=== PATIENT | female | born 1965 | race Caucasian/White ===

== ENCOUNTER 2018-09-12 14:14 | Emergency (ER) | payer MEDICARE, MEDICAID ==
[~2018-09-12] VITALS: Ht 170.2 cm; Wt 106.1 kg
--- NOTE | 2018-09-12 14:45 | ED Upper Extremity ---
General Chief Complaint: Trauma-Non Activation Stated Complaint: FALL; RT HIP/MI WRIST INJ Nursing Triage Note: ARRIVED VIA AMBULATORY WALKING WITHOUT DIFFICULTY. STATES SHE FELL ON THE ICE THIS MORNING CAUSING PAIN IN RIGHT HIP, BILAT HANDS, AND RIGHT KNEE PAIN. Nursing Sepsis Screen: No Definite Risk History of Present Illness Date Seen by Provider: Sep 12, 2018 Time Seen by Provider: 14:29 Initial Comments 53-year-old female who states that she fell about 4 hours ago on the ice. Fell on outstretched hands. She also onto her knees and is now complaining of back pain. She has been able to ambulate without limitation. No bowel or bladder problems. No paresthesias or weakness of her lower extremities. She states that she did not injure her head or have any neck pain. No paresthesias or weakness of her upper extremities. She smokes. Onset: this morning Allergies and Home Medications Allergies Coded Allergies: No Known Drug Allergies (Unverified , 09/12/18) Patient Home Medication List Home Medication List Reviewed: Yes Review of Systems Constitutional: see HPI EENTM: see HPI Respiratory: see HPI Cardiovascular: see HPI Gastrointestinal: no symptoms reported Genitourinary: no symptoms reported Musculoskeletal: see HPI Skin: no symptoms reported Psychiatric/Neurological: No Symptoms Reported Past Zwzbftw-Yitigf-Ckgwbi Hx Past Med/Social Hx: Reviewed Nursing Past Med/Soc Hx Patient Social History Smoking Status: Current Everyday Smoker Recent Foreign Travel: No Contact w/Someone Who Travel: No Recent Infectious Disease Expo: No Physical Exam Vital Signs Vital Signs - First Documented 09/12/18 14:30 Temp 98.0 Pulse 80 Resp 16 B/P (MAP) 126/82 (97) Pulse Ox 98 O2 Delivery Room Air Capillary Refill : Less Than 3 Seconds Height, Weight, BMI Height: 5'7.00" Weight: 234lbs. oz. 106.537456oa; BMI Method:Stated General Appearance: WD/WN, no apparent distress HEENT: PERRL/EOMI, normal ENT inspection, TMs normal, pharynx normal; No scleral icterus (R) Neck: non-tender, full range of motion, supple, normal inspection Cardiovascular: normal peripheral pulses, regular rate, rhythm, no edema, no gallop, no JVD, no murmur Respiratory: normal breath sounds, rhonchi (diffusely) Gastrointestinal: normal bowel sounds, non tender, soft, no organomegaly, no pulsatile mass Back: normal inspection, muscle spasm (right greater than left) Shoulder: normal inspection, non-tender, no evidence of injury Elbow/Forearm: normal inspection, non-tender, no evidence of injury, normal ROM Wrist: Yes normal inspection, Yes no evidence of injury, Yes bone tenderness; No deformity, No ecchymosis; Yes limited ROM Hand: normal inspection, non-tender, no evidence of injury, normal ROM Neurologic/Tendon: normal sensation, normal motor functions, normal tendon functions, responds to pain 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 INDICATION: Fell, back pain. TECHNIQUE: AP, lateral, and spot lateral views were obtained. COMPARISON: There are no prior studies available for comparison. FINDINGS: There are six lumbar-type vertebrae. For the purposes of this exam, the sixth lumbar vertebra was referred to as S1. There may be a mild compression deformity of the superior endplate of L2. If this is a compression deformity, I suspect it is longstanding in nature. However if there is clinical concern regarding an injury to the L2 vertebral body, then MRI would be recommended for further study. No other fracture or acute bony abnormality is identified. There is fairly severe degenerative disc and bony disease at the L4-L5 level. The disc space is narrowed and there is sclerosis of the opposing endplates of L4 and L5. The other intervertebral spaces are fairly well maintained. There is no sign of a paraspinal mass. However, there is an oval 1.5 x 2.2 cm radiopaque density overlying the right upper quadrant. This could be related to a gallstone. This could also be extraneous to the patient. If further evaluation of the right upper quadrant is desired, then ultrasound would be recommended. There is also a well-circumscribed 1.2 x 2.2 cm calcific-like density in the soft tissues lateral to the right ilium. This may be a sequela of prior trauma. This finding could also be secondary to something extraneous to the patient. IMPRESSION: 1. There is no acute bony abnormality noted. 2. The questionable compression deformity of the superior endplate of L2 may be longstanding in nature. If further imaging is desired, then CT would be recommended. 3. There is fairly severe degenerative disc and bony disease at L5-S1. 4. The oval density overlying the right upper quadrant is questionable for cholelithiasis. Recommendations, as above. Dictated on workstation # [id number] Dict: 09/12/18 1523 Trans: 09/12/18 1538 EXAMINATION: Bilateral wrists. INDICATION: Fell. FINDINGS: Three views of each wrist were obtained. There are no prior studies available for comparison. There is no fracture, dislocation, or acute bony abnormality of either wrist joint. There is a well-circumscribed 0.6 x 1.1 cm calcific density adjacent to the distal ulna medially. Most likely, this is a long-standing avulsion fracture of the ulnar styloid. The radiocarpal joints are fairly well maintained. There are two small 2 mm linear radiopaque densities in the soft tissues lateral to the base of the first metacarpal. I suspect these are minute foreign bodies. The soft tissues are otherwise unremarkable. IMPRESSION: 1. There is no evidence for an acute bony abnormality of either wrist. 2. There is a long-standing avulsion fracture of the ulnar styloid. 3. There are two minute radiopaque foreign bodies in the soft tissues adjacent to the lateral aspect of the base of the first metacarpal of the left hand. Dictated on workstation # [id number] Dict: 09/12/18 1521 Trans: 09/12/18 1536 [id number] Interpreted by: STEPHANIE FRAUSTO MD Departure Impression Primary Impression: Strain of wrist, bilateral Additional Impression: Lumbar strain Qualified Codes: S39.012A - Strain of muscle, fascia and tendon of lower back , initial encounter Disposition: 01 HOME, SELF-CARE Condition: Stable Departure-Patient Inst. Referrals: NO,LOCAL PHYSICIAN (PCP) Primary Care Physician recommend follow up in 2-3 days if symptoms continue. Protect as needed. Patient Instructions: Lumbar Muscle Strain (DC), Wrist Sprain (DC) Add. Discharge Instructions: May take ibuprofen as needed for pain. Ice to injured areas as needed. All discharge instructions reviewed with patient and/or family. Voiced understanding. DANIEL HERNANDEZ MD Sep 12, 2018 14:44
[2018-09-12] MEDS ORDERED: OLAN10TA19 (14:47)
[2018-09-12] MEDS ORDERED: ALBUTEROL (14:47)
[2018-09-12] MEDS ORDERED: INSU100I14 (14:47)
[2018-09-12] MEDS ORDERED: ZIPR80CA23 (14:47)
[2018-09-12] MEDS ORDERED: ESCI10TA55 (14:47)
[2018-09-12] MEDS ORDERED: LINA5TAB (14:47)
[2018-09-12] MEDS ORDERED: NFNEB10T (14:47)
--- NOTE | 2018-09-12 15:36 | Diagnostic Imaging Report ---
EXAMINATION: Bilateral wrists. INDICATION: Fell. FINDINGS: Three views of each wrist were obtained. There are no prior studies available for comparison. There is no fracture, dislocation, or acute bony abnormality of either wrist joint. There is a well-circumscribed 0.6 x 1.1 cm calcific density adjacent to the distal ulna medially. Most likely, this is a long-standing avulsion fracture of the ulnar styloid. The radiocarpal joints are fairly well maintained. There are two small 2 mm linear radiopaque densities in the soft tissues lateral to the base of the first metacarpal. I suspect these are minute foreign bodies. The soft tissues are otherwise unremarkable. IMPRESSION: 1. There is no evidence for an acute bony abnormality of either wrist. 2. There is a long-standing avulsion fracture of the ulnar styloid. 3. There are two minute radiopaque foreign bodies in the soft tissues adjacent to the lateral aspect of the base of the first metacarpal of the left hand. Dictated by: Dictated on workstation # [id number]
--- NOTE | 2018-09-12 15:39 | Diagnostic Imaging Report ---
EXAMINATION: Lumbar spine at 2:41 p.m. INDICATION: Fell, back pain. TECHNIQUE: AP, lateral, and spot lateral views were obtained. COMPARISON: There are no prior studies available for comparison. FINDINGS: There are six lumbar-type vertebrae. For the purposes of this exam, the sixth lumbar vertebra was referred to as S1. There may be a mild compression deformity of the superior endplate of L2. If this is a compression deformity, I suspect it is longstanding in nature. However if there is clinical concern regarding an injury to the L2 vertebral body, then MRI would be recommended for further study. No other fracture or acute bony abnormality is identified. There is fairly severe degenerative disc and bony disease at the L4-L5 level. The disc space is narrowed and there is sclerosis of the opposing endplates of L4 and L5. The other intervertebral spaces are fairly well maintained. There is no sign of a paraspinal mass. However, there is an oval 1.5 x 2.2 cm radiopaque density overlying the right upper quadrant. This could be related to a gallstone. This could also be extraneous to the patient. If further evaluation of the right upper quadrant is desired, then ultrasound would be recommended. There is also a well-circumscribed 1.2 x 2.2 cm calcific-like density in the soft tissues lateral to the right ilium. This may be a sequela of prior trauma. This finding could also be secondary to something extraneous to the patient. IMPRESSION: 1. There is no acute bony abnormality noted. 2. The questionable compression deformity of the superior endplate of L2 may be longstanding in nature. If further imaging is desired, then CT would be recommended. 3. There is fairly severe degenerative disc and bony disease at L5-S1. 4. The oval density overlying the right upper quadrant is questionable for cholelithiasis. Recommendations, as above. Dictated by: Dictated on workstation # [id number]
[2018-09-12 15:56] VITALS: BP 126/82
== END 2018-09-12 15:56 | disposition home or self-care (01) ==
LOC: ER FS 14:20
DX: S39.012A Strain of muscle, fascia and tendon of lower back, initial encounter (principal); S66.911A Strain of unspecified muscle, fascia and tendon at wrist and hand level, right hand, initial encounter; S66.912A Strain of unspecified muscle, fascia and tendon at wrist and hand level, left hand, initial encounter; F17.200 Nicotine dependence, unspecified, uncomplicated; W00.0XXA Fall on same level due to ice and snow, initial encounter
CPT/HCPCS: 72100

== ENCOUNTER 2018-09-18 20:55 | Emergency (ER) | payer MEDICARE, MEDICAID ==
[~2018-09-18] VITALS: Ht 170.2 cm; Wt 114.8 kg
[~2018-09-18 20:55] MED LIST: ALBUTEROL; ESCI10TA55; INSU100I14; LINA5TAB; NFNEB10T; OLAN10TA19; ZIPR80CA23
--- OUTSIDE RECORDS SUMMARY | 2018-09-18 21:07 | XMS REPORT | Continuity of Care Document ---
Author Author [facility] Organization [facility] Address Unknown Phone Unavailable Allergies Active Description Code Type Severity Reaction Onset Reported/Identified Relationship to Patient Clinical Status Yes No Known Medication Allergies Drug N/A N/A Yes No Known Drug Allergies [id number] Drug Allergy Unknown N/A 09/12/2018 Medications There is no data. 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, Unspecified 07/05/2010 [facility] POLICE GUARD, HEATHER V15.82 TOBACCOISM 07/05/2010 [facility] POLICE GUARD, HEATHER 278.01 OBESITY MORBID 07/05/2010 [facility] POLICE GUARD, HEATHER 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, Unspecified 07/05/2010 BRANDEE POLICE GUARD, HEATHER V15.82 TOBACCOISM 07/05/2010 [facility] POLICE GUARD, HEATHER 278.01 OBESITY MORBID 07/05/2010 BRANDEE POLICE GUARD, HEATHER 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, Unspecified 07/05/2010 BRANDEE POLICE GUARD, HEATHER V15.82 TOBACCOISM 07/05/2010 BRANDEE POLICE GUARD, HEATHER 278.01 OBESITY MORBID 07/05/2010 BRANDEE POLICE GUARD, HEATHRE 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, Unspecified 07/05/2010 BRANDEE POLICE GUARD, HEATHER V15.82 TOBACCOISM 07/05/2010 [facility] POLICE GUARD, HEATHER 278.01 OBESITY MORBID 07/05/2010 [facility] KYLE, HEATHER 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, Unspecified 07/05/2010 BRANDEE POLICE GUARD, HEATHER V15.82 TOBACCOISM 07/05/2010 BRANDEE POLICE GUARD, HEATHER 278.01 OBESITY MORBID 07/05/2010 BRANDEE POLICE GUARD, HEATHER 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, Unspecified 07/05/2010 BRANDEE POLICE GUARD, HEATHER V15.82 TOBACCOISM 07/05/2010 [facility] POLICE GUARD, MARIANNA 278.01 OBESITY MORBID 07/05/2010 G[facility] POLICE GUARD, MARIANNA 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, Unspecified 07/05/2010 GOVIND POLICE GUARD, MARIANNA V15.82 TOBACCOISM 07/05/2010 GOVIND POLICE GUARD, MARIANNA 278.01 OBESITY MORBID 07/05/2010 G[facility] POLICE GUARD, MARIANNA 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, Unspecified 07/05/2010 GOVIND POLICE GUARD, MARIANNA V15.82 TOBACCOISM 07/07/2010 [facility] POLICE GUARD, HEATHER 280.9 Anemia Hypochromic / Microcytic 07/07/2010 [facility] POLICE GUARD, HEATHER 796.2 Prehypertension 07/07/2010 [facility] POLICE GUARD, HEATHER V04.81 Influenza Vaccine 07/07/2010 BRANDEE POLICE GUARD, HEATHER V68.89 Encounters For Other Specified Administrative Purpose 07/07/2010 [facility] POLICE GUARD, HEATHER V72.31 Routine Pelvic Exam 07/07/2010 [facility] POLICE GUARD, HEATHER 280.9 Anemia Hypochromic / Microcytic 07/07/2010 [facility] POLICE GUARD, HEATHER 796.2 Prehypertension 07/07/2010 [facility] POLICE GUARD, HEATHER V04.81 Influenza Vaccine 07/07/2010 BRANDEE POLICE GUARD, HEATHER V68.89 Encounters For Other Specified Administrative Purpose 07/07/2010 BRANDEE POLICE GUARD, HEATHER V72.31 Routine Pelvic Exam 07/07/2010 BRANDEE POLICE GUARD, HEATHER 280.9 Anemia Hypochromic / Microcytic 07/07/2010 BRANDEE POLICE GUARD, HEATHER 796.2 Prehypertension 07/07/2010 BRANDEE POLICE GUARD, HEATHER V04.81 Influenza Vaccine 07/07/2010 BRANDEE POLICE GUARD, HEATHER V68.89 Encounters For Other Specified Administrative Purpose 07/07/2010 BRANDEE POLICE GUARD, HEATHER V72.31 Routine Pelvic Exam 07/07/2010 [facility] POLICE GUARD, HEATHER 280.9 Anemia Hypochromic / Microcytic 07/07/2010 BRANDEE POLICE GUARD, HEATHER 796.2 Prehypertension 07/07/2010 BRANDEE POLICE GUARD, HEATHER V04.81 Influenza Vaccine 07/07/2010 BRANDEE POLICE GUARD, HEATHER V68.89 Encounters For Other Specified Administrative Purpose 07/07/2010 BRANDEE POLICE GUARD, HEATHER V72.31 Routine Pelvic Exam 07/07/2010 BRANDEE POLICE GUARD, HEATHER 280.9 Anemia Hypochromic / Microcytic 07/07/2010 [facility] POLICE GUARD, HEATHER 796.2 Prehypertension 07/07/2010 [facility] POLICE GUARD, HEATHER V04.81 Influenza Vaccine 07/07/2010 BRANDEE POLICE GUARD, HEATHER V68.89 Encounters For Other Specified Administrative Purpose 07/07/2010 BRANDEE POLICE GUARD, HEATHER V72.31 Routine Pelvic Exam 07/07/2010 BRANDEE POLICE GUARD, HEATHER 280.9 Anemia Hypochromic / Microcytic 07/07/2010 BRANDEE POLICE GUARD, HEATHER 796.2 Prehypertension 07/07/2010 [facility] POLICE GUARD, HEATHER V04.81 Influenza Vaccine 07/07/2010 BRANDEE POLICE GUARD, HEATHER V68.89 Encounters For Other Specified Administrative Purpose 07/07/2010 BRANDEE POLICE GUARD, HEATHER V72.31 Routine Pelvic Exam 07/07/2010 BRANDEE POLICE GUARD, HEATHER 280.9 Anemia Hypochromic / Microcytic 07/07/2010 BRANDEE POLICE GUARD, HEATHER 796.2 Prehypertension 07/07/2010 BRANDEE POLICE GUARD, HEATHER V04.81 Influenza Vaccine 07/07/2010 BRANDEE POLICE GUARD, HEATHER V68.89 Encounters For Other Specified Administrative Purpose 07/07/2010 BRANDEE POLICE GUARD, HEATHER V72.31 Routine Pelvic Exam 07/07/2010 G[facility] POLICE GUARDMARIANNA 280.9 Anemia Hypochromic / Microcytic 07/07/2010 GOVIND POLICE GUARD, MARIANNA 796.2 Prehypertension 07/07/2010 GOVIND POLICE GUARD MARIANNA V04.81 Influenza Vaccine 07/07/2010 GOVIND POLICE GUARD MARIANNA V68.89 Encounters For Other Specified Administrative Purpose 07/07/2010 GOVIND POLICE GUARDMARIANNA V72.31 Routine Pelvic Exam 07/07/2010 GOVIND POLICE GUARDMARIANNA Sunshine 280.9 Anemia Hypochromic / Microcytic 07/07/2010 GOVIND POLICE GUARDMARIANNA Sunshien 796.2 Prehypertension 07/07/2010 GOVIND POLICE GUARDMARIANNA V04.81 Influenza Vaccine 07/07/2010 GOVIND POLICE GUARDMARIANNA V68.89 Encounters For Other Specified Administrative Purpose 07/07/2010 GOVIND POLICE GUARDMARIANNA V72.31 Routine Pelvic Exam 10/20/2010 BRANDEE POLICE GUARD, HEATHER 112.1 Candidiasis, Of Vulva And Vagina 10/20/2010 BRANDEE POLICE GUARD, HEATHER 599.0 Uti 10/20/2010 BRANDEE POLICE GUARD, HEATHER 112.1 Candidiasis, Of Vulva And Vagina 10/20/2010 BRANDEE POLICE GUARD, HEATHER 599.0 Uti 10/20/2010 BRANDEE POLICE GUARD, HEATHER 112.1 Candidiasis, Of Vulva And Vagina 10/20/2010 BRANDEE POLICE GUARD, HEATHER 599.0 Uti 10/20/2010 BRANDEE POLICE GUARD, HEATHER 112.1 Candidiasis, Of Vulva And Vagina 10/20/2010 BRANDEE POLICE GUARD, HEATHER 599.0 Uti 10/20/2010 BRANDEE POLICE GUARD, HEATHER 112.1 Candidiasis, Of Vulva And Vagina 10/20/2010 BRANDEE POLICE GUARD, HEATHER 599.0 Uti 10/20/2010 BRANDEE POLICE GUARD, HEATHER 112.1 Candidiasis, Of Vulva And Vagina 10/20/2010 BRANDEE POLICE GUARD, HEATHER 599.0 Uti 10/20/2010 BRANDEE POLICE GUARD, HEATHER 112.1 Candidiasis, Of Vulva And Vagina 10/20/2010 BRANDEE POLICE GUARD, HEATHER 599.0 Uti 10/20/2010 GOVIND POLICE GUARD, MARIANNA 112.1 Candidiasis, Of Vulva And Vagina 10/20/2010 GOVIND POLICE GUARD, MARIANNA 599.0 Uti 10/20/2010 GOVIND POLICE GUARDENE 112.1 Candidiasis, Of Vulva And Vagina 10/20/2010 GOVIND POLICE GUARD, MARIANNA 599.0 Uti 10/24/2010 [facility] POLICE GUARD, HEATHER 250.00 DIABETES MELLITUS TYPE 2 10/24/2010 BRANDEE POLICE GUARD, HEATHER 466.0 Bronchitis, Acute 10/24/2010 BRANDEE POLICE GUARD, HEATHER 496 PULMONARY OBSTRUCTIVE DISORDERS 10/24/2010 BRANDEE POLICE GUARD, HEATHER 250.00 DIABETES MELLITUS TYPE 2 10/24/2010 BRANDEE POLICE GUARD, HEATHER 466.0 Bronchitis, Acute 10/24/2010 BRANDEE POLICE GUARD, HEATHER 496 PULMONARY OBSTRUCTIVE DISORDERS 10/24/2010 BRANDEE POLICE GUARD, HEATHER 250.00 DIABETES MELLITUS TYPE 2 10/24/2010 BRANDEE POLICE GUARD, HEATHER 466.0 Bronchitis, Acute 10/24/2010 BRANDEE POLICE GUARD, HEATHER 496 PULMONARY OBSTRUCTIVE DISORDERS 10/24/2010 BRANDEE POLICE GUARD, HEATHER 250.00 DIABETES MELLITUS TYPE 2 10/24/2010 BRANDEE POLICE GUARD, HEATHER 466.0 Bronchitis, Acute 10/24/2010 BRANDEE POLICE GUARD, HEATHER 496 PULMONARY OBSTRUCTIVE DISORDERS 10/24/2010 BRANDEE POLICE GUARD, HEATHER 250.00 DIABETES MELLITUS TYPE 2 10/24/2010 BRANDEE POLICE GUARD, HEATHER 466.0 Bronchitis, Acute 10/24/2010 BRANDEE POLICE GUARD, HEATHER 496 PULMONARY OBSTRUCTIVE DISORDERS 10/24/2010 BRANDEE POLICE GUARD, HEATHER 250.00 DIABETES MELLITUS TYPE 2 10/24/2010 BRANDEE POLICE GUARD, HEATHER 466.0 Bronchitis, Acute 10/24/2010 BRANDEE POLICE GUARD, HEATHER 496 PULMONARY OBSTRUCTIVE DISORDERS 10/24/2010 BRANDEE POLICE GUARD, HEATHER 250.00 DIABETES MELLITUS TYPE 2 10/24/2010 BRANDEE POLICE GUARD, HEATHER 466.0 Bronchitis, Acute 10/24/2010 BRANDEE POLICE GUARD, HEATHER 496 PULMONARY OBSTRUCTIVE DISORDERS 10/24/2010 GOVIND POLICE GUARD, MARIANNA 250.00 DIABETES MELLITUS TYPE 2 10/24/2010 GOVIND POLICE GUARD, MARIANNA 466.0 Bronchitis, Acute 10/24/2010 GOVIND POLICE GUARD, MARIANNA 496 PULMONARY OBSTRUCTIVE DISORDERS 10/24/2010 GOVIND POLICE GUARD, MARIANNA 250.00 DIABETES MELLITUS TYPE 2 10/24/2010 GOVIND POLICE GUARD, MARIANNA 466.0 Bronchitis, Acute 10/24/2010 GOVIND POLICE GUARD, MARIANNA 496 PULMONARY OBSTRUCTIVE DISORDERS 05/12/2011 BRANDEE POLICE GUARD, HEATHER 703.0 Ingrowing Nail 05/12/2011 BRANDEE POLICE GUARD, HEATHER 726.91 EXOSTOSIS OF UNSPECIFIED SITE 05/12/2011 BRANDEE POLICE GUARD, HEATHER 703.0 Ingrowing Nail 05/12/2011 BRANDEE POLICE GUARD, HEATHER 726.91 EXOSTOSIS OF UNSPECIFIED SITE 05/12/2011 BRANDEE POLICE GUARD, HEATHER 703.0 Ingrowing Nail 05/12/2011 BRANDEE POLICE GUARD, HEATHER 726.91 EXOSTOSIS OF UNSPECIFIED SITE 05/12/2011 BRANDEE POLICE GUARD, HEATHER 703.0 Ingrowing Nail 05/12/2011 BRANDEE POLICE GUARD, HEATHER 726.91 EXOSTOSIS OF UNSPECIFIED SITE 05/12/2011 BRANDEE POLICE GUARD, HEATHER 703.0 Ingrowing Nail 05/12/2011 BRANDEE POLICE GUARD, HEATHER 726.91 EXOSTOSIS OF UNSPECIFIED SITE 05/12/2011 BRANDEE POLICE GUARD, HEATHER 703.0 Ingrowing Nail 05/12/2011 BRANDEE POLICE GUARD, HEATHER 726.91 EXOSTOSIS OF UNSPECIFIED SITE 05/12/2011 [facility] POLICE GUARD, HEATHER 703.0 Ingrowing Nail 05/12/2011 BRANDEE POLICE GUARD, HEATHER 726.91 EXOSTOSIS OF UNSPECIFIED SITE 05/12/2011 G[facility] POLICE GUARD, MARIANNA 703.0 Ingrowing Nail 05/12/2011 GOVIND POLICE GUARD, MARIANNA 726.91 EXOSTOSIS OF UNSPECIFIED SITE 05/12/2011 GOVIND POLICE GUARD, MARIANNA 703.0 Ingrowing Nail 05/12/2011 GOVIND POLICE GUARD, MARIANNA 726.91 EXOSTOSIS OF UNSPECIFIED SITE 06/02/2011 BRANDEE POLICE GUARD, HEATHER 078.12 Plantar Wart 06/02/2011 BRANDEE POLICE GUARD, HEATHER 078.12 Plantar Wart 06/02/2011 BRANDEE POLICE GUARD, HEATHER 078.12 Plantar Wart 06/02/2011 BRANDEE POLICE GUARD, HEATHER 078.12 Plantar Wart 06/02/2011 BRANDEE POLICE GUARD, HEATHER 078.12 Plantar Wart 06/02/2011 BRANDEE POLICE GUARD, HEATHER 078.12 Plantar Wart 06/02/2011 BRANDEE POLICE GUARD, HEATHER 078.12 Plantar Wart 06/02/2011 GOVIND POLICE GUARD, MARIANNA 078.12 Plantar Wart 06/02/2011 GOVIND POLICE GUARD, MARIANNA 078.12 Plantar Wart 07/05/2011 BRANDEE POLICE GUARD, HEATHER 466.0 ACUTE BRONCHITIS 07/05/2011 BRANDEE POLICE GUARD, HEATHER 466.0 ACUTE BRONCHITIS 07/05/2011 BRANDEE POLICE GUARD, HEATHER 466.0 ACUTE BRONCHITIS 07/05/2011 BRANDEE POLICE GUARD, HEATHER 466.0 ACUTE BRONCHITIS 07/05/2011 BRANDEE POLICE GUARD, HEATHER 466.0 ACUTE BRONCHITIS 07/05/2011 BRANDEE POLICE GUARD, HEATHER 466.0 ACUTE BRONCHITIS 07/05/2011 BRANDEE POLICE GUARD, HEATHER 466.0 ACUTE BRONCHITIS 07/05/2011 GOVIND POLICE GUARD, MARIANNA 466.0 ACUTE BRONCHITIS 07/05/2011 GOVIND POLICE GUARD, MARIANNA 466.0 ACUTE BRONCHITIS 11/20/2011 BRANDEE POLICE GUARD, HEATHER 682.9 CELLULITIS 11/20/2011 BRANDEE POLICE GUARD, HEATHER 682.9 CELLULITIS 11/20/2011 BRANDEE POLICE GUARD, HEATHER 682.9 CELLULITIS 11/20/2011 BRANDEE POLICE GUARD, HEATHER 682.9 CELLULITIS 11/20/2011 BRANDEE POLICE GUARD, HEATHER 682.9 CELLULITIS 11/20/2011 BRANDEE POLICE GUARD, HEATHER 682.9 CELLULITIS 11/20/2011 BRANDEE POLICE GUARD, HEATHER 682.9 CELLULITIS 11/20/2011 GOVIND POLICE GUARD, MARIANNA 682.9 CELLULITIS 11/20/2011 GOVIND POLICE GUARD, MARIANNA 682.9 CELLULITIS 12/22/2011 BRANDEE POLICE GUARD, HEATHER 401.1 ESSENTIAL HYPERTENSION BENIGN 12/22/2011 BRANDEE POLICE GUARD, HEATHER 401.1 ESSENTIAL HYPERTENSION BENIGN 12/22/2011 BRANDEE POLICE GUARD, HEATHER 401.1 ESSENTIAL HYPERTENSION BENIGN 12/22/2011 ALEX IRVIN APRNEN 401.1 ESSENTIAL HYPERTENSION BENIGN 12/22/2011 BRANDEE ULLOANALEXEN 401.1 ESSENTIAL HYPERTENSION BENIGN 12/22/2011 BRANDEE ULLOANALEXEN 401.1 ESSENTIAL HYPERTENSION BENIGN 12/22/2011 BRANDEE ULLOANALEXEN 401.1 ESSENTIAL HYPERTENSION BENIGN 12/22/2011 GOVIND POLICE GUARDMARIANNA 401.1 ESSENTIAL HYPERTENSION BENIGN 12/22/2011 GOVIND POLICE GUARDMARIANNA 401.1 ESSENTIAL HYPERTENSION BENIGN 04/09/2012 BRANDEE POLICE GUARD, HEATHER 272.2 HYPERLIPIDEMIA 04/09/2012 BRANDEEALEX JONES APRNEN V04.81 Need For Prophylactic Vaccination And Inoculation Against Influenza 04/09/2012 BRANDEE POLICE GUARDHEATHER Sunshine 272.2 HYPERLIPIDEMIA 04/09/2012 BRANDEE POLICE GUARD, HEATHER V04.81 Need For Prophylactic Vaccination And Inoculation Against Influenza 04/09/2012 BRANDEE POLICE GUARD, HEATHER 272.2 HYPERLIPIDEMIA 04/09/2012 BRANDEE POLICE GUARD, HEATHER V04.81 Need For Prophylactic Vaccination And Inoculation Against Influenza 04/09/2012 BRANDEE POLICE GUARD, HEATHER 272.2 HYPERLIPIDEMIA 04/09/2012 BRANDEE POLICE GUARD, HEATHER V04.81 Need For Prophylactic Vaccination And Inoculation Against Influenza 04/09/2012 BRANDEE POLICE GUARD, HEATHER 272.2 HYPERLIPIDEMIA 04/09/2012 BRANDEE POLICE GUARD, EHATHER V04.81 Need For Prophylactic Vaccination And Inoculation Against Influenza 04/09/2012 BRANDEE POLICE GUARD, HEATHER 272.2 HYPERLIPIDEMIA 04/09/2012 BRANDEE POLICE GUARD, HEATHER V04.81 Need For Prophylactic Vaccination And Inoculation Against Influenza 04/09/2012 BRANDEE POLICE GUARDHEATHER Sunshine 272.2 HYPERLIPIDEMIA 04/09/2012 BRANDEE POLICE GUARD, HEATHER V04.81 Need For Prophylactic Vaccination And Inoculation Against Influenza 04/09/2012 MARIANNA FAUST APRN 272.2 HYPERLIPIDEMIA 04/09/2012 MARIANNA FAUST APRN V04.81 Need For Prophylactic Vaccination And Inoculation Against Influenza 04/09/2012 GOVIND MARIANNA WRIGHT 272.2 HYPERLIPIDEMIA 04/09/2012 MARIANNA FAUST APRN V04.81 Need For Prophylactic Vaccination And Inoculation Against Influenza 05/14/2012 BRANDEE HEATHER WRIGHT 682.9 Cellulitis/abscess 05/14/2012 BRANDEE POLICE GUARD, HEATHER 682.9 Cellulitis/abscess 05/14/2012 BRANDEE POLICE GUARD, HEATHER 682.9 Cellulitis/abscess 05/14/2012 BRANDEE POLICE GUARD, HEATHER 682.9 Cellulitis/abscess 05/14/2012 BRANDEE POLICE GUARD, HEATHER 682.9 Cellulitis/abscess 05/14/2012 BRANDEE POLICE GUARD, HEATHER 682.9 Cellulitis/abscess 05/14/2012 BRANDEE POLICE GUARD, HEATHER 682.9 Cellulitis/abscess 05/14/2012 GOVIND POLICE GUARD, MARIANNA 682.9 Cellulitis/abscess 05/14/2012 GOVIND POLICE GUARD, MARIANNA 682.9 Cellulitis/abscess 06/24/2012 BRANDEE POLICE GUARD, HEATHER 112.1 Candidiasis, Of Vulva And Vagina 06/24/2012 BRANDEE POLICE GUARD, HEATHER 112.1 Candidiasis, Of Vulva And Vagina 06/24/2012 BRANDEE POLICE GUARD, HEATHER 112.1 Candidiasis, Of Vulva And Vagina 06/24/2012 BRANDEE POLICE GUARD, HEATHER 112.1 Candidiasis, Of Vulva And Vagina 06/24/2012 BRANDEE POLICE GUARD, HEATHER 112.1 Candidiasis, Of Vulva And Vagina 06/24/2012 BRANDEE POLICE GUARD, HEATHER 112.1 Candidiasis, Of Vulva And Vagina 06/24/2012 BRANDEE POLICE GUARD, HEATHER 112.1 Candidiasis, Of Vulva And Vagina 06/24/2012 GOVIND POLICE GUARD, MARIANNA 112.1 Candidiasis, Of Vulva And Vagina 06/24/2012 GOVIND POLICE GUARD, MARIANNA 112.1 Candidiasis, Of Vulva And Vagina 06/28/2012 BRANDEE POLICE GUARD, HEATHER 110.1 Onychomycosis 06/28/2012 BRANDEE POLICE GUARD, HEATHER 703.8 Other Specified Diseases Of Nail 06/28/2012 BRANDEE POLICE GUARD, HEATHER 110.1 Onychomycosis 06/28/2012 BRANDEE POLICE GUARD, HEATHER 703.8 Other Specified Diseases Of Nail 06/28/2012 BRANDEE POLICE GUARD, HEATHER 110.1 Onychomycosis 06/28/2012 BRANDEE POLICE GUARD, HEATHER 703.8 Other Specified Diseases Of Nail 06/28/2012 BRANDEE POLICE GUARD, HEATHER 110.1 Onychomycosis 06/28/2012 BRANDEE POLICE GUARD, HEATHER 703.8 Other Specified Diseases Of Nail 06/28/2012 BRANDEE POLICE GUARD, HEATHER 110.1 Onychomycosis 06/28/2012 BRANDEE POLICE GUARD, HEATHER 703.8 Other Specified Diseases Of Nail 06/28/2012 BRANDEE POLICE GUARD, HEATHER 110.1 Onychomycosis 06/28/2012 BRANDEE POLICE GUARD, HEATHER 703.8 Other Specified Diseases Of Nail 06/28/2012 BRANDEE POLICE GUARD, HEATHER 110.1 Onychomycosis 06/28/2012 BRANDEE POLICE GUARD, HEATHER 703.8 Other Specified Diseases Of Nail 06/28/2012 GOVIND POLICE GUARD, MARIANNA 110.1 Onychomycosis 06/28/2012 GOVIND POLICE GUARD, MARIANNA 703.8 Other Specified Diseases Of Nail 06/28/2012 GOVIND POLICE GUARD, MARIANNA 110.1 Onychomycosis 06/28/2012 GOVIND POLICE GUARD, MARIANNA 703.8 Other Specified Diseases Of Nail 08/21/2012 BRANDEE POLICE GUARD, HEATHER 682.9 Cellulitis/abscess 08/21/2012 BRANDEE POLICE GUARD, HEATHER V72.31 Gynecological Exam 08/21/2012 BRANDEE POLICE GUARD, HEATHER 682.9 Cellulitis/abscess 08/21/2012 BRANDEE POLICE GUARD, HEATHER V72.31 Gynecological Exam 08/21/2012 BRANDEE POLICE GUARD, HEATHER 682.9 Cellulitis/abscess 08/21/2012 BRANDEE POLICE GUARD, HEATEHR V72.31 Gynecological Exam 08/21/2012 BRANDEE POLICE GUARD, HEATHER 682.9 Cellulitis/abscess 08/21/2012 BRANDEE POLICE GUARD, HEATHER V72.31 Gynecological Exam 08/21/2012 BRANDEE POLICE GUARD, HEATHER 682.9 Cellulitis/abscess 08/21/2012 BRANDEE POLICE GUARD, HEATHER V72.31 Gynecological Exam 08/21/2012 BRANDEE POLICE GUARD, HEATHER 682.9 Cellulitis/abscess 08/21/2012 BRANDEE POLICE GUARD, HEATHER V72.31 Gynecological Exam 08/21/2012 BRANDEE POLICE GUARD, HEATHER 682.9 Cellulitis/abscess 08/21/2012 BRANDEE POLICE GUARD, HEATHER V72.31 Gynecological Exam 08/21/2012 GOVIND POLICE GUARD, MARIANNA 682.9 Cellulitis/abscess 08/21/2012 GOVIND POLICE GUARD, MARIANNA V72.31 Gynecological Exam 08/21/2012 GOVIND POLICE GUARD, MARIANNA 682.9 Cellulitis/abscess 08/21/2012 GOVIND POLICE GUARD, MARIANNA V72.31 Gynecological Exam 10/08/2012 BRANDEE POLICE GUARD, HEATHER 466.0 Bronchitis, Acute 10/08/2012 BRANDEE POLICE GUARD, HEATHER 466.0 Bronchitis, Acute 10/08/2012 BRANDEE POLICE GUARD, HEATHER 466.0 Bronchitis, Acute 10/08/2012 BRANDEE POLICE GUARD, HEATHER 466.0 Bronchitis, Acute 10/08/2012 BRANDEE POLICE GUARD, HEATHER 466.0 Bronchitis, Acute 10/08/2012 BRANDEE POLICE GUARD, HEATHER 466.0 Bronchitis, Acute 10/08/2012 BRANDEE POLICE GUARD, HEATHER 466.0 Bronchitis, Acute 10/08/2012 GOVIND POLICE GUARD, MARIANNA 466.0 Bronchitis, Acute 10/08/2012 GOVIND POLICE GUARD, MARIANNA 466.0 Bronchitis, Acute 12/05/2012 BRANDEE POLICE GUARD, HEATHER 599.0 Uti 12/05/2012 BRANDEE POLICE GUARD, HEATHER 599.0 Uti 12/05/2012 BRANDEE POLICE GUARD, HEATHER 599.0 Uti 12/05/2012 BRANDEE POLICE GUARD, HEATHER 599.0 Uti 12/05/2012 BRANDEE POLICE GUARD, HEATHER 599.0 Uti 12/05/2012 BRANDEE POLICE GUARD, HEATHER 599.0 Uti 12/05/2012 BRANDEE POLICE GUARD, HEATHER 599.0 Uti 12/05/2012 GOVIND POLICE GUARD, MARIANNA 599.0 Uti 12/05/2012 GOVIND POLICE GUARD, MARIANNA 599.0 Uti 05/21/2013 BRANDEE POLICE GUARD, HEATHER 285.9 ANEMIA, UNSPECIFIED 05/21/2013 BRANDEE POLICE GUARD, HEATHER 285.9 ANEMIA, UNSPECIFIED 05/21/2013 BRANDEE POLICE GUARD, HEATHER 285.9 ANEMIA, UNSPECIFIED 05/21/2013 BRANDEE POLICE GUARD, HEATHER 285.9 ANEMIA, UNSPECIFIED 05/21/2013 BRANDEE POLICE GUARD, HEATHER 285.9 ANEMIA, UNSPECIFIED 05/21/2013 BRANDEE POLICE GUARD, HEATHER 285.9 ANEMIA, UNSPECIFIED 05/21/2013 BRANDEE POLICE GUARD, HEATHER 285.9 ANEMIA, UNSPECIFIED 05/21/2013 GOVIND POLICE GUARD MARIANNA 285.9 ANEMIA, UNSPECIFIED 08/07/2013 BRANDEE POLICE GUARD, HEATHER 682.5 CELLULITIS AND ABSCESS OF BUTTOCK 08/07/2013 BRANDEE POLICE GUARD, HEATHER 682.5 CELLULITIS AND ABSCESS OF BUTTOCK 08/07/2013 BRANDEE POLICE GUARD, HEATHER 682.5 CELLULITIS AND ABSCESS OF BUTTOCK 08/07/2013 BRANDEE POLICE GUARD, HEATHER 682.5 CELLULITIS AND ABSCESS OF BUTTOCK 08/07/2013 BRANDEE POLICE GUARD, HEATHER 682.5 CELLULITIS AND ABSCESS OF BUTTOCK 08/07/2013 BRANDEE POLICE GUARD, HEATHER 682.5 CELLULITIS AND ABSCESS OF BUTTOCK 08/07/2013 BRANDEE POLICE GUARD, HEATHER 682.5 CELLULITIS AND ABSCESS OF BUTTOCK 12/12/2013 BRANDEE POLICE GUARD, HEATHER 250.02 DIABETES MELLITUS WITHOUT MENTION OF COMPLICATION TYPE II OR UNSPECIFIED TYPE UNCONTROLLED 12/12/2013 BRANDEE POLICE GUARD, HEATHER 250.02 DIABETES MELLITUS WITHOUT MENTION OF COMPLICATION TYPE II OR UNSPECIFIED TYPE UNCONTROLLED 12/12/2013 BRANDEE POLICE GUARD, HEATHER 250.02 DIABETES MELLITUS WITHOUT MENTION OF COMPLICATION TYPE II OR UNSPECIFIED TYPE UNCONTROLLED 12/12/2013 BRANDEE POLICE GUARD, HEATHER 250.02 DIABETES MELLITUS WITHOUT MENTION OF COMPLICATION TYPE II OR UNSPECIFIED TYPE UNCONTROLLED 04/25/2018 Halle Zapata MD N13.1 Hydronephrosis with ureteral stricture, not elsewhere classified 04/25/2018 Halle Zapata MD N13.30 Hydronephrosis, right 04/25/2018 Halle Zapata MD R31.2 Other microscopic hematuria 04/25/2018 Halle Zapata MD R31.9 Hematuria 05/29/2018 Halle Zapata MD 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, right ureter 06/28/2018 Halle Zapata MD K43.9 Hernia, Ventral 06/28/2018 Halle Zapata MD Z68.36 BMI 36-36.9 07/03/2018 Halle Zapata MD E66.01 Morbid obesity due to excess calories 07/03/2018 Halle Zapata MD Z68.38 BMI 38-38.9 07/10/2018 Halle Zapata MD E66.01 Morbid obesity due to excess calories 07/10/2018 Halle Zapata MD Z68.35 BMI 35-35.9 07/11/2018 Halle Zapata MD E66.01 Morbid obesity due to excess calories 07/24/2018 Halle Zapata MD E66.01 Morbid obesity due to excess calories 07/26/2018 Halle Zapata MD E66.01 Morbid obesity due to excess calories 07/26/2018 Halle Zapata MD T88.8xxA Other specified complications of surgical and medical care, not elsewhere classified, initial encounter 09/04/2018 Halle Zapata MD E66.01 Morbid obesity due to excess calories 09/04/2018 Halle Zapata MD Z68.36 BMI 36-36.9 09/05/2018 Halle Zapata MD E66.01 Morbid obesity due to excess calories 09/12/2018 DANIEL HERNANDEZ MD, Ot F17.200 NICOTINE DEPENDENCE, UNSPECIFIED, UNCOMP 09/12/2018 DANIEL HERNANDEZ MD, Ot M54.5 LOW BACK PAIN 09/12/2018 DANIEL HERNANDEZ MD, Ot S39.012A STRAIN OF MUSCLE, FASCIA AND TENDON OF L 09/12/2018 DANIEL HERNANDEZ MD, Ot S66.911A STRAIN OF UNSP MUSC/FASC/TEND AT WRS/HND 09/12/2018 DANIEL HERNANDEZ MD, Ot S66.912A STRAIN OF UNSP MUSC/FASC/TEND AT WRS/HND 09/12/2018 DANIEL HERNANDEZ MD, Ot W00.0XXA FALL ON SAME LEVEL DUE TO ICE AND SNOW, 09/13/2018 DANIEL HERNANDEZ MD, Ot F17.200 NICOTINE DEPENDENCE, UNSPECIFIED, UNCOMP 09/13/2018 DANIEL HERNANDEZ MD, Ot M54.5 LOW BACK PAIN 09/13/2018 DANIEL HERNANDEZ MD, Ot S39.012A STRAIN OF MUSCLE, FASCIA AND TENDON OF L 09/13/2018 MARY BATEMAN, DANIEL Roberson Ot S66.911A STRAIN OF UNSP MUSC/FASC/TEND AT WRS/HND 09/13/2018 DANIEL HERNANDEZ MD Ot S66.912A STRAIN OF UNSP MUSC/FASC/TEND AT WRS/HND 09/13/2018 DANIEL HERNANDEZ MD Ot W00.0XXA FALL ON SAME LEVEL DUE TO ICE AND SNOW, Procedures Code Description [place] [address] GLUCOSE 05/08/2013 13773 HEMOGLOBIN A1C 05/08/2013 G0008 ADMIN FEE (MEDICARE) INFLUENZA 05/14/2013 18905 CBC - CBC WITH DIFF - LC 05/15/2013 82339 COMP - COMPREHENSIVE PANEL - LC 05/15/2013 83058 LIPID - LIPID PANEL - LC 05/15/2013 97411 TSH - TSH - LC 05/15/2013 43074 MALB - MICROALBUMIN - LC 05/15/2013 76656 GLUCOSE 08/11/2013 34026 HEMOGLOBIN A1C 08/11/2013 14503 CBC WITH DIFF 08/12/2013 35693 GLUCOSE 10/07/2013 4000F TOBACCO USE TXMNT COUNSELING 10/13/2013 77068 PULSE OXIMETRY 12/12/2013 A4614 PEAK FLOW 12/12/2013 42054 GLUCOSE 12/12/2013 12239 HEMOGLOBIN A1C 12/12/2013 Pulmonary Pulmonary Function Test 01/13/2014 A4614 PEAK FLOW 02/10/2014 [id number] PULSE OXIMETRY 02/10/2014 [id number] GLUCOSE 02/10/2014 Endocrino Endocrinology 02/13/2014 Pulmonary Pulmonology, Pulmonology 03/13/2014 [id number] PULSE OXIMETRY 04/14/2014 A4614 PEAK FLOW 04/14/2014 Results Test Result Range TRICHOMONAS RAPID ANTIGEN - 09/02/14 09:00 TRICHOMONAS RAPID ANTIGEN NEGATIVE NEGATIVE CHLAMYDIA TRACH. BY AMP DNA - 09/02/14 09:00 CHLAMYDIA TRACH. BY AMP DNA NEGATIVE NEGATIVE HUMAN PAPILLOMAVIRUS - 09/02/14 09:00 HPV RESULT POSITIVE NEGATIVE PAP LIQUID PAP SCREENING - 09/02/14 09:00 PAP RESULT ASCUS NEGATIVE CULTURE GENITAL - 09/02/14 09:00 SOURCE SOURCE: VAGINAL REQUISITION NOTE REQUISITION NOTE: NONE CULTURE RESULTS CULTURE RESULTS: AND SCANT NORMAL GENITAL TRACT REGINALD A REPORT STATUS REPORT STATUS: 09/05/2014 FINAL CBC WITH DIFF - 09/02/14 12:45 WBC 8.7 10*3/uL 4.0-10.8 RBC 4.62 10*6/uL 4.20-5.40 HGB 11.9 g/dL 12.0-16.0 HCT 38.7 % 37-47 MCV 84 fL 81-99 MCH 26 pg 26-34 MCHC 31 g/dL 31-37 PLATELET COUNT 254 10*3/uL 150-400 RDWCV 18.6 % 11.5-14.5 DIFF TYPE AUTOMATED DIFF NEUTROPHIL % 66 % 36-66 LYMPHOCYTE % 26 % 24-44 MONOCYTE % 6 % 1-10 EOSINOPHIL % 1 % 0-6 BASOPHIL % 1 % 0-2 ABS. NEUTROPHILS 5.8 10*3/uL 1.55-7.13 ABS. LYMPHOCYTES 2.3 10*3/uL 1.0-4.8 ABS. MONOCYTES 0.5 10*3/uL 0.4-1.08 ABS. EOSINOPHILS 0.1 10*3/uL 0.0-0.65 ABS. BASOPHILS 0.1 10*3/uL 0.0-0.11 ABSOLUTE NUCLEATED RBC 0.10 10*3/uL COMPREHENSIVE METABOLIC PANEL - 09/02/14 12:45 POTASSIUM 4.6 mmol/L 3.5-5.1 CALCIUM 9.5 mg/dL 8.6-10.6 GLUCOSE 154 mg/dL 70-115 BUN 13 mg/dL 8-22 CREATININE 1.0 mg/dL 0.6-1.1 SODIUM 141 mmol/L 136-145 CHLORIDE 106 mmol/L 98-110 CO2 25 mmol/L 22-29 GFR ESTIMATED NOT AFR/AM 59 GFR ESTIMATED IF AFR/AM >60 ALT-SGPT 15 U/L 0-55 AST-SGOT 13 U/L 5-34 TOTAL PROTEIN,SERUM 7.6 g/dL 6-8.3 ALBUMIN 4.3 g/dL 3.6-5.3 ALKALINE PHOSPHATASE 90 U/L 40-150 TOTAL BILIRUBIN 0.3 mg/dL 0.2-1.2 ANION GAP 10 5-15 GLOBULIN, CALCULATED 3.3 g/dL A/G RATIO 1.3 ratio 1-1.8 LIPID PANEL W/REFLEX LDL - 09/02/14 12:45 TRIGLYCERIDES 174 mg/dL 20-170 CHOLESTEROL 239 mg/dL 140-200 HDL 38 mg/dL 35-60 LDL 166 mg/dL 60-130 TSH WITH REFLEX TO FREE T4 - 09/02/14 12:45 TSH 2.60 m[iU]/mL 0.35-4.90 HEMOGLOBIN A1C - 09/02/14 12:45 HEMOGLOBIN A1C 7.3 % <5.6 ESTIMATED AVERAGE GLUCOSE 163 mg/dL COMPREHENSIVE METABOLIC PANEL - 10/15/14 14:35 POTASSIUM 4.5 mmol/L 3.5-5.1 CALCIUM 9.4 mg/dL 8.6-10.6 GLUCOSE 177 mg/dL 70-115 BUN 11 mg/dL 8-22 CREATININE 0.9 mg/dL 0.6-1.1 SODIUM 140 mmol/L 136-145 CHLORIDE 107 mmol/L 98-110 CO2 23 mmol/L 22-29 GFR ESTIMATED NOT AFR/AM >60 GFR ESTIMATED IF AFR/AM >60 ALT-SGPT 13 U/L 0-55 AST-SGOT 11 U/L 5-34 TOTAL PROTEIN,SERUM 7.4 g/dL 6-8.3 ALBUMIN 4.2 g/dL 3.6-5.3 ALKALINE PHOSPHATASE 91 U/L 40-150 TOTAL BILIRUBIN 0.2 mg/dL 0.2-1.2 ANION GAP 10 5-15 GLOBULIN, CALCULATED 3.2 g/dL A/G RATIO 1.3 ratio 1-1.8 Encounters ACCT No. Visit Date/Time Discharge Status Pt. Type Provider Facility Loc./Unit Complaint [id number] 09/16/2018 13:19:06 ACT Unknown Halle Zapata MD [id number] 08/26/2018 07:22:56 08/26/2018 23:59:59 DIS Outpatient DANAY SORIA V [facility] [id number] 05/30/2018 08:41:17 05/30/2018 23:59:59 DIS Outpatient LINDA ZAPATA [facility] [id number] 04/25/2018 12:24:37 04/25/2018 23:59:59 CLS Preadmit LINDA ZAPATA [facility] ops [id number] 08/06/2018 13:35:03 Document Registration [id number] 07/05/2018 09:35:35 ACT V AMADOU ROBERT [facility] [id number] 06/18/2018 06:13:13 Inpatient JODILINDA Halle [facility] ops [id number] 09/12/2018 14:20:00 09/12/2018 15:56:00 DIS Emergency DANIEL HERNANDEZ MD [facility] ER FS FALL; RT HIP/MI WRIST INJ [id number] 09/18/2018 20:56:00 ACT Emergency NOEL DICK DO [facility] ER FS HIGH BLOOD SUGAR, SOB [facility] 10/15/2014 15:34:45 ACT Document Registration [id number] 04/14/2014 08:59:00 04/14/2014 11:05:00 DIS Outpatient HEATHER IRVIN APRN [id number] 02/10/2014 09:57:00 02/10/2014 23:59:59 CLS Outpatient HEATHER IRVIN APRN [id number] 02/10/2014 09:57:00 02/10/2014 23:59:59 CLS Outpatient HEATHER IRVIN APRN [id number] 12/12/2013 10:38:00 12/12/2013 23:59:59 CLS Outpatient HEATHER IRVIN APRN [id number] 10/07/2013 14:37:00 10/13/2013 20:05:00 DIS Outpatient HEATHER IRVIN APRN [id number] 10/07/2013 14:37:00 10/07/2013 23:59:59 CLS Outpatient HEATHER IRVIN APRN [id number] 08/11/2013 10:11:00 08/11/2013 13:49:00 DIS Outpatient HEATHER IRVIN APRN [id number] 05/08/2013 09:56:00 05/08/2013 23:59:59 CLS Outpatient MARIANNA FAUST APRN [id number] 01/08/2013 08:25:00 01/08/2013 23:59:59 CLS Outpatient MARIANNA FAUST APRN [id number] 10/15/2014 15:34:45 10/15/2014 23:59:00 DIS Outpatient SONY CAMPO [facility] [id number] 08/12/2014 12:31:00 08/12/2014 14:34:00 DIS Emergency [facility] FED [id number] 06/21/2014 16:47:00 06/21/2014 17:52:00 DIS [facility] FED [id number] 09/02/2014 00:00:00 Document Registration
[2018-09-18] MEDS ORDERED: NS IV 1000 ML 1,000 ML IV STA ×2 (21:36→23:05)
[2018-09-18 22:22] LABS: HEMOGLOBIN 11.2 G/DL (11.5-16.0); MEAN PLATELET VOLUME 10.8 FL (7.4-10.4); RED CELL DISTRIBUTION WIDTH 18.1 % (10.0-14.5)
--- NOTE | 2018-09-18 22:42 | NUR ---
Pt. is up to the bathroom to void.
[2018-09-18] MEDS ORDERED: IOPAMIDOL 61% 100 ML (ISOVUE 300) VIAL IV ONE (22:45)
[2018-09-18] MEDS ORDERED: CATHETER FLUSH 10 ML SYR IV PRN (22:45)
[2018-09-18 22:48] LABS: BUN/CREATININE RATIO 19; CARBON DIOXIDE 24 MMOL/L (21-32); CHLORIDE 90 MMOL/L (98-107); CREATININE SERUM 1.11 MG/DL (0.60-1.30); GFR ESTIMATED 52; POTASSIUM 5.6 MMOL/L (3.6-5.0); SODIUM 128 MMOL/L (135-145)
[2018-09-18 22:49] LABS: CALCIUM 9.3 MG/DL (8.5-10.1); GLUCOSE 786 MG/DL (70-105)
[2018-09-18 22:50] LABS: ALANINE AMINOTRANSFERASE 15 U/L (0-55); ALBUMIN 3.9 GM/DL (3.2-4.5); ALKALINE PHOSPHATASE 167 U/L (40-136); BILIRUBIN,TOTAL 0.2 MG/DL (0.1-1.0); LIPASE 89 U/L (8-78); TOTAL PROTEIN 7.8 GM/DL (6.4-8.2)
[2018-09-18] MEDS ORDERED: inSUlin (REGULAR) HUMAN 1 UNIT/0.01 ML (CHARGE PER UNIT) IV STA (23:05)
--- NOTE | 2018-09-18 23:10 | ED General ---
General Chief Complaint: Respiratory Problems Stated Complaint: HIGH BLOOD SUGAR, SOB Nursing Triage Note: Pt. c/o being SOB, having abd. pain, light headed always thirsty and having her 1st chemo treatment today. Pt. stated her blood sugar was unreadable at home, as it is here as well. Nursing Sepsis Screen: No Definite Risk History of Present Illness Date Seen by Provider: Sep 18, 2018 Time Seen by Provider: 21:28 This is a 53-year-old female with a history of urinary tract cancer her and diabetes here for hyperglycemia as well as right sided abdominal pain. She had chemotherapy today, and was treated with steroids during that treatment. She says that her blood sugar reading at home was "high" just today, but for the last few days it's been approximately normal. She feels thirsty, and she is also having waxing and waning diffuse right sided abdominal pain that radiates around to the right side of the back. No weakness numbness or tingling. No vomiting or change in bowel movements or change in urination. No fever or chills. No chest pain or shortness of breath. Allergies and Home Medications Allergies Coded Allergies: No Known Drug Allergies (Unverified , 09/18/18) Patient Home Medication List Home Medication List Reviewed: Yes Review of Systems Review of Systems Constitutional: see HPI EENTM: no symptoms reported Respiratory: no symptoms reported Cardiovascular: no symptoms reported Gastrointestinal: see HPI Genitourinary: no symptoms reported Musculoskeletal: no symptoms reported Skin: no symptoms reported Psychiatric/Neurological: No Symptoms Reported Hematologic/Lymphatic: No Symptoms Reported Immunological/Allergic: no symptoms reported Past Ugtxuwn-Esaeef-Qlxdjm Hx Patient Social History Drug of Choice: POT Recent Foreign Travel: No Contact w/Someone Who Travel: No Recent Infectious Disease Expo: No Recent Hopitalizations: No Physical Abuse: No Sexual Abuse: No Fear: No Past Medical History Surgeries: Yes (X1 KIDNEY ET PART OF URETER, AND BLADDER REMOVED DUE TO CA. HERNIA, ) Adenoidectomy, Gallbladder, Hysterectomy, Tonsillectomy, Tubal Ligation Respiratory: No Asthma, COPD, Emphysema Cardiac: Yes Hypertension Neurological: No Genitourinary: Yes (PART OF KIDNEY REMOVED) Endocrine: Yes Diabetes, Non-Insulin dep Cancer: Yes (URETER) Bladder, Kidney Integumentary: No Physical Exam Vital Signs Vital Signs - First Documented 09/18/18 21:19 Temp 97.8 Pulse 99 Resp 18 B/P (MAP) 132/86 (101) Pulse Ox 93 O2 Flow Rate 2.00 Capillary Refill : Less Than 3 Seconds Height, Weight, BMI Height: 5'7.00" Weight: 253lbs. oz. 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 Norm as Tested; No Abnormal Gait Skin: Warm/Dry Progress/Results/Core Measures Suspected Sepsis Recent Fever Within 48 Hours: No Infection Criteria Present: None New/Unexplained Altered Menta: No Sepsis Screen: No Definite Risk SIRS Temperature:97.8 Pulse: 99 Respiratory Rate: 18 Laboratory Tests 09/18/18 22:05: White Blood Count 8.0 Blood Pressure 132 /86 Mean: 101 Laboratory Tests 09/18/18 22:05: Creatinine 1.11, Platelet Count 269, Total Bilirubin 0.2 09/19/18 00:50: Creatinine 0.98 Results/Orders Lab Results Laboratory Tests Test 09/18/18 21:24 09/18/18 22:05 09/19/18 00:34 09/19/18 00:50 Range/Units Glucometer > 600 *H > 600 *H 70-110 MG/DL White Blood Count 8.0 4.3-11.0 10^3/uL Red Blood Count 4.31 L 4.35-5.85 10^6/uL Hemoglobin 11.2 L 11.5-16.0 G/DL Hematocrit 37 35-52 % Mean Corpuscular Volume 847 H 80-99 FL Mean Corpuscular Hemoglobin 26 25-34 PG Mean Corpuscular Hemoglobin Concent 31 L 32-36 G/DL Red Cell Distribution Width 18.1 H 10.0-14.5 % Platelet Count 269 130-400 10^3/uL Mean Platelet Volume 10.8 H 7.4-10.4 FL Sodium Level 128 L 128 L 135-145 MMOL/L Potassium Level 5.6 H 4.7 3.6-5.0 MMOL/L Chloride Level 90 L 92 L 98-107 MMOL/L Carbon Dioxide Level 24 20 L 21-32 MMOL/L Anion Gap 14 16 H 5-14 MMOL/L Blood Urea Nitrogen 21 H 22 H 7-18 MG/DL Creatinine 1.11 0.98 0.60-1.30 MG/DL Estimat Glomerular Filtration Rate 52 60 BUN/Creatinine Ratio 19 22 Glucose Level 786 *H 680 *H 70-105 MG/DL Calcium Level 9.3 8.6 8.5-10.1 MG/DL Corrected Calcium 9.4 8.5-10.1 MG/DL Total Bilirubin 0.2 0.1-1.0 MG/DL Aspartate Amino Transf (AST/SGOT) 13 5-34 U/L Alanine Aminotransferase (ALT/SGPT) 15 0-55 U/L Alkaline Phosphatase 167 H 40-136 U/L Troponin T < 6 <=10 NG/L Total Protein 7.8 6.4-8.2 GM/DL Albumin 3.9 3.2-4.5 GM/DL Lipase 89 H 8-78 U/L Test 09/19/18 03:58 Range/Units Glucometer 465 *H 70-110 MG/DL My Orders Orders - NOEL DICK DO Urinalysis (09/18/18 21:36) Ct Abd/Pelv W (Appendicitis) (09/18/18 21:36) Ekg Tracing (09/18/18 21:36) Troponin T (09/18/18 21:36) Cbc No Diff (09/18/18 21:36) Comprehensive Metabolic Panel (09/18/18 21:36) Lipase (09/18/18 21:36) Ns Iv 1000 Ml (Sodium Chloride 0.9%) (09/18/18 21:36) Urine Culture (09/18/18 21:36) Iopamidol 61% Injection (Isovue 300 61% (09/18/18 22:45) Sodium Chloride Flush (Catheter Flush Sy (09/18/18 22:45) Ns Iv 1000 Ml (Sodium Chloride 0.9%) (09/18/18 23:05) Insulin (Regular) Human (Humulin R (Per (09/18/18 23:05) Chest 1 View Ap/Pa Only (09/18/18 23:19) Albuterol Pre-Mix Nebs (Rt) (Proventil (09/18/18 23:40) Svn Small Volume Nebulizer (09/18/18 23:40) Basic Metabolic Panel (09/19/18 00:40) Insulin (Regular) Human (Humulin R (Per (09/19/18 01:37) Ns Iv 1000 Ml (Sodium Chloride 0.9%) (09/19/18 01:39) Medications Given in ED Current Medications Medications Dose Ordered Sig/Yoselyn Route Start Time Stop Time Status Last Admin Dose Admin Iopamidol 50 ml ONCE ONCE IV 09/18/18 22:45 09/19/18 03:52 DC 09/18/18 23:06 50 ML Sodium Chloride 10 ml NEEDED PRN IV 09/18/18 22:45 09/18/18 23:06 10 ML Vital Signs/I&O 09/18/18 21:19 Temp 97.8 Pulse 99 Resp 18 B/P (MAP) 132/86 (101) Pulse Ox 93 O2 Flow Rate 2.00 Capillary Refill : Less Than 3 Seconds Blood Pressure Mean: 101 Progress Note #1: Progress Note This is a 53-year-old female with a history of urinary tract cancer, status post chemotherapy today, here with hyperglycemia and issues with ongoing right flank pain for some period of time. Abdomen is benign however given her history we will obtain a CT of the abdomen and pelvis with IV contrast. We will check a chemistry panel, we will treat with fluids and we will treat with insulin once potassium has returned. Progress Note #2: Progress Note CT shows low-density collection in the right lower quadrant abdominal wall that is concerning for an abscess. When I examined the patient there is no overlying erythema, no fluctuance, no induration, there is a well-healed surgical incision , there is only mild tenderness. An abscess clinically seems less likely. She says that she would likely be able to follow-up with her surgeon tomorrow if she is able to be discharged. Progress Note #3: Progress Note Despite 2 L of saline and 10 units of IV insulin patient's blood sugar is still severely elevated. We will give 2 more liters of saline and 15 units of IV insulin now. We still await urinalysis, apparently patient has urinated but did not give a specimen. Progress Note #4: Progress Note Blood glucose is improving although still significantly elevated. Patient has been in relating that before to the bathroom but she is feeling somewhat lightheaded and she actually just said of near syncope where she needed to lie down on the ground. She obviously cannot go home. Admission at the facility where she had her surgeries is most appropriate as she can also be evaluated by the surgeon for this possible abdominal wall abscess seen on CT. Again she is not having fevers, no leukocytosis, and her clinical exam is not highly suggestive of an abscess and so I had deferred empiric antibiotics to this point. Of note [facility] is on diversion right now and so would not have been an option. I have paged out the hospitalist Dr. Cesar at [facility] and I await a call back as of 4:10 AM. Progress Note #5: Progress Note Patient's surgeon Dr. Lara and hospitalist Dr. Cesar recommended to the transfer center that patient be sent to [place] as she would likely need a higher level of care than what is available at their facility. I have paged [facility] and await callback. Diagnostic Imaging Diagonstic Imaging: Xray Comments EP interpretation: Trachea is midline allowing for mild rotation. No obvious bony abnormality. Cardiomediastinal silhouette is normal. Diaphragmatic borders are sharp, costophrenic angles are sharp. There is poor with the tip at the cavoatrial junction. No pneumothoraces or focal infiltrates. Reviewed: Reviewed by Me Critical Care Note Critical Care Start Time: 01:44 Stop Time: 02:19 Total Time (minutes) 35 Progress Critical care time is exclusive of time spent on separately billable procedures. Departure Impression Primary Impression: Hyperglycemia Additional Impressions: Pre-syncope Abdominal wall abscess Disposition: XFER SHT-TRM HOSP Condition: Stable Transfer Time Spoke to Accepting Phy: 05:50 Transfer Progress Notes Pt accepted at [facility] by Dr Agarwal Method of Transfer: EMS Departure-Patient Inst. Referrals: NO,LOCAL PHYSICIAN (PCP) Primary Care Physician NOEL DICK DO Sep 18, 2018 23:10
[2018-09-18] MEDS ORDERED: RT-ALBUTEROL SULF 2.5 MG/3 ML PRE-MIX VIAL INH STA (23:40)
--- NOTE | 2018-09-19 00:40 | NUR ---
This RN rechecked the blood sugar by poc and it was high. Doctor notified and a new order was written.
[2018-09-19 01:28] LABS: CREATININE SERUM 0.98 MG/DL (0.60-1.30); POTASSIUM 4.7 MMOL/L (3.6-5.0)
[2018-09-19 01:31] LABS: CALCIUM 8.6 MG/DL (8.5-10.1)
[2018-09-19] MEDS ORDERED: inSUlin (REGULAR) HUMAN 1 UNIT/0.01 ML (CHARGE PER UNIT) IV STA (01:37)
[2018-09-19] MEDS ORDERED: NS IV 1000 ML 1,000 ML IV STA (01:39)
--- NOTE | 2018-09-19 03:07 | NUR ---
Pt. was walking to the bathroom and almost fell grabbing the er1 door. She was assisted to the bathroom with a wheelchair. She has been incontinent 3 times.
--- NOTE | 2018-09-19 04:09 | NUR ---
Pt. blood sugar was 465. She was assisted to the bathroom became dizzy and was assisted to the floor. Doctor aware and the patient will be transferred to [facility].
--- NOTE | 2018-09-19 05:06 | NUR ---
[facility] declined to take the patient at this time so the doctor talked with the patient and the patient will go to [facility].
--- NOTE | 2018-09-19 05:44 | NUR ---
Pt. assisted to the bathroom via wheelchair. Pt will be going to [facility].
--- NOTE | 2018-09-19 07:30 | NUR ---
Pt's BS at time of discharge 444.
[2018-09-19 07:31] VITALS: BP 143/75
--- NOTE | 2018-09-19 07:38 | Diagnostic Imaging Report ---
INDICATION: Shortness of breath. FINDINGS: Heart size is normal. There is some minimal venous congestion. The mediastinum is unremarkable. There is no pleural effusion or pneumothorax. Evpbot-q-ralq catheter overlies the left hemithorax. IMPRESSION: Mild central pulmonary venous congestion. Dictated by: Dictated on workstation # [id number]
--- NOTE | 2018-09-19 07:42 | Diagnostic Imaging Report ---
PROCEDURE: CT abdomen and pelvis with contrast, rule out appendicitis. TECHNIQUE: Multiple contiguous axial images were obtained through the abdomen and pelvis after the administration of intravenous contrast. INDICATION: Shortness of breath and abdominal pain No prior examinations are available for comparison. FINDINGS: Heart size is normal. The lung bases are clear. There may be some mild fatty infiltration of the liver. Gallbladder is surgically absent. There is no biliary ductal dilatation. Spleen is normal. Pancreas, adrenal glands and left kidney are normal in appearance. Right kidney appears to be surgically absent. Aorta is nonaneurysmal. Bowel gas pattern is nonspecific. There is a complex fluid collection containing some gas bubbles anterior to the right rectus abdominis muscle inferiorly. This measures roughly 10 cm transverse by 2.2 cm in thickness. Questionable 9 mm mass in the bladder. There is no ascites. There is no free air. There are no focal inflammatory changes. Specifically there is no definitive CT evidence of appendicitis. There are degenerative changes in the spine. IMPRESSION: Complex low-density fluid collection containing small amount of gas along the anterior aspect of the rectus abdominis muscle in the right lower quadrant. This is suspect for abscess. Questionable 9 mm soft tissue density extending off the superior anterior aspect of the bladder wall. Malignant neoplasm cannot be excluded. Recommend further evaluation with cystoscopy and/or cystogram. Mildly fatty infiltration of the liver. No other acute abnormality of the abdomen or pelvis. Specifically there is no CT evidence of appendicitis. Dictated by: Dictated on workstation # [id number]
== END 2018-09-19 07:30 | disposition short-term general hospital (02) ==
LOC: EDUNIT# 20:55 → ER FS 20:56
DX: E11.65 Type 2 diabetes mellitus with hyperglycemia (principal); R55 Syncope and collapse; L02.211 Cutaneous abscess of abdominal wall; C67.9 Malignant neoplasm of bladder, unspecified; J43.9 Emphysema, unspecified; I10 Essential (primary) hypertension; Z85.528 Personal history of other malignant neoplasm of kidney; Z92.21 Personal history of antineoplastic chemotherapy; Z98.890 Other specified postprocedural states; Z90.89 Acquired absence of other organs; Z90.710 Acquired absence of both cervix and uterus; Z98.51 Tubal ligation status
CPT/HCPCS: 36415; 71045; 74177; 80048; 80053; 82962; 83690; 84484; 85027; 87088

== ENCOUNTER 2018-10-13 17:00 | Emergency (ER) | payer MEDICARE, MEDICAID ==
[~2018-10-13] VITALS: Ht 170.2 cm; Wt 105.2 kg
--- OUTSIDE RECORDS SUMMARY | 2018-10-13 17:14 | XMS REPORT | Continuity of Care Document ---
Author Author [facility] Organization [facility] Address Unknown Phone Unavailable Allergies Active Description Code Type Severity Reaction Onset Reported/Identified Relationship to Patient Clinical Status Yes No Known Medication Allergies Drug N/A N/A Yes No Known Drug Allergies [id number] Drug Allergy Unknown N/A 09/18/2018 Medications There is no data. 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, Unspecified 07/05/2010 [facility] KYLE, HEATHER V15.82 TOBACCOISM 07/05/2010 [facility] KYLE, HEATHER 278.01 OBESITY MORBID 07/05/2010 [facility] KYLE, HEATHER 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, Unspecified 07/05/2010 [facility] SERVICE ATTENDANT, HEATHER V15.82 TOBACCOISM 07/05/2010 [facility] SERVICE ATTENDANT, HEATHER 278.01 OBESITY MORBID 07/05/2010 [facility] SERVICE ATTENDANT, HEATHER 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, Unspecified 07/05/2010 BRANDEE SERVICE ATTENDANT, HEATHER V15.82 TOBACCOISM 07/05/2010 [facility] SERVICE ATTENDANT, HEATHER 278.01 OBESITY MORBID 07/05/2010 BRANDEE SERVICE ATTENDANT, HEATHER 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, Unspecified 07/05/2010 BRANDEE SERVICE ATTENDANT, HEATHER V15.82 TOBACCOISM 07/05/2010 BRANDEE SERVICE ATTENDANT, HEATHER 278.01 OBESITY MORBID 07/05/2010 BRANDEE SERVICE ATTENDANT, HEATHER 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, Unspecified 07/05/2010 BRANDEE SERVICE ATTENDANT, HEATHER V15.82 TOBACCOISM 07/05/2010 [facility] SERVICE ATTENDANT, HEATHER 278.01 OBESITY MORBID 07/05/2010 [facility] KYLE, HEATHER 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, Unspecified 07/05/2010 BRANDEE SERVICE ATTENDANT, HEATHER V15.82 TOBACCOISM 07/05/2010 BRANDEE SERVICE ATTENDANT, HEATHER 278.01 OBESITY MORBID 07/05/2010 BRANDEE SERVICE ATTENDANT, HEATHER 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, Unspecified 07/05/2010 BRANDEE SERVICE ATTENDANT, HEATHER V15.82 TOBACCOISM 07/05/2010 [facility] SERVICE ATTENDANT, MARIANNA 278.01 OBESITY MORBID 07/05/2010 GOVIND SERVICE ATTENDANT, MARIANNA 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, Unspecified 07/05/2010 GOVIND SERVICE ATTENDANT, MARIANNA V15.82 TOBACCOISM 07/05/2010 GOVIND SERVICE ATTENDANT, MARIANNA 278.01 OBESITY MORBID 07/05/2010 GOVIND SERVICE ATTENDANT, MARIANNA 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, Unspecified 07/05/2010 GOVIND SERVICE ATTENDANT, MARIANNA V15.82 TOBACCOISM 07/07/2010 [facility] SERVICE ATTENDANT, HEATHER 280.9 Anemia Hypochromic / Microcytic 07/07/2010 [facility] SERVICE ATTENDANT, HEATHER 796.2 Prehypertension 07/07/2010 [facility] SERVICE ATTENDANT, HEATHER V04.81 Influenza Vaccine 07/07/2010 BRANDEE SERVICE ATTENDANT, HEATHER V68.89 Encounters For Other Specified Administrative Purpose 07/07/2010 [facility] SERVICE ATTENDANT, HEATHER V72.31 Routine Pelvic Exam 07/07/2010 [facility] SERVICE ATTENDANT, HEATHER 280.9 Anemia Hypochromic / Microcytic 07/07/2010 [facility] SERVICE ATTENDANT, HEATHER 796.2 Prehypertension 07/07/2010 [facility] SERVICE ATTENDANT, HEATHER V04.81 Influenza Vaccine 07/07/2010 BRANDEE SERVICE ATTENDANT, HEATHER V68.89 Encounters For Other Specified Administrative Purpose 07/07/2010 BRANDEE SERVICE ATTENDANT, HEATHER V72.31 Routine Pelvic Exam 07/07/2010 BRANDEE SERVICE ATTENDANT, HEATHER 280.9 Anemia Hypochromic / Microcytic 07/07/2010 BRANDEE SERVICE ATTENDANT, HEATHER 796.2 Prehypertension 07/07/2010 BRANDEE SERVICE ATTENDANT, HEATHER V04.81 Influenza Vaccine 07/07/2010 BRANDEE SERVICE ATTENDANT, HEATHER V68.89 Encounters For Other Specified Administrative Purpose 07/07/2010 BRANDEE SERVICE ATTENDANT, HEATHER V72.31 Routine Pelvic Exam 07/07/2010 [facility] SERVICE ATTENDANT, HEATHER 280.9 Anemia Hypochromic / Microcytic 07/07/2010 BRANDEE SERVICE ATTENDANT, HEATHER 796.2 Prehypertension 07/07/2010 BRANDEE SERVICE ATTENDANT, HEATHER V04.81 Influenza Vaccine 07/07/2010 BRANDEE SERVICE ATTENDANT, HEATHER V68.89 Encounters For Other Specified Administrative Purpose 07/07/2010 BRANDEE SERVICE ATTENDANT, HEATHER V72.31 Routine Pelvic Exam 07/07/2010 BRANDEE SERVICE ATTENDANT, HEATHER 280.9 Anemia Hypochromic / Microcytic 07/07/2010 [facility] SERVICE ATTENDANT, HEATHER 796.2 Prehypertension 07/07/2010 [facility] SERVICE ATTENDANT, HEATHER V04.81 Influenza Vaccine 07/07/2010 BRANDEE SERVICE ATTENDANT, HEATHER V68.89 Encounters For Other Specified Administrative Purpose 07/07/2010 BRANDEE SERVICE ATTENDANT, HEATHER V72.31 Routine Pelvic Exam 07/07/2010 BRANDEE SERVICE ATTENDANT, HEATHER 280.9 Anemia Hypochromic / Microcytic 07/07/2010 BRANDEE SERVICE ATTENDANT, HEATHER 796.2 Prehypertension 07/07/2010 [facility] SERVICE ATTENDANT, HEATHER V04.81 Influenza Vaccine 07/07/2010 BRANDEE SERVICE ATTENDANT, HEATHER V68.89 Encounters For Other Specified Administrative Purpose 07/07/2010 BRANDEE SERVICE ATTENDANT, HEATHER V72.31 Routine Pelvic Exam 07/07/2010 BRANDEE SERVICE ATTENDANT, HEATHER 280.9 Anemia Hypochromic / Microcytic 07/07/2010 BRANDEE SERVICE ATTENDANT, HEATHER 796.2 Prehypertension 07/07/2010 BRANDEE SERVICE ATTENDANT, HEATHER V04.81 Influenza Vaccine 07/07/2010 BRANDEE SERVICE ATTENDANT, HEATHER V68.89 Encounters For Other Specified Administrative Purpose 07/07/2010 BRANDEE SERVICE ATTENDANT, HEATHER V72.31 Routine Pelvic Exam 07/07/2010 [facility] SERVICE ATTENDANTMARIANNA 280.9 Anemia Hypochromic / Microcytic 07/07/2010 GOVIND SERVICE ATTENDANT, MARIANNA 796.2 Prehypertension 07/07/2010 GOVIND SERVICE ATTENDANT MARIANNA V04.81 Influenza Vaccine 07/07/2010 GOVIND SERVICE ATTENDANT MARIANNA V68.89 Encounters For Other Specified Administrative Purpose 07/07/2010 GOVIND SERVICE ATTENDANTMARIANNA V72.31 Routine Pelvic Exam 07/07/2010 GOVIND SERVICE ATTENDANTMARIANNA Sunshine 280.9 Anemia Hypochromic / Microcytic 07/07/2010 GOVIND SERVICE ATTENDANTMARIANNA Sunshine 796.2 Prehypertension 07/07/2010 GOVIND SERVICE ATTENDANTMARIANNA V04.81 Influenza Vaccine 07/07/2010 GOVIND SERVICE ATTENDANTMARIANNA V68.89 Encounters For Other Specified Administrative Purpose 07/07/2010 GOVIND SERVICE ATTENDANTMARIANNA V72.31 Routine Pelvic Exam 10/20/2010 BRANDEE SERVICE ATTENDANT, HEATHER 112.1 Candidiasis, Of Vulva And Vagina 10/20/2010 BRANDEE SERVICE ATTENDANT, HEATHER 599.0 Uti 10/20/2010 BRANDEE SERVICE ATTENDANT, HEATHER 112.1 Candidiasis, Of Vulva And Vagina 10/20/2010 BRANDEE SERVICE ATTENDANT, HEATHER 599.0 Uti 10/20/2010 BRANDEE SERVICE ATTENDANT, HEATHER 112.1 Candidiasis, Of Vulva And Vagina 10/20/2010 BRANDEE SERVICE ATTENDANT, HEATHER 599.0 Uti 10/20/2010 BRANDEE SERVICE ATTENDANT, HEATHER 112.1 Candidiasis, Of Vulva And Vagina 10/20/2010 BRANDEE SERVICE ATTENDANT, HEATHER 599.0 Uti 10/20/2010 BRANDEE SERVICE ATTENDANT, HEATHER 112.1 Candidiasis, Of Vulva And Vagina 10/20/2010 BRANDEE SERVICE ATTENDANT, HEATHER 599.0 Uti 10/20/2010 BRANDEE SERVICE ATTENDANT, HEATHER 112.1 Candidiasis, Of Vulva And Vagina 10/20/2010 BRANDEE SERVICE ATTENDANT, HEATHER 599.0 Uti 10/20/2010 BRANDEE SERVICE ATTENDANT, HEATHER 112.1 Candidiasis, Of Vulva And Vagina 10/20/2010 BRANDEE SERVICE ATTENDANT, HEATHER 599.0 Uti 10/20/2010 GOVIND SERVICE ATTENDANT, MARIANNA 112.1 Candidiasis, Of Vulva And Vagina 10/20/2010 GOVIND SERVICE ATTENDANT, MARIANNA 599.0 Uti 10/20/2010 GOVIND SERVICE ATTENDANTENE 112.1 Candidiasis, Of Vulva And Vagina 10/20/2010 GOVIND SERVICE ATTENDANT, MARIANNA 599.0 Uti 10/24/2010 [facility] SERVICE ATTENDANT, HEATHER 250.00 DIABETES MELLITUS TYPE 2 10/24/2010 BRANDEE SERVICE ATTENDANT, HEATHER 466.0 Bronchitis, Acute 10/24/2010 BRANDEE SERVICE ATTENDANT, HEATHER 496 PULMONARY OBSTRUCTIVE DISORDERS 10/24/2010 BRANDEE SERVICE ATTENDANT, HEATHER 250.00 DIABETES MELLITUS TYPE 2 10/24/2010 BRANDEE SERVICE ATTENDANT, HEATHER 466.0 Bronchitis, Acute 10/24/2010 BRANDEE SERVICE ATTENDANT, HEATHER 496 PULMONARY OBSTRUCTIVE DISORDERS 10/24/2010 BRANDEE SERVICE ATTENDANT, HEATHER 250.00 DIABETES MELLITUS TYPE 2 10/24/2010 BRANDEE SERVICE ATTENDANT, HEATHER 466.0 Bronchitis, Acute 10/24/2010 BRANDEE SERVICE ATTENDANT, HEATHER 496 PULMONARY OBSTRUCTIVE DISORDERS 10/24/2010 BRANDEE SERVICE ATTENDANT, HEATHER 250.00 DIABETES MELLITUS TYPE 2 10/24/2010 BRANDEE SERVICE ATTENDANT, HEATHER 466.0 Bronchitis, Acute 10/24/2010 BRANDEE SERVICE ATTENDANT, HEATHER 496 PULMONARY OBSTRUCTIVE DISORDERS 10/24/2010 BRANDEE SERVICE ATTENDANT, HEATHER 250.00 DIABETES MELLITUS TYPE 2 10/24/2010 BRANDEE SERVICE ATTENDANT, HEATHER 466.0 Bronchitis, Acute 10/24/2010 BRANDEE SERVICE ATTENDANT, HEATHER 496 PULMONARY OBSTRUCTIVE DISORDERS 10/24/2010 BRANDEE SERVICE ATTENDANT, HEATHER 250.00 DIABETES MELLITUS TYPE 2 10/24/2010 BRANDEE SERVICE ATTENDANT, HEATHER 466.0 Bronchitis, Acute 10/24/2010 BRANDEE SERVICE ATTENDANT, HEATHER 496 PULMONARY OBSTRUCTIVE DISORDERS 10/24/2010 BRANDEE SERVICE ATTENDANT, HEATHER 250.00 DIABETES MELLITUS TYPE 2 10/24/2010 BRANDEE SERVICE ATTENDANT, HEATHER 466.0 Bronchitis, Acute 10/24/2010 BRANDEE SERVICE ATTENDANT, HEATHER 496 PULMONARY OBSTRUCTIVE DISORDERS 10/24/2010 GOVIND SERVICE ATTENDANT, MARIANNA 250.00 DIABETES MELLITUS TYPE 2 10/24/2010 GOVIND SERVICE ATTENDANT, MARIANNA 466.0 Bronchitis, Acute 10/24/2010 GOVIND SERVICE ATTENDANT, MARIANNA 496 PULMONARY OBSTRUCTIVE DISORDERS 10/24/2010 GOVIND SERVICE ATTENDANT, MARIANNA 250.00 DIABETES MELLITUS TYPE 2 10/24/2010 GOVIND SERVICE ATTENDANT, MARIANNA 466.0 Bronchitis, Acute 10/24/2010 GOVIND SERVICE ATTENDANT, MARIANNA 496 PULMONARY OBSTRUCTIVE DISORDERS 05/12/2011 BRANDEE SERVICE ATTENDANT, HEATHER 703.0 Ingrowing Nail 05/12/2011 BRANDEE SERVICE ATTENDANT, HEATHER 726.91 EXOSTOSIS OF UNSPECIFIED SITE 05/12/2011 BRANDEE SERVICE ATTENDANT, HEATHER 703.0 Ingrowing Nail 05/12/2011 BRANDEE SERVICE ATTENDANT, HEATHER 726.91 EXOSTOSIS OF UNSPECIFIED SITE 05/12/2011 BRANDEE SERVICE ATTENDANT, HEATHER 703.0 Ingrowing Nail 05/12/2011 BRANDEE SERVICE ATTENDANT, HEATHER 726.91 EXOSTOSIS OF UNSPECIFIED SITE 05/12/2011 BRANDEE SERVICE ATTENDANT, HEATHER 703.0 Ingrowing Nail 05/12/2011 BRANDEE SERVICE ATTENDANT, HEATHER 726.91 EXOSTOSIS OF UNSPECIFIED SITE 05/12/2011 BRANDEE SERVICE ATTENDANT, HEATHER 703.0 Ingrowing Nail 05/12/2011 BRANDEE SERVICE ATTENDANT, HEATHER 726.91 EXOSTOSIS OF UNSPECIFIED SITE 05/12/2011 BRANDEE SERVICE ATTENDANT, HEATHER 703.0 Ingrowing Nail 05/12/2011 BRANDEE SERVICE ATTENDANT, HEATHER 726.91 EXOSTOSIS OF UNSPECIFIED SITE 05/12/2011 [facility] SERVICE ATTENDANT, HEATHER 703.0 Ingrowing Nail 05/12/2011 BRANDEE SERVICE ATTENDANT, HEATHER 726.91 EXOSTOSIS OF UNSPECIFIED SITE 05/12/2011 GOVIND SERVICE ATTENDANT, MARIANNA 703.0 Ingrowing Nail 05/12/2011 GOVIND SERVICE ATTENDANT, MARIANNA 726.91 EXOSTOSIS OF UNSPECIFIED SITE 05/12/2011 GOVIND SERVICE ATTENDANT, MARIANNA 703.0 Ingrowing Nail 05/12/2011 GOVIND SERVICE ATTENDANT, MARIANNA 726.91 EXOSTOSIS OF UNSPECIFIED SITE 06/02/2011 BRANDEE SERVICE ATTENDANT, HEATHER 078.12 Plantar Wart 06/02/2011 BRANDEE SERVICE ATTENDANT, HEATHER 078.12 Plantar Wart 06/02/2011 BRANDEE SERVICE ATTENDANT, HEATHER 078.12 Plantar Wart 06/02/2011 BRANDEE SERVICE ATTENDANT, HEATHER 078.12 Plantar Wart 06/02/2011 BRANDEE SERVICE ATTENDANT, HEATHER 078.12 Plantar Wart 06/02/2011 BRANDEE SERVICE ATTENDANT, HEATHER 078.12 Plantar Wart 06/02/2011 BRANDEE SERVICE ATTENDANT, HEATHER 078.12 Plantar Wart 06/02/2011 GOVIND SERVICE ATTENDANT, MARIANNA 078.12 Plantar Wart 06/02/2011 GOVIND SERVICE ATTENDANT, MARIANNA 078.12 Plantar Wart 07/05/2011 BRANDEE SERVICE ATTENDANT, HEATHER 466.0 ACUTE BRONCHITIS 07/05/2011 BRANDEE SERVICE ATTENDANT, HEATHER 466.0 ACUTE BRONCHITIS 07/05/2011 BRANDEE SERVICE ATTENDANT, HEATHER 466.0 ACUTE BRONCHITIS 07/05/2011 BRANDEE SERVICE ATTENDANT, HEATHER 466.0 ACUTE BRONCHITIS 07/05/2011 BRANDEE SERVICE ATTENDANT, HEATHER 466.0 ACUTE BRONCHITIS 07/05/2011 BRANDEE SERVICE ATTENDANT, HEATHER 466.0 ACUTE BRONCHITIS 07/05/2011 BRANDEE SERVICE ATTENDANT, HEATHER 466.0 ACUTE BRONCHITIS 07/05/2011 GOVIND SERVICE ATTENDANT, MARIANNA 466.0 ACUTE BRONCHITIS 07/05/2011 GOVIND SERVICE ATTENDANT, MARIANNA 466.0 ACUTE BRONCHITIS 11/20/2011 BRANDEE SERVICE ATTENDANT, HEATHER 682.9 CELLULITIS 11/20/2011 BRANDEE SERVICE ATTENDANT, HEATHER 682.9 CELLULITIS 11/20/2011 BRANDEE SERVICE ATTENDANT, HEATHER 682.9 CELLULITIS 11/20/2011 BRANDEE SERVICE ATTENDANT, HEATHER 682.9 CELLULITIS 11/20/2011 BRANDEE SERVICE ATTENDANT, HEATHER 682.9 CELLULITIS 11/20/2011 BRANDEE SERVICE ATTENDANT, HEATHER 682.9 CELLULITIS 11/20/2011 BRANDEE SERVICE ATTENDANT, HEATHER 682.9 CELLULITIS 11/20/2011 GOVIND SERVICE ATTENDANT, MARIANNA 682.9 CELLULITIS 11/20/2011 GOVIND SERVICE ATTENDANT, MARIANNA 682.9 CELLULITIS 12/22/2011 BRANDEE SERVICE ATTENDANT, HEATHER 401.1 ESSENTIAL HYPERTENSION BENIGN 12/22/2011 BRANDEE SERVICE ATTENDANT, HEATHER 401.1 ESSENTIAL HYPERTENSION BENIGN 12/22/2011 BRANDEE SERVICE ATTENDANT, HEATHER 401.1 ESSENTIAL HYPERTENSION BENIGN 12/22/2011 ALEX IRVIN APRNEN 401.1 ESSENTIAL HYPERTENSION BENIGN 12/22/2011 BRANDEE ULLOANALEXEN 401.1 ESSENTIAL HYPERTENSION BENIGN 12/22/2011 BRANDEE ULLOANALEXEN 401.1 ESSENTIAL HYPERTENSION BENIGN 12/22/2011 BRANDEE ULLOANALEXEN 401.1 ESSENTIAL HYPERTENSION BENIGN 12/22/2011 GOIVND SERVICE ATTENDANTMARIANNA 401.1 ESSENTIAL HYPERTENSION BENIGN 12/22/2011 GOVIND SERVICE ATTENDANTMARIANNA 401.1 ESSENTIAL HYPERTENSION BENIGN 04/09/2012 BRANDEE SERVICE ATTENDANT, HEATHER 272.2 HYPERLIPIDEMIA 04/09/2012 BRANDEEALEX JONES APRNEN V04.81 Need For Prophylactic Vaccination And Inoculation Against Influenza 04/09/2012 BRANDEE SERVICE ATTENDANTHEATHER Sunshine 272.2 HYPERLIPIDEMIA 04/09/2012 BRANDEE SERVICE ATTENDANT, HEATHER V04.81 Need For Prophylactic Vaccination And Inoculation Against Influenza 04/09/2012 BRANDEE SERVICE ATTENDANT, HEATHER 272.2 HYPERLIPIDEMIA 04/09/2012 BRANDEE SERVICE ATTENDANT, HEATHER V04.81 Need For Prophylactic Vaccination And Inoculation Against Influenza 04/09/2012 BRANDEE SERVICE ATTENDANT, HEATHER 272.2 HYPERLIPIDEMIA 04/09/2012 BRANDEE SERVICE ATTENDANT, HEATHER V04.81 Need For Prophylactic Vaccination And Inoculation Against Influenza 04/09/2012 BRANDEE SERVICE ATTENDANT, HEATHER 272.2 HYPERLIPIDEMIA 04/09/2012 BRANDEE SERVICE ATTENDANT, HEATHER V04.81 Need For Prophylactic Vaccination And Inoculation Against Influenza 04/09/2012 BRANDEE SERVICE ATTENDANT, HEATHER 272.2 HYPERLIPIDEMIA 04/09/2012 BRANDEE SERVICE ATTENDANT, HEATHER V04.81 Need For Prophylactic Vaccination And Inoculation Against Influenza 04/09/2012 BRANDEE SERVICE ATTENDANTHEATHER Sunshine 272.2 HYPERLIPIDEMIA 04/09/2012 BRANDEE SERVICE ATTENDANT, HEATHER V04.81 Need For Prophylactic Vaccination And Inoculation Against Influenza 04/09/2012 MARIANNA FAUST APRN 272.2 HYPERLIPIDEMIA 04/09/2012 MARIANNA FAUST APRN V04.81 Need For Prophylactic Vaccination And Inoculation Against Influenza 04/09/2012 GOVIND MARIANNA WRIGHT 272.2 HYPERLIPIDEMIA 04/09/2012 MARIANNA FAUST APRN V04.81 Need For Prophylactic Vaccination And Inoculation Against Influenza 05/14/2012 BRANDEE HEATHER WRIGHT 682.9 Cellulitis/abscess 05/14/2012 BRANDEE SERVICE ATTENDANT, HEATHER 682.9 Cellulitis/abscess 05/14/2012 BRANDEE SERVICE ATTENDANT, HEATHER 682.9 Cellulitis/abscess 05/14/2012 BRANDEE SERVICE ATTENDANT, HEATHER 682.9 Cellulitis/abscess 05/14/2012 BRANDEE SERVICE ATTENDANT, HEATHER 682.9 Cellulitis/abscess 05/14/2012 BRANDEE SERVICE ATTENDANT, HEATHER 682.9 Cellulitis/abscess 05/14/2012 BRANDEE SERVICE ATTENDANT, HEATHER 682.9 Cellulitis/abscess 05/14/2012 GOVIND SERVICE ATTENDANT, MARIANNA 682.9 Cellulitis/abscess 05/14/2012 GOVIND SERVICE ATTENDANT, MARIANNA 682.9 Cellulitis/abscess 06/24/2012 BRANDEE SERVICE ATTENDANT, HEATHER 112.1 Candidiasis, Of Vulva And Vagina 06/24/2012 BRANDEE SERVICE ATTENDANT, HEATHER 112.1 Candidiasis, Of Vulva And Vagina 06/24/2012 BRANDEE SERVICE ATTENDANT, HEATHER 112.1 Candidiasis, Of Vulva And Vagina 06/24/2012 BRANDEE SERVICE ATTENDANT, HEATHER 112.1 Candidiasis, Of Vulva And Vagina 06/24/2012 BRANDEE SERVICE ATTENDANT, HEATHER 112.1 Candidiasis, Of Vulva And Vagina 06/24/2012 BRANDEE SERVICE ATTENDANT, HEATHER 112.1 Candidiasis, Of Vulva And Vagina 06/24/2012 BRANDEE SERVICE ATTENDANT, HEATHER 112.1 Candidiasis, Of Vulva And Vagina 06/24/2012 GOVIND SERVICE ATTENDANT, MARIANNA 112.1 Candidiasis, Of Vulva And Vagina 06/24/2012 GOVIND SERVICE ATTENDANT, MARIANNA 112.1 Candidiasis, Of Vulva And Vagina 06/28/2012 BRANDEE SERVICE ATTENDANT, HEATHER 110.1 Onychomycosis 06/28/2012 BRANDEE SERVICE ATTENDANT, HEATHER 703.8 Other Specified Diseases Of Nail 06/28/2012 BRANDEE SERVICE ATTENDANT, HEATHER 110.1 Onychomycosis 06/28/2012 BRANDEE SERVICE ATTENDANT, HEATHER 703.8 Other Specified Diseases Of Nail 06/28/2012 BRANDEE SERVICE ATTENDANT, HEATHER 110.1 Onychomycosis 06/28/2012 BRANDEE SERVICE ATTENDANT, HEATHER 703.8 Other Specified Diseases Of Nail 06/28/2012 BRANDEE SERVICE ATTENDANT, HEATHER 110.1 Onychomycosis 06/28/2012 BRANDEE SERVICE ATTENDANT, HEATHER 703.8 Other Specified Diseases Of Nail 06/28/2012 BRANDEE SERVICE ATTENDANT, HEATHER 110.1 Onychomycosis 06/28/2012 BRANDEE SERVICE ATTENDANT, HEATHER 703.8 Other Specified Diseases Of Nail 06/28/2012 BRANDEE SERVICE ATTENDANT, HEATHER 110.1 Onychomycosis 06/28/2012 BRANDEE SERVICE ATTENDANT, HEATHER 703.8 Other Specified Diseases Of Nail 06/28/2012 BRANDEE SERVICE ATTENDANT, HEATHER 110.1 Onychomycosis 06/28/2012 BRANDEE SERVICE ATTENDANT, HEATHER 703.8 Other Specified Diseases Of Nail 06/28/2012 GOVIND SERVICE ATTENDANT, MARIANNA 110.1 Onychomycosis 06/28/2012 GOVIND SERVICE ATTENDANT, MARIANNA 703.8 Other Specified Diseases Of Nail 06/28/2012 GOVIND SERVICE ATTENDANT, MARIANNA 110.1 Onychomycosis 06/28/2012 GOVIND SERVICE ATTENDANT, MARIANNA 703.8 Other Specified Diseases Of Nail 08/21/2012 BRANDEE SERVICE ATTENDANT, HEATHER 682.9 Cellulitis/abscess 08/21/2012 BRANDEE SERVICE ATTENDANT, HEATHER V72.31 Gynecological Exam 08/21/2012 BRANDEE SERVICE ATTENDANT, HEATHER 682.9 Cellulitis/abscess 08/21/2012 BRANDEE SERVICE ATTENDANT, HEATHER V72.31 Gynecological Exam 08/21/2012 BRANDEE SERVICE ATTENDANT, HEATHER 682.9 Cellulitis/abscess 08/21/2012 BRANDEE SERVICE ATTENDANT, HEATHER V72.31 Gynecological Exam 08/21/2012 BRANDEE SERVICE ATTENDANT, HEATHER 682.9 Cellulitis/abscess 08/21/2012 BRANDEE SERVICE ATTENDANT, HEATHER V72.31 Gynecological Exam 08/21/2012 BRANDEE SERVICE ATTENDANT, HEATHER 682.9 Cellulitis/abscess 08/21/2012 BRANDEE SERVICE ATTENDANT, HEATHER V72.31 Gynecological Exam 08/21/2012 BRANDEE SERVICE ATTENDANT, HEATHER 682.9 Cellulitis/abscess 08/21/2012 BRANDEE SERVICE ATTENDANT, HEATHER V72.31 Gynecological Exam 08/21/2012 BRANDEE SERVICE ATTENDANT, HEATHER 682.9 Cellulitis/abscess 08/21/2012 BRANDEE SERVICE ATTENDANT, HEATHER V72.31 Gynecological Exam 08/21/2012 GOVIND SERVICE ATTENDANT, MARIANNA 682.9 Cellulitis/abscess 08/21/2012 GOVIND SERVICE ATTENDANT, MARIANNA V72.31 Gynecological Exam 08/21/2012 GOVIND SERVICE ATTENDANT, MARIANNA 682.9 Cellulitis/abscess 08/21/2012 GOVIND SERVICE ATTENDANT, MARIANNA V72.31 Gynecological Exam 10/08/2012 BRANDEE SERVICE ATTENDANT, HEATHER 466.0 Bronchitis, Acute 10/08/2012 BRANDEE SERVICE ATTENDANT, HEATHER 466.0 Bronchitis, Acute 10/08/2012 BRANDEE SERVICE ATTENDANT, HEATHER 466.0 Bronchitis, Acute 10/08/2012 BRANDEE SERVICE ATTENDANT, HEATHER 466.0 Bronchitis, Acute 10/08/2012 BRANDEE SERVICE ATTENDANT, HEATHER 466.0 Bronchitis, Acute 10/08/2012 BRANDEE SERVICE ATTENDANT, HEATHER 466.0 Bronchitis, Acute 10/08/2012 BRANDEE SERVICE ATTENDANT, HEATHER 466.0 Bronchitis, Acute 10/08/2012 GOVIND SERVICE ATTENDANT, MARIANNA 466.0 Bronchitis, Acute 10/08/2012 GOVIND SERVICE ATTENDANT, MARIANNA 466.0 Bronchitis, Acute 12/05/2012 BRANDEE SERVICE ATTENDANT, HEATHER 599.0 Uti 12/05/2012 BRANDEE SERVICE ATTENDANT, HEATHER 599.0 Uti 12/05/2012 BRANDEE SERVICE ATTENDANT, HEATHER 599.0 Uti 12/05/2012 BRANDEE SERVICE ATTENDANT, HEATHER 599.0 Uti 12/05/2012 BRANDEE SERVICE ATTENDANT, HEATHER 599.0 Uti 12/05/2012 BRNADEE SERVICE ATTENDANT, HEATHER 599.0 Uti 12/05/2012 BRANDEE SERVICE ATTENDANT, HEATHER 599.0 Uti 12/05/2012 GOVIND SERVICE ATTENDANT, MARIANNA 599.0 Uti 12/05/2012 GOVIND SERVICE ATTENDANT, MARIANNA 599.0 Uti 05/21/2013 BRANDEE SERVICE ATTENDANT, HEATHER 285.9 ANEMIA, UNSPECIFIED 05/21/2013 BRANDEE SERVICE ATTENDANT, HEATHER 285.9 ANEMIA, UNSPECIFIED 05/21/2013 BRANDEE SERVICE ATTENDANT, HEATHER 285.9 ANEMIA, UNSPECIFIED 05/21/2013 BRANDEE SERVICE ATTENDANT, HEATHER 285.9 ANEMIA, UNSPECIFIED 05/21/2013 BRANDEE SERVICE ATTENDANT, HEATHER 285.9 ANEMIA, UNSPECIFIED 05/21/2013 BRANDEE SERVICE ATTENDANT, HEATHER 285.9 ANEMIA, UNSPECIFIED 05/21/2013 BRANDEE SERVICE ATTENDANT, HEATHER 285.9 ANEMIA, UNSPECIFIED 05/21/2013 GOVIND SERVICE ATTENDANT MARIANNA 285.9 ANEMIA, UNSPECIFIED 08/07/2013 BRANDEE SERVICE ATTENDANT, HEATHER 682.5 CELLULITIS AND ABSCESS OF BUTTOCK 08/07/2013 BRANDEE SERVICE ATTENDANT, HEATHER 682.5 CELLULITIS AND ABSCESS OF BUTTOCK 08/07/2013 BRANDEE SERVICE ATTENDANT, HEATHER 682.5 CELLULITIS AND ABSCESS OF BUTTOCK 08/07/2013 BRANDEE SERVICE ATTENDANT, HEATHER 682.5 CELLULITIS AND ABSCESS OF BUTTOCK 08/07/2013 BRANDEE SERVICE ATTENDANT, HEATHER 682.5 CELLULITIS AND ABSCESS OF BUTTOCK 08/07/2013 BRANDEE SERVICE ATTENDANT, HEATHER 682.5 CELLULITIS AND ABSCESS OF BUTTOCK 08/07/2013 BRANDEE SERVICE ATTENDANT, HEATHER 682.5 CELLULITIS AND ABSCESS OF BUTTOCK 12/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, HEATHER 250.02 DIABETES MELLITUS WITHOUT MENTION OF COMPLICATION TYPE II OR UNSPECIFIED TYPE UNCONTROLLED 12/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, HEATHER 250.02 DIABETES MELLITUS WITHOUT MENTION OF COMPLICATION TYPE II OR UNSPECIFIED TYPE UNCONTROLLED 12/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, HEATHER 250.02 DIABETES MELLITUS WITHOUT MENTION OF COMPLICATION TYPE II OR UNSPECIFIED TYPE UNCONTROLLED 12/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, 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 250.02 DIABETES MELLITUS WITHOUT MENTION OF [...] OF UNSP MUSC/FASC/TEND AT WRS/HND 09/12/2018 DANIEL EHRNANDEZ MD, Ot W00.0XXA FALL ON SAME LEVEL DUE TO ICE AND SNOW, 09/13/2018 DANIEL HERNANDEZ MD, Ot F17.200 NICOTINE DEPENDENCE, UNSPECIFIED, UNCOMP 09/13/2018 DANIEL HERNANDEZ MD, Ot M54.5 LOW BACK PAIN 09/13/2018 DANIEL HERNANDEZ MD, Ot S39.012A STRAIN OF MUSCLE, FASCIA AND TENDON OF L 09/13/2018 DANIEL HERNANDEZ MD Ot S66.911A STRAIN OF UNSP MUSC/FASC/TEND AT WRS/HND 09/13/2018 DANIEL HERNANDEZ MD Ot S66.912A STRAIN OF UNSP MUSC/FASC/TEND AT WRS/HND 09/13/2018 DANIEL HERNANDEZ MD Ot W00.0XXA FALL ON SAME LEVEL DUE TO ICE AND SNOW, 09/20/2018 NOEL DICK DO Ot C67.9 MALIGNANT NEOPLASM OF BLADDER, UNSPECIFI 09/20/2018 NOEL DICK DO T Ot E11.65 TYPE 2 DIABETES MELLITUS WITH HYPERGLYCE 09/20/2018 NOEL DICK DO T Ot I10 ESSENTIAL (PRIMARY) HYPERTENSION 09/20/2018 NOEL DICK DO Ot J43.9 EMPHYSEMA, UNSPECIFIED 09/20/2018 NOEL DICK DO T Ot L02.211 CUTANEOUS ABSCESS OF ABDOMINAL WALL 09/20/2018 NOEL DICK DO Ot R55 SYNCOPE AND COLLAPSE 09/20/2018 NOEL DICK DO T Ot Z85.528 PERSONAL HISTORY OF OTHER MALIGNANT NEOP 09/20/2018 NOEL DICK DO T Ot Z90.710 ACQUIRED ABSENCE OF BOTH CERVIX AND UTER 09/20/2018 NOEL DICK DO T Ot Z90.89 ACQUIRED ABSENCE OF OTHER ORGANS 09/20/2018 NOEL DICK DO Ot Z92.21 PERSONAL HISTORY OF ANTINEOPLASTIC CHEMO 09/20/2018 NOEL DICK DO T Ot Z98.51 TUBAL LIGATION STATUS 09/20/2018 NOEL DICK DO Ot Z98.890 OTHER SPECIFIED POSTPROCEDURAL STATES Procedures Code Description [place] [address] GLUCOSE 05/08/2013 03708 HEMOGLOBIN A1C 05/08/2013 G0008 ADMIN FEE (MEDICARE) INFLUENZA 05/14/2013 64133 CBC - CBC WITH DIFF - LC 05/15/2013 01943 COMP - COMPREHENSIVE PANEL - LC 05/15/2013 83793 LIPID - LIPID PANEL - LC 05/15/2013 73741 TSH - TSH - LC 05/15/2013 49758 MALB - MICROALBUMIN - LC 05/15/2013 88689 GLUCOSE 08/11/2013 23645 HEMOGLOBIN A1C 08/11/2013 69464 CBC WITH DIFF 08/12/2013 12492 GLUCOSE 10/07/2013 4000F TOBACCO USE TXMNT COUNSELING 10/13/2013 46780 PULSE OXIMETRY 12/12/2013 A4614 PEAK FLOW 12/12/2013 84240 GLUCOSE 12/12/2013 27250 HEMOGLOBIN A1C 12/12/2013 Pulmonary Pulmonary Function Test 01/13/2014 A4614 PEAK FLOW 02/10/2014 90145 PULSE OXIMETRY 02/10/2014 22176 GLUCOSE 02/10/2014 Endocrino Endocrinology 02/13/2014 Pulmonary Pulmonology, Pulmonology 03/13/2014 28622 PULSE OXIMETRY 04/14/2014 A4614 PEAK FLOW 04/14/2014 [...] CHLORIDE 107 mmol/L 98-110 CO2 23 mmol/L 22- GFR ESTIMATED NOT AFR/AM >60 GFR ESTIMATED IF AFR/AM >60 ALT-SGPT 13 U/L 0-55 AST-SGOT 11 U/L 5-34 TOTAL PROTEIN,SERUM 7.4 g/dL 6-8.3 ALBUMIN 4.2 g/dL 3.6-5.3 ALKALINE PHOSPHATASE 91 U/L 40-150 TOTAL BILIRUBIN 0.2 mg/dL 0.2-1.2 ANION GAP 10 5-15 GLOBULIN, CALCULATED 3.2 g/dL A/G RATIO 1.3 ratio 1-1.8 Capillary blood glucose measurement by glucometer (mass/volume) - 09/18/18 21: 24 Capillary blood glucose measurement by glucometer (mass/volume) > mg /dL 70-110 Bacterial urine culture - 09/18/18 21:30 Bacterial urine culture NG NRG Automated blood complete blood count (hemogram) panel - 09/18/18 22:05 Blood leukocytes automated count (number/volume) 8.0 10*3/uL 4.3-11.0 Blood erythrocytes automated count (number/volume) 4.31 10*6/uL 4.35-5.85 Venous blood hemoglobin measurement (mass/volume) 11.2 g/dL 11.5-16.0 Blood hematocrit (volume fraction) 37 % 35-52 Automated erythrocyte mean corpuscular volume 847 [foz_us] 80-99 Automated erythrocyte mean corpuscular hemoglobin (mass per erythrocyte) 26 pg 25-34 Automated erythrocyte mean corpuscular hemoglobin concentration measurement ( mass/volume) 31 g/dL 32-36 Automated erythrocyte distribution width ratio 18.1 % 10.0-14.5 Automated blood platelet count (count/volume) 269 10*3/uL 130-400 Automated blood platelet mean volume measurement 10.8 [foz_us] 7.4-10.4 Comprehensive metabolic panel - 09/18/18 22:05 Serum or plasma sodium measurement (moles/volume) 128 mmol/L 135-145 Serum or plasma potassium measurement (moles/volume) 5.6 mmol/L 3.6-5.0 Serum or plasma chloride measurement (moles/volume) 90 mmol/L 98-107 Carbon dioxide 24 mmol/L 21-32 Serum or plasma anion gap determination (moles/volume) 14 mmol/L 5-14 Serum or plasma urea nitrogen measurement (mass/volume) 21 mg/dL 7-18 Serum or plasma creatinine measurement (mass/volume) 1.11 mg/dL 0.60-1.30 Serum or plasma urea nitrogen/creatinine mass ratio 19 NRG Serum or plasma creatinine measurement with calculation of estimated glomerular filtration rate 52 NRG Serum or plasma glucose measurement (mass/volume) 786 mg/dL 70-105 Serum or plasma calcium measurement (mass/volume) 9.3 mg/dL 8.5-10.1 Serum or plasma total bilirubin measurement (mass/volume) 0.2 mg/dL 0.1-1.0 Serum or plasma alkaline phosphatase measurement (enzymatic activity/volume) 167 U/L 40-136 Serum or plasma aspartate aminotransferase measurement (enzymatic activity/ volume) 13 U/L 5-34 Serum or plasma alanine aminotransferase measurement (enzymatic activity/volume ) 15 U/L 0-55 Serum or plasma protein measurement (mass/volume) 7.8 g/dL 6.4-8.2 Serum or plasma albumin measurement (mass/volume) 3.9 g/dL 3.2-4.5 CALCIUM CORRECTED 9.4 mg/dL 8.5-10.1 TROPONIN T - 09/18/18 22:05 TROPONIN T < 6 <=10 Lipase - 09/18/18 22:05 Lipase 89 U/L 8-78 Capillary blood glucose measurement by glucometer (mass/volume) - 09/19/18 00: 34 Capillary blood glucose measurement by glucometer (mass/volume) > mg /dL 70-110 Whole blood basic metabolic panel - 09/19/18 00:50 Serum or plasma sodium measurement (moles/volume) 128 mmol/L 135-145 Serum or plasma potassium measurement (moles/volume) 4.7 mmol/L 3.6-5.0 Serum or plasma chloride measurement (moles/volume) 92 mmol/L 98-107 Carbon dioxide 20 mmol/L 21-32 Serum or plasma anion gap determination (moles/volume) 16 mmol/L 5-14 Serum or plasma urea nitrogen measurement (mass/volume) 22 mg/dL 7-18 Serum or plasma creatinine measurement (mass/volume) 0.98 mg/dL 0.60-1.30 Serum or plasma urea nitrogen/creatinine mass ratio 22 NRG Serum or plasma creatinine measurement with calculation of estimated glomerular filtration rate 60 NRG Serum or plasma glucose measurement (mass/volume) 680 mg/dL 70-105 Serum or plasma calcium measurement (mass/volume) 8.6 mg/dL 8.5-10.1 Capillary blood glucose measurement by glucometer (mass/volume) - 09/19/18 03: 58 Capillary blood glucose measurement by glucometer (mass/volume) 465 mg/dL 70-110 Capillary blood glucose measurement by glucometer (mass/volume) - 09/19/18 07: 24 Capillary blood glucose measurement by glucometer (mass/volume) 444 mg/dL 70-110 Encounters ACCT No. Visit Date/Time Discharge Status Pt. Type Provider Facility Loc./Unit Complaint [id number] 09/25/2018 12:21:00 ACT Unknown Halle Zapata MD [id number] 08/26/2018 07:22:56 08/26/2018 23:59:59 DIS Outpatient DANAY SORIA V [facility] [id number] 05/30/2018 08:41:17 05/30/2018 23:59:59 DIS Outpatient LINDA ZAPATA [facility] [id number] 04/25/2018 12:24:37 04/25/2018 23:59:59 CLS Preadmit LINDA ZAPATA [facility] ops [id number] 08/06/2018 13:35:03 Document Registration [id number] 07/05/2018 09:35:35 ACT V AMADOU ROBERT [facility] [place] [id number] 06/18/2018 06:13:13 Inpatient LINDA ZAPATA [facility] ops [id number] 09/18/2018 20:56:00 09/19/2018 07:30:00 DIS Outpatient NOEL DICK DO [facility] ER FS HIGH BLOOD SUGAR, SOB [id number] 09/12/2018 14:20:00 09/12/2018 15:56:00 DIS Emergency DANIEL HERNANDEZ MD [facility] ER FS FALL; RT HIP/MI WRIST INJ [id number] 10/15/2014 15:34:45 ACT Document Registration [id number] 10/07/2018 13:15:00 10/07/2018 23:59:59 CLS [facility] [id number] 04/14/2014 08:59:00 04/14/2014 11:05:00 DIS Outpatient HEATHER IRVIN APRN [id number] 02/10/2014 09:57:00 02/10/2014 23:59:59 CLS Outpatient HEATHER IRVIN APRN [id number] 02/10/2014 09:57:00 02/10/2014 23:59:59 CLS Outpatient HEATHER IRVIN APRN [id number] 12/12/2013 10:38:00 12/12/2013 23:59:59 CLS Outpatient HEATHER IRVIN APRN [id number] 10/07/2013 14:37:00 10/13/2013 20:05:00 DIS Outpatient HEATHER IRVIN APRN [id number] 10/07/2013 14:37:00 10/07/2013 23:59:59 CLS Outpatient HEATHER IRVIN APRN [id number] 08/11/2013 10:11:00 08/11/2013 13:49:00 DIS Outpatient HEATHER IRVIN APRN [id number] 05/08/2013 09:56:00 05/08/2013 23:59:59 CLS Outpatient MARIANNA FAUST APRN [id number] 01/08/2013 08:25:00 01/08/2013 23:59:59 CLS Outpatient MARIANNA FAUST APRN [id number] 10/15/2014 15:34:45 10/15/2014 23:59:00 DIS Outpatient [id number] 08/12/2014 12:31:00 08/12/2014 14:34:00 DIS Emergency [facility] FED [id number] 06/21/2014 16:47:00 06/21/2014 17:52:00 DIS Emergency [facility] FED [id number] 09/02/2014 00:00:00 Document Registration
[2018-10-13] MEDS ORDERED: ASPIRIN 81 MG CHEW (CHILDREN'S ASA) PO ONE (17:15)
--- NOTE | 2018-10-13 17:18 | ED Chest Pain ---
General Stated Complaint: CHEST PAIN,SOB Source: patient Exam Limitations: no limitations History of Present Illness Date Seen by Provider: Oct 13, 2018 Time Seen by Provider: 17:08 Initial Comments 53-year-old female with history of COPD, diabetes and renal cancer presents with sudden onset of substernal sharp chest pain. Pain does not particularly radiate. She feels nauseated but no shortness of breath. She's not had any leg pain or swelling. She is currently undergoing chemotherapy in [place]. She continues to smoke but has cut down significantly. Denies fever or chills. No history of previous similar symptoms or known coronary disease. Pain began a few minutes ago while playing cards. No preceding falls or injuries. Allergies and Home Medications Allergies Coded Allergies: No Known Drug Allergies (Unverified , 09/18/18) Patient Home Medication List Home Medication List Reviewed: Yes Review of Systems Review of Systems Constitutional: malaise, weakness EENTM: No Symptoms Reported Respiratory: Cough (chronic) Cardiovascular: See HPI Gastrointestinal: Nausea Genitourinary: No Symptoms Reported Musculoskeletal: no symptoms reported Skin: no symptoms reported Psychiatric/Neurological: No Symptoms Reported Endocrine: No Symptoms Reported Hematologic/Lymphatic: No Symptoms Reported Past Wswulcv-Xcpofh-Mflkbm Hx Past Med/Social Hx: Reviewed Nursing Past Med/Soc Hx Patient Social History Drug of Choice: POT Recent Foreign Travel: No (N) Contact w/Someone Who Travel: No (N) Recent Hopitalizations: Yes Seasonal Allergies Seasonal Allergies: No Past Medical History Surgeries: Yes Abdominal, Hysterectomy, Nephrectomy Respiratory: Yes Asthma Currently Using CPAP: No Currently Using BIPAP: No Cardiac: No Hypertension 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 has multiple lesions on her abd and under the folds.) Blood Disorders: No Adverse Reaction/Blood Tranf: No Physical Exam Vital Signs Vital Signs - First Documented 10/13/18 17:00 Temp 98.6 Pulse 102 Resp 16 B/P (MAP) 120/86 (97) Pulse Ox 99 O2 Delivery Room Air Capillary Refill : Height, Weight, BMI Height: 5'7.00" Weight: 253lbs. oz. 114.800932zg; BMI Method:Stated General Appearance: No Apparent Distress, WD/WN, Obese HEENT: PERRL/EOMI, Normal ENT Inspection Neck: Full Range of Motion, Normal Inspection, Non Tender, Supple Respiratory: Chest Non Tender, No Accessory Muscle Use, No Respiratory Distress , Decreased Breath Sounds, Rhonci (diffusely), Other (PowerPort noted left upper anterior chest) Cardiovascular: Regular Rate, Rhythm, No Edema, No Gallop, No JVD, No Murmur, Normal Peripheral Pulses Gastrointestinal: Normal Bowel Sounds, No Organomegaly, No Pulsatile Mass, Non Tender (except for minimal left lower quadrant sensitivity), Soft, Other (right lower quadrant hernia scar noted. 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 Norm as Tested Skin: Normal Color, Warm/Dry Lymphatic: No Adenopathy Progress/Results/Core Measures Results/Orders Lab Results Laboratory Tests Test 10/13/18 17:20 10/13/18 17:36 Range/Units Glucometer 228 H 70-110 MG/DL White Blood Count 3.2 L 4.3-11.0 10^3/uL Red Blood Count 3.97 L 4.35-5.85 10^6/uL Hemoglobin 10.3 L 11.5-16.0 G/DL Hematocrit 33 L 35-52 % Mean Corpuscular Volume 83 80-99 FL Mean Corpuscular Hemoglobin 26 25-34 PG Mean Corpuscular Hemoglobin Concent 31 L 32-36 G/DL Red Cell Distribution Width 19.6 H 10.0-14.5 % Platelet Count 478 H 130-400 10^3/uL Mean Platelet Volume 10.1 7.4-10.4 FL Neutrophils (%) (Auto) 39 L 42-75 % Lymphocytes (%) (Auto) 53 H 12-44 % Monocytes (%) (Auto) 4 0-12 % Eosinophils (%) (Auto) 3 0-10 % Basophils (%) (Auto) 1 0-10 % Neutrophils # (Auto) 1.2 L 1.8-7.8 X 10^3 Lymphocytes # (Auto) 1.7 1.0-4.0 X 10^3 Monocytes # (Auto) 0.1 0.0-1.0 X 10^3 Eosinophils # (Auto) 0.1 0.0-0.3 10^3/uL Basophils # (Auto) 0.0 0.0-0.1 10^3/uL Prothrombin Time 12.9 12.2-14.7 SEC INR Comment 1.0 0.8-1.4 Activated Partial Thromboplast Time 25 24-35 SEC D-Dimer 1.25 H 0.00-0.49 UG/ML Sodium Level 137 135-145 MMOL/L Potassium Level 4.2 3.6-5.0 MMOL/L Chloride Level 98 98-107 MMOL/L Carbon Dioxide Level 25 21-32 MMOL/L Anion Gap 14 5-14 MMOL/L Blood Urea Nitrogen 17 7-18 MG/DL Creatinine 0.98 0.60-1.30 MG/DL Estimat Glomerular Filtration Rate 60 BUN/Creatinine Ratio 17 Glucose Level 229 H 70-105 MG/DL Calcium Level 9.7 8.5-10.1 MG/DL Corrected Calcium 9.6 8.5-10.1 MG/DL Magnesium Level 2.1 1.8-2.4 MG/DL Total Bilirubin 0.2 0.1-1.0 MG/DL Aspartate Amino Transf (AST/SGOT) 14 5-34 U/L Alanine Aminotransferase (ALT/SGPT) 22 0-55 U/L Alkaline Phosphatase 122 40-136 U/L Troponin T 8 <=10 NG/L Total Protein 7.4 6.4-8.2 GM/DL Albumin 4.1 3.2-4.5 GM/DL My Orders Orders - DANIEL HERNANDEZ MD Cbc With Automated Diff (10/13/18 17:12) Magnesium (10/13/18 17:12) Chest 1 View Ap/Pa Only (10/13/18 17:12) Ekg Tracing (10/13/18 17:12) Comprehensive Metabolic Panel (10/13/18 17:12) Protime With Inr (10/13/18 17:12) Partial Thromboplastin Time (10/13/18 17:12) O2 (10/13/18 17:12) Monitor-Rhythm Ecg Trace Only (10/13/18 17:12) Lipid Panel (10/14/18 06:00) Aspirin Chewable Tablet (Baby Aspirin Ch (10/13/18 17:15) Saline Lock/Iv-Start (10/13/18 17:12) Fibrin Degradation Products (10/13/18 17:12) Troponin T (10/13/18 17:12) Ct Angio Chest W (10/13/18 18:48) Iohexol Injection (Omnipaque 350 Mg/Ml 1 (10/13/18 19:00) Received Contrast (Hold Metformin- Contr (10/13/18 19:00) Ns (Ivpb) (Sodium Chloride 0.9% Ivpb Bag (10/13/18 19:00) Medications Given in ED Current Medications Medications Dose Ordered Sig/Yoselyn Route Start Time Stop Time Status Last Admin Dose Admin Aspirin 324 mg ONCE ONCE PO 10/13/18 17:15 10/13/18 17:16 DC 10/13/18 17:43 324 MG Iohexol 100 ml ONCE ONCE IV 10/13/18 19:00 10/13/18 19:01 UNV 10/13/18 19:20 100 ML Sodium Chloride 100 ml ONCE ONCE IV 10/13/18 19:00 10/13/18 19:01 UNV 10/13/18 19:21 80 ML Vital Signs/I&O 10/13/18 17:00 Temp 98.6 Pulse 102 Resp 16 B/P (MAP) 120/86 (97) Pulse Ox 99 O2 Delivery Room Air Progress Progress Note : Time: 19:06 Progress Note Discussed elevated d-dimer in light of her malignancy and sharp chest pain. We' ll proceed with CT pulmonary angiogram. 1954 I had an extended discussion with the patient concerning her negative troponin, CTA and lab findings. Stressed importance of good control of diabetes and care of herself. She would prefer to go home. She understands the need to return immediately if symptoms should recur or other problems develop. I also stressed the importance of reevaluation by primary care and to use their discretion for further testing needs. Initial ECG Impression Date: Oct 13, 2018 Initial ECG Impression Time: 17:13 Initial ECG Rhythm: S.Tach Initial ECG Impression: Nonspecific Changes Initial ECG Comparisson: No Previous ECG Available Comment no acute changes Diagnostic Imaging Diagonstic Imaging: Xray, CT Plain Films/CT/US/NM/MRI: chest Comments Chest x-ray and CT angiogram acute changes. Read by radiologist CP/AMI: Aspirin Departure Impression Primary Impression: Chest pain Qualified Codes: R07.82 - Intercostal pain Additional Impressions: Renal carcinoma Qualified Codes: C64.2 - Malignant neoplasm of left kidney, except renal pelvis COPD (chronic obstructive pulmonary disease) Qualified Codes: J44.9 - Chronic obstructive pulmonary disease, unspecified Elevated d-dimer Disposition: HOME, SELF-CARE Condition: Improved Departure-Patient Inst. Decision time for Depature: 19:55 Referrals: NO,LOCAL PHYSICIAN (PCP/Family) Primary Care Physician Keep appointment with primary care doctor in 2-3 days. Patient Instructions: Chest Pain (DC) DANIEL HERNANDEZ MD Oct 13, 2018 17:18
--- NOTE | 2018-10-13 17:31 | NUR ---
PORT IS A POWER PORT ET ACCESSED BY A POWER PORT NEEDLE. INSERTED WITHOUT DIFFICULTY ET FLUSHES EASILY. PT STATES SHE TASTES THE SALINE. UNABLE TO DRAW BLOOD FROM PORT.
--- NOTE | 2018-10-13 17:50 | Diagnostic Imaging Report ---
INDICATION: Chest pain, short of air. EXAMINATION: Portable chest was obtained. FINDINGS: Normal heart size and vascularity. The lungs are clear. There is no effusion or pneumothorax. A Port-A-Cath is present. IMPRESSION: No acute abnormality is seen. There is no change from 09/18/2018. Dictated by: Dictated on workstation # [id number]
[2018-10-13 17:52] LABS: HEMATOCRIT 33 % (35-52); HEMOGLOBIN 10.3 G/DL (11.5-16.0); MEAN CORPUSCULAR VOLUME 83 FL (80-99); WHITE BLOOD COUNT 3.2 10^3/uL (4.3-11.0)
[2018-10-13 17:53] LABS: BASOPHILS % (AUTO) 1 % (0-10); EOSINOPHILS % (AUTO) 3 % (0-10); LYMPHOCYTES % (AUTO) 53 % (12-44); MEAN CORPUSCULAR HEMOGLOBIN 26 PG (25-34); MEAN CORPUSCULAR HGB CONC 31 G/DL (32-36); MEAN PLATELET VOLUME 10.1 FL (7.4-10.4); MONOCYTES % (AUTO) 4 % (0-12); NEUTROPHILS % (AUTO) 39 % (42-75); PLATELET COUNT 478 10^3/uL (130-400); RED CELL DISTRIBUTION WIDTH 19.6 % (10.0-14.5)
[2018-10-13 17:54] LABS: EOSINOPHILS # (AUTO) 0.1 10^3/uL (0.0-0.3); LYMPHOCYTES # (AUTO) 1.7 X 10^3 (1.0-4.0); MONOCYTES # (AUTO) 0.1 X 10^3 (0.0-1.0); NEUTROPHILS # (AUTO) 1.2 X 10^3 (1.8-7.8)
[2018-10-13 18:23] LABS: PROTHROMBIN TIME PATIENT 12.9 SEC (12.2-14.7)
[2018-10-13 18:35] LABS: BILIRUBIN,TOTAL 0.2 MG/DL (0.1-1.0); CALCIUM 9.7 MG/DL (8.5-10.1); CREATININE SERUM 0.98 MG/DL (0.60-1.30); MAGNESIUM 2.1 MG/DL (1.8-2.4); POTASSIUM 4.2 MMOL/L (3.6-5.0); TOTAL PROTEIN 7.4 GM/DL (6.4-8.2)
[2018-10-13 18:36] LABS: ALBUMIN 4.1 GM/DL (3.2-4.5)
--- NOTE | 2018-10-13 18:37 | NUR ---
PT UP TO THE BATHROOM. NOTIFIED WE WERE WAITING ON A FEW LABS TO COME BACK.
--- NOTE | 2018-10-13 18:45 | NUR ---
NOTIFIED HER THAT HER LABS WERE BACK AND WOULD BE IN SOON TO TALK WITH HER.
--- NOTE | 2018-10-13 18:49 | NUR ---
IN TALKING TO PT AT THIS TIME.
[2018-10-13] MEDS ORDERED: HOLD METFORMIN - RECEIVED CONTRAST 20 ML VIAL IV SCH (19:00)
[2018-10-13] MEDS ORDERED: IOHEXOL 350 MG/ML 100 ML (OMNIPAQUE 350) VIAL IV ONE (19:00)
[2018-10-13] MEDS ORDERED: NS 100 ML (IVPB) BAG IV ONE (19:00)
--- NOTE | 2018-10-13 19:34 | Diagnostic Imaging Report ---
PROCEDURE: CT angiography of the chest with contrast. TECHNIQUE: Multiple contiguous axial images were obtained through the chest after uneventful bolus administration of intravenous contrast. 2D reconstructed CTA MIP acquisitions were also performed. Auto Exposure Controls were utilized during the CT exam to meet ALARA standards for radiation dose reduction. INDICATION: Short of air, right-sided chest pain. FINDINGS: The lungs are clear. There is no effusion or pneumothorax. There is no mediastinal mass or hemorrhage. There is no aortic aneurysm or dissection. No pulmonary embolus is seen. IMPRESSION: No acute abnormality is seen. Dictated by: Dictated on workstation # [id number]
[2018-10-13 20:45] VITALS: BP 121/83
== END 2018-10-13 20:45 | disposition home or self-care (01) ==
LOC: EDUNIT# 17:00 → ER FS 17:02
DX: R07.81 Pleurodynia (principal); C64.9 Malignant neoplasm of unspecified kidney, except renal pelvis; J44.9 Chronic obstructive pulmonary disease, unspecified; R79.1 Abnormal coagulation profile; I10 Essential (primary) hypertension; E11.9 Type 2 diabetes mellitus without complications; F17.210 Nicotine dependence, cigarettes, uncomplicated; Z87.442 Personal history of urinary calculi; Z92.21 Personal history of antineoplastic chemotherapy; Z87.448 Personal history of other diseases of urinary system; Z90.710 Acquired absence of both cervix and uterus; Z90.5 Acquired absence of kidney
CPT/HCPCS: 36415; 71045; 71275; 80053; 82962; 83735; 84484; 85025; 85379; 85610; 85730; 93005; 93041

== ENCOUNTER 2018-10-16 22:52 | Emergency (ER) | payer MEDICARE, MEDICAID ==
[~2018-10-16] VITALS: Ht 170.2 cm; Wt 105.2 kg
--- OUTSIDE RECORDS SUMMARY | 2018-10-16 23:05 | XMS REPORT | Continuity of Care Document ---
Author Author [facility] Organization [facility] Address Unknown Phone Unavailable Allergies Active Description Code Type Severity Reaction Onset Reported/Identified Relationship to Patient Clinical Status Yes No Known Medication Allergies Drug N/A N/A Yes No Known Drug Allergies [id number] Drug Allergy Unknown N/A 09/18/2018 Medications There is no data. 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, Unspecified 07/05/2010 [facility] SENIOR COURTROOM CLERK, HEATHER V15.82 TOBACCOISM 07/05/2010 [facility] SENIOR COURTROOM CLERK, HEATHER 278.01 OBESITY MORBID 07/05/2010 [facility] SENIOR COURTROOM CLERK, HEATHER 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, Unspecified 07/05/2010 [facility] SENIOR COURTROOM CLERK, HEATHER V15.82 TOBACCOISM 07/05/2010 [facility] SENIOR COURTROOM CLERK, HEATHER 278.01 OBESITY MORBID 07/05/2010 [facility] SENIOR COURTROOM CLERK, HEATHER 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, Unspecified 07/05/2010 [facility] SENIOR COURTROOM CLERK, HEATHER V15.82 TOBACCOISM 07/05/2010 [facility] SENIOR COURTROOM CLERK, HEATHER 278.01 OBESITY MORBID 07/05/2010 [facility] SENIOR COURTROOM CLERK, HEATHER 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, Unspecified 07/05/2010 [facility] SENIOR COURTROOM CLERK, HEATHER V15.82 TOBACCOISM 07/05/2010 [facility] SENIOR COURTROOM CLERK, HEATHER 278.01 OBESITY MORBID 07/05/2010 [facility] KYLE, HEATHER 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, Unspecified 07/05/2010 [facility] SENIOR COURTROOM CLERK, HEATHER V15.82 TOBACCOISM 07/05/2010 [facility] SENIOR COURTROOM CLERK, HEATHER 278.01 OBESITY MORBID 07/05/2010 [facility] SENIOR COURTROOM CLERK, HEATHER 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, Unspecified 07/05/2010 [facility] SENIOR COURTROOM CLERK, HEATHER V15.82 TOBACCOISM 07/05/2010 [facility] SENIOR COURTROOM CLERK, MARIANNA 278.01 OBESITY MORBID 07/05/2010 [facility] SENIOR COURTROOM CLERK, MARIANNA 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, Unspecified 07/05/2010 [facility] SENIOR COURTROOM CLERK, MARIANNA V15.82 TOBACCOISM 07/05/2010 [facility] SENIOR COURTROOM CLERK, MARIANNA 278.01 OBESITY MORBID 07/05/2010 [facility] SENIOR COURTROOM CLERK, MARIANNA 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, Unspecified 07/05/2010 [facility] SENIOR COURTROOM CLERK, MARIANNA V15.82 TOBACCOISM 07/07/2010 [facility] SENIOR COURTROOM CLERK, HEATHER 280.9 Anemia Hypochromic / Microcytic 07/07/2010 [facility] SENIOR COURTROOM CLERK, HEATHER 796.2 Prehypertension 07/07/2010 [facility] SENIOR COURTROOM CLERK, HEATHER V04.81 Influenza Vaccine 07/07/2010 [facility] SENIOR COURTROOM CLERK, HEATHER V68.89 Encounters For Other Specified Administrative Purpose 07/07/2010 [facility] SENIOR COURTROOM CLERK, HEATHER V72.31 Routine Pelvic Exam 07/07/2010 [facility] SENIOR COURTROOM CLERK, HEATHER 280.9 Anemia Hypochromic / Microcytic 07/07/2010 [facility] SENIOR COURTROOM CLERK, HEATHER 796.2 Prehypertension 07/07/2010 [facility] SENIOR COURTROOM CLERK, HEATHER V04.81 Influenza Vaccine 07/07/2010 [facility] SENIOR COURTROOM CLERK, HEATHER V68.89 Encounters For Other Specified Administrative Purpose 07/07/2010 [facility] SENIOR COURTROOM CLERK, HEATHER V72.31 Routine Pelvic Exam 07/07/2010 [facility] SENIOR COURTROOM CLERK, HEATHER 280.9 Anemia Hypochromic / Microcytic 07/07/2010 [facility] SENIOR COURTROOM CLERK, HEATHER 796.2 Prehypertension 07/07/2010 [facility] SENIOR COURTROOM CLERK, HEATHER V04.81 Influenza Vaccine 07/07/2010 [facility] SENIOR COURTROOM CLERK, HEATHER V68.89 Encounters For Other Specified Administrative Purpose 07/07/2010 [facility] SENIOR COURTROOM CLERK, HEATHER V72.31 Routine Pelvic Exam 07/07/2010 [facility] SENIOR COURTROOM CLERK, HEATHER 280.9 Anemia Hypochromic / Microcytic 07/07/2010 [facility] SENIOR COURTROOM CLERK, HEATHER 796.2 Prehypertension 07/07/2010 [facility] SENIOR COURTROOM CLERK, HEATHER V04.81 Influenza Vaccine 07/07/2010 [facility] SENIOR COURTROOM CLERK, HEATHER V68.89 Encounters For Other Specified Administrative Purpose 07/07/2010 [facility] SENIOR COURTROOM CLERK, HEATHER V72.31 Routine Pelvic Exam 07/07/2010 [facility] SENIOR COURTROOM CLERK, HEATHER 280.9 Anemia Hypochromic / Microcytic 07/07/2010 [facility] SENIOR COURTROOM CLERK, HEATHER 796.2 Prehypertension 07/07/2010 [facility] SENIOR COURTROOM CLERK, HEATHER V04.81 Influenza Vaccine 07/07/2010 BR[facility] SENIOR COURTROOM CLERK, HEATHER V68.89 Encounters For Other Specified Administrative Purpose 07/07/2010 BRAN[facility] SENIOR COURTROOM CLERK, HEATHER V72.31 Routine Pelvic Exam 07/07/2010 BR[facility] SENIOR COURTROOM CLERK, HEATHER 280.9 Anemia Hypochromic / Microcytic 07/07/2010 [facility] SENIOR COURTROOM CLERK, HEATHER 796.2 Prehypertension 07/07/2010 [facility] SENIOR COURTROOM CLERK, HEATHER V04.81 Influenza Vaccine 07/07/2010 BRAN[facility] SENIOR COURTROOM CLERK, HEATHER V68.89 Encounters For Other Specified Administrative Purpose 07/07/2010 BRAN[facility] SENIOR COURTROOM CLERK, HEATHER V72.31 Routine Pelvic Exam 07/07/2010 [facility] SENIOR COURTROOM CLERK, HEATHER 280.9 Anemia Hypochromic / Microcytic 07/07/2010 [facility] SENIOR COURTROOM CLERK, HEATHER 796.2 Prehypertension 07/07/2010 [facility] SENIOR COURTROOM CLERK, HEATHER V04.81 Influenza Vaccine 07/07/2010 [facility] SENIOR COURTROOM CLERK, HEATHER V68.89 Encounters For Other Specified Administrative Purpose 07/07/2010 [facility] SENIOR COURTROOM CLERK, HEATHER V72.31 Routine Pelvic Exam 07/07/2010 [facility] SENIOR COURTROOM CLERKMARIANNA 280.9 Anemia Hypochromic / Microcytic 07/07/2010 [facility] SENIOR COURTROOM CLERK, MARIANNA 796.2 Prehypertension 07/07/2010 [facility] SENIOR COURTROOM CLERK MARIANNA V04.81 Influenza Vaccine 07/07/2010 [facility] SENIOR COURTROOM CLERK MARIANNA V68.89 Encounters For Other Specified Administrative Purpose 07/07/2010 [facility] SENIOR COURTROOM CLERKMARIANNA V72.31 Routine Pelvic Exam 07/07/2010 [facility] SENIOR COURTROOM CLERKMARIANNA Sunshine 280.9 Anemia Hypochromic / Microcytic 07/07/2010 [facility] SENIOR COURTROOM CLERKMARIANNA Sunshine 796.2 Prehypertension 07/07/2010 [facility] SENIOR COURTROOM CLERKMARIANNA V04.81 Influenza Vaccine 07/07/2010 [facility] SENIOR COURTROOM CLERKMARIANNA V68.89 Encounters For Other Specified Administrative Purpose 07/07/2010 [facility] SENIOR COURTROOM CLERKMARIANNA V72.31 Routine Pelvic Exam 10/20/2010 BRANDEE SENIOR COURTROOM CLERK, HEATHER 112.1 Candidiasis, Of Vulva And Vagina 10/20/2010 BRAN[facility] SENIOR COURTROOM CLERK, HEATHER 599.0 Uti 10/20/2010 BRAN[facility] SENIOR COURTROOM CLERK, HEATHER 112.1 Candidiasis, Of Vulva And Vagina 10/20/2010 BRAN[facility] SENIOR COURTROOM CLERK, HEATHER 599.0 Uti 10/20/2010 [facility] SENIOR COURTROOM CLERK, HEATHER 112.1 Candidiasis, Of Vulva And Vagina 10/20/2010 [facility] SENIOR COURTROOM CLERK, HEATHER 599.0 Uti 10/20/2010 BRAN[facility]E SENIOR COURTROOM CLERK, HEATHER 112.1 Candidiasis, Of Vulva And Vagina 10/20/2010 BRAN[facility] SENIOR COURTROOM CLERK, HEATHER 599.0 Uti 10/20/2010 BR[facility] SENIOR COURTROOM CLERK, HEATHER 112.1 Candidiasis, Of Vulva And Vagina 10/20/2010 BRAN[facility]E SENIOR COURTROOM CLERK, HEATHER 599.0 Uti 10/20/2010 BRAN[facility]E SENIOR COURTROOM CLERK, HEATHER 112.1 Candidiasis, Of Vulva And Vagina 10/20/2010 [facility] SENIOR COURTROOM CLERK, HEATHER 599.0 Uti 10/20/2010 [facility] SENIOR COURTROOM CLERK, HEATHER 112.1 Candidiasis, Of Vulva And Vagina 10/20/2010 BRAN[facility]E SENIOR COURTROOM CLERK, HEATHER 599.0 Uti 10/20/2010 [facility] SENIOR COURTROOM CLERK, MARIANNA 112.1 Candidiasis, Of Vulva And Vagina 10/20/2010 [facility] SENIOR COURTROOM CLERK, MARIANNA 599.0 Uti 10/20/2010 [facility] SENIOR COURTROOM CLERKENE 112.1 Candidiasis, Of Vulva And Vagina 10/20/2010 [facility] SENIOR COURTROOM CLERK, MARIANNA 599.0 Uti 10/24/2010 [facility] SENIOR COURTROOM CLERK, HEATHER 250.00 DIABETES MELLITUS TYPE 2 10/24/2010 BRANDEE SENIOR COURTROOM CLERK, HEATHER 466.0 Bronchitis, Acute 10/24/2010 BRAN[facility]E SENIOR COURTROOM CLERK, HEATHER 496 PULMONARY OBSTRUCTIVE DISORDERS 10/24/2010 BR[facility] SENIOR COURTROOM CLERK, HEATHER 250.00 DIABETES MELLITUS TYPE 2 10/24/2010 [facility] SENIOR COURTROOM CLERK, HEATHER 466.0 Bronchitis, Acute 10/24/2010 BR[facility] SENIOR COURTROOM CLERK, HEATHER 496 PULMONARY OBSTRUCTIVE DISORDERS 10/24/2010 BR[facility] SENIOR COURTROOM CLERK, HEATHER 250.00 DIABETES MELLITUS TYPE 2 10/24/2010 [facility] SENIOR COURTROOM CLERK, HEATHER 466.0 Bronchitis, Acute 10/24/2010 [facility] SENIOR COURTROOM CLERK, HEATHER 496 PULMONARY OBSTRUCTIVE DISORDERS 10/24/2010 BR[facility] SENIOR COURTROOM CLERK, HEATHER 250.00 DIABETES MELLITUS TYPE 2 10/24/2010 [facility] SENIOR COURTROOM CLERK, HEATHER 466.0 Bronchitis, Acute 10/24/2010 [facility] SENIOR COURTROOM CLERK, HEATHER 496 PULMONARY OBSTRUCTIVE DISORDERS 10/24/2010 [facility] SENIOR COURTROOM CLERK, HEATHER 250.00 DIABETES MELLITUS TYPE 2 10/24/2010 BR[facility] SENIOR COURTROOM CLERK, HEATHER 466.0 Bronchitis, Acute 10/24/2010 BRAN[facility] SENIOR COURTROOM CLERK, HEATHER 496 PULMONARY OBSTRUCTIVE DISORDERS 10/24/2010 BR[facility] SENIOR COURTROOM CLERK, HEATHER 250.00 DIABETES MELLITUS TYPE 2 10/24/2010 BRAN[facility] SENIOR COURTROOM CLERK, HEATHER 466.0 Bronchitis, Acute 10/24/2010 BRAN[facility]E SENIOR COURTROOM CLERK, HEATHER 496 PULMONARY OBSTRUCTIVE DISORDERS 10/24/2010 BRAN[facility] SENIOR COURTROOM CLERK, HEATHER 250.00 DIABETES MELLITUS TYPE 2 10/24/2010 BR[facility] SENIOR COURTROOM CLERK, HEATHER 466.0 Bronchitis, Acute 10/24/2010 BRAN[facility] SENIOR COURTROOM CLERK, HEATHER 496 PULMONARY OBSTRUCTIVE DISORDERS 10/24/2010 [facility] SENIOR COURTROOM CLERK, MARIANNA 250.00 DIABETES MELLITUS TYPE 2 10/24/2010 [facility] SENIOR COURTROOM CLERK, MARIANNA 466.0 Bronchitis, Acute 10/24/2010 [facility] SENIOR COURTROOM CLERK, MARIANNA 496 PULMONARY OBSTRUCTIVE DISORDERS 10/24/2010 [facility] SENIOR COURTROOM CLERK, MARIANNA 250.00 DIABETES MELLITUS TYPE 2 10/24/2010 [facility] SENIOR COURTROOM CLERK, MARIANNA 466.0 Bronchitis, Acute 10/24/2010 [facility] SENIOR COURTROOM CLERK, MARIANNA 496 PULMONARY OBSTRUCTIVE DISORDERS 05/12/2011 [facility] SENIOR COURTROOM CLERK, HEATHER 703.0 Ingrowing Nail 05/12/2011 [facility] SENIOR COURTROOM CLERK, HEATHER 726.91 EXOSTOSIS OF UNSPECIFIED SITE 05/12/2011 [facility] SENIOR COURTROOM CLERK, HEATHER 703.0 Ingrowing Nail 05/12/2011 [facility] SENIOR COURTROOM CLERK, HEATHER 726.91 EXOSTOSIS OF UNSPECIFIED SITE 05/12/2011 BRAN[facility] SENIOR COURTROOM CLERK, HEATHER 703.0 Ingrowing Nail 05/12/2011 BRAN[facility] SENIOR COURTROOM CLERK, HEATHER 726.91 EXOSTOSIS OF UNSPECIFIED SITE 05/12/2011 [facility] SENIOR COURTROOM CLERK, HEATHER 703.0 Ingrowing Nail 05/12/2011 [facility] SENIOR COURTROOM CLERK, HEATHER 726.91 EXOSTOSIS OF UNSPECIFIED SITE 05/12/2011 [facility] SENIOR COURTROOM CLERK, HEATHER 703.0 Ingrowing Nail 05/12/2011 [facility] SENIOR COURTROOM CLERK, HEATHER 726.91 EXOSTOSIS OF UNSPECIFIED SITE 05/12/2011 [facility] SENIOR COURTROOM CLERK, HEATHER 703.0 Ingrowing Nail 05/12/2011 [facility] SENIOR COURTROOM CLERK, HEATHER 726.91 EXOSTOSIS OF UNSPECIFIED SITE 05/12/2011 [facility] SENIOR COURTROOM CLERK, HEATHER 703.0 Ingrowing Nail 05/12/2011 [facility] SENIOR COURTROOM CLERK, HEATHER 726.91 EXOSTOSIS OF UNSPECIFIED SITE 05/12/2011 [facility] SENIOR COURTROOM CLERK, MARIANNA 703.0 Ingrowing Nail 05/12/2011 [facility] SENIOR COURTROOM CLERK, MARIANNA 726.91 EXOSTOSIS OF UNSPECIFIED SITE 05/12/2011 [facility] SENIOR COURTROOM CLERK, MARIANNA 703.0 Ingrowing Nail 05/12/2011 [facility] SENIOR COURTROOM CLERK, MARIANNA 726.91 EXOSTOSIS OF UNSPECIFIED SITE 06/02/2011 [facility] SENIOR COURTROOM CLERK, HEATHER 078.12 Plantar Wart 06/02/2011 [facility] SENIOR COURTROOM CLERK, HEATHER 078.12 Plantar Wart 06/02/2011 [facility] SENIOR COURTROOM CLERK, HEATHER 078.12 Plantar Wart 06/02/2011 [facility] SENIOR COURTROOM CLERK, HEATHER 078.12 Plantar Wart 06/02/2011 [facility] SENIOR COURTROOM CLERK, HEATHER 078.12 Plantar Wart 06/02/2011 [facility] SENIOR COURTROOM CLERK, HEATHER 078.12 Plantar Wart 06/02/2011 [facility] SENIOR COURTROOM CLERK, HEATHER 078.12 Plantar Wart 06/02/2011 [facility] SENIOR COURTROOM CLERK, MARIANNA 078.12 Plantar Wart 06/02/2011 [facility] SENIOR COURTROOM CLERK, MARIANNA 078.12 Plantar Wart 07/05/2011 [facility] SENIOR COURTROOM CLERK, HEATHER 466.0 ACUTE BRONCHITIS 07/05/2011 [facility] SENIOR COURTROOM CLERK, HEATHER 466.0 ACUTE BRONCHITIS 07/05/2011 [facility] SENIOR COURTROOM CLERK, HEATHER 466.0 ACUTE BRONCHITIS 07/05/2011 [facility] SENIOR COURTROOM CLERK, HEATHER 466.0 ACUTE BRONCHITIS 07/05/2011 [facility] SENIOR COURTROOM CLERK, HEATHER 466.0 ACUTE BRONCHITIS 07/05/2011 [facility] SENIOR COURTROOM CLERK, HEATHER 466.0 ACUTE BRONCHITIS 07/05/2011 [facility] SENIOR COURTROOM CLERK, HEATHER 466.0 ACUTE BRONCHITIS 07/05/2011 [facility] SENIOR COURTROOM CLERK, MARIANNA 466.0 ACUTE BRONCHITIS 07/05/2011 [facility] SENIOR COURTROOM CLERK, MARIANNA 466.0 ACUTE BRONCHITIS 11/20/2011 [facility] SENIOR COURTROOM CLERK, HEATHER 682.9 CELLULITIS 11/20/2011 [facility] SENIOR COURTROOM CLERK, HEATHER 682.9 CELLULITIS 11/20/2011 [facility] SENIOR COURTROOM CLERK, HEATHER 682.9 CELLULITIS 11/20/2011 [facility] SENIOR COURTROOM CLERK, HEATHER 682.9 CELLULITIS 11/20/2011 [facility] SENIOR COURTROOM CLERK, HEATHER 682.9 CELLULITIS 11/20/2011 [facility] SENIOR COURTROOM CLERK, HEATHER 682.9 CELLULITIS 11/20/2011 [facility] SENIOR COURTROOM CLERK, HEATHER 682.9 CELLULITIS 11/20/2011 [facility] SENIOR COURTROOM CLERK, MARIANNA 682.9 CELLULITIS 11/20/2011 [facility] SENIOR COURTROOM CLERK, MARIANNA 682.9 CELLULITIS 12/22/2011 [facility] SENIOR COURTROOM CLERK, HEATHER 401.1 ESSENTIAL HYPERTENSION BENIGN 12/22/2011 [facility] SENIOR COURTROOM CLERK, HEATHER 401.1 ESSENTIAL HYPERTENSION BENIGN 12/22/2011 [facility] SENIOR COURTROOM CLERK, HEATHER 401.1 ESSENTIAL HYPERTENSION BENIGN 12/22/2011 ALEX IRVIN APRNEN 401.1 ESSENTIAL HYPERTENSION BENIGN 12/22/2011 BRANDEE ULLOANALEXEN 401.1 ESSENTIAL HYPERTENSION BENIGN 12/22/2011 BRANDEE ULLOANALEXEN 401.1 ESSENTIAL HYPERTENSION BENIGN 12/22/2011 BRANDEE ULLOANALEXEN 401.1 ESSENTIAL HYPERTENSION BENIGN 12/22/2011 [facility] SENIOR COURTROOM CLERKMARIANNA 401.1 ESSENTIAL HYPERTENSION BENIGN 12/22/2011 [facility] SENIOR COURTROOM CLERKMARIANNA 401.1 ESSENTIAL HYPERTENSION BENIGN 04/09/2012 BR[facility]E SENIOR COURTROOM CLERK, HEATHER 272.2 HYPERLIPIDEMIA 04/09/2012 BRANDEEALEX JONES APRNEN V04.81 Need For Prophylactic Vaccination And Inoculation Against Influenza 04/09/2012 BRAN[facility]E SENIOR COURTROOM CLERKHEATHER Sunshine 272.2 HYPERLIPIDEMIA 04/09/2012 BRAN[facility]E SENIOR COURTROOM CLERK, HEATHER V04.81 Need For Prophylactic Vaccination And Inoculation Against Influenza 04/09/2012 [facility]E SENIOR COURTROOM CLERK, HEATHER 272.2 HYPERLIPIDEMIA 04/09/2012 BR[facility]E SENIOR COURTROOM CLERK, HEATHER V04.81 Need For Prophylactic Vaccination And Inoculation Against Influenza 04/09/2012 BRAN[facility]E SENIOR COURTROOM CLERK, HEATHER 272.2 HYPERLIPIDEMIA 04/09/2012 [facility] SENIOR COURTROOM CLERK, HEATHER V04.81 Need For Prophylactic Vaccination And Inoculation Against Influenza 04/09/2012 BR[facility]E SENIOR COURTROOM CLERK, HEATHER 272.2 HYPERLIPIDEMIA 04/09/2012 [facility] SENIOR COURTROOM CLERK, HEATHER V04.81 Need For Prophylactic Vaccination And Inoculation Against Influenza 04/09/2012 BR[facility]E SENIOR COURTROOM CLERK, HEATHER 272.2 HYPERLIPIDEMIA 04/09/2012 [facility] SENIOR COURTROOM CLERK, HEATHER V04.81 Need For Prophylactic Vaccination And Inoculation Against Influenza 04/09/2012 BRANDEE SENIOR COURTROOM CLERKHEATHER Sunshine 272.2 HYPERLIPIDEMIA 04/09/2012 [facility] SENIOR COURTROOM CLERK, HEATHER V04.81 Need For Prophylactic Vaccination And Inoculation Against Influenza 04/09/2012 MARIANNA FAUST APRN 272.2 HYPERLIPIDEMIA 04/09/2012 MARIANNA FAUST APRN V04.81 Need For Prophylactic Vaccination And Inoculation Against Influenza 04/09/2012 GOVIND MARIANNA WRIGHT 272.2 HYPERLIPIDEMIA 04/09/2012 MARIANNA FAUST APRN V04.81 Need For Prophylactic Vaccination And Inoculation Against Influenza 05/14/2012 BRANDEE HEATHER WRIGHT 682.9 Cellulitis/abscess 05/14/2012 [facility] SENIOR COURTROOM CLERK, HEATHER 682.9 Cellulitis/abscess 05/14/2012 [facility] SENIOR COURTROOM CLERK, HEATHER 682.9 Cellulitis/abscess 05/14/2012 [facility] SENIOR COURTROOM CLERK, HEATHER 682.9 Cellulitis/abscess 05/14/2012 [facility] SENIOR COURTROOM CLERK, HEATHER 682.9 Cellulitis/abscess 05/14/2012 [facility] SENIOR COURTROOM CLERK, HEATHER 682.9 Cellulitis/abscess 05/14/2012 [facility] SENIOR COURTROOM CLERK, HEATHER 682.9 Cellulitis/abscess 05/14/2012 [facility] SENIOR COURTROOM CLERK, MARIANNA 682.9 Cellulitis/abscess 05/14/2012 [facility] SENIOR COURTROOM CLERK, MARIANNA 682.9 Cellulitis/abscess 06/24/2012 [facility] SENIOR COURTROOM CLERK, HEATHER 112.1 Candidiasis, Of Vulva And Vagina 06/24/2012 [facility] SENIOR COURTROOM CLERK, HEATHER 112.1 Candidiasis, Of Vulva And Vagina 06/24/2012 [facility] SENIOR COURTROOM CLERK, HEATHER 112.1 Candidiasis, Of Vulva And Vagina 06/24/2012 [facility] SENIOR COURTROOM CLERK, HEATHER 112.1 Candidiasis, Of Vulva And Vagina 06/24/2012 BR[facility] SENIOR COURTROOM CLERK, HEATHER 112.1 Candidiasis, Of Vulva And Vagina 06/24/2012 [facility] SENIOR COURTROOM CLERK, HEATHER 112.1 Candidiasis, Of Vulva And Vagina 06/24/2012 [facility] SENIOR COURTROOM CLERK, HEATHER 112.1 Candidiasis, Of Vulva And Vagina 06/24/2012 [facility] SENIOR COURTROOM CLERK, MARIANNA 112.1 Candidiasis, Of Vulva And Vagina 06/24/2012 [facility] SENIOR COURTROOM CLERK, MARIANNA 112.1 Candidiasis, Of Vulva And Vagina 06/28/2012 [facility] SENIOR COURTROOM CLERK, HEATHER 110.1 Onychomycosis 06/28/2012 [facility] SENIOR COURTROOM CLERK, HEATHER 703.8 Other Specified Diseases Of Nail 06/28/2012 [facility] SENIOR COURTROOM CLERK, HEATHER 110.1 Onychomycosis 06/28/2012 [facility] SENIOR COURTROOM CLERK, HEATHER 703.8 Other Specified Diseases Of Nail 06/28/2012 [facility] SENIOR COURTROOM CLERK, HEATHER 110.1 Onychomycosis 06/28/2012 [facility] SENIOR COURTROOM CLERK, HEATHER 703.8 Other Specified Diseases Of Nail 06/28/2012 [facility] SENIOR COURTROOM CLERK, HEATHER 110.1 Onychomycosis 06/28/2012 [facility] SENIOR COURTROOM CLERK, HEATHER 703.8 Other Specified Diseases Of Nail 06/28/2012 [facility] SENIOR COURTROOM CLERK, HEATHER 110.1 Onychomycosis 06/28/2012 [facility] SENIOR COURTROOM CLERK, HEATHER 703.8 Other Specified Diseases Of Nail 06/28/2012 [facility] SENIOR COURTROOM CLERK, HEATHER 110.1 Onychomycosis 06/28/2012 [facility] SENIOR COURTROOM CLERK, HEATHER 703.8 Other Specified Diseases Of Nail 06/28/2012 [facility] SENIOR COURTROOM CLERK, HEATHER 110.1 Onychomycosis 06/28/2012 [facility] SENIOR COURTROOM CLERK, HEATHER 703.8 Other Specified Diseases Of Nail 06/28/2012 [facility] SENIOR COURTROOM CLERK, MARIANNA 110.1 Onychomycosis 06/28/2012 [facility] SENIOR COURTROOM CLERK, MARIANNA 703.8 Other Specified Diseases Of Nail 06/28/2012 [facility] SENIOR COURTROOM CLERK, MARIANNA 110.1 Onychomycosis 06/28/2012 [facility] SENIOR COURTROOM CLERK, MARIANNA 703.8 Other Specified Diseases Of Nail 08/21/2012 [facility] SENIOR COURTROOM CLERK, HEATHER 682.9 Cellulitis/abscess 08/21/2012 [facility] SENIOR COURTROOM CLERK, HEATHER V72.31 Gynecological Exam 08/21/2012 [facility] SENIOR COURTROOM CLERK, HEATHER 682.9 Cellulitis/abscess 08/21/2012 [facility] SENIOR COURTROOM CLERK, HEATHER V72.31 Gynecological Exam 08/21/2012 [facility] SENIOR COURTROOM CLERK, HEATHER 682.9 Cellulitis/abscess 08/21/2012 [facility] SENIOR COURTROOM CLERK, HEATHER V72.31 Gynecological Exam 08/21/2012 [facility] SENIOR COURTROOM CLERK, HEATHER 682.9 Cellulitis/abscess 08/21/2012 [facility] SENIOR COURTROOM CLERK, HEATHER V72.31 Gynecological Exam 08/21/2012 BR[facility]E SENIOR COURTROOM CLERK, HEATHER 682.9 Cellulitis/abscess 08/21/2012 [facility] SENIOR COURTROOM CLERK, HEATHER V72.31 Gynecological Exam 08/21/2012 [facility] SENIOR COURTROOM CLERK, HEATHER 682.9 Cellulitis/abscess 08/21/2012 BRANDEE SENIOR COURTROOM CLERK, HEATHER V72.31 Gynecological Exam 08/21/2012 BRANDEE SENIOR COURTROOM CLERK, HEATHER 682.9 Cellulitis/abscess 08/21/2012 BRANDEE SENIOR COURTROOM CLERK, HEATHER V72.31 Gynecological Exam 08/21/2012 GOVIND SENIOR COURTROOM CLERK, MARIANNA 682.9 Cellulitis/abscess 08/21/2012 GOVIND SENIOR COURTROOM CLERK, MARIANNA V72.31 Gynecological Exam 08/21/2012 GOVIND SENIOR COURTROOM CLERK, MARIANNA 682.9 Cellulitis/abscess 08/21/2012 GOVIND SENIOR COURTROOM CLERK, MARIANNA V72.31 Gynecological Exam 10/08/2012 BRANDEE SENIOR COURTROOM CLERK, HEATHER 466.0 Bronchitis, Acute 10/08/2012 BRANDEE SENIOR COURTROOM CLERK, HEATHER 466.0 Bronchitis, Acute 10/08/2012 BRANDEE SENIOR COURTROOM CLERK, HEATHER 466.0 Bronchitis, Acute 10/08/2012 BRANDEE SENIOR COURTROOM CLERK, HEATHER 466.0 Bronchitis, Acute 10/08/2012 BRANDEE SENIOR COURTROOM CLERK, HEATHER 466.0 Bronchitis, Acute 10/08/2012 BRANDEE SENIOR COURTROOM CLERK, HEATHER 466.0 Bronchitis, Acute 10/08/2012 BRANDEE SENIOR COURTROOM CLERK, HEATHER 466.0 Bronchitis, Acute 10/08/2012 GOVIND SENIOR COURTROOM CLERK, MARIANNA 466.0 Bronchitis, Acute 10/08/2012 GOVIND SENIOR COURTROOM CLERK, MARIANNA 466.0 Bronchitis, Acute 12/05/2012 BRANDEE SENIOR COURTROOM CLERK, HEATHER 599.0 Uti 12/05/2012 BRANDEE SENIOR COURTROOM CLERK, HEATHER 599.0 Uti 12/05/2012 BRANDEE SENIOR COURTROOM CLERK, HEATHER 599.0 Uti 12/05/2012 BRANDEE SENIOR COURTROOM CLERK, HEATHER 599.0 Uti 12/05/2012 BRANDEE SENIOR COURTROOM CLERK, HEATHER 599.0 Uti 12/05/2012 BRANDEE SENIOR COURTROOM CLERK, HEATHER 599.0 Uti 12/05/2012 BRANDEE SENIOR COURTROOM CLERK, HEATHER 599.0 Uti 12/05/2012 GOVIND SENIOR COURTROOM CLERK, MARIANNA 599.0 Uti 12/05/2012 GOVIND SENIOR COURTROOM CLERK, MARIANNA 599.0 Uti 05/21/2013 BRANDEE SENIOR COURTROOM CLERK, HEATHER 285.9 ANEMIA, UNSPECIFIED 05/21/2013 BRANDEE SENIOR COURTROOM CLERK, HEATHER 285.9 ANEMIA, UNSPECIFIED 05/21/2013 BRANDEE SENIOR COURTROOM CLERK, HEATHER 285.9 ANEMIA, UNSPECIFIED 05/21/2013 BRANDEE SENIOR COURTROOM CLERK, HEATHER 285.9 ANEMIA, UNSPECIFIED 05/21/2013 BRANDEE SENIOR COURTROOM CLERK, HEATHER 285.9 ANEMIA, UNSPECIFIED 05/21/2013 BRANDEE SENIOR COURTROOM CLERK, HEATHER 285.9 ANEMIA, UNSPECIFIED 05/21/2013 BRANDEE SENIOR COURTROOM CLERK, HEATHER 285.9 ANEMIA, UNSPECIFIED 05/21/2013 GOVIND SENIOR COURTROOM CLERK MARIANNA 285.9 ANEMIA, UNSPECIFIED 08/07/2013 BRANDEE SENIOR COURTROOM CLERK, HEATHER 682.5 CELLULITIS AND ABSCESS OF BUTTOCK 08/07/2013 BRANDEE SENIOR COURTROOM CLERK, HEATHER 682.5 CELLULITIS AND ABSCESS OF BUTTOCK 08/07/2013 BRANDEE SENIOR COURTROOM CLERK, HEATHER 682.5 CELLULITIS AND ABSCESS OF BUTTOCK 08/07/2013 BRANDEE SENIOR COURTROOM CLERK, HEATHER 682.5 CELLULITIS AND ABSCESS OF BUTTOCK 08/07/2013 BRANDEE SENIOR COURTROOM CLERK, HEATHER 682.5 CELLULITIS AND ABSCESS OF BUTTOCK 08/07/2013 BRANDEE SENIOR COURTROOM CLERK, HEATHER 682.5 CELLULITIS AND ABSCESS OF BUTTOCK 08/07/2013 BRANDEE SENIOR COURTROOM CLERK, HEATHER 682.5 CELLULITIS AND ABSCESS OF BUTTOCK 12/12/2013 BRANDEE SENIOR COURTROOM CLERK, HEATHER 250.02 DIABETES MELLITUS WITHOUT MENTION OF COMPLICATION TYPE II OR UNSPECIFIED TYPE UNCONTROLLED 12/12/2013 BRANDEE SENIOR COURTROOM CLERK, HEATHER 250.02 DIABETES MELLITUS WITHOUT MENTION OF COMPLICATION TYPE II OR UNSPECIFIED TYPE UNCONTROLLED 12/12/2013 BRANDEE SENIOR COURTROOM CLERK, HEATHER 250.02 DIABETES MELLITUS WITHOUT MENTION OF COMPLICATION TYPE II OR UNSPECIFIED TYPE UNCONTROLLED 12/12/2013 BRANDEE SENIOR COURTROOM CLERK, HEATHER 250.02 DIABETES MELLITUS WITHOUT MENTION OF [...] obesity due to excess calories 07/03/2018 Halle Zapaat MD Z68.38 BMI 38-38.9 07/10/2018 Halle Zapata [...] Procedures Code Description [place] [address] GLUCOSE 05/08/2013 34411 HEMOGLOBIN A1C 05/08/2013 G0008 ADMIN FEE (MEDICARE) INFLUENZA 05/14/2013 11722 CBC - CBC WITH DIFF - LC 05/15/2013 91461 COMP - COMPREHENSIVE PANEL - LC 05/15/2013 39102 LIPID - LIPID PANEL - LC 05/15/2013 25384 TSH - TSH - LC 05/15/2013 96475 MALB - MICROALBUMIN - LC 05/15/2013 76050 GLUCOSE 08/11/2013 80935 HEMOGLOBIN A1C 08/11/2013 10471 CBC WITH DIFF 08/12/2013 45477 GLUCOSE 10/07/2013 4000F TOBACCO USE TXMNT COUNSELING 10/13/2013 09889 PULSE OXIMETRY 12/12/2013 A4614 PEAK FLOW 12/12/2013 36402 GLUCOSE 12/12/2013 62313 HEMOGLOBIN A1C 12/12/2013 Pulmonary Pulmonary Function Test 01/13/2014 A4614 PEAK FLOW 02/10/2014 00210 PULSE OXIMETRY 02/10/2014 87510 GLUCOSE 02/10/2014 Endocrino Endocrinology 02/13/2014 Pulmonary Pulmonology, Pulmonology 03/13/2014 99341 PULSE OXIMETRY 04/14/2014 A4614 PEAK FLOW 04/14/2014 [...] measurement by glucometer (mass/volume) 444 mg/dL 70-110 Capillary blood glucose measurement by glucometer (mass/volume) - 10/13/18 17: 20 Capillary blood glucose measurement by glucometer (mass/volume) 228 mg/dL 70-110 Complete blood count (CBC) with automated white blood cell (WBC) differential - 10/13/18 17:36 Blood leukocytes automated count (number/volume) 3.2 10*3/uL 4.3-11.0 Blood erythrocytes automated count (number/volume) 3.97 10*6/uL 4.35-5.85 Venous blood hemoglobin measurement (mass/volume) 10.3 g/dL 11.5-16.0 Blood hematocrit (volume fraction) 33 % 35-52 Automated erythrocyte mean corpuscular volume 83 [foz_us] 80-99 Automated erythrocyte mean corpuscular hemoglobin (mass per erythrocyte) 26 pg 25-34 Automated erythrocyte mean corpuscular hemoglobin concentration measurement ( mass/volume) 31 g/dL 32-36 Automated erythrocyte distribution width ratio 19.6 % 10.0-14.5 Automated blood platelet count (count/volume) 478 10*3/uL 130-400 Automated blood platelet mean volume measurement 10.1 [foz_us] 7.4-10.4 Automated blood neutrophils/100 leukocytes 39 % 42-75 Automated blood lymphocytes/100 leukocytes 53 % 12-44 Blood monocytes/100 leukocytes 4 % 0-12 Automated blood eosinophils/100 leukocytes 3 % 0-10 Automated blood basophils/100 leukocytes 1 % 0-10 Blood neutrophils automated count (number/volume) 1.2 10*3 1.8-7.8 Blood lymphocytes automated count (number/volume) 1.7 10*3 1.0-4.0 Blood monocytes automated count (number/volume) 0.1 10*3 0.0-1.0 Automated eosinophil count 0.1 10*3/uL 0.0-0.3 Automated blood basophil count (count/volume) 0.0 10*3/uL 0.0-0.1 Fibrin D-dimer FEU measurement in platelet poor plasma (mass/volume) - 17:36 Fibrin D-dimer FEU measurement in platelet poor plasma (mass/volume) 1.25 ug/mL 0.00-0.49 PT panel in platelet poor plasma by coagulation assay - 10/13/18 17:36 Prothrombin time (PT) in platelet poor plasma by coagulation assay 12.9 s 12.2-14.7 INR in platelet poor plasma or blood by coagulation assay 1.0 0.8-1.4 Activated partial thromboplastin time (aPTT) in platelet poor plasma bycoagulation assay - 10/13/18 17:36 Activated partial thromboplastin time (aPTT) in platelet poor plasma bycoagulation assay 25 s 24-35 TROPONIN T - 10/13/18 17:36 TROPONIN T 8 % <=10 Comprehensive metabolic panel - 10/13/18 17:36 Serum or plasma sodium measurement (moles/volume) 137 mmol/L 135-145 Serum or plasma potassium measurement (moles/volume) 4.2 mmol/L 3.6-5.0 Serum or plasma chloride measurement (moles/volume) 98 mmol/L 98-107 Carbon dioxide 25 mmol/L 21-32 Serum or plasma anion gap determination (moles/volume) 14 mmol/L 5-14 Serum or plasma urea nitrogen measurement (mass/volume) 17 mg/dL 7-18 Serum or plasma creatinine measurement (mass/volume) 0.98 mg/dL 0.60-1.30 Serum or plasma urea nitrogen/creatinine mass ratio 17 NRG Serum or plasma creatinine measurement with calculation of estimated glomerular filtration rate 60 NRG Serum or plasma glucose measurement (mass/volume) 229 mg/dL 70-105 Serum or plasma calcium measurement (mass/volume) 9.7 mg/dL 8.5-10.1 Serum or plasma total bilirubin measurement (mass/volume) 0.2 mg/dL 0.1-1.0 Serum or plasma alkaline phosphatase measurement (enzymatic activity/volume) 122 U/L 40-136 Serum or plasma aspartate aminotransferase measurement (enzymatic activity/ volume) 14 U/L 5-34 Serum or plasma alanine aminotransferase measurement (enzymatic activity/volume ) 22 U/L 0-55 Serum or plasma protein measurement (mass/volume) 7.4 g/dL 6.4-8.2 Serum or plasma albumin measurement (mass/volume) 4.1 g/dL 3.2-4.5 CALCIUM CORRECTED 9.6 mg/dL 8.5-10.1 Magnesium - 10/13/18 17:36 Magnesium 2.1 mg/dL 1.8-2.4 Encounters ACCT No. Visit Date/Time Discharge Status Pt. Type Provider Facility Loc./Unit Complaint [id number] 09/25/2018 12:21:00 ACT Unknown Halle Zapata MD [id number] 08/26/2018 07:22:56 08/26/2018 23:59:59 DIS Outpatient DANAY SORIA V [facility] [id number] 05/30/2018 08:41:17 05/30/2018 23:59:59 DIS Outpatient LINDA ZAPATA [facility] [id number] 04/25/2018 12:24:37 04/25/2018 23:59:59 CLS Preadmit LINDA ZAPATA [facility] ops [id number] 08/06/2018 13:35:03 Document Registration [id number] 07/05/2018 09:35:35 ACT V AMADOU ROBERT [facility] [id number] 06/18/2018 06:13:13 Inpatient LINDA ZAPATA [facility] ops [id number] 10/13/2018 17:02:00 10/13/2018 20:45:00 DIS Emergency DANIEL HERNANDEZ MD [facility] ER FS CHEST PAIN,SOB [id number] 09/18/2018 20:56:00 09/19/2018 07:30:00 DIS Outpatient NOEL DICK DO [facility] ER FS HIGH BLOOD SUGAR, SOB [id number] 09/12/2018 14:20:00 09/12/2018 15:56:00 DIS Emergency DANIEL HERNANDEZ MD [facility] ER FS FALL; RT HIP/MI WRIST INJ [id number] 10/15/2014 15:34:45 ACT Document Registration [id number] 10/07/2018 13:15:00 10/07/2018 23:59:59 CLS Outpatient PRIYA LIRIANO [facility] [id number] 04/14/2014 08:59:00 04/14/2014 11:05:00 DIS Outpatient HEATHER IRVIN APRN [id number] 02/10/2014 09:57:00 02/10/2014 23:59:59 CLS Outpatient HEATHER IRVIN APRN [id number] 02/10/2014 09:57:00 02/10/2014 23:59:59 CLS Outpatient HEATHER IRVIN APRN [id number] 12/12/2013 10:38:00 12/12/2013 23:59:59 CLS Outpatient HEATHER IRVIN APRN [id number] 10/07/2013 14:37:00 10/13/2013 20:05:00 DIS Outpatient HEATHER IRVIN APRN [id number] 10/07/2013 14:37:00 10/07/2013 23:59:59 CLS Outpatient HEATHER IRVIN APRN [id number] 08/11/2013 10:11:00 08/11/2013 13:49:00 DIS Outpatient HEATHER IRVIN APRN [id number] 05/08/2013 09:56:00 05/08/2013 23:59:59 CLS Outpatient MARIANNA FAUST APRN [id number] 01/08/2013 08:25:00 01/08/2013 23:59:59 CLS Outpatient MARIANNA FAUST APRN [id number] 10/15/2014 15:34:45 10/15/2014 23:59:00 [id number] 08/12/2014 12:31:00 08/12/2014 14:34:00 DIS [facility] [id number] 06/21/2014 16:47:00 06/21/2014 17:52:00 DIS [facility] [id number] 09/02/2014 00:00:00 Document Registration
[2018-10-16] MEDS ORDERED: NS IV 1000 ML 1,000 ML IV SCH (23:15)
[2018-10-16] MEDS ORDERED: RT-ALBUTEROL/IPRATROPIUM 3 ML (DUONEB) VIAL INH ONE (23:15)
[2018-10-16] MEDS ORDERED: methylPREDNISolone 40 MG/ML (Solu-MEDROL) VIAL IV ONE (23:15)
--- NOTE | 2018-10-16 23:20 | ED Respiratory ---
General Chief Complaint: Chest Pain Stated Complaint: CHEST PAINS Source: patient, EMS History of Present Illness Date Seen by Provider: Oct 16, 2018 Time Seen by Provider: 23:00 Initial Comments 53-year-old female presenting with EMS due to the shortness of breath. She states that this has been going on since this weekend. She was also evaluated in the emergency department on Sunday night October 13. She has a history of COPD and has been feeling short of breath because of that. 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 Guerra out of [place]. She states that her breathing pain with inspiration and is better when she does a breathing treatment but she has not done 1 since yesterday. Today she gone to [place] and they have given her some IV fluids. She is to go back tomorrow to start a course of 5 shots to help build up her white blood cell count so that she could get another round of chemotherapy. Tonight she was feeling short of breath with pain with inspiration and called EMS. She also felt like she was having a low blood pressure as part of why they had given her IV fluids at the cancer center in [place] today. On Sunday when she was seen in the emergency department they did do a CT scan of her chest to evaluate for cancer or blood clots and this was negative. She does have COPD and there were no signs of pneumonia. Timing/Duration: week (last few days), getting worse Prior Episodes/Possible Cause: chronic episodes, other (continues to smoke but is trying to cut back and quit tobacco) Modifying Factors: Improves With Albuterol Nebulizer Associated Symptoms: chest pain/soreness (worse with deep inspiration), cough, dizziness, lightheadedness, shortness of breath, wheezing Allergies and Home Medications Allergies Coded Allergies: No Known Drug Allergies (Unverified , 10/16/18) Patient Home Medication List Home Medication List Reviewed: Yes Review of Systems Review of Systems Constitutional: see HPI, dizziness, malaise, weakness EENTM: no symptoms reported Respiratory: see HPI, cough, dyspnea on exertion, short of breath; No stridor; wheezing Cardiovascular: chest pain (with deep inspiration) Gastrointestinal: no symptoms reported Genitourinary: no symptoms reported Musculoskeletal: no symptoms reported Skin: lesions (abrasion with surrounding redness on her left knee that is tender to touch) Psychiatric/Neurological: Weakness (generalized) Past Skqdxro-Azeore-Ifqmwe Hx Past Med/Social Hx: Reviewed Nursing Past Med/Soc Hx Patient Social History Drug of Choice: POT Recent Foreign Travel: No Contact w/Someone Who Travel: No Recent Hopitalizations: Yes Seasonal Allergies Seasonal Allergies: No Past Medical History Surgeries: Yes Abdominal, Hysterectomy, Nephrectomy Respiratory: Yes Asthma Currently Using CPAP: No Currently Using BIPAP: No Cardiac: No Hypertension 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 has multiple lesions on her abd and under the folds.) Blood Disorders: No Adverse Reaction/Blood Tranf: No Physical Exam Vital Signs - First Documented 10/16/18 10/16/18 23:06 23:38 Temp 97.4 Pulse 86 Resp 14 B/P (MAP) 112/59 (76) Pulse Ox 94 O2 Delivery Nasal Cannula O2 Flow Rate 2.00 Capillary Refill : Height: 5'7.00" Weight: 232lbs. oz. 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 There is no drainage and no fluctuance. There is also no streaking.) Progress/Results/Core Measures Suspected Sepsis SIRS Temperature: Pulse: Respiratory Rate: Laboratory Tests 10/16/18 23:23: White Blood Count 3.8L Blood Pressure / Mean: Laboratory Tests 10/16/18 23:23: Creatinine 1.15, Platelet Count 264, Total Bilirubin 0.2 Results/Orders Lab Results Laboratory Tests Test 10/16/18 23:23 Range/Units White Blood Count 3.8 L 4.3-11.0 10^3/uL Red Blood Count 3.42 L 4.35-5.85 10^6/uL Hemoglobin 9.0 L 11.5-16.0 G/DL Hematocrit 29 L 35-52 % Mean Corpuscular Volume 83 80-99 FL Mean Corpuscular Hemoglobin 26 25-34 PG Mean Corpuscular Hemoglobin Concent 32 32-36 G/DL Red Cell Distribution Width 19.2 H 10.0-14.5 % Platelet Count 264 130-400 10^3/uL Mean Platelet Volume 10.0 7.4-10.4 FL Neutrophils (%) (Auto) 39 L 42-75 % Lymphocytes (%) (Auto) 56 H 12-44 % Monocytes (%) (Auto) 3 0-12 % Eosinophils (%) (Auto) 0 0-10 % Basophils (%) (Auto) 2 0-10 % Neutrophils # (Auto) 1.5 L 1.8-7.8 X 10^3 Lymphocytes # (Auto) 2.1 1.0-4.0 X 10^3 Monocytes # (Auto) 0.1 0.0-1.0 X 10^3 Eosinophils # (Auto) 0.0 0.0-0.3 10^3/uL Basophils # (Auto) 0.1 0.0-0.1 10^3/uL Sodium Level 132 L 135-145 MMOL/L Potassium Level 3.7 3.6-5.0 MMOL/L Chloride Level 92 L 98-107 MMOL/L Carbon Dioxide Level 20 L 21-32 MMOL/L Anion Gap 20 H 5-14 MMOL/L Blood Urea Nitrogen 16 7-18 MG/DL Creatinine 1.15 0.60-1.30 MG/DL Estimat Glomerular Filtration Rate 50 BUN/Creatinine Ratio 14 Glucose Level 305 H 70-105 MG/DL Calcium Level 8.8 8.5-10.1 MG/DL Corrected Calcium 9.0 8.5-10.1 MG/DL Total Bilirubin 0.2 0.1-1.0 MG/DL Aspartate Amino Transf (AST/SGOT) 11 5-34 U/L Alanine Aminotransferase (ALT/SGPT) 18 0-55 U/L Alkaline Phosphatase 119 40-136 U/L Total Protein 6.7 6.4-8.2 GM/DL Albumin 3.8 3.2-4.5 GM/DL My Orders Orders - DIANE DELCID MD Cbc With Automated Diff (10/16/18 23:12) Comprehensive Metabolic Panel (10/16/18 23:12) Chest 1 View Ap/Pa Only (10/16/18 23:12) Albuterol/Ipra Inhalation Soln (Duoneb I (10/16/18 23:15) Ekg Tracing (10/16/18 23:12) O2 (10/16/18 23:12) Saline Lock/Iv-Start (10/16/18 23:12) Sputum Culture (10/16/18 23:12) Monitor-Rhythm Ecg Trace Only (10/16/18 23:12) Ns Iv 1000 Ml (Sodium Chloride 0.9%) (10/16/18 23:15) Methylprednisolone Sod Succ (Solu-Medrol (10/16/18 23:15) Svn Small Volume Nebulizer (10/16/18 23:12) Medications Given in ED Current Medications Medications Dose Ordered Sig/Yoselyn Route Start Time Stop Time Status Last Admin Dose Admin Albuterol/ Ipratropium 3 ml ONCE ONCE INH 10/16/18 23:15 10/16/18 23:16 DC 10/16/18 23:27 3 ML Methylprednisolone Sodium Succinate 40 mg ONCE ONCE IV 10/16/18 23:15 10/16/18 23:16 DC 10/16/18 23:27 40 MG Vital Signs/I&O 10/16/18 10/16/18 10/17/18 10/17/18 23:06 23:38 00:07 00:19 Temp 97.4 97.5 Pulse 86 82 Resp 14 14 B/P (MAP) 112/59 (76) 117/56 (76) Pulse Ox 94 100 100 O2 Delivery Nasal Cannula Nasal Cannula Nasal Cannula O2 Flow Rate 2.00 2.00 2.00 Capillary Refill : Progress Note #1: Time: 23:10 Progress Note Will check a chest x-ray, electrocardiogram, basic labs. We'll try giving the low-dose of steroids and Solu-Medrol 40 mg IV to help with her breathing as well as the chest pain with breathing as well as a DuoNeb breathing treatment. Obtain a sputum culture if she happens to cough up any phlegm. Progress Note #2: Time: 00:05 Progress Note On recheck she is feeling better after breathing treatment and fluids. Labs appear stable with chronic anemia and stable WBC count. Her CXR appears stable as well on my review of her 1 view film compared to her film from Sunday night. I do not see an infiltrate or effusion. Will have her increase her breathing treatments to 4 times a day for the next few days and follow up with clinic for continued concerns. If having fever or coughing up purulent sputum then she may also need an antibiotic. For the area on her left knee will have her use an antibiotic topical ointment 2 times a day and monitor for spreading redness or drainage. Encourage fluids and rest ECG Initial ECG Impression Date: Oct 16, 2018 Initial ECG Impression Time: 23:02 Initial ECG Rate: 80 Initial ECG Rhythm: Normal Sinus Initial ECG Intervals: Normal Initial ECG Intervals [place] interval of 200 ms. QT interval 410 ms with a QT corrected interval 472 ms. Initial ECG Impression: Normal Initial ECG Comparisson: No Previous ECG Available Comment She has no acute ST elevation or ischemic changes. There is no prior tracing immediately available for comparison. Diagnostic Imaging Diagonstic Imaging: Xray Plain Films/CT/US/NM/MRI: chest Comments on my review of her 1 view chest xray no acute infiltrate or effusion. appears stable compared to her film from 13 October 2018. Reviewed: Reviewed by Me Departure Impression Primary Impression: COPD with exacerbation Additional Impressions: Pleuritic chest pain Hypotension Qualified Codes: I95.9 - Hypotension, unspecified Abrasion, left knee, initial encounter Anemia, chronic disease Disposition: 01 HOME, SELF-CARE Condition: Stable Departure-Patient Inst. Decision time for Depature: 00:15 Referrals: NO,LOCAL PHYSICIAN (PCP/Family) Primary Care Physician Patient Instructions: Anemia of Chronic Disease (DC), Skin Abrasions, Exacerbation of COPD Add. Discharge Instructions: For the next 5 days make sure that you are using your breathing treatments or inhaler at least 4 times a day to help with shortness of breath and the pain with breathing in from inflammation due to your COPD. If you start running a fever over 101 F, coughing up thick phlegm with color to it, or the treatments are not helping then get rechecked. For the area on your knee keep clean with soap and water and apply antibiotic ointment 2 times a day for the next week to help it heal. All discharge instructions reviewed with patient and/or family. Voiced understanding. DIANE DELCID MD Oct 16, 2018 23:20
[2018-10-16 23:31] LABS: HEMATOCRIT 29 % (35-52); LYMPHOCYTES % (AUTO) 56 % (12-44); MEAN CORPUSCULAR HEMOGLOBIN 26 PG (25-34); MEAN CORPUSCULAR HGB CONC 32 G/DL (32-36); MEAN CORPUSCULAR VOLUME 83 FL (80-99); MONOCYTES % (AUTO) 3 % (0-12); NEUTROPHILS % (AUTO) 39 % (42-75); PLATELET COUNT 264 10^3/uL (130-400); RED CELL DISTRIBUTION WIDTH 19.2 % (10.0-14.5); WHITE BLOOD COUNT 3.8 10^3/uL (4.3-11.0)
[2018-10-16 23:32] LABS: BASOPHILS # (AUTO) 0.1 10^3/uL (0.0-0.1); BASOPHILS % (AUTO) 2 % (0-10); EOSINOPHILS % (AUTO) 0 % (0-10); LYMPHOCYTES # (AUTO) 2.1 X 10^3 (1.0-4.0); MONOCYTES # (AUTO) 0.1 X 10^3 (0.0-1.0); NEUTROPHILS # (AUTO) 1.5 X 10^3 (1.8-7.8)
[2018-10-16 23:55] LABS: ALBUMIN 3.8 GM/DL (3.2-4.5); BILIRUBIN,TOTAL 0.2 MG/DL (0.1-1.0); CALCIUM 8.8 MG/DL (8.5-10.1); CREATININE SERUM 1.15 MG/DL (0.60-1.30); POTASSIUM 3.7 MMOL/L (3.6-5.0); TOTAL PROTEIN 6.7 GM/DL (6.4-8.2)
[2018-10-17 00:19] VITALS: BP 117/56
--- NOTE | 2018-10-17 07:53 | Diagnostic Imaging Report ---
INDICATION: Chest pain. COMPARISON: 10/13/2018. FINDINGS: Stable left subclavian Port-A-Cath. Hazy opacities in lung bases more advanced on the right. Stable heart size. No pleural effusion. Posterior lower lobes are poorly evaluated by portable radiography. IMPRESSION: Right basilar hazy opacities are present and could be on the basis of atelectasis and summation shadow of the breast. However, infectious process could also give this appearance in the appropriate setting. Dictated by: Dictated on workstation # [id number]
== END 2018-10-17 00:25 | disposition home or self-care (01) ==
LOC: EDUNIT# 22:52 → ER FS 22:53
DX: S80.812A Abrasion, left lower leg, initial encounter (principal); J44.1 Chronic obstructive pulmonary disease with (acute) exacerbation; R07.81 Pleurodynia; I95.9 Hypotension, unspecified; D63.8 Anemia in other chronic diseases classified elsewhere; I10 Essential (primary) hypertension; E11.9 Type 2 diabetes mellitus without complications; Z85.528 Personal history of other malignant neoplasm of kidney; Z92.21 Personal history of antineoplastic chemotherapy; Z90.5 Acquired absence of kidney; Z90.710 Acquired absence of both cervix and uterus; Z87.448 Personal history of other diseases of urinary system; Z87.442 Personal history of urinary calculi; X58.XXXA Exposure to other specified factors, initial encounter
CPT/HCPCS: 36415; 71045; 80053; 85025; 93041; 96374

== ENCOUNTER 2018-10-30 20:29 | Emergency (ER) | payer MEDICARE, MEDICAID ==
[~2018-10-30] VITALS: Ht 170.2 cm; Wt 108.9 kg
--- OUTSIDE RECORDS SUMMARY | 2018-10-30 20:42 | XMS REPORT | Continuity of Care Document ---
Author Organization Unknown Address Unknown Allergies There is no data. Medications There is no data. Problems Date Dx Coded Attending Type Code Diagnosis Diagnosed By 07/05/2010 BRANDEEHEATHER JONES APRN 278.01 OBESITY MORBID 07/05/[address] [facility] KYLE, HEATHER 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, Unspecified 07/05/2010 BRANDEE KYLE, HEATHER V15.82 TOBACCOISM 07/05/[address] [facility] KYLE, HEATHER 278.01 OBESITY MORBID 07/05/[address] [facility] AUTO HAULAWAY DRIVER, HEATHER 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, Unspecified 07/05/[address] [facility] KYLE, HEATHER V15.82 TOBACCOISM 07/05/[address] KYLE, HEATHER 278.01 OBESITY MORBID 07/05/[address] [facility] AUT[employer]AY DRIVER, HEATHER 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, Unspecified 07/05/[address] [facility] AUTO [employer]AY DRIVER, HEATHER V15.82 TOBACCOISM 07/05/[address] [facility] AUTO [employer]AY DRIVER, HEATHER 278.01 OBESITY MORBID 07/05/[address] [facility] AUT[employer] DRIVER, HEATHER 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, Unspecified 07/05/[address] [facility] AUT[employer] DRIVER, HEATHER V15.82 TOBACCOISM 07/05/[address] [facility] AUTO [employer] DRIVER, HEATHER 278.01 OBESITY MORBID 07/05/[address] [facility] AUTO [employer] DRIVER, HEATHER 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, Unspecified 07/05/[address] [facility] AUT[employer] DRIVER, HEATHER V15.82 TOBACCOISM 07/05/[address] [facility] AUTO [employer] DRIVER, HEATHER 278.01 OBESITY MORBID 07/05/[address] [facility] AUTO [employer] DRIVER, HEATHER 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, Unspecified 07/05/[address] [facility] AUTO [employer] DRIVER, HEATHER V15.82 TOBACCOISM 07/05/[address] [facility] AUTO [employer] DRIVER, HEATHER 278.01 OBESITY MORBID 07/05/[address] [facility] AUT[employer] DRIVER, HEATHER 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, Unspecified 07/05/2010 BR[facility] [employer] DRIVER, HEATHER V15.82 TOBACCOISM 07/05/2010 [facility] [employer] DRIVER, MARIANNA 278.01 OBESITY MORBID 07/05/2010 [facility] [employer] DRIVER, MARIANNA 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, Unspecified 07/05/2010 [facility] [employer] DRIVER, MARIANNA V15.82 TOBACCOISM 07/05/2010 [facility] [employer] DRIVER, MARIANNA 278.01 OBESITY MORBID 07/05/2010 [facility] [employer] DRIVER, MARIANNA 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, Unspecified 07/05/2010 [facility] [employer] DRIVER, MARIANNA V15.82 TOBACCOISM 07/07/[address] [facility] AUT[employer] DRIVER, HEATHER 280.9 Anemia Hypochromic / Microcytic 07/07/[address] [facility] AUT[employer] DRIVER, HEATHER 796.2 Prehypertension 07/07/[address] [facility] AUT[employer] DRIVER, HEATHER V04.81 Influenza Vaccine 07/07/[address] [facility] AUT[employer] DRIVER, HEATHER V68.89 Encounters For Other Specified Administrative Purpose 07/07/2010 BRAN[facility] [employer] DRIVER, HEATHER V72.31 Routine Pelvic Exam 07/07/[address] [facility] AUT[employer] DRIVER, HEATHER 280.9 Anemia Hypochromic / Microcytic 07/07/2010 BR[facility] [employer] DRIVER, HEATHER 796.2 Prehypertension 07/07/2010 BR[facility] [employer] DRIVER, HEATHER V04.81 Influenza Vaccine 07/07/2010 BRAN[facility] [employer] DRIVER, HEATHER V68.89 Encounters For Other Specified Administrative Purpose 07/07/2010 BRAN[facility]E [employer] DRIVER, HEATHER V72.31 Routine Pelvic Exam 07/07/[address] [facility] AUTO [employer] DRIVER, HEATHER 280.9 Anemia Hypochromic / Microcytic 07/07/2010 BRAN[facility] [employer] DRIVER, HEATHER 796.2 Prehypertension 07/07/[address] [facility] AUT[employer] DRIVER, HEATHER V04.81 Influenza Vaccine 07/07/[address] [facility] AUTO [employer] DRIVER, HEATHER V68.89 Encounters For Other Specified Administrative Purpose 07/07/2010 BR[facility] [employer] DRIVER, HEATHER V72.31 Routine Pelvic Exam 07/07/[address] [facility] AUTO [employer] DRIVER, HEATHER 280.9 Anemia Hypochromic / Microcytic 07/07/[address] [facility] AUTO [employer] DRIVER, HEATHER 796.2 Prehypertension 07/07/[address] [facility] AUTO [employer] DRIVER, HEATHER V04.81 Influenza Vaccine 07/07/2010 BRAN[facility] [employer] DRIVER, HEATHER V68.89 Encounters For Other Specified Administrative Purpose 07/07/2010 BRAN[facility] [employer] DRIVER, HEATHER V72.31 Routine Pelvic Exam 07/07/2010 BRAN[facility] [employer] DRIVER, HEATHER 280.9 Anemia Hypochromic / Microcytic 07/07/[address] [facility] AUT[employer] DRIVER, HEATHER 796.2 Prehypertension 07/07/2010 BRAN[facility] [employer] DRIVER, HEATHER V04.81 Influenza Vaccine 07/07/2010 BRAN[facility] [employer] DRIVER, HEATHER V68.89 Encounters For Other Specified Administrative Purpose 07/07/2010 BRAN[facility] [employer] DRIVER, HEATHER V72.31 Routine Pelvic Exam 07/07/2010 BRAN[facility]E [employer] DRIVER, HEATHER 280.9 Anemia Hypochromic / Microcytic 07/07/[address] [facility] AUTO [employer] DRIVER, HEATHER 796.2 Prehypertension 07/07/[address] [facility] AUT[employer] DRIVER, HEATHER V04.81 Influenza Vaccine 07/07/2010 BRAN[facility]E [employer] DRIVER, HEATHER V68.89 Encounters For Other Specified Administrative Purpose 07/07/2010 BRAN[facility]E [employer] DRIVER, HEATHER V72.31 Routine Pelvic Exam 07/07/[address] [facility] AUT[employer] DRIVER, HEATHER 280.9 Anemia Hypochromic / Microcytic 07/07/2010 BR[facility] [employer] DRIVER, HEATHER 796.2 Prehypertension 07/07/2010 BRAN[facility] [employer] DRIVER, HEATHER V04.81 Influenza Vaccine 07/07/[address] [facility] AUT[employer] DRIVER, HEATHER V68.89 Encounters For Other Specified Administrative Purpose 07/07/2010 BRAN[facility]E [employer] DRIVER, HEATHER V72.31 Routine Pelvic Exam 07/07/2010 [facility] [employer] DRIVER, MARIANNA 280.9 Anemia Hypochromic / Microcytic 07/07/2010 [facility] [employer] DRIVER, MARIANNA 796.2 Prehypertension 07/07/2010 [facility] [employer] DRIVER, MARIANNA V04.81 Influenza Vaccine 07/07/2010 [facility] [employer] DRIVER, MARIANNA V68.89 Encounters For Other Specified Administrative Purpose 07/07/2010 [facility] [employer] DRIVER, MARIANNA V72.31 Routine Pelvic Exam 07/07/2010 [facility] [employer] DRIVER MARIANNA 280.9 Anemia Hypochromic / Microcytic 07/07/2010 G[facility] AUTO HAULAWAY DRIVEREN SunshineE 796.2 Prehypertension 07/07/2010 MARIANNA FAUST APRN V04.81 Influenza Vaccine 07/07/2010 MARIANNA FAUST APRN V68.89 Encounters For Other Specified Administrative Purpose 07/07/2010 MARIANNA FAUST APRN V72.31 Routine Pelvic Exam 10/20/2010 BRAN[facility]E [employer] DRIVER, HEATHER 112.1 Candidiasis, Of Vulva And Vagina 10/20/2010 BRAN[facility]E [employer] DRIVER, HEATHER 599.0 Uti 10/20/2010 BRAN[facility]E [employer] DRIVER, HEATHER 112.1 Candidiasis, Of Vulva And Vagina 10/20/2010 BRAN[facility] [employer] DRIVER, HEATHER 599.0 Uti 10/20/2010 BRAN[facility]E AUT[employer] DRIVER, HEATHER 112.1 Candidiasis, Of Vulva And Vagina 10/20/2010 BRAN[facility]E AUT[employer] DRIVER, HEATHER 599.0 Uti 10/20/2010 BRAN[facility]E AUT[employer] DRIVER, HEATHER 112.1 Candidiasis, Of Vulva And Vagina 10/20/2010 BRANDEE AUT[employer] DRIVER, HEATHER 599.0 Uti 10/20/2010 BRAN[facility]E AUT[employer] DRIVER, HEATHER 112.1 Candidiasis, Of Vulva And Vagina 10/20/2010 BRANDEE AUT[employer] DRIVER, HEATHER 599.0 Uti 10/20/2010 BRANDEE AUT[employer] DRIVER, HEATHER 112.1 Candidiasis, Of Vulva And Vagina 10/20/2010 BRAN[facility]E AUT[employer] DRIVER, HEATHER 599.0 Uti 10/20/2010 BRAN[facility]E AUT[employer] DRIVER, HEATHER 112.1 Candidiasis, Of Vulva And Vagina 10/20/2010 BRANDEE AUT[employer] DRIVER, HEATHER 599.0 Uti 10/20/2010 G[facility] AUT[employer] DRIVER, MARIANNA 112.1 Candidiasis, Of Vulva And Vagina 10/20/2010 G[facility] AUT[employer] DRIVER, MARIANNA 599.0 Uti 10/20/2010 [facility] AUT[employer] DRIVER, MARIANNA 112.1 Candidiasis, Of Vulva And Vagina 10/20/2010 [facility] AUT[employer] DRIVER, MARIANNA 599.0 Uti 10/24/2010 BRAN[facility]E AUT[employer] DRIVER, HEATHER 250.00 DIABETES MELLITUS TYPE 2 10/24/2010 BRAN[facility] [employer] DRIVER, HEATHER 466.0 Bronchitis, Acute 10/24/2010 BRAN[facility] [employer] DRIVER, HEATHER 496 PULMONARY OBSTRUCTIVE DISORDERS 10/24/2010 BRAN[facility] AUT[employer] DRIVER, HEATHER 250.00 DIABETES MELLITUS TYPE 2 10/24/2010 BRAN[facility] [employer] DRIVER, HEATHER 466.0 Bronchitis, Acute 10/24/2010 BRAN[facility] [employer] DRIVER, HEATHER 496 PULMONARY OBSTRUCTIVE DISORDERS 10/24/2010 BRAN[facility] AUT[employer] DRIVER, HEATHER 250.00 DIABETES MELLITUS TYPE 2 10/24/2010 BRAN[facility] [employer] DRIVER, HEATHER 466.0 Bronchitis, Acute 10/24/2010 BRAN[facility] AUT[employer] DRIVER, HEATHER 496 PULMONARY OBSTRUCTIVE DISORDERS 10/24/2010 BRAN[facility] [employer] DRIVER, HEATHER 250.00 DIABETES MELLITUS TYPE 2 10/24/2010 BRAN[facility]E [employer] DRIVER, HEATHER 466.0 Bronchitis, Acute 10/24/[address] [facility] AUTO HAUL[employer]AY DRIVER, HEATHER 496 PULMONARY OBSTRUCTIVE DISORDERS 10/24/2010 BRANDEE AUT[employer] DRIVER, HEATHER 250.00 DIABETES MELLITUS TYPE 2 10/24/[address] [facility] AUTO [employer] DRIVER, HEATHER 466.0 Bronchitis, Acute 10/24/[address] [facility] AUTO [employer] DRIVER, HEATHER 496 PULMONARY OBSTRUCTIVE DISORDERS 10/24/[address] [facility] AUTO [employer] DRIVER, HEATHER 250.00 DIABETES MELLITUS TYPE 2 10/24/2010 BRANDEE [employer] DRIVER, HEATHER 466.0 Bronchitis, Acute 10/24/[address] [facility] AUTO [employer] DRIVER, HEATHER 496 PULMONARY OBSTRUCTIVE DISORDERS 10/24/2010 BRANDEE AUT[employer] DRIVER, HEATHER 250.00 DIABETES MELLITUS TYPE 2 10/24/2010 BRANDEE [employer] DRIVER, HEATHER 466.0 Bronchitis, Acute 10/24/[address] [facility] AUTO [employer] DRIVER, HEATHER 496 PULMONARY OBSTRUCTIVE DISORDERS 10/24/2010 [facility] [employer] DRIVER, MARIANNA 250.00 DIABETES MELLITUS TYPE 2 10/24/2010 [facility] [employer] DRIVER, MARIANNA 466.0 Bronchitis, Acute 10/24/2010 G[facility] [employer] DRIVER, MARIANNA 496 PULMONARY OBSTRUCTIVE DISORDERS 10/24/2010 [facility] [employer] DRIVER, MARIANNA 250.00 DIABETES MELLITUS TYPE 2 10/24/2010 G[facility] [employer] DRIVER, MARIANNA 466.0 Bronchitis, Acute 10/24/2010 [facility] [employer] DRIVER, MARIANNA 496 PULMONARY OBSTRUCTIVE DISORDERS 05/12/2011 BRAN[facility] [employer] DRIVER, HEATHER 703.0 Ingrowing Nail 05/12/[address] [facility] AUTO HAULAWAY DRIVER, HEATHER 726.91 EXOSTOSIS OF UNSPECIFIED SITE 05/12/2011 BRAN[facility] [employer] DRIVER, HEATHER 703.0 Ingrowing Nail 05/12/2011 BRAN[facility] [employer] DRIVER, HEATHER 726.91 EXOSTOSIS OF UNSPECIFIED SITE 05/12/2011 BRAN[facility] [employer] DRIVER, HEATHER 703.0 Ingrowing Nail 05/12/2011 BRAN[facility] [employer] DRIVER, HEATHER 726.91 EXOSTOSIS OF UNSPECIFIED SITE 05/12/2011 BRAN[facility] [employer] DRIVER, HEATHER 703.0 Ingrowing Nail 05/12/2011 BRAN[facility] [employer] DRIVER, HEATHER 726.91 EXOSTOSIS OF UNSPECIFIED SITE 05/12/2011 BRAN[facility] [employer] DRIVER, HEATHER 703.0 Ingrowing Nail 05/12/2011 BRAN[facility] [employer] DRIVER, HEATHER 726.91 EXOSTOSIS OF UNSPECIFIED SITE 05/12/2011 BR[facility] [employer] DRIVER, HEATHER 703.0 Ingrowing Nail 05/12/2011 BRAN[facility] [employer] DRIVER, HEATHER 726.91 EXOSTOSIS OF UNSPECIFIED SITE 05/12/[address] [facility] AUTO [employer]AY DRIVER, HEATHER 703.0 Ingrowing Nail 05/12/[address] [facility] AUT[employer] DRIVER, HEATHER 726.91 EXOSTOSIS OF UNSPECIFIED SITE 05/12/2011 [facility] [employer] DRIVER, MARIANNA 703.0 Ingrowing Nail 05/12/2011 [facility] [employer] DRIVER, MARIANNA 726.91 EXOSTOSIS OF UNSPECIFIED SITE 05/12/2011 [facility] [employer] DRIVER, MARIANNA 703.0 Ingrowing Nail 05/12/2011 [facility] [employer] DRIVER, MARIANNA 726.91 EXOSTOSIS OF UNSPECIFIED SITE 06/02/[address] [facility] AUT[employer] DRIVER, HEATHER 078.12 Plantar Wart 06/02/2011 BR[facility] [employer] DRIVER, HEATHER 078.12 Plantar Wart 06/02/2011 [facility] [employer] DRIVER, HEATHER 078.12 Plantar Wart 06/02/2011 [facility] [employer] DRIVER, HEATHER 078.12 Plantar Wart 06/02/2011 [facility] [employer] DRIVER, HEATHER 078.12 Plantar Wart 06/02/2011 BR[facility] [employer] DRIVER, HEATHER 078.12 Plantar Wart 06/02/2011 [facility] [employer] DRIVER, HEATHER 078.12 Plantar Wart 06/02/2011 [facility] [employer] DRIVER, MARIANNA 078.12 Plantar Wart 06/02/2011 [facility] [employer] DRIVER, MARIANNA 078.12 Plantar Wart 07/05/2011 [facility] [employer] DRIVER, HEATHER 466.0 ACUTE BRONCHITIS 07/05/2011 [facility] [employer] DRIVER, HEATHER 466.0 ACUTE BRONCHITIS 07/05/2011 [facility] [employer] DRIVER, HEATHER 466.0 ACUTE BRONCHITIS 07/05/2011 [facility] [employer] DRIVER, HEATHER 466.0 ACUTE BRONCHITIS 07/05/2011 [facility] [employer] DRIVER, HEATHER 466.0 ACUTE BRONCHITIS 07/05/2011 BR[facility] [employer] DRIVER, HEATHER 466.0 ACUTE BRONCHITIS 07/05/2011 BR[facility] [employer] DRIVER, HEATHER 466.0 ACUTE BRONCHITIS 07/05/2011 [facility] [employer] DRIVER, MARIANNA 466.0 ACUTE BRONCHITIS 07/05/2011 [facility] AUT[employer] DRIVER, MARIANNA 466.0 ACUTE BRONCHITIS 11/20/2011 [facility] [employer] DRIVER, HEATHER 682.9 CELLULITIS 11/20/2011 [facility] [employer] DRIVER, HEATHER 682.9 CELLULITIS 11/20/2011 [facility] [employer] DRIVER, HEATHER 682.9 CELLULITIS 11/20/2011 [facility] [employer] DRIVER, HEATHER 682.9 CELLULITIS 11/20/2011 [facility] [employer] DRIVER, HEATHER 682.9 CELLULITIS 11/20/2011 BR[facility] [employer] DRIVER, HEATHER 682.9 CELLULITIS 11/20/2011 [facility] [employer] DRIVER, HEATHER 682.9 CELLULITIS 11/20/2011 [facility] [employer] DRIVER, MARIANNA 682.9 CELLULITIS 11/20/2011 [facility] [employer] DRIVER, MARIANNA 682.9 CELLULITIS 12/22/2011 [facility] [employer] DRIVER, HEATHER 401.1 ESSENTIAL HYPERTENSION BENIGN 12/22/2011 [facility] [employer] DRIVER, HEATHER 401.1 ESSENTIAL HYPERTENSION BENIGN 12/22/2011 BR[facility] [employer] DRIVER, HEATHER 401.1 ESSENTIAL HYPERTENSION BENIGN 12/22/2011 BR[facility] AUT[employer] DRIVER, HEATHER 401.1 ESSENTIAL HYPERTENSION BENIGN 12/22/2011 BR[facility] [employer] DRIVER, HEATHER 401.1 ESSENTIAL HYPERTENSION BENIGN 12/22/2011 [facility] [employer] DRIVER, HEATHER 401.1 ESSENTIAL HYPERTENSION BENIGN 12/22/2011 BR[facility] AUT[employer] DRIVER, HEATHER 401.1 ESSENTIAL HYPERTENSION BENIGN 12/22/2011 G[facility] AUTO HAULAWAY DRIVERENE 401.1 ESSENTIAL HYPERTENSION BENIGN 12/22/2011 [facility] [employer] DRIVER, MARIANNA 401.1 ESSENTIAL HYPERTENSION BENIGN 04/09/2012 BRANDEE AUTO HAULAWAY DRIVERALEXEN 272.2 HYPERLIPIDEMIA 04/09/2012 BRAN[facility]E AUTO HAULAWAY DRIVERALEXEN V04.81 Need For Prophylactic Vaccination And Inoculation Against Influenza 04/09/2012 BRANDEE AUTO HAULAWAY DRIVERHEATHER 272.2 HYPERLIPIDEMIA 04/09/2012 BRAN[facility]E [employer] DRIVER, HEATHER V04.81 Need For Prophylactic Vaccination And Inoculation Against Influenza 04/09/2012 BRANDEE AUTO HAULAWAY DRIVERHEATHER Sunshine 272.2 HYPERLIPIDEMIA 04/09/[address] [facility] AUT[employer]AY DRIVER, HEATHER V04.81 Need For Prophylactic Vaccination And Inoculation Against Influenza 04/09/[address] [facility] AUTO HAULAWAY DRIVERHEATHER Sunshine 272.2 HYPERLIPIDEMIA 04/09/[address] [facility] AUTO HAULAWAY DRIVERHEATHER Sunshine V04.81 Need For Prophylactic Vaccination And Inoculation Against Influenza 04/09/[address] [facility] [facility] AUTO HAULAWAY DRIVERHEATHER Sunshine 272.2 HYPERLIPIDEMIA 04/09/2012 BR[facility] [employer] DRIVER, HEATHER V04.81 Need For Prophylactic Vaccination And Inoculation Against Influenza 04/09/2012 BRAN[facility] [employer] DRIVER, HEATHER 272.2 HYPERLIPIDEMIA 04/09/2012 BRAN[facility] [employer] DRIVER, HEATHER V04.81 Need For Prophylactic Vaccination And Inoculation Against Influenza 04/09/2012 BRAN[facility] AUTO HAULAWAY DRIVERHEATHER Sunshine 272.2 HYPERLIPIDEMIA 04/09/[address] [facility] AUTO HAULAWAY DRIVERHEATHER Sunshine V04.81 Need For Prophylactic Vaccination And Inoculation Against Influenza 04/09/2012 GOVIND MARIANNA WRIGHT 272.2 HYPERLIPIDEMIA 04/09/2012 GOVIND MARIANNA WRIGHT V04.81 Need For Prophylactic Vaccination And Inoculation Against Influenza 04/09/2012 [facility] AUT[employer]ULAWAY DRIVERMARIANNA Sunshine 272.2 HYPERLIPIDEMIA 04/09/2012 GOVIND MARIANNA WRIGHT V04.81 Need For Prophylactic Vaccination And Inoculation Against Influenza 05/14/2012 BRANDEE HEATHER WRIGHT 682.9 Cellulitis/abscess 05/14/2012 BRANDEE HEATHER WRIGHT 682.9 Cellulitis/abscess 05/14/2012 [facility] [employer] DRIVER, HEATHER 682.9 Cellulitis/abscess 05/14/2012 [facility] [employer] DRIVER, HEATHER 682.9 Cellulitis/abscess 05/14/2012 [facility] [employer] DRIVER, HEATHER 682.9 Cellulitis/abscess 05/14/2012 [facility] [employer] DRIVER, HEATHER 682.9 Cellulitis/abscess 05/14/2012 [facility] [employer] DRIVER, HEATHER 682.9 Cellulitis/abscess 05/14/2012 [facility] [employer] DRIVER, MARIANNA 682.9 Cellulitis/abscess 05/14/2012 [facility] [employer] DRIVER, MARIANNA 682.9 Cellulitis/abscess 06/24/2012 [facility] [employer] DRIVER, HEATHER 112.1 Candidiasis, Of Vulva And Vagina 06/24/2012 [facility] [employer] DRIVER, HEATHER 112.1 Candidiasis, Of Vulva And Vagina 06/24/2012 [facility] [employer] DRIVER, HEATHER 112.1 Candidiasis, Of Vulva And Vagina 06/24/2012 BR[facility] [employer] DRIVER, HEATHER 112.1 Candidiasis, Of Vulva And Vagina 06/24/2012 [facility] [employer] DRIVER, HEATHER 112.1 Candidiasis, Of Vulva And Vagina 06/24/2012 BR[facility] [employer] DRIVER, HEATHER 112.1 Candidiasis, Of Vulva And Vagina 06/24/2012 BR[facility] [employer] DRIVER, HEATHER 112.1 Candidiasis, Of Vulva And Vagina 06/24/2012 [facility] AUT[employer] DRIVER, MARIANNA 112.1 Candidiasis, Of Vulva And Vagina 06/24/2012 [facility] [employer] DRIVER, MARIANNA 112.1 Candidiasis, Of Vulva And Vagina 06/28/2012 [facility] [employer] DRIVER, HEATHER 110.1 Onychomycosis 06/28/2012 [facility] [employer] DRIVER, HEATHER 703.8 Other Specified Diseases Of Nail 06/28/2012 [facility] [employer] DRIVER, HEATHER 110.1 Onychomycosis 06/28/2012 [facility] [employer] DRIVER, HEATHER 703.8 Other Specified Diseases Of Nail 06/28/2012 [facility] [employer] DRIVER, HEATHER 110.1 Onychomycosis 06/28/2012 [facility] [employer] DRIVER, HEATHER 703.8 Other Specified Diseases Of Nail 06/28/2012 [facility] [employer] DRIVER, HEATHER 110.1 Onychomycosis 06/28/2012 [facility] [employer] DRIVER, HEATHER 703.8 Other Specified Diseases Of Nail 06/28/2012 [facility] [employer] DRIVER, HEATHER 110.1 Onychomycosis 06/28/2012 [facility] [employer] DRIVER, HEATHER 703.8 Other Specified Diseases Of Nail 06/28/2012 [facility] [employer] DRIVER, HEATHER 110.1 Onychomycosis 06/28/2012 [facility] [employer] DRIVER, HEATHER 703.8 Other Specified Diseases Of Nail 06/28/2012 [facility] [employer] DRIVER, HEATHER 110.1 Onychomycosis 06/28/2012 BR[facility] [employer] DRIVER, HEATHER 703.8 Other Specified Diseases Of Nail 06/28/2012 [facility] [employer] DRIVER, MARIANNA 110.1 Onychomycosis 06/28/2012 [facility] [employer] DRIVER, MARIANNA 703.8 Other Specified Diseases Of Nail 06/28/2012 [facility] [employer] DRIVER, MARIANNA 110.1 Onychomycosis 06/28/2012 [facility] [employer] DRIVER, MARIANNA 703.8 Other Specified Diseases Of Nail 08/21/2012 [facility] [employer] DRIVER, HEATHER 682.9 Cellulitis/abscess 08/21/2012 [facility] [employer] DRIVER, HEATHER V72.31 Gynecological Exam 08/21/2012 [facility] [employer] DRIVER, HEATHER 682.9 Cellulitis/abscess 08/21/2012 [facility] [employer] DRIVER, HEATHER V72.31 Gynecological Exam 08/21/2012 [facility] [employer] DRIVER, HEATHER 682.9 Cellulitis/abscess 08/21/2012 [facility] [employer] DRIVER, HEATHER V72.31 Gynecological Exam 08/21/2012 [facility] [employer] DRIVER, HEATHER 682.9 Cellulitis/abscess 08/21/2012 [facility] [employer] DRIVER, HEATHER V72.31 Gynecological Exam 08/21/2012 [facility] [employer] DRIVER, HEATHER 682.9 Cellulitis/abscess 08/21/2012 [facility] [employer] DRIVER, HEATHER V72.31 Gynecological Exam 08/21/2012 [facility] [employer] DRIVER, HEATHER 682.9 Cellulitis/abscess 08/21/2012 [facility] [employer] DRIVER, HEATHER V72.31 Gynecological Exam 08/21/2012 [employer] DRIVER, HEATHER 682.9 Cellulitis/abscess 08/21/2012 [employer] DRIVER, HEATHER V72.31 Gynecological Exam 08/21/2012 GOV[employer] DRIVER, MARIANNA 682.9 Cellulitis/abscess 08/21/2012 [employer] DRIVER, MARIANNA V72.31 Gynecological Exam 08/21/2012 [employer] DRIVER, MARIANNA 682.9 Cellulitis/abscess 08/21/2012 [employer] DRIVER, MARIANNA V72.31 Gynecological Exam 10/08/2012 [employer] DRIVER, HEATHER 466.0 Bronchitis, Acute 10/08/2012 [employer] DRIVER, HEATHER 466.0 Bronchitis, Acute 10/08/2012 [employer] DRIVER, HEATHER 466.0 Bronchitis, Acute 10/08/2012 [employer] DRIVER, HEATHER 466.0 Bronchitis, Acute 10/08/2012 [employer] DRIVER, HEATHER 466.0 Bronchitis, Acute 10/08/2012 [employer] DRIVER, HEATHER 466.0 Bronchitis, Acute 10/08/2012 [employer] DRIVER, HEATHER 466.0 Bronchitis, Acute 10/08/2012 G[employer] DRIVER, MARIANNA 466.0 Bronchitis, Acute 10/08/2012 [employer] DRIVER, MARIANNA 466.0 Bronchitis, Acute 12/05/2012 [employer] DRIVER, HEATHER 599.0 Uti 12/05/2012 [employer] DRIVER, HEATHER 599.0 Uti 12/05/2012 [employer] DRIVER, HEATHER 599.0 Uti 12/05/2012 [employer] DRIVER, HEATHER 599.0 Uti 12/05/2012 [employer] DRIVER, HEATHER 599.0 Uti 12/05/2012 [employer] DRIVER, HEATHER 599.0 Uti 12/05/2012 [employer] DRIVER, HEATHER 599.0 Uti 12/05/2012 GOV[employer] DRIVER, MARIANNA 599.0 Uti 12/05/2012 [employer] DRIVER, MARIANNA 599.0 Uti 05/21/2013 [employer] DRIVER, HEATHER 285.9 ANEMIA, UNSPECIFIED 05/21/2013 [employer] DRIVER, HEATHER 285.9 ANEMIA, UNSPECIFIED 05/21/2013 [employer] DRIVER, HEATHER 285.9 ANEMIA, UNSPECIFIED 05/21/2013 [employer] DRIVER, HEATHER 285.9 ANEMIA, UNSPECIFIED 05/21/2013 [employer] DRIVER, HEATHER 285.9 ANEMIA, UNSPECIFIED 05/21/2013 [employer] DRIVER, HEATHER 285.9 ANEMIA, UNSPECIFIED 05/21/2013 [employer] DRIVER, HEATHER 285.9 ANEMIA, UNSPECIFIED 05/21/2013 G[employer] DRIVER MARIANNA 285.9 ANEMIA, UNSPECIFIED 08/07/2013 [employer] DRIVER, HEATHER 682.5 CELLULITIS AND ABSCESS OF BUTTOCK 08/07/2013 [employer] DRIVER, HEATHER 682.5 CELLULITIS AND ABSCESS OF BUTTOCK 08/07/2013 [employer] DRIVER, HEATHER 682.5 CELLULITIS AND ABSCESS OF BUTTOCK 08/07/2013 [employer] DRIVER, HEATHER 682.5 CELLULITIS AND ABSCESS OF BUTTOCK 08/07/2013 [employer] DRIVER, HEATHER 682.5 CELLULITIS AND ABSCESS OF BUTTOCK 08/07/2013 [employer] DRIVER, HEATHER 682.5 CELLULITIS AND ABSCESS OF BUTTOCK 08/07/2013 [employer] DRIVER, HEATHER 682.5 CELLULITIS AND ABSCESS OF BUTTOCK 12/12/2013 [employer] DRIVER, HEATHER 250.02 DIABETES MELLITUS WITHOUT MENTION OF COMPLICATION TYPE II OR UNSPECIFIED TYPE UNCONTROLLED 12/12/2013 [employer] DRIVER, HEATHER 250.02 DIABETES MELLITUS WITHOUT MENTION OF COMPLICATION TYPE II OR UNSPECIFIED TYPE UNCONTROLLED 12/12/2013 [employer] DRIVER, HEATHER 250.02 DIABETES MELLITUS WITHOUT MENTION OF COMPLICATION TYPE II OR UNSPECIFIED TYPE UNCONTROLLED 12/12/2013 [employer] DRIVER, HEATHER 250.02 DIABETES MELLITUS WITHOUT MENTION OF COMPLICATION TYPE II OR UNSPECIFIED TYPE UNCONTROLLED 04/25/2018 Halle Sahni MD N13.1 Hydronephrosis with ureteral stricture, not elsewhere classified 04/25/2018 Halle Sahni MD N13.30 Hydronephrosis, right 04/25/2018 Halle Sahni MD R31.2 Other microscopic hematuria 04/25/2018 Halle Sahni MD R31.9 Hematuria 05/29/2018 Halle Sahni MD 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, right ureter 06/28/2018 Halle Sahni MD K43.9 Hernia, Ventral 06/28/2018 Halle Sahni MD Z68.36 BMI 36-36.9 07/03/2018 Halle Sahni MD E66.01 Morbid obesity due to excess calories 07/03/2018 Halle Sahni MD Z68.38 BMI 38-38.9 07/10/2018 Halle Sahni MD E66.01 Morbid obesity due to excess calories 07/10/2018 Halle Sahni MD Z68.35 BMI 35-35.9 07/11/2018 Halle Sahni MD E66.01 Morbid obesity due to excess calories 07/24/2018 Halle Sahni MD E66.01 Morbid obesity due to excess calories 07/26/2018 Halle Sahni MD E66.01 Morbid obesity due to excess calories 07/26/2018 Halle Sahni MD T88.8xxA Other specified complications of surgical and medical care, not elsewhere classified, initial encounter 09/04/2018 Halle Sahni MD E66.01 Morbid obesity due to excess calories 09/04/2018 Halle Sahni MD Z68.36 BMI 36-36.9 09/05/2018 Halle Sahni MD E66.01 Morbid obesity due to excess calories 10/30/2018 Halle Sahni MD L08.9 Wound infection 10/30/2018 Halle Sahni MD C67.9 Bladder cancer Procedures Code [place] [address] GLUCOSE 05/08/2013 84498 HEMOGLOBIN A1C 05/08/2013 G0008 ADMIN FEE (MEDICARE) INFLUENZA 05/14/2013 73218 CBC - CBC WITH DIFF - LC 05/15/2013 91173 COMP - COMPREHENSIVE PANEL - LC 05/15/2013 81532 LIPID - LIPID PANEL - LC 05/15/2013 84523 TSH - TSH - LC 05/15/2013 41306 MALB - MICROALBUMIN - LC 05/15/2013 66499 GLUCOSE 08/11/2013 22183 HEMOGLOBIN A1C 08/11/2013 08835 CBC WITH DIFF 08/12/2013 26241 GLUCOSE 10/07/2013 4000F TOBACCO USE TXMNT COUNSELING 10/13/2013 05003 PULSE OXIMETRY 12/12/2013 A4614 PEAK FLOW 12/12/2013 14409 GLUCOSE 12/12/2013 49361 HEMOGLOBIN A1C 12/12/2013 Pulmonary Pulmonary Function Test 01/13/2014 A4614 PEAK FLOW 02/10/2014 54134 PULSE OXIMETRY 02/10/2014 13467 GLUCOSE 02/10/2014 Endocrino Endocrinology 02/13/2014 Pulmonary Pulmonology, Pulmonology 03/13/2014 43168 PULSE OXIMETRY 04/14/2014 A4614 PEAK FLOW 04/14/2014 [...] 3.2 g/dL A/G RATIO 1.3 ratio 1-1.8 LIPID PANEL - 09/25/18 09:00 CHOLESTEROL, TOTAL 154 mg/dL <200 HDL CHOLESTEROL 42 mg/dL >50 TRIGLYCERIDES 259 mg/dL <150 LDL-CHOLESTEROL 78 mg/dL (calc) NRG CHOL/HDLC RATIO 3.7 (calc) <5.0 NON HDL CHOLESTEROL 112 mg/dL (calc) <130 CMP - 09/25/18 09:00 GLUCOSE 223 mg/dL 65-99 UREA NITROGEN (BUN) 14 mg/dL 7-25 CREATININE 0.90 mg/dL 0.50-1.05 eGFR NON-AFR. UKRAINIAN 74 mL/min/1.73m2 > OR=60 eGFR 86 mL/min/1.73m2 > OR=60 BUN/CREATININE RATIO NOT APPLICABLE (calc) 6-22 SODIUM 136 mmol/L 135-146 POTASSIUM 4.4 mmol/L 3.5-5.3 CHLORIDE 101 mmol/L 98-110 CARBON DIOXIDE 29 mmol/L 20-32 CALCIUM 9.1 mg/dL 8.6-10.4 PROTEIN, TOTAL 7.0 g/dL 6.1-8.1 ALBUMIN 3.8 g/dL 3.6-5.1 GLOBULIN 3.2 g/dL (calc) 1.9-3.7 ALBUMIN/GLOBULIN RATIO 1.2 (calc) 1.0-2.5 BILIRUBIN, TOTAL 0.3 mg/dL 0.2-1.2 ALKALINE PHOSPHATASE 106 U/L 33-130 AST 12 U/L 10-35 ALT 22 U/L 6-29 MICROALBUMIN/CREATININE RATIO, URINE - 10/07/18 12:54 CREATININE, RANDOM URINE 16 mg/dL 20-275 MICROALBUMIN 0.2 mg/dL See Note: MICROALBUMIN/CREATININE RATIO, RANDOM URINE 13 mcg/mg creat <30 Encounters ACCT No. Visit Date/Time Discharge Status Pt. Type Provider Facility Loc./Unit Complaint [id number] 10/21/2018 09:45:00 10/21/2018 23:59:59 CLS Outpatient PRIYA LIRIANO [facility] [id number] 10/07/2018 13:15:00 Document Registration [id number] 09/25/2018 09:45:00 Document Registration [id number] 04/14/2014 08:59:00 04/14/2014 11:05:00 DIS Outpatient HEATHER IRVIN APRN [id number] 02/10/2014 09:57:00 02/10/2014 23:59:59 CLS Outpatient HEATHER IRVIN APRN [id number] 02/10/2014 09:57:00 02/10/2014 23:59:59 CLS Outpatient HEATHER IRVIN APRN [id number] 12/12/2013 10:38:00 12/12/2013 23:59:59 CLS Outpatient HEATHER IRVIN APRN [id number] 10/07/2013 14:37:00 10/13/2013 20:05:00 DIS Outpatient HEATHER IRVIN APRN [id number] 10/07/2013 14:37:00 10/07/2013 23:59:59 CLS Outpatient HEATHER IRVIN APRN [id number] 08/11/2013 10:11:00 08/11/2013 13:49:00 DIS Outpatient HEATHER IRVIN APRN [id number] 05/08/2013 09:56:00 05/08/2013 23:59:59 CLS Outpatient GOVINDGI WRIGHT MARIANNA [id number] 01/08/2013 08:25:00 01/08/2013 23:59:59 CLS Outpatient GOVIND [employer], MARIANNA [id number] 10/30/2018 15:10:01 ACT Unknown Bora BATEMAN, Halle Licea [id number] 10/15/2014 15:34:45 10/15/2014 23:59:00 DIS Outpatient SONY CAMPO A [facility] FLJOSE ANTONIO [id number] 08/12/2014 12:31:00 08/12/2014 14:34:00 DIS Emergency [facility] FED [id number] 06/21/2014 16:47:00 06/21/2014 17:52:00 DIS Emergency [facility] FED [id number] 09/02/2014 00:00:00 Document Registration
[2018-10-30] MEDS ORDERED: RT-ALBUTEROL/IPRATROPIUM 3 ML (DUONEB) VIAL INH ONE (22:30)
--- NOTE | 2018-10-30 22:58 | ED Respiratory ---
General Chief Complaint: Respiratory Problems Stated Complaint: SOB, HIGH BLOOD SUGAR, ABD SORE Source: patient History of Present Illness Date Seen by Provider: Oct 30, 2018 Time Seen by Provider: 22:33 Initial Comments 53-year-old female presenting with complaints of increased shortness of breath and high blood sugars. She has been on steroids recently due to her breathing as well as cancer treatments. She was seen today by her urologist and cancer doctors. She was also having an area on her abdominal incision that had dehisced and partly open. They've done a swab of this in our waiting on culture results. She was found to have new areas in her bladder and is waiting to have surgery from her urologist. She is waiting for tests to see if she is able to undergo another round of chemotherapy treatments next week with her cancer doctors. She was having elevated blood sugars at home and was not feeling well with her breathing so had her friend drive her here to the emergency department. She did not take any of her insulin or medicines for her sugars before coming in to the emergency department. Allergies and Home Medications Allergies Coded Allergies: No Known Drug Allergies (Unverified , 10/16/18) Patient Home Medication List Home Medication List Reviewed: Yes Review of Systems Review of Systems Constitutional: see HPI; No chills, No fever; malaise EENTM: other (dry mouth) Respiratory: cough; No hemoptysis; short of breath; No stridor; wheezing Cardiovascular: No chest pain, No palpitations Gastrointestinal: No abdominal pain, No nausea, No vomiting Genitourinary: No decreased output Musculoskeletal: muscle pain (generalized) Skin: see HPI Psychiatric/Neurological: Anxiety Past Uoommku-Yaafwf-Eiuutp Hx Past Med/Social Hx: Reviewed Nursing Past Med/Soc Hx Patient Social History Alcohol Use: Denies Use Recreational Drug Use: Yes Drug of Choice: POT Recent Foreign Travel: No Contact w/Someone Who Travel: No Recent Infectious Disease Expo: No Recent Hopitalizations: No Physical Abuse: No Sexual Abuse: No Mistreated: No Fear: No Seasonal Allergies Seasonal Allergies: No Past Medical History Surgeries: Yes Abdominal, Hysterectomy, Nephrectomy, Tonsillectomy, Tubal Ligation Respiratory: Yes Asthma Currently Using CPAP: No Currently Using BIPAP: No Cardiac: No Hypertension Neurological: No RN PRIMARY CARE History: Hysterectomy Kidney Infection, Kidney Stones Gastrointestinal: No Musculoskeletal: No Endocrine: Yes Diabetes, Non-Insulin dep Cancer: Yes Kidney Did You Recieve Any Treatments: Yes What Type of Treatment Did You: Chemotherapy, Surgical Intervention Psychosocial: Yes Sleep Difficulties Integumentary: Yes (Pt. has multiple lesions on her abd and under the folds.) Blood Disorders: No Adverse Reaction/Blood Tranf: No Physical Exam Vital Signs - First Documented 10/30/18 22:04 Temp 97.6 Pulse 110 Resp 18 B/P (MAP) 116/83 (94) Pulse Ox 95 O2 Delivery Room Air Capillary Refill : Less Than 3 Seconds Height: 5'7.00" Weight: 240lbs. oz. 108.192150jy; BMI Method:Stated General Appearance: mild distress, obese HEENT: PERRL/EOMI, other (dry mucous membranes) Neck: supple, normal inspection Respiratory: chest non-tender, no respiratory distress, no accessory muscle use , decreased breath sounds; No rales, No rhonchi, No stridor; wheezing Cardiovascular: normal peripheral pulses, regular rate, rhythm Gastrointestinal: normal bowel sounds, non tender, soft Extremities: normal range of motion, non-tender, normal inspection Neurologic/Psychiatric: alert, oriented x 3 Skin: normal color, warm/dry, other (6 mm area of dehiscence on the surgical incision to her right lower abdomen without purulent drainage) Progress/Results/Core Measures Suspected Sepsis Recent Fever Within 48 Hours: No Infection Criteria Present: None New/Unexplained Altered Menta: No Sepsis Screen: No Definite Risk SIRS Temperature:97.6 Pulse: 110 Respiratory Rate: 18 Blood Pressure 116 /83 Mean: 94 Results/Orders Lab Results Laboratory Tests Test 10/30/18 23:54 Range/Units Glucometer > 600 *H 70-110 MG/DL My Orders Orders - DIANE DELCID MD Albuterol/Ipra Inhalation Soln (Duoneb I (10/30/18 22:30) Svn Small Volume Nebulizer (10/30/18 22:16) Insulin (Regular) Human (Humulin R (Per (10/30/18 23:00) Insulin (Regular) Human (Humulin R (Per (10/31/18 00:00) Medications Given in ED Current Medications Medications Dose Ordered Sig/Yoselyn Route Start Time Stop Time Status Last Admin Dose Admin Albuterol/ Ipratropium 3 ml ONCE ONCE INH 10/30/18 22:30 10/30/18 22:31 DC 10/30/18 23:00 3 ML Insulin Human Regular 15 unit ONCE ONCE SC 10/30/18 23:00 10/30/18 23:01 DC 10/30/18 23:03 15 UNIT Insulin Human Regular 15 unit ONCE ONCE SC 10/31/18 00:00 10/31/18 00:01 DC 10/31/18 00:21 15 UNIT Vital Signs/I&O 10/30/18 10/31/18 22:04 00:33 Temp 97.6 Pulse 110 100 Resp 18 16 B/P (MAP) 116/83 (94) 130/67 (88) Pulse Ox 95 96 O2 Delivery Room Air Room Air Capillary Refill : Less Than 3 Seconds Blood Pressure Mean: 94 Progress Note #1: Progress Note Given a DuoNeb breathing treatment and regular insulin 15 units subcutaneous. Progress Note #2: Progress Note Recheck of her sugar still showed high so another 15 units of insulin was given an since she is not taking any of her regular diabetes medicines she was encouraged to go home and take those. Advised to check back to the clinic for further direction if her sugars continue to run high on the steroids. Departure Impression Primary Impression: COPD with exacerbation Additional Impressions: Steroid-induced hyperglycemia External incisional dehiscence Qualified Codes: T81.31XA - Disruption of external operation (surgical) wound , not elsewhere classified, initial encounter Disposition: 01 HOME, SELF-CARE Condition: Stable Departure-Patient Inst. Decision time for Depature: 00:26 Referrals: NO,LOCAL PHYSICIAN (PCP/Family) Primary Care Physician Patient Instructions: Diabetes and Diet, Wound Dehiscence (DC) Add. Discharge Instructions: Stay well hydrated and take your medicine as prescribed. Make sure to take your Insulin and diabetes medicines when you get home. Keep the wound on your abdomen clean and covered with gauze. Follow up with your doctor about your sugars and the wound culture from the opening on your incision. If you have worsening symptoms or more problems return or check back with the clinic All discharge instructions reviewed with patient and/or family. Voiced understanding. DIANE DELCID MD Oct 30, 2018 22:58
[2018-10-30] MEDS ORDERED: inSUlin (REGULAR) HUMAN 1 UNIT/0.01 ML (CHARGE PER UNIT) SC ONE (23:00)
[2018-10-31] MEDS ORDERED: inSUlin (REGULAR) HUMAN 1 UNIT/0.01 ML (CHARGE PER UNIT) SC ONE
[2018-10-31 00:33] VITALS: BP 130/67
== END 2018-10-31 00:33 | disposition home or self-care (01) ==
LOC: EDUNIT# 20:29 → ER FS 20:30
DX: T81.31XA Disruption of external operation (surgical) wound, not elsewhere classified, initial encounter (principal); E11.65 Type 2 diabetes mellitus with hyperglycemia; T49.0X5A Adverse effect of local antifungal, anti-infective and anti-inflammatory drugs, initial encounter; J44.1 Chronic obstructive pulmonary disease with (acute) exacerbation; I10 Essential (primary) hypertension; F12.10 Cannabis abuse, uncomplicated; Z90.710 Acquired absence of both cervix and uterus; Z87.448 Personal history of other diseases of urinary system; Z85.528 Personal history of other malignant neoplasm of kidney; Z92.21 Personal history of antineoplastic chemotherapy; Z87.442 Personal history of urinary calculi; Z98.51 Tubal ligation status; Z90.5 Acquired absence of kidney; Z90.89 Acquired absence of other organs
CPT/HCPCS: 82962; 99282

== ENCOUNTER 2018-11-06 17:39 | Emergency (ER) | payer MEDICARE, MEDICAID ==
[~2018-11-06] VITALS: Ht 170.2 cm; Wt 102.5 kg
[2018-11-06] MEDS ORDERED: NS IV 1000 ML 1,000 ML IV STA (18:45)
--- OUTSIDE RECORDS SUMMARY | 2018-11-06 18:52 | XMS REPORT | Clinical Summary ---
Author Author Admin, E Organization [facility] Address Unknown Phone Unavailable Allergies, Adverse Reactions, Alerts Allergy Name Reaction Description Start Date Severity Status Provider No Known Allergies Nay Elder Conditions or Problems Problem Name Problem Code Onset Date Status Entry Date Provider Comment Standard Description Annotate Other microscopic hematuria 599.70 Resolved Hardeep Barker MD Hematuria, unspecified Hydronephrosis, right 591 Resolved Hardeep Barker MD Hydronephrosis Hematuria 599.70 Resolved Hardeep Barker MD Hematuria, unspecified Hydronephrosis with ureteral stricture, not elsewhere classified 591 Resolved Hardeep Barker MD Hydronephrosis Ureteral cancer, 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 BMI 36-36.9 Refinement Halle Sahni MD Body Mass Index 36.0-36.9, adult BMI 38-38.9 Refinement Hardeep Barker MD Body Mass Index 36.0-36.9, adult BMI 35-35.9 Refinement Hardeep Barker MD Body Mass Index 36.0-36.9, adult BMI 36-36.9 Resolved Halle Sahni MD Body Mass Index 36.0-36.9, adult Hernia, Ventral 553.20 Resolved Hardeep Barker MD Unspecified ventral hernia without mention of obstruction or gangrene Morbid obesity due to excess calories 278.00 Resolved Halle Sahni MD Obesity, unspecified Other specified complications of surgical and medical care, not elsewhere classified, initial encounter 998.13 Resolved Hardeep Barker MD Seroma complicating a procedure Wound infection 958.3 Active Halle Sahni MD Posttraumatic wound infection not elsewhere classified Bladder cancer 188.9 Active Halle Sahni MD Malignant neoplasm of bladder, part unspecified Other microscopic hematuria ICD-599.70 Inactive Hardeep Barker MD Hydronephrosis, right ICD-591 Inactive Hardeep Barker MD Hematuria ICD-599.70 Inactive Hardeep Barker MD Hydronephrosis with ureteral stricture, not elsewhere classified ICD-591 2017 Inactive Hardeep Barker MD BMI 36-36.9 Inactive Nay Escamilla Hernia, Ventral 553.20 Inactive Hardeep Barker MD Morbid obesity due to excess calories ICD-278.00 Inactive Nay Escamilla Other specified complications of surgical and medical care, not elsewhere classified, initial encounter ICD-998.13 Inactive Hardeep Barker MD Medication List Medication Instructions Start Date Stop Date Generic Name NDC Status Provider Patient Instruction BACTRIM DS 800-160 MG ORAL TABLET 1 tab BID SULFAMETHOXAZOLE-TRIMETHOPRIM 54314161938 No Longer Active Hardeep Barker MD Active LEVEMIR FLEXTOUCH 100 UNIT/ML SUBCUTANEOUS SOLUTION PEN-INJECTOR 100 units twice daily INSULIN DETEMIR 08605095773 Active Hardeep Barker MD Active NOVOLOG PENFILL 100 UNIT/ML SUBCUTANEOUS SOLUTION CARTRIDGE 50 units twice daily INSULIN ASPART 18877393474 Active Hardeep Barker MD Active GEODON 80 MG ORAL CAPSULE 2 cap at Bedtime ZIPRASIDONE HCL 28740235755 Active Hardeep Barker MD Active MECLIZINE HCL 12.5 MG ORAL TABLET MECLIZINE HCL 82994695330 No Longer Active Hardeep Barker MD Active LEVAQUIN 500 MG ORAL TABLET 1 tab twice daily LEVOFLOXACIN 11806853289 No Longer Active Halle Sahni MD Active DIFLUCAN 150 MG ORAL TABLET FLUCONAZOLE 08386945709 No Longer Active Halle Sahni MD Active LIPITOR 10 MG ORAL TABLET 1 tab by mouth daily ATORVASTATIN CALCIUM 86580396282 Active Halle Sahni MD Active BYSTOLIC 5 MG ORAL TABLET 1 tab by mouth daily NEBIVOLOL HCL 94937057831 Active Halle Sahni MD Active TRADJENTA 5 MG ORAL TABLET 1 tab by mouth daily LINAGLIPTIN 37036569553 Active Halle Sahni MD Active LISINOPRIL 5 MG ORAL TABLET 1 po qd LISINOPRIL 60228116885 Active Halle Sahni MD Active LEXAPRO 10 MG ORAL TABLET 1 tablet by mouth daily ESCITALOPRAM OXALATE 56205746942 Active Halle Sahni MD Active METFORMIN HCL 500 MG ORAL TABLET 1 tablet by mouth three times daily METFORMIN HCL 53302764516 Active Halle Sahni MD Active DIFLUCAN 150 MG ORAL TABLET DIFLUCAN 150 MG ORAL TABLET 188450 FLUCONAZOLE Inactive LEVAQUIN 500 MG ORAL TABLET 1 tab twice daily LEVAQUIN 500 MG ORAL TABLET 201705 LEVOFLOXACIN Inactive MECLIZINE HCL 12.5 MG ORAL TABLET MECLIZINE HCL 12.5 MG ORAL TABLET 754304 MECLIZINE HCL Inactive BACTRIM DS 800-160 MG ORAL TABLET 1 tab BID BACTRIM DS 800-160 MG ORAL TABLET 840763 SULFAMETHOXAZOLE-TRIMETHOPRIM Inactive Advance Directives Directive Description Start Date PERMISSION TO SHARE Immunizations Vaccine Administration Date Value Standard Description influenza immunization (Flu Vax) has been administered Done according to patient influenza virus vaccine, unspecified formulation Vital Signs Date Name Value Unit Range Description blood pressure, diastolic, repeated by physician 72 BP [place] blood pressure, diastolic 72 mm[Hg] BP [place] blood pressure, systolic, repeated by physician 113 BP sys blood pressure, systolic 113 mm[Hg] BP sys height E&M 67 [in_us] Bdy height pulse rate E&M 80 /min Heart rate temperature E&M 97.4 [degF] Body temperature weight E&M 232 [lb_av] Weight Measured blood pressure, diastolic 74 mm[Hg] BP [place] blood pressure, systolic 113 mm[Hg] BP sys height E&M 67 [in_us] Bdy height pulse rate E&M 81 /min Heart rate temperature E&M 96.1 [degF] Body temperature weight E&M 232 [lb_av] Weight Measured blood pressure, diastolic, repeated by physician 62 BP [place] blood pressure, diastolic 62 mm[Hg] BP [place] blood pressure, systolic, repeated by physician 121 BP sys blood pressure, systolic 121 mm[Hg] BP sys height E&M 67 [in_us] Bdy height pulse rate E&M 80 /min Heart rate temperature E&M 96.6 [degF] Body temperature weight E&M 225 [lb_av] Weight Measured blood pressure, diastolic, repeated by physician 38 BP [place] blood pressure, diastolic 38 mm[Hg] BP [place] blood pressure, systolic, repeated by physician 101 BP sys blood pressure, systolic 101 mm[Hg] BP sys height E&M 67 [in_us] Bdy height pulse rate E&M 96 /min Heart rate temperature E&M 98.6 [degF] Body temperature weight E&M 225 [lb_av] Weight Measured blood pressure, diastolic 53 mm[Hg] BP [place] blood pressure, systolic 79 mm[Hg] BP sys height E&M 67 [in_us] Bdy height pulse rate E&M 87 /min Heart rate temperature E&M 97.2 [degF] Body temperature weight E&M 226 [lb_av] Weight Measured blood pressure, diastolic 45 mm[Hg] BP [place] blood pressure, systolic 128 mm[Hg] BP sys height E&M 67 [in_us] Bdy height pulse rate E&M 68 /min Heart rate temperature E&M 97.1 [degF] Body temperature weight E&M 242.50 [lb_av] Weight Measured blood pressure, diastolic 80 mm[Hg] BP [place] blood pressure, systolic 132 mm[Hg] BP sys height E&M 67 [in_us] Bdy height pulse rate E&M 80 /min Heart rate temperature E&M 98.3 [degF] Body temperature weight E&M 230 [lb_av] Weight Measured blood pressure, diastolic, repeated by physician 80 BP [place] blood pressure, diastolic 80 mm[Hg] BP [place] blood pressure, systolic, repeated by physician 130 BP sys blood pressure, systolic 130 mm[Hg] BP sys height E&M 67 [in_us] Bdy height pulse rate E&M 83 /min Heart rate temperature E&M 98.4 [degF] Body temperature weight E&M 226 [lb_av] Weight Measured blood pressure, diastolic 84 mm[Hg] BP [place] blood pressure, systolic 132 mm[Hg] BP sys height E&M 67 [in_us] Bdy height pulse rate E&M 84 /min Heart rate temperature E&M 98.5 [degF] Body temperature weight E&M 226 [lb_av] Weight Measured blood pressure, diastolic 82 mm[Hg] BP [place] blood pressure, systolic 145 mm[Hg] BP sys height E&M 67 [in_us] Bdy height pulse rate E&M 85 /min Heart rate temperature E&M 98.4 [degF] Body temperature weight E&M 227 [lb_av] Weight Measured blood pressure, diastolic, repeated by physician 68 BP [place] blood pressure, diastolic 68 mm[Hg] BP [place] blood pressure, systolic, repeated by physician 106 BP sys blood pressure, systolic 106 mm[Hg] BP sys height E&M 67 [in_us] Bdy height pulse rate E&M 62 /min Heart rate temperature E&M 96.9 [degF] Body temperature weight E&M 227 [lb_av] Weight Measured Diagnostic Results Date Name Value Unit Range Description Office Visit: CN-hematuria - Chemistry RBC, urine, dipstick trace non Hemo Office Visit: CN-hematuria - PMH sexually transmitted disease no risk noted Office Visit: CN-hematuria - Urinalysis appearance, urine clear urine color yellow specific gravity, urine 1.005 pH, urine, semiquantitative 5.0 protein, urine, semiquantitative (dipstick) negative glucose, urine, semiquantitative 5+ ketones, urine, by test strip negative bilirubin, urine negative nitrite, urine, semiquantitative negative urobilinogen, urine, semiquantitative (dipstick) 0.2 leukocyte esterase, urine, by dipstick negative Encounters Code Encounter Date Provider Facility CPT-69014 Level 3 Est. Patient 15:50:26 CDJo Sahni MD [facility] [place] CPT-28434 Level 3 Est. Patient 11:10:51 GAS WORKER Hardeep Barker MD [facility] CPT-53307 Level 4 New Patient 16:02:27 GAS WORKER Hardeep Barker MD [facility] CPT-05854 Level 4 Est. Patient 13:31:38 GAS WORKER Halle Sahni MD [facility] CPT-11033 Level 3 Est. Patient 14:10:08 GAS WORKER Halle Sahni MD [facility] [place] CPT-81136 Level 3 Est. Patient 10:01:09 CDT Halle Sahni MD [facility] CPT-63888 Level 4 New Patient 16:33:13 CDT Halle Sahni MD [facility] Procedures Code Procedure Name Date Entry Date Standard Description CPT-37541 Cystoscopy 15:50:27 CDT CPT-72326 Postop F/U Visit 15:34:52 GAS WORKER CPT-91645 I/D hematoma seroma fld gauri 11:10:51 GAS WORKER CPT-45386 Postop F/U Visit 15:20:53 GAS WORKER CPT-67982 Postop F/U Visit 13:46:08 GAS WORKER
--- OUTSIDE RECORDS SUMMARY | 2018-11-06 18:53 | XMS REPORT | Clinical Summary ---
Author Author Admin, E Organization [facility] Address Unknown Phone Unavailable Allergies, [...] MG ORAL TABLET 1 tab BID SULFAMETHOXAZOLE-TRIMETHOPRIM 56108052956 No Longer Active Hardeep Barker MD Active LEVEMIR FLEXTOUCH 100 UNIT/ML SUBCUTANEOUS SOLUTION PEN-INJECTOR 100 units twice daily INSULIN DETEMIR 30284804389 Active Hardeep Barker MD Active NOVOLOG PENFILL 100 UNIT/ML SUBCUTANEOUS SOLUTION CARTRIDGE 50 units twice daily INSULIN ASPART 04769242584 Active Hardeep Barker MD Active GEODON 80 MG ORAL CAPSULE 2 cap at Bedtime ZIPRASIDONE HCL 36200432757 Active Hardeep Barker MD Active MECLIZINE HCL 12.5 MG ORAL TABLET MECLIZINE HCL 11950082617 No Longer Active Hardeep Barker MD Active LEVAQUIN 500 MG ORAL TABLET 1 tab twice daily LEVOFLOXACIN 77818489958 No Longer Active Halle Sahni MD Active DIFLUCAN 150 MG ORAL TABLET FLUCONAZOLE 21789107803 No Longer Active Halle Sahni MD Active LIPITOR 10 MG ORAL TABLET 1 tab by mouth daily ATORVASTATIN CALCIUM 46611755499 Active Halle Sahni MD Active BYSTOLIC 5 MG ORAL TABLET 1 tab by mouth daily NEBIVOLOL HCL 53973402956 Active Halle Sahni MD Active TRADJENTA 5 MG ORAL TABLET 1 tab by mouth daily LINAGLIPTIN 81149568754 Active Halle Sahni MD Active LISINOPRIL 5 MG ORAL TABLET 1 po qd LISINOPRIL 78936154780 Active Halle Sahni MD Active LEXAPRO 10 MG ORAL TABLET 1 tablet by mouth daily ESCITALOPRAM OXALATE 18612292796 Active Halle Sahni MD Active METFORMIN HCL 500 MG ORAL TABLET 1 tablet by mouth three times daily METFORMIN HCL 62121378031 Active Halle Sahni MD Active DIFLUCAN 150 MG ORAL TABLET DIFLUCAN 150 MG ORAL TABLET 759159 FLUCONAZOLE Inactive LEVAQUIN 500 MG ORAL TABLET 1 tab twice daily LEVAQUIN 500 MG ORAL TABLET 421958 LEVOFLOXACIN Inactive MECLIZINE HCL 12.5 MG ORAL TABLET MECLIZINE HCL 12.5 MG ORAL TABLET 213986 MECLIZINE HCL Inactive BACTRIM DS 800-160 MG ORAL TABLET 1 tab BID BACTRIM DS 800-160 MG ORAL TABLET 723470 SULFAMETHOXAZOLE-TRIMETHOPRIM Inactive Advance Directives Directive Description Start [...] negative Encounters Code Encounter Date Provider Facility CPT-71325 Level 3 Est. Patient 15:50:26 CDJo Sahni MD [facility] [place] CPT-41996 Level 3 Est. Patient 11:10:51 DIRECTOR OF LABOR RELATIONS Hardeep Barker MD [facility] CPT-47814 Level 4 New Patient 16:02:27 DIRECTOR OF LABOR RELATIONS Hardeep Barker MD [facility] CPT-05357 Level 4 Est. Patient 13:31:38 DIRECTOR OF LABOR RELATIONS Halle Sahni MD [facility] CPT-71581 Level 3 Est. Patient 14:10:08 DIRECTOR OF LABOR RELATIONS Halle Sahni MD [facility] [place] CPT-79727 Level 3 Est. Patient 10:01:09 CDT Halle Sahni MD [facility] CPT-06796 Level 4 New Patient 16:33:13 CDT Halle Sahni MD [facility] Procedures Code Procedure Name Date Entry Date Standard Description CPT-07862 Cystoscopy 15:50:27 CDT CPT-82185 Postop F/U Visit 15:34:52 DIRECTOR OF LABOR RELATIONS CPT-98430 I/D hematoma seroma fld gauri 11:10:51 DIRECTOR OF LABOR RELATIONS CPT-00273 Postop F/U Visit 15:20:53 DIRECTOR OF LABOR RELATIONS CPT-10462 Postop F/U Visit 13:46:08 DIRECTOR OF LABOR RELATIONS
--- OUTSIDE RECORDS SUMMARY | 2018-11-06 18:53 | XMS REPORT | Clinical Summary ---
Author Author Admin, E Organization [facility] Address Unknown Phone Unavailable Allergies, Adverse Reactions, [...] MG ORAL TABLET 1 tab BID SULFAMETHOXAZOLE-TRIMETHOPRIM 59877630149 No Longer Active Hardeep Barker MD Active LEVEMIR FLEXTOUCH 100 UNIT/ML SUBCUTANEOUS SOLUTION PEN-INJECTOR 100 units twice daily INSULIN DETEMIR 31908043810 Active Hardeep Barker MD Active NOVOLOG PENFILL 100 UNIT/ML SUBCUTANEOUS SOLUTION CARTRIDGE 50 units twice daily INSULIN ASPART 51394903859 Active Hardeep Barker MD Active GEODON 80 MG ORAL CAPSULE 2 cap at Bedtime ZIPRASIDONE HCL 85969509564 Active Hardeep Barker MD Active MECLIZINE HCL 12.5 MG ORAL TABLET MECLIZINE HCL 45405946397 No Longer Active Hardeep Barker MD Active LEVAQUIN 500 MG ORAL TABLET 1 tab twice daily LEVOFLOXACIN 45963419652 No Longer Active Halle Sahni MD Active DIFLUCAN 150 MG ORAL TABLET FLUCONAZOLE 70104024114 No Longer Active Halle Sahni MD Active LIPITOR 10 MG ORAL TABLET 1 tab by mouth daily ATORVASTATIN CALCIUM 57434358182 Active Halle Sahni MD Active BYSTOLIC 5 MG ORAL TABLET 1 tab by mouth daily NEBIVOLOL HCL 33959875920 Active Halle Sahni MD Active TRADJENTA 5 MG ORAL TABLET 1 tab by mouth daily LINAGLIPTIN 96303599784 Active Halle Sahni MD Active LISINOPRIL 5 MG ORAL TABLET 1 po qd LISINOPRIL 13045356424 Active Halle Sahni MD Active LEXAPRO 10 MG ORAL TABLET 1 tablet by mouth daily ESCITALOPRAM OXALATE 33426089104 Active Halle Sahni MD Active METFORMIN HCL 500 MG ORAL TABLET 1 tablet by mouth three times daily METFORMIN HCL 63882569002 Active Halle Sahni MD Active DIFLUCAN 150 MG ORAL TABLET DIFLUCAN 150 MG ORAL TABLET 640314 FLUCONAZOLE Inactive LEVAQUIN 500 MG ORAL TABLET 1 tab twice daily LEVAQUIN 500 MG ORAL TABLET 331209 LEVOFLOXACIN Inactive MECLIZINE HCL 12.5 MG ORAL TABLET MECLIZINE HCL 12.5 MG ORAL TABLET 420937 MECLIZINE HCL Inactive BACTRIM DS 800-160 MG ORAL TABLET 1 tab BID BACTRIM DS 800-160 MG ORAL TABLET 225689 SULFAMETHOXAZOLE-TRIMETHOPRIM Inactive Advance Directives Directive Description Start [...] negative Encounters Code Encounter Date Provider Facility [id number] Level 3 Est. Patient 15:50:26 CDJo Sahni MD [facility] CPT-69807 Level 3 Est. Patient 11:10:51 CABLE TENDER Hardeep Barker MD [facility] CPT-58141 Level 4 New Patient 16:02:27 CABLE TENDER Hardeep Barker MD [facility] CPT-38801 Level 4 Est. Patient 13:31:38 CABLE TENDER Halle Sahni MD [facility] CPT-61545 Level 3 Est. Patient 14:10:08 CABLE TENDER Halle Sahni MD [facility] [place] CPT-29922 Level 3 Est. Patient 10:01:09 CDT Halle Sahni MD [facility] CPT-74555 Level 4 New Patient 16:33:13 CDT Halle Sahni MD [facility] Procedures Code Procedure Name Date Entry Date Standard Description CPT-36238 Cystoscopy 15:50:27 CDT CPT-87363 Postop F/U Visit 15:34:52 CABLE TENDER CPT-36065 I/D hematoma seroma fld gauri 11:10:51 CABLE TENDER CPT-78523 Postop F/U Visit 15:20:53 CABLE TENDER CPT-80941 Postop F/U Visit 13:46:08 CABLE TENDER
--- OUTSIDE RECORDS SUMMARY | 2018-11-06 19:01 | XMS REPORT | Continuity of Care Document ---
Demographics Preferred Language Unknown Marital Status Unknown Shinto Affiliation Unknown Race Unknown Ethnic Group Unknown Author Organization Unknown Address Unknown Allergies There is no data. Medications There is no data. Problems Date Dx Coded Attending Type Code Diagnosis Diagnosed By 07/05/2010 [facility] CERTIFIED PHARMACY TECHNICIAN, HEATHER 278.01 OBESITY MORBID 07/05/2010 [facility] CERTIFIED PHARMACY TECHNICIAN, HEATHER 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, Unspecified 07/05/2010 [facility] CERTIFIED PHARMACY TECHNICIAN, HEATHER V15.82 TOBACCOISM 07/05/2010 [facility] CERTIFIED PHARMACY TECHNICIAN, HEATHER 278.01 OBESITY MORBID 07/05/2010 [facility] CERTIFIED PHARMACY TECHNICIAN, HEATHER 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, Unspecified 07/05/2010 [facility] CERTIFIED PHARMACY TECHNICIAN, HEATHER V15.82 TOBACCOISM 07/05/2010 [facility] CERTIFIED PHARMACY TECHNICIAN, HEATHER 278.01 OBESITY MORBID 07/05/2010 [facility] CERTIFIED PHARMACY TECHNICIAN, HEATHER 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, Unspecified 07/05/2010 [facility] CERTIFIED PHARMACY TECHNICIAN, HEATHER V15.82 TOBACCOISM 07/05/2010 [facility] CERTIFIED PHARMACY TECHNICIAN, HEATHER 278.01 OBESITY MORBID 07/05/2010 [facility] CERTIFIED PHARMACY TECHNICIAN, HEATHER 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, Unspecified 07/05/2010 [facility] CERTIFIED PHARMACY TECHNICIAN, HEATHER V15.82 TOBACCOISM 07/05/2010 [facility] CERTIFIED PHARMACY TECHNICIAN, HEATHER 278.01 OBESITY MORBID 07/05/2010 [facility] CERTIFIED PHARMACY TECHNICIAN, HEATHER 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, Unspecified 07/05/2010 [facility] CERTIFIED PHARMACY TECHNICIAN, HEATHER V15.82 TOBACCOISM 07/05/2010 [facility] CERTIFIED PHARMACY TECHNICIAN, HEATHER 278.01 OBESITY MORBID 07/05/2010 [facility] CERTIFIED PHARMACY TECHNICIAN, HEATHER 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, Unspecified 07/05/2010 [facility] CERTIFIED PHARMACY TECHNICIAN, HEATHER V15.82 TOBACCOISM 07/05/2010 [facility] CERTIFIED PHARMACY TECHNICIAN, HEATHER 278.01 OBESITY MORBID 07/05/2010 [facility] CERTIFIED PHARMACY TECHNICIAN, HEATHER 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, Unspecified 07/05/2010 [facility] CERTIFIED PHARMACY TECHNICIAN, HEATHER V15.82 TOBACCOISM 07/05/2010 [facility] CERTIFIED PHARMACY TECHNICIAN, MARIANNA 278.01 OBESITY MORBID 07/05/2010 [facility] CERTIFIED PHARMACY TECHNICIAN, MARIANNA 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, Unspecified 07/05/2010 [facility] CERTIFIED PHARMACY TECHNICIAN, MARIANNA V15.82 TOBACCOISM 07/05/2010 [facility] CERTIFIED PHARMACY TECHNICIAN, MARIANNA 278.01 OBESITY MORBID 07/05/2010 [facility] CERTIFIED PHARMACY TECHNICIAN, MARIANNA 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, Unspecified 07/05/2010 [facility] CERTIFIED PHARMACY TECHNICIAN, MARIANNA V15.82 TOBACCOISM 07/07/2010 [facility] CERTIFIED PHARMACY TECHNICIAN, HEATHER 280.9 Anemia Hypochromic / Microcytic 07/07/2010 [facility] CERTIFIED PHARMACY TECHNICIAN, HEATHER 796.2 Prehypertension 07/07/2010 [facility] CERTIFIED PHARMACY TECHNICIAN, HEATHER V04.81 Influenza Vaccine 07/07/2010 [facility] CERTIFIED PHARMACY TECHNICIAN, HEATHER V68.89 Encounters For Other Specified Administrative Purpose 07/07/2010 [facility] CERTIFIED PHARMACY TECHNICIAN, HEATHER V72.31 Routine Pelvic Exam 07/07/2010 [facility] CERTIFIED PHARMACY TECHNICIAN, HEATHER 280.9 Anemia Hypochromic / Microcytic 07/07/2010 [facility] CERTIFIED PHARMACY TECHNICIAN, HEATHER 796.2 Prehypertension 07/07/2010 [facility] CERTIFIED PHARMACY TECHNICIAN, HEATHER V04.81 Influenza Vaccine 07/07/2010 [facility] CERTIFIED PHARMACY TECHNICIAN, HEATHER V68.89 Encounters For Other Specified Administrative Purpose 07/07/2010 [facility] CERTIFIED PHARMACY TECHNICIAN, HEATHER V72.31 Routine Pelvic Exam 07/07/2010 [facility] CERTIFIED PHARMACY TECHNICIAN, HEATHER 280.9 Anemia Hypochromic / Microcytic 07/07/2010 [facility] CERTIFIED PHARMACY TECHNICIAN, HEATHER 796.2 Prehypertension 07/07/2010 [facility] CERTIFIED PHARMACY TECHNICIAN, HEATHER V04.81 Influenza Vaccine 07/07/2010 [facility] CERTIFIED PHARMACY TECHNICIAN, HEATHER V68.89 Encounters For Other Specified Administrative Purpose 07/07/2010 [facility] CERTIFIED PHARMACY TECHNICIAN, HEATHER V72.31 Routine Pelvic Exam 07/07/2010 [facility] CERTIFIED PHARMACY TECHNICIAN, HEATHER 280.9 Anemia Hypochromic / Microcytic 07/07/2010 [facility] CERTIFIED PHARMACY TECHNICIAN, HEATHER 796.2 Prehypertension 07/07/2010 [facility] CERTIFIED PHARMACY TECHNICIAN, HEATHER V04.81 Influenza Vaccine 07/07/2010 [facility] CERTIFIED PHARMACY TECHNICIAN, HEATHER V68.89 Encounters For Other Specified Administrative Purpose 07/07/2010 [facility] CERTIFIED PHARMACY TECHNICIAN, HEATHER V72.31 Routine Pelvic Exam 07/07/2010 [facility] CERTIFIED PHARMACY TECHNICIAN, HEATHER 280.9 Anemia Hypochromic / Microcytic 07/07/2010 [facility] CERTIFIED PHARMACY TECHNICIAN, HEATHER 796.2 Prehypertension 07/07/2010 [facility] CERTIFIED PHARMACY TECHNICIAN, HEATHER V04.81 Influenza Vaccine 07/07/2010 [facility] CERTIFIED PHARMACY TECHNICIAN, HEATHER V68.89 Encounters For Other Specified Administrative Purpose 07/07/2010 [facility] CERTIFIED PHARMACY TECHNICIAN, HEATHER V72.31 Routine Pelvic Exam 07/07/2010 [facility] CERTIFIED PHARMACY TECHNICIAN, HEATHER 280.9 Anemia Hypochromic / Microcytic 07/07/2010 [facility] CERTIFIED PHARMACY TECHNICIAN, HEATHER 796.2 Prehypertension 07/07/2010 [facility] CERTIFIED PHARMACY TECHNICIAN, HEATHER V04.81 Influenza Vaccine 07/07/2010 [facility] CERTIFIED PHARMACY TECHNICIAN, HEATHER V68.89 Encounters For Other Specified Administrative Purpose 07/07/2010 [facility] CERTIFIED PHARMACY TECHNICIAN, HEATHER V72.31 Routine Pelvic Exam 07/07/2010 [facility] CERTIFIED PHARMACY TECHNICIAN, HEATHER 280.9 Anemia Hypochromic / Microcytic 07/07/2010 [facility] CERTIFIED PHARMACY TECHNICIAN, HEATHER 796.2 Prehypertension 07/07/2010 [facility] CERTIFIED PHARMACY TECHNICIAN, HEATHER V04.81 Influenza Vaccine 07/07/2010 [facility] CERTIFIED PHARMACY TECHNICIAN, HEATHER V68.89 Encounters For Other Specified Administrative Purpose 07/07/2010 [facility] CERTIFIED PHARMACY TECHNICIAN, HEATHER V72.31 Routine Pelvic Exam 07/07/2010 [facility] CERTIFIED PHARMACY TECHNICIANENE 280.9 Anemia Hypochromic / Microcytic 07/07/2010 [facility] CERTIFIED PHARMACY TECHNICIAN, MARIANNA 796.2 Prehypertension 07/07/2010 [facility] CERTIFIED PHARMACY TECHNICIAN, MARIANNA V04.81 Influenza Vaccine 07/07/2010 [facility] CERTIFIED PHARMACY TECHNICIAN, MARIANNA V68.89 Encounters For Other Specified Administrative Purpose 07/07/2010 [facility] CERTIFIED PHARMACY TECHNICIAN, MARIANNA V72.31 Routine Pelvic Exam 07/07/2010 [facility] CERTIFIED PHARMACY TECHNICIAN, MARIANNA 280.9 Anemia Hypochromic / Microcytic 07/07/2010 [facility] CERTIFIED PHARMACY TECHNICIAN, MARIANNA 796.2 Prehypertension 07/07/2010 MARIANNA FAUST APRN V04.81 Influenza Vaccine 07/07/2010 MARIANNA FAUST APRN V68.89 Encounters For Other Specified Administrative Purpose 07/07/2010 MARIANNA FAUST APRN V72.31 Routine Pelvic Exam 10/20/2010 [facility] CERTIFIED PHARMACY TECHNICIAN, HEATHER 112.1 Candidiasis, Of Vulva And Vagina 10/20/2010 [facility] CERTIFIED PHARMACY TECHNICIAN, HEATHER 599.0 Uti 10/20/2010 [facility] CERTIFIED PHARMACY TECHNICIAN, HEATHER 112.1 Candidiasis, Of Vulva And Vagina 10/20/2010 [facility] CERTIFIED PHARMACY TECHNICIAN, HEATHER 599.0 Uti 10/20/2010 [facility] CERTIFIED PHARMACY TECHNICIAN, HEATHER 112.1 Candidiasis, Of Vulva And Vagina 10/20/2010 [facility] CERTIFIED PHARMACY TECHNICIAN, HEATHER 599.0 Uti 10/20/2010 [facility] CERTIFIED PHARMACY TECHNICIAN, HEATHER 112.1 Candidiasis, Of Vulva And Vagina 10/20/2010 [facility] CERTIFIED PHARMACY TECHNICIAN, HEATHER 599.0 Uti 10/20/2010 [facility] CERTIFIED PHARMACY TECHNICIAN, HEATHER 112.1 Candidiasis, Of Vulva And Vagina 10/20/2010 [facility] CERTIFIED PHARMACY TECHNICIAN, HEATHER 599.0 Uti 10/20/2010 [facility] CERTIFIED PHARMACY TECHNICIAN, HEATHER 112.1 Candidiasis, Of Vulva And Vagina 10/20/2010 [facility] CERTIFIED PHARMACY TECHNICIAN, HEATHER 599.0 Uti 10/20/2010 [facility] CERTIFIED PHARMACY TECHNICIAN, HEATHER 112.1 Candidiasis, Of Vulva And Vagina 10/20/2010 [facility] CERTIFIED PHARMACY TECHNICIAN, HAETHER 599.0 Uti 10/20/2010 [facility] CERTIFIED PHARMACY TECHNICIAN, MARIANNA 112.1 Candidiasis, Of Vulva And Vagina 10/20/2010 [facility] CERTIFIED PHARMACY TECHNICIAN, MARIANNA 599.0 Uti 10/20/2010 [facility] CERTIFIED PHARMACY TECHNICIAN, MARIANNA 112.1 Candidiasis, Of Vulva And Vagina 10/20/2010 [facility] CERTIFIED PHARMACY TECHNICIAN, MARIANNA 599.0 Uti 10/24/2010 [facility] CERTIFIED PHARMACY TECHNICIAN, HEATHER 250.00 DIABETES MELLITUS TYPE 2 10/24/2010 [facility] CERTIFIED PHARMACY TECHNICIAN, HEATHER 466.0 Bronchitis, Acute 10/24/2010 [facility] CERTIFIED PHARMACY TECHNICIAN, HEATHER 496 PULMONARY OBSTRUCTIVE DISORDERS 10/24/2010 [facility] CERTIFIED PHARMACY TECHNICIAN, HEATHER 250.00 DIABETES MELLITUS TYPE 2 10/24/2010 [facility] CERTIFIED PHARMACY TECHNICIAN, HEATHER 466.0 Bronchitis, Acute 10/24/2010 [facility] CERTIFIED PHARMACY TECHNICIAN, HEATHER 496 PULMONARY OBSTRUCTIVE DISORDERS 10/24/2010 [facility] CERTIFIED PHARMACY TECHNICIAN, HEATHER 250.00 DIABETES MELLITUS TYPE 2 10/24/2010 [facility] CERTIFIED PHARMACY TECHNICIAN, HEATHER 466.0 Bronchitis, Acute 10/24/2010 [facility] CERTIFIED PHARMACY TECHNICIAN, HEATHER 496 PULMONARY OBSTRUCTIVE DISORDERS 10/24/2010 [facility] CERTIFIED PHARMACY TECHNICIAN, HEATHER 250.00 DIABETES MELLITUS TYPE 2 10/24/2010 [facility] CERTIFIED PHARMACY TECHNICIAN, HEATHER 466.0 Bronchitis, Acute 10/24/2010 [facility] CERTIFIED PHARMACY TECHNICIAN, HEATHER 496 PULMONARY OBSTRUCTIVE DISORDERS 10/24/2010 [facility] CERTIFIED PHARMACY TECHNICIAN, HEATHER 250.00 DIABETES MELLITUS TYPE 2 10/24/2010 [facility] CERTIFIED PHARMACY TECHNICIAN, HEATHER 466.0 Bronchitis, Acute 10/24/2010 [facility] CERTIFIED PHARMACY TECHNICIAN, HEATHER 496 PULMONARY OBSTRUCTIVE DISORDERS 10/24/2010 [facility] CERTIFIED PHARMACY TECHNICIAN, HEATHER 250.00 DIABETES MELLITUS TYPE 2 10/24/2010 [facility] CERTIFIED PHARMACY TECHNICIAN, HEATHER 466.0 Bronchitis, Acute 10/24/2010 [facility] CERTIFIED PHARMACY TECHNICIAN, HEATHER 496 PULMONARY OBSTRUCTIVE DISORDERS 10/24/2010 [facility] CERTIFIED PHARMACY TECHNICIAN, HEATHER 250.00 DIABETES MELLITUS TYPE 2 10/24/2010 [facility] CERTIFIED PHARMACY TECHNICIAN, HEATHER 466.0 Bronchitis, Acute 10/24/2010 [facility] CERTIFIED PHARMACY TECHNICIAN, HEATHER 496 PULMONARY OBSTRUCTIVE DISORDERS 10/24/2010 [facility] CERTIFIED PHARMACY TECHNICIAN, MARIANNA 250.00 DIABETES MELLITUS TYPE 2 10/24/2010 [facility] CERTIFIED PHARMACY TECHNICIAN, MARIANNA 466.0 Bronchitis, Acute 10/24/2010 [facility] CERTIFIED PHARMACY TECHNICIAN, MARIANNA 496 PULMONARY OBSTRUCTIVE DISORDERS 10/24/2010 [facility] CERTIFIED PHARMACY TECHNICIAN, MARIANNA 250.00 DIABETES MELLITUS TYPE 2 10/24/2010 [facility] CERTIFIED PHARMACY TECHNICIAN, MARIANNA 466.0 Bronchitis, Acute 10/24/2010 [facility] CERTIFIED PHARMACY TECHNICIAN, MARIANNA 496 PULMONARY OBSTRUCTIVE DISORDERS 05/12/2011 [facility] CERTIFIED PHARMACY TECHNICIAN, HEATHER 703.0 Ingrowing Nail 05/12/2011 [facility] CERTIFIED PHARMACY TECHNICIAN, HEATHER 726.91 EXOSTOSIS OF UNSPECIFIED SITE 05/12/2011 [facility] CERTIFIED PHARMACY TECHNICIAN, HEATHER 703.0 Ingrowing Nail 05/12/2011 [facility] CERTIFIED PHARMACY TECHNICIAN, HEATHER 726.91 EXOSTOSIS OF UNSPECIFIED SITE 05/12/2011 [facility] CERTIFIED PHARMACY TECHNICIAN, HEATHER 703.0 Ingrowing Nail 05/12/2011 [facility] CERTIFIED PHARMACY TECHNICIAN, HEATHER 726.91 EXOSTOSIS OF UNSPECIFIED SITE 05/12/2011 [facility] CERTIFIED PHARMACY TECHNICIAN, HEATHER 703.0 Ingrowing Nail 05/12/2011 [facility] CERTIFIED PHARMACY TECHNICIAN, HEATHER 726.91 EXOSTOSIS OF UNSPECIFIED SITE 05/12/2011 [facility] CERTIFIED PHARMACY TECHNICIAN, HEATHER 703.0 Ingrowing Nail 05/12/2011 [facility] CERTIFIED PHARMACY TECHNICIAN, HEATHER 726.91 EXOSTOSIS OF UNSPECIFIED SITE 05/12/2011 [facility] CERTIFIED PHARMACY TECHNICIAN, HEATHER 703.0 Ingrowing Nail 05/12/2011 [facility] CERTIFIED PHARMACY TECHNICIAN, HEATHER 726.91 EXOSTOSIS OF UNSPECIFIED SITE 05/12/2011 [facility] CERTIFIED PHARMACY TECHNICIAN, HEATHER 703.0 Ingrowing Nail 05/12/2011 [facility] CERTIFIED PHARMACY TECHNICIAN, HEATHER 726.91 EXOSTOSIS OF UNSPECIFIED SITE 05/12/2011 [facility] CERTIFIED PHARMACY TECHNICIAN, MARIANNA 703.0 Ingrowing Nail 05/12/2011 [facility] CERTIFIED PHARMACY TECHNICIAN, MARIANNA 726.91 EXOSTOSIS OF UNSPECIFIED SITE 05/12/2011 [facility] CERTIFIED PHARMACY TECHNICIAN, MARIANNA 703.0 Ingrowing Nail 05/12/2011 [facility] CERTIFIED PHARMACY TECHNICIAN, MARIANNA 726.91 EXOSTOSIS OF UNSPECIFIED SITE 06/02/2011 [facility] CERTIFIED PHARMACY TECHNICIAN, HEATHER 078.12 Plantar Wart 06/02/2011 [facility] CERTIFIED PHARMACY TECHNICIAN, HEATHER 078.12 Plantar Wart 06/02/2011 [facility] CERTIFIED PHARMACY TECHNICIAN, HEATHER 078.12 Plantar Wart 06/02/2011 [facility] CERTIFIED PHARMACY TECHNICIAN, HEATHER 078.12 Plantar Wart 06/02/2011 [facility] CERTIFIED PHARMACY TECHNICIAN, HEATHER 078.12 Plantar Wart 06/02/2011 [facility] CERTIFIED PHARMACY TECHNICIAN, HEATHER 078.12 Plantar Wart 06/02/2011 [facility] CERTIFIED PHARMACY TECHNICIAN, HEATHER 078.12 Plantar Wart 06/02/2011 [facility] CERTIFIED PHARMACY TECHNICIAN, MARIANNA 078.12 Plantar Wart 06/02/2011 [facility] CERTIFIED PHARMACY TECHNICIAN, MARIANNA 078.12 Plantar Wart 07/05/2011 [facility] CERTIFIED PHARMACY TECHNICIAN, HEATHER 466.0 ACUTE BRONCHITIS 07/05/2011 [facility] CERTIFIED PHARMACY TECHNICIAN, HEATHER 466.0 ACUTE BRONCHITIS 07/05/2011 [facility] CERTIFIED PHARMACY TECHNICIAN, HEATHER 466.0 ACUTE BRONCHITIS 07/05/2011 [facility] CERTIFIED PHARMACY TECHNICIAN, HEATHER 466.0 ACUTE BRONCHITIS 07/05/2011 [facility] CERTIFIED PHARMACY TECHNICIAN, HEATHER 466.0 ACUTE BRONCHITIS 07/05/2011 [facility] CERTIFIED PHARMACY TECHNICIAN, HEATHER 466.0 ACUTE BRONCHITIS 07/05/2011 [facility] CERTIFIED PHARMACY TECHNICIAN, HEATHER 466.0 ACUTE BRONCHITIS 07/05/2011 [facility] CERTIFIED PHARMACY TECHNICIAN, MARIANNA 466.0 ACUTE BRONCHITIS 07/05/2011 [facility] CERTIFIED PHARMACY TECHNICIAN, MARIANNA 466.0 ACUTE BRONCHITIS 11/20/2011 [facility] CERTIFIED PHARMACY TECHNICIAN, HEATHER 682.9 CELLULITIS 11/20/2011 [facility] CERTIFIED PHARMACY TECHNICIAN, HEATHER 682.9 CELLULITIS 11/20/2011 [facility] CERTIFIED PHARMACY TECHNICIAN, HEATHER 682.9 CELLULITIS 11/20/2011 [facility] CERTIFIED PHARMACY TECHNICIAN, HEATHER 682.9 CELLULITIS 11/20/2011 [facility] CERTIFIED PHARMACY TECHNICIAN, HEATHER 682.9 CELLULITIS 11/20/2011 [facility] CERTIFIED PHARMACY TECHNICIAN, HEATHER 682.9 CELLULITIS 11/20/2011 [facility] CERTIFIED PHARMACY TECHNICIAN, HEATHER 682.9 CELLULITIS 11/20/2011 [facility] CERTIFIED PHARMACY TECHNICIAN, MARIANNA 682.9 CELLULITIS 11/20/2011 [facility] CERTIFIED PHARMACY TECHNICIAN, MARIANNA 682.9 CELLULITIS 12/22/2011 [facility] CERTIFIED PHARMACY TECHNICIAN, HEATHER 401.1 ESSENTIAL HYPERTENSION BENIGN 12/22/2011 [facility] CERTIFIED PHARMACY TECHNICIAN, HEATHER 401.1 ESSENTIAL HYPERTENSION BENIGN 12/22/2011 [facility] CERTIFIED PHARMACY TECHNICIAN, HEATHER 401.1 ESSENTIAL HYPERTENSION BENIGN 12/22/2011 [facility] CERTIFIED PHARMACY TECHNICIAN, HEATHER 401.1 ESSENTIAL HYPERTENSION BENIGN 12/22/2011 [facility] CERTIFIED PHARMACY TECHNICIAN, HEATHER 401.1 ESSENTIAL HYPERTENSION BENIGN 12/22/2011 [facility] CERTIFIED PHARMACY TECHNICIAN, HEATHER 401.1 ESSENTIAL HYPERTENSION BENIGN 12/22/2011 [facility] CERTIFIED PHARMACY TECHNICIAN, HEATHER 401.1 ESSENTIAL HYPERTENSION BENIGN 12/22/2011 GOVIND ULLOAMARIANNA Sunshine 401.1 ESSENTIAL HYPERTENSION BENIGN 12/22/2011 GOVIND MARIANNA WRIGHT 401.1 ESSENTIAL HYPERTENSION BENIGN 04/09/2012 [facility] CERTIFIED PHARMACY TECHNICIAN, HEATHER 272.2 HYPERLIPIDEMIA 04/09/2012 [facility] CERTIFIED PHARMACY TECHNICIAN, HEATHER V04.81 Need For Prophylactic Vaccination And Inoculation Against Influenza 04/09/2012 [facility] CERTIFIED PHARMACY TECHNICIANHEATHER 272.2 HYPERLIPIDEMIA 04/09/2012 [facility] CERTIFIED PHARMACY TECHNICIAN HEATHER V04.81 Need For Prophylactic Vaccination And Inoculation Against Influenza 04/09/2012 [facility] CERTIFIED PHARMACY TECHNICIANHEATHER Sunshine 272.2 HYPERLIPIDEMIA 04/09/2012 [facility] CERTIFIED PHARMACY TECHNICIAN, HEATHER V04.81 Need For Prophylactic Vaccination And Inoculation Against Influenza 04/09/2012 [facility] CERTIFIED PHARMACY TECHNICIANHEATHER Sunshine 272.2 HYPERLIPIDEMIA 04/09/2012 [facility] CERTIFIED PHARMACY TECHNICIANHEATHER Sunshine V04.81 Need For Prophylactic Vaccination And Inoculation Against Influenza 04/09/2012 [facility] CERTIFIED PHARMACY TECHNICIANHEATHER Sunshine 272.2 HYPERLIPIDEMIA 04/09/2012 [facility] CERTIFIED PHARMACY TECHNICIAN, HEATHER V04.81 Need For Prophylactic Vaccination And Inoculation Against Influenza 04/09/2012 [facility] CERTIFIED PHARMACY TECHNICIANHEATHER Sunshine 272.2 HYPERLIPIDEMIA 04/09/2012 [facility] CERTIFIED PHARMACY TECHNICIAN, HEATHER V04.81 Need For Prophylactic Vaccination And Inoculation Against Influenza 04/09/2012 [facility] CERTIFIED PHARMACY TECHNICIANHEATHER Sunshine 272.2 HYPERLIPIDEMIA 04/09/2012 [facility] CERTIFIED PHARMACY TECHNICIAN, HEATHER V04.81 Need For Prophylactic Vaccination And Inoculation Against Influenza 04/09/2012 GOVIND MARIANNA WRIGHT 272.2 HYPERLIPIDEMIA 04/09/2012 GOVIND MARIANNA WRIGHT V04.81 Need For Prophylactic Vaccination And Inoculation Against Influenza 04/09/2012 GOVIND MARIANNA WRIGHT 272.2 HYPERLIPIDEMIA 04/09/2012 GOVIND MARIANNA WRIGHT V04.81 Need For Prophylactic Vaccination And Inoculation Against Influenza 05/14/2012 [facility] HEATHER WRIGHT 682.9 Cellulitis/abscess 05/14/2012 [facility] HEATHER WRIGHT 682.9 Cellulitis/abscess 05/14/2012 [facility] HEATHER WRIGHT 682.9 Cellulitis/abscess 05/14/2012 [facility] CERTIFIED PHARMACY TECHNICIAN, HEATHER 682.9 Cellulitis/abscess 05/14/2012 [facility] CERTIFIED PHARMACY TECHNICIAN, HEATHER 682.9 Cellulitis/abscess 05/14/2012 [facility] CERTIFIED PHARMACY TECHNICIAN, HEATHER 682.9 Cellulitis/abscess 05/14/2012 [facility] CERTIFIED PHARMACY TECHNICIAN, HEATHER 682.9 Cellulitis/abscess 05/14/2012 [facility] CERTIFIED PHARMACY TECHNICIAN, MARIANNA 682.9 Cellulitis/abscess 05/14/2012 [facility] CERTIFIED PHARMACY TECHNICIAN, MARIANNA 682.9 Cellulitis/abscess 06/24/2012 [facility] CERTIFIED PHARMACY TECHNICIAN, HEATHER 112.1 Candidiasis, Of Vulva And Vagina 06/24/2012 [facility] CERTIFIED PHARMACY TECHNICIAN, HEATHER 112.1 Candidiasis, Of Vulva And Vagina 06/24/2012 [facility] CERTIFIED PHARMACY TECHNICIAN, HEATHER 112.1 Candidiasis, Of Vulva And Vagina 06/24/2012 [facility] CERTIFIED PHARMACY TECHNICIAN, HEATHER 112.1 Candidiasis, Of Vulva And Vagina 06/24/2012 [facility] CERTIFIED PHARMACY TECHNICIAN, HEATHER 112.1 Candidiasis, Of Vulva And Vagina 06/24/2012 [facility] CERTIFIED PHARMACY TECHNICIAN, HEATHER 112.1 Candidiasis, Of Vulva And Vagina 06/24/2012 [facility] CERTIFIED PHARMACY TECHNICIAN, HEATHER 112.1 Candidiasis, Of Vulva And Vagina 06/24/2012 [facility] CERTIFIED PHARMACY TECHNICIAN, MARIANNA 112.1 Candidiasis, Of Vulva And Vagina 06/24/2012 [facility] CERTIFIED PHARMACY TECHNICIAN, MARIANNA 112.1 Candidiasis, Of Vulva And Vagina 06/28/2012 [facility] CERTIFIED PHARMACY TECHNICIAN, HEATHER 110.1 Onychomycosis 06/28/2012 [facility] CERTIFIED PHARMACY TECHNICIAN, HEATHER 703.8 Other Specified Diseases Of Nail 06/28/2012 [facility] CERTIFIED PHARMACY TECHNICIAN, HEATHER 110.1 Onychomycosis 06/28/2012 [facility] CERTIFIED PHARMACY TECHNICIAN, HEATHER 703.8 Other Specified Diseases Of Nail 06/28/2012 BRANDEE CERTIFIED PHARMACY TECHNICIAN, HEATHER 110.1 Onychomycosis 06/28/2012 BRANDEE CERTIFIED PHARMACY TECHNICIAN, HEATHER 703.8 Other Specified Diseases Of Nail 06/28/2012 BRANDEE CERTIFIED PHARMACY TECHNICIAN, HEATHER 110.1 Onychomycosis 06/28/2012 BRANDEE CERTIFIED PHARMACY TECHNICIAN, HEATHER 703.8 Other Specified Diseases Of Nail 06/28/2012 BRANDEE CERTIFIED PHARMACY TECHNICIAN, HEATHER 110.1 Onychomycosis 06/28/2012 BRANDEE CERTIFIED PHARMACY TECHNICIAN, HEATHER 703.8 Other Specified Diseases Of Nail 06/28/2012 BRANDEE CERTIFIED PHARMACY TECHNICIAN, HEATHER 110.1 Onychomycosis 06/28/2012 BRANDEE CERTIFIED PHARMACY TECHNICIAN, HEATHER 703.8 Other Specified Diseases Of Nail 06/28/2012 BRANDEE CERTIFIED PHARMACY TECHNICIAN, HEATHER 110.1 Onychomycosis 06/28/2012 BRANDEE CERTIFIED PHARMACY TECHNICIAN, HEATHER 703.8 Other Specified Diseases Of Nail 06/28/2012 GOVIND CERTIFIED PHARMACY TECHNICIAN, MARIANNA 110.1 Onychomycosis 06/28/2012 GOVIND CERTIFIED PHARMACY TECHNICIAN, MARIANNA 703.8 Other Specified Diseases Of Nail 06/28/2012 GOVIND CERTIFIED PHARMACY TECHNICIAN, MARIANNA 110.1 Onychomycosis 06/28/2012 GOVIND CERTIFIED PHARMACY TECHNICIAN, MARIANNA 703.8 Other Specified Diseases Of Nail 08/21/2012 BRANDEE CERTIFIED PHARMACY TECHNICIAN, HEATHER 682.9 Cellulitis/abscess 08/21/2012 BRANDEE CERTIFIED PHARMACY TECHNICIAN, HEATHER V72.31 Gynecological Exam 08/21/2012 BRANDEE CERTIFIED PHARMACY TECHNICIAN, HEATHER 682.9 Cellulitis/abscess 08/21/2012 BRANDEE CERTIFIED PHARMACY TECHNICIAN, HEATHER V72.31 Gynecological Exam 08/21/2012 BRANDEE CERTIFIED PHARMACY TECHNICIAN, HEATHER 682.9 Cellulitis/abscess 08/21/2012 BRANDEE CERTIFIED PHARMACY TECHNICIAN, HEATHER V72.31 Gynecological Exam 08/21/2012 BRANDEE CERTIFIED PHARMACY TECHNICIAN, HEATHER 682.9 Cellulitis/abscess 08/21/2012 BRANDEE CERTIFIED PHARMACY TECHNICIAN, HEATHER V72.31 Gynecological Exam 08/21/2012 BRANDEE CERTIFIED PHARMACY TECHNICIAN, HEATHER 682.9 Cellulitis/abscess 08/21/2012 BRANDEE CERTIFIED PHARMACY TECHNICIAN, HEATHER V72.31 Gynecological Exam 08/21/2012 BRANDEE CERTIFIED PHARMACY TECHNICIAN, HEATHER 682.9 Cellulitis/abscess 08/21/2012 BRANDEE CERTIFIED PHARMACY TECHNICIAN, HEATHER V72.31 Gynecological Exam 08/21/2012 BRANDEE CERTIFIED PHARMACY TECHNICIAN, HEATHER 682.9 Cellulitis/abscess 08/21/2012 BRANDEE CERTIFIED PHARMACY TECHNICIAN, HEATHER V72.31 Gynecological Exam 08/21/2012 GOVIND CERTIFIED PHARMACY TECHNICIAN, MARIANNA 682.9 Cellulitis/abscess 08/21/2012 GOVIND CERTIFIED PHARMACY TECHNICIAN, MARIANNA V72.31 Gynecological Exam 08/21/2012 GOVIND CERTIFIED PHARMACY TECHNICIAN, MARIANNA 682.9 Cellulitis/abscess 08/21/2012 GOVIND CERTIFIED PHARMACY TECHNICIAN, MARIANNA V72.31 Gynecological Exam 10/08/2012 BRANDEE CERTIFIED PHARMACY TECHNICIAN, HEATHER 466.0 Bronchitis, Acute 10/08/2012 BRANDEE CERTIFIED PHARMACY TECHNICIAN, HEATHER 466.0 Bronchitis, Acute 10/08/2012 BRANDEE CERTIFIED PHARMACY TECHNICIAN, HEATHER 466.0 Bronchitis, Acute 10/08/2012 BRANDEE CERTIFIED PHARMACY TECHNICIAN, HEATHER 466.0 Bronchitis, Acute 10/08/2012 BRANDEE CERTIFIED PHARMACY TECHNICIAN, HEATHER 466.0 Bronchitis, Acute 10/08/2012 BRANDEE CERTIFIED PHARMACY TECHNICIAN, HEATHER 466.0 Bronchitis, Acute 10/08/2012 BRANDEE CERTIFIED PHARMACY TECHNICIAN, HEATHER 466.0 Bronchitis, Acute 10/08/2012 GOVIND CERTIFIED PHARMACY TECHNICIAN, MARIANNA 466.0 Bronchitis, Acute 10/08/2012 GOVIND CERTIFIED PHARMACY TECHNICIAN, MARIANNA 466.0 Bronchitis, Acute 12/05/2012 BRANDEE CERTIFIED PHARMACY TECHNICIAN, HEATHER 599.0 Uti 12/05/2012 BRANDEE CERTIFIED PHARMACY TECHNICIAN, HEATHER 599.0 Uti 12/05/2012 BRANDEE CERTIFIED PHARMACY TECHNICIAN, HEATHER 599.0 Uti 12/05/2012 BRANDEE CERTIFIED PHARMACY TECHNICIAN, HEATHER 599.0 Uti 12/05/2012 BRANDEE CERTIFIED PHARMACY TECHNICIAN, HEATHER 599.0 Uti 12/05/2012 BRANDEE CERTIFIED PHARMACY TECHNICIAN, HEATHER 599.0 Uti 12/05/2012 BRANDEE CERTIFIED PHARMACY TECHNICIAN, HEATHER 599.0 Uti 12/05/2012 GOVIND CERTIFIED PHARMACY TECHNICIAN, MARIANNA 599.0 Uti 12/05/2012 GOVIND CERTIFIED PHARMACY TECHNICIAN, MARIANNA 599.0 Uti 05/21/2013 BRANDEE CERTIFIED PHARMACY TECHNICIAN, HEATHER 285.9 ANEMIA, UNSPECIFIED 05/21/2013 BRANDEE CERTIFIED PHARMACY TECHNICIAN, HEATHER 285.9 ANEMIA, UNSPECIFIED 05/21/2013 BRANDEE CERTIFIED PHARMACY TECHNICIAN, HEATHER 285.9 ANEMIA, UNSPECIFIED 05/21/2013 BRANDEE CERTIFIED PHARMACY TECHNICIAN, HEATHER 285.9 ANEMIA, UNSPECIFIED 05/21/2013 BRANDEE CERTIFIED PHARMACY TECHNICIAN, HEATHER 285.9 ANEMIA, UNSPECIFIED 05/21/2013 BRANDEE CERTIFIED PHARMACY TECHNICIAN, HEATHER 285.9 ANEMIA, UNSPECIFIED 05/21/2013 BRANDEE CERTIFIED PHARMACY TECHNICIAN, HEATHER 285.9 ANEMIA, UNSPECIFIED 05/21/2013 MARIANNA FAUST APRN 285.9 ANEMIA, UNSPECIFIED 08/07/2013 BRANDEE CERTIFIED PHARMACY TECHNICIAN, HEATHER 682.5 CELLULITIS AND ABSCESS OF BUTTOCK 08/07/2013 BRANDEE CERTIFIED PHARMACY TECHNICIAN, HEATHER 682.5 CELLULITIS AND ABSCESS OF BUTTOCK 08/07/2013 BRANDEE CERTIFIED PHARMACY TECHNICIAN, HEATHER 682.5 CELLULITIS AND ABSCESS OF BUTTOCK 08/07/2013 BRANDEE CERTIFIED PHARMACY TECHNICIAN, HEATHER 682.5 CELLULITIS AND ABSCESS OF BUTTOCK 08/07/2013 BRANDEE CERTIFIED PHARMACY TECHNICIAN, HEATHER 682.5 CELLULITIS AND ABSCESS OF BUTTOCK 08/07/2013 BRANDEE CERTIFIED PHARMACY TECHNICIAN, HEATHER 682.5 CELLULITIS AND ABSCESS OF BUTTOCK 08/07/2013 BRANDEE CERTIFIED PHARMACY TECHNICIAN, HEATHER 682.5 CELLULITIS AND ABSCESS OF BUTTOCK 12/12/2013 BRANDEE HEATHER WRIGHT 250.02 DIABETES MELLITUS WITHOUT MENTION OF COMPLICATION TYPE II OR UNSPECIFIED TYPE UNCONTROLLED 12/12/2013 BRANDEE CERTIFIED PHARMACY TECHNICIANHEATHER Sunshine 250.02 DIABETES MELLITUS WITHOUT MENTION OF COMPLICATION TYPE II OR UNSPECIFIED TYPE UNCONTROLLED 12/12/2013 BRANDEE HEATHER WRIGHT 250.02 DIABETES MELLITUS WITHOUT MENTION OF COMPLICATION TYPE II OR UNSPECIFIED TYPE UNCONTROLLED 12/12/2013 BRANDEE CERTIFIED PHARMACY TECHNICIAN, HEATHER 250.02 DIABETES MELLITUS WITHOUT MENTION OF [...] Procedures Code Description [place] [address] GLUCOSE 05/08/2013 30253 HEMOGLOBIN A1C 05/08/2013 G0008 ADMIN FEE (MEDICARE) INFLUENZA 05/14/2013 95052 CBC - CBC WITH DIFF - LC 05/15/2013 75748 COMP - COMPREHENSIVE PANEL - LC 05/15/2013 55845 LIPID - LIPID PANEL - LC 05/15/2013 41386 TSH - TSH - LC 05/15/2013 36773 MALB - MICROALBUMIN - LC 05/15/2013 43595 GLUCOSE 08/11/2013 34080 HEMOGLOBIN A1C 08/11/2013 91089 CBC WITH DIFF 08/12/2013 64844 GLUCOSE 10/07/2013 4000F TOBACCO USE TXMNT COUNSELING 10/13/2013 27780 PULSE OXIMETRY 12/12/2013 A4614 PEAK FLOW 12/12/2013 63754 GLUCOSE 12/12/2013 69630 HEMOGLOBIN A1C 12/12/2013 Pulmonary Pulmonary Function Test 01/13/2014 A4614 PEAK FLOW 02/10/2014 02768 PULSE OXIMETRY 02/10/2014 08877 GLUCOSE 02/10/2014 Endocrino Endocrinology 02/13/2014 Pulmonary Pulmonology, Pulmonology 03/13/2014 16272 PULSE OXIMETRY 04/14/2014 A4614 PEAK FLOW 04/14/2014 [...] 7-25 CREATININE 0.90 mg/dL 0.50-1.05 eGFR NON-AFR. BULGARIAN 74 mL/min/1.73m2 > OR=60 eGFR 86 mL/min/1.73m2 [...] Status Pt. Type Provider Facility Loc./Unit Complaint [id number] 10/30/2018 17:22:00 Document Registration [id number] 04/14/2014 08:59:00 04/14/2014 11:05:00 DIS Outpatient HEATHER IRVIN APRN [id number] 02/10/2014 09:57:00 02/10/2014 23:59:59 CLS Outpatient HEATHER IRVIN APRN [id number] 02/10/2014 09:57:00 02/10/2014 23:59:59 CLS Outpatient HEATHER IRVIN APRN [id number] 12/12/2013 10:38:00 12/12/2013 23:59:59 CLS Outpatient HEATHER IRVIN APRN [id number] 10/07/2013 14:37:00 10/13/2013 20:05:00 DIS Outpatient HEATHER IRVIN APRN [id number] 10/07/2013 14:37:00 10/07/2013 23:59:59 CLS Outpatient HEATHER IRVIN APRN [id number] 08/11/2013 10:11:00 08/11/2013 13:49:00 DIS Outpatient HEATHER IRVIN APRN [id number] 05/08/2013 09:56:00 05/08/2013 23:59:59 CLS Outpatient GOVIND ULLOAJong MARIANNA [id number] 01/08/2013 08:25:00 01/08/2013 23:59:59 CLS Outpatient GOVIND KYLE MARIANNA [id number] 11/04/2018 10:50:00 [facility] [id number] 10/07/2018 13:15:00 Document Registration [id number] 09/25/2018 09:45:00 Document Registration [id number] 11/01/2018 11:38:02 ACT Unknown Bora BATEMAN, Halle Licea [id number] 10/15/2014 15:34:45 10/15/2014 23:59:00 DIS Outpatient SONY CAMPO [facility] [id number] 08/12/2014 12:31:00 08/12/2014 14:34:00 DIS Emergency [facility] FED [id number] 06/21/2014 16:47:00 06/21/2014 17:52:00 DIS Emergency [facility] FED [id number] 09/02/2014 00:00:00 Document Registration
[2018-11-06 19:13] LABS: HEMATOCRIT 23 % (35-52); HEMOGLOBIN 7.3 G/DL (11.5-16.0); LYMPHOCYTES % (AUTO) 20 % (12-44); MEAN CORPUSCULAR HEMOGLOBIN 27 PG (25-34); MEAN CORPUSCULAR HGB CONC 32 G/DL (32-36); MEAN CORPUSCULAR VOLUME 86 FL (80-99); MEAN PLATELET VOLUME 11.3 FL (7.4-10.4); NEUTROPHILS % (AUTO) 67 % (42-75); PLATELET COUNT 138 10^3/uL (130-400); RED CELL DISTRIBUTION WIDTH 22.3 % (10.0-14.5); WHITE BLOOD COUNT 9.3 10^3/uL (4.3-11.0)
[2018-11-06 19:14] LABS: BASOPHILS # (AUTO) 0.1 10^3/uL (0.0-0.1); BASOPHILS % (AUTO) 1 % (0-10); EOSINOPHILS % (AUTO) 0 % (0-10); LYMPHOCYTES # (AUTO) 1.9 X 10^3 (1.0-4.0); MONOCYTES % (AUTO) 11 % (0-12); NEUTROPHILS # (AUTO) 6.2 X 10^3 (1.8-7.8)
--- NOTE | 2018-11-06 19:24 | Diagnostic Imaging Report ---
INDICATION: Chest pain. Frontal chest obtained at 6:56 p.m. and compared to 10/16/2018. FINDINGS: Port-A-Cath is unchanged. There is no pneumothorax. There appears to be a new infiltrate in the right medial base suspicious for pneumonia. There is no pneumothorax or pleural fluid. IMPRESSION: New alveolar infiltrate right medial base suspicious for pneumonia. Followup is recommended. Dictated by: Dictated on workstation # [id number]
[2018-11-06 19:44] LABS: CREATININE SERUM 1.6 MG/DL (0.60-1.30)
[2018-11-06 19:45] LABS: ALBUMIN 3.3 GM/DL (3.2-4.5); BILIRUBIN,TOTAL 0.3 MG/DL (0.1-1.0); CALCIUM 8.8 MG/DL (8.5-10.1)
[2018-11-06] MEDS ORDERED: NS IV 1000 ML 1,000 ML IV SCH (20:15)
[2018-11-06 20:17] LABS: ANISOCYTOSIS SLIGHT; BAND NEUTROPHILS 3 %; BASOPHILS % (MANUAL) 1 %; EOSINOPHILS % (MANUAL) 1 %; LYMPHOCYTES % (MANUAL) 19 %; MICROCYTOSIS SLIGHT; MONOCYTES % (MANUAL) 4 %; NEUTROPHILS % (MANUAL) 72 %
[2018-11-06] MEDS ORDERED: PIPERACILLIN/TAZOBACTAM (BULK) 4.5 GM in NS (IVPB) 100 ML IV ONE (20:45)
[2018-11-06] MEDS ORDERED: NS (IVPB) 100 ML ONE (20:52)
[2018-11-06] MEDS ORDERED: PIPERACILLIN/TAZO 4.5 GM VIAL (ZOSYN) IV ONE (20:52)
--- NOTE | 2018-11-06 21:29 | NUR ---
POC 418
--- NOTE | 2018-11-06 22:20 | NUR ---
POC 403
[2018-11-06] MEDS ORDERED: inSUlin ASPART (NovoLOG) 1 UNIT/0.01 ML (CHARGE PER UNIT) ONE (23:02)
[2018-11-07 01:30] VITALS: BP 110/63
--- NOTE | 2018-11-07 04:58 | ED Dyspnea ---
General Chief Complaint: Chest Pain Stated Complaint: SOB,CHEST PAIN Nursing Triage Note: Patient arrived by private vehicle with chief complaint of chest pain. Pt stated pain radiates across the chest. She stated that onset was around 1730. Pt stated that she went to urgent care and they sent her to ER. She stated her doctor wanted her to get a chest xray, because of possible pneumonia, possible low iron and had low blood pressure. Pt's triage bp was 98/57 and at recheck was 89/50. Source of Information: Patient Exam Limitations: No Limitations History of Present Illness Date Seen by Provider: Nov 06, 2018 Time Seen by Provider: 20:00 Initial Comments Pt seen and evaluated during EMR downtime. This is delayed documentation and times will not be completely accurate. This is a 53 y/o f who presents to the ED for evaluation of cough/SOB and dizziness. 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 Recently discovered that she has bladder tumors that need further evaluation. Progression of cough/ malaise/weakness over the past 2 days. Seen in clinic 2 days ago and started on Doxycycline with no improvement. Here with progressive cough, chest pain with cough, SOB, weakness and dizziness with standing. Found to have mild hypotension in triage. Reports history of HTN and is on HTN medications which she took today. Allergies and Home Medications Allergies Coded Allergies: No Known Drug Allergies (Unverified , 10/16/18) Patient Home Medication List Home Medication List Reviewed: Yes Review of Systems Review of Systems Constitutional: chills, fever, malaise, weakness EENTM: No blurred vision, No double vision Respiratory: cough, dyspnea on exertion, orthopnea, short of breath; No stridor , No wheezing Cardiovascular: chest pain; No edema; palpitations; No syncope Gastrointestinal: No abdominal pain, No diarrhea, No nausea, No vomiting Genitourinary: No dysuria, No frequency, No hematuria Skin: No rash Psychiatric/Neurological: Denies Anxiety, Denies Depressed, Denies Headache, Denies Paresthesia; Weakness All Other Systems Reviewed Negative Unless Noted: Yes Past Rahuxun-Pzusnp-Zqqdbl Hx Patient Social History Alcohol Use: Denies Use Recreational Drug Use: Yes (Previously used Meth (4 years ago)) Drug of Choice: marijuana Smoking Status: Current Everyday Smoker Type Used: Cigarettes 2nd Hand Smoke Exposure: Yes Recent Foreign Travel: No Contact w/Someone Who Travel: No Recent Infectious Disease Expo: No Recent Hopitalizations: No Physical Abuse: No Sexual Abuse: No Mistreated: No Fear: No Seasonal Allergies Seasonal Allergies: No Past Medical History Surgeries: Yes Abdominal, Hysterectomy, Nephrectomy, Tonsillectomy, Tubal Ligation Respiratory: Yes Asthma Currently Using CPAP: No Currently Using BIPAP: No Cardiac: No Hypertension Neurological: No 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 has multiple lesions on her abd and under the folds.) Blood Disorders: No Adverse Reaction/Blood Tranf: No Physical Exam Vital Signs Vital Signs - First Documented 11/06/18 18:09 Temp 98.7 Pulse 86 Resp 20 B/P (MAP) 98/57 (71) Pulse Ox 97 O2 Delivery Room Air Capillary Refill : Less Than 3 Seconds Height, Weight, BMI Height: 5'7.00" Weight: 226lbs. 0oz. 102.560908ge; BMI Method:Stated General Appearance: Other (obese, mildly ill appearing, recurrent coughing. ) HEENT: PERRL/EOMI Neck: Normal Inspection, Non Tender Respiratory: Chest Non Tender, Other (Decreased breath sounds in R base ) Cardiovascular: Regular Rate, Rhythm, No Edema, No Murmur, Normal Peripheral Pulses Gastrointestinal: Normal Bowel Sounds, No Organomegaly, No Pulsatile Mass, Non Tender Extremity: Normal Capillary Refill, Normal Inspection, Normal Range of Motion, Non Tender Neurologic/Psychiatric: Alert, Oriented x3, No Motor/Sensory Deficits Skin: Normal Color, Warm/Dry Focused Exam Lactate Level 11/06/18 18:55: Lactic Acid Level 1.19 Lactic Acid Level Laboratory Tests Test 11/06/18 18:55 Lactic Acid Level 1.19 MMOL/L (0.50-2.00) Progress/Results/Core Measures Results/Orders Lab Results Laboratory Tests Test 11/06/18 18:25 11/06/18 18:55 11/06/18 21:05 Range/Units White Blood Count 9.3 4.3-11.0 10^3/uL Red Blood Count 2.68 L 4.35-5.85 10^6/uL Hemoglobin 7.3 L 11.5-16.0 G/DL Hematocrit 23 L 35-52 % Mean Corpuscular Volume 86 80-99 FL Mean Corpuscular Hemoglobin 27 25-34 PG Mean Corpuscular Hemoglobin Concent 32 32-36 G/DL Red Cell Distribution Width 22.3 H 10.0-14.5 % Platelet Count 138 130-400 10^3/uL Mean Platelet Volume 11.3 H 7.4-10.4 FL Neutrophils (%) (Auto) 67 42-75 % Lymphocytes (%) (Auto) 20 12-44 % Monocytes (%) (Auto) 11 0-12 % Eosinophils (%) (Auto) 0 0-10 % Basophils (%) (Auto) 1 0-10 % Neutrophils # (Auto) 6.2 1.8-7.8 X 10^3 Lymphocytes # (Auto) 1.9 1.0-4.0 X 10^3 Monocytes # (Auto) 1.0 0.0-1.0 X 10^3 Eosinophils # (Auto) 0.0 0.0-0.3 10^3/uL Basophils # (Auto) 0.1 0.0-0.1 10^3/uL Neutrophils % (Manual) 72 % Lymphocytes % (Manual) 19 % Monocytes % (Manual) 4 % Eosinophils % (Manual) 1 % Basophils % (Manual) 1 % Band Neutrophils 3 % Dohle Bodies SLIGHT Anisocytosis SLIGHT Microcytosis SLIGHT Sodium Level 128 L 135-145 MMOL/L Potassium Level 4.0 3.6-5.0 MMOL/L Chloride Level 92 L 98-107 MMOL/L Carbon Dioxide Level 26 21-32 MMOL/L Anion Gap 10 5-14 MMOL/L Blood Urea Nitrogen 14 7-18 MG/DL Creatinine 1.60 H 0.60-1.30 MG/DL Estimat Glomerular Filtration Rate 34 BUN/Creatinine Ratio 9 Glucose Level 420 *H 70-105 MG/DL Calcium Level 8.8 8.5-10.1 MG/DL Corrected Calcium 9.4 8.5-10.1 MG/DL Total Bilirubin 0.3 0.1-1.0 MG/DL Aspartate Amino Transf (AST/SGOT) 6 5-34 U/L Alanine Aminotransferase (ALT/SGPT) 11 0-55 U/L Alkaline Phosphatase 146 H 40-136 U/L Troponin T 11 H <=10 NG/L Total Protein 7.0 6.4-8.2 GM/DL Albumin 3.3 3.2-4.5 GM/DL Lactic Acid Level 1.19 0.50-2.00 MMOL/L Glucometer 418 *H 70-110 MG/DL Micro Results Microbiology 11/06/18 Influenza Types A,B Antigen (KARINA) - Final, Complete My Orders Orders - JAME CULVER DO Continuous Ekg Monitoring (11/06/18 18:45) Chest 1 View Ap/Pa Only (11/06/18 18:45) Ns Iv 1000 Ml (Sodium Chloride 0.9%) (11/06/18 18:45) Blood Culture (11/06/18 18:56) Comprehensive Metabolic Panel (11/06/18 18:57) Troponin T (11/06/18 18:57) Lactic Acid Analyzer (11/06/18 18:57) Cbc And Manual Diff (11/06/18 18:57) Blood Culture (11/06/18 18:57) Influenza A And B Antigens (11/06/18 18:57) Ns Iv 1000 Ml (Sodium Chloride 0.9%) (11/06/18 20:15) Piperacillin/Tazobactam (Bulk) (Zosyn In (11/06/18 20:45) Piperacillin Sodium/Tazobactam (Zosyn Vi (11/06/18 20:52) Ns (Ivpb) (Sodium Chloride 0.9% Ivpb Bag (11/06/18 20:52) Insulin Determir (Per Unit) (Levemir (Pe (11/06/18 23:02) Insulin Aspart (Novolog) (Novolog (Charg (11/06/18 23:02) Medications Given in ED Current Medications Medications Dose Ordered Sig/Yoselyn Route Start Time Stop Time Status Last Admin Dose Admin Insulin Aspart 1 unit STK-MED ONCE .ROUTE 11/06/18 23:02 11/06/18 23:12 DC 11/06/18 23:02 1 UNIT Insulin Detemir 1 unit STK-MED ONCE SQ 11/06/18 23:02 11/06/18 23:12 DC 11/06/18 23:02 1 UNIT Piperacillin Sod/ Tazobactam Sod 4.5 gm/Sodium Chloride 120 ml @ 240 mls/hr ONCE ONCE IV 11/06/18 20:45 11/06/18 21:25 DC 11/06/18 20:55 240 MLS/HR Vital Signs/I&O 11/06/18 18:09 Temp 98.7 Pulse 86 Resp 20 B/P (MAP) 98/57 (71) Pulse Ox 97 O2 Delivery Room Air 11/07/18 00:00 Intake Total 2120 ml Balance 2120 ml Blood Pressure Mean: 71 Progress Progress Note : Time: 23:00 Progress Note Pt presented to the ED with failed outpt management of pneumonia. She is immunocompromised 2/2 v2zqdymb chemotherapy. She was hypotensive with persistent BPs in the 80s. She was resuscitated with fluids. She did not require any supplemental O2. She was significantly hyperglycemic. She required hospitalization. After 1.5 L her BP had improved to the 90s systolic. Case was discussed with Dr. Sultana, continuous drier operator at [facility] in [place]. She accepted the pt. There was significant delay in transfer 2/2 high acuity ED with multiple pts requiring transfer and waiting for the EMS crew. Continued care was provided while she was here. She was given a total of 2 L of fluid with improvement of systolic BPs to 100s while supine. She was anemic but with history of cancer ?chronic disease anemia. She denied any history of GI bleed symptoms and is not on an OAC. She had clear source of CXR that correlated with exam. Her ABX coverage was broadened to Zosyn. Her hyperglycemia was minimally responsive to fluid resuscitation and she was given Insulin. She was improved at time of transfer. Initial ECG Impression Date: Nov 06, 2018 Initial ECG Impression Time: 18:00 Comment NSR, HR 85, no acute ST segment changes. Diagnostic Imaging Comments RLL infiltrate on CXR Reviewed: Reviewed Night [facility] Study Departure Communication (Admissions) Time/Spoke to Admitting Phy: 22:00 Impression Primary Impression: Anemia, chronic disease Additional Impressions: Pneumonia Hypotension Immunosuppression Disposition: XF SHT-TRM HOSP Condition: Stable Admissions Decision to Admit Reason: Admit from ER (General) Decision to Admit/Date: Nov 06, 2018 Time/Decision to Admit Time: 22:00 Transfer Time Spoke to Accepting Phy: 21:00 Transfer Time: 01:00 Departure-Patient Inst. Referrals: NO,LOCAL PHYSICIAN (PCP/Family) Primary Care Physician JAME CULVER DO Nov 07, 2018 04:58
== END 2018-11-07 01:30 | disposition short-term general hospital (02) ==
LOC: EDUNIT# 17:39 → ER FS 17:40
DX: D63.8 Anemia in other chronic diseases classified elsewhere (principal); J18.9 Pneumonia, unspecified organism; I95.9 Hypotension, unspecified; D89.9 Disorder involving the immune mechanism, unspecified; C66.9 Malignant neoplasm of unspecified ureter; E11.9 Type 2 diabetes mellitus without complications; J45.909 Unspecified asthma, uncomplicated; I10 Essential (primary) hypertension; F12.10 Cannabis abuse, uncomplicated; F17.210 Nicotine dependence, cigarettes, uncomplicated; Z87.440 Personal history of urinary (tract) infections; Z87.442 Personal history of urinary calculi; Z90.710 Acquired absence of both cervix and uterus; Z90.6 Acquired absence of other parts of urinary tract; Z98.51 Tubal ligation status; Z90.89 Acquired absence of other organs; Z90.5 Acquired absence of kidney; Z92.21 Personal history of antineoplastic chemotherapy
CPT/HCPCS: 36415; 71045; 80053; 82962; 83605; 84484; 85007; 85027; 87040; 87804; 96361; 96365; 96372

== ENCOUNTER 2018-11-14 21:42 | Emergency (ER) | payer MEDICARE, MEDICAID ==
[~2018-11-14] VITALS: Ht 170.2 cm; Wt 101.2 kg
--- OUTSIDE RECORDS SUMMARY | 2018-11-14 21:48 | XMS REPORT | Clinical Summary ---
Author Author Admin, E Organization [facility] Address Unknown Phone Unavailable Allergies, Adverse Reactions, [...] MG ORAL TABLET 1 tab BID SULFAMETHOXAZOLE-TRIMETHOPRIM 96491929446 No Longer Active Hardeep Barker MD Active LEVEMIR FLEXTOUCH 100 UNIT/ML SUBCUTANEOUS SOLUTION PEN-INJECTOR 100 units twice daily INSULIN DETEMIR 64079283700 Active Hardeep Barker MD Active NOVOLOG PENFILL 100 UNIT/ML SUBCUTANEOUS SOLUTION CARTRIDGE 50 units twice daily INSULIN ASPART 12516159289 Active Hardeep Barker MD Active GEODON 80 MG ORAL CAPSULE 2 cap at Bedtime ZIPRASIDONE HCL 16820118171 Active Hardeep Barker MD Active MECLIZINE HCL 12.5 MG ORAL TABLET MECLIZINE HCL 24379201488 No Longer Active Hardeep Barker MD Active LEVAQUIN 500 MG ORAL TABLET 1 tab twice daily LEVOFLOXACIN 77994379226 No Longer Active Halle Sahni MD Active DIFLUCAN 150 MG ORAL TABLET FLUCONAZOLE 03684213614 No Longer Active Halle Sahni MD Active LIPITOR 10 MG ORAL TABLET 1 tab by mouth daily ATORVASTATIN CALCIUM 90492647618 Active Halle Sahni MD Active BYSTOLIC 5 MG ORAL TABLET 1 tab by mouth daily NEBIVOLOL HCL 22553083821 Active Halle Sahni MD Active TRADJENTA 5 MG ORAL TABLET 1 tab by mouth daily LINAGLIPTIN 71150462656 Active Halle Sahni MD Active LISINOPRIL 5 MG ORAL TABLET 1 po qd LISINOPRIL 23110055975 Active Halle Sahni MD Active LEXAPRO 10 MG ORAL TABLET 1 tablet by mouth daily ESCITALOPRAM OXALATE 00637778642 Active Halle Sahni MD Active METFORMIN HCL 500 MG ORAL TABLET 1 tablet by mouth three times daily METFORMIN HCL 76234742181 Active Halle Sahni MD Active DIFLUCAN 150 MG ORAL TABLET DIFLUCAN 150 MG ORAL TABLET 986191 FLUCONAZOLE Inactive LEVAQUIN 500 MG ORAL TABLET 1 tab twice daily LEVAQUIN 500 MG ORAL TABLET 978852 LEVOFLOXACIN Inactive MECLIZINE HCL 12.5 MG ORAL TABLET MECLIZINE HCL 12.5 MG ORAL TABLET 850379 MECLIZINE HCL Inactive BACTRIM DS 800-160 MG ORAL TABLET 1 tab BID BACTRIM DS 800-160 MG ORAL TABLET 698419 SULFAMETHOXAZOLE-TRIMETHOPRIM Inactive Advance Directives Directive Description Start [...] Results Date Name Value Unit Range Description Lab Report: Thyroid Stimulating Hormone (L) - Chemistry TSH 1.55 m[iU]/mL 0.36-3.74 Office Visit: CN-hematuria - Chemistry RBC, urine, [...] negative Encounters Code Encounter Date Provider Facility CPT-15642 Level 3 Est. Patient 15:50:26 CDT Halle Sahni MD [facility] CPT-39748 Level 3 Est. Patient 11:10:51 CARRIER DRIVER Hardeep Barker MD [facility] CPT-46466 Level 4 New Patient 16:02:27 CARRIER DRIVER Hardeep Barker MD [facility] CPT-90706 Level 4 Est. Patient 13:31:38 CARRIER DRIVER Halle Sahni MD [facility] CPT-33419 Level 3 Est. Patient 14:10:08 CARRIER DRIVER Halle Sahni MD [facility] [place] CPT-74747 Level 3 Est. Patient 10:01:09 CDT Halle Sahni MD [facility] CPT-82553 Level 4 New Patient 16:33:13 CDT Halle Sahni [facility] Procedures Code Procedure Name Date Entry Date Standard Description CPT-79077 Cystoscopy 15:50:27 CDT CPT-56189 Postop F/U Visit 15:34:52 CARRIER DRIVER CPT-32098 I/D hematoma seroma fld gauri 11:10:51 CARRIER DRIVER CPT-84790 Postop F/U Visit 15:20:53 CARRIER DRIVER CPT-54561 Postop F/U Visit 13:46:08 CARRIER DRIVER
--- OUTSIDE RECORDS SUMMARY | 2018-11-14 21:57 | XMS REPORT | Continuity of Care Document ---
Demographics Preferred Language Unknown Marital Status Unknown Taoist Affiliation Unknown Race Unknown Ethnic Group Unknown Author Organization Unknown Address Unknown Allergies There is no data. Medications There is no data. Problems Date Dx Coded Attending Type Code Diagnosis Diagnosed By 07/05/2010 [facility] SENIOR BUSINESS ANALYST, HEATHER 278.01 OBESITY MORBID 07/05/2010 [facility] SENIOR BUSINESS ANALYST, HEATHER 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, Unspecified 07/05/2010 [facility] SENIOR BUSINESS ANALYST, HEATHER V15.82 TOBACCOISM 07/05/2010 [facility] SENIOR BUSINESS ANALYST, HEATHER 278.01 OBESITY MORBID 07/05/2010 [facility] SENIOR BUSINESS ANALYST, HEATHER 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, Unspecified 07/05/2010 [facility] SENIOR BUSINESS ANALYST, HEATHER V15.82 TOBACCOISM 07/05/2010 [facility] SENIOR BUSINESS ANALYST, HEATHER 278.01 OBESITY MORBID 07/05/2010 [facility] SENIOR BUSINESS ANALYST, HEATHER 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, Unspecified 07/05/2010 [facility] SENIOR BUSINESS ANALYST, HEATHER V15.82 TOBACCOISM 07/05/2010 [facility] SENIOR BUSINESS ANALYST, HEAHTER 278.01 OBESITY MORBID 07/05/2010 [facility] SENIOR BUSINESS ANALYST, HEATHER 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, Unspecified 07/05/2010 [facility] SENIOR BUSINESS ANALYST, HEATHER V15.82 TOBACCOISM 07/05/2010 [facility] SENIOR BUSINESS ANALYST, HEATHER 278.01 OBESITY MORBID 07/05/2010 [facility] SENIOR BUSINESS ANALYST, HEATHER 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, Unspecified 07/05/2010 [facility] SENIOR BUSINESS ANALYST, HEATHER V15.82 TOBACCOISM 07/05/2010 [facility] SENIOR BUSINESS ANALYST, HEATHER 278.01 OBESITY MORBID 07/05/2010 [facility] SENIOR BUSINESS ANALYST, HEATHER 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, Unspecified 07/05/2010 [facility] SENIOR BUSINESS ANALYST, HEATHER V15.82 TOBACCOISM 07/05/2010 [facility] SENIOR BUSINESS ANALYST, HEATHER 278.01 OBESITY MORBID 07/05/2010 [facility] SENIOR BUSINESS ANALYST, HEATHER 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, Unspecified 07/05/2010 [facility] SENIOR BUSINESS ANALYST, HEATHER V15.82 TOBACCOISM 07/05/2010 [facility] SENIOR BUSINESS ANALYST, MARIANNA 278.01 OBESITY MORBID 07/05/2010 [facility] SENIOR BUSINESS ANALYST, MARIANNA 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, Unspecified 07/05/2010 [facility] SENIOR BUSINESS ANALYST, MARIANNA V15.82 TOBACCOISM 07/05/2010 [facility] SENIOR BUSINESS ANALYST, MARIANNA 278.01 OBESITY MORBID 07/05/2010 [facility] SENIOR BUSINESS ANALYST, MARIANNA 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, Unspecified 07/05/2010 [facility] SENIOR BUSINESS ANALYST, MARIANNA V15.82 TOBACCOISM 07/07/2010 [facility] SENIOR BUSINESS ANALYST, HEATHER 280.9 Anemia Hypochromic / Microcytic 07/07/2010 [facility] SENIOR BUSINESS ANALYST, HEATHER 796.2 Prehypertension 07/07/2010 [facility] SENIOR BUSINESS ANALYST, HEATHER V04.81 Influenza Vaccine 07/07/2010 [facility] SENIOR BUSINESS ANALYST, HEATHER V68.89 Encounters For Other Specified Administrative Purpose 07/07/2010 [facility] SENIOR BUSINESS ANALYST, HEATHER V72.31 Routine Pelvic Exam 07/07/2010 [facility] SENIOR BUSINESS ANALYST, HEATHER 280.9 Anemia Hypochromic / Microcytic 07/07/2010 [facility] SENIOR BUSINESS ANALYST, HEATHER 796.2 Prehypertension 07/07/2010 [facility] SENIOR BUSINESS ANALYST, HEATHER V04.81 Influenza Vaccine 07/07/2010 [facility] SENIOR BUSINESS ANALYST, HEATHER V68.89 Encounters For Other Specified Administrative Purpose 07/07/2010 [facility] SENIOR BUSINESS ANALYST, HEATHER V72.31 Routine Pelvic Exam 07/07/2010 [facility] SENIOR BUSINESS ANALYST, HEATHER 280.9 Anemia Hypochromic / Microcytic 07/07/2010 [facility] SENIOR BUSINESS ANALYST, HEATHER 796.2 Prehypertension 07/07/2010 [facility] SENIOR BUSINESS ANALYST, HEATHER V04.81 Influenza Vaccine 07/07/2010 [facility] SENIOR BUSINESS ANALYST, HEATHER V68.89 Encounters For Other Specified Administrative Purpose 07/07/2010 [facility] SENIOR BUSINESS ANALYST, HEATHER V72.31 Routine Pelvic Exam 07/07/2010 [facility] SENIOR BUSINESS ANALYST, HEATHER 280.9 Anemia Hypochromic / Microcytic 07/07/2010 [facility] SENIOR BUSINESS ANALYST, HEATHER 796.2 Prehypertension 07/07/2010 [facility] SENIOR BUSINESS ANALYST, HEATHER V04.81 Influenza Vaccine 07/07/2010 [facility] SENIOR BUSINESS ANALYST, HEATHER V68.89 Encounters For Other Specified Administrative Purpose 07/07/2010 [facility] SENIOR BUSINESS ANALYST, HEATHER V72.31 Routine Pelvic Exam 07/07/2010 [facility] SENIOR BUSINESS ANALYST, HEATHER 280.9 Anemia Hypochromic / Microcytic 07/07/2010 [facility] SENIOR BUSINESS ANALYST, HEATHER 796.2 Prehypertension 07/07/2010 [facility] SENIOR BUSINESS ANALYST, HEATHER V04.81 Influenza Vaccine 07/07/2010 [facility] SENIOR BUSINESS ANALYST, HEATHER V68.89 Encounters For Other Specified Administrative Purpose 07/07/2010 [facility] SENIOR BUSINESS ANALYST, HEATHER V72.31 Routine Pelvic Exam 07/07/2010 [facility] SENIOR BUSINESS ANALYST, HEATHER 280.9 Anemia Hypochromic / Microcytic 07/07/2010 [facility] SENIOR BUSINESS ANALYST, HEATHER 796.2 Prehypertension 07/07/2010 [facility] SENIOR BUSINESS ANALYST, HEATHER V04.81 Influenza Vaccine 07/07/2010 [facility] SENIOR BUSINESS ANALYST, HEATHER V68.89 Encounters For Other Specified Administrative Purpose 07/07/2010 [facility] SENIOR BUSINESS ANALYST, HEATHER V72.31 Routine Pelvic Exam 07/07/2010 [facility] SENIOR BUSINESS ANALYST, HEATHER 280.9 Anemia Hypochromic / Microcytic 07/07/2010 [facility] SENIOR BUSINESS ANALYST, HEATHER 796.2 Prehypertension 07/07/2010 [facility] SENIOR BUSINESS ANALYST, HEATHER V04.81 Influenza Vaccine 07/07/2010 [facility] SENIOR BUSINESS ANALYST, HEATHER V68.89 Encounters For Other Specified Administrative Purpose 07/07/2010 [facility] SENIOR BUSINESS ANALYST, HEATHER V72.31 Routine Pelvic Exam 07/07/2010 [facility] SENIOR BUSINESS ANALYSTENE 280.9 Anemia Hypochromic / Microcytic 07/07/2010 [facility] SENIOR BUSINESS ANALYST, MARIANNA 796.2 Prehypertension 07/07/2010 [facility] SENIOR BUSINESS ANALYST, MARIANNA V04.81 Influenza Vaccine 07/07/2010 [facility] SENIOR BUSINESS ANALYST, MARIANNA V68.89 Encounters For Other Specified Administrative Purpose 07/07/2010 [facility] SENIOR BUSINESS ANALYST, MARIANNA V72.31 Routine Pelvic Exam 07/07/2010 [facility] SENIOR BUSINESS ANALYST, MARIANNA 280.9 Anemia Hypochromic / Microcytic 07/07/2010 [facility] SENIOR BUSINESS ANALYST, MARIANNA 796.2 Prehypertension 07/07/2010 MARIANNA FAUST APRN V04.81 Influenza Vaccine 07/07/2010 MARIANNA FAUST APRN V68.89 Encounters For Other Specified Administrative Purpose 07/07/2010 MARIANNA FAUST APRN V72.31 Routine Pelvic Exam 10/20/2010 [facility] SENIOR BUSINESS ANALYST, HEATHER 112.1 Candidiasis, Of Vulva And Vagina 10/20/2010 [facility] SENIOR BUSINESS ANALYST, HEATHER 599.0 Uti 10/20/2010 [facility] SENIOR BUSINESS ANALYST, HEATHER 112.1 Candidiasis, Of Vulva And Vagina 10/20/2010 [facility] SENIOR BUSINESS ANALYST, HEATHER 599.0 Uti 10/20/2010 [facility] SENIOR BUSINESS ANALYST, HEATHER 112.1 Candidiasis, Of Vulva And Vagina 10/20/2010 [facility] SENIOR BUSINESS ANALYST, HEATHER 599.0 Uti 10/20/2010 [facility] SENIOR BUSINESS ANALYST, HEATHER 112.1 Candidiasis, Of Vulva And Vagina 10/20/2010 [facility] SENIOR BUSINESS ANALYST, HETAHER 599.0 Uti 10/20/2010 [facility] SENIOR BUSINESS ANALYST, HEATHER 112.1 Candidiasis, Of Vulva And Vagina 10/20/2010 [facility] SENIOR BUSINESS ANALYST, HEATHER 599.0 Uti 10/20/2010 [facility] SENIOR BUSINESS ANALYST, HEATHER 112.1 Candidiasis, Of Vulva And Vagina 10/20/2010 [facility] SENIOR BUSINESS ANALYST, HEATHER 599.0 Uti 10/20/2010 [facility] SENIOR BUSINESS ANALYST, HEATHER 112.1 Candidiasis, Of Vulva And Vagina 10/20/2010 [facility] SENIOR BUSINESS ANALYST, HEATHER 599.0 Uti 10/20/2010 [facility] SENIOR BUSINESS ANALYST, MARIANNA 112.1 Candidiasis, Of Vulva And Vagina 10/20/2010 [facility] SENIOR BUSINESS ANALYST, MARIANNA 599.0 Uti 10/20/2010 [facility] SENIOR BUSINESS ANALYST, MARIANNA 112.1 Candidiasis, Of Vulva And Vagina 10/20/2010 [facility] SENIOR BUSINESS ANALYST, MARIANNA 599.0 Uti 10/24/2010 [facility] SENIOR BUSINESS ANALYST, HEATHER 250.00 DIABETES MELLITUS TYPE 2 10/24/2010 [facility] SENIOR BUSINESS ANALYST, HEATHER 466.0 Bronchitis, Acute 10/24/2010 [facility] SENIOR BUSINESS ANALYST, HEATHER 496 PULMONARY OBSTRUCTIVE DISORDERS 10/24/2010 [facility] SENIOR BUSINESS ANALYST, HEATHER 250.00 DIABETES MELLITUS TYPE 2 10/24/2010 [facility] SENIOR BUSINESS ANALYST, HEATHER 466.0 Bronchitis, Acute 10/24/2010 [facility] SENIOR BUSINESS ANALYST, HEATHER 496 PULMONARY OBSTRUCTIVE DISORDERS 10/24/2010 [facility]ENIOR BUSINESS ANALYST, HEATHER 250.00 DIABETES MELLITUS TYPE 2 10/24/2010 [facility] SENIOR BUSINESS ANALYST, HEATHER 466.0 Bronchitis, Acute 10/24/2010 [facility] SENIOR BUSINESS ANALYST, HEATHER 496 PULMONARY OBSTRUCTIVE DISORDERS 10/24/2010 [facility]ENIOR BUSINESS ANALYST, HEATHER 250.00 DIABETES MELLITUS TYPE 2 10/24/2010 [facility] SENIOR BUSINESS ANALYST, HEATHER 466.0 Bronchitis, Acute 10/24/2010 [facility]ENIOR BUSINESS ANALYST, HEATHER 496 PULMONARY OBSTRUCTIVE DISORDERS 10/24/2010 [facility]ENIOR BUSINESS ANALYST, HEATHER 250.00 DIABETES MELLITUS TYPE 2 10/24/2010 [facility]ENIOR BUSINESS ANALYST, HEATHER 466.0 Bronchitis, Acute 10/24/2010 [facility]ENIOR BUSINESS ANALYST, HEATHER 496 PULMONARY OBSTRUCTIVE DISORDERS 10/24/2010 [facility]ENIOR BUSINESS ANALYST, HEATHER 250.00 DIABETES MELLITUS TYPE 2 10/24/2010 [facility]ENIOR BUSINESS ANALYST, HEATHER 466.0 Bronchitis, Acute 10/24/2010 [facility]ENIOR BUSINESS ANALYST, HEATHER 496 PULMONARY OBSTRUCTIVE DISORDERS 10/24/2010 [facility]EN[facility] ANALYST, HEATHER 250.00 DIABETES MELLITUS TYPE 2 10/24/2010 [facility]ENIOR BUSINESS ANALYST, HEATHER 466.0 Bronchitis, Acute 10/24/2010 [facility]ENIOR BUSINESS ANALYST, HEATHER 496 PULMONARY OBSTRUCTIVE DISORDERS 10/24/2010 [facility]ENIOR BUSINESS ANALYST, MARIANNA 250.00 DIABETES MELLITUS TYPE 2 10/24/2010 [facility] SENIOR BUSINESS ANALYST, MARIANNA 466.0 Bronchitis, Acute 10/24/2010 [facility] SENIOR BUSINESS ANALYST, MARIANNA 496 PULMONARY OBSTRUCTIVE DISORDERS 10/24/2010 [facility] SENIOR BUSINESS ANALYST, MARIANNA 250.00 DIABETES MELLITUS TYPE 2 10/24/2010 [facility] SENIOR BUSINESS ANALYST, MARIANNA 466.0 Bronchitis, Acute 10/24/2010 [facility] SENIOR BUSINESS ANALYST, MARIANNA 496 PULMONARY OBSTRUCTIVE DISORDERS 05/12/2011 [facility]ENIOR BUSINESS ANALYST, HEATHER 703.0 Ingrowing Nail 05/12/2011 [facility] SENIOR BUSINESS ANALYST, HEATHER 726.91 EXOSTOSIS OF UNSPECIFIED SITE 05/12/2011 [facility] SENIOR BUSINESS ANALYST, HEATHER 703.0 Ingrowing Nail 05/12/2011 [facility]IOR BUSINESS ANALYST, HEATHER 726.91 EXOSTOSIS OF UNSPECIFIED SITE 05/12/2011 [facility]ENIOR BUSINESS ANALYST, HEATHER 703.0 Ingrowing Nail 05/12/2011 [facility]ENIOR BUSINESS ANALYST, HEATHER 726.91 EXOSTOSIS OF UNSPECIFIED SITE 05/12/2011 [facility]ENIOR [facility] ANALYST, HEATHER 703.0 Ingrowing Nail 05/12/2011 [facility] ANALYST, HEATHER 726.91 EXOSTOSIS OF UNSPECIFIED SITE 05/12/2011 [facility] ANALYST, HEATHER 703.0 Ingrowing Nail 05/12/2011 [facility] ANALYST, HEATHER 726.91 EXOSTOSIS OF UNSPECIFIED SITE 05/12/2011 [facility] ANALYST, HEATHER 703.0 Ingrowing Nail 05/12/2011 [facility] ANALYST, HEATHER 726.91 EXOSTOSIS OF UNSPECIFIED SITE 05/12/2011 [facility] SENIOR BUSINESS ANALYST, HEATHER 703.0 Ingrowing Nail 05/12/2011 [facility]ENIOR BUSINESS ANALYST, HEATHER 726.91 EXOSTOSIS OF UNSPECIFIED SITE 05/12/2011 [facility] SENIOR BUSINESS ANALYST, MARIANNA 703.0 Ingrowing Nail 05/12/2011 [facility] SENIOR BUSINESS ANALYST, MARIANNA 726.91 EXOSTOSIS OF UNSPECIFIED SITE 05/12/2011 [facility] SENIOR BUSINESS ANALYST, MARIANNA 703.0 Ingrowing Nail 05/12/2011 [facility] SENIOR BUSINESS ANALYST, MARIANNA 726.91 EXOSTOSIS OF UNSPECIFIED SITE 06/02/2011 [facility] SENIOR BUSINESS ANALYST, HEATHER 078.12 Plantar Wart 06/02/2011 [facility] ANALYST, HEATHER 078.12 Plantar Wart 06/02/2011 [facility]ENIOR BUSINESS ANALYST, HEATHER 078.12 Plantar Wart 06/02/2011 [facility]ENIOR BUSINESS ANALYST, HEATHER 078.12 Plantar Wart 06/02/2011 [facility]ENIOR [facility] ANALYST, HEATHER 078.12 Plantar Wart 06/02/2011 [facility] ANALYST, HEATHER 078.12 Plantar Wart 06/02/2011 [facility]ENIOR [facility] ANALYST, HEATHER 078.12 Plantar Wart 06/02/2011 [facility]ENIOR BUSINESS ANALYST, MARIANNA 078.12 Plantar Wart 06/02/2011 [facility] SENIOR BUSINESS ANALYST, MARIANNA 078.12 Plantar Wart 07/05/2011 [facility]ENIOR BUSINESS ANALYST, HEATHER 466.0 ACUTE BRONCHITIS 07/05/2011 [facility]ENIOR BUSINESS ANALYST, HEATHER 466.0 ACUTE BRONCHITIS 07/05/2011 [facility]ENIOR BUSINESS ANALYST, HEATHER 466.0 ACUTE BRONCHITIS 07/05/2011 [facility]IOR [facility] ANALYST, HEATHER 466.0 ACUTE BRONCHITIS 07/05/2011 [facility]IOR [facility] ANALYST, HEATHER 466.0 ACUTE BRONCHITIS 07/05/2011 [facility]IOR BUSINESS ANALYST, HEATHER 466.0 ACUTE BRONCHITIS 07/05/2011 [facility]IOR BUSINESS ANALYST, HEATHER 466.0 ACUTE BRONCHITIS 07/05/2011 [facility]ENIOR BUSINESS ANALYST, MARIANNA 466.0 ACUTE BRONCHITIS 07/05/2011 [facility] SENIOR BUSINESS ANALYST, MARIANNA 466.0 ACUTE BRONCHITIS 11/20/2011 [facility]ENIOR BUSINESS ANALYST, HEATHER 682.9 CELLULITIS 11/20/2011 [facility]ENIOR BUSINESS ANALYST, HEATHER 682.9 CELLULITIS 11/20/2011 [facility]IOR [facility] ANALYST, HEATHER 682.9 CELLULITIS 11/20/2011 [facility]IOR [facility] ANALYST, HEATHER 682.9 CELLULITIS 11/20/2011 [facility]ENIOR [facility] ANALYST, HEATHER 682.9 CELLULITIS 11/20/2011 [facility]ENIOR [facility] ANALYST, HEATHER 682.9 CELLULITIS 11/20/2011 [facility] ANALYST, HEATHER 682.9 CELLULITIS 11/20/2011 [facility]ENIOR BUSINESS ANALYST, MARIANNA 682.9 CELLULITIS 11/20/2011 [facility] SENIOR BUSINESS ANALYST, MARIANNA 682.9 CELLULITIS 12/22/2011 [facility] ANALYST, HEATHER 401.1 ESSENTIAL HYPERTENSION BENIGN 12/22/2011 [facility] ANALYST, HEATHER 401.1 ESSENTIAL HYPERTENSION BENIGN 12/22/2011 [facility] ANALYST, HEATHER 401.1 ESSENTIAL HYPERTENSION BENIGN 12/22/2011 [facility] ANALYST, HEATHER 401.1 ESSENTIAL HYPERTENSION BENIGN 12/22/2011 [facility] ANALYST, HEATHER 401.1 ESSENTIAL HYPERTENSION BENIGN 12/22/2011 [facility] ANALYST, HEATHER 401.1 ESSENTIAL HYPERTENSION BENIGN 12/22/2011 [facility]IOR BUSINESS ANALYST, HEATHER 401.1 ESSENTIAL HYPERTENSION BENIGN 12/22/2011 [facility] ULLOAMARIANNA Sunshine 401.1 ESSENTIAL HYPERTENSION BENIGN 12/22/2011 [facility] MARIANNA WRIGHT 401.1 ESSENTIAL HYPERTENSION BENIGN 04/09/2012 [facility] SENIOR BUSINESS ANALYST, HEATHER 272.2 HYPERLIPIDEMIA 04/09/2012 [facility] SENIOR BUSINESS ANALYST, HEATHER V04.81 Need For Prophylactic Vaccination And Inoculation Against Influenza 04/09/2012 [facility] SENIOR BUSINESS ANALYSTHEATHER 272.2 HYPERLIPIDEMIA 04/09/2012 [facility] SENIOR BUSINESS ANALYST HEATHER V04.81 Need For Prophylactic Vaccination And Inoculation Against Influenza 04/09/2012 [facility] SENIOR BUSINESS ANALYSTHEATHER Sunshine 272.2 HYPERLIPIDEMIA 04/09/2012 [facility] SENIOR BUSINESS ANALYST, HEATHER V04.81 Need For Prophylactic Vaccination And Inoculation Against Influenza 04/09/2012 [facility] SENIOR BUSINESS ANALYSTHEATHER Sunshine 272.2 HYPERLIPIDEMIA 04/09/2012 [facility] SENIOR BUSINESS ANALYSTHEATHER Sunshine V04.81 Need For Prophylactic Vaccination And Inoculation Against Influenza 04/09/2012 [facility] SENIOR BUSINESS ANALYSTHEATHER Sunshine 272.2 HYPERLIPIDEMIA 04/09/2012 [facility] SENIOR BUSINESS ANALYST, HEATHER V04.81 Need For Prophylactic Vaccination And Inoculation Against Influenza 04/09/2012 [facility] SENIOR BUSINESS ANALYSTHEATHER Sunshine 272.2 HYPERLIPIDEMIA 04/09/2012 [facility] SENIOR BUSINESS ANALYST, HEATHER V04.81 Need For Prophylactic Vaccination And Inoculation Against Influenza 04/09/2012 [facility] SENIOR BUSINESS ANALYSTHEATHER Sunshine 272.2 HYPERLIPIDEMIA 04/09/2012 [facility] SENIOR BUSINESS ANALYST, HEATHER V04.81 Need For Prophylactic Vaccination And Inoculation Against Influenza 04/09/2012 [facility] MARIANNA WRIGHT 272.2 HYPERLIPIDEMIA 04/09/2012 [facility] MARIANNA WRIGHT V04.81 Need For Prophylactic Vaccination And Inoculation Against Influenza 04/09/2012 [facility] MARIANNA WRIGHT 272.2 HYPERLIPIDEMIA 04/09/2012 [facility] MARIANNA WRIGHT V04.81 Need For Prophylactic Vaccination And Inoculation Against Influenza 05/14/2012 [facility] HEATHER WRIGHT 682.9 Cellulitis/abscess 05/14/2012 [facility] HEATHER WRIGHT 682.9 Cellulitis/abscess 05/14/2012 [facility] HEATHER WRIGHT 682.9 Cellulitis/abscess 05/14/2012 [facility] SENIOR BUSINESS ANALYST, HEATHER 682.9 Cellulitis/abscess 05/14/2012 [facility]ENIOR BUSINESS ANALYST, HEATHER 682.9 Cellulitis/abscess 05/14/2012 [facility]IOR BUSINESS ANALYST, HEATHER 682.9 Cellulitis/abscess 05/14/2012 [facility]IOR [facility] ANALYST, HEATHER 682.9 Cellulitis/abscess 05/14/2012 [facility] SENIOR BUSINESS ANALYST, MARIANNA 682.9 Cellulitis/abscess 05/14/2012 [facility] SENIOR BUSINESS ANALYST, MARIANNA 682.9 Cellulitis/abscess 06/24/2012 [facility]ENIOR BUSINESS ANALYST, HEATHER 112.1 Candidiasis, Of Vulva And Vagina 06/24/2012 [facility]ENIOR BUSINESS ANALYST, HEATHER 112.1 Candidiasis, Of Vulva And Vagina 06/24/2012 [facility]ENIOR BUSINESS ANALYST, HEATHER 112.1 Candidiasis, Of Vulva And Vagina 06/24/2012 [facility]ENIOR BUSINESS ANALYST, HEATHER 112.1 Candidiasis, Of Vulva And Vagina 06/24/2012 [facility]ENIOR BUSINESS ANALYST, HEATHER 112.1 Candidiasis, Of Vulva And Vagina 06/24/2012 [facility]ENIOR BUSINESS ANALYST, HEATHER 112.1 Candidiasis, Of Vulva And Vagina 06/24/2012 [facility]ENIOR BUSINESS ANALYST, HEATHER 112.1 Candidiasis, Of Vulva And Vagina 06/24/2012 [facility] SENIOR BUSINESS ANALYST, MARIANNA 112.1 Candidiasis, Of Vulva And Vagina 06/24/2012 [facility] SENIOR BUSINESS ANALYST, MARIANNA 112.1 Candidiasis, Of Vulva And Vagina 06/28/2012 [facility]ENIOR BUSINESS ANALYST, HEATHER 110.1 Onychomycosis 06/28/2012 [facility] SENIOR BUSINESS ANALYST, HEATHER 703.8 Other Specified Diseases Of Nail 06/28/2012 [facility] SENIOR BUSINESS ANALYST, HEATHER 110.1 Onychomycosis 06/28/2012 [facility]IOR BUSINESS ANALYST, HEATHER 703.8 Other Specified Diseases Of Nail 06/28/2012 [facility]ENIOR BUSINESS ANALYST, HEATHER 110.1 Onychomycosis 06/28/2012 [facility]ENIOR BUSINESS ANALYST, HEATHER 703.8 Other Specified Diseases Of Nail 06/28/2012 [facility]ENIOR BUSINESS ANALYST, HEATHER 110.1 Onychomycosis 06/28/2012 [facility]ENIOR BUSINESS ANALYST, HEATHER 703.8 Other Specified Diseases Of Nail 06/28/2012 [facility]ENIOR BUSINESS ANALYST, HEATHER 110.1 Onychomycosis 06/28/2012 [facility] ANALYST, HEATHER 703.8 Other Specified Diseases Of Nail 06/28/2012 [facility]IOR BUSINESS ANALYST, HEATHER 110.1 Onychomycosis 06/28/2012 [facility]IOR BUSINESS ANALYST, HEATHER 703.8 Other Specified Diseases Of Nail 06/28/2012 [facility]IOR BUSINESS ANALYST, HEATHER 110.1 Onychomycosis 06/28/2012 [facility]IOR [facility] ANALYST, HEATHER 703.8 Other Specified Diseases Of Nail 06/28/2012 [facility] SENIOR BUSINESS ANALYST, MARIANNA 110.1 Onychomycosis 06/28/2012 [facility] SENIOR BUSINESS ANALYST, MARIANNA 703.8 Other Specified Diseases Of Nail 06/28/2012 [facility] SENIOR BUSINESS ANALYST, MARIANNA 110.1 Onychomycosis 06/28/2012 [facility] SENIOR BUSINESS ANALYST, MARIANNA 703.8 Other Specified Diseases Of Nail 08/21/2012 [facility]ENIOR BUSINESS ANALYST, HEATHER 682.9 Cellulitis/abscess 08/21/2012 [facility]ENIOR BUSINESS ANALYST, HEATHER V72.31 Gynecological Exam 08/21/2012 [facility]ENIOR BUSINESS ANALYST, HEATHER 682.9 Cellulitis/abscess 08/21/2012 [facility] ANALYST, HEATHER V72.31 Gynecological Exam 08/21/2012 [facility]IOR BUSINESS ANALYST, HEATHER 682.9 Cellulitis/abscess 08/21/2012 [facility] ANALYST, HEATHER V72.31 Gynecological Exam 08/21/2012 [facility]ENIOR BUSINESS ANALYST, HEATHER 682.9 Cellulitis/abscess 08/21/2012 [facility]EN[facility] ANALYST, HEATHER V72.31 Gynecological Exam 08/21/2012 [facility] ANALYST, HEATHER 682.9 Cellulitis/abscess 08/21/2012 [facility] ANALYST, HEATHER V72.31 Gynecological Exam 08/21/2012 [facility] ANALYST, HEATHER 682.9 Cellulitis/abscess 08/21/2012 [facility] ANALYST, HEATHER V72.31 Gynecological Exam 08/21/2012 [facility] ANALYST, HEATHER 682.9 Cellulitis/abscess 08/21/2012 [facility]ENIOR [facility] ANALYST, HEATHER V72.31 Gynecological Exam 08/21/2012 [facility] SENIOR BUSINESS ANALYST, MARIANNA 682.9 Cellulitis/abscess 08/21/2012 [facility] SENIOR BUSINESS ANALYST, MARIANNA V72.31 Gynecological Exam 08/21/2012 [facility] SENIOR BUSINESS ANALYST, MARIANNA 682.9 Cellulitis/abscess 08/21/2012 [facility] SENIOR BUSINESS ANALYST, MARIANNA V72.31 Gynecological Exam 10/08/2012 [facility] ANALYST, HEATHER 466.0 Bronchitis, Acute 10/08/2012 [facility]ENIOR [facility] ANALYST, HEATHER 466.0 Bronchitis, Acute 10/08/2012 [facility] ANALYST, HEATHER 466.0 Bronchitis, Acute 10/08/2012 [facility] ANALYST, HEATHER 466.0 Bronchitis, Acute 10/08/2012 [facility] ANALYST, HEATHER 466.0 Bronchitis, Acute 10/08/2012 [facility] ANALYST, HEATHER 466.0 Bronchitis, Acute 10/08/2012 [facility] ANALYST, HEATHER 466.0 Bronchitis, Acute 10/08/2012 GOVIND SENIOR BUSINESS ANALYST, MARIANNA 466.0 Bronchitis, Acute 10/08/2012 GOVIND SENIOR BUSINESS ANALYST, MARIANNA 466.0 Bronchitis, Acute 12/05/2012 BRANDEE SENIOR BUSINESS ANALYST, HEATHER 599.0 Uti 12/05/2012 BRANDEE SENIOR BUSINESS ANALYST, HEATHER 599.0 Uti 12/05/2012 BRANDEE SENIOR BUSINESS ANALYST, HEATHER 599.0 Uti 12/05/2012 BRANDEE SENIOR BUSINESS ANALYST, HEATHER 599.0 Uti 12/05/2012 BRANDEE SENIOR BUSINESS ANALYST, HEATHER 599.0 Uti 12/05/2012 BRANDEE SENIOR BUSINESS ANALYST, HEATHER 599.0 Uti 12/05/2012 BRANDEE SENIOR BUSINESS ANALYST, HEATHER 599.0 Uti 12/05/2012 GOVIND SENIOR BUSINESS ANALYST, MARIANNA 599.0 Uti 12/05/2012 GOVIND SENIOR BUSINESS ANALYST, MARIANNA 599.0 Uti 05/21/2013 BRANDEE SENIOR BUSINESS ANALYST, HEATHER 285.9 ANEMIA, UNSPECIFIED 05/21/2013 BRANDEE SENIOR BUSINESS ANALYST, HEATHER 285.9 ANEMIA, UNSPECIFIED 05/21/2013 BRANDEE SENIOR BUSINESS ANALYST, HEATHER 285.9 ANEMIA, UNSPECIFIED 05/21/2013 BRANDEE SENIOR BUSINESS ANALYST, HEATHER 285.9 ANEMIA, UNSPECIFIED 05/21/2013 BRANDEE SENIOR BUSINESS ANALYST, HEATHER 285.9 ANEMIA, UNSPECIFIED 05/21/2013 BRANDEE SENIOR BUSINESS ANALYST, HEATHER 285.9 ANEMIA, UNSPECIFIED 05/21/2013 BRANDEE SENIOR BUSINESS ANALYST, HEATHER 285.9 ANEMIA, UNSPECIFIED 05/21/2013 MARIANNA FAUST APRN 285.9 ANEMIA, UNSPECIFIED 08/07/2013 BRANDEE SENIOR BUSINESS ANALYST, HEATHER 682.5 CELLULITIS AND ABSCESS OF BUTTOCK 08/07/2013 BRANDEE SENIOR BUSINESS ANALYST, HEATHER 682.5 CELLULITIS AND ABSCESS OF BUTTOCK 08/07/2013 BRANDEE SENIOR BUSINESS ANALYST, HEATHER 682.5 CELLULITIS AND ABSCESS OF BUTTOCK 08/07/2013 BRANDEE SENIOR BUSINESS ANALYST, HEATHER 682.5 CELLULITIS AND ABSCESS OF BUTTOCK 08/07/2013 BRANDEE SENIOR BUSINESS ANALYST, HEATHER 682.5 CELLULITIS AND ABSCESS OF BUTTOCK 08/07/2013 BRANDEE SENIOR BUSINESS ANALYST, HEATHER 682.5 CELLULITIS AND ABSCESS OF BUTTOCK 08/07/2013 BRANDEE SENIOR BUSINESS ANALYST, HEATHER 682.5 CELLULITIS AND ABSCESS OF BUTTOCK 12/12/2013 BRANDEE HEATHER WRIGHT 250.02 DIABETES MELLITUS WITHOUT MENTION OF COMPLICATION TYPE II OR UNSPECIFIED TYPE UNCONTROLLED 12/12/2013 BRANDEE SENIOR BUSINESS ANALYSTHEATHER Sunshine 250.02 DIABETES MELLITUS WITHOUT MENTION OF COMPLICATION TYPE II OR UNSPECIFIED TYPE UNCONTROLLED 12/12/2013 BRANDEE HEATHER WRIGHT 250.02 DIABETES MELLITUS WITHOUT MENTION OF COMPLICATION TYPE II OR UNSPECIFIED TYPE UNCONTROLLED 12/12/2013 BRANDEE [employer] ANALYST, HEATHER 250.02 DIABETES MELLITUS WITHOUT MENTION OF [...] 10/30/2018 Halle Sahni MD C67.9 Bladder cancer 10/30/2018 Reason For Visit L08.9 Local infection of the skin and subcutaneous tissue, unspecified Procedures Code Description [place] [address] GLUCOSE 05/08/2013 92600 HEMOGLOBIN A1C 05/08/2013 G0008 ADMIN FEE (MEDICARE) INFLUENZA 05/14/2013 45403 CBC - CBC WITH DIFF - LC 05/15/2013 63044 COMP - COMPREHENSIVE PANEL - LC 05/15/2013 69111 LIPID - LIPID PANEL - LC 05/15/2013 67936 TSH - TSH - LC 05/15/2013 56128 MALB - MICROALBUMIN - LC 05/15/2013 98481 GLUCOSE 08/11/2013 43826 HEMOGLOBIN A1C 08/11/2013 64641 CBC WITH DIFF 08/12/2013 63830 GLUCOSE 10/07/2013 4000F TOBACCO USE TXMNT COUNSELING 10/13/2013 84026 PULSE OXIMETRY 12/12/2013 A4614 PEAK FLOW 12/12/2013 33540 GLUCOSE 12/12/2013 58119 HEMOGLOBIN A1C 12/12/2013 Pulmonary Pulmonary Function Test 01/13/2014 A4614 PEAK FLOW 02/10/2014 30342 PULSE OXIMETRY 02/10/2014 39964 GLUCOSE 02/10/2014 Endocrino Endocrinology 02/13/2014 Pulmonary Pulmonology, Pulmonology 03/13/2014 04215 PULSE OXIMETRY 04/14/2014 A4614 PEAK FLOW 04/14/2014 [...] 7-25 CREATININE 0.90 mg/dL 0.50-1.05 eGFR NON-AFR. BANGLADESHI 74 mL/min/1.73m2 > OR=60 eGFR 86 mL/min/1.73m2 [...] Status Pt. Type Provider Facility Loc./Unit Complaint [id number] 10/30/2018 17:22:00 Document Registration [id number] 04/14/2014 08:59:00 04/14/2014 11:05:00 DIS Outpatient HEATHER IRVIN APRN [id number] 02/10/2014 09:57:00 02/10/2014 23:59:59 CLS Outpatient HEATHER IRVIN APRN [id number] 02/10/2014 09:57:00 02/10/2014 23:59:59 CLS Outpatient HEATHER IRVIN APRN [id number] 12/12/2013 10:38:00 12/12/2013 23:59:59 CLS Outpatient HEATHER IRVIN APRN [id number] 10/07/2013 14:37:00 10/13/2013 20:05:00 DIS Outpatient HEATHER IRVIN APRN [id number] 10/07/2013 14:37:00 10/07/2013 23:59:59 CLS Outpatient HEATHER IRVIN APRN [id number] 08/11/2013 10:11:00 08/11/2013 13:49:00 DIS Outpatient HEATHER IRVIN APRN [id number] 05/08/2013 09:56:00 05/08/2013 23:59:59 CLS Outpatient MARIANNA FAUST APRN [id number] 01/08/2013 08:25:00 01/08/2013 23:59:59 CLS Outpatient MARIANNA FAUST APRN [id number] 11/08/2018 15:22:59 ACT Document Registration [id number] 11/06/2018 17:00:00 11/06/2018 23:59:59 CLS Outpatient PRIYA LIRIANO [facility] [id number] 10/07/2018 13:15:00 Document Registration [id number] 09/25/2018 09:45:00 Document Registration [id number] 11/08/2018 13:41:03 ACT Unknown Halle Sahni MD [id number] 10/15/2014 15:34:45 10/15/2014 23:59:00 DIS Outpatient SONY CAMPO [facility] [place] [id number] 08/12/2014 12:31:00 08/12/2014 14:34:00 DIS Emergency [facility] FED [id number] 06/21/2014 16:47:00 06/21/2014 17:52:00 DIS Emergency [facility] FED [id number] 09/02/2014 00:00:00 Document Registration
--- NOTE | 2018-11-14 22:24 | NUR ---
DOCTOR IN TO SEE THE PATIENT.
--- NOTE | 2018-11-14 22:28 | ED General ---
General Chief Complaint: Glucose Problems Stated Complaint: BLOOD SUGAR ISSUES Source of Information: Patient Exam Limitations: No Limitations History of Present Illness Date Seen by Provider: November 14, 2018 Time Seen by Provider: 22:23 Initial Comments 53-year-old female with multiple medical problems presents with concerns her blood sugars was her low for her. Today her glucose was 79. She took her normal dose of insulin tonight. She's not had any shaking, seizures, loss of consciousness, focal neurologic symptoms or other problems other than generally feeling poorly. She states that she is now improved. She would like to have her blood sugar and electrolytes checked. No further investigation at this time. She states that she was recently hospitalized with pneumonia but those symptoms have since resolved. Allergies and Home Medications Allergies Coded Allergies: No Known Drug Allergies (Unverified , 10/16/18) Patient Home Medication List Home Medication List Reviewed: Yes Review of Systems Review of Systems Constitutional: malaise, weakness EENTM: see HPI Respiratory: see HPI Cardiovascular: no symptoms reported Gastrointestinal: no symptoms reported Genitourinary: no symptoms reported Musculoskeletal: no symptoms reported Skin: no symptoms reported Psychiatric/Neurological: Anxiety Hematologic/Lymphatic: No Symptoms Reported Immunological/Allergic: no symptoms reported Past Owcsdkw-[id number]-[id number] Hx Past Med/Social Hx: Reviewed Nursing Past Med/Soc Hx Patient Social History Drug of Choice: marijuana Type Used: Cigarettes 2nd Hand Smoke Exposure: Yes Recent Foreign Travel: No Contact w/Someone Who Travel: No Recent Hopitalizations: No Seasonal Allergies Seasonal Allergies: No Past Medical History Surgeries: Yes Abdominal, Hysterectomy, Nephrectomy, Tonsillectomy, Tubal Ligation Respiratory: Yes Asthma Currently Using CPAP: No Currently Using BIPAP: No Cardiac: No Hypertension Neurological: No [employer] History: Hysterectomy Kidney Infection, Kidney Stones Gastrointestinal: No Musculoskeletal: No Endocrine: Yes Diabetes, Non-Insulin dep Cancer: Yes Kidney Did You Recieve Any Treatments: Yes What Type of Treatment Did You: Chemotherapy, Surgical Intervention Psychosocial: Yes Sleep Difficulties Integumentary: Yes (Pt. has multiple lesions on her abd and under the folds.) Blood Disorders: No Adverse Reaction/Blood Tranf: No Physical Exam Vital Signs Vital Signs - First Documented 11/14/18 21:56 Temp 98.6 Pulse 105 Resp 20 B/P (MAP) 138/87 (104) Pulse Ox 98 O2 Delivery Room Air Capillary Refill : Height, Weight, BMI Height: 5'7.00" Weight: 226lbs. 0oz. 102.846448vu; BMI Method:Stated General Appearance: No Apparent Distress, WD/WN Eyes: Bilateral Eye Normal Inspection, Bilateral Eye PERRL, Bilateral Eye EOMI HEENT: PERRL/EOMI, TMs Normal, Normal ENT Inspection, Pharynx Normal Neck: Full Range of Motion, Normal Inspection, Non Tender, Supple Respiratory: Lungs Clear, No Accessory Muscle Use, No Respiratory Distress, Decreased Breath Sounds Cardiovascular: Regular Rate, Rhythm, No Gallop, No JVD, No Murmur, Normal Peripheral Pulses Gastrointestinal: Normal Bowel Sounds, No Organomegaly, Non Tender, Soft Back: Normal Inspection, No CVA Tenderness Extremity: Normal Capillary Refill, Normal Inspection, Normal Range of Motion, Non Tender, No Calf Tenderness Neurologic/Psychiatric: Alert, Oriented x3, No Motor/Sensory Deficits Skin: Normal Color, Warm/Dry Lymphatic: No Adenopathy Progress/Results/Core Measures Suspected Sepsis SIRS Temperature: Pulse: Respiratory Rate: Blood Pressure / Mean: Laboratory Tests 11/14/18 22:40: Creatinine 0.96 Results/Orders Lab Results Laboratory Tests Test 11/14/18 22:05 11/14/18 22:40 Range/Units Glucometer 73 70-110 MG/DL Sodium Level 140 135-145 MMOL/L Potassium Level 3.8 3.6-5.0 MMOL/L Chloride Level 99 98-107 MMOL/L Carbon Dioxide Level 23 21-32 MMOL/L Anion Gap 18 H 5-14 MMOL/L Blood Urea Nitrogen 12 7-18 MG/DL Creatinine 0.96 0.60-1.30 MG/DL Estimat Glomerular Filtration Rate > 60 BUN/Creatinine Ratio 13 Glucose Level 69 L 70-105 MG/DL Calcium Level 9.4 8.5-10.1 MG/DL My Orders Orders - DANIEL HERNANDEZ MD Basic Metabolic Panel (11/14/18 22:26) Vital Signs/I&O 11/14/18 21:56 Temp 98.6 Pulse 105 Resp 20 B/P (MAP) 138/87 (104) Pulse Ox 98 O2 Delivery Room Air Capillary Refill : Progress Note : Time: 22:29 Progress Note We'll test BMP per her request and limit workup as she has requested. As she is feeling better, I suspect that she has stabilized but we will monitor closely. Patient understands and agrees with plan. 1164 feeling much better. Taking by mouth fluids. We had a long discussion concerning methods of effectively dealing with hypoglycemia. She would like to go home. I encouraged close monitoring of her blood sugar and ensuring adequate oral intake. Departure Impression Primary Impression: Diabetes mellitus Qualified Codes: E11.9 - Type 2 diabetes mellitus without complications; Z79.4 - shelter (current) use of insulin Additional Impression: Hypoglycemia associated with diabetes Disposition: 01 HOME, SELF-CARE Condition: Improved Departure-Patient Inst. Decision time for Depature: 23:17 Referrals: NO,LOCAL PHYSICIAN (PCP/Family) Primary Care Physician 2-3 days, sooner as needed Patient Instructions: Diabetes Type 2 (DC) DANIEL HERNANDEZ MD November 14, 2018 22:28
[2018-11-14 23:11] LABS: POTASSIUM 3.8 MMOL/L (3.6-5.0); SODIUM 140 MMOL/L (135-145)
[2018-11-14 23:12] LABS: BUN/CREATININE RATIO 13; CALCIUM 9.4 MG/DL (8.5-10.1); CARBON DIOXIDE 23 MMOL/L (21-32); CHLORIDE 99 MMOL/L (98-107); CREATININE SERUM 0.96 MG/DL (0.60-1.30); GFR ESTIMATED > 60; GLUCOSE 69 MG/DL (70-105)
[2018-11-14 23:17] VITALS: BP 138/87
== END 2018-11-14 23:23 | disposition home or self-care (01) ==
LOC: EDUNIT# 21:42 → ER FS 21:43
DX: E11.649 Type 2 diabetes mellitus with hypoglycemia without coma (principal); J45.909 Unspecified asthma, uncomplicated; I10 Essential (primary) hypertension; F12.10 Cannabis abuse, uncomplicated; Z85.528 Personal history of other malignant neoplasm of kidney; Z92.21 Personal history of antineoplastic chemotherapy; Z87.442 Personal history of urinary calculi; Z87.01 Personal history of pneumonia (recurrent); Z77.22 Contact with and (suspected) exposure to environmental tobacco smoke (acute) (chronic); Z90.710 Acquired absence of both cervix and uterus; Z98.51 Tubal ligation status; Z90.6 Acquired absence of other parts of urinary tract
CPT/HCPCS: 36415; 80048; 82962; 99281

== ENCOUNTER 2018-11-29 08:32 | Emergency (ER) | payer MEDICARE, MEDICAID ==
[~2018-11-29] VITALS: Ht 170.2 cm; Wt 100.7 kg
--- OUTSIDE RECORDS SUMMARY | 2018-11-29 08:46 | XMS REPORT | Continuity of Care Document ---
Demographics Preferred Language Unknown Marital Status Unknown Rastafarian Affiliation Unknown Race Unknown Ethnic Group Unknown Author Organization Unknown Address Unknown Allergies Active Description Code Type Severity Reaction Onset Reported/Identified Relationship to Patient Clinical Status Yes No Known Medication Allergies Drug N/A N/A Medications There is no data. Problems Date Dx Coded Attending Type Code Diagnosis Diagnosed By 07/05/2010 BRANDEEROBERT WRIGHT HEATHER 278.01 OBESITY MORBID 07/05/2010 BRANDEE RAW SCALES OPERATOR, HEATHER 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, Unspecified 07/05/2010 [facility] KYLE, HEATHER V15.82 TOBACCOISM 07/05/2010 [facility] RAW SCALES OPERATOR, HEATHER 278.01 OBESITY MORBID 07/05/2010 [facility] RAW SCALES OPERATOR, HEATHER 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, Unspecified 07/05/2010 [facility] KYLE, HEATHER V15.82 TOBACCOISM 07/05/2010 [facility] RAW SCALES OPERATOR, HEATHER 278.01 OBESITY MORBID 07/05/2010 [facility] RAW SCALES OPERATOR, HEATHER 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, Unspecified 07/05/2010 [facility] RAW SCALES OPERATOR, HEATHER V15.82 TOBACCOISM 07/05/2010 [facility] RAW SCALES OPERATOR, HEATHER 278.01 OBESITY MORBID 07/05/2010 [facility] RAW SCALES OPERATOR, HEATHER 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, Unspecified 07/05/2010 [facility] RAW SCALES OPERATOR, HEATHER V15.82 TOBACCOISM 07/05/2010 [facility] RAW SCALES OPERATOR, HEATHER 278.01 OBESITY MORBID 07/05/2010 [facility] RAW SCALES OPERATOR, HEATHER 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, Unspecified 07/05/2010 [facility] RAW SCALES OPERATOR, HEATHER V15.82 TOBACCOISM 07/05/2010 BRANDEE RAW SCALES OPERATOR, HEATHER 278.01 OBESITY MORBID 07/05/2010 [facility] RAW SCALES OPERATOR, HEATHER 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, Unspecified 07/05/2010 [facility] RAW SCALES OPERATOR, HEATHER V15.82 TOBACCOISM 07/05/2010 [facility] RAW SCALES OPERATOR, HEATHER 278.01 OBESITY MORBID 07/05/2010 [facility] RAW SCALES OPERATOR, HEATHER 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, Unspecified 07/05/2010 BRANDEE RAW SCALES OPERATOR, HEATHER V15.82 TOBACCOISM 07/05/2010 GOVIND RAW SCALES OPERATOR, MARIANNA 278.01 OBESITY MORBID 07/05/2010 GOVIND RAW SCALES OPERATOR, MARIANNA 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, Unspecified 07/05/2010 GOVIND RAW SCALES OPERATOR, MARIANNA V15.82 TOBACCOISM 07/05/2010 GOVIND RAW SCALES OPERATOR, MARIANNA 278.01 OBESITY MORBID 07/05/2010 GOVIND RAW SCALES OPERATOR, MARIANNA 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, Unspecified 07/05/2010 GOVIND RAW SCALES OPERATOR, MARIANNA V15.82 TOBACCOISM 07/07/2010 BRANDEE RAW SCALES OPERATOR, HEATHER 280.9 Anemia Hypochromic / Microcytic 07/07/2010 [facility] RAW SCALES OPERATOR, HEATHER 796.2 Prehypertension 07/07/2010 [facility] RAW SCALES OPERATOR, HEATHER V04.81 Influenza Vaccine 07/07/2010 [facility] RAW SCALES OPERATOR, HEATHER V68.89 Encounters For Other Specified Administrative Purpose 07/07/2010 BRANDEE RAW SCALES OPERATOR, HEATHER V72.31 Routine Pelvic Exam 07/07/2010 [facility] RAW SCALES OPERATOR, HEATHER 280.9 Anemia Hypochromic / Microcytic 07/07/2010 [facility] RAW SCALES OPERATOR, HEATHER 796.2 Prehypertension 07/07/2010 BRANDEE RAW SCALES OPERATOR, HEATHER V04.81 Influenza Vaccine 07/07/2010 BRANDEE RAW SCALES OPERATOR, HEATHER V68.89 Encounters For Other Specified Administrative Purpose 07/07/2010 BRANDEE RAW SCALES OPERATOR, HEATHER V72.31 Routine Pelvic Exam 07/07/2010 BRANDEE RAW SCALES OPERATOR, HEATHER 280.9 Anemia Hypochromic / Microcytic 07/07/2010 BRANDEE RAW SCALES OPERATOR, HEATHER 796.2 Prehypertension 07/07/2010 [facility] RAW SCALES OPERATOR, HEATHER V04.81 Influenza Vaccine 07/07/2010 BRANDEE RAW SCALES OPERATOR, HEATHER V68.89 Encounters For Other Specified Administrative Purpose 07/07/2010 BRANDEE RAW SCALES OPERATOR, HEATHER V72.31 Routine Pelvic Exam 07/07/2010 [facility] RAW SCALES OPERATOR, HEATHER 280.9 Anemia Hypochromic / Microcytic 07/07/2010 [facility] RAW SCALES OPERATOR, HEATHER 796.2 Prehypertension 07/07/2010 [facility] RAW SCALES OPERATOR, HEATHER V04.81 Influenza Vaccine 07/07/2010 [facility] RAW SCALES OPERATOR, HEATHER V68.89 Encounters For Other Specified Administrative Purpose 07/07/2010 BRANDEE RAW SCALES OPERATOR, HEATHER V72.31 Routine Pelvic Exam 07/07/2010 [facility] RAW SCALES OPERATOR, HEATHER 280.9 Anemia Hypochromic / Microcytic 07/07/2010 [facility] RAW SCALES OPERATOR, HEATHER 796.2 Prehypertension 07/07/2010 [facility] RAW SCALES OPERATOR, HEATHER V04.81 Influenza Vaccine 07/07/2010 [facility] RAW SCALES OPERATOR, HEATHER V68.89 Encounters For Other Specified Administrative Purpose 07/07/2010 BRANDEE RAW SCALES OPERATOR, HEATHER V72.31 Routine Pelvic Exam 07/07/2010 [facility] RAW SCALES OPERATOR, HEATHER 280.9 Anemia Hypochromic / Microcytic 07/07/2010 [facility] RAW SCALES OPERATOR, HEATHER 796.2 Prehypertension 07/07/2010 [facility] RAW SCALES OPERATOR, HEATHER V04.81 Influenza Vaccine 07/07/2010 [facility] RAW SCALES OPERATOR, HEATHER V68.89 Encounters For Other Specified Administrative Purpose 07/07/2010 [facility] RAW SCALES OPERATOR, HEATHER V72.31 Routine Pelvic Exam 07/07/2010 [facility] RAW SCALES OPERATOR, HEATHER 280.9 Anemia Hypochromic / Microcytic 07/07/2010 [facility] RAW SCALES OPERATOR, HEATHER 796.2 Prehypertension 07/07/2010 [facility] RAW SCALES OPERATOR, HEATHER V04.81 Influenza Vaccine 07/07/2010 [facility] RAW SCALES OPERATOR, HEATHER V68.89 Encounters For Other Specified Administrative Purpose 07/07/2010 BRANDEE RAW SCALES OPERATOR, HEATHER V72.31 Routine Pelvic Exam 07/07/2010 GOVIND RAW SCALES OPERATOR, MARIANNA 280.9 Anemia Hypochromic / Microcytic 07/07/2010 GOVIND RAW SCALES OPERATOR, MARIANNA 796.2 Prehypertension 07/07/2010 GOVIND RAW SCALES OPERATOR, MARIANNA V04.81 Influenza Vaccine 07/07/2010 GOVIND RAW SCALES OPERATOR, MARIANNA V68.89 Encounters For Other Specified Administrative Purpose 07/07/2010 GOVIND RAW SCALES OPERATOR, MARIANNA V72.31 Routine Pelvic Exam 07/07/2010 GOVIND RAW SCALES OPERATOR, MARIANNA 280.9 Anemia Hypochromic / Microcytic 07/07/2010 GOVIND RAW SCALES OPERATOR, MARIANNA 796.2 Prehypertension 07/07/2010 GOVIND RAW SCALES OPERATORMARIANNA Sunshine V04.81 Influenza Vaccine 07/07/2010 MARIANNA FAUST APRN V68.89 Encounters For Other Specified Administrative Purpose 07/07/2010 GOVIND RAW SCALES OPERATORMARIANNA Sunshine V72.31 Routine Pelvic Exam 10/20/2010 BRANDEE RAW SCALES OPERATOR, HEATHER 112.1 Candidiasis, Of Vulva And Vagina 10/20/2010 BRANDEE RAW SCALES OPERATOR, HEATHER 599.0 Uti 10/20/2010 BRANDEE RAW SCALES OPERATOR, HEATHER 112.1 Candidiasis, Of Vulva And Vagina 10/20/2010 BRANDEE RAW SCALES OPERATOR, HEATHER 599.0 Uti 10/20/2010 BRANDEE RAW SCALES OPERATOR, HEATHER 112.1 Candidiasis, Of Vulva And Vagina 10/20/2010 BRANDEE RAW SCALES OPERATOR, HEATHER 599.0 Uti 10/20/2010 BRANDEE RAW SCALES OPERATOR, HEATHER 112.1 Candidiasis, Of Vulva And Vagina 10/20/2010 BRANDEE RAW SCALES OPERATOR, HEATHER 599.0 Uti 10/20/2010 BRANDEE RAW SCALES OPERATOR, HEATHER 112.1 Candidiasis, Of Vulva And Vagina 10/20/2010 BRANDEE RAW SCALES OPERATOR, HEATHER 599.0 Uti 10/20/2010 BRANDEE RAW SCALES OPERATOR, HEATHER 112.1 Candidiasis, Of Vulva And Vagina 10/20/2010 BRANDEE RAW SCALES OPERATOR, HEATHER 599.0 Uti 10/20/2010 BRANDEE RAW SCALES OPERATOR, HEATHER 112.1 Candidiasis, Of Vulva And Vagina 10/20/2010 BRANDEE RAW SCALES OPERATOR, HEATHER 599.0 Uti 10/20/2010 GOVIND RAW SCALES OPERATOR, MARIANNA 112.1 Candidiasis, Of Vulva And Vagina 10/20/2010 GOVIND RAW SCALES OPERATOR, MARIANNA 599.0 Uti 10/20/2010 GOVIND RAW SCALES OPERATOR, MARIANNA 112.1 Candidiasis, Of Vulva And Vagina 10/20/2010 GOVIND RAW SCALES OPERATOR, MARIANNA 599.0 Uti 10/24/2010 BRANDEE RAW SCALES OPERATOR, HEATHER 250.00 DIABETES MELLITUS TYPE 2 10/24/2010 BRANDEE RAW SCALES OPERATOR, HEATHER 466.0 Bronchitis, Acute 10/24/2010 BRANDEE RAW SCALES OPERATOR, HEATHER 496 PULMONARY OBSTRUCTIVE DISORDERS 10/24/2010 BRANDEE RAW SCALES OPERATOR, HEATHER 250.00 DIABETES MELLITUS TYPE 2 10/24/2010 BRANDEE RAW SCALES OPERATOR, HEATHER 466.0 Bronchitis, Acute 10/24/2010 BRANDEE RAW SCALES OPERATOR, HEATHER 496 PULMONARY OBSTRUCTIVE DISORDERS 10/24/2010 BRANDEE RAW SCALES OPERATOR, HEATHER 250.00 DIABETES MELLITUS TYPE 2 10/24/2010 BRANDEE RAW SCALES OPERATOR, HEATHER 466.0 Bronchitis, Acute 10/24/2010 BRANDEE RAW SCALES OPERATOR, HEATHER 496 PULMONARY OBSTRUCTIVE DISORDERS 10/24/2010 BRANDEE RAW SCALES OPERATOR, HEATHER 250.00 DIABETES MELLITUS TYPE 2 10/24/2010 BRANDEE RAW SCALES OPERATOR, HEATHER 466.0 Bronchitis, Acute 10/24/2010 BRANDEE RAW SCALES OPERATOR, HEATHER 496 PULMONARY OBSTRUCTIVE DISORDERS 10/24/2010 BRANDEE RAW SCALES OPERATOR, HEATHER 250.00 DIABETES MELLITUS TYPE 2 10/24/2010 [facility] RAW SCALES OPERATOR, HEATHER 466.0 Bronchitis, Acute 10/24/2010 [facility] RAW SCALES OPERATOR, HEATHER 496 PULMONARY OBSTRUCTIVE DISORDERS 10/24/2010 BRANDEE RAW SCALES OPERATOR, HEATHER 250.00 DIABETES MELLITUS TYPE 2 10/24/2010 BRANDEE RAW SCALES OPERATOR, HEATHER 466.0 Bronchitis, Acute 10/24/2010 [facility] RAW SCALES OPERATOR, HEATHER 496 PULMONARY OBSTRUCTIVE DISORDERS 10/24/2010 BRANDEE RAW SCALES OPERATOR, HEATHER 250.00 DIABETES MELLITUS TYPE 2 10/24/2010 BRANDEE RAW SCALES OPERATOR, HEATHER 466.0 Bronchitis, Acute 10/24/2010 [facility] RAW SCALES OPERATOR, HEATHER 496 PULMONARY OBSTRUCTIVE DISORDERS 10/24/2010 GOVIND RAW SCALES OPERATOR, MARIANNA 250.00 DIABETES MELLITUS TYPE 2 10/24/2010 GOVIND RAW SCALES OPERATOR, MARIANNA 466.0 Bronchitis, Acute 10/24/2010 GOVIND RAW SCALES OPERATOR, MARIANNA 496 PULMONARY OBSTRUCTIVE DISORDERS 10/24/2010 GOVIND RAW SCALES OPERATOR, MARIANNA 250.00 DIABETES MELLITUS TYPE 2 10/24/2010 GOVIND RAW SCALES OPERATOR, MARIANNA 466.0 Bronchitis, Acute 10/24/2010 GOVIND RAW SCALES OPERATOR, MARIANNA 496 PULMONARY OBSTRUCTIVE DISORDERS 05/12/2011 BRANDEE RAW SCALES OPERATOR, HEATHER 703.0 Ingrowing Nail 05/12/2011 [facility] RAW SCALES OPERATOR, HEATHER 726.91 EXOSTOSIS OF UNSPECIFIED SITE 05/12/2011 BRANDEE RAW SCALES OPERATOR, HEATHER 703.0 Ingrowing Nail 05/12/2011 BRNADEE RAW SCALES OPERATOR, HEATHER 726.91 EXOSTOSIS OF UNSPECIFIED SITE 05/12/2011 BRANDEE RAW SCALES OPERATOR, HEATHER 703.0 Ingrowing Nail 05/12/2011 BRANDEE RAW SCALES OPERATOR, HEATHER 726.91 EXOSTOSIS OF UNSPECIFIED SITE 05/12/2011 BRANDEE RAW SCALES OPERATOR, HEATHER 703.0 Ingrowing Nail 05/12/2011 BRANDEE RAW SCALES OPERATOR, HEATHER 726.91 EXOSTOSIS OF UNSPECIFIED SITE 05/12/2011 BRANDEE RAW SCALES OPERATOR, HEATHER 703.0 Ingrowing Nail 05/12/2011 BRANDEE RAW SCALES OPERATOR, HEATHER 726.91 EXOSTOSIS OF UNSPECIFIED SITE 05/12/2011 BRANDEE RAW SCALES OPERATOR, HEATHER 703.0 Ingrowing Nail 05/12/2011 [facility] RAW SCALES OPERATOR, HEATHER 726.91 EXOSTOSIS OF UNSPECIFIED SITE 05/12/2011 [facility] RAW SCALES OPERATOR, HEATHER 703.0 Ingrowing Nail 05/12/2011 BRANDEE RAW SCALES OPERATOR, HEATHER 726.91 EXOSTOSIS OF UNSPECIFIED SITE 05/12/2011 GOVIND RAW SCALES OPERATOR, MARIANNA 703.0 Ingrowing Nail 05/12/2011 GOVIND RAW SCALES OPERATOR, MARIANNA 726.91 EXOSTOSIS OF UNSPECIFIED SITE 05/12/2011 GOVIND RAW SCALES OPERATOR, MARIANNA 703.0 Ingrowing Nail 05/12/2011 GOVIND RAW SCALES OPERATOR, MARIANNA 726.91 EXOSTOSIS OF UNSPECIFIED SITE 06/02/2011 [facility] RAW SCALES OPERATOR, HEATHER 078.12 Plantar Wart 06/02/2011 BRANDEE RAW SCALES OPERATOR, HEATHER 078.12 Plantar Wart 06/02/2011 BRANDEE RAW SCALES OPERATOR, HEATHER 078.12 Plantar Wart 06/02/2011 BRANDEE RAW SCALES OPERATOR, HEATHER 078.12 Plantar Wart 06/02/2011 BRANDEE RAW SCALES OPERATOR, HEATHER 078.12 Plantar Wart 06/02/2011 BRANDEE RAW SCALES OPERATOR, HEATHER 078.12 Plantar Wart 06/02/2011 BRANDEE RAW SCALES OPERATOR, HEATHER 078.12 Plantar Wart 06/02/2011 GOVIND RAW SCALES OPERATOR, MARIANNA 078.12 Plantar Wart 06/02/2011 GOVIND RAW SCALES OPERATOR, MARIANNA 078.12 Plantar Wart 07/05/2011 BRANDEE RAW SCALES OPERATOR, HEATHER 466.0 ACUTE BRONCHITIS 07/05/2011 BRANDEE RAW SCALES OPERATOR, HEATHER 466.0 ACUTE BRONCHITIS 07/05/2011 BRANDEE RAW SCALES OPERATOR, HEATHER 466.0 ACUTE BRONCHITIS 07/05/2011 BRANDEE RAW SCALES OPERATOR, HEATHER 466.0 ACUTE BRONCHITIS 07/05/2011 BRANDEE RAW SCALES OPERATOR, HEATHER 466.0 ACUTE BRONCHITIS 07/05/2011 BRANDEE RAW SCALES OPERATOR, HEATHER 466.0 ACUTE BRONCHITIS 07/05/2011 BRANDEE RAW SCALES OPERATOR, HEATHER 466.0 ACUTE BRONCHITIS 07/05/2011 GOVIND RAW SCALES OPERATOR, MARIANNA 466.0 ACUTE BRONCHITIS 07/05/2011 GOVIND RAW SCALES OPERATOR, MARIANNA 466.0 ACUTE BRONCHITIS 11/20/2011 BRANDEE RAW SCALES OPERATOR, HEATHER 682.9 CELLULITIS 11/20/2011 BRANDEE RAW SCALES OPERATOR, HEATHER 682.9 CELLULITIS 11/20/2011 BRANDEE RAW SCALES OPERATOR, HEATHER 682.9 CELLULITIS 11/20/2011 BRANDEE RAW SCALES OPERATOR, HEATHER 682.9 CELLULITIS 11/20/2011 BRANDEE RAW SCALES OPERATOR, HEATHER 682.9 CELLULITIS 11/20/2011 BRANDEE RAW SCALES OPERATOR, HEATHER 682.9 CELLULITIS 11/20/2011 BRANDEE RAW SCALES OPERATOR, HEATHER 682.9 CELLULITIS 11/20/2011 GOVIND RAW SCALES OPERATOR, MARIANNA 682.9 CELLULITIS 11/20/2011 GOVIND RAW SCALES OPERATOR, MARIANNA 682.9 CELLULITIS 12/22/2011 BRANDEE RAW SCALES OPERATOR, HEATHER 401.1 ESSENTIAL HYPERTENSION BENIGN 12/22/2011 BRANDEE RAW SCALES OPERATOR, HEATHER 401.1 ESSENTIAL HYPERTENSION BENIGN 12/22/2011 BRANDEE RAW SCALES OPERATOR, HEATHER 401.1 ESSENTIAL HYPERTENSION BENIGN 12/22/2011 BRANDEE RAW SCALES OPERATOR, HEATHER 401.1 ESSENTIAL HYPERTENSION BENIGN 12/22/2011 BRANDEE RAW SCALES OPERATOR, HEATHER 401.1 ESSENTIAL HYPERTENSION BENIGN 12/22/2011 BRANDEE RAW SCALES OPERATOR, HEATHER 401.1 ESSENTIAL HYPERTENSION BENIGN 12/22/2011 BRANDEE RAW SCALES OPERATORALEXEN 401.1 ESSENTIAL HYPERTENSION BENIGN 12/22/2011 GOVIND RAW SCALES OPERATORENE 401.1 ESSENTIAL HYPERTENSION BENIGN 12/22/2011 GOVIND RAW SCALES OPERATORENE 401.1 ESSENTIAL HYPERTENSION BENIGN 04/09/2012 BRANDEE RAW SCALES OPERATORHEATHER 272.2 HYPERLIPIDEMIA 04/09/2012 BRANDEE RAW SCALES OPERATORALEXEN V04.81 Need For Prophylactic Vaccination And Inoculation Against Influenza 04/09/2012 BRANDEE RAW SCALES OPERATOR, HEATHER 272.2 HYPERLIPIDEMIA 04/09/2012 BRANDEE RAW SCALES OPERATOR, HEATHER V04.81 Need For Prophylactic Vaccination And Inoculation Against Influenza 04/09/2012 BRANDEE RAW SCALES OPERATORHEATHER Sunshine 272.2 HYPERLIPIDEMIA 04/09/2012 BRANDEE RAW SCALES OPERATOR, HEATHER V04.81 Need For Prophylactic Vaccination And Inoculation Against Influenza 04/09/2012 BRANDEE RAW SCALES OPERATOR, HEATHER 272.2 HYPERLIPIDEMIA 04/09/2012 BRANDEE RAW SCALES OPERATOR, HEATHER V04.81 Need For Prophylactic Vaccination And Inoculation Against Influenza 04/09/2012 BRANDEE RAW SCALES OPERATORHEATHER Sunshine 272.2 HYPERLIPIDEMIA 04/09/2012 BRANDEE RAW SCALES OPERATOR, HEATHER V04.81 Need For Prophylactic Vaccination And Inoculation Against Influenza 04/09/2012 BRANDEE RAW SCALES OPERATOR, HEATHER 272.2 HYPERLIPIDEMIA 04/09/2012 BRANDEE RAW SCALES OPERATOR, HEATHER V04.81 Need For Prophylactic Vaccination And Inoculation Against Influenza 04/09/2012 BRANDEE RAW SCALES OPERATOR, HEATHER 272.2 HYPERLIPIDEMIA 04/09/2012 BRANDEE RAW SCALES OPERATOR, HEATHER V04.81 Need For Prophylactic Vaccination And Inoculation Against Influenza 04/09/2012 GOVIND MARIANNA WRIGHT 272.2 HYPERLIPIDEMIA 04/09/2012 GOVIND MARIANNA WRIGHT V04.81 Need For Prophylactic Vaccination And Inoculation Against Influenza 04/09/2012 GOVIND MARIANNA WRIGHT 272.2 HYPERLIPIDEMIA 04/09/2012 GOVIND MARIANNA WRIGHT V04.81 Need For Prophylactic Vaccination And Inoculation Against Influenza 05/14/2012 BRANDEE HEATHER WRIGHT 682.9 Cellulitis/abscess 05/14/2012 BRANDEE HEATHER WRIGHT 682.9 Cellulitis/abscess 05/14/2012 BRANDEE RAW SCALES OPERATOR, HEATHER 682.9 Cellulitis/abscess 05/14/2012 BRANDEE RAW SCALES OPERATOR, HEATHER 682.9 Cellulitis/abscess 05/14/2012 BRANDEE RAW SCALES OPERATOR, HEATHER 682.9 Cellulitis/abscess 05/14/2012 BRANDEE RAW SCALES OPERATOR, HEATHER 682.9 Cellulitis/abscess 05/14/2012 BRANDEE RAW SCALES OPERATOR, HEATHER 682.9 Cellulitis/abscess 05/14/2012 GOVIND RAW SCALES OPERATOR, MARIANNA 682.9 Cellulitis/abscess 05/14/2012 GOVIND RAW SCALES OPERATOR, MARIANNA 682.9 Cellulitis/abscess 06/24/2012 BRANDEE RAW SCALES OPERATOR, HEATHER 112.1 Candidiasis, Of Vulva And Vagina 06/24/2012 BRANDEE RAW SCALES OPERATOR, HEATHER 112.1 Candidiasis, Of Vulva And Vagina 06/24/2012 BRANDEE RAW SCALES OPERATOR, HEATHER 112.1 Candidiasis, Of Vulva And Vagina 06/24/2012 BRANDEE RAW SCALES OPERATOR, HEATHER 112.1 Candidiasis, Of Vulva And Vagina 06/24/2012 BRANDEE RAW SCALES OPERATOR, HEATHER 112.1 Candidiasis, Of Vulva And Vagina 06/24/2012 BRANDEE RAW SCALES OPERATOR, HEATHER 112.1 Candidiasis, Of Vulva And Vagina 06/24/2012 BRANDEE RAW SCALES OPERATOR, HEATHER 112.1 Candidiasis, Of Vulva And Vagina 06/24/2012 GOVIND RAW SCALES OPERATOR, MARIANNA 112.1 Candidiasis, Of Vulva And Vagina 06/24/2012 GOVIND RAW SCALES OPERATOR, MARIANNA 112.1 Candidiasis, Of Vulva And Vagina 06/28/2012 BRANDEE RAW SCALES OPERATOR, HEATHER 110.1 Onychomycosis 06/28/2012 BRANDEE RAW SCALES OPERATOR, HEATHER 703.8 Other Specified Diseases Of Nail 06/28/2012 BRANDEE RAW SCALES OPERATOR, HEATHER 110.1 Onychomycosis 06/28/2012 BRANDEE RAW SCALES OPERATOR, HEATHER 703.8 Other Specified Diseases Of Nail 06/28/2012 BRANDEE RAW SCALES OPERATOR, HEATHER 110.1 Onychomycosis 06/28/2012 BRANDEE RAW SCALES OPERATOR, HEATHER 703.8 Other Specified Diseases Of Nail 06/28/2012 BRANDEE RAW SCALES OPERATOR, HEATHER 110.1 Onychomycosis 06/28/2012 BRANDEE RAW SCALES OPERATOR, HEATHER 703.8 Other Specified Diseases Of Nail 06/28/2012 BRANDEE RAW SCALES OPERATOR, HEATHER 110.1 Onychomycosis 06/28/2012 BRANDEE RAW SCALES OPERATOR, HEATHER 703.8 Other Specified Diseases Of Nail 06/28/2012 BRANDEE RAW SCALES OPERATOR, HEATHER 110.1 Onychomycosis 06/28/2012 BRANDEE RAW SCALES OPERATOR, HEATHER 703.8 Other Specified Diseases Of Nail 06/28/2012 BRANDEE RAW SCALES OPERATOR, HEATHER 110.1 Onychomycosis 06/28/2012 BRANDEE RAW SCALES OPERATOR, HEATHER 703.8 Other Specified Diseases Of Nail 06/28/2012 GOVIND RAW SCALES OPERATOR, MARIANNA 110.1 Onychomycosis 06/28/2012 GOVIND RAW SCALES OPERATOR, MARIANNA 703.8 Other Specified Diseases Of Nail 06/28/2012 GOVIND RAW SCALES OPERATOR, MARIANNA 110.1 Onychomycosis 06/28/2012 GOVIND RAW SCALES OPERATOR, MARIANNA 703.8 Other Specified Diseases Of Nail 08/21/2012 BRANDEE RAW SCALES OPERATOR, HEATHER 682.9 Cellulitis/abscess 08/21/2012 BRANDEE RAW SCALES OPERATOR, HEATHER V72.31 Gynecological Exam 08/21/2012 BRANDEE RAW SCALES OPERATOR, HEATHER 682.9 Cellulitis/abscess 08/21/2012 BRANDEE RAW SCALES OPERATOR, HEATHER V72.31 Gynecological Exam 08/21/2012 BRANDEE RAW SCALES OPERATOR, HEATHER 682.9 Cellulitis/abscess 08/21/2012 BRANDEE RAW SCALES OPERATOR, HEATHER V72.31 Gynecological Exam 08/21/2012 BRANDEE RAW SCALES OPERATOR, HEATHER 682.9 Cellulitis/abscess 08/21/2012 BRANDEE RAW SCALES OPERATOR, HEATHER V72.31 Gynecological Exam 08/21/2012 BRANDEE RAW SCALES OPERATOR, HEATHER 682.9 Cellulitis/abscess 08/21/2012 BRANDEE RAW SCALES OPERATOR, HEATHER V72.31 Gynecological Exam 08/21/2012 BRANDEE RAW SCALES OPERATOR, HEATHER 682.9 Cellulitis/abscess 08/21/2012 BRANDEE RAW SCALES OPERATOR, HEATHER V72.31 Gynecological Exam 08/21/2012 BRANDEE RAW SCALES OPERATOR, HEATHER 682.9 Cellulitis/abscess 08/21/2012 BRANDEE RAW SCALES OPERATOR, HEATHER V72.31 Gynecological Exam 08/21/2012 GOVIND RAW SCALES OPERATOR, MARIANNA 682.9 Cellulitis/abscess 08/21/2012 GOVIND RAW SCALES OPERATOR, MARIANNA V72.31 Gynecological Exam 08/21/2012 GOVIND RAW SCALES OPERATOR, MARIANNA 682.9 Cellulitis/abscess 08/21/2012 GOVIND RAW SCALES OPERATOR, MARIANNA V72.31 Gynecological Exam 10/08/2012 BRANDEE RAW SCALES OPERATOR, HEATHER 466.0 Bronchitis, Acute 10/08/2012 BRANDEE RAW SCALES OPERATOR, HEATHER 466.0 Bronchitis, Acute 10/08/2012 BRANDEE RAW SCALES OPERATOR, HEATHER 466.0 Bronchitis, Acute 10/08/2012 BRANDEE RAW SCALES OPERATOR, HEATHER 466.0 Bronchitis, Acute 10/08/2012 BRANDEE RAW SCALES OPERATOR, HEATHER 466.0 Bronchitis, Acute 10/08/2012 BRANDEE RAW SCALES OPERATOR, HEATHER 466.0 Bronchitis, Acute 10/08/2012 BRANDEE RAW SCALES OPERATOR, HEATHER 466.0 Bronchitis, Acute 10/08/2012 GOVIND RAW SCALES OPERATOR, MARIANNA 466.0 Bronchitis, Acute 10/08/2012 GOVIND RAW SCALES OPERATOR, MARIANNA 466.0 Bronchitis, Acute 12/05/2012 BRANDEE RAW SCALES OPERATOR, HEATHER 599.0 Uti 12/05/2012 BRANDEE RAW SCALES OPERATOR, HEATHER 599.0 Uti 12/05/2012 BRANDEE RAW SCALES OPERATOR, HEATHER 599.0 Uti 12/05/2012 BRANDEE RAW SCALES OPERATOR, HEATHER 599.0 Uti 12/05/2012 BRANDEE RAW SCALES OPERATOR, HEATHER 599.0 Uti 12/05/2012 BRANDEE RAW SCALES OPERATOR, HEATHER 599.0 Uti 12/05/2012 BRANDEE RAW SCALES OPERATOR, HEATHER 599.0 Uti 12/05/2012 GOVIND RAW SCALES OPERATOR, MARIANNA 599.0 Uti 12/05/2012 GOVIND RAW SCALES OPERATOR, MARIANNA 599.0 Uti 05/21/2013 BRANDEE RAW SCALES OPERATOR, HEATHER 285.9 ANEMIA, UNSPECIFIED 05/21/2013 BRANDEE RAW SCALES OPERATOR, HEATHER 285.9 ANEMIA, UNSPECIFIED 05/21/2013 BRANDEE RAW SCALES OPERATOR, HEATHER 285.9 ANEMIA, UNSPECIFIED 05/21/2013 BRANDEE RAW SCALES OPERATOR, HEATHER 285.9 ANEMIA, UNSPECIFIED 05/21/2013 BRANDEE RAW SCALES OPERATOR, HEATHER 285.9 ANEMIA, UNSPECIFIED 05/21/2013 BRANDEE RAW SCALES OPERATOR, HEATHER 285.9 ANEMIA, UNSPECIFIED 05/21/2013 BRANDEE RAW SCALES OPERATOR, HEATHER 285.9 ANEMIA, UNSPECIFIED 05/21/2013 GOVIND RAW SCALES OPERATOR MARIANNA 285.9 ANEMIA, UNSPECIFIED 08/07/2013 BRANDEE RAW SCALES OPERATOR, HEATHER 682.5 CELLULITIS AND ABSCESS OF BUTTOCK 08/07/2013 BRANDEE RAW SCALES OPERATOR, HEATHER 682.5 CELLULITIS AND ABSCESS OF BUTTOCK 08/07/2013 BRANDEE RAW SCALES OPERATOR, HEATHER 682.5 CELLULITIS AND ABSCESS OF BUTTOCK 08/07/2013 BRANDEE RAW SCALES OPERATOR, HEATHER 682.5 CELLULITIS AND ABSCESS OF BUTTOCK 08/07/2013 BRANDEE RAW SCALES OPERATOR, HEATHER 682.5 CELLULITIS AND ABSCESS OF BUTTOCK 08/07/2013 BRANDEE RAW SCALES OPERATOR, HEATHER 682.5 CELLULITIS AND ABSCESS OF BUTTOCK 08/07/2013 BRANDEE RAW SCALES OPERATOR, HEATHER 682.5 CELLULITIS AND ABSCESS OF BUTTOCK 12/12/2013 BRANDEE RAW SCALES OPERATOR, HEATHER 250.02 DIABETES MELLITUS WITHOUT MENTION OF COMPLICATION TYPE II OR UNSPECIFIED TYPE UNCONTROLLED 12/12/2013 BRANDEE RAW SCALES OPERATOR, HEATHER 250.02 DIABETES MELLITUS WITHOUT MENTION OF COMPLICATION TYPE II OR UNSPECIFIED TYPE UNCONTROLLED 12/12/2013 BRANDEE RAW SCALES OPERATOR, HEATHER 250.02 DIABETES MELLITUS WITHOUT MENTION OF COMPLICATION TYPE II OR UNSPECIFIED TYPE UNCONTROLLED 12/12/2013 BRANDEE RAW SCALES OPERATOR, HEATHER 250.02 DIABETES MELLITUS WITHOUT MENTION OF [...] obesity due to excess calories 10/30/2018 Halle Zapata MD L08.9 Wound infection 10/30/2018 Halle Zapata MD C67.9 Bladder cancer 10/30/2018 Reason For Visit L08.9 Local infection of the skin and subcutaneous tissue, unspecified Procedures Code Description [place] [address] GLUCOSE 05/08/2013 25720 HEMOGLOBIN A1C 05/08/2013 G0008 ADMIN FEE (MEDICARE) INFLUENZA 05/14/2013 63835 CBC - CBC WITH DIFF - LC 05/15/2013 93922 COMP - COMPREHENSIVE PANEL - LC 05/15/2013 92782 LIPID - LIPID PANEL - LC 05/15/2013 98975 TSH - TSH - LC 05/15/2013 17568 MALB - MICROALBUMIN - LC 05/15/2013 28771 GLUCOSE 08/11/2013 90572 HEMOGLOBIN A1C 08/11/2013 26235 CBC WITH DIFF 08/12/2013 52298 GLUCOSE 10/07/2013 4000F TOBACCO USE TXMNT COUNSELING 10/13/2013 45567 PULSE OXIMETRY 12/12/2013 A4614 PEAK FLOW 12/12/2013 12273 GLUCOSE 12/12/2013 21804 HEMOGLOBIN A1C 12/12/2013 Pulmonary Pulmonary Function Test 01/13/2014 A4614 PEAK FLOW 02/10/2014 [id number] PULSE OXIMETRY 02/10/2014 [id number] GLUCOSE 02/10/2014 Endocrino Endocrinology 02/13/2014 Pulmonary Pulmonology, Pulmonology 03/13/2014 [id number] PULSE OXIMETRY 04/14/2014 A4614 PEAK FLOW 04/14/2014 [...] CHLORIDE 107 mmol/L 98-110 CO2 23 mmol/L - GFR ESTIMATED NOT AFR/AM >60 GFR ESTIMATED [...] 7-25 CREATININE 0.90 mg/dL 0.50-1.05 eGFR NON-AFR. COMORAN 74 mL/min/1.73m2 > OR=60 eGFR 86 mL/min/1.73m2 [...] RATIO, RANDOM URINE 13 mcg/mg creat <30 C Wound - 10/30/18 17:22 Pre Many Gram Positive Cocci Identification and susceptibility to follow. ORGANISM SA Final Many Staphylococcus aureus Gram Stain Moderate White Blood Cells .brMany Gram Positive Cocci KARINA - 10/30/18 17:22 Gent Trough <=0.5 ORGANISM SA Cipro <=0.5 Levo 0.25 SXT <=10 Clinda Dapto <=0.12 Doxy <=0.5 Eryth >=8 Linez 2 Moxi <=0.25 Ox <=0.25 Rif <=0.5 Tetra <=1 Tige <=0.12 Vanc <=0.5 Encounters ACCT No. Visit Date/Time Discharge Status Pt. Type Provider Facility Loc./Unit Complaint [id number] 10/30/2018 17:22:00 Document Registration [id number] 10/30/2018 17:22:00 Document Registration [id number] 08/26/2018 07:22:56 08/26/2018 23:59:59 DIS Outpatient DANAY SORIA V [facility] [id number] 05/30/2018 08:41:17 05/30/2018 23:59:59 DIS Outpatient LINDA ZAPATA [facility] [id number] 04/25/2018 12:24:37 04/25/2018 23:59:59 CLS Preadmit LINDA ZAPATA [facility] ops [id number] 11/13/2018 14:34:59 Document Registration [id number] 08/06/2018 13:35:03 Document Registration [id number] 07/05/2018 09:35:35 ACT V AMADOU ROBERT [facility] [id number] 06/18/2018 06:13:13 Inpatient LINDA ZAPATA [facility] ops [id number] 04/14/2014 08:59:00 04/14/2014 11:05:00 DIS Outpatient HEATHER IRVIN APRN [id number] 02/10/2014 09:57:00 02/10/2014 23:59:59 CLS Outpatient HEATHER IRVIN APRN [id number] 02/10/2014 09:57:00 02/10/2014 23:59:59 CLS Outpatient HEATHER IRVIN APRN [id number] 12/12/2013 10:38:00 12/12/2013 23:59:59 CLS Outpatient HEATHER IRVIN APRN [id number] 10/07/2013 14:37:00 10/13/2013 20:05:00 DIS Outpatient HEATHER IRVIN APRN [id number] 10/07/2013 14:37:00 10/07/2013 23:59:59 CLS Outpatient HEATHER IRVIN APRN [id number] 08/11/2013 10:11:00 08/11/2013 13:49:00 DIS Outpatient HEATHER IRVIN APRN [id number] 05/08/2013 09:56:00 05/08/2013 23:59:59 CLS Outpatient MARIANNA FAUST APRN [id number] 01/08/2013 08:25:00 01/08/2013 23:59:59 CLS Outpatient MARIANNA FAUST APRN [id number] 11/08/2018 15:22:59 ACT Document Registration [id number] 11/06/2018 17:00:00 11/06/2018 23:59:59 CLS [facility] [id number] 10/07/2018 13:15:00 Document Registration [id number] 09/25/2018 09:45:00 Document Registration [id number] 11/28/2018 10:33:05 ACT Unknown Halle Zapata MD [id number] 10/15/2014 15:34:45 10/15/2014 23:59:00 DIS Outpatient SONY CAMPO [facility] [id number] 08/12/2014 12:31:00 08/12/2014 14:34:00 DIS Emergency [facility] [id number] 06/21/2014 16:47:00 06/21/2014 17:52:00 DIS Emergency [facility] FED [id number] 09/02/2014 00:00:00 Document Registration
[2018-11-29] MEDS ORDERED: NS IV 1000 ML 1,000 ML IV SCH ×4 (09:15→13:15)
[2018-11-29 09:58] LABS: POTASSIUM 4.5 MMOL/L (3.6-5.0)
[2018-11-29 09:59] LABS: CALCIUM 8.1 MG/DL (8.5-10.1); CREATININE SERUM 3.51 MG/DL (0.60-1.30); MAGNESIUM 1.8 MG/DL (1.8-2.4)
[2018-11-29 10:00] LABS: BILIRUBIN,TOTAL 0.3 MG/DL (0.1-1.0); TOTAL PROTEIN 6.1 GM/DL (6.4-8.2)
[2018-11-29 10:01] LABS: HEMATOCRIT 31 % (35-52); HEMOGLOBIN 9.3 G/DL (11.5-16.0); MEAN CORPUSCULAR HEMOGLOBIN 28 PG (25-34); MEAN CORPUSCULAR VOLUME 93 FL (80-99); WHITE BLOOD COUNT 11.6 10^3/uL (4.3-11.0)
[2018-11-29 10:02] LABS: BASOPHILS # (AUTO) 0.1 10^3/uL (0.0-0.1); BASOPHILS % (AUTO) 1 % (0-10); EOSINOPHILS # (AUTO) 1.1 10^3/uL (0.0-0.3); EOSINOPHILS % (AUTO) 9 % (0-10); LYMPHOCYTES # (AUTO) 1.5 X 10^3 (1.0-4.0); LYMPHOCYTES % (AUTO) 13 % (12-44); MEAN CORPUSCULAR HGB CONC 30 G/DL (32-36); MEAN PLATELET VOLUME 9.9 FL (7.4-10.4); MONOCYTES # (AUTO) 0.8 X 10^3 (0.0-1.0); MONOCYTES % (AUTO) 7 % (0-12); NEUTROPHILS # (AUTO) 8.1 X 10^3 (1.8-7.8); NEUTROPHILS % (AUTO) 70 % (42-75); PLATELET COUNT 233 10^3/uL (130-400); RED CELL DISTRIBUTION WIDTH 22.8 % (10.0-14.5)
[2018-11-29 10:37] LABS: COLOR,URINE AMBER
[2018-11-29 10:38] LABS: BACTERIA,URINE FEW /HPF; BILIRUBIN,URINE NEGATIVE (NEGATIVE); CLARITY,URINE CLEAR; GLUCOSE, URINE (UA) NEGATIVE (NEGATIVE); KETONES,URINE NEGATIVE (NEGATIVE); LEUKOCYTE ESTERASE ,URINE 1+ (NEGATIVE); NITRITE,URINE POSITIVE (NEGATIVE); PH,URINE 5.5 (5-9); PROTEIN,URINE NEGATIVE (NEGATIVE); SQUAMOUS EPITHELIAL CELL,UR RARE /HPF; UROBILINOGEN,URINE 0.2 MG/DL (NORMAL)
[2018-11-29 10:39] LABS: AMORPHOUS SEDIMENT,UR FEW AMOR URATES /LPF; HYALINE CASTS, URINE RARE /LPF
--- NOTE | 2018-11-29 11:23 | ED General ---
General Chief Complaint: - Urinary Stated Complaint: URINARY RETENTION Nursing Triage Note: Patient reports she had surgery at [place] with Dr. Sahni on Sunday to have tumors removed from her bladder. She states she has not urinated since surgery and her abdominal pain has worsened. She states she called Dr. Sahni's office, they stated Dr. Sahni was not in today, she then called per PCP, who referred her to the ED here in [place]. Nursing Sepsis Screen: No Definite Risk Source of Information: Patient History of Present Illness Date Seen by Provider: November 29, 2018 Time Seen by Provider: 09:34 Initial Comments 53 yo F presenting with complaints of not urinating since being discharged at 1 pm yesterday after bladder surgery by Dr. Sahni. 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 Since then she had tumors in her bladder that he resected on Sunday. Since going home on she has not been able to urinate and she has been eating and drinking without difficulty. she has had no problems with bowel movements. She has some nausea but no vomiting. She has no diarrhea. She has mild pelvic pain. She tried calling Dr. Sahni but he is out of the office until next week. She denies Fever or chills Allergies and Home Medications Allergies Coded Allergies: No Known Drug Allergies (Unverified , 10/16/18) Patient Home Medication List Home Medication List Reviewed: Yes Review of Systems Review of Systems Constitutional: No chills; dizziness (with standing); No fever EENTM: no symptoms reported Respiratory: no symptoms reported Cardiovascular: no symptoms reported Gastrointestinal: No constipation, No diarrhea; nausea; No vomiting Genitourinary: decreased output (no urination since discharge from hospital) Musculoskeletal: no symptoms reported Skin: no symptoms reported Psychiatric/Neurological: No Symptoms Reported Past Roeudnz-Qwoyui-Kwrtzk Hx Past Med/Social Hx: Reviewed Nursing Past Med/Soc Hx Patient Social History Drug of Choice: marijuana Type Used: Cigarettes 2nd Hand Smoke Exposure: Yes Recent Foreign Travel: No Contact w/Someone Who Travel: No Recent Infectious Disease Expo: No Recent Hopitalizations: No Seasonal Allergies Seasonal Allergies: No Past Medical History Surgeries: Yes Abdominal, Hysterectomy, Nephrectomy, Tonsillectomy, Tubal Ligation Respiratory: Yes Asthma Currently Using CPAP: No Currently Using BIPAP: No Cardiac: No Hypertension Neurological: No 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 has multiple lesions on her abd and under the folds.) Blood Disorders: No Adverse Reaction/Blood Tranf: No Physical Exam Vital Signs Vital Signs - First Documented 11/29/18 11/29/18 10:34 16:55 Temp 97.1 Pulse 70 Resp 16 B/P (MAP) 75/46 (56) Pulse Ox 96 O2 Delivery Room Air Capillary Refill : Less Than 3 Seconds Height, Weight, BMI Height: 5'7.00" Weight: 222lbs. 0oz. 100.398809sh; BMI Method:Stated General Appearance: No Apparent Distress, WD/WN, Obese HEENT: PERRL/EOMI; No Moist Mucous Membranes (dry mucous membranes) Neck: Full Range of Motion, Non Tender, Supple Respiratory: Chest Non Tender, Lungs Clear, No Accessory Muscle Use, No Respiratory Distress Cardiovascular: Regular Rate, Rhythm, Normal Peripheral Pulses Gastrointestinal: No Pulsatile Mass, Soft; No Distended, No Rebound; Other (obese abdomen. Tender to palpation over pelvis/suprapubic area) Rectal: Deferred Extremity: Normal Range of Motion, Non Tender, No Calf Tenderness, Slow Capillary Refill Neurologic/Psychiatric: Alert, Oriented x3 Skin: Normal Color, Warm/Dry Focused Exam Lactate Level 11/29/18 09:20: Lactic Acid Level 1.63 Lactic Acid Level Progress/Results/Core Measures Suspected Sepsis Recent Fever Within 48 Hours: No Infection Criteria Present: Suspected New Infection New/Unexplained Altered Menta: No Sepsis Screen: No Definite Risk SIRS Temperature:97.1 Pulse: 70 Respiratory Rate: 16 Laboratory Tests 11/29/18 09:20: White Blood Count 11.6H Blood Pressure 75 /46 Mean: 56 11/29/18 09:20: Lactic Acid Level 1.63 Laboratory Tests 11/29/18 09:20: Creatinine 3.51H, Platelet Count 233, Total Bilirubin 0.3 Results/Orders Lab Results Laboratory Tests Test 11/29/18 09:20 11/29/18 10:10 Range/Units White Blood Count 11.6 H 4.3-11.0 10^3/uL Red Blood Count 3.33 L 4.35-5.85 10^6/uL Hemoglobin 9.3 L 11.5-16.0 G/DL Hematocrit 31 L 35-52 % Mean Corpuscular Volume 93 80-99 FL Mean Corpuscular Hemoglobin 28 25-34 PG Mean Corpuscular Hemoglobin Concent 30 L 32-36 G/DL Red Cell Distribution Width 22.8 H 10.0-14.5 % Platelet Count 233 130-400 10^3/uL Mean Platelet Volume 9.9 7.4-10.4 FL Neutrophils (%) (Auto) 70 42-75 % Lymphocytes (%) (Auto) 13 12-44 % Monocytes (%) (Auto) 7 0-12 % Eosinophils (%) (Auto) 9 0-10 % Basophils (%) (Auto) 1 0-10 % Neutrophils # (Auto) 8.1 H 1.8-7.8 X 10^3 Lymphocytes # (Auto) 1.5 1.0-4.0 X 10^3 Monocytes # (Auto) 0.8 0.0-1.0 X 10^3 Eosinophils # (Auto) 1.1 H 0.0-0.3 10^3/uL Basophils # (Auto) 0.1 0.0-0.1 10^3/uL Sodium Level 133 L 135-145 MMOL/L Potassium Level 4.5 3.6-5.0 MMOL/L Chloride Level 97 L 98-107 MMOL/L Carbon Dioxide Level 18 L 21-32 MMOL/L Anion Gap 18 H 5-14 MMOL/L Blood Urea Nitrogen 35 H 7-18 MG/DL Creatinine 3.51 H 0.60-1.30 MG/DL Estimat Glomerular Filtration Rate 14 BUN/Creatinine Ratio 10 Glucose Level 157 H 70-105 MG/DL Lactic Acid Level 1.63 0.50-2.00 MMOL/L Calcium Level 8.1 L 8.5-10.1 MG/DL Corrected Calcium 8.9 8.5-10.1 MG/DL Magnesium Level 1.8 1.8-2.4 MG/DL Total Bilirubin 0.3 0.1-1.0 MG/DL Aspartate Amino Transf (AST/SGOT) 9 5-34 U/L Alanine Aminotransferase (ALT/SGPT) 10 0-55 U/L Alkaline Phosphatase 80 40-136 U/L Total Protein 6.1 L 6.4-8.2 GM/DL Albumin 3.0 L 3.2-4.5 GM/DL Lipase 26 8-78 U/L Urine Color AKBAR H Urine Clarity CLEAR Urine pH 5.5 5-9 Urine Specific [place] 1.010 L 1.016-1.022 Urine Protein NEGATIVE NEGATIVE Urine Glucose (UA) NEGATIVE NEGATIVE Urine Ketones NEGATIVE NEGATIVE Urine Nitrite POSITIVE H NEGATIVE Urine Bilirubin NEGATIVE NEGATIVE Urine Urobilinogen 0.2 NORMAL MG/DL Urine Leukocyte Esterase 1+ H NEGATIVE Urine RBC (Auto) 1+ H NEGATIVE Urine RBC 2-5 H /HPF Urine WBC 10-25 H /HPF Urine Squamous Epithelial Cells RARE /HPF Urine Crystals PRESENT H /LPF Urine Amorphous Sediment FEW VENU URATES H /LPF Urine Bacteria FEW H /HPF Urine Casts PRESENT /LPF Urine Hyaline Casts RARE /LPF Urine Mucus SMALL H /LPF Urine Culture Indicated YES My Orders Orders - DIANE DELCID MD Bladder Scan (11/29/18 09:02) Comprehensive Metabolic Panel (11/29/18 09:02) Lipase (11/29/18 09:02) Ua Culture If Indicated (11/29/18 09:02) Ed Iv/Invasive Line Start (11/29/18 09:02) Cbc With Automated Diff (11/29/18 09:02) Ns Iv 1000 Ml (Sodium Chloride 0.9%) (11/29/18 09:15) Blood Culture (11/29/18 09:02) Magnesium (11/29/18 09:02) Lactic Acid Analyzer (11/29/18 09:02) Ns Iv 1000 Ml (Sodium Chloride 0.9%) (11/29/18 10:00) Maurer Cath (11/29/18 09:56) Urine Culture (11/29/18 10:10) Ns Iv 1000 Ml (Sodium Chloride 0.9%) (11/29/18 11:30) Ns Iv 1000 Ml (Sodium Chloride 0.9%) (11/29/18 13:15) Norepinephrine (Levophed) (11/29/18 13:15) Vital Signs/I&O 11/30/18 00:00 Intake Total 1000 ml Output Total 800 ml Balance 200 ml Capillary Refill : Less Than 3 Seconds Blood Pressure Mean: 56 Progress Note #1: Progress Note initial blood pressure is low despite pt being alert and talking as well as walking to the room with no difficulty. she does report being dizzy and light headed. Bladder scan shows only 120 ml of urine in her bladder. Will obtain a maurer catheter to determine exact output and initiate IVF through port and peripheral IV. Progress Note #2: Progress Note Maurer cath confirms pt only has small amt of urine present in her bladder. She has improved her blood pressure and urine output with IVF boluses and is feeling better. Labs show that she has stable CBC for her but she has elevated BUN and Cr to go with acute renal failure. Hopefully this is more of a prerenal ARF but difficult to say at this point. She has no signs of obstructive renal failure with her producing clear yellow urine and no clots or bloody urine with her maurer. Will check with [facility] about admit for hydration and monitoring Progress Note #3: Progress Note d/w Dr. Dickens as the soapstoner doctor for [facility] and with no Nephrology coverage and pt having only 1 kidney and now in ARF, it was felt that she would be better served to go to a hospital where renal services were at least available in case she had worsening condition instead of hoping that she g ot better with fluids and then finding out that she was actually getting worse and needed intervention sooner. The patient requests [facility] as her second choice for transfer as she has worked with the doctors there and recently been there as well. Progress Note #4: Progress Note I made arrangements with [facility] for the patient to go to [place] for admit. Since her blood pressure was not staying up without continued IVF bolus I did add in Levophed for pressure support. After adding this to her treatment along with IVF she had improved blood pressure. She was already feeling better with the fluids and continued to improve as the pressors were added. Departure Impression Primary Impression: Acute renal failure Qualified Codes: N17.9 - Acute kidney failure, unspecified Additional Impression: Hypotension due to hypovolemia Disposition: 02 XFER SHT-TRM HOSP Condition: Improved Transfer Time Spoke to Accepting Phy: 13:24 Transfer Progress Notes At 1141 I spoke with FABIO Gunn, at [facility] center. He was taking the basic information on the patient for possible transfer. He requested that the patient be run by Dr. Sahni the urologist that had just her surgery to verify that he did not want to admit her locally somewhere. [address] Sahni in verifying that he was flying out of town this weekend and was not available to admit the patient as well as finding out that he did not feel that his surgery would have caused any acute renal failure for the patient. He stated that he had removed some tumors from the bladder and he had irrigated the bladder with mitomycin but had not gotten up near the kidney itself. 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 He agreed that it sounded like she needed admission and hopefully this was all prerenal acute renal failure and that she would respond with hydration but only having one kidney she would need to be admitted and monitored to ensure that she did not have damage so that kidney. I passed this on to Luis A at the transfer center and he advised me that he would work on finding a bed for the patient with the medical service. The patient did seem to be responding to the hydration and was having good urine output. 1301 the patient's blood pressure was dropping back down into the 80s when she was not having fluids continuously infusing and so I need to start a vasopressor such as levo fed. I called to transfer center to update them on the patient status so that she can be changed over to an ICU attending and bed status. 1324 the transfer center called back with the attending Dr. Tom Agarwal and a room assignment for the patient. Transfer Facility: [facility] Method of Transfer: EMS Departure-Patient Inst. Referrals: PRIYA LIRIANO (PCP/Family) Primary Care Physician DIANE DELCID MD November 29, 2018 11:23
[2018-11-29] MEDS ORDERED: NOREPINEPHRINE 4 MG in NS (IVPB) 250 ML IV SCH (13:15)
--- NOTE | 2018-11-29 13:24 | NUR ---
[facility] unable to accept patient d/t lack of nephrology services. Patient's next preference is to be transferred to . Dr. Tom Agarwal at to accept patient, room number BH-6508, # for report [phone], transfer center # [phone].
--- NOTE | 2018-11-29 14:32 | NUR ---
[facility] EMS services needed for another patient transfer with higher acuity level. [facility] called at [phone], they do not have a crew available. [facility] called, they have a crew available and will be here at approximately [phone]. Patient updated on transfer arrangements.
[2018-11-29 16:55] VITALS: BP 142/83
--- NOTE | 2018-11-29 17:53 | NUR ---
[facility] called and stated bed assignment had changed, report given to FABIO Lan.
== END 2018-11-29 16:55 | disposition short-term general hospital (02) ==
LOC: EDUNIT# 08:32 → ER FS 08:34
DX: N17.9 Acute kidney failure, unspecified (principal); I95.9 Hypotension, unspecified; E86.1 Hypovolemia; J45.909 Unspecified asthma, uncomplicated; I10 Essential (primary) hypertension; E11.9 Type 2 diabetes mellitus without complications; Z92.21 Personal history of antineoplastic chemotherapy; Z98.890 Other specified postprocedural states; Z90.5 Acquired absence of kidney; Z85.528 Personal history of other malignant neoplasm of kidney; Z77.22 Contact with and (suspected) exposure to environmental tobacco smoke (acute) (chronic); Z90.710 Acquired absence of both cervix and uterus; Z98.51 Tubal ligation status; Z90.89 Acquired absence of other organs
CPT/HCPCS: 36415; 51702; 80053; 81000; 83605; 83690; 83735; 85025; 87040; 87088

== ENCOUNTER → 2018-12-12 | Outpatient (CLI) | payer MEDICARE, MEDICAID ==
--- NOTE | 2018-12-12 14:23 | Diagnostic Imaging Report ---
INDICATION: Lower abdominal pain and pressure. TIME OF EXAM: 02:03 p.m. FINDINGS: No free air is identified. There is somewhat of a paucity of abdominal bowel gas. This can be seen with fluid-filled loops of bowel. Surgical clips are identified in the right abdomen. No pathologic ossifications are seen. IMPRESSION: Paucity of abdominal bowel gas which can be seen with multiple fluid-filled bowel loops. CT may be useful for further evaluation. No other significant abnormality is seen. Dictated by: Dictated on workstation # [id number]
== END ==
LOC: RAD 13:47
PROVIDERS: ATTEND Family Medicine
DX: R10.84 Generalized abdominal pain (principal)
CPT/HCPCS: 74019

== ENCOUNTER 2018-12-14 14:20 | Emergency (ER) | payer MEDICARE, MEDICAID ==
[~2018-12-14] VITALS: Ht 170.2 cm; Wt 108.4 kg
[2018-12-14] MEDS ORDERED: morphine IMMEDIATE RELEASE 15 MG TABLET PO ONE (15:15)
[2018-12-14] MEDS ORDERED: oxyCODONE/APAP 5/325MG (PERCOCET 5) TABLET PO ONE (15:15)
--- NOTE | 2018-12-14 15:27 | ED GU-Female ---
General Chief Complaint: Abdominal/GI Problems Stated Complaint: ABD PAIN,VAGINAL PAIN FROM CATHETER History of Present Illness Date Seen by Provider: Dec 14, 2018 Time Seen by Provider: 03:10 Initial Comments The patient is a 53-year-old female with a history of hypertension, hyperlipidemia, insulin-dependent diabetes, bipolar disorder, history of renal and ureteral cancer with a nephrectomy completed last year and more recently with 2 bladder tumors which were resected about 2 weeks ago. Shortly after the surgery she presented to this emergency department complaining of decreased urination and nausea with suprapubic discomfort and was found to have pyelonephritis and was transferred up to [facility] for further care. She was released with oral antibiotics and completed these. Ever since her release from [facility] she has had an indwelling Sherman and has had persistent suprapubic discomfort. She visited her new primary care doctor 2 days ago who placed her on tramadol and provided her with a bowel regimen for this discomfort. She states the tramadol is not helping too much. She presents with continued suprapubic discomfort. She states this pain is the same pain she has had ever since she was released from [facility] and it is no worse, just not a lot better on the tramadol she was artery prescribed. She presents requesting something better for pain control. Otherwise she denies specific symptoms and specifically denies fevers, nausea or vomiting, cough, shortness of breath or chest pain, upper or right-sided abdominal pain, flank pain, back pain, hematuria, changes in bowel habits. She states she feels entirely well aside from persistent discomfort and is just hoping to get something stronger for her persistent pain since her last hospi talization. She does have close follow-up with her primary as well as urology follow-up scheduled later this month. Allergies and Home Medications Allergies Coded Allergies: No Known Drug Allergies (Unverified , 10/16/18) Patient Home Medication List Home Medication List Reviewed: Yes Review of Systems Review of Systems Constitutional: see HPI All Other Systemes Reviewed Negative Unless Noted: Yes Past Qxnnlet-Suhwsc-Lxxynj Hx Past Med/Social Hx: Reviewed Nursing Past Med/Soc Hx Patient Social History Drug of Choice: marijuana Type Used: Cigarettes 2nd Hand Smoke Exposure: Yes Recent Hopitalizations: No Seasonal Allergies Seasonal Allergies: No Past Medical History Surgeries: Yes Abdominal, Hysterectomy, Nephrectomy, Tonsillectomy, Tubal Ligation Respiratory: Yes Asthma Currently Using CPAP: No Currently Using BIPAP: No Cardiac: No Hypertension Neurological: No 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 has multiple lesions on her abd and under the folds.) Blood Disorders: No Adverse Reaction/Blood Tranf: No Family Medical History Reviewed Nursing Family Hx Physical Exam Vital Signs Vital Signs - First Documented 12/14/18 14:45 Temp 97.0 Pulse 93 Resp 20 B/P (MAP) 135/79 (97) Pulse Ox 94 O2 Delivery Room Air Capillary Refill : Height, Weight, BMI Height: 5'7.00" Weight: 222lbs. 0oz. 100.011759eh; BMI Method:Stated General Appearance: no apparent distress This is an older female appearing nontoxic and in no acute distress. Head is normocephalic and atraumatic. Neck is supple and nontender. Oropharynx is moist. Lungs are clear to auscultation at all stations. There is normal S1 and S2 without rubs or gallops and capillary refill is appropriate, less than 2 seconds globally. Abdomen is soft, and nondistended with mild suprapubic tenderness to palpation without rebound or guarding. There is a Sherman catheter in place and there is a moderate amount of clear yellow urine without sediment in the catheter bag. Skin is warm and dry without cyanosis, clubbing or edema. Psychiatrically, the patient demonstrates appropriate mood and affect and is alert. Progress/Results/Core Measures Suspected Sepsis SIRS Temperature: Pulse: Respiratory Rate: Blood Pressure / Mean: Results/Orders Lab Results Laboratory Tests Test 12/14/18 15:18 12/14/18 15:27 Range/Units Urine Color YELLOW Urine Clarity SLT CLOUDY Urine pH 6.0 5-9 Urine Specific [place] 1.025 H 1.016-1.022 Urine Protein 1+ H NEGATIVE Urine Glucose (UA) 3+ H NEGATIVE Urine Ketones NEGATIVE NEGATIVE Urine Nitrite NEGATIVE NEGATIVE Urine Bilirubin NEGATIVE NEGATIVE Urine Urobilinogen 0.2 NORMAL MG/DL Urine Leukocyte Esterase TRACE H NEGATIVE Urine RBC (Auto) 1+ H NEGATIVE Urine RBC 5-10 H /HPF Urine WBC 10-25 H /HPF Urine Squamous Epithelial Cells 0-2 /HPF Urine Crystals NONE /LPF Urine Bacteria TRACE /HPF Urine Casts NONE /LPF Urine Mucus SMALL H /LPF Urine Culture Indicated YES Glucometer 243 H 70-110 MG/DL My Orders Orders - LUCÍA FUENTES MD Ua Culture If Indicated (12/14/18 15:12) Oxycodone/Apap 5/325mg Tablet (Percocet (12/14/18 15:15) Accucheck Stat ONCE (12/14/18 15:21) Urine Culture (12/14/18 15:18) Medications Given in ED Current Medications Medications Dose Ordered Sig/Yoselyn Route Start Time Stop Time Status Last Admin Dose Admin Oxycodone/ Acetaminophen 2 tab ONCE ONCE PO 12/14/18 15:15 12/14/18 15:16 DC 12/14/18 15:30 2 TAB Vital Signs/I&O 12/14/18 14:45 Temp 97.0 Pulse 93 Resp 20 B/P (MAP) 135/79 (97) Pulse Ox 94 O2 Delivery Room Air Capillary Refill : Progress Note : Time: 15:28 Progress Note Clinical examination is quite reassuring and vital signs are appropriate. Comorbid female who is somewhat more than 2 weeks status post what sounds like transurethral surgery for bladder tumor resection and with Sherman catheter in place presents with persistent suprapubic discomfort unchanged since the hospitalization 2 weeks ago. She is simply requesting something stronger for pain today and does not want a large workup completed. I counseled the patient that I was comfortable with this plan provided that we could test her urine to ensure resolution of infection. We will therefore check urinalysis and culture if indicated and give a dose of medication for discomfort and reevaluate. If workup reassuring, plan for discharge home with a trial of a stronger analgesic medication and instructions to follow up closely with primary care and also with her urologist within the next few daysshe is to call for a closer follow-up appointment. The patient understands and agrees with the plan of care. Update: Patient feels much better after medication here in the emergency department. Urinalysis with some mild evidence of continued infection and the patient did finish her last course of antibiotic several days ago. In view of continued suprapubic discomfort will go ahead and prescribe a course of levo floxacin and have her follow up closely with both her primary care physician and with her urologist as per plan above. She understands that if she feels worse instead of better she should return immediately for reevaluation. We'll discharge with a short course of stronger pain medication and she is to continue taking her bowel regimen as well. All questions are answered. We will proceed with discharge home at this time. Departure Impression Primary Impression: Acute cystitis with hematuria Disposition: HOME, SELF-CARE Condition: Improved Departure-Patient Inst. Referrals: MANASA WILCOX MD (PCP) Primary Care Physician PRIYA LIRIANO (Family) Primary Care Physician Patient Instructions: Urinary Tract Infection, Adult (DC) Scripts Levofloxacin (Levofloxacin) 750 Mg Tablet 750 MG PO DAILY for 5 Days, #5 TAB 0 Refills Prov: LUCÍA FUENTES MD 12/14/18 Oxycodone HCl/Acetaminophen (Percocet 5-325 mg Tablet) 1 Each Tablet 1 TAB PO Q4H PRN for PAIN-MODERATE MDD 6, #13 TAB 0 Refills Prov: LUCÍA FUENTES MD 12/14/18 LUCÍA FUENTES MD Dec 14, 2018 15:27
[2018-12-14 16:05] LABS: CLARITY,URINE SLT CLOUDY; COLOR,URINE YELLOW
[2018-12-14 16:06] LABS: BACTERIA,URINE TRACE /HPF; BILIRUBIN,URINE NEGATIVE (NEGATIVE); GLUCOSE, URINE (UA) 3+ (NEGATIVE); KETONES,URINE NEGATIVE (NEGATIVE); LEUKOCYTE ESTERASE ,URINE TRACE (NEGATIVE); NITRITE,URINE NEGATIVE (NEGATIVE); PROTEIN,URINE 1+ (NEGATIVE); SQUAMOUS EPITHELIAL CELL,UR 0-2 /HPF; UROBILINOGEN,URINE 0.2 MG/DL (NORMAL)
[2018-12-14] MEDS ORDERED: OXYC-199 PO (16:34)
[2018-12-14] MEDS ORDERED: LEVO750T39 PO (16:36)
[2018-12-14 16:46] VITALS: BP 121/73
[2018-12-14] MEDS ORDERED: CEPH-506 PO (16:52)
--- OUTSIDE RECORDS SUMMARY | 2018-12-14 19:37 | XMS REPORT | Clinical Summary ---
Author Author Admin, E Organization [facility] Address Unknown Phone Unavailable Allergies, Adverse [...] not elsewhere classified, initial encounter 998.13 Resolved aHrdeep Barker MD Seroma complicating a procedure Wound infection 958.3 Active Halle Sahni MD Posttraumatic wound infection not elsewhere classified Bladder cancer 188.9 Active Halle Sahni MD Malignant neoplasm of bladder, part unspecified Other microscopic hematuria ICD-599.70 Inactive Hardeep Barker MD Hydronephrosis, right ICD-591 Inactive Hardeep Barker MD Hematuria ICD-599.70 Inactive Hardeep Barker MD Hydronephrosis with ureteral stricture, not elsewhere classified ICD-591 Inactive Hardeep Barker MD BMI 36-36.9 Inactive [...] MG ORAL TABLET 1 tab BID SULFAMETHOXAZOLE-TRIMETHOPRIM 25735120235 No Longer Active Hardeep Barker MD Active LEVEMIR FLEXTOUCH 100 UNIT/ML SUBCUTANEOUS SOLUTION PEN-INJECTOR 100 units twice daily INSULIN DETEMIR 19498321801 Active Hardeep Barker MD Active NOVOLOG PENFILL 100 UNIT/ML SUBCUTANEOUS SOLUTION CARTRIDGE 50 units twice daily INSULIN ASPART 51835142072 Active Hardeep Barker MD Active GEODON 80 MG ORAL CAPSULE 2 cap at Bedtime ZIPRASIDONE HCL 98938731104 Active Hardeep Barker MD Active MECLIZINE HCL 12.5 MG ORAL TABLET MECLIZINE HCL 43537979897 No Longer Active Hardeep Barker MD Active LEVAQUIN 500 MG ORAL TABLET 1 tab twice daily LEVOFLOXACIN 68976823631 No Longer Active Halle Sahni MD Active DIFLUCAN 150 MG ORAL TABLET FLUCONAZOLE 93078455808 No Longer Active Halle Sahni MD Active LIPITOR 10 MG ORAL TABLET 1 tab by mouth daily ATORVASTATIN CALCIUM 18208943957 Active Halle Sahni MD Active BYSTOLIC 5 MG ORAL TABLET 1 tab by mouth daily NEBIVOLOL HCL 87814337408 Active Halle Sahni MD Active TRADJENTA 5 MG ORAL TABLET 1 tab by mouth daily LINAGLIPTIN 22538920615 Active Halle Sahni MD Active LISINOPRIL 5 MG ORAL TABLET 1 po qd LISINOPRIL 59453960910 Active Halle Sahni MD Active LEXAPRO 10 MG ORAL TABLET 1 tablet by mouth daily ESCITALOPRAM OXALATE 61274496548 Active Halle Sahni MD Active METFORMIN HCL 500 MG ORAL TABLET 1 tablet by mouth three times daily METFORMIN HCL 74034578127 Active Halle Sahni MD Active BACTRIM DS 800-160 MG ORAL TABLET 1 tab BID BACTRIM DS 800-160 MG ORAL TABLET 406701 SULFAMETHOXAZOLE-TRIMETHOPRIM Inactive MECLIZINE HCL 12.5 MG ORAL TABLET MECLIZINE HCL 12.5 MG ORAL TABLET 547609 MECLIZINE HCL Inactive DIFLUCAN 150 MG ORAL TABLET DIFLUCAN 150 MG ORAL TABLET 091615 FLUCONAZOLE Inactive LEVAQUIN 500 MG ORAL TABLET 1 tab twice daily LEVAQUIN 500 MG ORAL TABLET 669255 LEVOFLOXACIN Inactive Advance Directives Directive Description Start Date [...] negative Encounters Code Encounter Date Provider Facility CPT-06696 Level 3 Est. Patient 15:50:26 CDT Halle Sahni MD [facility] CPT-36454 Level 3 Est. Patient 11:10:51 MACHINE SEWER Hardeep Barker MD [facility] CPT-01790 Level 4 New Patient 16:02:27 MACHINE SEWER Hardeep Barker MD [facility] CPT-44572 Level 4 Est. Patient 13:31:38 MACHINE SEWER Halle Sahni MD [facility] CPT-08952 Level 3 Est. Patient 14:10:08 MACHINE SEWER Halle Sahni MD [facility] [place] CPT-05455 Level 3 Est. Patient 10:01:09 CDT Halle Sahni MD [facility] CPT-28454 Level 4 New Patient 16:33:13 CDT Halle Sahni [facility] Procedures Code Procedure Name Date Entry Date Standard Description CPT-86845 Cystoscopy 15:50:27 CDT CPT-14789 Postop F/U Visit 15:34:52 MACHINE SEWER CPT-20612 I/D hematoma seroma fld gauri 11:10:51 MACHINE SEWER CPT-70734 Postop F/U Visit 15:20:53 MACHINE SEWER CPT-84769 Postop F/U Visit 13:46:08 MACHINE SEWER
== END 2018-12-14 16:45 | disposition home or self-care (01) ==
LOC: EDUNIT# 14:20 → ER FS 14:21
DX: N30.01 Acute cystitis with hematuria (principal); I10 Essential (primary) hypertension; E78.5 Hyperlipidemia, unspecified; J45.909 Unspecified asthma, uncomplicated; E11.9 Type 2 diabetes mellitus without complications; F31.9 Bipolar disorder, unspecified; Z85.54 Personal history of malignant neoplasm of ureter; Z90.5 Acquired absence of kidney; Z87.442 Personal history of urinary calculi; Z87.440 Personal history of urinary (tract) infections; Z92.21 Personal history of antineoplastic chemotherapy; Z85.528 Personal history of other malignant neoplasm of kidney; Z98.51 Tubal ligation status; Z90.89 Acquired absence of other organs; Z90.710 Acquired absence of both cervix and uterus
CPT/HCPCS: 81000; 82962; 87088

== ENCOUNTER 2018-12-21 17:57 | Emergency (ER) | payer MEDICAID ==
[~2018-12-21] VITALS: Ht 170.2 cm; Wt 108.4 kg
[~2018-12-21 17:57] MED LIST changes: +CEPH-506 PO; +LEVO750T39 PO; +OXYC-199 PO
--- OUTSIDE RECORDS SUMMARY | 2018-12-21 18:02 | XMS REPORT | Clinical Summary ---
Author Author Admin, E Organization [employer] Address Unknown Phone Unavailable Allergies, Adverse Reactions, [...] MD Malignant neoplasm of bladder, part unspecified Nontraumatic bladder rupture 596.6 Active Halle Sahni MD Rupture of bladder, nontraumatic Other microscopic hematuria ICD-599.70 Inactive Hardeep Barker MD Hydronephrosis, right ICD-591 Inactive Hardeep Barker MD Hematuria ICD-599.70 Inactive Hardeep Barker MD Hydronephrosis with ureteral stricture, not elsewhere classified ICD-591 Inactive Hardeep Barker MD BMI 36-36.9 Inactive Nay Escamilla Hernia, Ventral 553.20 Inactive Hardeep Barker MD Morbid obesity due to excess calories ICD-278.00 Farhan Escamilla Other specified complications of surgical and medical care, not elsewhere classified, initial encounter ICD-998.13 Inactive Hardeep Barker MD Medication List Medication Instructions Start Date Stop Date Generic Name ND Status Provider Patient Instruction BACTRIM DS 800-160 MG ORAL TABLET 1 tab BID SULFAMETHOXAZOLE-TRIMETHOPRIM 55851044459 No Longer Active Hardeep Barker MD Active LEVEMIR FLEXTOUCH 100 UNIT/ML SUBCUTANEOUS SOLUTION PEN-INJECTOR 100 units twice daily INSULIN DETEMIR 18636464303 Active Hardeep Barker MD Active NOVOLOG PENFILL 100 UNIT/ML SUBCUTANEOUS SOLUTION CARTRIDGE 50 units twice daily INSULIN ASPART 32638432978 Active Hardeep Barker MD Active GEODON 80 MG ORAL CAPSULE 2 cap at Bedtime ZIPRASIDONE HCL 33894882796 Active Hardeep Barker MD Active MECLIZINE HCL 12.5 MG ORAL TABLET MECLIZINE HCL 47435848613 No Longer Active Hardeep Barker MD Active LEVAQUIN 500 MG ORAL TABLET 1 tab twice daily LEVOFLOXACIN 80937991350 No Longer Active Halle Sahni MD Active DIFLUCAN 150 MG ORAL TABLET FLUCONAZOLE 85354954603 No Longer Active Halle Sahni MD Active LIPITOR 10 MG ORAL TABLET 1 tab by mouth daily ATORVASTATIN CALCIUM 71749352202 Active Halle Sahni MD Active BYSTOLIC 5 MG ORAL TABLET 1 tab by mouth daily NEBIVOLOL HCL 72935318414 Active Halle Sahni MD Active TRADJENTA 5 MG ORAL TABLET 1 tab by mouth daily LINAGLIPTIN 05273192379 Active Halle Sahni MD Active LISINOPRIL 5 MG ORAL TABLET 1 po qd LISINOPRIL 55978442491 Active Halle Sahni MD Active LEXAPRO 10 MG ORAL TABLET 1 tablet by mouth daily ESCITALOPRAM OXALATE 80924921687 Active Halle Sahni MD Active METFORMIN HCL 500 MG ORAL TABLET 1 tablet by mouth three times daily METFORMIN HCL 16092150312 Active Halle Sahni MD Active DIFLUCAN 150 MG ORAL TABLET DIFLUCAN 150 MG ORAL TABLET 224873 FLUCONAZOLE Inactive LEVAQUIN 500 MG ORAL TABLET 1 tab twice daily LEVAQUIN 500 MG ORAL TABLET 874775 LEVOFLOXACIN Inactive MECLIZINE HCL 12.5 MG ORAL TABLET MECLIZINE HCL 12.5 MG ORAL TABLET 160366 MECLIZINE HCL Inactive BACTRIM DS 800-160 MG ORAL TABLET 1 tab BID BACTRIM DS 800-160 MG ORAL TABLET 057314 SULFAMETHOXAZOLE-TRIMETHOPRIM Inactive Advance Directives Directive Description Start [...] negative Encounters Code Encounter Date Provider Facility CPT-53887 Level 3 Est. Patient 15:50:26 CDT Halle Sahni MD [facility] CPT-34306 Level 3 Est. Patient 11:10:51 VENUE MANAGER Hardeep Barker MD [facility] CPT-43234 Level 4 New Patient 16:02:27 VENUE MANAGER Hardeep Barker MD [facility] CPT-55993 Level 4 Est. Patient 13:31:38 VENUE MANAGER Halle Sahni MD [facility] CPT-03742 Level 3 Est. Patient 14:10:08 VENUE MANAGER Halle Sahni MD [facility] [place] CPT-22856 Level 3 Est. Patient 10:01:09 CDT Halle Sahni MD [facility] CPT-18505 Level 4 New Patient 16:33:13 CDT Halle Sahni MD [facility] Procedures Code Procedure Name Date Entry Date Standard Description CPT-68229 Cystoscopy 15:50:27 CDT CPT-78440 Postop F/U Visit 15:34:52 VENUE MANAGER CPT-79381 I/D hematoma seroma fld gauri 11:10:51 VENUE MANAGER CPT-06755 Postop F/U Visit 15:20:53 VENUE MANAGER CPT-82845 Postop F/U Visit 13:46:08 VENUE MANAGER
--- OUTSIDE RECORDS SUMMARY | 2018-12-21 18:12 | XMS REPORT | Continuity of Care Document ---
Demographics Preferred Language Unknown Marital Status Unknown Protestant Affiliation Unknown Race Unknown Ethnic Group Unknown Author Organization Unknown Address Unknown Allergies Active Description Code Type Severity Reaction Onset Reported/Identified Relationship to Patient Clinical Status Yes No Known Medication Allergies Drug N/A N/A Yes No Known Drug Allergies [id number] Drug Allergy Unknown N/A 10/16/2018 Medications There is no data. Problems Date Dx Coded Attending Type Code Diagnosis Diagnosed By 07/05/2010 [facility] BACCARAT MANAGER, HEATHER 278.01 OBESITY MORBID 07/05/2010 [facility] BACCARAT MANAGER, HEATHER 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, Unspecified 07/05/2010 [facility] BACCARAT MANAGER, HEATHER V15.82 TOBACCOISM 07/05/2010 [facility] BACCARAT MANAGER, HEATHER 278.01 OBESITY MORBID 07/05/2010 [facility] BACCARAT MANAGER, HEATHER 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, Unspecified 07/05/2010 [facility] BACCARAT MANAGER, HEATHER V15.82 TOBACCOISM 07/05/2010 [facility] BACCARAT MANAGER, HEATHER 278.01 OBESITY MORBID 07/05/2010 [facility] BACCARAT MANAGER, HEATHER 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, Unspecified 07/05/2010 [facility] BACCARAT MANAGER, HEATHER V15.82 TOBACCOISM 07/05/2010 [facility] BACCARAT MANAGER, HEATHER 278.01 OBESITY MORBID 07/05/2010 [facility] BACCARAT MANAGER, HEATHER 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, Unspecified 07/05/2010 [facility] BACCARAT MANAGER, HEATHER V15.82 TOBACCOISM 07/05/2010 [facility] BACCARAT MANAGER, HEATHER 278.01 OBESITY MORBID 07/05/2010 [facility] BACCARAT MANAGER, HEATHER 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, Unspecified 07/05/2010 [facility] BACCARAT MANAGER, HEATHER V15.82 TOBACCOISM 07/05/2010 [facility] BACCARAT MANAGER, HEATHER 278.01 OBESITY MORBID 07/05/2010 [facility] BACCARAT MANAGER, HEATHER 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, Unspecified 07/05/2010 [facility] BACCARAT MANAGER, HEATHER V15.82 TOBACCOISM 07/05/2010 [facility] BACCARAT MANAGER, HEATHER 278.01 OBESITY MORBID 07/05/2010 [facility] BACCARAT MANAGER, HEATHER 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, Unspecified 07/05/2010 [facility] BACCARAT MANAGER, HEATHER V15.82 TOBACCOISM 07/05/2010 [facility] BACCARAT MANAGER, MARIANNA 278.01 OBESITY MORBID 07/05/2010 [facility] BACCARAT MANAGER, MARIANNA 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, Unspecified 07/05/2010 [facility] BACCARAT MANAGER, MARIANNA V15.82 TOBACCOISM 07/05/2010 [facility] BACCARAT MANAGER, MARIANNA 278.01 OBESITY MORBID 07/05/2010 [facility] BACCARAT MANAGER, MARIANNA 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, Unspecified 07/05/2010 [facility] BACCARAT MANAGER, MARIANNA V15.82 TOBACCOISM 07/07/2010 [facility] BACCARAT MANAGER, HEATHER 280.9 Anemia Hypochromic / Microcytic 07/07/2010 [facility] BACCARAT MANAGER, HEATHER 796.2 Prehypertension 07/07/2010 [facility] BACCARAT MANAGER, HEATHER V04.81 Influenza Vaccine 07/07/2010 [facility] BACCARAT MANAGER, HEATHER V68.89 Encounters For Other Specified Administrative Purpose 07/07/2010 [facility] BACCARAT MANAGER, HEATHER V72.31 Routine Pelvic Exam 07/07/2010 [facility] BACCARAT MANAGER, HEATHER 280.9 Anemia Hypochromic / Microcytic 07/07/2010 [facility] BACCARAT MANAGER, HEATHER 796.2 Prehypertension 07/07/2010 [facility] BACCARAT MANAGER, HEATHER V04.81 Influenza Vaccine 07/07/2010 [facility] BACCARAT MANAGER, HEATHER V68.89 Encounters For Other Specified Administrative Purpose 07/07/2010 [facility] BACCARAT MANAGER, HEATHER V72.31 Routine Pelvic Exam 07/07/2010 [facility] BACCARAT MANAGER, HEATHER 280.9 Anemia Hypochromic / Microcytic 07/07/2010 [facility] BACCARAT MANAGER, HEATHER 796.2 Prehypertension 07/07/2010 [facility] BACCARAT MANAGER, HEATHER V04.81 Influenza Vaccine 07/07/2010 [facility] BACCARAT MANAGER, HEATHER V68.89 Encounters For Other Specified Administrative Purpose 07/07/2010 [facility] BACCARAT MANAGER, HEATHER V72.31 Routine Pelvic Exam 07/07/2010 [facility] BACCARAT MANAGER, HEATHER 280.9 Anemia Hypochromic / Microcytic 07/07/2010 [facility] BACCARAT MANAGER, HEATHER 796.2 Prehypertension 07/07/2010 [facility] BACCARAT MANAGER, HEATHER V04.81 Influenza Vaccine 07/07/2010 [facility] BACCARAT MANAGER, HEATHER V68.89 Encounters For Other Specified Administrative Purpose 07/07/2010 [facility] BACCARAT MANAGER, HEATHER V72.31 Routine Pelvic Exam 07/07/2010 [facility] BACCARAT MANAGER, HEATHER 280.9 Anemia Hypochromic / Microcytic 07/07/2010 [facility] BACCARAT MANAGER, HEATHER 796.2 Prehypertension 07/07/2010 [facility] BACCARAT MANAGER, HEATHER V04.81 Influenza Vaccine 07/07/2010 [facility] BACCARAT MANAGER, HEATHER V68.89 Encounters For Other Specified Administrative Purpose 07/07/2010 [facility] BACCARAT MANAGER, HEATHER V72.31 Routine Pelvic Exam 07/07/2010 [facility] BACCARAT MANAGER, HEATHER 280.9 Anemia Hypochromic / Microcytic 07/07/2010 [facility] BACCARAT MANAGER, HEATHER 796.2 Prehypertension 07/07/2010 [facility] BACCARAT MANAGER, HEATHER V04.81 Influenza Vaccine 07/07/2010 [facility] BACCARAT MANAGER, HEATHER V68.89 Encounters For Other Specified Administrative Purpose 07/07/2010 [facility] BACCARAT MANAGER, HEATHER V72.31 Routine Pelvic Exam 07/07/2010 [facility] BACCARAT MANAGER, HEATHER 280.9 Anemia Hypochromic / Microcytic 07/07/2010 [facility] BACCARAT MANAGER, HEATHER 796.2 Prehypertension 07/07/2010 [facility] BACCARAT MANAGER, HEATHER V04.81 Influenza Vaccine 07/07/2010 [facility] BACCARAT MANAGER, HEATHER V68.89 Encounters For Other Specified Administrative Purpose 07/07/2010 [facility] BACCARAT MANAGER, HEATHER V72.31 Routine Pelvic Exam 07/07/2010 [facility] BACCARAT MANAGER, MARIANNA 280.9 Anemia Hypochromic / Microcytic 07/07/2010 [facility] BACCARAT MANAGER, MARIANNA 796.2 Prehypertension 07/07/2010 [facility] BACCARAT MANAGER, MARIANNA V04.81 Influenza Vaccine 07/07/2010 [facility] BACCARAT MANAGER, MARIANNA V68.89 Encounters For Other Specified Administrative Purpose 07/07/2010 [facility] BACCARAT MANAGER, MARIANNA V72.31 Routine Pelvic Exam 07/07/2010 [facility] BACCARAT MANAGER, MARIANNA 280.9 Anemia Hypochromic / Microcytic 07/07/2010 [facility] BACCARAT MANAGEREN SunshineE 796.2 Prehypertension 07/07/2010 [facility] BACCARAT MANAGERMARIANNA Sunshine V04.81 Influenza Vaccine 07/07/2010 [facility] BACCARAT MANAGERMARIANNA Sunshine V68.89 Encounters For Other Specified Administrative Purpose 07/07/2010 [facility] BACCARAT MANAGERMARIANNA V72.31 Routine Pelvic Exam 10/20/2010 [facility] BACCARAT MANAGER, HEATHER 112.1 Candidiasis, Of Vulva And Vagina 10/20/2010 [facility] BACCARAT MANAGER, HEATHER 599.0 Uti 10/20/2010 [facility] BACCARAT MANAGER, HEATHER 112.1 Candidiasis, Of Vulva And Vagina 10/20/2010 [facility] BACCARAT MANAGER, HEATHER 599.0 Uti 10/20/2010 [facility] BACCARAT MANAGER, HEATHER 112.1 Candidiasis, Of Vulva And Vagina 10/20/2010 [facility] BACCARAT MANAGER, HEATHER 599.0 Uti 10/20/2010 [facility] BACCARAT MANAGER, HEATHER 112.1 Candidiasis, Of Vulva And Vagina 10/20/2010 [facility] BACCARAT MANAGER, HEATHER 599.0 Uti 10/20/2010 [facility] BACCARAT MANAGER, HEATHER 112.1 Candidiasis, Of Vulva And Vagina 10/20/2010 [facility] BACCARAT MANAGER, HEATHER 599.0 Uti 10/20/2010 [facility] BACCARAT MANAGER, HEATHER 112.1 Candidiasis, Of Vulva And Vagina 10/20/2010 [facility] BACCARAT MANAGER, HEATHER 599.0 Uti 10/20/2010 [facility] BACCARAT MANAGER, HEATHER 112.1 Candidiasis, Of Vulva And Vagina 10/20/2010 [facility] BACCARAT MANAGER, HEATHER 599.0 Uti 10/20/2010 [facility] BACCARAT MANAGER, MARIANNA 112.1 Candidiasis, Of Vulva And Vagina 10/20/2010 [facility] BACCARAT MANAGER, MARIANNA 599.0 Uti 10/20/2010 [facility] BACCARAT MANAGER, MARIANNA 112.1 Candidiasis, Of Vulva And Vagina 10/20/2010 [facility] BACCARAT MANAGER, MARIANNA 599.0 Uti 10/24/2010 [facility] BACCARAT MANAGER, HEATHER 250.00 DIABETES MELLITUS TYPE 2 10/24/2010 [facility] BACCARAT MANAGER, HEATHER 466.0 Bronchitis, Acute 10/24/2010 [facility] BACCARAT MANAGER, HEATHER 496 PULMONARY OBSTRUCTIVE DISORDERS 10/24/2010 [facility] BACCARAT MANAGER, HEATHER 250.00 DIABETES MELLITUS TYPE 2 10/24/2010 [facility] BACCARAT MANAGER, HEATHER 466.0 Bronchitis, Acute 10/24/2010 [facility] BACCARAT MANAGER, HEATHER 496 PULMONARY OBSTRUCTIVE DISORDERS 10/24/2010 [facility] BACCARAT MANAGER, HEATHER 250.00 DIABETES MELLITUS TYPE 2 10/24/2010 [facility] BACCARAT MANAGER, HEATHER 466.0 Bronchitis, Acute 10/24/2010 [facility] BACCARAT MANAGER, HEATHER 496 PULMONARY OBSTRUCTIVE DISORDERS 10/24/2010 [facility] BACCARAT MANAGER, HEATHER 250.00 DIABETES MELLITUS TYPE 2 10/24/2010 [facility] BACCARAT MANAGER, HEATHER 466.0 Bronchitis, Acute 10/24/2010 [facility] BACCARAT MANAGER, HEATHER 496 PULMONARY OBSTRUCTIVE DISORDERS 10/24/2010 [facility] BACCARAT MANAGER, HEATHER 250.00 DIABETES MELLITUS TYPE 2 10/24/2010 [facility] BACCARAT MANAGER, HEATHER 466.0 Bronchitis, Acute 10/24/2010 [facility] BACCARAT MANAGER, HEATHER 496 PULMONARY OBSTRUCTIVE DISORDERS 10/24/2010 [facility] BACCARAT MANAGER, HEATHER 250.00 DIABETES MELLITUS TYPE 2 10/24/2010 [facility] BACCARAT MANAGER, HEATHER 466.0 Bronchitis, Acute 10/24/2010 [facility] BACCARAT MANAGER, HEATHER 496 PULMONARY OBSTRUCTIVE DISORDERS 10/24/2010 [facility] BACCARAT MANAGER, HEATHER 250.00 DIABETES MELLITUS TYPE 2 10/24/2010 [facility] BACCARAT MANAGER, HEATHER 466.0 Bronchitis, Acute 10/24/2010 [facility] BACCARAT MANAGER, HEATHER 496 PULMONARY OBSTRUCTIVE DISORDERS 10/24/2010 [facility] BACCARAT MANAGER, MARIANNA 250.00 DIABETES MELLITUS TYPE 2 10/24/2010 [facility] BACCARAT MANAGER, MARIANNA 466.0 Bronchitis, Acute 10/24/2010 [facility] BACCARAT MANAGER, MARIANNA 496 PULMONARY OBSTRUCTIVE DISORDERS 10/24/2010 [facility] BACCARAT MANAGER, MARIANNA 250.00 DIABETES MELLITUS TYPE 2 10/24/2010 [facility] BACCARAT MANAGER, MARIANNA 466.0 Bronchitis, Acute 10/24/2010 [facility] BACCARAT MANAGER, MARIANNA 496 PULMONARY OBSTRUCTIVE DISORDERS 05/12/2011 [facility] BACCARAT MANAGER, HEATHER 703.0 Ingrowing Nail 05/12/2011 [facility] BACCARAT MANAGER, HEATHER 726.91 EXOSTOSIS OF UNSPECIFIED SITE 05/12/2011 [facility] BACCARAT MANAGER, HEATHER 703.0 Ingrowing Nail 05/12/2011 [facility] BACCARAT MANAGER, HEATHER 726.91 EXOSTOSIS OF UNSPECIFIED SITE 05/12/2011 [facility] BACCARAT MANAGER, HEATHER 703.0 Ingrowing Nail 05/12/2011 [facility] BACCARAT MANAGER, HEATHER 726.91 EXOSTOSIS OF UNSPECIFIED SITE 05/12/2011 [facility] BACCARAT MANAGER, HEATHER 703.0 Ingrowing Nail 05/12/2011 [facility] BACCARAT MANAGER, HEATHER 726.91 EXOSTOSIS OF UNSPECIFIED SITE 05/12/2011 [facility] BACCARAT MANAGER, HEATHER 703.0 Ingrowing Nail 05/12/2011 [facility] BACCARAT MANAGER, HEATHER 726.91 EXOSTOSIS OF UNSPECIFIED SITE 05/12/2011 [facility] BACCARAT MANAGER, HEATHER 703.0 Ingrowing Nail 05/12/2011 [facility] BACCARAT MANAGER, HEATHER 726.91 EXOSTOSIS OF UNSPECIFIED SITE 05/12/2011 [facility] BACCARAT MANAGER, HEATHER 703.0 Ingrowing Nail 05/12/2011 [facility] BACCARAT MANAGER, HEATHER 726.91 EXOSTOSIS OF UNSPECIFIED SITE 05/12/2011 [facility] BACCARAT MANAGER, MARIANNA 703.0 Ingrowing Nail 05/12/2011 [facility] BACCARAT MANAGER, MARIANNA 726.91 EXOSTOSIS OF UNSPECIFIED SITE 05/12/2011 [facility] BACCARAT MANAGER, MARIANNA 703.0 Ingrowing Nail 05/12/2011 [facility] BACCARAT MANAGER, MARIANNA 726.91 EXOSTOSIS OF UNSPECIFIED SITE 06/02/2011 [facility] BACCARAT MANAGER, HEATHER 078.12 Plantar Wart 06/02/2011 [facility] BACCARAT MANAGER, HEATHER 078.12 Plantar Wart 06/02/2011 [facility] BACCARAT MANAGER, HEATHER 078.12 Plantar Wart 06/02/2011 [facility] BACCARAT MANAGER, HEATHER 078.12 Plantar Wart 06/02/2011 [facility] BACCARAT MANAGER, HEATHER 078.12 Plantar Wart 06/02/2011 [facility] BACCARAT MANAGER, HEATHER 078.12 Plantar Wart 06/02/2011 [facility] BACCARAT MANAGER, HEATHER 078.12 Plantar Wart 06/02/2011 [facility] BACCARAT MANAGER, MARIANNA 078.12 Plantar Wart 06/02/2011 [facility] BACCARAT MANAGER, MARIANNA 078.12 Plantar Wart 07/05/2011 [facility] BACCARAT MANAGER, HEATHER 466.0 ACUTE BRONCHITIS 07/05/2011 [facility] BACCARAT MANAGER, HEATHER 466.0 ACUTE BRONCHITIS 07/05/2011 [facility] BACCARAT MANAGER, HEATHER 466.0 ACUTE BRONCHITIS 07/05/2011 [facility] BACCARAT MANAGER, HEATHER 466.0 ACUTE BRONCHITIS 07/05/2011 [facility] BACCARAT MANAGER, HEATHER 466.0 ACUTE BRONCHITIS 07/05/2011 [facility] BACCARAT MANAGER, HEATHER 466.0 ACUTE BRONCHITIS 07/05/2011 [facility] BACCARAT MANAGER, HEATHER 466.0 ACUTE BRONCHITIS 07/05/2011 [facility] BACCARAT MANAGER, MARIANNA 466.0 ACUTE BRONCHITIS 07/05/2011 [facility] BACCARAT MANAGER, MARIANNA 466.0 ACUTE BRONCHITIS 11/20/2011 [facility] BACCARAT MANAGER, HEATHER 682.9 CELLULITIS 11/20/2011 [facility] BACCARAT MANAGER, HEATHER 682.9 CELLULITIS 11/20/2011 [facility] BACCARAT MANAGER, HEATHER 682.9 CELLULITIS 11/20/2011 [facility] BACCARAT MANAGER, HEATHER 682.9 CELLULITIS 11/20/2011 [facility] BACCARAT MANAGER, HEATHER 682.9 CELLULITIS 11/20/2011 [facility] BACCARAT MANAGER, HEATHER 682.9 CELLULITIS 11/20/2011 [facility] BACCARAT MANAGER, HEATHER 682.9 CELLULITIS 11/20/2011 [facility] BACCARAT MANAGER, MARIANNA 682.9 CELLULITIS 11/20/2011 [facility] BACCARAT MANAGER, MARIANNA 682.9 CELLULITIS 12/22/2011 [facility] BACCARAT MANAGER, HEATHER 401.1 ESSENTIAL HYPERTENSION BENIGN 12/22/2011 [facility] BACCARAT MANAGER, HEATHER 401.1 ESSENTIAL HYPERTENSION BENIGN 12/22/2011 [facility] BACCARAT MANAGER, HEATHER 401.1 ESSENTIAL HYPERTENSION BENIGN 12/22/2011 [facility] BACCARAT MANAGER, HEATHER 401.1 ESSENTIAL HYPERTENSION BENIGN 12/22/2011 ALEX IRVIN APRNEN 401.1 ESSENTIAL HYPERTENSION BENIGN 12/22/2011 [facility] BACCARAT MANAGERALEXEN 401.1 ESSENTIAL HYPERTENSION BENIGN 12/22/2011 [facility] ULLOAN HEATHER 401.1 ESSENTIAL HYPERTENSION BENIGN 12/22/2011 GOV[facility] BACCARAT MANAGER, MARIANNA 401.1 ESSENTIAL HYPERTENSION BENIGN 12/22/2011 G[facility] BACCARAT MANAGER, MARIANNA 401.1 ESSENTIAL HYPERTENSION BENIGN 04/09/2012 [facility] BACCARAT MANAGER, HEATHER 272.2 HYPERLIPIDEMIA 04/09/2012 [facility] BACCARAT MANAGER HEATHER V04.81 Need For Prophylactic Vaccination And Inoculation Against Influenza 04/09/2012 [facility] BACCARAT MANAGERHEATHER Sunshine 272.2 HYPERLIPIDEMIA 04/09/2012 [facility] BACCARAT MANAGER HEATHER V04.81 Need For Prophylactic Vaccination And Inoculation Against Influenza 04/09/2012 [facility] BACCARAT MANAGERHEATHER Sunshine 272.2 HYPERLIPIDEMIA 04/09/2012 [facility] BACCARAT MANAGER, HEATHER V04.81 Need For Prophylactic Vaccination And Inoculation Against Influenza 04/09/2012 [facility] BACCARAT MANAGERHEATHER Sunshine 272.2 HYPERLIPIDEMIA 04/09/2012 [facility] BACCARAT MANAGER, HEATHER V04.81 Need For Prophylactic Vaccination And Inoculation Against Influenza 04/09/2012 [facility] BACCARAT MANAGERHEATHER Sunshine 272.2 HYPERLIPIDEMIA 04/09/2012 [facility] BACCARAT MANAGER, HEATHER V04.81 Need For Prophylactic Vaccination And Inoculation Against Influenza 04/09/2012 [facility] BACCARAT MANAGERHEATHER Sunshine 272.2 HYPERLIPIDEMIA 04/09/2012 [facility] BACCARAT MANAGER, HEATHER V04.81 Need For Prophylactic Vaccination And Inoculation Against Influenza 04/09/2012 [facility] BACCARAT MANAGERHEATHER Sunshine 272.2 HYPERLIPIDEMIA 04/09/2012 [facility] BACCARAT MANAGERHEATHER Sunshine V04.81 Need For Prophylactic Vaccination And Inoculation Against Influenza 04/09/2012 GOVIND BACCARAT MANAGEREN SunshineE 272.2 HYPERLIPIDEMIA 04/09/2012 GOVIND BACCARAT MANAGERMARIANNA Sunshine V04.81 Need For Prophylactic Vaccination And Inoculation Against Influenza 04/09/2012 GOVIND BACCARAT MANAGERMARIANNA Sunshine 272.2 HYPERLIPIDEMIA 04/09/2012 GOVIND BACCARAT MANAGERMARIANNA Sunshine V04.81 Need For Prophylactic Vaccination And Inoculation Against Influenza 05/14/2012 [facility] HEATHER WRIGHT 682.9 Cellulitis/abscess 05/14/2012 [facility] BACCARAT MANAGER, HEATHER 682.9 Cellulitis/abscess 05/14/2012 [facility] BACCARAT MANAGER, HEATHER 682.9 Cellulitis/abscess 05/14/2012 [facility] BACCARAT MANAGER, HEATHER 682.9 Cellulitis/abscess 05/14/2012 [facility] BACCARAT MANAGER, HEATHER 682.9 Cellulitis/abscess 05/14/2012 [facility] BACCARAT MANAGER, HEATHER 682.9 Cellulitis/abscess 05/14/2012 [facility] BACCARAT MANAGER, HEATHER 682.9 Cellulitis/abscess 05/14/2012 GOVIND BACCARAT MANAGER, MARIANNA 682.9 Cellulitis/abscess 05/14/2012 GOVIND BACCARAT MANAGER, MARIANNA 682.9 Cellulitis/abscess 06/24/2012 [facility] BACCARAT MANAGER, HEATHER 112.1 Candidiasis, Of Vulva And Vagina 06/24/2012 [facility] BACCARAT MANAGER, HEATHER 112.1 Candidiasis, Of Vulva And Vagina 06/24/2012 [facility] BACCARAT MANAGER, HEATHER 112.1 Candidiasis, Of Vulva And Vagina 06/24/2012 BR[facility] BACCARAT MANAGER, HEATHER 112.1 Candidiasis, Of Vulva And Vagina 06/24/2012 [facility] BACCARAT MANAGER, HEATHER 112.1 Candidiasis, Of Vulva And Vagina 06/24/2012 [facility] BACCARAT MANAGER, HEATHER 112.1 Candidiasis, Of Vulva And Vagina 06/24/2012 [facility] BACCARAT MANAGER, HEATHER 112.1 Candidiasis, Of Vulva And Vagina 06/24/2012 GOVIND BACCARAT MANAGER, MARIANNA 112.1 Candidiasis, Of Vulva And Vagina 06/24/2012 GOVIND BACCARAT MANAGER, MARIANNA 112.1 Candidiasis, Of Vulva And Vagina 06/28/2012 [facility] BACCARAT MANAGER, HEATHER 110.1 Onychomycosis 06/28/2012 [facility] BACCARAT MANAGER, HEATHER 703.8 Other Specified Diseases Of Nail 06/28/2012 [facility] BACCARAT MANAGER, HEATHER 110.1 Onychomycosis 06/28/2012 [facility] BACCARAT MANAGER, HEATHER 703.8 Other Specified Diseases Of Nail 06/28/2012 [facility] BACCARAT MANAGER, HEATHER 110.1 Onychomycosis 06/28/2012 [facility] BACCARAT MANAGER, HEATHER 703.8 Other Specified Diseases Of Nail 06/28/2012 [facility] BACCARAT MANAGER, HEATHER 110.1 Onychomycosis 06/28/2012 BR[facility] BACCARAT MANAGER, HEATHER 703.8 Other Specified Diseases Of Nail 06/28/2012 BR[facility] BACCARAT MANAGER, HEATHER 110.1 Onychomycosis 06/28/2012 BR[facility] BACCARAT MANAGER, HEATHER 703.8 Other Specified Diseases Of Nail 06/28/2012 BR[facility] BACCARAT MANAGER, HEATHER 110.1 Onychomycosis 06/28/2012 BR[facility] BACCARAT MANAGER, HEATHER 703.8 Other Specified Diseases Of Nail 06/28/2012 [facility] BACCARAT MANAGER, HEATHER 110.1 Onychomycosis 06/28/2012 BR[facility] BACCARAT MANAGER, HEATHER 703.8 Other Specified Diseases Of Nail 06/28/2012 GOVIND BACCARAT MANAGER, MARIANNA 110.1 Onychomycosis 06/28/2012 GOVIND BACCARAT MANAGER, MARIANNA 703.8 Other Specified Diseases Of Nail 06/28/2012 GOVIND BACCARAT MANAGER, MARIANNA 110.1 Onychomycosis 06/28/2012 GOVIND BACCARAT MANAGER, MARIANNA 703.8 Other Specified Diseases Of Nail 08/21/2012 [facility] BACCARAT MANAGER, HEATHER 682.9 Cellulitis/abscess 08/21/2012 BR[facility]E BACCARAT MANAGER, HEATHER V72.31 Gynecological Exam 08/21/2012 BRAN[facility]E BACCARAT MANAGER, HEATHER 682.9 Cellulitis/abscess 08/21/2012 BR[facility] BACCARAT MANAGER, HEATHER V72.31 Gynecological Exam 08/21/2012 BR[facility]E BACCARAT MANAGER, HEATHER 682.9 Cellulitis/abscess 08/21/2012 BR[facility] BACCARAT MANAGER, HEATHER V72.31 Gynecological Exam 08/21/2012 BR[facility] BACCARAT MANAGER, HEATHER 682.9 Cellulitis/abscess 08/21/2012 BR[facility] BACCARAT MANAGER, HEATHER V72.31 Gynecological Exam 08/21/2012 BR[facility] BACCARAT MANAGER, HEATHER 682.9 Cellulitis/abscess 08/21/2012 BR[facility] BACCARAT MANAGER, HEATHER V72.31 Gynecological Exam 08/21/2012 BR[facility] BACCARAT MANAGER, HEATHER 682.9 Cellulitis/abscess 08/21/2012 BR[facility]E BACCARAT MANAGER, HEATHER V72.31 Gynecological Exam 08/21/2012 BR[facility] BACCARAT MANAGER, HEATHER 682.9 Cellulitis/abscess 08/21/2012 BR[facility] BACCARAT MANAGER, HEATHER V72.31 Gynecological Exam 08/21/2012 GOVIND BACCARAT MANAGER, MARIANNA 682.9 Cellulitis/abscess 08/21/2012 GOVIND BACCARAT MANAGER, MARIANNA V72.31 Gynecological Exam 08/21/2012 GOVIND BACCARAT MANAGER, MARIANNA 682.9 Cellulitis/abscess 08/21/2012 GOVIND BACCARAT MANAGER, MARIANNA V72.31 Gynecological Exam 10/08/2012 [facility] BACCARAT MANAGER, HEATHER 466.0 Bronchitis, Acute 10/08/2012 BR[facility] BACCARAT MANAGER, HEATHER 466.0 Bronchitis, Acute 10/08/2012 [facility] BACCARAT MANAGER, HEATHER 466.0 Bronchitis, Acute 10/08/2012 BR[facility] BACCARAT MANAGER, HEATHER 466.0 Bronchitis, Acute 10/08/2012 BR[facility] BACCARAT MANAGER, HEATHER 466.0 Bronchitis, Acute 10/08/2012 BR[facility] BACCARAT MANAGER, HEATHER 466.0 Bronchitis, Acute 10/08/2012 BR[facility] BACCARAT MANAGER, HEATHER 466.0 Bronchitis, Acute 10/08/2012 GOVIND BACCARAT MANAGER, MARIANNA 466.0 Bronchitis, Acute 10/08/2012 GOVIND BACCARAT MANAGER, MARIANNA 466.0 Bronchitis, Acute 12/05/2012 [facility] BACCARAT MANAGER, HEATHER 599.0 Uti 12/05/2012 [facility] BACCARAT MANAGER, HEATHER 599.0 Uti 12/05/2012 BR[facility] BACCARAT MANAGER, HEATHER 599.0 Uti 12/05/2012 BR[facility] BACCARAT MANAGER, HEATHER 599.0 Uti 12/05/2012 BR[facility] BACCARAT MANAGER, HEATHER 599.0 Uti 12/05/2012 BRANDEE BACCARAT MANAGER, HEATHER 599.0 Uti 12/05/2012 BRANDEE BACCARAT MANAGER, HEATHER 599.0 Uti 12/05/2012 GOVIND BACCARAT MANAGER, MARIANNA 599.0 Uti 12/05/2012 GOVIND BACCARAT MANAGER, MARIANNA 599.0 Uti 05/21/2013 BRANDEE BACCARAT MANAGER, HEATHER 285.9 ANEMIA, UNSPECIFIED 05/21/2013 BRANDEE BACCARAT MANAGER, HEATHER 285.9 ANEMIA, UNSPECIFIED 05/21/2013 BRANDEE BACCARAT MANAGER, HEATHER 285.9 ANEMIA, UNSPECIFIED 05/21/2013 BRANDEE BACCARAT MANAGER, HEATHER 285.9 ANEMIA, UNSPECIFIED 05/21/2013 BRANDEE BACCARAT MANAGER, HEATHER 285.9 ANEMIA, UNSPECIFIED 05/21/2013 BRANDEE BACCARAT MANAGER, HEATHER 285.9 ANEMIA, UNSPECIFIED 05/21/2013 BRANDEE BACCARAT MANAGER, HEATHER 285.9 ANEMIA, UNSPECIFIED 05/21/2013 GOVIND BACCARAT MANAGER, MARIANNA 285.9 ANEMIA, UNSPECIFIED 08/07/2013 BRANDEE BACCARAT MANAGER, HEATHER 682.5 CELLULITIS AND ABSCESS OF BUTTOCK 08/07/2013 BRANDEE BACCARAT MANAGER, HEATHER 682.5 CELLULITIS AND ABSCESS OF BUTTOCK 08/07/2013 BRANDEE BACCARAT MANAGER, HEATHER 682.5 CELLULITIS AND ABSCESS OF BUTTOCK 08/07/2013 BRANDEE BACCARAT MANAGER, HEATHER 682.5 CELLULITIS AND ABSCESS OF BUTTOCK 08/07/2013 BRANDEE BACCARAT MANAGER, HEATHER 682.5 CELLULITIS AND ABSCESS OF BUTTOCK 08/07/2013 BRANDEE BACCARAT MANAGER, HEATHER 682.5 CELLULITIS AND ABSCESS OF BUTTOCK 08/07/2013 BRANDEE BACCARAT MANAGER, HEATHER 682.5 CELLULITIS AND ABSCESS OF BUTTOCK 12/12/2013 BRANDEE BACCARAT MANAGER, HEATHER 250.02 DIABETES MELLITUS WITHOUT MENTION OF COMPLICATION TYPE II OR UNSPECIFIED TYPE UNCONTROLLED 12/12/2013 BRANDEE BACCARAT MANAGER, HEATHER 250.02 DIABETES MELLITUS WITHOUT MENTION OF COMPLICATION TYPE II OR UNSPECIFIED TYPE UNCONTROLLED 12/12/2013 BRANDEE BACCARAT MANAGER, HEATHER 250.02 DIABETES MELLITUS WITHOUT MENTION OF COMPLICATION TYPE II OR UNSPECIFIED TYPE UNCONTROLLED 12/12/2013 BRANDEE BACCARAT MANAGER, HEATHER 250.02 DIABETES MELLITUS WITHOUT MENTION OF COMPLICATION TYPE II OR UNSPECIFIED TYPE UNCONTROLLED 04/25/2018 Bora BATEMAN, Halle Licea N13.1 Hydronephrosis with ureteral stricture, not elsewhere [...] AND TENDON OF L 09/13/2018 DANIEL HERNANDEZ MD, Ot S66.911A STRAIN OF [facility]/FASC/TEND AT S/HND 09/13/2018 DANIEL HERNANDEZ MD Ot S66.912A STRAIN OF [facility] MUSC/FASC/TEND AT S/HND 09/13/2018 MARY BATEMAN, DANIEL Roberson Ot W00.0XXA FALL ON SAME LEVEL DUE TO ICE AND SNOW, 09/19/2018 KAPIL BLANCA NOEL T Ot C67.9 MALIGNANT NEOPLASM OF BLADDER, UNSPECIFI 09/19/2018 KAPIL BLANCA NOEL T Ot E11.65 TYPE 2 DIABETES MELLITUS WITH HYPERGLYCE 09/19/2018 KAPIL BLANCA NOEL T Ot I10 ESSENTIAL (PRIMARY) HYPERTENSION 09/19/2018 KAPIL BLANCA NOEL T Ot J43.9 EMPHYSEMA, UNSPECIFIED 09/19/2018 KAPIL BLANCA NOEL T Ot L02.211 CUTANEOUS ABSCESS OF ABDOMINAL WALL 09/19/2018 KAPIL BLANCA NOEL T Ot R55 SYNCOPE AND COLLAPSE 09/19/2018 KAPIL BLANCA NOEL T Ot Z85.528 PERSONAL HISTORY OF OTHER MALIGNANT NEOP 09/19/2018 KAPIL BLANCA NOEL T Ot Z90.710 ACQUIRED ABSENCE OF BOTH CERVIX AND UTER 09/19/2018 KAPIL BLANCA NOEL T Ot Z90.89 ACQUIRED ABSENCE OF OTHER ORGANS 09/19/2018 KAPIL BLANCA NOEL T Ot Z92.21 PERSONAL HISTORY OF ANTINEOPLASTIC CHEMO 09/19/2018 KAPIL BLANCA NOEL T Ot Z98.51 TUBAL LIGATION STATUS 09/19/2018 KAPIL BLANCA NOEL T Ot Z98.890 OTHER SPECIFIED POSTPROCEDURAL STATES 09/20/2018 KAPIL BLANCA NOEL T Ot C67.9 MALIGNANT NEOPLASM OF BLADDER, UNSPECIFI 09/20/2018 KAPIL BLANCA NOEL T Ot E11.65 TYPE 2 DIABETES MELLITUS WITH HYPERGLYCE 09/20/2018 KAPIL BLANCA NOEL T Ot I10 ESSENTIAL (PRIMARY) HYPERTENSION 09/20/2018 KAPIL BLANCA NOEL T Ot J43.9 EMPHYSEMA, UNSPECIFIED 09/20/2018 KAPIL BLANCA NOEL T Ot L02.211 CUTANEOUS ABSCESS OF ABDOMINAL WALL 09/20/2018 KAPIL BLANCA NOEL T Ot R55 SYNCOPE AND COLLAPSE 09/20/2018 KAPIL BLANCA NOEL T Ot Z85.528 PERSONAL HISTORY OF OTHER MALIGNANT NEOP 09/20/2018 KAPIL BLANCA NOEL T Ot Z90.710 ACQUIRED ABSENCE OF BOTH CERVIX AND UTER 09/20/2018 NOEL DICK DO T Ot Z90.89 ACQUIRED ABSENCE OF OTHER ORGANS 09/20/2018 NOEL DICK DO Ot Z92.21 PERSONAL HISTORY OF ANTINEOPLASTIC CHEMO 09/20/2018 NOEL DICK DO T Ot Z98.51 TUBAL LIGATION STATUS 09/20/2018 NOEL DICK DO Ot Z98.890 OTHER SPECIFIED POSTPROCEDURAL STATES 10/13/2018 DANIEL HERNANDEZ MD, Ot C64.9 MALIGNANT NEOPLASM OF UNSP KIDNEY, EXCEP 10/13/2018 DANIEL HERNANDEZ MD, Ot E11.9 TYPE 2 DIABETES MELLITUS WITHOUT COMPLIC 10/13/2018 DANIEL HERNANDEZ MD, Ot F17.210 NICOTINE DEPENDENCE, CIGARETTES, UNCOMPL 10/13/2018 DANIEL HERNANDEZ MD, Ot I10 ESSENTIAL (PRIMARY) HYPERTENSION 10/13/2018 DANIEL HERNANDEZ MD, Ot J44.9 CHRONIC OBSTRUCTIVE PULMONARY DISEASE, U 10/13/2018 DANIEL HERNANDEZ MD, Ot R07.81 PLEURODYNIA 10/13/2018 DANIEL HERNANDEZ MD, Ot R79.1 ABNORMAL COAGULATION PROFILE 10/13/2018 DANIEL HERNANDEZ MD, Ot Z87.442 PERSONAL HISTORY OF URINARY CALCULI 10/13/2018 DANIEL HERNANDEZ MD, Ot Z87.448 PERSONAL HISTORY OF OTHER DISEASES OF UR 10/13/2018 DANIEL HERNANDEZ MD, Ot Z90.5 ACQUIRED ABSENCE OF KIDNEY 10/13/2018 DANIEL HERNANDEZ MD, Ot Z90.710 ACQUIRED ABSENCE OF BOTH CERVIX AND UTER 10/13/2018 DANIEL HERNANDEZ MD, Ot Z92.21 PERSONAL HISTORY OF ANTINEOPLASTIC CHEMO 10/17/2018 DIANE DELCID MD, Ot D63.8 ANEMIA IN OTHER CHRONIC DISEASES CLASSIF 10/17/2018 DIANE DELCID MD, Ot E11.9 TYPE 2 DIABETES MELLITUS WITHOUT COMPLIC 10/17/2018 DIANE DELCID MD, Ot I10 ESSENTIAL (PRIMARY) HYPERTENSION 10/17/2018 DIANE DELCID MD, Ot I95.9 HYPOTENSION, UNSPECIFIED 10/17/2018 DIANE DELCID MD, Ot J44.1 CHRONIC OBSTRUCTIVE PULMONARY DISEASE W 10/17/2018 DIANE DELCID MD, Ot R07.81 PLEURODYNIA 10/17/2018 ENYART MD, DIANE E Ot R07.9 CHEST PAIN, UNSPECIFIED 10/17/2018 DIANE DELCID MD, Ot S80.812A ABRASION, LEFT LOWER LEG, INITIAL ENCOUN 10/17/2018 DIANE DELCID MD Ot X58.XXXA EXPOSURE TO OTHER SPECIFIED FACTORS, INI 10/17/2018 DIANE DELCID MD Ot Z85.528 PERSONAL HISTORY OF OTHER MALIGNANT NEOP 10/17/2018 DIANE DELCID MD Ot Z87.442 PERSONAL HISTORY OF URINARY CALCULI 10/17/2018 DIANE DELCID MD Ot Z87.448 PERSONAL HISTORY OF OTHER DISEASES OF UR 10/17/2018 DIANE DELCID MD Ot Z90.5 ACQUIRED ABSENCE OF KIDNEY 10/17/2018 DIANE DELCID MD Ot Z90.710 ACQUIRED ABSENCE OF BOTH CERVIX AND UTER 10/17/2018 DIANE DELCID MD Ot Z92.21 PERSONAL HISTORY OF ANTINEOPLASTIC CHEMO 10/21/2018 DIANE DELCID MD Ot D63.8 ANEMIA IN OTHER CHRONIC DISEASES CLASSIF 10/21/2018 DIANE DELCID MD Ot E11.9 TYPE 2 DIABETES MELLITUS WITHOUT COMPLIC 10/21/2018 DIANE DELCID MD Ot I10 ESSENTIAL (PRIMARY) HYPERTENSION 10/21/2018 DIANE DELCID MD, Ot I95.9 HYPOTENSION, UNSPECIFIED 10/21/2018 DIANE DELCID MD, Ot J44.1 CHRONIC OBSTRUCTIVE PULMONARY DISEASE W 10/21/2018 DIANE DELCID MD, Ot R07.81 PLEURODYNIA 10/21/2018 DIANE DELCID MD Ot R07.9 CHEST PAIN, UNSPECIFIED 10/21/2018 DIANE DELCID MD, Ot S80.812A ABRASION, LEFT LOWER LEG, INITIAL ENCOUN 10/21/2018 DIANE DELCID MD Ot X58.XXXA EXPOSURE TO OTHER SPECIFIED FACTORS, INI 10/21/2018 DIANE DELCID MD, Ot Z85.528 PERSONAL HISTORY OF OTHER MALIGNANT NEOP 10/21/2018 DIANE DELCID MD, Ot Z87.442 PERSONAL HISTORY OF URINARY CALCULI 10/21/2018 DIANE DELCID MD Ot Z87.448 PERSONAL HISTORY OF OTHER DISEASES OF UR 10/21/2018 DIANE DELCID MD Ot Z90.5 ACQUIRED ABSENCE OF KIDNEY 10/21/2018 DIANE DELCID MD, Ot Z90.710 ACQUIRED ABSENCE OF BOTH CERVIX AND UTER 10/21/2018 DIANE DELCID MD, Ot Z92.21 PERSONAL HISTORY OF ANTINEOPLASTIC CHEMO 10/30/2018 Halle Sahni MD L08.9 Wound infection 10/30/2018 Halle Sahni MD C67.9 Bladder cancer 10/30/2018 Reason For Visit L08.9 Local infection of the skin and subcutaneous tissue, unspecified 10/31/2018 DIANE DELCID MD, Ot E11.65 TYPE 2 DIABETES MELLITUS WITH HYPERGLYCE 10/31/2018 DIANE DELCID MD, Ot F12.10 CANNABIS ABUSE, UNCOMPLICATED 10/31/2018 DIANE DELCID MD, Ot I10 ESSENTIAL (PRIMARY) HYPERTENSION 10/31/2018 DIANE DELCID MD, Ot J44.1 CHRONIC OBSTRUCTIVE PULMONARY DISEASE W 10/31/2018 DIANE DELCID MD, Ot R06.02 SHORTNESS OF BREATH 10/31/2018 DIANE DELCID MD, Ot T49.0X5A ADVERSE EFFECT OF LOCAL ANTIFUNG/INFECT/ 10/31/2018 DIANE DELCID MD, Ot T81.31XA DISRUPTION OF EXTERNAL OPERATION (SURGIC 10/31/2018 DIANE DELCID MD, Ot Z85.528 PERSONAL HISTORY OF OTHER MALIGNANT NEOP 10/31/2018 DIANE DELCID MD, Ot Z87.442 PERSONAL HISTORY OF URINARY CALCULI 10/31/2018 DIANE DELCID MD, Ot Z87.448 PERSONAL HISTORY OF OTHER DISEASES OF UR 10/31/2018 DIANE DELCID MD, Ot Z90.5 ACQUIRED ABSENCE OF KIDNEY 10/31/2018 DIANE DELCID MD, Ot Z90.710 ACQUIRED ABSENCE OF BOTH CERVIX AND UTER 10/31/2018 DIANE DELCID MD, Ot Z90.89 ACQUIRED ABSENCE OF OTHER ORGANS 10/31/2018 DIANE DELCID MD, Ot Z92.21 PERSONAL HISTORY OF ANTINEOPLASTIC CHEMO 10/31/2018 DIANE DELCID MD, Ot Z98.51 TUBAL LIGATION STATUS 11/01/2018 DIANE DELCID MD, Ot E11.65 TYPE 2 DIABETES MELLITUS WITH HYPERGLYCE 11/01/2018 DIANE DELCID MD, Ot F12.10 CANNABIS ABUSE, UNCOMPLICATED 11/01/2018 DIANE DELCID MD, Ot I10 ESSENTIAL (PRIMARY) HYPERTENSION 11/01/2018 DIANE DELCID MD, Ot J44.1 CHRONIC OBSTRUCTIVE PULMONARY DISEASE W 11/01/2018 DIANE DELCID MD, Ot R06.02 SHORTNESS OF BREATH 11/01/2018 DIANE DELCID MD, Ot T49.0X5A ADVERSE EFFECT OF LOCAL ANTIFUNG/INFECT/ 11/01/2018 DIANE DELCID MD, Ot T81.31XA DISRUPTION OF EXTERNAL OPERATION (SURGIC 11/01/2018 DIANE DELCID MD, Ot Z85.528 PERSONAL HISTORY OF OTHER MALIGNANT NEOP 11/01/2018 DIANE DELCID MD, Ot Z87.442 PERSONAL HISTORY OF URINARY CALCULI 11/01/2018 DIANE DELCID MD, Ot Z87.448 PERSONAL HISTORY OF OTHER DISEASES OF UR 11/01/2018 DIANE DELCID MD, Ot Z90.5 ACQUIRED ABSENCE OF KIDNEY 11/01/2018 DIANE DELCID MD, Ot Z90.710 ACQUIRED ABSENCE OF BOTH CERVIX AND UTER 11/01/2018 DIANE DELCID MD, Ot Z90.89 ACQUIRED ABSENCE OF OTHER ORGANS 11/01/2018 DIANE DELCID MD, Ot Z92.21 PERSONAL HISTORY OF ANTINEOPLASTIC CHEMO 11/01/2018 DIANE DELCID MD, Ot Z98.51 TUBAL LIGATION STATUS 11/07/2018 JAME CULVER DO T Ot C66.9 MALIGNANT NEOPLASM OF UNSPECIFIED URETER 11/07/2018 JAME CULVER DO T Ot D63.8 ANEMIA IN OTHER CHRONIC DISEASES CLASSIF 11/07/2018 JAME CULVER DO T Ot 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, 11/07/2018 JAME CULVER DO T Ot E11.9 TYPE 2 DIABETES MELLITUS WITHOUT COMPLIC 11/07/2018 JAME CULVER DO T Ot F12.10 CANNABIS ABUSE, UNCOMPLICATED 11/07/2018 JAME CULVER DO T Ot F17.210 NICOTINE DEPENDENCE, CIGARETTES, UNCOMPL 11/07/2018 JAME CULVER DO T Ot I10 ESSENTIAL (PRIMARY) HYPERTENSION 11/07/2018 JAME CULVER DO T Ot I95.9 HYPOTENSION, UNSPECIFIED 11/07/2018 JAME CULVER DO T Ot J18.9 PNEUMONIA, UNSPECIFIED ORGANISM 11/07/2018 JAME CULVER DO Ot J45.909 UNSPECIFIED ASTHMA, UNCOMPLICATED 11/07/2018 JAME CULVER DO Ot R06.02 SHORTNESS OF BREATH 11/07/2018 JAME CULVER DO Ot Z87.440 PERSONAL HISTORY OF URINARY (TRACT) INFE 11/07/2018 JAME CULVER DO Ot Z87.442 PERSONAL HISTORY OF URINARY CALCULI 11/07/2018 JAME CULVER DO Ot Z90.5 ACQUIRED ABSENCE OF KIDNEY 11/07/2018 JAME CULVER DO T Ot Z90.6 ACQUIRED ABSENCE OF OTHER PARTS OF URINA 11/07/2018 JAME CULVER DO Ot Z90.710 ACQUIRED ABSENCE OF BOTH CERVIX AND UTER 11/07/2018 JAME CULVER DO T Ot Z90.89 ACQUIRED ABSENCE OF OTHER ORGANS 11/07/2018 JAME CULVER DO T Ot Z92.21 PERSONAL HISTORY OF ANTINEOPLASTIC CHEMO 11/07/2018 JAME CULVER DO Ot Z98.51 TUBAL LIGATION STATUS 11/08/2018 JAME CULVER DO T Ot C66.9 MALIGNANT NEOPLASM OF UNSPECIFIED URETER 11/08/2018 JAME CULVER DO T Ot D63.8 ANEMIA IN OTHER CHRONIC DISEASES CLASSIF 11/08/2018 JAME CULVER DO Ot 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, 11/08/2018 JAME CULVER DO T Ot E11.9 TYPE 2 DIABETES MELLITUS WITHOUT COMPLIC 11/08/2018 JAME CULVER DO Ot F12.10 CANNABIS ABUSE, UNCOMPLICATED 11/08/2018 JAME CULVER DO Ot F17.210 NICOTINE DEPENDENCE, CIGARETTES, UNCOMPL 11/08/2018 JAME CULVER DO T Ot I10 ESSENTIAL (PRIMARY) HYPERTENSION 11/08/2018 JAME CULVER DO T Ot I95.9 HYPOTENSION, UNSPECIFIED 11/08/2018 JAME CULVER DO Ot J18.9 PNEUMONIA, UNSPECIFIED ORGANISM 11/08/2018 JAME CULVER DO Ot J45.909 UNSPECIFIED ASTHMA, UNCOMPLICATED 11/08/2018 JAME CULVER DO Ot R06.02 SHORTNESS OF BREATH 11/08/2018 JAME CULVER DO T Ot Z87.440 PERSONAL HISTORY OF URINARY (TRACT) INFE 11/08/2018 JAME CULVER DO Ot Z87.442 PERSONAL HISTORY OF URINARY CALCULI 11/08/2018 JAME CULVER DO T Ot Z90.5 ACQUIRED ABSENCE OF KIDNEY 11/08/2018 JAME CULVER DO T Ot Z90.6 ACQUIRED ABSENCE OF OTHER PARTS OF URINA 11/08/2018 JAME CULVER DO T Ot Z90.710 ACQUIRED ABSENCE OF BOTH CERVIX AND UTER 11/08/2018 JAME CULVER DO T Ot Z90.89 ACQUIRED ABSENCE OF OTHER ORGANS 11/08/2018 JAME CULVER DO T Ot Z92.21 PERSONAL HISTORY OF ANTINEOPLASTIC CHEMO 11/08/2018 JAME CULVER DO Ot Z98.51 TUBAL LIGATION STATUS 11/12/2018 JAME CULVER DO T Ot C66.9 MALIGNANT NEOPLASM OF UNSPECIFIED URETER 11/12/2018 JAME CULVER DO T Ot D63.8 ANEMIA IN OTHER CHRONIC DISEASES CLASSIF 11/12/2018 JAME CULVER DO T Ot 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, 11/12/2018 JAME CULVER DO T Ot E11.9 TYPE 2 DIABETES MELLITUS WITHOUT COMPLIC 11/12/2018 JAME CULVER DO T Ot F12.10 CANNABIS ABUSE, UNCOMPLICATED 11/12/2018 JAME CULVER DO T Ot F17.210 NICOTINE DEPENDENCE, CIGARETTES, UNCOMPL 11/12/2018 JAME CULVER DO T Ot I10 ESSENTIAL (PRIMARY) HYPERTENSION 11/12/2018 JAME CULVER DO T Ot I95.9 HYPOTENSION, UNSPECIFIED 11/12/2018 JAME CULVER DO T Ot J18.9 PNEUMONIA, UNSPECIFIED ORGANISM 11/12/2018 JAME CULVER DO T Ot J45.909 UNSPECIFIED ASTHMA, UNCOMPLICATED 11/12/2018 JAME CULVER DO T Ot R06.02 SHORTNESS OF BREATH 11/12/2018 JAME CULVER DO T Ot Z87.440 PERSONAL HISTORY OF URINARY (TRACT) INFE 11/12/2018 JAME CULVER DO T Ot Z87.442 PERSONAL HISTORY OF URINARY CALCULI 11/12/2018 KEITHLY DO, JAME T Ot Z90.5 ACQUIRED ABSENCE OF KIDNEY 11/12/2018 KEVASILIYLY DO JAME T Ot Z90.6 ACQUIRED ABSENCE OF OTHER PARTS OF URINA 11/12/2018 KEITHLY DO JAME T Ot Z90.710 ACQUIRED ABSENCE OF BOTH CERVIX AND UTER 11/12/2018 KEITHLY DO JAME T Ot Z90.89 ACQUIRED ABSENCE OF OTHER ORGANS 11/12/2018 KEWAQAS BLANCA JAME T Ot Z92.21 PERSONAL HISTORY OF ANTINEOPLASTIC CHEMO 11/12/2018 PALOMO BLANCA JAME T Ot Z98.51 TUBAL LIGATION STATUS 11/14/2018 DANIEL HERNANDEZ MD, Ot E11.649 TYPE 2 DIABETES MELLITUS WITH HYPOGLYCEM 11/14/2018 DANIEL HERNANDEZ MD, Ot E16.2 HYPOGLYCEMIA, UNSPECIFIED 11/14/2018 DANIEL HERNANDEZ MD, Ot F12.10 CANNABIS ABUSE, UNCOMPLICATED 11/14/2018 DANIEL HERNANDEZ MD, Ot I10 ESSENTIAL (PRIMARY) HYPERTENSION 11/14/2018 DANIEL HERNANDEZ MD, Ot J45.909 UNSPECIFIED ASTHMA, UNCOMPLICATED 11/14/2018 DANIEL HERNANDEZ MD, Ot Z77.22 CNTCT W AND EXPSR TO ENVIRON TOBACCO SMO 11/14/2018 DANIEL HERNANDEZ MD, Ot Z85.528 PERSONAL HISTORY OF OTHER MALIGNANT NEOP 11/14/2018 DANIEL HERNANDEZ MD, Ot Z87.01 PERSONAL HISTORY OF PNEUMONIA (RECURRENT 11/14/2018 DANIEL HERNANDEZ MD, Ot Z87.442 PERSONAL HISTORY OF URINARY CALCULI 11/14/2018 DANIEL HERNANDEZ MD Ot Z90.6 ACQUIRED ABSENCE OF OTHER PARTS OF URINA 11/14/2018 DANIEL HERNANDEZ MD Ot Z90.710 ACQUIRED ABSENCE OF BOTH CERVIX AND UTER 11/14/2018 DANIEL HERNANDEZ MD Ot Z92.21 PERSONAL HISTORY OF ANTINEOPLASTIC CHEMO 11/14/2018 DANIEL HERNANDEZ MD Ot Z98.51 TUBAL LIGATION STATUS 11/18/2018 DANIEL HERNANDEZ MD, Ot E11.649 TYPE 2 DIABETES MELLITUS WITH HYPOGLYCEM 11/18/2018 DANIEL HERNANDEZ MD Ot E16.2 HYPOGLYCEMIA, UNSPECIFIED 11/18/2018 DANIEL HERNANDEZ MD Ot F12.10 CANNABIS ABUSE, UNCOMPLICATED 11/18/2018 MARY MD, DANIEL D Ot I10 ESSENTIAL (PRIMARY) HYPERTENSION 11/18/2018 DANIEL HERNANDEZ MD, Ot J45.909 UNSPECIFIED ASTHMA, UNCOMPLICATED 11/18/2018 DANIEL HERNANDEZ MD Ot Z77.22 CNTCT W AND EXPSR TO ENVIRON TOBACCO SMO 11/18/2018 DANIEL HERNANDEZ MD, Ot Z85.528 PERSONAL HISTORY OF OTHER MALIGNANT NEOP 11/18/2018 DANIEL HERNANDEZ MD, Ot Z87.01 PERSONAL HISTORY OF PNEUMONIA (RECURRENT 11/18/2018 DANIEL HERNANDEZ MD, Ot Z87.442 PERSONAL HISTORY OF URINARY CALCULI 11/18/2018 DANIEL HERNANDEZ MD, Ot Z90.6 ACQUIRED ABSENCE OF OTHER PARTS OF URINA 11/18/2018 DANIEL HERNANDEZ MD, Ot Z90.710 ACQUIRED ABSENCE OF BOTH CERVIX AND UTER 11/18/2018 DANIEL HERNANDEZ MD, Ot Z92.21 PERSONAL HISTORY OF ANTINEOPLASTIC CHEMO 11/18/2018 DANIEL HERNANDEZ MD, Ot Z98.51 TUBAL LIGATION STATUS 11/29/2018 DIANE DELCID MD Ot E11.9 TYPE 2 DIABETES MELLITUS WITHOUT COMPLIC 11/29/2018 DIANE DELCID MD Ot E86.1 HYPOVOLEMIA 11/29/2018 DIANE DELCID MD Ot I10 ESSENTIAL (PRIMARY) HYPERTENSION 11/29/2018 DIANE DELCID MD Ot I95.9 HYPOTENSION, UNSPECIFIED 11/29/2018 DIANE DELCID MD Ot J45.909 UNSPECIFIED ASTHMA, UNCOMPLICATED 11/29/2018 DIANE DELCID MD Ot N17.9 ACUTE KIDNEY FAILURE, UNSPECIFIED 11/29/2018 DIANE DELCID MD Ot R33.9 RETENTION OF URINE, UNSPECIFIED 11/29/2018 DIANE DELCID MD Ot Z77.22 CNTCT W AND EXPSR TO ENVIRON TOBACCO SMO 11/29/2018 DIANE DELCID MD Ot Z85.528 PERSONAL HISTORY OF OTHER MALIGNANT NEOP 11/29/2018 DIANE DELCID MD Ot Z90.5 ACQUIRED ABSENCE OF KIDNEY 11/29/2018 DIANE DELCID MD Ot Z90.710 ACQUIRED ABSENCE OF BOTH CERVIX AND UTER 11/29/2018 DIANE DELCID MD Ot Z90.89 ACQUIRED ABSENCE OF OTHER ORGANS 11/29/2018 DIANE DELCID MD Ot Z92.21 PERSONAL HISTORY OF ANTINEOPLASTIC CHEMO 11/29/2018 DIANE DELCID MD, Ot Z98.51 TUBAL LIGATION STATUS 11/29/2018 DIANE DELCID MD, Ot Z98.890 OTHER SPECIFIED POSTPROCEDURAL STATES 12/02/2018 DIANE DELCID MD, Ot E11.9 TYPE 2 DIABETES MELLITUS WITHOUT COMPLIC 12/02/2018 DIANE DELCID MD, Ot E86.1 HYPOVOLEMIA 12/02/2018 DIANE DELCID MD, Ot I10 ESSENTIAL (PRIMARY) HYPERTENSION 12/02/2018 DIANE DELCID MD, Ot I95.9 HYPOTENSION, UNSPECIFIED 12/02/2018 DIANE DELCID MD, Ot J45.909 UNSPECIFIED ASTHMA, UNCOMPLICATED 12/02/2018 DIANE DELCID MD, Ot N17.9 ACUTE KIDNEY FAILURE, UNSPECIFIED 12/02/2018 DIANE DELCID MD, Ot R33.9 RETENTION OF URINE, UNSPECIFIED 12/02/2018 DIANE DELCID MD, Ot Z77.22 CNTCT W AND EXPSR TO ENVIRON TOBACCO SMO 12/02/2018 DIANE DELCID MD, Ot Z85.528 PERSONAL HISTORY OF OTHER MALIGNANT NEOP 12/02/2018 DIANE DELCID MD, Ot Z90.5 ACQUIRED ABSENCE OF KIDNEY 12/02/2018 DIANE DELCID MD, Ot Z90.710 ACQUIRED ABSENCE OF BOTH CERVIX AND UTER 12/02/2018 DIANE DELCID MD, Ot Z90.89 ACQUIRED ABSENCE OF OTHER ORGANS 12/02/2018 DIANE DELCID MD, Ot Z92.21 PERSONAL HISTORY OF ANTINEOPLASTIC CHEMO 12/02/2018 DIANE DELCID MD, Ot Z98.51 TUBAL LIGATION STATUS 12/02/2018 DIANE DELCID MD, Ot Z98.890 OTHER SPECIFIED POSTPROCEDURAL STATES 12/06/2018 JUD CULVER DOINA T Ot C66.9 MALIGNANT NEOPLASM OF UNSPECIFIED URETER 12/06/2018 JUD CULVER DOINA T Ot D63.8 ANEMIA IN OTHER CHRONIC DISEASES CLASSIF 12/06/2018 JAME CULVER DO T Ot 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, 12/06/2018 JAME CULVER DO T Ot E11.9 TYPE 2 DIABETES MELLITUS WITHOUT COMPLIC 12/06/2018 JUD CULVER DOINA T Ot F12.10 CANNABIS ABUSE, UNCOMPLICATED 12/06/2018 PALOMO BLANCA JAME T Ot F17.210 NICOTINE DEPENDENCE, CIGARETTES, UNCOMPL 12/06/2018 PALOMO DO JAME T Ot I10 ESSENTIAL (PRIMARY) HYPERTENSION 12/06/2018 PALOMO BLANCA JAME T Ot I95.9 HYPOTENSION, UNSPECIFIED 12/06/2018 PALOMO DO JAME T Ot J18.9 PNEUMONIA, UNSPECIFIED ORGANISM 12/06/2018 PALOMO DO JAME T Ot J45.909 UNSPECIFIED ASTHMA, UNCOMPLICATED 12/06/2018 PALOMO DO JAME T Ot R06.02 SHORTNESS OF BREATH 12/06/2018 PALOMO DO JAME T Ot Z87.440 PERSONAL HISTORY OF URINARY (TRACT) INFE 12/06/2018 PALOMO DO JAME T Ot Z87.442 PERSONAL HISTORY OF URINARY CALCULI 12/06/2018 PALOMO BLANCA JAME T Ot Z90.5 ACQUIRED ABSENCE OF KIDNEY 12/06/2018 PALOMO DO JAME T Ot Z90.6 ACQUIRED ABSENCE OF OTHER PARTS OF URINA 12/06/2018 PALOMO DO JAME T Ot Z90.710 ACQUIRED ABSENCE OF BOTH CERVIX AND UTER 12/06/2018 PALOMO DO JAME T Ot Z90.89 ACQUIRED ABSENCE OF OTHER ORGANS 12/06/2018 PALOMO DO JAME T Ot Z92.21 PERSONAL HISTORY OF ANTINEOPLASTIC CHEMO 12/06/2018 PALOMO BLANCA JAME T Ot Z98.51 TUBAL LIGATION STATUS 12/13/2018 JERI BATEMAN, MANASA Funes Ot R10.84 GENERALIZED ABDOMINAL PAIN 12/14/2018 LUCÍA FUENTES MD, Ot E11.9 TYPE 2 DIABETES MELLITUS WITHOUT COMPLIC 12/14/2018 LUCÍA FUENTES MD, Ot E78.5 HYPERLIPIDEMIA, UNSPECIFIED 12/14/2018 LUCÍA FUENTES MD, Ot F31.9 BIPOLAR DISORDER, UNSPECIFIED 12/14/2018 LUCÍA FUENTES MD, Ot I10 ESSENTIAL (PRIMARY) HYPERTENSION 12/14/2018 LUCÍA FUENTES MD, Ot J45.909 UNSPECIFIED ASTHMA, UNCOMPLICATED 12/14/2018 LUCÍA FUENTES MD, Ot N30.01 ACUTE CYSTITIS WITH HEMATURIA 12/14/2018 LUCÍA FUENTES MD, Ot R10.2 PELVIC AND PERINEAL PAIN 12/14/2018 LUCÍA FUENTES MD, Ot Z85.528 PERSONAL HISTORY OF OTHER MALIGNANT NEOP 12/14/2018 LUCÍA FUENTES MD, Ot Z85.54 PERSONAL HISTORY OF MALIGNANT NEOPLASM O 12/14/2018 LUCÍA FUENTES MD, Ot Z87.440 PERSONAL HISTORY OF URINARY (TRACT) INFE 12/14/2018 LUCÍA FUENTES MD, Ot Z87.442 PERSONAL HISTORY OF URINARY CALCULI 12/14/2018 LUCÍA FUENTES MD, Ot Z90.5 ACQUIRED ABSENCE OF KIDNEY 12/14/2018 LUCÍA FUENTES MD, Ot Z90.710 ACQUIRED ABSENCE OF BOTH CERVIX AND UTER 12/14/2018 LUCÍA FUENTES MD, Ot Z90.89 ACQUIRED ABSENCE OF OTHER ORGANS 12/14/2018 LUCÍA FUENTES MD, Ot Z92.21 PERSONAL HISTORY OF ANTINEOPLASTIC CHEMO 12/14/2018 LUCÍA FUENTES MD, Ot Z98.51 TUBAL LIGATION STATUS 12/17/2018 LUCÍA FUENTES MD, Ot E11.9 TYPE 2 DIABETES MELLITUS WITHOUT COMPLIC 12/17/2018 LUCÍA FUENTES MD, Ot E78.5 HYPERLIPIDEMIA, UNSPECIFIED 12/17/2018 LUCÍA FUENTES MD, Ot F31.9 BIPOLAR DISORDER, UNSPECIFIED 12/17/2018 LUCÍA FUENTES MD, Ot I10 ESSENTIAL (PRIMARY) HYPERTENSION 12/17/2018 LUCÍA FUENTES MD, Ot J45.909 UNSPECIFIED ASTHMA, UNCOMPLICATED 12/17/2018 LUCÍA FUENTES MD, Ot N30.01 ACUTE CYSTITIS WITH HEMATURIA 12/17/2018 LUCÍA FUENTES MD, Ot R10.2 PELVIC AND PERINEAL PAIN 12/17/2018 LUCÍA FUENTES MD, Ot Z85.528 PERSONAL HISTORY OF OTHER MALIGNANT NEOP 12/17/2018 LUCÍA FUENTES MD, Ot Z85.54 PERSONAL HISTORY OF MALIGNANT NEOPLASM O 12/17/2018 LUCÍA FUENTES MD, Ot Z87.440 PERSONAL HISTORY OF URINARY (TRACT) INFE 12/17/2018 LUCÍA FUENTES MD, Ot Z87.442 PERSONAL HISTORY OF URINARY CALCULI 12/17/2018 LUCÍA FUENTES MD, Ot Z90.5 ACQUIRED ABSENCE OF KIDNEY 12/17/2018 LUCÍA FUENTES MD, Ot Z90.710 ACQUIRED ABSENCE OF BOTH CERVIX AND UTER 12/17/2018 LUCÍA FUENTES MD, Ot Z90.89 ACQUIRED ABSENCE OF OTHER ORGANS 12/17/2018 LUCÍA FUENTES MD, Ot Z92.21 PERSONAL HISTORY OF ANTINEOPLASTIC CHEMO 12/17/2018 LUCÍA FUENTES MD, Ot Z98.51 TUBAL LIGATION STATUS 12/19/2018 Bora BATEMAN, Halle Licea N32.89 Nontraumatic bladder rupture Procedures Code Description [place] [address] GLUCOSE 05/08/2013 78017 HEMOGLOBIN A1C 05/08/2013 G0008 ADMIN FEE (MEDICARE) INFLUENZA 05/14/2013 86313 CBC - CBC WITH DIFF - LC 05/15/2013 30982 COMP - COMPREHENSIVE PANEL - LC 05/15/2013 95512 LIPID - LIPID PANEL - LC 05/15/2013 58302 TSH - TSH - LC 05/15/2013 28850 MALB - MICROALBUMIN - LC 05/15/2013 33916 GLUCOSE 08/11/2013 19698 HEMOGLOBIN A1C 08/11/2013 38949 CBC WITH DIFF 08/12/2013 51638 GLUCOSE 10/07/2013 4000F TOBACCO USE TXMNT COUNSELING 10/13/2013 26185 PULSE OXIMETRY 12/12/2013 A4614 PEAK FLOW 12/12/2013 04023 GLUCOSE 12/12/2013 69935 HEMOGLOBIN A1C 12/12/2013 Pulmonary Pulmonary Function Test 01/13/2014 A4614 PEAK FLOW 02/10/2014 81945 PULSE OXIMETRY 02/10/2014 71000 GLUCOSE 02/10/2014 Endocrino Endocrinology 02/13/2014 Pulmonary Pulmonology, Pulmonology 03/13/2014 65076 PULSE OXIMETRY 04/14/2014 A4614 PEAK FLOW 04/14/2014 [...] glucose measurement by glucometer (mass/volume) - 09/18/18 21:24 Capillary blood glucose measurement by glucometer (mass/volume) > mg/dL 70-110 Bacterial urine culture - 09/18/18 21:30 Bacterial urine culture NG [facility] Automated blood complete blood count (hemogram) panel [...] Automated erythrocyte mean corpuscular hemoglobin concentration measurement (mass/volume) 31 g/dL 32-36 Automated erythrocyte distribution width ratio 18.1 % 10.0- 14.5 Automated blood platelet count (count/volume) 269 10*3/uL [...] Serum or plasma aspartate aminotransferase measurement (enzymatic activity/volume) 13 U/L 5-34 Serum or plasma alanine aminotransferase measurement (enzymatic activity/volume) 15 U/L 0-55 Serum or plasma protein measurement (mass/volume) 7.8 g/dL 6.4-8.2 Serum or plasma albumin measurement (mass/volume) 3.9 g/dL 3.2-4.5 CALCIUM CORRECTED 9.4 mg/dL 8.5-10.1 TROPONIN T - 09/18/18 22:05 TROPONIN T < 6 <=10 Lipase - 09/18/18 22:05 Lipase 89 U/L 8-78 Capillary blood glucose measurement by glucometer (mass/volume) - 09/19/18 00:34 Capillary blood glucose measurement by glucometer (mass/volume) > mg/dL 70-110 Whole blood basic metabolic panel - [...] glucose measurement by glucometer (mass/volume) - 09/19/18 03:58 Capillary blood glucose measurement by glucometer (mass/volume) 465 mg/dL 70-110 Capillary blood glucose measurement by glucometer (mass/volume) - 09/19/18 07:24 Capillary blood glucose measurement by glucometer (mass/volume) 444 mg/dL 70-110 LIPID PANEL - 09/25/18 09:00 CHOLESTEROL, TOTAL 154 mg/dL <200 HDL CHOLESTEROL 42 mg/dL >50 TRIGLYCERIDES 259 mg/dL <150 LDL-CHOLESTEROL 78 mg/dL (calc) NRG CHOL/HDLC RATIO 3.7 (calc) <5.0 NON HDL CHOLESTEROL 112 mg/dL (calc) <130 CMP - 09/25/18 09:00 GLUCOSE 223 mg/dL 65-99 UREA NITROGEN (BUN) 14 mg/dL 7-25 CREATININE 0.90 mg/dL 0.50-1.05 eGFR NON-AFR. [place] 74 mL/min/1.73m2 > OR=60 eGFR 86 mL/min/1.73m2 [...] RATIO, RANDOM URINE 13 mcg/mg creat <30 Capillary blood glucose measurement by glucometer (mass/volume) - 10/13/18 17:20 Capillary blood glucose measurement by glucometer (mass/volume) [...] Automated erythrocyte mean corpuscular hemoglobin concentration measurement (mass/volume) 31 g/dL 32-36 Automated erythrocyte distribution width ratio 19.6 % 10.0- 14.5 Automated blood platelet count (count/volume) 478 10*3/uL [...] Blood monocytes automated count (number/volume) 0.1 10*3 0.0- 1.0 Automated eosinophil count 0.1 10*3/uL 0.0-0.3 Automated blood basophil count (count/volume) 0.0 10*3/uL 0.0-0.1 Fibrin D-dimer FEU measurement in platelet poor plasma (mass/volume) - 10/13/18 17:36 Fibrin D-dimer FEU measurement in platelet [...] Serum or plasma aspartate aminotransferase measurement (enzymatic activity/volume) 14 U/L 5-34 Serum or plasma alanine aminotransferase measurement (enzymatic activity/volume) 22 U/L 0-55 Serum or plasma protein measurement (mass/volume) 7.4 g/dL 6.4-8.2 Serum or plasma albumin measurement (mass/volume) 4.1 g/dL 3.2-4.5 CALCIUM CORRECTED 9.6 mg/dL 8.5-10.1 Magnesium - 10/13/18 17:36 Magnesium 2.1 mg/dL 1.8-2.4 Complete blood count (CBC) with automated white blood cell (WBC) differential - 10/16/18 23:23 Blood leukocytes automated count (number/volume) 3.8 10*3/uL 4.3-11.0 Blood erythrocytes automated count (number/volume) 3.42 10*6/uL 4.35-5.85 Venous blood hemoglobin measurement (mass/volume) 9.0 g/dL 11.5-16.0 Blood hematocrit (volume fraction) 29 % 35-52 Automated erythrocyte mean corpuscular volume 83 [foz_us] 80-99 Automated erythrocyte mean corpuscular hemoglobin (mass per erythrocyte) 26 pg 25-34 Automated erythrocyte mean corpuscular hemoglobin concentration measurement (mass/volume) 32 g/dL 32-36 Automated erythrocyte distribution width ratio 19.2 % 10.0- 14.5 Automated blood platelet count (count/volume) 264 10*3/uL 130-400 Automated blood platelet mean volume measurement 10.0 [foz_us] 7.4-10.4 Automated blood neutrophils/100 leukocytes 39 % 42-75 Automated blood lymphocytes/100 leukocytes 56 % 12-44 Blood monocytes/100 leukocytes 3 % 0-12 Automated blood eosinophils/100 leukocytes 0 % 0-10 Automated blood basophils/100 leukocytes 2 % 0-10 Blood neutrophils automated count (number/volume) 1.5 10*3 1.8-7.8 Blood lymphocytes automated count (number/volume) 2.1 10*3 1.0-4.0 Blood monocytes automated count (number/volume) 0.1 10*3 0.0- 1.0 Automated eosinophil count 0.0 10*3/uL 0.0-0.3 Automated blood basophil count (count/volume) 0.1 10*3/uL 0.0-0.1 Comprehensive metabolic panel - 10/16/18 23:23 Serum or plasma sodium measurement (moles/volume) 132 mmol/L 135-145 Serum or plasma potassium measurement (moles/volume) 3.7 mmol/L 3.6-5.0 Serum or plasma chloride measurement (moles/volume) 92 mmol/L 98-107 Carbon dioxide 20 mmol/L 21-32 Serum or plasma anion gap determination (moles/volume) 20 mmol/L 5-14 Serum or plasma urea nitrogen measurement (mass/volume) 16 mg/dL 7-18 Serum or plasma creatinine measurement (mass/volume) 1.15 mg/dL 0.60-1.30 Serum or plasma urea nitrogen/creatinine mass ratio 14 NRG Serum or plasma creatinine measurement with calculation of estimated glomerular filtration rate 50 NRG Serum or plasma glucose measurement (mass/volume) 305 mg/dL 70-105 Serum or plasma calcium measurement (mass/volume) 8.8 mg/dL 8.5-10.1 Serum or plasma total bilirubin measurement (mass/volume) 0.2 mg/dL 0.1-1.0 Serum or plasma alkaline phosphatase measurement (enzymatic activity/volume) 119 U/L 40-136 Serum or plasma aspartate aminotransferase measurement (enzymatic activity/volume) 11 U/L 5-34 Serum or plasma alanine aminotransferase measurement (enzymatic activity/volume) 18 U/L 0-55 Serum or plasma protein measurement (mass/volume) 6.7 g/dL 6.4-8.2 Serum or plasma albumin measurement (mass/volume) 3.8 g/dL 3.2-4.5 CALCIUM CORRECTED 9.0 mg/dL 8.5-10.1 C Wound - 10/30/18 17:22 Pre Many [...] <=0.5 Tetra <=1 Tige <=0.12 Vanc <=0.5 Capillary blood glucose measurement by glucometer (mass/volume) - 10/30/18 22:23 Capillary blood glucose measurement by glucometer (mass/volume) > mg/dL 70-110 Capillary blood glucose measurement by glucometer (mass/volume) - 10/30/18 23:54 Capillary blood glucose measurement by glucometer (mass/volume) > mg/dL 70-110 Blood CBC with ordered manual differential panel - 11/06/18 18:25 Blood leukocytes automated count (number/volume) 9.3 10*3/uL 4.3-11.0 Blood erythrocytes automated count (number/volume) 2.68 10*6/uL 4.35-5.85 Venous blood hemoglobin measurement (mass/volume) 7.3 g/dL 11.5-16.0 Blood hematocrit (volume fraction) 23 % 35-52 Automated erythrocyte mean corpuscular volume 86 [foz_us] 80-99 Automated erythrocyte mean corpuscular hemoglobin (mass per erythrocyte) 27 pg 25-34 Automated erythrocyte mean corpuscular hemoglobin concentration measurement (mass/volume) 32 g/dL 32-36 Automated erythrocyte distribution width ratio 22.3 % 10.0- 14.5 Automated blood platelet count (count/volume) 138 10*3/uL 130-400 Automated blood platelet mean volume measurement 11.3 [foz_us] 7.4-10.4 Automated blood neutrophils/100 leukocytes 67 % 42-75 Automated blood lymphocytes/100 leukocytes 20 % 12-44 Blood monocytes/100 leukocytes 4 % NRG Automated blood eosinophils/100 leukocytes 0 % 0-10 Automated blood basophils/100 leukocytes 1 % 0-10 Blood neutrophils automated count (number/volume) 6.2 10*3 1.8-7.8 Blood lymphocytes automated count (number/volume) 1.9 10*3 1.0-4.0 Blood monocytes automated count (number/volume) 1.0 10*3 0.0- 1.0 Automated eosinophil count 0.0 10*3/uL 0.0-0.3 Automated blood basophil count (count/volume) 0.1 10*3/uL 0.0-0.1 Manual blood segmented neutrophils/100 leukocytes 72 % NRG Blood band neutrophils/100 leukocytes 3 % NRG Manual blood lymphocytes/100 leukocytes 19 % NRG Manual eosinophils/100 leukocytes in nose 1 % NRG Manual blood basophils/100 leukocytes 1 % NRG Blood anisocytosis detection by light microscopy SLIGHT NRG Blood dohle body detection by light microscopy SLIGHT NRG Blood microcytes detection by light microscopy SLIGHT NRG Comprehensive metabolic panel - 11/06/18 18:25 Serum or plasma sodium measurement (moles/volume) 128 mmol/L 135-145 Serum or plasma potassium measurement (moles/volume) 4.0 mmol/L 3.6-5.0 Serum or plasma chloride measurement (moles/volume) 92 mmol/L 98-107 Carbon dioxide 26 mmol/L 21-32 Serum or plasma anion gap determination (moles/volume) 10 mmol/L 5-14 Serum or plasma urea nitrogen measurement (mass/volume) 14 mg/dL 7-18 Serum or plasma creatinine measurement (mass/volume) 1.60 mg/dL 0.60-1.30 Serum or plasma urea nitrogen/creatinine mass ratio 9 NRG Serum or plasma creatinine measurement with calculation of estimated glomerular filtration rate 34 NRG Serum or plasma glucose measurement (mass/volume) 420 mg/dL 70-105 Serum or plasma calcium measurement (mass/volume) 8.8 mg/dL 8.5-10.1 Serum or plasma total bilirubin measurement (mass/volume) 0.3 mg/dL 0.1-1.0 Serum or plasma alkaline phosphatase measurement (enzymatic activity/volume) 146 U/L 40-136 Serum or plasma aspartate aminotransferase measurement (enzymatic activity/volume) 6 U/L 5-34 Serum or plasma alanine aminotransferase measurement (enzymatic activity/volume) 11 U/L 0-55 Serum or plasma protein measurement (mass/volume) 7.0 g/dL 6.4-8.2 Serum or plasma albumin measurement (mass/volume) 3.3 g/dL 3.2-4.5 CALCIUM CORRECTED 9.4 mg/dL 8.5-10.1 TROPONIN T - 11/06/18 18:25 TROPONIN T 11 % <=10 Blood lactic acid measurement (moles/volume) - 11/06/18 18:55 Blood lactic acid measurement (moles/volume) 1.19 mmol/L 0.50- 2.00 Bacterial blood culture - 11/06/18 18:55 Bacterial blood culture NG NRG Influenza virus A and B antigen detection - 11/06/18 18:59 FLU RESULT NEGATIVE FOR INFLUENZA A AND B ANTIGENS BY IA [facility] Bacterial blood culture - 11/06/18 19:08 Bacterial blood culture [facility] Capillary blood glucose measurement by glucometer (mass/volume) - 11/06/18 21:05 Capillary blood glucose measurement by glucometer (mass/volume) 418 mg/dL 70-110 Capillary blood glucose measurement by glucometer (mass/volume) - 11/06/18 22:18 Capillary blood glucose measurement by glucometer (mass/volume) 403 mg/dL 70-110 Capillary blood glucose measurement by glucometer (mass/volume) - 11/14/18 22:05 Capillary blood glucose measurement by glucometer (mass/volume) 73 mg/dL 70-110 Whole blood basic metabolic panel - 11/14/18 22:40 Serum or plasma sodium measurement (moles/volume) 140 mmol/L 135-145 Serum or plasma potassium measurement (moles/volume) 3.8 mmol/L 3.6-5.0 Serum or plasma chloride measurement (moles/volume) 99 mmol/L 98-107 Carbon dioxide 23 mmol/L 21-32 Serum or plasma anion gap determination (moles/volume) 18 mmol/L 5-14 Serum or plasma urea nitrogen measurement (mass/volume) 12 mg/dL 7-18 Serum or plasma creatinine measurement (mass/volume) 0.96 mg/dL 0.60-1.30 Serum or plasma urea nitrogen/creatinine mass ratio 13 NRG Serum or plasma creatinine measurement with calculation of estimated glomerular filtration rate > [facility] Serum or plasma glucose measurement (mass/volume) 69 mg/dL 70-105 Serum or plasma calcium measurement (mass/volume) 9.4 mg/dL 8.5-10.1 Blood lactic acid measurement (moles/volume) - 11/29/18 09:20 Blood lactic acid measurement (moles/volume) 1.63 mmol/L 0.50- 2.00 Comprehensive metabolic panel - 11/29/18 09:20 Serum or plasma sodium measurement (moles/volume) 133 mmol/L 135-145 Serum or plasma potassium measurement (moles/volume) 4.5 mmol/L 3.6-5.0 Serum or plasma chloride measurement (moles/volume) 97 mmol/L 98-107 Carbon dioxide 18 mmol/L 21-32 Serum or plasma anion gap determination (moles/volume) 18 mmol/L 5-14 Serum or plasma urea nitrogen measurement (mass/volume) 35 mg/dL 7-18 Serum or plasma creatinine measurement (mass/volume) 3.51 mg/dL 0.60-1.30 Serum or plasma urea nitrogen/creatinine mass ratio 10 NRG Serum or plasma creatinine measurement with calculation of estimated glomerular filtration rate 14 NRG Serum or plasma glucose measurement (mass/volume) 157 mg/dL 70-105 Serum or plasma calcium measurement (mass/volume) 8.1 mg/dL 8.5-10.1 Serum or plasma total bilirubin measurement (mass/volume) 0.3 mg/dL 0.1-1.0 Serum or plasma alkaline phosphatase measurement (enzymatic activity/volume) 80 U/L 40-136 Serum or plasma aspartate aminotransferase measurement (enzymatic activity/volume) 9 U/L 5-34 Serum or plasma alanine aminotransferase measurement (enzymatic activity/volume) 10 U/L 0-55 Serum or plasma protein measurement (mass/volume) 6.1 g/dL 6.4-8.2 Serum or plasma albumin measurement (mass/volume) 3.0 g/dL 3.2-4.5 CALCIUM CORRECTED 8.9 mg/dL 8.5-10.1 Magnesium - 11/29/18 09:20 Magnesium 1.8 mg/dL 1.8-2.4 Lipase - 11/29/18 09:20 Lipase 26 U/L 8-78 Complete blood count (CBC) with automated white blood cell (WBC) differential - 11/29/18 09:20 Blood leukocytes automated count (number/volume) 11.6 10*3/uL 4.3-11.0 Blood erythrocytes automated count (number/volume) 3.33 10*6/uL 4.35-5.85 Venous blood hemoglobin measurement (mass/volume) 9.3 g/dL 11.5-16.0 Blood hematocrit (volume fraction) 31 % 35-52 Automated erythrocyte mean corpuscular volume 93 [foz_us] 80-99 Automated erythrocyte mean corpuscular hemoglobin (mass per erythrocyte) 28 pg 25-34 Automated erythrocyte mean corpuscular hemoglobin concentration measurement (mass/volume) 30 g/dL 32-36 Automated erythrocyte distribution width ratio 22.8 % 10.0- 14.5 Automated blood platelet count (count/volume) 233 10*3/uL 130-400 Automated blood platelet mean volume measurement 9.9 [foz_us] 7.4-10.4 Automated blood neutrophils/100 leukocytes 70 % 42-75 Automated blood lymphocytes/100 leukocytes 13 % 12-44 Blood monocytes/100 leukocytes 7 % 0-12 Automated blood eosinophils/100 leukocytes 9 % 0-10 Automated blood basophils/100 leukocytes 1 % 0-10 Blood neutrophils automated count (number/volume) 8.1 10*3 1.8-7.8 Blood lymphocytes automated count (number/volume) 1.5 10*3 1.0-4.0 Blood monocytes automated count (number/volume) 0.8 10*3 0.0- 1.0 Automated eosinophil count 1.1 10*3/uL 0.0-0.3 Automated blood basophil count (count/volume) 0.1 10*3/uL 0.0-0.1 Bacterial blood culture - 11/29/18 09:20 Bacterial blood culture NG NRG Bacterial blood culture - 11/29/18 09:55 Bacterial blood culture NG NRG Complete urinalysis with reflex to culture - 11/29/18 10:10 Urine color determination AKBAR NRG Urine clarity determination CLEAR NRG Urine pH measurement by test strip 5.5 5-9 Specific gravity of urine by test strip 1.010 1.016-1.022 Urine protein assay by test strip, semi-quantitative NEGATIVE NEGATIVE Urine glucose detection by automated test strip NEGATIVE NEGATIVE Erythrocytes detection in urine sediment by light microscopy 1+ NEGATIVE Urine ketones detection by automated test strip NEGATIVE NEGATIVE Urine nitrite detection by test strip POSITIVE NEGATIVE Urine total bilirubin detection by test strip NEGATIVE NEGATIVE Urine urobilinogen measurement by automated test strip (mass/volume) 0.2 mg/dL NORMAL Urine leukocyte esterase detection by dipstick 1+ NEGATIVE Automated urine sediment erythrocyte count by microscopy (number/high power field) [HPF] NRG Automated urine sediment leukocyte count by microscopy (number/high power field) [HPF] NRG Bacteria detection in urine sediment by light microscopy FEW NRG Squamous epithelial cells detection in urine sediment by light microscopy RARE NRG Crystals detection in urine sediment by light microscopy PRESENT NRG Casts detection in urine sediment by light microscopy PRESENT NRG Mucus detection in urine sediment by light microscopy SMALL NRG Complete urinalysis with reflex to culture YES NRG Amorphous sediment detection in urine sediment by light microscopy FEW VENU URATES NRG Hyaline casts detection in urine sediment by light microscopy RARE NRG Bacterial urine culture - 11/29/18 10:10 Bacterial urine culture NG NRG Complete urinalysis with reflex to culture - 12/14/18 15:18 Urine color determination YELLOW NRG Urine clarity determination SLT CLOUDY NRG Urine pH measurement by test strip 6.0 5-9 Specific gravity of urine by test strip 1.025 1.016-1.022 Urine protein assay by test strip, semi-quantitative 1+ NEGATIVE Urine glucose detection by automated test strip 3+ NEGATIVE Erythrocytes detection in urine sediment by light microscopy 1+ NEGATIVE Urine ketones detection by automated test strip NEGATIVE NEGATIVE Urine nitrite detection by test strip NEGATIVE NEGATIVE Urine total bilirubin detection by test strip NEGATIVE NEGATIVE Urine urobilinogen measurement by automated test strip (mass/volume) 0.2 mg/dL NORMAL Urine leukocyte esterase detection by dipstick TRACE NEGATIVE Automated urine sediment erythrocyte count by microscopy (number/high power field) [HPF] NRG Automated urine sediment leukocyte count by microscopy (number/high power field) [HPF] NRG Bacteria detection in urine sediment by light microscopy TRACE NRG Squamous epithelial cells detection in urine sediment by light microscopy 0-2 NRG Crystals detection in urine sediment by light microscopy NONE NRG Casts detection in urine sediment by light microscopy NONE NRG Mucus detection in urine sediment by light microscopy SMALL NRG Complete urinalysis with reflex to culture YES NRG Bacterial urine culture - 12/14/18 15:18 Bacterial urine culture YEAST NRG COLONY COUNT 80,000 CFU/ML NRG FTX;REPORTABLE RML AMENDED REPORT RCD 12/17 09:05 NRG Capillary blood glucose measurement by glucometer (mass/volume) - 12/14/18 15:27 Capillary blood glucose measurement by glucometer (mass/volume) 243 mg/dL 70-110 Encounters ACCT No. Visit Date/Time Discharge Status Pt. Type Provider Facility Loc./Unit Complaint [id number] 10/30/2018 17:22:00 Document Registration [id number] 10/30/2018 17:22:00 Document Registration [id number] 11/08/2018 15:22:59 ACT Document Registration [id number] 12/12/2018 10:07:04 ACT Unknown Halle Sahni MD [id number] 08/26/2018 07:22:56 08/26/2018 23:59:59 DIS Outpatient DANAY SORIA V [facility] [id number] 05/30/2018 08:41:17 05/30/2018 23:59:59 DIS Outpatient LINDA SAHNI [facility] [id number] 04/25/2018 12:24:37 04/25/2018 23:59:59 CLS Preadmit LINDA SAHNI [facility] ops [id number] 12/19/2018 10:50:28 Document Registration [id number] 11/13/2018 14:34:59 Document Registration [id number] 08/06/2018 13:35:03 Document Registration [id number] 07/05/2018 09:35:35 ACT V AMADOU ROBERT [facility] [id number] 06/18/2018 06:13:13 Inpatient LINDA SAHNI [facility] ops [id number] 12/14/2018 14:21:00 12/14/2018 16:45:00 DIS Emergency GINA BATEMAN, LUCÍA Serrato [facility] ER FS ABD PAIN,VAGINAL PAIN FROM CATHETER [id number] 12/12/2018 13:47:00 12/12/2018 23:59:59 CLS Outpatient JERI BATEMAN, MANASA Funes [facility] RAD FS R10.84 GEN ABD PAIN [id number] 11/29/2018 08:34:00 11/29/2018 16:55:00 DIS Emergency DIANE DELCID MD [facility] ER FS URINARY RETENTION [id number] 11/14/2018 21:43:00 11/14/2018 23:23:00 DIS Emergency DANIEL HERNANDEZ MD [facility] ER FS BLOOD SUGAR ISSUES [id number] 11/06/2018 17:40:00 11/07/2018 01:30:00 DIS Outpatient JAME CULVER DO [facility] ER FS SOB,CHEST PAIN [id number] 10/30/2018 20:30:00 10/31/2018 00:33:00 DIS Emergency DIANE DELCID MD [facility] ER FS SOB, HIGH BLOOD SUGAR, ABD SORE [id number] 10/16/2018 22:53:00 10/17/2018 00:25:00 DIS Emergency BHAVIN BATEMAN, DIANE Franco [facility] ER FS CHEST PAINS [id number] 10/13/2018 17:02:00 10/13/2018 20:45:00 DIS Emergency DANIEL HERNANDEZ MD [facility] ER FS CHEST PAIN,SOB [id number] 09/18/2018 20:56:00 09/19/2018 07:30:00 DIS Emergency DIONY DICK DOJEANCARLOS Osorio [facility] ER FS HIGH BLOOD SUGAR, SOB [id number] 09/12/2018 14:20:00 09/12/2018 15:56:00 DIS Emergency DANIEL HERNANDEZ MD [facility] ER FS FALL; RT HIP/MI WRIST INJ [id number] 12/18/2018 12:00:00 ACT Outpatient MANASA WILCOX [facility] [id number] 10/07/2018 13:15:00 Document Registration [id number] 09/25/2018 09:45:00 Document Registration [id number] 04/14/2014 08:59:00 04/14/2014 11:05:00 DIS Outpatient HEATHER IRVIN APRN [id number] 02/10/2014 09:57:00 02/10/2014 23:59:59 CLS Outpatient HEATHER IRVIN APRN [id number] 02/10/2014 09:57:00 02/10/2014 23:59:59 CLS Outpatient HEATHER IRVIN APRN [id number] 12/12/2013 10:38:00 12/12/2013 23:59:59 CLS Outpatient HEATHER IRVIN APRN [id number] 10/07/2013 14:37:00 10/13/2013 20:05:00 DIS Outpatient HEATHER IRVIN APRN [id number] 10/07/2013 14:37:00 10/07/2013 23:59:59 CLS Outpatient HEATHER IRVIN APRN [id number] 08/11/2013 10:11:00 08/11/2013 13:49:00 DIS Outpatient HEATHER IRVIN APRN [id number] 05/08/2013 09:56:00 05/08/2013 23:59:59 CLS Outpatient MARIANNA FAUST APRN [id number] 01/08/2013 08:25:00 01/08/2013 23:59:59 CLS Outpatient GOVIND MARIANNA WRIGHT [id number] 10/15/2014 15:34:45 10/15/2014 23:59:00 [id number] 08/12/2014 12:31:00 08/12/2014 14:34:00 DIS Emergency [facility] FED [id number] 06/21/2014 16:47:00 06/21/2014 17:52:00 DIS Emergency [facility] FED [id number] 09/02/2014 00:00:00 Document Registration
[2018-12-21] MEDS ORDERED: HYOSCYAMINE 0.125 MG (LEVSIN) TAB PO STA (19:28)
[2018-12-21] MEDS ORDERED: oxyCODONE/APAP 5/325MG (PERCOCET 5) TABLET PO STA (19:28)
[2018-12-21] MEDS ORDERED: HYOS0.1283 SL (19:33)
[2018-12-21] MEDS ORDERED: OXYC-471 PO (19:33)
--- NOTE | 2018-12-21 19:33 | ED General ---
General Chief Complaint: General Problems/Pain Stated Complaint: SOB,VAGINAL PAIN Nursing Triage Note: PATIEN C/O VAGINAL PAIN/BLADDER SPASMS. STATES THAT THE PAIN BEGAN A FEW DAYS AGO AND IS UNABLE TO SIT COMFORTABLY. Nursing Sepsis Screen: No Definite Risk Source of Information: Patient History of Present Illness Date Seen by Provider: Dec 21, 2018 Time Seen by Provider: 19:08 Initial Comments 53-year-old female presenting with complaints of recurrent spasming pain in her bladder where she has an indwelling Sherman catheter. She has an appointment to see Dr. Sahni this week about her catheter to see if it can be removed. She has been having pain for over 3 days. She denies any fever or chills. She has had no trauma to her catheter or abdomen. She has not tried contacting Dr. Sahni about this. She has been using her Percocet pain pills at home for the bladder spasms with some improvement. But now she is out of the pain medicine and comes to the ER to be evaluated. Allergies and Home Medications Allergies Coded Allergies: No Known Drug Allergies (Unverified , 10/16/18) Home Medications Cephalexin 250 Mg Capsule, 250 MG PO BID Prescribed by: LUCÍA FUENTES on 12/14/18 1652 Hyoscyamine Sulfate 0.125 Mg Tab.subl, 0.125 MG SL Q4H PRN for bladder spasm/pain Prescribed by: DIANE DELCID on 12/21/181932 Levofloxacin 750 Mg Tablet, 750 MG PO DAILY Prescribed by: LUCÍA FUENTES on 12/14/18 1636 Oxycodone HCl/Acetaminophen 1 Each Tablet, 1 TAB PO Q4H PRN for PAIN-MODERATE Prescribed by: LUCÍA FUENTES on 12/14/18 1634 Oxycodone HCl/Acetaminophen 1 Each Tablet, 1 EACH PO Q4H PRN for PAIN-SEVERE Prescribed by: DIANE DELCID on 12/21/18 193 Patient Home Medication List Home Medication List Reviewed: Yes Review of Systems Review of Systems Constitutional: No chills, No fever EENTM: no symptoms reported Respiratory: no symptoms reported Cardiovascular: no symptoms reported Gastrointestinal: abdominal pain (suprapubic pain and bladder spasms); No nausea, No vomiting Genitourinary: pain (spasms in her bladder with indwelling catheter) Musculoskeletal: no symptoms reported Skin: no symptoms reported Psychiatric/Neurological: Anxiety Past Iiyhsic-Ynohtt-Pvrpsh Hx Past Med/Social Hx: Reviewed Nursing Past Med/Soc Hx Patient Social History Alcohol Use: Denies Use Recreational Drug Use: No Drug of Choice: marijuana Smoking Status: Current Everyday Smoker Type Used: Cigarettes 2nd Hand Smoke Exposure: Yes Recent Foreign Travel: No Contact w/Someone Who Travel: No Recent Infectious Disease Expo: No Recent Hopitalizations: No Physical Abuse: No Sexual Abuse: No Mistreated: No Fear: No Seasonal Allergies Seasonal Allergies: No Past Medical History Surgeries: Yes Abdominal, Hysterectomy, Nephrectomy, Tonsillectomy, Tubal Ligation Respiratory: Yes Asthma Currently Using CPAP: No Currently Using BIPAP: No Cardiac: No Hypertension Neurological: No 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 has multiple lesions on her abd and under the folds.) Blood Disorders: No Adverse Reaction/Blood Tranf: No Physical Exam Vital Signs Vital Signs - First Documented 12/21/18 18:10 Temp 99.0 Pulse 79 Resp 22 B/P (MAP) 130/65 (86) Pulse Ox 94 O2 Delivery Room Air Capillary Refill : Less Than 3 Seconds Height, Weight, BMI Height: 5'7.00" Weight: 239lbs. 0oz. 108.040768xm; BMI Method:Stated General Appearance: WD/WN, Chronically ill, Obese Respiratory: Chest Non Tender, Lungs Clear, No Accessory Muscle Use, No Respiratory Distress, Decreased Breath Sounds Cardiovascular: Regular Rate, Rhythm Gastrointestinal: Normal Bowel Sounds, No Pulsatile Mass, Soft, Tenderness (suprapubic area) Neurologic/Psychiatric: Alert, Oriented x3 Skin: Normal Color, Warm/Dry Progress/Results/Core Measures Suspected Sepsis Recent Fever Within 48 Hours: No Infection Criteria Present: None New/Unexplained Altered Menta: No Sepsis Screen: No Definite Risk SIRS Temperature:99.0 Pulse: 79 Respiratory Rate: 22 Blood Pressure 130 /65 Mean: 86 Results/Orders My Orders Orders - DIANE DELCID MD Hyoscyamine Sl Tablet (Levsin Sl Tablet) (12/21/18 19:28) Oxycodone/Apap 5/325mg Tablet (Percocet (12/21/18 19:28) Vital Signs/I&O 12/21/18 12/21/18 18:10 19:56 Temp 99.0 99.0 Pulse 79 79 Resp 22 22 B/P (MAP) 130/65 (86) 130/65 (86) Pulse Ox 94 94 O2 Delivery Room Air Capillary Refill : Less Than 3 Seconds Blood Pressure Mean: 86 Progress Note : Progress Note d/w pt that can try a medicine for bladder spasms and then have her check back with Dr. Sahni. Will give her a few more of the Percocet for pain until she can get in with him. Departure Impression Primary Impression: Painful bladder spasm Disposition: HOME, SELF-CARE Condition: Stable Departure-Patient Inst. Decision time for Depature: 19:29 Referrals: MANASA WILCOX MD (PCP) Primary Care Physician PRIYA LIRIANO (Family) Primary Care Physician Patient Instructions: Bladder Spasms (DC) Add. Discharge Instructions: Take the medicine for bladder spasms and check with Dr. Sahni Sunday or as scheduled on Sunday You could continue to take the Percocet to help with pain as well but it will make you constipated and not help with spasms as much as the one specifically for bladder spasms. All discharge instructions reviewed with patient and/or family. Voiced understanding. Scripts Oxycodone HCl/Acetaminophen (Oxycodone-Acetaminophen 5-325) 1 Each Tablet 1 EACH PO Q4H PRN for PAIN-SEVERE MDD 6 for 3 Days, #20 TAB 0 Refills Prov: DIANE DELCID MD 12/21/18 Hyoscyamine Sulfate (Levsin-Sl) 0.125 Mg Tab.subl 0.125 MG SL Q4H PRN for bladder spasm/pain for 3 Days, #20 TAB 0 Refills Prov: DIANE DELCID MD 12/21/18 DIANE DELCID MD Dec 21, 2018 19:33
[2018-12-21 19:56] VITALS: BP 130/65
== END 2018-12-21 19:50 | disposition home or self-care (01) ==
LOC: EDUNIT# 17:57 → ER FS 17:59
DX: N32.89 Other specified disorders of bladder (principal); J45.909 Unspecified asthma, uncomplicated; E11.9 Type 2 diabetes mellitus without complications; I10 Essential (primary) hypertension; F17.210 Nicotine dependence, cigarettes, uncomplicated; Z87.448 Personal history of other diseases of urinary system; Z85.528 Personal history of other malignant neoplasm of kidney; Z92.21 Personal history of antineoplastic chemotherapy; Z87.442 Personal history of urinary calculi; Z90.710 Acquired absence of both cervix and uterus; Z98.51 Tubal ligation status; Z90.89 Acquired absence of other organs; Z90.5 Acquired absence of kidney; Z96.0 Presence of urogenital implants
CPT/HCPCS: 99283

== ENCOUNTER 2019-01-02 04:58 | Emergency (ER) | payer MEDICAID ==
[~2019-01-02] VITALS: Ht 170.2 cm; Wt 108.4 kg
[~2019-01-02 04:58] MED LIST changes: +HYOS0.1283 SL; +OXYC-471 PO
[2019-01-02 05:30] LABS: BILIRUBIN,URINE NEGATIVE (NEGATIVE); CLARITY,URINE CLEAR; COLOR,URINE YELLOW; GLUCOSE, URINE (UA) NEGATIVE (NEGATIVE); KETONES,URINE NEGATIVE (NEGATIVE); LEUKOCYTE ESTERASE ,URINE 2+ (NEGATIVE); NITRITE,URINE NEGATIVE (NEGATIVE); PH,URINE 6 (5-9); PROTEIN,URINE TRACE (NEGATIVE); UROBILINOGEN,URINE NORMAL (NORMAL)
[2019-01-02 05:31] LABS: BACTERIA,URINE FEW /HPF; SQUAMOUS EPITHELIAL CELL,UR 0-2 /HPF; WBC,URINE 25-50 /HPF; YEAST,URINE MODERATE /HPF
[2019-01-02] MEDS ORDERED: PHEN-640 PO (05:45)
[2019-01-02] MEDS ORDERED: FLUC100T PO (05:45)
[2019-01-02] MEDS ORDERED: AMOX-358 PO (05:45)
[2019-01-02] MEDS ORDERED: PHENAZOPYRIDINE 100 MG (PYRIDIUM) TABLET PO ONE (05:45)
[2019-01-02] MEDS ORDERED: AUGMENTIN 875 MG TAB (AMOXICILLIN/CLAVULANATE) PO STA (05:48)
[2019-01-02 05:55] VITALS: BP 155/83
--- OUTSIDE RECORDS SUMMARY | 2019-01-02 06:59 | XMS REPORT | Continuity of Care Document ---
Demographics Preferred Language Unknown Marital Status Unknown Adventism Affiliation Unknown Race Unknown Ethnic Group Unknown Author Organization Unknown Address Unknown Allergies Active Description Code Type Severity Reaction Onset Reported/Identified Relationship to Patient Clinical Status Yes No Known Medication Allergies Drug N/A N/A Yes No Known Drug Allergies [id number] Drug Allergy Unknown N/A 10/16/2018 Medications There is no data. Problems Date Dx Coded Attending Type Code Diagnosis Diagnosed By 07/05/2010 [facility] FACULTY RESEARCH ASSISTANT, HEATHER 278.01 OBESITY MORBID 07/05/2010 [facility] FACULTY RESEARCH ASSISTANT, HEATHER 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, Unspecified 07/05/2010 [facility] FACULTY RESEARCH ASSISTANT, HEATHER V15.82 TOBACCOISM 07/05/2010 [facility] FACULTY RESEARCH ASSISTANT, HEATHER 278.01 OBESITY MORBID 07/05/2010 [facility] FACULTY RESEARCH ASSISTANT, HEATHER 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, Unspecified 07/05/2010 [facility] FACULTY RESEARCH ASSISTANT, HEATHER V15.82 TOBACCOISM 07/05/2010 [facility] FACULTY RESEARCH ASSISTANT, HEATHER 278.01 OBESITY MORBID 07/05/2010 [facility] FACULTY RESEARCH ASSISTANT, HEATHER 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, Unspecified 07/05/2010 [facility] FACULTY RESEARCH ASSISTANT, HEATHER V15.82 TOBACCOISM 07/05/2010 [facility] FACULTY RESEARCH ASSISTANT, HEATHER 278.01 OBESITY MORBID 07/05/2010 [facility] FACULTY RESEARCH ASSISTANT, HEATHER 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, Unspecified 07/05/2010 [facility] FACULTY RESEARCH ASSISTANT, HEATHER V15.82 TOBACCOISM 07/05/2010 [facility] FACULTY RESEARCH ASSISTANT, HEATHER 278.01 OBESITY MORBID 07/05/2010 [facility] FACULTY RESEARCH ASSISTANT, HEATHER 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, Unspecified 07/05/2010 [facility] FACULTY RESEARCH ASSISTANT, HEATHER V15.82 TOBACCOISM 07/05/2010 [facility] FACULTY RESEARCH ASSISTANT, HEATHER 278.01 OBESITY MORBID 07/05/2010 [facility] FACULTY RESEARCH ASSISTANT, HEATHER 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, Unspecified 07/05/2010 [facility] FACULTY RESEARCH ASSISTANT, HEATHER V15.82 TOBACCOISM 07/05/2010 [facility] FACULTY RESEARCH ASSISTANT, HEATHER 278.01 OBESITY MORBID 07/05/2010 [facility] FACULTY RESEARCH ASSISTANT, HEATHER 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, Unspecified 07/05/2010 [facility] FACULTY RESEARCH ASSISTANT, HEATHER V15.82 TOBACCOISM 07/05/2010 [facility] FACULTY RESEARCH ASSISTANT, MARIANNA 278.01 OBESITY MORBID 07/05/2010 [facility] FACULTY RESEARCH ASSISTANT, MARIANNA 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, Unspecified 07/05/2010 [facility] FACULTY RESEARCH ASSISTANT, MARIANNA V15.82 TOBACCOISM 07/05/2010 [facility] FACULTY RESEARCH ASSISTANT, MARIANNA 278.01 OBESITY MORBID 07/05/2010 [facility] FACULTY RESEARCH ASSISTANT, MARIANNA 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, Unspecified 07/05/2010 [facility] FACULTY RESEARCH ASSISTANT, MARIANNA V15.82 TOBACCOISM 07/07/2010 [facility] FACULTY RESEARCH ASSISTANT, HEATHER 280.9 Anemia Hypochromic / Microcytic 07/07/2010 [facility] FACULTY RESEARCH ASSISTANT, HEATHER 796.2 Prehypertension 07/07/2010 [facility] FACULTY RESEARCH ASSISTANT, HEATHER V04.81 Influenza Vaccine 07/07/2010 [facility] FACULTY RESEARCH ASSISTANT, HEATHER V68.89 Encounters For Other Specified Administrative Purpose 07/07/2010 [facility] FACULTY RESEARCH ASSISTANT, HEATHER V72.31 Routine Pelvic Exam 07/07/2010 [facility] FACULTY RESEARCH ASSISTANT, HEATHER 280.9 Anemia Hypochromic / Microcytic 07/07/2010 [facility] FACULTY RESEARCH ASSISTANT, HEATHER 796.2 Prehypertension 07/07/2010 [facility] FACULTY RESEARCH ASSISTANT, HEATHER V04.81 Influenza Vaccine 07/07/2010 [facility] FACULTY RESEARCH ASSISTANT, HEATHER V68.89 Encounters For Other Specified Administrative Purpose 07/07/2010 [facility] FACULTY RESEARCH ASSISTANT, HEATHER V72.31 Routine Pelvic Exam 07/07/2010 [facility] FACULTY RESEARCH ASSISTANT, HEATHER 280.9 Anemia Hypochromic / Microcytic 07/07/2010 [facility] FACULTY RESEARCH ASSISTANT, HEATHER 796.2 Prehypertension 07/07/2010 [facility] FACULTY RESEARCH ASSISTANT, HEATHER V04.81 Influenza Vaccine 07/07/2010 [facility] FACULTY RESEARCH ASSISTANT, HEATHER V68.89 Encounters For Other Specified Administrative Purpose 07/07/2010 [facility] FACULTY RESEARCH ASSISTANT, HEATHER V72.31 Routine Pelvic Exam 07/07/2010 [facility] FACULTY RESEARCH ASSISTANT, HEATHER 280.9 Anemia Hypochromic / Microcytic 07/07/2010 [facility] FACULTY RESEARCH ASSISTANT, HEATHER 796.2 Prehypertension 07/07/2010 [facility] FACULTY RESEARCH ASSISTANT, HEATHER V04.81 Influenza Vaccine 07/07/2010 [facility] FACULTY RESEARCH ASSISTANT, HEATHER V68.89 Encounters For Other Specified Administrative Purpose 07/07/2010 [facility] FACULTY RESEARCH ASSISTANT, HEATHER V72.31 Routine Pelvic Exam 07/07/2010 [facility] FACULTY RESEARCH ASSISTANT, HEATHER 280.9 Anemia Hypochromic / Microcytic 07/07/2010 [facility] FACULTY RESEARCH ASSISTANT, HEATHER 796.2 Prehypertension 07/07/2010 [facility] FACULTY RESEARCH ASSISTANT, HEATHER V04.81 Influenza Vaccine 07/07/2010 [facility] FACULTY RESEARCH ASSISTANT, HEATHER V68.89 Encounters For Other Specified Administrative Purpose 07/07/2010 [facility] FACULTY RESEARCH ASSISTANT, HEATHER V72.31 Routine Pelvic Exam 07/07/2010 [facility] FACULTY RESEARCH ASSISTANT, HEATHER 280.9 Anemia Hypochromic / Microcytic 07/07/2010 [facility] FACULTY RESEARCH ASSISTANT, HEATHER 796.2 Prehypertension 07/07/2010 [facility] FACULTY RESEARCH ASSISTANT, HEATHER V04.81 Influenza Vaccine 07/07/2010 [facility] FACULTY RESEARCH ASSISTANT, HEATHER V68.89 Encounters For Other Specified Administrative Purpose 07/07/2010 [facility] FACULTY RESEARCH ASSISTANT, HEATHER V72.31 Routine Pelvic Exam 07/07/2010 [facility] FACULTY RESEARCH ASSISTANT, HEATHER 280.9 Anemia Hypochromic / Microcytic 07/07/2010 [facility] FACULTY RESEARCH ASSISTANT, HEATHER 796.2 Prehypertension 07/07/2010 [facility] FACULTY RESEARCH ASSISTANT, HEATHER V04.81 Influenza Vaccine 07/07/2010 [facility] FACULTY RESEARCH ASSISTANT, HEATHER V68.89 Encounters For Other Specified Administrative Purpose 07/07/2010 [facility] FACULTY RESEARCH ASSISTANT, HEATHER V72.31 Routine Pelvic Exam 07/07/2010 [facility] FACULTY RESEARCH ASSISTANT, MARIANNA 280.9 Anemia Hypochromic / Microcytic 07/07/2010 [facility] FACULTY RESEARCH ASSISTANT, MARIANNA 796.2 Prehypertension 07/07/2010 [facility] FACULTY RESEARCH ASSISTANT, MARIANNA V04.81 Influenza Vaccine 07/07/2010 [facility] FACULTY RESEARCH ASSISTANT, MARIANNA V68.89 Encounters For Other Specified Administrative Purpose 07/07/2010 [facility] FACULTY RESEARCH ASSISTANT, MARIANNA V72.31 Routine Pelvic Exam 07/07/2010 [facility] FACULTY RESEARCH ASSISTANT, MARIANNA 280.9 Anemia Hypochromic / Microcytic 07/07/2010 [facility] FACULTY RESEARCH ASSISTANTEN SunshineE 796.2 Prehypertension 07/07/2010 [facility] FACULTY RESEARCH ASSISTANTMARIANNA Sunshine V04.81 Influenza Vaccine 07/07/2010 [facility] FACULTY RESEARCH ASSISTANTMARIANNA Sunshine V68.89 Encounters For Other Specified Administrative Purpose 07/07/2010 [facility] FACULTY RESEARCH ASSISTANTMARIANNA V72.31 Routine Pelvic Exam 10/20/2010 [facility] FACULTY RESEARCH ASSISTANT, HEATHER 112.1 Candidiasis, Of Vulva And Vagina 10/20/2010 [facility] FACULTY RESEARCH ASSISTANT, HEATHER 599.0 Uti 10/20/2010 [facility] FACULTY RESEARCH ASSISTANT, HEATHER 112.1 Candidiasis, Of Vulva And Vagina 10/20/2010 [facility] FACULTY RESEARCH ASSISTANT, HEATHER 599.0 Uti 10/20/2010 [facility] FACULTY RESEARCH ASSISTANT, HEATHER 112.1 Candidiasis, Of Vulva And Vagina 10/20/2010 [facility] FACULTY RESEARCH ASSISTANT, HEATHER 599.0 Uti 10/20/2010 [facility] FACULTY RESEARCH ASSISTANT, HEATHER 112.1 Candidiasis, Of Vulva And Vagina 10/20/2010 [facility] FACULTY RESEARCH ASSISTANT, HEATHER 599.0 Uti 10/20/2010 [facility] FACULTY RESEARCH ASSISTANT, HEATHER 112.1 Candidiasis, Of Vulva And Vagina 10/20/2010 [facility] FACULTY RESEARCH ASSISTANT, HEATHER 599.0 Uti 10/20/2010 [facility] FACULTY RESEARCH ASSISTANT, HEATHER 112.1 Candidiasis, Of Vulva And Vagina 10/20/2010 [facility] FACULTY RESEARCH ASSISTANT, HEATHER 599.0 Uti 10/20/2010 [facility] FACULTY RESEARCH ASSISTANT, HEATHER 112.1 Candidiasis, Of Vulva And Vagina 10/20/2010 [facility] FACULTY RESEARCH ASSISTANT, HEATHER 599.0 Uti 10/20/2010 [facility] FACULTY RESEARCH ASSISTANT, MARIANNA 112.1 Candidiasis, Of Vulva And Vagina 10/20/2010 [facility] FACULTY RESEARCH ASSISTANT, MARIANNA 599.0 Uti 10/20/2010 [facility] FACULTY RESEARCH ASSISTANT, MARIANNA 112.1 Candidiasis, Of Vulva And Vagina 10/20/2010 [facility] FACULTY RESEARCH ASSISTANT, MARIANNA 599.0 Uti 10/24/2010 [facility] FACULTY RESEARCH ASSISTANT, HEATHER 250.00 DIABETES MELLITUS TYPE 2 10/24/2010 [facility] FACULTY RESEARCH ASSISTANT, HEATHER 466.0 Bronchitis, Acute 10/24/2010 [facility] FACULTY RESEARCH ASSISTANT, HEATHER 496 PULMONARY OBSTRUCTIVE DISORDERS 10/24/2010 [facility] FACULTY RESEARCH ASSISTANT, HEATHER 250.00 DIABETES MELLITUS TYPE 2 10/24/2010 [facility] FACULTY RESEARCH ASSISTANT, HEATHER 466.0 Bronchitis, Acute 10/24/2010 [facility] FACULTY RESEARCH ASSISTANT, HEATHER 496 PULMONARY OBSTRUCTIVE DISORDERS 10/24/2010 [facility] FACULTY RESEARCH ASSISTANT, HEATHER 250.00 DIABETES MELLITUS TYPE 2 10/24/2010 [facility] FACULTY RESEARCH ASSISTANT, HEATHER 466.0 Bronchitis, Acute 10/24/2010 [facility] FACULTY RESEARCH ASSISTANT, HEATHER 496 PULMONARY OBSTRUCTIVE DISORDERS 10/24/2010 [facility] FACULTY RESEARCH ASSISTANT, HEATHER 250.00 DIABETES MELLITUS TYPE 2 10/24/2010 [facility] FACULTY RESEARCH ASSISTANT, HEATHER 466.0 Bronchitis, Acute 10/24/2010 [facility] FACULTY RESEARCH ASSISTANT, HEATHER 496 PULMONARY OBSTRUCTIVE DISORDERS 10/24/2010 [facility] FACULTY RESEARCH ASSISTANT, HEATHER 250.00 DIABETES MELLITUS TYPE 2 10/24/2010 [facility] FACULTY RESEARCH ASSISTANT, HEATHER 466.0 Bronchitis, Acute 10/24/2010 [facility] FACULTY RESEARCH ASSISTANT, HEATHER 496 PULMONARY OBSTRUCTIVE DISORDERS 10/24/2010 [facility] FACULTY RESEARCH ASSISTANT, HEATHER 250.00 DIABETES MELLITUS TYPE 2 10/24/2010 [facility] FACULTY RESEARCH ASSISTANT, HEATHER 466.0 Bronchitis, Acute 10/24/2010 [facility] FACULTY RESEARCH ASSISTANT, HEATHER 496 PULMONARY OBSTRUCTIVE DISORDERS 10/24/2010 [facility] FACULTY RESEARCH ASSISTANT, HEATHER 250.00 DIABETES MELLITUS TYPE 2 10/24/2010 [facility] FACULTY RESEARCH ASSISTANT, HEATHER 466.0 Bronchitis, Acute 10/24/2010 [facility] FACULTY RESEARCH ASSISTANT, HEATHER 496 PULMONARY OBSTRUCTIVE DISORDERS 10/24/2010 [facility] FACULTY RESEARCH ASSISTANT, MARIANNA 250.00 DIABETES MELLITUS TYPE 2 10/24/2010 [facility] FACULTY RESEARCH ASSISTANT, MARIANNA 466.0 Bronchitis, Acute 10/24/2010 [facility] FACULTY RESEARCH ASSISTANT, MARIANNA 496 PULMONARY OBSTRUCTIVE DISORDERS 10/24/2010 [facility] FACULTY RESEARCH ASSISTANT, MARIANNA 250.00 DIABETES MELLITUS TYPE 2 10/24/2010 [facility] FACULTY RESEARCH ASSISTANT, MARIANNA 466.0 Bronchitis, Acute 10/24/2010 [facility] FACULTY RESEARCH ASSISTANT, MARIANNA 496 PULMONARY OBSTRUCTIVE DISORDERS 05/12/2011 [facility] FACULTY RESEARCH ASSISTANT, HEATHER 703.0 Ingrowing Nail 05/12/2011 [facility] FACULTY RESEARCH ASSISTANT, HEATHER 726.91 EXOSTOSIS OF UNSPECIFIED SITE 05/12/2011 [facility] FACULTY RESEARCH ASSISTANT, HEATHER 703.0 Ingrowing Nail 05/12/2011 [facility] FACULTY RESEARCH ASSISTANT, HEATHER 726.91 EXOSTOSIS OF UNSPECIFIED SITE 05/12/2011 [facility] FACULTY RESEARCH ASSISTANT, HEATHER 703.0 Ingrowing Nail 05/12/2011 [facility] FACULTY RESEARCH ASSISTANT, HEATHER 726.91 EXOSTOSIS OF UNSPECIFIED SITE 05/12/2011 [facility] FACULTY RESEARCH ASSISTANT, HEATHER 703.0 Ingrowing Nail 05/12/2011 [facility] FACULTY RESEARCH ASSISTANT, HEATHER 726.91 EXOSTOSIS OF UNSPECIFIED SITE 05/12/2011 [facility] FACULTY RESEARCH ASSISTANT, HEATHER 703.0 Ingrowing Nail 05/12/2011 [facility] FACULTY RESEARCH ASSISTANT, HEATHER 726.91 EXOSTOSIS OF UNSPECIFIED SITE 05/12/2011 [facility] FACULTY RESEARCH ASSISTANT, HEATHER 703.0 Ingrowing Nail 05/12/2011 [facility] FACULTY RESEARCH ASSISTANT, HEATHER 726.91 EXOSTOSIS OF UNSPECIFIED SITE 05/12/2011 [facility] FACULTY RESEARCH ASSISTANT, HEATHER 703.0 Ingrowing Nail 05/12/2011 [facility] FACULTY RESEARCH ASSISTANT, HEATHER 726.91 EXOSTOSIS OF UNSPECIFIED SITE 05/12/2011 [facility] FACULTY RESEARCH ASSISTANT, MARIANNA 703.0 Ingrowing Nail 05/12/2011 [facility] FACULTY RESEARCH ASSISTANT, MARIANNA 726.91 EXOSTOSIS OF UNSPECIFIED SITE 05/12/2011 [facility] FACULTY RESEARCH ASSISTANT, MARIANNA 703.0 Ingrowing Nail 05/12/2011 [facility] FACULTY RESEARCH ASSISTANT, MARIANNA 726.91 EXOSTOSIS OF UNSPECIFIED SITE 06/02/2011 [facility] FACULTY RESEARCH ASSISTANT, HEATHER 078.12 Plantar Wart 06/02/2011 [facility] FACULTY RESEARCH ASSISTANT, HEATHER 078.12 Plantar Wart 06/02/2011 [facility] FACULTY RESEARCH ASSISTANT, HEATHER 078.12 Plantar Wart 06/02/2011 [facility] FACULTY RESEARCH ASSISTANT, HEATHER 078.12 Plantar Wart 06/02/2011 [facility] FACULTY RESEARCH ASSISTANT, HEATHER 078.12 Plantar Wart 06/02/2011 [facility] FACULTY RESEARCH ASSISTANT, HEATHER 078.12 Plantar Wart 06/02/2011 [facility] FACULTY RESEARCH ASSISTANT, HEATHER 078.12 Plantar Wart 06/02/2011 [facility] FACULTY RESEARCH ASSISTANT, MARIANNA 078.12 Plantar Wart 06/02/2011 [facility] FACULTY RESEARCH ASSISTANT, MARIANNA 078.12 Plantar Wart 07/05/2011 [facility] FACULTY RESEARCH ASSISTANT, HEATHER 466.0 ACUTE BRONCHITIS 07/05/2011 [facility] FACULTY RESEARCH ASSISTANT, HEATHER 466.0 ACUTE BRONCHITIS 07/05/2011 [facility] FACULTY RESEARCH ASSISTANT, HEATHER 466.0 ACUTE BRONCHITIS 07/05/2011 [facility] FACULTY RESEARCH ASSISTANT, HEATHER 466.0 ACUTE BRONCHITIS 07/05/2011 [facility] FACULTY RESEARCH ASSISTANT, HEATHER 466.0 ACUTE BRONCHITIS 07/05/2011 [facility] FACULTY RESEARCH ASSISTANT, HEATHER 466.0 ACUTE BRONCHITIS 07/05/2011 [facility] FACULTY RESEARCH ASSISTANT, HEATHER 466.0 ACUTE BRONCHITIS 07/05/2011 [facility] FACULTY RESEARCH ASSISTANT, MARIANNA 466.0 ACUTE BRONCHITIS 07/05/2011 [facility] FACULTY RESEARCH ASSISTANT, MARIANNA 466.0 ACUTE BRONCHITIS 11/20/2011 [facility] FACULTY RESEARCH ASSISTANT, HEATHER 682.9 CELLULITIS 11/20/2011 [facility] FACULTY RESEARCH ASSISTANT, HEATHER 682.9 CELLULITIS 11/20/2011 [facility] FACULTY RESEARCH ASSISTANT, HEATHER 682.9 CELLULITIS 11/20/2011 [facility] FACULTY RESEARCH ASSISTANT, HEATHER 682.9 CELLULITIS 11/20/2011 [facility] FACULTY RESEARCH ASSISTANT, HEATHER 682.9 CELLULITIS 11/20/2011 [facility] FACULTY RESEARCH ASSISTANT, HEATHER 682.9 CELLULITIS 11/20/2011 [facility] FACULTY RESEARCH ASSISTANT, HEATHER 682.9 CELLULITIS 11/20/2011 [facility] FACULTY RESEARCH ASSISTANT, MARIANNA 682.9 CELLULITIS 11/20/2011 [facility] FACULTY RESEARCH ASSISTANT, MARIANNA 682.9 CELLULITIS 12/22/2011 [facility] FACULTY RESEARCH ASSISTANT, HEATHER 401.1 ESSENTIAL HYPERTENSION BENIGN 12/22/2011 [facility] FACULTY RESEARCH ASSISTANT, HEATHER 401.1 ESSENTIAL HYPERTENSION BENIGN 12/22/2011 [facility] FACULTY RESEARCH ASSISTANT, HEATHER 401.1 ESSENTIAL HYPERTENSION BENIGN 12/22/2011 [facility] FACULTY RESEARCH ASSISTANT, HEATHER 401.1 ESSENTIAL HYPERTENSION BENIGN 12/22/2011 ALEX IRVIN APRNEN 401.1 ESSENTIAL HYPERTENSION BENIGN 12/22/2011 [facility] FACULTY RESEARCH ASSISTANTALEXEN 401.1 ESSENTIAL HYPERTENSION BENIGN 12/22/2011 [facility] ULLOAN HEATHER 401.1 ESSENTIAL HYPERTENSION BENIGN 12/22/2011 [facility] FACULTY RESEARCH ASSISTANT, MARIANNA 401.1 ESSENTIAL HYPERTENSION BENIGN 12/22/2011 [facility] FACULTY RESEARCH ASSISTANT, MARIANNA 401.1 ESSENTIAL HYPERTENSION BENIGN 04/09/2012 [facility] FACULTY RESEARCH ASSISTANT, HEATHER 272.2 HYPERLIPIDEMIA 04/09/2012 [facility] FACULTY RESEARCH ASSISTANT HEATHER V04.81 Need For Prophylactic Vaccination And Inoculation Against Influenza 04/09/2012 [facility] FACULTY RESEARCH ASSISTANTHEATHER Sunshine 272.2 HYPERLIPIDEMIA 04/09/2012 [facility] FACULTY RESEARCH ASSISTANT HEATHER V04.81 Need For Prophylactic Vaccination And Inoculation Against Influenza 04/09/2012 [facility] FACULTY RESEARCH ASSISTANTHEATHER Sunshine 272.2 HYPERLIPIDEMIA 04/09/2012 [facility] FACULTY RESEARCH ASSISTANT, HEATHER V04.81 Need For Prophylactic Vaccination And Inoculation Against Influenza 04/09/2012 [facility] FACULTY RESEARCH ASSISTANTHEATHER Sunshine 272.2 HYPERLIPIDEMIA 04/09/2012 [facility] FACULTY RESEARCH ASSISTANT, HEATHER V04.81 Need For Prophylactic Vaccination And Inoculation Against Influenza 04/09/2012 [facility] FACULTY RESEARCH ASSISTANTHEATHER Sunshine 272.2 HYPERLIPIDEMIA 04/09/2012 [facility] FACULTY RESEARCH ASSISTANT, HEATHER V04.81 Need For Prophylactic Vaccination And Inoculation Against Influenza 04/09/2012 [facility] FACULTY RESEARCH ASSISTANTHEATHER Sunshine 272.2 HYPERLIPIDEMIA 04/09/2012 [facility] FACULTY RESEARCH ASSISTANT, HEATHER V04.81 Need For Prophylactic Vaccination And Inoculation Against Influenza 04/09/2012 [facility] FACULTY RESEARCH ASSISTANTHEATHER Sunshine 272.2 HYPERLIPIDEMIA 04/09/2012 [facility] FACULTY RESEARCH ASSISTANTHEATHER Sunshine V04.81 Need For Prophylactic Vaccination And Inoculation Against Influenza 04/09/2012 GOVIND FACULTY RESEARCH ASSISTANTEN SunshineE 272.2 HYPERLIPIDEMIA 04/09/2012 GOVIND FACULTY RESEARCH ASSISTANTMARIANNA Sunshine V04.81 Need For Prophylactic Vaccination And Inoculation Against Influenza 04/09/2012 G[facility] FACULTY RESEARCH ASSISTANTMARIANNA Sunshine 272.2 HYPERLIPIDEMIA 04/09/2012 G[facility] FACULTY RESEARCH ASSISTANTMARIANNA Sunshine V04.81 Need For Prophylactic Vaccination And Inoculation Against Influenza 05/14/2012 [facility] HEATHER WRIGHT 682.9 Cellulitis/abscess 05/14/2012 [facility] FACULTY RESEARCH ASSISTANT, HEATHER 682.9 Cellulitis/abscess 05/14/2012 [facility] FACULTY RESEARCH ASSISTANT, HEATHER 682.9 Cellulitis/abscess 05/14/2012 [facility] FACULTY RESEARCH ASSISTANT, HEATHER 682.9 Cellulitis/abscess 05/14/2012 [facility] FACULTY RESEARCH ASSISTANT, HEATHER 682.9 Cellulitis/abscess 05/14/2012 [facility] FACULTY RESEARCH ASSISTANT, HEATHER 682.9 Cellulitis/abscess 05/14/2012 [facility] FACULTY RESEARCH ASSISTANT, HEATHER 682.9 Cellulitis/abscess 05/14/2012 G[facility] FACULTY RESEARCH ASSISTANT, MARIANNA 682.9 Cellulitis/abscess 05/14/2012 G[facility]IND FACULTY RESEARCH ASSISTANT, MARIANNA 682.9 Cellulitis/abscess 06/24/2012 [facility] FACULTY RESEARCH ASSISTANT, HEATHER 112.1 Candidiasis, Of Vulva And Vagina 06/24/2012 [facility] FACULTY RESEARCH ASSISTANT, HEATHER 112.1 Candidiasis, Of Vulva And Vagina 06/24/2012 [facility] FACULTY RESEARCH ASSISTANT, HEATHER 112.1 Candidiasis, Of Vulva And Vagina 06/24/2012 [facility] FACULTY RESEARCH ASSISTANT, HEATHER 112.1 Candidiasis, Of Vulva And Vagina 06/24/2012 [facility] FACULTY RESEARCH ASSISTANT, HEATHER 112.1 Candidiasis, Of Vulva And Vagina 06/24/2012 [facility] FACULTY RESEARCH ASSISTANT, HEATHER 112.1 Candidiasis, Of Vulva And Vagina 06/24/2012 [facility] FACULTY RESEARCH ASSISTANT, HEATHER 112.1 Candidiasis, Of Vulva And Vagina 06/24/2012 GOVIND FACULTY RESEARCH ASSISTANT, MARIANNA 112.1 Candidiasis, Of Vulva And Vagina 06/24/2012 GOVIND FACULTY RESEARCH ASSISTANT, MARIANNA 112.1 Candidiasis, Of Vulva And Vagina 06/28/2012 [facility] FACULTY RESEARCH ASSISTANT, HEATHER 110.1 Onychomycosis 06/28/2012 [facility] FACULTY RESEARCH ASSISTANT, HEATHER 703.8 Other Specified Diseases Of Nail 06/28/2012 [facility] FACULTY RESEARCH ASSISTANT, HEATHER 110.1 Onychomycosis 06/28/2012 [facility] FACULTY RESEARCH ASSISTANT, HEATHER 703.8 Other Specified Diseases Of Nail 06/28/2012 [facility] FACULTY RESEARCH ASSISTANT, HEATHER 110.1 Onychomycosis 06/28/2012 [facility] FACULTY RESEARCH ASSISTANT, HEATHER 703.8 Other Specified Diseases Of Nail 06/28/2012 [facility] FACULTY RESEARCH ASSISTANT, HEATHER 110.1 Onychomycosis 06/28/2012 [facility] FACULTY RESEARCH ASSISTANT, HEATHER 703.8 Other Specified Diseases Of Nail 06/28/2012 [facility] FACULTY RESEARCH ASSISTANT, HEATHER 110.1 Onychomycosis 06/28/2012 [facility] FACULTY RESEARCH ASSISTANT, HEATHER 703.8 Other Specified Diseases Of Nail 06/28/2012 [facility] FACULTY RESEARCH ASSISTANT, HEATHER 110.1 Onychomycosis 06/28/2012 [facility] FACULTY RESEARCH ASSISTANT, HEATHER 703.8 Other Specified Diseases Of Nail 06/28/2012 [facility] FACULTY RESEARCH ASSISTANT, HEATHER 110.1 Onychomycosis 06/28/2012 [facility] FACULTY RESEARCH ASSISTANT, HEATHER 703.8 Other Specified Diseases Of Nail 06/28/2012 [facility] FACULTY RESEARCH ASSISTANT, MARIANNA 110.1 Onychomycosis 06/28/2012 GOVIND FACULTY RESEARCH ASSISTANT, MARIANNA 703.8 Other Specified Diseases Of Nail 06/28/2012 GOVIND FACULTY RESEARCH ASSISTANT, MARIANNA 110.1 Onychomycosis 06/28/2012 GOVIND FACULTY RESEARCH ASSISTANT, MARIANNA 703.8 Other Specified Diseases Of Nail 08/21/2012 [facility] FACULTY RESEARCH ASSISTANT, HEATHER 682.9 Cellulitis/abscess 08/21/2012 [facility] FACULTY RESEARCH ASSISTANT, HEATHER V72.31 Gynecological Exam 08/21/2012 [facility] FACULTY RESEARCH ASSISTANT, HEATHER 682.9 Cellulitis/abscess 08/21/2012 [facility] FACULTY RESEARCH ASSISTANT, HEATHER V72.31 Gynecological Exam 08/21/2012 [facility] FACULTY RESEARCH ASSISTANT, HEATHER 682.9 Cellulitis/abscess 08/21/2012 [facility] FACULTY RESEARCH ASSISTANT, HEATHER V72.31 Gynecological Exam 08/21/2012 [facility] FACULTY RESEARCH ASSISTANT, HEATHER 682.9 Cellulitis/abscess 08/21/2012 [facility] FACULTY RESEARCH ASSISTANT, HEATHER V72.31 Gynecological Exam 08/21/2012 BRANDEE FACULTY RESEARCH ASSISTANT, HEATHER 682.9 Cellulitis/abscess 08/21/2012 BRANDEE FACULTY RESEARCH ASSISTANT, HEATHER V72.31 Gynecological Exam 08/21/2012 BRANDEE FACULTY RESEARCH ASSISTANT, HEATHER 682.9 Cellulitis/abscess 08/21/2012 BRANDEE FACULTY RESEARCH ASSISTANT, HEATHER V72.31 Gynecological Exam 08/21/2012 BRANDEE FACULTY RESEARCH ASSISTANT, HEATHER 682.9 Cellulitis/abscess 08/21/2012 BRANDEE FACULTY RESEARCH ASSISTANT, HEATHER V72.31 Gynecological Exam 08/21/2012 GOVIND FACULTY RESEARCH ASSISTANT, MARIANNA 682.9 Cellulitis/abscess 08/21/2012 GOVIND FACULTY RESEARCH ASSISTANT, MARIANNA V72.31 Gynecological Exam 08/21/2012 GOVIND FACULTY RESEARCH ASSISTANT, MARIANNA 682.9 Cellulitis/abscess 08/21/2012 GOVIND FACULTY RESEARCH ASSISTANT, MARIANNA V72.31 Gynecological Exam 10/08/2012 BRANDEE FACULTY RESEARCH ASSISTANT, HEATHER 466.0 Bronchitis, Acute 10/08/2012 BRANDEE FACULTY RESEARCH ASSISTANT, HEATHER 466.0 Bronchitis, Acute 10/08/2012 BRANDEE FACULTY RESEARCH ASSISTANT, HEATHER 466.0 Bronchitis, Acute 10/08/2012 BRANDEE FACULTY RESEARCH ASSISTANT, HEATHER 466.0 Bronchitis, Acute 10/08/2012 BRANDEE FACULTY RESEARCH ASSISTANT, HEATHRE 466.0 Bronchitis, Acute 10/08/2012 BRANDEE FACULTY RESEARCH ASSISTANT, HEATHER 466.0 Bronchitis, Acute 10/08/2012 BRANDEE FACULTY RESEARCH ASSISTANT, HEATHER 466.0 Bronchitis, Acute 10/08/2012 GOVIND FACULTY RESEARCH ASSISTANT, MARIANNA 466.0 Bronchitis, Acute 10/08/2012 GOVIND FACULTY RESEARCH ASSISTANT, MARIANNA 466.0 Bronchitis, Acute 12/05/2012 BRANDEE FACULTY RESEARCH ASSISTANT, HEATHER 599.0 Uti 12/05/2012 BRANDEE FACULTY RESEARCH ASSISTANT, HEATHER 599.0 Uti 12/05/2012 BRANDEE FACULTY RESEARCH ASSISTANT, HEATHER 599.0 Uti 12/05/2012 BRANDEE FACULTY RESEARCH ASSISTANT, HEATHER 599.0 Uti 12/05/2012 BRANDEE FACULTY RESEARCH ASSISTANT, HEATHER 599.0 Uti 12/05/2012 BRANDEE FACULTY RESEARCH ASSISTANT, HEATHER 599.0 Uti 12/05/2012 BRANDEE FACULTY RESEARCH ASSISTANT, HEATHER 599.0 Uti 12/05/2012 GOVIND FACULTY RESEARCH ASSISTANT, MARIANNA 599.0 Uti 12/05/2012 GOVIND FACULTY RESEARCH ASSISTANT, MARIANNA 599.0 Uti 05/21/2013 BRANDEE FACULTY RESEARCH ASSISTANT, HEATHER 285.9 ANEMIA, UNSPECIFIED 05/21/2013 BRANDEE FACULTY RESEARCH ASSISTANT, HEATHER 285.9 ANEMIA, UNSPECIFIED 05/21/2013 BRANDEE FACULTY RESEARCH ASSISTANT, HEATHER 285.9 ANEMIA, UNSPECIFIED 05/21/2013 BRANDEE FACULTY RESEARCH ASSISTANT, HEATHER 285.9 ANEMIA, UNSPECIFIED 05/21/2013 BRANDEE FACULTY RESEARCH ASSISTANT, HEATHER 285.9 ANEMIA, UNSPECIFIED 05/21/2013 BRANDEE FACULTY RESEARCH ASSISTANT, HEATHER 285.9 ANEMIA, UNSPECIFIED 05/21/2013 BRANDEE FACULTY RESEARCH ASSISTANT, HEATHER 285.9 ANEMIA, UNSPECIFIED 05/21/2013 GOVIND FACULTY RESEARCH ASSISTANT, MARIANNA 285.9 ANEMIA, UNSPECIFIED 08/07/2013 BRANDEE FACULTY RESEARCH ASSISTANT, HEATHER 682.5 CELLULITIS AND ABSCESS OF BUTTOCK 08/07/2013 BRANDEE FACULTY RESEARCH ASSISTANT, HEATHER 682.5 CELLULITIS AND ABSCESS OF BUTTOCK 08/07/2013 BRANDEE FACULTY RESEARCH ASSISTANT, HEATHER 682.5 CELLULITIS AND ABSCESS OF BUTTOCK 08/07/2013 BRANDEE FACULTY RESEARCH ASSISTANT, HEATHER 682.5 CELLULITIS AND ABSCESS OF BUTTOCK 08/07/2013 BRANDEE FACULTY RESEARCH ASSISTANT, HEATHER 682.5 CELLULITIS AND ABSCESS OF BUTTOCK 08/07/2013 BRANDEE FACULTY RESEARCH ASSISTANT, HEATHER 682.5 CELLULITIS AND ABSCESS OF BUTTOCK 08/07/2013 BRANDEE FACULTY RESEARCH ASSISTANT, HEATHER 682.5 CELLULITIS AND ABSCESS OF BUTTOCK 12/12/2013 BRANDEE FACULTY RESEARCH ASSISTANT, HEATHER 250.02 DIABETES MELLITUS WITHOUT MENTION OF COMPLICATION TYPE II OR UNSPECIFIED TYPE UNCONTROLLED 12/12/2013 BRANDEE FACULTY RESEARCH ASSISTANT, HEATHER 250.02 DIABETES MELLITUS WITHOUT MENTION OF COMPLICATION TYPE II OR UNSPECIFIED TYPE UNCONTROLLED 12/12/2013 BRANDEE FACULTY RESEARCH ASSISTANT, HEATHER 250.02 DIABETES MELLITUS WITHOUT MENTION OF COMPLICATION TYPE II OR UNSPECIFIED TYPE UNCONTROLLED 12/12/2013 BRANDEE FACULTY RESEARCH ASSISTANT, HEATHER 250.02 DIABETES MELLITUS WITHOUT MENTION OF [...] DANIEL HERNANDEZ MD, Ot S66.911A [facility] AT S/HND 09/13/2018 DANIEL HERNANDEZ MD [...] PERSONAL HISTORY OF URINARY (TRACT) INFE 12/17/2018 ULCÍA FUENTES MD, Ot Z87.442 PERSONAL HISTORY OF [...] MD, Ot Z98.51 TUBAL LIGATION STATUS 12/19/2018 Halle Sahni MD N32.89 Nontraumatic bladder rupture 12/21/2018 JERI BATEMAN, MANASA Funes Ot R10.84 GENERALIZED ABDOMINAL PAIN 12/24/2018 LINDA SAHNI Reason For Visit N32.89 Other specified disorders of bladder 12/25/2018 DIANE DELCID MD, Ot E11.9 TYPE 2 DIABETES MELLITUS WITHOUT COMPLIC 12/25/2018 DIANE DELCID MD, Ot F17.210 NICOTINE DEPENDENCE, CIGARETTES, UNCOMPL 12/25/2018 DIANE DELCID MD, Ot I10 ESSENTIAL (PRIMARY) HYPERTENSION 12/25/2018 DIANE DELCID MD, Ot J45.909 UNSPECIFIED ASTHMA, UNCOMPLICATED 12/25/2018 DIANE DELCID MD, Ot N32.89 OTHER SPECIFIED DISORDERS OF BLADDER 12/25/2018 DIANE DELCID MD, Ot R06.02 SHORTNESS OF BREATH 12/25/2018 DIANE DELCID MD, Ot Z85.528 PERSONAL HISTORY OF OTHER MALIGNANT NEOP 12/25/2018 DIANE DELCID MD, Ot Z87.442 PERSONAL HISTORY OF URINARY CALCULI 12/25/2018 DIANE DELCID MD Ot Z87.448 PERSONAL HISTORY OF OTHER DISEASES OF UR 12/25/2018 DIANE DELCID MD, Ot Z90.5 ACQUIRED ABSENCE OF KIDNEY 12/25/2018 DIANE DELCID MD, Ot Z90.710 ACQUIRED ABSENCE OF BOTH CERVIX AND UTER 12/25/2018 DIANE DELCID MD, Ot Z90.89 ACQUIRED ABSENCE OF OTHER ORGANS 12/25/2018 DIANE DELCID MD, Ot Z92.21 PERSONAL HISTORY OF ANTINEOPLASTIC CHEMO 12/25/2018 DIANE DELCID MD Ot Z96.0 PRESENCE OF UROGENITAL IMPLANTS 12/25/2018 DIANE DELCID MD Ot Z98.51 TUBAL LIGATION STATUS 01/01/2019 Halle Sahni MD E66.9 Obesity Class II (BMI 35-39.9) 01/01/2019 Halle Sahni MD Z68.36 BMI 36-36.9 Procedures Code Description [place] [address] GLUCOSE 05/08/2013 13894 HEMOGLOBIN A1C 05/08/2013 G0008 ADMIN FEE (MEDICARE) INFLUENZA 05/14/2013 13960 CBC - CBC WITH DIFF - LC 05/15/2013 83031 COMP - COMPREHENSIVE PANEL - LC 05/15/2013 24851 LIPID - LIPID PANEL - LC 05/15/2013 70889 TSH - TSH - LC 05/15/2013 73635 MALB - MICROALBUMIN - LC 05/15/2013 54504 GLUCOSE 08/11/2013 64108 HEMOGLOBIN A1C 08/11/2013 50966 CBC WITH DIFF 08/12/2013 32195 GLUCOSE 10/07/2013 4000F TOBACCO USE TXMNT COUNSELING 10/13/2013 73462 PULSE OXIMETRY 12/12/2013 A4614 PEAK FLOW 12/12/2013 06516 GLUCOSE 12/12/2013 85950 HEMOGLOBIN A1C 12/12/2013 Pulmonary Pulmonary Function Test 01/13/2014 A4614 PEAK FLOW 02/10/2014 99696 PULSE OXIMETRY 02/10/2014 69085 GLUCOSE 02/10/2014 Endocrino Endocrinology 02/13/2014 Pulmonary Pulmonology, Pulmonology 03/13/2014 09904 PULSE OXIMETRY 04/14/2014 A4614 PEAK FLOW 04/14/2014 [...] 7-25 CREATININE 0.90 mg/dL 0.50-1.05 eGFR NON-AFR. ARGENTINE 74 mL/min/1.73m2 > OR=60 eGFR 86 mL/min/1.73m2 [...] - 11/06/18 18:55 Bacterial blood culture NG [facility] Influenza virus A and B antigen detection - 11/06/18 18:59 FLU RESULT NEGATIVE FOR INFLUENZA A AND B ANTIGENS BY IA [facility] Bacterial blood culture - 11/06/18 19:08 Bacterial blood culture NG [facility] Capillary blood glucose measurement by glucometer (mass/volume) [...] calculation of estimated glomerular filtration rate > NRG Serum or plasma glucose measurement (mass/volume) 69 [...] measurement by glucometer (mass/volume) 243 mg/dL 70-110 CULTURE, URINE - 12/18/18 12:01 CULTURE, URINE, ROUTINE SEE NOTE NRG Encounters ACCT No. Visit Date/Time Discharge Status Pt. Type Provider Facility Loc./Unit Complaint [id number] 10/30/2018 17:22:00 Document Registration [id number] 10/30/2018 17:22:00 Document Registration [id number] 01/02/2019 02:27:02 ACT Document Registration [id number] 01/01/2019 17:52:01 ACT Unknown Halle Sahni MD [id number] 12/24/2018 10:40:00 12/24/2018 23:59:59 DIS Outpatient LINDA SAHNI [facility] [id number] 08/26/2018 07:22:56 08/26/2018 23:59:59 DIS Outpatient DANAY SORIA V [facility] [id number] 05/30/2018 08:41:17 05/30/2018 23:59:59 DIS Outpatient LINDA SAHNI [facility] RAD [id number] 04/25/2018 12:24:37 04/25/2018 23:59:59 CLS Preadmit LINDA SAHNI [facility] Surgery ops [id number] 11/13/2018 14:34:59 Document Registration [id number] 08/06/2018 13:35:03 Document Registration [id number] 07/05/2018 09:35:35 ACT V AMADOU ROBERT [facility] MS [id number] 06/18/2018 06:13:13 Inpatient LINDA SAHNI [facility] MS ops [id number] 12/21/2018 17:59:00 12/21/2018 19:50:00 DIS Outpatient DIANE DELCID MD [facility] ER FS SOB,VAGINAL PAIN [id number] 12/14/2018 14:21:00 12/14/2018 16:45:00 DIS Emergency GINA BATEMAN, LUCÍA Serrato [facility] ER FS ABD PAIN,VAGINAL PAIN FROM CATHETER [id number] 12/12/2018 13:47:00 12/12/2018 23:59:59 CLS Outpatient JERI BATEMAN, MANASA Funes [facility] RAD FS R10.84 GEN ABD PAIN [id number] 11/29/2018 08:34:00 11/29/2018 16:55:00 DIS Emergency DIANE DELCID MD [facility] ER FS URINARY RETENTION [id number] 11/14/2018 21:43:00 11/14/2018 23:23:00 DIS Emergency DANIEL HERNANDEZ MD [facility] ER FS BLOOD SUGAR ISSUES [id number] 11/06/2018 17:40:00 11/07/2018 01:30:00 DIS Emergency JAME CULVER DO [facility] ER FS SOB,CHEST PAIN [id number] 10/30/2018 20:30:00 10/31/2018 00:33:00 DIS Emergency DIANE DELCID MD [facility] ER FS SOB, HIGH BLOOD SUGAR, ABD SORE [id number] 10/16/2018 22:53:00 10/17/2018 00:25:00 DIS Emergency BHAVIN BATEMAN, DIANE Franco [facility] ER FS CHEST PAINS [id number] 10/13/2018 17:02:00 10/13/2018 20:45:00 DIS Emergency DANIEL HERNANDEZ MD [facility] ER FS CHEST PAIN,SOB [id number] 09/18/2018 20:56:00 09/19/2018 07:30:00 DIS Emergency KAPIL BLANCA NOEL Osorio [facility] ER FS HIGH BLOOD SUGAR, SOB [id number] 09/12/2018 14:20:00 09/12/2018 15:56:00 DIS Emergency DANIEL HERNANDEZ MD [facility] ER FS FALL; RT HIP/MI WRIST INJ [id number] 01/01/2019 09:00:00 ACT Outpatient MANASA WILCOX [facility] [id number] 12/18/2018 12:00:00 Document Registration [id number] 10/07/2018 13:15:00 Document Registration [id number] 09/25/2018 09:45:00 Document Registration [id number] 04/14/2014 08:59:00 04/14/2014 11:05:00 DIS Outpatient HEATHER IRVIN APRN [id number] 02/10/2014 09:57:00 02/10/2014 23:59:59 CLS Outpatient HEATHER IRVIN APRN [id number] 02/10/2014 09:57:00 02/10/2014 23:59:59 CLS Outpatient HEATHER IRVIN APRN [id number] 12/12/2013 10:38:00 12/12/2013 23:59:59 CLS Outpatient HEATHER IRVIN APRN [id number] 10/07/2013 14:37:00 10/13/2013 20:05:00 DIS Outpatient HEATHER IRVIN APRN [id number] 10/07/2013 14:37:00 10/07/2013 23:59:59 CLS Outpatient HEATHER IRVIN APRN [id number] 08/11/2013 10:11:00 08/11/2013 13:49:00 DIS Outpatient HEATHER IRVIN APRN [id number] 05/08/2013 09:56:00 05/08/2013 23:59:59 CLS Outpatient MARIANNA FAUST APRN [id number] 01/08/2013 08:25:00 01/08/2013 23:59:59 CLS Outpatient MARIANNA FAUST APRN [id number] 10/15/2014 15:34:45 10/15/2014 23:59:00 DIS Outpatient SONY CAMPO [facility] [id number] 08/12/2014 12:31:00 08/12/2014 14:34:00 DIS Emergency [facility] FED [id number] 06/21/2014 16:47:00 06/21/2014 17:52:00 DIS Emergency [facility] FED [id number] 09/02/2014 00:00:00 Document Registration
--- NOTE | 2019-01-02 12:48 | ED General ---
General Chief Complaint: General Problems/Pain Stated Complaint: RIGHT SIDE PAIN Nursing Triage Note: PT. WAS SEEN IN URGENT CARE YESTERDAY FOR DIARRHEA AND RIGHT SIDED PAIN. SHE REPORTED THEY DID X-RAYS, AND A UA BUT SHE IS UNAWARE OF THE RESULTS. Nursing Sepsis Screen: No Definite Risk Source of Information: Patient Exam Limitations: No Limitations History of Present Illness Date Seen by Provider: Jan 02, 2019 Time Seen by Provider: 04:15 Initial Comments Patient is a 53-year-old female with history of previous right nephrectomy who presents with right lower abdominal pain/pelvic pain. Patient has been evaluated in this emergency department multiple times for the same as well as her PCP 1 week ago in urgent care yesterday. Patient was diagnosed with bacterial vaginosis 1 week ago and is currently finishing up a course of Flagyl. Patient was seen in the express care yesterday for nonbloody diarrhea. Reportedly imaging studies were performed and a UA were obtained. Patient is unaware of results. Reports urinary frequency urgency. No fever chills or sweats. No flank pain. No chest pain shortness of breath. No other acute symptoms or complaints. Timing/Duration: 4-5 Days Severity: Mild Associated Systoms: Denies Symptoms Allergies and Home Medications Allergies Coded Allergies: No Known Drug Allergies (Unverified , 10/16/18) Home Medications Amoxicillin/Potassium Clav 1 Each Tablet, 1 EACH PO BID Prescribed by: JAZIEL WONG on 01/02/19 0545 Cephalexin 250 Mg Capsule, 250 MG PO BID Prescribed by: LUCÍA FUENTES on 12/14/18 165 Fluconazole 100 Mg Tablet, 100 MG PO Q72 Prescribed by: JAZIEL WONG on 01/02/19 0545 Hyoscyamine Sulfate 0.125 Mg Tab.subl, 0.125 MG SL Q4H PRN for bladder spasm/pain Prescribed by: DIANE DELCID on 12/21/181932 Levofloxacin 750 Mg Tablet, 750 MG PO DAILY Prescribed by: LUCÍA FUENTES on 12/14/18 163 Oxycodone HCl/Acetaminophen 1 Each Tablet, 1 TAB PO Q4H PRN for PAIN-MODERATE Prescribed by: LUCÍA FUENTES on 12/14/181633 Oxycodone HCl/Acetaminophen 1 Each Tablet, 1 EACH PO Q4H PRN for PAIN-SEVERE Prescribed by: DIANE DELCID on 12/21/181932 Phenazopyridine HCl 200 Mg Tablet, 1 TAB PO TID Prescribed by: JAZIEL WONG on 01/02/19 0545 Patient Home Medication List Home Medication List Reviewed: Yes Review of Systems Review of Systems Constitutional: no symptoms reported EENTM: no symptoms reported Respiratory: no symptoms reported Cardiovascular: no symptoms reported Gastrointestinal: see HPI Genitourinary: see HPI Musculoskeletal: no symptoms reported Skin: no symptoms reported Psychiatric/Neurological: No Symptoms Reported Hematologic/Lymphatic: No Symptoms Reported Immunological/Allergic: no symptoms reported Past Rxnonqk-Ozczce-Ckajkh Hx Past Med/Social Hx: Reviewed Nursing Past Med/Soc Hx Patient Social History Drug of Choice: marijuana Type Used: Cigarettes 2nd Hand Smoke Exposure: Yes Recent Foreign Travel: No Contact w/Someone Who Travel: No Recent Infectious Disease Expo: No Recent Hopitalizations: No Physical Abuse: No Sexual Abuse: No Mistreated: No Fear: No Seasonal Allergies Seasonal Allergies: No Past Medical History Surgeries: Yes Abdominal, Hysterectomy, Nephrectomy, Tonsillectomy, Tubal Ligation Respiratory: Yes Asthma Currently Using CPAP: No Currently Using BIPAP: No Cardiac: No Hypertension Neurological: No 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 has multiple lesions on her abd and under the folds.) Blood Disorders: No Adverse Reaction/Blood Tranf: No Physical Exam Vital Signs Vital Signs - First Documented 01/02/19 05:10 Temp 97.0 Pulse 106 Resp 20 B/P (MAP) 155/83 (107) Pulse Ox 98 O2 Delivery Nasal Cannula Capillary Refill : Less Than 3 Seconds Height, Weight, BMI Height: 5'7.00" Weight: 239lbs. 0oz. 108.469970qo; BMI Method:Stated General Appearance: No Apparent Distress Eyes: Bilateral Eye Normal Inspection, Bilateral Eye PERRL, Bilateral Eye EOMI HEENT: PERRL/EOMI, TMs Normal, Normal ENT Inspection, Pharynx Normal Neck: Supple Respiratory: Lungs Clear, Normal Breath Sounds Cardiovascular: Regular Rate, Rhythm Gastrointestinal: Non Tender, Soft, Other Back: Normal Inspection (no suprapubic pain,), No CVA Tenderness Extremity: Normal Capillary Refill Neurologic/Psychiatric: Alert, Oriented x3 Focused Exam Sepsis Stage: Ruled Out Progress/Results/Core Measures Suspected Sepsis Recent Fever Within 48 Hours: No Infection Criteria Present: None New/Unexplained Altered Menta: No Sepsis Screen: No Definite Risk SIRS Temperature:97.0 Pulse: 106 Respiratory Rate: 20 Blood Pressure 155 /83 Mean: 107 Results/Orders Lab Results Laboratory Tests Test 01/02/19 05:13 Range/Units Urine Color YELLOW Urine Clarity CLEAR Urine pH 6 5-9 Urine Specific [place] 1.010 L 1.016-1.022 Urine Protein TRACE NEGATIVE Urine Glucose (UA) NEGATIVE NEGATIVE Urine Ketones NEGATIVE NEGATIVE Urine Nitrite NEGATIVE NEGATIVE Urine Bilirubin NEGATIVE NEGATIVE Urine Urobilinogen NORMAL NORMAL MG/DL Urine Leukocyte Esterase 2+ H NEGATIVE Urine RBC (Auto) 1+ H NEGATIVE Urine RBC 2-5 H /HPF Urine WBC 25-50 H /HPF Urine Squamous Epithelial Cells 0-2 /HPF Urine Crystals NONE /LPF Urine Bacteria FEW H /HPF Urine Casts NONE /LPF Urine Mucus NEGATIVE /LPF Urine Yeast MODERATE H /HPF Urine Culture Indicated YES My Orders Orders - JAZIEL WONG DO Ua Culture If Indicated (01/02/19 05:17) Urine Culture (01/02/19 05:13) Phenazopyridine Tablet (Pyridium Tablet) (01/02/19 05:45) Amoxicillin/Clavulanate Tablet (Augmenti (01/02/19 05:48) Medications Given in ED Current Medications Medications Dose Ordered Sig/Yoselyn Route Start Time Stop Time Status Last Admin Dose Admin Phenazopyridine HCl 200 mg ONCE ONCE PO 01/02/19 05:45 01/02/19 05:46 DC 01/02/19 05:51 200 MG Vital Signs/I&O 01/02/19 01/02/19 05:10 05:55 Temp 97.0 97.0 Pulse 106 106 Resp 20 20 B/P (MAP) 155/83 (107) 155/83 (107) Pulse Ox 98 98 O2 Delivery Nasal Cannula Capillary Refill : Less Than 3 Seconds Blood Pressure Mean: 107 Departure Communication (Admissions) Urinary tract infection with yeast infection. Antibiotics Diflucan prescribed. Pyridium given. Recommend PCP follow-up for urine culture. Return cautions reviewed. Impression Primary Impression: Yeast infection Additional Impressions: Urinary tract infection Abdominal pain Disposition: HOME, SELF-CARE Condition: Improved Departure-Patient Inst. Add. Discharge Instructions: Please increase fluids and take medications as directed. Follow up with your PCP in 2-3 days for urine culture result. Return to the ED if new or worsening symptoms. All discharge instructions reviewed with patient and/or family. Voiced understanding. Scripts Fluconazole (Diflucan) 100 Mg Tablet 100 MG PO Q72, #2 TAB Prov: JAZIEL WONG DO 01/02/19 Phenazopyridine HCl (Pyridium) 200 Mg Tablet 1 TAB PO TID, #6 TAB Prov: JAZIEL WONG DO 01/02/19 Amoxicillin/Potassium Clav (Augmentin 875-125 Tablet) 1 Each Tablet 1 EACH PO BID, #14 TAB 0 Refills Prov: JAZIEL WONG DO 01/02/19 JAZIEL WONG DO Jan 02, 2019 12:48
== END 2019-01-02 05:55 | disposition home or self-care (01) ==
LOC: EDUNIT# 04:58 → ER FS 04:59
DX: B37.49 Other urogenital candidiasis (principal); J45.909 Unspecified asthma, uncomplicated; I10 Essential (primary) hypertension; E11.9 Type 2 diabetes mellitus without complications; Z87.442 Personal history of urinary calculi; Z90.5 Acquired absence of kidney; Z77.22 Contact with and (suspected) exposure to environmental tobacco smoke (acute) (chronic); Z90.710 Acquired absence of both cervix and uterus; Z90.89 Acquired absence of other organs; Z98.51 Tubal ligation status; Z85.528 Personal history of other malignant neoplasm of kidney
CPT/HCPCS: 81000; 87088; 99283

== ENCOUNTER 2019-01-04 19:14 | Emergency (ER) | payer MEDICAID ==
[~2019-01-04] VITALS: Ht 170.2 cm; Wt 108.4 kg
[~2019-01-04 19:14] MED LIST changes: +AMOX-358 PO; +FLUC100T PO; +PHEN-640 PO
--- NOTE | 2019-01-04 19:55 | ED Back Pain ---
General Chief Complaint: Back Problems Stated Complaint: RIGHT SIDE PAIN Source of Information: Patient Exam Limitations: No Limitations History of Present Illness Date Seen by Provider: Jan 04, 2019 Time Seen by Provider: 19:50 Initial Comments Patient is a 53-year-old female with history of kidney cancer right nephrectomy is being seen in this emergency department multiple times the past several weeks for back pain, chronic abdominal pain, urinary frequency or dysuria and urinary tract infection. Patient recently completed course of Flagyl and was prescribed Augmentin and Diflucan 2 days ago but his prescriber for treatment of urinary tract infection. Patient is unsure if the urinary tract infection persist due to the presence of chronic pain. She is currently out of Percocet. Denies fever chills, nausea vomiting or sweats. No hematuria. No other acute symptoms or complaints. Timing/Duration: 12-24 Hours Severity: Mild Pain/Injury Location: Abdomen, Back Modifying Factors: Improves With Pain Medication Allergies and Home Medications Allergies Coded Allergies: No Known Drug Allergies (Unverified , 10/16/18) Home Medications Amoxicillin/Potassium Clav 1 Each Tablet, 1 EACH PO BID Prescribed by: JAZIEL WONG on 01/02/19 0545 Cephalexin 250 Mg Capsule, 250 MG PO BID Prescribed by: LUCÍA FUENTES on 12/14/18 165 Fluconazole 100 Mg Tablet, 100 MG PO Q72 Prescribed by: JAZIEL WONG on 01/02/19 0545 Hyoscyamine Sulfate 0.125 Mg Tab.subl, 0.125 MG SL Q4H PRN for bladder spasm/pain Prescribed by: DIANE DELCID on 12/21/181932 Levofloxacin 750 Mg Tablet, 750 MG PO DAILY Prescribed by: LUCÍA FUENTES on 12/14/18 163 Oxycodone HCl/Acetaminophen 1 Each Tablet, 1 TAB PO Q4H PRN for PAIN-MODERATE Prescribed by: LUCÍA FUENTES on 12/14/18 163 Oxycodone HCl/Acetaminophen 1 Each Tablet, 1 EACH PO Q4H PRN for PAIN-SEVERE Prescribed by: DIANE DELCID on 12/21/181932 Phenazopyridine HCl 200 Mg Tablet, 1 TAB PO TID Prescribed by: JAZIEL WOGN on 01/02/19 0545 Patient Home Medication List Home Medication List Reviewed: Yes Review of Systems Constitutional: no symptoms reported EENTM: see HPI Respiratory: see HPI Cardiovascular: see HPI Gastrointestinal: see HPI Genitourinary: see HPI Musculoskeletal: see HPI Skin: no symptoms reported Psychiatric/Neurological: No Symptoms Reported Past Eknvvye-Upamzd-Diylih Hx Past Med/Social Hx: Reviewed Nursing Past Med/Soc Hx Patient Social History Drug of Choice: marijuana Type Used: Cigarettes 2nd Hand Smoke Exposure: Yes Recent Foreign Travel: No Contact w/Someone Who Travel: No Recent Hopitalizations: No Seasonal Allergies Seasonal Allergies: No Past Medical History Surgeries: Yes Abdominal, Hysterectomy, Nephrectomy, Tonsillectomy, Tubal Ligation Respiratory: Yes Asthma Currently Using CPAP: No Currently Using BIPAP: No Cardiac: No Hypertension 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 has multiple lesions on her abd and under the folds.) Blood Disorders: No Adverse Reaction/Blood Tranf: No Physical Exam Vital Signs Vital Signs - First Documented 01/04/19 19:25 Temp 97.7 Pulse 88 Resp 20 B/P (MAP) 136/87 (103) Pulse Ox 95 O2 Delivery Room Air Capillary Refill : Height, Weight, BMI Height: 5'7.00" Weight: 239lbs. 0oz. 108.903378ax; BMI Method:Stated General Appearance: No Apparent Distress, WD/WN HEENT: PERRL/EOMI, Pharynx Normal Neck: Supple Cardiovascular: Regular Rate, Rhythm Respiratory: Lungs Clear Gastrointestinal: Soft Back: No CVA Tenderness Extremity: Normal Capillary Refill, Normal Inspection, Non Tender Neurologic/Psychiatric: Alert, Oriented x3, No Motor/Sensory Deficits Skin: Normal Color, Warm/Dry Progress/Results/Core Measures Results/Orders Lab Results Laboratory Tests Test 01/04/19 19:30 01/04/19 20:35 Range/Units Urine Color YELLOW YELLOW Urine Clarity CLEAR SLT CLOUDY Urine pH 5.5 5.5 5-9 Urine Specific [place] 1.025 H >=1.030 1.016-1.022 Urine Protein 1+ H 1+ H NEGATIVE Urine Glucose (UA) NEGATIVE NEGATIVE NEGATIVE Urine Ketones TRACE H NEGATIVE NEGATIVE Urine Nitrite NEGATIVE NEGATIVE NEGATIVE Urine Bilirubin NEGATIVE NEGATIVE NEGATIVE Urine Urobilinogen 0.2 0.2 NORMAL MG/DL Urine Leukocyte Esterase 2+ H 1+ H NEGATIVE Urine RBC (Auto) TRACE H TRACE H NEGATIVE Urine RBC 0-2 0-2 /HPF Urine WBC 25-50 H 10-25 H /HPF Urine Squamous Epithelial Cells 0-2 0-2 /HPF Urine Crystals NONE NONE /LPF Urine Bacteria TRACE TRACE /HPF Urine Casts NONE NONE /LPF Urine Yeast FEW H FEW H /HPF Urine Culture Indicated YES NO Urine Mucus SMALL H /LPF My Orders Orders - JAZIEL WONG DO Ua Culture If Indicated (01/04/19 19:49) Urine Culture (01/04/19 19:30) Straight Cath For Spec.-Adult (01/04/19 20:16) Urine Culture (01/04/19 20:16) Urinalysis (01/04/19 20:16) Ceftriaxone For Im Use (Rocephin For Im (01/05/19 09:00) Lidocaine 1% Inj 20 Ml (Xylocaine 1% Inj (01/04/19 21:00) Phenazopyridine Tablet (Pyridium Tablet) (01/04/19 21:00) Ceftriaxone For Im Use (Rocephin For Im (01/04/19 20:58) Vital Signs/I&O 01/04/19 19:25 Temp 97.7 Pulse 88 Resp 20 B/P (MAP) 136/87 (103) Pulse Ox 95 O2 Delivery Room Air Departure Communication (Admissions) Urine culture from 01/02/19 reviewed. Unfortunately, culture and has not run due to possible contamination. Catheter specimen was performed today. Leukocyte Estrace positive with multiple WBCs. IM Rocephin given. Urine culture sent to lab. Patient instructed follow-up with PCP in 2 days for urine culture result. Impression Primary Impression: Urinary tract infection Additional Impression: Abdominal pain Disposition: HOME, SELF-CARE Condition: Improved Departure-Patient Inst. Referrals: MANASA WILCOX MD (PCP) Primary Care Physician PRIYA LIRIANO (Family) Primary Care Physician Patient Instructions: Acute Abdomen (Belly Pain), Adult (DC), [place] mine/Sodium Phosphate/Phenyl Salicylate/Methylene Blue/Hyoscyamine Add. Discharge Instructions: Please continue Augmentin follow-up with your PCP on Sunday for Urine culture results. Take pain medication as needed. Return to the ED if worsening symptoms All discharge instructions reviewed with patient and/or family. Voiced understanding. Scripts Hydrocodone/Acetaminophen ([place] 5-325 Tablet) 1 Each Tablet 1 TAB PO Q4-6HR for Pain MDD 10 TABS for 3 Days, #10 TAB Prov: JAZIEL WONG DO 01/04/19 JAZIEL WONG DO Jan 04, 2019 19:55
[2019-01-04 20:05] LABS: BILIRUBIN,URINE NEGATIVE (NEGATIVE); CLARITY,URINE CLEAR; COLOR,URINE YELLOW; GLUCOSE, URINE (UA) NEGATIVE (NEGATIVE); KETONES,URINE TRACE (NEGATIVE); LEUKOCYTE ESTERASE ,URINE 2+ (NEGATIVE); NITRITE,URINE NEGATIVE (NEGATIVE); PH,URINE 5.5 (5-9); PROTEIN,URINE 1+ (NEGATIVE); RBC,URINE 0-2 /HPF; UROBILINOGEN,URINE 0.2 MG/DL (NORMAL); WBC,URINE 25-50 /HPF
[2019-01-04 20:06] LABS: BACTERIA,URINE TRACE /HPF; SQUAMOUS EPITHELIAL CELL,UR 0-2 /HPF; YEAST,URINE FEW /HPF
--- OUTSIDE RECORDS SUMMARY | 2019-01-04 20:27 | XMS REPORT | Continuity of Care Document ---
Demographics Preferred Language Unknown Marital Status Unknown Holiness Affiliation Unknown Race Unknown Ethnic Group Unknown Author Organization Unknown Address Unknown Allergies Active Description Code Type Severity Reaction Onset Reported/Identified Relationship to Patient Clinical Status Yes No Known Medication Allergies Drug N/A N/A Yes No Known Drug Allergies [id number] Drug Allergy Unknown N/A 10/16/2018 Medications There is no data. Problems Date Dx Coded Attending Type Code Diagnosis Diagnosed By 07/05/2010 [facility] WELDING MACHINE OPERATOR ULTRASONIC, HEATHER 278.01 OBESITY MORBID 07/05/2010 [facility] WELDING MACHINE OPERATOR ULTRASONIC, HEATHER 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, Unspecified 07/05/2010 [facility] WELDING MACHINE OPERATOR ULTRASONIC, HEATHER V15.82 TOBACCOISM 07/05/2010 [facility] WELDING MACHINE OPERATOR ULTRASONIC, HEATHER 278.01 OBESITY MORBID 07/05/2010 [facility] WELDING MACHINE OPERATOR ULTRASONIC, HEATHER 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, Unspecified 07/05/2010 [facility] WELDING MACHINE OPERATOR ULTRASONIC, HEATHER V15.82 TOBACCOISM 07/05/2010 [facility] WELDING MACHINE OPERATOR ULTRASONIC, HEATHER 278.01 OBESITY MORBID 07/05/2010 [facility] WELDING MACHINE OPERATOR ULTRASONIC, HEATHER 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, Unspecified 07/05/2010 [facility] WELDING MACHINE OPERATOR ULTRASONIC, HEATHER V15.82 TOBACCOISM 07/05/2010 [facility] WELDING MACHINE OPERATOR ULTRASONIC, HEATHER 278.01 OBESITY MORBID 07/05/2010 [facility] WELDING MACHINE OPERATOR ULTRASONIC, HEATHER 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, Unspecified 07/05/2010 [facility] WELDING MACHINE OPERATOR ULTRASONIC, HEATHER V15.82 TOBACCOISM 07/05/2010 [facility] WELDING MACHINE OPERATOR ULTRASONIC, HEATHER 278.01 OBESITY MORBID 07/05/2010 [facility] WELDING MACHINE OPERATOR ULTRASONIC, HEATHER 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, Unspecified 07/05/2010 [facility] WELDING MACHINE OPERATOR ULTRASONIC, HEATHER V15.82 TOBACCOISM 07/05/2010 [facility] WELDING MACHINE OPERATOR ULTRASONIC, HEATHER 278.01 OBESITY MORBID 07/05/2010 [facility] WELDING MACHINE OPERATOR ULTRASONIC, HEATHER 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, Unspecified 07/05/2010 [facility] WELDING MACHINE OPERATOR ULTRASONIC, HEATHER V15.82 TOBACCOISM 07/05/2010 [facility] WELDING MACHINE OPERATOR ULTRASONIC, HEATHER 278.01 OBESITY MORBID 07/05/2010 [facility] WELDING MACHINE OPERATOR ULTRASONIC, HEATHER 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, Unspecified 07/05/2010 [facility] WELDING MACHINE OPERATOR ULTRASONIC, HEATHER V15.82 TOBACCOISM 07/05/2010 [facility] WELDING MACHINE OPERATOR ULTRASONIC, MARIANNA 278.01 OBESITY MORBID 07/05/2010 [facility] WELDING MACHINE OPERATOR ULTRASONIC, MARIANNA 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, Unspecified 07/05/2010 [facility] WELDING MACHINE OPERATOR ULTRASONIC, MARIANNA V15.82 TOBACCOISM 07/05/2010 [facility] WELDING MACHINE OPERATOR ULTRASONIC, MARIANNA 278.01 OBESITY MORBID 07/05/2010 [facility] WELDING MACHINE OPERATOR ULTRASONIC, MARIANNA 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, Unspecified 07/05/2010 [facility] WELDING MACHINE OPERATOR ULTRASONIC, MARIANNA V15.82 TOBACCOISM 07/07/2010 [facility] WELDING MACHINE OPERATOR ULTRASONIC, HEATHER 280.9 Anemia Hypochromic / Microcytic 07/07/2010 [facility] WELDING MACHINE OPERATOR ULTRASONIC, HEATHER 796.2 Prehypertension 07/07/2010 [facility] WELDING MACHINE OPERATOR ULTRASONIC, HEATHER V04.81 Influenza Vaccine 07/07/2010 [facility] WELDING MACHINE OPERATOR ULTRASONIC, HEATHER V68.89 Encounters For Other Specified Administrative Purpose 07/07/2010 [facility] WELDING MACHINE OPERATOR ULTRASONIC, HEATHER V72.31 Routine Pelvic Exam 07/07/2010 [facility] WELDING MACHINE OPERATOR ULTRASONIC, HEATHER 280.9 Anemia Hypochromic / Microcytic 07/07/2010 [facility] WELDING MACHINE OPERATOR ULTRASONIC, HEATHER 796.2 Prehypertension 07/07/2010 [facility] WELDING MACHINE OPERATOR ULTRASONIC, HEATHER V04.81 Influenza Vaccine 07/07/2010 [facility] WELDING MACHINE OPERATOR ULTRASONIC, HEATHER V68.89 Encounters For Other Specified Administrative Purpose 07/07/2010 [facility] WELDING MACHINE OPERATOR ULTRASONIC, HEATHER V72.31 Routine Pelvic Exam 07/07/2010 [facility] WELDING MACHINE OPERATOR ULTRASONIC, HEATHER 280.9 Anemia Hypochromic / Microcytic 07/07/2010 [facility] WELDING MACHINE OPERATOR ULTRASONIC, HEATHER 796.2 Prehypertension 07/07/2010 [facility] WELDING MACHINE OPERATOR ULTRASONIC, HEATHER V04.81 Influenza Vaccine 07/07/2010 [facility] WELDING MACHINE OPERATOR ULTRASONIC, HEATHER V68.89 Encounters For Other Specified Administrative Purpose 07/07/2010 [facility] WELDING MACHINE OPERATOR ULTRASONIC, HEATHER V72.31 Routine Pelvic Exam 07/07/2010 [facility] WELDING MACHINE OPERATOR ULTRASONIC, HEATHER 280.9 Anemia Hypochromic / Microcytic 07/07/2010 [facility] WELDING MACHINE OPERATOR ULTRASONIC, HEATHER 796.2 Prehypertension 07/07/2010 [facility] WELDING MACHINE OPERATOR ULTRASONIC, HEATHER V04.81 Influenza Vaccine 07/07/2010 [facility] WELDING MACHINE OPERATOR ULTRASONIC, HEATHER V68.89 Encounters For Other Specified Administrative Purpose 07/07/2010 [facility] WELDING MACHINE OPERATOR ULTRASONIC, HEATHER V72.31 Routine Pelvic Exam 07/07/2010 [facility] WELDING MACHINE OPERATOR ULTRASONIC, HEATHER 280.9 Anemia Hypochromic / Microcytic 07/07/2010 [facility] WELDING MACHINE OPERATOR ULTRASONIC, HEATHER 796.2 Prehypertension 07/07/2010 [facility] WELDING MACHINE OPERATOR ULTRASONIC, HEATHER V04.81 Influenza Vaccine 07/07/2010 [facility] WELDING MACHINE OPERATOR ULTRASONIC, HEATHER V68.89 Encounters For Other Specified Administrative Purpose 07/07/2010 [facility] WELDING MACHINE OPERATOR ULTRASONIC, HEATHER V72.31 Routine Pelvic Exam 07/07/2010 [facility] WELDING MACHINE OPERATOR ULTRASONIC, HEATHER 280.9 Anemia Hypochromic / Microcytic 07/07/2010 [facility] WELDING MACHINE OPERATOR ULTRASONIC, HEATHER 796.2 Prehypertension 07/07/2010 [facility] WELDING MACHINE OPERATOR ULTRASONIC, HEATHER V04.81 Influenza Vaccine 07/07/2010 [facility] WELDING MACHINE OPERATOR ULTRASONIC, HEATHER V68.89 Encounters For Other Specified Administrative Purpose 07/07/2010 [facility] WELDING MACHINE OPERATOR ULTRASONIC, HEATHER V72.31 Routine Pelvic Exam 07/07/2010 [facility] WELDING MACHINE OPERATOR ULTRASONIC, HEATHER 280.9 Anemia Hypochromic / Microcytic 07/07/2010 [facility] WELDING MACHINE OPERATOR ULTRASONIC, HEATHER 796.2 Prehypertension 07/07/2010 [facility] WELDING MACHINE OPERATOR ULTRASONIC, HEATHER V04.81 Influenza Vaccine 07/07/2010 [facility] WELDING MACHINE OPERATOR ULTRASONIC, HEATHER V68.89 Encounters For Other Specified Administrative Purpose 07/07/2010 [facility] WELDING MACHINE OPERATOR ULTRASONIC, HEATHER V72.31 Routine Pelvic Exam 07/07/2010 [facility] WELDING MACHINE OPERATOR ULTRASONIC, MARIANNA 280.9 Anemia Hypochromic / Microcytic 07/07/2010 [facility] WELDING MACHINE OPERATOR ULTRASONIC, MARIANNA 796.2 Prehypertension 07/07/2010 [facility] WELDING MACHINE OPERATOR ULTRASONIC, MARIANNA V04.81 Influenza Vaccine 07/07/2010 [facility] WELDING MACHINE OPERATOR ULTRASONIC, MARIANNA V68.89 Encounters For Other Specified Administrative Purpose 07/07/2010 [facility] WELDING MACHINE OPERATOR ULTRASONIC, MARIANNA V72.31 Routine Pelvic Exam 07/07/2010 [facility] WELDING MACHINE OPERATOR ULTRASONIC, MARIANNA 280.9 Anemia Hypochromic / Microcytic 07/07/2010 [facility] WELDING MACHINE OPERATOR ULTRASONICEN SunshineE 796.2 Prehypertension 07/07/2010 [facility] WELDING MACHINE OPERATOR ULTRASONICMARIANNA Sunshine V04.81 Influenza Vaccine 07/07/2010 [facility] WELDING MACHINE OPERATOR ULTRASONICMARIANNA Sunshine V68.89 Encounters For Other Specified Administrative Purpose 07/07/2010 [facility] WELDING MACHINE OPERATOR ULTRASONICMARIANNA V72.31 Routine Pelvic Exam 10/20/2010 [facility] WELDING MACHINE OPERATOR ULTRASONIC, HEATHER 112.1 Candidiasis, Of Vulva And Vagina 10/20/2010 [facility] WELDING MACHINE OPERATOR ULTRASONIC, HEATHER 599.0 Uti 10/20/2010 [facility] WELDING MACHINE OPERATOR ULTRASONIC, HEATHER 112.1 Candidiasis, Of Vulva And Vagina 10/20/2010 [facility] WELDING MACHINE OPERATOR ULTRASONIC, HEATHER 599.0 Uti 10/20/2010 [facility] WELDING MACHINE OPERATOR ULTRASONIC, HEATHER 112.1 Candidiasis, Of Vulva And Vagina 10/20/2010 [facility] WELDING MACHINE OPERATOR ULTRASONIC, HEATHER 599.0 Uti 10/20/2010 [facility] WELDING MACHINE OPERATOR ULTRASONIC, HEATHER 112.1 Candidiasis, Of Vulva And Vagina 10/20/2010 [facility] WELDING MACHINE OPERATOR ULTRASONIC, HEATHER 599.0 Uti 10/20/2010 [facility] WELDING MACHINE OPERATOR ULTRASONIC, HEATHER 112.1 Candidiasis, Of Vulva And Vagina 10/20/2010 [facility] WELDING MACHINE OPERATOR ULTRASONIC, HEATHER 599.0 Uti 10/20/2010 [facility] WELDING MACHINE OPERATOR ULTRASONIC, HEATHER 112.1 Candidiasis, Of Vulva And Vagina 10/20/2010 [facility] WELDING MACHINE OPERATOR ULTRASONIC, HEATHER 599.0 Uti 10/20/2010 [facility] WELDING MACHINE OPERATOR ULTRASONIC, HEATHER 112.1 Candidiasis, Of Vulva And Vagina 10/20/2010 [facility] WELDING MACHINE OPERATOR ULTRASONIC, HEATHER 599.0 Uti 10/20/2010 [facility] WELDING MACHINE OPERATOR ULTRASONIC, MARIANNA 112.1 Candidiasis, Of Vulva And Vagina 10/20/2010 [facility] WELDING MACHINE OPERATOR ULTRASONIC, MARIANNA 599.0 Uti 10/20/2010 [facility] WELDING MACHINE OPERATOR ULTRASONIC, MARIANNA 112.1 Candidiasis, Of Vulva And Vagina 10/20/2010 [facility] WELDING MACHINE OPERATOR ULTRASONIC, MARIANNA 599.0 Uti 10/24/2010 [facility] WELDING MACHINE OPERATOR ULTRASONIC, HEATHER 250.00 DIABETES MELLITUS TYPE 2 10/24/2010 [facility] WELDING MACHINE OPERATOR ULTRASONIC, HEATHER 466.0 Bronchitis, Acute 10/24/2010 [facility] WELDING MACHINE OPERATOR ULTRASONIC, HEATHER 496 PULMONARY OBSTRUCTIVE DISORDERS 10/24/2010 [facility] WELDING MACHINE OPERATOR ULTRASONIC, HEATHER 250.00 DIABETES MELLITUS TYPE 2 10/24/2010 [facility] WELDING MACHINE OPERATOR ULTRASONIC, HEATHER 466.0 Bronchitis, Acute 10/24/2010 [facility] WELDING MACHINE OPERATOR ULTRASONIC, HEATHER 496 PULMONARY OBSTRUCTIVE DISORDERS 10/24/2010 [facility] WELDING MACHINE OPERATOR ULTRASONIC, HEATHER 250.00 DIABETES MELLITUS TYPE 2 10/24/2010 [facility] WELDING MACHINE OPERATOR ULTRASONIC, HEATHER 466.0 Bronchitis, Acute 10/24/2010 [facility] WELDING MACHINE OPERATOR ULTRASONIC, HEATHER 496 PULMONARY OBSTRUCTIVE DISORDERS 10/24/2010 [facility] WELDING MACHINE OPERATOR ULTRASONIC, HEATHER 250.00 DIABETES MELLITUS TYPE 2 10/24/2010 [facility] WELDING MACHINE OPERATOR ULTRASONIC, HEATHER 466.0 Bronchitis, Acute 10/24/2010 [facility] WELDING MACHINE OPERATOR ULTRASONIC, HEATHER 496 PULMONARY OBSTRUCTIVE DISORDERS 10/24/2010 [facility] WELDING MACHINE OPERATOR ULTRASONIC, HEATHER 250.00 DIABETES MELLITUS TYPE 2 10/24/2010 [facility] WELDING MACHINE OPERATOR ULTRASONIC, HEATHER 466.0 Bronchitis, Acute 10/24/2010 [facility] WELDING MACHINE OPERATOR ULTRASONIC, HEATHER 496 PULMONARY OBSTRUCTIVE DISORDERS 10/24/2010 [facility] WELDING MACHINE OPERATOR ULTRASONIC, HEATHER 250.00 DIABETES MELLITUS TYPE 2 10/24/2010 [facility] WELDING MACHINE OPERATOR ULTRASONIC, HEATHER 466.0 Bronchitis, Acute 10/24/2010 [facility] WELDING MACHINE OPERATOR ULTRASONIC, HEATHER 496 PULMONARY OBSTRUCTIVE DISORDERS 10/24/2010 [facility] WELDING MACHINE OPERATOR ULTRASONIC, HEATHER 250.00 DIABETES MELLITUS TYPE 2 10/24/2010 [facility] WELDING MACHINE OPERATOR ULTRASONIC, HEATHER 466.0 Bronchitis, Acute 10/24/2010 [facility] WELDING MACHINE OPERATOR ULTRASONIC, HEATHER 496 PULMONARY OBSTRUCTIVE DISORDERS 10/24/2010 [facility] WELDING MACHINE OPERATOR ULTRASONIC, MARIANNA 250.00 DIABETES MELLITUS TYPE 2 10/24/2010 [facility] WELDING MACHINE OPERATOR ULTRASONIC, MARIANNA 466.0 Bronchitis, Acute 10/24/2010 [facility] WELDING MACHINE OPERATOR ULTRASONIC, MARIANNA 496 PULMONARY OBSTRUCTIVE DISORDERS 10/24/2010 [facility] WELDING MACHINE OPERATOR ULTRASONIC, MARIANNA 250.00 DIABETES MELLITUS TYPE 2 10/24/2010 [facility] WELDING MACHINE OPERATOR ULTRASONIC, MARIANNA 466.0 Bronchitis, Acute 10/24/2010 [facility] WELDING MACHINE OPERATOR ULTRASONIC, MARIANNA 496 PULMONARY OBSTRUCTIVE DISORDERS 05/12/2011 [facility] WELDING MACHINE OPERATOR ULTRASONIC, HEATHER 703.0 Ingrowing Nail 05/12/2011 [facility] WELDING MACHINE OPERATOR ULTRASONIC, HEATHER 726.91 EXOSTOSIS OF UNSPECIFIED SITE 05/12/2011 [facility] WELDING MACHINE OPERATOR ULTRASONIC, HEATHER 703.0 Ingrowing Nail 05/12/2011 [facility] WELDING MACHINE OPERATOR ULTRASONIC, HEATHER 726.91 EXOSTOSIS OF UNSPECIFIED SITE 05/12/2011 [facility] WELDING MACHINE OPERATOR ULTRASONIC, HEATHER 703.0 Ingrowing Nail 05/12/2011 [facility] WELDING MACHINE OPERATOR ULTRASONIC, HEATHER 726.91 EXOSTOSIS OF UNSPECIFIED SITE 05/12/2011 [facility] WELDING MACHINE OPERATOR ULTRASONIC, HEATHER 703.0 Ingrowing Nail 05/12/2011 [facility] WELDING MACHINE OPERATOR ULTRASONIC, HEATHER 726.91 EXOSTOSIS OF UNSPECIFIED SITE 05/12/2011 [facility] WELDING MACHINE OPERATOR ULTRASONIC, HEATHER 703.0 Ingrowing Nail 05/12/2011 [facility] WELDING MACHINE OPERATOR ULTRASONIC, HEATHER 726.91 EXOSTOSIS OF UNSPECIFIED SITE 05/12/2011 [facility] WELDING MACHINE OPERATOR ULTRASONIC, HEATHER 703.0 Ingrowing Nail 05/12/2011 [facility] WELDING MACHINE OPERATOR ULTRASONIC, HEATHER 726.91 EXOSTOSIS OF UNSPECIFIED SITE 05/12/2011 [facility] WELDING MACHINE OPERATOR ULTRASONIC, HEATHER 703.0 Ingrowing Nail 05/12/2011 [facility] WELDING MACHINE OPERATOR ULTRASONIC, HEATHER 726.91 EXOSTOSIS OF UNSPECIFIED SITE 05/12/2011 [facility] WELDING MACHINE OPERATOR ULTRASONIC, MARIANNA 703.0 Ingrowing Nail 05/12/2011 [facility] WELDING MACHINE OPERATOR ULTRASONIC, MARIANNA 726.91 EXOSTOSIS OF UNSPECIFIED SITE 05/12/2011 [facility] WELDING MACHINE OPERATOR ULTRASONIC, MARIANNA 703.0 Ingrowing Nail 05/12/2011 [facility] WELDING MACHINE OPERATOR ULTRASONIC, MARIANNA 726.91 EXOSTOSIS OF UNSPECIFIED SITE 06/02/2011 [facility] WELDING MACHINE OPERATOR ULTRASONIC, HEATHER 078.12 Plantar Wart 06/02/2011 [facility] WELDING MACHINE OPERATOR ULTRASONIC, HEATHER 078.12 Plantar Wart 06/02/2011 [facility] WELDING MACHINE OPERATOR ULTRASONIC, HEATHER 078.12 Plantar Wart 06/02/2011 [facility] WELDING MACHINE OPERATOR ULTRASONIC, HEATHER 078.12 Plantar Wart 06/02/2011 [facility] WELDING MACHINE OPERATOR ULTRASONIC, HEATHER 078.12 Plantar Wart 06/02/2011 [facility] WELDING MACHINE OPERATOR ULTRASONIC, HEATHER 078.12 Plantar Wart 06/02/2011 [facility] WELDING MACHINE OPERATOR ULTRASONIC, HEATHER 078.12 Plantar Wart 06/02/2011 [facility] WELDING MACHINE OPERATOR ULTRASONIC, MARIANNA 078.12 Plantar Wart 06/02/2011 [facility] WELDING MACHINE OPERATOR ULTRASONIC, MARIANNA 078.12 Plantar Wart 07/05/2011 [facility] WELDING MACHINE OPERATOR ULTRASONIC, HEATHER 466.0 ACUTE BRONCHITIS 07/05/2011 [facility] WELDING MACHINE OPERATOR ULTRASONIC, HEATHER 466.0 ACUTE BRONCHITIS 07/05/2011 [facility] WELDING MACHINE OPERATOR ULTRASONIC, HEATHER 466.0 ACUTE BRONCHITIS 07/05/2011 [facility] WELDING MACHINE OPERATOR ULTRASONIC, HEATHER 466.0 ACUTE BRONCHITIS 07/05/2011 [facility] WELDING MACHINE OPERATOR ULTRASONIC, HEATHER 466.0 ACUTE BRONCHITIS 07/05/2011 [facility] WELDING MACHINE OPERATOR ULTRASONIC, HEATHER 466.0 ACUTE BRONCHITIS 07/05/2011 [facility] WELDING MACHINE OPERATOR ULTRASONIC, HEATHER 466.0 ACUTE BRONCHITIS 07/05/2011 [facility] WELDING MACHINE OPERATOR ULTRASONIC, MARIANNA 466.0 ACUTE BRONCHITIS 07/05/2011 [facility] WELDING MACHINE OPERATOR ULTRASONIC, MARIANNA 466.0 ACUTE BRONCHITIS 11/20/2011 [facility] WELDING MACHINE OPERATOR ULTRASONIC, HEATHER 682.9 CELLULITIS 11/20/2011 [facility] WELDING MACHINE OPERATOR ULTRASONIC, HEATHER 682.9 CELLULITIS 11/20/2011 [facility] WELDING MACHINE OPERATOR ULTRASONIC, HEATHER 682.9 CELLULITIS 11/20/2011 [facility] WELDING MACHINE OPERATOR ULTRASONIC, HEATHER 682.9 CELLULITIS 11/20/2011 [facility] WELDING MACHINE OPERATOR ULTRASONIC, HEATHER 682.9 CELLULITIS 11/20/2011 [facility] WELDING MACHINE OPERATOR ULTRASONIC, HEATHER 682.9 CELLULITIS 11/20/2011 [facility] WELDING MACHINE OPERATOR ULTRASONIC, HEATHER 682.9 CELLULITIS 11/20/2011 [facility] WELDING MACHINE OPERATOR ULTRASONIC, MARIANNA 682.9 CELLULITIS 11/20/2011 [facility] WELDING MACHINE OPERATOR ULTRASONIC, MARIANNA 682.9 CELLULITIS 12/22/2011 [facility] WELDING MACHINE OPERATOR ULTRASONIC, HEATHER 401.1 ESSENTIAL HYPERTENSION BENIGN 12/22/2011 [facility] WELDING MACHINE OPERATOR ULTRASONIC, HEATHER 401.1 ESSENTIAL HYPERTENSION BENIGN 12/22/2011 [facility] WELDING MACHINE OPERATOR ULTRASONIC, HEATHER 401.1 ESSENTIAL HYPERTENSION BENIGN 12/22/2011 [facility] WELDING MACHINE OPERATOR ULTRASONIC, HEATHER 401.1 ESSENTIAL HYPERTENSION BENIGN 12/22/2011 ALEX IRVIN APRNEN 401.1 ESSENTIAL HYPERTENSION BENIGN 12/22/2011 [facility] WELDING MACHINE OPERATOR ULTRASONICALEXEN 401.1 ESSENTIAL HYPERTENSION BENIGN 12/22/2011 BRANDEE ULLOAN HEATHER 401.1 ESSENTIAL HYPERTENSION BENIGN 12/22/2011 GOVIND WELDING MACHINE OPERATOR ULTRASONIC, MARIANNA 401.1 ESSENTIAL HYPERTENSION BENIGN 12/22/2011 GOVIND WELDING MACHINE OPERATOR ULTRASONIC, MARIANNA 401.1 ESSENTIAL HYPERTENSION BENIGN 04/09/2012 [facility] WELDING MACHINE OPERATOR ULTRASONIC, HEATHER 272.2 HYPERLIPIDEMIA 04/09/2012 BR[facility] WELDING MACHINE OPERATOR ULTRASONIC HEATHER V04.81 Need For Prophylactic Vaccination And Inoculation Against Influenza 04/09/2012 BR[facility]E WELDING MACHINE OPERATOR ULTRASONICHEATHER Sunshine 272.2 HYPERLIPIDEMIA 04/09/2012 BR[facility]E WELDING MACHINE OPERATOR ULTRASONIC HEATHER V04.81 Need For Prophylactic Vaccination And Inoculation Against Influenza 04/09/2012 BR[facility] WELDING MACHINE OPERATOR ULTRASONICHEATHER Sunshine 272.2 HYPERLIPIDEMIA 04/09/2012 BR[facility] WELDING MACHINE OPERATOR ULTRASONIC, HEATHER V04.81 Need For Prophylactic Vaccination And Inoculation Against Influenza 04/09/2012 BR[facility]E WELDING MACHINE OPERATOR ULTRASONICHEATHER Sunshine 272.2 HYPERLIPIDEMIA 04/09/2012 BR[facility] WELDING MACHINE OPERATOR ULTRASONIC, HEATHER V04.81 Need For Prophylactic Vaccination And Inoculation Against Influenza 04/09/2012 BR[facility] WELDING MACHINE OPERATOR ULTRASONICHEATHER Sunshine 272.2 HYPERLIPIDEMIA 04/09/2012 BRAN[facility]E WELDING MACHINE OPERATOR ULTRASONIC, HEATHER V04.81 Need For Prophylactic Vaccination And Inoculation Against Influenza 04/09/2012 BR[facility] WELDING MACHINE OPERATOR ULTRASONICHEATHER Sunshine 272.2 HYPERLIPIDEMIA 04/09/2012 BR[facility] WELDING MACHINE OPERATOR ULTRASONIC, HEATHER V04.81 Need For Prophylactic Vaccination And Inoculation Against Influenza 04/09/2012 BRAN[facility]E WELDING MACHINE OPERATOR ULTRASONICHEATHER Sunshine 272.2 HYPERLIPIDEMIA 04/09/2012 BRAN[facility]E WELDING MACHINE OPERATOR ULTRASONICHEATHER Sunshine V04.81 Need For Prophylactic Vaccination And Inoculation Against Influenza 04/09/2012 GOVIND WELDING MACHINE OPERATOR ULTRASONICEN SunshineE 272.2 HYPERLIPIDEMIA 04/09/2012 GOVIND WELDING MACHINE OPERATOR ULTRASONICMARIANNA Sunshine V04.81 Need For Prophylactic Vaccination And Inoculation Against Influenza 04/09/2012 GOVIND WELDING MACHINE OPERATOR ULTRASONICMARIANNA Sunshine 272.2 HYPERLIPIDEMIA 04/09/2012 GOVIND WELDING MACHINE OPERATOR ULTRASONICMARIANNA Sunshine V04.81 Need For Prophylactic Vaccination And Inoculation Against Influenza 05/14/2012 BRANDEE HEATHER WRIGHT 682.9 Cellulitis/abscess 05/14/2012 BR[facility] WELDING MACHINE OPERATOR ULTRASONIC, HEATHER 682.9 Cellulitis/abscess 05/14/2012 BR[facility] WELDING MACHINE OPERATOR ULTRASONIC, HEATHER 682.9 Cellulitis/abscess 05/14/2012 BRAN[facility]E WELDING MACHINE OPERATOR ULTRASONIC, HEATHER 682.9 Cellulitis/abscess 05/14/2012 BRAN[facility]E WELDING MACHINE OPERATOR ULTRASONIC, HEATHER 682.9 Cellulitis/abscess 05/14/2012 BR[facility] WELDING MACHINE OPERATOR ULTRASONIC, HEATHER 682.9 Cellulitis/abscess 05/14/2012 BRAN[facility]E WELDING MACHINE OPERATOR ULTRASONIC, HEATHER 682.9 Cellulitis/abscess 05/14/2012 GOVIND WELDING MACHINE OPERATOR ULTRASONIC, MARIANNA 682.9 Cellulitis/abscess 05/14/2012 GOVIND WELDING MACHINE OPERATOR ULTRASONIC, MARIANNA 682.9 Cellulitis/abscess 06/24/2012 [facility] WELDING MACHINE OPERATOR ULTRASONIC, HEATHER 112.1 Candidiasis, Of Vulva And Vagina 06/24/2012 BRAN[facility]E WELDING MACHINE OPERATOR ULTRASONIC, HEATHER 112.1 Candidiasis, Of Vulva And Vagina 06/24/2012 BRAN[facility]E WELDING MACHINE OPERATOR ULTRASONIC, HEATHER 112.1 Candidiasis, Of Vulva And Vagina 06/24/2012 BRAN[facility]E WELDING MACHINE OPERATOR ULTRASONIC, HEATHER 112.1 Candidiasis, Of Vulva And Vagina 06/24/2012 BRAN[facility]E WELDING MACHINE OPERATOR ULTRASONIC, HEATHER 112.1 Candidiasis, Of Vulva And Vagina 06/24/2012 BRANDEE WELDING MACHINE OPERATOR ULTRASONIC, HEATHER 112.1 Candidiasis, Of Vulva And Vagina 06/24/2012 BRANDEE WELDING MACHINE OPERATOR ULTRASONIC, HEATHER 112.1 Candidiasis, Of Vulva And Vagina 06/24/2012 GOVIND WELDING MACHINE OPERATOR ULTRASONIC, MARIANNA 112.1 Candidiasis, Of Vulva And Vagina 06/24/2012 GOVIND WELDING MACHINE OPERATOR ULTRASONIC, MARIANNA 112.1 Candidiasis, Of Vulva And Vagina 06/28/2012 BRANDEE WELDING MACHINE OPERATOR ULTRASONIC, HEATHER 110.1 Onychomycosis 06/28/2012 BRANDEE WELDING MACHINE OPERATOR ULTRASONIC, HEATHER 703.8 Other Specified Diseases Of Nail 06/28/2012 BRANDEE WELDING MACHINE OPERATOR ULTRASONIC, HEATHER 110.1 Onychomycosis 06/28/2012 BRANDEE WELDING MACHINE OPERATOR ULTRASONIC, HEATHER 703.8 Other Specified Diseases Of Nail 06/28/2012 BRANDEE WELDING MACHINE OPERATOR ULTRASONIC, HEATHER 110.1 Onychomycosis 06/28/2012 BRANDEE WELDING MACHINE OPERATOR ULTRASONIC, HEATHER 703.8 Other Specified Diseases Of Nail 06/28/2012 BRANDEE WELDING MACHINE OPERATOR ULTRASONIC, HEATHER 110.1 Onychomycosis 06/28/2012 BRANDEE WELDING MACHINE OPERATOR ULTRASONIC, HEATHER 703.8 Other Specified Diseases Of Nail 06/28/2012 BRANDEE WELDING MACHINE OPERATOR ULTRASONIC, HEATHER 110.1 Onychomycosis 06/28/2012 BRANDEE WELDING MACHINE OPERATOR ULTRASONIC, HEATHER 703.8 Other Specified Diseases Of Nail 06/28/2012 BRANDEE WELDING MACHINE OPERATOR ULTRASONIC, HEATHER 110.1 Onychomycosis 06/28/2012 BRANDEE WELDING MACHINE OPERATOR ULTRASONIC, HEATHER 703.8 Other Specified Diseases Of Nail 06/28/2012 BRANDEE WELDING MACHINE OPERATOR ULTRASONIC, HEATHER 110.1 Onychomycosis 06/28/2012 BRANDEE WELDING MACHINE OPERATOR ULTRASONIC, HEATHER 703.8 Other Specified Diseases Of Nail 06/28/2012 GOVIND WELDING MACHINE OPERATOR ULTRASONIC, MARIANNA 110.1 Onychomycosis 06/28/2012 GOVIND WELDING MACHINE OPERATOR ULTRASONIC, MARIANNA 703.8 Other Specified Diseases Of Nail 06/28/2012 GOVIND WELDING MACHINE OPERATOR ULTRASONIC, MARIANNA 110.1 Onychomycosis 06/28/2012 GOVIND WELDING MACHINE OPERATOR ULTRASONIC, MARIANNA 703.8 Other Specified Diseases Of Nail 08/21/2012 BRANDEE WELDING MACHINE OPERATOR ULTRASONIC, HEATHER 682.9 Cellulitis/abscess 08/21/2012 BRANDEE WELDING MACHINE OPERATOR ULTRASONIC, HEATHER V72.31 Gynecological Exam 08/21/2012 BRANDEE WELDING MACHINE OPERATOR ULTRASONIC, HEATHER 682.9 Cellulitis/abscess 08/21/2012 BRANDEE WELDING MACHINE OPERATOR ULTRASONIC, HEATHER V72.31 Gynecological Exam 08/21/2012 BRANDEE WELDING MACHINE OPERATOR ULTRASONIC, HEATHER 682.9 Cellulitis/abscess 08/21/2012 BRANDEE WELDING MACHINE OPERATOR ULTRASONIC, HEATHER V72.31 Gynecological Exam 08/21/2012 BRANDEE WELDING MACHINE OPERATOR ULTRASONIC, HEATHER 682.9 Cellulitis/abscess 08/21/2012 BRANDEE WELDING MACHINE OPERATOR ULTRASONIC, HEATHER V72.31 Gynecological Exam 08/21/2012 BRANDEE WELDING MACHINE OPERATOR ULTRASONIC, HEATHER 682.9 Cellulitis/abscess 08/21/2012 BRANDEE WELDING MACHINE OPERATOR ULTRASONIC, HEATHER V72.31 Gynecological Exam 08/21/2012 BRANDEE WELDING MACHINE OPERATOR ULTRASONIC, HEATHER 682.9 Cellulitis/abscess 08/21/2012 BRANDEE WELDING MACHINE OPERATOR ULTRASONIC, HEATHER V72.31 Gynecological Exam 08/21/2012 BRANDEE WELDING MACHINE OPERATOR ULTRASONIC, HEATHER 682.9 Cellulitis/abscess 08/21/2012 BRANDEE WELDING MACHINE OPERATOR ULTRASONIC, HEATHER V72.31 Gynecological Exam 08/21/2012 GOVIND WELDING MACHINE OPERATOR ULTRASONIC, MARIANNA 682.9 Cellulitis/abscess 08/21/2012 GOVIND WELDING MACHINE OPERATOR ULTRASONIC, MARIANNA V72.31 Gynecological Exam 08/21/2012 GOVIND WELDING MACHINE OPERATOR ULTRASONIC, MARIANNA 682.9 Cellulitis/abscess 08/21/2012 GOVIND WELDING MACHINE OPERATOR ULTRASONIC, MARIANNA V72.31 Gynecological Exam 10/08/2012 BRANDEE WELDING MACHINE OPERATOR ULTRASONIC, HEATHER 466.0 Bronchitis, Acute 10/08/2012 BRANDEE WELDING MACHINE OPERATOR ULTRASONIC, HEATHER 466.0 Bronchitis, Acute 10/08/2012 BRANDEE WELDING MACHINE OPERATOR ULTRASONIC, HEATHER 466.0 Bronchitis, Acute 10/08/2012 BRANDEE WELDING MACHINE OPERATOR ULTRASONIC, HEATHER 466.0 Bronchitis, Acute 10/08/2012 BRANDEE WELDING MACHINE OPERATOR ULTRASONIC, HEATHER 466.0 Bronchitis, Acute 10/08/2012 BRANDEE WELDING MACHINE OPERATOR ULTRASONIC, HEATHER 466.0 Bronchitis, Acute 10/08/2012 BRANDEE WELDING MACHINE OPERATOR ULTRASONIC, HEATHER 466.0 Bronchitis, Acute 10/08/2012 GOVIND WELDING MACHINE OPERATOR ULTRASONIC, MARIANNA 466.0 Bronchitis, Acute 10/08/2012 GOVIND WELDING MACHINE OPERATOR ULTRASONIC, MARIANNA 466.0 Bronchitis, Acute 12/05/2012 BRANDEE WELDING MACHINE OPERATOR ULTRASONIC, HEATHER 599.0 Uti 12/05/2012 BRANDEE WELDING MACHINE OPERATOR ULTRASONIC, HEATHER 599.0 Uti 12/05/2012 BRANDEE WELDING MACHINE OPERATOR ULTRASONIC, HEATHER 599.0 Uti 12/05/2012 BRANDEE WELDING MACHINE OPERATOR ULTRASONIC, HEATHER 599.0 Uti 12/05/2012 BRANDEE WELDING MACHINE OPERATOR ULTRASONIC, HEATHER 599.0 Uti 12/05/2012 BRANDEE WELDING MACHINE OPERATOR ULTRASONIC, HEATHER 599.0 Uti 12/05/2012 BRANDEE WELDING MACHINE OPERATOR ULTRASONIC, HEATHER 599.0 Uti 12/05/2012 GOVIND WELDING MACHINE OPERATOR ULTRASONIC, MARIANNA 599.0 Uti 12/05/2012 GOVIND WELDING MACHINE OPERATOR ULTRASONIC, MARIANNA 599.0 Uti 05/21/2013 BRANDEE WELDING MACHINE OPERATOR ULTRASONIC, HEATHER 285.9 ANEMIA, UNSPECIFIED 05/21/2013 BRANDEE WELDING MACHINE OPERATOR ULTRASONIC, HEATHER 285.9 ANEMIA, UNSPECIFIED 05/21/2013 BRANDEE WELDING MACHINE OPERATOR ULTRASONIC, HEATHER 285.9 ANEMIA, UNSPECIFIED 05/21/2013 BRANDEE WELDING MACHINE OPERATOR ULTRASONIC, HEATHER 285.9 ANEMIA, UNSPECIFIED 05/21/2013 BRANDEE WELDING MACHINE OPERATOR ULTRASONIC, HEATHER 285.9 ANEMIA, UNSPECIFIED 05/21/2013 BRANDEE WELDING MACHINE OPERATOR ULTRASONIC, HEATHER 285.9 ANEMIA, UNSPECIFIED 05/21/2013 BRANDEE WELDING MACHINE OPERATOR ULTRASONIC, HEATHER 285.9 ANEMIA, UNSPECIFIED 05/21/2013 GOVIND WELDING MACHINE OPERATOR ULTRASONIC, MARIANNA 285.9 ANEMIA, UNSPECIFIED 08/07/2013 BRANDEE WELDING MACHINE OPERATOR ULTRASONIC, HEATHER 682.5 CELLULITIS AND ABSCESS OF BUTTOCK 08/07/2013 BRANDEE WELDING MACHINE OPERATOR ULTRASONIC, HEATHER 682.5 CELLULITIS AND ABSCESS OF BUTTOCK 08/07/2013 BRANDEE WELDING MACHINE OPERATOR ULTRASONIC, HEATHER 682.5 CELLULITIS AND ABSCESS OF BUTTOCK 08/07/2013 BRANDEE WELDING MACHINE OPERATOR ULTRASONIC, HEATHER 682.5 CELLULITIS AND ABSCESS OF BUTTOCK 08/07/2013 BRANDEE WELDING MACHINE OPERATOR ULTRASONIC, HEATHER 682.5 CELLULITIS AND ABSCESS OF BUTTOCK 08/07/2013 BRANDEE WELDING MACHINE OPERATOR ULTRASONIC, HEATHER 682.5 CELLULITIS AND ABSCESS OF BUTTOCK 08/07/2013 BRANDEE WELDING MACHINE OPERATOR ULTRASONIC, HEATHER 682.5 CELLULITIS AND ABSCESS OF BUTTOCK 12/12/2013 BRANDEE WELDING MACHINE OPERATOR ULTRASONIC, HEATHER 250.02 DIABETES MELLITUS WITHOUT MENTION OF COMPLICATION TYPE II OR UNSPECIFIED TYPE UNCONTROLLED 12/12/2013 BRANDEE WELDING MACHINE OPERATOR ULTRASONIC, HEATHER 250.02 DIABETES MELLITUS WITHOUT MENTION OF COMPLICATION TYPE II OR UNSPECIFIED TYPE UNCONTROLLED 12/12/2013 BRANDEE WELDING MACHINE OPERATOR ULTRASONIC, HEATHER 250.02 DIABETES MELLITUS WITHOUT MENTION OF COMPLICATION TYPE II OR UNSPECIFIED TYPE UNCONTROLLED 12/12/2013 BRANDEE WELDING MACHINE OPERATOR ULTRASONIC, HEATHER 250.02 DIABETES MELLITUS WITHOUT MENTION OF [...] DANIEL HERNANDEZ MD, Ot S66.911A [facility]HND 09/13/2018 DANIEL HERNANDEZ MD [...] Ot J18.9 PNEUMONIA, UNSPECIFIED ORGANISM 11/08/2018 JAME CULVRE DO Ot J45.909 UNSPECIFIED ASTHMA, UNCOMPLICATED 11/08/2018 JAME CULVER DO Ot R06.02 SHORTNESS OF BREATH 11/08/2018 JAME CULVER DO T Ot Z87.440 PERSONAL HISTORY OF URINARY (TRACT) INFE 11/08/2018 JAME CULVER DO Ot Z87.442 PERSONAL HISTORY OF URINARY CALCULI 11/08/2018 JMAE CULVER DO T Ot Z90.5 ACQUIRED ABSENCE [...] 2 DIABETES MELLITUS WITH HYPOGLYCEM 11/18/2018 DANIEL HENRANDEZ MD Ot E16.2 HYPOGLYCEMIA, UNSPECIFIED 11/18/2018 DANIEL [...] Z98.890 OTHER SPECIFIED POSTPROCEDURAL STATES 12/06/2018 JUD CUVLER DOINA T Ot C66.9 MALIGNANT NEOPLASM OF [...] ACQUIRED ABSENCE OF KIDNEY 12/17/2018 LUCÍA FUENTES MD Ot Z90.710 ACQUIRED ABSENCE OF BOTH CERVIX AND UTER 12/17/2018 LUCÍA FUENTES MD Ot Z90.89 ACQUIRED ABSENCE OF OTHER ORGANS 12/17/2018 LUCÍA FUENTES MD Ot Z92.21 PERSONAL HISTORY OF ANTINEOPLASTIC CHEMO 12/17/2018 LUCÍA FUENTES MD, Ot Z98.51 TUBAL LIGATION STATUS 12/19/2018 Halle Sahni MD N32.89 Nontraumatic bladder rupture 12/21/2018 DIANE DELCID MD Ot E11.9 TYPE 2 DIABETES MELLITUS WITHOUT COMPLIC 12/21/2018 DIANE DELCID MD Ot F17.210 NICOTINE DEPENDENCE, CIGARETTES, UNCOMPL 12/21/2018 DIANE DELCID MD Ot I10 ESSENTIAL (PRIMARY) HYPERTENSION 12/21/2018 DIANE DELCID MD, Ot J45.909 UNSPECIFIED ASTHMA, UNCOMPLICATED 12/21/2018 DIANE DELCID MD Ot N32.89 OTHER SPECIFIED DISORDERS OF BLADDER 12/21/2018 DIANE DELCID MD Ot R06.02 SHORTNESS OF BREATH 12/21/2018 DIANE DELCID MD Ot Z85.528 PERSONAL HISTORY OF OTHER MALIGNANT NEOP 12/21/2018 DIANE DELCID MD Ot Z87.442 PERSONAL HISTORY OF URINARY CALCULI 12/21/2018 DIANE DELCID MD Ot Z87.448 PERSONAL HISTORY OF OTHER DISEASES OF UR 12/21/2018 DIANE DELCID MD Ot Z90.5 ACQUIRED ABSENCE OF KIDNEY 12/21/2018 DIANE DELCID MD Ot Z90.710 ACQUIRED ABSENCE OF BOTH CERVIX AND UTER 12/21/2018 DIANE DELCID MD Ot Z90.89 ACQUIRED ABSENCE OF OTHER ORGANS 12/21/2018 DIANE DELCID MD Ot Z92.21 PERSONAL HISTORY OF ANTINEOPLASTIC CHEMO 12/21/2018 DIANE DELCID MD Ot Z96.0 PRESENCE OF UROGENITAL IMPLANTS 12/21/2018 DIANE DELCID MD Ot Z98.51 TUBAL LIGATION STATUS 12/21/2018 JERI BATEMAN, MANASA Funes Ot R10.84 GENERALIZED ABDOMINAL PAIN 12/24/2018 LINDA SAHNI Reason For Visit N32.89 Other specified disorders of bladder 12/25/2018 DIANE DELCDI MD, Ot E11.9 TYPE 2 DIABETES MELLITUS [...] HISTORY OF URINARY CALCULI 12/25/2018 DIANE DELCID MD, Ot Z87.448 PERSONAL HISTORY OF OTHER DISEASES OF UR 12/25/2018 DIANE DELCID MD, Ot Z90.5 ACQUIRED ABSENCE OF KIDNEY 12/25/2018 DIANE DELCID MD, Ot Z90.710 ACQUIRED ABSENCE OF BOTH CERVIX AND UTER 12/25/2018 DIANE DELCID MD, Ot Z90.89 ACQUIRED ABSENCE OF OTHER ORGANS 12/25/2018 DIANE DELCID MD, Ot Z92.21 PERSONAL HISTORY OF ANTINEOPLASTIC CHEMO 12/25/2018 DIANE DELCID MD, Ot Z96.0 PRESENCE OF UROGENITAL IMPLANTS 12/25/2018 DIANE DELCID MD, Ot Z98.51 TUBAL LIGATION STATUS 01/01/2019 Halle Sahni MD E66.9 Obesity Class II (BMI 35-39.9) 01/01/2019 Halle Sahni MD Z68.36 BMI 36-36.9 01/02/2019 MANASA WILCOX MD Ot R10.84 GENERALIZED ABDOMINAL PAIN 01/02/2019 MANASA WILCOX MD Ot R10.84 GENERALIZED ABDOMINAL PAIN 01/03/2019 JAZIEL WONG DO, Ot B37.49 OTHER UROGENITAL CANDIDIASIS 01/03/2019 JAZIEL WONG DO, Ot E11.9 TYPE 2 DIABETES MELLITUS WITHOUT COMPLIC 01/03/2019 JAZIEL WONG DO Ot I10 ESSENTIAL (PRIMARY) HYPERTENSION 01/03/2019 JAZIEL WONG DO, Ot J45.909 UNSPECIFIED ASTHMA, UNCOMPLICATED 01/03/2019 JAZIEL WONG DO Ot R10.31 RIGHT LOWER QUADRANT PAIN 01/03/2019 JAZIEL WONG DO Ot Z77.22 CNTCT W AND EXPSR TO ENVIRON TOBACCO SMO 01/03/2019 JAZIEL WONG DO Ot Z85.528 PERSONAL HISTORY OF OTHER MALIGNANT NEOP 01/03/2019 JAZIEL WONG DO Ot Z87.442 PERSONAL HISTORY OF URINARY CALCULI 01/03/2019 JAZIEL WONG DO Ot Z90.5 ACQUIRED ABSENCE OF KIDNEY 01/03/2019 JAZIEL WONG DO Ot Z90.710 ACQUIRED ABSENCE OF BOTH CERVIX AND UTER 01/03/2019 JAZIEL WONG DO Ot Z90.89 ACQUIRED ABSENCE OF OTHER ORGANS 01/03/2019 JAZIEL WONG DO Ot Z98.51 TUBAL LIGATION STATUS Procedures Code [place] [address] GLUCOSE 05/08/2013 28295 HEMOGLOBIN A1C 05/08/2013 G0008 ADMIN FEE (MEDICARE) INFLUENZA 05/14/2013 38837 CBC - CBC WITH DIFF - LC 05/15/2013 06426 COMP - COMPREHENSIVE PANEL - LC 05/15/2013 14168 LIPID - LIPID PANEL - LC 05/15/2013 15758 TSH - TSH - LC 05/15/2013 70691 MALB - MICROALBUMIN - LC 05/15/2013 59542 GLUCOSE 08/11/2013 99138 HEMOGLOBIN A1C 08/11/2013 47344 CBC WITH DIFF 08/12/2013 81951 GLUCOSE 10/07/2013 4000F TOBACCO USE TXMNT COUNSELING 10/13/2013 89614 PULSE OXIMETRY 12/12/2013 A4614 PEAK FLOW 12/12/2013 70782 GLUCOSE 12/12/2013 41119 HEMOGLOBIN A1C 12/12/2013 Pulmonary Pulmonary Function Test 01/13/2014 A4614 PEAK FLOW 02/10/2014 01798 PULSE OXIMETRY 02/10/2014 17010 GLUCOSE 02/10/2014 Endocrino Endocrinology 02/13/2014 Pulmonary Pulmonology, Pulmonology 03/13/2014 61756 PULSE OXIMETRY 04/14/2014 A4614 PEAK FLOW 04/14/2014 [...] 7-25 CREATININE 0.90 mg/dL 0.50-1.05 eGFR NON-AFR. MALAYSIAN 74 mL/min/1.73m2 > OR=60 eGFR 86 mL/min/1.73m2 [...] - 11/06/18 18:55 Bacterial blood culture NG [facility] Influenza virus A and B antigen detection - 11/06/18 18:59 FLU RESULT NEGATIVE FOR INFLUENZA A AND B ANTIGENS BY IA [facility] Bacterial blood culture - 11/06/18 19:08 Bacterial blood culture NG [facility] Capillary blood glucose measurement by glucometer [...] 12:01 CULTURE, URINE, ROUTINE SEE NOTE NRG Complete urinalysis with reflex to culture - 01/02/19 05:13 Urine color determination YELLOW NRG Urine clarity determination CLEAR NRG Urine pH measurement by test strip 6 5-9 Specific gravity of urine by test strip 1.010 1.016-1.022 Urine protein assay by test strip, semi-quantitative TRACE NEGATIVE Urine glucose detection by automated test strip NEGATIVE NEGATIVE Erythrocytes detection in urine sediment by light microscopy 1+ NEGATIVE Urine ketones detection by automated test strip NEGATIVE NEGATIVE Urine nitrite detection by test strip NEGATIVE NEGATIVE Urine total bilirubin detection by test strip NEGATIVE NEGATIVE Urine urobilinogen measurement by automated test strip (mass/volume) NORMAL NORMAL Urine leukocyte esterase detection by dipstick 2+ NEGATIVE Automated urine sediment erythrocyte count by [...] detection in urine sediment by light microscopy NEGATIVE NRG Complete urinalysis with reflex to culture YES NRG Yeast detection in urine sediment by light microscopy MODERATE NRG Encounters ACCT No. Visit Date/Time Discharge Status Pt. Type Provider Facility Loc./Unit Complaint [id number] 10/30/2018 17:22:00 Document Registration [id number] 10/30/2018 17:22:00 Document Registration [email or web address] 01/02/2019 02:27:02 ACT Document Registration [id number] 01/01/2019 17:52:01 ACT Unknown Halle Sahni MD [id number] 12/24/2018 10:40:00 12/24/2018 23:59:59 DIS Outpatient LINDA SAHNI [facility] [id number] 08/26/2018 07:22:56 08/26/2018 23:59:59 DIS Outpatient DANAY SORIA V [facility] [id number] 05/30/2018 08:41:17 05/30/2018 23:59:59 DIS Outpatient LINDA SAHNI [facility] [id number] 04/25/2018 12:24:37 04/25/2018 23:59:59 CLS Preadmit LINDA SAHNI [facility] ops [id number] 11/13/2018 14:34:59 Document Registration [id number] 08/06/2018 13:35:03 Document Registration [id number] 07/05/2018 09:35:35 ACT V VANHOUDEN, AMADOU E [facility] MS [id number] 06/18/2018 06:13:13 Inpatient LINDA SAHNI [facility] MS ops [id number] 01/02/2019 04:59:00 01/02/2019 05:55:00 DIS Outpatient MARVIN BLANCA JAZIEL [facility] ER FS RIGHT SIDE PAIN [id number] 12/21/2018 17:59:00 12/21/2018 19:50:00 DIS Emergency DIANE DELCID MD [facility] ER FS SOB,VAGINAL PAIN [id number] 12/14/2018 14:21:00 12/14/2018 16:45:00 DIS Emergency GINA BATEMAN, LUCÍA Serrato [facility] ER FS ABD PAIN,VAGINAL PAIN FROM CATHETER [id number] 12/12/2018 13:47:00 12/12/2018 23:59:59 CLS Outpatient JERI BATEMAN, MANASA Funes [facility] RAD FS R10.84 GEN ABD PAIN [id number] 11/29/2018 08:34:00 11/29/2018 16:55:00 DIS Emergency DIANE DELCID MD [facility] ER FS URINARY RETENTION [id number] 11/14/2018 21:43:00 11/14/2018 23:23:00 DIS Emergency DANIEL HERNANDEZ MD [facility] ER FS BLOOD SUGAR ISSUES [id number] 11/06/2018 17:40:00 11/07/2018 01:30:00 DIS Emergency JAME CULVER DO [facility] ER FS SOB,CHEST PAIN [id number] 10/30/2018 20:30:00 10/31/2018 00:33:00 DIS Emergency DIANE DELCID MD [facility] ER FS SOB, HIGH BLOOD SUGAR, ABD SORE [id number] 10/16/2018 22:53:00 10/17/2018 00:25:00 DIS Emergency DIANE DELCID MD [facility] ER FS CHEST PAINS [id number] 10/13/2018 17:02:00 10/13/2018 20:45:00 DIS Emergency DANIEL HERNANDEZ MD [facility] ER FS CHEST PAIN,SOB [id number] 09/18/2018 20:56:00 09/19/2018 07:30:00 DIS Emergency KAPIL NOEL BLANCA [facility] ER FS HIGH BLOOD SUGAR, SOB [id number] 09/12/2018 14:20:00 09/12/2018 15:56:00 DIS Emergency DANIEL HERNANDEZ MD [facility] ER FS FALL; RT HIP/MI WRIST INJ [id number] 01/03/2019 10:15:00 ACT Outpatient MANASA WILCOX [facility] [id number] 12/18/2018 12:00:00 Document Registration [id number] 10/07/2018 13:15:00 Document Registration [id number] 09/25/2018 09:45:00 Document Registration [id number] 04/14/2014 08:59:00 04/14/2014 11:05:00 DIS Outpatient HEATHER IRVIN APRN [id number] 02/10/2014 09:57:00 02/10/2014 23:59:59 CLS Outpatient HEATHER IRVIN APRN [id number] 02/10/2014 09:57:00 02/10/2014 23:59:59 CLS Outpatient HEATHER IRVIN APRN [id number] 12/12/2013 10:38:00 12/12/2013 23:59:59 CLS Outpatient HEATHER IRVIN APRN [id number] 10/07/2013 14:37:00 10/13/2013 20:05:00 DIS Outpatient HEATHER IRVIN APRN [id number] 10/07/2013 14:37:00 10/07/2013 23:59:59 CLS Outpatient HEATHER IRVIN APRN [id number] 08/11/2013 10:11:00 08/11/2013 13:49:00 DIS Outpatient HEATHER IRVIN APRN [id number] 05/08/2013 09:56:00 05/08/2013 23:59:59 CLS Outpatient MARIANNA FAUST APRN [id number] 01/08/2013 08:25:00 01/08/2013 23:59:59 CLS Outpatient MARIANNA FAUST APRN [id number] 10/15/2014 15:34:45 10/15/2014 23:59:00 DIS Outpatient SONY CAMPO [facility] [id number] 08/12/2014 12:31:00 08/12/2014 14:34:00 DIS Emergency [facility] FED [id number] 06/21/2014 16:47:00 06/21/2014 17:52:00 DIS Emergency [facility] FED [id number] 09/02/2014 00:00:00 Document Registration
[2019-01-04 20:47] LABS: BILIRUBIN,URINE NEGATIVE (NEGATIVE); CLARITY,URINE SLT CLOUDY; COLOR,URINE YELLOW; GLUCOSE, URINE (UA) NEGATIVE (NEGATIVE); KETONES,URINE NEGATIVE (NEGATIVE); NITRITE,URINE NEGATIVE (NEGATIVE); PH,URINE 5.5 (5-9); PROTEIN,URINE 1+ (NEGATIVE)
[2019-01-04 20:48] LABS: BACTERIA,URINE TRACE /HPF; LEUKOCYTE ESTERASE ,URINE 1+ (NEGATIVE); RBC,URINE 0-2 /HPF; SQUAMOUS EPITHELIAL CELL,UR 0-2 /HPF; UROBILINOGEN,URINE 0.2 MG/DL (NORMAL); YEAST,URINE FEW /HPF
[2019-01-04] MEDS ORDERED: cefTRIAXone 1,000 MG/2.86 ml vial (IM ONLY) ONE (20:58)
[2019-01-04] MEDS ORDERED: PHENAZOPYRIDINE 100 MG (PYRIDIUM) TABLET PO ONE (21:00)
[2019-01-04] MEDS ORDERED: LIDOCAINE 1% INJ 20 ML 20 ML VIAL INJ ONE (21:00)
[2019-01-04] MEDS ORDERED: HYDR-4226 PO (21:08)
[2019-01-04 21:13] VITALS: BP 128/94
[2019-01-04] MEDS ORDERED: HYDROcodone/APAP 5 MG/325 MG (LORTAB) TAB PO ONE (21:15)
[2019-01-05] MEDS ORDERED: cefTRIAXone 1,000 MG/2.86 ml vial (IM ONLY) IM SCH (09:00)
== END 2019-01-04 21:13 | disposition home or self-care (01) ==
LOC: EDUNIT# 19:14 → ER FS 19:17
DX: N39.0 Urinary tract infection, site not specified (principal); J45.909 Unspecified asthma, uncomplicated; I10 Essential (primary) hypertension; E11.9 Type 2 diabetes mellitus without complications; Z85.528 Personal history of other malignant neoplasm of kidney; Z77.22 Contact with and (suspected) exposure to environmental tobacco smoke (acute) (chronic); Z90.710 Acquired absence of both cervix and uterus; Z98.51 Tubal ligation status; Z90.5 Acquired absence of kidney; Z87.442 Personal history of urinary calculi
CPT/HCPCS: 51701; 81000; 87088

== ENCOUNTER 2019-01-05 19:25 | Emergency (ER) | payer MEDICAID | END 2019-01-05 20:17 | disposition home or self-care (01) | LOC: ER FS 19:25 ==

== ENCOUNTER 2019-01-06 21:51 | Emergency (ER) | payer MEDICAID ==
[~2019-01-06] VITALS: Ht 170.2 cm; Wt 108.4 kg
[~2019-01-06 21:51] MED LIST changes: +HYDR-4226 PO
--- NOTE | 2019-01-06 21:55 | ED General ---
General Stated Complaint: MENTAL HEALTH EVAL History of Present Illness Date Seen by Provider: Jan 06, 2019 Time Seen by Provider: 21:55 Initial Comments Patient presents emergency department for evaluation of suicidal ideation. She says she wants to kill herself by taking all of her pills. She denies prior suicide attempts. She denies any medical complaints and she is in no obvious distress with normal vital signs. Allergies and Home Medications Allergies Coded Allergies: No Known Drug Allergies (Unverified , 10/16/18) Home Medications Amoxicillin/Potassium Clav 1 Each Tablet, 1 EACH PO BID Prescribed by: JAZIEL WONG on 01/02/19 0545 Cephalexin 250 Mg Capsule, 250 MG PO BID Prescribed by: LUCÍA FUENTES on 12/14/18 165 Fluconazole 100 Mg Tablet, 100 MG PO Q72 Prescribed by: JAZIEL WONG on 01/02/1945 Fluconazole 200 Mg Tablet, 200 MG PO DAILY Prescribed by: POLA WEBB on 01/06/19 2248 Hydrocodone/Acetaminophen 1 Each Tablet, 1 TAB PO Q4-6HR Prescribed by: JAZIEL WONG on 01/04/19 2108 Hyoscyamine Sulfate 0.125 Mg Tab.subl, 0.125 MG SL Q4H PRN for bladder spasm/pain Prescribed by: DIANE DELCID on 12/21/18 193 Levofloxacin 750 Mg Tablet, 750 MG PO DAILY Prescribed by: LUCÍA FUENTES on 12/14/18 1636 Oxycodone HCl/Acetaminophen 1 Each Tablet, 1 TAB PO Q4H PRN for PAIN-MODERATE Prescribed by: LUCÍA FUENTES on 12/14/18 1634 Oxycodone HCl/Acetaminophen 1 Each Tablet, 1 EACH PO Q4H PRN for PAIN-SEVERE Prescribed by: DIANE DELCID on 12/21/18 193 Phenazopyridine HCl 200 Mg Tablet, 1 TAB PO TID Prescribed by: JAZIEL WONG on 01/02/19 0545 Patient Home Medication List Home Medication List Reviewed: Yes Review of Systems Review of Systems Constitutional: no symptoms reported EENTM: no symptoms reported Respiratory: no symptoms reported Cardiovascular: no symptoms reported All Other Systems Reviewed Negative Unless Noted: Yes Past Fqpnvzo-Rzafum-Loqzte Hx Patient Social History Drug of Choice: marijuana Type Used: Cigarettes 2nd Hand Smoke Exposure: Yes Recent Foreign Travel: No Contact w/Someone Who Travel: No Recent Hopitalizations: No Seasonal Allergies Seasonal Allergies: No Past Medical History Surgeries: Yes Abdominal, Hysterectomy, Nephrectomy, Tonsillectomy, Tubal Ligation Respiratory: Yes Asthma Currently Using CPAP: No Currently Using BIPAP: No Cardiac: No Hypertension Neurological: No 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 has multiple lesions on her abd and under the folds.) Blood Disorders: No Adverse Reaction/Blood Tranf: No Physical Exam Vital Signs Vital Signs - First Documented 01/06/19 22:04 Temp 97.2 Pulse 80 Resp 20 B/P (MAP) 103/61 (75) Pulse Ox 97 O2 Delivery Room Air Capillary Refill : Height, Weight, BMI Height: 5'7.00" Weight: 239lbs. 0oz. 108.001096zt; BMI Method:Stated General Appearance: No Apparent Distress, WD/WN HEENT: PERRL/EOMI Neck: Supple Respiratory: No Respiratory Distress Cardiovascular: Regular Rate, Rhythm Gastrointestinal: Non Tender, Soft Back: Normal Inspection Extremity: Normal Capillary Refill Neurologic/Psychiatric: Alert, Oriented x3 Skin: Normal Color, Warm/Dry Progress/Results/Core Measures Suspected Sepsis SIRS Temperature: Pulse: Respiratory Rate: Laboratory Tests 01/06/19 22:23: White Blood Count 8.0 Blood Pressure / Mean: Laboratory Tests 01/06/19 22:23: Creatinine 0.99, Platelet Count 239, Total Bilirubin 0.2 Results/Orders Lab Results Laboratory Tests Test 01/06/19 22:11 01/06/19 22:23 Range/Units Urine Color YELLOW Urine Clarity CLEAR Urine pH 6.0 5-9 Urine Specific [place] <1.005 1.016-1.022 Urine Protein NEGATIVE NEGATIVE Urine Glucose (UA) NEGATIVE NEGATIVE Urine Ketones NEGATIVE NEGATIVE Urine Nitrite NEGATIVE NEGATIVE Urine Bilirubin NEGATIVE NEGATIVE Urine Urobilinogen 0.2 NORMAL MG/DL Urine Leukocyte Esterase 1+ H NEGATIVE Urine RBC (Auto) TRACE H NEGATIVE Urine RBC NONE /HPF Urine WBC 10-25 H /HPF Urine Squamous Epithelial Cells 2-5 /HPF Urine Crystals NONE /LPF Urine Bacteria TRACE /HPF Urine Casts NONE /LPF Urine Mucus NEGATIVE /LPF Urine Culture Indicated YES Urine Opiates Screen NEGATIVE NEGATIVE Urine Oxycodone Screen NEGATIVE NEGATIVE Urine Methadone Screen NEGATIVE NEGATIVE Urine Propoxyphene Screen NEGATIVE NEGATIVE Urine Barbiturates Screen NEGATIVE NEGATIVE Ur Tricyclic Antidepressants Screen NEGATIVE NEGATIVE Urine Phencyclidine Screen NEGATIVE NEGATIVE Urine Amphetamines Screen NEGATIVE NEGATIVE Urine Methamphetamines Screen NEGATIVE NEGATIVE Urine Benzodiazepines Screen NEGATIVE NEGATIVE Urine Cocaine Screen NEGATIVE NEGATIVE Urine Cannabinoids Screen NEGATIVE NEGATIVE White Blood Count 8.0 4.3-11.0 10^3/uL Red Blood Count 3.71 L 4.35-5.85 10^6/uL Hemoglobin 10.4 L 11.5-16.0 G/DL Hematocrit 34 L 35-52 % Mean Corpuscular Volume 92 80-99 FL Mean Corpuscular Hemoglobin 28 25-34 PG Mean Corpuscular Hemoglobin Concent 30 L 32-36 G/DL Red Cell Distribution Width 18.3 H 10.0-14.5 % Platelet Count 239 130-400 10^3/uL Mean Platelet Volume 10.2 7.4-10.4 FL Neutrophils (%) (Auto) 57 42-75 % Lymphocytes (%) (Auto) 30 12-44 % Monocytes (%) (Auto) 6 0-12 % Eosinophils (%) (Auto) 6 0-10 % Basophils (%) (Auto) 1 0-10 % Neutrophils # (Auto) 4.5 1.8-7.8 X 10^3 Lymphocytes # (Auto) 2.4 1.0-4.0 X 10^3 Monocytes # (Auto) 0.5 0.0-1.0 X 10^3 Eosinophils # (Auto) 0.5 H 0.0-0.3 10^3/uL Basophils # (Auto) 0.1 0.0-0.1 10^3/uL Sodium Level 138 135-145 MMOL/L Potassium Level 3.9 3.6-5.0 MMOL/L Chloride Level 99 98-107 MMOL/L Carbon Dioxide Level 26 21-32 MMOL/L Anion Gap 13 5-14 MMOL/L Blood Urea Nitrogen 13 7-18 MG/DL Creatinine 0.99 0.60-1.30 MG/DL Estimat Glomerular Filtration Rate 59 BUN/Creatinine Ratio 13 Glucose Level 168 H 70-105 MG/DL Calcium Level 9.4 8.5-10.1 MG/DL Corrected Calcium 9.5 8.5-10.1 MG/DL Total Bilirubin 0.2 0.1-1.0 MG/DL Aspartate Amino Transf (AST/SGOT) 10 5-34 U/L Alanine Aminotransferase (ALT/SGPT) 12 0-55 U/L Alkaline Phosphatase 112 40-136 U/L Total Protein 7.4 6.4-8.2 GM/DL Albumin 3.9 3.2-4.5 GM/DL Salicylates Level < 5.0 L 5.0-20.0 MG/DL Acetaminophen Level < 10 L 10-30 UG/ML Serum Alcohol < 10 <10 MG/DL My Orders Orders - POLA WEBB DO Acetaminophen (01/06/19 22:06) Alcohol (01/06/19 22:06) Salicylate (01/06/19 22:06) Drug Screen Stat (Urine) (01/06/19 22:06) Cbc With Automated Diff (01/06/19 22:06) Comprehensive Metabolic Panel (01/06/19 22:06) Ua Culture If Indicated (01/06/19 22:06) Urine Culture (01/06/19 22:11) Vital Signs/I&O 01/06/19 22:04 Temp 97.2 Pulse 80 Resp 20 B/P (MAP) 103/61 (75) Pulse Ox 97 O2 Delivery Room Air Capillary Refill : Progress Note : Progress Note Patient does have white blood cells positive leuk esterase with minimal squames in her urine. Based off her last culture result it appears that she had yeast present which could be contaminant or it could be a candidal cystitis. Patient will be started on a daily dose of Diflucan and the medically cleared from my standpoint and then the psychiatric services will screen her. Psychiatry screened her and felt that she is safe for discharge so she'll be discharged in stable condition. Departure Impression Primary Impression: Yohana cystitis Additional Impression: Suicidal ideation Disposition: 01 HOME, SELF-CARE Condition: Stable Departure-Patient Inst. Referrals: MANASA WILCOX MD (PCP) Primary Care Physician PRIYA LIRIANO (Family) Primary Care Physician Scripts Fluconazole (Diflucan) 200 Mg Tablet 200 MG PO DAILY for 14 Days, TAB Prov: POLA WEBB DO 01/06/19 POLA WEBB DO Jan 06, 2019 21:55
--- OUTSIDE RECORDS SUMMARY | 2019-01-06 22:08 | XMS REPORT | Continuity of Care Document ---
Demographics Preferred Language Unknown Marital Status Unknown Alevism Affiliation Unknown Race Unknown Ethnic Group Unknown Author Organization Unknown Address Unknown Allergies Active Description Code Type Severity Reaction Onset Reported/Identified Relationship to Patient Clinical Status Yes No Known Medication Allergies Drug N/A N/A Yes No Known Drug Allergies [id number] Drug Allergy Unknown N/A 10/16/2018 Medications There is no data. Problems Date Dx Coded Attending Type Code Diagnosis Diagnosed By 07/05/2010 [facility], HEATHER 278.01 OBESITY MORBID 07/05/2010 [facility], HEATHER 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, Unspecified 07/05/2010 [facility], HEATHER V15.82 TOBACCOISM 07/05/2010 [facility], HEATHER 278.01 OBESITY MORBID 07/05/2010 [facility], HEATHER 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, Unspecified 07/05/2010 [facility], HEATHER V15.82 TOBACCOISM 07/05/2010 [facility], HEATHER 278.01 OBESITY MORBID 07/05/2010 [facility], HEATHER 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, Unspecified 07/05/2010 [facility], HEATHER V15.82 TOBACCOISM 07/05/2010 [facility], HEATHER 278.01 OBESITY MORBID 07/05/2010 [facility], HEATHER 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, Unspecified 07/05/2010 [facility], HEATHER V15.82 TOBACCOISM 07/05/2010 [facility], HEATHER 278.01 OBESITY MORBID 07/05/2010 [facility], HEATHER 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, Unspecified 07/05/2010 [facility], HEATHER V15.82 TOBACCOISM 07/05/2010 [facility], HEATHER 278.01 OBESITY MORBID 07/05/2010 [facility], HEATHER 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, Unspecified 07/05/2010 [facility], HEATHER V15.82 TOBACCOISM 07/05/2010 [facility], HEATHER 278.01 OBESITY MORBID 07/05/2010 [facility], HEATHER 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, Unspecified 07/05/2010 [facility], HEATHER V15.82 TOBACCOISM 07/05/2010 [facility], MARIANNA 278.01 OBESITY MORBID 07/05/2010 [facility], MARIANNA 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, Unspecified 07/05/2010 [facility], MARIANNA V15.82 TOBACCOISM 07/05/2010 [facility], MARIANNA 278.01 OBESITY MORBID 07/05/2010 [facility], MARIANNA 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, Unspecified 07/05/2010 [facility], MARIANNA V15.82 TOBACCOISM 07/07/2010 [facility], HEATHER 280.9 Anemia Hypochromic / Microcytic 07/07/2010 [facility], HEATHER 796.2 Prehypertension 07/07/2010 [facility], HEATHER V04.81 Influenza Vaccine 07/07/2010 [facility], HEATHER V68.89 Encounters For Other Specified Administrative Purpose 07/07/2010 [facility], HEATHER V72.31 Routine Pelvic Exam 07/07/2010 [facility], HEATHER 280.9 Anemia Hypochromic / Microcytic 07/07/2010 [facility], HEATHER 796.2 Prehypertension 07/07/2010 [facility], HEATHER V04.81 Influenza Vaccine 07/07/2010 [facility], HEATHER V68.89 Encounters For Other Specified Administrative Purpose 07/07/2010 [facility], HEATHER V72.31 Routine Pelvic Exam 07/07/2010 [facility], HEATHER 280.9 Anemia Hypochromic / Microcytic 07/07/2010 [facility], HEATHER 796.2 Prehypertension 07/07/2010 [facility], HEATHER V04.81 Influenza Vaccine 07/07/2010 [facility], HEATHER V68.89 Encounters For Other Specified Administrative Purpose 07/07/2010 [facility], HEATHER V72.31 Routine Pelvic Exam 07/07/2010 [facility], HEATHER 280.9 Anemia Hypochromic / Microcytic 07/07/2010 [facility], HEATHER 796.2 Prehypertension 07/07/2010 [facility], HEATHER V04.81 Influenza Vaccine 07/07/2010 [facility], HEATHER V68.89 Encounters For Other Specified Administrative Purpose 07/07/2010 [facility], HEATHER V72.31 Routine Pelvic Exam 07/07/2010 [facility], HEATHER 280.9 Anemia Hypochromic / Microcytic 07/07/2010 [facility], HEATHER 796.2 Prehypertension 07/07/2010 [facility], HEATHER V04.81 Influenza Vaccine 07/07/2010 [facility], HEATHER V68.89 Encounters For Other Specified Administrative Purpose 07/07/2010 [facility], HEATHER V72.31 Routine Pelvic Exam 07/07/2010 [facility], HEATHER 280.9 Anemia Hypochromic / Microcytic 07/07/2010 [facility], HEATHER 796.2 Prehypertension 07/07/2010 [facility], HEATHER V04.81 Influenza Vaccine 07/07/2010 [facility], HEATHER V68.89 Encounters For Other Specified Administrative Purpose 07/07/2010 [facility], HEATHER V72.31 Routine Pelvic Exam 07/07/2010 [facility], HEATHER 280.9 Anemia Hypochromic / Microcytic 07/07/2010 [facility], HEATHER 796.2 Prehypertension 07/07/2010 [facility], HEATHER V04.81 Influenza Vaccine 07/07/2010 [facility], HEATHER V68.89 Encounters For Other Specified Administrative Purpose 07/07/2010 [facility], HEATHER V72.31 Routine Pelvic Exam 07/07/2010 [facility], MARIANNA 280.9 Anemia Hypochromic / Microcytic 07/07/2010 [facility], MARIANNA 796.2 Prehypertension 07/07/2010 [facility], MARIANNA V04.81 Influenza Vaccine 07/07/2010 [facility], MARIANNA V68.89 Encounters For Other Specified Administrative Purpose 07/07/2010 [facility], MARIANNA V72.31 Routine Pelvic Exam 07/07/2010 [facility], MARIANNA 280.9 Anemia Hypochromic / Microcytic 07/07/2010 [facility] SunshineE 796.2 Prehypertension 07/07/2010 [facility] Sunshine V04.81 Influenza Vaccine 07/07/2010 [facility] Sunshine V68.89 Encounters For Other Specified Administrative Purpose 07/07/2010 [facility] V72.31 Routine Pelvic Exam 10/20/2010 [facility], HEATHER 112.1 Candidiasis, Of Vulva And Vagina 10/20/2010 [facility], HEATHER 599.0 Uti 10/20/2010 [facility], HEATHER 112.1 Candidiasis, Of Vulva And Vagina 10/20/2010 [facility], HEATHER 599.0 Uti 10/20/2010 [facility], HEATHER 112.1 Candidiasis, Of Vulva And Vagina 10/20/2010 [facility], HEATHER 599.0 Uti 10/20/2010 [facility], HEATHER 112.1 Candidiasis, Of Vulva And Vagina 10/20/2010 [facility], HEATHER 599.0 Uti 10/20/2010 [facility], HEATHER 112.1 Candidiasis, Of Vulva And Vagina 10/20/2010 [facility], HEATHER 599.0 Uti 10/20/2010 [facility], HEATHER 112.1 Candidiasis, Of Vulva And Vagina 10/20/2010 [facility], HEATHER 599.0 Uti 10/20/2010 [facility], HEATHER 112.1 Candidiasis, Of Vulva And Vagina 10/20/2010 [facility], HEATHER 599.0 Uti 10/20/2010 [facility], MARIANNA 112.1 Candidiasis, Of Vulva And Vagina 10/20/2010 [facility], MARIANNA 599.0 Uti 10/20/2010 [facility], MARIANNA 112.1 Candidiasis, Of Vulva And Vagina 10/20/2010 [facility], MARIANNA 599.0 Uti 10/24/2010 [facility], HEATHER 250.00 DIABETES MELLITUS TYPE 2 10/24/2010 [facility], HEATHER 466.0 Bronchitis, Acute 10/24/2010 [facility], HEATHER 496 PULMONARY OBSTRUCTIVE DISORDERS 10/24/2010 [facility], HEATHER 250.00 DIABETES MELLITUS TYPE 2 10/24/2010 [facility], HEATHER 466.0 Bronchitis, Acute 10/24/2010 [facility], HEATHER 496 PULMONARY OBSTRUCTIVE DISORDERS 10/24/2010 [facility], HEATHER 250.00 DIABETES MELLITUS TYPE 2 10/24/2010 [facility], HEATHER 466.0 Bronchitis, Acute 10/24/2010 [facility], HEATHER 496 PULMONARY OBSTRUCTIVE DISORDERS 10/24/2010 [facility], HEATHER 250.00 DIABETES MELLITUS TYPE 2 10/24/2010 [facility], HEATHER 466.0 Bronchitis, Acute 10/24/2010 [facility], HEATHER 496 PULMONARY OBSTRUCTIVE DISORDERS 10/24/2010 [facility], HEATHER 250.00 DIABETES MELLITUS TYPE 2 10/24/2010 [facility], HEATHER 466.0 Bronchitis, Acute 10/24/2010 [facility], HEATHER 496 PULMONARY OBSTRUCTIVE DISORDERS 10/24/2010 [facility], HEATHER 250.00 DIABETES MELLITUS TYPE 2 10/24/2010 [facility], HEATHER 466.0 Bronchitis, Acute 10/24/2010 [facility], HEATHER 496 PULMONARY OBSTRUCTIVE DISORDERS 10/24/2010 [facility], HEATHER 250.00 DIABETES MELLITUS TYPE 2 10/24/2010 [facility], HEATHER 466.0 Bronchitis, Acute 10/24/2010 [facility], HEATHER 496 PULMONARY OBSTRUCTIVE DISORDERS 10/24/2010 [facility], MARIANNA 250.00 DIABETES MELLITUS TYPE 2 10/24/2010 [facility], MARIANNA 466.0 Bronchitis, Acute 10/24/2010 [facility], MARIANNA 496 PULMONARY OBSTRUCTIVE DISORDERS 10/24/2010 [facility], MARIANNA 250.00 DIABETES MELLITUS TYPE 2 10/24/2010 [facility], MARIANNA 466.0 Bronchitis, Acute 10/24/2010 [facility], MARIANNA 496 PULMONARY OBSTRUCTIVE DISORDERS 05/12/2011 [facility], HEATHER 703.0 Ingrowing Nail 05/12/2011 [facility], HEATHER 726.91 EXOSTOSIS OF UNSPECIFIED SITE 05/12/2011 [facility], HEATHER 703.0 Ingrowing Nail 05/12/2011 [facility], HEATHER 726.91 EXOSTOSIS OF UNSPECIFIED SITE 05/12/2011 [facility], HEATHER 703.0 Ingrowing Nail 05/12/2011 [facility], HEATHER 726.91 EXOSTOSIS OF UNSPECIFIED SITE 05/12/2011 [facility], HEATHER 703.0 Ingrowing Nail 05/12/2011 [facility], HEATHER 726.91 EXOSTOSIS OF UNSPECIFIED SITE 05/12/2011 [facility], HEATHER 703.0 Ingrowing Nail 05/12/2011 [facility], HEATHER 726.91 EXOSTOSIS OF UNSPECIFIED SITE 05/12/2011 [facility], HEATHER 703.0 Ingrowing Nail 05/12/2011 [facility], HEATHER 726.91 EXOSTOSIS OF UNSPECIFIED SITE 05/12/2011 [facility], HEATHER 703.0 Ingrowing Nail 05/12/2011 [facility], HEATHER 726.91 EXOSTOSIS OF UNSPECIFIED SITE 05/12/2011 [facility], MARIANNA 703.0 Ingrowing Nail 05/12/2011 [facility], MARIANNA 726.91 EXOSTOSIS OF UNSPECIFIED SITE 05/12/2011 [facility], MARIANNA 703.0 Ingrowing Nail 05/12/2011 [facility], MARIANNA 726.91 EXOSTOSIS OF UNSPECIFIED SITE 06/02/2011 [facility], HEATHER 078.12 Plantar Wart 06/02/2011 [facility], HEATHER 078.12 Plantar Wart 06/02/2011 [facility], HEATHER 078.12 Plantar Wart 06/02/2011 [facility], HEATHER 078.12 Plantar Wart 06/02/2011 [facility], HEATHER 078.12 Plantar Wart 06/02/2011 [facility], HEATHER 078.12 Plantar Wart 06/02/2011 [facility], HEATHER 078.12 Plantar Wart 06/02/2011 [facility], MARIANNA 078.12 Plantar Wart 06/02/2011 [facility], MARIANNA 078.12 Plantar Wart 07/05/2011 [facility], HEATHER 466.0 ACUTE BRONCHITIS 07/05/2011 [facility], HEATHER 466.0 ACUTE BRONCHITIS 07/05/2011 [facility], HEATHER 466.0 ACUTE BRONCHITIS 07/05/2011 [facility], HEATHER 466.0 ACUTE BRONCHITIS 07/05/2011 [facility], HEATHER 466.0 ACUTE BRONCHITIS 07/05/2011 [facility], HEATHER 466.0 ACUTE BRONCHITIS 07/05/2011 [facility], HEATHER 466.0 ACUTE BRONCHITIS 07/05/2011 [facility], MARIANNA 466.0 ACUTE BRONCHITIS 07/05/2011 [facility], MARIANNA 466.0 ACUTE BRONCHITIS 11/20/2011 [facility], HEATHER 682.9 CELLULITIS 11/20/2011 [facility], HEATHER 682.9 CELLULITIS 11/20/2011 [facility], HEATHER 682.9 CELLULITIS 11/20/2011 [facility], HEATHER 682.9 CELLULITIS 11/20/2011 [facility], HEATHER 682.9 CELLULITIS 11/20/2011 [facility], HEATHER 682.9 CELLULITIS 11/20/2011 [facility], HEATHER 682.9 CELLULITIS 11/20/2011 [facility], MARIANNA 682.9 CELLULITIS 11/20/2011 [facility], MARIANNA 682.9 CELLULITIS 12/22/2011 [facility], HEATHER 401.1 ESSENTIAL HYPERTENSION BENIGN 12/22/2011 [facility], HEATHER 401.1 ESSENTIAL HYPERTENSION BENIGN 12/22/2011 [facility], HEATHER 401.1 ESSENTIAL HYPERTENSION BENIGN 12/22/2011 [facility], HEATHER 401.1 ESSENTIAL HYPERTENSION BENIGN 12/22/2011 ALEX IRVIN APRNEN 401.1 ESSENTIAL HYPERTENSION BENIGN 12/22/2011 [facility]EX[facility] 401.1 ESSENTIAL HYPERTENSION BENIGN 12/22/2011 [facility] ULLOAN HEATHER 401.1 ESSENTIAL HYPERTENSION BENIGN 12/22/2011 [facility], MARIANNA 401.1 ESSENTIAL HYPERTENSION BENIGN 12/22/2011 [facility], MARIANNA 401.1 ESSENTIAL HYPERTENSION BENIGN 04/09/2012 [facility], HEATHER 272.2 HYPERLIPIDEMIA 04/09/2012 [facility] HEATHER V04.81 Need For Prophylactic Vaccination And Inoculation Against Influenza 04/09/2012 [facility] Sunshine 272.2 HYPERLIPIDEMIA 04/09/2012 [facility] HEATHER V04.81 Need For Prophylactic Vaccination And Inoculation Against Influenza 04/09/2012 [facility] Sunshine 272.2 HYPERLIPIDEMIA 04/09/2012 [facility], HEATHER V04.81 Need For Prophylactic Vaccination And Inoculation Against Influenza 04/09/2012 [facility] Sunshine 272.2 HYPERLIPIDEMIA 04/09/2012 [facility], HEATHER V04.81 Need For Prophylactic Vaccination And Inoculation Against Influenza 04/09/2012 [facility] Sunshine 272.2 HYPERLIPIDEMIA 04/09/2012 [facility], HEATHER V04.81 Need For Prophylactic Vaccination And Inoculation Against Influenza 04/09/2012 [facility] Sunshine 272.2 HYPERLIPIDEMIA 04/09/2012 [facility], HEATHER V04.81 Need For Prophylactic Vaccination And Inoculation Against Influenza 04/09/2012 [facility] Sunshine 272.2 HYPERLIPIDEMIA 04/09/2012 [facility] Sunshine V04.81 Need For Prophylactic Vaccination And Inoculation Against Influenza 04/09/2012 [facility] SunshineE 272.2 HYPERLIPIDEMIA 04/09/2012 [facility] Sunshine V04.81 Need For Prophylactic Vaccination And Inoculation Against Influenza 04/09/2012 [facility] Sunshine 272.2 HYPERLIPIDEMIA 04/09/2012 [facility] Sunshine V04.81 Need For Prophylactic Vaccination And Inoculation Against Influenza 05/14/2012 [facility] HEATH[facility] WRIGHT 682.9 Cellulitis/abscess 05/14/2012 [facility], HEATHER 682.9 Cellulitis/abscess 05/14/2012 [facility], HEATHER 682.9 Cellulitis/abscess 05/14/2012 [facility], HEATHER 682.9 Cellulitis/abscess 05/14/2012 [facility], HEATHER 682.9 Cellulitis/abscess 05/14/2012 [facility], HEATHER 682.9 Cellulitis/abscess 05/14/2012 [facility], HEATHER 682.9 Cellulitis/abscess 05/14/2012 [facility], MARAINNA 682.9 Cellulitis/abscess 05/14/2012 [facility], MARIANNA 682.9 Cellulitis/abscess 06/24/2012 [facility], HEATHER 112.1 Candidiasis, Of Vulva And Vagina 06/24/2012 [facility], HEATHER 112.1 Candidiasis, Of Vulva And Vagina 06/24/2012 [facility], HEATHER 112.1 Candidiasis, Of Vulva And Vagina 06/24/2012 [facility], HEATHER 112.1 Candidiasis, Of Vulva And Vagina 06/24/2012 [facility], HEATHER 112.1 Candidiasis, Of Vulva And Vagina 06/24/2012 [facility], HEATHER 112.1 Candidiasis, Of Vulva And Vagina 06/24/2012 [facility], HEATHER 112.1 Candidiasis, Of Vulva And Vagina 06/24/2012 [facility], MARIANNA 112.1 Candidiasis, Of Vulva And Vagina 06/24/2012 [facility], MARIANNA 112.1 Candidiasis, Of Vulva And Vagina 06/28/2012 [facility], HEATHER 110.1 Onychomycosis 06/28/2012 [facility], HEATHER 703.8 Other Specified Diseases Of Nail 06/28/2012 [facility], HEATHER 110.1 Onychomycosis 06/28/2012 [facility], HEATHER 703.8 Other Specified Diseases Of Nail 06/28/2012 [facility], HEATHER 110.1 Onychomycosis 06/28/2012 [facility], HEATHER 703.8 Other Specified Diseases Of Nail 06/28/2012 [facility], HEATHER 110.1 Onychomycosis 06/28/2012 [facility], HEATHER 703.8 Other Specified Diseases Of Nail 06/28/2012 [facility], HEATHER 110.1 Onychomycosis 06/28/2012 [facility], HEATHER 703.8 Other Specified Diseases Of Nail 06/28/2012 [facility], HEATHER 110.1 Onychomycosis 06/28/2012 [facility], HEATHER 703.8 Other Specified Diseases Of Nail 06/28/2012 [facility], HEATHER 110.1 Onychomycosis 06/28/2012 [facility], HEATHER 703.8 Other Specified Diseases Of Nail 06/28/2012 [facility], MARIANNA 110.1 Onychomycosis 06/28/2012 [facility], MARIANNA 703.8 Other Specified Diseases Of Nail 06/28/2012 [facility], MARIANNA 110.1 Onychomycosis 06/28/2012 [facility], MARIANNA 703.8 Other Specified Diseases Of Nail 08/21/2012 [facility], HEATHER 682.9 Cellulitis/abscess 08/21/2012 [facility], HEATHER V72.31 Gynecological Exam 08/21/2012 [facility], HEATHER 682.9 Cellulitis/abscess 08/21/2012 [facility], HEATHER V72.31 Gynecological Exam 08/21/2012 [facility], HEATHER 682.9 Cellulitis/abscess 08/21/2012 [facility], HEATHER V72.31 Gynecological Exam 08/21/2012 [facility], HEATHER 682.9 Cellulitis/abscess 08/21/2012 [facility], HEATHER V72.31 Gynecological Exam 08/21/2012 [facility], HEATHER 682.9 Cellulitis/abscess 08/21/2012 [facility], HEATHER V72.31 Gynecological Exam 08/21/2012 [facility], HEATHER 682.9 Cellulitis/abscess 08/21/2012 [facility], HEATHER V72.31 Gynecological Exam 08/21/2012 [facility], HEATHER 682.9 Cellulitis/abscess 08/21/2012 [facility], HEATHER V72.31 Gynecological Exam 08/21/2012 [facility], MARIANNA 682.9 Cellulitis/abscess 08/21/2012 [facility], MARIANNA V72.31 Gynecological Exam 08/21/2012 [facility], MARIANNA 682.9 Cellulitis/abscess 08/21/2012 [facility], MARIANNA V72.31 Gynecological Exam 10/08/2012 [facility], HEATHER 466.0 Bronchitis, Acute 10/08/2012 [facility], HEATHER 466.0 Bronchitis, Acute 10/08/2012 [facility], HEATHER 466.0 Bronchitis, Acute 10/08/2012 [facility], HEATHER 466.0 Bronchitis, Acute 10/08/2012 [facility], HEATHER 466.0 Bronchitis, Acute 10/08/2012 [facility], HEATHER 466.0 Bronchitis, Acute 10/08/2012 [facility], HEATHER 466.0 Bronchitis, Acute 10/08/2012 [facility], MARIANNA 466.0 Bronchitis, Acute 10/08/2012 [facility], MARIANNA 466.0 Bronchitis, Acute 12/05/2012 [facility], HEATHER 599.0 Uti 12/05/2012 [facility], HEATHER 599.0 Uti 12/05/2012 [facility], HEATHER 599.0 Uti 12/05/2012 [facility], HEATHER 599.0 Uti 12/05/2012 [facility], HEATHER 599.0 Uti 12/05/2012 [facility], HEATHER 599.0 Uti 12/05/2012 [facility], HEATHER 599.0 Uti 12/05/2012 [facility], MARIANNA 599.0 Uti 12/05/2012 [facility], MARIANNA 599.0 Uti 05/21/2013 [facility], HEATHER 285.9 ANEMIA, UNSPECIFIED 05/21/2013 [facility], HEATHER 285.9 ANEMIA, UNSPECIFIED 05/21/2013 [facility], HEATHER 285.9 ANEMIA, UNSPECIFIED 05/21/2013 [facility], HEATHER 285.9 ANEMIA, UNSPECIFIED 05/21/2013 [facility], HEATHER 285.9 ANEMIA, UNSPECIFIED 05/21/2013 [facility], HEATHER 285.9 ANEMIA, UNSPECIFIED 05/21/2013 [facility], HEATHER 285.9 ANEMIA, UNSPECIFIED 05/21/2013 [facility], MARIANNA 285.9 ANEMIA, UNSPECIFIED 08/07/2013 [facility], HEATHER 682.5 CELLULITIS AND ABSCESS OF BUTTOCK 08/07/2013 [facility], HEATHER 682.5 CELLULITIS AND ABSCESS OF BUTTOCK 08/07/2013 [facility], HEATHER 682.5 CELLULITIS AND ABSCESS OF BUTTOCK 08/07/2013 [facility], HEATHER 682.5 CELLULITIS AND ABSCESS OF BUTTOCK 08/07/2013 [facility], HEATHER 682.5 CELLULITIS AND ABSCESS OF BUTTOCK 08/07/2013 [facility], HEATHER 682.5 CELLULITIS AND ABSCESS OF BUTTOCK 08/07/2013 [facility], HEATHER 682.5 CELLULITIS AND ABSCESS OF BUTTOCK 12/12/2013 [facility], HEATHER 250.02 DIABETES MELLITUS WITHOUT MENTION OF COMPLICATION TYPE II OR UNSPECIFIED TYPE UNCONTROLLED 12/12/2013 [facility], HEATHER 250.02 DIABETES MELLITUS WITHOUT MENTION OF COMPLICATION TYPE II OR UNSPECIFIED TYPE UNCONTROLLED 12/12/2013 [facility], HEATHER 250.02 DIABETES MELLITUS WITHOUT MENTION OF COMPLICATION TYPE II OR UNSPECIFIED TYPE UNCONTROLLED 12/12/2013 [facility], HEATHER 250.02 DIABETES MELLITUS WITHOUT MENTION OF [...] DANIEL HERNANDEZ MD, Ot S66.911A [facility] 09/13/2018 DANIEL HERNANDEZ MD [...] 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, 11/07/2018 AJME CULVER DO T Ot E11.9 TYPE 2 [...] MD Ot R10.84 GENERALIZED ABDOMINAL PAIN 01/02/2019 JAZIEL WONG DO, Ot B37.49 OTHER UROGENITAL CANDIDIASIS 01/02/2019 JAZIEL WONG DO, Ot E11.9 TYPE 2 DIABETES MELLITUS WITHOUT COMPLIC 01/02/2019 JAZIEL WONG DO Ot I10 ESSENTIAL (PRIMARY) HYPERTENSION 01/02/2019 JAZIEL WONG DO, Ot J45.909 UNSPECIFIED ASTHMA, UNCOMPLICATED 01/02/2019 WONG DO, JAZIEL Ot R10.31 RIGHT LOWER QUADRANT PAIN 01/02/2019 WONG DO, JAZIEL Ot Z77.22 CNTCT W AND EXPSR TO ENVIRON TOBACCO SMO 01/02/2019 WONG DO, JAZIEL Ot Z85.528 PERSONAL HISTORY OF OTHER MALIGNANT NEOP 01/02/2019 WONG DO, JAZIEL Ot Z87.442 PERSONAL HISTORY OF URINARY CALCULI 01/02/2019 WONG DO, JAZIEL Ot Z90.5 ACQUIRED ABSENCE OF KIDNEY 01/02/2019 WONG DO, JAZIEL Ot Z90.710 ACQUIRED ABSENCE OF BOTH CERVIX AND UTER 01/02/2019 WONG DO, JAZIEL Ot Z90.89 ACQUIRED ABSENCE OF OTHER ORGANS 01/02/2019 WONG DO, JAZIEL Ot Z98.51 TUBAL LIGATION STATUS 01/03/2019 WONG DO, JAZIEL Ot B37.49 OTHER UROGENITAL CANDIDIASIS 01/03/2019 WONG DO, JAZIEL Ot E11.9 TYPE 2 DIABETES MELLITUS WITHOUT COMPLIC 01/03/2019 WONG DO, JAZIEL Ot I10 ESSENTIAL (PRIMARY) HYPERTENSION 01/03/2019 WONG DO, JAZIEL Ot J45.909 UNSPECIFIED ASTHMA, UNCOMPLICATED 01/03/2019 WONG DO, JAZIEL Ot R10.31 RIGHT LOWER QUADRANT PAIN 01/03/2019 WONG DO, JAZIEL Ot Z77.22 CNTCT W AND EXPSR TO ENVIRON TOBACCO SMO 01/03/2019 WONG DO, JAZIEL Ot Z85.528 PERSONAL HISTORY OF OTHER MALIGNANT NEOP 01/03/2019 WONG DO, JAZIEL Ot Z87.442 PERSONAL HISTORY OF URINARY CALCULI 01/03/2019 WONG DO, JAZIEL Ot Z90.5 ACQUIRED ABSENCE OF KIDNEY 01/03/2019 WONG DO, JAZIEL Ot Z90.710 ACQUIRED ABSENCE OF BOTH CERVIX AND UTER 01/03/2019 WONG DO, JAZIEL Ot Z90.89 ACQUIRED ABSENCE OF OTHER ORGANS 01/03/2019 WONG DO, JAZIEL Ot Z98.51 TUBAL LIGATION STATUS 01/04/2019 JERI BATEMAN, MANASA Funes Ot R10.84 GENERALIZED ABDOMINAL PAIN 01/06/2019 WONG DO, JAZIEL Ot E11.9 TYPE 2 DIABETES MELLITUS WITHOUT COMPLIC 01/06/2019 WONG DO, JAZIEL Ot I10 ESSENTIAL (PRIMARY) HYPERTENSION 01/06/2019 WONG DO, JAZIEL Ot J45.909 UNSPECIFIED ASTHMA, UNCOMPLICATED 01/06/2019 WONG DO, JAZIEL Ot N39.0 URINARY TRACT INFECTION, SITE NOT SPECIF 01/06/2019 JAZIEL WONG DO Ot R30.0 DYSURIA 01/06/2019 WONG JAZIEL Ot Z77.22 CNTCT W AND EXPSR TO ENVIRON TOBACCO SMO 01/06/2019 JAZIEL WONG DO Ot Z85.528 PERSONAL HISTORY OF OTHER MALIGNANT NEOP 01/06/2019 JAZIEL WONG DO, Ot Z87.442 PERSONAL HISTORY OF URINARY CALCULI 01/06/2019 JAZIEL WONG DO Ot Z90.5 ACQUIRED ABSENCE OF KIDNEY 01/06/2019 JAZIEL WONG DO Ot Z90.710 ACQUIRED ABSENCE OF BOTH CERVIX AND UTER 01/06/2019 JAZIEL WONG DO Ot Z98.51 TUBAL LIGATION STATUS Procedures Code Description [place] [address] GLUCOSE 05/08/2013 41799 HEMOGLOBIN A1C 05/08/2013 G0008 ADMIN FEE (MEDICARE) INFLUENZA 05/14/2013 58024 CBC - CBC WITH DIFF - LC 05/15/2013 72218 COMP - COMPREHENSIVE PANEL - LC 05/15/2013 35071 LIPID - LIPID PANEL - LC 05/15/2013 48110 TSH - TSH - LC 05/15/2013 39309 MALB - MICROALBUMIN - LC 05/15/2013 33172 GLUCOSE 08/11/2013 60147 HEMOGLOBIN A1C 08/11/2013 56755 CBC WITH DIFF 08/12/2013 93380 GLUCOSE 10/07/2013 4000F TOBACCO USE TXMNT COUNSELING 10/13/2013 29419 PULSE OXIMETRY 12/12/2013 A4614 PEAK FLOW 12/12/2013 98278 GLUCOSE 12/12/2013 53152 HEMOGLOBIN A1C 12/12/2013 Pulmonary Pulmonary Function Test 01/13/2014 A4614 PEAK FLOW 02/10/2014 52619 PULSE OXIMETRY 02/10/2014 60041 GLUCOSE 02/10/2014 Endocrino Endocrinology 02/13/2014 Pulmonary Pulmonology, Pulmonology 03/13/2014 05212 PULSE OXIMETRY 04/14/2014 A4614 PEAK FLOW 04/14/2014 [...] Automated blood platelet mean volume measurement 10.8 [z_us] 7.4-10.4 Comprehensive metabolic panel - 09/18/18 22:05 [...] 7-25 CREATININE 0.90 mg/dL 0.50-1.05 eGFR NON-AFR. ROMANIAN 74 mL/min/1.73m2 > OR=60 eGFR 86 mL/min/1.73m2 [...] - 11/06/18 18:55 Bacterial blood culture NG [facility] Influenza virus A and B antigen detection - 11/06/18 18:59 FLU RESULT NEGATIVE FOR INFLUENZA A AND B ANTIGENS BY IA [facility] Bacterial blood culture - 11/06/18 19:08 Bacterial blood culture NG [facility] Capillary blood glucose measurement by glucometer (mass/volume) [...] urine sediment by light microscopy MODERATE NRG Bacterial urine culture - 01/02/19 05:13 Bacterial urine culture 3 OR MORE NRG COLONY COUNT 60,000 cfu/ml NRG FTX;REPORTABLE SUGGESTING PROBABLE COLLECTION NRG FREE TEXT ENTRY 2 CONTAMINATION WITH SKIN REGINALD NRG FREE TEXT ENTRY 3 NO SUSCEPTIBILITY PERFORMED NRG Complete urinalysis with reflex to culture - 01/04/19 19:30 Urine color determination YELLOW NRG Urine clarity determination CLEAR NRG Urine pH measurement by test strip 5.5 5-9 Specific gravity of urine by test strip 1.025 1.016-1.022 Urine protein assay by test strip, semi-quantitative 1+ NEGATIVE Urine glucose detection by automated test strip NEGATIVE NEGATIVE Erythrocytes detection in urine sediment by light microscopy TRACE NEGATIVE Urine ketones detection by automated test strip TRACE NEGATIVE Urine nitrite detection by test strip [...] urine sediment by light microscopy NONE NRG Complete urinalysis with reflex to culture YES NRG Yeast detection in urine sediment by light microscopy FEW NRG Bacterial urine culture - 01/04/19 19:30 Bacterial urine culture [id number] NRG COLONY COUNT 30,000 CFU/ML NRG Complete urinalysis with reflex to culture - 01/04/19 20:35 Urine color determination YELLOW NRG Urine clarity determination SLT CLOUDY NRG Urine pH measurement by test strip 5.5 5-9 Specific gravity of urine by test strip >= 1.016-1.022 Urine protein assay by test strip, semi-quantitative 1+ NEGATIVE Urine glucose detection by automated test strip NEGATIVE NEGATIVE Erythrocytes detection in urine sediment by light microscopy TRACE NEGATIVE Urine ketones detection by automated test [...] NRG Complete urinalysis with reflex to culture NO NRG Yeast detection in urine sediment by light microscopy FEW NRG Bacterial urine culture - 01/04/19 20:35 Bacterial urine culture [id number] NRG COLONY COUNT . NRG FTX;REPORTABLE <10,000 CFU/ML NRG Encounters ACCT No. Visit Date/Time Discharge Status Pt. Type Provider Facility Loc./Unit Complaint [id number] 10/30/2018 17:22:00 Document Registration [id number] 10/30/2018 17:22:00 Document Registration [email or web address] 01/02/2019 02:27:02 ACT Document Registration [id number] 01/01/2019 17:52:01 ACT Unknown Halle Sahni MD [id number] 12/24/2018 10:40:00 12/24/2018 23:59:59 DIS Outpatient LINDA SAHNI [facility] [id number] 08/26/2018 07:22:56 08/26/2018 23:59:59 DIS Outpatient DANAY SORIA V [facility] [id number] 05/30/2018 08:41:17 05/30/2018 23:59:59 DIS Outpatient LINDA SAHNI [facility] [id number] 04/25/2018 12:24:37 04/25/2018 23:59:59 CLS Preadmit LINDA SAHNI [facility] ops [id number] 11/13/2018 14:34:59 Document Registration [id number] 08/06/2018 13:35:03 Document Registration [id number] 07/05/2018 09:35:35 ACT V AMADOU ROBERT [facility] [place] [id number] 06/18/2018 06:13:13 Inpatient LINDA SAHNI [facility] ops [id number] 01/05/2019 19:25:00 01/05/2019 20:17:00 DIS Emergency TARIK GEORGE DO [facility] ER FS RIGHT SIDE PAIN [id number] 01/04/2019 19:17:00 01/04/2019 21:13:00 DIS Outpatient JAZIEL WONG DO [facility] ER FS RIGHT SIDE PAIN [id number] 01/02/2019 04:59:00 01/02/2019 05:55:00 DIS Emergency JAZIEL WONG DO [facility] ER FS RIGHT SIDE PAIN [id number] 12/21/2018 17:59:00 12/21/2018 19:50:00 DIS Emergency DIANE DELCID MD [facility] ER FS SOB,VAGINAL PAIN [id number] 12/14/2018 14:21:00 12/14/2018 16:45:00 DIS Emergency LUCÍA FUENTES MD [facility] ER FS ABD PAIN,VAGINAL PAIN FROM CATHETER [id number] 12/12/2018 13:47:00 12/12/2018 23:59:59 CLS Outpatient JERI BATEMAN, MANASA Funes [facility] RAD FS R10.84 GEN ABD PAIN [id number] 11/29/2018 08:34:00 11/29/2018 16:55:00 DIS Emergency DIANE DELCID MD [facility] ER FS URINARY RETENTION [id number] 11/14/2018 21:43:00 11/14/2018 23:23:00 DIS Emergency DANIEL HERNANDEZ MD [facility] ER FS BLOOD SUGAR ISSUES [id number] 11/06/2018 17:40:00 11/07/2018 01:30:00 DIS Emergency JAME CULVER DO [facility] ER FS SOB,CHEST PAIN [id number] 10/30/2018 20:30:00 10/31/2018 00:33:00 DIS Emergency DIANE DELCID MD [facility] ER FS SOB, HIGH BLOOD SUGAR, ABD SORE [id number] 10/16/2018 22:53:00 10/17/2018 00:25:00 DIS Emergency DIANE DELCID MD [facility] ER FS CHEST PAINS [id number] 10/13/2018 17:02:00 10/13/2018 20:45:00 DIS Emergency DANIEL HERNANDEZ MD [facility] ER FS CHEST PAIN,SOB [id number] 09/18/2018 20:56:00 09/19/2018 07:30:00 DIS Emergency NOEL DICK DO [facility] ER FS HIGH BLOOD SUGAR, SOB [id number] 09/12/2018 14:20:00 09/12/2018 15:56:00 DIS Emergency DANIEL HERNANDEZ MD [facility] ER FS FALL; RT HIP/MI WRIST INJ [id number] 01/03/2019 10:15:00 01/03/2019 23:59:59 CLS Outpatient KINGSLEYMANASA LAY [facility] [id number] 12/18/2018 12:00:00 Document Registration [id number] 10/07/2018 13:15:00 Document Registration [id number] 09/25/2018 09:45:00 Document Registration [id number] 04/14/2014 08:59:00 04/14/2014 11:05:00 DIS Outpatient HEATHER IRVIN APRN [id number] 02/10/2014 09:57:00 02/10/2014 23:59:59 CLS Outpatient HEATHER IRVIN APRN [id number] 02/10/2014 09:57:00 02/10/2014 23:59:59 CLS Outpatient HEATHER IRVIN APRN [id number] 12/12/2013 10:38:00 12/12/2013 23:59:59 CLS Outpatient HEATHER IRVIN APRN [id number] 10/07/2013 14:37:00 10/13/2013 20:05:00 DIS Outpatient HEATHER IRVIN APRN [id number] 10/07/2013 14:37:00 10/07/2013 23:59:59 CLS Outpatient HEATHER IRVIN APRN [id number] 08/11/2013 10:11:00 08/11/2013 13:49:00 DIS Outpatient HEATHER IRVIN APRN [id number] 05/08/2013 09:56:00 05/08/2013 23:59:59 CLS Outpatient GOVIND MARIANNA WRIGHT [id number] 01/08/2013 08:25:00 01/08/2013 23:59:59 CLS Outpatient MARIANNA FAUST APRN [id number] 10/15/2014 15:34:45 10/15/2014 23:59:00 DIS Outpatient SONY CAMPO A [facility] FLBO [id number] 08/12/2014 12:31:00 08/12/2014 14:34:00 DIS Emergency [facility] FED [id number] 06/21/2014 16:47:00 06/21/2014 17:52:00 DIS Emergency [facility] FED [id number] 09/02/2014 00:00:00 Document Registration
[2019-01-06 22:24] LABS: BACTERIA,URINE TRACE /HPF; BILIRUBIN,URINE NEGATIVE (NEGATIVE); CLARITY,URINE CLEAR; COLOR,URINE YELLOW; GLUCOSE, URINE (UA) NEGATIVE (NEGATIVE); KETONES,URINE NEGATIVE (NEGATIVE); LEUKOCYTE ESTERASE ,URINE 1+ (NEGATIVE); NITRITE,URINE NEGATIVE (NEGATIVE); PROTEIN,URINE NEGATIVE (NEGATIVE); UROBILINOGEN,URINE 0.2 MG/DL (NORMAL)
[2019-01-06 22:31] LABS: AMPHETAMINE SCREEN, URINE NEGATIVE (NEGATIVE); BARBITURATE SCREEN URINE NEGATIVE (NEGATIVE); BENZODIAZEPINES SCREEN URINE NEGATIVE (NEGATIVE); CANNABINOID SCREEN, URINE NEGATIVE (NEGATIVE); COCAINE SCREEN URINE NEGATIVE (NEGATIVE); METHADONE STAT NEGATIVE (NEGATIVE); METHAMPHETAMINE SCREEN URINE S NEGATIVE (NEGATIVE); OPIATE SCREEN URINE NEGATIVE (NEGATIVE); OXYCODONE STAT NEGATIVE (NEGATIVE); PROPOXYPHENE STAT NEGATIVE (NEGATIVE); TRICYCLIC ANTIDEPRESSANTS SCRE NEGATIVE (NEGATIVE)
[2019-01-06 22:33] LABS: HEMATOCRIT 34 % (35-52); HEMOGLOBIN 10.4 G/DL (11.5-16.0); MEAN CORPUSCULAR HEMOGLOBIN 28 PG (25-34); MEAN CORPUSCULAR HGB CONC 30 G/DL (32-36); MEAN CORPUSCULAR VOLUME 92 FL (80-99); MEAN PLATELET VOLUME 10.2 FL (7.4-10.4); NEUTROPHILS % (AUTO) 57 % (42-75); PLATELET COUNT 239 10^3/uL (130-400); RED CELL DISTRIBUTION WIDTH 18.3 % (10.0-14.5)
[2019-01-06 22:34] LABS: BASOPHILS # (AUTO) 0.1 10^3/uL (0.0-0.1); BASOPHILS % (AUTO) 1 % (0-10); EOSINOPHILS # (AUTO) 0.5 10^3/uL (0.0-0.3); EOSINOPHILS % (AUTO) 6 % (0-10); LYMPHOCYTES # (AUTO) 2.4 X 10^3 (1.0-4.0); LYMPHOCYTES % (AUTO) 30 % (12-44); MONOCYTES # (AUTO) 0.5 X 10^3 (0.0-1.0); MONOCYTES % (AUTO) 6 % (0-12); NEUTROPHILS # (AUTO) 4.5 X 10^3 (1.8-7.8)
[2019-01-06] MEDS ORDERED: FLUC200T PO (22:48)
[2019-01-06 22:58] LABS: ALANINE AMINOTRANSFERASE 12 U/L (0-55); ALKALINE PHOSPHATASE 112 U/L (40-136); BILIRUBIN,TOTAL 0.2 MG/DL (0.1-1.0); BUN/CREATININE RATIO 13; CALCIUM 9.4 MG/DL (8.5-10.1); CARBON DIOXIDE 26 MMOL/L (21-32); CHLORIDE 99 MMOL/L (98-107); CREATININE SERUM 0.99 MG/DL (0.60-1.30); GFR ESTIMATED 59; GLUCOSE 168 MG/DL (70-105); POTASSIUM 3.9 MMOL/L (3.6-5.0); SODIUM 138 MMOL/L (135-145)
[2019-01-06 22:59] LABS: ACETAMINOPHEN < 10 UG/ML (10-30); ALBUMIN 3.9 GM/DL (3.2-4.5); SALICYLATE < 5.0 MG/DL (5.0-20.0); TOTAL PROTEIN 7.4 GM/DL (6.4-8.2)
[2019-01-07 01:32] VITALS: BP 112/78
== END 2019-01-07 01:32 | disposition home or self-care (01) ==
LOC: EDUNIT# 21:51 → ER FS 21:51
DX: R45.851 Suicidal ideations (principal); B37.41 Candidal cystitis and urethritis; J45.909 Unspecified asthma, uncomplicated; I10 Essential (primary) hypertension; E11.9 Type 2 diabetes mellitus without complications; Z85.528 Personal history of other malignant neoplasm of kidney; Z87.442 Personal history of urinary calculi; Z77.22 Contact with and (suspected) exposure to environmental tobacco smoke (acute) (chronic); Z90.710 Acquired absence of both cervix and uterus; Z90.89 Acquired absence of other organs; Z98.51 Tubal ligation status
CPT/HCPCS: 36415; 80053; 80306; 80320; 80329; 81000; 85025; 87088

== ENCOUNTER 2019-01-08 17:10 | Emergency (ER) | payer MEDICARE, MEDICAID ==
[~2019-01-08] VITALS: Ht 170.2 cm; Wt 63.0 kg
[~2019-01-08 17:10] MED LIST changes: +FLUC200T PO
--- OUTSIDE RECORDS SUMMARY | 2019-01-08 17:15 | XMS REPORT | Clinical Summary ---
Author Author Admin, CARTERE Organization [facility] Address Unknown Phone Unavailable Allergies, [...] Halle Sahni MD Rupture of bladder, nontraumatic BMI 36-36.9 Active Halle Sahni MD Body Mass Index 36.0- 36.9, adult Obesity Class II (BMI 35-39.9) Active Halle Sahni MD Obesity, unspecified Hydronephrosis, right ICD-591 Inactive Hardeep Barker MD Hematuria ICD-599.70 Inactive Hardeep Barker MD Hydronephrosis with ureteral stricture, not elsewhere classified ICD-591 Inactive Hardeep Barker MD Other microscopic hematuria ICD-599.70 Inactive Hardeep Barker MD Hernia, Ventral 553.20 Inactive Hardeep Barker MD Morbid obesity due to excess calories ICD-278.00 Inactive Nay Escamilla Other specified complications of surgical and medical care, not elsewhere classified, initial encounter ICD-998.13 Inactive Hardeep Barker MD BMI 36-36.9 Farhan Escamilla Medication List Medication Instructions Start Date Stop Date Generic Name NDC Status Provider Patient Instruction BACTRIM DS 800-160 MG ORAL TABLET 1 tab BID SULFAMETHOXAZOLE-TRIMETHOPRIM 36336587316 No Longer Active Hardeep Barker MD Active LEVEMIR FLEXTOUCH 100 UNIT/ML SUBCUTANEOUS SOLUTION PEN-INJECTOR 100 units twice daily INSULIN DETEMIR 53044388002 Active Hardeep Barker MD Active NOVOLOG PENFILL 100 UNIT/ML SUBCUTANEOUS SOLUTION CARTRIDGE 50 units twice daily INSULIN ASPART 36618145435 Active Hardeep Barker MD Active GEODON 80 MG ORAL CAPSULE 2 cap at Bedtime ZIPRASIDONE HCL 31789899329 Active Hardeep Barker MD Active MECLIZINE HCL 12.5 MG ORAL TABLET MECLIZINE HCL 32294270429 No Longer Active Hardeep Barker MD Active LEVAQUIN 500 MG ORAL TABLET 1 tab twice daily LEVOFLOXACIN 40940127948 No Longer Active Halle Sahni MD Active DIFLUCAN 150 MG ORAL TABLET FLUCONAZOLE 14852360526 No Longer Active Halle Sahni MD Active LIPITOR 10 MG ORAL TABLET 1 tab by mouth daily ATORVASTATIN CALCIUM 85914350859 Active Halle Sahni MD Active BYSTOLIC 5 MG ORAL TABLET 1 tab by mouth daily NEBIVOLOL HCL 65157839512 Active Halle Sahni MD Active TRADJENTA 5 MG ORAL TABLET 1 tab by mouth daily LINAGLIPTIN 84251766775 Active Halle Sahni MD Active LISINOPRIL 5 MG ORAL TABLET 1 po qd LISINOPRIL 11288589558 Active Halle Sahni MD Active LEXAPRO 10 MG ORAL TABLET 1 tablet by mouth daily ESCITALOPRAM OXALATE 90622287060 Active Halle Sahni MD Active METFORMIN HCL 500 MG ORAL TABLET 1 tablet by mouth three times daily METFORMIN HCL 70410998403 Active Halle Sahni MD Active DIFLUCAN 150 MG ORAL TABLET DIFLUCAN 150 MG ORAL TABLET 780348 FLUCONAZOLE Inactive LEVAQUIN 500 MG ORAL TABLET 1 tab twice daily LEVAQUIN 500 MG ORAL TABLET 332648 LEVOFLOXACIN Inactive MECLIZINE HCL 12.5 MG ORAL TABLET MECLIZINE HCL 12.5 MG ORAL TABLET 545491 MECLIZINE HCL Inactive BACTRIM DS 800-160 MG ORAL TABLET 1 tab BID BACTRIM DS 800-160 MG ORAL TABLET 468182 SULFAMETHOXAZOLE-TRIMETHOPRIM Inactive Advance Directives Directive Description Start Date PERMISSION TO SHARE Immunizations Vaccine Administration Date Value Standard Description influenza immunization (Flu Vax) has been administered Done according to patient influenza virus vaccine, unspecified formulation Vital Signs Date Name Value Unit Range Description blood pressure, diastolic, repeated by physician 74 BP [place] blood pressure, diastolic 74 mm[Hg] BP [place] blood pressure, systolic, repeated by physician 120 BP sys blood pressure, systolic 120 mm[Hg] BP sys height E&M 67 [in_us] Bdy height pulse rate E&M 78 /min Heart rate temperature E&M 98.3 [degF] Body temperature weight E&M 235 [lb_av] Weight Measured blood pressure, diastolic, repeated by physician 72 [...] negative Encounters Code Encounter Date Provider Facility CPT-65744 Level 3 Est. Patient 12:27:57 CDT Halle Sanhi MD [facility] CPT-60369 Level 3 Est. Patient 15:50:26 CDT Halle Sahni MD [facility] CPT-64929 Level 3 Est. Patient 11:10:51 PHOTOENGRAVING PHOTOGRAPHER Hardeep Barker MD [facility] CPT-04323 Level 4 New Patient 16:02:27 PHOTOENGRAVING PHOTOGRAPHER Hardeep Barker MD [facility] CPT-51660 Level 4 Est. Patient 13:31:38 PHOTOENGRAVING PHOTOGRAPHER Halle Sahni MD [facility] CPT-25499 Level 3 Est. Patient 14:10:08 PHOTOENGRAVING PHOTOGRAPHER Halle Sahni MD [facility] [place] CPT-39288 Level 3 Est. Patient 10:01:09 CDT Halle Sahni MD [facility] CPT-48480 Level 4 New Patient 16:33:13 CDT Halle Sahni MD [facility] Procedures Code Procedure Name Date Entry Date Standard Description CPT-71391 Cystoscopy 15:50:27 CDT CPT-25292 Postop F/U Visit 15:34:52 PHOTOENGRAVING PHOTOGRAPHER CPT-28921 I/D hematoma seroma fld gauri 11:10:51 PHOTOENGRAVING PHOTOGRAPHER CPT-18540 Postop F/U Visit 15:20:53 PHOTOENGRAVING PHOTOGRAPHER CPT-85381 Postop F/U Visit 13:46:08 PHOTOENGRAVING PHOTOGRAPHER
--- OUTSIDE RECORDS SUMMARY | 2019-01-08 17:16 | XMS REPORT | Clinical Summary ---
Author Author Admin, CARTERE Organization [facility] Address Unknown Phone Unavailable Allergies, Adverse Reactions, [...] 35-39.9) Active Halle Sahni MD Obesity, unspecified Other microscopic hematuria ICD-599.70 Inactive Hardeep [...] MG ORAL TABLET 1 tab BID SULFAMETHOXAZOLE-TRIMETHOPRIM 17006128079 No Longer Active Hardeep Barker MD Active LEVEMIR FLEXTOUCH 100 UNIT/ML SUBCUTANEOUS SOLUTION PEN-INJECTOR 100 units twice daily INSULIN DETEMIR 62812840591 Active Hardeep Barker MD Active NOVOLOG PENFILL 100 UNIT/ML SUBCUTANEOUS SOLUTION CARTRIDGE 50 units twice daily INSULIN ASPART 13682332419 Active Hardeep Barker MD Active GEODON 80 MG ORAL CAPSULE 2 cap at Bedtime ZIPRASIDONE HCL 79806133334 Active Hardeep Barker MD Active MECLIZINE HCL 12.5 MG ORAL TABLET MECLIZINE HCL 35817783917 No Longer Active Hardeep Barker MD Active LEVAQUIN 500 MG ORAL TABLET 1 tab twice daily LEVOFLOXACIN 51258859063 No Longer Active Halle Sahni MD Active DIFLUCAN 150 MG ORAL TABLET FLUCONAZOLE 19758048875 No Longer Active Halle Sahni MD Active LIPITOR 10 MG ORAL TABLET 1 tab by mouth daily ATORVASTATIN CALCIUM 83119141296 Active Halle Sahni MD Active BYSTOLIC 5 MG ORAL TABLET 1 tab by mouth daily NEBIVOLOL HCL 24933662603 Active Halle Sahni MD Active TRADJENTA 5 MG ORAL TABLET 1 tab by mouth daily LINAGLIPTIN 87085992566 Active Halle Sahni MD Active LISINOPRIL 5 MG ORAL TABLET 1 po qd LISINOPRIL 02112227085 Active Halle Sahni MD Active LEXAPRO 10 MG ORAL TABLET 1 tablet by mouth daily ESCITALOPRAM OXALATE 64052614036 Active Halle Sahni MD Active METFORMIN HCL 500 MG ORAL TABLET 1 tablet by mouth three times daily METFORMIN HCL 32094313296 Active Halle Sahni MD Active DIFLUCAN 150 MG ORAL TABLET DIFLUCAN 150 MG ORAL TABLET 872237 FLUCONAZOLE Inactive LEVAQUIN 500 MG ORAL TABLET 1 tab twice daily LEVAQUIN 500 MG ORAL TABLET 744912 LEVOFLOXACIN Inactive MECLIZINE HCL 12.5 MG ORAL TABLET MECLIZINE HCL 12.5 MG ORAL TABLET 688160 MECLIZINE HCL Inactive BACTRIM DS 800-160 MG ORAL TABLET 1 tab BID BACTRIM DS 800-160 MG ORAL TABLET 363205 SULFAMETHOXAZOLE-TRIMETHOPRIM Inactive Advance Directives Directive Description Start [...] negative Encounters Code Encounter Date Provider Facility CPT-03720 Level 3 Est. Patient 12:27:57 CDT Halle Sahni MD [facility] CPT-17942 Level 3 Est. Patient 15:50:26 CDT Halle Sahni MD [facility] CPT-67601 Level 3 Est. Patient 11:10:51 DATABASE MARKETING ANALYST Hardeep Barker MD [facility] CPT-24912 Level 4 New Patient 16:02:27 DATABASE MARKETING ANALYST Hardeep Barker MD [facility] CPT-11563 Level 4 Est. Patient 13:31:38 DATABASE MARKETING ANALYST Halle Sahni MD [facility] CPT-18301 Level 3 Est. Patient 14:10:08 DATABASE MARKETING ANALYST Halle Sahni MD [facility] [place] CPT-73686 Level 3 Est. Patient 10:01:09 CDT Halle Sahni MD [facility] CPT-50280 Level 4 New Patient 16:33:13 CDT Halle Sahni MD [facility] Procedures Code Procedure Name Date Entry Date Standard Description CPT-95103 Cystoscopy 15:50:27 CDT CPT-12031 Postop F/U Visit 15:34:52 DATABASE MARKETING ANALYST CPT-56292 I/D hematoma seroma fld gauri 11:10:51 DATABASE MARKETING ANALYST CPT-96665 Postop F/U Visit 15:20:53 DATABASE MARKETING ANALYST CPT-82932 Postop F/U Visit 13:46:08 DATABASE MARKETING ANALYST
--- OUTSIDE RECORDS SUMMARY | 2019-01-08 17:28 | XMS REPORT | Continuity of Care Document ---
Demographics Preferred Language Unknown Marital Status Unknown Baptism Affiliation Unknown Race Unknown Ethnic Group Unknown Author Organization Unknown Address Unknown Allergies Active Description Code Type Severity Reaction Onset Reported/Identified Relationship to Patient Clinical Status Yes No Known Medication Allergies Drug N/A N/A Yes No Known Drug Allergies [id number] Drug Allergy Unknown N/A 10/16/2018 Medications There is no data. Problems Date Dx Coded Attending Type Code Diagnosis Diagnosed By 07/05/2010 [facility] [employer]ICER, HEATHER 278.01 OBESITY MORBID 07/05/2010 [facility] [employer]ICE OFFICER, HEATHER 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, Unspecified 07/05/2010 [facility] [employer]ICE OFFICER, HEATHER V15.82 TOBACCOISM 07/05/2010 [facility] POLICE OFFICER, HEATHER 278.01 OBESITY MORBID 07/05/2010 [facility] POLICE OFFICER, HEATHER 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, Unspecified 07/05/2010 [facility] POLICE OFFICER, HEATHER V15.82 TOBACCOISM 07/05/2010 [facility] POLICE OFFICER, HEATHER 278.01 OBESITY MORBID 07/05/2010 [facility] POLICE OFFICER, HEATHER 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, Unspecified 07/05/2010 [facility] POLICE OFFICER, HEATHER V15.82 TOBACCOISM 07/05/2010 [facility] POLICE OFFICER, HEATHER 278.01 OBESITY MORBID 07/05/2010 [facility] POLICE OFFICER, HEATHER 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, Unspecified 07/05/2010 [facility] [employer], HEATHER V15.82 TOBACCOISM 07/05/2010 [facility] [employer], HEATHER 278.01 OBESITY MORBID 07/05/2010 [facility] [employer], HEATHER 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, Unspecified 07/05/2010 [facility] [employer], HEATHER V15.82 TOBACCOISM 07/05/2010 [facility] [employer], HEATHER 278.01 OBESITY MORBID 07/05/2010 [facility] POLICE OFFICER, HEATHER 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, Unspecified 07/05/2010 [facility] [employer], HEATHER V15.82 TOBACCOISM 07/05/2010 [facility] [employer], HEATHER 278.01 OBESITY MORBID 07/05/2010 [facility] [employer], HEATHER 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, Unspecified 07/05/2010 [facility] [employer]IC[employer], HEATHER V15.82 TOBACCOISM 07/05/2010 [facility] [employer], MARIANNA 278.01 OBESITY MORBID 07/05/2010 [facility] [employer]IC[employer], MARIANNA 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, Unspecified 07/05/2010 [facility] [employer]IC[employer], MARIANNA V15.82 TOBACCOISM 07/05/2010 [facility] [employer]IC[employer], MARIANNA 278.01 OBESITY MORBID 07/05/2010 [facility] [employer]IC[employer], MARIANNA 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, Unspecified 07/05/2010 [facility] [employer] OFFIC[employer], MARIANNA V15.82 TOBACCOISM 07/07/2010 [facility] [employer], HEATHER 280.9 Anemia Hypochromic / Microcytic 07/07/2010 [facility] POLICE OFFICER, HEATHER 796.2 Prehypertension 07/07/2010 [facility] POLICE OFFICER, HEATHER V04.81 Influenza Vaccine 07/07/2010 [facility] [employer], HEATHER V68.89 Encounters For Other Specified Administrative Purpose 07/07/2010 [facility] [employer], HAETHER V72.31 Routine Pelvic Exam 07/07/2010 [facility] [employer]ICE OFFICER, HEATHER 280.9 Anemia Hypochromic / Microcytic 07/07/2010 [facility] [employer], HEATHER 796.2 Prehypertension 07/07/2010 [facility] [employer], HEATHER V04.81 Influenza Vaccine 07/07/2010 [facility] [employer], HEATHER V68.89 Encounters For Other Specified Administrative Purpose 07/07/2010 [facility] [employer]IC[employer], HEATHER V72.31 Routine Pelvic Exam 07/07/2010 [facility] [employer], HEATHER 280.9 Anemia Hypochromic / Microcytic 07/07/2010 [facility] [employer]IC[employer], HEATHER 796.2 Prehypertension 07/07/2010 [facility] [employer], HEATHER V04.81 Influenza Vaccine 07/07/2010 [facility] [employer]IC[employer], HEATHER V68.89 Encounters For Other Specified Administrative Purpose 07/07/2010 [facility] [employer]ICER, HEATHER V72.31 Routine Pelvic Exam 07/07/2010 [facility] POLICE OFFICER, HEATHER 280.9 Anemia Hypochromic / Microcytic 07/07/2010 [facility] [employer], HEATHER 796.2 Prehypertension 07/07/2010 [facility] POLICE OFFICER, HEATHER V04.81 Influenza Vaccine 07/07/2010 [facility] [employer]ICER, HEATHER V68.89 Encounters For Other Specified Administrative Purpose 07/07/2010 [facility] [employer] OFFICER, HEATHER V72.31 Routine Pelvic Exam 07/07/2010 [facility] [employer], HEATHER 280.9 Anemia Hypochromic / Microcytic 07/07/2010 [facility] [employer]IC[employer], HEATHER 796.2 Prehypertension 07/07/2010 [facility] [employer]IC[employer], HEATHER V04.81 Influenza Vaccine 07/07/2010 [facility] [employer]IC[employer], HEATHER V68.89 Encounters For Other Specified Administrative Purpose 07/07/2010 [facility] [employer]IC[employer], HEATHER V72.31 Routine Pelvic Exam 07/07/2010 [facility] POLICE OFFICER, HEATHER 280.9 Anemia Hypochromic / Microcytic 07/07/2010 [facility] POLICE OFFICER, HEATHER 796.2 Prehypertension 07/07/2010 [facility] POLICE OFFICER, HEATHER V04.81 Influenza Vaccine 07/07/2010 [facility] POLICE OFFICER, HEATHER V68.89 Encounters For Other Specified Administrative Purpose 07/07/2010 [facility] [employer], HEATHER V72.31 Routine Pelvic Exam 07/07/2010 [facility] POLICE OFFICER, HEATHER 280.9 Anemia Hypochromic / Microcytic 07/07/2010 [facility] [employer], HEATHER 796.2 Prehypertension 07/07/2010 [facility] POLICE OFFICER, HEATHER V04.81 Influenza Vaccine 07/07/2010 [facility] [employer]IC[employer], HEATHER V68.89 Encounters For Other Specified Administrative Purpose 07/07/2010 [facility] [employer]ICER, HEATHER V72.31 Routine Pelvic Exam 07/07/2010 [facility] [employer], MARIANNA 280.9 Anemia Hypochromic / Microcytic 07/07/2010 [facility] [employer]IC[employer], MARIANNA 796.2 Prehypertension 07/07/2010 [facility] [employer]IC[employer], MARIANNA V04.81 Influenza Vaccine 07/07/2010 [facility] [employer]IC[employer], MARIANNA V68.89 Encounters For Other Specified Administrative Purpose 07/07/2010 [facility] [employer]ICER, MARIANNA V72.31 Routine Pelvic Exam 07/07/2010 [facility] [employer]IC[employer], MARIANNA 280.9 Anemia Hypochromic / Microcytic 07/07/2010 [facility] POLICE OFFICEREN SunshineE 796.2 Prehypertension 07/07/2010 [facility] [employer] OFFICERMARIANNA Sunshine V04.81 Influenza Vaccine 07/07/2010 [facility] [employer] OFFICERMARIANNA Sunshine V68.89 Encounters For Other Specified Administrative Purpose 07/07/2010 [facility] [employer] OFFICERMARIANNA V72.31 Routine Pelvic Exam 10/20/2010 [facility] [employer], HEATHER 112.1 Candidiasis, Of Vulva And Vagina 10/20/2010 [facility] [employer], HEATHER 599.0 Uti 10/20/2010 [facility] [employer], HEATHER 112.1 Candidiasis, Of Vulva And Vagina 10/20/2010 [facility] [employer]ICER, HEATHER 599.0 Uti 10/20/2010 [facility] [employer], HEATHER 112.1 Candidiasis, Of Vulva And Vagina 10/20/2010 [facility] [employer]ICER, HEATHER 599.0 Uti 10/20/2010 [facility] [employer]ER, HEATHER 112.1 Candidiasis, Of Vulva And Vagina 10/20/2010 [facility] [employer]ICER, HEATHER 599.0 Uti 10/20/2010 [facility] [employer], HEATHER 112.1 Candidiasis, Of Vulva And Vagina 10/20/2010 [facility] [employer]ICER, HEATHER 599.0 Uti 10/20/2010 [facility] [employer], HEATHER 112.1 Candidiasis, Of Vulva And Vagina 10/20/2010 [facility] [employer]ICER, HEATHER 599.0 Uti 10/20/2010 [facility] [employer]IC[employer], HEATHER 112.1 Candidiasis, Of Vulva And Vagina 10/20/2010 [facility] [employer]ICER, HEATHER 599.0 Uti 10/20/2010 [facility] [employer]ICER, MARIANNA 112.1 Candidiasis, Of Vulva And Vagina 10/20/2010 [facility] [employer] OFFICER, MARIANNA 599.0 Uti 10/20/2010 [facility] [employer] OFFICER, MARIANNA 112.1 Candidiasis, Of Vulva And Vagina 10/20/2010 [facility] [employer] OFFICER, MARIANNA 599.0 Uti 10/24/2010 [facility] [employer], HEATHER 250.00 DIABETES MELLITUS TYPE 2 10/24/2010 [facility] [employer], HEATHER 466.0 Bronchitis, Acute 10/24/2010 [facility] [employer], HEATHER 496 PULMONARY OBSTRUCTIVE DISORDERS 10/24/2010 [facility] [employer]ICER, HEATHER 250.00 DIABETES MELLITUS TYPE 2 10/24/2010 [facility] [employer]ICER, HEATHER 466.0 Bronchitis, Acute 10/24/2010 [facility] [employer] OFFICER, HEATHER 496 PULMONARY OBSTRUCTIVE DISORDERS 10/24/2010 [facility] [employer] OFFICER, HEATHER 250.00 DIABETES MELLITUS TYPE 2 10/24/2010 [facility] [employer] OFFICER, HEATHER 466.0 Bronchitis, Acute 10/24/2010 [facility] [employer] OFFICER, HEATHER 496 PULMONARY OBSTRUCTIVE DISORDERS 10/24/2010 [facility] [employer] OFFICER, HEATHER 250.00 DIABETES MELLITUS TYPE 2 10/24/2010 [facility] [employer] OFFICER, HEATHER 466.0 Bronchitis, Acute 10/24/2010 [facility] [employer]ICER, HEATHER 496 PULMONARY OBSTRUCTIVE DISORDERS 10/24/2010 [facility] POLICE OFFICER, HEATHER 250.00 DIABETES MELLITUS TYPE 2 10/24/2010 [facility] [employer]ICER, HEATHER 466.0 Bronchitis, Acute 10/24/2010 [facility] [employer]ICER, HEATHER 496 PULMONARY OBSTRUCTIVE DISORDERS 10/24/2010 [facility] [employer] OFFICER, HEATHER 250.00 DIABETES MELLITUS TYPE 2 10/24/2010 [facility] [employer] OFFICER, HEATHER 466.0 Bronchitis, Acute 10/24/2010 [facility] [employer]ICER, HEATHER 496 PULMONARY OBSTRUCTIVE DISORDERS 10/24/2010 [facility] POLICE OFFICER, HEATHER 250.00 DIABETES MELLITUS TYPE 2 10/24/2010 [facility] [employer]ICER, HEATHER 466.0 Bronchitis, Acute 10/24/2010 [facility] [employer]ICER, HEATHER 496 PULMONARY OBSTRUCTIVE DISORDERS 10/24/2010 [facility] [employer]IC[employer], MARIANNA 250.00 DIABETES MELLITUS TYPE 2 10/24/2010 [facility] [employer]ICER, MARIANNA 466.0 Bronchitis, Acute 10/24/2010 [facility] [employer]ICER, MARIANNA 496 PULMONARY OBSTRUCTIVE DISORDERS 10/24/2010 [facility] [employer]ICER, MARIANNA 250.00 DIABETES MELLITUS TYPE 2 10/24/2010 [facility] [employer] OFFICER, MARIANNA 466.0 Bronchitis, Acute 10/24/2010 [facility] [employer]ICER, MARIANNA 496 PULMONARY OBSTRUCTIVE DISORDERS 05/12/2011 [facility] POLICE OFFICER, HEATHER 703.0 Ingrowing Nail 05/12/2011 [facility] [employer], HEATHER 726.91 EXOSTOSIS OF UNSPECIFIED SITE 05/12/2011 [facility] [employer], HEATHER 703.0 Ingrowing Nail 05/12/2011 [facility] [employer], HEATHER 726.91 EXOSTOSIS OF UNSPECIFIED SITE 05/12/2011 [facility] [employer]ER, HEATHER 703.0 Ingrowing Nail 05/12/2011 [facility] [employer]ER, HEATHER 726.91 EXOSTOSIS OF UNSPECIFIED SITE 05/12/2011 [facility] [employer]ICER, HEATHER 703.0 Ingrowing Nail 05/12/2011 [facility] [employer]ER, HEATHER 726.91 EXOSTOSIS OF UNSPECIFIED SITE 05/12/2011 [facility] [employer], HEATHER 703.0 Ingrowing Nail 05/12/2011 [facility] [employer]ER, HEATHER 726.91 EXOSTOSIS OF UNSPECIFIED SITE 05/12/2011 [facility] POLICE OFFICER, HEATHER 703.0 Ingrowing Nail 05/12/2011 [facility] [employer], HEATHER 726.91 EXOSTOSIS OF UNSPECIFIED SITE 05/12/2011 [facility] [employer]ER, HEATHER 703.0 Ingrowing Nail 05/12/2011 [facility] POLICE OFFICER, HEATHER 726.91 EXOSTOSIS OF UNSPECIFIED SITE 05/12/2011 [facility] [employer]ICER, MARIANNA 703.0 Ingrowing Nail 05/12/2011 [facility] [employer]ICER, MARIANNA 726.91 EXOSTOSIS OF UNSPECIFIED SITE 05/12/2011 [facility] [employer] OFFICER, MARIANNA 703.0 Ingrowing Nail 05/12/2011 [facility] [employer]ICER, MARIANNA 726.91 EXOSTOSIS OF UNSPECIFIED SITE 06/02/2011 [facility] [employer], HEATHER 078.12 Plantar Wart 06/02/2011 [facility] [employer], HEATHER 078.12 Plantar Wart 06/02/2011 [facility] [employer], HEATHER 078.12 Plantar Wart 06/02/2011 [facility] [employer]ER, HEATHER 078.12 Plantar Wart 06/02/2011 [facility] [employer]ICER, HEATHER 078.12 Plantar Wart 06/02/2011 [facility] [employer]ICER, HEATHER 078.12 Plantar Wart 06/02/2011 [facility] [employer]ER, HEATHER 078.12 Plantar Wart 06/02/2011 [facility] [employer]ICER, MARIANNA 078.12 Plantar Wart 06/02/2011 [facility] [employer]ICER, MARIANNA 078.12 Plantar Wart 07/05/2011 [facility] [employer], HEATHER 466.0 ACUTE BRONCHITIS 07/05/2011 [facility] [employer], HEATHER 466.0 ACUTE BRONCHITIS 07/05/2011 [facility] [employer]ICER, HEATHER 466.0 ACUTE BRONCHITIS 07/05/2011 [facility] [employer]ICER, HEATHER 466.0 ACUTE BRONCHITIS 07/05/2011 [facility] [employer]ICER, HEATHER 466.0 ACUTE BRONCHITIS 07/05/2011 [facility] [employer]ICER, HEATHER 466.0 ACUTE BRONCHITIS 07/05/2011 [facility] [employer]ICER, HEATHER 466.0 ACUTE BRONCHITIS 07/05/2011 [facility] [employer]ICER, MARIANNA 466.0 ACUTE BRONCHITIS 07/05/2011 [facility] [employer] OFFICER, MARIANNA 466.0 ACUTE BRONCHITIS 11/20/2011 [facility] [employer], HEATHER 682.9 CELLULITIS 11/20/2011 [facility]ER, HEATHER 682.9 CELLULITIS 11/20/2011 [facility] [employer]ICER, HEATHER 682.9 CELLULITIS 11/20/2011 [facility] [employer]ICER, HEATHER 682.9 CELLULITIS 11/20/2011 [facility] [employer]ICER, HEATHER 682.9 CELLULITIS 11/20/2011 [facility]ICER, HEATHER 682.9 CELLULITIS 11/20/2011 [facility]ICER, HEATHER 682.9 CELLULITIS 11/20/2011 [facility] [employer]IC[employer], MARIANNA 682.9 CELLULITIS 11/20/2011 [facility] [employer]ICER, MARIANNA 682.9 CELLULITIS 12/22/2011 [facility] [employer], HEATHER 401.1 ESSENTIAL HYPERTENSION BENIGN 12/22/2011 [facility] [employer]ICER, HEATHER 401.1 ESSENTIAL HYPERTENSION BENIGN 12/22/2011 [facility] [employer]ER, HEATHER 401.1 ESSENTIAL HYPERTENSION BENIGN 12/22/2011 [facility] [employer]ICER, HEATHER 401.1 ESSENTIAL HYPERTENSION BENIGN 12/22/2011 ALEX IRVIN APRNEN 401.1 ESSENTIAL HYPERTENSION BENIGN 12/22/2011 [facility] SPECIAL POLICE OFFICERALEXEN 401.1 ESSENTIAL HYPERTENSION BENIGN 12/22/2011 [facility] ULLOAN HEATHER 401.1 ESSENTIAL HYPERTENSION BENIGN 12/22/2011 [facility] [employer]ICER, MARIANNA 401.1 ESSENTIAL HYPERTENSION BENIGN 12/22/2011 [facility] [employer] OFFICER, MARIANNA 401.1 ESSENTIAL HYPERTENSION BENIGN 04/09/2012 [facility] [employer], HEATHER 272.2 HYPERLIPIDEMIA 04/09/2012 [facility] [employer] HEATHER V04.81 Need For Prophylactic Vaccination And Inoculation Against Influenza 04/09/2012 [facility] POLICE OFFICERHEATHER Sunshine 272.2 HYPERLIPIDEMIA 04/09/2012 [facility] [employer]ER HEATHER V04.81 Need For Prophylactic Vaccination And Inoculation Against Influenza 04/09/2012 [facility] POLICE OFFICERHEATHER Sunshine 272.2 HYPERLIPIDEMIA 04/09/2012 [facility] [employer] OFFICER, HEATHER V04.81 Need For Prophylactic Vaccination And Inoculation Against Influenza 04/09/2012 [facility] POLICE OFFICERHEATHER Sunshine 272.2 HYPERLIPIDEMIA 04/09/2012 [facility] [employer] OFFICER, HEATHER V04.81 Need For Prophylactic Vaccination And Inoculation Against Influenza 04/09/2012 [facility] POLICE OFFICERHEATHER Sunshine 272.2 HYPERLIPIDEMIA 04/09/2012 [facility] [employer] OFFICER, HEATHER V04.81 Need For Prophylactic Vaccination And Inoculation Against Influenza 04/09/2012 [facility] POLICE OFFICERHEATHER Sunshine 272.2 HYPERLIPIDEMIA 04/09/2012 [facility] [employer]ICER, HEATHER V04.81 Need For Prophylactic Vaccination And Inoculation Against Influenza 04/09/2012 [facility] POLICE OFFICERHEATHER Sunshine 272.2 HYPERLIPIDEMIA 04/09/2012 [facility] POLICE OFFICERHEATHER Sunshine V04.81 Need For Prophylactic Vaccination And Inoculation Against Influenza 04/09/2012 [facility] POLICE OFFICEREN SunshineE 272.2 HYPERLIPIDEMIA 04/09/2012 [facility] POLICE OFFICERMARIANNA Sunshine V04.81 Need For Prophylactic Vaccination And Inoculation Against Influenza 04/09/2012 [facility] [employer] OFFICERMARIANNA Sunshine 272.2 HYPERLIPIDEMIA 04/09/2012 [facility] [employer] OFFICERMARIANNA Sunshine V04.81 Need For Prophylactic Vaccination And Inoculation Against Influenza 05/14/2012 [facility] HEATHER WRIGHT 682.9 Cellulitis/abscess 05/14/2012 [facility] [employer], HEATHER 682.9 Cellulitis/abscess 05/14/2012 [facility] [employer], HEATHER 682.9 Cellulitis/abscess 05/14/2012 [facility] [employer]ICER, HEATHER 682.9 Cellulitis/abscess 05/14/2012 [facility], HEATHER 682.9 Cellulitis/abscess 05/14/2012 [facility] [employer]IC[employer], HEATHER 682.9 Cellulitis/abscess 05/14/2012 [facility] [employer]ER, HEATHER 682.9 Cellulitis/abscess 05/14/2012 [facility] [employer]ICER, MARIANNA 682.9 Cellulitis/abscess 05/14/2012 [facility] [employer] OFFICER, MARIANNA 682.9 Cellulitis/abscess 06/24/2012 [facility] [employer], HEATHER 112.1 Candidiasis, Of Vulva And Vagina 06/24/2012 [facility] [employer]IC[employer], HEATHER 112.1 Candidiasis, Of Vulva And Vagina 06/24/2012 [facility] [employer]ICER, HEATHER 112.1 Candidiasis, Of Vulva And Vagina 06/24/2012 [facility] [employer] OFFICER, HEATHER 112.1 Candidiasis, Of Vulva And Vagina 06/24/2012 [facility] [employer] OFFICER, HEATHER 112.1 Candidiasis, Of Vulva And Vagina 06/24/2012 [facility] [employer]ICER, HEATHER 112.1 Candidiasis, Of Vulva And Vagina 06/24/2012 [facility] [employer] OFFICER, HEATHER 112.1 Candidiasis, Of Vulva And Vagina 06/24/2012 [facility] [employer] OFFICER, MARIANNA 112.1 Candidiasis, Of Vulva And Vagina 06/24/2012 [facility] [employer]ICE OFFICER, MARIANNA 112.1 Candidiasis, Of Vulva And Vagina 06/28/2012 [facility] [employer], HEATHER 110.1 Onychomycosis 06/28/2012 [facility] [employer], HEATHER 703.8 Other Specified Diseases Of Nail 06/28/2012 [facility] [employer], HEATHER 110.1 Onychomycosis 06/28/2012 [facility] [employer]ICER, HEATHER 703.8 Other Specified Diseases Of Nail 06/28/2012 [facility] [employer]IC[employer], HEATHER 110.1 Onychomycosis 06/28/2012 [facility] [employer]ICER, HEATHER 703.8 Other Specified Diseases Of Nail 06/28/2012 [facility] [employer]ICER, HEATHER 110.1 Onychomycosis 06/28/2012 [facility] [employer]ICER, HEATHER 703.8 Other Specified Diseases Of Nail 06/28/2012 [facility] [employer]ICER, HEATHER 110.1 Onychomycosis 06/28/2012 [facility] [employer]ICER, HEATHER 703.8 Other Specified Diseases Of Nail 06/28/2012 [facility] [employer]ICER, HEATHER 110.1 Onychomycosis 06/28/2012 [facility] [employer]ICER, HEATHER 703.8 Other Specified Diseases Of Nail 06/28/2012 [facility] [employer]ICER, HEATHER 110.1 Onychomycosis 06/28/2012 [facility] [employer]ICER, HEATHER 703.8 Other Specified Diseases Of Nail 06/28/2012 [facility] [employer]IC[employer], MARIANNA 110.1 Onychomycosis 06/28/2012 [facility] [employer] OFFICER, MARIANNA 703.8 Other Specified Diseases Of Nail 06/28/2012 [facility] [employer] OFFICER, MARIANNA 110.1 Onychomycosis 06/28/2012 [facility] [employer]ICER, MARIANNA 703.8 Other Specified Diseases Of Nail 08/21/2012 [facility] [employer], HEATHER 682.9 Cellulitis/abscess 08/21/2012 [facility] [employer], HEATHER V72.31 Gynecological Exam 08/21/2012 [facility] [employer], HEATHER 682.9 Cellulitis/abscess 08/21/2012 [facility] [employer]IC[employer], HEATHER V72.31 Gynecological Exam 08/21/2012 [facility] [employer] OFFICER, HEATHER 682.9 Cellulitis/abscess 08/21/2012 [facility] [employer]ICER, HEATHER V72.31 Gynecological Exam 08/21/2012 [facility] [employer] OFFICER, HEATHER 682.9 Cellulitis/abscess 08/21/2012 [facility] [employer] OFFICER, HEATHER V72.31 Gynecological Exam 08/21/2012 [facility] [employer] OFFICER, HEATHER 682.9 Cellulitis/abscess 08/21/2012 [facility] [employer]ICER, HEATHER V72.31 Gynecological Exam 08/21/2012 [facility] [employer] OFFICER, HEATHER 682.9 Cellulitis/abscess 08/21/2012 [facility] [employer]ICER, HEATHER V72.31 Gynecological Exam 08/21/2012 [facility] [employer]ICER, HEATHER 682.9 Cellulitis/abscess 08/21/2012 [facility] [employer]ICER, HEATHER V72.31 Gynecological Exam 08/21/2012 [facility] [employer]IC[employer], MARIANNA 682.9 Cellulitis/abscess 08/21/2012 [facility] [employer] OFFICER, MARIANNA V72.31 Gynecological Exam 08/21/2012 [facility] [employer]ICE OFFICER, MARIANNA 682.9 Cellulitis/abscess 08/21/2012 [facility] [employer] OFFICER, MARIANNA V72.31 Gynecological Exam 10/08/2012 [facility] [employer], HEATHER 466.0 Bronchitis, Acute 10/08/2012 [facility] [employer], HEATHER 466.0 Bronchitis, Acute 10/08/2012 [facility] [employer]IC[employer], HEATHER 466.0 Bronchitis, Acute 10/08/2012 [facility] [employer]IC[employer], HEATHER 466.0 Bronchitis, Acute 10/08/2012 [facility] [employer]ICER, HEATHER 466.0 Bronchitis, Acute 10/08/2012 [facility] [employer]ICER, HEATHER 466.0 Bronchitis, Acute 10/08/2012 [facility] [employer]ICER, HEATHER 466.0 Bronchitis, Acute 10/08/2012 [facility] [employer]ICER, MARIANNA 466.0 Bronchitis, Acute 10/08/2012 [facility] [employer] OFFICER, MARIANNA 466.0 Bronchitis, Acute 12/05/2012 [facility] [employer], HEATHER 599.0 Uti 12/05/2012 [facility] [employer]ICER, HEATHER 599.0 Uti 12/05/2012 [facility] [employer]ICER, HEATHER 599.0 Uti 12/05/2012 [facility] [employer]ICER, HEATHER 599.0 Uti 12/05/2012 [facility] [employer] OFFICER, HEATHER 599.0 Uti 12/05/2012 [facility] [employer] OFFICER, HEATHER 599.0 Uti 12/05/2012 [facility] [employer] OFFICER, HEATHER 599.0 Uti 12/05/2012 [facility] [employer]ICER, MARIANNA 599.0 Uti 12/05/2012 [facility] [employer] POLICE OFFICER, MARIANNA 599.0 Uti 05/21/2013 [facility] [employer], HEATHER 285.9 ANEMIA, UNSPECIFIED 05/21/2013 [facility] [employer]IC[employer], HEATHER 285.9 ANEMIA, UNSPECIFIED 05/21/2013 [place] [employer] OFFICER, HEATHER 285.9 ANEMIA, UNSPECIFIED 05/21/2013 [place] [employer] POLICE OFFICER, HEATHER 285.9 ANEMIA, UNSPECIFIED 05/21/2013 [place] [employer] POLICE OFFICER, HEATHER 285.9 ANEMIA, UNSPECIFIED 05/21/2013 [place] [employer] POLICE OFFICER, HEATHER 285.9 ANEMIA, UNSPECIFIED 05/21/2013 [place] [employer] POLICE OFFICER, HEATHER 285.9 ANEMIA, UNSPECIFIED 05/21/2013 GOVIND SPECIAL POLICE OFFICER, MARIANNA 285.9 ANEMIA, UNSPECIFIED 08/07/2013 [place] [employer] POL[employer] OFFICER, HEATHER 682.5 CELLULITIS AND ABSCESS OF BUTTOCK 08/07/2013 [place] [employer] POLICE OFFICER, HEATHER 682.5 CELLULITIS AND ABSCESS OF BUTTOCK 08/07/2013 BR[place] [employer] POLICE OFFICER, HEATHER 682.5 CELLULITIS AND ABSCESS OF BUTTOCK 08/07/2013 BR[place] [employer] POLICE OFFICER, HEATHER 682.5 CELLULITIS AND ABSCESS OF BUTTOCK 08/07/2013 BR[place] [employer] POLICE OFFICER, HEATHER 682.5 CELLULITIS AND ABSCESS OF BUTTOCK 08/07/2013 BR[place] [employer] POLICE OFFICER, HEATHER 682.5 CELLULITIS AND ABSCESS OF BUTTOCK 08/07/2013 BR[place] [employer] POLICE OFFICER, HEATHER 682.5 CELLULITIS AND ABSCESS OF BUTTOCK 12/12/2013 [place] [employer] OFFICER, HEATHER 250.02 DIABETES MELLITUS WITHOUT MENTION OF COMPLICATION TYPE II OR UNSPECIFIED TYPE UNCONTROLLED 12/12/2013 BR[place] [employer] OFFICER, HEATHER 250.02 DIABETES MELLITUS WITHOUT MENTION OF COMPLICATION TYPE II OR UNSPECIFIED TYPE UNCONTROLLED 12/12/2013 [employer], HEATHER 250.02 DIABETES MELLITUS WITHOUT MENTION OF COMPLICATION TYPE II OR UNSPECIFIED TYPE UNCONTROLLED 12/12/2013 [employer], HEATHER 250.02 DIABETES MELLITUS WITHOUT MENTION OF [...] HERNANDEZ MD, Ot S66.911A [facility] AT S/HND 09/13/2018 DANIEL HERNANDEZ [...] PERSONAL HISTORY OF OTHER MALIGNANT NEOP 09/20/2018 KPAIL BLANCA NOEL T Ot Z90.710 ACQUIRED ABSENCE [...] PERSONAL HISTORY OF OTHER MALIGNANT NEOP 11/01/2018 IDANE DELCID MD, Ot Z87.442 PERSONAL HISTORY OF [...] Ot Z90.5 ACQUIRED ABSENCE OF KIDNEY 12/02/2018 DINAE DELCID MD, Ot Z90.710 ACQUIRED ABSENCE OF [...] MD, Ot F31.9 BIPOLAR DISORDER, UNSPECIFIED 12/14/2018 LUCAÍ FUENTES MD, Ot I10 ESSENTIAL (PRIMARY) HYPERTENSION [...] JAZIEL WONG DO Ot R30.0 DYSURIA 01/06/2019 JAZIEL WONG DO Ot Z77.22 CNTCT W AND EXPSR TO ENVIRON TOBACCO SMO 01/06/2019 JAZIEL WONG DO Ot Z85.528 PERSONAL HISTORY OF OTHER MALIGNANT NEOP 01/06/2019 JAZIEL WONG DO Ot Z87.442 PERSONAL HISTORY OF URINARY CALCULI 01/06/2019 JAZIEL WONG DO Ot Z90.5 ACQUIRED ABSENCE OF KIDNEY 01/06/2019 JAZIEL WONG DO Ot Z90.710 ACQUIRED ABSENCE OF BOTH CERVIX AND UTER 01/06/2019 JAZIEL WONG DO Ot Z98.51 TUBAL LIGATION STATUS 01/07/2019 TARIK GEORGE DO Ot E11.9 TYPE 2 DIABETES MELLITUS WITHOUT COMPLIC 01/07/2019 TARIK GEORGE DO, Ot I10 ESSENTIAL (PRIMARY) HYPERTENSION 01/07/2019 TARIK GEORGE DO, Ot J45.909 UNSPECIFIED ASTHMA, UNCOMPLICATED 01/07/2019 TARIK GEORGE DO Ot R10.2 PELVIC AND PERINEAL PAIN 01/07/2019 TARIK GEORGE DO Ot Z77.22 CNTCT W AND EXPSR TO ENVIRON TOBACCO SMO 01/07/2019 TARIK GEORGE DO Ot Z85.528 PERSONAL HISTORY OF OTHER MALIGNANT NEOP 01/07/2019 TARIK GEORGE DO Ot Z87.442 PERSONAL HISTORY OF URINARY CALCULI 01/07/2019 TARIK GEORGE DO Ot Z90.5 ACQUIRED ABSENCE OF KIDNEY 01/07/2019 TARIK GEORGE DO Ot Z90.710 ACQUIRED ABSENCE OF BOTH CERVIX AND UTER 01/07/2019 TARIK GEORGE DO Ot Z90.89 ACQUIRED ABSENCE OF OTHER ORGANS 01/07/2019 TARIK GEORGE DO Ot Z98.51 TUBAL LIGATION STATUS 01/08/2019 POLA WEBB DO Ot B37.41 CANDIDAL CYSTITIS AND URETHRITIS 01/08/2019 POLA WEBB DO Ot E11.9 TYPE 2 DIABETES MELLITUS WITHOUT COMPLIC 01/08/2019 POLA WEBB DO Ot I10 ESSENTIAL (PRIMARY) HYPERTENSION 01/08/2019 POLA WEBB DO Ot J45.909 UNSPECIFIED ASTHMA, UNCOMPLICATED 01/08/2019 POLA WEBB DO Ot R45.851 SUICIDAL IDEATIONS 01/08/2019 POLA WEBB DO Ot Z77.22 CNTCT W AND EXPSR TO ENVIRON TOBACCO SMO 01/08/2019 POLA WEBB DO Ot Z85.528 PERSONAL HISTORY OF OTHER MALIGNANT NEOP 01/08/2019 POLA WEBB DO Ot Z87.442 PERSONAL HISTORY OF URINARY CALCULI 01/08/2019 POLA WEBB DO Ot Z90.710 ACQUIRED ABSENCE OF BOTH CERVIX AND UTER 01/08/2019 POLA WEBB DO Ot Z90.89 ACQUIRED ABSENCE OF OTHER ORGANS 01/08/2019 POLA WEBB DO Ot Z98.51 TUBAL LIGATION STATUS Procedures Code [place] [address] GLUCOSE 05/08/2013 73306 HEMOGLOBIN A1C 05/08/2013 G0008 ADMIN FEE (MEDICARE) INFLUENZA 05/14/2013 69034 CBC - CBC WITH DIFF - LC 05/15/2013 53915 COMP - COMPREHENSIVE PANEL - LC 05/15/2013 78838 LIPID - LIPID PANEL - LC 05/15/2013 85078 TSH - TSH - LC 05/15/2013 36998 MALB - MICROALBUMIN - LC 05/15/2013 98889 GLUCOSE 08/11/2013 55509 HEMOGLOBIN A1C 08/11/2013 28950 CBC WITH DIFF 08/12/2013 23100 GLUCOSE 10/07/2013 4000F TOBACCO USE TXMNT COUNSELING 10/13/2013 08823 PULSE OXIMETRY 12/12/2013 A4614 PEAK FLOW 12/12/2013 55667 GLUCOSE 12/12/2013 30724 HEMOGLOBIN A1C 12/12/2013 Pulmonary Pulmonary Function Test 01/13/2014 A4614 PEAK FLOW 02/10/2014 96503 PULSE OXIMETRY 02/10/2014 70714 GLUCOSE 02/10/2014 Endocrino Endocrinology 02/13/2014 Pulmonary Pulmonology, Pulmonology 03/13/2014 20474 PULSE OXIMETRY 04/14/2014 A4614 PEAK FLOW 04/14/2014 [...] - 09/18/18 21:30 Bacterial urine culture NG NR Automated blood complete blood count (hemogram) panel [...] 7-25 CREATININE 0.90 mg/dL 0.50-1.05 eGFR NON-AFR. CITIZEN OF [place] 74 mL/min/1.73m2 > OR=60 eGFR 86 mL/min/1.73m2 [...] INFLUENZA A AND B ANTIGENS BY IA [facility] Bacterial blood culture - 11/06/18 19:08 Bacterial blood culture [facility] Capillary blood glucose measurement by [...] calculation of estimated glomerular filtration rate > [facility] Serum or plasma glucose measurement (mass/volume) 69 [...] 12:01 CULTURE, URINE, ROUTINE SEE NOTE NRG CULTURE, URINE - 12/30/18 17:22 CULTURE, URINE, ROUTINE NRG STOOL (WBC) - 12/30/18 17:22 FECAL LEUKOCYTE STAIN SEE NOTE NRG CULTURE, STOOL - 12/30/18 17:22 SALMONELLA AND SHIGELLA, CULTURE SEE NOTE NRG STOOL (C-DIFF) - 12/30/18 17:22 CLOSTRIDIUM DIFFICILE TOXIN/GDH W/REFL TO PCR SEE NOTE NRG CBC - 12/30/18 17:24 WHITE BLOOD CELL COUNT TNP Thousand/uL NRG CULTURE, URINE - 12/30/18 17:24 CULTURE, URINE, ROUTINE SEE NOTE NRG STOOL (WBC) - 12/30/18 17:24 FECAL LEUKOCYTE STAIN NRG CULTURE, STOOL - 12/30/18 17:24 SALMONELLA AND SHIGELLA, CULTURE NRG Complete urinalysis with reflex to culture [...] culture - 01/04/19 19:30 Bacterial urine culture [id number] NRG COLONY COUNT 30,000 CFU/ML NRG Complete [...] culture - 01/04/19 20:35 Bacterial urine culture [id number] NRG COLONY COUNT . NRG FTX;REPORTABLE <10,000 CFU/ML NRG Complete urinalysis with reflex to culture - 01/06/19 22:11 Urine color determination YELLOW NRG Urine clarity determination CLEAR NRG Urine pH measurement by test strip 6.0 5-9 Specific gravity of urine by test strip < 1.016-1.022 Urine protein assay by test strip, [...] erythrocyte count by microscopy (number/high power field) NONE NRG Automated urine sediment leukocyte count by microscopy (number/high power field) [HPF] NRG Bacteria detection in urine sediment by light microscopy TRACE NRG Squamous epithelial cells detection in urine sediment by light microscopy 2-5 NRG Crystals detection in urine sediment by light microscopy NONE NRG Casts detection in urine sediment by light microscopy NONE NRG Mucus detection in urine sediment by light microscopy NEGATIVE NRG Complete urinalysis with reflex to culture YES NRG Urine drug screening test - 01/06/19 22:11 Urine phencyclidine detection by screening method NEGATIVE NEGATIVE Urine benzodiazepines detection by screening method NEGATIVE NEGATIVE Urine cocaine detection NEGATIVE NEGATIVE Urine amphetamines detection by screening method NEGATIVE NEGATIVE Urine methamphetamine detection by screening method NEGATIVE NEGATIVE Urine cannabinoids detection by screening method NEGATIVE NEGATIVE Urine opiates detection by screening method NEGATIVE NEGATIVE Urine barbiturates detection NEGATIVE NEGATIVE Screening urine tricyclic antidepressants detection NEGATIVE NEGATIVE Urine methadone detection by screening method NEGATIVE NEGATIVE Urine oxycodone detection NEGATIVE NEGATIVE Urine propoxyphene detection NEGATIVE NEGATIVE Bacterial urine culture - 01/06/19 22:11 Bacterial urine culture NG NRG Complete blood count (CBC) with automated white blood cell (WBC) differential - 01/06/19 22:23 Blood leukocytes automated count (number/volume) 8.0 10*3/uL 4.3-11.0 Blood erythrocytes automated count (number/volume) 3.71 10*6/uL 4.35-5.85 Venous blood hemoglobin measurement (mass/volume) 10.4 g/dL 11.5-16.0 Blood hematocrit (volume fraction) 34 % 35-52 Automated erythrocyte mean corpuscular volume 92 [foz_us] 80-99 Automated erythrocyte mean corpuscular hemoglobin (mass per erythrocyte) 28 pg 25-34 Automated erythrocyte mean corpuscular hemoglobin concentration measurement (mass/volume) 30 g/dL 32-36 Automated erythrocyte distribution width ratio 18.3 % 10.0- 14.5 Automated blood platelet count (count/volume) 239 10*3/uL 130-400 Automated blood platelet mean volume measurement 10.2 [foz_us] 7.4-10.4 Automated blood neutrophils/100 leukocytes 57 % 42-75 Automated blood lymphocytes/100 leukocytes 30 % 12-44 Blood monocytes/100 leukocytes 6 % 0-12 Automated blood eosinophils/100 leukocytes 6 % 0-10 Automated blood basophils/100 leukocytes 1 % 0-10 Blood neutrophils automated count (number/volume) 4.5 10*3 1.8-7.8 Blood lymphocytes automated count (number/volume) 2.4 10*3 1.0-4.0 Blood monocytes automated count (number/volume) 0.5 10*3 0.0- 1.0 Automated eosinophil count 0.5 10*3/uL 0.0-0.3 Automated blood basophil count (count/volume) 0.1 10*3/uL 0.0-0.1 Comprehensive metabolic panel - 01/06/19 22:23 Serum or plasma sodium measurement (moles/volume) 138 mmol/L 135-145 Serum or plasma potassium measurement (moles/volume) 3.9 mmol/L 3.6-5.0 Serum or plasma chloride measurement (moles/volume) 99 mmol/L 98-107 Carbon dioxide 26 mmol/L 21-32 Serum or plasma anion gap determination (moles/volume) 13 mmol/L 5-14 Serum or plasma urea nitrogen measurement (mass/volume) 13 mg/dL 7-18 Serum or plasma creatinine measurement (mass/volume) 0.99 mg/dL 0.60-1.30 Serum or plasma urea nitrogen/creatinine mass ratio 13 NRG Serum or plasma creatinine measurement with calculation of estimated glomerular filtration rate 59 NRG Serum or plasma glucose measurement (mass/volume) 168 mg/dL 70-105 Serum or plasma calcium measurement (mass/volume) 9.4 mg/dL 8.5-10.1 Serum or plasma total bilirubin measurement (mass/volume) 0.2 mg/dL 0.1-1.0 Serum or plasma alkaline phosphatase measurement (enzymatic activity/volume) 112 U/L 40-136 Serum or plasma aspartate aminotransferase measurement (enzymatic activity/volume) 10 U/L 5-34 Serum or plasma alanine aminotransferase measurement (enzymatic activity/volume) 12 U/L 0-55 Serum or plasma protein measurement (mass/volume) 7.4 g/dL 6.4-8.2 Serum or plasma albumin measurement (mass/volume) 3.9 g/dL 3.2-4.5 CALCIUM CORRECTED 9.5 mg/dL 8.5-10.1 Serum or plasma salicylates measurement (mass/volume) - 01/06/19 22:23 Serum or plasma salicylates measurement (mass/volume) < mg/dL 5.0-20.0 Serum or plasma acetaminophen measurement (mass/volume) - 01/06/19 22:23 Serum or plasma acetaminophen measurement (mass/volume) < ug/mL 10-30 Serum or plasma ethanol measurement (mass/volume) - 01/06/19 22:23 Serum or plasma ethanol measurement (mass/volume) < mg/dL <10 Encounters ACCT No. Visit Date/Time Discharge Status Pt. Type Provider Facility Loc./Unit Complaint [id number] 10/30/2018 17:22:00 Document Registration [id number] 10/30/2018 17:22:00 Document Registration [id number] 01/02/2019 02:27:02 ACT Document Registration [id number] 01/01/2019 17:52:01 ACT Unknown Halle Sahni MD [id number] 12/24/2018 10:40:00 12/24/2018 23:59:59 DIS Outpatient LINDA SAHNI [facility] RAD [id number] 08/26/2018 07:22:56 08/26/2018 23:59:59 DIS Outpatient SORIA, DANAY V [facility] LAB [id number] 05/30/2018 08:41:17 05/30/2018 23:59:59 DIS Outpatient LINDA SAHNI [facility] RAD [id number] 04/25/2018 12:24:37 04/25/2018 23:59:59 CLS Preadmit LINDA SAHNI [facility] Surgery ops [id number] 11/13/2018 14:34:59 Document Registration [id number] 08/06/2018 13:35:03 Document Registration [id number] 07/05/2018 09:35:35 ACT V JAKOB AMADOU Joan [facility] MS [id number] 06/18/2018 06:13:13 Inpatient LINDA SAHNI [facility] MS ops [id number] 01/06/2019 21:51:00 01/07/2019 01:32:00 DIS Outpatient POLA WEBB DO [facility] FS MENTAL HEALTH EVAL [id number] 01/05/2019 19:25:00 01/05/2019 20:17:00 DIS Outpatient TARIK GEORGE DO [facility] FS RIGHT SIDE PAIN [id number] 01/04/2019 19:17:00 01/04/2019 21:13:00 DIS Outpatient JAZIEL WONG DO [facility] FS RIGHT SIDE PAIN [id number] 01/02/2019 04:59:00 01/02/2019 05:55:00 DIS Emergency JAZIEL WONG DO [facility] FS RIGHT SIDE PAIN [id number] 12/21/2018 17:59:00 12/21/2018 19:50:00 DIS Emergency DIANE DELCID MD [facility] FS SOB,VAGINAL PAIN [id number] 12/14/2018 14:21:00 12/14/2018 16:45:00 DIS Emergency GINA BATEMAN, LUCÍA Serrato [facility] FS ABD PAIN,VAGINAL PAIN FROM CATHETER [id number] 12/12/2018 13:47:00 12/12/2018 23:59:59 CLS Outpatient JERI BATEMAN, MANASA Funes [facility] RAD FS R10.84 GEN ABD PAIN [id number] 11/29/2018 08:34:00 11/29/2018 16:55:00 DIS Emergency DIANE DELCID MD [facility] FS URINARY RETENTION [id number] 11/14/2018 21:43:00 11/14/2018 23:23:00 DIS Emergency DANIEL HERNANDEZ MD [facility] FS BLOOD SUGAR ISSUES [id number] 11/06/2018 17:40:00 11/07/2018 01:30:00 DIS Emergency JUSTINAQUE JAME BLANCA [facility] FS SOB,CHEST PAIN [id number] 10/30/2018 20:30:00 10/31/2018 00:33:00 DIS Emergency DIANE DELCID MD [facility] FS SOB, HIGH BLOOD SUGAR, ABD SORE [id number] 10/16/2018 22:53:00 10/17/2018 00:25:00 DIS Emergency DIANE DELCID MD [facility] FS CHEST PAINS [id number] 10/13/2018 17:02:00 10/13/2018 20:45:00 DIS Emergency DANIEL HERNANDEZ MD [facility] FS CHEST PAIN,SOB [id number] 09/18/2018 20:56:00 09/19/2018 07:30:00 DIS Emergency NOEL DICK DO [facility] FS HIGH BLOOD SUGAR, SOB [id number] 09/12/2018 14:20:00 09/12/2018 15:56:00 DIS Emergency DANIEL HERNANDEZ MD [facility] FS FALL; RT HIP/MI WRIST INJ [id number] 01/08/2019 17:11:00 ACT Emergency POLA WEBB DO [facility] FS CHEST PAIN, SOB [id number] 01/03/2019 10:15:00 01/03/2019 23:59:59 CLS Outpatient MANASA WILCOX [facility] [id number] 12/30/2018 16:30:00 Document Registration [id number] 12/30/2018 14:39:00 Document Registration [id number] 12/18/2018 12:00:00 Document Registration [id number] 10/07/2018 13:15:00 Document Registration [id number] 09/25/2018 09:45:00 Document Registration [id number] 04/14/2014 08:59:00 04/14/2014 11:05:00 DIS Outpatient HEATHER IRVIN APRN [id number] 02/10/2014 09:57:00 02/10/2014 23:59:59 CLS Outpatient HEATHER IRVIN APRN [id number] 02/10/2014 09:57:00 02/10/2014 23:59:59 CLS Outpatient HEATHER IRVIN APRN [id number] 12/12/2013 10:38:00 12/12/2013 23:59:59 CLS Outpatient HEATHER IRVIN APRN [id number] 10/07/2013 14:37:00 10/13/2013 20:05:00 DIS Outpatient HEATHER IRVIN APRN [id number] 10/07/2013 14:37:00 10/07/2013 23:59:59 CLS Outpatient HEATHER IRVIN APRN [id number] 08/11/2013 10:11:00 08/11/2013 13:49:00 DIS Outpatient HEATHER IRVIN APRN [id number] 05/08/2013 09:56:00 05/08/2013 23:59:59 CLS Outpatient GOVIND MARIANNA WRIGHT [id number] 01/08/2013 08:25:00 01/08/2013 23:59:59 CLS Outpatient MARIANNA FAUST APRN [id number] 10/15/2014 15:34:45 10/15/2014 23:59:00 DIS Outpatient SONY CAMPO A [facility] [id number] 08/12/2014 12:31:00 08/12/2014 14:34:00 DIS Emergency [facility] FED [id number] 06/21/2014 16:47:00 06/21/2014 17:52:00 DIS Emergency [facility] FED [id number] 09/02/2014 00:00:00 Document Registration
--- NOTE | 2019-01-08 17:42 | ED General ---
General Chief Complaint: - Urinary Stated Complaint: CHEST PAIN, SOB History of Present Illness Date Seen by Provider: Jan 08, 2019 Time Seen by Provider: 17:38 Initial Comments Patient presents emergency department for evaluation of right rib/right upper quadrants/right flank pain that has been an ongoing issue for months to years. She has been seen in this emergency department quite frequently for urinary tract infections and this pain and has been worked up and thought to have had urinary tract infection versus candidal cystitis and has been on antibiotics and antifungals. She says she was supposed to see a physician today regarding his issues but could not make the appointment as she was trying to get money from her mother and cannot make the appointment. Patient says her home medications which is Percocet is not helping her pain at all. She is in no obvious distress with normal vital signs. (POLA WEBB DO) Allergies and Home Medications Allergies Coded Allergies: No Known Drug Allergies (Unverified , 10/16/18) Home Medications Amoxicillin/Potassium Clav 1 Each Tablet, 1 EACH PO BID Prescribed by: JAZIEL WONG on 01/02/19544 Cephalexin 250 Mg Capsule, 250 MG PO BID Prescribed by: LUCÍA FUENTES on 12/14/18 165 Fluconazole 100 Mg Tablet, 100 MG PO Q72 Prescribed by: JAZIEL WONG on 01/02/19544 Fluconazole 200 Mg Tablet, 200 MG PO DAILY Prescribed by: POLA WEBB on 01/06/19 2248 Hydrocodone/Acetaminophen 1 Each Tablet, 1 TAB PO Q4-6HR Prescribed by: JAZIEL WONG on 01/04/19 2108 Hyoscyamine Sulfate 0.125 Mg Tab.subl, 0.125 MG SL Q4H PRN for bladder spasm/pain Prescribed by: DIANE DELCID on 12/21/18 193 Levofloxacin 750 Mg Tablet, 750 MG PO DAILY Prescribed by: LUCÍA FUENTES on 12/14/18 1636 Oxycodone HCl/Acetaminophen 1 Each Tablet, 1 TAB PO Q4H PRN for PAIN-MODERATE Prescribed by: LUCÍA FUENTES on 12/14/18 1634 Oxycodone HCl/Acetaminophen 1 Each Tablet, 1 EACH PO Q4H PRN for PAIN-SEVERE Prescribed by: DIANE DELCID on 12/21/18 193 Phenazopyridine HCl 200 Mg Tablet, 1 TAB PO TID Prescribed by: JAZIEL WONG on 01/02/19 0545 Patient Home Medication List Home Medication List Reviewed: Yes (POLA WEBB DO) Review of Systems Review of Systems Constitutional: no symptoms reported EENTM: no symptoms reported Respiratory: no symptoms reported Cardiovascular: no symptoms reported Gastrointestinal: abdominal pain Genitourinary: dysuria Musculoskeletal: back pain Skin: no symptoms reported Psychiatric/Neurological: No Symptoms Reported (POLA WEBB DO) All Other Systems Reviewed Negative Unless Noted: Yes (POLA WEBB DO) Past Etxckif-Iulggl-Svhgio Hx Patient Social History Drug of Choice: marijuana Type Used: Cigarettes 2nd Hand Smoke Exposure: Yes Recent Foreign Travel: No Contact w/Someone Who Travel: No Recent Hopitalizations: No (POLA WEBB DO) Seasonal Allergies Seasonal Allergies: No (POLA WEBB DO) Past Medical History Surgeries: Yes Abdominal, Hysterectomy, Nephrectomy, Tonsillectomy, Tubal Ligation Respiratory: Yes Asthma Currently Using CPAP: No Currently Using BIPAP: No Cardiac: No Hypertension 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 has multiple lesions on her abd and under the folds.) Blood Disorders: No Adverse Reaction/Blood Tranf: No (POLA WEBB DO) Physical Exam Vital Signs Vital Signs - First Documented 01/08/19 17:24 Temp 98.5 Pulse 95 Resp 18 B/P (MAP) 146/82 (103) (TARIK BRAXTON DO) Vital Signs Capillary Refill : (POLA WEBB DO) Height, Weight, BMI Height: 5'7.00" Weight: 239lbs. 0oz. 108.358301lx; BMI Method:Stated General Appearance: No Apparent Distress, Chronically ill HEENT: PERRL/EOMI Neck: Supple Respiratory: Lungs Clear, No Respiratory Distress Cardiovascular: Regular Rate, Rhythm, No Edema Gastrointestinal: Non Tender, Soft Back: Normal Inspection Extremity: Normal Capillary Refill Neurologic/Psychiatric: Alert, Oriented x3 Skin: Normal Color, Warm/Dry (JON,POLA M DO) Progress/Results/Core Measures Suspected Sepsis SIRS Temperature: Pulse: Respiratory Rate: Blood Pressure / Mean: (POLA WEBB DO) Results/Orders Lab Results Laboratory Tests Test 01/08/19 17:40 01/08/19 18:00 Range/Units Urine Color YELLOW Urine Clarity CLEAR Urine pH 5.5 5-9 Urine Specific [place] 1.020 1.016-1.022 Urine Protein NEGATIVE NEGATIVE Urine Glucose (UA) NEGATIVE NEGATIVE Urine Ketones NEGATIVE NEGATIVE Urine Nitrite NEGATIVE NEGATIVE Urine Bilirubin NEGATIVE NEGATIVE Urine Urobilinogen 0.2 NORMAL MG/DL Urine Leukocyte Esterase NEGATIVE NEGATIVE Urine RBC (Auto) NEGATIVE NEGATIVE Urine RBC NONE /HPF Urine WBC 25-50 H /HPF Urine Squamous Epithelial Cells 5-10 /HPF Urine Crystals NONE /LPF Urine Bacteria TRACE /HPF Urine Casts NONE /LPF Urine Mucus NEGATIVE /LPF Urine Culture Indicated YES White Blood Count 8.3 4.3-11.0 10^3/uL Red Blood Count 3.96 L 4.35-5.85 10^6/uL Hemoglobin 11.2 L 11.5-16.0 G/DL Hematocrit 37 35-52 % Mean Corpuscular Volume 92 80-99 FL Mean Corpuscular Hemoglobin 28 25-34 PG Mean Corpuscular Hemoglobin Concent 31 L 32-36 G/DL Red Cell Distribution Width 18.0 H 10.0-14.5 % Platelet Count 241 130-400 10^3/uL Mean Platelet Volume 10.0 7.4-10.4 FL Neutrophils (%) (Auto) 60 42-75 % Lymphocytes (%) (Auto) 28 12-44 % Monocytes (%) (Auto) 7 0-12 % Eosinophils (%) (Auto) 3 0-10 % Basophils (%) (Auto) 1 0-10 % Neutrophils # (Auto) 5.0 1.8-7.8 X 10^3 Lymphocytes # (Auto) 2.4 1.0-4.0 X 10^3 Monocytes # (Auto) 0.6 0.0-1.0 X 10^3 Eosinophils # (Auto) 0.2 0.0-0.3 10^3/uL Basophils # (Auto) 0.1 0.0-0.1 10^3/uL Sodium Level 139 135-145 MMOL/L Potassium Level 3.7 3.6-5.0 MMOL/L Chloride Level 99 98-107 MMOL/L Carbon Dioxide Level 25 21-32 MMOL/L Anion Gap 15 H 5-14 MMOL/L Blood Urea Nitrogen 7 7-18 MG/DL Creatinine 0.95 0.60-1.30 MG/DL Estimat Glomerular Filtration Rate > 60 BUN/Creatinine Ratio 7 Glucose Level 110 H 70-105 MG/DL Calcium Level 9.4 8.5-10.1 MG/DL Corrected Calcium 9.2 8.5-10.1 MG/DL Total Bilirubin 0.3 0.1-1.0 MG/DL Aspartate Amino Transf (AST/SGOT) 13 5-34 U/L Alanine Aminotransferase (ALT/SGPT) 14 0-55 U/L Alkaline Phosphatase 113 40-136 U/L Troponin T 6 <=10 NG/L Total Protein 7.9 6.4-8.2 GM/DL Albumin 4.2 3.2-4.5 GM/DL Lipase 46 8-78 U/L (TARIK BRAXTON DO) Medications Given in ED Current Medications Medications Dose Ordered Sig/Yoselyn Route Start Time Stop Time Status Last Admin Dose Admin Iohexol 100 ml ONCE ONCE IV 01/08/19 19:00 01/08/19 19:01 DC 01/08/19 18:51 100 ML Ketorolac Tromethamine 15 mg ONCE ONCE IVP 01/08/19 17:45 01/08/19 17:59 DC 01/08/19 18:03 15 MG Sodium Chloride 10 ml NEEDED PRN IV 01/08/19 19:00 01/08/19 18:51 10 ML Sodium Chloride 100 ml ONCE ONCE IV 01/08/19 19:00 01/08/19 19:01 DC 01/08/19 18:51 60 ML (TARIK BRAXTON DO) Vital Signs/I&O 01/08/19 17:24 Temp 98.5 Pulse 95 Resp 18 B/P (MAP) 146/82 (103) (TARIK BRAXTON DO) Vital Signs/I&O Capillary Refill : (POLA WEBB DO) Progress Note : Progress Note Patient has been worked up with multiple CTs and I told her than she is at high risk for cancer given how many CTs she has had. She is wanting further workup and imaging done and I told her it this would not likely reveal any answers and that the emergency department has not found a cause for her pain and was likely not to but she insisted on having further imaging done. I told her that she is placing herself at risk for cancer and another scan we'll place her at even higher risk and she accepted the risks of cancer and by doing further imaging. Again I told her if the workup reveals nothing that she needs to seek specialty consultation with urology gastrology and pain management as the emergency department is not finding a cause for her pain at this point. I will go ahead and do a urinalysis labs CT chest abdomen pelvis treat her with Toradol and reassess. Transfer of care to Dr. Braxton at 1600, awaiting results. (POLA WEBB DO) Departure Impression Primary Impression: Chronic right abdomen/flank pain of UDE Disposition: HOME, SELF-CARE Condition: Stable Departure-Patient Inst. Decision time for Depature: 20:10 (TARIK BRAXTON DO) Referrals: MANASA WILCOX MD (PCP) Primary Care Physician PRIYA LIRIANO (Family) Primary Care Physician Patient Instructions: Flank Pain (DC) POLA WEBB DO Jan 08, 2019 17:42 TARIK BRAXTON DO Jan 08, 2019 20:13
[2019-01-08] MEDS ORDERED: KETOROLAC 15 MG/ML VIAL IVP ONE (17:45)
[2019-01-08] MEDS ORDERED: KETOROLAC 15 MG/ML VIAL ONE (17:54)
[2019-01-08 18:00] LABS: CLARITY,URINE CLEAR; COLOR,URINE YELLOW; GLUCOSE, URINE (UA) NEGATIVE (NEGATIVE); KETONES,URINE NEGATIVE (NEGATIVE); PH,URINE 5.5 (5-9); PROTEIN,URINE NEGATIVE (NEGATIVE)
[2019-01-08 18:01] LABS: BACTERIA,URINE TRACE /HPF; BILIRUBIN,URINE NEGATIVE (NEGATIVE); LEUKOCYTE ESTERASE ,URINE NEGATIVE (NEGATIVE); NITRITE,URINE NEGATIVE (NEGATIVE); UROBILINOGEN,URINE 0.2 MG/DL (NORMAL); WBC,URINE 25-50 /HPF
[2019-01-08 18:15] LABS: BASOPHILS # (AUTO) 0.1 10^3/uL (0.0-0.1); BASOPHILS % (AUTO) 1 % (0-10); EOSINOPHILS # (AUTO) 0.2 10^3/uL (0.0-0.3); EOSINOPHILS % (AUTO) 3 % (0-10); HEMATOCRIT 37 % (35-52); HEMOGLOBIN 11.2 G/DL (11.5-16.0); LYMPHOCYTES # (AUTO) 2.4 X 10^3 (1.0-4.0); LYMPHOCYTES % (AUTO) 28 % (12-44); MEAN CORPUSCULAR HEMOGLOBIN 28 PG (25-34); MEAN CORPUSCULAR HGB CONC 31 G/DL (32-36); MEAN CORPUSCULAR VOLUME 92 FL (80-99); MONOCYTES # (AUTO) 0.6 X 10^3 (0.0-1.0); MONOCYTES % (AUTO) 7 % (0-12); NEUTROPHILS % (AUTO) 60 % (42-75); PLATELET COUNT 241 10^3/uL (130-400); WHITE BLOOD COUNT 8.3 10^3/uL (4.3-11.0)
[2019-01-08 18:37] LABS: ALANINE AMINOTRANSFERASE 14 U/L (0-55); ALBUMIN 4.2 GM/DL (3.2-4.5); ALKALINE PHOSPHATASE 113 U/L (40-136); BILIRUBIN,TOTAL 0.3 MG/DL (0.1-1.0); BUN/CREATININE RATIO 7; CALCIUM 9.4 MG/DL (8.5-10.1); CARBON DIOXIDE 25 MMOL/L (21-32); CHLORIDE 99 MMOL/L (98-107); CREATININE SERUM 0.95 MG/DL (0.60-1.30); GFR ESTIMATED > 60; GLUCOSE 110 MG/DL (70-105); LIPASE 46 U/L (8-78); POTASSIUM 3.7 MMOL/L (3.6-5.0); SODIUM 139 MMOL/L (135-145); TOTAL PROTEIN 7.9 GM/DL (6.4-8.2)
[2019-01-08] MEDS ORDERED: CATHETER FLUSH 10 ML SYR IV PRN (19:00)
[2019-01-08] MEDS ORDERED: HOLD METFORMIN - RECEIVED CONTRAST 20 ML VIAL IV SCH (19:00)
[2019-01-08] MEDS ORDERED: NS 100 ML (IVPB) BAG IV ONE (19:00)
[2019-01-08] MEDS ORDERED: IOHEXOL 350 MG/ML 100 ML (OMNIPAQUE 350) VIAL IV ONE (19:00)
--- NOTE | 2019-01-08 20:04 | Diagnostic Imaging Report ---
PATIENT HISTORY: Right flank pain, right rib pain, right upper quadrant pain. TECHNIQUE: Axial CT of the chest was performed following intravenous administration of contrast timed for evaluation of the arterial structures. Sagittal, coronal and MIP reformats were performed. Axial CT of the abdomen and pelvis was performed following intravenous administration of contrast. COMPARISON: 10/13/2018 and priors. FINDINGS: CTA chest: The heart is normal in size. The aorta demonstrates motion artifact, but no aneurysm or dissection is seen. The left-sided Port-A-Cath is in the SVC. No mediastinal adenopathy is seen. There is no pericardial effusion. No axillary adenopathy is seen. There is no pleural effusion or pneumothorax. There is minimal atelectasis at the dependent right lung. No central endobronchial lesions are seen. No acute osseous abnormality is seen. CT abdomen/pelvis: The liver appears normal. The spleen is normal. The pancreas appears normal. The adrenal glands appear normal. The right kidney has been resected. The left kidney appears normal. Cholecystectomy clips are noted. No obstruction is seen. There is a small amount of free fluid in the pelvis. No free air is seen. The urinary bladder is decompressed. There is a fluid collection in the subcutaneous fat overlying the right abdominus rectus musculature, measuring 9 x 1 cm in size on axial imaging. This appears decreased in size compared to 09/18/2018. The large and small bowel is mostly decompressed. The appendix appears normal. Cholecystectomy clips are noted posterior to the right liver tip. IMPRESSION: 1. No acute aortic abnormality seen in the chest. There is minimal atelectasis in the dependent right lung. 2. Postsurgical changes from prior right nephrectomy. 3. Superficial fluid collection in the right anterior abdomen soft tissues appears decreased in size compared to September 2018. 4. Decompressed bowel with no obstruction seen. Minimal free fluid in the pelvis. Dictated by: Dictated on workstation # [id number]
[2019-01-08 20:42] VITALS: BP 125/72
== END 2019-01-08 20:40 | disposition home or self-care (01) ==
LOC: EDUNIT# 17:10 → ER FS 17:11
DX: R10.11 Right upper quadrant pain (principal); G89.29 Other chronic pain; I10 Essential (primary) hypertension; J45.909 Unspecified asthma, uncomplicated; E11.9 Type 2 diabetes mellitus without complications; Z85.528 Personal history of other malignant neoplasm of kidney; Z87.442 Personal history of urinary calculi; Z90.710 Acquired absence of both cervix and uterus; Z90.89 Acquired absence of other organs; Z98.51 Tubal ligation status; Z77.22 Contact with and (suspected) exposure to environmental tobacco smoke (acute) (chronic); Z90.5 Acquired absence of kidney
CPT/HCPCS: 36415; 71275; 74177; 80053; 81000; 83690; 84484; 85025; 87088; 93005; 96374

== ENCOUNTER 2019-01-10 19:57 | Emergency (ER) | payer MEDICARE, MEDICAID ==
[~2019-01-10] VITALS: Ht 170.2 cm; Wt 103.4 kg
--- OUTSIDE RECORDS SUMMARY | 2019-01-10 20:02 | XMS REPORT | Clinical Summary ---
Author Author Admin, E Organization [facility] Address Unknown Phone Unavailable Allergies, Adverse Reactions, [...] MG ORAL TABLET 1 tab BID SULFAMETHOXAZOLE-TRIMETHOPRIM 96211848650 No Longer Active Hardeep Barker MD Active LEVEMIR FLEXTOUCH 100 UNIT/ML SUBCUTANEOUS SOLUTION PEN-INJECTOR 100 units twice daily INSULIN DETEMIR 72411824428 Active Hardeep Barker MD Active NOVOLOG PENFILL 100 UNIT/ML SUBCUTANEOUS SOLUTION CARTRIDGE 50 units twice daily INSULIN ASPART 54291151458 Active Hardeep Barker MD Active GEODON 80 MG ORAL CAPSULE 2 cap at Bedtime ZIPRASIDONE HCL 82393039708 Active Hardeep Barker MD Active MECLIZINE HCL 12.5 MG ORAL TABLET MECLIZINE HCL 89586800101 No Longer Active Hardeep Barker MD Active LEVAQUIN 500 MG ORAL TABLET 1 tab twice daily LEVOFLOXACIN 59081187831 No Longer Active Halle Sahni MD Active DIFLUCAN 150 MG ORAL TABLET FLUCONAZOLE 40032658159 No Longer Active Halle Sahni MD Active LIPITOR 10 MG ORAL TABLET 1 tab by mouth daily ATORVASTATIN CALCIUM 47195344910 Active Halle Sahni MD Active BYSTOLIC 5 MG ORAL TABLET 1 tab by mouth daily NEBIVOLOL HCL 08175155506 Active Halle Sahni MD Active TRADJENTA 5 MG ORAL TABLET 1 tab by mouth daily LINAGLIPTIN 70511695541 Active Halle Sahni MD Active LISINOPRIL 5 MG ORAL TABLET 1 po qd LISINOPRIL 03703786505 Active Halle Sahni MD Active LEXAPRO 10 MG ORAL TABLET 1 tablet by mouth daily ESCITALOPRAM OXALATE 92126777034 Active Halle Sahni MD Active METFORMIN HCL 500 MG ORAL TABLET 1 tablet by mouth three times daily METFORMIN HCL 20166405197 Active Halle Sahni MD Active DIFLUCAN 150 MG ORAL TABLET DIFLUCAN 150 MG ORAL TABLET 707680 FLUCONAZOLE Inactive LEVAQUIN 500 MG ORAL TABLET 1 tab twice daily LEVAQUIN 500 MG ORAL TABLET 852847 LEVOFLOXACIN Inactive MECLIZINE HCL 12.5 MG ORAL TABLET MECLIZINE HCL 12.5 MG ORAL TABLET 849809 MECLIZINE HCL Inactive BACTRIM DS 800-160 MG ORAL TABLET 1 tab BID BACTRIM DS 800-160 MG ORAL TABLET 722168 SULFAMETHOXAZOLE-TRIMETHOPRIM Inactive Advance Directives Directive Description Start [...] negative Encounters Code Encounter Date Provider Facility CPT-40908 Level 3 Est. Patient 12:27:57 CDT Halle Sahni MD [facility] CPT-98965 Level 3 Est. Patient 15:50:26 CDT Halle Sahni MD [facility] CPT-37249 Level 3 Est. Patient 11:10:51 LEAD DATABASE DEVELOPER Hardeep Barker MD [facility] CPT-75348 Level 4 New Patient 16:02:27 LEAD DATABASE DEVELOPER Hardeep Barker MD [facility] CPT-77694 Level 4 Est. Patient 13:31:38 LEAD DATABASE DEVELOPER Halle Sahni MD [facility] CPT-27533 Level 3 Est. Patient 14:10:08 LEAD DATABASE DEVELOPER Halle Sahni MD [facility] [place] CPT-85452 Level 3 Est. Patient 10:01:09 CDT Halle Sahni MD [facility] CPT-08641 Level 4 New Patient 16:33:13 CDT Halle Sahni MD [facility] Procedures Code Procedure Name Date Entry Date Standard Description CPT-61698 Cystoscopy 15:50:27 CDT CPT-59610 Postop F/U Visit 15:34:52 LEAD DATABASE DEVELOPER CPT-21674 I/D hematoma seroma fld gauri 11:10:51 LEAD DATABASE DEVELOPER CPT-06840 Postop F/U Visit 15:20:53 LEAD DATABASE DEVELOPER CPT-49423 Postop F/U Visit 13:46:08 LEAD DATABASE DEVELOPER
--- OUTSIDE RECORDS SUMMARY | 2019-01-10 20:02 | XMS REPORT | Clinical Summary ---
Author Author Admin, CARTERE Organization [facility] Address Unknown Phone Unavailable Allergies, [...] elsewhere classified, initial encounter 998.13 Resolved Hardeep Barekr MD Seroma complicating a procedure Wound infection [...] Hernia, Ventral 553.20 Inactive Hardeep Barker MD Other microscopic hematuria ICD-599.70 Inactive Hardeep Barker MD Morbid obesity due to excess calories ICD-278.00 Inactive Nay Escamilla Other specified complications of surgical and medical care, not elsewhere classified, initial encounter ICD-998.13 Inactive Hardeep Barker MD Medication List Medication Instructions Start Date Stop Date Generic Name NDC Status Provider Patient Instruction BACTRIM DS 800-160 MG ORAL TABLET 1 tab BID SULFAMETHOXAZOLE-TRIMETHOPRIM 80838961268 No Longer Active Hardeep Barker MD Active LEVEMIR FLEXTOUCH 100 UNIT/ML SUBCUTANEOUS SOLUTION PEN-INJECTOR 100 units twice daily INSULIN DETEMIR 22121016097 Active Hardeep Barker MD Active NOVOLOG PENFILL 100 UNIT/ML SUBCUTANEOUS SOLUTION CARTRIDGE 50 units twice daily INSULIN ASPART 99965089515 Active Hardeep Barker MD Active GEODON 80 MG ORAL CAPSULE 2 cap at Bedtime ZIPRASIDONE HCL 36411236923 Active Hardeep Barker MD Active MECLIZINE HCL 12.5 MG ORAL TABLET MECLIZINE HCL 49242505824 No Longer Active Hardeep Barker MD Active LEVAQUIN 500 MG ORAL TABLET 1 tab twice daily LEVOFLOXACIN 87472624559 No Longer Active Halle Sahni MD Active DIFLUCAN 150 MG ORAL TABLET FLUCONAZOLE 95739032818 No Longer Active Halle Sahni MD Active LIPITOR 10 MG ORAL TABLET 1 tab by mouth daily ATORVASTATIN CALCIUM 39848368066 Active Halle Sahni MD Active BYSTOLIC 5 MG ORAL TABLET 1 tab by mouth daily NEBIVOLOL HCL 05341996423 Active Halle Sahni MD Active TRADJENTA 5 MG ORAL TABLET 1 tab by mouth daily LINAGLIPTIN 40395643118 Active Halle Sahni MD Active LISINOPRIL 5 MG ORAL TABLET 1 po qd LISINOPRIL 28879582839 Active Halle Sahni MD Active LEXAPRO 10 MG ORAL TABLET 1 tablet by mouth daily ESCITALOPRAM OXALATE 79814385693 Active Halle Sahni MD Active METFORMIN HCL 500 MG ORAL TABLET 1 tablet by mouth three times daily METFORMIN HCL 03581659215 Active Halle Sahni MD Active DIFLUCAN 150 MG ORAL TABLET DIFLUCAN 150 MG ORAL TABLET 098704 FLUCONAZOLE Inactive LEVAQUIN 500 MG ORAL TABLET 1 tab twice daily LEVAQUIN 500 MG ORAL TABLET 440465 LEVOFLOXACIN Inactive MECLIZINE HCL 12.5 MG ORAL TABLET MECLIZINE HCL 12.5 MG ORAL TABLET 560128 MECLIZINE HCL Inactive BACTRIM DS 800-160 MG ORAL TABLET 1 tab BID BACTRIM DS 800-160 MG ORAL TABLET 892515 SULFAMETHOXAZOLE-TRIMETHOPRIM Inactive Advance Directives Directive Description Start [...] negative Encounters Code Encounter Date Provider Facility CPT-71111 Level 3 Est. Patient 12:27:57 CDT Halle Sahni MD [facility] CPT-81255 Level 3 Est. Patient 15:50:26 CDT Halle Sahni MD [facility] CPT-67676 Level 3 Est. Patient 11:10:51 CLINICAL ANALYST Hardeep Barker MD [facility] CPT-89296 Level 4 New Patient 16:02:27 CLINICAL ANALYST Hardeep Barker MD [facility] CPT-98132 Level 4 Est. Patient 13:31:38 CLINICAL ANALYST Halle Sahni MD [facility] CPT-70814 Level 3 Est. Patient 14:10:08 CLINICAL ANALYST Halle Sahni MD [facility] [place] CPT-52166 Level 3 Est. Patient 10:01:09 CDT Halle Sahni MD [facility] CPT-43798 Level 4 New Patient 16:33:13 CDT Halle Sahni MD [facility] Procedures Code Procedure Name Date Entry Date Standard Description CPT-00748 Cystoscopy 15:50:27 CDT CPT-07476 Postop F/U Visit 15:34:52 CLINICAL ANALYST CPT-17490 I/D hematoma seroma fld gauri 11:10:51 CLINICAL ANALYST CPT-85244 Postop F/U Visit 15:20:53 CLINICAL ANALYST CPT-95331 Postop F/U Visit 13:46:08 CLINICAL ANALYST
--- OUTSIDE RECORDS SUMMARY | 2019-01-10 20:16 | XMS REPORT | Continuity of Care Document ---
Demographics Preferred Language Unknown Marital Status Unknown Rastafarian Affiliation Unknown Race Unknown Ethnic Group Unknown Author Organization Unknown Address Unknown Allergies Active Description Code Type Severity Reaction Onset Reported/Identified Relationship to Patient Clinical Status Yes No Known Medication Allergies Drug N/A N/A Yes No Known Drug Allergies [id number] Drug Allergy Unknown N/A 10/16/2018 Medications There is no data. Problems Date Dx Coded Attending Type Code Diagnosis Diagnosed By 07/05/2010 [facility] COMMUTATOR TESTER, HEATHER 278.01 OBESITY MORBID 07/05/2010 [facility] COMMUTATOR TESTER, HEATHER 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, Unspecified 07/05/2010 [facility] COMMUTATOR TESTER, HEATHER V15.82 TOBACCOISM 07/05/2010 [facility] COMMUTATOR TESTER, HEATHER 278.01 OBESITY MORBID 07/05/2010 [facility] COMMUTATOR TESTER, HEATHER 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, Unspecified 07/05/2010 [facility] COMMUTATOR TESTER, HEATHER V15.82 TOBACCOISM 07/05/2010 [facility] COMMUTATOR TESTER, HEATHER 278.01 OBESITY MORBID 07/05/2010 [facility] COMMUTATOR TESTER, HEATHER 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, Unspecified 07/05/2010 [facility] COMMUTATOR TESTER, HEATHER V15.82 TOBACCOISM 07/05/2010 [facility] COMMUTATOR TESTER, HEATHER 278.01 OBESITY MORBID 07/05/2010 [facility] COMMUTATOR TESTER, HEATHER 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, Unspecified 07/05/2010 [facility] COMMUTATOR TESTER, HEATHER V15.82 TOBACCOISM 07/05/2010 [facility] COMMUTATOR TESTER, HEATHER 278.01 OBESITY MORBID 07/05/2010 [facility] COMMUTATOR TESTER, HEATHER 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, Unspecified 07/05/2010 [facility] COMMUTATOR TESTER, HEATHER V15.82 TOBACCOISM 07/05/2010 [facility] COMMUTATOR TESTER, HEATHER 278.01 OBESITY MORBID 07/05/2010 [facility] COMMUTATOR TESTER, HEATHER 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, Unspecified 07/05/2010 [facility] COMMUTATOR TESTER, HEATHER V15.82 TOBACCOISM 07/05/2010 [facility] COMMUTATOR TESTER, HEATHER 278.01 OBESITY MORBID 07/05/2010 [facility] COMMUTATOR TESTER, HEATHER 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, Unspecified 07/05/2010 [facility] COMMUTATOR TESTER, HEATHER V15.82 TOBACCOISM 07/05/2010 [facility] COMMUTATOR TESTER, MARIANNA 278.01 OBESITY MORBID 07/05/2010 [facility] COMMUTATOR TESTER, MARIANNA 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, Unspecified 07/05/2010 [facility] COMMUTATOR TESTER, MARIANNA V15.82 TOBACCOISM 07/05/2010 [facility] COMMUTATOR TESTER, MARIANNA 278.01 OBESITY MORBID 07/05/2010 [facility] COMMUTATOR TESTER, MARIANNA 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, Unspecified 07/05/2010 [facility] COMMUTATOR TESTER, MARIANNA V15.82 TOBACCOISM 07/07/2010 [facility] COMMUT[facility] TESTER, HEATHER 280.9 Anemia Hypochromic / Microcytic 07/07/2010 [facility] COMMUTATOR TESTER, HEATHER 796.2 Prehypertension 07/07/2010 [facility] COMMUTATOR TESTER, HEATHER V04.81 Influenza Vaccine 07/07/2010 [facility] COMMUTATOR TESTER, HEATHER V68.89 Encounters For Other Specified Administrative Purpose 07/07/2010 [facility] COMMUTATOR TESTER, HEATHER V72.31 Routine Pelvic Exam 07/07/2010 [facility] COMMUTATOR TESTER, HEATHER 280.9 Anemia Hypochromic / Microcytic 07/07/2010 [facility] COMMUTATOR TESTER, HEATHER 796.2 Prehypertension 07/07/2010 [facility] COMMUTATOR TESTER, HEATHER V04.81 Influenza Vaccine 07/07/2010 [facility] COMMUTATOR TESTER, HEATHER V68.89 Encounters For Other Specified Administrative Purpose 07/07/2010 [facility] COMMUTATOR TESTER, HEATHER V72.31 Routine Pelvic Exam 07/07/2010 [facility] COMMUTATOR TESTER, HEATHER 280.9 Anemia Hypochromic / Microcytic 07/07/2010 [facility] COMMUTATOR TESTER, HEATHER 796.2 Prehypertension 07/07/2010 [facility] COMMUTATOR TESTER, HEATHER V04.81 Influenza Vaccine 07/07/2010 [facility] COMMUTATOR TESTER, HEATHER V68.89 Encounters For Other Specified Administrative Purpose 07/07/2010 [facility] COMMUTATOR TESTER, HEATHER V72.31 Routine Pelvic Exam 07/07/2010 [facility] COMMUTATOR TESTER, HEATHER 280.9 Anemia Hypochromic / Microcytic 07/07/2010 [facility] COMMUTATOR TESTER, HEATHER 796.2 Prehypertension 07/07/2010 [facility] COMMUTATOR TESTER, HEATHER V04.81 Influenza Vaccine 07/07/2010 [facility] COMMUTATOR TESTER, HEATHER V68.89 Encounters For Other Specified Administrative Purpose 07/07/2010 [facility] COMMUTATOR TESTER, HEATHER V72.31 Routine Pelvic Exam 07/07/2010 [facility] COMMUTATOR TESTER, HEATHER 280.9 Anemia Hypochromic / Microcytic 07/07/2010 [facility] COMMUTATOR TESTER, HEATHER 796.2 Prehypertension 07/07/2010 [facility] COMMUTATOR TESTER, HEATHER V04.81 Influenza Vaccine 07/07/2010 [facility] COMMUTATOR TESTER, HEATHER V68.89 Encounters For Other Specified Administrative Purpose 07/07/2010 [facility] COMMUTATOR TESTER, HEATHER V72.31 Routine Pelvic Exam 07/07/2010 [facility] COMMUTATOR TESTER, HEATHER 280.9 Anemia Hypochromic / Microcytic 07/07/2010 [facility] COMMUTATOR TESTER, HEATHER 796.2 Prehypertension 07/07/2010 [facility] COMMUTATOR TESTER, HEATHER V04.81 Influenza Vaccine 07/07/2010 [facility] COMMUTATOR TESTER, HEATHER V68.89 Encounters For Other Specified Administrative Purpose 07/07/2010 [facility] COMMUTATOR TESTER, HEATHER V72.31 Routine Pelvic Exam 07/07/2010 [facility] COMMUTATOR TESTER, HEATHER 280.9 Anemia Hypochromic / Microcytic 07/07/2010 [facility] COMMUTATOR TESTER, HEATHER 796.2 Prehypertension 07/07/2010 [facility] COMMUTATOR TESTER, HEATHER V04.81 Influenza Vaccine 07/07/2010 [facility] COMMUTATOR TESTER, HEATHER V68.89 Encounters For Other Specified Administrative Purpose 07/07/2010 [facility] COMMUTATOR TESTER, HEATHER V72.31 Routine Pelvic Exam 07/07/2010 [facility] COMMUTATOR TESTER, MARIANNA 280.9 Anemia Hypochromic / Microcytic 07/07/2010 [facility] COMMUTATOR TESTER, MARIANNA 796.2 Prehypertension 07/07/2010 [facility] COMMUTATOR TESTER, MARIANNA V04.81 Influenza Vaccine 07/07/2010 [facility] COMMUTATOR TESTER, MARIANNA V68.89 Encounters For Other Specified Administrative Purpose 07/07/2010 [facility] COMMUTATOR TESTER, MARIANNA V72.31 Routine Pelvic Exam 07/07/2010 [facility] COMMUTATOR TESTER, MARIANNA 280.9 Anemia Hypochromic / Microcytic 07/07/2010 [facility] COMMUTATOR TESTEREN SunshineE 796.2 Prehypertension 07/07/2010 [facility] COMMUTATOR TESTERMARIANNA Sunshine V04.81 Influenza Vaccine 07/07/2010 [facility] COMMUTATOR TESTERMARIANNA Sunshine V68.89 Encounters For Other Specified Administrative Purpose 07/07/2010 [facility] COMMUTATOR TESTERMARIANNA V72.31 Routine Pelvic Exam 10/20/2010 [facility] COMMUTATOR TESTER, HEATHER 112.1 Candidiasis, Of Vulva And Vagina 10/20/2010 [facility] COMMUTATOR TESTER, HEATHER 599.0 Uti 10/20/2010 [facility] COMMUTATOR TESTER, HEATHER 112.1 Candidiasis, Of Vulva And Vagina 10/20/2010 [facility] COMMUTATOR TESTER, HEATHER 599.0 Uti 10/20/2010 [facility] COMMUTATOR TESTER, HEATHER 112.1 Candidiasis, Of Vulva And Vagina 10/20/2010 [facility] COMMUTATOR TESTER, HEATHER 599.0 Uti 10/20/2010 [facility] COMMUTATOR TESTER, HEATHER 112.1 Candidiasis, Of Vulva And Vagina 10/20/2010 [facility] COMMUTATOR TESTER, HEATHER 599.0 Uti 10/20/2010 [facility] COMMUTATOR TESTER, HEATHER 112.1 Candidiasis, Of Vulva And Vagina 10/20/2010 [facility] COMMUTATOR TESTER, HEATHER 599.0 Uti 10/20/2010 [facility] COMMUTATOR TESTER, HEATHER 112.1 Candidiasis, Of Vulva And Vagina 10/20/2010 [facility] COMMUTATOR TESTER, HEATHER 599.0 Uti 10/20/2010 [facility] COMMUTATOR TESTER, HEATHER 112.1 Candidiasis, Of Vulva And Vagina 10/20/2010 [facility] COMMUTATOR TESTER, HEATHER 599.0 Uti 10/20/2010 [facility] COMMUTATOR TESTER, MARIANNA 112.1 Candidiasis, Of Vulva And Vagina 10/20/2010 [facility] COMMUTATOR TESTER, MARIANNA 599.0 Uti 10/20/2010 [facility] COMMUTATOR TESTER, MARIANNA 112.1 Candidiasis, Of Vulva And Vagina 10/20/2010 [facility] COMMUTATOR TESTER, MARIANNA 599.0 Uti 10/24/2010 [facility] COMMUTATOR TESTER, HEATHER 250.00 DIABETES MELLITUS TYPE 2 10/24/2010 [facility] COMMUTATOR TESTER, HEATHER 466.0 Bronchitis, Acute 10/24/2010 [facility] COMMUTATOR TESTER, HEATHER 496 PULMONARY OBSTRUCTIVE DISORDERS 10/24/2010 [facility] COMMUTATOR TESTER, HEATHER 250.00 DIABETES MELLITUS TYPE 2 10/24/2010 [facility] COMMUTATOR TESTER, HEATHER 466.0 Bronchitis, Acute 10/24/2010 [facility] COMMUTATOR TESTER, HEATHER 496 PULMONARY OBSTRUCTIVE DISORDERS 10/24/2010 [facility] COMMUTATOR TESTER, HEATHER 250.00 DIABETES MELLITUS TYPE 2 10/24/2010 [facility] COMMUTATOR TESTER, HEATHER 466.0 Bronchitis, Acute 10/24/2010 [facility] COMMUTATOR TESTER, HEATHER 496 PULMONARY OBSTRUCTIVE DISORDERS 10/24/2010 [facility] COMMUTATOR TESTER, HEATHER 250.00 DIABETES MELLITUS TYPE 2 10/24/2010 [facility] COMMUTATOR TESTER, HEATHER 466.0 Bronchitis, Acute 10/24/2010 [facility] COMMUTATOR TESTER, HEATHER 496 PULMONARY OBSTRUCTIVE DISORDERS 10/24/2010 [facility] COMMUTATOR TESTER, HEATHER 250.00 DIABETES MELLITUS TYPE 2 10/24/2010 [facility] COMMUTATOR TESTER, HEATHER 466.0 Bronchitis, Acute 10/24/2010 [facility] COMMUTATOR TESTER, HEATHER 496 PULMONARY OBSTRUCTIVE DISORDERS 10/24/2010 [facility] COMMUTATOR TESTER, HEATHER 250.00 DIABETES MELLITUS TYPE 2 10/24/2010 [facility] COMMUTATOR TESTER, HEATHER 466.0 Bronchitis, Acute 10/24/2010 [facility] COMMUTATOR TESTER, HEATHER 496 PULMONARY OBSTRUCTIVE DISORDERS 10/24/2010 [facility] COMMUTATOR TESTER, HEATHER 250.00 DIABETES MELLITUS TYPE 2 10/24/2010 [facility] COMMUTATOR TESTER, HEATHER 466.0 Bronchitis, Acute 10/24/2010 [facility] COMMUTATOR TESTER, HEATHER 496 PULMONARY OBSTRUCTIVE DISORDERS 10/24/2010 [facility] COMMUTATOR TESTER, MARIANNA 250.00 DIABETES MELLITUS TYPE 2 10/24/2010 [facility] COMMUTATOR TESTER, MARIANNA 466.0 Bronchitis, Acute 10/24/2010 [facility] COMMUTATOR TESTER, MARIANNA 496 PULMONARY OBSTRUCTIVE DISORDERS 10/24/2010 [facility] COMMUTATOR TESTER, MARIANNA 250.00 DIABETES MELLITUS TYPE 2 10/24/2010 [facility] COMMUTATOR TESTER, MARIANNA 466.0 Bronchitis, Acute 10/24/2010 [facility] COMMUTATOR TESTER, MARIANNA 496 PULMONARY OBSTRUCTIVE DISORDERS 05/12/2011 [facility] COMMUTATOR TESTER, HEATHER 703.0 Ingrowing Nail 05/12/2011 [facility] COMMUTATOR TESTER, HEATHER 726.91 EXOSTOSIS OF UNSPECIFIED SITE 05/12/2011 [facility] COMMUTATOR TESTER, HEATHER 703.0 Ingrowing Nail 05/12/2011 [facility] COMMUTATOR TESTER, HEATHER 726.91 EXOSTOSIS OF UNSPECIFIED SITE 05/12/2011 [facility] COMMUTATOR TESTER, HEATHER 703.0 Ingrowing Nail 05/12/2011 [facility] COMMUTATOR TESTER, HEATHER 726.91 EXOSTOSIS OF UNSPECIFIED SITE 05/12/2011 [facility] COMMUTATOR TESTER, HEATHER 703.0 Ingrowing Nail 05/12/2011 [facility] COMMUTATOR TESTER, HEATHER 726.91 EXOSTOSIS OF UNSPECIFIED SITE 05/12/2011 [facility] COMMUTATOR TESTER, HEATHER 703.0 Ingrowing Nail 05/12/2011 [facility] COMMUTATOR TESTER, HEATHER 726.91 EXOSTOSIS OF UNSPECIFIED SITE 05/12/2011 [facility] COMMUTATOR TESTER, HEATHER 703.0 Ingrowing Nail 05/12/2011 [facility] COMMUTATOR TESTER, HEATHER 726.91 EXOSTOSIS OF UNSPECIFIED SITE 05/12/2011 [facility] COMMUTATOR TESTER, HEATHER 703.0 Ingrowing Nail 05/12/2011 [facility] COMMUTATOR TESTER, HEATHER 726.91 EXOSTOSIS OF UNSPECIFIED SITE 05/12/2011 [facility] COMMUTATOR TESTER, MARIANNA 703.0 Ingrowing Nail 05/12/2011 [facility] COMMUTATOR TESTER, MARIANNA 726.91 EXOSTOSIS OF UNSPECIFIED SITE 05/12/2011 [facility] COMMUTATOR TESTER, MARIANNA 703.0 Ingrowing Nail 05/12/2011 [facility] COMMUTATOR TESTER, MARIANNA 726.91 EXOSTOSIS OF UNSPECIFIED SITE 06/02/2011 [facility] COMMUTATOR TESTER, HEATHER 078.12 Plantar Wart 06/02/2011 [facility] COMMUTATOR TESTER, HEATHER 078.12 Plantar Wart 06/02/2011 [facility] COMMUTATOR TESTER, HEATHER 078.12 Plantar Wart 06/02/2011 [facility] COMMUTATOR TESTER, HEATHER 078.12 Plantar Wart 06/02/2011 [facility] COMMUTATOR TESTER, HEATHER 078.12 Plantar Wart 06/02/2011 [facility] COMMUTATOR TESTER, HEATHER 078.12 Plantar Wart 06/02/2011 [facility] COMMUTATOR TESTER, HEATHER 078.12 Plantar Wart 06/02/2011 [facility] COMMUTATOR TESTER, MARIANNA 078.12 Plantar Wart 06/02/2011 [facility] COMMUTATOR TESTER, MARIANNA 078.12 Plantar Wart 07/05/2011 [facility] COMMUT[facility] TESTER, HEATHER 466.0 ACUTE BRONCHITIS 07/05/2011 [facility] COMMUTATOR TESTER, HEATHER 466.0 ACUTE BRONCHITIS 07/05/2011 [facility] COMMUTATOR TESTER, HEATHER 466.0 ACUTE BRONCHITIS 07/05/2011 [facility] COMMUTATOR TESTER, HEATHER 466.0 ACUTE BRONCHITIS 07/05/2011 [facility] COMMUTATOR TESTER, HEATHER 466.0 ACUTE BRONCHITIS 07/05/2011 [facility] COMMUTATOR TESTER, HEATHER 466.0 ACUTE BRONCHITIS 07/05/2011 [facility] COMMUTATOR TESTER, HEATHER 466.0 ACUTE BRONCHITIS 07/05/2011 [facility] COMMUTATOR TESTER, MARIANNA 466.0 ACUTE BRONCHITIS 07/05/2011 [facility] COMMUTATOR TESTER, MARIANNA 466.0 ACUTE BRONCHITIS 11/20/2011 [facility] COMMUTATOR TESTER, HEATHER 682.9 CELLULITIS 11/20/2011 [facility] COMMUTATOR TESTER, HEATHER 682.9 CELLULITIS 11/20/2011 [facility] COMMUTATOR TESTER, HEATHER 682.9 CELLULITIS 11/20/2011 [facility] COMMUTATOR TESTER, HEATHER 682.9 CELLULITIS 11/20/2011 [facility] COMMUTATOR TESTER, HEATHER 682.9 CELLULITIS 11/20/2011 [facility] COMMUTATOR TESTER, HEATHER 682.9 CELLULITIS 11/20/2011 [facility] COMMUTATOR TESTER, HEATHER 682.9 CELLULITIS 11/20/2011 [facility] COMMUTATOR TESTER, MARIANNA 682.9 CELLULITIS 11/20/2011 [facility] COMMUTATOR TESTER, MARIANNA 682.9 CELLULITIS 12/22/2011 [facility] COMMUTATOR TESTER, HEATHER 401.1 ESSENTIAL HYPERTENSION BENIGN 12/22/2011 [facility] COMMUTATOR TESTER, HEATHER 401.1 ESSENTIAL HYPERTENSION BENIGN 12/22/2011 [facility] COMMUTATOR TESTER, HEATHER 401.1 ESSENTIAL HYPERTENSION BENIGN 12/22/2011 [facility] COMMUTATOR TESTER, HEATHER 401.1 ESSENTIAL HYPERTENSION BENIGN 12/22/2011 [facility]VIN APRNEN 401.1 ESSENTIAL HYPERTENSION BENIGN 12/22/2011 [facility] COMMUTATOR TESTERALEXEN 401.1 ESSENTIAL HYPERTENSION BENIGN 12/22/2011 [facility] ULLOAN HEATHER 401.1 ESSENTIAL HYPERTENSION BENIGN 12/22/2011 [facility] COMMUTATOR TESTER, MARIANNA 401.1 ESSENTIAL HYPERTENSION BENIGN 12/22/2011 [facility] COMMUTATOR TESTER, MARIANNA 401.1 ESSENTIAL HYPERTENSION BENIGN 04/09/2012 [facility] COMMUTATOR TESTER, HETAHER 272.2 HYPERLIPIDEMIA 04/09/2012 [facility] COMMUTATOR TESTER HEATHER V04.81 Need For Prophylactic Vaccination And Inoculation Against Influenza 04/09/2012 [facility] COMMUTATOR TESTERHEATHER Sunshine 272.2 HYPERLIPIDEMIA 04/09/2012 [facility] COMMUTATOR TESTER HEATHER V04.81 Need For Prophylactic Vaccination And Inoculation Against Influenza 04/09/2012 [facility] COMMUTATOR TESTERHEATHER Sunshine 272.2 HYPERLIPIDEMIA 04/09/2012 [facility] COMMUTATOR TESTER, HEATHER V04.81 Need For Prophylactic Vaccination And Inoculation Against Influenza 04/09/2012 [facility] COMMUTATOR TESTERHEATHER Sunshine 272.2 HYPERLIPIDEMIA 04/09/2012 [facility] COMMUTATOR TESTER, HEATHER V04.81 Need For Prophylactic Vaccination And Inoculation Against Influenza 04/09/2012 [facility] COMMUTATOR TESTERHEATHER Sunshine 272.2 HYPERLIPIDEMIA 04/09/2012 [facility] COMMUTATOR TESTER, HEATHER V04.81 Need For Prophylactic Vaccination And Inoculation Against Influenza 04/09/2012 [facility] COMMUTATOR TESTERHEATHER Sunshine 272.2 HYPERLIPIDEMIA 04/09/2012 [facility] COMMUTATOR TESTER, HEATHER V04.81 Need For Prophylactic Vaccination And Inoculation Against Influenza 04/09/2012 [facility] COMMUTATOR TESTERHEATHER Sunshine 272.2 HYPERLIPIDEMIA 04/09/2012 [facility] COMMUTATOR TESTERHEATHER Sunshine V04.81 Need For Prophylactic Vaccination And Inoculation Against Influenza 04/09/2012 [facility] COMMUTATOR TESTEREN SunshineE 272.2 HYPERLIPIDEMIA 04/09/2012 [facility] COMMUTATOR TESTERMARIANNA Sunshine V04.81 Need For Prophylactic Vaccination And Inoculation Against Influenza 04/09/2012 [facility] COMMUTATOR TESTERMARIANNA Sunshine 272.2 HYPERLIPIDEMIA 04/09/2012 [facility] COMMUTATOR TESTERMARIANNA Sunshine V04.81 Need For Prophylactic Vaccination And Inoculation Against Influenza 05/14/2012 [facility] HEATHER WRIGHT 682.9 Cellulitis/abscess 05/14/2012 [facility] COMMUTATOR TESTER, HEATHER 682.9 Cellulitis/abscess 05/14/2012 [facility] COMMUTATOR TESTER, HEATHER 682.9 Cellulitis/abscess 05/14/2012 [facility] COMMUTATOR TESTER, HEATHER 682.9 Cellulitis/abscess 05/14/2012 [facility] COMMUTATOR TESTER, HEATHER 682.9 Cellulitis/abscess 05/14/2012 [facility] COMMUTATOR TESTER, HEATHER 682.9 Cellulitis/abscess 05/14/2012 [facility] COMMUTATOR TESTER, HEATHER 682.9 Cellulitis/abscess 05/14/2012 [facility] COMMUTATOR TESTER, MARIANNA 682.9 Cellulitis/abscess 05/14/2012 [facility] COMMUTATOR TESTER, MARIANNA 682.9 Cellulitis/abscess 06/24/2012 [facility] COMMUTATOR TESTER, HEATHER 112.1 Candidiasis, Of Vulva And Vagina 06/24/2012 [facility] COMMUTATOR TESTER, HEATHER 112.1 Candidiasis, Of Vulva And Vagina 06/24/2012 [facility] COMMUTATOR TESTER, HEATHER 112.1 Candidiasis, Of Vulva And Vagina 06/24/2012 [facility] COMMUTATOR TESTER, HEATHER 112.1 Candidiasis, Of Vulva And Vagina 06/24/2012 [facility] COMMUTATOR TESTER, HEATHER 112.1 Candidiasis, Of Vulva And Vagina 06/24/2012 [facility] COMMUTATOR TESTER, HEATHER 112.1 Candidiasis, Of Vulva And Vagina 06/24/2012 [facility] COMMUTATOR TESTER, HEATHER 112.1 Candidiasis, Of Vulva And Vagina 06/24/2012 [facility] COMMUTATOR TESTER, MARIANNA 112.1 Candidiasis, Of Vulva And Vagina 06/24/2012 [facility] COMMUTATOR TESTER, MARIANNA 112.1 Candidiasis, Of Vulva And Vagina 06/28/2012 [facility] COMMUTATOR TESTER, HEATHER 110.1 Onychomycosis 06/28/2012 [facility] COMMUTATOR TESTER, HEATHER 703.8 Other Specified Diseases Of Nail 06/28/2012 [facility] COMMUTATOR TESTER, HEATHER 110.1 Onychomycosis 06/28/2012 [facility] COMMUTATOR TESTER, HEATHER 703.8 Other Specified Diseases Of Nail 06/28/2012 [facility] COMMUTATOR TESTER, HEATHER 110.1 Onychomycosis 06/28/2012 [facility] COMMUTATOR TESTER, HEATHER 703.8 Other Specified Diseases Of Nail 06/28/2012 [facility] COMMUTATOR TESTER, HEATHER 110.1 Onychomycosis 06/28/2012 [facility] COMMUTATOR TESTER, HEATHER 703.8 Other Specified Diseases Of Nail 06/28/2012 [facility] COMMUTATOR TESTER, HEATHER 110.1 Onychomycosis 06/28/2012 [facility] COMMUTATOR TESTER, HEATHER 703.8 Other Specified Diseases Of Nail 06/28/2012 [facility] COMMUTATOR TESTER, HEATHER 110.1 Onychomycosis 06/28/2012 [facility] COMMUTATOR TESTER, HEATHER 703.8 Other Specified Diseases Of Nail 06/28/2012 [facility] COMMUTATOR TESTER, HEATHER 110.1 Onychomycosis 06/28/2012 [facility] COMMUTATOR TESTER, HEATHER 703.8 Other Specified Diseases Of Nail 06/28/2012 [facility] COMMUTATOR TESTER, MARIANNA 110.1 Onychomycosis 06/28/2012 [facility] COMMUTATOR TESTER, MARIANNA 703.8 Other Specified Diseases Of Nail 06/28/2012 [facility] COMMUTATOR TESTER, MARIANNA 110.1 Onychomycosis 06/28/2012 [facility] COMMUTATOR TESTER, MARIANNA 703.8 Other Specified Diseases Of Nail 08/21/2012 [facility] COMMUTATOR TESTER, HEATHER 682.9 Cellulitis/abscess 08/21/2012 [facility] COMMUTATOR TESTER, HEATHER V72.31 Gynecological Exam 08/21/2012 [facility] COMMUTATOR TESTER, HEATHER 682.9 Cellulitis/abscess 08/21/2012 [facility] COMMUTATOR TESTER, HEATHER V72.31 Gynecological Exam 08/21/2012 [facility] COMMUTATOR TESTER, HEATHER 682.9 Cellulitis/abscess 08/21/2012 [facility] COMMUTATOR TESTER, HEATHER V72.31 Gynecological Exam 08/21/2012 [facility] COMMUTATOR TESTER, HEATHER 682.9 Cellulitis/abscess 08/21/2012 [facility] COMMUTATOR TESTER, HEATHER V72.31 Gynecological Exam 08/21/2012 [facility] COMMUTATOR TESTER, HEATHER 682.9 Cellulitis/abscess 08/21/2012 [facility] COMMUTATOR TESTER, HEATHER V72.31 Gynecological Exam 08/21/2012 [facility] COMMUTATOR TESTER, HEATHER 682.9 Cellulitis/abscess 08/21/2012 [facility] COMMUTATOR TESTER, HEATHER V72.31 Gynecological Exam 08/21/2012 [facility] COMMUTATOR TESTER, HEATHER 682.9 Cellulitis/abscess 08/21/2012 [facility] COMMUTATOR TESTER, HEATHER V72.31 Gynecological Exam 08/21/2012 [facility] COMMUTATOR TESTER, MARIANNA 682.9 Cellulitis/abscess 08/21/2012 [facility] COMMUTATOR TESTER, MARIANNA V72.31 Gynecological Exam 08/21/2012 [facility] COMMUTATOR TESTER, MARIANNA 682.9 Cellulitis/abscess 08/21/2012 [facility] COMMUTATOR TESTER, MARIANNA V72.31 Gynecological Exam 10/08/2012 [facility] COMMUTATOR TESTER, HEATHER 466.0 Bronchitis, Acute 10/08/2012 [facility] COMMUTATOR TESTER, HEATHER 466.0 Bronchitis, Acute 10/08/2012 [facility] COMMUTATOR TESTER, HEATHER 466.0 Bronchitis, Acute 10/08/2012 [facility] COMMUTATOR TESTER, HEATHER 466.0 Bronchitis, Acute 10/08/2012 [facility] COMMUTATOR TESTER, HEATHER 466.0 Bronchitis, Acute 10/08/2012 [facility] COMMUTATOR TESTER, HEATHER 466.0 Bronchitis, Acute 10/08/2012 [facility] COMMUTATOR TESTER, HEATHER 466.0 Bronchitis, Acute 10/08/2012 [facility] COMMUTATOR TESTER, MARIANNA 466.0 Bronchitis, Acute 10/08/2012 [facility] COMMUTATOR TESTER, MARIANNA 466.0 Bronchitis, Acute 12/05/2012 [facility] COMMUTATOR TESTER, HEATHER 599.0 Uti 12/05/2012 [facility] COMMUTATOR TESTER, HEATHER 599.0 Uti 12/05/2012 [facility] COMMUTATOR TESTER, HEATHER 599.0 Uti 12/05/2012 [facility] COMMUTATOR TESTER, HEATHER 599.0 Uti 12/05/2012 [facility] COMMUTATOR TESTER, HEATHER 599.0 Uti 12/05/2012 [facility] COMMUTATOR TESTER, HEATHER 599.0 Uti 12/05/2012 [facility] COMMUTATOR TESTER, HEATHER 599.0 Uti 12/05/2012 [facility] COMMUTATOR TESTER, MARIANNA 599.0 Uti 12/05/2012 [facility] COMMUTATOR TESTER, MARIANNA 599.0 Uti 05/21/2013 [facility] COMMUTATOR TESTER, HEATHER 285.9 ANEMIA, UNSPECIFIED 05/21/2013 [facility] COMMUTATOR TESTER, HEATHER 285.9 ANEMIA, UNSPECIFIED 05/21/2013 [facility] COMMUTATOR TESTER, HEATHER 285.9 ANEMIA, UNSPECIFIED 05/21/2013 [facility] COMMUTATOR TESTER, HEATHER 285.9 ANEMIA, UNSPECIFIED 05/21/2013 [facility] COMMUTATOR TESTER, HEATHER 285.9 ANEMIA, UNSPECIFIED 05/21/2013 [facility] COMMUTATOR TESTER, HEATHER 285.9 ANEMIA, UNSPECIFIED 05/21/2013 [facility] COMMUTATOR TESTER, HEATHER 285.9 ANEMIA, UNSPECIFIED 05/21/2013 [facility] COMMUTATOR TESTER, MARIANNA 285.9 ANEMIA, UNSPECIFIED 08/07/2013 [facility] COMMUTATOR TESTER, HEATHER 682.5 CELLULITIS AND ABSCESS OF BUTTOCK 08/07/2013 [facility] COMMUTATOR TESTER, HEATHER 682.5 CELLULITIS AND ABSCESS OF BUTTOCK 08/07/2013 [facility] COMMUTATOR TESTER, HEATHER 682.5 CELLULITIS AND ABSCESS OF BUTTOCK 08/07/2013 [facility] COMMUTATOR TESTER, HEATHER 682.5 CELLULITIS AND ABSCESS OF BUTTOCK 08/07/2013 [facility] COMMUTATOR TESTER, HEATHER 682.5 CELLULITIS AND ABSCESS OF BUTTOCK 08/07/2013 [facility] COMMUTATOR TESTER, HEATHER 682.5 CELLULITIS AND ABSCESS OF BUTTOCK 08/07/2013 [facility] COMMUTATOR TESTER, HEATHER 682.5 CELLULITIS AND ABSCESS OF BUTTOCK 12/12/2013 [facility] COMMUTATOR TESTER, HEATHER 250.02 DIABETES MELLITUS WITHOUT MENTION OF COMPLICATION TYPE II OR UNSPECIFIED TYPE UNCONTROLLED 12/12/2013 BRANDEE COMMUTATOR TESTER, HEATHER 250.02 DIABETES MELLITUS WITHOUT MENTION OF COMPLICATION TYPE II OR UNSPECIFIED TYPE UNCONTROLLED 12/12/2013 BRANDEE COMMUTATOR TESTER, HEATHER 250.02 DIABETES MELLITUS WITHOUT MENTION OF COMPLICATION TYPE II OR UNSPECIFIED TYPE UNCONTROLLED 12/12/2013 BRANDEE COMMUTATOR TESTER, HEATHER 250.02 DIABETES MELLITUS WITHOUT MENTION OF [...] DANIEL HERNANDEZ MD, Ot S66.911A STRAIN OF RUSTP MUSC/FASC/TEND AT S/HND 09/13/2018 DANIEL HERNANDEZ MD [...] OF BOTH CERVIX AND UTER 11/07/2018 JAME CULVRE DO T Ot Z90.89 ACQUIRED ABSENCE OF [...] Z92.21 PERSONAL HISTORY OF ANTINEOPLASTIC CHEMO 12/02/2018 DINAE DELCID MD, Ot Z98.51 TUBAL LIGATION STATUS [...] OF BOTH CERVIX AND UTER 12/14/2018 LUCÍA FUENTSE MD, Ot Z90.89 ACQUIRED ABSENCE OF OTHER [...] JAZIEL Ot Z98.51 TUBAL LIGATION STATUS 01/04/2019 WONG DO, JAZIEL Ot E11.9 TYPE 2 DIABETES MELLITUS WITHOUT COMPLIC 01/04/2019 WONG DO, JAZIEL Ot I10 ESSENTIAL (PRIMARY) HYPERTENSION 01/04/2019 WONG DO, JAZIEL Ot J45.909 UNSPECIFIED ASTHMA, UNCOMPLICATED 01/04/2019 WONG DO, JAZIEL Ot N39.0 URINARY TRACT INFECTION, SITE NOT SPECIF 01/04/2019 WONG DO, JAZIEL Ot R30.0 DYSURIA 01/04/2019 WONG DO, JAZIEL Ot Z77.22 CNTCT W AND EXPSR TO ENVIRON TOBACCO SMO 01/04/2019 JAZIEL WONG DO Ot Z85.528 PERSONAL HISTORY OF OTHER MALIGNANT NEOP 01/04/2019 JAZIEL WONG DO Ot Z87.442 PERSONAL HISTORY OF URINARY CALCULI 01/04/2019 JAZIEL WONG DO Ot Z90.5 ACQUIRED ABSENCE OF KIDNEY 01/04/2019 JAZIEL WONG DO Ot Z90.710 ACQUIRED ABSENCE OF BOTH CERVIX AND UTER 01/04/2019 JAZIEL WONG DO Ot Z98.51 TUBAL LIGATION STATUS 01/04/2019 JERI BATEMAN, MANASA Funes Ot R10.84 GENERALIZED ABDOMINAL PAIN 01/05/2019 TARIK GEORGE DO Ot E11.9 TYPE 2 DIABETES MELLITUS WITHOUT COMPLIC 01/05/2019 TARIK GOERGE DO Ot I10 ESSENTIAL (PRIMARY) HYPERTENSION 01/05/2019 TARIK GEORGE DO Ot J45.909 UNSPECIFIED ASTHMA, UNCOMPLICATED 01/05/2019 TARIK GEORGE DO Ot R10.2 PELVIC AND PERINEAL PAIN 01/05/2019 TARIK GEORGE DO Ot Z77.22 CNTCT W AND EXPSR TO ENVIRON TOBACCO SMO 01/05/2019 TARIK GEORGE DO Ot Z85.528 PERSONAL HISTORY OF OTHER MALIGNANT NEOP 01/05/2019 TARIK GEORGE DO Ot Z87.442 PERSONAL HISTORY OF URINARY CALCULI 01/05/2019 TARIK GEORGE DO Ot Z90.5 ACQUIRED ABSENCE OF KIDNEY 01/05/2019 TARIK GEORGE DO Ot Z90.710 ACQUIRED ABSENCE OF BOTH CERVIX AND UTER 01/05/2019 TARIK GEORGE DO Ot Z90.89 ACQUIRED ABSENCE OF OTHER ORGANS 01/05/2019 TARIK GEORGE DO Ot Z98.51 TUBAL LIGATION STATUS 01/06/2019 JAZIEL WONG DO Ot E11.9 TYPE 2 DIABETES MELLITUS WITHOUT COMPLIC 01/06/2019 JAZIEL WONG DO Ot I10 ESSENTIAL (PRIMARY) HYPERTENSION 01/06/2019 JAZIEL WONG DO Ot J45.909 UNSPECIFIED ASTHMA, UNCOMPLICATED 01/06/2019 JAZIEL WONG DO Ot N39.0 URINARY TRACT INFECTION, SITE NOT [...] DO Ot Z98.51 TUBAL LIGATION STATUS 01/07/2019 POLA WEBB DO Ot B37.41 CANDIDAL CYSTITIS AND URETHRITIS 01/07/2019 POLA WEBB DO Ot E11.9 TYPE 2 DIABETES MELLITUS WITHOUT COMPLIC 01/07/2019 POLA WEBB DO Ot I10 ESSENTIAL (PRIMARY) HYPERTENSION 01/07/2019 POLA WEBB DO Ot J45.909 UNSPECIFIED ASTHMA, UNCOMPLICATED 01/07/2019 POLA WEBB DO Ot R45.851 SUICIDAL IDEATIONS 01/07/2019 POLA WEBB DO Ot Z77.22 CNTCT W AND EXPSR TO ENVIRON TOBACCO SMO 01/07/2019 POLA WEBB DO Ot Z85.528 PERSONAL HISTORY OF OTHER MALIGNANT NEOP 01/07/2019 POLA WEBB DO Ot Z87.442 PERSONAL HISTORY OF URINARY CALCULI 01/07/2019 POLA WEBB DO, Ot Z90.710 ACQUIRED ABSENCE OF BOTH CERVIX AND UTER 01/07/2019 POLA WEBB DO Ot Z90.89 ACQUIRED ABSENCE OF OTHER ORGANS 01/07/2019 POLA WEBB DO Ot Z98.51 TUBAL LIGATION STATUS 01/07/2019 [...] I10 ESSENTIAL (PRIMARY) HYPERTENSION 01/08/2019 POLA WEBB DO, Ot J45.909 UNSPECIFIED ASTHMA, UNCOMPLICATED 01/08/2019 POLA WEBB DO, Ot R45.851 SUICIDAL IDEATIONS 01/08/2019 POLA WEBB DO, Ot Z77.22 CNTCT W AND EXPSR TO ENVIRON TOBACCO SMO 01/08/2019 POLA WEBB DO, Ot Z85.528 PERSONAL HISTORY OF OTHER MALIGNANT NEOP 01/08/2019 POLA WEBB DO Ot Z87.442 PERSONAL HISTORY OF URINARY CALCULI 01/08/2019 POLA WEBB DO Ot Z90.710 ACQUIRED ABSENCE OF BOTH CERVIX AND UTER 01/08/2019 POLA WEBB DO Ot Z90.89 ACQUIRED ABSENCE OF OTHER ORGANS 01/08/2019 POLA WEBB DO Ot Z98.51 TUBAL LIGATION STATUS 01/08/2019 MANASA WILCOX MD Ot R10.84 GENERALIZED ABDOMINAL PAIN 01/08/2019 MANASA WILCOX MD Ot R10.84 GENERALIZED ABDOMINAL PAIN 01/10/2019 JAZIEL WONG DO Ot E11.9 TYPE 2 DIABETES MELLITUS WITHOUT COMPLIC 01/10/2019 JAZIEL WONG DO Ot I10 ESSENTIAL (PRIMARY) HYPERTENSION 01/10/2019 JAZIEL WONG DO, Ot J45.909 UNSPECIFIED ASTHMA, UNCOMPLICATED 01/10/2019 JAZIEL WONG DO, Ot N39.0 URINARY TRACT INFECTION, SITE NOT SPECIF 01/10/2019 JAZIEL WONG DO, Ot R30.0 DYSURIA 01/10/2019 JAZIEL WONG DO, Ot Z77.22 CNTCT W AND EXPSR TO ENVIRON TOBACCO SMO 01/10/2019 JAZIEL WONG DO, Ot Z85.528 PERSONAL HISTORY OF OTHER MALIGNANT NEOP 01/10/2019 JAZIEL WONG DO, Ot Z87.442 PERSONAL HISTORY OF URINARY CALCULI 01/10/2019 JAZIEL WONG DO, Ot Z90.5 ACQUIRED ABSENCE OF KIDNEY 01/10/2019 JAZIEL WONG DO, Ot Z90.710 ACQUIRED ABSENCE OF BOTH CERVIX AND UTER 01/10/2019 JAZIEL WONG DO, Ot Z98.51 TUBAL LIGATION STATUS 01/10/2019 POLA WEBB DO, Ot E11.9 TYPE 2 DIABETES MELLITUS WITHOUT COMPLIC 01/10/2019 POLA WEBB DO, Ot G89.29 OTHER CHRONIC PAIN 01/10/2019 POLA WEBB DO, Ot I10 ESSENTIAL (PRIMARY) HYPERTENSION 01/10/2019 POLA WEBB DO, Ot J45.909 UNSPECIFIED ASTHMA, UNCOMPLICATED 01/10/2019 POLA WEBB DO, Ot R10.11 RIGHT UPPER QUADRANT PAIN 01/10/2019 POLA WEBB DO, Ot Z77.22 CNTCT W AND EXPSR TO ENVIRON TOBACCO SMO 01/10/2019 POLA WEBB DO, Ot Z85.528 PERSONAL HISTORY OF OTHER MALIGNANT NEOP 01/10/2019 POLA WEBB DO, Ot Z87.442 PERSONAL HISTORY OF URINARY CALCULI 01/10/2019 POLA WEBB DO, Ot Z90.5 ACQUIRED ABSENCE OF KIDNEY 01/10/2019 POLA WEBB DO, Ot Z90.710 ACQUIRED ABSENCE OF BOTH CERVIX AND UTER 01/10/2019 POLA WEBB DO, Ot Z90.89 ACQUIRED ABSENCE OF OTHER ORGANS 01/10/2019 POLA WEBB DO, Ot Z98.51 TUBAL LIGATION STATUS Procedures Code [place] [address] GLUCOSE 05/08/2013 36272 HEMOGLOBIN A1C 05/08/2013 G0008 ADMIN FEE (MEDICARE) INFLUENZA 05/14/2013 20432 CBC - CBC WITH DIFF - LC 05/15/2013 70104 COMP - COMPREHENSIVE PANEL - LC 05/15/2013 94711 LIPID - LIPID PANEL - LC 05/15/2013 20074 TSH - TSH - LC 05/15/2013 89467 MALB - MICROALBUMIN - LC 05/15/2013 77376 GLUCOSE 08/11/2013 76383 HEMOGLOBIN A1C 08/11/2013 62794 CBC WITH DIFF 08/12/2013 38541 GLUCOSE 10/07/2013 4000F TOBACCO USE TXMNT COUNSELING 10/13/2013 05223 PULSE OXIMETRY 12/12/2013 A4614 PEAK FLOW 12/12/2013 99016 GLUCOSE 12/12/2013 43040 HEMOGLOBIN A1C 12/12/2013 Pulmonary Pulmonary Function Test 01/13/2014 A4614 PEAK FLOW 02/10/2014 87740 PULSE OXIMETRY 02/10/2014 54748 GLUCOSE 02/10/2014 Endocrino Endocrinology 02/13/2014 Pulmonary Pulmonology, Pulmonology 03/13/2014 03377 PULSE OXIMETRY 04/14/2014 A4614 PEAK FLOW 04/14/2014 [...] 7-25 CREATININE 0.90 mg/dL 0.50-1.05 eGFR NON-AFR. ARMENIAN 74 mL/min/1.73m2 > OR=60 eGFR 86 mL/min/1.73m2 [...] Automated blood platelet mean volume measurement 10.0 [z_us] 7.4-10.4 Automated blood neutrophils/100 leukocytes 39 % [...] culture - 11/06/18 18:55 Bacterial blood culture [facility] Influenza virus A and B antigen detection - 11/06/18 18:59 FLU RESULT NEGATIVE FOR INFLUENZA A AND B ANTIGENS BY [facility] Bacterial blood culture - 11/06/18 19:08 Bacterial blood culture [facility] Capillary blood glucose measurement by glucometer (mass/volume) [...] - 11/29/18 09:55 Bacterial blood culture NG NR Complete urinalysis with reflex to culture - [...] culture - 01/04/19 19:30 Bacterial urine culture [id number] NRG COLONY COUNT 30,000 CFU/ML NRG Complete [...] culture - 01/04/19 20:35 Bacterial urine culture [id number] NRG COLONY COUNT . NRG FTX;REPORTABLE <10,000 [...] plasma ethanol measurement (mass/volume) < mg/dL <10 Complete urinalysis with reflex to culture - 01/08/19 17:40 Urine color determination YELLOW NRG Urine clarity determination CLEAR NRG Urine pH measurement by test strip 5.5 5-9 Specific gravity of urine by test strip 1.020 1.016-1.022 Urine protein assay by test strip, semi-quantitative NEGATIVE NEGATIVE Urine glucose detection by automated test strip NEGATIVE NEGATIVE Erythrocytes detection in urine sediment by light microscopy NEGATIVE NEGATIVE Urine ketones detection by automated test strip NEGATIVE NEGATIVE Urine nitrite detection by test strip NEGATIVE NEGATIVE Urine total bilirubin detection by test strip NEGATIVE NEGATIVE Urine urobilinogen measurement by automated test strip (mass/volume) 0.2 mg/dL NORMAL Urine leukocyte esterase detection by dipstick NEGATIVE NEGATIVE Automated urine sediment erythrocyte count by microscopy (number/high power field) NONE NRG Automated urine sediment leukocyte count by microscopy (number/high power field) [HPF] NRG Bacteria detection in urine sediment by light microscopy TRACE NRG Squamous epithelial cells detection in urine sediment by light microscopy 5-10 NRG Crystals detection in urine sediment by light microscopy NONE NRG Casts detection in urine sediment by light microscopy NONE NRG Mucus detection in urine sediment by light microscopy NEGATIVE NRG Complete urinalysis with reflex to culture YES NRG Bacterial urine culture - 01/08/19 17:40 Bacterial urine culture 3 OR MORE NRG COLONY COUNT 20,000 CFU/ML NRG FTX;REPORTABLE SUGGESTING PROBABLE COLLECTION NRG FREE TEXT ENTRY 2 CONTAMINATION WITH SKIN REGINALD NRG FREE TEXT ENTRY 3 NO SUSCEPTIBILITY PERFORMED NRG Complete blood count (CBC) with automated white blood cell (WBC) differential - 01/08/19 18:00 Blood leukocytes automated count (number/volume) 8.3 10*3/uL 4.3-11.0 Blood erythrocytes automated count (number/volume) 3.96 10*6/uL 4.35-5.85 Venous blood hemoglobin measurement (mass/volume) 11.2 g/dL 11.5-16.0 Blood hematocrit (volume fraction) 37 % 35-52 Automated erythrocyte mean corpuscular volume 92 [foz_us] 80-99 Automated erythrocyte mean corpuscular hemoglobin (mass per erythrocyte) 28 pg 25-34 Automated erythrocyte mean corpuscular hemoglobin concentration measurement (mass/volume) 31 g/dL 32-36 Automated erythrocyte distribution width ratio 18.0 % 10.0- 14.5 Automated blood platelet count (count/volume) 241 10*3/uL 130-400 Automated blood platelet mean volume measurement 10.0 [foz_us] 7.4-10.4 Automated blood neutrophils/100 leukocytes 60 % 42-75 Automated blood lymphocytes/100 leukocytes 28 % 12-44 Blood monocytes/100 leukocytes 7 % 0-12 Automated blood eosinophils/100 leukocytes 3 % 0-10 Automated blood basophils/100 leukocytes 1 % 0-10 Blood neutrophils automated count (number/volume) 5.0 10*3 1.8-7.8 Blood lymphocytes automated count (number/volume) 2.4 10*3 1.0-4.0 Blood monocytes automated count (number/volume) 0.6 10*3 0.0- 1.0 Automated eosinophil count 0.2 10*3/uL 0.0-0.3 Automated blood basophil count (count/volume) 0.1 10*3/uL 0.0-0.1 Comprehensive metabolic panel - 01/08/19 18:00 Serum or plasma sodium measurement (moles/volume) 139 mmol/L 135-145 Serum or plasma potassium measurement (moles/volume) 3.7 mmol/L 3.6-5.0 Serum or plasma chloride measurement (moles/volume) 99 mmol/L 98-107 Carbon dioxide 25 mmol/L 21-32 Serum or plasma anion gap determination (moles/volume) 15 mmol/L 5-14 Serum or plasma urea nitrogen measurement (mass/volume) 7 mg/dL 7-18 Serum or plasma creatinine measurement (mass/volume) 0.95 mg/dL 0.60-1.30 Serum or plasma urea nitrogen/creatinine mass ratio 7 NRG Serum or plasma creatinine measurement with calculation of estimated glomerular filtration rate > NRG Serum or plasma glucose measurement (mass/volume) 110 mg/dL 70-105 Serum or plasma calcium measurement (mass/volume) 9.4 mg/dL 8.5-10.1 Serum or plasma total bilirubin measurement (mass/volume) 0.3 mg/dL 0.1-1.0 Serum or plasma alkaline phosphatase measurement (enzymatic activity/volume) 113 U/L 40-136 Serum or plasma aspartate aminotransferase measurement (enzymatic activity/volume) 13 U/L 5-34 Serum or plasma alanine aminotransferase measurement (enzymatic activity/volume) 14 U/L 0-55 Serum or plasma protein measurement (mass/volume) 7.9 g/dL 6.4-8.2 Serum or plasma albumin measurement (mass/volume) 4.2 g/dL 3.2-4.5 CALCIUM CORRECTED 9.2 mg/dL 8.5-10.1 TROPONIN T - 01/08/19 18:00 TROPONIN T 6 % <=10 Lipase - 01/08/19 18:00 Lipase 46 U/L 8-78 Encounters ACCT No. Visit Date/Time Discharge Status Pt. Type Provider Facility Loc./Unit Complaint [id number] 10/30/2018 17:22:00 Document Registration [id number] 10/30/2018 17:22:00 Document Registration [id number] 01/02/2019 02:27:02 ACT Document Registration [id number] 01/10/2019 13:33:01 ACT Unknown Halle Sahni MD [id number] 12/24/2018 10:40:00 12/24/2018 23:59:59 DIS Outpatient LINDA SAHNI [facility] [id number] 08/26/2018 07:22:56 08/26/2018 23:59:59 DIS Outpatient DANAY SORIA V [facility] [id number] 05/30/2018 08:41:17 05/30/2018 23:59:59 DIS Outpatient LINDA SAHNI [facility] RAD [id number] 04/25/2018 12:24:37 04/25/2018 23:59:59 CLS Preadmit LINDA SAHNI [facility] Surgery ops [id number] 11/13/2018 14:34:59 Document Registration [id number] 08/06/2018 13:35:03 Document Registration [id number] 07/05/2018 09:35:35 ACT V AMADOU ROBERT [facility] MS [id number] 06/18/2018 06:13:13 Inpatient LINDA SAHNI [facility] MS ops [id number] 01/08/2019 17:11:00 01/08/2019 20:40:00 DIS Outpatient POLA WEBB DO [facility] FS CHEST PAIN, SOB [id number] 01/06/2019 21:51:00 01/07/2019 01:32:00 DIS Emergency POLA WEBB DO [facility] FS MENTAL HEALTH EVAL [id number] 01/05/2019 19:25:00 01/05/2019 20:17:00 DIS Emergency TARIK GEORGE DO [facility] FS RIGHT SIDE PAIN [id number] 01/04/2019 19:17:00 01/04/2019 21:13:00 DIS Outpatient JAZIEL WONG DO [facility] FS RIGHT SIDE PAIN [id number] 01/02/2019 04:59:00 01/02/2019 05:55:00 DIS Emergency JAZIEL WONG DO [facility] FS RIGHT SIDE PAIN [id number] 12/21/2018 17:59:00 12/21/2018 19:50:00 DIS Emergency DIANE DELCID MD [facility] FS SOB,VAGINAL PAIN [id number] 12/14/2018 14:21:00 12/14/2018 16:45:00 DIS Emergency LUCÍA FUENTES MD [facility] FS ABD PAIN,VAGINAL PAIN FROM CATHETER [id number] 12/12/2018 13:47:00 12/12/2018 23:59:59 CLS Outpatient JERI BATEMAN, MANASA Funes [facility] RAD FS R10.84 GEN ABD PAIN [id number] 11/29/2018 08:34:00 11/29/2018 16:55:00 DIS Emergency DIANE DELCID MD [facility] FS URINARY RETENTION [id number] 11/14/2018 21:43:00 11/14/2018 23:23:00 DIS Emergency DANIEL HERNANDEZ MD [facility] FS BLOOD SUGAR ISSUES [id number] 11/06/2018 17:40:00 11/07/2018 01:30:00 DIS Emergency JAME CULVER DO [facility] FS SOB,CHEST PAIN [id number] 10/30/2018 20:30:00 10/31/2018 00:33:00 DIS Emergency DIANE DELCID MD [facility] FS SOB, HIGH BLOOD SUGAR, ABD SORE [id number] 10/16/2018 22:53:00 10/17/2018 00:25:00 DIS Emergency DIANE DELCID MD [facility] FS CHEST PAINS [id number] 10/13/2018 17:02:00 10/13/2018 20:45:00 DIS Emergency DANIEL HERNANDEZ MD [facility] FS CHEST PAIN,SOB [id number] 09/18/2018 20:56:00 09/19/2018 07:30:00 DIS Emergency KAPIL BLANCA NOEL Osorio [facility] FS HIGH BLOOD SUGAR, SOB [id number] 09/12/2018 14:20:00 09/12/2018 15:56:00 DIS Emergency DANIEL HERNANDEZ MD [facility] ER FS FALL; RT HIP/MI WRIST INJ [id number] 01/10/2019 19:58:00 ACT Emergency DIANE DELCID MD [facility] FS SEVERE RT SIDE ABD PAIN;SOB [id number] 01/09/2019 17:40:00 ACT Outpatient MANASA WILCOX [facility] [id number] 12/30/2018 16:30:00 Document Registration [id number] 12/30/2018 14:39:00 Document Registration [id number] 12/18/2018 12:00:00 Document Registration [id number] 10/07/2018 13:15:00 Document Registration [id number] 09/25/2018 09:45:00 Document Registration [id number] 04/14/2014 08:59:00 04/14/2014 11:05:00 DIS Outpatient HEATHER IRVIN APRN [id number] 02/10/2014 09:57:00 02/10/2014 23:59:59 CLS Outpatient HEATHER IRVIN APRN [id number] 02/10/2014 09:57:00 02/10/2014 23:59:59 CLS Outpatient HEATHER IRVIN APRN [id number] 12/12/2013 10:38:00 12/12/2013 23:59:59 CLS Outpatient HEATHER IRVIN APRN [id number] 10/07/2013 14:37:00 10/13/2013 20:05:00 DIS Outpatient HEATHER IRVIN APRN [id number] 10/07/2013 14:37:00 10/07/2013 23:59:59 CLS Outpatient HEATHER IRVIN APRN [id number] 08/11/2013 10:11:00 08/11/2013 13:49:00 DIS Outpatient BRANDEE KYLE [facility]ATH[facility] [id number] 05/08/2013 09:56:00 05/08/2013 23:59:59 CLS Outpatient MARIANNA FAUST APRN [id number] 01/08/2013 08:25:00 01/08/2013 23:59:59 CLS Outpatient MARIANNA FAUST APRN [id number] 10/15/2014 15:34:45 10/15/2014 23:59:00 DIS Outpatient SONY CAMPO [facility] [id number] 08/12/2014 12:31:00 08/12/2014 14:34:00 DIS Emergency [facility] FED [id number] 06/21/2014 16:47:00 06/21/2014 17:52:00 DIS Emergency [facility] FED [id number] 09/02/2014 00:00:00 Document Registration
[2019-01-10] MEDS ORDERED: KETOROLAC 30 MG/ML VIAL IM STA (21:35)
[2019-01-10] MEDS ORDERED: RX-HYDROCODONE/APAP 5/325 MG #4 TAB PK PO PRN (21:45)
--- NOTE | 2019-01-10 21:46 | ED General ---
General Chief Complaint: Abdominal/GI Problems Stated Complaint: SEVERE RT SIDE ABD PAIN;SOB Nursing Triage Note: PT COMPLAINING OF RUQ PAIN THAT HAS BEEN GOING ON SINCE THE OF THIS MONTH. PT HAS BEEN SEEN MULTIPLE TIMES FOR THIS PROBLEM. PT STATES SHE IS OUT OF TRAMADOL AND HAS NOTHING TO TAKE FOR PAIN Nursing Sepsis Screen: No Definite Risk Source of Information: Patient, Old Records History of Present Illness Date Seen by Provider: Jan 10, 2019 Time Seen by Provider: 20:34 Initial Comments 53 yo F presenting to the ED with recurrent pain to Right flank. She has been seen almost daily for the same complaints in the last 7-8 days. She has had multiple labs and imaging studies, with most recent testing on SundayJanuary 08 that did not show any acute pathology to account for her symptoms. At that time according to the notes she was supposed to follow up with PCP for pain management or have Urology or Gastroenterology look into other reasons for her pain and that the ED was not able to locate her pain other than ruling out the life threatening sources. She claims that nobody had reviewed the test results and imaging with her on Sunday and so she had still had anxiety about what was going on for her pain. She was still having pain and is out of her pain medicine. She had recurrent pain tonight when she went to stand up and it was again in right flank and under her ribs on right side. She called EMS and they evaluated her and her VS were good and she chose to come by POV rather than take an ambulance. She has had no F/C, increased cough, change in bowels. She still has urinary frequency but that has been chronic and is following up with Dr. Sahni for that with Urology. Allergies and Home Medications Allergies Coded Allergies: No Known Drug Allergies (Unverified , 10/16/18) Home Medications Amoxicillin/Potassium Clav 1 Each Tablet, 1 EACH PO BID Prescribed by: JAZIEL WONG on 01/02/19 0545 Cephalexin 250 Mg Capsule, 250 MG PO BID Prescribed by: LUCÍA FUENTES on 12/14/18 1652 Fluconazole 100 Mg Tablet, 100 MG PO Q72 Prescribed by: JAZIEL WONG on 01/02/19 0545 Fluconazole 200 Mg Tablet, 200 MG PO DAILY Prescribed by: POLA WEBB on 01/06/19 3092 Hydrocodone/Acetaminophen 1 Each Tablet, 1 TAB PO Q4-6HR Prescribed by: JAZIEL WONG on 01/04/192107 Hyoscyamine Sulfate 0.125 Mg Tab.subl, 0.125 MG SL Q4H PRN for bladder s pasm/pain Prescribed by: DIANE DELCID on 12/21/181932 Levofloxacin 750 Mg Tablet, 750 MG PO DAILY Prescribed by: LUCÍA FUENTES on 12/14/181635 Oxycodone HCl/Acetaminophen 1 Each Tablet, 1 TAB PO Q4H PRN for PAIN-MODERATE Prescribed by: LUCÍA FUENTES on 12/14/18 163 Oxycodone HCl/Acetaminophen 1 Each Tablet, 1 EACH PO Q4H PRN for PAIN-SEVERE Prescribed by: DIANE DELCID on 12/21/181932 Phenazopyridine HCl 200 Mg Tablet, 1 TAB PO TID Prescribed by: JAZIEL WONG on 01/02/19 0545 Patient Home Medication List Home Medication List Reviewed: Yes Review of Systems Review of Systems Constitutional: see HPI EENTM: no symptoms reported Respiratory: see HPI Cardiovascular: no symptoms reported Gastrointestinal: see HPI Genitourinary: see HPI Musculoskeletal: no symptoms reported Skin: no symptoms reported Psychiatric/Neurological: Anxiety Hematologic/Lymphatic: No Symptoms Reported Past Hghgjdb-Nyigqp-Adfrim Hx Past Med/Social Hx: Reviewed Nursing Past Med/Soc Hx Patient Social History Alcohol Use: Denies Use Recreational Drug Use: No Drug of Choice: marijuana Type Used: Cigarettes 2nd Hand Smoke Exposure: Yes Recent Foreign Travel: No Contact w/Someone Who Travel: No Recent Infectious Disease Expo: No Recent Hopitalizations: No Seasonal Allergies Seasonal Allergies: No Past Medical History Surgeries: Yes Abdominal, Hysterectomy, Nephrectomy, Tonsillectomy, Tubal Ligation Respiratory: Yes Asthma Currently Using CPAP: No Currently Using BIPAP: No Cardiac: No Hypertension Neurological: No BASE PLY HAND History: Hysterectomy Genitourinary: Yes (Cancer of the kidney which was removed.) Kidney Infection, Kidney Stones Gastrointestinal: No Musculoskeletal: No Endocrine: Yes Diabetes, Non-Insulin dep HEENT: No Cancer: Yes Kidney Did You Recieve Any Treatments: Yes What Type of Treatment Did You: Chemotherapy, Surgical Intervention Psychosocial: Yes Sleep Difficulties Integumentary: Yes (Pt. has multiple lesions on her abd and under the folds.) Blood Disorders: No Adverse Reaction/Blood Tranf: No Physical Exam Vital Signs Vital Signs - First Documented 01/10/19 20:05 Temp 97.4 Pulse 110 Resp 20 B/P (MAP) 144/76 (98) Pulse Ox 95 O2 Delivery Room Air Capillary Refill : Less Than 3 Seconds Height, Weight, BMI Height: 5'7.00" Weight: 228lbs. 0oz. 103.026504mk; BMI Method:Stated General Appearance: WD/WN, Anxious, Chronically ill, Obese HEENT: PERRL/EOMI, Pharynx Normal, Moist Mucous Membranes Respiratory: Chest Non Tender, Lungs Clear, Normal Breath Sounds, No Accessory Muscle Use, No Respiratory Distress Cardiovascular: Regular Rate, Rhythm, Normal Peripheral Pulses Gastrointestinal: Normal Bowel Sounds, No Pulsatile Mass, Soft, Tenderness (mild tenderness to RUQ and flank but no guarding or rebound and no mass palpated) Rectal: Deferred Extremity: Non Tender, No Calf Tenderness, No Pedal Edema Neurologic/Psychiatric: Alert, Oriented x3, No Motor/Sensory Deficits Skin: Warm/Dry Progress/Results/Core Measures Suspected Sepsis Recent Fever Within 48 Hours: No Infection Criteria Present: Suspected New Infection New/Unexplained Altered Menta: No Sepsis Screen: No Definite Risk SIRS Temperature:97.4 Pulse: 110 Respiratory Rate: 20 Blood Pressure 144 /76 Mean: 98 Results/Orders My Orders Orders - DIANE DELCID MD Ketorolac Injection (Toradol Injection) (01/10/19 21:35) Rx-Hydrocodone/Apap 5-325 Mg (Rx-Vicodin (01/10/19 21:45) Vital Signs/I&O Capillary Refill : Less Than 3 Seconds Blood Pressure Mean: 98 Progress Note : Progress Note Reviewed results of testing from Sunday night and no significant abnormality to account for her pain and symptoms. Advised to check with the clinic and follow up for Pain management as she may need nerve block or to see GI specialist or back with Dr. Sahni for reason why she has recurrent pain. No evidence of cancer or mass in the right flank for her pain. Will have her check with clinic for follow up on Sunday but give her a take home pack of meds from here and a Toradol shot as she reports that has helped her pain before. She seemed more calm and reassured that the tests did not show anything acute. She states she was very anxious because nobody had reviewed any of her test results with her on previous visit and I had helped to calm those fears by going over those most recent results with her. Departure Impression Primary Impression: Chronic right flank pain Additional Impressions: Atelectasis of right lung Urinary frequency Disposition: 01 HOME, SELF-CARE Condition: Stable Departure-Patient Inst. Decision time for Depature: 21:43 Referrals: MANASA WILCOX MD (PCP) Primary Care Physician PRIYA LIRIANO (Family) Primary Care Physician Patient Instructions: Flank Pain (DC), Chronic Pain (DC) Add. Discharge Instructions: Follow up with Dr. Wilcox and have him help you get in with Pain management or find other ways to manage your pain in the right flank since the testing in the ER has not found any source. He will need to help you find other ways to evaluate this pain since the tests in the ER have reached their limits and are not showing anything emergent. Try the pain medicine 1/2 to 1 pill every 8 hours as needed for severe pain over the weekend until you can see Dr. Wilcox or someone from the clinic Sunday All discharge instructions reviewed with patient and/or family. Voiced understanding. DIANE DELCID MD Jan 10, 2019 21:46
[2019-01-10 21:49] VITALS: BP 144/76
== END 2019-01-10 21:53 | disposition home or self-care (01) ==
LOC: EDUNIT# 19:57 → ER FS 19:58
DX: J98.11 Atelectasis (principal); R10.11 Right upper quadrant pain; G89.29 Other chronic pain; R35.0 Frequency of micturition; F41.9 Anxiety disorder, unspecified; J45.909 Unspecified asthma, uncomplicated; I10 Essential (primary) hypertension; E11.9 Type 2 diabetes mellitus without complications; Z85.528 Personal history of other malignant neoplasm of kidney; Z91.14 Patient's other noncompliance with medication regimen; Z87.442 Personal history of urinary calculi; Z77.22 Contact with and (suspected) exposure to environmental tobacco smoke (acute) (chronic); Z90.710 Acquired absence of both cervix and uterus; Z90.89 Acquired absence of other organs; Z98.51 Tubal ligation status; Z90.5 Acquired absence of kidney
CPT/HCPCS: 99284

== ENCOUNTER 2019-01-11 15:05 | Emergency (ER) | payer MEDICARE, MEDICAID ==
[~2019-01-11] VITALS: Ht 170.2 cm; Wt 103.4 kg
--- OUTSIDE RECORDS SUMMARY | 2019-01-11 15:24 | XMS REPORT | Continuity of Care Document ---
Demographics Preferred Language Unknown Marital Status Unknown [employer]ar[employer] Affiliation Unknown Race Unknown Ethnic Group Unknown Author Organization Unknown Address Unknown Allergies Active Description Code Type Severity Reaction Onset Reported/Identified Relationship to Patient Clinical Status Yes No Known Medication Allergies Drug N/A N/A Yes No Known Drug Allergies [id number] Drug Allergy Unknown N/A 10/16/2018 Medications There is no data. Problems Date Dx Coded Attending Type Code Diagnosis Diagnosed By 07/05/2010 [facility] SHRINKER, HEATHER 278.01 OBESITY MORBID 07/05/2010 [facility] SHRINKER, HEATHER 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, Unspecified 07/05/2010 [facility] SHRINKER, HEATHER V15.82 TOBACCOISM 07/05/2010 [facility] SHRINKER, HEATHER 278.01 OBESITY MORBID 07/05/2010 [facility] SHRINKER, HEATHER 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, Unspecified 07/05/2010 [facility] SHRINKER, HEATHER V15.82 TOBACCOISM 07/05/2010 [facility] SHRINKER, HEATHER 278.01 OBESITY MORBID 07/05/2010 [facility] SHRINKER, HEATHER 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, Unspecified 07/05/2010 [facility] SHRINKER, HEATHER V15.82 TOBACCOISM 07/05/2010 [facility] SHRINKER, HEATHER 278.01 OBESITY MORBID 07/05/2010 [facility] SHRINKER, HEATHER 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, Unspecified 07/05/2010 [facility], HEATHER V15.82 TOBACCOISM 07/05/2010 [facility] SHRINKER, HEATHER 278.01 OBESITY MORBID 07/05/2010 [facility] SHRINKER, HEATHER 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, Unspecified 07/05/2010 [facility] SHRINKER, HEATHER V15.82 TOBACCOISM 07/05/2010 [facility] SHRINKER, HEATHER 278.01 OBESITY MORBID 07/05/2010 [facility] SHRINKER, HEATHER 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, Unspecified 07/05/2010 [facility] SHRINKER, HEATHER V15.82 TOBACCOISM 07/05/2010 [facility] SHRINKER, HEATHER 278.01 OBESITY MORBID 07/05/2010 [facility] SHRINKER, HEATHER 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, Unspecified 07/05/2010 [facility] SHRINKER, HEATHER V15.82 TOBACCOISM 07/05/2010 [facility] SHRINKER, MARIANNA 278.01 OBESITY MORBID 07/05/2010 [facility] SHRINKER, MARIANNA 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, Unspecified 07/05/2010 [facility] SHRINKER, MARIANNA V15.82 TOBACCOISM 07/05/2010 [facility] SHRINKER, MARIANNA 278.01 OBESITY MORBID 07/05/2010 [facility] SHRINKER, MARIANNA 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, Unspecified 07/05/2010 [facility] SHRINKER, MARIANNA V15.82 TOBACCOISM 07/07/2010 [facility] SHRINKER, HEATHER 280.9 Anemia Hypochromic / Microcytic 07/07/2010 [facility] SHRINKER, HEATHER 796.2 Prehypertension 07/07/2010 [facility] SHRINKER, HEATHER V04.81 Influenza Vaccine 07/07/2010 [facility] SHRINKER, HEATHER V68.89 Encounters For Other Specified Administrative Purpose 07/07/2010 [facility] SHRINKER, HEATHER V72.31 Routine Pelvic Exam 07/07/2010 [facility] SHRINKER, HEATHER 280.9 Anemia Hypochromic / Microcytic 07/07/2010 [facility] SHRINKER, HEATHER 796.2 Prehypertension 07/07/2010 [facility] SHRINKER, HEATHER V04.81 Influenza Vaccine 07/07/2010 [facility] SHRINKER, HEATHER V68.89 Encounters For Other Specified Administrative Purpose 07/07/2010 [facility] SHRINKER, HEATHER V72.31 Routine Pelvic Exam 07/07/2010 [facility] SHRINKER, HEATHER 280.9 Anemia Hypochromic / Microcytic 07/07/2010 [facility] SHRINKER, HEATHER 796.2 Prehypertension 07/07/2010 [facility] SHRINKER, HEATHER V04.81 Influenza Vaccine 07/07/2010 [facility] SHRINKER, HEATHER V68.89 Encounters For Other Specified Administrative Purpose 07/07/2010 [facility] SHRINKER, HEATHER V72.31 Routine Pelvic Exam 07/07/2010 [facility] SHRINKER, HEATHER 280.9 Anemia Hypochromic / Microcytic 07/07/2010 [facility] SHRINKER, HEATHER 796.2 Prehypertension 07/07/2010 [facility] SHRINKER, HEATHER V04.81 Influenza Vaccine 07/07/2010 [facility] SHRINKER, HEATHER V68.89 Encounters For Other Specified Administrative Purpose 07/07/2010 [facility] SHRINKER, HEATHER V72.31 Routine Pelvic Exam 07/07/2010 [facility] SHRINKER, HEATHER 280.9 Anemia Hypochromic / Microcytic 07/07/2010 [facility] SHRINKER, HEATHER 796.2 Prehypertension 07/07/2010 [facility] SHRINKER, HEATHER V04.81 Influenza Vaccine 07/07/2010 [facility] SHRINKER, HEATHER V68.89 Encounters For Other Specified Administrative Purpose 07/07/2010 [facility] SHRINKER, HEATHER V72.31 Routine Pelvic Exam 07/07/2010 [facility] SHRINKER, HEATHER 280.9 Anemia Hypochromic / Microcytic 07/07/2010 [facility] SHRINKER, HEATHER 796.2 Prehypertension 07/07/2010 [facility] SHRINKER, HEATHER V04.81 Influenza Vaccine 07/07/2010 [facility] SHRINKER, HEATHER V68.89 Encounters For Other Specified Administrative Purpose 07/07/2010 [facility] SHRINKER, HEATHER V72.31 Routine Pelvic Exam 07/07/2010 [facility] SHRINKER, HEATHER 280.9 Anemia Hypochromic / Microcytic 07/07/2010 [facility] SHRINKER, HEATHER 796.2 Prehypertension 07/07/2010 [facility] SHRINKER, HEATHER V04.81 Influenza Vaccine 07/07/2010 [facility] SHRINKER, HEATHER V68.89 Encounters For Other Specified Administrative Purpose 07/07/2010 [facility] SHRINKER, HEATHER V72.31 Routine Pelvic Exam 07/07/2010 [facility] SHRINKER, MARIANNA 280.9 Anemia Hypochromic / Microcytic 07/07/2010 [facility] SHRINKER, MARIANNA 796.2 Prehypertension 07/07/2010 [facility] SHRINKER, MARIANNA V04.81 Influenza Vaccine 07/07/2010 [facility] SHRINKER, MARIANNA V68.89 Encounters For Other Specified Administrative Purpose 07/07/2010 [facility] SHRINKER, MARIANNA V72.31 Routine Pelvic Exam 07/07/2010 [facility] SHRINKER, MARIANNA 280.9 Anemia Hypochromic / Microcytic 07/07/2010 [facility] SHRINKEREN SunshineE 796.2 Prehypertension 07/07/2010 [facility] SHRINKERMARIANNA Sunshine V04.81 Influenza Vaccine 07/07/2010 [facility] SHRINKERMARIANNA Sunhsine V68.89 Encounters For Other Specified Administrative Purpose 07/07/2010 [facility] SHRINKERMARIANNA V72.31 Routine Pelvic Exam 10/20/2010 [facility] SHRINKER, HEATHER 112.1 Candidiasis, Of Vulva And Vagina 10/20/2010 [facility] SHRINKER, HEATHER 599.0 Uti 10/20/2010 [facility] SHRINKER, HEATHER 112.1 Candidiasis, Of Vulva And Vagina 10/20/2010 [facility] SHRINKER, HEATHER 599.0 Uti 10/20/2010 [facility] SHRINKER, HEATHER 112.1 Candidiasis, Of Vulva And Vagina 10/20/2010 [facility] SHRINKER, HEATHER 599.0 Uti 10/20/2010 [facility] SHRINKER, HEATHER 112.1 Candidiasis, Of Vulva And Vagina 10/20/2010 [facility] SHRINKER, HEATHER 599.0 Uti 10/20/2010 [facility] SHRINKER, HEATHER 112.1 Candidiasis, Of Vulva And Vagina 10/20/2010 [facility] SHRINKER, HEATHER 599.0 Uti 10/20/2010 [facility] SHRINKER, HEATHER 112.1 Candidiasis, Of Vulva And Vagina 10/20/2010 [facility] SHRINKER, HEATHER 599.0 Uti 10/20/2010 [facility] SHRINKER, HEATHER 112.1 Candidiasis, Of Vulva And Vagina 10/20/2010 [facility] SHRINKER, HEATHER 599.0 Uti 10/20/2010 [facility] SHRINKER, MARIANNA 112.1 Candidiasis, Of Vulva And Vagina 10/20/2010 [facility] SHRINKER, MARIANNA 599.0 Uti 10/20/2010 [facility] SHRINKER, MARIANNA 112.1 Candidiasis, Of Vulva And Vagina 10/20/2010 [facility] SHRINKER, MARIANNA 599.0 Uti 10/24/2010 [facility] SHRINKER, HEATHER 250.00 DIABETES MELLITUS TYPE 2 10/24/2010 [facility] SHRINKER, HEATHER 466.0 Bronchitis, Acute 10/24/2010 [facility] SHRINKER, HEATHER 496 PULMONARY OBSTRUCTIVE DISORDERS 10/24/2010 [facility] SHRINKER, HEATHER 250.00 DIABETES MELLITUS TYPE 2 10/24/2010 [facility] SHRINKER, HEATHER 466.0 Bronchitis, Acute 10/24/2010 [facility] SHRINKER, HEATHER 496 PULMONARY OBSTRUCTIVE DISORDERS 10/24/2010 [facility] SHRINKER, HEATHER 250.00 DIABETES MELLITUS TYPE 2 10/24/2010 [facility] SHRINKER, HEATHER 466.0 Bronchitis, Acute 10/24/2010 [facility] SHRINKER, HEATHER 496 PULMONARY OBSTRUCTIVE DISORDERS 10/24/2010 [facility] SHRINKER, HEATHER 250.00 DIABETES MELLITUS TYPE 2 10/24/2010 [facility] SHRINKER, HEATHER 466.0 Bronchitis, Acute 10/24/2010 [facility] SHRINKER, HEATHER 496 PULMONARY OBSTRUCTIVE DISORDERS 10/24/2010 [facility] SHRINKER, HEATHER 250.00 DIABETES MELLITUS TYPE 2 10/24/2010 [facility] SHRINKER, HEATHER 466.0 Bronchitis, Acute 10/24/2010 [facility] SHRINKER, HEATHER 496 PULMONARY OBSTRUCTIVE DISORDERS 10/24/2010 [facility] SHRINKER, HEATHER 250.00 DIABETES MELLITUS TYPE 2 10/24/2010 [facility] SHRINKER, HEATHER 466.0 Bronchitis, Acute 10/24/2010 [facility] SHRINKER, HEATHER 496 PULMONARY OBSTRUCTIVE DISORDERS 10/24/2010 [facility] SHRINKER, HEATHER 250.00 DIABETES MELLITUS TYPE 2 10/24/2010 [facility] SHRINKER, HEATHER 466.0 Bronchitis, Acute 10/24/2010 [facility] SHRINKER, HEATHER 496 PULMONARY OBSTRUCTIVE DISORDERS 10/24/2010 [facility] SHRINKER, MARIANNA 250.00 DIABETES MELLITUS TYPE 2 10/24/2010 [facility] SHRINKER, MARIANNA 466.0 Bronchitis, Acute 10/24/2010 [facility] SHRINKER, MARIANNA 496 PULMONARY OBSTRUCTIVE DISORDERS 10/24/2010 [facility] SHRINKER, MARIANNA 250.00 DIABETES MELLITUS TYPE 2 10/24/2010 [facility] SHRINKER, MARIANNA 466.0 Bronchitis, Acute 10/24/2010 [facility] SHRINKER, MARIANNA 496 PULMONARY OBSTRUCTIVE DISORDERS 05/12/2011 [facility] SHRINKER, HEATHER 703.0 Ingrowing Nail 05/12/2011 [facility] SHRINKER, HEATHER 726.91 EXOSTOSIS OF UNSPECIFIED SITE 05/12/2011 [facility] SHRINKER, HEATHER 703.0 Ingrowing Nail 05/12/2011 [facility] SHRINKER, HEATHER 726.91 EXOSTOSIS OF UNSPECIFIED SITE 05/12/2011 [facility] SHRINKER, HEATHER 703.0 Ingrowing Nail 05/12/2011 [facility] SHRINKER, HEATHER 726.91 EXOSTOSIS OF UNSPECIFIED SITE 05/12/2011 [facility] SHRINKER, HEATHER 703.0 Ingrowing Nail 05/12/2011 [facility] SHRINKER, HEATHER 726.91 EXOSTOSIS OF UNSPECIFIED SITE 05/12/2011 [facility] SHRINKER, HEATHER 703.0 Ingrowing Nail 05/12/2011 [facility] SHRINKER, HEATHER 726.91 EXOSTOSIS OF UNSPECIFIED SITE 05/12/2011 [facility] SHRINKER, HEATHER 703.0 Ingrowing Nail 05/12/2011 [facility] SHRINKER, HEATHER 726.91 EXOSTOSIS OF UNSPECIFIED SITE 05/12/2011 [facility] SHRINKER, HEATHER 703.0 Ingrowing Nail 05/12/2011 [facility] SHRINKER, HEATHER 726.91 EXOSTOSIS OF UNSPECIFIED SITE 05/12/2011 [facility] SHRINKER, MARIANNA 703.0 Ingrowing Nail 05/12/2011 [facility] SHRINKER, MARIANNA 726.91 EXOSTOSIS OF UNSPECIFIED SITE 05/12/2011 [facility] SHRINKER, MARIANNA 703.0 Ingrowing Nail 05/12/2011 [facility] SHRINKER, MARIANNA 726.91 EXOSTOSIS OF UNSPECIFIED SITE 06/02/2011 [facility] SHRINKER, HEATHER 078.12 Plantar Wart 06/02/2011 [facility] SHRINKER, HEATHER 078.12 Plantar Wart 06/02/2011 [facility] SHRINKER, HEATHER 078.12 Plantar Wart 06/02/2011 [facility] SHRINKER, HEATHER 078.12 Plantar Wart 06/02/2011 [facility] SHRINKER, HEATHER 078.12 Plantar Wart 06/02/2011 [facility] SHRINKER, HEATHER 078.12 Plantar Wart 06/02/2011 [facility] SHRINKER, HEATHER 078.12 Plantar Wart 06/02/2011 [facility] SHRINKER, MARIANNA 078.12 Plantar Wart 06/02/2011 [facility] SHRINKER, MARIANNA 078.12 Plantar Wart 07/05/2011 [facility] SHRINKER, HEATHER 466.0 ACUTE BRONCHITIS 07/05/2011 [facility] SHRINKER, HEATHER 466.0 ACUTE BRONCHITIS 07/05/2011 [facility] SHRINKER, HEATHER 466.0 ACUTE BRONCHITIS 07/05/2011 [facility] SHRINKER, HEATHER 466.0 ACUTE BRONCHITIS 07/05/2011 [facility] SHRINKER, HEATHER 466.0 ACUTE BRONCHITIS 07/05/2011 [facility] SHRINKER, HEATHER 466.0 ACUTE BRONCHITIS 07/05/2011 [facility] SHRINKER, HEATHER 466.0 ACUTE BRONCHITIS 07/05/2011 [facility] SHRINKER, MARIANNA 466.0 ACUTE BRONCHITIS 07/05/2011 [facility] SHRINKER, MARIANNA 466.0 ACUTE BRONCHITIS 11/20/2011 [facility] SHRINKER, HEATHER 682.9 CELLULITIS 11/20/2011 [facility] SHRINKER, HEATHER 682.9 CELLULITIS 11/20/2011 [facility] SHRINKER, HEATHER 682.9 CELLULITIS 11/20/2011 [facility] SHRINKER, HEATHER 682.9 CELLULITIS 11/20/2011 [facility] SHRINKER, HEATHER 682.9 CELLULITIS 11/20/2011 [facility] SHRINKER, HEATHER 682.9 CELLULITIS 11/20/2011 [facility] SHRINKER, HEATHER 682.9 CELLULITIS 11/20/2011 [facility] SHRINKER, MARIANNA 682.9 CELLULITIS 11/20/2011 [facility] SHRINKER, MARIANNA 682.9 CELLULITIS 12/22/2011 [facility] SHRINKER, HEATHER 401.1 ESSENTIAL HYPERTENSION BENIGN 12/22/2011 [facility] SHRINKER, HEATHER 401.1 ESSENTIAL HYPERTENSION BENIGN 12/22/2011 [facility] SHRINKER, HEATHER 401.1 ESSENTIAL HYPERTENSION BENIGN 12/22/2011 [facility] SHRINKER, HEATHER 401.1 ESSENTIAL HYPERTENSION BENIGN 12/22/2011 ALEX IRVIN APRNEN 401.1 ESSENTIAL HYPERTENSION BENIGN 12/22/2011 [facility] SHRINKERALEXEN 401.1 ESSENTIAL HYPERTENSION BENIGN 12/22/2011 [facility] ULLAON HEATHER 401.1 ESSENTIAL HYPERTENSION BENIGN 12/22/2011 [facility] SHRINKER, MARIANNA 401.1 ESSENTIAL HYPERTENSION BENIGN 12/22/2011 [facility] SHRINKER, MARIANNA 401.1 ESSENTIAL HYPERTENSION BENIGN 04/09/2012 [facility] SHRINKER, HEATHER 272.2 HYPERLIPIDEMIA 04/09/2012 [facility] SHRINKER HEATHER V04.81 Need For Prophylactic Vaccination And Inoculation Against Influenza 04/09/2012 [facility] SHRINKERHEATHER Sunshine 272.2 HYPERLIPIDEMIA 04/09/2012 [facility] SHRINKER HEATHER V04.81 Need For Prophylactic Vaccination And Inoculation Against Influenza 04/09/2012 [facility] SHRINKERHEATHER Sunshine 272.2 HYPERLIPIDEMIA 04/09/2012 [facility] SHRINKER, HEATHER V04.81 Need For Prophylactic Vaccination And Inoculation Against Influenza 04/09/2012 [facility] SHRINKERHEATHER Sunshine 272.2 HYPERLIPIDEMIA 04/09/2012 [facility] SHRINKER, HEATHER V04.81 Need For Prophylactic Vaccination And Inoculation Against Influenza 04/09/2012 [facility] SHRINKERHEATHER Sunshine 272.2 HYPERLIPIDEMIA 04/09/2012 [facility] SHRINKER, HEATHER V04.81 Need For Prophylactic Vaccination And Inoculation Against Influenza 04/09/2012 [facility] SHRINKERHEATHER Sunshine 272.2 HYPERLIPIDEMIA 04/09/2012 [facility] SHRINKER, HEATHER V04.81 Need For Prophylactic Vaccination And Inoculation Against Influenza 04/09/2012 [facility] SHRINKERHEATHER Sunshine 272.2 HYPERLIPIDEMIA 04/09/2012 [facility] SHRINKERHEATHER Sunshine V04.81 Need For Prophylactic Vaccination And Inoculation Against Influenza 04/09/2012 GOV[facility] SHRINKEREN SunshineE 272.2 HYPERLIPIDEMIA 04/09/2012 GOV[facility] SHRINKERMARIANNA Sunshine V04.81 Need For Prophylactic Vaccination And Inoculation Against Influenza 04/09/2012 GOVIND SHRINKERMARIANNA Sunshine 272.2 HYPERLIPIDEMIA 04/09/2012 GOVIND SHRINKERMARIANNA Sunshine V04.81 Need For Prophylactic Vaccination And Inoculation Against Influenza 05/14/2012 [facility] HEATHER WRIGHT 682.9 Cellulitis/abscess 05/14/2012 [facility] SHRINKER, HEATHER 682.9 Cellulitis/abscess 05/14/2012 [facility] SHRINKER, HEATHER 682.9 Cellulitis/abscess 05/14/2012 [facility] SHRINKER, HEATHER 682.9 Cellulitis/abscess 05/14/2012 [facility] SHRINKER, HEATHER 682.9 Cellulitis/abscess 05/14/2012 [facility] SHRINKER, HEATHER 682.9 Cellulitis/abscess 05/14/2012 [facility] SHRINKER, HEATHER 682.9 Cellulitis/abscess 05/14/2012 GOV[facility] SHRINKER, MARIANNA 682.9 Cellulitis/abscess 05/14/2012 GOV[facility] SHRINKER, MARIANNA 682.9 Cellulitis/abscess 06/24/2012 [facility] SHRINKER, HEATHER 112.1 Candidiasis, Of Vulva And Vagina 06/24/2012 [facility] SHRINKER, HEATHER 112.1 Candidiasis, Of Vulva And Vagina 06/24/2012 [facility] SHRINKER, HEATHER 112.1 Candidiasis, Of Vulva And Vagina 06/24/2012 [facility] SHRINKER, HEATHER 112.1 Candidiasis, Of Vulva And Vagina 06/24/2012 [facility] SHRINKER, HEATHER 112.1 Candidiasis, Of Vulva And Vagina 06/24/2012 [facility] SHRINKER, HEATHER 112.1 Candidiasis, Of Vulva And Vagina 06/24/2012 [facility] SHRINKER, HEATHER 112.1 Candidiasis, Of Vulva And Vagina 06/24/2012 GOVIND SHRINKER, MARIANNA 112.1 Candidiasis, Of Vulva And Vagina 06/24/2012 GOVIND SHRINKER, MARIANNA 112.1 Candidiasis, Of Vulva And Vagina 06/28/2012 [facility] SHRINKER, HEATHER 110.1 Onychomycosis 06/28/2012 [facility] SHRINKER, HEATHER 703.8 Other Specified Diseases Of Nail 06/28/2012 [facility] SHRINKER, HEATHER 110.1 Onychomycosis 06/28/2012 [facility] SHRINKER, HEATHER 703.8 Other Specified Diseases Of Nail 06/28/2012 [facility] SHRINKER, HEATHER 110.1 Onychomycosis 06/28/2012 [facility] SHRINKER, HEATHER 703.8 Other Specified Diseases Of Nail 06/28/2012 [facility] SHRINKER, HEATHER 110.1 Onychomycosis 06/28/2012 [facility] SHRINKER, HEATHER 703.8 Other Specified Diseases Of Nail 06/28/2012 [facility] SHRINKER, HEATHER 110.1 Onychomycosis 06/28/2012 [facility] SHRINKER, HEATHER 703.8 Other Specified Diseases Of Nail 06/28/2012 [facility] SHRINKER, HEATHER 110.1 Onychomycosis 06/28/2012 [facility] SHRINKER, HEATHER 703.8 Other Specified Diseases Of Nail 06/28/2012 [facility] SHRINKER, HEATHER 110.1 Onychomycosis 06/28/2012 [facility] SHRINKER, HEATHER 703.8 Other Specified Diseases Of Nail 06/28/2012 GOVIND SHRINKER, MARIANNA 110.1 Onychomycosis 06/28/2012 GOVIND SHRINKER, MARIANNA 703.8 Other Specified Diseases Of Nail 06/28/2012 GOVIND SHRINKER, MARIANNA 110.1 Onychomycosis 06/28/2012 GOVIND SHRINKER, MARIANNA 703.8 Other Specified Diseases Of Nail 08/21/2012 [facility] SHRINKER, HEATHER 682.9 Cellulitis/abscess 08/21/2012 [facility] SHRINKER, HEATHER V72.31 Gynecological Exam 08/21/2012 [facility] SHRINKER, HEATHER 682.9 Cellulitis/abscess 08/21/2012 [facility] SHRINKER, HEATHER V72.31 Gynecological Exam 08/21/2012 [facility] SHRINKER, HEATHER 682.9 Cellulitis/abscess 08/21/2012 [facility] SHRINKER, HEATHER V72.31 Gynecological Exam 08/21/2012 [facility] SHRINKER, HEATHER 682.9 Cellulitis/abscess 08/21/2012 [facility] SHRINKER, HEATHER V72.31 Gynecological Exam 08/21/2012 [facility] SHRINKER, HEATHER 682.9 Cellulitis/abscess 08/21/2012 [facility] SHRINKER, HEATHER V72.31 Gynecological Exam 08/21/2012 [facility] SHRINKER, HEATHER 682.9 Cellulitis/abscess 08/21/2012 [facility] SHRINKER, HEATHER V72.31 Gynecological Exam 08/21/2012 [facility] SHRINKER, HEATHER 682.9 Cellulitis/abscess 08/21/2012 [facility] SHRINKER, HEATHER V72.31 Gynecological Exam 08/21/2012 GOVIND SHRINKER, MARIANNA 682.9 Cellulitis/abscess 08/21/2012 GOVIND SHRINKER, MARIANNA V72.31 Gynecological Exam 08/21/2012 GOVIND SHRINKER, MARIANNA 682.9 Cellulitis/abscess 08/21/2012 GOVIND SHRINKER, MARIANNA V72.31 Gynecological Exam 10/08/2012 [facility] SHRINKER, HEATHER 466.0 Bronchitis, Acute 10/08/2012 [facility] SHRINKER, HEATHER 466.0 Bronchitis, Acute 10/08/2012 [facility] SHRINKER, HEATHER 466.0 Bronchitis, Acute 10/08/2012 [facility] SHRINKER, HEATHER 466.0 Bronchitis, Acute 10/08/2012 [facility] SHRINKER, HEATHER 466.0 Bronchitis, Acute 10/08/2012 [facility] SHRINKER, HEATHER 466.0 Bronchitis, Acute 10/08/2012 [facility] SHRINKER, HEATHER 466.0 Bronchitis, Acute 10/08/2012 GOVIND SHRINKER, MARIANNA 466.0 Bronchitis, Acute 10/08/2012 GOVIND SHRINKER, MARIANNA 466.0 Bronchitis, Acute 12/05/2012 [facility] SHRINKER, HEATHER 599.0 Uti 12/05/2012 [facility] SHRINKER, HEATHER 599.0 Uti 12/05/2012 [facility] SHRINKER, HEATHER 599.0 Uti 12/05/2012 [facility] SHRINKER, HEATHER 599.0 Uti 12/05/2012 [facility] SHRINKER, HEATHER 599.0 Uti 12/05/2012 [facility] SHRINKER, HEATHER 599.0 Uti 12/05/2012 [facility] SHRINKER, HEATHER 599.0 Uti 12/05/2012 GOVIND SHRINKER, MARIANNA 599.0 Uti 12/05/2012 GOVIND SHRINKER, MARIANNA 599.0 Uti 05/21/2013 [facility] SHRINKER, HEATHER 285.9 ANEMIA, UNSPECIFIED 05/21/2013 [facility] SHRINKER, HEATHER 285.9 ANEMIA, UNSPECIFIED 05/21/2013 [facility] SHRINKER, HEATHER 285.9 ANEMIA, UNSPECIFIED 05/21/2013 [facility] SHRINKER, HEATHER 285.9 ANEMIA, UNSPECIFIED 05/21/2013 [facility] SHRINKER, HEATHER 285.9 ANEMIA, UNSPECIFIED 05/21/2013 [facility] SHRINKER, HEATHER 285.9 ANEMIA, UNSPECIFIED 05/21/2013 [facility] SHRINKER, HEATHER 285.9 ANEMIA, UNSPECIFIED 05/21/2013 GOVIND SHRINKER, MARIANNA 285.9 ANEMIA, UNSPECIFIED 08/07/2013 [facility] SHRINKER, HEATHER 682.5 CELLULITIS AND ABSCESS OF BUTTOCK 08/07/2013 BRAN[facility]E SHRINKER, HEATHER 682.5 CELLULITIS AND ABSCESS OF BUTTOCK 08/07/2013 [facility]E SHRINKER, HEATHER 682.5 CELLULITIS AND ABSCESS OF BUTTOCK 08/07/2013 BRAN[facility]E SHRINKER, HEATHER 682.5 CELLULITIS AND ABSCESS OF BUTTOCK 08/07/2013 BRAN[facility]E SHRINKER, HEATHER 682.5 CELLULITIS AND ABSCESS OF BUTTOCK 08/07/2013 BR[facility]E SHRINKER, HEATHER 682.5 CELLULITIS AND ABSCESS OF BUTTOCK 08/07/2013 [facility]E SHRINKER, HEATHER 682.5 CELLULITIS AND ABSCESS OF BUTTOCK 12/12/2013 [facility] SHRINKER, HEATHER 250.02 DIABETES MELLITUS WITHOUT MENTION OF COMPLICATION TYPE II OR UNSPECIFIED TYPE UNCONTROLLED 12/12/2013 [facility] SHRINKER, HEATHER 250.02 DIABETES MELLITUS WITHOUT MENTION OF COMPLICATION TYPE II OR UNSPECIFIED TYPE UNCONTROLLED 12/12/2013 [facility] SHRINKER, HEATHER 250.02 DIABETES MELLITUS WITHOUT MENTION OF COMPLICATION TYPE II OR UNSPECIFIED TYPE UNCONTROLLED 12/12/2013 BRANDEE SHRINKER, HEATHER 250.02 DIABETES MELLITUS WITHOUT MENTION OF [...] DANIEL HERNANDEZ MD, Ot S66.911A [facility] S/HND 09/13/2018 DANIEL HERNANDEZ [...] Z90.5 ACQUIRED ABSENCE OF KIDNEY 11/29/2018 DIANE DLECID MD Ot Z90.710 ACQUIRED ABSENCE OF BOTH [...] Ot J45.909 UNSPECIFIED ASTHMA, UNCOMPLICATED 12/02/2018 DIANE EDLCID MD, Ot N17.9 ACUTE KIDNEY FAILURE, UNSPECIFIED [...] Ot F31.9 BIPOLAR DISORDER, UNSPECIFIED 12/17/2018 LUCÍA FUENETS MD, Ot I10 ESSENTIAL (PRIMARY) HYPERTENSION 12/17/2018 [...] 2 DIABETES MELLITUS WITHOUT COMPLIC 01/05/2019 TARIK GEORGE DO Ot I10 ESSENTIAL (PRIMARY) HYPERTENSION 01/05/2019 [...] Procedures Code Description [place] [address] GLUCOSE 05/08/2013 41090 HEMOGLOBIN A1C 05/08/2013 G0008 ADMIN FEE (MEDICARE) INFLUENZA 05/14/2013 74005 CBC - CBC WITH DIFF - LC 05/15/2013 18403 COMP - COMPREHENSIVE PANEL - LC 05/15/2013 12287 LIPID - LIPID PANEL - LC 05/15/2013 42550 TSH - TSH - LC 05/15/2013 10372 MALB - MICROALBUMIN - LC 05/15/2013 13725 GLUCOSE 08/11/2013 81662 HEMOGLOBIN A1C 08/11/2013 25404 CBC WITH DIFF 08/12/2013 49446 GLUCOSE 10/07/2013 4000F TOBACCO USE TXMNT COUNSELING 10/13/2013 89833 PULSE OXIMETRY 12/12/2013 A4614 PEAK FLOW 12/12/2013 63371 GLUCOSE 12/12/2013 32878 HEMOGLOBIN A1C 12/12/2013 Pulmonary Pulmonary Function Test 01/13/2014 A4614 PEAK FLOW 02/10/2014 10106 PULSE OXIMETRY 02/10/2014 01043 GLUCOSE 02/10/2014 Endocrino Endocrinology 02/13/2014 Pulmonary Pulmonology, Pulmonology 03/13/2014 64371 PULSE OXIMETRY 04/14/2014 A4614 PEAK FLOW 04/14/2014 [...] 7-25 CREATININE 0.90 mg/dL 0.50-1.05 eGFR NON-AFR. [place] 74 mL/min/1.73m2 > OR=60 eGFR 86 mL/min/1.73m2 [...] culture - 11/06/18 18:55 Bacterial blood culture [facility] Influenza virus A and B antigen detection - 11/06/18 18:59 FLU RESULT NEGATIVE FOR INFLUENZA A AND B ANTIGENS BY [facility] Bacterial blood culture - 11/06/18 19:08 Bacterial blood culture [facility] Capillary blood glucose measurement by [...] culture - 01/04/19 19:30 Bacterial urine culture [id number] NRG COLONY COUNT 30,000 CFU/ML NRG Complete [...] culture - 01/04/19 20:35 Bacterial urine culture [id number] NRG COLONY COUNT . NRG FTX;REPORTABLE <10,000 [...] Status Pt. Type Provider Facility Loc./Unit Complaint [id number] 10/30/2018 17:22:00 Document Registration [id number] 10/30/2018 17:22:00 Document Registration [email or web address] 01/02/2019 02:27:02 ACT Document Registration [id number] 01/10/2019 13:33:01 ACT Unknown Halle Sahni MD [id number] 12/24/2018 10:40:00 12/24/2018 23:59:59 DIS Outpatient LINDA SAHNI [facility] [id number] 08/26/2018 07:22:56 08/26/2018 23:59:59 DIS Outpatient DANAY SORIA V [facility] [id number] 05/30/2018 08:41:17 05/30/2018 23:59:59 DIS Outpatient LINDA SAHNI [facility] [id number] 04/25/2018 12:24:37 04/25/2018 23:59:59 CLS Preadmit LINDA SAHNI [facility] Surgery ops [id number] 11/13/2018 14:34:59 Document Registration [id number] 08/06/2018 13:35:03 Document Registration [id number] 07/05/2018 09:35:35 ACT V AMADOU ROBERT [facility] MS [id number] 06/18/2018 06:13:13 Inpatient LINDA SAHNI [facility] MS ops [id number] 01/08/2019 17:11:00 01/08/2019 20:40:00 DIS Outpatient POLA WEBB DO [facility] ER FS CHEST PAIN, SOB [id number] 01/06/2019 21:51:00 01/07/2019 01:32:00 DIS Emergency POLA WEBB DO [facility] ER FS MENTAL HEALTH EVAL [id number] 01/05/2019 19:25:00 01/05/2019 20:17:00 DIS Emergency TARIK GEORGE DO [facility] ER FS RIGHT SIDE PAIN [id number] 01/04/2019 19:17:00 01/04/2019 21:13:00 DIS Outpatient JAZIEL WONG DO [facility] ER FS RIGHT SIDE PAIN [id number] 01/02/2019 04:59:00 01/02/2019 05:55:00 DIS Emergency JAZIEL WONG DO [facility] ER FS RIGHT SIDE PAIN [id number] 12/21/2018 17:59:00 12/21/2018 19:50:00 DIS Emergency DIANE DELCID MD [facility] ER FS SOB,VAGINAL PAIN [id number] 12/14/2018 14:21:00 12/14/2018 16:45:00 DIS Emergency LUCÍA FUENTES MD [facility] ER FS ABD PAIN,VAGINAL PAIN FROM CATHETER [id number] 12/12/2018 13:47:00 12/12/2018 23:59:59 CLS Outpatient JERI BATEMAN, MANASA Funes [facility] RAD FS R10.84 GEN ABD PAIN [id number] 11/29/2018 08:34:00 11/29/2018 16:55:00 DIS Emergency DIANE DELCID MD [facility] ER FS URINARY RETENTION [id number] 11/14/2018 21:43:00 11/14/2018 23:23:00 DIS Emergency DANIEL HERNANDEZ MD [facility] ER FS BLOOD SUGAR ISSUES [id number] 11/06/2018 17:40:00 11/07/2018 01:30:00 DIS Emergency JAME CULVER DO [facility] ER FS SOB,CHEST PAIN [id number] 10/30/2018 20:30:00 10/31/2018 00:33:00 DIS Emergency DIANE DELCID MD [facility] ER FS SOB, HIGH BLOOD SUGAR, ABD SORE [id number] 10/16/2018 22:53:00 10/17/2018 00:25:00 DIS Emergency DIANE DELCID MD [facility] ER FS CHEST PAINS [id number] 10/13/2018 17:02:00 10/13/2018 20:45:00 DIS Emergency DANIEL HERNANDEZ MD [facility] ER FS CHEST PAIN,SOB [id number] 09/18/2018 20:56:00 09/19/2018 07:30:00 DIS Emergency KAPIL BLANCA NOEL Osorio [facility] ER FS HIGH BLOOD SUGAR, SOB [id number] 09/12/2018 14:20:00 09/12/2018 15:56:00 DIS Emergency DANIEL HERNANDEZ MD [facility] ER FS FALL; RT HIP/MI WRIST INJ [id number] 01/10/2019 19:58:00 ACT Emergency DIANE DELCID MD [facility] ER FS SEVERE RT SIDE ABD PAIN;SOB [id number] 01/09/2019 17:40:00 ACT Outpatient MANASA WILCOX [facility] [id number] 12/30/2018 16:30:00 Document Registration [id number] 12/30/2018 14:39:00 Document Registration [id number] 12/18/2018 12:00:00 Document Registration [id number] 10/07/2018 13:15:00 Document Registration [id number] 09/25/2018 09:45:00 Document Registration [id number] 04/14/2014 08:59:00 04/14/2014 11:05:00 DIS Outpatient HEATHER IRVIN APRN [id number] 02/10/2014 09:57:00 02/10/2014 23:59:59 CLS Outpatient HEATHER IRVIN APRN [id number] 02/10/2014 09:57:00 02/10/2014 23:59:59 CLS Outpatient HEATHER IRVIN APRN [id number] 12/12/2013 10:38:00 12/12/2013 23:59:59 CLS Outpatient HEATHER IRVIN APRN [id number] 10/07/2013 14:37:00 10/13/2013 20:05:00 DIS Outpatient HEATHER IRVIN APRN [id number] 10/07/2013 14:37:00 10/07/2013 23:59:59 CLS Outpatient HEATHER IRVIN APRN [id number] 08/11/2013 10:11:00 08/11/2013 13:49:00 DIS Outpatient BRANDEE KYLE HEATHER [id number] 05/08/2013 09:56:00 05/08/2013 23:59:59 CLS Outpatient MARIANNA FAUST APRN [id number] 01/08/2013 08:25:00 01/08/2013 23:59:59 CLS Outpatient MARIANNA FAUST APRN [id number] 10/15/2014 15:34:45 10/15/2014 23:59:00 DIS Outpatient SONY CAMPO [facility] [id number] 08/12/2014 12:31:00 08/12/2014 14:34:00 DIS Emergency [facility] FED [id number] 06/21/2014 16:47:00 06/21/2014 17:52:00 DIS Emergency [facility] FED [id number] 09/02/2014 00:00:00 Document Registration
--- NOTE | 2019-01-11 15:30 | ED Psychosocial ---
General Chief Complaint: Psych/Social Disorder Stated Complaint: PT STATES SHE NEEDS A MENTAL HEALTH SCREENING Source: patient Exam Limitations: no limitations History of Present Illness Date Seen by Provider: Jan 11, 2019 Time Seen by Provider: 15:15 Initial Comments Patient reports because she states she needs a mental health screening. Patient states that she just got some "tragic news" and her zxzckvwt-be-jaj is Melody after suicide attempt in the ICU. Patient reports that she has a history of mental health for depression issues. She feels like she wants to take all her medications and not continue. Patient states she called mental health, who told her to come out here for screening. Allergies and Home Medications Allergies Coded Allergies: No Known Drug Allergies (Unverified , 10/16/18) Home Medications Amoxicillin/Potassium Clav 1 Each Tablet, 1 EACH PO BID Prescribed by: JAZIEL WONG on 01/02/1943 Cephalexin 250 Mg Capsule, 250 MG PO BID Prescribed by: LUCÍA FUENTES on 12/14/18 165 Fluconazole 100 Mg Tablet, 100 MG PO Q72 Prescribed by: JAZIEL WONG on [birth year]1945 Fluconazole 200 Mg Tablet, 200 MG PO DAILY Prescribed by: POLA WEBB on 01/06/19 2248 Hydrocodone/Acetaminophen 1 Each Tablet, 1 TAB PO Q4-6HR Prescribed by: JAZIEL WONG on 01/04/19 210 Hyoscyamine Sulfate 0.125 Mg Tab.subl, 0.125 MG SL Q4H PRN for bladder spasm/pain Prescribed by: DIANE DELCID on 12/21/181932 Levofloxacin 750 Mg Tablet, 750 MG PO DAILY Prescribed by: LUCÍA FUENTES on 12/14/18 1636 Oxycodone HCl/Acetaminophen 1 Each Tablet, 1 TAB PO Q4H PRN for PAIN-MODERATE Prescribed by: LUCÍA FUENTES on 12/14/18 1634 Oxycodone HCl/Acetaminophen 1 Each Tablet, 1 EACH PO Q4H PRN for PAIN-SEVERE Prescribed by: DIANE DELCID on 12/21/181932 Phenazopyridine HCl 200 Mg Tablet, 1 TAB PO TID Prescribed by: JAZIEL WONG on 01/02/19 0545 Patient Home Medication List Home Medication List Reviewed: Yes Review of Systems Constitutional: see HPI; No chills, No fever EENTM: no symptoms reported Respiratory: no symptoms reported; No short of breath; wheezing Cardiovascular: No chest pain Gastrointestinal: No nausea, No vomiting Skin: no symptoms reported Psychiatric/Neurological: See HPI Past Thjlswm-Xeokig-Ayrhuh Hx Past Med/Social Hx: Reviewed Nursing Past Med/Soc Hx Patient Social History Drug of Choice: marijuana Type Used: Cigarettes 2nd Hand Smoke Exposure: Yes Recent Hopitalizations: No Seasonal Allergies Seasonal Allergies: No Past Medical History Surgeries: Yes Abdominal, Hysterectomy, Nephrectomy, Tonsillectomy, Tubal Ligation Respiratory: Yes Asthma Currently Using CPAP: No Currently Using BIPAP: No Cardiac: No Hypertension 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 has multiple lesions on her abd and under the folds.) Blood Disorders: No Adverse Reaction/Blood Tranf: No Physical Exam Vital Signs - First Documented 01/11/19 15:13 Temp 96.5 Pulse 88 Resp 16 B/P (MAP) 123/70 (87) Pulse Ox 94 O2 Delivery Room Air Capillary Refill : Height, Weight, BMI Height: 5'7.00" Weight: 228lbs. 0oz. 103.722639vt; BMI Method:Stated General Appearance: WD/WN, no apparent distress HEENT: PERRL/EOMI, normal ENT inspection Respiratory: chest non-tender, wheezing (Mild diffuse) Cardiovascular: normal peripheral pulses, regular rate, rhythm, no edema Gastrointestinal: soft; No distended, No guarding Neurologic/Psychiatric: alert, oriented x 3 Behavior/Eye Contact: cooperative, other (Depressed) Thoughts/Hallucinations: no apparent hallucination, other (He states she feels like she needs to take all her pills) Skin: normal color, warm/dry Progress/Results/Core Measures Results/Orders Lab Results Laboratory Tests Test 01/11/19 15:20 01/11/19 15:40 Range/Units Urine Color YELLOW Urine Clarity SLIGHTLY CLOUDY Urine pH 6.5 5-9 Urine Specific [place] <=1.005 1.016-1.022 Urine Protein NEGATIVE NEGATIVE Urine Glucose (UA) NEGATIVE NEGATIVE Urine Ketones NEGATIVE NEGATIVE Urine Nitrite NEGATIVE NEGATIVE Urine Bilirubin NEGATIVE NEGATIVE Urine Urobilinogen 0.2 NORMAL MG/DL Urine Leukocyte Esterase 1+ H NEGATIVE Urine RBC (Auto) NEGATIVE NEGATIVE Urine RBC 2-5 H /HPF Urine WBC 50-100 H /HPF Urine Squamous Epithelial Cells 2-5 /HPF Urine Crystals NONE /LPF Urine Bacteria FEW H /HPF Urine Casts NONE /LPF Urine Mucus NEGATIVE /LPF Urine Culture Indicated YES Urine Opiates Screen POSITIVE H NEGATIVE Urine Oxycodone Screen NEGATIVE NEGATIVE Urine Methadone Screen NEGATIVE NEGATIVE Urine Propoxyphene Screen NEGATIVE NEGATIVE Urine Barbiturates Screen NEGATIVE NEGATIVE Ur Tricyclic Antidepressants Screen NEGATIVE NEGATIVE Urine Phencyclidine Screen NEGATIVE NEGATIVE Urine Amphetamines Screen NEGATIVE NEGATIVE Urine Methamphetamines Screen NEGATIVE NEGATIVE Urine Benzodiazepines Screen POSITIVE H NEGATIVE Urine Cocaine Screen NEGATIVE NEGATIVE Urine Cannabinoids Screen POSITIVE H NEGATIVE White Blood Count 8.4 4.3-11.0 10^3/uL Red Blood Count 3.48 L 4.35-5.85 10^6/uL Hemoglobin 9.8 L 11.5-16.0 G/DL Hematocrit 32 L 35-52 % Mean Corpuscular Volume 92 80-99 FL Mean Corpuscular Hemoglobin 28 25-34 PG Mean Corpuscular Hemoglobin Concent 31 L 32-36 G/DL Red Cell Distribution Width 18.0 H 10.0-14.5 % Platelet Count 186 130-400 10^3/uL Mean Platelet Volume 9.1 7.4-10.4 FL Neutrophils (%) (Auto) 74 42-75 % Lymphocytes (%) (Auto) 18 12-44 % Monocytes (%) (Auto) 5 0-12 % Eosinophils (%) (Auto) 3 0-10 % Basophils (%) (Auto) 0 0-10 % Neutrophils # (Auto) 6.2 1.8-7.8 X 10^3 Lymphocytes # (Auto) 1.5 1.0-4.0 X 10^3 Monocytes # (Auto) 0.4 0.0-1.0 X 10^3 Eosinophils # (Auto) 0.2 0.0-0.3 10^3/uL Basophils # (Auto) 0.0 0.0-0.1 10^3/uL Sodium Level 135 135-145 MMOL/L Potassium Level 4.0 3.6-5.0 MMOL/L Chloride Level 97 L 98-107 MMOL/L Carbon Dioxide Level 24 21-32 MMOL/L Anion Gap 14 5-14 MMOL/L Blood Urea Nitrogen 14 7-18 MG/DL Creatinine 1.45 H 0.60-1.30 MG/DL Estimat Glomerular Filtration Rate 38 BUN/Creatinine Ratio 10 Glucose Level 121 H 70-105 MG/DL Calcium Level 9.6 8.5-10.1 MG/DL Corrected Calcium 9.8 8.5-10.1 MG/DL Total Bilirubin 0.3 0.1-1.0 MG/DL Aspartate Amino Transf (AST/SGOT) 12 5-34 U/L Alanine Aminotransferase (ALT/SGPT) 12 0-55 U/L Alkaline Phosphatase 102 40-136 U/L Total Protein 7.1 6.4-8.2 GM/DL Albumin 3.7 3.2-4.5 GM/DL Salicylates Level < 0.3 L 5.0-20.0 MG/DL Acetaminophen Level < 10 L 10-30 UG/ML Serum Alcohol < 10 <10 MG/DL My Orders Orders - BASS,DEBBIE L DO Ua Culture If Indicated (01/11/19 15:22) Cbc With Automated Diff (01/11/19 15:22) Comprehensive Metabolic Panel (01/11/19 15:22) Alcohol (01/11/19 15:22) Drug Screen Stat (Urine) (01/11/19 15:22) Acetaminophen (01/11/19 15:22) Salicylate (01/11/19 15:22) Ekg Tracing (01/11/19 15:22) Thyroid Analyzer (01/11/19 15:22) Urine Culture (01/11/19 15:20) Vital Signs/I&O 01/11/19 01/11/19 15:13 17:52 Temp 96.5 96.5 Pulse 88 88 Resp 16 16 B/P (MAP) 123/70 (87) 123/70 (87) Pulse Ox 94 94 O2 Delivery Room Air Room Air Progress Progress Note : Time: 17:33 Progress Note Patient was evaluated by mental health. They feel patient is safe to be discharged. They're making a safety plan with her and her family. Patient also feels safe. She will be discharged home and should follow-up with mental health per their instructions. She should return to the ER as needed. Departure Impression Primary Impression: Acute reaction to situational stress Additional Impression: Depression Disposition: 01 HOME, SELF-CARE Condition: Stable Departure-Patient Inst. Referrals: MANASA WILCOX MD (PCP) Primary Care Physician PRIYA LIRIANO (Family) Primary Care Physician Patient Instructions: Suicide Prevention, Depression, Adult (DC), Tips for How to Help Your Mood DEBBIE BASS DO Jan 11, 2019 15:30
[2019-01-11 15:48] LABS: HEMATOCRIT 32 % (35-52); HEMOGLOBIN 9.8 G/DL (11.5-16.0); MEAN CORPUSCULAR HEMOGLOBIN 28 PG (25-34); MEAN CORPUSCULAR HGB CONC 31 G/DL (32-36); MEAN CORPUSCULAR VOLUME 92 FL (80-99); WHITE BLOOD COUNT 8.4 10^3/uL (4.3-11.0)
[2019-01-11 15:49] LABS: BASOPHILS % (AUTO) 0 % (0-10); EOSINOPHILS # (AUTO) 0.2 10^3/uL (0.0-0.3); EOSINOPHILS % (AUTO) 3 % (0-10); LYMPHOCYTES # (AUTO) 1.5 X 10^3 (1.0-4.0); LYMPHOCYTES % (AUTO) 18 % (12-44); MEAN PLATELET VOLUME 9.1 FL (7.4-10.4); MONOCYTES # (AUTO) 0.4 X 10^3 (0.0-1.0); MONOCYTES % (AUTO) 5 % (0-12); NEUTROPHILS # (AUTO) 6.2 X 10^3 (1.8-7.8); NEUTROPHILS % (AUTO) 74 % (42-75); PLATELET COUNT 186 10^3/uL (130-400)
[2019-01-11 16:00] LABS: CANNABINOID SCREEN, URINE POSITIVE (NEGATIVE); OPIATE SCREEN URINE POSITIVE (NEGATIVE)
[2019-01-11 16:01] LABS: AMPHETAMINE SCREEN, URINE NEGATIVE (NEGATIVE); BARBITURATE SCREEN URINE NEGATIVE (NEGATIVE); BENZODIAZEPINES SCREEN URINE POSITIVE (NEGATIVE); COCAINE SCREEN URINE NEGATIVE (NEGATIVE); METHADONE STAT NEGATIVE (NEGATIVE); METHAMPHETAMINE SCREEN URINE S NEGATIVE (NEGATIVE); OXYCODONE STAT NEGATIVE (NEGATIVE); PROPOXYPHENE STAT NEGATIVE (NEGATIVE); TRICYCLIC ANTIDEPRESSANTS SCRE NEGATIVE (NEGATIVE)
[2019-01-11 16:02] LABS: CLARITY,URINE SLIGHTLY CLOUDY; COLOR,URINE YELLOW; GLUCOSE, URINE (UA) NEGATIVE (NEGATIVE); KETONES,URINE NEGATIVE (NEGATIVE); PH,URINE 6.5 (5-9); PROTEIN,URINE NEGATIVE (NEGATIVE)
[2019-01-11 16:03] LABS: BACTERIA,URINE FEW /HPF; BILIRUBIN,URINE NEGATIVE (NEGATIVE); LEUKOCYTE ESTERASE ,URINE 1+ (NEGATIVE); NITRITE,URINE NEGATIVE (NEGATIVE); UROBILINOGEN,URINE 0.2 MG/DL (NORMAL); WBC,URINE 50-100 /HPF
[2019-01-11 16:12] LABS: ALANINE AMINOTRANSFERASE 12 U/L (0-55); ALKALINE PHOSPHATASE 102 U/L (40-136); BILIRUBIN,TOTAL 0.3 MG/DL (0.1-1.0); BUN/CREATININE RATIO 10; CALCIUM 9.6 MG/DL (8.5-10.1); CARBON DIOXIDE 24 MMOL/L (21-32); CHLORIDE 97 MMOL/L (98-107); CREATININE SERUM 1.45 MG/DL (0.60-1.30); GFR ESTIMATED 38; GLUCOSE 121 MG/DL (70-105); SODIUM 135 MMOL/L (135-145)
[2019-01-11 16:13] LABS: ACETAMINOPHEN < 10 UG/ML (10-30); ALBUMIN 3.7 GM/DL (3.2-4.5); SALICYLATE < 0.3 MG/DL (5.0-20.0); TOTAL PROTEIN 7.1 GM/DL (6.4-8.2)
--- NOTE | 2019-01-11 17:00 | NUR ---
Patient speaking with screener from [facility] via webcam.
--- NOTE | 2019-01-11 17:25 | NUR ---
Per screener, patient to go home with safety plan.
[2019-01-11 17:52] VITALS: BP 123/70
== END 2019-01-11 17:55 | disposition home or self-care (01) ==
LOC: EDUNIT# 15:05 → ER FS 15:06
DX: F32.9 Major depressive disorder, single episode, unspecified (principal); F43.21 Adjustment disorder with depressed mood; J45.909 Unspecified asthma, uncomplicated; I10 Essential (primary) hypertension; E11.9 Type 2 diabetes mellitus without complications; Z85.528 Personal history of other malignant neoplasm of kidney; Z87.442 Personal history of urinary calculi; Z77.22 Contact with and (suspected) exposure to environmental tobacco smoke (acute) (chronic); Z90.710 Acquired absence of both cervix and uterus; Z90.89 Acquired absence of other organs; Z98.51 Tubal ligation status
CPT/HCPCS: 36415; 80053; 80306; 80320; 80329; 81000; 84443; 85025; 87088; 93005

== ENCOUNTER 2019-03-07 21:51 | Emergency (ER) | payer MEDICARE, MEDICAID | END 2019-03-07 22:35 | disposition home or self-care (01) | LOC: ER FS 21:51 ==

== ENCOUNTER → 2019-03-18 | Outpatient (CLI) | payer MEDICARE, MEDICAID | LOC: PREOP 05:38 | PROVIDERS: ATTEND Surgery | DX: Z01.818 Encounter for other preprocedural examination (principal) ==

== ENCOUNTER 2019-03-22 20:25 | Emergency (ER) | payer MEDICARE, MEDICAID ==
[~2019-03-22] VITALS: Ht 170.2 cm; Wt 101.6 kg
--- NOTE | 2019-03-22 20:34 | ED Dyspnea ---
General Stated Complaint: SOA Source of Information: Patient Exam Limitations: No Limitations History of Present Illness Date Seen by Provider: Mar 22, 2019 Time Seen by Provider: 20:31 Initial Comments 53-year-old female presents with hard time breathing. Patient reports that she just wanted up and down 10 flights of stairs. That she is carrying groceries because a "elevator at her apartment broke. Patient has a history of COPD. Patient also reports that she is "unable to check her blood sugars" because she can't get her apartment. Patient reports that her inhalers are not working but then states that she is out of inhalers because she cannot get a refill. Patient denies any acute chest pain, nausea, vomiting. Patient is talking in complete sentences without any obvious difficulty. Patient then states that her braces on her problem but her "blood pressure" because she is under a lot of stress. Patient continually changing her complaint. Allergies and Home Medications Allergies Coded Allergies: No Known Drug Allergies (Unverified , 10/16/18) Patient Home Medication List Home Medication List Reviewed: Yes Review of Systems Review of Systems Constitutional: No chills, No dizziness, No fever EENTM: no symptoms reported Respiratory: see HPI Cardiovascular: No chest pain, No edema, No palpitations Gastrointestinal: no symptoms reported Genitourinary: no symptoms reported Musculoskeletal: no symptoms reported Skin: no symptoms reported Psychiatric/Neurological: Anxiety Past Zzgnslc-Nnofzs-Xirnsd Hx Past Med/Social Hx: Reviewed Nursing Past Med/Soc Hx Patient Social History Drug of Choice: marijuana Type Used: Cigarettes 2nd Hand Smoke Exposure: Yes Recent Hopitalizations: No Seasonal Allergies Seasonal Allergies: No Past Medical History Surgeries: Yes Abdominal, Hysterectomy, Nephrectomy, Tonsillectomy, Tubal Ligation Respiratory: Yes Asthma Currently Using CPAP: No Currently Using BIPAP: No Cardiac: No Hypertension 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 has multiple lesions on her abd and under the folds.) Blood Disorders: No Adverse Reaction/Blood Tranf: No Physical Exam Vital Signs Vital Signs - First Documented 03/22/19 20:30 Pulse 93 Resp 20 B/P (MAP) 74/ O2 Delivery Room Air O2 Flow Rate 118.00 Capillary Refill : Height, Weight, BMI Height: 5'7.00" Weight: 229lbs. 0oz. 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 Norm as Tested Skin: Normal Color, Warm/Dry Lymphatic: No Adenopathy Progress/Results/Core Measures Results/Orders Lab Results Laboratory Tests Test 03/22/19 20:35 03/22/19 20:48 Range/Units Glucometer 162 H 70-110 MG/DL White Blood Count 8.2 4.3-11.0 10^3/uL Red Blood Count 3.55 L 4.35-5.85 10^6/uL Hemoglobin 9.6 L 11.5-16.0 G/DL Hematocrit 32 L 35-52 % Mean Corpuscular Volume 89 80-99 FL Mean Corpuscular Hemoglobin 27 25-34 PG Mean Corpuscular Hemoglobin Concent 31 L 32-36 G/DL Red Cell Distribution Width 18.2 H 10.0-14.5 % Platelet Count 217 130-400 10^3/uL Mean Platelet Volume 10.3 7.4-10.4 FL Neutrophils (%) (Auto) 65 42-75 % Lymphocytes (%) (Auto) 25 12-44 % Monocytes (%) (Auto) 8 0-12 % Eosinophils (%) (Auto) 2 0-10 % Basophils (%) (Auto) 0 0-10 % Neutrophils # (Auto) 5.4 1.8-7.8 X 10^3 Lymphocytes # (Auto) 2.0 1.0-4.0 X 10^3 Monocytes # (Auto) 0.6 0.0-1.0 X 10^3 Eosinophils # (Auto) 0.1 0.0-0.3 10^3/uL Basophils # (Auto) 0.0 0.0-0.1 10^3/uL Sodium Level 140 135-145 MMOL/L Potassium Level 4.3 3.6-5.0 MMOL/L Chloride Level 101 98-107 MMOL/L Carbon Dioxide Level 25 21-32 MMOL/L Anion Gap 14 5-14 MMOL/L Blood Urea Nitrogen 17 7-18 MG/DL Creatinine 1.32 H 0.60-1.30 MG/DL Estimat Glomerular Filtration Rate 42 BUN/Creatinine Ratio 13 Glucose Level 158 H 70-105 MG/DL Calcium Level 9.5 8.5-10.1 MG/DL Corrected Calcium 9.9 8.5-10.1 MG/DL Magnesium Level 2.0 1.6-2.4 MG/DL Total Bilirubin 0.2 0.1-1.0 MG/DL Aspartate Amino Transf (AST/SGOT) 13 5-34 U/L Alanine Aminotransferase (ALT/SGPT) 17 0-55 U/L Alkaline Phosphatase 102 40-136 U/L Troponin I < 0.30 <0.30 NG/ML Total Protein 6.9 6.4-8.2 GM/DL Albumin 3.5 3.2-4.5 GM/DL My Orders Orders - BASS,DEBBIE L DO Cbc With Automated Diff (03/22/19 20:34) Comprehensive Metabolic Panel (03/22/19 20:34) Albuterol/Ipra Inhalation Soln (Duoneb I (03/22/19 20:45) Magnesium (03/22/19 20:34) Chest Pa/Lat (2 View) (03/22/19 20:34) Ekg Tracing (03/22/19 20:34) O2 (03/22/19 20:34) Ed Iv/Invasive Line Start (03/22/19 20:34) Monitor-Rhythm Ecg Trace Only (03/22/19 20:34) Svn Small Volume Nebulizer (03/22/19 20:34) Accucheck Stat ONCE (03/22/19 20:34) Troponin I (03/22/19 20:34) Medications Given in ED Current Medications Medications Dose Ordered Sig/Yoselyn Route Start Time Stop Time Status Last Admin Dose Admin Albuterol/ Ipratropium 3 ml ONCE ONCE INH 03/22/19 20:45 03/22/19 20:46 DC 03/22/19 20:56 3 ML Vital Signs/I&O 03/22/19 03/22/19 20:30 21:06 Pulse 93 Resp 20 B/P (MAP) 74/ O2 Delivery Room Air Room Air O2 Flow Rate 118.00 118.00 Progress Progress Note : Progress Note Patient with no acute findings on x-ray or labs. I did discuss with her that I'm sorry that her elevators been not working for 10 days however there is no e mergent or need for hospitalization at this time. Patient will be did take her stairs slowly. Patient is otherwise stable only discharged home in stable condition. Departure Impression Primary Impression: Dyspnea on exertion Disposition: HOME, SELF-CARE Condition: Stable Departure-Patient Inst. Referrals: MANASA WILCOX MD (PCP) Primary Care Physician PRIYA LIRIANO (Family) Primary Care Physician Patient Instructions: Shortness of Breath (Dyspnea) (DC) Add. Discharge Instructions: Follow-up with primary care provider as needed if symptoms are not improving DEBBIE BASS DO Mar 22, 2019 20:34
[2019-03-22] MEDS ORDERED: RT-ALBUTEROL/IPRATROPIUM 3 ML (DUONEB) VIAL INH ONE (20:45)
--- NOTE | 2019-03-22 21:00 | NUR ---
PT. HAS A PORT IN THE LEFT CHEST AND HAS AN INSULIN PUMP ON. BLOOD SUGAR WAS 162
[2019-03-22 21:01] LABS: HEMATOCRIT 32 % (35-52); HEMOGLOBIN 9.6 G/DL (11.5-16.0); LYMPHOCYTES % (AUTO) 25 % (12-44); MEAN CORPUSCULAR HEMOGLOBIN 27 PG (25-34); MEAN CORPUSCULAR HGB CONC 31 G/DL (32-36); MEAN CORPUSCULAR VOLUME 89 FL (80-99); MEAN PLATELET VOLUME 10.3 FL (7.4-10.4); NEUTROPHILS % (AUTO) 65 % (42-75); PLATELET COUNT 217 10^3/uL (130-400); RED CELL DISTRIBUTION WIDTH 18.2 % (10.0-14.5); WHITE BLOOD COUNT 8.2 10^3/uL (4.3-11.0)
[2019-03-22 21:02] LABS: BASOPHILS % (AUTO) 0 % (0-10); EOSINOPHILS # (AUTO) 0.1 10^3/uL (0.0-0.3); EOSINOPHILS % (AUTO) 2 % (0-10); MONOCYTES # (AUTO) 0.6 X 10^3 (0.0-1.0); MONOCYTES % (AUTO) 8 % (0-12); NEUTROPHILS # (AUTO) 5.4 X 10^3 (1.8-7.8)
--- NOTE | 2019-03-22 21:05 | Diagnostic Imaging Report ---
EXAMINATION: PA and lateral chest INDICATION: Shortness of breath. Comparison is made with the prior study from November 06, [address] angiogram from January 08, 2019. FINDINGS: There are chronic interstitial changes present within the lungs that are not appreciably changed from the previous exam. There is no new alveolar infiltrate or consolidation evident. There is no effusion or pneumothorax. Heart size is appropriate. Central pulmonary vascularity appears appropriate. There is a left sided port. No acute or suspicious osseous abnormality demonstrated. IMPRESSION: 1. Stable radiographic appearance of the chest. Mild interstitial changes present within the lungs without evidence of a new acute cardiopulmonary process. Dictated by: Dictated on workstation # [id number]
[2019-03-22 21:25] LABS: ALANINE AMINOTRANSFERASE 17 U/L (0-55); ALKALINE PHOSPHATASE 102 U/L (40-136); BILIRUBIN,TOTAL 0.2 MG/DL (0.1-1.0); BUN/CREATININE RATIO 13; CALCIUM 9.5 MG/DL (8.5-10.1); CARBON DIOXIDE 25 MMOL/L (21-32); CHLORIDE 101 MMOL/L (98-107); CREATININE SERUM 1.32 MG/DL (0.60-1.30); GFR ESTIMATED 42; GLUCOSE 158 MG/DL (70-105); POTASSIUM 4.3 MMOL/L (3.6-5.0); SODIUM 140 MMOL/L (135-145)
[2019-03-22 21:26] LABS: ALBUMIN 3.5 GM/DL (3.2-4.5); TOTAL PROTEIN 6.9 GM/DL (6.4-8.2)
[2019-03-22 21:45] VITALS: BP 118/74
== END 2019-03-22 21:50 | disposition home or self-care (01) ==
LOC: EDUNIT# 20:25 → ER FS 20:27
DX: R06.09 Other forms of dyspnea (principal); J44.9 Chronic obstructive pulmonary disease, unspecified; I10 Essential (primary) hypertension; E11.9 Type 2 diabetes mellitus without complications; Z77.22 Contact with and (suspected) exposure to environmental tobacco smoke (acute) (chronic); Z90.710 Acquired absence of both cervix and uterus; Z90.89 Acquired absence of other organs; Z98.51 Tubal ligation status; Z85.528 Personal history of other malignant neoplasm of kidney
CPT/HCPCS: 36415; 71046; 80053; 82962; 83735; 84484; 85025; 93005; 93041; 94640

== ENCOUNTER 2019-03-24 10:00 | Day surgery (SDC) | payer MEDICARE, MEDICAID ==
[~2019-03-24] VITALS: Ht 170.2 cm; Wt 101.6 kg
[2019-03-24] MEDS ORDERED: LACTATED RINGERS 1,000 ML IV ONE (10:43)
--- NOTE | 2019-03-24 10:56 | Progress Note-Pre Operative ---
Pre-Operative Progress Note H&P Reviewed The H&P was reviewed, patient examined and no changes noted. Time Seen by Provider: 10:54 Date H&P Reviewed: Mar 24, 2019 Time H&P Reviewed: 10:54 Pre-Operative Diagnosis: screening colonoscopy, abdominal pain MIKAYLA DE LOS SANTOS DO Mar 24, 2019 10:56
[2019-03-24 11:10] VITALS: BP 133/67
[2019-03-24] MEDS ORDERED: LACTATED RINGERS 1,000 ML IV STA (11:39)
[2019-03-24] MEDS ORDERED: PROPOFOL INJECTION 50 ML IV ONE (11:41)
[2019-03-24] MEDS ORDERED: MIDAZOLAM 2 MG/2 ML (VERSED) VIAL ONE (11:41)
[2019-03-24] MEDS ORDERED: INSULIN PUMP ×2 (11:58)
[2019-03-24] MEDS ORDERED: LISI-556 PO ×2 (11:58)
[2019-03-24] MEDS ORDERED: METF-478 PO ×2 (11:58)
[2019-03-24] MEDS ORDERED: OLAN10TA19 PO ×2 (11:58)
[2019-03-24] MEDS ORDERED: ROSU10CA PO ×2 (11:58)
[2019-03-24 12:00] VITALS: BP 124/57
--- NOTE | 2019-03-24 12:01 | Progress Note-Post Operative ---
Post-Operative Progess Note Surgeon (s)/Academic Coach (s) Surgeon MIKAYLA DE LOS SANTOS DO Academic Coach: none Pre-Operative Diagnosis screening colonoscopy, abdominal pain Post-Operative Diagnosis Colon polyp int hemorrhoids poor prep Procedure & Operative Findings Date of Procedure 03/24/19 Procedure Performed/Findings Flex sig with snare Anesthesia Type IV sedation by TUBE WASHER Estimated Blood Loss Estimated blood loss (mL): none Specimens/Packing Specimens Removed sigmoid colon polyp MIKAYLA DE LOS SANTOS DO Mar 24, 2019 12:00
--- NOTE | 2019-03-24 12:02 | Endoscopy Discharge Instruct ---
Endo Procedure/Findings Findings 1.: Polyp 2.: Internal Hemorrhoids 3.: Other Findings (poor prep) Discharge Instructions - Activity: You might feel a little sleepy until tomorrow. This is due to the medicine you received to relax you. Until tomorrow, you should: NOT drive a car, operate machinery or power tools. NOT drink any alcoholic beverages. NOT make any important decisions or sign importortant papers. Do not return to work until tomorrow, unless otherwise instructed. Resume previous activities tomorrow. Diet: Start by taking liquids. If you tolerate liquids, advance to solid food. make an appointment for one week Notify Physician - If you experience excessive bleeding, unusual abdominal pain, fever, or chest pain, contact your doctor immediately. MIKAYLA DE LOS SANTOS DO Mar 24, 2019 12:02
[2019-03-24 12:05] VITALS: BP 125/62
[2019-03-24 12:10] VITALS: BP 127/68
[2019-03-24 12:35] VITALS: BP 135/98
[2019-03-24 12:45] VITALS: BP 135/98
--- NOTE | 2019-03-24 14:25 | Anesthesia-General Post-Op ---
MAC Patient Condition Mental Status/LOC: Same as Preop Cardiovascular: Satisfactory Nausea/Vomiting: Absent Respiratory: Satisfactory Pain: Controlled Complications: Absent Post Op Complications Complications None Follow Up Care/Instructions Patient Instructions None needed. Anesthesiology Discharge Order Discharge Order Patient is doing well, no complaints, stable vital signs, no apparent adverse anesthesia problems. No complications reported per nursing. DENISHA RICE CRNA Mar 24, 2019 14:25
--- NOTE | 2019-03-25 16:26 | OPERATIVE REPORT ---
DATE OF SERVICE: 03/24/2019 PREOPERATIVE DIAGNOSIS: Screening colonoscopy. POSTOPERATIVE DIAGNOSES: 1. Colon polyp. 2. Internal hemorrhoids. 3. Poor prep. PROCEDURES: Flexible sigmoidoscopy with snare polypectomy. SURGEON: Kvng Gordon DO. INDUSTRIAL PROPERTY APPRAISER: None. ANESTHESIA: IV sedation by the SHUFFLE BOARD OPERATOR. SPECIMEN: Sigmoid colon polyp. BLOOD LOSS: Scant. FLUIDS: Per anesthesia. POSTOPERATIVE CONDITION: Stable. INDICATION FOR PROCEDURE: The patient is a 53-year-old female, who needed a screening colonoscopy FINDINGS: The patient unfortunately had a poor prep and fully formed stool, unable to do a complete colonoscopy. PROCEDURE NOTE: After informed consent was obtained, the patient was brought to the endoscopy suite and placed in the left lateral decubitus position. She was administered IV sedation by the SHUFFLE BOARD OPERATOR, who monitored her vitals the entire time, heart rate, blood pressure and pulse ox and the scope was inserted. Immediately upon entering, found fully formed fecal material, saw a pushed upwards, saw a large polyp in the sigmoid colon, did snare polypectomy of this continued up to the splenic flexure, but could not get past because of this large amount of fully formed fecal material at this point, slowly withdrew the scope down into the rectum, retroflexed the rectal vault, saw some minimal internal hemorrhoids and removed the scope. The patient was recovered in endoscopy suite. She will need a repeat colonoscopy within a month or 2 because she was not clean. Job ID: [id number] DocumentID: [id number] Dictated Date: 03/25/2019 09:52:59 Glove Turner And Former Date: 03/25/2019 16:25:08 Dictated By: KVNG GORDON DO
== END 2019-03-24 12:45 | disposition home or self-care (01) ==
LOC: ENDO 10:00
PROVIDERS: ATTEND Surgery
DX: Z12.11 Encounter for screening for malignant neoplasm of colon (principal); K63.5 Polyp of colon; K64.8 Other hemorrhoids; F17.210 Nicotine dependence, cigarettes, uncomplicated; I10 Essential (primary) hypertension; E66.9 Obesity, unspecified; Z68.35 Body mass index [BMI] 35.0-35.9, adult; Z83.3 Family history of diabetes mellitus; Z90.710 Acquired absence of both cervix and uterus; Z79.899 Other long term (current) drug therapy
CPT/HCPCS: 82962

== ENCOUNTER 2019-04-14 13:29 | Emergency (ER) | payer MEDICARE, MEDICAID ==
[~2019-04-14] VITALS: Ht 170.2 cm; Wt 109.1 kg
[~2019-04-14 13:29] MED LIST changes: +INSULIN PUMP; +LISI-556 PO; +METF-478 PO; +OLAN10TA19 PO; +ROSU10CA PO
[2019-04-14] MEDS ORDERED: ASPIRIN 81 MG CHEW (CHILDREN'S ASA) PO ONE (14:15)
[2019-04-14 14:55] LABS: BASOPHILS % (AUTO) 1 % (0-10); EOSINOPHILS % (AUTO) 3 % (0-10); HEMATOCRIT 35 % (35-52); HEMOGLOBIN 10.8 G/DL (11.5-16.0); LYMPHOCYTES % (AUTO) 27 % (12-44); MEAN CORPUSCULAR HEMOGLOBIN 27 PG (25-34); MEAN CORPUSCULAR HGB CONC 31 G/DL (32-36); MEAN CORPUSCULAR VOLUME 87 FL (80-99); MEAN PLATELET VOLUME 10.3 FL (7.4-10.4); MONOCYTES % (AUTO) 6 % (0-12); NEUTROPHILS % (AUTO) 63 % (42-75); PLATELET COUNT 207 10^3/uL (130-400); RED CELL DISTRIBUTION WIDTH 18.6 % (10.0-14.5); WHITE BLOOD COUNT 7.5 10^3/uL (4.3-11.0)
[2019-04-14 14:56] LABS: BASOPHILS # (AUTO) 0.1 10^3/uL (0.0-0.1); EOSINOPHILS # (AUTO) 0.3 10^3/uL (0.0-0.3); MONOCYTES # (AUTO) 0.5 X 10^3 (0.0-1.0); NEUTROPHILS # (AUTO) 4.7 X 10^3 (1.8-7.8)
[2019-04-14 14:57] LABS: ALKALINE PHOSPHATASE 91 U/L (40-136); BILIRUBIN,TOTAL 0.2 MG/DL (0.1-1.0); BUN/CREATININE RATIO 14; CALCIUM 9.7 MG/DL (8.5-10.1); CARBON DIOXIDE 24 MMOL/L (21-32); CHLORIDE 105 MMOL/L (98-107); CREATININE SERUM 1.08 MG/DL (0.60-1.30); FIBRIN DEGRADATION PRODUCTS 0.53 UG/ML (0.00-0.49); GFR ESTIMATED 53; GLUCOSE 157 MG/DL (70-105); POTASSIUM 4.2 MMOL/L (3.6-5.0); PROTHROMBIN TIME PATIENT 13.4 SEC (12.2-14.7); SODIUM 141 MMOL/L (135-145)
[2019-04-14 14:58] LABS: ALANINE AMINOTRANSFERASE 11 U/L (0-55); ALBUMIN 3.9 GM/DL (3.2-4.5); TOTAL PROTEIN 7.5 GM/DL (6.4-8.2)
[2019-04-14] MEDS ORDERED: morphine INJ 10 MG/ML 1ML (SYR OR VIAL) IVP STA (15:07)
--- NOTE | 2019-04-14 15:13 | Diagnostic Imaging Report ---
EXAMINATION: PA and lateral Chest at 2:05 p.m. INDICATION: Chest pain. FINDINGS: The heart size is within normal limits and stable when compared to 03/22/2019. The coarse perihilar markings seen on the prior study are again evident and no different. There is still no sign of failure, pneumonia, or pleural effusion to indicate an acute abnormality. The mediastinum is not widened. The osseous structures are intact. The left-sided central venous catheter is unchanged in position. IMPRESSION: Stable chest. There has been no adverse change since the prior exam. Dictated by: Dictated on workstation # [id number]
[2019-04-14] MEDS ORDERED: ACETAMINOPHEN 325 MG TABLET PO ONE (15:15)
[2019-04-14] MEDS ORDERED: HOLD METFORMIN - RECEIVED CONTRAST 20 ML VIAL IV SCH (16:15)
[2019-04-14] MEDS ORDERED: CATHETER FLUSH 10 ML SYR IV PRN (16:15)
[2019-04-14] MEDS ORDERED: NS 100 ML (IVPB) BAG IV ONE (16:15)
[2019-04-14] MEDS ORDERED: IOHEXOL 350 MG/ML 150 ML (OMNIPAQUE 350) VIAL IV ONE (16:15)
--- NOTE | 2019-04-14 16:58 | Diagnostic Imaging Report ---
PROCEDURE: CT angiography of the chest with contrast. TECHNIQUE: Multiple contiguous axial images were obtained through the chest after uneventful bolus administration of intravenous contrast. 3D reconstructed CTA MIP acquisitions were also performed. Auto Exposure Controls were utilized during the CT exam to meet ALARA standards for radiation dose reduction. INDICATION: Bilateral chest pain. FINDINGS: The previous CTA chest exam performed on 01/08/2019 failed to show any sign of an acute cardiopulmonary abnormality. The plain film examination of the chest performed prior to this study at 02:05 p.m. was also unremarkable for an acute abnormality. On this exam, there is no defect within the pulmonary arteries to indicate a pulmonary embolus. The aorta is not abnormally dilated and there is no sign of a dissection. The heart size is within normal limits. Sparse coronary artery calcifications are noted. The lungs are generally clear. There is no evidence for a failure, pneumonia, or for pleural effusion. There is no parenchymal lung mass identified either. The 8 mm pleural nodule along the posterior aspect of the right upper lung seen previously is again evident and unchanged. There is no mediastinal or hilar adenopathy. The thyroid gland where visualized is unremarkable. There is a Port-A-Cath in place on the left. The tip of the catheter is within the mid superior vena cava. There is no obvious breast mass. According to our records, the patient has not had a mammogram. If the patient has not had a recent (within the last year) mammogram elsewhere, then mammography will be recommended for further study. The sections through the upper abdomen failed to show any sign of an acute abnormality. The bone windows show no sign of a fracture or of a destructive lesion. IMPRESSION: 1. There is no evidence for an acute cardiopulmonary abnormality. In particular, there is no sign of a pulmonary embolus or of a dissection. 2. There is no obvious breast mass. Recommendations as above. Dictated by: Dictated on workstation # [id number]
--- NOTE | 2019-04-14 17:39 | ED Cardiac General ---
History of Present Illness General Chief Complaint: Chest Pain Stated Complaint: SOB; CHEST PAIN Nursing Triage Note: Patient reports bilateral chest pain (worsened by activity and deep breathing) and shortness of breath since around noon today. History of Present Illness Date Seen by Provider: Apr 14, 2019 Time Seen by Provider: 13:40 Initial Comments The patient is a 53-year-old female with a history of hypertension, hyperlipidemia, insulin-dependent diabetes, COPD/asthma, history of nephrectomy and multiple resections of bladder tumors, with such a resection occurring most recently last week. The patient presents with concern for acute onset of sharp focal stabbing pleuritic sternal chest discomfort with onset at about noon, about an hour prior to arrival. Mild associated shortness of breath because it hurts to take a deep breath. Associated fevers, cough, nausea or vomiting, cold sweats or chills, flank pain, back pain, abdominal pain, dysuria or hematuria, changes in bowel habits. Patient rates pain at a 7 out of 10 at present. Contrary to triage note, patient denies any exertional component to her chest discomfort. NTG SL LOCKER ROOM CLERK: No ASA po LOCKER ROOM CLERK: No Allergies and Home Medications Allergies Coded Allergies: No Known Drug Allergies (Unverified , 10/16/18) Home Medications Lisinopril 5 Mg Tablet, 5 MG PO DAILY, (Reported) Metformin HCl 500 Mg Tab.er.24, 500 MG PO HS, (Reported) Olanzapine 10 Mg Tablet, 10 MG PO HS, (Reported) Rosuvastatin Calcium 10 Mg Cap.sprink, 10 MG PO HS, (Reported) Patient Home Medication List Home Medication List Reviewed: Yes Review of Systems Review of Systems Constitutional: see HPI All Other Systems Reviewed Negative Unless Noted: Yes (Negative excepted noted.) Past Dzcbuvg-Jmluer-Ykkwae Hx Past Med/Social Hx: Reviewed Nursing Past Med/Soc Hx Patient Social History Alcohol Use: Denies Use Recreational Drug Use: Yes Drug of Choice: marijuana Smoking Status: Current Everyday Smoker Type Used: Cigarettes 2nd Hand Smoke Exposure: Yes Recent Foreign Travel: No Contact w/Someone Who Travel: No Recent Infectious Disease Expo: No Recent Hopitalizations: No Physical Abuse: No Sexual Abuse: No Mistreated: No Fear: No Seasonal Allergies Seasonal Allergies: No Past Medical History Surgeries: Yes Abdominal, Hysterectomy, Nephrectomy, Tonsillectomy, Tubal Ligation Respiratory: Yes Asthma Currently Using CPAP: No Currently Using BIPAP: No Cardiac: No Hypertension 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 has multiple lesions on her abd and under the folds.) Blood Disorders: No Adverse Reaction/Blood Tranf: No Family Medical History Reviewed Nursing Family Hx Physical Exam Vital Signs Vital Signs - First Documented 04/14/19 13:45 Temp 37.9 Pulse 105 Resp 19 B/P (MAP) 125/84 (98) Pulse Ox 94 O2 Delivery Room Air Capillary Refill : Less Than 3 Seconds Height, Weight, BMI Height: 5'7.00" Weight: 224lbs. 0.0oz. [id number]; 37.00 BMI Method:Actual General Appearance: No Apparent Distress Other comments This is an older female appearing nontoxic and in no acute distress. Head is normocephalic and atraumatic. Neck is supple and nontender. Oropharynx is moist. Lungs are clear to auscultation in all stations. There is a normal S1 and S2 without rubs or gallops and capillary refill is appropriate, less than 2 seconds globally. Abdomen is soft, nontender and nondistended. Skin is warm and dry without cyanosis, clubbing or edema. Psychiatrically, the patient demonstrates appropriate mood and affect and is alert. Progress/Results/Core Measures Results/Orders Lab Results Laboratory Tests Test 04/14/19 13:55 04/14/19 16:55 Range/Units White Blood Count 7.5 4.3-11.0 10^3/uL Red Blood Count 4.03 L 4.35-5.85 10^6/uL Hemoglobin 10.8 L 11.5-16.0 G/DL Hematocrit 35 35-52 % Mean Corpuscular Volume 87 80-99 FL Mean Corpuscular Hemoglobin 27 25-34 PG Mean Corpuscular Hemoglobin Concent 31 L 32-36 G/DL Red Cell Distribution Width 18.6 H 10.0-14.5 % Platelet Count 207 130-400 10^3/uL Mean Platelet Volume 10.3 7.4-10.4 FL Neutrophils (%) (Auto) 63 42-75 % Lymphocytes (%) (Auto) 27 12-44 % Monocytes (%) (Auto) 6 0-12 % Eosinophils (%) (Auto) 3 0-10 % Basophils (%) (Auto) 1 0-10 % Neutrophils # (Auto) 4.7 1.8-7.8 X 10^3 Lymphocytes # (Auto) 2.0 1.0-4.0 X 10^3 Monocytes # (Auto) 0.5 0.0-1.0 X 10^3 Eosinophils # (Auto) 0.3 0.0-0.3 10^3/uL Basophils # (Auto) 0.1 0.0-0.1 10^3/uL Prothrombin Time 13.4 12.2-14.7 SEC INR Comment 1.0 0.8-1.4 Activated Partial Thromboplast Time 30 24-35 SEC D-Dimer 0.53 H 0.00-0.49 UG/ML Sodium Level 141 135-145 MMOL/L Potassium Level 4.2 3.6-5.0 MMOL/L Chloride Level 105 98-107 MMOL/L Carbon Dioxide Level 24 21-32 MMOL/L Anion Gap 12 5-14 MMOL/L Blood Urea Nitrogen 15 7-18 MG/DL Creatinine 1.08 0.60-1.30 MG/DL Estimat Glomerular Filtration Rate 53 BUN/Creatinine Ratio 14 Glucose Level 157 H 70-105 MG/DL Calcium Level 9.7 8.5-10.1 MG/DL Corrected Calcium 9.8 8.5-10.1 MG/DL Total Bilirubin 0.2 0.1-1.0 MG/DL Aspartate Amino Transf (AST/SGOT) 13 5-34 U/L Alanine Aminotransferase (ALT/SGPT) 11 0-55 U/L Alkaline Phosphatase 91 40-136 U/L Troponin I < 0.30 < 0.30 <0.30 NG/ML Pro-B-Type Natriuretic Peptide 84.8 H <75.0 PG/ML Total Protein 7.5 6.4-8.2 GM/DL Albumin 3.9 3.2-4.5 GM/DL My Orders Orders - LUCÍA FUENTES MD Cbc With Automated Diff (04/14/19 14:06) Comprehensive Metabolic Panel (04/14/19 14:06) Troponin I Fs (04/14/19 14:06) Ekg Tracing (04/14/19 14:06) Chest 1 View Ap/Pa Only (04/14/19 14:06) Protime With Inr (04/14/19 14:06) Partial Thromboplastin Time (04/14/19 14:06) Probnp Fs (04/14/19 14:06) Fibrin Degradation Products (04/14/19 14:06) Aspirin Chewable Tablet (Baby Aspirin Ch (04/14/19 14:15) Ct Angio Chest W (04/14/19 15:06) Acetaminophen Tablet/Caplet (Tylenol T (04/14/19 15:15) Morphine Injection (Morphine Injection (04/14/19 15:07) Iohexol Injection (Omnipaque 350 Mg/Ml 1 (04/14/19 16:15) Received Contrast (Hold Metformin- Contr (04/14/19 16:15) Sodium Chloride Flush (Catheter Flush Sy (04/14/19 16:15) Ns (Ivpb) (Sodium Chloride 0.9% Ivpb Bag (04/14/19 16:15) Troponin I Fs (04/14/19 16:43) Medications Given in ED Current Medications Medications Dose Ordered Sig/Yoselyn Route Start Time Stop Time Status Last Admin Dose Admin Acetaminophen 975 mg ONCE ONCE PO 04/14/19 15:15 04/14/19 15:16 DC 04/14/19 15:31 975 MG Aspirin 324 mg ONCE ONCE PO 04/14/19 14:15 04/14/19 14:16 DC 04/14/19 14:31 324 MG Iohexol 125 ml ONCE ONCE IV 04/14/19 16:15 04/14/19 16:16 DC 04/14/19 16:17 125 ML Sodium Chloride 10 ml NEEDED PRN IV 04/14/19 16:15 04/14/19 16:17 10 ML Sodium Chloride 100 ml ONCE ONCE IV 04/14/19 16:15 04/14/19 16:16 DC 04/14/19 16:17 80 ML Vital Signs/I&O 04/14/19 04/14/19 13:45 13:45 Temp 37.9 Pulse 105 Resp 19 B/P (MAP) 125/84 (98) Pulse Ox 94 O2 Delivery Room Air Room Air Blood Pressure Mean: 98 Progress Progress Note : Time: 17:40 Progress Note 53-year-old female with multiple comorbidities as noted who presents with quite atypical pleuritic chest discomfort in the setting of relatively recent surgery and bladder cancer. We will check labs and EKG and chest x-ray and will treat discomfort as per flowsheet. Low suspicion for ACS given atypical nature of discomfort. Patient will likely require CT angiography for disposition to rule out PE given her risk factors. Update 1740: Patient is resting comfortably in no acute distress and states her discomfort and shortness of breath are entirely resolved. She feels well and would like to go home. Labs, EKG, CT angiography of the chest and delta troponin are all within normal limits aside from a mild degree of anemia which is not new for this patient. In view of resolution of her atypical discomfort and shortness of breath, I feel comfortable releasing her to stop him to follow up very closely in the next 1-2 days with her primary care physician. She understands in the meantime that if she feels worse instead of better or develops other new symptoms of concern that she will need to return immediate relief for reevaluation. All questions are answered. Comment Sinus tachycardia, rate 109, no acute ST elevation or depression, CA 176, QRS 91, QTc 472, EP interpretation. Departure Impression Primary Impression: Other chest pain Additional Impression: Shortness of breath Disposition: 01 HOME, SELF-CARE Condition: Improved Departure-Patient Inst. Referrals: MANASA WILCOX MD (PCP/Family) Primary Care Physician Patient Instructions: Chest Pain (DC), Shortness of Breath (Dyspnea) Add. Discharge Instructions: Follow-up very closely with your primary care physician as discussed tomorrow. Call for appointment in the morning. Return to emergency department immediately with recurrent or worsened symptoms or any other new symptoms of concern. LUCÍA FUENTES MD Apr 14, 2019 17:39
[2019-04-14 17:49] VITALS: BP 130/80
== END 2019-04-14 17:50 | disposition home or self-care (01) ==
LOC: EDUNIT# 13:29 → ER FS 13:32
DX: R07.89 Other chest pain (principal); R06.00 Dyspnea, unspecified; I10 Essential (primary) hypertension; E78.5 Hyperlipidemia, unspecified; E11.9 Type 2 diabetes mellitus without complications; F17.210 Nicotine dependence, cigarettes, uncomplicated; J45.909 Unspecified asthma, uncomplicated; Z90.710 Acquired absence of both cervix and uterus; Z90.5 Acquired absence of kidney; Z87.442 Personal history of urinary calculi; Z87.440 Personal history of urinary (tract) infections; Z85.528 Personal history of other malignant neoplasm of kidney; Z90.89 Acquired absence of other organs; Z98.51 Tubal ligation status; Z79.84 Long term (current) use of oral hypoglycemic drugs
CPT/HCPCS: 36415; 71045; 71275; 80053; 83880; 84484; 85025; 85379; 85610; 85730; 93005; 96374

== ENCOUNTER 2019-05-06 13:20 | Outpatient (CLI) | payer MEDICARE, MEDICAID ==
[~2019-05-06] VITALS: Ht 170 cm; Wt 106.3 kg
[~2019-05-06 13:20] MED LIST changes: +ATOR10TA PO; +ESCI10TA PO; +IBUP-1780 PO; -LINA5TAB; +LINA5TAB PO; +METF750T2 PO; -NFNEB10T; +NFNEB10T PO; +TRAM50TA2 PO
== END 2019-05-06 13:25 | disposition home or self-care (01) ==
LOC: PREOP 13:20
PROVIDERS: ATTEND Surgery
DX: Z01.818 Encounter for other preprocedural examination (principal)

== ENCOUNTER 2019-06-02 08:49 | Day surgery (SDC) | payer MEDICARE, MEDICAID ==
--- NOTE | 2019-05-12 15:09 | Anesthesia-General Post-Op ---
MAC Patient Condition Mental Status/LOC: Same as Preop Cardiovascular: Satisfactory Nausea/Vomiting: Absent Respiratory: Satisfactory Pain: Controlled Complications: Absent Post Op Complications Complications None Follow Up Care/Instructions Patient Instructions None needed. Anesthesiology Discharge Order Discharge Order Patient is doing well, no complaints, stable vital signs, no apparent adverse anesthesia problems. No complications reported per nursing. DENISHA RICE CRNA May 12, 2019 15:09 POS
[2019-06-02] VITALS (7 sets, daily range): BP systolic 100–143; BP diastolic 51–74
[~2019-06-02] VITALS: Ht 170 cm; Wt 106.3 kg
[~2019-06-02 08:49] MED LIST changes: +LACTATED RINGERS 1,000 ML IV ONE
[2019-06-02] MEDS ORDERED: LACTATED RINGERS 1,000 ML IV STA (09:03)
[2019-06-02] MEDS ORDERED: ZPR80C PO (09:30)
[2019-06-02] MEDS ORDERED: RT-ALBUTEROL SULF 2.5 MG/3 ML PRE-MIX VIAL INH ONE (10:30)
[2019-06-02] MEDS ORDERED: RT-ALBUTEROL SULF 2.5 MG/3 ML PRE-MIX VIAL ONE (10:30)
[2019-06-02] MEDS ORDERED: PROPOFOL INJECTION 50 ML IV ONE (11:17)
[2019-06-02] MEDS ORDERED: MIDAZOLAM 2 MG/2 ML (VERSED) VIAL ONE (11:17)
[2019-06-02] MEDS ORDERED: ONDANSETRON 4 MG/2 ML (SDV) Z0FRAN ONE (11:18)
--- NOTE | 2019-06-02 11:46 | Progress Note-Post Operative ---
Post-Operative Progess Note Surgeon (s)/Multiple Games Dealer (s) Surgeon MIKAYLA DE LOS SANTOS DO Multiple Games Dealer: Rick Belle MSIII Pre-Operative Diagnosis screening colonoscopy, abdominal pain Post-Operative Diagnosis Colon Polyps internal hemorrhoids poor prep Procedure & Operative Findings Date of Procedure 06/02/19 Procedure Performed/Findings Colon with snare Anesthesia Type IV sedation by INTERACTIVE ACCOUNT MANAGER Estimated Blood Loss Estimated blood loss (mL): scant Specimens/Packing Specimens Removed asc colon polyp sigmoid polyp MIKAYLA DE LOS SANTOS DO Jun 02, 2019 11:46 POS
--- NOTE | 2019-06-02 11:47 | Endoscopy Discharge Instruct ---
Endo Procedure/Findings Findings 1.: Polyp 2.: Internal Hemorrhoids 3.: Other Findings (poor prep) Discharge Instructions - Activity: You might feel a little sleepy until tomorrow. This is due to the medicine you received to relax you. Until tomorrow, you should: NOT drive a car, operate machinery or power tools. NOT drink any alcoholic beverages. NOT make any important decisions or sign importortant papers. Do not return to work until tomorrow, unless otherwise instructed. Resume previous activities tomorrow. Diet: Start by taking liquids. If you tolerate liquids, advance to solid food. make an appointment for one week 1.: Colonoscopy in 1 year (or less, secondary to incomplete prep) Notify Physician - If you experience excessive bleeding, unusual abdominal pain, fever, or chest pain, contact your doctor immediately. MIKAYLA DE LOS SANTOS DO Jun 02, 2019 11:47 POS
--- NOTE | 2019-06-02 11:58 | Anesthesia-General Post-Op ---
MAC Patient Condition Mental Status/LOC: Same as Preop Cardiovascular: Satisfactory Nausea/Vomiting: Absent Respiratory: Satisfactory Pain: Controlled Complications: Absent Post Op Complications Complications None Follow Up Care/Instructions Patient Instructions None needed. Anesthesiology Discharge Order Discharge Order Patient is doing well, no complaints, stable vital signs, no apparent adverse anesthesia problems. No complications reported per nursing. ARACELI JULIAN CRNA Jun 02, 2019 11:58 POS
--- NOTE | 2019-06-02 14:39 | OPERATIVE REPORT ---
DATE OF SERVICE: 06/02/2019 PREOPERATIVE DIAGNOSES: History of colon polyps, need for colonoscopy. FINDINGS: The patient had colon polyps and internal hemorrhoids and unfortunately, a poor prep. PROCEDURE: Colonoscopy with snare polypectomy. SURGEON: Kvng Gordon, PHARMACY ORDER ENTRY TECHNICIAN: Rick Belle, MS3 SPECIMEN: One polyp from the ascending colon and one polyp from the sigmoid colon. BLOOD LOSS: Scant. FLUIDS: Per anesthesia. POSTOPERATIVE CONDITION: Stable. INDICATION FOR PROCEDURE: The patient is a 54-year-old female, who needed a screening colonoscopy, was attempted last time and she had a poor prep. FINDINGS: The patient had two polyps, large polyps seen and some internal hemorrhoids. Unfortunately, she also had again a poor prep this time. PROCEDURE NOTE: After informed consent was obtained, the patient was brought to the endoscopy suite, placed in the bed in left lateral decubitus position. She was administered IV sedation by the YEAST DISTILLER, who then monitored her vitals the entire time, heart rate, blood pressure and pulse ox. Scope was inserted and immediately upon entry, noted a lot of fecal material, mostly liquid, able to suction some of this out, but had some large retained pieces of fecal material. Pushed in, able to get all the way to the cecum, took a picture of the appendiceal orifice. Again, still had some fecal material in here. Noted the ileocecal valve, slowly withdrew the scope insufflating the circumferential jung looking at the cecum up the ascending colon. At the top of the ascending colon just before the hepatic flexure, saw a large polyp. I elected to do a snare polypectomy, had to take this in two pieces because it was around the corner, I got this and removed this out and then continued down the transverse colon to the splenic flexure, into the descending colon, down into the sigmoid. In the sigmoid, saw another polyp. Again, while suctioning out some of the fecal material, saw another large polyp, did snare polypectomy of this, suctioned this out, into the rectum, retroflexed in the rectal vault, saw some internal hemorrhoids, took a picture of this, again could not completely clear all the jung and may have had more polyps, but could not see because of poor prep. The patient will need repeat colonoscopy within a year; hopefully, less than. Scope removed. The patient tolerated the procedure and recovered in endoscopy suite. Job ID: [id number] DocumentID: [id number] Dictated Date: 06/02/2019 11:52:43 Color Laboratory Technician Date: 06/02/2019 14:38:53 Dictated By: KVNG GORDON DO
== END 2019-06-02 12:33 | disposition home or self-care (01) ==
LOC: ENDO 08:49
PROVIDERS: ATTEND Surgery
DX: Z12.11 Encounter for screening for malignant neoplasm of colon (principal); D12.2 Benign neoplasm of ascending colon; D12.5 Benign neoplasm of sigmoid colon; K64.8 Other hemorrhoids; Z79.1 Long term (current) use of non-steroidal anti-inflammatories (NSAID); E66.9 Obesity, unspecified; Z68.36 Body mass index [BMI] 36.0-36.9, adult; F17.210 Nicotine dependence, cigarettes, uncomplicated; I10 Essential (primary) hypertension; G47.33 Obstructive sleep apnea (adult) (pediatric); J44.9 Chronic obstructive pulmonary disease, unspecified; E11.9 Type 2 diabetes mellitus without complications; Z86.010 Personal history of colon polyps; Z79.899 Other long term (current) drug therapy; Z83.3 Family history of diabetes mellitus; Z90.710 Acquired absence of both cervix and uterus; Z96.41 Presence of insulin pump (external) (internal); Z85.528 Personal history of other malignant neoplasm of kidney; Z90.5 Acquired absence of kidney
CPT/HCPCS: 82962; 94640

== ENCOUNTER 2019-06-12 20:56 | Emergency (ER) | payer MEDICARE, MEDICAID ==
[~2019-06-12] VITALS: Ht 170.2 cm; Wt 108.0 kg
[~2019-06-12 20:56] MED LIST changes: -LACTATED RINGERS 1,000 ML IV ONE; +ZPR80C PO
[2019-06-12 21:34] LABS: BACTERIA,URINE TRACE /HPF; BILIRUBIN,URINE NEGATIVE (NEGATIVE); CLARITY,URINE CLEAR; COLOR,URINE YELLOW; GLUCOSE, URINE (UA) NEGATIVE (NEGATIVE); KETONES,URINE NEGATIVE (NEGATIVE); LEUKOCYTE ESTERASE ,URINE NEGATIVE (NEGATIVE); NITRITE,URINE NEGATIVE (NEGATIVE); PROTEIN,URINE NEGATIVE (NEGATIVE); SQUAMOUS EPITHELIAL CELL,UR 0-2 /HPF
--- NOTE | 2019-06-12 21:34 | Diagnostic Imaging Report ---
EXAMINATION: Chest radiograph, portable AP view. DATE: 06/12/2019 9:32 PM. INDICATION: 54-year-old female, shortness of breath. COMPARISON: April 14, 2019. FINDINGS: There is a left-sided port catheter with tip overlying the upper SVC. Heart size and mediastinal contours are unchanged. There is no identified pneumothorax. There is no large pleural effusion. There is no identified focal airspace consolidation. IMPRESSION: No identified acute cardiopulmonary abnormality. Dictated by: Dictated on workstation # [id number]
[2019-06-12 21:39] LABS: AMPHETAMINE SCREEN, URINE NEGATIVE (NEGATIVE); BARBITURATE SCREEN URINE NEGATIVE (NEGATIVE); BENZODIAZEPINES SCREEN URINE NEGATIVE (NEGATIVE); CANNABINOID SCREEN, URINE POSITIVE (NEGATIVE); COCAINE SCREEN URINE NEGATIVE (NEGATIVE); METHADONE STAT NEGATIVE (NEGATIVE); METHAMPHETAMINE SCREEN URINE S NEGATIVE (NEGATIVE); OPIATE SCREEN URINE NEGATIVE (NEGATIVE); OXYCODONE STAT NEGATIVE (NEGATIVE); PROPOXYPHENE STAT NEGATIVE (NEGATIVE); TRICYCLIC ANTIDEPRESSANTS SCRE NEGATIVE (NEGATIVE)
[2019-06-12 21:46] LABS: BASOPHILS # (AUTO) 0.1 10^3/uL (0.0-0.1); BASOPHILS % (AUTO) 1 % (0-10); EOSINOPHILS # (AUTO) 0.3 10^3/uL (0.0-0.3); EOSINOPHILS % (AUTO) 4 % (0-10); HEMATOCRIT 39 % (35-52); LYMPHOCYTES # (AUTO) 3.3 X 10^3 (1.0-4.0); LYMPHOCYTES % (AUTO) 36 % (12-44); MEAN CORPUSCULAR HEMOGLOBIN 27 PG (25-34); MEAN CORPUSCULAR HGB CONC 31 G/DL (32-36); MEAN CORPUSCULAR VOLUME 88 FL (80-99); MEAN PLATELET VOLUME 9.6 FL (7.4-10.4); MONOCYTES # (AUTO) 0.6 X 10^3 (0.0-1.0); MONOCYTES % (AUTO) 7 % (0-12); NEUTROPHILS # (AUTO) 4.8 X 10^3 (1.8-7.8); NEUTROPHILS % (AUTO) 52 % (42-75); PLATELET COUNT 246 10^3/uL (130-400); RED CELL DISTRIBUTION WIDTH 17.8 % (10.0-14.5); WHITE BLOOD COUNT 9.2 10^3/uL (4.3-11.0)
[2019-06-12 22:07] LABS: ALANINE AMINOTRANSFERASE 11 U/L (0-55); ALBUMIN 3.8 GM/DL (3.2-4.5); ALKALINE PHOSPHATASE 122 U/L (40-136); BILIRUBIN,TOTAL < 0.2 MG/DL (0.1-1.0); BUN/CREATININE RATIO 13; CALCIUM 9.1 MG/DL (8.5-10.1); CARBON DIOXIDE 25 MMOL/L (21-32); CHLORIDE 102 MMOL/L (98-107); CREATININE SERUM 1.12 MG/DL (0.60-1.30); GFR ESTIMATED 51; GLUCOSE 93 MG/DL (70-105); POTASSIUM 4.1 MMOL/L (3.6-5.0); SODIUM 139 MMOL/L (135-145); TOTAL PROTEIN 7.5 GM/DL (6.4-8.2)
--- NOTE | 2019-06-12 22:22 | NUR ---
[facility] THAT A [facility]CREENER WILL RETURN CALL SHORTLY.
--- NOTE | 2019-06-12 22:24 | NUR ---
PT INFORMED THAT SCREENER WILL BE CONTACTING HER SHORTLY. PT REQUESTED ANOTHER ORANGE JUICE AND ONE WAS GIVEN.
--- NOTE | 2019-06-12 23:05 | NUR ---
SCREENER CALLED AND STARTED VIDEO CHAT WITH PT.
[2019-06-13] VITALS: BP 133/81
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
== END 2019-06-13 | disposition home or self-care (01) ==
LOC: EDUNIT# 20:56 → ER FS 20:58
DX: F39 Unspecified mood [affective] disorder (principal); J45.909 Unspecified asthma, uncomplicated; I10 Essential (primary) hypertension; B19.20 Unspecified viral hepatitis C without hepatic coma; E11.9 Type 2 diabetes mellitus without complications; F17.210 Nicotine dependence, cigarettes, uncomplicated; Z87.442 Personal history of urinary calculi; Z79.84 Long term (current) use of oral hypoglycemic drugs; Z90.710 Acquired absence of both cervix and uterus; Z90.89 Acquired absence of other organs; Z98.51 Tubal ligation status; Z85.528 Personal history of other malignant neoplasm of kidney
CPT/HCPCS: 36415; 71045; 80053; 80306; 80320; 81000; 84484; 85025; 93005

== ENCOUNTER 2019-06-17 23:42 | Emergency (ER) | payer MEDICARE, MEDICAID ==
[~2019-06-17] VITALS: Ht 170.1 cm; Wt 108.0 kg
[~2019-06-17 23:42] MED LIST changes: -METF750T2 PO; +METF750T45 PO; -TRAM50TA2 PO; +TRM50T PO; +ZIPR80CA21; -ZIPR80CA23
--- NOTE | 2019-06-18 00:16 | ED General ---
General Chief Complaint: Oral/Throat Problems Stated Complaint: DIABETIC PROBLEMS Nursing Triage Note: pt her because her tongue is sore and she is out of insulin for her insulin pump. while going through purse pt found insulin Nursing Sepsis Screen: No Definite Risk History of Present Illness Date Seen by Provider: Jun 18, 2019 Time Seen by Provider: 00:01 Initial Comments Patient is here for several complaints did talk about her insulin pump needing to be put back together and we helped her do that also worried about anxiety related to family issues discussed that for a long period time also concerned about her lab and x-ray that were true retrieved on the last visit here. She has been following with her counselor she has been feeling better after her family is returned from long term and they have a chance to be together. Timing/Duration: 1-2 Days Severity: Mild Associated Systoms: Denies Symptoms Allergies and Home Medications Allergies Coded Allergies: No Known Drug Allergies (Unverified , 05/06/19) Home Medications Atorvastatin Calcium 10 Mg Tablet, 10 MG PO HS, (Reported) Escitalopram Oxalate 10 Mg Tablet, 10 MG PO DAILY, (Reported) Ibuprofen 800 Mg Tablet, 800 MG PO Q8H PRN for PAIN-MILD, (Reported) Linagliptin 5 Mg Tablet, 5 MG PO DAILY, (Reported) Lisinopril 5 Mg Tablet, 5 MG PO DAILY, (Reported) Metformin HCl 750 Mg Tab.er.24h, 1,500 MG PO HS, (Reported) Nebivolol HCl 10 Mg Tab, 10 MG PO DAILY, (Reported) Olanzapine 10 Mg Tablet, 10 MG PO HS, (Reported) Tramadol HCl 50 Mg Tablet, 50 MG PO PRN, (Reported) Ziprasidone 80 Mg Cap, 160 MG PO HS, (Reported) Patient Home Medication List Home Medication List Reviewed: Yes Review of Systems Review of Systems Constitutional: no symptoms reported EENTM: no symptoms reported Respiratory: no symptoms reported Cardiovascular: no symptoms reported Gastrointestinal: no symptoms reported Genitourinary: no symptoms reported Musculoskeletal: no symptoms reported Skin: no symptoms reported Psychiatric/Neurological: Anxiety, Depressed Past Glwhkxk-Wbssjf-Wxsrae Hx Past Med/Social Hx: Reviewed Nursing Past Med/Soc Hx Patient Social History Alcohol Use: Denies Use Recreational Drug Use: Yes Drug of Choice: marijuana Type Used: Cigarettes 2nd Hand Smoke Exposure: Yes Recent Foreign Travel: No Contact w/Someone Who Travel: No Recent Infectious Disease Expo: No Recent Hopitalizations: No Physical Abuse: No Sexual Abuse: No Mistreated: No Fear: No Seasonal Allergies Seasonal Allergies: No Past Medical History Surgeries: Yes Abdominal, Hysterectomy, Nephrectomy, Tonsillectomy, Tubal Ligation Respiratory: Yes Asthma Currently Using CPAP: No Currently Using BIPAP: No Cardiac: Yes Hypertension 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 has multiple lesions on her abd and under the folds.) Blood Disorders: Yes (HEP C) Adverse Reaction/Blood Tranf: No Physical Exam Vital Signs Vital Signs - First Documented 06/18/19 00:00 Temp 36.6 Pulse 106 Resp 18 B/P (MAP) 157/76 (103) Pulse Ox 98 O2 Delivery Room Air Capillary Refill : Less Than 3 Seconds Height, Weight, BMI Height: 5'7.00" Weight: 224lbs. 0.0oz. 101.995365mg; 37.00 BMI Method:Actual General Appearance: No Apparent Distress, WD/WN Eyes: Bilateral Eye PERRL, Bilateral Eye EOMI HEENT: PERRL/EOMI, TMs Normal, Normal ENT Inspection, Pharynx Normal Neck: Full Range of Motion, Non Tender Respiratory: Lungs Clear, No Respiratory Distress Cardiovascular: Regular Rate, Rhythm, No Murmur Gastrointestinal: Normal Bowel Sounds, Non Tender, Soft Extremity: Normal Inspection, Non Tender Neurologic/Psychiatric: Alert, Oriented x3 Skin: Normal Color, Warm/Dry Progress/Results/Core Measures Suspected Sepsis Recent Fever Within 48 Hours: No Infection Criteria Present: None New/Unexplained Altered Menta: No Sepsis Screen: No Definite Risk SIRS Temperature: Pulse: 106 Respiratory Rate: 18 Blood Pressure 157 /76 Mean: 103 Results/Orders Vital Signs/I&O 06/18/19 00:00 Temp 36.6 Pulse 106 Resp 18 B/P (MAP) 157/76 (103) Pulse Ox 98 O2 Delivery Room Air Capillary Refill : Less Than 3 Seconds Blood Pressure Mean: 103 POS Departure Impression Primary Impression: Anxiety Disposition: 01 HOME, SELF-CARE Condition: Stable Departure-Patient Inst. Referrals: MANASA WILCOX MD (PCP/Family) Primary Care Physician Patient Instructions: Anxiety, Adult (DC) MAKSIM RICCI JR, MD Jun 18, 2019 00:16 POS
[2019-06-18 00:22] VITALS: BP 157/76
--- OUTSIDE RECORDS SUMMARY | 2019-07-13 12:31 | XMS REPORT | Continuity of Care Document ---
Demographics Preferred Language Unknown Marital Status Unknown Muslim Affiliation Unknown Race Unknown Ethnic Group Unknown Author Organization Unknown Address Unknown Phone Unavailable Allergies Active Description Code Type Severity Reaction Onset Reported/Identified Relationship to Patient Clinical Status Yes No Known Medication Allergies Drug N/A N/A Yes NO KNOWN DRUG ALLERGIES UNKNOWN UNKNOWN Yes No Known Drug Allergies [id number] Drug Allergy Unknown N/A 05/06/2019 Medications Medication Packaging Start Date St op Date Route Dosage Sig IPRATROPIUM/ALBUTEROL INH SO LN (DUO-NEB INH SOLN) MLS 06/30/2019 07/10/2019 Q4H&0200,0600,1000,1400,1800 ,2200 METHYLPREDNISOLONE VIAL INJ 125 MG/2CC (SOLU-MEDROL VIAL) MG 06/30/2019 07/05/2019 Q6H&0600,1200,1800,2359 LEVOFLOXACIN TAB 750 MG (LEVAQUIN) MG 06/30/2019 07/10/2019 Daily&1930 FLUTICASONE/SALMETEROL MDI 2 50 /50MCG (ADVAIR DISKUS) PUFF 06/30/2019 07/07/2019 BID&0800,2000 ZIPRASIDONE CAP 80 MG (GEODON) Dose(s) 06/30/2019 07/07/2019 CONTINUOUSEVERY 0 Hour TRAMADOL TAB 50 MG (ULTRAM) Dose(s) 06/30/2019 07/07/2019 EVERY 6 Hour&0300,0900,1500,2100 ALBUTEROL INHALER MDI 8 GM (VENTOLIN HFA) Dose(s) 06/30/2019 07/10/2019 PRN QID ACETAMINOPHEN ORAL TABLET 325mg(Tylenol) MG 07/01/2019 07/30/2019 PRN EVERY 6 Hour ACETAMINOPHEN SUPPOS SUP 650 MG (TYLENOL) MG 07/01/2019 07/07/2019 PRN Q4H ALUM/MAG/SIMETH 30CC LIQ (MYLANTA PLUS) cc 07/01/2019 07/10/2019 PRN Q4H GUAIFENESIN - DM LIQ (ROBITUSSIN DM) MLS 07/01/2019 07/07/2019 PRN Q4H ALPRAZOLAM TAB 0.25 MG (XANAX) MG 07/01/2019 07/10/2019 PRN Q6H CLONIDINE TAB 0.1 MG (CATAPRES) MG 07/01/2019 07/07/2019 PRN Q6H ONDANSETRON VIAL INJ 4 MG/2CC (ZOFRAN 2CC VIAL) MG 07/01/2019 07/07/2019 PRN Q6H DIPHENHYDRAMINE CAP 25 MG (BENADRYL) MG 07/01/2019 07/07/2019 PRN Q6H HYDROCODONE/APAP 5MG/325MG T AB 5 MG/325MG (HARLEY-TAB 5/325) TAB 07/01/2019 07/10/2019 PRN Q6H LORATADINE TAB 10 MG (CLARITIN) MG 07/01/2019 07/07/2019 QAM&0800 Docusate sodium 100mg oral capsule (COLACE ) MG 07/01/2019 07/30/2019 PRN BID LACTULOSE SYRUP LIQ 20 GM/30 CC (CHRONULAC SYRUP) GM 07/01/2019 07/30/2019 BID&0800,2000 LEVOFLOXACIN TAB 750 MG (LEVAQUIN) MG 07/01/2019 07/10/2019 Daily&0900 ENOXAPARIN SYRINGE INJ 40 MG (LOVENOX SYRI NGE) MG 07/01/2019 07/10/2019 Daily&0900 BISACODYL TAB 5 MG (DULCOLAX) MG 07/01/2019 07/07/2019 PRN Daily MONTELUKAST TAB 10 MG (SINGULAIR) MG 07/01/2019 07/30/2019 Daily&0900 POLYETHYLENE GLYCOL POWDER U D PWD (MIRALAX 17GM UNIT DOSE PAKS) gm 07/01/2019 07/07/2019 Daily&0900 BISACODYL SUPPOS 10 MG (DULCOLAX SUPPOS) MG 07/01/2019 07/07/2019 PRN Daily MILK OF MAGNESIA LIQ ml 07/01/2019 07/30/2019 PRN Daily ZIPRASIDONE CAP 80 MG (GEODON) Dose(s) 07/01/2019 07/07/2019 QHS&2000 MELATONIN TAB 3 MG (MELATONIN) MG 07/01/2019 07/30/2019 PRN QHS SENNA CONC/DOCUSATE TAB (SENOKOT S) TAB 07/02/2019 07/31/2019 BID&0800,2000 METHYLPREDNISOLONE VIAL INJ 125 MG/2CC (SOLU-MEDROL VIAL) MG 07/02/2019 07/06/2019 BID&0800,2000 ROFLUMILAST TAB 500 MCG (DALIRESP) MCG 07/02/2019 07/08/2019 Daily&0900 ESCITALOPRAM TAB 10 MG (LEXAPRO) MG 07/02/2019 07/08/2019 Daily&1700 NICOTINE PATCH PAT 21 MG (NICODERM) MG 07/02/2019 07/08/2019 Daily&1700 METHYLPREDNISOLONE VIAL INJ 125 MG/2CC (SOLU-MEDROL VIAL) MG 07/02/2019 07/07/2019 BID&0600,1800 INSULIN ASPART PEN INJ 100 U NITS/CC (NOVOLOG FLEXPEN) Dr. Davis 07/03/2019 07/03/2019 ONCE&1814 OLANZAPINE TAB 10 MG (ZYPREXA) MG 07/03/2019 08/01/2019 QPM&2100 ZIPRASIDONE CAP 80 MG (GEODON) Dose(s) 07/03/2019 07/12/2019 QHS&2100 INSULIN ASPART PEN INJ 100 U NITS/CC (NOVOLOG FLEXPEN) Dr. Davis 07/03/2019 07/18/2019 Q3H&0000,0300,06 00,0900,1200,1500,1800,2100 Problems Date Dx Coded Attending Type Code Diagnosis Diagnosed By 07/05/2010 HEATHER IRVIN APRN 278 .01 OBESITY MORBID 07/05/2010 HEATHER IRVIN APRN 380 .10 Infective Otitis Externa, Unspecified 07/05/2010 BRANDEEHEATHER JONES APRN V15 .82 TOBACCOISM 07/05/2010 BRANDEEHEATHER JONES APRN 278 .01 OBESITY MORBID 07/05/2010 BRANDEEHEATHER JONES APRN 380 .10 Infective Otitis Externa, Unspecified 07/05/2010 HEATHER IRVIN APRN V15 .82 TOBACCOISM 07/05/2010 BRANDEEHEATHER JONES APRN 278 .01 OBESITY MORBID 07/05/2010 BRANDEEHEATHER JONES APRN 380 .10 Infective Otitis Externa, Unspecified 07/05/2010 HEATHER IRVIN APRN V15 .82 TOBACCOISM 07/05/2010 [facility] ON LINE CSR, HEATHER 278 .01 OBESITY MORBID 07/05/2010 [facility] ON LINE CSR, HEATHER 380 .10 Infective Otitis Externa, Unspecified 07/05/2010 [facility] ON LINE CSR, HEATHER V15 .82 TOBACCOISM 07/05/2010 [facility] ON LINE CSR, HEATHER 278 .01 OBESITY MORBID 07/05/2010 [facility] ON LINE CSR, HEATHER 380 .10 Infective Otitis Externa, Unspecified 07/05/2010 [facility] ON LINE CSR, HEATHER V15 .82 TOBACCOISM 07/05/2010 [facility] ON LINE CSR, HEATHER 278 .01 OBESITY MORBID 07/05/2010 [facility] ON LINE CSR, HEATHER 380 .10 Infective Otitis Externa, Unspecified 07/05/2010 [facility] ON LINE CSR, HEATHER V15 .82 TOBACCOISM 07/05/2010 [facility] ON LINE CSR, HEATHER 278 .01 OBESITY MORBID 07/05/2010 [facility] ON LINE CSR, HEATHER 380 .10 Infective Otitis Externa, Unspecified 07/05/2010 [facility] ON LINE CSR, HEATHER V15 .82 TOBACCOISM 07/05/2010 [facility] ON LINE CSR, MARIANNA 278.01 OBESITY MORBID 07/05/2010 [facility] ON LINE CSR, MARIANNA 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, Unspecified 07/05/2010 [facility] ON LINE CSR, MARIANNA V15.82 TOBACCOISM 07/05/2010 [facility] ON LINE CSR, MARIANNA 278.01 OBESITY MORBID 07/05/2010 [facility] ON LINE CSR, MARIANNA 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, Unspecified 07/05/2010 [facility] ON LINE CSR, MARIANNA V15.82 TOBACCOISM 07/07/2010 [facility] ON LINE CSR, HEATHER 280 .9 Anemia Hypochromic / Microcytic 07/07/2010 [facility] ON LINE CSR, HEATHER 796 .2 Prehypertension 07/07/2010 [facility] ON LINE CSR, HEATHER V04 .81 Influenza Vaccine 07/07/2010 [facility] ON LINE CSR, HEATHER V68 .89 Encounters For Other Specified Administrative Purpose 07/07/2010 [facility] ON LINE CSR, HEATHER V72 .31 Routine Pelvic Exam 07/07/2010 [facility] ON LINE CSR, HEATHER 280 .9 Anemia Hypochromic / Microcytic 07/07/2010 [facility] ON LINE CSR, HEATHER 796 .2 Prehypertension 07/07/2010 [facility] ON LINE CSR, HEATHER V04 .81 Influenza Vaccine 07/07/2010 [facility] ON LINE CSR, HEATHER V68 .89 Encounters For Other Specified Administrative Purpose 07/07/2010 [facility] ON LINE CSR, HEATHER V72 .31 Routine Pelvic Exam 07/07/2010 [facility] ON LINE CSR, HEATHER 280 .9 Anemia Hypochromic / Microcytic 07/07/2010 [facility] ON LINE CSR, HEATHER 796 .2 Prehypertension 07/07/2010 [facility] ON LINE CSR, HEATHER V04 .81 Influenza Vaccine 07/07/2010 [facility] ON LINE CSR, HEATHER V68 .89 Encounters For Other Specified Administrative Purpose 07/07/2010 [facility] ON LINE CSR, HEATHER V72 .31 Routine Pelvic Exam 07/07/2010 [facility] ON LINE CSR, HEATHER 280 .9 Anemia Hypochromic / Microcytic 07/07/2010 [facility] ON LINE CSR, HEATHER 796 .2 Prehypertension 07/07/2010 [facility] ON LINE CSR, HEATHER V04 .81 Influenza Vaccine 07/07/2010 [facility] ON LINE CSR, HEATHER V68 .89 Encounters For Other Specified Administrative Purpose 07/07/2010 [facility] ON LINE CSR, HEATHER V72 .31 Routine Pelvic Exam 07/07/2010 [facility] ON LINE CSR, HEATHER 280 .9 Anemia Hypochromic / Microcytic 07/07/2010 [facility] ON LINE CSR, HEATHER 796 .2 Prehypertension 07/07/2010 [facility] LINE CSR, HEATHER V04 .81 Influenza Vaccine 07/07/2010 [facility] ON LINE CSR, HEATHER V68 .89 Encounters For Other Specified Administrative Purpose 07/07/2010 [facility] ON LINE CSR, HEATHER V72 .31 Routine Pelvic Exam 07/07/2010 [facility] ON LINE CSR, HEATHER 280 .9 Anemia Hypochromic / Microcytic 07/07/2010 [facility] ON LINE CSR, HEATHER 796 .2 Prehypertension 07/07/2010 [facility] ON LINE CSR, HEATHER V04 .81 Influenza Vaccine 07/07/2010 [facility] ON LINE CSR, HEATHER V68 .89 Encounters For Other Specified Administrative Purpose 07/07/2010 [facility] ON LINE CSR, HEATHER V72 .31 Routine Pelvic Exam 07/07/2010 [facility] ON LINE CSR, HEATHER 280 .9 Anemia Hypochromic / Microcytic 07/07/2010 [facility] ON LINE CSR, HEATHER 796 .2 Prehypertension 07/07/2010 [facility] ON LINE CSR, HEATHER V04 .81 Influenza Vaccine 07/07/2010 [facility] ON LINE CSR, HEATHER V68 .89 Encounters For Other Specified Administrative Purpose 07/07/2010 [facility] ON LINE CSR, HEATHER V72 .31 Routine Pelvic Exam 07/07/2010 [facility] ON LINE CSR MARIANNA 28 0.9 Anemia Hypochromic / Microcytic 07/07/2010 [facility] ON LINE CSR MARIANNA 79 6.2 Prehypertension 07/07/2010 [facility] ON LINE CSR MARIANNA V04.81 Influenza Vaccine 07/07/2010 [facility] ON LINE CSR MARIANNA V68.89 Encounters For Other Specified Administrative Purpose 07/07/2010 [facility] ON LINE CSRENE V72.31 Routine Pelvic Exam 07/07/2010 [facility] ON LINE CSRSOFYAMARIANNA 28 0.9 Anemia Hypochromic / Microcytic 07/07/2010 [facility] ON LINE CSRENE 79 6.2 Prehypertension 07/07/2010 [facility] ON LINE CSR MARIANNA V04.81 Influenza Vaccine 07/07/2010 [facility] ON LINE CSR MARIANNA V68.89 Encounters For Other Specified Administrative Purpose 07/07/2010 [facility] ON LINE CSR MARIANNA V72.31 Routine Pelvic Exam 10/20/2010 [facility] ON LINE CSR, HEATHER 112 .1 Candidiasis, Of Vulva And Vagina 10/20/2010 [facility] ON LINE CSR, HEATHER 599 .0 Uti 10/20/2010 [facility] ON LINE CSR, HEATHER 112 .1 Candidiasis, Of Vulva And Vagina 10/20/2010 [facility] ON LINE CSR, HEATHER 599 .0 Uti 10/20/2010 [facility] ON LINE CSR, HEATHER 112 .1 Candidiasis, Of Vulva And Vagina 10/20/2010 [facility] ON LINE CSR, HEATHER 599 .0 Uti 10/20/2010 [facility] ON LINE CSR, HEATHER 112 .1 Candidiasis, Of Vulva And Vagina 10/20/2010 [facility] ON LINE CSR, HEATHER 599 .0 Uti 10/20/2010 [facility] ON LINE CSR, HEATHER 112 .1 Candidiasis, Of Vulva And Vagina 10/20/2010 [facility] ON LINE CSR, HEATHER 599 .0 Uti 10/20/2010 [facility] ON LINE CSR, HEATHER 112 .1 Candidiasis, Of Vulva And Vagina 10/20/2010 [facility] ON LINE CSR, HEATHER 599 .0 Uti 10/20/2010 [facility] ON LINE CSR, HEATHER 112 .1 Candidiasis, Of Vulva And Vagina 10/20/2010 [facility] ON LINE CSR, HEATHER 599 .0 Uti 10/20/2010 [facility] ON LINE CSR, MARIANNA 11 2.1 Candidiasis, Of Vulva And Vagina 10/20/2010 [facility] ON LINE CSR, MARIANNA 59 9.0 Uti 10/20/2010 [facility] ON LINE CSR, MARIANNA 11 2.1 Candidiasis, Of Vulva And Vagina 10/20/2010 [facility] ON LINE CSR, MARIANNA 59 9.0 Uti 10/24/2010 [facility] ON LINE CSR, HEATHER 250 .00 DIABETES MELLITUS TYPE 2 10/24/2010 [facility] ON LINE CSR, HEATHER 466 .0 Bronchitis, Acute 10/24/2010 [facility] ON LINE CSR, HEATHER 496 PULMONARY OBSTRUCTIVE DISORDERS 10/24/2010 [facility] ON LINE CSR, HEATHER 250 .00 DIABETES MELLITUS TYPE 2 10/24/2010 [facility] ON LINE CSR, HEATHER 466 .0 Bronchitis, Acute 10/24/2010 [facility] ON LINE CSR, HEATHER 496 PULMONARY OBSTRUCTIVE DISORDERS 10/24/2010 [facility] ON LINE CSR, HEATHER 250 .00 DIABETES MELLITUS TYPE 2 10/24/2010 [facility] ON LINE CSR, HEATHER 466 .0 Bronchitis, Acute 10/24/2010 [facility] ON LINE CSR, HEATHER 496 PULMONARY OBSTRUCTIVE DISORDERS 10/24/2010 [facility] ON LINE CSR, HEATHER 250 .00 DIABETES MELLITUS TYPE 2 10/24/2010 [facility] ON LINE CSR, HEATHER 466 .0 Bronchitis, Acute 10/24/2010 [facility] ON LINE CSR, HEATHER 496 PULMONARY OBSTRUCTIVE DISORDERS 10/24/2010 [facility] ON LINE CSR, HEATHER 250 .00 DIABETES MELLITUS TYPE 2 10/24/2010 [facility] ON LINE CSR, HEATHER 466 .0 Bronchitis, Acute 10/24/2010 [facility] ON LINE CSR, HEATHER 496 PULMONARY OBSTRUCTIVE DISORDERS 10/24/2010 [facility] ON LINE CSR, HEATHER 250 .00 DIABETES MELLITUS TYPE 2 10/24/2010 [facility] ON LINE CSR, HEATHER 466 .0 Bronchitis, Acute 10/24/2010 [facility] ON LINE CSR, HEATHER 496 PULMONARY OBSTRUCTIVE DISORDERS 10/24/2010 [facility] ON LINE CSR, HEATHER 250 .00 DIABETES MELLITUS TYPE 2 10/24/2010 [facility] ON LINE CSR, HEATHER 466 .0 Bronchitis, Acute 10/24/2010 [facility] ON LINE CSR, HEATHER 496 PULMONARY OBSTRUCTIVE DISORDERS 10/24/2010 [facility] ON LINE CSR, MARIANNA 250.00 DIABETES MELLITUS TYPE 2 10/24/2010 [facility] ON LINE CSR, MARIANNA 46 6.0 Bronchitis, Acute 10/24/2010 [facility] ON LINE CSR, MARIANNA 49 6 PULMONARY OBSTRUCTIVE DISORDERS 10/24/2010 [facility] ON LINE CSR, MARIANNA 250.00 DIABETES MELLITUS TYPE 2 10/24/2010 [facility] ON LINE CSR, MARIANNA 46 6.0 Bronchitis, Acute 10/24/2010 [facility] ON LINE CSR, MARIANNA 49 6 PULMONARY OBSTRUCTIVE DISORDERS 05/12/2011 [facility] ON LINE CSR, HEATHER 703 .0 Ingrowing Nail 05/12/2011 [facility] ON LINE CSR, HEATHER 726 .91 EXOSTOSIS OF UNSPECIFIED SITE 05/12/2011 [facility] ON LINE CSR, HEATHER 703 .0 Ingrowing Nail 05/12/2011 [facility] ON LINE CSR, HEATHER 726 .91 EXOSTOSIS OF UNSPECIFIED SITE 05/12/2011 [facility] ON LINE CSR, HEATHER 703 .0 Ingrowing Nail 05/12/2011 [facility] ON LINE CSR, HEATHER 726 .91 EXOSTOSIS OF UNSPECIFIED SITE 05/12/2011 [facility] ON LINE CSR, HEATHER 703 .0 Ingrowing Nail 05/12/2011 [facility] ON LINE CSR, HEATHER 726 .91 EXOSTOSIS OF UNSPECIFIED SITE 05/12/2011 [facility] ON LINE CSR, HEATHER 703 .0 Ingrowing Nail 05/12/2011 [facility] ON LINE CSR, HEATHER 726 .91 EXOSTOSIS OF UNSPECIFIED SITE 05/12/2011 [facility] ON LINE CSR, HEATHER 703 .0 Ingrowing Nail 05/12/2011 [facility] ON LINE CSR, HEATHER 726 .91 EXOSTOSIS OF UNSPECIFIED SITE 05/12/2011 [facility] ON LINE CSR, HEATHER 703 .0 Ingrowing Nail 05/12/2011 [facility] ON LINE CSR, HEATHER 726 .91 EXOSTOSIS OF UNSPECIFIED SITE 05/12/2011 [facility] ON LINE CSR, MARIANNA 70 3.0 Ingrowing Nail 05/12/2011 [facility] ON LINE CSR, MARIANNA 726.91 EXOSTOSIS OF UNSPECIFIED SITE 05/12/2011 [facility] ON LINE CSR, MARIANNA 70 3.0 Ingrowing Nail 05/12/2011 [facility] ON LINE CSR, MARIANNA 726.91 EXOSTOSIS OF UNSPECIFIED SITE 06/02/2011 [facility] ON LINE CSR, HEATHER 078 .12 Plantar Wart 06/02/2011 [facility] ON LINE CSR, HEATHER 078 .12 Plantar Wart 06/02/2011 [facility] ON LINE CSR, HEATHER 078 .12 Plantar Wart 06/02/2011 [facility] ON LINE CSR, HEATHER 078 .12 Plantar Wart 06/02/2011 [facility] ON LINE CSR, HEATHER 078 .12 Plantar Wart 06/02/2011 [facility] ON LINE CSR, HEATHER 078 .12 Plantar Wart 06/02/2011 [facility] ON LINE CSR, HEATHER 078 .12 Plantar Wart 06/02/2011 [facility] ON LINE CSR, MARIANNA 078.12 Plantar Wart 06/02/2011 [facility] ON LINE CSR, MARIANNA 078.12 Plantar Wart 07/05/2011 [facility] ON LINE CSR, HEATHER 466 .0 ACUTE BRONCHITIS 07/05/2011 [facility] ON LINE CSR, HEATHER 466 .0 ACUTE BRONCHITIS 07/05/2011 [facility] ON LINE CSR, HEATHER 466 .0 ACUTE BRONCHITIS 07/05/2011 [facility] ON LINE CSR, HEATHER 466 .0 ACUTE BRONCHITIS 07/05/2011 [facility] ON LINE CSR, HEATHER 466 .0 ACUTE BRONCHITIS 07/05/2011 [facility] ON LINE CSR, HEATHER 466 .0 ACUTE BRONCHITIS 07/05/2011 [facility] ON LINE CSR, HEATHER 466 .0 ACUTE BRONCHITIS 07/05/2011 [facility] ON LINE CSR, MARIANNA 46 6.0 ACUTE BRONCHITIS 07/05/2011 [facility] ON LINE CSR, MARIANNA 46 6.0 ACUTE BRONCHITIS 11/20/2011 [facility] ON LINE CSR, HEATHER 682 .9 CELLULITIS 11/20/2011 [facility] ON LINE CSR, HEATHER 682 .9 CELLULITIS 11/20/2011 [facility] ON LINE CSR, HEATHER 682 .9 CELLULITIS 11/20/2011 [facility] ON LINE CSR, HEATHER 682 .9 CELLULITIS 11/20/2011 [facility] ON LINE CSR, HEATHER 682 .9 CELLULITIS 11/20/2011 [facility] ON LINE CSR, HEATHER 682 .9 CELLULITIS 11/20/2011 [facility] ON LINE CSR, HEATHER 682 .9 CELLULITIS 11/20/2011 [facility] ON LINE CSR, MARIANNA 68 2.9 CELLULITIS 11/20/2011 [facility] ON LINE CSR, MARIANNA 68 2.9 CELLULITIS 12/22/2011 [facility] ON LINE CSR, HEATHER 401 .1 ESSENTIAL HYPERTENSION BENIGN 12/22/2011 [facility] ON LINE CSR, HEATHER 401 .1 ESSENTIAL HYPERTENSION BENIGN 12/22/2011 [facility] ON LINE CSR, HEATHER 401 .1 ESSENTIAL HYPERTENSION BENIGN 12/22/2011 [facility] ON LINE CSR, HEATHER 401 .1 ESSENTIAL HYPERTENSION BENIGN 12/22/2011 [facility] ON LINE CSR, HEATHER 401 .1 ESSENTIAL HYPERTENSION BENIGN 12/22/2011 [facility] ON LINE CSR, HEATHER 401 .1 ESSENTIAL HYPERTENSION BENIGN 12/22/2011 [facility] ON LINE CSR, HEATHER 401 .1 ESSENTIAL HYPERTENSION BENIGN 12/22/2011 [facility] ON LINE CSR, MARIANNA 40 1.1 ESSENTIAL HYPERTENSION BENIGN 12/22/2011 [facility] ON LINE CSR, MARIANNA 40 1.1 ESSENTIAL HYPERTENSION BENIGN 04/09/2012 [facility] KYLE, HEATHER 272 .2 HYPERLIPIDEMIA 04/09/2012 [facility] ON LINE CSRHEATHER Sunshine V04 .81 Need For Prophylactic Vaccination And Inoculation Against Influenza 04/09/2012 [facility] HEATHER WRIGHT 272 .2 HYPERLIPIDEMIA 04/09/2012 [facility] HEATHER WRIGHT V04 .81 Need For Prophylactic Vaccination And Inoculation Against Influenza 04/09/2012 [facility] HEATHER WRIGHT 272 .2 HYPERLIPIDEMIA 04/09/2012 [facility] ON LINE CSR, EHATHER V04 .81 Need For Prophylactic Vaccination And Inoculation Against Influenza 04/09/2012 [facility] HEATHER WRIGHT 272 .2 HYPERLIPIDEMIA 04/09/2012 [facility] ON LINE CSRHEATHER Sunshine V04 .81 Need For Prophylactic Vaccination And Inoculation Against Influenza 04/09/2012 [facility] HEATHER WRIGHT 272 .2 HYPERLIPIDEMIA 04/09/2012 [facility] HEATHER WRIGHT V04 .81 Need For Prophylactic Vaccination And Inoculation Against Influenza 04/09/2012 [facility] HEATHER WRIGHT 272 .2 HYPERLIPIDEMIA 04/09/2012 [facility] ON LINE CSR, HEATHER V04 .81 Need For Prophylactic Vaccination And Inoculation Against Influenza 04/09/2012 [facility] ON LINE CSR, HEATHER 272 .2 HYPERLIPIDEMIA 04/09/2012 [facility] ON LINE CSR, HEATHER V04 .81 Need For Prophylactic Vaccination And Inoculation Against Influenza 04/09/2012 [facility] ON LINE CSRMARIANNA Sunshine 27 2.2 HYPERLIPIDEMIA 04/09/2012 [facility] ON LINE CSRMARIANNA Sunshine V04.81 Need For Prophylactic Vaccination And Inoculation Agai nst Influenza 04/09/2012 [facility] ON LINE CSRMARIANNA Sunshine 27 2.2 HYPERLIPIDEMIA 04/09/2012 [facility] ON LINE CSRMARIANNA V04.81 Need For Prophylactic Vaccination And Inoculation Agai nst Influenza 05/14/2012 [facility] ON LINE CSR, HEATHER 682 .9 Cellulitis/abscess 05/14/2012 [facility] ON LINE CSR, HEATHER 682 .9 Cellulitis/abscess 05/14/2012 [facility] ON LINE CSR, HEATHER 682 .9 Cellulitis/abscess 05/14/2012 [facility] ON LINE CSR, HEATHER 682 .9 Cellulitis/abscess 05/14/2012 [facility] ON LINE CSR, HEATHER 682 .9 Cellulitis/abscess 05/14/2012 [facility] ON LINE CSR, HEATHER 682 .9 Cellulitis/abscess 05/14/2012 [facility] ON LINE CSR, HEATHER 682 .9 Cellulitis/abscess 05/14/2012 [facility] ON LINE CSRMARIANNA Sunshine 68 2.9 Cellulitis/abscess 05/14/2012 MARIANNA FAUST APRN 68 2.9 Cellulitis/abscess 06/24/2012 [facility] ON LINE CSR, HEATHER 112 .1 Candidiasis, Of Vulva And Vagina 06/24/2012 [facility] ON LINE CSR, HEATHER 112 .1 Candidiasis, Of Vulva And Vagina 06/24/2012 [facility] ON LINE CSRHEATHER 112 .1 Candidiasis, Of Vulva And Vagina 06/24/2012 [facility] ON LINE CSR, HEATHER 112 .1 Candidiasis, Of Vulva And Vagina 06/24/2012 [facility] ON LINE CSR, HEATHER 112 .1 Candidiasis, Of Vulva And Vagina 06/24/2012 [facility] ON LINE CSRHEATHER 112 .1 Candidiasis, Of Vulva And Vagina 06/24/2012 [facility] ON LINE CSR, HEATHER 112 .1 Candidiasis, Of Vulva And Vagina 06/24/2012 [facility] ON LINE CSR MARIANNA 11 2.1 Candidiasis, Of Vulva And Vagina 06/24/2012 [facility] ON LINE CSR, MARIANNA 11 2.1 Candidiasis, Of Vulva And Vagina 06/28/2012 [facility] ON LINE CSR, HEATHER 110 .1 Onychomycosis 06/28/2012 [facility] ON LINE CSR, HEATHER 703 .8 Other Specified Diseases Of Nail 06/28/2012 [facility] ON LINE CSR, HEATHER 110 .1 Onychomycosis 06/28/2012 [facility] ON LINE CSR, HEATHER 703 .8 Other Specified Diseases Of Nail 06/28/2012 [facility] ON LINE CSR, HEATHER 110 .1 Onychomycosis 06/28/2012 [facility] ON LINE CSR, HEATHER 703 .8 Other Specified Diseases Of Nail 06/28/2012 [facility] ON LINE CSR, HEATHER 110 .1 Onychomycosis 06/28/2012 [facility] ON LINE CSR, HEATHER 703 .8 Other Specified Diseases Of Nail 06/28/2012 [facility] ON LINE CSR, HEATHER 110 .1 Onychomycosis 06/28/2012 [facility] ON LINE CSR, HEATHER 703 .8 Other Specified Diseases Of Nail 06/28/2012 [facility] ON LINE CSR, HEATHER 110 .1 Onychomycosis 06/28/2012 [facility] ON LINE CSR, HEATHER 703 .8 Other Specified Diseases Of Nail 06/28/2012 [facility] ON LINE CSR, HEATHER 110 .1 Onychomycosis 06/28/2012 [facility] ON LINE CSR, HEATHER 703 .8 Other Specified Diseases Of Nail 06/28/2012 [facility] ON LINE CSR MARIANNA 11 0.1 Onychomycosis 06/28/2012 [facility] ON LINE CSR, MARIANNA 70 3.8 Other Specified Diseases Of Nail 06/28/2012 [facility] ON LINE CSR MARIANNA 11 0.1 Onychomycosis 06/28/2012 [facility] ON LINE CSR, MARIANNA 70 3.8 Other Specified Diseases Of Nail 08/21/2012 [facility] ON LINE CSR, HEATHER 682 .9 Cellulitis/abscess 08/21/2012 [facility] ON LINE CSR, HEATHER V72 .31 Gynecological Exam 08/21/2012 [facility] CSR, HEATHER 682 .9 Cellulitis/abscess 08/21/2012 [facility] CSR, HEATHER V72 .31 Gynecological Exam 08/21/2012 [facility] CSR, HEATHER 682 .9 Cellulitis/abscess 08/21/2012 [facility] CSR, HEATHER V72 .31 Gynecological Exam 08/21/2012 [facility] CSR, HEATHER 682 .9 Cellulitis/abscess 08/21/2012 [facility] CSR, HEATHER V72 .31 Gynecological Exam 08/21/2012 [facility] CSR, HEATHER 682 .9 Cellulitis/abscess 08/21/2012 [facility] CSR, HEATHER V72 .31 Gynecological Exam 08/21/2012 [facility] CSR, HEATHER 682 .9 Cellulitis/abscess 08/21/2012 [facility] CSR, HEATHER V72 .31 Gynecological Exam 08/21/2012 [facility] CSR, HEATHER 682 .9 Cellulitis/abscess 08/21/2012 [facility] CSR, HEATHER V72 .31 Gynecological Exam 08/21/2012 [facility] ON LINE CSR, MARIANNA 68 2.9 Cellulitis/abscess 08/21/2012 [facility] ON [facility] CSR, MARIANNA V72.31 Gynecological Exam 08/21/2012 [facility] CSR, MARIANNA 68 2.9 Cellulitis/abscess 08/21/2012 [facility] ON [facility] CSR, MARIANNA V72.31 Gynecological Exam 10/08/2012 [facility] LINE CSR, HEATHER 466 .0 Bronchitis, Acute 10/08/2012 [facility] CSR, HEATHER 466 .0 Bronchitis, Acute 10/08/2012 [facility] ON LINE CSR, HEATHER 466 .0 Bronchitis, Acute 10/08/2012 [facility] CSR, HEATHER 466 .0 Bronchitis, Acute 10/08/2012 [facility] CSR, HEATHER 466 .0 Bronchitis, Acute 10/08/2012 [facility] CSR, HEATHER 466 .0 Bronchitis, Acute 10/08/2012 [facility] CSR, HEATHER 466 .0 Bronchitis, Acute 10/08/2012 [facility] CSR, MARIANNA 46 6.0 Bronchitis, Acute 10/08/2012 [facility] CSR, MARIANNA 46 6.0 Bronchitis, Acute 12/05/2012 [facility] ON LINE CSR, HEATHER 599 .0 Uti 12/05/2012 [facility] CSR, HEATHER 599 .0 Uti 12/05/2012 [facility] CSR, HEATHER 599 .0 Uti 12/05/2012 [facility] CSR, HEATHER 599 .0 Uti 12/05/2012 [facility] CSR, HEATHER 599 .0 Uti 12/05/2012 [facility] CSR, HEATHER 599 .0 Uti 12/05/2012 [facility] CSR, HEATHER 599 .0 Uti 12/05/2012 [facility] CSR, MARIANNA 59 9.0 Uti 12/05/2012 [facility] CSR, MARIANNA 59 9.0 Uti 05/21/2013 [facility] CSR, HEATHER 285 .9 ANEMIA, UNSPECIFIED 05/21/2013 [facility] CSR, HEATHER 285 .9 ANEMIA, UNSPECIFIED 05/21/2013 [facility] CSR, HEATHER 285 .9 ANEMIA, UNSPECIFIED 05/21/2013 [facility] CSR, HEATHER 285 .9 ANEMIA, UNSPECIFIED 05/21/2013 [facility] CSR, HEATHER 285 .9 ANEMIA, UNSPECIFIED 05/21/2013 [facility] CSR, HEATHER 285 .9 ANEMIA, UNSPECIFIED 05/21/2013 [facility] CSR, HEATHER 285 .9 ANEMIA, UNSPECIFIED 05/21/2013 [facility] CSR, MARIANNA 28 5.9 ANEMIA, UNSPECIFIED 08/07/2013 [facility] CSR, HEATHER 682 .5 CELLULITIS AND ABSCESS OF BUTTOCK 08/07/2013 [facility] CSR, HEATHER 682 .5 CELLULITIS AND ABSCESS OF BUTTOCK 08/07/2013 [facility] CSR, HEATHER 682 .5 CELLULITIS AND ABSCESS OF BUTTOCK 08/07/2013 [facility] CSR, HEATHER 682 .5 CELLULITIS AND ABSCESS OF BUTTOCK 08/07/2013 [facility] CSR, HEATHER 682 .5 CELLULITIS AND ABSCESS OF BUTTOCK 08/07/2013 BRANDEE ON LINE CSR, HEATHER 682 .5 CELLULITIS AND ABSCESS OF BUTTOCK 08/07/2013 BRANDEE ON LINE CSR, HEATHER 682 .5 CELLULITIS AND ABSCESS OF BUTTOCK 12/12/2013 BRANDEE ON LINE CSR, HEATHER 250 .02 DIABETES MELLITUS WITHOUT MENTION OF COMPLICATION TYPE II OR UNSPECIFIED TYPE UNCONTROLLED 12/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 250 .02 DIABETES MELLITUS WITHOUT MENTION OF COMPLICATION TYPE II OR UNSPECIFIED TYPE UNCONTROLLED 12/12/2013 HEATHER IRVIN APRN 250 .02 DIABETES MELLITUS WITHOUT MENTION OF COMPLICATION TYPE II OR UNSPECIFIED TYPE UNCONTROLLED 12/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 250 .02 DIABETES MELLITUS WITHOUT MENTION OF COMPLICATION TYPE II OR UNSPECIFIED TYPE UNCONTROLLED 04/25/2018 Halle Sahni MD N1 3.1 Hydronephrosis with ureteral stricture, not elsewhere classified 04/25/2018 Halle Sahni MD N13.30 Hydronephrosis, right 04/25/2018 Halle Sahni MD R3 1.2 Other microscopic hematuria 04/25/2018 Halle Sahni MD R3 1.9 Hematuria 05/29/2018 Halle Sahni MD 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, right ureter 06/28/2018 Halle Sahni MD K4 3.9 Hernia, Ventral 06/28/2018 Halle Sahni MD Z68.36 [...] Sahni MD T88.8xxA Other specified complications of surgica l and medical care, not elsewhere classified, initial encounter 09/04/2018 Halle Sahni MD E66.01 Morbid obesity due to excess calories 09/04/2018 Halle Sahni MD Z68.36 BMI 36-36.9 09/05/2018 Halle Sahni MD E66.01 Morbid obesity due to excess calories 09/12/2018 DANIEL HERNANDEZ MD Ot F17.200 NICOTINE DEPENDENCE, UNSPECIFIED, UNCOMP 09/12/2018 DANIEL HERNANDEZ MD, Ot M54.5 LOW BACK PAIN 09/12/2018 DANIEL HERNANDEZ MD Ot S39.012 A STRAIN OF MUSCLE, FASCIA AND TENDON OF L 09/12/2018 DANIEL HERNANDEZ MD, Ot S66.911 A STRAIN OF UNSP MUSC/FASC/TEND AT WRS/HND 09/12/2018 DANIEL HERNANDEZ MD, Ot S66.912 A STRAIN OF UNSP MUSC/FASC/TEND AT WRS/HND 09/12/2018 DANIEL HERNANDEZ MD Ot W00.0XX A FALL ON SAME LEVEL DUE TO ICE AND SNOW, 09/13/2018 DANIEL HERNANDEZ MD Ot F17.200 NICOTINE DEPENDENCE, UNSPECIFIED, UNCOMP 09/13/2018 DANIEL HERNANDEZ MD, Ot M54.5 LOW BACK PAIN 09/13/2018 DANIEL HERNANDEZ MD, Ot S39.012 A STRAIN OF MUSCLE, FASCIA AND TENDON OF L 09/13/2018 DANIEL HERNANDEZ MD, Ot S66.911 A STRAIN OF UNSP MUSC/FASC/TEND AT WRS/HND 09/13/2018 DANIEL HERNANDEZ MD, Ot S66.912 A STRAIN OF UNSP MUSC/FASC/TEND AT WRS/HND 09/13/2018 DANIEL HERNANDEZ MD Ot W00.0XX A FALL ON SAME LEVEL DUE TO ICE AND SNOW, 09/19/2018 NOEL DICK DO Ot C67. 9 MALIGNANT NEOPLASM OF BLADDER, UNSPECIFI 09/19/2018 NOEL DICK DO Ot E11. 65 TYPE 2 DIABETES MELLITUS WITH HYPERGLYCE 09/19/2018 NOEL DICK DO Ot I10 ESSENTIAL (PRIMARY) HYPERTENSION 09/19/2018 NOEL DICK DO Ot J43. 9 EMPHYSEMA, UNSPECIFIED 09/19/2018 NOEL DICK DO Ot L02.211 CUTANEOUS ABSCESS OF ABDOMINAL WALL 09/19/2018 NOEL DICK DO Ot R55 SYNCOPE AND COLLAPSE 09/19/2018 NOEL DICK DO Ot Z85.528 PERSONAL HISTORY OF OTHER MALIGNANT NEOP 09/19/2018 NOEL DICK DO Ot Z90.710 ACQUIRED ABSENCE OF BOTH CERVIX AND UTER 09/19/2018 NOEL DICK DO Ot Z90. 89 ACQUIRED ABSENCE OF OTHER ORGANS 09/19/2018 KAPIL DO, NOEL T Ot Z92. 21 PERSONAL HISTORY OF ANTINEOPLASTIC CHEMO 09/19/2018 KAPIL BLANCA NOEL T Ot Z98. 51 TUBAL LIGATION STATUS 09/19/2018 KAPIL BLANCADIONYED T Ot Z98.890 OTHER SPECIFIED POSTPROCEDURAL STATES 09/20/2018 KAPIL BLANCA NOEL T Ot C67. 9 MALIGNANT NEOPLASM OF BLADDER, UNSPECIFI 09/20/2018 KAPIL BLANCA NOEL T Ot E11. 65 TYPE 2 DIABETES MELLITUS WITH HYPERGLYCE 09/20/2018 AKPIL DIONYED T Ot I10 ESSENTIAL (PRIMARY) HYPERTENSION 09/20/2018 KAPIL BLANCA NOEL T Ot J43. 9 EMPHYSEMA, UNSPECIFIED 09/20/2018 KAPIL BLANCA NOEL T Ot L02.211 CUTANEOUS ABSCESS OF ABDOMINAL WALL 09/20/2018 KAPIL DIONYED T Ot R55 SYNCOPE AND COLLAPSE 09/20/2018 KAPIL BLANCA NOEL T Ot Z85.528 PERSONAL HISTORY OF OTHER MALIGNANT NEOP 09/20/2018 KAPIL BLANCA NOEL T Ot Z90.710 ACQUIRED ABSENCE OF BOTH CERVIX AND UTER 09/20/2018 KAPIL NOEL T Ot Z90. 89 ACQUIRED ABSENCE OF OTHER ORGANS 09/20/2018 KAPIL BLANCA NOEL T Ot Z92. 21 PERSONAL HISTORY OF ANTINEOPLASTIC CHEMO 09/20/2018 KAPIL BLANCADIONYED T Ot Z98. 51 TUBAL LIGATION STATUS 09/20/2018 KAPIL BLANCADIONYED T Ot Z98.890 OTHER SPECIFIED POSTPROCEDURAL STATES 10/13/2018 DANIEL HERNANDEZ MD Ot C64.9 MALIGNANT NEOPLASM OF UNSP KIDNEY, EXCEP 10/13/2018 DANIEL HERNANDEZ MD, Ot E11.9 TYPE 2 DIABETES MELLITUS WITHOUT COMPLIC 10/13/2018 DANIEL HERNANDEZ MD Ot F17.210 NICOTINE DEPENDENCE, CIGARETTES, UNCOMPL 10/13/2018 [...] OTHER DISEASES OF UR 10/13/2018 DANIEL HERNANDEZ MD Ot Z90.5 ACQUIRED ABSENCE OF KIDNEY 10/13/2018 DANIEL HERNANDEZ MD Ot Z90.710 ACQUIRED ABSENCE OF BOTH CERVIX AND UTER 10/13/2018 DANIEL HERNANDEZ MD Ot Z92.21 PERSONAL HISTORY OF ANTINEOPLASTIC CHEMO 10/17/2018 DIANE DELCID MD Ot D63.8 ANEMIA IN OTHER CHRONIC DISEASES CLASSIF 10/17/2018 DIANE DELCID MD Ot E11.9 TYPE 2 DIABETES MELLITUS WITHOUT COMPLIC 10/17/2018 DIANE DELCID MD Ot I10 ESSENTIAL (PRIMARY) HYPERTENSION 10/17/2018 DIANE DELCID MD Ot I95.9 HYPOTENSION, UNSPECIFIED 10/17/2018 DIANE DELCID MD, Ot J44.1 CHRONIC OBSTRUCTIVE PULMONARY DISEASE W 10/17/2018 DIANE DELCID MD Ot R07.8 1 PLEURODYNIA 10/17/2018 DIANE DELCID MD, Ot R07.9 CHEST PAIN, UNSPECIFIED 10/17/2018 DIANE DELCID MD Ot S80.812A ABRASION, LEFT LOWER LEG, INITIAL ENCOUN 10/17/2018 DIANE DELCID MD, Ot X58.XXXA EXPOSURE TO OTHER SPECIFIED FACTORS, INI 10/17/2018 DIANE DELCID MD, Ot Z85.5 28 PERSONAL HISTORY OF OTHER MALIGNANT NEOP 10/17/2018 DIANE DELCID MD, Ot Z87.4 42 PERSONAL HISTORY OF URINARY CALCULI 10/17/2018 DIANE DELCID MD, Ot Z87.4 48 PERSONAL HISTORY OF OTHER DISEASES OF UR 10/17/2018 DIANE DELCID MD, Ot Z90.5 ACQUIRED ABSENCE OF KIDNEY 10/17/2018 DIANE DELCID MD, Ot Z90.7 10 ACQUIRED ABSENCE OF BOTH CERVIX AND UTER 10/17/2018 DIANE DELCID MD, Ot Z92.2 1 PERSONAL HISTORY OF ANTINEOPLASTIC CHEMO 10/21/2018 DIANE DELCID MD, Ot D63.8 ANEMIA IN OTHER CHRONIC DISEASES CLASSIF 10/21/2018 DIANE DELCID MD, Ot E11.9 TYPE 2 DIABETES MELLITUS WITHOUT COMPLIC 10/21/2018 DIANE DELCID MD Ot I10 ESSENTIAL (PRIMARY) HYPERTENSION 10/21/2018 ENDIANE BARCLAY MD, Ot I95.9 HYPOTENSION, UNSPECIFIED 10/21/2018 DIANE DELCID MD, Ot J44.1 CHRONIC OBSTRUCTIVE PULMONARY DISEASE W 10/21/2018 DIANE DELCID MD, Ot R07.8 1 PLEURODYNIA 10/21/2018 DIANE DELCID MD, Ot R07.9 CHEST PAIN, UNSPECIFIED 10/21/2018 DIANE DELCID MD, Ot S80.812A ABRASION, LEFT LOWER LEG, INITIAL ENCOUN 10/21/2018 DIANE DELCID MD, Ot X58.XXXA EXPOSURE TO OTHER SPECIFIED FACTORS, INI 10/21/2018 DIANE DELCID MD, Ot Z85.5 28 PERSONAL HISTORY OF OTHER MALIGNANT NEOP 10/21/2018 DIANE DELCID MD, Ot Z87.4 42 PERSONAL HISTORY OF URINARY CALCULI 10/21/2018 DIANE DELCID MD, Ot Z87.4 48 PERSONAL HISTORY OF OTHER DISEASES OF UR 10/21/2018 DIANE DELCID MD, Ot Z90.5 ACQUIRED ABSENCE OF KIDNEY 10/21/2018 DIANE DELCID MD, Ot Z90.7 10 ACQUIRED ABSENCE OF BOTH CERVIX AND UTER 10/21/2018 DIANE DELCID MD, Ot Z92.2 1 PERSONAL HISTORY OF ANTINEOPLASTIC CHEMO 10/30/2018 Halle Sahni MD L0 8.9 Wound infection 10/30/2018 Halle Sahni MD C6 7.9 Bladder cancer 10/30/2018 Reason For Visit L08.9 Local infection of the skin and subcutaneous tissue, unspecified 10/31/2018 DIANE DELCID MD, Ot E11.6 5 TYPE 2 DIABETES MELLITUS WITH HYPERGLYCE 10/31/2018 DIANE DELCID MD, Ot F12.1 0 CANNABIS ABUSE, UNCOMPLICATED 10/31/2018 DIANE DELCID MD, Ot I10 ESSENTIAL (PRIMARY) HYPERTENSION 10/31/2018 DIANE DELCID MD, Ot J44.1 CHRONIC OBSTRUCTIVE PULMONARY DISEASE W 10/31/2018 DIANE DELCID MD, Ot R06.0 2 SHORTNESS OF BREATH 10/31/2018 DIANE DELCID MD, Ot T49.0X5A ADVERSE EFFECT OF LOCAL ANTIFUNG/INFECT/ 10/31/2018 DIANE DELCID MD, Ot T81.31XA DISRUPTION OF EXTERNAL OPERATION (SURGIC 10/31/2018 DIANE DELCID MD, Ot Z85.5 28 PERSONAL HISTORY OF OTHER MALIGNANT NEOP 10/31/2018 DIANE DELCID MD, Ot Z87.4 42 PERSONAL HISTORY OF URINARY CALCULI 10/31/2018 DIANE DELCID MD, Ot Z87.4 48 PERSONAL HISTORY OF OTHER DISEASES OF UR 10/31/2018 DIANE DELCID MD, Ot Z90.5 ACQUIRED ABSENCE OF KIDNEY 10/31/2018 DIANE DELCID MD Ot Z90.7 10 ACQUIRED ABSENCE OF BOTH CERVIX AND UTER 10/31/2018 DIANE DELCID MD, Ot Z90.8 9 ACQUIRED ABSENCE OF OTHER ORGANS 10/31/2018 DIANE DELCID MD, Ot Z92.2 1 PERSONAL HISTORY OF ANTINEOPLASTIC CHEMO 10/31/2018 DIANE DELCID MD, Ot Z98.5 1 TUBAL LIGATION STATUS 11/01/2018 DIANE DELCID MD, Ot E11.6 5 TYPE 2 DIABETES MELLITUS WITH HYPERGLYCE 11/01/2018 DIANE DELCID MD, Ot F12.1 0 CANNABIS ABUSE, UNCOMPLICATED 11/01/2018 DIANE DELCID MD, Ot I10 ESSENTIAL (PRIMARY) HYPERTENSION 11/01/2018 DIANE DELCID MD, Ot J44.1 CHRONIC OBSTRUCTIVE PULMONARY DISEASE W 11/01/2018 DIANE DELCID MD, Ot R06.0 2 SHORTNESS OF BREATH 11/01/2018 DIANE DELCID MD, Ot T49.0X5A ADVERSE EFFECT OF LOCAL ANTIFUNG/INFECT/ 11/01/2018 DIANE DELCID MD, Ot T81.31XA DISRUPTION OF EXTERNAL OPERATION (SURGIC 11/01/2018 DIANE DELCID MD, Ot Z85.5 28 PERSONAL HISTORY OF OTHER MALIGNANT NEOP 11/01/2018 DIANE DELCID MD, Ot Z87.4 42 PERSONAL HISTORY OF URINARY CALCULI 11/01/2018 DIANE DELCID MD, Ot Z87.4 48 PERSONAL HISTORY OF OTHER DISEASES OF UR 11/01/2018 DIANE DELCID MD, Ot Z90.5 ACQUIRED ABSENCE OF KIDNEY 11/01/2018 DIANE DELCID MD, Ot Z90.7 10 ACQUIRED ABSENCE OF BOTH CERVIX AND UTER 11/01/2018 DIANE DELCID MD, Ot Z90.8 9 ACQUIRED ABSENCE OF OTHER ORGANS 11/01/2018 DIANE DELCID MD Ot Z92.2 1 PERSONAL HISTORY OF ANTINEOPLASTIC CHEMO 11/01/2018 BHAVIN BATEMAN, DIANE Franco Ot Z98.5 1 TUBAL LIGATION STATUS 11/07/2018 JAME CULVER DO [...] Ot F17.210 NICOTINE DEPENDENCE, CIGARETTES, UNCOMPL 11/07/2018 JUD CULVER DOINA T Ot I1 0 ESSENTIAL (PRIMARY) HYPERTENSION 11/07/2018 JAME CULVER DO T Ot I95.9 HYPOTENSION, UNSPECIFIED 11/07/2018 JAME CULVER DO T Ot J18.9 PNEUMONIA, UNSPECIFIED ORGANISM 11/07/2018 JAME CULVER DO T Ot J45.909 UNSPECIFIED ASTHMA, UNCOMPLICATED 11/07/2018 JAME CULVER DO T Ot R06.02 SHORTNESS OF BREATH 11/07/2018 JAME CULVER DO T Ot Z87.440 PERSONAL HISTORY OF URINARY (TRACT) INFE 11/07/2018 JUD CULVER DOINA T Ot Z87.442 PERSONAL HISTORY OF URINARY CALCULI 11/07/2018 JAME CULVER DO T Ot Z90.5 ACQUIRED ABSENCE OF KIDNEY 11/07/2018 JAME CULVER DO T Ot Z90.6 ACQUIRED ABSENCE OF OTHER PARTS OF URINA 11/07/2018 JUD CULVER DOINA T Ot Z90.710 ACQUIRED ABSENCE OF BOTH CERVIX AND UTER 11/07/2018 JUD CULVER DOINA T Ot Z90.89 ACQUIRED ABSENCE OF OTHER ORGANS 11/07/2018 JUD CULVER DOINA T Ot Z92.21 PERSONAL HISTORY OF ANTINEOPLASTIC CHEMO 11/07/2018 JAME CULVER DO T Ot Z98.51 TUBAL LIGATION STATUS 11/08/2018 JAME CULVER DO T Ot C66.9 MALIGNANT NEOPLASM OF UNSPECIFIED URETER 11/08/2018 JAME CULVER DO Ot D63.8 ANEMIA IN OTHER CHRONIC DISEASES CLASSIF 11/08/2018 JAME CULVER DO Ot 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, 11/08/2018 JAME CULVER DO T Ot E11.9 TYPE 2 DIABETES MELLITUS WITHOUT COMPLIC 11/08/2018 JAME CULVER DO T Ot F12.10 CANNABIS ABUSE, UNCOMPLICATED 11/08/2018 JAME CULVER DO Ot F17.210 NICOTINE DEPENDENCE, CIGARETTES, UNCOMPL 11/08/2018 JAME CULVER DO T Ot I1 0 ESSENTIAL (PRIMARY) HYPERTENSION 11/08/2018 JAME CULVER DO T Ot I95.9 HYPOTENSION, UNSPECIFIED 11/08/2018 JAME CULVER DO Ot J18.9 PNEUMONIA, UNSPECIFIED ORGANISM 11/08/2018 JAME CULVER DO Ot J45.909 UNSPECIFIED ASTHMA, UNCOMPLICATED 11/08/2018 JAME CULVER DO Ot R06.02 SHORTNESS OF BREATH 11/08/2018 JAME CULVER DO T Ot Z87.440 PERSONAL HISTORY OF URINARY (TRACT) INFE 11/08/2018 JAME CULVER DO T Ot Z87.442 PERSONAL [...] OF ANTINEOPLASTIC CHEMO 11/08/2018 JAME CULVER DO T Ot Z98.51 TUBAL LIGATION STATUS 11/12/2018 JAME CULVER DO T Ot C66.9 MALIGNANT NEOPLASM OF UNSPECIFIED URETER 11/12/2018 JAME CULVER DO T Ot D63.8 ANEMIA IN OTHER CHRONIC DISEASES CLASSIF 11/12/2018 JAME CULVER DO Ot 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, 11/12/2018 JUD CULVER DOINA T Ot E11.9 TYPE 2 DIABETES MELLITUS WITHOUT COMPLIC 11/12/2018 JAME CULVER DO T Ot F12.10 CANNABIS ABUSE, UNCOMPLICATED 11/12/2018 JAME CULVER DO T Ot F17.210 NICOTINE DEPENDENCE, CIGARETTES, UNCOMPL 11/12/2018 JUD CULVER DOINA T Ot I1 0 ESSENTIAL (PRIMARY) HYPERTENSION 11/12/2018 JAME CULVER DO T Ot I95.9 HYPOTENSION, UNSPECIFIED 11/12/2018 JAME CULVER DO T Ot J18.9 PNEUMONIA, UNSPECIFIED ORGANISM 11/12/2018 JUD CULVER DOINA T Ot J45.909 UNSPECIFIED ASTHMA, UNCOMPLICATED 11/12/2018 JAME CULVER DO T Ot R06.02 SHORTNESS OF BREATH 11/12/2018 JUD CULVER DOINA T Ot Z87.440 PERSONAL HISTORY OF URINARY (TRACT) INFE 11/12/2018 JAME CULVER DO T Ot Z87.442 PERSONAL HISTORY OF URINARY CALCULI 11/12/2018 JUD CULVER DOINA T Ot Z90.5 ACQUIRED ABSENCE OF KIDNEY 11/12/2018 JUD CULVER DOINA T Ot Z90.6 ACQUIRED ABSENCE OF OTHER PARTS OF URINA 11/12/2018 JUD CULVER DOINA T Ot Z90.710 ACQUIRED ABSENCE OF BOTH CERVIX AND UTER 11/12/2018 JUD CULVER DOINA T Ot Z90.89 ACQUIRED ABSENCE OF OTHER ORGANS 11/12/2018 JAME CULVER DO T Ot Z92.21 PERSONAL HISTORY OF ANTINEOPLASTIC CHEMO 11/12/2018 JUD CULVER DOINA T Ot Z98.51 TUBAL LIGATION STATUS 11/14/2018 DANIEL HERNANDEZ MD Ot E11.649 TYPE 2 DIABETES MELLITUS WITH HYPOGLYCEM 11/14/2018 DANIEL HERNANDEZ MD Ot E16.2 HYPOGLYCEMIA, UNSPECIFIED 11/14/2018 DANIEL HERNANDEZ MD, Ot F12.10 CANNABIS ABUSE, UNCOMPLICATED 11/14/2018 DANIEL HERNANDEZ MD Ot I10 ESSENTIAL (PRIMARY) HYPERTENSION 11/14/2018 DANIEL HERNANDEZ MD, Ot J45.909 UNSPECIFIED ASTHMA, UNCOMPLICATED 11/14/2018 DANIEL HERNANDEZ MD Ot Z77.22 CNTCT W AND EXPSR TO ENVIRON TOBACCO SMO 11/14/2018 DANIEL HERNANDEZ MD, Ot Z85.528 PERSONAL HISTORY OF OTHER MALIGNANT NEOP 11/14/2018 DANIEL HERNANDEZ MD, Ot Z87.01 PERSONAL HISTORY OF PNEUMONIA (RECURRENT 11/14/2018 DANIEL HERNANDEZ MD, Ot Z87.442 PERSONAL HISTORY OF URINARY CALCULI 11/14/2018 DANIEL HERNANDEZ MD, Ot Z90.6 ACQUIRED ABSENCE OF OTHER PARTS OF URINA 11/14/2018 DANIEL HERNANDEZ MD, Ot Z90.710 ACQUIRED ABSENCE OF BOTH CERVIX AND UTER 11/14/2018 DANIEL HERNANDEZ MD, Ot Z92.21 PERSONAL HISTORY OF ANTINEOPLASTIC CHEMO 11/14/2018 DANIEL HERNANDEZ MD, Ot Z98.51 TUBAL LIGATION STATUS 11/18/2018 DANIEL HERNANDEZ MD, Ot E11.649 TYPE 2 DIABETES MELLITUS WITH HYPOGLYCEM 11/18/2018 DANIEL HERNANDEZ MD, Ot E16.2 HYPOGLYCEMIA, UNSPECIFIED 11/18/2018 DANIEL HERNANDEZ MD, Ot F12.10 CANNABIS ABUSE, UNCOMPLICATED 11/18/2018 DANIEL HERNANDEZ MD, Ot I10 ESSENTIAL (PRIMARY) HYPERTENSION 11/18/2018 DANIEL HERNANDEZ MD, Ot J45.909 UNSPECIFIED ASTHMA, UNCOMPLICATED 11/18/2018 DANIEL HERNANDEZ MD, Ot Z77.22 CNTCT W [...] TYPE 2 DIABETES MELLITUS WITHOUT COMPLIC 11/29/2018 BHAVIN BATEMAN, DIANE Franco Ot E86.1 HYPOVOLEMIA 11/29/2018 DIANE DELCID MD Ot I10 ESSENTIAL (PRIMARY) HYPERTENSION 11/29/2018 DIANE DELCID MD Ot I95.9 HYPOTENSION, UNSPECIFIED 11/29/2018 DIANE DELCID MD Ot J45.9 09 UNSPECIFIED ASTHMA, UNCOMPLICATED 11/29/2018 DIANE DELCID MD Ot N17.9 ACUTE KIDNEY FAILURE, UNSPECIFIED 11/29/2018 DIANE DELCID MD Ot R33.9 RETENTION OF URINE, UNSPECIFIED 11/29/2018 DIANE DELCID MD Ot Z77.2 2 CNTCT W AND EXPSR TO ENVIRON TOBACCO SMO 11/29/2018 DIANE DELCID MD Ot Z85.5 28 PERSONAL HISTORY OF OTHER MALIGNANT NEOP 11/29/2018 DIANE DELCID MD Ot Z90.5 ACQUIRED ABSENCE OF KIDNEY 11/29/2018 DIANE DELCID MD Ot Z90.7 10 ACQUIRED ABSENCE OF BOTH CERVIX AND UTER 11/29/2018 DIANE DELCID MD Ot Z90.8 9 ACQUIRED ABSENCE OF OTHER ORGANS 11/29/2018 DIANE DELCID MD Ot Z92.2 1 PERSONAL HISTORY OF ANTINEOPLASTIC CHEMO 11/29/2018 DIANE DELCID MD Ot Z98.5 1 TUBAL LIGATION STATUS 11/29/2018 DIANE DELCID MD Ot Z98.8 90 OTHER SPECIFIED POSTPROCEDURAL STATES 12/02/2018 DIANE DELCID MD Ot E11.9 TYPE 2 DIABETES MELLITUS WITHOUT COMPLIC 12/02/2018 DIANE DELCID MD Ot E86.1 HYPOVOLEMIA 12/02/2018 DIANE DELCID MD Ot I10 ESSENTIAL (PRIMARY) HYPERTENSION 12/02/2018 DIANE DELCID MD Ot I95.9 HYPOTENSION, UNSPECIFIED 12/02/2018 DIANE DELCID MD Ot J45.9 09 UNSPECIFIED ASTHMA, UNCOMPLICATED 12/02/2018 DIANE DELCID MD Ot N17.9 ACUTE KIDNEY FAILURE, UNSPECIFIED 12/02/2018 DIANE DELCID MD Ot R33.9 RETENTION OF URINE, UNSPECIFIED 12/02/2018 DIANE DELCID MD Ot Z77.2 2 CNTCT W AND EXPSR TO ENVIRON TOBACCO SMO 12/02/2018 DIANE DELCID MD Ot Z85.5 28 PERSONAL HISTORY OF OTHER MALIGNANT NEOP 12/02/2018 DIANE DELCID MD, Ot Z90.5 ACQUIRED ABSENCE OF KIDNEY 12/02/2018 DIANE DELCID MD, Ot Z90.7 10 ACQUIRED ABSENCE OF BOTH CERVIX AND UTER 12/02/2018 DIANE DELCID MD, Ot Z90.8 9 ACQUIRED ABSENCE OF OTHER ORGANS 12/02/2018 DIANE DELCID MD, Ot Z92.2 1 PERSONAL HISTORY OF ANTINEOPLASTIC CHEMO 12/02/2018 DIANE DELCID MD, Ot Z98.5 1 TUBAL LIGATION STATUS 12/02/2018 DIANE DELCID MD, Ot Z98.8 90 OTHER SPECIFIED POSTPROCEDURAL STATES 12/06/2018 JAME CULVER DO Ot C66.9 MALIGNANT NEOPLASM OF UNSPECIFIED URETER 12/06/2018 JAME CULVER DO T Ot D63.8 ANEMIA IN OTHER CHRONIC DISEASES CLASSIF 12/06/2018 JAME CULVER DO T Ot 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, 12/06/2018 JAME CULVER DO T Ot E11.9 TYPE 2 DIABETES MELLITUS WITHOUT COMPLIC 12/06/2018 JAME CULVER DO T Ot F12.10 CANNABIS ABUSE, UNCOMPLICATED 12/06/2018 JAME CULVER DO T Ot F17.210 NICOTINE DEPENDENCE, CIGARETTES, UNCOMPL 12/06/2018 JAME CULVER DO T Ot I1 0 ESSENTIAL (PRIMARY) HYPERTENSION 12/06/2018 JAME CULVER DO T Ot I95.9 HYPOTENSION, UNSPECIFIED 12/06/2018 JAME CULVER DO T Ot J18.9 PNEUMONIA, UNSPECIFIED ORGANISM 12/06/2018 JAME CULVER DO T Ot J45.909 UNSPECIFIED ASTHMA, UNCOMPLICATED 12/06/2018 JAME CULVER DO T Ot R06.02 SHORTNESS OF BREATH 12/06/2018 JAME CULVER DO T Ot Z87.440 PERSONAL HISTORY OF URINARY (TRACT) INFE 12/06/2018 JAME CULVER DO T Ot Z87.442 PERSONAL HISTORY OF URINARY CALCULI 12/06/2018 JAME CULVER DO T Ot Z90.5 ACQUIRED ABSENCE OF KIDNEY 12/06/2018 JAME CULVER DO T Ot Z90.6 ACQUIRED ABSENCE OF OTHER PARTS OF URINA 12/06/2018 JAVIDJUD ALAN DOINA T Ot Z90.710 ACQUIRED ABSENCE OF BOTH CERVIX AND UTER 12/06/2018 KEJUD ALAN DOINA T Ot Z90.89 ACQUIRED ABSENCE OF OTHER ORGANS 12/06/2018 JAME CULVER DO Ot Z92.21 PERSONAL HISTORY OF ANTINEOPLASTIC CHEMO 12/06/2018 JAME CULVER DO T Ot Z98.51 TUBAL LIGATION STATUS 12/13/2018 JERI BATEMAN, MANASA Funes Ot R10.84 GENERALIZED ABDOMINAL PAIN 12/14/2018 LUCÍA FUENTES MD, Ot E11. 9 TYPE 2 DIABETES MELLITUS WITHOUT COMPLIC 12/14/2018 LUCÍA FUENTES MD, Ot E78. 5 HYPERLIPIDEMIA, UNSPECIFIED 12/14/2018 LUCÍA FUENTES MD, Ot F31. 9 BIPOLAR DISORDER, UNSPECIFIED 12/14/2018 LUCÍA FUENTES MD, Ot I10 ESSENTIAL (PRIMARY) HYPERTENSION 12/14/2018 LUCÍA FUENTES MD, Ot J45.909 UNSPECIFIED ASTHMA, UNCOMPLICATED 12/14/2018 LUCÍA FUENTES MD, Ot N30. 01 ACUTE CYSTITIS WITH HEMATURIA 12/14/2018 LUCÍA FUENTES MD, Ot R10. 2 PELVIC AND PERINEAL PAIN 12/14/2018 LUCÍA FUENTES MD, Ot Z85.528 PERSONAL HISTORY OF OTHER MALIGNANT NEOP 12/14/2018 LUCÍA FUENTES MD, Ot Z85. 54 PERSONAL HISTORY OF MALIGNANT NEOPLASM O 12/14/2018 LUCÍA FUENTES MD, Ot Z87.440 PERSONAL HISTORY OF URINARY (TRACT) INFE 12/14/2018 LUCÍA FUENTES MD, Ot Z87.442 PERSONAL HISTORY OF URINARY CALCULI 12/14/2018 LUCÍA FUENTES MD, Ot Z90. 5 ACQUIRED ABSENCE OF KIDNEY 12/14/2018 LUCÍA FUENTES MD, Ot Z90.710 ACQUIRED ABSENCE OF BOTH CERVIX AND UTER 12/14/2018 LUCÍA FUENTES MD, Ot Z90. 89 ACQUIRED ABSENCE OF OTHER ORGANS 12/14/2018 LUCÍA FUENTES MD, Ot Z92. 21 PERSONAL HISTORY OF ANTINEOPLASTIC CHEMO 12/14/2018 LUCÍA FUENTES MD, Ot Z98. 51 TUBAL LIGATION STATUS 12/17/2018 LUCÍA FUENTES MD, Ot E11. 9 TYPE 2 DIABETES MELLITUS WITHOUT COMPLIC 12/17/2018 LUCÍA FUENTES MD, Ot E78. 5 HYPERLIPIDEMIA, UNSPECIFIED 12/17/2018 LUCÍA FUENTES MD, Ot F31. 9 BIPOLAR DISORDER, UNSPECIFIED 12/17/2018 LUCÍA FUENTES MD, Ot I10 ESSENTIAL (PRIMARY) HYPERTENSION 12/17/2018 LUCÍA FUENTES MD, Ot J45.909 UNSPECIFIED ASTHMA, UNCOMPLICATED 12/17/2018 LUCÍA FUENTES MD, Ot N30. 01 ACUTE CYSTITIS WITH HEMATURIA 12/17/2018 LUCÍA FUENTES MD, Ot R10. 2 PELVIC AND PERINEAL PAIN 12/17/2018 LUCÍA FUENTES MD, Ot Z85.528 PERSONAL HISTORY OF OTHER MALIGNANT NEOP 12/17/2018 LUCÍA FUENTES MD, Ot Z85. 54 PERSONAL HISTORY OF MALIGNANT NEOPLASM O 12/17/2018 LUCÍA FUENTES MD, Ot Z87.440 PERSONAL HISTORY OF URINARY (TRACT) INFE 12/17/2018 LUCÍA FUENTES MD, Ot Z87.442 PERSONAL HISTORY OF URINARY CALCULI 12/17/2018 LUCÍA FUENTES MD, Ot Z90. 5 ACQUIRED ABSENCE OF KIDNEY 12/17/2018 LUCÍA FUENTES MD, Ot Z90.710 ACQUIRED ABSENCE OF BOTH CERVIX AND UTER 12/17/2018 LUCÍA FUENTES MD, Ot Z90. 89 ACQUIRED ABSENCE OF OTHER ORGANS 12/17/2018 LUCÍA FUENTES MD, Ot Z92. 21 PERSONAL HISTORY OF ANTINEOPLASTIC CHEMO 12/17/2018 LUCÍA FUENTES MD, Ot Z98. 51 TUBAL LIGATION STATUS 12/19/2018 Halle Sahni MD N32.89 Nontraumatic bladder rupture 12/21/2018 DIANE DELCID MD, Ot E11.9 TYPE 2 DIABETES MELLITUS WITHOUT COMPLIC 12/21/2018 DIANE DELCID MD, Ot F17.2 10 NICOTINE DEPENDENCE, CIGARETTES, UNCOMPL 12/21/2018 DIANE DELCID MD, Ot I10 ESSENTIAL (PRIMARY) HYPERTENSION 12/21/2018 DIANE DELCID MD, Ot J45.9 09 UNSPECIFIED ASTHMA, UNCOMPLICATED 12/21/2018 DIANE DELCID MD, Ot N32.8 9 OTHER SPECIFIED DISORDERS OF BLADDER 12/21/2018 DIANE DELCID MD, Ot R06.0 2 SHORTNESS OF BREATH 12/21/2018 DIANE DELCID MD Ot Z85.5 28 PERSONAL HISTORY OF OTHER MALIGNANT NEOP 12/21/2018 DIANE DELCID MD Ot Z87.4 42 PERSONAL HISTORY OF URINARY CALCULI 12/21/2018 DIANE DELCID MD Ot Z87.4 48 PERSONAL HISTORY OF OTHER DISEASES OF UR 12/21/2018 DIANE DELCID MD Ot Z90.5 ACQUIRED ABSENCE OF KIDNEY 12/21/2018 DIANE DELCID MD Ot Z90.7 10 ACQUIRED ABSENCE OF BOTH CERVIX AND UTER 12/21/2018 DIANE DELCID MD Ot Z90.8 9 ACQUIRED ABSENCE OF OTHER ORGANS 12/21/2018 DIANE DELCID MD Ot Z92.2 1 PERSONAL HISTORY OF ANTINEOPLASTIC CHEMO 12/21/2018 DIANE DELCID MD Ot Z96.0 PRESENCE OF UROGENITAL IMPLANTS 12/21/2018 DIANE DELCID MD, Ot Z98.5 1 TUBAL LIGATION STATUS 12/21/2018 JERI BATEMAN, MANASA Funes Ot R10.84 GENERALIZED ABDOMINAL PAIN 12/24/2018 LINDA SAHNI Reason For Visi t N32.89 Other specified disorders of bladder 12/25/2018 DIANE DELCID MD Ot E11.9 TYPE 2 DIABETES MELLITUS WITHOUT COMPLIC 12/25/2018 DIANE DELCID MD Ot F17.2 10 NICOTINE DEPENDENCE, CIGARETTES, UNCOMPL 12/25/2018 DIANE DELCID MD Ot I10 ESSENTIAL (PRIMARY) HYPERTENSION 12/25/2018 DIANE DELCID MD, Ot J45.9 09 UNSPECIFIED ASTHMA, UNCOMPLICATED 12/25/2018 DIANE DELCID MD Ot N32.8 9 OTHER SPECIFIED DISORDERS OF BLADDER 12/25/2018 DIANE DELCID MD Ot R06.0 2 SHORTNESS OF BREATH 12/25/2018 DIANE DELCID MD Ot Z85.5 28 PERSONAL HISTORY OF OTHER MALIGNANT NEOP 12/25/2018 DIANE DELCID MD Ot Z87.4 42 PERSONAL HISTORY OF URINARY CALCULI 12/25/2018 DIANE DELCID MD Ot Z87.4 48 PERSONAL HISTORY OF OTHER DISEASES OF UR 12/25/2018 DIANE DELCID MD Ot Z90.5 ACQUIRED ABSENCE OF KIDNEY 12/25/2018 DIANE DELCID MD Ot Z90.7 10 ACQUIRED ABSENCE OF BOTH CERVIX AND UTER 12/25/2018 DIANE DELCID MD Ot Z90.8 9 ACQUIRED ABSENCE OF OTHER ORGANS 12/25/2018 BHAVIN BATEMAN, DIANE Franco Ot Z92.2 1 PERSONAL HISTORY OF ANTINEOPLASTIC CHEMO 12/25/2018 DIANE DELCID MD Ot Z96.0 PRESENCE OF UROGENITAL IMPLANTS 12/25/2018 DIANE DELCID MD Ot Z98.5 1 TUBAL LIGATION STATUS 01/01/2019 Halle Sahni MD E6 6.9 Obesity Class II (BMI 35-39.9) 01/01/2019 Halle Sahni MD Z68.36 BMI 36-36.9 01/02/2019 JERI BATEMAN, MANASA Funes Ot R10.84 GENERALIZED ABDOMINAL PAIN 01/02/2019 JERI BATEMAN, MANASA Funes Ot R10.84 GENERALIZED ABDOMINAL PAIN 01/02/2019 [place] DOJAZIEL Ot B37.49 OTHER UROGENITAL CANDIDIASIS 01/02/2019 WONG DO, JAZIEL Ot E11.9 TYPE 2 DIABETES MELLITUS WITHOUT COMPLIC 01/02/2019 WONG DO, JAZIEL Ot I10 ESSENTIAL (PRIMARY) HYPERTENSION 01/02/2019 [place]ILL[place]ALE , JAZIEL Ot J45.909 UNSPECIFIED ASTHMA, UNCOMPLICATED 01/02/2019 WONG , JAZIEL Ot R10.31 RIGHT LOWER QUADRANT PAIN 01/02/2019 JAZIEL WONG DO Ot Z77.22 CNTCT W AND EXPSR TO ENVIRON TOBACCO SMO 01/02/2019 JAZIEL WONG DO Ot Z85.528 PERSONAL HISTORY OF OTHER MALIGNANT NEOP 01/02/2019 WONG JAZIEL BLANCA Ot Z87.442 PERSONAL HISTORY OF URINARY CALCULI 01/02/2019 JAZIEL WONG DO Ot Z90.5 ACQUIRED ABSENCE OF KIDNEY 01/02/2019 JAZIEL WONG DO Ot Z90.710 ACQUIRED ABSENCE OF BOTH CERVIX AND UTER 01/02/2019 MARVIN BLANCA JAZIEL Ot Z90.89 ACQUIRED ABSENCE OF OTHER ORGANS 01/02/2019 JAZIEL WONG DO Ot Z98.51 TUBAL LIGATION STATUS 01/03/2019 JAZIEL WONG DO Ot B37.49 OTHER UROGENITAL CANDIDIASIS 01/03/2019 WONG DO, JAZIEL Ot E11.9 TYPE 2 DIABETES MELLITUS WITHOUT COMPLIC 01/03/2019 MARVIN BLANCA, JAZIEL Ot I10 ESSENTIAL (PRIMARY) HYPERTENSION 01/03/2019 JAZIEL WONG DO Ot J45.909 UNSPECIFIED ASTHMA, UNCOMPLICATED 01/03/2019 WONG [...] JAZIEL Ot Z98.51 TUBAL LIGATION STATUS 01/04/2019 [place] DO, JAZIEL Ot E11.9 TYPE 2 DIABETES MELLITUS WITHOUT COMPLIC 01/04/2019 [place] DO, JAZIEL Ot I10 ESSENTIAL (PRIMARY) HYPERTENSION 01/04/2019 HILLSDALE DO, JAZIEL Ot J45.909 UNSPECIFIED ASTHMA, UNCOMPLICATED 01/04/2019 WONG DO, JAZIEL Ot N39.0 URINARY TRACT INFECTION, SITE NOT SPECIF 01/04/2019 WONG DO, JAZIEL Ot R30.0 DYSURIA 01/04/2019 WONG DO, JAZIEL Ot Z77.22 CNTCT W AND EXPSR TO ENVIRON TOBACCO SMO 01/04/2019 WONG DO, JAZIEL Ot Z85.528 PERSONAL HISTORY OF OTHER MALIGNANT NEOP 01/04/2019 WONG DO, JAZIEL Ot Z87.442 PERSONAL HISTORY OF URINARY CALCULI 01/04/2019 WONG DO, JAZIEL Ot Z90.5 ACQUIRED ABSENCE OF KIDNEY 01/04/2019 OWNG DO, JAZIEL Ot Z90.710 ACQUIRED ABSENCE OF BOTH CERVIX AND UTER 01/04/2019 WONG DO, JAZIEL Ot Z98.51 TUBAL LIGATION STATUS 01/04/2019 JERI BATEMAN, MANASA Funes Ot R10.84 GENERALIZED ABDOMINAL PAIN 01/05/2019 TARIK GEORGE DO Ot E11.9 TYPE 2 DIABETES MELLITUS WITHOUT COMPLIC 01/05/2019 TARIK GEORGE DO Ot I1 0 ESSENTIAL (PRIMARY) HYPERTENSION 01/05/2019 TARIK GEORGE DO [...] Ot I10 ESSENTIAL (PRIMARY) HYPERTENSION 01/06/2019 JAZIEL WOGN DO Ot J45.909 UNSPECIFIED ASTHMA, UNCOMPLICATED 01/06/2019 [...] AND URETHRITIS 01/07/2019 POLA WEBB DO Ot E11 .9 TYPE 2 DIABETES MELLITUS WITHOUT COMPLIC 01/07/2019 [...] HISTORY OF URINARY CALCULI 01/07/2019 POLA WEBB DO Ot Z90.710 ACQUIRED ABSENCE OF BOTH CERVIX AND UTER 01/07/2019 POLA WEBB DO Ot Z90.89 ACQUIRED ABSENCE OF OTHER ORGANS 01/07/2019 POLA WEBB DO Ot Z98.51 TUBAL LIGATION STATUS 01/07/2019 TARIK GEORGE DO Ot E11.9 TYPE 2 DIABETES MELLITUS WITHOUT COMPLIC 01/07/2019 TARIK GEORGE DO Ot I1 0 ESSENTIAL (PRIMARY) HYPERTENSION 01/07/2019 TARIK GEORGE DO, Ot J45.909 UNSPECIFIED ASTHMA, UNCOMPLICATED 01/07/2019 TARIK GEORGE DO, Ot R10.2 PELVIC AND PERINEAL PAIN 01/07/2019 TARIK GEORGE DO Ot Z77.22 CNTCT W AND EXPSR TO ENVIRON TOBACCO SMO 01/07/2019 TARIK GEORGE DO, Ot Z85.528 PERSONAL HISTORY OF OTHER MALIGNANT NEOP 01/07/2019 TARIK GEORGE DO, Ot Z87.442 PERSONAL HISTORY OF URINARY CALCULI 01/07/2019 TARIK GEORGE DO, Ot Z90.5 ACQUIRED ABSENCE OF KIDNEY 01/07/2019 TARIK GEORGE DO, Ot Z90.710 ACQUIRED ABSENCE OF BOTH CERVIX AND UTER 01/07/2019 TARIK GEORGE DO, Ot Z90.89 ACQUIRED ABSENCE OF OTHER ORGANS 01/07/2019 TARIK GEORGE DO Ot Z98.51 TUBAL LIGATION STATUS 01/08/2019 POLA WEBB DO Ot B37.41 CANDIDAL CYSTITIS AND URETHRITIS 01/08/2019 POLA WEBB DO Ot E11 .9 TYPE 2 DIABETES MELLITUS WITHOUT COMPLIC 01/08/2019 [...] Z98.51 TUBAL LIGATION STATUS 01/08/2019 POLA WEBB DO, Ot E11 .9 TYPE 2 DIABETES MELLITUS WITHOUT COMPLIC 01/08/2019 POLA WEBB DO Ot G89.29 OTHER CHRONIC PAIN 01/08/2019 POLA WEBB DO, Ot I10 ESSENTIAL (PRIMARY) HYPERTENSION 01/08/2019 POLA WEBB DO, Ot J45.909 UNSPECIFIED ASTHMA, UNCOMPLICATED 01/08/2019 POLA WEBB DO, Ot R10.11 RIGHT UPPER QUADRANT PAIN 01/08/2019 POLA WEBB DO, Ot Z77.22 CNTCT W AND EXPSR TO ENVIRON TOBACCO SMO 01/08/2019 POLA WEBB DO, Ot Z85.528 PERSONAL HISTORY OF OTHER MALIGNANT NEOP 01/08/2019 POLA WEBB DO, Ot Z87.442 PERSONAL HISTORY OF URINARY CALCULI 01/08/2019 POLA WEBB DO, Ot Z90 .5 ACQUIRED ABSENCE OF KIDNEY 01/08/2019 POLA WEBB DO Ot Z90.710 ACQUIRED ABSENCE OF BOTH CERVIX AND UTER 01/08/2019 POLA WEBB DO Ot Z90.89 ACQUIRED ABSENCE OF OTHER ORGANS 01/08/2019 POLA WEBB DO Ot Z98.51 TUBAL LIGATION STATUS 01/08/2019 MANASA WILCOX MD Ot R10.84 GENERALIZED ABDOMINAL PAIN 01/08/2019 MANASA WILCOX MD Ot R10.84 GENERALIZED ABDOMINAL PAIN 01/10/2019 JAZIEL WONG DO, Ot E11.9 TYPE 2 DIABETES MELLITUS WITHOUT COMPLIC 01/10/2019 JAZIEL WONG DO, Ot I10 ESSENTIAL (PRIMARY) HYPERTENSION 01/10/2019 JAZIEL WONG DO, Ot J45.909 UNSPECIFIED ASTHMA, UNCOMPLICATED 01/10/2019 JAZIEL WONG DO, Ot N39.0 URINARY TRACT INFECTION, SITE NOT SPECIF 01/10/2019 JAZIEL WONG DO, Ot R30.0 DYSURIA 01/10/2019 JAZIEL WONG DO, Ot Z77.22 CNTCT W AND EXPSR TO ENVIRON TOBACCO SMO 01/10/2019 JAZIEL WONG DO Ot Z85.528 PERSONAL HISTORY OF OTHER MALIGNANT NEOP 01/10/2019 JAZIEL WONG DO Ot Z87.442 PERSONAL HISTORY OF URINARY CALCULI 01/10/2019 JAZIEL WONG DO Ot Z90.5 ACQUIRED ABSENCE OF KIDNEY 01/10/2019 JAZIEL WONG DO Ot Z90.710 ACQUIRED ABSENCE OF BOTH CERVIX AND UTER 01/10/2019 JAZIEL WONG DO Ot Z98.51 TUBAL LIGATION STATUS 01/10/2019 POLA WEBB DO Ot E11 .9 TYPE 2 DIABETES MELLITUS WITHOUT COMPLIC 01/10/2019 POLA WEBB DO Ot G89.29 OTHER CHRONIC PAIN 01/10/2019 POLA WEBB DO Ot I10 ESSENTIAL (PRIMARY) HYPERTENSION 01/10/2019 POLA WEBB DO, Ot J45.909 UNSPECIFIED ASTHMA, UNCOMPLICATED 01/10/2019 POLA WEBB DO Ot R10.11 RIGHT UPPER QUADRANT PAIN 01/10/2019 POLA WEBB DO Ot Z77.22 CNTCT W AND EXPSR TO ENVIRON TOBACCO SMO 01/10/2019 POLA WEBB DO Ot Z85.528 PERSONAL HISTORY OF OTHER MALIGNANT NEOP 01/10/2019 POLA WEBB DO Ot Z87.442 PERSONAL HISTORY OF URINARY CALCULI 01/10/2019 POLA WEBB DO Ot Z90 .5 ACQUIRED ABSENCE OF KIDNEY 01/10/2019 POLA WEBB DO Ot Z90.710 ACQUIRED ABSENCE OF BOTH CERVIX AND UTER 01/10/2019 POLA WEBB DO Ot Z90.89 ACQUIRED ABSENCE OF OTHER ORGANS 01/10/2019 POLA WEBB DO Ot Z98.51 TUBAL LIGATION STATUS 01/10/2019 DIANE DELCID MD Ot E11.9 TYPE 2 DIABETES MELLITUS WITHOUT COMPLIC 01/10/2019 DIANE DELCID MD Ot F41.9 ANXIETY DISORDER, UNSPECIFIED 01/10/2019 DIANE DELCID MD Ot G89.2 9 OTHER CHRONIC PAIN 01/10/2019 DIANE DELCID MD Ot I10 ESSENTIAL (PRIMARY) HYPERTENSION 01/10/2019 DIANE DELCID MD Ot J45.9 09 UNSPECIFIED ASTHMA, UNCOMPLICATED 01/10/2019 DIANE DELCID MD, Ot J98.1 1 ATELECTASIS 01/10/2019 DIANE DELCID MD Ot R10.1 1 RIGHT UPPER QUADRANT PAIN 01/10/2019 DIANE DELCID MD, Ot R35.0 FREQUENCY OF MICTURITION 01/10/2019 DIANE DELCID MD Ot Z77.2 2 CNTCT W AND EXPSR TO ENVIRON TOBACCO SMO 01/10/2019 DIANE DELCID MD Ot Z85.5 28 PERSONAL HISTORY OF OTHER MALIGNANT NEOP 01/10/2019 DIANE DELCID MD Ot Z87.4 42 PERSONAL HISTORY OF URINARY CALCULI 01/10/2019 DIANE DELCID MD, Ot Z90.5 ACQUIRED ABSENCE OF KIDNEY 01/10/2019 DIANE DELCID MD Ot Z90.7 10 ACQUIRED ABSENCE OF BOTH CERVIX AND UTER 01/10/2019 DIANE DELCID MD Ot Z90.8 9 ACQUIRED ABSENCE OF OTHER ORGANS 01/10/2019 DIANE DELCID MD Ot Z91.1 4 PATIENT'S OTHER NONCOMPLIANCE WITH MEDIC 01/10/2019 DIANE DELCID MD, Ot Z98.5 1 TUBAL LIGATION STATUS 01/11/2019 BASS DO, DEBBIE L Ot E11.9 TYPE 2 DIABETES MELLITUS WITHOUT COMPLIC 01/11/2019 BASS DO, DEBBIE L Ot F32.9 MAJOR DEPRESSIVE DISORDER, SINGLE EPISOD 01/11/2019 BASS DO, DEBBIE L Ot F43.2 1 ADJUSTMENT DISORDER WITH DEPRESSED MOOD 01/11/2019 BASS DO, DEBBIE L Ot I10 ESSENTIAL (PRIMARY) HYPERTENSION 01/11/2019 BASS DO, DEBBIE L Ot J45.9 09 UNSPECIFIED ASTHMA, UNCOMPLICATED 01/11/2019 BASS DO, DEBBIE L Ot Z77.2 2 CNTCT W AND EXPSR TO ENVIRON TOBACCO SMO 01/11/2019 BASS DO, DEBBIE L Ot Z85.5 28 PERSONAL HISTORY OF OTHER MALIGNANT NEOP 01/11/2019 BASS DO, DEBBIE L Ot Z87.4 42 PERSONAL HISTORY OF URINARY CALCULI 01/11/2019 BASS DO, DEBBIE L Ot Z90.7 10 ACQUIRED ABSENCE OF BOTH CERVIX AND UTER 01/11/2019 BASS DO, DEBBIE L Ot Z90.8 9 ACQUIRED ABSENCE OF OTHER ORGANS 01/11/2019 BASS DO, DEBBIE L Ot Z98.5 1 TUBAL LIGATION STATUS 01/12/2019 POLA WEBB DO Ot B37.41 CANDIDAL CYSTITIS AND URETHRITIS 01/12/2019 POLA WEBB DO Ot E11 .9 TYPE 2 DIABETES MELLITUS WITHOUT COMPLIC 01/12/2019 POLA WEBB DO Ot I10 ESSENTIAL (PRIMARY) HYPERTENSION 01/12/2019 POLA WEBB DO, Ot J45.909 UNSPECIFIED ASTHMA, UNCOMPLICATED 01/12/2019 POLA WEBB DO Ot R45.851 SUICIDAL IDEATIONS 01/12/2019 POLA WEBB DO Ot Z77.22 CNTCT W AND EXPSR TO ENVIRON TOBACCO SMO 01/12/2019 POLA WEBB DO, Ot Z85.528 PERSONAL HISTORY OF OTHER MALIGNANT NEOP 01/12/2019 POLA WEBB DO, Ot Z87.442 PERSONAL HISTORY OF URINARY CALCULI 01/12/2019 POLA WEBB DO, Ot Z90.710 ACQUIRED ABSENCE OF BOTH CERVIX AND UTER 01/12/2019 POLA WEBB DO Ot Z90.89 ACQUIRED ABSENCE OF OTHER ORGANS 01/12/2019 POLA WEBB DO Ot Z98.51 TUBAL LIGATION STATUS 01/14/2019 DIANE DELCID MD Ot E11.9 TYPE 2 DIABETES MELLITUS WITHOUT COMPLIC 01/14/2019 DIANE DELCID MD, Ot F41.9 ANXIETY DISORDER, UNSPECIFIED 01/14/2019 DIANE DELCID MD Ot G89.2 9 OTHER CHRONIC PAIN 01/14/2019 DIANE DELCID MD Ot I10 ESSENTIAL (PRIMARY) HYPERTENSION 01/14/2019 DIANE DELCID MD, Ot J45.9 09 UNSPECIFIED ASTHMA, UNCOMPLICATED 01/14/2019 DIANE DELCID MD Ot J98.1 1 ATELECTASIS 01/14/2019 DIANE DELCID MD Ot R10.1 1 RIGHT UPPER QUADRANT PAIN 01/14/2019 DIANE DELCID MD Ot R35.0 FREQUENCY OF MICTURITION 01/14/2019 DIANE DELCID MD Ot Z77.2 2 CNTCT W AND EXPSR TO ENVIRON TOBACCO SMO 01/14/2019 DIANE DELCID MD Ot Z85.5 28 PERSONAL HISTORY OF OTHER MALIGNANT NEOP 01/14/2019 DIANE DELCID MD Ot Z87.4 42 PERSONAL HISTORY OF URINARY CALCULI 01/14/2019 DIANE DELCID MD Ot Z90.5 ACQUIRED ABSENCE OF KIDNEY 01/14/2019 DIANE DELCID MD Ot Z90.7 10 ACQUIRED ABSENCE OF BOTH CERVIX AND UTER 01/14/2019 DIANE DELCID MD Ot Z90.8 9 ACQUIRED ABSENCE OF OTHER ORGANS 01/14/2019 DIANE DELCID MD Ot Z91.1 4 PATIENT'S OTHER NONCOMPLIANCE WITH MEDIC 01/14/2019 DIANE DELCID MD Ot Z98.5 1 TUBAL LIGATION STATUS 01/14/2019 BASS DO, DEBBIE L Ot E11.9 TYPE 2 DIABETES MELLITUS WITHOUT COMPLIC 01/14/2019 BASS DO, DEBBIE L Ot F32.9 MAJOR DEPRESSIVE DISORDER, SINGLE EPISOD 01/14/2019 BASS DO, DEBBIE L Ot F43.2 1 ADJUSTMENT DISORDER WITH DEPRESSED MOOD 01/14/2019 BASS DO, DEBBIE L Ot I10 ESSENTIAL (PRIMARY) HYPERTENSION 01/14/2019 BASS DO, DEBBIE L Ot J45.9 09 UNSPECIFIED ASTHMA, UNCOMPLICATED 01/14/2019 BASS DO, DEBBIE L Ot Z77.2 2 CNTCT W AND EXPSR TO ENVIRON TOBACCO SMO 01/14/2019 BASS DO, DEBBIE L Ot Z85.5 28 PERSONAL HISTORY OF OTHER MALIGNANT NEOP 01/14/2019 BASS DO, DEBBIE L Ot Z87.4 42 PERSONAL HISTORY OF URINARY CALCULI 01/14/2019 BASS DO, DEBBIE L Ot Z90.7 10 ACQUIRED ABSENCE OF BOTH CERVIX AND UTER 01/14/2019 BASS DO, DEBBIE L Ot Z90.8 9 ACQUIRED ABSENCE OF OTHER ORGANS 01/14/2019 BASS DO, DEBBIE L Ot Z98.5 1 TUBAL LIGATION STATUS 01/17/2019 BASS DO, DEBBIE L Ot E11.9 TYPE 2 DIABETES MELLITUS WITHOUT COMPLIC 01/17/2019 BASS DO, DEBBIE L Ot F32.9 MAJOR DEPRESSIVE DISORDER, SINGLE EPISOD 01/17/2019 BASS DO, DEBBIE L Ot F43.2 1 ADJUSTMENT DISORDER WITH DEPRESSED MOOD 01/17/2019 BASS DO, DEBBIE L Ot I10 ESSENTIAL (PRIMARY) HYPERTENSION 01/17/2019 BASS DO, DEBBIE L Ot J45.9 09 UNSPECIFIED ASTHMA, UNCOMPLICATED 01/17/2019 BASS DO, DEBBIE L Ot Z77.2 2 CNTCT W AND EXPSR TO ENVIRON TOBACCO SMO 01/17/2019 BASS DO, DEBBIE L Ot Z85.5 28 PERSONAL HISTORY OF OTHER MALIGNANT NEOP 01/17/2019 KALI DO, DEBBIE L Ot Z87.4 42 PERSONAL HISTORY OF URINARY CALCULI 01/17/2019 BASS DO, DEBBIE L Ot Z90.7 10 ACQUIRED ABSENCE OF BOTH CERVIX AND UTER 01/17/2019 BASS DOANTONIODEBBIE Jacques Ot Z90.8 9 ACQUIRED ABSENCE OF OTHER ORGANS 01/17/2019 BASS DO, DEBBIE Jacques Ot Z98.5 1 TUBAL LIGATION STATUS 02/01/2019 POLA WEBB DO Ot E11 .9 TYPE 2 DIABETES MELLITUS WITHOUT COMPLIC 02/01/2019 POLA WEBB DO Ot G89.29 OTHER CHRONIC PAIN 02/01/2019 POLA WEBB DO Ot I10 ESSENTIAL (PRIMARY) HYPERTENSION 02/01/2019 POLA WEBB DO, Ot J45.909 UNSPECIFIED ASTHMA, UNCOMPLICATED 02/01/2019 POLA WEBB DO Ot R10.11 RIGHT UPPER QUADRANT PAIN 02/01/2019 POLA WEBB DO Ot Z77.22 CNTCT W AND EXPSR TO ENVIRON TOBACCO SMO 02/01/2019 POLA WEBB DO Ot Z85.528 PERSONAL HISTORY OF OTHER MALIGNANT NEOP 02/01/2019 POLA WEBB DO Ot Z87.442 PERSONAL HISTORY OF URINARY CALCULI 02/01/2019 POLA WEBB DO Ot Z90 .5 ACQUIRED ABSENCE OF KIDNEY 02/01/2019 POLA WEBB DO Ot Z90.710 ACQUIRED ABSENCE OF BOTH CERVIX AND UTER 02/01/2019 POLA WEBB DO Ot Z90.89 ACQUIRED ABSENCE OF OTHER ORGANS 02/01/2019 POLA WEBB DO Ot Z98.51 TUBAL LIGATION STATUS 02/18/2019 POLA WEBB DO Ot B37.41 CANDIDAL CYSTITIS AND URETHRITIS 02/18/2019 POLA WEBB DO Ot E11 .9 TYPE 2 DIABETES MELLITUS WITHOUT COMPLIC 02/18/2019 POLA WEBB DO Ot I10 ESSENTIAL (PRIMARY) HYPERTENSION 02/18/2019 POLA WEBB DO Ot J45.909 UNSPECIFIED ASTHMA, UNCOMPLICATED 02/18/2019 POLA WEBB DO Ot R45.851 SUICIDAL IDEATIONS 02/18/2019 POLA WEBB DO Ot Z77.22 CNTCT W AND EXPSR TO ENVIRON TOBACCO SMO 02/18/2019 JON BLANCA POLA Perry Ot Z85.528 PERSONAL HISTORY OF OTHER MALIGNANT NEOP 02/18/2019 JON DO POLA Orlando Ot Z87.442 PERSONAL HISTORY OF URINARY CALCULI 02/18/2019 JON DO POLA Orlando Ot Z90.710 ACQUIRED ABSENCE OF BOTH CERVIX AND UTER 02/18/2019 POLA WEBB DO Ot Z90.89 ACQUIRED ABSENCE OF OTHER ORGANS 02/18/2019 POLA WEBB DO Ot Z98.51 TUBAL LIGATION STATUS 03/07/2019 RABIA WILKS MD J Ot E11. 9 TYPE 2 DIABETES MELLITUS WITHOUT COMPLIC 03/07/2019 RABIA WILKS MD Ot F17.210 NICOTINE DEPENDENCE, CIGARETTES, UNCOMPL 03/07/2019 RABIA WILKS MD Ot F41. 0 PANIC DISORDER [EPISODIC PAROXYSMAL ANXI 03/07/2019 RABIA WILKS MD Ot F41. 9 ANXIETY DISORDER, UNSPECIFIED 03/07/2019 RABIA WILKS MD Ot F43. 9 REACTION TO SEVERE STRESS, UNSPECIFIED 03/07/2019 RABIA WILKS MD Ot I10 ESSENTIAL (PRIMARY) HYPERTENSION 03/07/2019 RABIA WILKS MD Ot J45.909 UNSPECIFIED ASTHMA, UNCOMPLICATED 03/07/2019 RABIA WILKS MD Ot Z85.528 PERSONAL HISTORY OF OTHER MALIGNANT NEOP 03/07/2019 RABIA WILKS MD Ot Z87.442 PERSONAL HISTORY OF URINARY CALCULI 03/07/2019 RABIA WILKS MD Ot Z90.710 ACQUIRED ABSENCE OF BOTH CERVIX AND UTER 03/07/2019 RABIA WILKS MD Ot Z90. 89 ACQUIRED ABSENCE OF OTHER ORGANS 03/07/2019 RABIA WILKS MD Ot Z98. 51 TUBAL LIGATION STATUS 03/11/2019 RABIA WILKS MD Ot E11. 9 TYPE 2 DIABETES MELLITUS WITHOUT COMPLIC 03/11/2019 RABIA WILKS MD Ot F17.210 NICOTINE DEPENDENCE, CIGARETTES, UNCOMPL 03/11/2019 RABIA WILKS MD Ot F41. 0 PANIC DISORDER [EPISODIC PAROXYSMAL ANXI 03/11/2019 RABIA WILKS MD J Ot F41. 9 ANXIETY DISORDER, UNSPECIFIED 03/11/2019 RABIA WILKS MD Ot F43. 9 REACTION TO SEVERE STRESS, UNSPECIFIED 03/11/2019 RABIA WILKS MD Ot I10 ESSENTIAL (PRIMARY) HYPERTENSION 03/11/2019 RABIA WILKS MD Ot J45.909 UNSPECIFIED ASTHMA, UNCOMPLICATED 03/11/2019 RABIA WILKS MD Ot Z85.528 PERSONAL HISTORY OF OTHER MALIGNANT NEOP 03/11/2019 RABIA WILKS MD Ot Z87.442 PERSONAL HISTORY OF URINARY CALCULI 03/11/2019 RABIA WILKS MD Ot Z90.710 ACQUIRED ABSENCE OF BOTH CERVIX AND UTER 03/11/2019 RABIA WILKS MD Ot Z90. 89 ACQUIRED ABSENCE OF OTHER ORGANS 03/11/2019 RABIA WILKS MD Ot Z98. 51 TUBAL LIGATION STATUS 03/20/2019 MIKAYLA DE LOS SANTOS DO Ot Z01.8 18 ENCOUNTER FOR OTHER PREPROCEDURAL EXAMIN 03/22/2019 KALI DO, DEBBIE L Ot E11.9 TYPE 2 DIABETES MELLITUS WITHOUT COMPLIC 03/22/2019 BASS DO, DEBBIE L Ot I10 ESSENTIAL (PRIMARY) HYPERTENSION 03/22/2019 BASS DO, DEBBIE L Ot J44.9 CHRONIC OBSTRUCTIVE PULMONARY DISEASE, U 03/22/2019 BASS DO, DEBBIE L Ot R06.0 2 SHORTNESS OF BREATH 03/22/2019 BASS DO, DEBBIE L Ot R06.0 9 OTHER FORMS OF DYSPNEA 03/22/2019 BASS DO, DEBBIE L Ot Z77.2 2 CNTCT W AND EXPSR TO ENVIRON TOBACCO SMO 03/22/2019 BASS DO, DEBBIE L Ot Z85.5 28 PERSONAL HISTORY OF OTHER MALIGNANT NEOP 03/22/2019 BASS DO, DEBBIE L Ot Z90.7 10 ACQUIRED ABSENCE OF BOTH CERVIX AND UTER 03/22/2019 KALI DO, DEBBIE L Ot Z90.8 9 ACQUIRED ABSENCE OF OTHER ORGANS 03/22/2019 KALI DO, DEBBIE L Ot Z98.5 1 TUBAL LIGATION STATUS 03/24/2019 MIKAYLA DE LOS SANTOS DO Ot E66.9 OBESITY, UNSPECIFIED 03/24/2019 MIKAYLA DE LOS SANTOS DO Ot F17.2 10 NICOTINE DEPENDENCE, CIGARETTES, UNCOMPL 03/24/2019 MIKAYLA DE LOS SANTOS DO Amara Ot I10 ESSENTIAL (PRIMARY) HYPERTENSION 03/24/2019 MIKAYLA DE LOS SANTOS DO Ot K63.5 POLYP OF COLON 03/24/2019 MIKAYLA DE LOS SANTOS DO Ot K64.8 OTHER HEMORRHOIDS 03/24/2019 MIAKYLA DE LOS SANTOS DO Ot Z12.1 1 ENCOUNTER FOR SCREENING FOR MALIGNANT NE 03/24/2019 MIKAYLA DE LOS SANTOS DO Ot Z68.3 5 BODY MASS INDEX (BMI) 35.0-35.9, ADULT 03/24/2019 MIKAYLA DE LOS SANTOS DO Ot Z79.8 99 OTHER LARD BLEACHER (CURRENT) DRUG THERAPY 03/24/2019 MIKAYLA DE LOS SANTOS DO Ot Z83.3 FAMILY HISTORY OF DIABETES MELLITUS 03/24/2019 MIKAYLA DE LOS SANTOS DO Ot Z90.7 10 ACQUIRED ABSENCE OF BOTH CERVIX AND UTER 03/27/2019 KALI BLANCA, DEBBIE L Ot E11.9 TYPE 2 DIABETES MELLITUS WITHOUT COMPLIC 03/27/2019 KALI BLANCA DEBBIE L Ot I10 ESSENTIAL (PRIMARY) HYPERTENSION 03/27/2019 KALI BLANCA DEBBIE L Ot J44.9 CHRONIC OBSTRUCTIVE PULMONARY DISEASE, U 03/27/2019 KALI BLANCA, DEBBIE L Ot R06.0 2 SHORTNESS OF BREATH 03/27/2019 KALI BLANCA, DEBBIE L Ot R06.0 9 OTHER FORMS OF DYSPNEA 03/27/2019 KALI BLANCA, DEBBIE L Ot Z77.2 2 CNTCT W AND EXPSR TO ENVIRON TOBACCO SMO 03/27/2019 KALI BLANCA, DEBBIE L Ot Z85.5 28 PERSONAL HISTORY OF OTHER MALIGNANT NEOP 03/27/2019 KALI BLANCA DEBBIE L Ot Z90.7 10 ACQUIRED ABSENCE OF BOTH CERVIX AND UTER 03/27/2019 KALI BLANCA, DEBBIE L Ot Z90.8 9 ACQUIRED ABSENCE OF OTHER ORGANS 03/27/2019 KALI BLANCA, DEBBIE L Ot Z98.5 1 TUBAL LIGATION STATUS 03/27/2019 MIKAYLA DE LOS SANTOS DO Ot E66.9 OBESITY, UNSPECIFIED 03/27/2019 MIKAYLA DE LOS SANTOS DO Ot F17.2 10 NICOTINE DEPENDENCE, CIGARETTES, UNCOMPL 03/27/2019 MIKAYLA DE LOS SANTOS DO B Ot I10 ESSENTIAL (PRIMARY) HYPERTENSION 03/27/2019 MIKAYLA DE LOS SANTOS DO Ot K63.5 POLYP OF COLON 03/27/2019 MIKAYLA DE LOS SANTOS DO Ot K64.8 OTHER HEMORRHOIDS 03/27/2019 MIKAYLA DE LOS SANTOS DO Ot Z12.1 1 ENCOUNTER FOR SCREENING FOR MALIGNANT NE 03/27/2019 MIKAYLA DE LOS SANTOS DO Ot Z68.3 5 BODY MASS INDEX (BMI) 35.0-35.9, ADULT 03/27/2019 MIKAYLA DE LOS SANTOS DO Ot Z79.8 99 OTHER JAIL (CURRENT) DRUG THERAPY 03/27/2019 MIKAYLA DE LOS SANTOS DO Ot Z83.3 FAMILY HISTORY OF DIABETES MELLITUS 03/27/2019 MIKAYLA DE LOS SANTOS DO Ot Z90.7 10 ACQUIRED ABSENCE OF BOTH CERVIX AND UTER 04/02/2019 Bora BATEMAN, Halle Licea Z68.37 BMI 37-37.9 04/14/2019 LUCÍA FUENTES MD Ot E11. 9 TYPE 2 DIABETES MELLITUS WITHOUT COMPLIC 04/14/2019 LUCÍA FUENTES MD, Ot E78. 5 HYPERLIPIDEMIA, UNSPECIFIED 04/14/2019 LUCÍA FUENTES MD, Ot F17.210 NICOTINE DEPENDENCE, CIGARETTES, UNCOMPL 04/14/2019 LUCÍA FUENTES MD, Ot I10 ESSENTIAL (PRIMARY) HYPERTENSION 04/14/2019 LUCÍA FUENTES MD, Ot J45.909 UNSPECIFIED ASTHMA, UNCOMPLICATED 04/14/2019 LUCÍA FUENTES MD, Ot R06. 00 DYSPNEA, UNSPECIFIED 04/14/2019 LUCÍA FUENTES MD, Ot R07. 89 OTHER CHEST PAIN 04/14/2019 LUCÍA FUENTES MD, Ot R07. 9 CHEST PAIN, UNSPECIFIED 04/14/2019 LUCÍA FUENTES MD Ot Z79. 84 LARD BLEACHER (CURRENT) USE OF ORAL HYPOGLYC 04/14/2019 LUCÍA FUENTES MD Ot Z85.528 PERSONAL HISTORY OF OTHER MALIGNANT NEOP 04/14/2019 LUCÍA FUENTES MD, Ot Z87.440 PERSONAL HISTORY OF URINARY (TRACT) INFE 04/14/2019 LUCÍA FUENTES MD, Ot Z87.442 PERSONAL HISTORY OF URINARY CALCULI 04/14/2019 LUCÍA FUENTES MD, Ot Z90. 5 ACQUIRED ABSENCE OF KIDNEY 04/14/2019 LUCÍA FUENTES MD, Ot Z90.710 ACQUIRED ABSENCE OF BOTH CERVIX AND UTER 04/14/2019 LUCÍA FUENTES MD, Ot Z90. 89 ACQUIRED ABSENCE OF OTHER ORGANS 04/14/2019 LUCÍA FUENTES MD, Ot Z98. 51 TUBAL LIGATION STATUS 04/16/2019 LUCÍA FUENTES MD Ot E11. 9 TYPE 2 DIABETES MELLITUS WITHOUT COMPLIC 04/16/2019 LUCÍA FUENTES MD, Ot E78. 5 HYPERLIPIDEMIA, UNSPECIFIED 04/16/2019 LUCÍA FUENTES MD, Ot F17.210 NICOTINE DEPENDENCE, CIGARETTES, UNCOMPL 04/16/2019 LUCÍA FUENTES MD Ot I10 ESSENTIAL (PRIMARY) HYPERTENSION 04/16/2019 LUCÍA FUENTES MD, Ot J45.909 UNSPECIFIED ASTHMA, UNCOMPLICATED 04/16/2019 LUCÍA FUENTES MD, Ot R06. 00 DYSPNEA, UNSPECIFIED 04/16/2019 LUCÍA FUENTES MD, Ot R07. 89 OTHER CHEST PAIN 04/16/2019 LUCÍA FUENTES MD, Ot R07. 9 CHEST PAIN, UNSPECIFIED 04/16/2019 LUCÍA FUENTES MD, Ot Z79. 84 LARD BLEACHER (CURRENT) USE OF ORAL HYPOGLYC 04/16/2019 LUCÍA FUENTES MD, Ot Z85.528 PERSONAL HISTORY OF OTHER MALIGNANT NEOP 04/16/2019 LUCÍA FUENTES MD, Ot Z87.440 PERSONAL HISTORY OF URINARY (TRACT) INFE 04/16/2019 LUCÍA FUENTES MD, Ot Z87.442 PERSONAL HISTORY OF URINARY CALCULI 04/16/2019 LUCÍA FUENTES MD, Ot Z90. 5 ACQUIRED ABSENCE OF KIDNEY 04/16/2019 LUCÍA FUENTES MD, Ot Z90.710 ACQUIRED ABSENCE OF BOTH CERVIX AND UTER 04/16/2019 LUCÍA FUENTES MD, Ot Z90. 89 ACQUIRED ABSENCE OF OTHER ORGANS 04/16/2019 LUCÍA FUENTES MD, Ot Z98. 51 TUBAL LIGATION STATUS 04/23/2019 DELROBERT DO MIKAYLA B Ot Z01.8 18 ENCOUNTER FOR OTHER PREPROCEDURAL EXAMIN 05/05/2019 DELMAN DO, MIKAYLA B Ot Z01.8 18 ENCOUNTER FOR OTHER PREPROCEDURAL EXAMIN 05/06/2019 DELMAN DO, MIKAYLA B Ot Z01.8 18 ENCOUNTER FOR OTHER PREPROCEDURAL EXAMIN 05/06/2019 DELMAN DO MIKAYLA B Ot Z01.8 18 ENCOUNTER FOR OTHER PREPROCEDURAL EXAMIN 05/06/2019 MARILUZROBERT MARLEN BLANCAIC B Ot Z01.8 18 ENCOUNTER FOR OTHER PREPROCEDURAL EXAMIN 05/06/2019 MARLEN DE LOS SANTOS DOIC B Ot Z01.8 18 ENCOUNTER FOR OTHER PREPROCEDURAL EXAMIN 05/12/2019 MARLEN DE LOS SANTOS DOIC B Ot Z01.8 18 ENCOUNTER FOR OTHER PREPROCEDURAL EXAMIN 06/02/2019 JERI BATEMAN, MANASA Funes Ot R10.84 GENERALIZED ABDOMINAL PAIN 06/02/2019 MARILUZROBERT MARLEN BLANCAIC B Ot Z01.8 18 ENCOUNTER FOR OTHER PREPROCEDURAL EXAMIN 06/02/2019 JERI BATEMAN, MANASA Funes Ot R10.84 GENERALIZED ABDOMINAL PAIN 06/02/2019 MIKAYLA DE LOS SANTOS DO B Ot Z01.8 18 ENCOUNTER FOR OTHER PREPROCEDURAL EXAMIN 06/02/2019 MIKAYLA DE LOS SANTOS DO Ot E66.9 OBESITY, UNSPECIFIED 06/02/2019 MIKAYLA DE LOS SANTOS DO Ot F17.2 10 NICOTINE DEPENDENCE, CIGARETTES, UNCOMPL 06/02/2019 MARLEN DE LOS SANTOS DOIC B Ot I10 ESSENTIAL (PRIMARY) HYPERTENSION 06/02/2019 MIKAYLA DE LOS SANTOS DO Ot K63.5 POLYP OF COLON 06/02/2019 MIKAYLA DE LOS SANTOS DO Ot K64.8 OTHER HEMORRHOIDS 06/02/2019 MIKAYLA DE LOS SANTOS DO Ot Z12.1 1 ENCOUNTER FOR SCREENING FOR MALIGNANT NE 06/02/2019 MIKAYLA DE LOS SANTOS DO Ot Z68.3 5 BODY MASS INDEX (BMI) 35.0-35.9, ADULT 06/02/2019 MIKAYLA ED LOS SANTOS DO Ot Z79.8 99 OTHER JAIL (CURRENT) DRUG THERAPY 06/02/2019 MIKAYLA DE LOS SANTOS DO Ot Z83.3 FAMILY HISTORY OF DIABETES MELLITUS 06/02/2019 MIKAYLA DE LOS SANTOS DO Ot Z90.7 10 ACQUIRED ABSENCE OF BOTH CERVIX AND UTER 06/05/2019 MIKAYLA DE LOS SANTOS DO Ot D12.2 BENIGN NEOPLASM OF ASCENDING COLON 06/05/2019 MIKAYLA DE LOS SANTOS DO Ot D12.5 BENIGN NEOPLASM OF SIGMOID COLON 06/05/2019 MIKAYLA DE LOS SANTOS DO Ot E11.9 TYPE 2 DIABETES MELLITUS WITHOUT COMPLIC 06/05/2019 MIKAYLA DE LOS SANTOS DO Ot E66.9 OBESITY, UNSPECIFIED 06/05/2019 MIKAYLA DE LOS SANTOS DO Ot F17.2 10 NICOTINE DEPENDENCE, CIGARETTES, UNCOMPL 06/05/2019 MIKAYLA DE LOS SANTOS DO Ot G47.3 3 OBSTRUCTIVE SLEEP APNEA (ADULT) (PEDIATR 06/05/2019 MIKAYLA DE LOS SANTOS DO Ot I10 ESSENTIAL (PRIMARY) HYPERTENSION 06/05/2019 MIKAYLA DE LOS SANTOS DO Ot J44.9 CHRONIC OBSTRUCTIVE PULMONARY DISEASE, U 06/05/2019 MIKAYLA DE LOS SANTOS DO Ot K64.8 OTHER HEMORRHOIDS 06/05/2019 MIKAYLA DE LOS SANTOS DO Ot Z12.1 1 ENCOUNTER FOR SCREENING FOR MALIGNANT NE 06/05/2019 MIKAYLA DE LOS SANTOS DO, Ot Z68.3 6 BODY MASS INDEX (BMI) 36.0-36.9, ADULT 06/05/2019 MIKAYLA DE LOS SANTOS DO Ot Z79.1 LARD BLEACHER (CURRENT) USE OF NON-STEROIDAL 06/05/2019 MIKAYLA DE LOS SANTOS DO Ot Z79.8 99 OTHER JAIL (CURRENT) DRUG THERAPY 06/05/2019 MIKAYLA DE LOS SANTOS DO Ot Z83.3 FAMILY HISTORY OF DIABETES MELLITUS 06/05/2019 MIKAYLA DE LOS SANTOS DO Ot Z85.5 28 PERSONAL HISTORY OF OTHER MALIGNANT NEOP 06/05/2019 MIKAYLA DE LOS SANTOS DO Ot Z86.0 10 PERSONAL HISTORY OF COLONIC POLYPS 06/05/2019 MIKAYLA DE LOS SANTOS DO Ot Z90.5 ACQUIRED ABSENCE OF KIDNEY 06/05/2019 MIKAYLA DE LOS SANTOS DO Ot Z90.7 10 ACQUIRED ABSENCE OF BOTH CERVIX AND UTER 06/05/2019 MIKAYLA DE LOS SANTOS DO Ot Z96.4 1 PRESENCE OF INSULIN PUMP (EXTERNAL) (INT 06/13/2019 JAZIEL WONG DO Ot B19.20 UNSPECIFIED VIRAL HEPATITIS C WITHOUT HE 06/13/2019 JAZIEL WONG DO Ot E11.9 TYPE 2 DIABETES MELLITUS WITHOUT COMPLIC 06/13/2019 JAZIEL WONG DO, Ot F17.210 NICOTINE DEPENDENCE, CIGARETTES, UNCOMPL 06/13/2019 JAZIEL WONG DO Ot F39 UNSPECIFIED MOOD [AFFECTIVE] DISORDER 06/13/2019 JAZIEL WONG DO Ot F41.0 PANIC DISORDER [EPISODIC PAROXYSMAL ANXI 06/13/2019 JAZIEL WONG DO Ot I10 ESSENTIAL (PRIMARY) HYPERTENSION 06/13/2019 MARVIN BLANCA, JAZIEL Ot J45.909 UNSPECIFIED ASTHMA, UNCOMPLICATED 06/13/2019 [facility], JAZIEL Ot Z79.84 LARD BLEACHER (CURRENT) USE OF ORAL HYPOGLYC 06/13/2019 [facility], JAZIEL Ot Z85.528 PERSONAL HISTORY OF OTHER MALIGNANT NEOP 06/13/2019 [facility], JAZIEL Ot Z87.442 PERSONAL HISTORY OF URINARY CALCULI 06/13/2019 [facility], JAZIEL Ot Z90.710 ACQUIRED ABSENCE OF BOTH CERVIX AND UTER 06/13/2019 [facility], JAZIEL Ot Z90.89 ACQUIRED ABSENCE OF OTHER ORGANS 06/13/2019 [facility], JAZIEL Ot Z98.51 TUBAL LIGATION STATUS 06/17/2019 [facility], JAZIEL Ot B19.20 UNSPECIFIED VIRAL HEPATITIS C WITHOUT HE 06/17/2019 [facility], JAZIEL Ot E11.9 TYPE 2 DIABETES MELLITUS WITHOUT COMPLIC 06/17/2019 [facility], JAZIEL Ot F17.210 NICOTINE DEPENDENCE, CIGARETTES, UNCOMPL 06/17/2019 [facility], JAZIEL Ot F39 UNSPECIFIED MOOD [AFFECTIVE] DISORDER 06/17/2019 [facility], JAZIEL Ot F41.0 PANIC DISORDER [EPISODIC PAROXYSMAL ANXI 06/17/2019 [place] [facility], JAZIEL Ot I10 ESSENTIAL (PRIMARY) HYPERTENSION 06/17/2019 [facility], JAZIEL Ot J45.909 UNSPECIFIED ASTHMA, UNCOMPLICATED 06/17/2019 [facility], JAZIEL Ot Z79.84 LARD BLEACHER (CURRENT) USE OF ORAL HYPOGLYC 06/17/2019 [facility], JAZIEL Ot Z85.528 PERSONAL HISTORY OF OTHER MALIGNANT NEOP 06/17/2019 [facility], JAZIEL Ot Z87.442 PERSONAL HISTORY OF URINARY CALCULI 06/17/2019 [facility], JAZIEL Ot Z90.710 ACQUIRED ABSENCE OF BOTH CERVIX AND UTER 06/17/2019 [facility], JAZIEL Ot Z90.89 ACQUIRED ABSENCE OF OTHER ORGANS 06/17/2019 [facility] [facility], JAZIEL Ot Z98.51 TUBAL LIGATION STATUS 06/25/2019 MARK BOJORQUEZ MD Ot B19. 20 UNSPECIFIED VIRAL HEPATITIS C WITHOUT HE 06/25/2019 MARYELLEN BATEMAN, MARK Witt Ot E11. 65 TYPE 2 DIABETES MELLITUS WITH HYPERGLYCE 06/25/2019 MARK BOJORQUEZ MD Ot I10 ESSENTIAL (PRIMARY) HYPERTENSION 06/25/2019 MARK BOJORQUEZ MD Ot J40 BRONCHITIS, NOT SPECIFIED ACUTE OR CH 06/25/2019 MARK BOJORQUEZ MD Ot J44. 0 CHR OBSTRUCTIVE PULMON DISEASE WITH (ACU 06/25/2019 MARK BOJORQUEZ MD Ot R06. 02 SHORTNESS OF BREATH 06/25/2019 MARK BOJORQUEZ MD Ot Z77. 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 5 ACQUIRED ABSENCE OF KIDNEY 06/25/2019 MARK BOJORQUEZ MD Ot Z90.710 ACQUIRED ABSENCE OF BOTH CERVIX AND UTER 06/25/2019 MARK BOJORQUEZ MD Ot Z90. 89 ACQUIRED ABSENCE OF OTHER ORGANS 06/25/2019 MARK BOJORQUEZ MD Ot Z98. 51 TUBAL LIGATION STATUS 06/27/2019 MARK BOJORQUEZ MD Ot B19. 20 UNSPECIFIED VIRAL HEPATITIS C WITHOUT HE 06/27/2019 MARK BOJORQUEZ MD Ot E11. 65 TYPE 2 DIABETES MELLITUS WITH HYPERGLYCE 06/27/2019 MARK BOJORQUEZ MD Ot I10 ESSENTIAL (PRIMARY) HYPERTENSION 06/27/2019 MARK BOJORQUEZ MD Ot J40 BRONCHITIS, NOT SPECIFIED ACUTE OR CH 06/27/2019 MARK BOJORQUEZ MD Ot J44. 0 CHR OBSTRUCTIVE PULMON DISEASE WITH (ACU 06/27/2019 MARK BOJORQUEZ MD Ot R06. 02 SHORTNESS OF BREATH 06/27/2019 MARK BOJORQUEZ MD Ot Z77. 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 5 ACQUIRED ABSENCE OF KIDNEY 06/27/2019 MARK BOJORQUEZ MD Ot Z90.710 ACQUIRED ABSENCE OF BOTH CERVIX AND UTER 06/27/2019 MARK BOJORQUEZ MD Ot Z90. 89 ACQUIRED ABSENCE OF OTHER ORGANS 06/27/2019 MARK BOJORQUEZ MD Ot Z98. 51 TUBAL LIGATION STATUS 07/01/2019 Lianna Davis 493.01 EXTRINSIC ASTHMA WITH STATUS ASTHMATICUS 07/01/2019 Lianna Davis J45.52 SEVERE PERSISTENT ASTHMA WITH STATUS ASTHMATICUS 07/01/2019 Lianna Davis 250.00 DIABETES MELLITUS WITHOUT MENTION OF COMPLICATION, TYPE II OR UNSPECIFIED TYPE, NOT STATED UNCONTROLLED 07/01/2019 Lianna Davis 493.01 EXTRINSIC ASTHMA WITH STATUS ASTHMATICUS 07/01/2019 Lianna Davis E11.9 TYPE 2 DIABETES MELLITUS WITHOUT COMPLICATIONS 07/01/2019 Lianna Davis J45.52 SEVERE PERSISTENT ASTHMA WITH STATUS ASTHMATICUS 07/01/2019 ROVENSTINE DOEDNA Ot B19.20 UNSPECIFIED VIRAL HEPATITIS C WITHOUT HE 07/01/2019 ROVENSTINE DOEDNA Ot E11.9 TYPE 2 DIABETES MELLITUS WITHOUT COMPLIC 07/01/2019 ROVENSTINE EDNA BLANCA Ot E78.00 PURE HYPERCHOLESTEROLEMIA, UNSPECIFIED 07/01/2019 ROVENSTINE DOEDNA L Ot F31.9 BIPOLAR DISORDER, UNSPECIFIED 07/01/2019 ROVENSTINE DOEDNA Ot F41.9 ANXIETY DISORDER, UNSPECIFIED 07/01/2019 ROVENSTINE DOEDNA Ot G47.30 SLEEP APNEA, UNSPECIFIED 07/01/2019 ROVENSTINE DOEDNA L Ot I10 ESSENTIAL (PRIMARY) HYPERTENSION 07/01/2019 ROVENSTINE DOEDNA Ot J44.1 CHRONIC OBSTRUCTIVE PULMONARY DISEASE W 07/01/2019 ROVENSTINE EDNA BLANCA Ot J45.909 UNSPECIFIED ASTHMA, UNCOMPLICATED 07/01/2019 ROVENSTINE DOEDNA Ot R06.02 SHORTNESS OF BREATH 07/01/2019 ROVENSTINE DOEDNA Ot Z77.22 CNTCT W AND EXPSR TO ENVIRON TOBACCO SMO 07/01/2019 ROVENSTINE DOEDNA Ot Z79.84 JAIL (CURRENT) USE OF ORAL HYPOGLYC 07/01/2019 ROVENSTINE DOEDNA Ot Z85.51 PERSONAL HISTORY OF MALIGNANT NEOPLASM O 07/01/2019 ROVENSTINE EDNA BLANCA Ot Z85.528 PERSONAL HISTORY OF OTHER MALIGNANT NEOP 07/01/2019 [facility] DO EDNA Jacques Ot Z87.442 PERSONAL HISTORY OF URINARY CALCULI 07/01/2019 [facility]OV[facility] DO EDNA Jacques [place] Z90.5 ACQUIRED ABSENCE OF KIDNEY 07/01/2019 [facility] DO EDNA Jacques Ot Z90.710 ACQUIRED ABSENCE OF BOTH CERVIX AND UTER 07/01/2019 [facility] DO EDNA Jacques Ot Z90.89 ACQUIRED ABSENCE OF OTHER ORGANS 07/01/2019 ROVENSTINE EDNA BLANCA Ot Z98.51 TUBAL LIGATION STATUS 07/01/2019 ROVENSTINE DOEDNA Ot Z99.89 DEPENDENCE ON OTHER ENABLING MACHINES AN 07/04/2019 Lianna Davis 250.00 DIABETES MELLITUS WITHOUT MENTION OF COMPLICATION, TYPE II OR UNSPECIFIED TYPE, NOT STATED UNCONTROLLED 07/04/2019 Lianna Davis 493.01 EXTRINSIC ASTHMA WITH STATUS ASTHMATICUS 07/04/2019 Lianna Davis E11.9 TYPE 2 DIABETES MELLITUS WITHOUT COMPLICATIONS 07/04/2019 Lianna Davis J45.52 SEVERE PERSISTENT ASTHMA WITH STATUS ASTHMATICUS 07/06/2019 [facility], DEBBIE L Ot B19.2 0 UNSPECIFIED VIRAL HEPATITIS C WITHOUT HE 07/06/2019 [facility] DO, DEBBIE L Ot E11.6 5 TYPE 2 DIABETES MELLITUS WITH HYPERGLYCE 07/06/2019 [facility] DO, DEBBIE L Ot E11.9 TYPE 2 DIABETES MELLITUS WITHOUT COMPLIC 07/06/2019 [facility] DO, DEBBIE L Ot E78.0 0 PURE HYPERCHOLESTEROLEMIA, UNSPECIFIED 07/06/2019 [facility] DO, DEBBIE L Ot F31.9 BIPOLAR DISORDER, UNSPECIFIED 07/06/2019 [facility] DO, DEBBIE L Ot F41.0 PANIC DISORDER [EPISODIC PAROXYSMAL ANXI 07/06/2019 [facility] DO, DEBBIE L Ot I10 ESSENTIAL (PRIMARY) HYPERTENSION 07/06/2019 [facility] DO, DEBBIE L Ot J43.9 EMPHYSEMA, UNSPECIFIED 07/06/2019 [facility] DO, DEBBIE L Ot R73.9 HYPERGLYCEMIA, UNSPECIFIED 07/06/2019 [facility] DO, DEBBIE L Ot Z77.2 2 CNTCT W AND EXPSR TO ENVIRON TOBACCO SMO 07/06/2019 [facility] DO, DEBBIE L Ot Z79.4 JAIL (CURRENT) USE OF INSULIN 07/06/2019 [facility] DO, DEBBIE L Ot Z85.5 1 PERSONAL HISTORY OF MALIGNANT NEOPLASM O 07/06/2019 [facility] DO, DEBBIE L Ot Z85.5 28 PERSONAL HISTORY OF OTHER MALIGNANT NEOP 07/06/2019 [facility] DO, DEBBIE L Ot Z87.4 42 PERSONAL HISTORY OF URINARY CALCULI 07/06/2019 [facility] DO, DEBBIE L Ot Z90.5 ACQUIRED ABSENCE OF KIDNEY 07/06/2019 [facility] DO, DEBBIE L Ot Z90.7 10 ACQUIRED ABSENCE OF BOTH CERVIX AND UTER 07/06/2019 [facility] DO, DEBBIE L Ot Z98.5 1 TUBAL LIGATION STATUS 07/08/2019 [facility] DO, DEBBIE L Ot B19.2 0 UNSPECIFIED VIRAL HEPATITIS C WITHOUT HE 07/08/2019 [facility] DO, DEBBIE L Ot E11.6 5 TYPE 2 DIABETES MELLITUS WITH HYPERGLYCE 07/08/2019 [facility] DO, DEBBIE L Ot E11.9 TYPE 2 DIABETES MELLITUS WITHOUT COMPLIC 07/08/2019 [facility] DO, DEBBIE L Ot E78.0 0 PURE HYPERCHOLESTEROLEMIA, UNSPECIFIED 07/08/2019 [facility] DO, DEBBIE L Ot F31.9 BIPOLAR DISORDER, UNSPECIFIED 07/08/2019 [facility] DO, DEBBIE L Ot F41.0 PANIC DISORDER [EPISODIC PAROXYSMAL ANXI 07/08/2019 [facility] DO, DEBBIE L Ot I10 ESSENTIAL (PRIMARY) HYPERTENSION 07/08/2019 [facility] DO, DEBBIE L Ot J43.9 EMPHYSEMA, UNSPECIFIED 07/08/2019 [facility] DO, DEBBIE L Ot R73.9 HYPERGLYCEMIA, UNSPECIFIED 07/08/2019 [facility] DO, DEBBIE L Ot Z77.2 2 CNTCT W AND EXPSR TO ENVIRON TOBACCO SMO 07/08/2019 [facility] DO, DEBBIE L Ot Z79.4 JAIL (CURRENT) USE OF INSULIN 07/08/2019 [facility] DO, DEBBIE L Ot Z85.5 1 PERSONAL HISTORY OF MALIGNANT NEOPLASM O 07/08/2019 [facility] DO, DEBBIE L Ot Z85.5 28 PERSONAL HISTORY OF OTHER MALIGNANT NEOP 07/08/2019 [facility] DO, DEBBIE L Ot Z87.4 42 PERSONAL HISTORY OF URINARY CALCULI 07/08/2019 [facility] DO, DEBBIE L Ot Z90.5 ACQUIRED ABSENCE OF KIDNEY 07/08/2019 [facility] DO, DEBBIE L Ot Z90.7 10 ACQUIRED ABSENCE OF BOTH CERVIX AND UTER 07/08/2019 DEBBIE BASS DO Ot Z98.5 1 TUBAL LIGATION STATUS Procedures Code Description [place] [address] GLUCOSE 05/08/2013 67790 HEMO GLOBIN A1C 05/08/2013 G0008 ADMI N FEE (MEDICARE) INFLUENZA 05/14/2013 72688 CBC - CBC WITH DIFF - LC 05/15/2013 92121 COMP - COMPREHENSIVE PANEL - LC 05/15/2013 60178 LIPI D - LIPID PANEL - LC 05/15/2013 25583 TSH - TSH - LC 05/15/2013 20322 MALB - MICROALBUMIN - LC 05/15/2013 28203 GLUCOSE 08/11/2013 00574 HEMO GLOBIN A1C 08/11/2013 21075 CBC WITH DIFF 08/12/2013 51610 GLUCOSE 10/07/2013 4000F TOBA [employer]PERATOR USE TXMNT COUNSELING 10/13/2013 92680 PULS E OXIMETRY 12/12/2013 A4614 PEAK FLOW 12/12/2013 90197 GLUCOSE 12/12/2013 33089 HEMO GLOBIN A1C 12/12/2013 Pulmonary Pulmonary Function Test 01/13/2014 A4614 PEAK FLOW 02/10/2014 51897 PULS E OXIMETRY 02/10/2014 97104 GLUCOSE 02/10/2014 Endocrino Endocrinology 02/13/2014 Pulmonary Pulmonology, Pulmonology 03/13/2014 23317 PULS E OXIMETRY 04/14/2014 A4614 PEAK FLOW 04/14/2014 Results Test Result Range TRICHOMONAS RAPID ANTIGEN - 09/02/14 09: 00 TRICHOMONAS RAPID ANTIGEN NEGATIVE NEGA TIVE CHLAMYDIA TRACH. BY AMP DNA - 09/02/14 0 9:00 CHLAMYDIA TRACH. BY AMP DNA NEGATIVE NE GATIVE HUMAN PAPILLOMAVIRUS - 09/02/14 09:00 HPV RESULT POSITIVE NEGATIVE PAP LIQUID PAP SCREENING - 09/02/14 09:0 0 PAP RESULT ASCUS NEGATIVE CULTURE GENITAL - 09/02/14 09:00 SOURCE SOURCE: VAGINAL REQUISITION NOTE REQUISITION NOTE: NONE CULTURE RESULTS CULTURE RESULTS: AND SCANT N ORMAL GENITAL TRACT REGINALD A REPORT STATUS REPORT [...] 1-1.8 LIPID PANEL W/REFLEX LDL - 09/02/14 12:4 5 TRIGLYCERIDES 174 mg/dL 20-170 CHOLESTEROL 239 mg/dL 140-200 HDL 38 mg/dL 35-60 LDL 166 mg/dL 60-130 TSH WITH REFLEX TO FREE T4 - 09/02/14 12 :45 TSH 2.60 m[iU]/mL 0.35-4.90 HEMOGLOBIN A1C - [...] ratio 1-1.8 Capillary blood glucose measurement by g lucometer (mass/volume) - 09/18/18 21:24 Capillary blood glucose measurement by glucometer (mas s/volume) > mg/dL 70-110 Bacterial urine culture - 09/18/18 21:30 Bacterial urine culture NG NR Automated blood complete blood count (he mogram) panel - 09/18/18 22:05 Blood leukocytes automated count (number/volume) 8.0 10*3/uL 4.3-11.0 Blood erythrocytes automated count (number/volume) 4.31 10*6/uL 4.35-5.85 Venous blood hemoglobin measurement (mass/volume) 11.2 g/dL 11.5-16.0 Blood hematocrit (volume fraction) 37 % 35-52 Automated erythrocyte mean corpuscular volume 847 [foz_us] 80-99 Automated erythrocyte mean corpuscular h emoglobin (mass per erythrocyte) 26 pg 25-34 Automated erythrocyte mean corpuscular h emoglobin concentration measurement (mass/volume) 31 g/dL 32-36 Automated erythrocyte distribution width ratio 18. 1 % 10.0- 14.5 Automated blood platelet count [...] 5-14 Serum or plasma urea nitrogen measurement (mass/volume ) 21 mg/dL 7-18 Serum or plasma creatinine measurement (mass/volume) 1.11 mg/dL 0.60-1.30 Serum or plasma urea nitrogen/creatinine mass ratio 19 NRG Serum or plasma creatinine measurement w ith calculation of estimated glomerular filtration rate 52 NRG Serum or plasma glucose measurement (mass/volume) 786 mg/dL 70-105 Serum or plasma calcium measurement (mass/volume) 9.3 mg/dL 8.5-10.1 Serum or plasma total bilirubin measurement (mass/volu me) 0.2 mg/dL 0.1-1.0 Serum or plasma alkaline phosphatase alessandra surement (enzymatic activity/volume) 167 U/L 40-136 Serum or plasma aspartate aminotransfera se measurement (enzymatic activity/volume) 13 U/L 5-34 Serum or plasma alanine aminotransferase measurement (enzymatic activity/volume) 15 U/L 0-55 Serum or plasma protein measurement (mass/volume) 7.8 g/dL 6.4-8.2 Serum or plasma albumin measurement (mass/volume) 3.9 g/dL 3.2-4.5 CALCIUM CORRECTED 9.4 mg/dL 8.5-10.1 TROPONIN T - 09/18/18 22:05 TROPONIN T < 6 <=10 Lipase - 09/18/18 22:05 Lipase 89 U/L 8-78 Capillary blood glucose measurement by g lucometer (mass/volume) - 09/19/18 00:34 Capillary blood glucose measurement by glucometer (mas s/volume) > mg/dL 70-110 Whole blood basic metabolic panel - 01/31 00:50 Serum or plasma sodium measurement (moles/volume) 128 mmol/L 135-145 Serum or plasma potassium measurement (moles/volume) 4.7 mmol/L 3.6-5.0 Serum or plasma chloride measurement (moles/volume) 92 mmol/L 98-107 Carbon dioxide 20 mmol/L 21-32 Serum or plasma anion gap determination (moles/volume) 16 mmol/L 5-14 Serum or plasma urea nitrogen measurement (mass/volume ) 22 mg/dL 7-18 Serum or plasma creatinine measurement (mass/volume) 0.98 mg/dL 0.60-1.30 Serum or plasma urea nitrogen/creatinine mass ratio 22 NRG Serum or plasma creatinine measurement w ith calculation of estimated glomerular filtration rate 60 NRG Serum or plasma glucose measurement (mass/volume) 680 mg/dL 70-105 Serum or plasma calcium measurement (mass/volume) 8.6 mg/dL 8.5-10.1 Capillary blood glucose measurement by g lucometer (mass/volume) - 09/19/18 03:58 Capillary blood glucose measurement by glucometer (mas s/volume) 465 mg/dL 70-110 Capillary blood glucose measurement by g lucometer (mass/volume) - 09/19/18 07:24 Capillary blood glucose measurement by glucometer (mas s/volume) 444 mg/dL 70-110 LIPID PANEL - 09/25/18 09:00 CHOLESTEROL, TOTAL 154 mg/dL <200 HDL CHOLESTEROL 42 mg/dL >50 TRIGLYCERIDES 259 mg/dL <150 LDL-CHOLESTEROL 78 mg/dL (calc) NRG CHOL/HDLC RATIO 3.7 (calc) <5.0 NON HDL CHOLESTEROL 112 mg/dL (calc) <13 0 CMP - 09/25/18 09:00 GLUCOSE 223 mg/dL 65-99 UREA NITROGEN (BUN) 14 mg/dL 7-25 CREATININE 0.90 mg/dL 0.50-1.05 eGFR NON-AFR. [place] 74 mL/min/1.73m2 > OR = 60 eGFR 86 mL/min/1.73m2 > OR = 60 BUN/CREATININE RATIO NOT APPLICABLE (calc) 6-22 SODIUM 136 mmol/L 135-146 POTASSIUM 4.4 mmol/L 3.5-5.3 CHLORIDE 101 mmol/L 98-110 CARBON DIOXIDE 29 mmol/L 20-32 CALCIUM 9.1 mg/dL 8.6-10.4 PROTEIN, TOTAL 7.0 g/dL 6.1-8.1 ALBUMIN 3.8 g/dL 3.6-5.1 GLOBULIN 3.2 g/dL (calc) 1.9-3.7 ALBUMIN/GLOBULIN RATIO 1.2 (calc) 1.0-2. 5 BILIRUBIN, TOTAL 0.3 mg/dL 0.2-1.2 ALKALINE PHOSPHATASE 106 U/L 33-130 AST 12 U/L 10-35 ALT 22 U/L 6-29 MICROALBUMIN/CREATININE RATIO, URINE - 0 10/07/18 12:54 CREATININE, RANDOM URINE 16 mg/dL 20-27 5 MICROALBUMIN 0.2 mg/dL See Note: MICROALBUMIN/CREATININE RATIO, RANDOM URINE 13 mcg /mg creat <30 Capillary blood glucose measurement by g lucometer (mass/volume) - 10/13/18 17:20 Capillary blood glucose measurement by glucometer (mas s/volume) 228 mg/dL 70-110 Complete blood count (CBC) with automate d white blood cell (WBC) differential - 10/13/18 17:36 Blood leukocytes automated count (number/volume) 3.2 10*3/uL 4.3-11.0 Blood erythrocytes automated count (number/volume) 3.97 10*6/uL 4.35-5.85 Venous blood hemoglobin measurement (mass/volume) 10.3 g/dL 11.5-16.0 Blood hematocrit (volume fraction) 33 % 35-52 Automated erythrocyte mean corpuscular volume 83 [ foz_us] 80-99 Automated erythrocyte mean corpuscular h emoglobin (mass per erythrocyte) 26 pg 25-34 Automated erythrocyte mean corpuscular h emoglobin concentration measurement (mass/volume) 31 g/dL 32-36 Automated erythrocyte distribution width ratio 19. 6 % 10.0- 14.5 Automated blood platelet count [...] 10*3 1.0-4.0 Blood monocytes automated count (number/volume) 0. 1 10*3 0.0-1.0 Automated eosinophil count 0.1 10*3/uL 0 .0-0.3 Automated blood basophil count (count/volume) 0.0 10*3/uL 0.0-0.1 Fibrin D-dimer FEU measurement in platel et poor plasma (mass/volume) - 10/13/18 17:36 Fibrin D-dimer FEU measurement in platelet poor plasma (mass/volume) 1.25 ug/mL 0.00-0.49 PT panel in platelet poor plasma by coag ulation assay - 10/13/18 17:36 Prothrombin time (PT) in platelet poor plasma by coagu lation assay 12.9 s 12.2-14.7 INR in platelet poor plasma or blood by coagulation as say 1.0 0.8-1.4 Activated partial thromboplastin time (a PTT) in platelet poor plasma bycoagulation assay - 10/13/18 17:36 Activated partial thromboplastin time (a PTT) in platelet poor plasma bycoagulation assay 25 [...] 5-14 Serum or plasma urea nitrogen measurement (mass/volume ) 17 mg/dL 7-18 Serum or plasma creatinine measurement (mass/volume) 0.98 mg/dL 0.60-1.30 Serum or plasma urea nitrogen/creatinine mass ratio 17 NRG Serum or plasma creatinine measurement w ith calculation of estimated glomerular filtration rate 60 NRG Serum or plasma glucose measurement (mass/volume) 229 mg/dL 70-105 Serum or plasma calcium measurement (mass/volume) 9.7 mg/dL 8.5-10.1 Serum or plasma total bilirubin measurement (mass/volu me) 0.2 mg/dL 0.1-1.0 Serum or plasma alkaline phosphatase alessandra surement (enzymatic activity/volume) 122 U/L 40-136 Serum or plasma aspartate aminotransfera se measurement (enzymatic activity/volume) 14 U/L 5-34 Serum or plasma alanine aminotransferase measurement (enzymatic activity/volume) 22 U/L 0-55 Serum or plasma protein measurement (mass/volume) 7.4 g/dL 6.4-8.2 Serum or plasma albumin measurement (mass/volume) 4.1 g/dL 3.2-4.5 CALCIUM CORRECTED 9.6 mg/dL 8.5-10.1 Magnesium - 10/13/18 17:36 Magnesium 2.1 mg/dL 1.8-2.4 Complete blood count (CBC) with automate d white blood cell (WBC) differential - 10/16/18 23:23 Blood leukocytes automated count (number/volume) 3.8 10*3/uL 4.3-11.0 Blood erythrocytes automated count (number/volume) 3.42 10*6/uL 4.35-5.85 Venous blood hemoglobin measurement (mass/volume) 9.0 g/dL 11.5-16.0 Blood hematocrit (volume fraction) 29 % 35-52 Automated erythrocyte mean corpuscular volume 83 [ foz_us] 80-99 Automated erythrocyte mean corpuscular h emoglobin (mass per erythrocyte) 26 pg 25-34 Automated erythrocyte mean corpuscular h emoglobin concentration measurement (mass/volume) 32 g/dL 32-36 Automated erythrocyte distribution width ratio 19. 2 % 10.0- 14.5 Automated blood platelet count [...] 10*3 1.0-4.0 Blood monocytes automated count (number/volume) 0. 1 10*3 0.0-1.0 Automated eosinophil count 0.0 10*3/uL 0 .0-0.3 Automated blood basophil count (count/volume) 0.1 10*3/uL 0.0-0.1 Comprehensive metabolic panel - 10/16/18 23:23 Serum or plasma sodium measurement (moles/volume) 132 mmol/L 135-145 Serum or plasma potassium measurement (moles/volume) 3.7 mmol/L 3.6-5.0 Serum or plasma chloride measurement (moles/volume) 92 mmol/L 98-107 Carbon dioxide 20 mmol/L 21-32 Serum or plasma anion gap determination (moles/volume) 20 mmol/L 5-14 Serum or plasma urea nitrogen measurement (mass/volume ) 16 mg/dL 7-18 Serum or plasma creatinine measurement (mass/volume) 1.15 mg/dL 0.60-1.30 Serum or plasma urea nitrogen/creatinine mass ratio 14 NRG Serum or plasma creatinine measurement w ith calculation of estimated glomerular filtration rate 50 NRG Serum or plasma glucose measurement (mass/volume) 305 mg/dL 70-105 Serum or plasma calcium measurement (mass/volume) 8.8 mg/dL 8.5-10.1 Serum or plasma total bilirubin measurement (mass/volu me) 0.2 mg/dL 0.1-1.0 Serum or plasma alkaline phosphatase alessandra surement (enzymatic activity/volume) 119 U/L 40-136 Serum or plasma aspartate aminotransfera se measurement (enzymatic activity/volume) 11 U/L 5-34 Serum or plasma alanine aminotransferase measurement (enzymatic activity/volume) 18 U/L 0-55 Serum or plasma protein measurement (mass/volume) 6.7 g/dL 6.4-8.2 Serum or plasma albumin measurement (mass/volume) 3.8 g/dL 3.2-4.5 CALCIUM CORRECTED 9.0 mg/dL 8.5-10.1 C Wound - 10/30/18 17:22 Pre Many Gram Positive Cocci Sammi ntification and susceptibility to follow. ORGANISM SA Final Many Staphylococcus aureus Gram Stain Moderate White Blood Cells . brMany Gram Positive Cocci KARINA - 10/30/18 17:22 Gent Trough <=0.5 ORGANISM SA Cipro <=0.5 Levo 0.25 SXT <=10 Clinda Dapto <=0.12 Doxy <=0.5 Eryth >=8 Linez 2 Moxi <=0.25 Ox <=0.25 Rif <=0.5 Tetra <=1 Tige <=0.12 Vanc <=0.5 Capillary blood glucose measurement by g lucometer (mass/volume) - 10/30/18 22:23 Capillary blood glucose measurement by glucometer (mas s/volume) > mg/dL 70-110 Capillary blood glucose measurement by g lucometer (mass/volume) - 10/30/18 23:54 Capillary blood glucose measurement by glucometer (mas s/volume) > mg/dL 70-110 Blood CBC with ordered manual differenti al panel - 11/06/18 18:25 Blood leukocytes automated count (number/volume) 9.3 10*3/uL 4.3-11.0 Blood erythrocytes automated count (number/volume) 2.68 10*6/uL 4.35-5.85 Venous blood hemoglobin measurement (mass/volume) 7.3 g/dL 11.5-16.0 Blood hematocrit (volume fraction) 23 % 35-52 Automated erythrocyte mean corpuscular volume 86 [ foz_us] 80-99 Automated erythrocyte mean corpuscular h emoglobin (mass per erythrocyte) 27 pg 25-34 Automated erythrocyte mean corpuscular h emoglobin concentration measurement (mass/volume) 32 g/dL 32-36 Automated erythrocyte distribution width ratio 22. 3 % 10.0- 14.5 Automated blood platelet count [...] 10*3 1.0-4.0 Blood monocytes automated count (number/volume) 1. 0 10*3 0.0-1.0 Automated eosinophil count 0.0 10*3/uL 0 .0-0.3 Automated blood basophil count (count/volume) 0.1 10*3/uL 0.0-0.1 Manual blood segmented neutrophils/100 leukocytes 72 % NRG Blood band neutrophils/100 leukocytes 3 % NRG Manual blood lymphocytes/100 leukocytes 19 % NRG Manual eosinophils/100 leukocytes in nose 1 % NRG Manual blood basophils/100 leukocytes 1 % NRG Blood anisocytosis detection by light microscopy S LIGHT NRG Blood dohle body detection by light microscopy [facility] Blood microcytes detection by light microscopy [facility] Comprehensive metabolic panel - 11/06/18 18:25 Serum or plasma sodium measurement (moles/volume) 128 mmol/L 135-145 Serum or plasma potassium measurement (moles/volume) 4.0 mmol/L 3.6-5.0 Serum or plasma chloride measurement (moles/volume) 92 mmol/L 98-107 Carbon dioxide 26 mmol/L 21-32 Serum or plasma anion gap determination (moles/volume) 10 mmol/L 5-14 Serum or plasma urea nitrogen measurement (mass/volume ) 14 mg/dL 7-18 Serum or plasma creatinine measurement (mass/volume) 1.60 mg/dL 0.60-1.30 Serum or plasma urea nitrogen/creatinine mass ratio 9 NRG Serum or plasma creatinine measurement w ith calculation of estimated glomerular filtration rate 34 NRG Serum or plasma glucose measurement (mass/volume) 420 mg/dL 70-105 Serum or plasma calcium measurement (mass/volume) 8.8 mg/dL 8.5-10.1 Serum or plasma total bilirubin measurement (mass/volu me) 0.3 mg/dL 0.1-1.0 Serum or plasma alkaline phosphatase alessandra surement (enzymatic activity/volume) 146 U/L 40-136 Serum or plasma aspartate aminotransfera se measurement (enzymatic activity/volume) 6 U/L 5-34 Serum or plasma alanine aminotransferase measurement (enzymatic activity/volume) 11 U/L 0-55 Serum or plasma protein measurement (mass/volume) 7.0 g/dL 6.4-8.2 Serum or plasma albumin measurement (mass/volume) 3.3 g/dL 3.2-4.5 CALCIUM CORRECTED 9.4 mg/dL 8.5-10.1 TROPONIN T - 11/06/18 18:25 TROPONIN T 11 % <=10 Blood lactic acid measurement (moles/vol ume) - 11/06/18 18:55 Blood lactic acid measurement (moles/volume) 1.19 mmol/L 0.50-2.00 Bacterial blood culture - 11/06/18 18:55 Bacterial blood culture NG [facility] Influenza virus A and B antigen detectio n - 11/06/18 18:59 FLU RESULT NEGATIVE FOR INFLUENZA A AND B ANTIGENS BY IA [facility] Bacterial blood culture - 11/06/18 19:08 Bacterial blood culture NG [facility] Capillary blood glucose measurement by g lucometer (mass/volume) - 11/06/18 21:05 Capillary blood glucose measurement by glucometer (mas s/volume) 418 mg/dL 70-110 Capillary blood glucose measurement by g lucometer (mass/volume) - 11/06/18 22:18 Capillary blood glucose measurement by glucometer (mas s/volume) 403 mg/dL 70-110 Capillary blood glucose measurement by g lucometer (mass/volume) - 11/14/18 22:05 Capillary blood glucose measurement by glucometer (mas s/volume) 73 mg/dL 70-110 Whole blood basic metabolic panel - 09/03 22:40 Serum or plasma sodium measurement (moles/volume) 140 mmol/L 135-145 Serum or plasma potassium measurement (moles/volume) 3.8 mmol/L 3.6-5.0 Serum or plasma chloride measurement (moles/volume) 99 mmol/L 98-107 Carbon dioxide 23 mmol/L 21-32 Serum or plasma anion gap determination (moles/volume) 18 mmol/L 5-14 Serum or plasma urea nitrogen measurement (mass/volume ) 12 mg/dL 7-18 Serum or plasma creatinine measurement (mass/volume) 0.96 mg/dL 0.60-1.30 Serum or plasma urea nitrogen/creatinine mass ratio 13 NRG Serum or plasma creatinine measurement w ith calculation of estimated glomerular filtration rate > NRG Serum or plasma glucose measurement (mass/volume) 69 mg/dL 70-105 Serum or plasma calcium measurement (mass/volume) 9.4 mg/dL 8.5-10.1 Blood lactic acid measurement (moles/vol ume) - 11/29/18 09:20 Blood lactic acid measurement (moles/volume) 1.63 mmol/L 0.50-2.00 Comprehensive metabolic panel - 11/29/18 09:20 Serum or plasma sodium measurement (moles/volume) 133 mmol/L 135-145 Serum or plasma potassium measurement (moles/volume) 4.5 mmol/L 3.6-5.0 Serum or plasma chloride measurement (moles/volume) 97 mmol/L 98-107 Carbon dioxide 18 mmol/L 21-32 Serum or plasma anion gap determination (moles/volume) 18 mmol/L 5-14 Serum or plasma urea nitrogen measurement (mass/volume ) 35 mg/dL 7-18 Serum or plasma creatinine measurement (mass/volume) 3.51 mg/dL 0.60-1.30 Serum or plasma urea nitrogen/creatinine mass ratio 10 NRG Serum or plasma creatinine measurement w ith calculation of estimated glomerular filtration rate 14 NRG Serum or plasma glucose measurement (mass/volume) 157 mg/dL 70-105 Serum or plasma calcium measurement (mass/volume) 8.1 mg/dL 8.5-10.1 Serum or plasma total bilirubin measurement (mass/volu me) 0.3 mg/dL 0.1-1.0 Serum or plasma alkaline phosphatase alessandra surement (enzymatic activity/volume) 80 U/L 40-136 Serum or plasma aspartate aminotransfera se measurement (enzymatic activity/volume) 9 U/L 5-34 Serum or plasma alanine aminotransferase measurement (enzymatic activity/volume) 10 U/L 0-55 Serum or plasma protein measurement (mass/volume) 6.1 g/dL 6.4-8.2 Serum or plasma albumin measurement (mass/volume) 3.0 g/dL 3.2-4.5 CALCIUM CORRECTED 8.9 mg/dL 8.5-10.1 Magnesium - 11/29/18 09:20 Magnesium 1.8 mg/dL 1.8-2.4 Lipase - 11/29/18 09:20 Lipase 26 U/L 8-78 Complete blood count (CBC) with automate d white blood cell (WBC) differential - 11/29/18 09:20 Blood leukocytes automated count (number/volume) 11.6 10*3/uL 4.3-11.0 Blood erythrocytes automated count (number/volume) 3.33 10*6/uL 4.35-5.85 Venous blood hemoglobin measurement (mass/volume) 9.3 g/dL 11.5-16.0 Blood hematocrit (volume fraction) 31 % 35-52 Automated erythrocyte mean corpuscular volume 93 [ foz_us] 80-99 Automated erythrocyte mean corpuscular h emoglobin (mass per erythrocyte) 28 pg 25-34 Automated erythrocyte mean corpuscular h emoglobin concentration measurement (mass/volume) 30 g/dL 32-36 Automated erythrocyte distribution width ratio 22. 8 % 10.0- 14.5 Automated blood platelet count [...] 10*3 1.0-4.0 Blood monocytes automated count (number/volume) 0. 8 10*3 0.0-1.0 Automated eosinophil count 1.1 10*3/uL 0 .0-0.3 Automated blood basophil count (count/volume) 0.1 10*3/uL 0.0-0.1 Bacterial blood culture - 11/29/18 09:20 Bacterial blood culture NG NRG Bacterial blood culture - 11/29/18 09:55 Bacterial blood culture NG NRG Complete urinalysis with reflex to cultu re - 11/29/18 10:10 Urine color determination AKBAR NRG Urine clarity determination CLEAR NR G Urine pH measurement by test strip 5.5 5-9 Specific gravity of urine by test strip 1.010 1.016-1.022 Urine protein assay by test strip, semi-quantitative NEGATIVE NEGATIVE Urine glucose detection by automated test strip NE GATIVE NEGATIVE Erythrocytes detection in urine sediment by light micr oscopy 1+ NEGATIVE Urine ketones detection by automated test strip NE GATIVE NEGATIVE Urine nitrite detection by test strip POSITIVE NEGATIVE Urine total bilirubin detection by test strip NEGA TIVE NEGATIVE Urine urobilinogen measurement by automated test strip (mass/volume) 0.2 mg/dL NORMAL Urine leukocyte esterase detection by dipstick 1+ NEGATIVE Automated urine sediment erythrocyte cou nt by microscopy (number/high power field) [HPF] NRG Automated urine sediment leukocyte count by microscopy (number/high power field) [HPF] NRG Bacteria detection in urine sediment by light microsco py FEW NRG Squamous epithelial cells detection in u rine sediment by light microscopy RARE NRG Crystals detection in urine sediment by light microsco py PRESENT NRG Casts detection in urine sediment by light microscopy PRESENT NRG Mucus detection in urine sediment by light microscopy SMALL NRG Complete urinalysis with reflex to culture YES NRG Amorphous sediment detection in urine sediment by ligh t microscopy FEW VENU URATES NRG Hyaline casts detection in urine sediment by light karina roscopy RARE NRG Bacterial urine culture - 11/29/18 10:10 Bacterial urine culture NG NRG Complete urinalysis with reflex to cultu re - 12/14/18 15:18 Urine color determination YELLOW NRG Urine clarity determination SLT CLOUDY NRG Urine pH measurement by test strip 6.0 5-9 Specific gravity of urine by test strip 1.025 1.016-1.022 Urine protein assay by test strip, semi-quantitative 1+ NEGATIVE Urine glucose detection by automated test strip 3+ NEGATIVE Erythrocytes detection in urine sediment by light micr oscopy 1+ NEGATIVE Urine ketones detection by automated test strip NE GATIVE NEGATIVE Urine nitrite detection by test strip NEGATIVE NEGATIVE Urine total bilirubin detection by test strip NEGA TIVE NEGATIVE Urine urobilinogen measurement by automated test strip (mass/volume) 0.2 mg/dL NORMAL Urine leukocyte esterase detection by dipstick TRA CE NEGATIVE Automated urine sediment erythrocyte cou nt by microscopy (number/high power field) [HPF] NRG Automated urine sediment leukocyte count by microscopy (number/high power field) [HPF] NRG Bacteria detection in urine sediment by light microsco py TRACE NRG Squamous epithelial cells detection in u rine sediment by light microscopy 0-2 NRG Crystals detection in urine sediment by light microsco py NONE NRG Casts detection in urine sediment by light microscopy NONE NRG Mucus detection in urine sediment by light microscopy SMALL NRG Complete urinalysis with reflex to culture YES NRG Bacterial urine culture - 12/14/18 15:18 Bacterial urine culture YEAST NRG COLONY COUNT 80,000 CFU/ML NRG FTX;REPORTABLE RML AMENDED REPORT RCD 12/17 09:05 NRG Capillary blood glucose measurement by g lucometer (mass/volume) - 12/14/18 15:27 Capillary blood glucose measurement by glucometer (mas s/volume) 243 mg/dL 70-110 CULTURE, URINE - 12/18/18 [...] 17:24 WHITE BLOOD CELL COUNT TNP [place]/uL N RG CULTURE, URINE - 12/30/18 17:24 CULTURE, URINE, ROUTINE SEE NOTE NRG STOOL (WBC) - 12/30/18 17:24 FECAL LEUKOCYTE STAIN NRG CULTURE, STOOL - 12/30/18 17:24 SALMONELLA AND SHIGELLA, CULTURE NRG Complete urinalysis with reflex to cultu re - 01/02/19 05:13 Urine color determination YELLOW NRG Urine clarity determination CLEAR NR G Urine pH measurement by test strip 6 5-9 Specific gravity of urine by test strip 1.010 1.016-1.022 Urine protein assay by test strip, semi-quantitative TRACE NEGATIVE Urine glucose detection by automated test strip NE GATIVE NEGATIVE Erythrocytes detection in urine sediment by light micr oscopy 1+ NEGATIVE Urine ketones detection by automated test strip NE GATIVE NEGATIVE Urine nitrite detection by test strip NEGATIVE NEGATIVE Urine total bilirubin detection by test strip NEGA TIVE NEGATIVE Urine urobilinogen measurement by automated test strip (mass/volume) NORMAL NORMAL Urine leukocyte esterase detection by dipstick 2+ NEGATIVE Automated urine sediment erythrocyte cou nt by microscopy (number/high power field) [HPF] NRG Automated urine sediment leukocyte count by microscopy (number/high power field) [HPF] NRG Bacteria detection in urine sediment by light microsco py FEW NRG Squamous epithelial cells detection in u rine sediment by light microscopy 0-2 NRG Crystals detection in urine sediment by light microsco py NONE NRG Casts detection in urine sediment [...] PERFORMED NRG Complete urinalysis with reflex to cultu re - 01/04/19 19:30 Urine color determination YELLOW NRG Urine clarity determination CLEAR NR G Urine pH measurement by test strip 5.5 5-9 Specific gravity of urine by test strip 1.025 1.016-1.022 Urine protein assay by test strip, semi-quantitative 1+ NEGATIVE Urine glucose detection by automated test strip NE GATIVE NEGATIVE Erythrocytes detection in urine sediment by light micr oscopy TRACE NEGATIVE Urine ketones detection by automated test strip TR MCKAYLA NEGATIVE Urine nitrite detection by test strip NEGATIVE NEGATIVE Urine total bilirubin detection by test strip NEGA TIVE NEGATIVE Urine urobilinogen measurement by automated test strip (mass/volume) 0.2 mg/dL NORMAL Urine leukocyte esterase detection by dipstick 2+ NEGATIVE Automated urine sediment erythrocyte cou nt by microscopy (number/high power field) [HPF] NRG Automated urine sediment leukocyte count by microscopy (number/high power field) [HPF] NRG Bacteria detection in urine sediment by light microsco py TRACE NRG Squamous epithelial cells detection in u rine sediment by light microscopy 0-2 NRG Crystals detection in urine sediment by light microsco py NONE NRG Casts detection in urine sediment by light microscopy NONE NRG Mucus detection in urine sediment by light microscopy NONE NRG Complete urinalysis with reflex to culture YES NRG Yeast detection in urine sediment by light microscopy FEW NRG Bacterial urine culture - 01/04/19 19:30 Bacterial urine culture [id number] NRG COLONY COUNT 30,000 CFU/ML NRG Complete urinalysis with reflex to cultu re - 01/04/19 20:35 Urine color determination YELLOW NRG Urine clarity determination SLT CLOUDY NRG Urine pH measurement by test strip 5.5 5-9 Specific gravity of urine by test strip >= 1.016-1.022 Urine protein assay by test strip, semi-quantitative 1+ NEGATIVE Urine glucose detection by automated test strip NE GATIVE NEGATIVE Erythrocytes detection in urine sediment by light micr oscopy TRACE NEGATIVE Urine ketones detection by automated test strip NE GATIVE NEGATIVE Urine nitrite detection by test strip NEGATIVE NEGATIVE Urine total bilirubin detection by test strip NEGA TIVE NEGATIVE Urine urobilinogen measurement by automated test strip (mass/volume) 0.2 mg/dL NORMAL Urine leukocyte esterase detection by dipstick 1+ NEGATIVE Automated urine sediment erythrocyte cou nt by microscopy (number/high power field) [HPF] NRG Automated urine sediment leukocyte count by microscopy (number/high power field) [HPF] NRG Bacteria detection in urine sediment by light microsco py TRACE NRG Squamous epithelial cells detection in u rine sediment by light microscopy 0-2 NRG Crystals detection in urine sediment by light microsco py NONE NRG Casts detection in urine sediment by light microscopy NONE NRG Mucus detection in urine sediment by light microscopy SMALL NRG Complete urinalysis with reflex to culture NO NRG Yeast detection in urine sediment by light microscopy FEW NRG Bacterial urine culture - 01/04/19 20:35 Bacterial urine culture [id number] NRG COLONY COUNT . NRG FTX;REPORTABLE <10,000 CFU/ML NRG Complete urinalysis with reflex to cultu re - 01/06/19 22:11 Urine color determination YELLOW NRG Urine clarity determination CLEAR NR G Urine pH measurement by test strip 6.0 5-9 Specific gravity of urine by test strip < 1.016-1.022 Urine protein assay by test strip, semi-quantitative NEGATIVE NEGATIVE Urine glucose detection by automated test strip NE GATIVE NEGATIVE Erythrocytes detection in urine sediment by light micr oscopy TRACE NEGATIVE Urine ketones detection by automated test strip NE GATIVE NEGATIVE Urine nitrite detection by test strip NEGATIVE NEGATIVE Urine total bilirubin detection by test strip NEGA TIVE NEGATIVE Urine urobilinogen measurement by automated test strip (mass/volume) 0.2 mg/dL NORMAL Urine leukocyte esterase detection by dipstick 1+ NEGATIVE Automated urine sediment erythrocyte cou nt by microscopy (number/high power field) NONE NRG Automated urine sediment leukocyte count by microscopy (number/high power field) [HPF] NRG Bacteria detection in urine sediment by light microsco py TRACE NRG Squamous epithelial cells detection in u rine sediment by light microscopy 2-5 NRG Crystals detection in urine sediment by light microsco py NONE NRG Casts detection in urine sediment by light microscopy NONE NRG Mucus detection in urine sediment by light microscopy NEGATIVE NRG Complete urinalysis with reflex to culture YES NRG Urine drug screening test - 01/06/19 22: 11 Urine phencyclidine detection by screening method NEGATIVE NEGATIVE Urine benzodiazepines detection by screening method NEGATIVE NEGATIVE Urine cocaine detection NEGATIVE NEGATI VE Urine amphetamines detection by screening method N EGATIVE NEGATIVE Urine methamphetamine detection by screening method NEGATIVE NEGATIVE Urine cannabinoids detection by screening method N EGATIVE NEGATIVE Urine opiates detection by screening method NEGATI VE NEGATIVE Urine barbiturates detection NEGATIVE N EGATIVE Screening urine tricyclic antidepressants detection NEGATIVE NEGATIVE Urine methadone detection by screening method NEGA TIVE NEGATIVE Urine oxycodone detection NEGATIVE NEGA TIVE Urine propoxyphene detection NEGATIVE N EGATIVE Bacterial urine culture - 01/06/19 22:11 Bacterial urine culture NG NRG Complete blood count (CBC) with automate d white blood cell (WBC) differential - 01/06/19 22:23 Blood leukocytes automated count (number/volume) 8.0 10*3/uL 4.3-11.0 Blood erythrocytes automated count (number/volume) 3.71 10*6/uL 4.35-5.85 Venous blood hemoglobin measurement (mass/volume) 10.4 g/dL 11.5-16.0 Blood hematocrit (volume fraction) 34 % 35-52 Automated erythrocyte mean corpuscular volume 92 [ foz_us] 80-99 Automated erythrocyte mean corpuscular h emoglobin (mass per erythrocyte) 28 pg 25-34 Automated erythrocyte mean corpuscular h emoglobin concentration measurement (mass/volume) 30 g/dL 32-36 Automated erythrocyte distribution width ratio 18. 3 % 10.0- 14.5 Automated blood platelet count [...] 10*3 1.0-4.0 Blood monocytes automated count (number/volume) 0. 5 10*3 0.0-1.0 Automated eosinophil count 0.5 10*3/uL 0 .0-0.3 Automated blood basophil count (count/volume) 0.1 10*3/uL 0.0-0.1 Comprehensive metabolic panel - 01/06/19 22:23 Serum or plasma sodium measurement (moles/volume) 138 mmol/L 135-145 Serum or plasma potassium measurement (moles/volume) 3.9 mmol/L 3.6-5.0 Serum or plasma chloride measurement (moles/volume) 99 mmol/L 98-107 Carbon dioxide 26 mmol/L 21-32 Serum or plasma anion gap determination (moles/volume) 13 mmol/L 5-14 Serum or plasma urea nitrogen measurement (mass/volume ) 13 mg/dL 7-18 Serum or plasma creatinine measurement (mass/volume) 0.99 mg/dL 0.60-1.30 Serum or plasma urea nitrogen/creatinine mass ratio 13 NRG Serum or plasma creatinine measurement w ith calculation of estimated glomerular filtration rate 59 NRG Serum or plasma glucose measurement (mass/volume) 168 mg/dL 70-105 Serum or plasma calcium measurement (mass/volume) 9.4 mg/dL 8.5-10.1 Serum or plasma total bilirubin measurement (mass/volu me) 0.2 mg/dL 0.1-1.0 Serum or plasma alkaline phosphatase alessandra surement (enzymatic activity/volume) 112 U/L 40-136 Serum or plasma aspartate aminotransfera se measurement (enzymatic activity/volume) 10 U/L 5-34 Serum or plasma alanine aminotransferase measurement (enzymatic activity/volume) 12 U/L 0-55 Serum or plasma protein measurement (mass/volume) 7.4 g/dL 6.4-8.2 Serum or plasma albumin measurement (mass/volume) 3.9 g/dL 3.2-4.5 CALCIUM CORRECTED 9.5 mg/dL 8.5-10.1 Serum or plasma salicylates measurement (mass/volume) - 01/06/19 22:23 Serum or plasma salicylates measurement (mass/volume) < mg/dL 5.0-20.0 Serum or plasma acetaminophen measuremen t (mass/volume) - 01/06/19 22:23 Serum or plasma acetaminophen measurement (mass/volume ) < ug/mL 10-30 Serum or plasma ethanol measurement (mas s/volume) - 01/06/19 22:23 Serum or plasma ethanol measurement (mass/volume) < mg/dL <10 Complete urinalysis with reflex to cultu re - 01/08/19 17:40 Urine color determination YELLOW NRG Urine clarity determination CLEAR NR G Urine pH measurement by test strip 5.5 5-9 Specific gravity of urine by test strip 1.020 1.016-1.022 Urine protein assay by test strip, semi-quantitative NEGATIVE NEGATIVE Urine glucose detection by automated test strip NE GATIVE NEGATIVE Erythrocytes detection in urine sediment by light micr oscopy NEGATIVE NEGATIVE Urine ketones detection by automated test strip NE GATIVE NEGATIVE Urine nitrite detection by test strip NEGATIVE NEGATIVE Urine total bilirubin detection by test strip NEGA TIVE NEGATIVE Urine urobilinogen measurement by automated test strip (mass/volume) 0.2 mg/dL NORMAL Urine leukocyte esterase detection by dipstick NEG ATIVE NEGATIVE Automated urine sediment erythrocyte cou nt by microscopy (number/high power field) NONE NRG Automated urine sediment leukocyte count by microscopy (number/high power field) [HPF] NRG Bacteria detection in urine sediment by light microsco py TRACE NRG Squamous epithelial cells detection in u rine sediment by light microscopy 5-10 NRG Crystals detection in urine sediment by light microsco py NONE NRG Casts detection in urine sediment [...] PERFORMED NRG Complete blood count (CBC) with automate d white blood cell (WBC) differential - 01/08/19 18:00 Blood leukocytes automated count (number/volume) 8.3 10*3/uL 4.3-11.0 Blood erythrocytes automated count (number/volume) 3.96 10*6/uL 4.35-5.85 Venous blood hemoglobin measurement (mass/volume) 11.2 g/dL 11.5-16.0 Blood hematocrit (volume fraction) 37 % 35-52 Automated erythrocyte mean corpuscular volume 92 [ foz_us] 80-99 Automated erythrocyte mean corpuscular h emoglobin (mass per erythrocyte) 28 pg 25-34 Automated erythrocyte mean corpuscular h emoglobin concentration measurement (mass/volume) 31 g/dL 32-36 Automated erythrocyte distribution width ratio 18. 0 % 10.0- 14.5 Automated blood platelet count [...] 10*3 1.0-4.0 Blood monocytes automated count (number/volume) 0. 6 10*3 0.0-1.0 Automated eosinophil count 0.2 10*3/uL 0 .0-0.3 Automated blood basophil count (count/volume) 0.1 10*3/uL 0.0-0.1 Comprehensive metabolic panel - 01/08/19 18:00 Serum or plasma sodium measurement (moles/volume) 139 mmol/L 135-145 Serum or plasma potassium measurement (moles/volume) 3.7 mmol/L 3.6-5.0 Serum or plasma chloride measurement (moles/volume) 99 mmol/L 98-107 Carbon dioxide 25 mmol/L 21-32 Serum or plasma anion gap determination (moles/volume) 15 mmol/L 5-14 Serum or plasma urea nitrogen measurement (mass/volume ) 7 mg/dL 7-18 Serum or plasma creatinine measurement (mass/volume) 0.95 mg/dL 0.60-1.30 Serum or plasma urea nitrogen/creatinine mass ratio 7 NRG Serum or plasma creatinine measurement w ith calculation of estimated glomerular filtration rate > NRG Serum or plasma glucose measurement (mass/volume) 110 mg/dL 70-105 Serum or plasma calcium measurement (mass/volume) 9.4 mg/dL 8.5-10.1 Serum or plasma total bilirubin measurement (mass/volu me) 0.3 mg/dL 0.1-1.0 Serum or plasma alkaline phosphatase alessandra surement (enzymatic activity/volume) 113 U/L 40-136 Serum or plasma aspartate aminotransfera se measurement (enzymatic activity/volume) 13 U/L 5-34 Serum or plasma alanine aminotransferase measurement (enzymatic activity/volume) 14 U/L 0-55 Serum or plasma protein measurement (mass/volume) 7.9 g/dL 6.4-8.2 Serum or plasma albumin measurement (mass/volume) 4.2 g/dL 3.2-4.5 CALCIUM CORRECTED 9.2 mg/dL 8.5-10.1 TROPONIN T - 01/08/19 18:00 TROPONIN T 6 % <=10 Lipase - 01/08/19 18:00 Lipase 46 U/L 8-78 Urine drug screening test - 01/11/19 15: 20 Urine phencyclidine detection by screening method NEGATIVE NEGATIVE Urine benzodiazepines detection by screening method POSITIVE NEGATIVE Urine cocaine detection NEGATIVE NEGATI VE Urine amphetamines detection by screening method N EGATIVE NEGATIVE Urine methamphetamine detection by screening method NEGATIVE NEGATIVE Urine cannabinoids detection by screening method P OSITIVE NEGATIVE Urine opiates detection by screening method POSITI VE NEGATIVE Urine barbiturates detection NEGATIVE N EGATIVE Screening urine tricyclic antidepressants detection NEGATIVE NEGATIVE Urine methadone detection by screening method NEGA TIVE NEGATIVE Urine oxycodone detection NEGATIVE NEGA TIVE Urine propoxyphene detection NEGATIVE N EGATIVE Complete urinalysis with reflex to cultu re - 01/11/19 15:20 Urine color determination YELLOW NRG Urine clarity determination SLIGHTLY CLOUDY NRG Urine pH measurement by test strip 6.5 5-9 Specific gravity of urine by test strip <= 1.016-1.022 Urine protein assay by test strip, semi-quantitative NEGATIVE NEGATIVE Urine glucose detection by automated test strip NE GATIVE NEGATIVE Erythrocytes detection in urine sediment by light micr oscopy NEGATIVE NEGATIVE Urine ketones detection by automated test strip NE GATIVE NEGATIVE Urine nitrite detection by test strip NEGATIVE NEGATIVE Urine total bilirubin detection by test strip NEGA TIVE NEGATIVE Urine urobilinogen measurement by automated test strip (mass/volume) 0.2 mg/dL NORMAL Urine leukocyte esterase detection by dipstick 1+ NEGATIVE Automated urine sediment erythrocyte cou nt by microscopy (number/high power field) [HPF] NRG Automated urine sediment leukocyte count by microscopy (number/high power field) [HPF] NRG Bacteria detection in urine sediment by light microsco py FEW NRG Squamous epithelial cells detection in u rine sediment by light microscopy 2-5 NRG Crystals detection in urine sediment by light microsco py NONE NRG Casts detection in urine sediment by light microscopy NONE NRG Mucus detection in urine sediment by light microscopy NEGATIVE NRG Complete urinalysis with reflex to culture YES NRG Bacterial urine culture - 01/11/19 15:20 Bacterial urine culture NG NRG Complete blood count (CBC) with automate d white blood cell (WBC) differential - 01/11/19 15:40 Blood leukocytes automated count (number/volume) 8.4 10*3/uL 4.3-11.0 Blood erythrocytes automated count (number/volume) 3.48 10*6/uL 4.35-5.85 Venous blood hemoglobin measurement (mass/volume) 9.8 g/dL 11.5-16.0 Blood hematocrit (volume fraction) 32 % 35-52 Automated erythrocyte mean corpuscular volume 92 [ foz_us] 80-99 Automated erythrocyte mean corpuscular h emoglobin (mass per erythrocyte) 28 pg 25-34 Automated erythrocyte mean corpuscular h emoglobin concentration measurement (mass/volume) 31 g/dL 32-36 Automated erythrocyte distribution width ratio 18. 0 % 10.0- 14.5 Automated blood platelet count (count/volume) 186 10*3/uL 130-400 Automated blood platelet mean volume measurement 9.1 [foz_us] 7.4-10.4 Automated blood neutrophils/100 leukocytes 74 % 42-75 Automated blood lymphocytes/100 leukocytes 18 % 12-44 Blood monocytes/100 leukocytes 5 % 0-12 Automated blood eosinophils/100 leukocytes 3 % 0-10 Automated blood basophils/100 leukocytes 0 % 0-10 Blood neutrophils automated count (number/volume) 6.2 10*3 1.8-7.8 Blood lymphocytes automated count (number/volume) 1.5 10*3 1.0-4.0 Blood monocytes automated count (number/volume) 0. 4 10*3 0.0-1.0 Automated eosinophil count 0.2 10*3/uL 0 .0-0.3 Automated blood basophil count (count/volume) 0.0 10*3/uL 0.0-0.1 Comprehensive metabolic panel - 01/11/19 15:40 Serum or plasma sodium measurement (moles/volume) 135 mmol/L 135-145 Serum or plasma potassium measurement (moles/volume) 4.0 mmol/L 3.6-5.0 Serum or plasma chloride measurement (moles/volume) 97 mmol/L 98-107 Carbon dioxide 24 mmol/L 21-32 Serum or plasma anion gap determination (moles/volume) 14 mmol/L 5-14 Serum or plasma urea nitrogen measurement (mass/volume ) 14 mg/dL 7-18 Serum or plasma creatinine measurement (mass/volume) 1.45 mg/dL 0.60-1.30 Serum or plasma urea nitrogen/creatinine mass ratio 10 NRG Serum or plasma creatinine measurement w ith calculation of estimated glomerular filtration rate 38 NRG Serum or plasma glucose measurement (mass/volume) 121 mg/dL 70-105 Serum or plasma calcium measurement (mass/volume) 9.6 mg/dL 8.5-10.1 Serum or plasma total bilirubin measurement (mass/volu me) 0.3 mg/dL 0.1-1.0 Serum or plasma alkaline phosphatase alessandra surement (enzymatic activity/volume) 102 U/L 40-136 Serum or plasma aspartate aminotransfera se measurement (enzymatic activity/volume) 12 U/L 5-34 Serum or plasma alanine aminotransferase measurement (enzymatic activity/volume) 12 U/L 0-55 Serum or plasma protein measurement (mass/volume) 7.1 g/dL 6.4-8.2 Serum or plasma albumin measurement (mass/volume) 3.7 g/dL 3.2-4.5 CALCIUM CORRECTED 9.8 mg/dL 8.5-10.1 Serum or plasma salicylates measurement (mass/volume) - 01/11/19 15:40 Serum or plasma salicylates measurement (mass/volume) < mg/dL 5.0-20.0 Serum or plasma acetaminophen measuremen t (mass/volume) - 01/11/19 15:40 Serum or plasma acetaminophen measurement (mass/volume ) < ug/mL 10-30 Serum or plasma ethanol measurement (mas s/volume) - 01/11/19 15:40 Serum or plasma ethanol measurement (mass/volume) < mg/dL <10 Serum or plasma thyrotropin measurement by detection limit <=0.05 miu/l (units/volume) - 01/11/19 15:40 Serum or plasma thyrotropin measurement by detection limit <=0.05 miu/l (units/volume) 2.74 u[iU]/mL 0.35-4.94 PANEL (PROFILE 1) - 01/30/19 09 :47 Prescribed Drug 1 Tramadol NRG Creatinine 26.8 mg/dL > or = 20.0 pH 6.93 4.5 - 9.0 Oxidant NEGATIVE mcg/mL <200 Amphetamines NEGATIVE ng/mL <500 medMATCH Amphetamines CONSISTENT NRG Benzodiazepines NEGATIVE ng/mL <100 medMATCH Benzodiazepines CONSISTENT NRG Marijuana Metabolite POSITIVE ng/mL <20 Cocaine Metabolite NEGATIVE ng/mL <150 medMATCH Cocaine Metab CONSISTENT NRG Opiates NEGATIVE ng/mL <100 medMATCH Opiates CONSISTENT NRG Oxycodone NEGATIVE ng/mL <100 medMATCH Oxycodone CONSISTENT NRG COMMENT NRG Marijuana Metabolite 110 ng/mL <5 medMATCH Marijuana Metab INCONSISTENT N RG Barbiturates NEGATIVE ng/mL <300 medMATCH Barbiturates CONSISTENT NRG Methadone Metabolite NEGATIVE ng/mL <100 medMATCH Methadone Metab CONSISTENT NRG Phencyclidine NEGATIVE ng/mL <25 medMATCH Phencyclidine CONSISTENT NRG Capillary blood glucose measurement by g lucometer (mass/volume) - 03/22/19 20:35 Capillary blood glucose measurement by glucometer (mas s/volume) 162 mg/dL 70-110 Complete blood count (CBC) with automate d white blood cell (WBC) differential - 03/22/19 20:48 Blood leukocytes automated count (number/volume) 8.2 10*3/uL 4.3-11.0 Blood erythrocytes automated count (number/volume) 3.55 10*6/uL 4.35-5.85 Venous blood hemoglobin measurement (mass/volume) 9.6 g/dL 11.5-16.0 Blood hematocrit (volume fraction) 32 % 35-52 Automated erythrocyte mean corpuscular volume 89 [ foz_us] 80-99 Automated erythrocyte mean corpuscular h emoglobin (mass per erythrocyte) 27 pg 25-34 Automated erythrocyte mean corpuscular h emoglobin concentration measurement (mass/volume) 31 g/dL 32-36 Automated erythrocyte distribution width ratio 18. 2 % 10.0- 14.5 Automated blood platelet count (count/volume) 217 10*3/uL 130-400 Automated blood platelet mean volume measurement 10.3 [foz_us] 7.4-10.4 Automated blood neutrophils/100 leukocytes 65 % 42-75 Automated blood lymphocytes/100 leukocytes 25 % 12-44 Blood monocytes/100 leukocytes 8 % 0-12 Automated blood eosinophils/100 leukocytes 2 % 0-10 Automated blood basophils/100 leukocytes 0 % 0-10 Blood neutrophils automated count (number/volume) 5.4 10*3 1.8-7.8 Blood lymphocytes automated count (number/volume) 2.0 10*3 1.0-4.0 Blood monocytes automated count (number/volume) 0. 6 10*3 0.0-1.0 Automated eosinophil count 0.1 10*3/uL 0 .0-0.3 Automated blood basophil count (count/volume) 0.0 10*3/uL 0.0-0.1 Comprehensive metabolic panel - 03/22/19 20:48 Serum or plasma sodium measurement (moles/volume) 140 mmol/L 135-145 Serum or plasma potassium measurement (moles/volume) 4.3 mmol/L 3.6-5.0 Serum or plasma chloride measurement (moles/volume) 101 mmol/L 98-107 Carbon dioxide 25 mmol/L 21-32 Serum or plasma anion gap determination (moles/volume) 14 mmol/L 5-14 Serum or plasma urea nitrogen measurement (mass/volume ) 17 mg/dL 7-18 Serum or plasma creatinine measurement (mass/volume) 1.32 mg/dL 0.60-1.30 Serum or plasma urea nitrogen/creatinine mass ratio 13 NRG Serum or plasma creatinine measurement w ith calculation of estimated glomerular filtration rate 42 NRG Serum or plasma glucose measurement (mass/volume) 158 mg/dL 70-105 Serum or plasma calcium measurement (mass/volume) 9.5 mg/dL 8.5-10.1 Serum or plasma total bilirubin measurement (mass/volu me) 0.2 mg/dL 0.1-1.0 Serum or plasma alkaline phosphatase alessandra surement (enzymatic activity/volume) 102 U/L 40-136 Serum or plasma aspartate aminotransfera se measurement (enzymatic activity/volume) 13 U/L 5-34 Serum or plasma alanine aminotransferase measurement (enzymatic activity/volume) 17 U/L 0-55 Serum or plasma protein measurement (mass/volume) 6.9 g/dL 6.4-8.2 Serum or plasma albumin measurement (mass/volume) 3.5 g/dL 3.2-4.5 CALCIUM CORRECTED 9.9 mg/dL 8.5-10.1 Magnesium - 03/22/19 20:48 Magnesium 2.0 mg/dL 1.6-2.4 Serum or plasma troponin i.cardiac measu rement (mass/volume) - 03/22/19 20:48 Serum or plasma troponin i.cardiac measurement (mass/v olume) < ng/mL <0.30 Capillary blood glucose measurement by g lucometer (mass/volume) - 03/24/19 11:12 Capillary blood glucose measurement by glucometer (mas s/volume) 134 mg/dL 70-110 Complete blood count (CBC) with automate d white blood cell (WBC) differential - 04/14/19 13:55 Blood leukocytes automated count (number/volume) 7.5 10*3/uL 4.3-11.0 Blood erythrocytes automated count (number/volume) 4.03 10*6/uL 4.35-5.85 Venous blood hemoglobin measurement (mass/volume) 10.8 g/dL 11.5-16.0 Blood hematocrit (volume fraction) 35 % 35-52 Automated erythrocyte mean corpuscular volume 87 [ foz_us] 80-99 Automated erythrocyte mean corpuscular h emoglobin (mass per erythrocyte) 27 pg 25-34 Automated erythrocyte mean corpuscular h emoglobin concentration measurement (mass/volume) 31 g/dL 32-36 Automated erythrocyte distribution width ratio 18. 6 % 10.0- 14.5 Automated blood platelet count (count/volume) 207 10*3/uL 130-400 Automated blood platelet mean volume measurement 10.3 [foz_us] 7.4-10.4 Automated blood neutrophils/100 leukocytes 63 % 42-75 Automated blood lymphocytes/100 leukocytes 27 % 12-44 Blood monocytes/100 leukocytes 6 % 0-12 Automated blood eosinophils/100 leukocytes 3 % 0-10 Automated blood basophils/100 leukocytes 1 % 0-10 Blood neutrophils automated count (number/volume) 4.7 10*3 1.8-7.8 Blood lymphocytes automated count (number/volume) 2.0 10*3 1.0-4.0 Blood monocytes automated count (number/volume) 0. 5 10*3 0.0-1.0 Automated eosinophil count 0.3 10*3/uL 0 .0-0.3 Automated blood basophil count (count/volume) 0.1 10*3/uL 0.0-0.1 PT panel in platelet poor plasma by coag ulation assay - 04/14/19 13:55 Prothrombin time (PT) in platelet poor plasma by coagu lation assay 13.4 s 12.2-14.7 INR in platelet poor plasma or blood by coagulation as say 1.0 0.8-1.4 Activated partial thromboplastin time (a PTT) in platelet poor plasma bycoagulation assay - 04/14/19 13:55 Activated partial thromboplastin time (a PTT) in platelet poor plasma bycoagulation assay 30 s 24-35 Fibrin D-dimer FEU measurement in platel et poor plasma (mass/volume) - 04/14/19 13:55 Fibrin D-dimer FEU measurement in platelet poor plasma (mass/volume) 0.53 ug/mL 0.00-0.49 Comprehensive metabolic panel - 04/14/19 13:55 Serum or plasma sodium measurement (moles/volume) 141 mmol/L 135-145 Serum or plasma potassium measurement (moles/volume) 4.2 mmol/L 3.6-5.0 Serum or plasma chloride measurement (moles/volume) 105 mmol/L 98-107 Carbon dioxide 24 mmol/L 21-32 Serum or plasma anion gap determination (moles/volume) 12 mmol/L 5-14 Serum or plasma urea nitrogen measurement (mass/volume ) 15 mg/dL 7-18 Serum or plasma creatinine measurement (mass/volume) 1.08 mg/dL 0.60-1.30 Serum or plasma urea nitrogen/creatinine mass ratio 14 NRG Serum or plasma creatinine measurement w ith calculation of estimated glomerular filtration rate 53 NRG Serum or plasma glucose measurement (mass/volume) 157 mg/dL 70-105 Serum or plasma calcium measurement (mass/volume) 9.7 mg/dL 8.5-10.1 Serum or plasma total bilirubin measurement (mass/volu me) 0.2 mg/dL 0.1-1.0 Serum or plasma alkaline phosphatase alessandra surement (enzymatic activity/volume) 91 U/L 40-136 Serum or plasma aspartate aminotransfera se measurement (enzymatic activity/volume) 13 U/L 5-34 Serum or plasma alanine aminotransferase measurement (enzymatic activity/volume) 11 U/L 0-55 Serum or plasma protein measurement (mass/volume) 7.5 g/dL 6.4-8.2 Serum or plasma albumin measurement (mass/volume) 3.9 g/dL 3.2-4.5 CALCIUM CORRECTED 9.8 mg/dL 8.5-10.1 TROPONIN I FS - 04/14/19 13:55 TROPONIN I FS < 0.30 <0.30 PROBNP FS - 04/14/19 13:55 PROBNP FS 84.8 pg/mL <75.0 TROPONIN I FS - 04/14/19 16:55 TROPONIN I FS < 0.30 <0.30 MICROALBUMIN/CREATININE RATIO, URINE - 1 07/23/18 07:08 CREATININE, RANDOM URINE 98 mg/dL 20-27 5 MICROALBUMIN 0.5 mg/dL See Note: MICROALBUMIN/CREATININE RATIO, RANDOM URINE 5 mcg/ mg creat <30 CMP - 05/23/19 07:08 GLUCOSE 108 mg/dL 65-99 UREA NITROGEN (BUN) 17 mg/dL 7-25 CREATININE 1.23 mg/dL 0.50-1.05 eGFR NON-AFR. [place] 50 mL/min/1.73m2 > OR = 60 eGFR 58 mL/min/1.73m2 > OR = 60 BUN/CREATININE RATIO 14 (calc) 6-22 SODIUM 141 mmol/L 135-146 POTASSIUM 4.1 mmol/L 3.5-5.3 CHLORIDE 107 mmol/L 98-110 CARBON DIOXIDE 27 mmol/L 20-32 CALCIUM 8.6 mg/dL 8.6-10.4 PROTEIN, TOTAL 6.4 g/dL 6.1-8.1 ALBUMIN 3.5 g/dL 3.6-5.1 GLOBULIN 2.9 g/dL (calc) 1.9-3.7 ALBUMIN/GLOBULIN RATIO 1.2 (calc) 1.0-2. 5 BILIRUBIN, TOTAL 0.2 mg/dL 0.2-1.2 ALKALINE PHOSPHATASE 86 U/L 33-130 AST 9 U/L 10-35 ALT 9 U/L 6-29 CBC - 05/23/19 07:08 WHITE BLOOD CELL COUNT 7.8 Thousand/uL 3 .8-10.8 RED BLOOD CELL COUNT 3.89 Million/uL 3.8 0-5.10 HEMOGLOBIN 10.7 g/dL 11.7-15.5 HEMATOCRIT 33.9 % 35.0-45.0 MCV 87.1 fL 80.0-100.0 MCH 27.5 pg 27.0-33.0 MCHC 31.6 g/dL 32.0-36.0 RDW 17.6 % 11.0-15.0 PLATELET COUNT 232 Thousand/uL 140-400 MPV 10.4 fL 7.5-12.5 ABSOLUTE NEUTROPHILS 5421 cells/uL 1500- 7800 ABSOLUTE LYMPHOCYTES 1685 cells/uL 850-3 900 ABSOLUTE MONOCYTES 429 cells/uL 200-950 ABSOLUTE EOSINOPHILS 218 cells/uL 15-500 ABSOLUTE BASOPHILS 47 cells/uL 0-200 NEUTROPHILS 69.5 % NRG LYMPHOCYTES 21.6 % NRG MONOCYTES 5.5 % NRG EOSINOPHILS 2.8 % NRG BASOPHILS 0.6 % NRG A1C - 05/23/19 07:08 HEMOGLOBIN A1c 6.8 % of total Hgb <5.7 Capillary blood glucose measurement by g lucometer (mass/volume) - 06/02/19 09:14 Capillary blood glucose measurement by glucometer (mas s/volume) 69 mg/dL 70-110 Capillary blood glucose measurement by g lucometer (mass/volume) - 06/02/19 12:22 Capillary blood glucose measurement by glucometer (mas s/volume) 172 mg/dL 70-110 Complete urinalysis with reflex to cultu re - 06/12/19 21:10 Urine color determination YELLOW NRG Urine clarity determination CLEAR NR G Urine pH measurement by test strip 7.0 5-9 Specific gravity of urine by test strip <= 1.016-1.022 Urine protein assay by test strip, semi-quantitative NEGATIVE NEGATIVE Urine glucose detection by automated test strip NE GATIVE NEGATIVE Erythrocytes detection in urine sediment by light micr oscopy NEGATIVE NEGATIVE Urine ketones detection by automated test strip NE GATIVE NEGATIVE Urine nitrite detection by test strip NEGATIVE NEGATIVE Urine total bilirubin detection by test strip NEGA TIVE NEGATIVE Urine urobilinogen measurement by automated test strip (mass/volume) 0.2 mg/dL < = 1.0 Urine leukocyte esterase detection by dipstick NEG ATIVE NEGATIVE Automated urine sediment erythrocyte cou nt by microscopy (number/high power field) NONE NRG Automated urine sediment leukocyte count by microscopy (number/high power field) NONE NRG Bacteria detection in urine sediment by light microsco py TRACE NRG Squamous epithelial cells detection in u rine sediment by light microscopy 0-2 NRG Crystals detection in urine sediment by light microsco py NONE NRG Casts detection in urine sediment by light microscopy NONE NRG Mucus detection in urine sediment by light microscopy SMALL NRG Complete urinalysis with reflex to culture NO NRG Urine drug screening test - 06/12/19 21: 10 Urine phencyclidine detection by screening method NEGATIVE NEGATIVE Urine benzodiazepines detection by screening method NEGATIVE NEGATIVE Urine cocaine detection NEGATIVE NEGATI VE Urine amphetamines detection by screening method N EGATIVE NEGATIVE Urine methamphetamine detection by screening method NEGATIVE NEGATIVE Urine cannabinoids detection by screening method P OSITIVE NEGATIVE Urine opiates detection by screening method NEGATI VE NEGATIVE Urine barbiturates detection NEGATIVE N EGATIVE Screening urine tricyclic antidepressants detection NEGATIVE NEGATIVE Urine methadone detection by screening method NEGA TIVE NEGATIVE Urine oxycodone detection NEGATIVE NEGA TIVE Urine propoxyphene detection NEGATIVE N EGATIVE Complete blood count (CBC) with automate d white blood cell (WBC) differential - 06/12/19 21:38 Blood leukocytes automated count (number/volume) 9.2 10*3/uL 4.3-11.0 Blood erythrocytes automated count (number/volume) 4.38 10*6/uL 4.35-5.85 Venous blood hemoglobin measurement (mass/volume) 12.0 g/dL 11.5-16.0 Blood hematocrit (volume fraction) 39 % 35-52 Automated erythrocyte mean corpuscular volume 88 [ foz_us] 80-99 Automated erythrocyte mean corpuscular h emoglobin (mass per erythrocyte) 27 pg 25-34 Automated erythrocyte mean corpuscular h emoglobin concentration measurement (mass/volume) 31 g/dL 32-36 Automated erythrocyte distribution width ratio 17. 8 % 10.0- 14.5 Automated blood platelet count (count/volume) 246 10*3/uL 130-400 Automated blood platelet mean volume measurement 9.6 [foz_us] 7.4-10.4 Automated blood neutrophils/100 leukocytes 52 % 42-75 Automated blood lymphocytes/100 leukocytes 36 % 12-44 Blood monocytes/100 leukocytes 7 % 0-12 Automated blood eosinophils/100 leukocytes 4 % 0-10 Automated blood basophils/100 leukocytes 1 % 0-10 Blood neutrophils automated count (number/volume) 4.8 10*3 1.8-7.8 Blood lymphocytes automated count (number/volume) 3.3 10*3 1.0-4.0 Blood monocytes automated count (number/volume) 0. 6 10*3 0.0-1.0 Automated eosinophil count 0.3 10*3/uL 0 .0-0.3 Automated blood basophil count (count/volume) 0.1 10*3/uL 0.0-0.1 Comprehensive metabolic panel - 06/12/19 21:38 Serum or plasma sodium measurement (moles/volume) 139 mmol/L 135-145 Serum or plasma potassium measurement (moles/volume) 4.1 mmol/L 3.6-5.0 Serum or plasma chloride measurement (moles/volume) 102 mmol/L 98-107 Carbon dioxide 25 mmol/L 21-32 Serum or plasma anion gap determination (moles/volume) 12 mmol/L 5-14 Serum or plasma urea nitrogen measurement (mass/volume ) 14 mg/dL 7-18 Serum or plasma creatinine measurement (mass/volume) 1.12 mg/dL 0.60-1.30 Serum or plasma urea nitrogen/creatinine mass ratio 13 NRG Serum or plasma creatinine measurement w ith calculation of estimated glomerular filtration rate 51 NRG Serum or plasma glucose measurement (mass/volume) 93 mg/dL 70-105 Serum or plasma calcium measurement (mass/volume) 9.1 mg/dL 8.5-10.1 Serum or plasma total bilirubin measurement (mass/volu me) < mg/dL 0.1-1.0 Serum or plasma alkaline phosphatase alessandra surement (enzymatic activity/volume) 122 U/L 40-136 Serum or plasma aspartate aminotransfera se measurement (enzymatic activity/volume) 11 U/L 5-34 Serum or plasma alanine aminotransferase measurement (enzymatic activity/volume) 11 U/L 0-55 Serum or plasma protein measurement (mass/volume) 7.5 g/dL 6.4-8.2 Serum or plasma albumin measurement (mass/volume) 3.8 g/dL 3.2-4.5 CALCIUM CORRECTED 9.3 mg/dL 8.5-10.1 TROPONIN I FS - 06/12/19 21:38 TROPONIN I FS < 0.30 <0.30 Serum or plasma ethanol measurement (mas s/volume) - 06/12/19 21:38 Serum or plasma ethanol measurement (mass/volume) < mg/dL <10 Capillary blood glucose measurement by g lucometer (mass/volume) - 06/17/19 23:56 Capillary blood glucose measurement by glucometer (mas s/volume) 271 mg/dL 70-110 Capillary blood glucose measurement by g lucometer (mass/volume) - 06/21/19 15:43 Capillary blood glucose measurement by glucometer (mas s/volume) 397 mg/dL 70-110 Complete blood count (CBC) with automate d white blood cell (WBC) differential - 06/21/19 16:23 Blood leukocytes automated count (number/volume) 11.5 10*3/uL 4.3-11.0 Blood erythrocytes automated count (number/volume) 3.62 10*6/uL 4.35-5.85 Venous blood hemoglobin measurement (mass/volume) 9.9 g/dL 11.5-16.0 Blood hematocrit (volume fraction) 32 % 35-52 Automated erythrocyte mean corpuscular volume 89 [ foz_us] 80-99 Automated erythrocyte mean corpuscular h emoglobin (mass per erythrocyte) 27 pg 25-34 Automated erythrocyte mean corpuscular h emoglobin concentration measurement (mass/volume) 31 g/dL 32-36 Automated erythrocyte distribution width ratio 18. 2 % 10.0- 14.5 Automated blood platelet count (count/volume) 210 10*3/uL 130-400 Automated blood platelet mean volume measurement 10.0 [foz_us] 7.4-10.4 Automated blood neutrophils/100 leukocytes 87 % 42-75 Automated blood lymphocytes/100 leukocytes 10 % 12-44 Blood monocytes/100 leukocytes 3 % 0-12 Automated blood eosinophils/100 leukocytes 0 % 0-10 Automated blood basophils/100 leukocytes 0 % 0-10 Blood neutrophils automated count (number/volume) 10.0 10*3 1.8-7.8 Blood lymphocytes automated count (number/volume) 1.1 10*3 1.0-4.0 Blood monocytes automated count (number/volume) 0. 3 10*3 0.0-1.0 Automated eosinophil count 0.0 10*3/uL 0 .0-0.3 Automated blood basophil count (count/volume) 0.0 10*3/uL 0.0-0.1 Whole blood basic metabolic panel - 01/31 16:23 Serum or plasma sodium measurement (moles/volume) 133 mmol/L 135-145 Serum or plasma potassium measurement (moles/volume) 4.8 mmol/L 3.6-5.0 Serum or plasma chloride measurement (moles/volume) 96 mmol/L 98-107 Carbon dioxide 23 mmol/L 21-32 Serum or plasma anion gap determination (moles/volume) 14 mmol/L 5-14 Serum or plasma urea nitrogen measurement (mass/volume ) 21 mg/dL 7-18 Serum or plasma creatinine measurement (mass/volume) 1.21 mg/dL 0.60-1.30 Serum or plasma urea nitrogen/creatinine mass ratio 17 NRG Serum or plasma creatinine measurement w ith calculation of estimated glomerular filtration rate 47 NRG Serum or plasma glucose measurement (mass/volume) 447 mg/dL 70-105 Serum or plasma calcium measurement (mass/volume) 8.0 mg/dL 8.5-10.1 Manual absolute plasma cell count - 01/31 16:23 Blood monocytes/100 leukocytes 5 % NRG Manual blood segmented neutrophils/100 leukocytes 77 % NRG Blood band neutrophils/100 leukocytes 6 % NRG Manual blood lymphocytes/100 leukocytes 11 % NRG Manual eosinophils/100 leukocytes in nose 1 % NRG Blood polychromasia detection by light microscopy NA NRG Blood hypochromia detection by light microscopy SL IGHT NRG Capillary blood glucose measurement by g lucometer (mass/volume) - 06/21/19 17:53 Capillary blood glucose measurement by glucometer (mas s/volume) 385 mg/dL 70-110 Capillary blood glucose measurement by g lucometer (mass/volume) - 06/21/19 18:31 Capillary blood glucose measurement by glucometer (mas s/volume) 281 mg/dL 70-110 EKG - 06/30/19 17:17 EKG Complete Troponin I - 06/30/19 17:45 Troponin <0.020 ng/mL 0.0-0.4 Blood Culture - 06/30/19 17:45 PRELIM CULTURE RESULTS Blood Culture Negativ e, No Growth Day 1 FINAL CULTURE RESULTS Blood Culture Negative , No Growth Day 5 MEDIA PLATED Blood Culture Media Position A12 CULTURE SOURCE drawn @ RIGHT ARM Influenza - 06/30/19 17:50 Influenza NEGATIVE FOR A and B 0.00-0.0 0 Arterial Blood Gas - 06/30/19 18:15 Base 5.00 mmol/L 1.80-4.20 HCO3 29 mmol/L 20-31 O2 Sat 93 RM AIR % 95-100 pCO2 41 mm/Hg 35-45 pH 7.46 7.35-7.45 PO2 65 mm/Hg 80-95 Blood Culture - 06/30/19 18:17 PRELIM CULTURE RESULTS Blood Culture Negativ e, No Growth Day 1 FINAL CULTURE RESULTS Blood Culture Negative , No Growth Day 5 MEDIA PLATED Blood Culture Media Position A11 CULTURE SOURCE left wrist Comprehensive Metabolic Panel - 07/01/19 06:15 Albumin 3.8 g/dL 3.6-5.1 ALP 108 U/L 35-130 ALT 13 U/L 6-45 Anion Gap 21 6-14 AST 6 U/L 2-40 BUN 13 mg/dL 5-25 Calcium 9.5 mg/dL 8.3-10.4 Chloride 98 mmol/L 95-114 CO2 23 mEq/L 22-33 Creat 1.21 mg/dL 0.50-1.50 eGFR 47 mL/min/1.73m2 >59 Globulin 3.0 g/dL 2.3-3.5 Glucose 257 mg/dL 70-110 Osmo 291 280-295 Potassium 4.7 mmol/L 3.5-5.3 Sodium 137 mmol/L 134-148 TBil 0.2 mg/dL 0.2-1.2 TP 6.8 g/dL 6.0-8.3 Comprehensive Metabolic Panel - 07/02/19 05:20 Albumin 3.8 g/dL 3.6-5.1 ALP 103 U/L 35-130 ALT 12 U/L 6-45 Anion Gap 17 6-14 AST 5 U/L 2-40 BUN 18 mg/dL 5-25 Calcium 9.5 mg/dL 8.3-10.4 Chloride 97 mmol/L 95-114 CO2 27 mEq/L 22-33 Creat 1.26 mg/dL 0.50-1.50 eGFR 45 mL/min/1.73m2 >59 Globulin 3.0 g/dL 2.3-3.5 Glucose 307 mg/dL 70-110 Osmo 293 280-295 Potassium 4.9 mmol/L 3.5-5.3 Sodium 136 mmol/L 134-148 TBil 0.2 mg/dL 0.2-1.2 TP 6.8 g/dL 6.0-8.3 EKG - 07/02/19 05:35 EKG Complete Comprehensive Metabolic Panel - 07/03/19 04:00 Albumin 3.6 g/dL 3.6-5.1 ALP 108 U/L 35-130 ALT 11 U/L 6-45 Anion Gap 16 6-14 AST 5 U/L 2-40 BUN 22 mg/dL 5-25 Calcium 9.5 mg/dL 8.3-10.4 Chloride 96 mmol/L 95-114 CO2 31 mEq/L 22-33 Creat 1.36 mg/dL 0.50-1.50 eGFR 41 mL/min/1.73m2 >59 Globulin 2.8 g/dL 2.3-3.5 Glucose 361 mg/dL 70-110 Osmo 301 280-295 Potassium 4.9 mmol/L 3.5-5.3 Sodium 138 mmol/L 134-148 TBil 0.2 mg/dL 0.2-1.2 TP 6.4 g/dL 6.0-8.3 Comprehensive Metabolic Panel - 07/04/19 06:13 Albumin 3.7 g/dL 3.6-5.1 ALP 90 U/L 35-130 ALT 11 U/L 6-45 Anion Gap 17 6-14 AST 5 U/L 2-40 BUN 24 mg/dL 5-25 Calcium 9.3 mg/dL 8.3-10.4 Chloride 97 mmol/L 95-114 CO2 24 mEq/L 22-33 Creat 1.22 mg/dL 0.50-1.50 eGFR 46 mL/min/1.73m2 >59 Globulin 2.8 g/dL 2.3-3.5 Glucose 227 mg/dL 70-110 Osmo 287 280-295 Potassium 4.4 mmol/L 3.5-5.3 Sodium 134 mmol/L 134-148 TBil 0.2 mg/dL 0.2-1.2 TP 6.5 g/dL 6.0-8.3 Complete urinalysis with reflex to cultu re - 07/06/19 18:00 Urine color determination YELLOW NRG Urine clarity determination CLEAR NR G Urine pH measurement by test strip 6.0 5-9 Specific gravity of urine by test strip 1.010 1.016-1.022 Urine protein assay by test strip, semi-quantitative NEGATIVE NEGATIVE Urine glucose detection by automated test strip 3+ NEGATIVE Erythrocytes detection in urine sediment by light micr oscopy NEGATIVE NEGATIVE Urine ketones detection by automated test strip NE GATIVE NEGATIVE Urine nitrite detection by test strip NEGATIVE NEGATIVE Urine total bilirubin detection by test strip NEGA TIVE NEGATIVE Urine urobilinogen measurement by automated test strip (mass/volume) 0.2 mg/dL < = 1.0 Urine leukocyte esterase detection by dipstick NEG ATIVE NEGATIVE Automated urine sediment erythrocyte cou nt by microscopy (number/high power field) NONE NRG Automated urine sediment leukocyte count by microscopy (number/high power field) NONE NRG Bacteria detection in urine sediment by light microsco py NONE NRG Squamous epithelial cells detection in u rine sediment by light microscopy 0-2 NRG Crystals detection in urine sediment by light microsco py NONE NRG Casts detection in urine sediment by light microscopy NONE NRG Mucus detection in urine sediment by light microscopy NEGATIVE NRG Complete urinalysis with reflex to culture NO NRG Capillary blood glucose measurement by g lucometer (mass/volume) - 07/06/19 18:03 Capillary blood glucose measurement by glucometer (mas s/volume) 555 mg/dL 70-110 Complete blood count (CBC) with automate d white blood cell (WBC) differential - 07/06/19 18:10 Blood leukocytes automated count (number/volume) 14.4 10*3/uL 4.3-11.0 Blood erythrocytes automated count (number/volume) 4.18 10*6/uL 4.35-5.85 Venous blood hemoglobin measurement (mass/volume) 11.3 g/dL 11.5-16.0 Blood hematocrit (volume fraction) 37 % 35-52 Automated erythrocyte mean corpuscular volume 88 [ foz_us] 80-99 Automated erythrocyte mean corpuscular h emoglobin (mass per erythrocyte) 27 pg 25-34 Automated erythrocyte mean corpuscular h emoglobin concentration measurement (mass/volume) 31 g/dL 32-36 Automated erythrocyte distribution width ratio 18. 4 % 10.0- 14.5 Automated blood platelet count (count/volume) 246 10*3/uL 130-400 Automated blood platelet mean volume measurement 9.8 [foz_us] 7.4-10.4 Automated blood neutrophils/100 leukocytes 87 % 42-75 Automated blood lymphocytes/100 leukocytes 9 % 12-44 Blood monocytes/100 leukocytes 3 % 0-12 Automated blood eosinophils/100 leukocytes 0 % 0-10 Automated blood basophils/100 leukocytes 0 % 0-10 Blood neutrophils automated count (number/volume) 12.6 10*3 1.8-7.8 Blood lymphocytes automated count (number/volume) 1.3 10*3 1.0-4.0 Blood monocytes automated count (number/volume) 0. 4 10*3 0.0-1.0 Automated eosinophil count 0.0 10*3/uL 0 .0-0.3 Automated blood basophil count (count/volume) 0.0 10*3/uL 0.0-0.1 Manual absolute plasma cell count - 06/16 09/03 18:10 Blood monocytes/100 leukocytes 0 % NRG Manual blood segmented neutrophils/100 leukocytes 85 % NRG Blood band neutrophils/100 leukocytes 1 % NRG Manual blood lymphocytes/100 leukocytes 13 % NRG Manual eosinophils/100 leukocytes in nose 0 % NRG Manual blood basophils/100 leukocytes 0 % NRG Blood anisocytosis detection by light microscopy S LIGHT NRG Manual blood metamyelocytes/100 leukocytes 1 % NRG Whole blood basic metabolic panel - 06/16 09/03 18:10 Serum or plasma sodium measurement (moles/volume) 131 mmol/L 135-145 Serum or plasma potassium measurement (moles/volume) 3.9 mmol/L 3.6-5.0 Serum or plasma chloride measurement (moles/volume) 97 mmol/L 98-107 Carbon dioxide 22 mmol/L 21-32 Serum or plasma anion gap determination (moles/volume) 12 mmol/L 5-14 Serum or plasma urea nitrogen measurement (mass/volume ) 18 mg/dL 7-18 Serum or plasma creatinine measurement (mass/volume) 1.13 mg/dL 0.60-1.30 Serum or plasma urea nitrogen/creatinine mass ratio 16 NRG Serum or plasma creatinine measurement w ith calculation of estimated glomerular filtration rate 51 NRG Serum or plasma glucose measurement (mass/volume) 525 mg/dL 70-105 Serum or plasma calcium measurement (mass/volume) 8.3 mg/dL 8.5-10.1 Arterial blood gas measurement - 9 18:25 Blood pCO2 34 mm[Hg] 35-45 Blood pO2 63 mm[Hg] 79-93 Arterial blood bicarbonate measurement (moles/volume) 26 mmol/L 23-27 Arterial blood base excess by calculation 2.8 mmol /L -2.5-2.5 Arterial blood oxygen saturation measurement 94 % 94-100 * Inhaled oxygen flow rate ROOM AIR NRG Arterial blood pH measurement with patient temperature correction 7.49 7.37-7.43 Arterial blood carbon dioxide, total measurement (mole s/volume) 26.9 mmol/L 21.0-31.0 Body site LT RAD NRG Assessment of wrist artery patency prior to arterial p uncture YES-POS NRG Setting of ventilation mode NO NR G Measurement of body temperature 36.0 NRG Capillary blood glucose measurement by g lucometer (mass/volume) - 07/06/19 19:16 Capillary blood glucose measurement by glucometer (mas s/volume) 372 mg/dL 70-110 Capillary blood glucose measurement by g lucometer (mass/volume) - 07/06/19 20:09 Capillary blood glucose measurement by glucometer (mas s/volume) 242 mg/dL 70-110 Encounters ACCT No. Visit Date/Time Discharge Status Pt. Type Provider Facility Loc./Unit Complaint [id number] 10/30/2018 17:22:00 Document Registration [id number] 10/30/2018 17:22:00 Document Registration [email or web address] 04/26/2019 03:58:14 ACT Document Registration [id number] 04/22/2019 09:41:02 ACT Unknown Halle Sahni MD [id number] 07/06/2019 17:56:00 20:32:00 DIS Emergency BASS DEBBIE BLANCA L [facility] ER FS HIGH BLOOD SUGAR [id number] 06/27/2019 21:51:00 22:23:00 DIS Outpatient ROVENSTINE EDNA BLANCA L [facility] ER FS SOB,N,V [id number] 06/21/2019 15:26:00 18:47:00 DIS Outpatient MARK BOJORQUEZ MD [facility] ER FS BLOOD SUGAR 415; SOB [id number] 06/17/2019 23:44:00 00:22:00 DIS Emergency MAKSIM RICCI MD [facility] ER FS SORE THROAT [id number] 06/12/2019 20:58:00 00:00:00 DIS Emergency JAZIEL WONG DO [facility] ER FS PSYCH EVAL [id number] 06/02/2019 08:49:00 12:33:00 DIS Outpatient MIKAYLA DE LOS SANTOS DO [facility] ENDO HX POLYPS [id number] 05/06/2019 13:20:00 13:25:00 DIS Outpatient MIKAYLA DE LOS SANTOS DO [facility] PREOP COLONOSCOPY [id number] 04/14/2019 13:32:00 17:50:00 DIS Emergency LUCÍA FUENTES MD [facility] ER FS SOB; CHEST PAIN [id number] 03/24/2019 10:00:00 12:45:00 DIS Outpatient MIKAYLA DE LOS SANTOS DO [facility] ENDO SCREENING [id number] 03/22/2019 20:27:00 21:50:00 DIS Emergency KALI BLANCA DEBBIE L [facility] ER FS SOA [id number] 03/18/2019 05:38:00 23:59:59 CLS Outpatient MIKAYLA DE LOS SANTOS DO [facility] PREOP COLONOSCOPY [id number] 03/07/2019 21:51:00 22:35:00 DIS Emergency RABIA WILKS MD [facility] ER FS PANIC ATTACK [id number] 01/11/2019 15:06:00 17:55:00 DIS Emergency BASS DO DEBBIE L [facility] ER FS PT STATES SHE NEEDS A M ENTAL HEALTH SCREENING [id number] 01/10/2019 19:58:00 21:53:00 DIS Emergency DIANE DELCID MD [facility] ER FS SEVERE RT SIDE ABD PAIN ;SOB [id number] 01/08/2019 17:11:00 20:40:00 DIS Emergency POLA WEBB DO [facility] ER FS CHEST PAIN, SOB [id number] 01/06/2019 21:51:00 01:32:00 DIS Emergency POLA WEBB DO [facility] ER FS MENTAL HEALTH EVAL [id number] 01/05/2019 19:25:00 20:17:00 DIS Emergency TARIK GEORGE DO [facility] ER FS RIGHT SIDE PAIN [id number] 01/04/2019 19:17:00 21:13:00 DIS Emergency JAZIEL WONG DO [facility] ER FS RIGHT SIDE PAIN [id number] 01/02/2019 04:59:00 05:55:00 DIS Emergency JAZIEL WONG DO [facility] ER FS RIGHT SIDE PAIN [id number] 12/21/2018 17:59:00 19:50:00 DIS Emergency DIANE DELCID MD [facility] ER FS SOB,VAGINAL PAIN [id number] 12/14/2018 14:21:00 16:45:00 DIS Emergency GINA BATEMAN, LUCÍA Serrato [facility] ER FS ABD PAIN,VAGINAL PAIN F ROM CATHETER [id number] 12/12/2018 13:47:00 23:59:59 CLS Outpatient JERI BATEMAN, MANASA Funes [facility] RAD FS R10.84 GEN ABD PAIN [id number] 11/29/2018 08:34:00 16:55:00 DIS Emergency DIANE DELCID MD [facility] ER FS URINARY RETENTION [id number] 11/14/2018 21:43:00 23:23:00 DIS Emergency DANIEL HERNANDEZ MD [facility] ER FS BLOOD SUGAR ISSUES [id number] 11/06/2018 17:40:00 01:30:00 DIS Emergency JAME CULVER DO [facility] ER FS SOB,CHEST PAIN [id number] 10/30/2018 20:30:00 00:33:00 DIS Emergency DIANE DELCID MD [facility] ER FS SOB, HIGH BLOOD SUGAR, ABD SORE [id number] 10/16/2018 22:53:00 00:25:00 DIS Emergency DIANE DELCID MD [facility] ER FS CHEST PAINS [id number] 10/13/2018 17:02:00 20:45:00 DIS Emergency MARY BATEMAN, DANIEL de dios [facility] ER FS CHEST PAIN,SOB [id number] 09/18/2018 20:56:00 07:30:00 DIS Emergency NOEL DICK DO [facility] ER FS HIGH BLOOD SUGAR, SOB [id number] 09/12/2018 14:20:00 15:56:00 DIS Emergency DANIEL HERNANDEZ MD [facility] ER FS FALL; RT HIP/MI WRIST INJ [id number] 12/24/2018 10:40:00 9 23:59:59 DIS Outpatient LINDA SAHNI [facility] RAD [id number] 08/26/2018 07:22:56 9 23:59:59 DIS Outpatient DANAY SORIA V [facility] LAB [id number] 05/30/2018 08:41:17 8 23:59:59 DIS Outpatient LINDA SAHNI [facility] RAD [id number] 04/25/2018 12:24:37 8 23:59:59 CLS Preadmit LINDA SAHNI [facility] Surgery ops [id number] 04/02/2019 11:54:39 Document Registration [id number] 11/13/2018 14:34:59 Document Registration [id number] 08/06/2018 13:35:03 Document Registration [id number] 07/05/2018 09:35:35 ACT V AMADOU ROBERT [facility] [place] MS [id number] 06/18/2018 06:13:13 Inpatient LINDA SAHNI [facility] CHRISTOPHER MS ops [id number] 06/30/2019 16:00:00 07/04/2019 10:30 :00 DIS Inpatient Lianna Davis enter ICU [id number] 06/30/2019 17:27:54 Document Registration [id number] 06/30/2019 14:00:00 06/30/2019 23:59: 59 CLS Outpatient MANASA WILCOX [facility] [id number] 05/23/2019 07:00:00 Document Registration [id number] 01/30/2019 09:40:00 Document Registration [id number] 12/30/2018 16:30:00 Document Registration [id number] 12/30/2018 14:39:00 Document Registration [id number] 12/18/2018 12:00:00 Document Registration [id number] 10/07/2018 13:15:00 Document Registration [id number] 09/25/2018 09:45:00 Document Registration [id number] 04/14/2014 08:59:00 04/14/2014 11:05: 00 DIS Outpatient HEATHER IRVIN APRN [id number] 02/10/2014 09:57:00 02/10/2014 23:59: 59 CLS Outpatient HEATHER IRVIN APRN [id number] 02/10/2014 09:57:00 02/10/2014 23:59: 59 CLS Outpatient HEATHER IRVIN APRN [id number] 12/12/2013 10:38:00 12/12/2013 23:59: 59 CLS Outpatient HEATHER IRVIN APRN [id number] 10/07/2013 14:37:00 10/13/2013 20:05: 00 DIS Outpatient HEATHER IRVIN APRN [id number] 10/07/2013 14:37:00 10/07/2013 23:59: 59 CLS Outpatient HEATHER IRVIN APRN [id number] 08/11/2013 10:11:00 08/11/2013 13:49: 00 DIS Outpatient HEATHER IRVIN APRN [id number] 05/08/2013 09:56:00 05/08/2013 23:59:5 9 CLS Outpatient MARIANNA FAUST APRN [id number] 01/08/2013 08:25:00 01/08/2013 23:59:5 9 CLS Outpatient MARIANNA FAUST APRN [id number] 10/15/2014 15:34:45 10/15/2014 23: 59:00 DIS Outpatient SONY CAMPO [facility] [id number] 08/12/2014 12:31:00 08/12/2014 14: 34:00 DIS Emergency [facility] [id number] 06/21/2014 16:47:00 06/21/2014 17: 52:00 DIS Emergency [facility] [id number] 09/02/2014 00:00:00 Document Registration
== END 2019-06-18 00:22 | disposition home or self-care (01) ==
LOC: EDUNIT# 23:42 → ER FS 23:44
DX: F41.9 Anxiety disorder, unspecified (principal); J45.909 Unspecified asthma, uncomplicated; I10 Essential (primary) hypertension; E11.9 Type 2 diabetes mellitus without complications; B19.20 Unspecified viral hepatitis C without hepatic coma; Z85.528 Personal history of other malignant neoplasm of kidney; Z87.442 Personal history of urinary calculi; Z79.84 Long term (current) use of oral hypoglycemic drugs; Z77.22 Contact with and (suspected) exposure to environmental tobacco smoke (acute) (chronic); Z90.710 Acquired absence of both cervix and uterus; Z90.5 Acquired absence of kidney; Z90.89 Acquired absence of other organs; Z98.51 Tubal ligation status
CPT/HCPCS: 82962; 99285

== ENCOUNTER 2019-06-21 15:24 | Emergency (ER) | payer MEDICARE, MEDICAID ==
[~2019-06-21] VITALS: Ht 174.6 cm; Wt 112.4 kg
[2019-06-21] MEDS ORDERED: inSUlin (REGULAR) HUMAN 1 UNIT/0.01 ML (CHARGE PER UNIT) SC ONE (16:00)
[2019-06-21] MEDS ORDERED: NS IV 1000 ML 1,000 ML IV SCH (16:30)
[2019-06-21] MEDS ORDERED: RT-ALBUTEROL/IPRATROPIUM 3 ML (DUONEB) VIAL INH ONE (16:30)
--- NOTE | 2019-06-21 16:30 | ED General ---
General Chief Complaint: Respiratory Problems Stated Complaint: BLOOD SUGAR 415; SOB History of Present Illness Date Seen by Provider: Jun 21, 2019 Time Seen by Provider: 16:25 Initial Comments 54 yo female insulin-dependent diabetic with an insulin pump has COPD and a variety of psych diagnoses including anxiety Has had prior urinary tract malignancy still smokes 11 - had a chest x-ray that was clear has been on Levaquin and tapering prednisone complains today of shortness of breath and she has laryngitis, losing her voice and she noted her sugars near 400 is concerned about these things does not appear to be in any resp distress Allergies and Home Medications Allergies Coded Allergies: No Known Drug Allergies (Unverified , 05/06/19) Home Medications Atorvastatin Calcium 10 Mg Tablet, 10 MG PO HS, (Reported) Escitalopram Oxalate 10 Mg Tablet, 10 MG PO DAILY, (Reported) Ibuprofen 800 Mg Tablet, 800 MG PO Q8H PRN for PAIN-MILD, (Reported) Linagliptin 5 Mg Tablet, 5 MG PO DAILY, (Reported) Lisinopril 5 Mg Tablet, 5 MG PO DAILY, (Reported) Metformin HCl 750 Mg Tab.er.24h, 1,500 MG PO HS, (Reported) Nebivolol HCl 10 Mg Tab, 10 MG PO DAILY, (Reported) Olanzapine 10 Mg Tablet, 10 MG PO HS, (Reported) Tramadol HCl 50 Mg Tablet, 50 MG PO PRN, (Reported) Ziprasidone 80 Mg Cap, 160 MG PO HS, (Reported) Patient Home Medication List Home Medication List Reviewed: Yes Review of Systems Review of Systems Constitutional: No fever EENTM: no symptoms reported Respiratory: short of breath Cardiovascular: no symptoms reported Gastrointestinal: no symptoms reported Genitourinary: no symptoms reported Musculoskeletal: no symptoms reported Past Bdgrcyz-Xzjrvs-Gpytwv Hx Patient Social History Drug of Choice: marijuana Type Used: Cigarettes 2nd Hand Smoke Exposure: Yes Recent Hopitalizations: No Seasonal Allergies Seasonal Allergies: No Past Medical History Surgeries: Yes Abdominal, Hysterectomy, Nephrectomy, Tonsillectomy, Tubal Ligation Respiratory: Yes Asthma Currently Using CPAP: No Currently Using BIPAP: No Cardiac: Yes Hypertension 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 has multiple lesions on her abd and under the folds.) Blood Disorders: Yes (HEP C) Adverse Reaction/Blood Tranf: No Physical Exam Vital Signs Vital Signs - First Documented 06/21/19 15:35 Temp 36.0 Pulse 95 Resp 24 B/P (MAP) 104/74 (84) Pulse Ox 94 O2 Delivery Room Air Capillary Refill : Height, Weight, BMI Height: 5'7.00" Weight: 224lbs. 0.0oz. 101.570644lm; 37.00 BMI Method:Actual General Appearance: No Apparent Distress, Anxious Eyes: Bilateral Eye PERRL, Bilateral Eye EOMI HEENT: TMs Normal, Pharynx Normal, Other (vice consisent with laryngitis mild) Neck: Non Tender, Supple Respiratory: Normal Breath Sounds, No Accessory Muscle Use, No Respiratory Distress Cardiovascular: Regular Rate, Rhythm Gastrointestinal: Normal Bowel Sounds, Non Tender, Soft Extremity: No Pedal Edema Progress/Results/Core Measures Suspected Sepsis SIRS Temperature: Pulse: Respiratory Rate: Laboratory Tests 06/21/19 16:23: White Blood Count 11.5H Blood Pressure / Mean: Laboratory Tests 06/21/19 16:23: Creatinine 1.21, Platelet Count 210 Results/Orders Lab Results Laboratory Tests Test 06/21/19 15:43 06/21/19 16:23 06/21/19 17:53 Range/Units Glucometer 397 H 385 H 70-110 MG/DL White Blood Count 11.5 H 4.3-11.0 10^3/uL Red Blood Count 3.62 L 4.35-5.85 10^6/uL Hemoglobin 9.9 L 11.5-16.0 G/DL Hematocrit 32 L 35-52 % Mean Corpuscular Volume 89 80-99 FL Mean Corpuscular Hemoglobin 27 25-34 PG Mean Corpuscular Hemoglobin Concent 31 L 32-36 G/DL Red Cell Distribution Width 18.2 H 10.0-14.5 % Platelet Count 210 130-400 10^3/uL Mean Platelet Volume 10.0 7.4-10.4 FL Neutrophils (%) (Auto) 87 H 42-75 % Lymphocytes (%) (Auto) 10 L 12-44 % Monocytes (%) (Auto) 3 0-12 % Eosinophils (%) (Auto) 0 0-10 % Basophils (%) (Auto) 0 0-10 % Neutrophils # (Auto) 10.0 H 1.8-7.8 X 10^3 Lymphocytes # (Auto) 1.1 1.0-4.0 X 10^3 Monocytes # (Auto) 0.3 0.0-1.0 X 10^3 Eosinophils # (Auto) 0.0 0.0-0.3 10^3/uL Basophils # (Auto) 0.0 0.0-0.1 10^3/uL Neutrophils % (Manual) 77 % Lymphocytes % (Manual) 11 % Monocytes % (Manual) 5 % Eosinophils % (Manual) 1 % Band Neutrophils 6 % Polychromasia NA Hypochromasia SLIGHT Sodium Level 133 L 135-145 MMOL/L Potassium Level 4.8 3.6-5.0 MMOL/L Chloride Level 96 L 98-107 MMOL/L Carbon Dioxide Level 23 21-32 MMOL/L Anion Gap 14 5-14 MMOL/L Blood Urea Nitrogen 21 H 7-18 MG/DL Creatinine 1.21 0.60-1.30 MG/DL Estimat Glomerular Filtration Rate 47 BUN/Creatinine Ratio 17 Glucose Level 447 *H 70-105 MG/DL Calcium Level 8.0 L 8.5-10.1 MG/DL My Orders Orders - MARK BOJORQUEZ MD Iv Heplock-Insert (Order) (06/21/19 15:54) Insulin (Regular) Human (Humulin R (Per (06/21/19 16:00) Chest Pa/Lat (2 View) (06/21/19 16:21) Albuterol/Ipra Inhalation Soln (Duoneb I (06/21/19 16:30) Svn Small Volume Nebulizer (06/21/19 16:21) Cbc With Automated Diff (06/21/19 16:21) Basic Metabolic Panel (06/21/19 16:21) Ns Iv 1000 Ml (Sodium Chloride 0.9%) (06/21/19 16:30) Manual Differential (06/21/19 16:23) Ondansetron Injection (Zofran Injectio (06/21/19 17:15) Accucheck Stat ONCE (06/21/19 17:46) Insulin (Regular) Human (Humulin R (Per (06/21/19 18:00) Accucheck Stat ONCE (06/21/19 18:31) Medications Given in ED Current Medications Medications Dose Ordered Sig/Yoselyn Route Start Time Stop Time Status Last Admin Dose Admin Albuterol/ Ipratropium 3 ml ONCE ONCE INH 06/21/19 16:30 06/21/19 16:31 DC 06/21/19 16:44 3 ML Insulin Human Regular 10 unit ONCE ONCE IV 06/21/19 18:00 06/21/19 18:01 DC 06/21/19 18:05 10 UNIT Insulin Human Regular 10 unit ONCE ONCE SC 06/21/19 16:00 06/21/19 16:01 DC 06/21/19 16:44 10 UNIT Ondansetron HCl 4 mg ONCE ONCE IVP 06/21/19 17:15 06/21/19 17:16 DC 06/21/19 17:25 4 MG Vital Signs/I&O 06/21/19 15:35 Temp 36.0 Pulse 95 Resp 24 B/P (MAP) 104/74 (84) Pulse Ox 94 O2 Delivery Room Air Capillary Refill : Progress Note : Progress Note pt felt better after RT's and IV fluids finally got glucose <300 doesn't need any Rx's still on levaquin and predisone has all inhalers etc. Diagnostic Imaging Comments chest x-ray shows increased bronchial markings no infiltrate or consolidation port remains intact and appropriately positioned Departure Impression Primary Impression: Bronchitis Additional Impression: Hyperglycemia Disposition: 01 HOME, SELF-CARE Condition: Improved Departure-Patient Inst. Decision time for Depature: 18:36 Referrals: MANASA WILCOX MD (PCP/Family) Primary Care Physician Patient Instructions: Acute Bronchitis, Adult (DC), Hyperglycemia, Adult MARK BOJORQUEZ MD Jun 21, 2019 16:30 POS
--- NOTE | 2019-06-21 16:48 | Diagnostic Imaging Report ---
EXAMINATION: Chest 2 views. HISTORY: Shortness of breath. Cough. COMPARISON: 06/12/2019 FINDINGS: A left port is visualized with the tip overlying the mid SVC. The lung volumes are normal. No focal consolidation is seen. Mildly prominent interstitial markings are seen in the perihilar and basilar regions. No large pleural effusion or pneumothorax is seen. The cardiomediastinal silhouette is normal in size and contour. No acute osseous abnormality is seen. IMPRESSION: 1. Mildly prominent perihilar and basilar opacities, which may represent bronchitis/bronchiolitis. No focal consolidations. 2. Stable configuration of a left port. Dictated by: Dictated on workstation # [id number]
[2019-06-21 16:54] LABS: HEMATOCRIT 32 % (35-52); HEMOGLOBIN 9.9 G/DL (11.5-16.0); MEAN CORPUSCULAR HEMOGLOBIN 27 PG (25-34); MEAN CORPUSCULAR HGB CONC 31 G/DL (32-36); MEAN CORPUSCULAR VOLUME 89 FL (80-99); RED CELL DISTRIBUTION WIDTH 18.2 % (10.0-14.5); WHITE BLOOD COUNT 11.5 10^3/uL (4.3-11.0)
[2019-06-21 16:55] LABS: BASOPHILS % (AUTO) 0 % (0-10); EOSINOPHILS % (AUTO) 0 % (0-10); LYMPHOCYTES # (AUTO) 1.1 X 10^3 (1.0-4.0); LYMPHOCYTES % (AUTO) 10 % (12-44); MONOCYTES % (AUTO) 3 % (0-12); PLATELET COUNT 210 10^3/uL (130-400)
[2019-06-21 16:56] LABS: MONOCYTES # (AUTO) 0.3 X 10^3 (0.0-1.0); NEUTROPHILS % (AUTO) 87 % (42-75); POTASSIUM 4.8 MMOL/L (3.6-5.0)
[2019-06-21 16:57] LABS: CREATININE SERUM 1.21 MG/DL (0.60-1.30)
[2019-06-21] MEDS ORDERED: ONDANSETRON 4 MG/2 ML (SDV) Z0FRAN IVP ONE (17:15)
[2019-06-21 17:43] LABS: BAND NEUTROPHILS 6 %; EOSINOPHILS % (MANUAL) 1 %; LYMPHOCYTES % (MANUAL) 11 %; MONOCYTES % (MANUAL) 5 %; NEUTROPHILS % (MANUAL) 77 %
[2019-06-21 17:44] LABS: HYPOCHROMASIA SLIGHT
[2019-06-21] MEDS ORDERED: inSUlin (REGULAR) HUMAN 1 UNIT/0.01 ML (CHARGE PER UNIT) IV ONE (18:00)
[2019-06-21 18:47] VITALS: BP 121/66
--- OUTSIDE RECORDS SUMMARY | 2019-07-17 13:03 | XMS REPORT | Continuity of Care Document ---
Demographics Preferred Language Unknown Marital Status Unknown Scientology Affiliation Unknown Race Unknown Ethnic Group Unknown Author Organization Unknown Address Unknown Phone Unavailable Allergies Active Description Code Type Severity Reaction Onset Reported/Identified Relationship to Patient Clinical Status Yes No Known Medication Allergies Drug N/A N/A Yes NO KNOWN DRUG ALLERGIES UNKNOWN UNKNOWN Yes No Known Drug Allergies [id number] Drug Allergy Unknown N/A 05/06/2019 Medications Medication [...] IRVIN APRN V15 .82 TOBACCOISM 07/05/2010 [facility] [employer] SERVICE ATTENDANT, HEATHER 278 .01 OBESITY MORBID 07/05/2010 [employer] FOOD SERVICE ATTENDANT, HEATHER 380 .10 Infective Otitis Externa, Unspecified 07/05/2010 [employer] FOOD SERVICE ATTENDANT, HEATHER V15 .82 TOBACCOISM 07/05/2010 [facility] FOOD SERVICE ATTENDANT, HEATHER 278 .01 OBESITY MORBID 07/05/2010 [facility] FOOD SERVICE ATTENDANT, HEATHER 380 .10 Infective Otitis Externa, Unspecified 07/05/2010 [facility] FOOD SERVICE ATTENDANT, HEATHER V15 .82 TOBACCOISM 07/05/2010 [facility] FOOD SERVICE ATTENDANT, HEATHER 278 .01 OBESITY MORBID 07/05/2010 [facility] FOOD SERVICE ATTENDANT, HEATHER 380 .10 Infective Otitis Externa, Unspecified 07/05/2010 [facility] FOOD SERVICE ATTENDANT, HEATHER V15 .82 TOBACCOISM 07/05/2010 [facility] FOOD SERVICE ATTENDANT, HEATHER 278 .01 OBESITY MORBID 07/05/2010 [facility] FOOD SERVICE ATTENDANT, HEATHER 380 .10 Infective Otitis Externa, Unspecified 07/05/2010 [facility] FOOD SERVICE ATTENDANT, HEATHER V15 .82 TOBACCOISM 07/05/2010 [employer] FO[employer] SERVICE ATTENDANT, MARIANNA 278.01 OBESITY MORBID 07/05/2010 [employer] FOOD SERVICE ATTENDANT, MARIANNA 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, Unspecified 07/05/2010 [employer] FOOD SERVICE ATTENDANT, MARIANNA V15.82 TOBACCOISM 07/05/2010 [employer] FOOD SERVICE ATTENDANT, MARIANNA 278.01 OBESITY MORBID 07/05/2010 [employer] FOOD SERVICE ATTENDANT, MARIANNA 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, Unspecified 07/05/2010 [employer] FOOD SERVICE ATTENDANT, MARIANNA V15.82 TOBACCOISM 07/07/2010 [employer] [employer] SERVICE ATTENDANT, HEATHER 280 .9 Anemia Hypochromic / Microcytic 07/07/2010 [employer] SERVICE ATTENDANT, HEATHER 796 .2 Prehypertension 07/07/2010 [employer] SERVICE ATTENDANT, HEATHER V04 .81 Influenza Vaccine 07/07/2010 [employer] SERVICE ATTENDANT, HEATHER V68 .89 Encounters For Other Specified Administrative Purpose 07/07/2010 [employer] SERVICE ATTENDANT, HEATHER V72 .31 Routine Pelvic Exam 07/07/2010 [employer] SERVICE ATTENDANT, HEATHER 280 .9 Anemia Hypochromic / Microcytic 07/07/2010 [employer] SERVICE ATTENDANT, HEATHER 796 .2 Prehypertension 07/07/2010 [facility] FOOD SERVICE ATTENDANT, HEATHER V04 .81 Influenza Vaccine 07/07/2010 [facility] FOOD SERVICE ATTENDANT, HEATHER V68 .89 Encounters For Other Specified Administrative Purpose 07/07/2010 [facility] FOOD SERVICE ATTENDANT, HEATHER V72 .31 Routine Pelvic Exam 07/07/2010 [facility] FOOD SERVICE ATTENDANT, HEATHER 280 .9 Anemia Hypochromic / Microcytic 07/07/2010 [facility] FO[employer] SERVICE ATTENDANT, HEATHER 796 .2 Prehypertension 07/07/2010 [facility] FO[employer] SERVICE ATTENDANT, HEATHER V04 .81 Influenza Vaccine 07/07/2010 [facility] FO[employer] SERVICE ATTENDANT, HEATHER V68 .89 Encounters For Other Specified Administrative Purpose 07/07/2010 [facility] FOOD SERVICE ATTENDANT, HEATHER V72 .31 Routine Pelvic Exam 07/07/2010 [facility] FO[employer] SERVICE ATTENDANT, HEATHER 280 .9 Anemia Hypochromic / Microcytic 07/07/2010 [facility] FOOD SERVICE ATTENDANT, HEATHER 796 .2 Prehypertension 07/07/2010 [facility] FOOD SERVICE ATTENDANT, HEATHER V04 .81 Influenza Vaccine 07/07/2010 [facility] FOOD SERVICE ATTENDANT, HEATHER V68 .89 Encounters For Other Specified Administrative Purpose 07/07/2010 [facility] FOOD SERVICE ATTENDANT, HEATHER V72 .31 Routine Pelvic Exam 07/07/2010 [facility] FOOD SERVICE ATTENDANT, HEATHER 280 .9 Anemia Hypochromic / Microcytic 07/07/2010 [facility] FO[employer] SERVICE ATTENDANT, HEATHER 796 .2 Prehypertension 07/07/2010 [facility] FOOD SERVICE ATTENDANT, HEATHER V04 .81 Influenza Vaccine 07/07/2010 [facility] FO[employer] SERVICE ATTENDANT, HEATHER V68 .89 Encounters For Other Specified Administrative Purpose 07/07/2010 [facility] FOOD SERVICE ATTENDANT, HEATHER V72 .31 Routine Pelvic Exam 07/07/2010 [facility] FOOD SERVICE ATTENDANT, HEATHER 280 .9 Anemia Hypochromic / Microcytic 07/07/2010 [facility] FO[employer] SERVICE ATTENDANT, HEATHER 796 .2 Prehypertension 07/07/2010 [facility] FO[employer] SERVICE ATTENDANT, HEATHER V04 .81 Influenza Vaccine 07/07/2010 [facility] FOOD SERVICE ATTENDANT, HEATHER V68 .89 Encounters For Other Specified Administrative Purpose 07/07/2010 [facility] FOOD SERVICE ATTENDANT, HEATHER V72 .31 Routine Pelvic Exam 07/07/2010 [facility] FOOD SERVICE ATTENDANT, HEATHER 280 .9 Anemia Hypochromic / Microcytic 07/07/2010 [facility] FO[employer] SERVICE ATTENDANT, HEATHER 796 .2 Prehypertension 07/07/2010 [facility] FOOD SERVICE ATTENDANT, HEATHER V04 .81 Influenza Vaccine 07/07/2010 [facility] FOOD SERVICE ATTENDANT, HEATHER V68 .89 Encounters For Other Specified Administrative Purpose 07/07/2010 [facility] FOOD SERVICE ATTENDANT, HEATHER V72 .31 Routine Pelvic Exam 07/07/2010 [employer] FO[employer] SERVICE ATTENDANT MARIANNA 28 0.9 Anemia Hypochromic / Microcytic 07/07/2010 [employer] FOOD SERVICE ATTENDANT MARIANNA 79 6.2 Prehypertension 07/07/2010 [employer] FO[employer] SERVICE ATTENDANT MARIANNA V04.81 Influenza Vaccine 07/07/2010 [employer] FO[employer] SERVICE ATTENDANT MARIANNA V68.89 Encounters For Other Specified Administrative Purpose 07/07/2010 G[employer]IND FOOD SERVICE ATTENDANTENE V72.31 Routine Pelvic Exam 07/07/2010 GOVIND FOOD SERVICE ATTENDANTSOFYAMARIANNA 28 0.9 Anemia Hypochromic / Microcytic 07/07/2010 G[employer] FOOD SERVICE ATTENDANTENE 79 6.2 Prehypertension 07/07/2010 [employer] FOOD SERVICE ATTENDANT MARIANNA V04.81 Influenza Vaccine 07/07/2010 [employer] FOOD SERVICE ATTENDANT MARIANNA V68.89 Encounters For Other Specified Administrative Purpose 07/07/2010 [employer] FO[employer] SERVICE ATTENDANT MARIANNA V72.31 Routine Pelvic Exam 10/20/2010 [facility] FOOD SERVICE ATTENDANT, HEATHER 112 .1 Candidiasis, Of Vulva And Vagina 10/20/2010 [facility] FOOD SERVICE ATTENDANT, HEATHER 599 .0 Uti 10/20/2010 [facility] FOOD SERVICE ATTENDANT, HEATHER 112 .1 Candidiasis, Of Vulva And Vagina 10/20/2010 [facility] FOOD SERVICE ATTENDANT, HEATHER 599 .0 Uti 10/20/2010 [facility] FOOD SERVICE ATTENDANT, HEATHER 112 .1 Candidiasis, Of Vulva And Vagina 10/20/2010 [facility] [employer] SERVICE ATTENDANT, HEATHER 599 .0 Uti 10/20/2010 [facility] FOOD SERVICE ATTENDANT, HEATHER 112 .1 Candidiasis, Of Vulva And Vagina 10/20/2010 [facility] FOOD SERVICE ATTENDANT, HEATHER 599 .0 Uti 10/20/2010 [facility] FOOD SERVICE ATTENDANT, HEATHER 112 .1 Candidiasis, Of Vulva And Vagina 10/20/2010 [facility] FO[employer] SERVICE ATTENDANT, HEATHER 599 .0 Uti 10/20/2010 [facility] FOOD SERVICE ATTENDANT, HEATHER 112 .1 Candidiasis, Of Vulva And Vagina 10/20/2010 [employer] FOOD SERVICE ATTENDANT, HEATHER 599 .0 Uti 10/20/2010 [facility] FOOD SERVICE ATTENDANT, HEATHER 112 .1 Candidiasis, Of Vulva And Vagina 10/20/2010 [employer] FOOD SERVICE ATTENDANT, HEATHER 599 .0 Uti 10/20/2010 [employer] FOOD SERVICE ATTENDANT, MARIANNA 11 2.1 Candidiasis, Of Vulva And Vagina 10/20/2010 [employer] FOOD SERVICE ATTENDANT, MARIANNA 59 9.0 Uti 10/20/2010 [employer] FOOD SERVICE ATTENDANT, MARIANNA 11 2.1 Candidiasis, Of Vulva And Vagina 10/20/2010 [employer] FOOD SERVICE ATTENDANT, MARIANNA 59 9.0 Uti 10/24/2010 [employer] SERVICE ATTENDANT, HEATHER 250 .00 DIABETES MELLITUS TYPE 2 10/24/2010 [employer] SERVICE ATTENDANT, HEATHER 466 .0 Bronchitis, Acute 10/24/2010 [facility] FOOD SERVICE ATTENDANT, HEATHER 496 PULMONARY OBSTRUCTIVE DISORDERS 10/24/2010 [employer] SERVICE ATTENDANT, HEATHER 250 .00 DIABETES MELLITUS TYPE 2 10/24/2010 [facility] FO[employer] SERVICE ATTENDANT, HEATHER 466 .0 Bronchitis, Acute 10/24/2010 [employer] SERVICE ATTENDANT, HEATHER 496 PULMONARY OBSTRUCTIVE DISORDERS 10/24/2010 [facility] FOOD SERVICE ATTENDANT, HEATHER 250 .00 DIABETES MELLITUS TYPE 2 10/24/2010 [employer] FO[employer] SERVICE ATTENDANT, HEATHER 466 .0 Bronchitis, Acute 10/24/2010 [facility] SERVICE ATTENDANT, HEATHER 496 PULMONARY OBSTRUCTIVE DISORDERS 10/24/2010 [facility] FOOD SERVICE ATTENDANT, HEATHER 250 .00 DIABETES MELLITUS TYPE 2 10/24/2010 [facility] FO[employer] SERVICE ATTENDANT, HEATHER 466 .0 Bronchitis, Acute 10/24/2010 [employer] SERVICE ATTENDANT, HEATHER 496 PULMONARY OBSTRUCTIVE DISORDERS 10/24/2010 [facility] SERVICE ATTENDANT, HEATHER 250 .00 DIABETES MELLITUS TYPE 2 10/24/2010 [facility] FO[employer] SERVICE ATTENDANT, HEATHER 466 .0 Bronchitis, Acute 10/24/2010 [employer] SERVICE ATTENDANT, HEATHER 496 PULMONARY OBSTRUCTIVE DISORDERS 10/24/2010 [employer] FO[employer] SERVICE ATTENDANT, HEATHER 250 .00 DIABETES MELLITUS TYPE 2 10/24/2010 [facility] FO[employer] SERVICE ATTENDANT, HEATHER 466 .0 Bronchitis, Acute 10/24/2010 [employer] FO[employer] SERVICE ATTENDANT, HEATHER 496 PULMONARY OBSTRUCTIVE DISORDERS 10/24/2010 [employer] FO[employer] SERVICE ATTENDANT, HEATHER 250 .00 DIABETES MELLITUS TYPE 2 10/24/2010 [employer] FO[employer] SERVICE ATTENDANT, HEATHER 466 .0 Bronchitis, Acute 10/24/2010 [employer] SERVICE ATTENDANT, HEATHER 496 PULMONARY OBSTRUCTIVE DISORDERS 10/24/2010 [employer] FOOD SERVICE ATTENDANT, MARIANNA 250.00 DIABETES MELLITUS TYPE 2 10/24/2010 [employer] FOOD SERVICE ATTENDANT, MARIANNA 46 6.0 Bronchitis, Acute 10/24/2010 [employer] FOOD SERVICE ATTENDANT, MARIANNA 49 6 PULMONARY OBSTRUCTIVE DISORDERS 10/24/2010 [employer] FOOD SERVICE ATTENDANT, MARIANNA 250.00 DIABETES MELLITUS TYPE 2 10/24/2010 [employer] FOOD SERVICE ATTENDANT, MARIANNA 46 6.0 Bronchitis, Acute 10/24/2010 [employer] FOOD SERVICE ATTENDANT, MARIANNA 49 6 PULMONARY OBSTRUCTIVE DISORDERS 05/12/2011 [facility] FOOD SERVICE ATTENDANT, HEATHER 703 .0 Ingrowing Nail 05/12/2011 [facility] FOOD SERVICE ATTENDANT, HEATHER 726 .91 EXOSTOSIS OF UNSPECIFIED SITE 05/12/2011 [facility] FOOD SERVICE ATTENDANT, HEATHER 703 .0 Ingrowing Nail 05/12/2011 [facility] [employer] SERVICE ATTENDANT, HEATHER 726 .91 EXOSTOSIS OF UNSPECIFIED SITE 05/12/2011 [facility] FOOD SERVICE ATTENDANT, HEATHER 703 .0 Ingrowing Nail 05/12/2011 [facility] FOOD SERVICE ATTENDANT, HEATHER 726 .91 EXOSTOSIS OF UNSPECIFIED SITE 05/12/2011 [facility] FOOD SERVICE ATTENDANT, HEATHER 703 .0 Ingrowing Nail 05/12/2011 [facility] [employer] SERVICE ATTENDANT, HEATHER 726 .91 EXOSTOSIS OF UNSPECIFIED SITE 05/12/2011 [facility] FOOD SERVICE ATTENDANT, HEATHER 703 .0 Ingrowing Nail 05/12/2011 [facility] FOOD SERVICE ATTENDANT, HEATHER 726 .91 EXOSTOSIS OF UNSPECIFIED SITE 05/12/2011 [facility] FOOD SERVICE ATTENDANT, HEATHER 703 .0 Ingrowing Nail 05/12/2011 [facility] FOOD SERVICE ATTENDANT, HEATHER 726 .91 EXOSTOSIS OF UNSPECIFIED SITE 05/12/2011 [facility] FOOD SERVICE ATTENDANT, HEATHER 703 .0 Ingrowing Nail 05/12/2011 [facility] FOOD SERVICE ATTENDANT, HEATHER 726 .91 EXOSTOSIS OF UNSPECIFIED SITE 05/12/2011 [employer] FOOD SERVICE ATTENDANT, MARIANNA 70 3.0 Ingrowing Nail 05/12/2011 [employer] FOOD SERVICE ATTENDANT, MARIANNA 726.91 EXOSTOSIS OF UNSPECIFIED SITE 05/12/2011 [employer] FOOD SERVICE ATTENDANT, MARIANNA 70 3.0 Ingrowing Nail 05/12/2011 [employer] FOOD SERVICE ATTENDANT, MARIANNA 726.91 EXOSTOSIS OF UNSPECIFIED SITE 06/02/2011 [facility] [employer] SERVICE ATTENDANT, HEATHER 078 .12 Plantar Wart 06/02/2011 [employer] SERVICE ATTENDANT, HEATHER 078 .12 Plantar Wart 06/02/2011 [employer] SERVICE ATTENDANT, HEATHER 078 .12 Plantar Wart 06/02/2011 [employer] SERVICE ATTENDANT, HEATHER 078 .12 Plantar Wart 06/02/2011 [employer] SERVICE ATTENDANT, HEATHER 078 .12 Plantar Wart 06/02/2011 [employer] FO[employer] SERVICE ATTENDANT, HEATHER 078 .12 Plantar Wart 06/02/2011 [employer] SERVICE ATTENDANT, HEATHER 078 .12 Plantar Wart 06/02/2011 [employer] FOOD SERVICE ATTENDANT, MARIANNA 078.12 Plantar Wart 06/02/2011 [employer] FOOD SERVICE ATTENDANT, MARIANNA 078.12 Plantar Wart 07/05/2011 [employer] SERVICE ATTENDANT, HEATHER 466 .0 ACUTE BRONCHITIS 07/05/2011 [facility] SERVICE ATTENDANT, HEATHER 466 .0 ACUTE BRONCHITIS 07/05/2011 [facility] SERVICE ATTENDANT, HEATHER 466 .0 ACUTE BRONCHITIS 07/05/2011 [facility] FO[employer] SERVICE ATTENDANT, HEATHER 466 .0 ACUTE BRONCHITIS 07/05/2011 [facility] SERVICE ATTENDANT, HEATHER 466 .0 ACUTE BRONCHITIS 07/05/2011 [facility] FOOD SERVICE ATTENDANT, HEATHER 466 .0 ACUTE BRONCHITIS 07/05/2011 [facility] FO[employer] SERVICE ATTENDANT, HEATHER 466 .0 ACUTE BRONCHITIS 07/05/2011 [employer] FOOD SERVICE ATTENDANT, MARIANNA 46 6.0 ACUTE BRONCHITIS 07/05/2011 [employer] FOOD SERVICE ATTENDANT, MARIANNA 46 6.0 ACUTE BRONCHITIS 11/20/2011 [employer] FO[employer] SERVICE ATTENDANT, HEATHER 682 .9 CELLULITIS 11/20/2011 [employer] FOOD SERVICE ATTENDANT, HEATHER 682 .9 CELLULITIS 11/20/2011 [facility] FOOD SERVICE ATTENDANT, HEATHER 682 .9 CELLULITIS 11/20/2011 [facility] FOOD SERVICE ATTENDANT, HEATHER 682 .9 CELLULITIS 11/20/2011 [facility] FOOD SERVICE ATTENDANT, HEATHER 682 .9 CELLULITIS 11/20/2011 [facility] FOOD SERVICE ATTENDANT, HEATHER 682 .9 CELLULITIS 11/20/2011 [facility] FOOD SERVICE ATTENDANT, HEATHER 682 .9 CELLULITIS 11/20/2011 [employer] FOOD SERVICE ATTENDANT, MARIANNA 68 2.9 CELLULITIS 11/20/2011 [employer] FOOD SERVICE ATTENDANT, MARIANNA 68 2.9 CELLULITIS 12/22/2011 [facility] FOOD SERVICE ATTENDANT, HEATHER 401 .1 ESSENTIAL HYPERTENSION BENIGN 12/22/2011 [facility] FOOD SERVICE ATTENDANT, HEATHER 401 .1 ESSENTIAL HYPERTENSION BENIGN 12/22/2011 [employer] FOOD SERVICE ATTENDANT, HEATHER 401 .1 ESSENTIAL HYPERTENSION BENIGN 12/22/2011 [facility] FOOD SERVICE ATTENDANT, HEATHER 401 .1 ESSENTIAL HYPERTENSION BENIGN 12/22/2011 [facility] FOOD SERVICE ATTENDANT, HEATHER 401 .1 ESSENTIAL HYPERTENSION BENIGN 12/22/2011 [facility] FOOD SERVICE ATTENDANT, HEATHER 401 .1 ESSENTIAL HYPERTENSION BENIGN 12/22/2011 [facility] FOOD SERVICE ATTENDANT, HEATHER 401 .1 ESSENTIAL HYPERTENSION BENIGN 12/22/2011 [employer] FOOD SERVICE ATTENDANT, MARIANNA 40 1.1 ESSENTIAL HYPERTENSION BENIGN 12/22/2011 [employer] FOOD SERVICE ATTENDANT, MARIANNA 40 1.1 ESSENTIAL HYPERTENSION BENIGN 04/09/2012 [facility] KYLE, HEATHER 272 .2 HYPERLIPIDEMIA 04/09/2012 [facility] FOOD SERVICE ATTENDANTHEATHER Sunshine V04 .81 Need For Prophylactic Vaccination And Inoculation Against Influenza 04/09/2012 [facility] HEATHER WRIGHT 272 .2 HYPERLIPIDEMIA 04/09/2012 [facility] HEATHER WRIGHT V04 .81 Need For Prophylactic Vaccination And Inoculation Against Influenza 04/09/2012 BRAN[facility]E HEATHER WRIGHT 272 .2 HYPERLIPIDEMIA 04/09/2012 [facility] FOOD SERVICE ATTENDANT, HEATHER V04 .81 Need For Prophylactic Vaccination And Inoculation Against Influenza 04/09/2012 BR[facility] HEATHER WRIGHT 272 .2 HYPERLIPIDEMIA 04/09/2012 [facility] FOOD SERVICE ATTENDANTHEATHER Sunshine V04 .81 Need For Prophylactic Vaccination And Inoculation Against Influenza 04/09/2012 BRAN[facility]E HEATHER WRIGHT 272 .2 HYPERLIPIDEMIA 04/09/2012 [facility] HEATHER WRIGHT V04 .81 Need For Prophylactic Vaccination And Inoculation Against Influenza 04/09/2012 BRANDEE HEATHER WRIGHT 272 .2 HYPERLIPIDEMIA 04/09/2012 [facility] FOOD SERVICE ATTENDANT, HEATHER V04 .81 Need For Prophylactic Vaccination And Inoculation Against Influenza 04/09/2012 [employer] FOOD SERVICE ATTENDANT, HEATHER 272 .2 HYPERLIPIDEMIA 04/09/2012 [employer] FOOD SERVICE ATTENDANT, HEATHER V04 .81 Need For Prophylactic Vaccination And Inoculation Against Influenza 04/09/2012 [employer] FOOD SERVICE ATTENDANTMARIANNA Sunshine 27 2.2 HYPERLIPIDEMIA 04/09/2012 [employer] FOOD SERVICE ATTENDANTMARIANNA Sunshine V04.81 Need For Prophylactic Vaccination And Inoculation Agai nst Influenza 04/09/2012 [employer] FOOD SERVICE ATTENDANTMARIANNA Sunshine 27 2.2 HYPERLIPIDEMIA 04/09/2012 G[facility] FOOD SERVICE ATTENDANTMARIANNA V04.81 Need For Prophylactic Vaccination And Inoculation Agai nst Influenza 05/14/2012 [employer] FOOD SERVICE ATTENDANT, HEATHER 682 .9 Cellulitis/abscess 05/14/2012 [employer] FOOD SERVICE ATTENDANT, HEATHER 682 .9 Cellulitis/abscess 05/14/2012 [facility] FOOD SERVICE ATTENDANT, HEATHER 682 .9 Cellulitis/abscess 05/14/2012 [employer] FOOD SERVICE ATTENDANT, HEATHER 682 .9 Cellulitis/abscess 05/14/2012 [employer] FOOD SERVICE ATTENDANT, HEATHER 682 .9 Cellulitis/abscess 05/14/2012 [employer] FOOD SERVICE ATTENDANT, HEATHER 682 .9 Cellulitis/abscess 05/14/2012 [employer] FOOD SERVICE ATTENDANT, HEATHER 682 .9 Cellulitis/abscess 05/14/2012 [facility] FOOD SERVICE ATTENDANTMARIANNA Sunshine 68 2.9 Cellulitis/abscess 05/14/2012 MARIANNA FAUST APRN 68 2.9 Cellulitis/abscess 06/24/2012 [facility] FOOD SERVICE ATTENDANT, HEATHER 112 .1 Candidiasis, Of Vulva And Vagina 06/24/2012 [facility] FOOD SERVICE ATTENDANT, HEATHER 112 .1 Candidiasis, Of Vulva And Vagina 06/24/2012 [facility] FOOD SERVICE ATTENDANTHEATHER 112 .1 Candidiasis, Of Vulva And Vagina 06/24/2012 [employer] FOOD SERVICE ATTENDANT, HEATHER 112 .1 Candidiasis, Of Vulva And Vagina 06/24/2012 [employer] FOOD SERVICE ATTENDANT, HEATHER 112 .1 Candidiasis, Of Vulva And Vagina 06/24/2012 [facility] FOOD SERVICE ATTENDANTHEATHER 112 .1 Candidiasis, Of Vulva And Vagina 06/24/2012 [employer] FOOD SERVICE ATTENDANT, HEATHER 112 .1 Candidiasis, Of Vulva And Vagina 06/24/2012 [employer] FOOD SERVICE ATTENDANT MARIANNA 11 2.1 Candidiasis, Of Vulva And Vagina 06/24/2012 [employer] FOOD SERVICE ATTENDANT, MARIANNA 11 2.1 Candidiasis, Of Vulva And Vagina 06/28/2012 [employer] FOOD SERVICE ATTENDANT, HEATHER 110 .1 Onychomycosis 06/28/2012 [facility] FOOD SERVICE ATTENDANT, HEATHER 703 .8 Other Specified Diseases Of Nail 06/28/2012 [facility] FOOD SERVICE ATTENDANT, HEATHER 110 .1 Onychomycosis 06/28/2012 [employer] FOOD SERVICE ATTENDANT, HEATHER 703 .8 Other Specified Diseases Of Nail 06/28/2012 [employer] FOOD SERVICE ATTENDANT, HEATHER 110 .1 Onychomycosis 06/28/2012 [employer] FOOD SERVICE ATTENDANT, HEATHER 703 .8 Other Specified Diseases Of Nail 06/28/2012 [employer] FOOD SERVICE ATTENDANT, HEATHER 110 .1 Onychomycosis 06/28/2012 [employer] FOOD SERVICE ATTENDANT, HEATHER 703 .8 Other Specified Diseases Of Nail 06/28/2012 [employer] FOOD SERVICE ATTENDANT, HEATHER 110 .1 Onychomycosis 06/28/2012 [employer] FOOD SERVICE ATTENDANT, HEATHER 703 .8 Other Specified Diseases Of Nail 06/28/2012 [employer] FOOD SERVICE ATTENDANT, HEATHER 110 .1 Onychomycosis 06/28/2012 [employer] FOOD SERVICE ATTENDANT, HEATHER 703 .8 Other Specified Diseases Of Nail 06/28/2012 [employer] FOOD SERVICE ATTENDANT, HEATHER 110 .1 Onychomycosis 06/28/2012 [employer] FOOD SERVICE ATTENDANT, HEATHER 703 .8 Other Specified Diseases Of Nail 06/28/2012 [employer] FOOD SERVICE ATTENDANT MARIANNA 11 0.1 Onychomycosis 06/28/2012 [employer] FOOD SERVICE ATTENDANT, MARIANNA 70 3.8 Other Specified Diseases Of Nail 06/28/2012 [employer] FOOD SERVICE ATTENDANT MARIANNA 11 0.1 Onychomycosis 06/28/2012 [employer] FOOD SERVICE ATTENDANT, MARIANNA 70 3.8 Other Specified Diseases Of Nail 08/21/2012 [employer] FOOD SERVICE ATTENDANT, HEATHER 682 .9 Cellulitis/abscess 08/21/2012 [employer] FOOD SERVICE ATTENDANT, HEATHER V72 .31 Gynecological Exam 08/21/2012 [facility] FOOD SERVICE ATTENDANT, HEATHER 682 .9 Cellulitis/abscess 08/21/2012 [employer] FOOD SERVICE ATTENDANT, HEATHER V72 .31 Gynecological Exam 08/21/2012 [facility] FOOD SERVICE ATTENDANT, HEATHER 682 .9 Cellulitis/abscess 08/21/2012 [facility] FOOD SERVICE ATTENDANT, HEATHER V72 .31 Gynecological Exam 08/21/2012 [facility] FOOD SERVICE ATTENDANT, HEATHER 682 .9 Cellulitis/abscess 08/21/2012 [facility] FOOD SERVICE ATTENDANT, HEATHER V72 .31 Gynecological Exam 08/21/2012 [facility] FOOD SERVICE ATTENDANT, HEATHER 682 .9 Cellulitis/abscess 08/21/2012 [facility] FOOD SERVICE ATTENDANT, HEATHER V72 .31 Gynecological Exam 08/21/2012 [facility] FOOD SERVICE ATTENDANT, HEATHER 682 .9 Cellulitis/abscess 08/21/2012 [facility] FOOD SERVICE ATTENDANT, HEATHER V72 .31 Gynecological Exam 08/21/2012 [facility] FOOD SERVICE ATTENDANT, HEATHER 682 .9 Cellulitis/abscess 08/21/2012 [employer] FOOD SERVICE ATTENDANT, HEATHER V72 .31 Gynecological Exam 08/21/2012 [employer] FOOD SERVICE ATTENDANT, MARIANNA 68 2.9 Cellulitis/abscess 08/21/2012 G[employer]IND FOOD SERVICE ATTENDANT, MARIANNA V72.31 Gynecological Exam 08/21/2012 [employer]IND FOOD SERVICE ATTENDANT, MARIANNA 68 2.9 Cellulitis/abscess 08/21/2012 GOVIND FOOD SERVICE ATTENDANT, MARIANNA V72.31 Gynecological Exam 10/08/2012 [facility] FOOD SERVICE ATTENDANT, HEATHER 466 .0 Bronchitis, Acute 10/08/2012 [facility] FOOD SERVICE ATTENDANT, HEATHER 466 .0 Bronchitis, Acute 10/08/2012 [facility] FOOD SERVICE ATTENDANT, HEATHER 466 .0 Bronchitis, Acute 10/08/2012 [facility] FOOD SERVICE ATTENDANT, HEATHER 466 .0 Bronchitis, Acute 10/08/2012 [facility] FOOD SERVICE ATTENDANT, HEATHER 466 .0 Bronchitis, Acute 10/08/2012 [facility] FOOD SERVICE ATTENDANT, HEATHER 466 .0 Bronchitis, Acute 10/08/2012 [facility] FOOD SERVICE ATTENDANT, HEATHER 466 .0 Bronchitis, Acute 10/08/2012 [employer] FOOD SERVICE ATTENDANT, MARIANNA 46 6.0 Bronchitis, Acute 10/08/2012 [employer] FOOD SERVICE ATTENDANT, MARIANNA 46 6.0 Bronchitis, Acute 12/05/2012 [facility] FOOD SERVICE ATTENDANT, HEATHER 599 .0 Uti 12/05/2012 [employer] FOOD SERVICE ATTENDANT, HEATHER 599 .0 Uti 12/05/2012 [facility] FOOD SERVICE ATTENDANT, HEATHER 599 .0 Uti 12/05/2012 [facility] FOOD SERVICE ATTENDANT, HEATHER 599 .0 Uti 12/05/2012 [facility] FOOD SERVICE ATTENDANT, HEATHER 599 .0 Uti 12/05/2012 [facility] FOOD SERVICE ATTENDANT, HEATHER 599 .0 Uti 12/05/2012 [facility] FOOD SERVICE ATTENDANT, HEATHER 599 .0 Uti 12/05/2012 [employer] FOOD SERVICE ATTENDANT, MARIANNA 59 9.0 Uti 12/05/2012 [employer] FOOD SERVICE ATTENDANT, MARIANNA 59 9.0 Uti 05/21/2013 [facility] FOOD SERVICE ATTENDANT, HEATHER 285 .9 ANEMIA, UNSPECIFIED 05/21/2013 [facility] FOOD SERVICE ATTENDANT, HEATHER 285 .9 ANEMIA, UNSPECIFIED 05/21/2013 [facility] FOOD SERVICE ATTENDANT, HEATHER 285 .9 ANEMIA, UNSPECIFIED 05/21/2013 [facility] FOOD SERVICE ATTENDANT, HEATHER 285 .9 ANEMIA, UNSPECIFIED 05/21/2013 BRANDEE FOOD SERVICE ATTENDANT, HEATHER 285 .9 ANEMIA, UNSPECIFIED 05/21/2013 BRANDEE FOOD SERVICE ATTENDANT, HEATHER 285 .9 ANEMIA, UNSPECIFIED 05/21/2013 RBANDEE FOOD SERVICE ATTENDANT, HEATHER 285 .9 ANEMIA, UNSPECIFIED 05/21/2013 GOVIND FOOD SERVICE ATTENDANT, MARIANNA 28 5.9 ANEMIA, UNSPECIFIED 08/07/2013 BRANDEE FOOD SERVICE ATTENDANT, HEATHER 682 .5 CELLULITIS AND ABSCESS OF BUTTOCK 08/07/2013 BRANDEE FOOD SERVICE ATTENDANT, HEATHER 682 .5 CELLULITIS AND ABSCESS OF BUTTOCK 08/07/2013 BRANDEE FOOD SERVICE ATTENDANT, HEATHER 682 .5 CELLULITIS AND ABSCESS OF BUTTOCK 08/07/2013 BRANDEE FOOD SERVICE ATTENDANT, HEATHER 682 .5 CELLULITIS AND ABSCESS OF BUTTOCK 08/07/2013 BRANDEE FOOD SERVICE ATTENDANT, HEATHER 682 .5 CELLULITIS AND ABSCESS OF BUTTOCK 08/07/2013 BRANDEE FOOD SERVICE ATTENDANT, HEATHER 682 .5 CELLULITIS AND ABSCESS OF BUTTOCK 08/07/2013 BRANDEE FOOD SERVICE ATTENDANT, HEATHER 682 .5 CELLULITIS AND ABSCESS OF BUTTOCK 12/12/2013 BRANDEE FOOD SERVICE ATTENDANT, HEATHER 250 .02 DIABETES MELLITUS WITHOUT MENTION [...] 2 DIABETES MELLITUS WITH HYPERGLYCE 09/20/2018 KAPIL DIONYED T Ot I10 ESSENTIAL (PRIMARY) HYPERTENSION [...] Ot I10 ESSENTIAL (PRIMARY) HYPERTENSION 10/13/2018 DANIEL EHRNANDEZ MD, Ot J44.9 CHRONIC OBSTRUCTIVE PULMONARY DISEASE, [...] ABRASION, LEFT LOWER LEG, INITIAL ENCOUN 10/17/2018 DINAE DELCID MD, Ot X58.XXXA EXPOSURE TO OTHER [...] T Ot I95.9 HYPOTENSION, UNSPECIFIED 11/08/2018 JAME CULEVR DO Ot J18.9 PNEUMONIA, UNSPECIFIED ORGANISM 11/08/2018 JAME UCLVER DO Ot J45.909 UNSPECIFIED ASTHMA, UNCOMPLICATED 11/08/2018 [...] Ot R10.84 GENERALIZED ABDOMINAL PAIN 01/02/2019 JERI BATMEAN, MANASA Funes Ot R10.84 GENERALIZED ABDOMINAL PAIN 01/02/2019 [place] DOJAZIEL Ot B37.49 OTHER UROGENITAL CANDIDIASIS 01/02/2019 WONG DO, JAZIEL Ot E11.9 TYPE 2 DIABETES MELLITUS WITHOUT COMPLIC 01/02/2019 WONG DO, JAZIEL Ot I10 ESSENTIAL (PRIMARY) HYPERTENSION 01/02/2019 [place] , JAZIEL Ot J45.909 UNSPECIFIED ASTHMA, UNCOMPLICATED [...] JAZIEL Ot Z98.51 TUBAL LIGATION STATUS 01/04/2019 [place] DO, JAZIEL Ot E11.9 TYPE 2 DIABETES MELLITUS WITHOUT COMPLIC 01/04/2019 [place] DO, JAZIEL Ot I10 ESSENTIAL (PRIMARY) HYPERTENSION 01/04/2019 [place] DO, JAZIEL Ot J45.909 UNSPECIFIED ASTHMA, UNCOMPLICATED [...] Ot Z90.5 ACQUIRED ABSENCE OF KIDNEY 01/04/2019 WONG DO, JAZIEL Ot Z90.710 ACQUIRED ABSENCE [...] Z90.89 ACQUIRED ABSENCE OF OTHER ORGANS 01/10/2019 POAL WEBB DO Ot Z98.51 TUBAL LIGATION STATUS [...] OF BOTH CERVIX AND UTER 01/14/2019 DIANE DLECID MD Ot Z90.8 9 ACQUIRED ABSENCE OF [...] SANTOS DO Ot K64.8 OTHER HEMORRHOIDS 03/24/2019 MIKAYLA DE LOS SANTOS DO Ot Z12.1 1 ENCOUNTER FOR SCREENING FOR MALIGNANT NE 03/24/2019 MIKAYLA DE LOS SANTOS DO Ot Z68.3 5 BODY MASS INDEX (BMI) 35.0-35.9, ADULT 03/24/2019 MIKAYLA DE LOS SANTOS DO Ot Z79.8 99 OTHER COMMUNITY LIAISON OFFICER (CURRENT) DRUG THERAPY 03/24/2019 MIKAYLA DE LOS [...] LOS SANTOS DO Ot Z79.8 99 OTHER PENITENTIARY (CURRENT) DRUG THERAPY 03/27/2019 MIKAYLA DE LOS [...] 04/14/2019 LUCÍA FUENTES MD Ot Z79. 84 COMMUNITY LIAISON OFFICER (CURRENT) USE OF ORAL HYPOGLYC 04/14/2019 LUCÍA [...] 04/16/2019 LUCÍA FUENTES MD, Ot Z79. 84 COMMUNITY LIAISON OFFICER (CURRENT) USE OF ORAL HYPOGLYC 04/16/2019 LUCÍA [...] MASS INDEX (BMI) 35.0-35.9, ADULT 06/02/2019 MIKAYLA DE LOS SANTOS DO Ot Z79.8 99 OTHER PENITENTIARY (CURRENT) DRUG THERAPY 06/02/2019 MIKAYLA DE LOS [...] SLEEP APNEA (ADULT) (PEDIATR 06/05/2019 MIKAYLA DE LO SSANTOS DO Ot I10 ESSENTIAL (PRIMARY) HYPERTENSION 06/05/2019 [...] MIKAYLA DE LOS SANTOS DO Ot Z79.1 COMMUNITY LIAISON OFFICER (CURRENT) USE OF NON-STEROIDAL 06/05/2019 MIKAYLA DE LOS SANTOS DO Ot Z79.8 99 OTHER PENITENTIARY (CURRENT) DRUG THERAPY 06/05/2019 MIKAYLA DE LOS [...] JAZIEL Ot J45.909 UNSPECIFIED ASTHMA, UNCOMPLICATED 06/13/2019 [facility], JAZIEL Ot Z79.84 COMMUNITY LIAISON OFFICER (CURRENT) USE OF ORAL HYPOGLYC 06/13/2019 [facility], JAZIEL Ot Z85.528 PERSONAL HISTORY OF OTHER MALIGNANT NEOP 06/13/2019 [facility], JAZIEL Ot Z87.442 PERSONAL HISTORY OF URINARY CALCULI 06/13/2019 [facility], JAZIEL Ot Z90.710 ACQUIRED ABSENCE OF BOTH CERVIX AND UTER 06/13/2019 [facility], JAZIEL Ot Z90.89 ACQUIRED ABSENCE OF OTHER ORGANS 06/13/2019 [facility], JAZIEL Ot Z98.51 TUBAL LIGATION STATUS 06/17/2019 [facility], JAZIEL Ot B19.20 UNSPECIFIED VIRAL HEPATITIS C WITHOUT HE 06/17/2019 [facility], JAZIEL Ot E11.9 TYPE 2 DIABETES MELLITUS WITHOUT COMPLIC 06/17/2019 [facility], JAZIEL Ot F17.210 NICOTINE DEPENDENCE, CIGARETTES, UNCOMPL 06/17/2019 [facility], JAZIEL Ot F39 UNSPECIFIED MOOD [AFFECTIVE] DISORDER 06/17/2019 [facility], JAZIEL Ot F41.0 PANIC DISORDER [EPISODIC PAROXYSMAL ANXI 06/17/2019 [place] DO, JAZIEL Ot I10 ESSENTIAL (PRIMARY) HYPERTENSION 06/17/2019 [facility], JAZIEL Ot J45.909 UNSPECIFIED ASTHMA, UNCOMPLICATED 06/17/2019 [facility], JAZIEL Ot Z79.84 COMMUNITY LIAISON OFFICER (CURRENT) USE OF ORAL HYPOGLYC 06/17/2019 [facility], JAZIEL Ot Z85.528 PERSONAL HISTORY OF OTHER MALIGNANT NEOP 06/17/2019 [facility], JAZIEL Ot Z87.442 PERSONAL HISTORY OF URINARY CALCULI 06/17/2019 [facility], JAZIEL Ot Z90.710 ACQUIRED ABSENCE OF BOTH CERVIX AND UTER 06/17/2019 [facility], JAZIEL Ot Z90.89 ACQUIRED ABSENCE OF OTHER ORGANS 06/17/2019 [place] DO, JAZIEL Ot Z98.51 TUBAL LIGATION STATUS [...] 06/25/2019 MARK BOJORQUEZ MD Ot Z79. 84 COMMUNITY LIAISON OFFICER (CURRENT) USE OF ORAL HYPOGLYC 06/25/2019 MARK [...] 06/27/2019 MARK BOJORQUEZ MD Ot Z79. 84 COMMUNITY LIAISON OFFICER (CURRENT) USE OF ORAL HYPOGLYC 06/27/2019 MARK BOJORQEUZ MD Ot Z85.528 PERSONAL HISTORY OF OTHER [...] TOBACCO SMO 07/01/2019 ROVENSTINE DOEDNA Ot Z79.84 PENITENTIARY (CURRENT) USE OF ORAL HYPOGLYC 07/01/2019 ROVENSTINE [...] 07/06/2019 BASS DO, DEBBIE L Ot Z79.4 PENITENTIARY (CURRENT) USE OF INSULIN 07/06/2019 BASS DO, [...] 07/08/2019 BASS DO, DEBBIE L Ot Z79.4 PENITENTIARY (CURRENT) USE OF INSULIN 07/08/2019 BASS DO, [...] Code Description [place] [address] GLUCOSE 05/08/2013 56342 HEMO GLOBIN A1C 05/08/2013 G0008 ADMI N FEE (MEDICARE) INFLUENZA 05/14/2013 93098 CBC - CBC WITH DIFF - LC 05/15/2013 25012 COMP - COMPREHENSIVE PANEL - LC 05/15/2013 24755 LIPI D - LIPID PANEL - LC 05/15/2013 48404 TSH - TSH - LC 05/15/2013 08839 MALB - MICROALBUMIN - LC 05/15/2013 34688 GLUCOSE 08/11/2013 22362 HEMO GLOBIN A1C 08/11/2013 76579 CBC WITH DIFF 08/12/2013 95574 GLUCOSE 10/07/2013 4000F TOBA MULTIMEDIA EDITOR USE TXMNT COUNSELING 10/13/2013 42555 PULS E OXIMETRY 12/12/2013 A4614 PEAK FLOW 12/12/2013 04651 GLUCOSE 12/12/2013 15685 HEMO GLOBIN A1C 12/12/2013 Pulmonary Pulmonary Function Test 01/13/2014 A4614 PEAK FLOW 02/10/2014 38292 PULS E OXIMETRY 02/10/2014 45081 GLUCOSE 02/10/2014 Endocrino Endocrinology 02/13/2014 Pulmonary Pulmonology, Pulmonology 03/13/2014 10155 PULS E OXIMETRY 04/14/2014 A4614 PEAK FLOW [...] 0.50-1.05 eGFR NON-AFR. MALAYSIAN 74 mL/min/1.73m2 > OR = 60 eGFR [...] Blood dohle body detection by light microscopy [facility] Blood microcytes detection by light microscopy [facility] Comprehensive metabolic panel - 11/06/18 [...] - 11/06/18 18:55 Bacterial blood culture NG [facility] Influenza virus A and B antigen detectio n - 11/06/18 18:59 FLU RESULT NEGATIVE FOR INFLUENZA A AND B ANTIGENS BY IA [facility] Bacterial blood culture - 11/06/18 19:08 Bacterial blood culture NG [facility] Capillary blood glucose measurement by g lucometer [...] culture - 01/04/19 19:30 Bacterial urine culture [id number] NRG COLONY COUNT 30,000 CFU/ML NRG Complete [...] culture - 01/04/19 20:35 Bacterial urine culture [id number] NRG COLONY COUNT . NRG FTX;REPORTABLE <10,000 [...] 7-25 CREATININE 1.23 mg/dL 0.50-1.05 eGFR NON-AFR. MALAYSIAN 50 mL/min/1.73m2 > OR = 60 eGFR [...] Status Pt. Type Provider Facility Loc./Unit Complaint [id number] 10/30/2018 17:22:00 Document Registration [id number] 10/30/2018 17:22:00 Document Registration [email or web address] 04/26/2019 03:58:14 ACT Document Registration [id number] 04/22/2019 09:41:02 ACT Unknown Halle Sahni MD [id number] 07/06/2019 17:56:00 20:32:00 DIS Emergency BASS DEBBIE BLANCA L Via [facility] ER FS HIGH BLOOD SUGAR [id number] 06/27/2019 21:51:00 22:23:00 DIS Outpatient ROVENSTINE EDNA BLANCA L [facility] ER FS SOB,N,V [id number] 06/21/2019 15:26:00 18:47:00 DIS Outpatient MARK BOJORQUEZ MD Via [facility] ER FS BLOOD SUGAR 415; SOB [id number] 06/17/2019 23:44:00 00:22:00 DIS Emergency MAKSIM RICCI MD [facility] ER FS SORE THROAT [id number] 06/12/2019 20:58:00 00:00:00 DIS Emergency JAZIEL WONG DO Via [facility] ER FS PSYCH EVAL [id number] 06/02/2019 08:49:00 12:33:00 DIS Outpatient MIKAYLA DE LOS SANTOS DO Via [facility] ENDO HX POLYPS [id number] 05/06/2019 13:20:00 13:25:00 DIS Outpatient MIKAYLA DE LOS SANTOS DO Via [facility] PREOP COLONOSCOPY [id number] 04/14/2019 13:32:00 17:50:00 DIS Emergency LUCÍA FUENTES MD [facility] ER FS SOB; CHEST PAIN [id number] 03/24/2019 10:00:00 12:45:00 DIS Outpatient MIKAYLA DE LOS SANTOS DO Via [facility] ENDO SCREENING [id number] 03/22/2019 20:27:00 21:50:00 DIS Emergency KALI BLANCA DEBBIE L [facility] ER FS SOA [id number] 03/18/2019 05:38:00 23:59:59 CLS Outpatient MIKAYLA DE LOS SANTOS DO Via [facility] PREOP COLONOSCOPY [id number] 03/07/2019 21:51:00 22:35:00 DIS Emergency RABIA WILKS MD [facility] ER FS PANIC ATTACK [id number] 01/11/2019 15:06:00 17:55:00 DIS Emergency BASS DO DEBBIE L [facility] ER FS PT STATES SHE NEEDS A M ENTAL HEALTH SCREENING [id number] 01/10/2019 19:58:00 21:53:00 DIS Emergency DIANE DELCID MD [facility] ER FS SEVERE RT SIDE ABD PAIN ;SOB [id number] 01/08/2019 17:11:00 20:40:00 DIS Emergency POLA WEBB DO [facility] ER FS CHEST PAIN, SOB [id number] 01/06/2019 21:51:00 01:32:00 DIS Emergency POLA WEBB DO [facility] ER FS MENTAL HEALTH EVAL [id number] 01/05/2019 19:25:00 20:17:00 DIS Emergency TARIK GEORGE DO [facility] ER FS RIGHT SIDE PAIN [id number] 01/04/2019 19:17:00 21:13:00 DIS Emergency JAZIEL WONG DO [facility] ER FS RIGHT SIDE PAIN [id number] 01/02/2019 04:59:00 05:55:00 DIS Emergency JAZIEL WONG DO [facility] ER FS RIGHT SIDE PAIN [id number] 12/21/2018 17:59:00 19:50:00 DIS Emergency DIANE DELCID MD [facility] ER FS SOB,VAGINAL PAIN [id number] 12/14/2018 14:21:00 16:45:00 DIS Emergency GINA BATEMAN, LUCÍA Serrato [facility] ER FS ABD PAIN,VAGINAL PAIN F ROM CATHETER [id number] 12/12/2018 13:47:00 23:59:59 CLS Outpatient JERI BATEMAN, MANASA Funes [facility] RAD FS R10.84 GEN ABD PAIN [id number] 11/29/2018 08:34:00 16:55:00 DIS Emergency DIANE DELCID MD [facility] ER FS URINARY RETENTION [id number] 11/14/2018 21:43:00 23:23:00 DIS Emergency DANIEL HERNANDEZ MD [facility] ER FS BLOOD SUGAR ISSUES [id number] 11/06/2018 17:40:00 01:30:00 DIS Emergency JAME CULVER DO [facility] ER FS SOB,CHEST PAIN [id number] 10/30/2018 20:30:00 00:33:00 DIS Emergency DIANE DELCID MD [facility] ER FS SOB, HIGH BLOOD SUGAR, ABD SORE [id number] 10/16/2018 22:53:00 00:25:00 DIS Emergency DIANE DELCID MD [facility] ER FS CHEST PAINS [id number] 10/13/2018 17:02:00 20:45:00 DIS Emergency MARY BATEMAN, DANIEL de dios [facility] ER FS CHEST PAIN,SOB [id number] 09/18/2018 20:56:00 07:30:00 DIS Emergency NOEL DICK DO [facility] ER FS HIGH BLOOD SUGAR, SOB [id number] 09/12/2018 14:20:00 15:56:00 DIS Emergency DANIEL HERNANDEZ MD [facility] ER FS FALL; RT HIP/MI WRIST INJ [id number] 12/24/2018 10:40:00 9 23:59:59 DIS Outpatient LINDA SAHNI [facility]RISTOPHER RAD [id number] 08/26/2018 07:22:56 9 23:59:59 DIS Outpatient DANAY SORIA [facility]STOPHER LAB [id number] 05/30/2018 08:41:17 8 23:59:59 DIS Outpatient LINDA SAHNI [facility] CHRISTOPHER RAD [id number] 04/25/2018 12:24:37 8 23:59:59 CLS Preadmit LINDA SAHNI [facility] CHRISTOPHER Surgery ops [id number] 04/02/2019 11:54:39 Document Registration [id number] 11/13/2018 14:34:59 Document Registration [id number] 08/06/2018 13:35:03 Document Registration [id number] 07/05/2018 09:35:35 ACT V AMADOU ROBERT [facility] CHRISTOPHER MS [id number] 06/18/2018 06:13:13 Inpatient LINDA SAHNI [facility] CHRISTOPHER MS ops [id number] 06/30/2019 16:00:00 07/04/2019 10:30 :00 DIS Inpatient Lianna Davis enter ICU [id number] 06/30/2019 17:27:54 Document Registration [id number] 07/15/2019 09:30:00 ACT Outpatient MANASA WILCOX [facility] [id number] 05/23/2019 07:00:00 Document Registration [id number] 01/30/2019 09:40:00 Document Registration [id number] 12/30/2018 16:30:00 Document Registration [id number] 12/30/2018 14:39:00 Document Registration [id number] 12/18/2018 12:00:00 Document Registration [id number] 10/07/2018 13:15:00 Document Registration [id number] 09/25/2018 09:45:00 Document Registration [id number] 04/14/2014 08:59:00 04/14/2014 11:05: 00 DIS Outpatient HEATHER IRVIN APRN [id number] 02/10/2014 09:57:00 02/10/2014 23:59: 59 CLS Outpatient HEATHER IRVIN APRN [id number] 02/10/2014 09:57:00 02/10/2014 23:59: 59 CLS Outpatient HEATHER IRVIN APRN [id number] 12/12/2013 10:38:00 12/12/2013 23:59: 59 CLS Outpatient HEATHER IRVIN APRN [id number] 10/07/2013 14:37:00 10/13/2013 20:05: 00 DIS Outpatient HEATHER IRVIN APRN [id number] 10/07/2013 14:37:00 10/07/2013 23:59: 59 CLS Outpatient HEATHER IRVIN APRN [id number] 08/11/2013 10:11:00 08/11/2013 13:49: 00 DIS Outpatient HEATHER IRVIN APRN [id number] 05/08/2013 09:56:00 05/08/2013 23:59:5 9 CLS Outpatient MARIANNA FAUST APRN [id number] 01/08/2013 08:25:00 01/08/2013 23:59:5 9 CLS Outpatient GOVIND KYLEMARIANNA [id number] 10/15/2014 15:34:45 10/15/2014 23: 59:00 DIS Outpatient SONY CAMPO [facility] [id number] 08/12/2014 12:31:00 08/12/2014 14: 34:00 DIS Emergency [facility] FED [id number] 06/21/2014 16:47:00 06/21/2014 17: 52:00 DIS Emergency [facility] [id number] 09/02/2014 00:00:00 Document Registration
== END 2019-06-21 18:47 | disposition home or self-care (01) ==
LOC: EDUNIT# 15:24 → ER FS 15:26
DX: J40 Bronchitis, not specified as acute or chronic (principal); E11.65 Type 2 diabetes mellitus with hyperglycemia; J44.0 Chronic obstructive pulmonary disease with (acute) lower respiratory infection; I10 Essential (primary) hypertension; B19.20 Unspecified viral hepatitis C without hepatic coma; Z79.84 Long term (current) use of oral hypoglycemic drugs; Z77.22 Contact with and (suspected) exposure to environmental tobacco smoke (acute) (chronic); Z90.5 Acquired absence of kidney; Z85.528 Personal history of other malignant neoplasm of kidney; Z90.710 Acquired absence of both cervix and uterus; Z98.51 Tubal ligation status; Z90.89 Acquired absence of other organs
CPT/HCPCS: 36415; 71046; 80048; 82962; 85007; 85027; 94640; 96372; 96374; 96376

== ENCOUNTER 2019-06-27 21:49 | Emergency (ER) | payer MEDICARE, MEDICAID ==
[~2019-06-27] VITALS: Ht 170.2 cm; Wt 110.8 kg
[~2019-06-27 21:49] MED LIST changes: +METF750T2 PO; -METF750T45 PO; +TRAM50TA2 PO; -TRM50T PO; -ZIPR80CA21; +ZIPR80CA23
--- NOTE | 2019-06-27 22:10 | ED Cough/URI ---
General Chief Complaint: Respiratory Problems Stated Complaint: SOB,N,V Source: patient Exam Limitations: no limitations History of Present Illness Date Seen by Provider: Jun 27, 2019 Time Seen by Provider: 22:00 Initial Comments Patient presents with 2 week history of a cough, past medical history significant for COPD and smoking. Seen by her PCP last week started on Levaquin and by mouth steroids, patient states that this week she was restarted on her steroids as she hadn't gotten any better. This evening she had a coughing spell, used her home nebulizer and vomited twice prior to coming to the emergency room tonight. Denies any fevers or chills Allergies and Home Medications Allergies Coded Allergies: No Known Drug Allergies (Unverified , 05/06/19) Home Medications Atorvastatin Calcium 10 Mg Tablet, 10 MG PO HS, (Reported) Escitalopram Oxalate 10 Mg Tablet, 10 MG PO DAILY, (Reported) Ibuprofen 800 Mg Tablet, 800 MG PO Q8H PRN for PAIN-MILD, (Reported) Linagliptin 5 Mg Tablet, 5 MG PO DAILY, (Reported) Lisinopril 5 Mg Tablet, 5 MG PO DAILY, (Reported) Metformin HCl 750 Mg Tab.er.24h, 1,500 MG PO HS, (Reported) Nebivolol HCl 10 Mg Tab, 10 MG PO DAILY, (Reported) Olanzapine 10 Mg Tablet, 10 MG PO HS, (Reported) Tramadol HCl 50 Mg Tablet, 50 MG PO PRN, (Reported) Ziprasidone 80 Mg Cap, 160 MG PO HS, (Reported) Patient Home Medication List Home Medication List Reviewed: Yes Review of Systems Review of Systems Constitutional: see HPI; No chills, No fever; malaise; No weakness EENTM: No ear pain, No hoarseness, No throat pain Respiratory: see HPI, cough; No hemoptysis, No orthopnea; short of breath; No stridor; wheezing Cardiovascular: see HPI; No chest pain, No palpitations Gastrointestinal: No abdominal pain; nausea, vomiting Musculoskeletal: No back pain, No muscle cramps Skin: No change in color, No rash Past Kqkhdfv-Jrgmno-Jqthwa Hx Past Med/Social Hx: Reviewed Nursing Past Med/Soc Hx Patient Social History Alcohol Use: Denies Use Recreational Drug Use: Yes Drug of Choice: marijuana Type Used: Cigarettes 2nd Hand Smoke Exposure: Yes Recent Foreign Travel: No Contact w/Someone Who Travel: No Recent Hopitalizations: No Physical Abuse: No Sexual Abuse: No Mistreated: No Fear: No Seasonal Allergies Seasonal Allergies: No Past Medical History Surgeries: Yes Abdominal, Hysterectomy, Nephrectomy, Tonsillectomy, Tubal Ligation Respiratory: Yes Asthma, COPD, Emphysema Currently Using CPAP: No (Has CPAP for JUAN ANTONIO but not tolerating) Currently Using BIPAP: No Cardiac: Yes High Cholesterol, Hypertension Neurological: No TWISTHAND History: Hysterectomy Genitourinary: 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 had recent axilla abscess) Recent Skin Changes Blood Disorders: Yes (HEP C) Adverse Reaction/Blood Tranf: No Physical Exam Vital Signs - First Documented Capillary Refill : Height: 5'7.00" Weight: 224lbs. 0.0oz. 101.752087wg; 36.00 BMI Method:Actual General Appearance: WD/WN, no apparent distress HEENT: PERRL/EOMI, normal ENT inspection Neck: non-tender, supple Respiratory: chest non-tender, no respiratory distress, no accessory muscle use, rhonchi, wheezing, expiration Cardiovascular: regular rate, rhythm, no edema, no JVD Gastrointestinal: normal bowel sounds, non tender, soft Extremities: normal range of motion, non-tender, no calf tenderness Neurologic/Psychiatric: alert, normal mood/affect Progress/Results/Core Measures Suspected Sepsis SIRS Temperature: Pulse: Respiratory Rate: Blood Pressure / Mean: Results/Orders My Orders Orders - ROVENSTINEEDNA DO Chest Pa/Lat (2 View) (06/27/19 22:05) Albuterol/Ipra Inhalation Soln (Duoneb I (06/27/19 22:15) Svn Small Volume Nebulizer (06/27/19 22:05) Vital Signs/I&O 12/13/19 12/13/19 12/13/19 22:01 22:01 22:23 Temp 36.8 36.8 Pulse 99 99 Resp 18 18 B/P (MAP) 121/95 (104) 121/95 (104) Pulse Ox 96 96 O2 Delivery Room Air Room Air Room Air Capillary Refill : Departure Impression Primary Impression: COPD with exacerbation Disposition: 01 HOME, SELF-CARE Condition: Improved Departure-Patient Inst. Referrals: MANASA WILCOX MD (PCP/Family) Primary Care Physician Patient Instructions: Exacerbation of COPD, Quitting Smoking for Older Adults EDNA KENT DO Jun 27, 2019 22:10 POS
[2019-06-27] MEDS ORDERED: RT-ALBUTEROL/IPRATROPIUM 3 ML (DUONEB) VIAL INH ONE (22:15)
[2019-06-27 22:23] VITALS: BP 121/95
--- NOTE | 2019-06-28 06:13 | Diagnostic Imaging Report ---
EXAMINATION: PA and lateral chest INDICATION: Cough. Comparison made to the previous study from June 21, 2019. FINDINGS: There is a left sided Port-A-Cath in place. This terminates within the SVC. There are prominent interstitial markings present within the lungs which appear stable when compared to the previous exam. There are no new regions of alveolar consolidation demonstrated. There is no effusion. There is no evidence of a pneumothorax. Heart size appears stable. No acute or suspicious osseous abnormality is evident. IMPRESSION: 1. Persistent prominence of the pulmonary interstitial markings. While there is no alveolar pneumonia, an underlying bronchitis is not excluded. No effusion. There is no pneumothorax. Pulmonary vascularity appears appropriate. Dictated by: Dictated on workstation # [id number]
== END 2019-06-27 22:23 | disposition home or self-care (01) ==
LOC: EDUNIT# 21:49 → ER FS 21:51
DX: J44.1 Chronic obstructive pulmonary disease with (acute) exacerbation (principal); I10 Essential (primary) hypertension; E78.00 Pure hypercholesterolemia, unspecified; E11.9 Type 2 diabetes mellitus without complications; J45.909 Unspecified asthma, uncomplicated; F41.9 Anxiety disorder, unspecified; F31.9 Bipolar disorder, unspecified; G47.30 Sleep apnea, unspecified; B19.20 Unspecified viral hepatitis C without hepatic coma; Z99.89 Dependence on other enabling machines and devices; Z87.442 Personal history of urinary calculi; Z85.51 Personal history of malignant neoplasm of bladder; Z85.528 Personal history of other malignant neoplasm of kidney; Z79.84 Long term (current) use of oral hypoglycemic drugs; Z77.22 Contact with and (suspected) exposure to environmental tobacco smoke (acute) (chronic); Z90.710 Acquired absence of both cervix and uterus; Z90.5 Acquired absence of kidney; Z90.89 Acquired absence of other organs; Z98.51 Tubal ligation status
CPT/HCPCS: 71046

== ENCOUNTER 2019-07-06 17:55 | Emergency (ER) | payer MEDICARE, MEDICAID ==
[~2019-07-06] VITALS: Ht 170.1 cm; Wt 108.4 kg
--- NOTE | 2019-07-06 18:06 | ED General ---
General Stated Complaint: HIGH BLOOD SUGAR History of Present Illness Date Seen by Provider: Jul 06, 2019 Time Seen by Provider: 18:06 Initial Comments 54-year-old female presents due to a high blood sugar. Patient reports she's a little dizzy doesn't feel good. Patient was in [facility] for about a week due to bronchitis. She got discharge about a week ago and is on steroids. Patient states when she checked her blood sugar home who was some around 500s. She adjusted her insulin pump and then came in to the ER to have it further evaluated. She does not complain of any vision changes, chest pain, shortness of breath, nausea vomiting or other systemic complaints. Allergies and Home Medications Allergies Coded Allergies: No Known Drug Allergies (Unverified , 05/06/19) Home Medications Atorvastatin Calcium 10 Mg Tablet, 10 MG PO HS, (Reported) Escitalopram Oxalate 10 Mg Tablet, 10 MG PO DAILY, (Reported) Ibuprofen 800 Mg Tablet, 800 MG PO Q8H PRN for PAIN-MILD, (Reported) Linagliptin 5 Mg Tablet, 5 MG PO DAILY, (Reported) Lisinopril 5 Mg Tablet, 5 MG PO DAILY, (Reported) Metformin HCl 750 Mg Tab.er.24h, 1,500 MG PO HS, (Reported) Nebivolol HCl 10 Mg Tab, 10 MG PO DAILY, (Reported) Olanzapine 10 Mg Tablet, 10 MG PO HS, (Reported) Tramadol HCl 50 Mg Tablet, 50 MG PO PRN, (Reported) Ziprasidone 80 Mg Cap, 160 MG PO HS, (Reported) Patient Home Medication List Home Medication List Reviewed: Yes Review of Systems Review of Systems Constitutional: No chills; dizziness; No fever Respiratory: No short of breath Cardiovascular: No chest pain Gastrointestinal: No abdominal pain, No nausea, No vomiting Genitourinary: no symptoms reported Musculoskeletal: no symptoms reported Skin: no symptoms reported Past Uderufn-Fyjyth-Khzltg Hx Past Med/Social Hx: Reviewed Nursing Past Med/Soc Hx Patient Social History Drug of Choice: marijuana Type Used: Cigarettes 2nd Hand Smoke Exposure: Yes Recent Hopitalizations: No Seasonal Allergies Seasonal Allergies: No Past Medical History Surgeries: Yes Abdominal, Hysterectomy, Nephrectomy, Tonsillectomy, Tubal Ligation Respiratory: Yes Asthma, COPD, Emphysema Currently Using CPAP: No (Has CPAP for JUAN ANTONIO but not tolerating) Currently Using BIPAP: No Cardiac: Yes High Cholesterol, Hypertension 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 had recent axilla abscess) Recent Skin Changes Blood Disorders: Yes (HEP C) Adverse Reaction/Blood Tranf: No Physical Exam Vital Signs Vital Signs - First Documented 07/06/19 18:00 Temp 36.1 Pulse 101 Resp 20 B/P (MAP) 99/77 (84) Pulse Ox 94 O2 Delivery Room Air Capillary Refill : Height, Weight, BMI Height: 5'7.00" Weight: 224lbs. 0.0oz. 101.466031mf; 38.00 BMI Method:Actual General Appearance: No Apparent Distress, WD/WN Respiratory: Chest Non Tender, Lungs Clear, No Accessory Muscle Use Cardiovascular: Regular Rate, Rhythm Gastrointestinal: Normal Bowel Sounds, Soft Back: Normal Inspection, No CVA Tenderness Extremity: Normal Capillary Refill, Normal Inspection Neurologic/Psychiatric: Alert, Oriented x3 Progress/Results/Core Measures Suspected Sepsis SIRS Temperature: Pulse: Respiratory Rate: Laboratory Tests 07/06/19 18:10: White Blood Count 14.4H Blood Pressure / Mean: Laboratory Tests 07/06/19 18:10: Creatinine 1.13, Platelet Count 246 Results/Orders Lab Results Laboratory Tests Test 07/06/19 18:00 07/06/19 18:03 07/06/19 18:10 07/06/19 18:25 Range/Units Urine Color YELLOW Urine Clarity CLEAR Urine pH 6.0 5-9 Urine Specific [place] 1.010 L 1.016-1.022 Urine Protein NEGATIVE NEGATIVE Urine Glucose (UA) 3+ H NEGATIVE Urine Ketones NEGATIVE NEGATIVE Urine Nitrite NEGATIVE NEGATIVE Urine Bilirubin NEGATIVE NEGATIVE Urine Urobilinogen 0.2 < = 1.0 MG/DL Urine Leukocyte Esterase NEGATIVE NEGATIVE Urine RBC (Auto) NEGATIVE NEGATIVE Urine RBC NONE /HPF Urine WBC NONE /HPF Urine Squamous Epithelial Cells 0-2 /HPF Urine Crystals NONE /LPF Urine Bacteria NONE /HPF Urine Casts NONE /LPF Urine Mucus NEGATIVE /LPF Urine Culture Indicated NO Glucometer 555 *H 70-110 MG/DL White Blood Count 14.4 H 4.3-11.0 10^3/uL Red Blood Count 4.18 L 4.35-5.85 10^6/uL Hemoglobin 11.3 L 11.5-16.0 G/DL Hematocrit 37 35-52 % Mean Corpuscular Volume 88 80-99 FL Mean Corpuscular Hemoglobin 27 25-34 PG Mean Corpuscular Hemoglobin Concent 31 L 32-36 G/DL Red Cell Distribution Width 18.4 H 10.0-14.5 % Platelet Count 246 130-400 10^3/uL Mean Platelet Volume 9.8 7.4-10.4 FL Neutrophils (%) (Auto) 87 H 42-75 % Lymphocytes (%) (Auto) 9 L 12-44 % Monocytes (%) (Auto) 3 0-12 % Eosinophils (%) (Auto) 0 0-10 % Basophils (%) (Auto) 0 0-10 % Neutrophils # (Auto) 12.6 H 1.8-7.8 X 10^3 Lymphocytes # (Auto) 1.3 1.0-4.0 X 10^3 Monocytes # (Auto) 0.4 0.0-1.0 X 10^3 Eosinophils # (Auto) 0.0 0.0-0.3 10^3/uL Basophils # (Auto) 0.0 0.0-0.1 10^3/uL Neutrophils % (Manual) 85 % Lymphocytes % (Manual) 13 % Monocytes % (Manual) 0 % Eosinophils % (Manual) 0 % Basophils % (Manual) 0 % Metamyelocytes % 1 % Band Neutrophils 1 % Anisocytosis SLIGHT Sodium Level 131 L 135-145 MMOL/L Potassium Level 3.9 3.6-5.0 MMOL/L Chloride Level 97 L 98-107 MMOL/L Carbon Dioxide Level 22 21-32 MMOL/L Anion Gap 12 5-14 MMOL/L Blood Urea Nitrogen 18 7-18 MG/DL Creatinine 1.13 0.60-1.30 MG/DL Estimat Glomerular Filtration Rate 51 BUN/Creatinine Ratio 16 Glucose Level 525 *H 70-105 MG/DL Calcium Level 8.3 L 8.5-10.1 MG/DL Blood Gas Puncture Site LT RAD Blood Gas Patient Temperature 36.0 Arterial Blood pH 7.49 H 7.37-7.43 Arterial Blood Partial Pressure CO2 34 L 35-45 MMHG Arterial Blood Partial Pressure O2 63 L 79-93 MMHG Arterial Blood HCO3 26 23-27 MMOL/L Arterial Blood Total CO2 26.9 21.0-31.0 MMOL/L Arterial Blood Oxygen Saturation 94 94-100 % Arterial Blood Base Excess 2.8 H -2.5-2.5 MMOL/L Edgard Test YES-POS Blood Gas Ventilator Setting NO Blood Gas Inspired Oxygen ROOM AIR Test 07/06/19 19:16 Range/Units Glucometer 372 H 70-110 MG/DL My Orders Orders - BASS,DEBBIE L DO Arterial Blood Gas (07/06/19 18:10) Basic Metabolic Panel (07/06/19 18:10) Cbc With Automated Diff (07/06/19 18:10) Ua Culture If Indicated (07/06/19 18:10) Ed Iv/Invasive Line Start (07/06/19 18:10) Ns Iv 1000 Ml (Sodium Chloride 0.9%) (07/06/19 18:10) Accucheck Stat ONCE (07/06/19 18:10) Ekg Tracing (07/06/19 18:10) Chest 1 View Ap/Pa Only (07/06/19 18:10) Manual Differential (07/06/19 18:10) Accucheck Stat ONCE (07/06/19 19:00) Insulin (Regular) Human (Humulin R (Per (07/06/19 19:30) Medications Given in ED Current Medications Medications Dose Ordered Sig/Yoselyn Route Start Time Stop Time Status Last Admin Dose Admin Insulin Human Regular 8 unit ONCE ONCE IV 07/06/19 19:30 07/06/19 19:31 DC 07/06/19 19:23 8 UNIT Vital Signs/I&O 07/06/19 18:00 Temp 36.1 Pulse 101 Resp 20 B/P (MAP) 99/77 (84) Pulse Ox 94 O2 Delivery Room Air Capillary Refill : Progress Note : Time: 20:14 Progress Note Patient's symptoms improved significantly with treatment. Her blood pressure responded accordingly. Patient is ready to be discharged home. She will be discharged home in stable condition. Departure Impression Primary Impression: Hyperglycemia Additional Impression: Diabetes mellitus type 2 Qualified Codes: E11.65 - Type 2 diabetes mellitus with hyperglycemia; Z79.4 - long-term (current) use of insulin Disposition: 01 HOME, SELF-CARE Condition: Improved Departure-Patient Inst. Referrals: MANASA WILCOX MD (PCP/Family) Primary Care Physician Patient Instructions: Hyperglycemia, Adult (DC) Add. Discharge Instructions: Emergency department focuses on treating and ruling out life-threatening diseases. Whenever possible, a diagnosis is given. However, most patients are given an impression based on their history, physical exam, and workup during your brief time in the ER. Information about probable diagnosis and other educational material has been provided. Please take the time to read and understand this information. It is very important that you follow up with a physician as discussed during the visit today. Failure to adhere to your follow-up instructions may lead to severe disability, injury, or so please make sure to keep your appointments or obtain one as requested. Please keep in mind the emergency department is not designed to your primary care or "family doctor" and nonurgent issues are best evaluated by an outpatient physician DEBBIE BASS DO Jul 06, 2019 18:06
[2019-07-06 18:25] LABS: BILIRUBIN,URINE NEGATIVE (NEGATIVE); CLARITY,URINE CLEAR; COLOR,URINE YELLOW; GLUCOSE, URINE (UA) 3+ (NEGATIVE); KETONES,URINE NEGATIVE (NEGATIVE); LEUKOCYTE ESTERASE ,URINE NEGATIVE (NEGATIVE); NITRITE,URINE NEGATIVE (NEGATIVE); PROTEIN,URINE NEGATIVE (NEGATIVE); SQUAMOUS EPITHELIAL CELL,UR 0-2 /HPF
[2019-07-06 18:31] LABS: BASOPHILS % (AUTO) 0 % (0-10); EOSINOPHILS % (AUTO) 0 % (0-10); HEMATOCRIT 37 % (35-52); HEMOGLOBIN 11.3 G/DL (11.5-16.0); LYMPHOCYTES # (AUTO) 1.3 X 10^3 (1.0-4.0); LYMPHOCYTES % (AUTO) 9 % (12-44); MEAN CORPUSCULAR HEMOGLOBIN 27 PG (25-34); MEAN CORPUSCULAR HGB CONC 31 G/DL (32-36); MEAN CORPUSCULAR VOLUME 88 FL (80-99); MEAN PLATELET VOLUME 9.8 FL (7.4-10.4); MONOCYTES # (AUTO) 0.4 X 10^3 (0.0-1.0); MONOCYTES % (AUTO) 3 % (0-12); NEUTROPHILS # (AUTO) 12.6 X 10^3 (1.8-7.8); NEUTROPHILS % (AUTO) 87 % (42-75); PLATELET COUNT 246 10^3/uL (130-400); RED CELL DISTRIBUTION WIDTH 18.4 % (10.0-14.5); WHITE BLOOD COUNT 14.4 10^3/uL (4.3-11.0)
[2019-07-06 18:38] LABS: ABG PCO2 34 MMHG (35-45); ABG PH 7.49 (7.37-7.43); ABG PO2 63 MMHG (79-93)
[2019-07-06 18:39] LABS: ABG BASE EXCESS 2.8 MMOL/L (-2.5-2.5); ABG OXYGEN SATURATION 94 % (94-100); ABG TCO2 26.9 MMOL/L (21.0-31.0); ALLENS TEST YES-POS; INSPIRED O2 ROOM AIR; VENTILATOR NO
[2019-07-06] MEDS: NS IV 1000 ML 1,000 ML IV SCH ×2 (18:43→19:22)
[2019-07-06 18:46] LABS: BAND NEUTROPHILS 1 %; BASOPHILS % (MANUAL) 0 %; EOSINOPHILS % (MANUAL) 0 %; LYMPHOCYTES % (MANUAL) 13 %; METAMYELOCYTES % 1 %; MONOCYTES % (MANUAL) 0 %; NEUTROPHILS % (MANUAL) 85 %
[2019-07-06 18:47] LABS: ANISOCYTOSIS SLIGHT
--- NOTE | 2019-07-06 18:47 | Diagnostic Imaging Report ---
INDICATION: Bronchitis, hyperglycemia. COMPARISON: 06/27/2019. FINDINGS: Patchy bilateral pulmonary opacities have increased from the prior suspicious for pneumonia. No effusion or pneumothorax. Central line via the left subclavian at the SVC stable. IMPRESSION: Worsened patchy bilateral 5 lobe infiltrates without pleural pathology. Dictated by: Dictated on workstation # [id number]
[2019-07-06 18:48] LABS: POTASSIUM 3.9 MMOL/L (3.6-5.0)
[2019-07-06 18:49] LABS: CALCIUM 8.3 MG/DL (8.5-10.1); CREATININE SERUM 1.13 MG/DL (0.60-1.30)
[2019-07-06] MEDS ORDERED: inSUlin (REGULAR) HUMAN 1 UNIT/0.01 ML (CHARGE PER UNIT) IV ONE ×2 (19:00→19:30)
[2019-07-06 20:32] VITALS: BP 118/62
== END 2019-07-06 20:32 | disposition home or self-care (01) ==
LOC: EDUNIT# 17:55 → ER FS 17:56
DX: E11.65 Type 2 diabetes mellitus with hyperglycemia (principal); J43.9 Emphysema, unspecified; I10 Essential (primary) hypertension; E11.9 Type 2 diabetes mellitus without complications; E78.00 Pure hypercholesterolemia, unspecified; F41.0 Panic disorder [episodic paroxysmal anxiety]; F31.9 Bipolar disorder, unspecified; B19.20 Unspecified viral hepatitis C without hepatic coma; Z79.4 Long term (current) use of insulin; Z85.51 Personal history of malignant neoplasm of bladder; Z85.528 Personal history of other malignant neoplasm of kidney; Z87.442 Personal history of urinary calculi; Z77.22 Contact with and (suspected) exposure to environmental tobacco smoke (acute) (chronic); Z90.710 Acquired absence of both cervix and uterus; Z90.5 Acquired absence of kidney; Z98.51 Tubal ligation status
CPT/HCPCS: 36415; 71045; 80048; 81000; 82805; 82962; 85007; 85027; 96361; 96374

== ENCOUNTER 2019-10-19 11:51 | Emergency (ER) | payer MEDICARE, MEDICAID ==
[~2019-10-19] VITALS: Ht 168 cm; Wt 108.4 kg
[~2019-10-19 11:51] MED LIST changes: -METF750T2 PO; +METF750T45 PO; -TRAM50TA2 PO; +TRM50T PO; +ZIPR80CA21; -ZIPR80CA23
[2019-10-19 11:57] VITALS: BP 145/111
--- NOTE | 2019-10-19 11:59 | NUR ---
During triage and patient interview by Dr. Kwan patient had numerous complaints including SOA, IV hurting, back pain, anxiousness, auditory hallucinations, being yelled at by her boyfriend, her not letting her in. Patient states that she is homicidial and suicidal and wants a mental health screening. Patient then states that she is not homicidial or suicidal, but she still wants to be screened medically.
--- NOTE | 2019-10-19 12:00 | NUR ---
After hours mental health called at this time. talked with Barbara regarding patients complaints and wished to be screened. Barbara stated that she didn't believe that she would meet criteria but she wanted to talk with a mental health screener to be certain.
--- OUTSIDE RECORDS SUMMARY | 2019-10-19 12:01 | XMS REPORT | Continuity of Care Document ---
Demographics Preferred Language Unknown Marital Status Unknown Judaism Affiliation Unknown Race Unknown Ethnic Group Unknown Author Organization Unknown Address Unknown Phone Unavailable Allergies Active Description Code Type Severity Reaction Onset Reported/Identified Relationship to Patient Clinical Status Yes No Known Medication Allergies Drug N/A N/A Yes NO KNOWN DRUG ALLERGIES UNKNOWN UNKNOWN Yes No Known Drug Allergies [id number] Drug Allergy Unknown N/A 05/06/2019 Medications Medication [...] IRVIN APRN V15 .82 TOBACCOISM 07/05/2010 BRANDEE MICA WASHER GLUER, HEATHER 278 .01 OBESITY MORBID 07/05/2010 BRANDEE MICA WASHER GLUER, HEATHER 380 .10 Infective Otitis Externa, Unspecified 07/05/2010 BRANDEE MICA WASHER GLUER, HEATHER V15 .82 TOBACCOISM 07/05/2010 BRANDEE MICA WASHER GLUER, HEATHER 278 .01 OBESITY MORBID 07/05/2010 BRANDEE MICA WASHER GLUER, HEATHER 380 .10 Infective Otitis Externa, Unspecified 07/05/2010 BRANDEE MICA WASHER GLUER, HEATHER V15 .82 TOBACCOISM 07/05/2010 BRANDEE MICA WASHER GLUER, HEATHER 278 .01 OBESITY MORBID 07/05/2010 BRANDEE MICA WASHER GLUER, HEATHER 380 .10 Infective Otitis Externa, Unspecified 07/05/2010 BRANDEE MICA WASHER GLUER, HEATHER V15 .82 TOBACCOISM 07/05/2010 BRANDEE MICA WASHER GLUER, HEATHER 278 .01 OBESITY MORBID 07/05/2010 BRANDEE MICA WASHER GLUER, HEATHER 380 .10 Infective Otitis Externa, Unspecified 07/05/2010 BRANDEE MICA WASHER GLUER, HEATHER V15 .82 TOBACCOISM 07/05/2010 GOVIND MICA WASHER GLUER, MARIANNA 278.01 OBESITY MORBID 07/05/2010 GOVIND MICA WASHER GLUER, MARIANNA 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, Unspecified 07/05/2010 GOVIND MICA WASHER GLUER, MARIANNA V15.82 TOBACCOISM 07/05/2010 GOVIND MICA WASHER GLUER, MARIANNA 278.01 OBESITY MORBID 07/05/2010 GOVIND MICA WASHER GLUER, MARIANNA 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, Unspecified 07/05/2010 GOVIND MICA WASHER GLUER, MARIANNA V15.82 TOBACCOISM 07/07/2010 BRANDEE MICA WASHER GLUER, HEATHER 280 .9 Anemia Hypochromic / Microcytic 07/07/2010 BRANDEE MICA WASHER GLUER, HEATHER 796 .2 Prehypertension 07/07/2010 BRANDEE MICA WASHER GLUER, HEATHER V04 .81 Influenza Vaccine 07/07/2010 BRANDEE MICA WASHER GLUER, HEATHER V68 .89 Encounters For Other Specified Administrative Purpose 07/07/2010 BRANDEE MICA WASHER GLUER, HEATHER V72 .31 Routine Pelvic Exam 07/07/2010 BRANDEE MICA WASHER GLUER, HEATHER 280 .9 Anemia Hypochromic / Microcytic 07/07/2010 BRANDEE MICA WASHER GLUER, HEATHER 796 .2 Prehypertension 07/07/2010 [facility] MICA WASHER GLUER, HEATHER V04 .81 Influenza Vaccine 07/07/2010 BRANDEE MICA WASHER GLUER, HEATHER V68 .89 Encounters For Other Specified Administrative Purpose 07/07/2010 BRANDEE MICA WASHER GLUER, HEATHER V72 .31 Routine Pelvic Exam 07/07/2010 BRANDEE MICA WASHER GLUER, HEATHER 280 .9 Anemia Hypochromic / Microcytic 07/07/2010 BRANDEE MICA WASHER GLUER, HEATHER 796 .2 Prehypertension 07/07/2010 BRANDEE MICA WASHER GLUER, HEATHER V04 .81 Influenza Vaccine 07/07/2010 BRANDEE MICA WASHER GLUER, HEATHER V68 .89 Encounters For Other Specified Administrative Purpose 07/07/2010 BRANDEE MICA WASHER GLUER, HEATHER V72 .31 Routine Pelvic Exam 07/07/2010 BRANDEE MICA WASHER GLUER, HEATHER 280 .9 Anemia Hypochromic / Microcytic 07/07/2010 BRANDEE MICA WASHER GLUER, HEATHER 796 .2 Prehypertension 07/07/2010 [facility] MICA WASHER GLUER, HEATHER V04 .81 Influenza Vaccine 07/07/2010 BRANDEE MICA WASHER GLUER, HEATHER V68 .89 Encounters For Other Specified Administrative Purpose 07/07/2010 BRANDEE MICA WASHER GLUER, HEATHER V72 .31 Routine Pelvic Exam 07/07/2010 [facility] MICA WASHER GLUER, HEATHER 280 .9 Anemia Hypochromic / Microcytic 07/07/2010 BRANDEE MICA WASHER GLUER, HEATHER 796 .2 Prehypertension 07/07/2010 BRANDEE MICA WASHER GLUER, HEATHER V04 .81 Influenza Vaccine 07/07/2010 BRANDEE MICA WASHER GLUER, HEATHER V68 .89 Encounters For Other Specified Administrative Purpose 07/07/2010 BRANDEE MICA WASHER GLUER, HEATHER V72 .31 Routine Pelvic Exam 07/07/2010 BRANDEE MICA WASHER GLUER, HEATHER 280 .9 Anemia Hypochromic / Microcytic 07/07/2010 BRANDEE MICA WASHER GLUER, HEATHER 796 .2 Prehypertension 07/07/2010 BRANDEE MICA WASHER GLUER, HEATHER V04 .81 Influenza Vaccine 07/07/2010 BRANDEE MICA WASHER GLUER, HEATHER V68 .89 Encounters For Other Specified Administrative Purpose 07/07/2010 BRANDEE MICA WASHER GLUER, HEATHER V72 .31 Routine Pelvic Exam 07/07/2010 BRANDEE MICA WASHER GLUER, HEATHER 280 .9 Anemia Hypochromic / Microcytic 07/07/2010 BRANDEE MICA WASHER GLUER, HEATHER 796 .2 Prehypertension 07/07/2010 BRANDEE MICA WASHER GLUER, HEATHER V04 .81 Influenza Vaccine 07/07/2010 BRANDEE MICA WASHER GLUER, HEATHER V68 .89 Encounters For Other Specified Administrative Purpose 07/07/2010 BRANDEE MICA WASHER GLUER, HEATHER V72 .31 Routine Pelvic Exam 07/07/2010 GOVIND MICA WASHER GLUER MARIANNA 28 0.9 Anemia Hypochromic / Microcytic 07/07/2010 GOVIND MICA WASHER GLUER MARIANNA 79 6.2 Prehypertension 07/07/2010 GOVIND MICA WASHER GLUER MARIANNA V04.81 Influenza Vaccine 07/07/2010 GOVIND MICA WASHER GLUER MARIANNA V68.89 Encounters For Other Specified Administrative Purpose 07/07/2010 GOVIND MICA WASHER GLUERENE V72.31 Routine Pelvic Exam 07/07/2010 GOVIND MICA WASHER GLUERSOFYAMARIANNA 28 0.9 Anemia Hypochromic / Microcytic 07/07/2010 GOVIND MICA WASHER GLUERENE 79 6.2 Prehypertension 07/07/2010 GOVIND MICA WASHER GLUER MARIANNA V04.81 Influenza Vaccine 07/07/2010 GOVIND MICA WASHER GLUER MARIANNA V68.89 Encounters For Other Specified Administrative Purpose 07/07/2010 GOVIND MICA WASHER GLUER MARIANNA V72.31 Routine Pelvic Exam 10/20/2010 [facility] MICA WASHER GLUER, HEATHER 112 .1 Candidiasis, Of Vulva And Vagina 10/20/2010 [facility] MICA WASHER GLUER, HEATHER 599 .0 Uti 10/20/2010 [facility] MICA WASHER GLUER, HEATHER 112 .1 Candidiasis, Of Vulva And Vagina 10/20/2010 [facility] MICA WASHER GLUER, HEATHER 599 .0 Uti 10/20/2010 [facility] MICA WASHER GLUER, HEATHER 112 .1 Candidiasis, Of Vulva And Vagina 10/20/2010 BRANDEE MICA WASHER GLUER, HEATHER 599 .0 Uti 10/20/2010 [facility] MICA WASHER GLUER, HEATHER 112 .1 Candidiasis, Of Vulva And Vagina 10/20/2010 [facility] MICA WASHER GLUER, HEATHER 599 .0 Uti 10/20/2010 [facility] MICA WASHER GLUER, HEATHER 112 .1 Candidiasis, Of Vulva And Vagina 10/20/2010 BRANDEE MICA WASHER GLUER, HEATHER 599 .0 Uti 10/20/2010 BRANDEE MICA WASHER GLUER, HEATHER 112 .1 Candidiasis, Of Vulva And Vagina 10/20/2010 BRANDEE MICA WASHER GLUER, HEATHER 599 .0 Uti 10/20/2010 BRANDEE MICA WASHER GLUER, HEATHER 112 .1 Candidiasis, Of Vulva And Vagina 10/20/2010 BRANDEE MICA WASHER GLUER, HEATHER 599 .0 Uti 10/20/2010 GOVIND MICA WASHER GLUER, MARIANNA 11 2.1 Candidiasis, Of Vulva And Vagina 10/20/2010 GOVIND MICA WASHER GLUER, MARIANNA 59 9.0 Uti 10/20/2010 GOVIND MICA WASHER GLUER, MARIANNA 11 2.1 Candidiasis, Of Vulva And Vagina 10/20/2010 GOVIND MICA WASHER GLUER, MARIANNA 59 9.0 Uti 10/24/2010 BRANDEE MICA WASHER GLUER, HEATHER 250 .00 DIABETES MELLITUS TYPE 2 10/24/2010 BRANDEE MICA WASHER GLUER, HEATHER 466 .0 Bronchitis, Acute 10/24/2010 [facility] MICA WASHER GLUER, HEATHER 496 PULMONARY OBSTRUCTIVE DISORDERS 10/24/2010 BRANDEE MICA WASHER GLUER, HEATHER 250 .00 DIABETES MELLITUS TYPE 2 10/24/2010 BRANDEE MICA WASHER GLUER, HEATHER 466 .0 Bronchitis, Acute 10/24/2010 BRANDEE MICA WASHER GLUER, HEATHER 496 PULMONARY OBSTRUCTIVE DISORDERS 10/24/2010 BRANDEE MICA WASHER GLUER, HEATHER 250 .00 DIABETES MELLITUS TYPE 2 10/24/2010 BRANDEE MICA WASHER GLUER, HEATHER 466 .0 Bronchitis, Acute 10/24/2010 BRANDEE MICA WASHER GLUER, HEATHER 496 PULMONARY OBSTRUCTIVE DISORDERS 10/24/2010 BRANDEE MICA WASHER GLUER, HEATHER 250 .00 DIABETES MELLITUS TYPE 2 10/24/2010 BRANDEE MICA WASHER GLUER, HEATHER 466 .0 Bronchitis, Acute 10/24/2010 BRANDEE MICA WASHER GLUER, HEATHER 496 PULMONARY OBSTRUCTIVE DISORDERS 10/24/2010 BRANDEE MICA WASHER GLUER, HEATHER 250 .00 DIABETES MELLITUS TYPE 2 10/24/2010 BRANDEE MICA WASHER GLUER, HEATHER 466 .0 Bronchitis, Acute 10/24/2010 BRANDEE MICA WASHER GLUER, HEATHER 496 PULMONARY OBSTRUCTIVE DISORDERS 10/24/2010 BRANDEE MICA WASHER GLUER, HEATHER 250 .00 DIABETES MELLITUS TYPE 2 10/24/2010 BRANDEE MICA WASHER GLUER, HEATHER 466 .0 Bronchitis, Acute 10/24/2010 BRANDEE MICA WASHER GLUER, HEATHER 496 PULMONARY OBSTRUCTIVE DISORDERS 10/24/2010 BRANDEE MICA WASHER GLUER, HEATHER 250 .00 DIABETES MELLITUS TYPE 2 10/24/2010 BRANDEE MICA WASHER GLUER, HEATHER 466 .0 Bronchitis, Acute 10/24/2010 BRANDEE MICA WASHER GLUER, HEATHER 496 PULMONARY OBSTRUCTIVE DISORDERS 10/24/2010 GOVIND MICA WASHER GLUER, MARIANNA 250.00 DIABETES MELLITUS TYPE 2 10/24/2010 GOVIND MICA WASHER GLUER, MARIANNA 46 6.0 Bronchitis, Acute 10/24/2010 GOVIND MICA WASHER GLUER, MARIANNA 49 6 PULMONARY OBSTRUCTIVE DISORDERS 10/24/2010 GOVIND MICA WASHER GLUER, MARIANNA 250.00 DIABETES MELLITUS TYPE 2 10/24/2010 GOVIND MICA WASHER GLUER, MARIANNA 46 6.0 Bronchitis, Acute 10/24/2010 GOVIND MICA WASHER GLUER, MARIANNA 49 6 PULMONARY OBSTRUCTIVE DISORDERS 05/12/2011 [facility] MICA WASHER GLUER, HEATHER 703 .0 Ingrowing Nail 05/12/2011 [facility] MICA WASHER GLUER, HEATHER 726 .91 EXOSTOSIS OF UNSPECIFIED SITE 05/12/2011 [facility] MICA WASHER GLUER, HEATHER 703 .0 Ingrowing Nail 05/12/2011 BRANDEE MICA WASHER GLUER, HEATHER 726 .91 EXOSTOSIS OF UNSPECIFIED SITE 05/12/2011 [facility] MICA WASHER GLUER, HEATHER 703 .0 Ingrowing Nail 05/12/2011 BRANDEE MICA WASHER GLUER, HEATHER 726 .91 EXOSTOSIS OF UNSPECIFIED SITE 05/12/2011 [facility] MICA WASHER GLUER, HEATHER 703 .0 Ingrowing Nail 05/12/2011 BRANDEE MICA WASHER GLUER, HEATHER 726 .91 EXOSTOSIS OF UNSPECIFIED SITE 05/12/2011 BRANDEE MICA WASHER GLUER, HEATHER 703 .0 Ingrowing Nail 05/12/2011 BRANDEE MICA WASHER GLUER, HEATHER 726 .91 EXOSTOSIS OF UNSPECIFIED SITE 05/12/2011 BRANDEE MICA WASHER GLUER, HEATHER 703 .0 Ingrowing Nail 05/12/2011 BRANDEE MICA WASHER GLUER, HEATHER 726 .91 EXOSTOSIS OF UNSPECIFIED SITE 05/12/2011 BRANDEE MICA WASHER GLUER, HEATHER 703 .0 Ingrowing Nail 05/12/2011 BRANDEE MICA WASHER GLUER, HEATHER 726 .91 EXOSTOSIS OF UNSPECIFIED SITE 05/12/2011 GOVIND MICA WASHER GLUER, MARIANNA 70 3.0 Ingrowing Nail 05/12/2011 GOVIND MICA WASHER GLUER, MARIANNA 726.91 EXOSTOSIS OF UNSPECIFIED SITE 05/12/2011 GOVIND MICA WASHER GLUER, MARIANNA 70 3.0 Ingrowing Nail 05/12/2011 GOVIND MICA WASHER GLUER, MARIANNA 726.91 EXOSTOSIS OF UNSPECIFIED SITE 06/02/2011 BRANDEE MICA WASHER GLUER, HEATHER 078 .12 Plantar Wart 06/02/2011 BRANDEE MICA WASHER GLUER, HEATHER 078 .12 Plantar Wart 06/02/2011 BRANDEE MICA WASHER GLUER, HEATHER 078 .12 Plantar Wart 06/02/2011 BRANDEE MICA WASHER GLUER, HEATHER 078 .12 Plantar Wart 06/02/2011 BRANDEE MICA WASHER GLUER, HEATHER 078 .12 Plantar Wart 06/02/2011 BRANDEE MICA WASHER GLUER, HEATHER 078 .12 Plantar Wart 06/02/2011 BRANDEE MICA WASHER GLUER, HEATHER 078 .12 Plantar Wart 06/02/2011 GOVIND MICA WASHER GLUER, MARIANNA 078.12 Plantar Wart 06/02/2011 GOVIND MICA WASHER GLUER, MARIANNA 078.12 Plantar Wart 07/05/2011 BRANDEE MICA WASHER GLUER, HEATHER 466 .0 ACUTE BRONCHITIS 07/05/2011 BRANDEE MICA WASHER GLUER, HEATHER 466 .0 ACUTE BRONCHITIS 07/05/2011 BRANDEE MICA WASHER GLUER, HEATHER 466 .0 ACUTE BRONCHITIS 07/05/2011 BRANDEE MICA WASHER GLUER, HEATHER 466 .0 ACUTE BRONCHITIS 07/05/2011 BRANDEE MICA WASHER GLUER, HEATHER 466 .0 ACUTE BRONCHITIS 07/05/2011 BRANDEE MICA WASHER GLUER, HEATHER 466 .0 ACUTE BRONCHITIS 07/05/2011 BRANDEE MICA WASHER GLUER, HEATHER 466 .0 ACUTE BRONCHITIS 07/05/2011 GOVIND MICA WASHER GLUER, MARIANNA 46 6.0 ACUTE BRONCHITIS 07/05/2011 GOVIND MICA WASHER GLUER, MARIANNA 46 6.0 ACUTE BRONCHITIS 11/20/2011 BRANDEE MICA WASHER GLUER, HEATHER 682 .9 CELLULITIS 11/20/2011 BRANDEE MICA WASHER GLUER, HEATHER 682 .9 CELLULITIS 11/20/2011 BRANDEE MICA WASHER GLUER, HEATHER 682 .9 CELLULITIS 11/20/2011 BRANDEE MICA WASHER GLUER, HEATHER 682 .9 CELLULITIS 11/20/2011 BRANDEE MICA WASHER GLUER, HEATHER 682 .9 CELLULITIS 11/20/2011 BRANDEE MICA WASHER GLUER, HEATHER 682 .9 CELLULITIS 11/20/2011 BRANDEE MICA WASHER GLUER, HEATHER 682 .9 CELLULITIS 11/20/2011 GOVIND MICA WASHER GLUER, MARIANNA 68 2.9 CELLULITIS 11/20/2011 GOVIND MICA WASHER GLUER, MARIANNA 68 2.9 CELLULITIS 12/22/2011 BRANDEE MICA WASHER GLUER, HEATHER 401 .1 ESSENTIAL HYPERTENSION BENIGN 12/22/2011 BRANDEE MICA WASHER GLUER, HEATHER 401 .1 ESSENTIAL HYPERTENSION BENIGN 12/22/2011 BRANDEE MICA WASHER GLUER, HEATHER 401 .1 ESSENTIAL HYPERTENSION BENIGN 12/22/2011 BRANDEE MICA WASHER GLUER, HEATHER 401 .1 ESSENTIAL HYPERTENSION BENIGN 12/22/2011 [facility] MICA WASHER GLUER, HEATHER 401 .1 ESSENTIAL HYPERTENSION BENIGN 12/22/2011 [facility] MICA WASHER GLUER, HEATHER 401 .1 ESSENTIAL HYPERTENSION BENIGN 12/22/2011 [facility] MICA WASHER GLUER, HEATHER 401 .1 ESSENTIAL HYPERTENSION BENIGN 12/22/2011 GOVIND MICA WASHER GLUER, MARIANNA 40 1.1 ESSENTIAL HYPERTENSION BENIGN 12/22/2011 GOVIND MICA WASHER GLUER, MARIANNA 40 1.1 ESSENTIAL HYPERTENSION BENIGN 04/09/2012 [facility] KYLE, HEATHER 272 .2 HYPERLIPIDEMIA 04/09/2012 [facility] MICA WASHER GLUERHEATHER Sunshine V04 .81 Need For Prophylactic Vaccination And Inoculation Against Influenza 04/09/2012 [facility] HEATHER WRIGHT 272 .2 HYPERLIPIDEMIA 04/09/2012 [facility] HEATHER WRIGHT V04 .81 Need For Prophylactic Vaccination And Inoculation Against Influenza 04/09/2012 BRANDEE HEATHER WRIGHT 272 .2 HYPERLIPIDEMIA 04/09/2012 [facility] MICA WASHER GLUER, HEATHER V04 .81 Need For Prophylactic Vaccination And Inoculation Against Influenza 04/09/2012 BRANDEE HEATHER WRIGHT 272 .2 HYPERLIPIDEMIA 04/09/2012 [facility] MICA WASHER GLUERHEATHER Sunshine V04 .81 Need For Prophylactic Vaccination And Inoculation Against Influenza 04/09/2012 BRANDEE HEATHER WRIGHT 272 .2 HYPERLIPIDEMIA 04/09/2012 [facility] HEATHER WRIGHT V04 .81 Need For Prophylactic Vaccination And Inoculation Against Influenza 04/09/2012 BRANDEE HEATHER WRIGHT 272 .2 HYPERLIPIDEMIA 04/09/2012 BRANDEE MICA WASHER GLUER, HEATHER V04 .81 Need For Prophylactic Vaccination And Inoculation Against Influenza 04/09/2012 BRANDEE MICA WASHER GLUER, HEATHER 272 .2 HYPERLIPIDEMIA 04/09/2012 BRANDEE MICA WASHER GLUER, HEATHER V04 .81 Need For Prophylactic Vaccination And Inoculation Against Influenza 04/09/2012 GOVIND MICA WASHER GLUERMARIANNA Sunshine 27 2.2 HYPERLIPIDEMIA 04/09/2012 GOVIND MICA WASHER GLUERMARIANNA Sunshine V04.81 Need For Prophylactic Vaccination And Inoculation Agai nst Influenza 04/09/2012 GOVIND MICA WASHER GLUERMARIANNA Sunshine 27 2.2 HYPERLIPIDEMIA 04/09/2012 GOVIND MICA WASHER GLUERMARIANNA V04.81 Need For Prophylactic Vaccination And Inoculation Agai nst Influenza 05/14/2012 BRANDEE MICA WASHER GLUER, HEATHER 682 .9 Cellulitis/abscess 05/14/2012 BRANDEE MICA WASHER GLUER, HEATHER 682 .9 Cellulitis/abscess 05/14/2012 BRANDEE MICA WASHER GLUER, HEATHER 682 .9 Cellulitis/abscess 05/14/2012 BRANDEE MICA WASHER GLUER, HEATHER 682 .9 Cellulitis/abscess 05/14/2012 BRANDEE MICA WASHER GLUER, HEATHER 682 .9 Cellulitis/abscess 05/14/2012 BRANDEE MICA WASHER GLUER, HEATHER 682 .9 Cellulitis/abscess 05/14/2012 BRANDEE MICA WASHER GLUER, HEATHER 682 .9 Cellulitis/abscess 05/14/2012 GOVIND MICA WASHER GLUERMARIANNA Sunshine 68 2.9 Cellulitis/abscess 05/14/2012 MARIANNA FAUST APRN 68 2.9 Cellulitis/abscess 06/24/2012 BRAN[facility]E MICA WASHER GLUER, HEATHER 112 .1 Candidiasis, Of Vulva And Vagina 06/24/2012 BRANDEE MICA WASHER GLUER, HEATHER 112 .1 Candidiasis, Of Vulva And Vagina 06/24/2012 BRAN[facility]E MICA WASHER GLUERHEATHER 112 .1 Candidiasis, Of Vulva And Vagina 06/24/2012 BRANDEE MICA WASHER GLUER, HEATHER 112 .1 Candidiasis, Of Vulva And Vagina 06/24/2012 BRANDEE MICA WASHER GLUER, HEATHER 112 .1 Candidiasis, Of Vulva And Vagina 06/24/2012 BRANDEE MICA WASHER GLUERHEATHER 112 .1 Candidiasis, Of Vulva And Vagina 06/24/2012 BRANDEE MICA WASHER GLUER, HEATHER 112 .1 Candidiasis, Of Vulva And Vagina 06/24/2012 GOVIND MICA WASHER GLUER MARIANNA 11 2.1 Candidiasis, Of Vulva And Vagina 06/24/2012 GOVIND MICA WASHER GLUER, MARIANNA 11 2.1 Candidiasis, Of Vulva And Vagina 06/28/2012 BRANDEE MICA WASHER GLUER, HEATHER 110 .1 Onychomycosis 06/28/2012 BRANDEE MICA WASHER GLUER, HEATHER 703 .8 Other Specified Diseases Of Nail 06/28/2012 BRANDEE MICA WASHER GLUER, HEATHER 110 .1 Onychomycosis 06/28/2012 BRANDEE MICA WASHER GLUER, HEATHER 703 .8 Other Specified Diseases Of Nail 06/28/2012 BRANDEE MICA WASHER GLUER, HEATHER 110 .1 Onychomycosis 06/28/2012 BRANDEE MICA WASHER GLUER, HEATHER 703 .8 Other Specified Diseases Of Nail 06/28/2012 BRANDEE MICA WASHER GLUER, HEATHER 110 .1 Onychomycosis 06/28/2012 BRANDEE MICA WASHER GLUER, HEATHER 703 .8 Other Specified Diseases Of Nail 06/28/2012 BRANDEE MICA WASHER GLUER, HEATHER 110 .1 Onychomycosis 06/28/2012 BRANDEE MICA WASHER GLUER, HEATHER 703 .8 Other Specified Diseases Of Nail 06/28/2012 BRANDEE MICA WASHER GLUER, HEATHER 110 .1 Onychomycosis 06/28/2012 BRANDEE MICA WASHER GLUER, HEATHER 703 .8 Other Specified Diseases Of Nail 06/28/2012 BRANDEE MICA WASHER GLUER, HEATHER 110 .1 Onychomycosis 06/28/2012 BRANDEE MICA WASHER GLUER, HEATHER 703 .8 Other Specified Diseases Of Nail 06/28/2012 GOVIND MICA WASHER GLUER MARIANNA 11 0.1 Onychomycosis 06/28/2012 GOVIND MICA WASHER GLUER, MARIANNA 70 3.8 Other Specified Diseases Of Nail 06/28/2012 GOVIND MICA WASHER GLUER MARIANNA 11 0.1 Onychomycosis 06/28/2012 GOVIND MICA WASHER GLUER, MARIANNA 70 3.8 Other Specified Diseases Of Nail 08/21/2012 BRANDEE MICA WASHER GLUER, HEATHER 682 .9 Cellulitis/abscess 08/21/2012 BRANDEE MICA WASHER GLUER, HEATHER V72 .31 Gynecological Exam 08/21/2012 BRANDEE MICA WASHER GLUER, HEATHER 682 .9 Cellulitis/abscess 08/21/2012 BRANDEE MICA WASHER GLUER, HEATHER V72 .31 Gynecological Exam 08/21/2012 BRANDEE MICA WASHER GLUER, HEATHER 682 .9 Cellulitis/abscess 08/21/2012 BRANDEE MICA WASHER GLUER, HEATHER V72 .31 Gynecological Exam 08/21/2012 BRANDEE MICA WASHER GLUER, HEATHER 682 .9 Cellulitis/abscess 08/21/2012 BRANDEE MICA WASHER GLUER, HEATHER V72 .31 Gynecological Exam 08/21/2012 BRANDEE MICA WASHER GLUER, HEATHER 682 .9 Cellulitis/abscess 08/21/2012 BRANDEE MICA WASHER GLUER, HAETHER V72 .31 Gynecological Exam 08/21/2012 BRANDEE MICA WASHER GLUER, HEATHER 682 .9 Cellulitis/abscess 08/21/2012 BRANDEE MICA WASHER GLUER, HEATHER V72 .31 Gynecological Exam 08/21/2012 BRANDEE MICA WASHER GLUER, HEATHER 682 .9 Cellulitis/abscess 08/21/2012 BRANDEE MICA WASHER GLUER, HEATHER V72 .31 Gynecological Exam 08/21/2012 GOVIND MICA WASHER GLUER, MARIANNA 68 2.9 Cellulitis/abscess 08/21/2012 GOVIND MICA WASHER GLUER, MARIANNA V72.31 Gynecological Exam 08/21/2012 GOVIND MICA WASHER GLUER, MARIANNA 68 2.9 Cellulitis/abscess 08/21/2012 GOVIND MICA WASHER GLUER, MARIANNA V72.31 Gynecological Exam 10/08/2012 [facility] MICA WASHER GLUER, HEATHER 466 .0 Bronchitis, Acute 10/08/2012 BRANDEE MICA WASHER GLUER, HEATHER 466 .0 Bronchitis, Acute 10/08/2012 [facility] MICA WASHER GLUER, HEATHER 466 .0 Bronchitis, Acute 10/08/2012 BRANDEE MICA WASHER GLUER, HEATHER 466 .0 Bronchitis, Acute 10/08/2012 BRANDEE MICA WASHER GLUER, HEATHER 466 .0 Bronchitis, Acute 10/08/2012 BRANDEE MICA WASHER GLUER, HEATHER 466 .0 Bronchitis, Acute 10/08/2012 BRANDEE MICA WASHER GLUER, HEATHER 466 .0 Bronchitis, Acute 10/08/2012 GOVIND MICA WASHER GLUER, MARIANNA 46 6.0 Bronchitis, Acute 10/08/2012 GOVIND MICA WASHER GLUER, MARIANNA 46 6.0 Bronchitis, Acute 12/05/2012 [facility] MICA WASHER GLUER, HEATHER 599 .0 Uti 12/05/2012 BRANDEE MICA WASHER GLUER, HEATHER 599 .0 Uti 12/05/2012 BRAN[facility]E MICA WASHER GLUER, HEATHER 599 .0 Uti 12/05/2012 BRAN[facility]E MICA WASHER GLUER, HEATHER 599 .0 Uti 12/05/2012 BRAN[facility]E MICA WASHER GLUER, HEATHER 599 .0 Uti 12/05/2012 BRANDEE MICA WASHER GLUER, HEATHER 599 .0 Uti 12/05/2012 BRANDEE MICA WASHER GLUER, HEATHER 599 .0 Uti 12/05/2012 GOVIND MICA WASHER GLUER, MARIANNA 59 9.0 Uti 12/05/2012 GOVIND MICA WASHER GLUER, MARIANNA 59 9.0 Uti 05/21/2013 BRANDEE MICA WASHER GLUER, HEATHER 285 .9 ANEMIA, UNSPECIFIED 05/21/2013 BRANDEE MICA WASHER GLUER, HEATHER 285 .9 ANEMIA, UNSPECIFIED 05/21/2013 BRANDEE MICA WASHER GLUER, HEATHER 285 .9 ANEMIA, UNSPECIFIED 05/21/2013 BRANDEE MICA WASHER GLUER, HEATHER 285 .9 ANEMIA, UNSPECIFIED 05/21/2013 BRANDEE MICA WASHER GLUER, HEATHER 285 .9 ANEMIA, UNSPECIFIED 05/21/2013 BRANDEE MICA WASHER GLUER, HEATHER 285 .9 ANEMIA, UNSPECIFIED 05/21/2013 BRANDEE MICA WASHER GLUER, HEATHER 285 .9 ANEMIA, UNSPECIFIED 05/21/2013 GOVIND MICA WASHER GLUER, MARIANNA 28 5.9 ANEMIA, UNSPECIFIED 08/07/2013 BRANDEE MICA WASHER GLUER, HEATHER 682 .5 CELLULITIS AND ABSCESS OF BUTTOCK 08/07/2013 BRANDEE MICA WASHER GLUER, HEATHER 682 .5 CELLULITIS AND ABSCESS OF BUTTOCK 08/07/2013 BRANDEE MICA WASHER GLUER, HEATHER 682 .5 CELLULITIS AND ABSCESS OF BUTTOCK 08/07/2013 BRANDEE MICA WASHER GLUER, HEATHER 682 .5 CELLULITIS AND ABSCESS OF BUTTOCK 08/07/2013 BRANDEE MICA WASHER GLUER, HEATHER 682 .5 CELLULITIS AND ABSCESS OF BUTTOCK 08/07/2013 BRANDEE MICA WASHER GLUER, HEATHER 682 .5 CELLULITIS AND ABSCESS OF BUTTOCK 08/07/2013 BRANDEE MICA WASHER GLUER, HEATHER 682 .5 CELLULITIS AND ABSCESS OF BUTTOCK 12/12/2013 BRANDEE MICA WASHER GLUER, HEATHER 250 .02 DIABETES MELLITUS WITHOUT MENTION [...] 1 PERSONAL HISTORY OF ANTINEOPLASTIC CHEMO 10/21/2018 DAINE DELCID MD, Ot D63.8 ANEMIA IN OTHER [...] PERSONAL HISTORY OF ANTINEOPLASTIC CHEMO 10/31/2018 DIANE EDLCID MD, Ot Z98.5 1 TUBAL LIGATION STATUS [...] DO Ot R06.02 SHORTNESS OF BREATH 11/08/2018 AJME CULVER DO T Ot Z87.440 PERSONAL HISTORY [...] Z98.5 1 TUBAL LIGATION STATUS 12/21/2018 JERI BATMEAN, MANASA Funes Ot R10.84 GENERALIZED [...] Funes Ot R10.84 GENERALIZED ABDOMINAL PAIN 01/02/2019 HOUSTON DOJAZIEL Ot B37.49 OTHER UROGENITAL CANDIDIASIS 01/02/2019 WONG DO, JAZIEL Ot E11.9 TYPE 2 DIABETES MELLITUS WITHOUT COMPLIC 01/02/2019 WONG DO, JAZIEL Ot I10 ESSENTIAL (PRIMARY) HYPERTENSION 01/02/2019 HOUSTON , JAZIEL Ot J45.909 UNSPECIFIED ASTHMA, UNCOMPLICATED [...] JAZIEL Ot Z98.51 TUBAL LIGATION STATUS 01/04/2019 HOUSTON DO, JAZIEL Ot E11.9 TYPE 2 DIABETES MELLITUS WITHOUT COMPLIC 01/04/2019 HOUSTON DO, JAZIEL Ot I10 ESSENTIAL (PRIMARY) HYPERTENSION 01/04/2019 HOUSTON DO, JAZIEL Ot J45.909 UNSPECIFIED ASTHMA, UNCOMPLICATED [...] Ot B37.41 CANDIDAL CYSTITIS AND URETHRITIS 01/12/2019 POAL WEBB DO Ot E11 .9 TYPE 2 [...] [place] DO Ot Z79.8 99 OTHER [employer] SPECIALIST (CURRENT) DRUG THERAPY 03/24/2019 MIKAYLA DE LOS [...] [place] SANTOS DO Ot Z79.8 99 OTHER ALF (CURRENT) DRUG THERAPY 03/27/2019 MIKAYLA DE LOS SANTOS DO Ot Z83.3 FAMILY HISTORY OF DIABETES MELLITUS 03/27/2019 MIKAYLA DE LOS ASNTOS DO Ot Z90.7 10 ACQUIRED ABSENCE OF [...] 04/14/2019 LUCÍA FUENTES MD Ot Z79. 84 [employer] SPECIALIST (CURRENT) USE OF ORAL HYPOGLYC 04/14/2019 LUCÍA [...] 04/16/2019 LUCÍA FUENTES MD, Ot Z79. 84 [employer] SPECIALIST (CURRENT) USE OF ORAL HYPOGLYC 04/16/2019 LUCÍA [...] [place]ANT[place] DO Ot Z79.8 99 OTHER ALF (CURRENT) DRUG THERAPY 06/02/2019 MIKAYLA DE LOS SANTOS DO Ot Z83.3 FAMILY HISTORY OF DIABETES MELLITUS 06/02/2019 MIKAYLA DE LOS SANTOS DO Ot Z90.7 10 ACQUIRED ABSENCE OF BOTH CERVIX AND UTER 06/05/2019 MIKAYLA DE LOS SANTOS DO Ot D12.2 BENIGN NEOPLASM OF ASCENDING COLON 06/05/2019 MIKAYLA DE LOS ASNTOS DO Ot D12.5 BENIGN NEOPLASM OF SIGMOID [...] MIKAYLA DE LOS SANTOS DO Ot Z79.1 [employer]DS [employer]ORATION SPECIALIST (CURRENT) USE OF NON-STEROIDAL 06/05/2019 MIKAYLA DE LOS SANTOS DO Ot Z79.8 99 OTHER ALF (CURRENT) DRUG THERAPY 06/05/2019 MIKAYLA DE LOS [...] JAZIEL Ot J45.909 UNSPECIFIED ASTHMA, UNCOMPLICATED 06/13/2019 [facility], JAZIEL Ot Z79.84 [employer]ORATION SPECIALIST (CURRENT) USE OF ORAL HYPOGLYC 06/13/2019 [facility], JAZIEL Ot Z85.528 PERSONAL HISTORY OF OTHER MALIGNANT NEOP 06/13/2019 [facility], JAZIEL Ot Z87.442 PERSONAL HISTORY OF URINARY CALCULI 06/13/2019 [facility], JAZIEL Ot Z90.710 ACQUIRED ABSENCE OF BOTH CERVIX AND UTER 06/13/2019 [facility], JAZIEL Ot Z90.89 ACQUIRED ABSENCE OF OTHER ORGANS 06/13/2019 [facility], JAZIEL Ot Z98.51 TUBAL LIGATION STATUS 06/17/2019 [facility], JAZIEL Ot B19.20 UNSPECIFIED VIRAL HEPATITIS C WITHOUT HE 06/17/2019 [facility], JAZIEL Ot E11.9 TYPE 2 DIABETES MELLITUS WITHOUT COMPLIC 06/17/2019 [facility], JAZIEL Ot F17.210 NICOTINE DEPENDENCE, CIGARETTES, UNCOMPL 06/17/2019 [facility], JAZIEL Ot F39 UNSPECIFIED MOOD [AFFECTIVE] DISORDER 06/17/2019 [facility], JAZIEL Ot F41.0 PANIC DISORDER [EPISODIC PAROXYSMAL ANXI 06/17/2019 [place] DO, JAZIEL Ot I10 ESSENTIAL (PRIMARY) HYPERTENSION 06/17/2019 [facility], JAZIEL Ot J45.909 UNSPECIFIED ASTHMA, UNCOMPLICATED 06/17/2019 [facility], JAZIEL Ot Z79.84 [employer] SPECIALIST (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 84 [employer]IST (CURRENT) USE OF ORAL HYPOGLYC 06/25/2019 MARK [...] MD Ot I10 ESSENTIAL (PRIMARY) HYPERTENSION 06/27/2019 AMRK BOJORQUEZ MD Ot J40 BRONCHITIS, NOT SPECIFIED ACUTE OR CH 06/27/2019 MARK BOJORQUEZ MD Ot J44. 0 CHR OBSTRUCTIVE PULMON DISEASE WITH (ACU 06/27/2019 MARK BOJORQUEZ MD Ot R06. 02 SHORTNESS OF BREATH 06/27/2019 MARK BOJORQUEZ MD Ot Z77. 22 CNTCT W AND EXPSR TO ENVIRON TOBACCO SMO 06/27/2019 MARK BOJORQUEZ MD Ot Z79. 84 [employer]IST (CURRENT) USE OF ORAL HYPOGLYC 06/27/2019 MARK [...] Ot Z98. 51 TUBAL LIGATION STATUS 06/27/2019 ROVENSTINE DOEDNA Ot B19.20 UNSPECIFIED VIRAL HEPATITIS C WITHOUT HE 06/27/2019 ROVENSTINE DOEDNA Ot E11.9 TYPE 2 DIABETES MELLITUS WITHOUT COMPLIC 06/27/2019 ROVENSTINE DOEDNA Ot E78.00 PURE HYPERCHOLESTEROLEMIA, UNSPECIFIED 06/27/2019 ROVENSTINE DOEDNA Ot F31.9 BIPOLAR DISORDER, UNSPECIFIED 06/27/2019 ROVENSTINE DO, EDNA Hanna Ot F41.9 ANXIETY DISORDER, UNSPECIFIED 06/27/2019 ROVENSTINE DO, EDNA Hanna Ot G47.30 SLEEP APNEA, UNSPECIFIED 06/27/2019 ROVENSTINE EDNA BLANCA Ot I10 ESSENTIAL (PRIMARY) HYPERTENSION 06/27/2019 ROVENSTINE DOEDNA Ot J44.1 CHRONIC OBSTRUCTIVE PULMONARY DISEASE W 06/27/2019 ROVENSTINE DOEDNA Ot J45.909 UNSPECIFIED ASTHMA, UNCOMPLICATED 06/27/2019 ROVENSTINE DOEDNA Ot R06.02 SHORTNESS OF BREATH 06/27/2019 ROVENSTINE DOEDNA Ot Z77.22 CNTCT W AND EXPSR TO ENVIRON TOBACCO SMO 06/27/2019 JAKEVENSTINE EDNA BLANCA Ot Z79.84 [employer]IST (CURRENT) USE OF ORAL HYPOGLYC 06/27/2019 JAKEVENSTINE EDNA BLANCA Ot Z85.51 PERSONAL HISTORY OF MALIGNANT NEOPLASM O 06/27/2019 ROVENSTINE EDNA BLANCA Ot Z85.528 PERSONAL HISTORY OF OTHER MALIGNANT NEOP 06/27/2019 ROVENSTINE DOEDNA Ot Z87.442 PERSONAL HISTORY OF URINARY CALCULI 06/27/2019 ROVENSTINE DOEDNA Ot Z90.5 ACQUIRED ABSENCE OF KIDNEY 06/27/2019 ROVENSTINE DOEDNA Ot Z90.710 ACQUIRED ABSENCE OF BOTH CERVIX AND UTER 06/27/2019 ROVENSTINE DOEDNA Ot Z90.89 ACQUIRED ABSENCE OF OTHER ORGANS 06/27/2019 ROVENSTINE DOEDNA Ot Z98.51 TUBAL LIGATION STATUS 06/27/2019 ROVENSTINE DOEDNA Ot Z99.89 DEPENDENCE ON OTHER ENABLING MACHINES AN 07/01/2019 Lianna Davis 493.01 EXTRINSIC ASTHMA WITH STATUS ASTHMATICUS 07/01/2019 Lianna Davis J45.52 SEVERE PERSISTENT ASTHMA WITH STATUS ASTHMATICUS 07/01/2019 Lianna Davis W 250.00 DIABETES MELLITUS WITHOUT MENTION OF COMPLICATION, [...] 2 DIABETES MELLITUS WITHOUT COMPLIC 07/01/2019 ROVENSTINE DOEDNA Ot E78.00 PURE HYPERCHOLESTEROLEMIA, UNSPECIFIED 07/01/2019 ROVENSTINE DOEDNA Ot F31.9 BIPOLAR DISORDER, UNSPECIFIED 07/01/2019 ROVENSTINE DOEDNA Ot F41.9 ANXIETY DISORDER, UNSPECIFIED 07/01/2019 ROVENSTINE DOEDNA Ot G47.30 SLEEP APNEA, UNSPECIFIED 07/01/2019 ROVENSTINE DOEDNA Ot I10 ESSENTIAL (PRIMARY) HYPERTENSION 07/01/2019 ROVENSTINE DOEDNA Ot J44.1 CHRONIC OBSTRUCTIVE PULMONARY DISEASE W 07/01/2019 ROVENSTINE EDNA BLANCA Ot J45.909 UNSPECIFIED ASTHMA, UNCOMPLICATED 07/01/2019 ROVENSTINE DOEDNA Ot R06.02 SHORTNESS OF BREATH 07/01/2019 ROVENSTINE DOEDNA Ot Z77.22 CNTCT W AND EXPSR TO ENVIRON TOBACCO SMO 07/01/2019 ROVENSTINE DOEDNA Ot Z79.84 ALF (CURRENT) USE OF ORAL HYPOGLYC 07/01/2019 ROVENSTINE DOEDNA Ot Z85.51 PERSONAL HISTORY OF MALIGNANT NEOPLASM O 07/01/2019 ROVENSTINE EDNA BLANCA Ot Z85.528 PERSONAL HISTORY OF OTHER MALIGNANT NEOP 07/01/2019 ROVENSTINE DO, EDNA Hanna Ot Z87.442 PERSONAL HISTORY OF URINARY CALCULI 07/01/2019 ROVENSTINE DO EDNA Hanna Ot Z90.5 ACQUIRED ABSENCE OF KIDNEY 07/01/2019 ROVENSTINE DO EDNA Hanna Ot Z90.710 ACQUIRED ABSENCE OF BOTH CERVIX AND UTER 07/01/2019 ROVENSTINE DO EDNA Hanna Ot Z90.89 ACQUIRED ABSENCE OF OTHER ORGANS 07/01/2019 ROVENSTINE DO EDNA Hanna Ot Z98.51 TUBAL LIGATION STATUS 07/01/2019 ROVENSTINE DO EDNA Hanna Ot Z99.89 DEPENDENCE ON OTHER ENABLING MACHINES AN 07/04/2019 Lianna Davis W 188.8 MALIGNANT NEOPLASM OF OTHER SPECIFIED SITES OF BLADDER 07/04/2019 Lianna Davis W 250.00 DIABETES MELLITUS WITHOUT MENTION OF COMPLICATION, TYPE II OR UNSPECIFIED TYPE, NOT STATED UNCONTROLLED 07/04/2019 Lianna Davis W 272.4 OTHER AND UNSPECIFIED HYPERLIPIDEMIA 07/04/2019 Lianna Davis W 327.23 OBSTRUCTIVE SLEEP APNEA (ADULT) (PEDIATRIC) 07/04/2019 Lianna Davis W 401.0 MALIGNANT ESSENTIAL HYPERTENSION 07/04/2019 Lianna Davis W 493.01 EXTRINSIC ASTHMA WITH STATUS ASTHMATICUS 07/04/2019 Lianna Davis W 493.91 ASTHMA, UNSPECIFIED TYPE, WITH STATUS ASTHMATICUS 07/04/2019 Macrina Davisi W 794.31 NONSPECIFIC ABNORMAL ELECTROCARDIOGRAM [ECG] [EKG] 07/04/2019 Lianna Davis W 799.02 HYPOXEMIA 07/04/2019 Lianna Davis W 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 07/04/2019 Lianna Davis W E11.9 TYPE 2 DIABETES MELLITUS WITHOUT COMPLICATIONS 07/04/2019 Lianna Davis W E78.5 HYPERLIPIDEMIA, UNSPECIFIED 07/04/2019 Lianna Davis W G47.33 OBSTRUCTIVE SLEEP APNEA (ADULT) (PEDIATRIC) 07/04/2019 Lianna Davis W I10 ESSENTIAL (PRIMARY) HYPERTENSION 07/04/2019 Lianna Davis W J45.52 SEVERE PERSISTENT ASTHMA WITH STATUS ASTHMATICUS 07/04/2019 Lianna Davis W J45.902 UNSPECIFIED ASTHMA WITH STATUS ASTHMATICUS 07/04/2019 Lianna Davis R09.02 HYPOXEMIA 07/04/2019 Lianna Davis R94.31 ABNORMAL ELECTROCARDIOGRAM [ECG] [EKG] 07/04/2019 Lianna Davis V45.85 INSULIN PUMP STATUS 07/04/2019 Lianna Davis Z96.41 PRESENCE OF INSULIN PUMP (EXTERNAL) (INTERNAL) 07/06/2019 [facility] DO, DEBBIE L Ot B19.2 [...] 07/06/2019 [facility] DO, DEBBIE L Ot Z79.4 ALF (CURRENT) USE OF INSULIN 07/06/2019 [facility] DO, [...] 07/08/2019 [facility] DO, DEBBIE L Ot Z79.4 [employer] SPECIALIST (CURRENT) USE OF INSULIN 07/08/2019 [facility] DO, [...] ABSENCE OF BOTH CERVIX AND UTER 07/08/2019 [facility] DO, DEBBIE L Ot Z98.5 1 TUBAL LIGATION STATUS Procedures Code [place] [address] GLUCOSE 05/08/2013 77225 HEMO GLOBIN A1C 05/08/2013 G0008 ADMI N FEE (MEDICARE) INFLUENZA 05/14/2013 62971 CBC - CBC WITH DIFF - LC 05/15/2013 83009 COMP - COMPREHENSIVE PANEL - LC 05/15/2013 84750 LIPI D - LIPID PANEL - LC 05/15/2013 41225 TSH - TSH - LC 05/15/2013 95228 MALB - MICROALBUMIN - LC 05/15/2013 38086 GLUCOSE 08/11/2013 11015 HEMO GLOBIN A1C 08/11/2013 08332 CBC WITH DIFF 08/12/2013 52934 GLUCOSE 10/07/2013 4000F TOBA MILLER HEAD ASSISTANT WET PROCESS USE TXMNT COUNSELING 10/13/2013 51811 PULS E OXIMETRY 12/12/2013 A4614 PEAK FLOW 12/12/2013 13744 GLUCOSE 12/12/2013 75274 HEMO GLOBIN A1C 12/12/2013 Pulmonary Pulmonary Function Test 01/13/2014 A4614 PEAK FLOW 02/10/2014 32248 PULS E OXIMETRY 02/10/2014 61716 GLUCOSE 02/10/2014 Endocrino Endocrinology 02/13/2014 Pulmonary Pulmonology, Pulmonology 03/13/2014 11848 PULS E OXIMETRY 04/14/2014 A4614 PEAK FLOW [...] NG NRG Automated blood complete blood count (he mogram) [...] 7-25 CREATININE 0.90 mg/dL 0.50-1.05 eGFR NON-AFR. FINNISH 74 mL/min/1.73m2 > OR = 60 eGFR [...] anisocytosis detection by light microscopy [facility] Blood dohle body detection by light microscopy [facility] Blood microcytes detection by light microscopy [facility] Comprehensive metabolic panel - 11/06/18 18:25 [...] calculation of estimated glomerular filtration rate 34 NR Serum or plasma glucose measurement (mass/volume) 420 [...] culture - 11/06/18 18:55 Bacterial blood culture [facility] Influenza virus A and B antigen detectio n - 11/06/18 18:59 FLU RESULT NEGATIVE FOR INFLUENZA A AND B ANTIGENS BY IA [facility] Bacterial blood culture - 11/06/18 19:08 Bacterial blood culture [facility] Capillary blood glucose [...] culture - 01/04/19 19:30 Bacterial urine culture [id number] NRG COLONY COUNT 30,000 CFU/ML NRG Complete [...] culture - 01/04/19 20:35 Bacterial urine culture [id number] NRG COLONY COUNT . NRG FTX;REPORTABLE <10,000 [...] limit <=0.05 miu/l (units/volume) 2.74 u[iU]/mL 0.35-4.94 PDM - 09 PANEL (PROFILE 1) - 01/30/19 09 :47 [...] 7-25 CREATININE 1.23 mg/dL 0.50-1.05 eGFR NON-AFR. FINNISH 50 mL/min/1.73m2 > OR = 60 eGFR [...] by glucometer (mas s/volume) 242 mg/dL 70-110 CULTURE, ANAEROBIC AND AEROBIC - 0 15:43 CULTURE, ANAEROBIC BACTERIA W/GRAM STAIN NRG CULTURE, AEROBIC BACTERIA NRG TEST IN QUESTION - NO TEST FOR CONTAINE R - 08/04/19 15:43 QUESTION/PROBLEM: NRG SPECIMEN(S) RECEIVED: Aptima orange label swab via l NRG CONTACT: NRG COMMENT NRG Encounters ACCT No. Visit Date/Time Discharge Status Pt. Type Provider Facility Loc./Unit Complaint [id number] 10/30/2018 17:22:00 Document Registration [id number] 10/30/2018 17:22:00 Document Registration [email or web address] 04/26/2019 03:58:14 ACT Document Registration [id number] 10/17/2019 10:03:00 ACT Unknown Halle Sahni MD [id number] 07/06/2019 17:56:00 20:32:00 DIS Emergency BASS DEBBIE BLANCA L [facility] ER FS HIGH BLOOD SUGAR [id number] 06/27/2019 21:51:00 22:23:00 DIS Emergency ROVENSTINE DO EDNA L [facility] ER FS SOB,N,V [id number] 06/21/2019 15:26:00 18:47:00 DIS Outpatient MARK BOJORQUEZ MD [facility] ER FS BLOOD SUGAR 415; SOB [id number] 06/17/2019 23:44:00 00:22:00 DIS Emergency MAKSIM RICCI MD [facility] ER FS SORE THROAT [id number] 06/12/2019 20:58:00 00:00:00 DIS Emergency JAZIEL WONG DO [facility] ER FS PSYCH EVAL [id number] 06/02/2019 08:49:00 12:33:00 DIS Outpatient MIKAYLA DE LOS SANTOS DO [facility] ENDO HX POLYPS [id number] 05/06/2019 13:20:00 13:25:00 DIS Outpatient MIKAYLA DE LOS SANTOS DO [facility] PREOP COLONOSCOPY [id number] 04/14/2019 13:32:00 17:50:00 DIS Emergency LUCÍA FUENTES MD [facility] ER FS SOB; CHEST PAIN [id number] 03/24/2019 10:00:00 12:45:00 DIS Outpatient MIKAYLA DE LOS SANTOS DO [facility] ENDO SCREENING [id number] 03/22/2019 20:27:00 21:50:00 DIS Emergency KALI BLANCA DEBBIE L [facility] ER FS SOA [id number] 03/18/2019 05:38:00 23:59:59 CLS Outpatient MIKAYLA DE LOS SANTOS DO [facility] PREOP COLONOSCOPY [id number] 03/07/2019 21:51:00 22:35:00 DIS Emergency RABIA WILKS MD [facility] ER FS PANIC ATTACK [id number] 01/11/2019 15:06:00 17:55:00 DIS Emergency DEBBIE BASS DO [facility] ER FS PT STATES SHE NEEDS A M ENTAL HEALTH SCREENING [id number] 01/10/2019 19:58:00 21:53:00 DIS Emergency DIANE DELCID MD [facility] ER FS SEVERE RT SIDE ABD PAIN ;SOB [id number] 01/08/2019 17:11:00 20:40:00 DIS Emergency POLA WEBB DO [facility] ER FS CHEST PAIN, SOB [id number] 01/06/2019 21:51:00 01:32:00 DIS Emergency POLA WEBB DO [facility] ER FS MENTAL HEALTH EVAL [id number] 01/05/2019 19:25:00 20:17:00 DIS Emergency TARIK GEORGE DO [facility] ER FS RIGHT SIDE PAIN [id number] 01/04/2019 19:17:00 21:13:00 DIS Emergency JAZIEL WONG DO [facility] ER FS RIGHT SIDE PAIN [id number] 01/02/2019 04:59:00 05:55:00 DIS Emergency JAZIEL WONG DO [facility] ER FS RIGHT SIDE PAIN [id number] 12/21/2018 17:59:00 19:50:00 DIS Emergency DIANE DELCID MD [facility] ER FS SOB,VAGINAL PAIN [id number] 12/14/2018 14:21:00 16:45:00 DIS Emergency LUCÍA FUENTES MD [facility] ER FS ABD PAIN,VAGINAL PAIN F ROM CATHETER [id number] 12/12/2018 13:47:00 23:59:59 CLS Outpatient JERI BATEMAN, MANASA Funes [facility] RAD FS R10.84 GEN ABD PAIN [id number] 11/29/2018 08:34:00 16:55:00 DIS Emergency DIANE DELCID MD [facility] ER FS URINARY RETENTION [id number] 11/14/2018 21:43:00 23:23:00 DIS Emergency MARY BATEMAN, DANIEL de dios [facility] ER FS BLOOD SUGAR ISSUES [id number] 11/06/2018 17:40:00 01:30:00 DIS Emergency JAME CULVER DO T [facility] ER FS SOB,CHEST PAIN [id number] 10/30/2018 20:30:00 00:33:00 DIS Emergency DIANE DELCID MD [facility] ER FS SOB, HIGH BLOOD SUGAR, ABD SORE [id number] 10/16/2018 22:53:00 00:25:00 DIS Emergency DIANE DELCID MD [facility] ER FS CHEST PAINS [id number] 10/13/2018 17:02:00 20:45:00 DIS Emergency DANIEL HERNANDEZ MD [facility] ER FS CHEST PAIN,SOB [id number] 09/18/2018 20:56:00 07:30:00 DIS Emergency NOEL DICK DO T [facility] ER FS HIGH BLOOD SUGAR, SOB [id number] 09/12/2018 14:20:00 019 15:56:00 DIS Emergency MARY BATEMAN, DANIEL de dios [facility] ER FS FALL; RT HIP/MI WRIST INJ [id number] 12/24/2018 10:40:00 9 23:59:59 DIS Outpatient LINDA SAHNI [facility]RISTOPHER RAD [id number] 08/26/2018 07:22:56 9 23:59:59 DIS Outpatient DANAY SORIA V [facility] LAB [id number] 05/30/2018 08:41:17 8 23:59:59 DIS Outpatient LINDA SAHNI [facility]RISTOPHER RAD [id number] 04/25/2018 12:24:37 8 23:59:59 CLS Preadmit LINDA SAHNI N [facility] CHRISTOPHER Surgery ops [id number] 04/02/2019 11:54:39 Document Registration [id number] 11/13/2018 14:34:59 Document Registration [id number] 08/06/2018 13:35:03 Document Registration [id number] 07/05/2018 09:35:35 ACT V AMADOU ROBERT [facility]RISTOPHER MS [id number] 06/18/2018 06:13:13 Inpatient LINDA SAHNI [facility] CHRISTOPHER MS ops [id number] 06/30/2019 16:00:00 07/04/2019 10:30 :00 DIS Inpatient Lianna Davis C enter ICU [id number] 06/30/2019 17:27:54 Document Registration [id number] 10/01/2019 08:30:00 10/01/2019 23:59: 59 CLS Outpatient [facility]NASA [facility] [id number] 08/04/2019 15:15:00 Document Registration [id number] 05/23/2019 07:00:00 Document Registration [id number] 01/30/2019 09:40:00 Document Registration [id number] 12/30/2018 16:30:00 Document Registration [id number] 12/30/2018 14:39:00 Document Registration [id number] 12/18/2018 12:00:00 Document Registration [id number] 10/07/2018 13:15:00 Document Registration [id number] 09/25/2018 09:45:00 Document Registration [id number] 04/14/2014 08:59:00 04/14/2014 11:05: 00 DIS Outpatient HEATHER IRVIN APRN [id number] 02/10/2014 09:57:00 02/10/2014 23:59: 59 CLS Outpatient HEATHER IRVIN APRN [id number] 02/10/2014 09:57:00 02/10/2014 23:59: 59 CLS Outpatient HEATHER IRVIN APRN [id number] 12/12/2013 10:38:00 12/12/2013 23:59: 59 CLS Outpatient HEATHER IRVIN APRN [id number] 10/07/2013 14:37:00 10/13/2013 20:05: 00 DIS Outpatient HEATHER IRVIN APRN [id number] 10/07/2013 14:37:00 10/07/2013 23:59: 59 CLS Outpatient HEATHER IRVIN APRN [id number] 08/11/2013 10:11:00 08/11/2013 13:49: 00 DIS Outpatient HEATHER IRVIN APRN [id number] 05/08/2013 09:56:00 05/08/2013 23:59:5 9 CLS Outpatient MARIANNA FAUST APRN [id number] 01/08/2013 08:25:00 01/08/2013 23:59:5 9 CLS Outpatient MARIANNA FAUST APRN [id number] 10/15/2014 15:34:45 10/15/2014 23: 59:00 DIS Outpatient SONY CAMPO [facility] [id number] 08/12/2014 12:31:00 08/12/2014 14: 34:00 DIS Emergency [facility] FED [id number] 06/21/2014 16:47:00 06/21/2014 17: 52:00 DIS Emergency [facility] FED [id number] 09/02/2014 00:00:00 Document Registration
--- NOTE | 2019-10-19 12:07 | ED General ---
General Chief Complaint: Respiratory Problems Nursing Triage Note: Patient reports SOA, and out of her medication. Nursing Sepsis Screen: No Definite Risk Source of Information: Patient, EMS Notes Reviewed, RN Notes Reviewed History of Present Illness Date Seen by Provider: Oct 19, 2019 Time Seen by Provider: 12:04 Initial Comments This patient is a 54-year-old female that presents to the emergency department via EMS requesting a mental health evaluation. This patient has numerous medical complaints point shortness of breath cough back pain skin pain upset because her boyfriend was you N for taking too long to [facility]. This patient apparently was called EMS last night due to her boyfriend and her fighting but then refused transport to the emergency. Patient apparently was at [facility] and states that her boyfriend/ was yelling at her for taking too long at [facility] and they continued argument [place] [address] at home so she called EMS to bring her to the ER. Patient has no specific complaints patient is satting 97% on room air and has a normal blood pressure. Patient seems to have chronic conditions that are at their baseline and has no specific complaints here. Patient states she was just tired her boyfriend yelling at her. Patient requested talk to a therapist V is a states only she can get her healthcare is coming to the emergency Department however she does have a family doctor that's offices [place]door to the hospital. Patient does take multiple medications but has no specific complaints in the ER. We'll do medical evaluation treatment is needed. Timing/Duration: Intermittent Associated Systoms: No Denies Symptoms, No Chest Pain, No Cough, No Diaphoresis, No Fever/Chills, No Headaches, No Loss of Appetite, No Malaise, No Nausea/Vomiting, No Rash, No Seizure, No Shortness of Air, No Syncope, No Wea kness, No Other Allergies and Home Medications Allergies Coded Allergies: No Known Drug Allergies (Unverified , 05/06/19) Home Medications Atorvastatin Calcium 10 Mg Tablet, 10 MG PO HS, (Reported) Escitalopram Oxalate 10 Mg Tablet, 10 MG PO DAILY, (Reported) Ibuprofen 800 Mg Tablet, 800 MG PO Q8H PRN for PAIN-MILD, (Reported) Linagliptin 5 Mg Tablet, 5 MG PO DAILY, (Reported) Lisinopril 5 Mg Tablet, 5 MG PO DAILY, (Reported) Metformin HCl 750 Mg Tab.er.24h, 1,500 MG PO HS, (Reported) Nebivolol HCl 10 Mg Tab, 10 MG PO DAILY, (Reported) Olanzapine 10 Mg Tablet, 10 MG PO HS, (Reported) Tramadol HCl 50 Mg Tablet, 50 MG PO PRN, (Reported) Ziprasidone 80 Mg Cap, 160 MG PO HS, (Reported) Patient Home Medication List Home Medication List Reviewed: Yes Review of Systems Review of Systems Constitutional: see HPI EENTM: no symptoms reported; No see HPI, No ear discharge, No hearing loss, No ear pain, No blurred vision, No double vision, No eye pain, No tearing, No vision loss, No dental problems, No hoarseness, No mouth pain, No mouth swelling, No epistaxis, No nose congestion, No nose pain, No throat pain, No throat swelling, No other Respiratory: No no symptoms reported, No see HPI, No cough, No dyspnea on exertion, No hemoptysis, No orthopnea, No phlegm, No short of breath, No stridor, No wheezing, No other Cardiovascular: No no symptoms reported, No see HPI, No chest pain, No edema, No Hx of Intervention, No palpitations, No syncope, No vascular heart diseas, No other Gastrointestinal: No RUQ, No LUQ, No RLQ, No LLQ, No no symptoms reported, No see HPI, No abdominal pain, No constipation, No diarrhea, No dysphagia, No hematemesis, No heartburn, No jaundice, No loss of appetite, No melena, No nausea, No vomiting, No other Genitourinary: No no symptoms reported, No see HPI, No decreased output, No discharge, No dysuria, No frequency, No hematuria, No hesitancy, No incontinence, No nocturia, No pain, No other Musculoskeletal: No no symptoms reported, No see HPI, No back pain, No gout, No joint pain, No joint swelling, No muscle pain, No muscle stiffness, No muscle cramps, No muscle twitching, No muscle weakness, No neck pain, No other Skin: No no symptoms reported, No see HPI, No change in color, No change in hair/nails, No dryness, No hx of skin cancer, No lesions, No lumps, No pruritus, No rash, No other Psychiatric/Neurological: Anxiety, Emotional Problems, Other (upset from arguing with significant other) Past Jwmmjzx-Grnbed-Bfkqom Hx Patient Social History Alcohol Use: Denies Use Recreational Drug Use: Yes Drug of Choice: marijuana Smoking Status: Current Everyday Smoker Type Used: Cigarettes 2nd Hand Smoke Exposure: Yes Recent Foreign Travel: No Contact w/Someone Who Travel: No Recent Infectious Disease Expo: No Recent Hopitalizations: No Seasonal Allergies Seasonal Allergies: No Past Medical History Surgeries: Yes Abdominal, Hysterectomy, Nephrectomy, Tonsillectomy, Tubal Ligation Respiratory: Yes Asthma, COPD, Emphysema Currently Using CPAP: No (Has CPAP for JUAN ANTONIO but not tolerating) Currently Using BIPAP: No Cardiac: Yes High Cholesterol, Hypertension Neurological: No DIAL BRUSHER History: Hysterectomy Genitourinary: 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 had recent axilla abscess) Recent Skin Changes Blood Disorders: Yes (HEP C) Adverse Reaction/Blood Tranf: No Physical Exam Vital Signs Vital Signs - First Documented 10/19/19 11:57 Temp 36.4 Pulse 91 Resp 18 B/P (MAP) 145/111 (122) Pulse Ox 97 Capillary Refill : Less Than 3 Seconds Height, Weight, BMI Height: 5'7.00" Weight: 224lbs. 0.0oz. [id number]; 38.00 BMI Method:Actual General Appearance: No Apparent Distress, WD/WN HEENT: PERRL/EOMI, TMs Normal, Normal ENT Inspection, Pharynx Normal Neck: Full Range of Motion, Normal Inspection, Non Tender, Supple, Carotid Bruit Respiratory: Chest Non Tender, Lungs Clear, Normal Breath Sounds, No Accessory Muscle Use, No Respiratory Distress Cardiovascular: Regular Rate, Rhythm, No Edema, No Gallop, No JVD, No Murmur, Normal Peripheral Pulses Gastrointestinal: Normal Bowel Sounds, No Organomegaly, No Pulsatile Mass, Non Tender, Soft Neurologic/Psychiatric: Alert, Oriented x3, No Motor/Sensory Deficits, Normal Mood/Affect Progress/Results/Core Measures Suspected Sepsis Recent Fever Within 48 Hours: No Infection Criteria Present: None New/Unexplained Altered Menta: No Sepsis Screen: No Definite Risk SIRS Temperature: Pulse: 91 Respiratory Rate: 18 Blood Pressure 145 /111 Mean: 122 Results/Orders Lab Results Laboratory Tests Test 10/19/19 12:18 Range/Units My Orders Orders - JOSE HOOVER MD Drug Screen Stat (Urine) (10/19/19 12:07) Urinalysis (10/19/19 12:18) Vital Signs/I&O 10/19/19 11:57 Temp 36.4 Pulse 91 Resp 18 B/P (MAP) 145/111 (122) Pulse Ox 97 Capillary Refill : Less Than 3 Seconds Blood Pressure Mean: 122 Progress Note : Time: 12:19 Progress Note Nursing staff called behavioral health services in the telemedicine visit. After long discussion about the patient's complaints telemedicine behavioral health felt the patient did not meet any further screening need recommended the patient be discharged home after medical screening exam was complete. 1235 patient appears to be angry. Seems to be angry about everything. Angry with her boyfriend/. Angry with [facility] for not filling her medication. Angry with myself and angry with the medical staff in the emergency department. Complaining if things are taking too long. Patient was advised that we're waiting on a urinalysis due to her back pain. Patient has decided to leave the emergency department against medical advise. Patient is aware that a pending urinalysis for evaluation and the results are pending. Patient states understanding but is decided to leave AGAINST MEDICAL ADVICE. Patient was advised by nursing staff to follow up with her primary care physician in the next 1-2 days for further evaluation of needed her symptoms worsen return to the emergency department. Departure Impression Primary Impression: Grief reaction Disposition: AGAINST MEDICAL ADVICE Condition: Against Medical Advice Departure-Patient Inst. Decision time for Depature: 12:36 Referrals: MANASA WILCOX MD (PCP/Family) Primary Care Physician Patient Instructions: Adjustment Disorder Add. Discharge Instructions: Follow-up with your primary care physician for your chronic conditions. Maintain a safe environment at home. Return to the emergency department if needed All discharge instructions reviewed with patient and/or family. Voiced understanding. JOSE HOOVER MD Oct 19, 2019 12:07
--- NOTE | 2019-10-19 12:15 | NUR ---
Barbara from the [facility] hours mental [facility] called and stated that she talked with Ion a mental health screener and stated that patient does not meet criteria to be screened.
[2019-10-19 12:33] LABS: CLARITY,URINE CLEAR; COLOR,URINE YELLOW; GLUCOSE, URINE (UA) NEGATIVE (NEGATIVE); KETONES,URINE NEGATIVE (NEGATIVE); NITRITE,URINE NEGATIVE (NEGATIVE); PROTEIN,URINE NEGATIVE (NEGATIVE)
[2019-10-19 12:34] LABS: BACTERIA,URINE NEGATIVE /HPF; BILIRUBIN,URINE NEGATIVE (NEGATIVE); LEUKOCYTE ESTERASE ,URINE NEGATIVE (NEGATIVE); SQUAMOUS EPITHELIAL CELL,UR 0-2 /HPF; WBC,URINE RARE /HPF
[2019-10-19 12:38] LABS: AMPHETAMINE SCREEN, URINE POSITIVE (NEGATIVE); BARBITURATE SCREEN URINE NEGATIVE (NEGATIVE); BENZODIAZEPINES SCREEN URINE NEGATIVE (NEGATIVE); CANNABINOID SCREEN, URINE POSITIVE (NEGATIVE); COCAINE SCREEN URINE NEGATIVE (NEGATIVE); METHADONE STAT NEGATIVE (NEGATIVE); METHAMPHETAMINE SCREEN URINE S NEGATIVE (NEGATIVE); OPIATE SCREEN URINE NEGATIVE (NEGATIVE); OXYCODONE STAT NEGATIVE (NEGATIVE); PROPOXYPHENE STAT NEGATIVE (NEGATIVE); TRICYCLIC ANTIDEPRESSANTS SCRE NEGATIVE (NEGATIVE)
== END 2019-10-19 12:40 | disposition left against medical advice (07) ==
LOC: EDUNIT# 11:51 → ER FS 11:52
DX: F43.20 Adjustment disorder, unspecified (principal); I10 Essential (primary) hypertension; E11.9 Type 2 diabetes mellitus without complications; E78.00 Pure hypercholesterolemia, unspecified; F41.9 Anxiety disorder, unspecified; F31.9 Bipolar disorder, unspecified; F17.210 Nicotine dependence, cigarettes, uncomplicated; Z79.84 Long term (current) use of oral hypoglycemic drugs; Z85.51 Personal history of malignant neoplasm of bladder; Z85.528 Personal history of other malignant neoplasm of kidney
CPT/HCPCS: 80306; 81000; 99283

== ENCOUNTER 2019-11-20 15:19 | Emergency (ER) | payer MEDICARE, MEDICAID ==
--- NOTE | 2019-11-20 15:36 | ED Respiratory ---
General Chief Complaint: Respiratory Problems Stated Complaint: SOA Source: patient Exam Limitations: no limitations History of Present Illness Date Seen by Provider: November 20, 2019 Time Seen by Provider: 15:30 Initial Comments 54-year-old female presents with shortness of air. Patient reports that she was seen by her primary care provider and started on Zithromax and steroids 3 days ago. Patient feels like she can't catch her breath. Patient states that she is i mproving but slowly. She reports when she is coughing the symptoms are worse and she gets dizzy and feels like she got a pass out. However when she is not coughing symptoms improved. She is not having chest pain. She was tested for COVID and was negative. Patient has a seen a history of COPD. Allergies and Home Medications Allergies Coded Allergies: No Known Drug Allergies (Unverified , 05/06/19) Home Medications Atorvastatin Calcium 10 Mg Tablet, 10 MG PO HS, (Reported) Escitalopram Oxalate 10 Mg Tablet, 10 MG PO DAILY, (Reported) Ibuprofen 800 Mg Tablet, 800 MG PO Q8H PRN for PAIN-MILD, (Reported) Linagliptin 5 Mg Tablet, 5 MG PO DAILY, (Reported) Lisinopril 5 Mg Tablet, 5 MG PO DAILY, (Reported) Metformin HCl 750 Mg Tab.er.24h, 1,500 MG PO HS, (Reported) Nebivolol HCl 10 Mg Tab, 10 MG PO DAILY, (Reported) Olanzapine 10 Mg Tablet, 10 MG PO HS, (Reported) Tramadol HCl 50 Mg Tablet, 50 MG PO PRN, (Reported) Ziprasidone 80 Mg Cap, 160 MG PO HS, (Reported) Patient Home Medication List Home Medication List Reviewed: Yes Review of Systems Review of Systems Constitutional: No chills, No fever Respiratory: cough, short of breath, wheezing Cardiovascular: No chest pain Gastrointestinal: no symptoms reported Genitourinary: no symptoms reported Musculoskeletal: no symptoms reported Skin: no symptoms reported Psychiatric/Neurological: No Symptoms Reported Past Kdtjvwx-Hnqzgt-Pecxeu Hx Past Med/Social Hx: Reviewed Nursing Past Med/Soc Hx Patient Social History Drug of Choice: marijuana Type Used: Cigarettes 2nd Hand Smoke Exposure: Yes Recent Foreign Travel: No Contact w/Someone Who Travel: No Recent Hopitalizations: No Seasonal Allergies Seasonal Allergies: No Past Medical History Surgeries: Yes Abdominal, Hysterectomy, Nephrectomy, Tonsillectomy, Tubal Ligation Respiratory: Yes Asthma, COPD, Emphysema Currently Using CPAP: No (Has CPAP for JUAN ANTONIO but not tolerating) Currently Using BIPAP: No Cardiac: Yes High Cholesterol, Hypertension 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 had recent axilla abscess) Recent Skin Changes Blood Disorders: Yes (HEP C) Adverse Reaction/Blood Tranf: No Physical Exam Vital Signs - First Documented 11/20/19 16:16 Temp 35.4 Pulse 82 Resp 24 B/P (MAP) 123/72 (89) Pulse Ox 96 Capillary Refill : Height: 5'7.00" Weight: 224lbs. 0.0oz. 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 II-XII nml as tested, no motor/sensory deficits, alert, normal mood/affect, oriented x 3 Skin: normal color, warm/dry Lymphatic: no adenopathy Progress/Results/Core Measures Suspected Sepsis SIRS Temperature: Pulse: Respiratory Rate: Laboratory Tests 11/20/19 15:42: White Blood Count 10.6 Blood Pressure / Mean: Laboratory Tests 11/20/19 15:42: Creatinine 1.09, Platelet Count 260, Total Bilirubin 0.2 Results/Orders Lab Results Laboratory Tests Test 11/20/19 15:42 Range/Units White Blood Count 10.6 4.3-11.0 10^3/uL Red Blood Count 4.08 L 4.35-5.85 10^6/uL Hemoglobin 11.4 L 11.5-16.0 G/DL Hematocrit 36 35-52 % Mean Corpuscular Volume 88 80-99 FL Mean Corpuscular Hemoglobin 28 25-34 PG Mean Corpuscular Hemoglobin Concent 32 32-36 G/DL Red Cell Distribution Width 16.4 H 10.0-14.5 % Platelet Count 260 130-400 10^3/uL Mean Platelet Volume 10.0 7.4-10.4 FL Sodium Level 131 L 135-145 MMOL/L Potassium Level 4.3 3.6-5.0 MMOL/L Chloride Level 93 L 98-107 MMOL/L Carbon Dioxide Level 21 21-32 MMOL/L Anion Gap 17 H 5-14 MMOL/L Blood Urea Nitrogen 12 7-18 MG/DL Creatinine 1.09 0.60-1.30 MG/DL Estimat Glomerular Filtration Rate 53 BUN/Creatinine Ratio 11 Glucose Level 395 H 70-105 MG/DL Calcium Level 9.8 8.5-10.1 MG/DL Corrected Calcium 9.7 8.5-10.1 MG/DL Magnesium Level 2.0 1.6-2.4 MG/DL Total Bilirubin 0.2 0.1-1.0 MG/DL Aspartate Amino Transf (AST/SGOT) 14 5-34 U/L Alanine Aminotransferase (ALT/SGPT) 21 0-55 U/L Alkaline Phosphatase 135 40-136 U/L Troponin I < 0.30 <0.30 NG/ML Pro-B-Type Natriuretic Peptide 113.4 H <75.0 PG/ML Total Protein 7.4 6.4-8.2 GM/DL Albumin 4.1 3.2-4.5 GM/DL My Orders Orders - BASS,DEBBIE L DO Cbc No Diff (11/20/19 15:45) Comprehensive Metabolic Panel (11/20/19 15:45) Magnesium (11/20/19 15:45) Probnp Fs (11/20/19 15:45) Chest Pa/Lat (2 View) (11/20/19 15:45) Ekg Tracing (11/20/19 15:45) Troponin I Fs (11/20/19 15:45) Albuterol/Ipra Inhalation Soln (Duoneb I (11/20/19 16:15) Svn Small Volume Nebulizer (11/20/19 16:07) Vital Signs/I&O 11/20/19 16:16 Temp 35.4 Pulse 82 Resp 24 B/P (MAP) 123/72 (89) Pulse Ox 96 Capillary Refill : Progress Note : Time: 16:34 Progress Note Patient showed no signs of respiratory distress while here in the ER. I will give her a prescription for Tessalon Perles to help with her cough. Discussed with her the need to continue her already prescribed medications. If she continues to have issues she should follow-up with her primary care provider or return to the ER if symptoms severely worsen. Her oxygen saturations remained in the upper 90s throughout her stay. Diagnostic Imaging Diagonstic Imaging: Xray Comments [place], [place] NAME: DOMINIQUE PINEDA [facility] REC#: [id number] PT STATUS: REG ER : 1965 PHYSICIAN: DEBBIE BASS DO ADMIT DATE: 11/20/19/ER FS Draft Date of Exam:11/20/19 CHEST PA/LAT (2 VIEW) INDICATION: Shortness of air. COMPARISON: 07/06/2019. FINDINGS: Frontal and lateral views of the chest demonstrate normal heart size and pulmonary vascularity. The lungs are clear. There are no signs of infiltrate, pleural effusions or pneumothoraces. The visualized osseous structures show no acute abnormalities. Left subclavian Port-A-Cath is noted with tip in the SVC. IMPRESSION: 1. No acute process. No signs of infiltrates, effusions or pneumothoraces. Dictated on workstation # [id number] Departure Impression Primary Impression: COPD with exacerbation Disposition: 01 HOME, SELF-CARE Condition: Stable Departure-Patient Inst. Referrals: MANASA WILCOX MD (PCP/Family) Primary Care Physician Patient Instructions: Exacerbation of COPD, Risk Factors for COPD, Chronic Obstructive Pulmonary Disease (COPD), Including Emphysema Add. Discharge Instructions: Emergency department focuses on treating and ruling out life-threatening diseases. Whenever possible, a diagnosis is given. However, most patients are given an impression based on their history, physical exam, and workup during your brief time in the ER. Information about probable diagnosis and other educational material has been provided. Please take the time to read and understand this information. It is very important that you follow up with a physician as discussed during the visit today. Failure to adhere to your follow-up instructions may lead to severe disability, injury, or so please make sure to keep your appointments or obtain one as requested. Please keep in mind the emergency department is not designed to your primary care or "family doctor" and nonurgent issues are best evaluated by an outpatient physician All discharge instructions reviewed with patient and/or family. Voiced understanding. Scripts Benzonatate (Tessalon Perle) 100 Mg Capsule 100 MG PO Q8H PRN for COUGH, #15 CAP Prov: DEBBIE BASS DO 11/20/19 DEBBIE BASS DO November 20, 2019 15:36
[2019-11-20 16:10] LABS: HEMOGLOBIN 11.4 G/DL (11.5-16.0); RED CELL DISTRIBUTION WIDTH 16.4 % (10.0-14.5); WHITE BLOOD COUNT 10.6 10^3/uL (4.3-11.0)
[2019-11-20] MEDS ORDERED: RT-ALBUTEROL/IPRATROPIUM 3 ML (DUONEB) VIAL INH ONE (16:15)
--- NOTE | 2019-11-20 16:19 | Diagnostic Imaging Report ---
INDICATION: Shortness of air. COMPARISON: 07/06/2019. FINDINGS: Frontal and lateral views of the chest demonstrate normal heart size and pulmonary vascularity. The lungs are clear. There are no signs of infiltrate, pleural effusions or pneumothoraces. The visualized osseous structures show no acute abnormalities. Left subclavian Port-A-Cath is noted with tip in the SVC. IMPRESSION: 1. No acute process. No signs of infiltrates, effusions or pneumothoraces. Dictated by: Dictated on workstation # [id number]
[2019-11-20 16:25] LABS: CARBON DIOXIDE 21 MMOL/L (21-32); CHLORIDE 93 MMOL/L (98-107); POTASSIUM 4.3 MMOL/L (3.6-5.0); SODIUM 131 MMOL/L (135-145)
[2019-11-20 16:26] LABS: ALANINE AMINOTRANSFERASE 21 U/L (0-55); ALBUMIN 4.1 GM/DL (3.2-4.5); ALKALINE PHOSPHATASE 135 U/L (40-136); BILIRUBIN,TOTAL 0.2 MG/DL (0.1-1.0); BUN/CREATININE RATIO 11; CALCIUM 9.8 MG/DL (8.5-10.1); CREATININE SERUM 1.09 MG/DL (0.60-1.30); GFR ESTIMATED 53; GLUCOSE 395 MG/DL (70-105); TOTAL PROTEIN 7.4 GM/DL (6.4-8.2)
[2019-11-20] MEDS ORDERED: BENZ-13 PO (16:36)
[2019-11-20 17:05] VITALS: BP 114/57
--- OUTSIDE RECORDS SUMMARY | 2019-11-20 18:06 | XMS REPORT | Continuity of Care Document ---
Demographics Preferred Language Unknown Marital Status Unknown Congregation Affiliation Unknown Race Unknown Ethnic Group Unknown Author Organization Unknown Address Unknown Phone Unavailable Allergies Active Description Code Type Severity Reaction Onset Reported/Identified Relationship to Patient Clinical Status Yes No Known Medication Allergies Drug N/A N/A Yes NO KNOWN DRUG ALLERGIES UNKNOWN UNKNOWN Yes No Known Drug Allergies [id number] Drug Allergy Unknown N/A 05/06/2019 Medications Medication [...] IRVIN APRN V15 .82 TOBACCOISM 07/05/2010 [facility] [employer], HEATHER 278 .01 OBESITY MORBID 07/05/2010 [employer]PTOR, HEATHER 380 .10 Infective Otitis Externa, Unspecified 07/05/2010 [employer]OR, HEATHER V15 .82 TOBACCOISM 07/05/2010 [employer] SCULPTOR, HEATHER 278 .01 OBESITY MORBID 07/05/2010 [employer] SCULPTOR, HEATHER 380 .10 Infective Otitis Externa, Unspecified 07/05/2010 [employer] SCULPTOR, HEATHER V15 .82 TOBACCOISM 07/05/2010 [employer] SCULPTOR, HEATHER 278 .01 OBESITY MORBID 07/05/2010 [employer]E SCULPTOR, HEATHER 380 .10 Infective Otitis Externa, Unspecified 07/05/2010 [employer] SCULPTOR, HEATHER V15 .82 TOBACCOISM 07/05/2010 [employer] SCULPTOR, HEATHER 278 .01 OBESITY MORBID 07/05/2010 [employer] SCULPTOR, HEATHER 380 .10 Infective Otitis Externa, Unspecified 07/05/2010 [employer] SCULPTOR, HEATHER V15 .82 TOBACCOISM 07/05/2010 [employer] SC[employer]PTOR, MARIANNA 278.01 OBESITY MORBID 07/05/2010 [employer] SC[employer]PTOR, MARIANNA 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, Unspecified 07/05/2010 [employer]CR[employer] SCULPTOR, MARIANNA V15.82 TOBACCOISM 07/05/2010 [employer] SCULPTOR, MARIANNA 278.01 OBESITY MORBID 07/05/2010 [employer] SCULPTOR, MARIANNA 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, Unspecified 07/05/2010 [employer] SC[employer]PTOR, MARIANNA V15.82 TOBACCOISM 07/07/2010 [employer], HEATHER 280 .9 Anemia Hypochromic / Microcytic 07/07/2010 [employer], HEATHER 796 .2 Prehypertension 07/07/2010 [employer]OR, HEATHER V04 .81 Influenza Vaccine 07/07/2010 [employer], HEATHER V68 .89 Encounters For Other Specified Administrative Purpose 07/07/2010 [employer] SC[employer]PTOR, HEATHER V72 .31 Routine Pelvic Exam 07/07/2010 [employer] SC[employer]OR, HEATHER 280 .9 Anemia Hypochromic / Microcytic 07/07/2010 [employer] SC[employer]OR, HEATHER 796 .2 Prehypertension 07/07/2010 [facility] CONCRETE SCULPTOR, HEATHER V04 .81 Influenza Vaccine 07/07/2010 [employer] SC[employer]OR, HEATHER V68 .89 Encounters For Other Specified Administrative Purpose 07/07/2010 [employer] SCULPTOR, HEATHER V72 .31 Routine Pelvic Exam 07/07/2010 [employer] SC[employer]PTOR, HEATHER 280 .9 Anemia Hypochromic / Microcytic 07/07/2010 [employer] SC[employer]OR, HEATHER 796 .2 Prehypertension 07/07/2010 [employer] SCULPTOR, HEATHER V04 .81 Influenza Vaccine 07/07/2010 [employer] SC[employer]PTOR, HEATHER V68 .89 Encounters For Other Specified Administrative Purpose 07/07/2010 [employer] SC[employer]PTOR, HEATHER V72 .31 Routine Pelvic Exam 07/07/2010 [employer] SC[employer]OR, HEATHER 280 .9 Anemia Hypochromic / Microcytic 07/07/2010 [employer] SC[employer]OR, HEATHER 796 .2 Prehypertension 07/07/2010 [facility] CONCRETE SCULPTOR, HEATHER V04 .81 Influenza Vaccine 07/07/2010 [employer] SC[employer]PTOR, HEATHER V68 .89 Encounters For Other Specified Administrative Purpose 07/07/2010 [employer] SCULPTOR, HEATHER V72 .31 Routine Pelvic Exam 07/07/2010 [facility] CONCRETE SCULPTOR, HEATHER 280 .9 Anemia Hypochromic / Microcytic 07/07/2010 [employer] SC[employer]OR, HEATHER 796 .2 Prehypertension 07/07/2010 [facility] SCULPTOR, HEATHER V04 .81 Influenza Vaccine 07/07/2010 [employer] SCULPTOR, HEATHER V68 .89 Encounters For Other Specified Administrative Purpose 07/07/2010 [employer] SCULPTOR, HEATHER V72 .31 Routine Pelvic Exam 07/07/2010 [employer] SCULPTOR, HEATHER 280 .9 Anemia Hypochromic / Microcytic 07/07/2010 [employer] SCULPTOR, HEATHER 796 .2 Prehypertension 07/07/2010 [employer] SCULPTOR, HEATHER V04 .81 Influenza Vaccine 07/07/2010 [employer] SCULPTOR, HEATHER V68 .89 Encounters For Other Specified Administrative Purpose 07/07/2010 [employer] SCULPTOR, HEATHER V72 .31 Routine Pelvic Exam 07/07/2010 [employer] SC[employer]PTOR, HEATHER 280 .9 Anemia Hypochromic / Microcytic 07/07/2010 [employer] SCULPTOR, HEATHER 796 .2 Prehypertension 07/07/2010 [employer] SCULPTOR, HEATHER V04 .81 Influenza Vaccine 07/07/2010 [employer] SCULPTOR, HEATHER V68 .89 Encounters For Other Specified Administrative Purpose 07/07/2010 [employer] SCULPTOR, HEATHER V72 .31 Routine Pelvic Exam 07/07/2010 [employer] SC[employer]PTOR MARIANNA 28 0.9 Anemia Hypochromic / Microcytic 07/07/2010 [employer] SC[employer]PTOR MARIANNA 79 6.2 Prehypertension 07/07/2010 [employer] SC[employer]PTOR MARIANNA V04.81 Influenza Vaccine 07/07/2010 [employer]E SCULPTOR MARIANNA V68.89 Encounters For Other Specified Administrative Purpose 07/07/2010 GOVIND CONCRETE SCULPTORENE V72.31 Routine Pelvic Exam 07/07/2010 GOVIND CONCRETE SCULPTORSOFYAMARIANNA 28 0.9 Anemia Hypochromic / Microcytic 07/07/2010 GOVIND CONCRETE SCULPTORENE 79 6.2 Prehypertension 07/07/2010 [employer] SCULPTOR MARIANNA V04.81 Influenza Vaccine 07/07/2010 G[employer]IND CON[employer]E SCULPTOR MARIANNA V68.89 Encounters For Other Specified Administrative Purpose 07/07/2010 [employer]IND CONCR[employer]E SCULPTOR MARIANNA V72.31 Routine Pelvic Exam 10/20/2010 [facility] CONCRETE SCULPTOR, HEATHER 112 .1 Candidiasis, Of Vulva And Vagina 10/20/2010 [facility] CONCRETE SCULPTOR, HEATHER 599 .0 Uti 10/20/2010 [facility] CONCRETE SCULPTOR, HEATHER 112 .1 Candidiasis, Of Vulva And Vagina 10/20/2010 [facility] CONCRETE SCULPTOR, HEATHER 599 .0 Uti 10/20/2010 [facility] CONCRETE SCULPTOR, HEATHER 112 .1 Candidiasis, Of Vulva And Vagina 10/20/2010 [employer], HEATHER 599 .0 Uti 10/20/2010 [facility] CONCRETE SCULPTOR, HEATHER 112 .1 Candidiasis, Of Vulva And Vagina 10/20/2010 [facility] CONCRETE SCULPTOR, HEATHER 599 .0 Uti 10/20/2010 [facility] CONCRETE SCULPTOR, HEATHER 112 .1 Candidiasis, Of Vulva And Vagina 10/20/2010 [employer] SC[employer]OR, HEATHER 599 .0 Uti 10/20/2010 [employer] SC[employer]PTOR, HEATHER 112 .1 Candidiasis, Of Vulva And Vagina 10/20/2010 [employer] SCULPTOR, HEATHER 599 .0 Uti 10/20/2010 [employer] SCULPTOR, HEATHER 112 .1 Candidiasis, Of Vulva And Vagina 10/20/2010 [employer] SC[employer]PTOR, HEATHER 599 .0 Uti 10/20/2010 [employer] SC[employer]PTOR, MARIANNA 11 2.1 Candidiasis, Of Vulva And Vagina 10/20/2010 [employer] SCULPTOR, MARIANNA 59 9.0 Uti 10/20/2010 [employer] SCULPTOR, MARIANNA 11 2.1 Candidiasis, Of Vulva And Vagina 10/20/2010 [employer]E SCULPTOR, MARIANNA 59 9.0 Uti 10/24/2010 [employer] SC[employer]OR, HEATHER 250 .00 DIABETES MELLITUS TYPE 2 10/24/2010 [employer] SC[employer]OR, HEATHER 466 .0 Bronchitis, Acute 10/24/2010 [facility] CONCRETE SCULPTOR, HEATHER 496 PULMONARY OBSTRUCTIVE DISORDERS 10/24/2010 [employer] SC[employer]OR, HEATHER 250 .00 DIABETES MELLITUS TYPE 2 10/24/2010 [employer] SC[employer]PTOR, HEATHER 466 .0 Bronchitis, Acute 10/24/2010 [employer] SC[employer]OR, HEATHER 496 PULMONARY OBSTRUCTIVE DISORDERS 10/24/2010 [employer] SC[employer]PTOR, HEATHER 250 .00 DIABETES MELLITUS TYPE 2 10/24/2010 [employer] SCULPTOR, HETAHER 466 .0 Bronchitis, Acute 10/24/2010 [employer] SCULPTOR, HEATHER 496 PULMONARY OBSTRUCTIVE DISORDERS 10/24/2010 [employer] SCULPTOR, HEATHER 250 .00 DIABETES MELLITUS TYPE 2 10/24/2010 [employer] SCULPTOR, HEATHER 466 .0 Bronchitis, Acute 10/24/2010 [employer] SCULPTOR, HEATHER 496 PULMONARY OBSTRUCTIVE DISORDERS 10/24/2010 [employer] SCULPTOR, HEATHER 250 .00 DIABETES MELLITUS TYPE 2 10/24/2010 [employer] SCULPTOR, HEATHER 466 .0 Bronchitis, Acute 10/24/2010 [employer] SCULPTOR, HEATHER 496 PULMONARY OBSTRUCTIVE DISORDERS 10/24/2010 [employer] SCULPTOR, HEATHER 250 .00 DIABETES MELLITUS TYPE 2 10/24/2010 [employer] SCULPTOR, HEATHER 466 .0 Bronchitis, Acute 10/24/2010 [employer] SCULPTOR, HEATHER 496 PULMONARY OBSTRUCTIVE DISORDERS 10/24/2010 [employer] SCULPTOR, HEATHER 250 .00 DIABETES MELLITUS TYPE 2 10/24/2010 [employer] SCULPTOR, HEATHER 466 .0 Bronchitis, Acute 10/24/2010 [employer] SCULPTOR, HEATHER 496 PULMONARY OBSTRUCTIVE DISORDERS 10/24/2010 [employer] SCULPTOR, MARIANNA 250.00 DIABETES MELLITUS TYPE 2 10/24/2010 [employer] CON[employer]E SCULPTOR, MARIANNA 46 6.0 Bronchitis, Acute 10/24/2010 [employer]IND CONCRETE SCULPTOR, MARIANNA 49 6 PULMONARY OBSTRUCTIVE DISORDERS 10/24/2010 G[employer]IND CONCRETE SCULPTOR, MARIANNA 250.00 DIABETES MELLITUS TYPE 2 10/24/2010 [employer]IND CONCRETE SCULPTOR, MARIANNA 46 6.0 Bronchitis, Acute 10/24/2010 [employer]IND CONCRETE SCULPTOR, MARIANNA 49 6 PULMONARY OBSTRUCTIVE DISORDERS 05/12/2011 [facility] CONCRETE SCULPTOR, HEATHER 703 .0 Ingrowing Nail 05/12/2011 [facility] CONCRETE SCULPTOR, HEATHER 726 .91 EXOSTOSIS OF UNSPECIFIED SITE 05/12/2011 [facility] CONCRETE SCULPTOR, HEATHER 703 .0 Ingrowing Nail 05/12/2011 [employer], HEATHER 726 .91 EXOSTOSIS OF UNSPECIFIED SITE 05/12/2011 [facility] CONCRETE SCULPTOR, HEATHER 703 .0 Ingrowing Nail 05/12/2011 [employer] SC[employer]OR, HEATHER 726 .91 EXOSTOSIS OF UNSPECIFIED SITE 05/12/2011 [facility] CONCRETE SCULPTOR, HEATHER 703 .0 Ingrowing Nail 05/12/2011 [employer] SC[employer]OR, HEATHER 726 .91 EXOSTOSIS OF UNSPECIFIED SITE 05/12/2011 [employer] SCULPTOR, HEATHER 703 .0 Ingrowing Nail 05/12/2011 [employer] SC[employer]PTOR, HEATHER 726 .91 EXOSTOSIS OF UNSPECIFIED SITE 05/12/2011 [employer] SC[employer]OR, HEATHER 703 .0 Ingrowing Nail 05/12/2011 [employer] SC[employer]OR, HEATHER 726 .91 EXOSTOSIS OF UNSPECIFIED SITE 05/12/2011 [employer] SC[employer]PTOR, HEATHER 703 .0 Ingrowing Nail 05/12/2011 [employer] SCULPTOR, HEATHER 726 .91 EXOSTOSIS OF UNSPECIFIED SITE 05/12/2011 [employer] SCULPTOR, MARIANNA 70 3.0 Ingrowing Nail 05/12/2011 [employer] CONCR[employer]E SCULPTOR, MARIANNA 726.91 EXOSTOSIS OF UNSPECIFIED SITE 05/12/2011 [employer]IND CONCR[employer]E SCULPTOR, MARIANNA 70 3.0 Ingrowing Nail 05/12/2011 [employer] CON[employer] SCULPTOR, MARIANNA 726.91 EXOSTOSIS OF UNSPECIFIED SITE 06/02/2011 [employer] SC[employer]OR, HEATHER 078 .12 Plantar Wart 06/02/2011 [employer] SC[employer]OR, HEATHER 078 .12 Plantar Wart 06/02/2011 [employer] SC[employer]OR, HEATHER 078 .12 Plantar Wart 06/02/2011 [employer] SCULPTOR, HEATHER 078 .12 Plantar Wart 06/02/2011 [employer] SCULPTOR, HEATHER 078 .12 Plantar Wart 06/02/2011 [employer] SC[employer]PTOR, HEATHER 078 .12 Plantar Wart 06/02/2011 [employer] SCULPTOR, HEATHER 078 .12 Plantar Wart 06/02/2011 [employer] SC[employer]PTOR, MARIANNA 078.12 Plantar Wart 06/02/2011 [employer] SCULPTOR, MARIANNA 078.12 Plantar Wart 07/05/2011 [employer] SC[employer]OR, HEATHER 466 .0 ACUTE BRONCHITIS 07/05/2011 [employer] SCULPTOR, HEATHER 466 .0 ACUTE BRONCHITIS 07/05/2011 [employer] SCULPTOR, HEATHER 466 .0 ACUTE BRONCHITIS 07/05/2011 [employer] SCULPTOR, HEATHER 466 .0 ACUTE BRONCHITIS 07/05/2011 [employer]E SCULPTOR, HEATHER 466 .0 ACUTE BRONCHITIS 07/05/2011 [employer]E SCULPTOR, HEATHER 466 .0 ACUTE BRONCHITIS 07/05/2011 [employer]E SCULPTOR, HEATHER 466 .0 ACUTE BRONCHITIS 07/05/2011 [employer] CONCR[employer]E SCULPTOR, MARIANNA 46 6.0 ACUTE BRONCHITIS 07/05/2011 [employer] CONCR[employer]E SCULPTOR, MARIANNA 46 6.0 ACUTE BRONCHITIS 11/20/2011 [employer]E SCULPTOR, HEATHER 682 .9 CELLULITIS 11/20/2011 [employer]E SCULPTOR, HEATHER 682 .9 CELLULITIS 11/20/2011 [employer]E SCULPTOR, HEATHER 682 .9 CELLULITIS 11/20/2011 [employer]E SCULPTOR, HEATHER 682 .9 CELLULITIS 11/20/2011 [employer]E SCULPTOR, HEATHER 682 .9 CELLULITIS 11/20/2011 [employer]E SCULPTOR, HEATHER 682 .9 CELLULITIS 11/20/2011 [employer]E SCULPTOR, HEATHER 682 .9 CELLULITIS 11/20/2011 [employer] CON[employer]E SCULPTOR, MARIANNA 68 2.9 CELLULITIS 11/20/2011 [employer] CONCRETE SCULPTOR, MARIANNA 68 2.9 CELLULITIS 12/22/2011 [employer] SCUL[employer]OR, HEATHER 401 .1 ESSENTIAL HYPERTENSION BENIGN 12/22/2011 [employer] SCULPTOR, HEATHER 401 .1 ESSENTIAL HYPERTENSION BENIGN 12/22/2011 [employer]E SCULPTOR, HEATHER 401 .1 ESSENTIAL HYPERTENSION BENIGN 12/22/2011 [employer]E SCULPTOR, HEATHER 401 .1 ESSENTIAL HYPERTENSION BENIGN 12/22/2011 [facility] CONCRETE SCULPTOR, HEATHER 401 .1 ESSENTIAL HYPERTENSION BENIGN 12/22/2011 [facility] CONCRETE SCULPTOR, HEATHER 401 .1 ESSENTIAL HYPERTENSION BENIGN 12/22/2011 [facility] CONCRETE SCULPTOR, HEATHER 401 .1 ESSENTIAL HYPERTENSION BENIGN 12/22/2011 [employer] SCULPTOR, MARIANNA 40 1.1 ESSENTIAL HYPERTENSION BENIGN 12/22/2011 [employer] CON[employer]E SCULPTOR, MARIANNA 40 1.1 ESSENTIAL HYPERTENSION BENIGN 04/09/2012 [facility] KYLE, HEATHER 272 .2 HYPERLIPIDEMIA 04/09/2012 [facility] CONCRETE SCULPTORHEATHER Sunshine V04 .81 Need For Prophylactic Vaccination And Inoculation Against Influenza 04/09/2012 [facility] HEATHER WRIGHT 272 .2 HYPERLIPIDEMIA 04/09/2012 [facility] HEATHER WRIGHT V04 .81 Need For Prophylactic Vaccination And Inoculation Against Influenza 04/09/2012 BR[facility] HEATHER WRIGHT 272 .2 HYPERLIPIDEMIA 04/09/2012 [facility] CONCRETE SCULPTOR, HEATHER V04 .81 Need For Prophylactic Vaccination And Inoculation Against Influenza 04/09/2012 [facility] HEATHER WRIGHT 272 .2 HYPERLIPIDEMIA 04/09/2012 [facility] CONCRETE SCULPTORHEATHER Sunshine V04 .81 Need For Prophylactic Vaccination And Inoculation Against Influenza 04/09/2012 BR[facility]E HEATHER WRIGHT 272 .2 HYPERLIPIDEMIA 04/09/2012 [facility] HEAHTER WRIGHT V04 .81 Need For Prophylactic Vaccination And Inoculation Against Influenza 04/09/2012 BR[facility] HEATHER WRIGHT 272 .2 HYPERLIPIDEMIA 04/09/2012 [employer]E SCULPTOR, HEATHER V04 .81 Need For Prophylactic Vaccination And Inoculation Against Influenza 04/09/2012 [employer] SCULPTOR, HEATHER 272 .2 HYPERLIPIDEMIA 04/09/2012 [employer] CON[employer]E SCULPTOR, HEATHER V04 .81 Need For Prophylactic Vaccination And Inoculation Against Influenza 04/09/2012 GOVIND CONCRETE SCULPTORMARIANNA Sunshine 27 2.2 HYPERLIPIDEMIA 04/09/2012 GOVIND CONCRETE SCULPTORMARIANNA Sunshine V04.81 Need For Prophylactic Vaccination And Inoculation Agai nst Influenza 04/09/2012 GOVIND CONCRETE SCULPTORMARIANNA Sunshine 27 2.2 HYPERLIPIDEMIA 04/09/2012 GOVIND CONCRETE SCULPTORMARIANNA V04.81 Need For Prophylactic Vaccination And Inoculation Agai nst Influenza 05/14/2012 [employer]E SCULPTOR, HEATHER 682 .9 Cellulitis/abscess 05/14/2012 [employer]E SCULPTOR, HEATHER 682 .9 Cellulitis/abscess 05/14/2012 [employer]E SCULPTOR, HEATHER 682 .9 Cellulitis/abscess 05/14/2012 [employer]E SCULPTOR, HEATHER 682 .9 Cellulitis/abscess 05/14/2012 [employer]E SCULPTOR, HEATHER 682 .9 Cellulitis/abscess 05/14/2012 [employer]E SCULPTOR, HEATHER 682 .9 Cellulitis/abscess 05/14/2012 [employer] CON[employer]E SCULPTOR, HEATHER 682 .9 Cellulitis/abscess 05/14/2012 GOV[facility] CONCRETE SCULPTORMARIANNA Sunshine 68 2.9 Cellulitis/abscess 05/14/2012 MARIANNA FAUST APRN 68 2.9 Cellulitis/abscess 06/24/2012 [employer]E SCULPTOR, HEATHER 112 .1 Candidiasis, Of Vulva And Vagina 06/24/2012 [employer]E SCULPTOR, HEATHER 112 .1 Candidiasis, Of Vulva And Vagina 06/24/2012 [facility] CONCRETE SCULPTORHEATHER 112 .1 Candidiasis, Of Vulva And Vagina 06/24/2012 [employer]E SCULPTOR, HEATHER 112 .1 Candidiasis, Of Vulva And Vagina 06/24/2012 [employer]E SCULPTOR, HEATHER 112 .1 Candidiasis, Of Vulva And Vagina 06/24/2012 [facility] CONCRETE SCULPTORHEATHER 112 .1 Candidiasis, Of Vulva And Vagina 06/24/2012 [employer] CON[employer]ETE SCULPTOR, HEATHER 112 .1 Candidiasis, Of Vulva And Vagina 06/24/2012 [employer] CONCRETE SCULPTOR MARIANNA 11 2.1 Candidiasis, Of Vulva And Vagina 06/24/2012 [employer] CONCRETE SCULPTOR, MARIANNA 11 2.1 Candidiasis, Of Vulva And Vagina 06/28/2012 [employer] CON[employer]E SCULPTOR, HEATHER 110 .1 Onychomycosis 06/28/2012 [employer] CONCRETE SCULPTOR, HEATHER 703 .8 Other Specified Diseases Of Nail 06/28/2012 [employer] CON[employer]E SCULPTOR, HEATHER 110 .1 Onychomycosis 06/28/2012 [employer] CON[employer]ETE SCULPTOR, HEATHER 703 .8 Other Specified Diseases Of Nail 06/28/2012 [employer] CON[employer]E SCULPTOR, HEATHER 110 .1 Onychomycosis 06/28/2012 [employer] CON[employer]ETE SCULPTOR, HEATHER 703 .8 Other Specified Diseases Of Nail 06/28/2012 [employer] CONCRETE SCULPTOR, HEATHER 110 .1 Onychomycosis 06/28/2012 [employer] CONCRETE SCULPTOR, HEATHER 703 .8 Other Specified Diseases Of Nail 06/28/2012 [employer] CON[employer]ETE SCULPTOR, HEATHER 110 .1 Onychomycosis 06/28/2012 [employer] CONCRETE SCULPTOR, HEATHER 703 .8 Other Specified Diseases Of Nail 06/28/2012 [employer] CONCRETE SCULPTOR, HEATHER 110 .1 Onychomycosis 06/28/2012 [employer] CON[employer]ETE SCULPTOR, HEATHER 703 .8 Other Specified Diseases Of Nail 06/28/2012 [employer] CON[employer]ETE SCULPTOR, HEATHER 110 .1 Onychomycosis 06/28/2012 [employer] CONCRETE SCULPTOR, HEATHER 703 .8 Other Specified Diseases Of Nail 06/28/2012 [employer] CONCRETE SCULPTOR MARIANNA 11 0.1 Onychomycosis 06/28/2012 GOVIND CONCRETE SCULPTOR, MARIANNA 70 3.8 Other Specified Diseases Of Nail 06/28/2012 G[employer]IND CONCRETE SCULPTOR MARIANNA 11 0.1 Onychomycosis 06/28/2012 G[employer]IND CONCRETE SCULPTOR, MARIANNA 70 3.8 Other Specified Diseases Of Nail 08/21/2012 [employer] CONCRETE SCULPTOR, HEATHER 682 .9 Cellulitis/abscess 08/21/2012 [employer] CONCRETE SCULPTOR, HEATHER V72 .31 Gynecological Exam 08/21/2012 [employer] CON[employer]ETE SCULPTOR, HEATHER 682 .9 Cellulitis/abscess 08/21/2012 [employer] CON[employer]ETE SCULPTOR, HEATHER V72 .31 Gynecological Exam 08/21/2012 [employer] CON[employer]ETE SCULPTOR, HEATHER 682 .9 Cellulitis/abscess 08/21/2012 [employer] CONCRETE SCULPTOR, HEATHER V72 .31 Gynecological Exam 08/21/2012 [employer] CON[employer]ETE SCULPTOR, HEATHER 682 .9 Cellulitis/abscess 08/21/2012 [employer] CON[employer]E SCULPTOR, HEATHER V72 .31 Gynecological Exam 08/21/2012 [employer] CON[employer]ETE SCULPTOR, HEATHER 682 .9 Cellulitis/abscess 08/21/2012 [employer] CON[employer]ETE SCULPTOR, HEATHER V72 .31 Gynecological Exam 08/21/2012 [employer] CON[employer]ETE SCULPTOR, HEATHER 682 .9 Cellulitis/abscess 08/21/2012 [employer] CON[employer]ETE SCULPTOR, HEATHER V72 .31 Gynecological Exam 08/21/2012 [employer] CONCRETE SCULPTOR, HEATHER 682 .9 Cellulitis/abscess 08/21/2012 [employer] CON[employer]ETE SCULPTOR, HEATHER V72 .31 Gynecological Exam 08/21/2012 GOVIND CONCRETE SCULPTOR, MARIANNA 68 2.9 Cellulitis/abscess 08/21/2012 G[employer]IND CONCRETE SCULPTOR, MARIANNA V72.31 Gynecological Exam 08/21/2012 G[employer]IND CONCRETE SCULPTOR, MARIANNA 68 2.9 Cellulitis/abscess 08/21/2012 G[employer]IND CONCRETE SCULPTOR, MARIANNA V72.31 Gynecological Exam 10/08/2012 [facility] CONCRETE SCULPTOR, HEATHER 466 .0 Bronchitis, Acute 10/08/2012 [employer] CON[employer]E SCULPTOR, HEATHER 466 .0 Bronchitis, Acute 10/08/2012 [facility] CONCRETE SCULPTOR, HEATHER 466 .0 Bronchitis, Acute 10/08/2012 [employer] CON[employer]E SCULPTOR, HEATHER 466 .0 Bronchitis, Acute 10/08/2012 [employer] CON[employer]E SCULPTOR, HEATHER 466 .0 Bronchitis, Acute 10/08/2012 [employer]E SCULPTOR, HEATHER 466 .0 Bronchitis, Acute 10/08/2012 [employer] CON[employer]E SCULPTOR, HEATHER 466 .0 Bronchitis, Acute 10/08/2012 [employer] CONCRETE SCULPTOR, MARIANNA 46 6.0 Bronchitis, Acute 10/08/2012 [employer] CONCRETE SCULPTOR, MARIANNA 46 6.0 Bronchitis, Acute 12/05/2012 [facility] CONCRETE SCULPTOR, HEATHER 599 .0 Uti 12/05/2012 [employer], HEATHER 599 .0 Uti 12/05/2012 [employer], HEATHER 599 .0 Uti 12/05/2012 [employer], HEATHER 599 .0 Uti 12/05/2012 [employer], HEATHER 599 .0 Uti 12/05/2012 [employer], HEATHER 599 .0 Uti 12/05/2012 [employer], HEATHER 599 .0 Uti 12/05/2012 [employer], MARIANNA 59 9.0 Uti 12/05/2012 [employer], MARIANNA 59 9.0 Uti 05/21/2013 [employer], HEATHER 285 .9 ANEMIA, UNSPECIFIED 05/21/2013 [employer], HEATHER 285 .9 ANEMIA, UNSPECIFIED 05/21/2013 [employer], HEATHER 285 .9 ANEMIA, UNSPECIFIED 05/21/2013 [employer], HEATHER 285 .9 ANEMIA, UNSPECIFIED 05/21/2013 [employer], HEATHER 285 .9 ANEMIA, UNSPECIFIED 05/21/2013 [employer], HEATHER 285 .9 ANEMIA, UNSPECIFIED 05/21/2013 [employer], HEATHER 285 .9 ANEMIA, UNSPECIFIED 05/21/2013 [employer]OVIND [employer], MARIANNA 28 5.9 ANEMIA, UNSPECIFIED 08/07/2013 [employer]DEE [employer], HEATHER 682 .5 CELLULITIS AND ABSCESS OF BUTTOCK 08/07/2013 [employer]E [employer], HEATHER 682 .5 CELLULITIS AND ABSCESS OF BUTTOCK 08/07/2013 [employer]E [employer], HEATHER 682 .5 CELLULITIS AND ABSCESS OF BUTTOCK 08/07/2013 [employer]E [employer], HEATHER 682 .5 CELLULITIS AND ABSCESS OF BUTTOCK 08/07/2013 [employer]E [employer]OR, HEATHER 682 .5 CELLULITIS AND ABSCESS OF BUTTOCK 08/07/2013 [employer]E [employer], HEATHER 682 .5 CELLULITIS AND ABSCESS OF BUTTOCK 08/07/2013 [employer]DEE [employer]OR, HEATHER 682 .5 CELLULITIS AND ABSCESS OF BUTTOCK 12/12/2013 [employer]DEE [employer]OR, HEATHER 250 .02 DIABETES MELLITUS WITHOUT MENTION [...] MALIGNANT NEOPLASM OF UNSP KIDNEY, EXCEP 10/13/2018 DANILE HERNANDEZ MD, Ot E11.9 TYPE 2 DIABETES [...] 9 ACQUIRED ABSENCE OF OTHER ORGANS 11/01/2018 DIAEN DELCID MD Ot Z92.2 1 PERSONAL HISTORY [...] OF BOTH CERVIX AND UTER 11/14/2018 DANIEL HERNANDZE MD, Ot Z92.21 PERSONAL HISTORY OF ANTINEOPLASTIC [...] Z90.5 ACQUIRED ABSENCE OF KIDNEY 11/29/2018 DIANE DECLID MD Ot Z90.7 10 ACQUIRED ABSENCE OF [...] Funes Ot R10.84 GENERALIZED ABDOMINAL PAIN 01/02/2019 LA JOYA DOJAZIEL Ot B37.49 OTHER UROGENITAL CANDIDIASIS 01/02/2019 WONG DO, JAZIEL Ot E11.9 TYPE 2 DIABETES MELLITUS WITHOUT COMPLIC 01/02/2019 WONG DO, JAZIEL Ot I10 ESSENTIAL (PRIMARY) HYPERTENSION 01/02/2019 LA JOYA , JAZIEL Ot J45.909 UNSPECIFIED ASTHMA, UNCOMPLICATED [...] JAZIEL Ot Z98.51 TUBAL LIGATION STATUS 01/04/2019 LA JOYA DO, JAZIEL Ot E11.9 TYPE 2 DIABETES MELLITUS WITHOUT COMPLIC 01/04/2019 LA JOYA DO, JAZIEL Ot I10 ESSENTIAL (PRIMARY) HYPERTENSION 01/04/2019 LA JOYA DO, JAZIEL Ot J45.909 UNSPECIFIED ASTHMA, UNCOMPLICATED [...] OF BOTH CERVIX AND UTER 01/05/2019 TARIK GOERGE DO Ot Z90.89 ACQUIRED ABSENCE OF OTHER [...] Ot Z98.5 1 TUBAL LIGATION STATUS 01/17/2019 ABSS DO, DEBBIE L Ot E11.9 TYPE 2 [...] [place] DO Ot Z79.8 99 OTHER [employer] (CURRENT) DRUG THERAPY 03/24/2019 MIKAYLA DE LOS [...] [place] DO Ot Z79.8 99 OTHER [facility] (CURRENT) DRUG THERAPY 03/27/2019 MIKAYLA DE LOS [...] 04/14/2019 LUCÍA FUENTES MD Ot Z79. 84 [employer] (CURRENT) USE OF ORAL HYPOGLYC 04/14/2019 LUCÍA [...] 04/16/2019 LUCÍA FUENTES MD, Ot Z79. 84 [employer] (CURRENT) USE OF ORAL HYPOGLYC 04/16/2019 LUCÍA [...] 18 ENCOUNTER FOR OTHER PREPROCEDURAL EXAMIN 05/12/2019 MARILUZROBERT MARLEN BLANCAIC B Ot Z01.8 18 [...] F17.2 10 NICOTINE DEPENDENCE, CIGARETTES, UNCOMPL 06/02/2019 MIKAYLA DE [place] DO B Ot I10 ESSENTIAL (PRIMARY) HYPERTENSION 06/02/2019 [...] LOS SANTOS DO Ot Z79.8 99 OTHER [facility] (CURRENT) DRUG THERAPY 06/02/2019 MIKAYLA DE LOS SANTOS DO Ot Z83.3 FAMILY HISTORY OF DIABETES MELLITUS 06/02/2019 MIKAYLA DE LOS SANTOS DO Ot Z90.7 10 ACQUIRED ABSENCE OF BOTH CERVIX AND UTER 06/02/2019 MIKAYLA DE LOS SANTOS DO Ot D12.2 BENIGN NEOPLASM OF ASCENDING COLON 06/02/2019 MIKAYLA DE LO SSANTOS DO Ot D12.5 BENIGN NEOPLASM OF SIGMOID COLON 06/02/2019 MIKAYLA DE LOS SANTOS DO Ot E11.9 TYPE 2 DIABETES MELLITUS WITHOUT COMPLIC 06/02/2019 MIKAYLA DE LOS SANTOS DO Ot E66.9 OBESITY, UNSPECIFIED 06/02/2019 MIKAYLA DE LOS SANTOS DO Ot F17.2 10 NICOTINE DEPENDENCE, CIGARETTES, UNCOMPL 06/02/2019 MIKAYLA DE LOS SANTOS DO Ot G47.3 3 OBSTRUCTIVE SLEEP APNEA (ADULT) (PEDIATR 06/02/2019 MIKAYLA DE LOS SANTOS DO Ot I10 ESSENTIAL (PRIMARY) HYPERTENSION 06/02/2019 MIKAYLA DE LOS SANTOS DO Ot J44.9 CHRONIC OBSTRUCTIVE PULMONARY DISEASE, U 06/02/2019 MIKAYLA DE LOS SANTOS DO Ot K64.8 OTHER HEMORRHOIDS 06/02/2019 MIKAYLA DE LOS SANTOS DO Ot Z12.1 1 ENCOUNTER FOR SCREENING FOR MALIGNANT NE 06/02/2019 MIKAYLA DE LOS SANTOS DO Ot Z68.3 6 BODY MASS INDEX (BMI) 36.0-36.9, ADULT 06/02/2019 MIKAYLA DE LOS SANTOS DO Ot Z79.1 [employer] (CURRENT) USE OF NON-STEROIDAL 06/02/2019 MIKAYLA DE LOS SANTOS DO Ot Z79.8 99 OTHER [facility] (CURRENT) DRUG THERAPY 06/02/2019 MIKAYLA DE LOS SANTOS DO Ot Z83.3 FAMILY HISTORY OF DIABETES MELLITUS 06/02/2019 MIKAYLA DE LOS SANTOS DO Ot Z85.5 28 PERSONAL HISTORY OF OTHER MALIGNANT NEOP 06/02/2019 MIKAYLA DE LOS SANTOS DO Ot Z86.0 10 PERSONAL HISTORY OF COLONIC POLYPS 06/02/2019 MIKAYLA DE LOS SANTOS DO Ot Z90.5 ACQUIRED ABSENCE OF KIDNEY 06/02/2019 MIKAYLA DE LOS SANTOS DO Ot Z90.7 10 ACQUIRED ABSENCE OF BOTH CERVIX AND UTER 06/02/2019 MIKAYLA DE LOS SANTOS DO Ot Z96.4 1 PRESENCE OF INSULIN PUMP (EXTERNAL) (INT 06/05/2019 MIKAYLA DE LOS SANTOS DO Ot [...] (PRIMARY) HYPERTENSION 06/05/2019 MIKAYLA DE LOS SANTOS DO, Ot J44.9 CHRONIC OBSTRUCTIVE PULMONARY DISEASE, U 06/05/2019 IMKAYLA DE LOS SANTOS DO, Ot K64.8 OTHER HEMORRHOIDS 06/05/2019 MIKAYLA DE LOS SANTOS DO, Ot Z12.1 1 ENCOUNTER FOR SCREENING FOR MALIGNANT NE 06/05/2019 MIKAYLA DE LOS SANTOS DO Ot Z68.3 6 BODY MASS INDEX (BMI) 36.0-36.9, ADULT 06/05/2019 MIKAYLA DE LOS SANTOS DO, Ot Z79.1 [facility] (CURRENT) USE OF NON-STEROIDAL 06/05/2019 MIKAYLA DE LOS SANTOS DO Ot Z79.8 99 OTHER [employer] (CURRENT) DRUG THERAPY 06/05/2019 MIKAYLA DE LOS [...] INSULIN PUMP (EXTERNAL) (INT 06/13/2019 JAZIEL WONG DO, Ot B19.20 UNSPECIFIED VIRAL HEPATITIS C WITHOUT HE 06/13/2019 JAZIEL WONG DO Ot E11.9 TYPE 2 DIABETES MELLITUS WITHOUT COMPLIC 06/13/2019 JAZIEL WONG DO, Ot F17.210 NICOTINE DEPENDENCE, CIGARETTES, UNCOMPL 06/13/2019 JAZIEL WONG DO Ot F39 UNSPECIFIED MOOD [AFFECTIVE] DISORDER 06/13/2019 JAZIEL WONG DO, Ot F41.0 PANIC DISORDER [EPISODIC PAROXYSMAL ANXI 06/13/2019 JAZIEL WONG DO Ot I10 ESSENTIAL (PRIMARY) HYPERTENSION 06/13/2019 JAZIEL WONG DO, Ot J45.909 UNSPECIFIED ASTHMA, UNCOMPLICATED 06/13/2019 JAZIEL WONG DO Ot Z79.84 [employer] (CURRENT) USE OF ORAL HYPOGLYC 06/13/2019 MARVIN BLANCA JAZIEL Ot Z85.528 PERSONAL HISTORY OF OTHER MALIGNANT NEOP 06/13/2019 MARVIN BLANCA, JAZIEL Ot Z87.442 PERSONAL HISTORY OF URINARY CALCULI 06/13/2019 JAZIEL WONG DO Ot Z90.710 ACQUIRED ABSENCE OF BOTH CERVIX AND UTER 06/13/2019 JAZIEL WONG DO Ot Z90.89 ACQUIRED ABSENCE OF OTHER ORGANS 06/13/2019 JAZIEL WONG DO Ot Z98.51 TUBAL LIGATION STATUS 06/17/2019 JAZIEL WONG DO Ot B19.20 UNSPECIFIED VIRAL HEPATITIS C WITHOUT HE 06/17/2019 JAZIEL WONG DO Ot E11.9 TYPE 2 DIABETES MELLITUS WITHOUT COMPLIC 06/17/2019 JAZIEL WONG DO Ot F17.210 NICOTINE DEPENDENCE, CIGARETTES, UNCOMPL 06/17/2019 JAZIEL WONG DO Ot F39 UNSPECIFIED MOOD [AFFECTIVE] DISORDER 06/17/2019 JAZIEL WONG DO Ot F41.0 PANIC DISORDER [EPISODIC PAROXYSMAL ANXI 06/17/2019 JAZIEL WONG DO Ot I10 ESSENTIAL (PRIMARY) HYPERTENSION 06/17/2019 JAZIEL WONG DO, Ot J45.909 UNSPECIFIED ASTHMA, UNCOMPLICATED 06/17/2019 JAZIEL WONG DO Ot Z79.84 [facility] (CURRENT) USE OF ORAL HYPOGLYC 06/17/2019 JAZIEL WONG DO Ot Z85.528 PERSONAL HISTORY OF OTHER MALIGNANT NEOP 06/17/2019 JAZIEL WONG DO Ot Z87.442 PERSONAL HISTORY OF URINARY CALCULI 06/17/2019 JAZIEL WONG DO Ot Z90.710 ACQUIRED ABSENCE OF BOTH CERVIX AND UTER 06/17/2019 JAZIEL WONG DO Ot Z90.89 ACQUIRED ABSENCE OF OTHER ORGANS 06/17/2019 JAZIEL WONG DO Ot Z98.51 TUBAL LIGATION STATUS 06/18/2019 KEIRY BATEMAN, MAKSIM Hanna Ot B19.20 UNSPECIFIED VIRAL HEPATITIS C WITHOUT HE 06/18/2019 MAKSIM RICCI MD, Ot E11.9 TYPE 2 DIABETES MELLITUS WITHOUT COMPLIC 06/18/2019 MAKSIM RICCI MD, Ot F41.9 ANXIETY DISORDER, UNSPECIFIED 06/18/2019 MAKSIM RICCI MD, Ot I1 0 ESSENTIAL (PRIMARY) HYPERTENSION 06/18/2019 MAKSIM RICCI MD, Ot J45.909 UNSPECIFIED ASTHMA, UNCOMPLICATED 06/18/2019 MAKSIM RICCI MD, Ot Z77.22 CNTCT W AND EXPSR TO ENVIRON TOBACCO SMO 06/18/2019 MAKSIM RICCI MD, Ot Z79.84 [employer] (CURRENT) USE OF ORAL HYPOGLYC 06/18/2019 MAKSIM RICCI MD Ot Z85.528 PERSONAL HISTORY OF OTHER MALIGNANT NEOP 06/18/2019 MAKSIM RICCI MD Ot Z87.442 PERSONAL HISTORY OF URINARY CALCULI 06/18/2019 MAKSIM RICCI MD Ot Z90.5 ACQUIRED ABSENCE OF KIDNEY 06/18/2019 MAKSIM RICCI MD Ot Z90.710 ACQUIRED ABSENCE OF BOTH CERVIX AND UTER 06/18/2019 MAKSIM RICCI MD Ot Z90.89 ACQUIRED ABSENCE OF OTHER ORGANS 06/18/2019 MAKSIM RICCI MD Ot Z98.51 TUBAL LIGATION STATUS 06/21/2019 MARK BOJORQUEZ MD Ot B19. 20 UNSPECIFIED VIRAL HEPATITIS C WITHOUT HE 06/21/2019 MARK BOJORQUEZ MD Ot E11. 65 TYPE 2 DIABETES MELLITUS WITH HYPERGLYCE 06/21/2019 MARK BOJORQUEZ MD Ot I10 ESSENTIAL (PRIMARY) HYPERTENSION 06/21/2019 MARK BOJORQUEZ MD Ot J40 BRONCHITIS, NOT SPECIFIED ACUTE OR CH 06/21/2019 MARK BOJORQUEZ MD Ot J44. 0 CHR OBSTRUCTIVE PULMON DISEASE WITH (ACU 06/21/2019 MARK BOJORQUEZ MD Ot R06. 02 SHORTNESS OF BREATH 06/21/2019 MARK BOJORQUEZ MD Ot Z77. 22 CNTCT W AND EXPSR TO ENVIRON TOBACCO SMO 06/21/2019 MARK BOJORQUEZ MD Ot Z79. 84 [employer] (CURRENT) USE OF ORAL HYPOGLYC 06/21/2019 MARK BOJORQUEZ MD Ot Z85.528 PERSONAL HISTORY OF OTHER MALIGNANT NEOP 06/21/2019 MARK BOJORQUEZ MD Ot Z90. 5 ACQUIRED ABSENCE OF KIDNEY 06/21/2019 MARK BOJORQUEZ MD Ot Z90.710 ACQUIRED ABSENCE OF BOTH CERVIX AND UTER 06/21/2019 MARK BOJORQUEZ MD Ot Z90. 89 ACQUIRED ABSENCE OF OTHER ORGANS 06/21/2019 MARK BOJORQUEZ MD Ot Z98. 51 TUBAL LIGATION STATUS 06/25/2019 MARK BOJORQUEZ MD Ot B19. 20 UNSPECIFIED VIRAL HEPATITIS C WITHOUT HE 06/25/2019 MARK BOJORQUEZ MD Ot E11. 65 TYPE [...] 06/25/2019 MARK BOJORQUEZ MD Ot Z79. 84 [employer] (CURRENT) USE OF ORAL HYPOGLYC 06/25/2019 MARK [...] 06/27/2019 MARK BOJORQUEZ MD Ot Z79. 84 [facility] (CURRENT) USE OF ORAL HYPOGLYC 06/27/2019 MARK BOJORQUEZ MD Ot Z85.528 PERSONAL HISTORY OF OTHER MALIGNANT NEOP 06/27/2019 MARK BOJORQUEZ MD Ot Z90. 5 ACQUIRED ABSENCE OF KIDNEY 06/27/2019 MARK BOJORQUEZ MD Ot Z90.710 ACQUIRED ABSENCE OF BOTH CERVIX AND UTER 06/27/2019 MARK BOJORQUEZ MD Ot Z90. 89 ACQUIRED ABSENCE OF OTHER ORGANS 06/27/2019 MARYELLEN BATEMAN, MARK Witt Ot Z98. 51 TUBAL LIGATION STATUS 06/27/2019 ROVENSTINE DOEDNA Ot B19.20 UNSPECIFIED VIRAL HEPATITIS C WITHOUT HE 06/27/2019 ROVENSTINE DOEDNA Ot E11.9 TYPE 2 DIABETES MELLITUS WITHOUT COMPLIC 06/27/2019 ROVENSTINE DOEDNA Ot E78.00 PURE HYPERCHOLESTEROLEMIA, UNSPECIFIED 06/27/2019 ROVENSTINE DOEDNA Ot F31.9 BIPOLAR DISORDER, UNSPECIFIED 06/27/2019 ROVENSTINE DOEDNA Ot F41.9 ANXIETY DISORDER, UNSPECIFIED 06/27/2019 ROVENSTINE DOEDNA Ot G47.30 SLEEP APNEA, UNSPECIFIED 06/27/2019 ROVENSTINE DOEDNA Ot I10 ESSENTIAL (PRIMARY) HYPERTENSION 06/27/2019 ROVENSTINE DOEDNA Ot J44.1 CHRONIC OBSTRUCTIVE PULMONARY DISEASE W 06/27/2019 ROVENSTINE DOEDNA Ot J45.909 UNSPECIFIED ASTHMA, UNCOMPLICATED 06/27/2019 ROVENSTINE DOEDNA Ot R06.02 SHORTNESS OF BREATH 06/27/2019 ROVENSTINE DOEDNA Ot Z77.22 CNTCT W AND EXPSR TO ENVIRON TOBACCO SMO 06/27/2019 ROVENSTINE DOEDNA Ot Z79.84 [employer] (CURRENT) USE OF ORAL HYPOGLYC 06/27/2019 ROVENSTINE DOEDNA Ot Z85.51 PERSONAL HISTORY OF MALIGNANT NEOPLASM O 06/27/2019 ROVENSTINE DOEDNA Ot Z85.528 PERSONAL HISTORY OF OTHER MALIGNANT NEOP 06/27/2019 ROVENSTINE DOEDNA Ot Z87.442 PERSONAL HISTORY OF URINARY CALCULI 06/27/2019 ROVENSTINE DOEDNA Ot Z90.5 ACQUIRED ABSENCE OF KIDNEY 06/27/2019 ROVENSTINE DOEDNA Ot Z90.710 ACQUIRED ABSENCE OF BOTH CERVIX AND UTER 06/27/2019 ROVENSTINE DOEDAN Ot Z90.89 ACQUIRED ABSENCE OF OTHER ORGANS 06/27/2019 ROVENSTINE DOEDNA Ot Z98.51 TUBAL LIGATION STATUS 06/27/2019 ROVENSTINE EDNA BLANCA Ot Z99.89 DEPENDENCE ON OTHER ENABLING MACHINES [...] PERSISTENT ASTHMA WITH STATUS ASTHMATICUS 07/01/2019 ROVENSTINE EDNA BLANCA Ot B19.20 UNSPECIFIED VIRAL HEPATITIS C WITHOUT HE 07/01/2019 ROVENSTINE EDNA BLANCA Ot E11.9 TYPE 2 DIABETES MELLITUS WITHOUT COMPLIC 07/01/2019 ROVENSTINE DOEDNA Ot E78.00 PURE HYPERCHOLESTEROLEMIA, UNSPECIFIED 07/01/2019 ROVENSTINE DOEDNA Ot F31.9 BIPOLAR DISORDER, UNSPECIFIED 07/01/2019 ROVENSTINE EDNA BLANCA Ot F41.9 ANXIETY DISORDER, UNSPECIFIED 07/01/2019 ROVENSTINE DOEDNA Ot G47.30 SLEEP APNEA, UNSPECIFIED 07/01/2019 ROVENSTINE EDNA BLANCA Ot I10 ESSENTIAL (PRIMARY) HYPERTENSION 07/01/2019 ROVENSTINE DOEDNA Ot J44.1 CHRONIC OBSTRUCTIVE PULMONARY DISEASE W 07/01/2019 ROVENSTINE DOEDNA Ot J45.909 UNSPECIFIED ASTHMA, UNCOMPLICATED 07/01/2019 ROVENSTINE EDNA BLANCA Ot R06.02 SHORTNESS OF BREATH 07/01/2019 ROVENSTINE EDNA BLANCA Ot Z77.22 CNTCT W AND EXPSR TO ENVIRON TOBACCO SMO 07/01/2019 ROVENSTINE EDNA BLANCA Ot Z79.84 [employer] (CURRENT) USE OF ORAL HYPOGLYC 07/01/2019 JAKEVENSTINE EDNA BLANCA Ot Z85.51 PERSONAL HISTORY OF MALIGNANT NEOPLASM O 07/01/2019 ROVENSTINE DO EDNA Jacques Ot Z85.528 PERSONAL HISTORY OF OTHER MALIGNANT NEOP 07/01/2019 ROVENSTINE DO EDNA Jacques Ot Z87.442 PERSONAL HISTORY OF URINARY CALCULI 07/01/2019 ROVENSTINE DO EDNA Jacques Ot Z90.5 ACQUIRED ABSENCE OF KIDNEY 07/01/2019 ROVENSTINE DO EDNA Jacques Ot Z90.710 ACQUIRED ABSENCE OF BOTH CERVIX AND UTER 07/01/2019 ROVENSTINE DO, EDNA Jacques Ot Z90.89 ACQUIRED ABSENCE OF OTHER ORGANS 07/01/2019 ROVENSTINE DO EDNA Jacques Ot Z98.51 TUBAL LIGATION STATUS 07/01/2019 ROVENSTINE DO EDNA Jacques Ot Z99.89 DEPENDENCE ON OTHER ENABLING MACHINES [...] ASTHMA, UNSPECIFIED TYPE, WITH STATUS ASTHMATICUS 07/04/2019 Lianna Davis W 794.31 NONSPECIFIC ABNORMAL ELECTROCARDIOGRAM [ECG] [EKG] [...] SEVERE PERSISTENT ASTHMA WITH STATUS ASTHMATICUS 07/04/2019 DavisMacrinaraj Serrato J45.902 UNSPECIFIED ASTHMA WITH STATUS ASTHMATICUS 07/04/2019 Davis Lianna Serrato R09.02 HYPOXEMIA 07/04/2019 Davis Lianna Serrato R94.31 ABNORMAL ELECTROCARDIOGRAM [ECG] [EKG] 07/04/2019 Macrina Davisraj Serrato V45.85 INSULIN PUMP STATUS 07/04/2019 Macrina Davisraj Serrato Z96.41 PRESENCE OF INSULIN PUMP (EXTERNAL) (INTERNAL) [...] Ot R73.9 HYPERGLYCEMIA, UNSPECIFIED 07/06/2019 BASS DO, DEBIBE L Ot Z77.2 2 CNTCT W AND EXPSR TO ENVIRON TOBACCO SMO 07/06/2019 BASS DO, DEBBIE L Ot Z79.4 [facility] (CURRENT) USE OF INSULIN 07/06/2019 BASS DO, [...] 07/08/2019 BASS DO, DEBBIE L Ot Z79.4 [facility] (CURRENT) USE OF INSULIN 07/08/2019 BASS DO, [...] L Ot Z98.5 1 TUBAL LIGATION STATUS 10/19/2019 JOSE HOOVER MD Ot E11.9 TYPE 2 DIABETES MELLITUS WITHOUT COMPLIC 10/19/2019 JOSE HOOVER MD Ot E78.00 PURE HYPERCHOLESTEROLEMIA, UNSPECIFIED 10/19/2019 JOSE HOOVER MD Ot F17.210 NICOTINE DEPENDENCE, CIGARETTES, UNCOMPL 10/19/2019 JOSE HOOVER MD Ot F31.9 BIPOLAR DISORDER, UNSPECIFIED 10/19/2019 JOSE HOOVER MD, Ot F41.9 ANXIETY DISORDER, UNSPECIFIED 10/19/2019 JOSE HOOVER MD, Ot F43.20 ADJUSTMENT DISORDER, UNSPECIFIED 10/19/2019 JOSE HOOVER MD, Ot I1 0 ESSENTIAL (PRIMARY) HYPERTENSION 10/19/2019 JOSE HOOVER MD, Ot Z79.84 [employer] (CURRENT) USE OF ORAL HYPOGLYC 10/19/2019 JOSE HOOVER MD, Ot Z85.51 PERSONAL HISTORY OF MALIGNANT NEOPLASM O 10/19/2019 JOSE HOOVER MD, Ot Z85.528 PERSONAL HISTORY OF OTHER MALIGNANT NEOP 10/22/2019 JOSE HOOVER MD, Ot E11.9 TYPE 2 DIABETES MELLITUS WITHOUT COMPLIC 10/22/2019 JOSE HOOVER MD, Ot E78.00 PURE HYPERCHOLESTEROLEMIA, UNSPECIFIED 10/22/2019 JOSE HOOVER MD, Ot F17.210 NICOTINE DEPENDENCE, CIGARETTES, UNCOMPL 10/22/2019 JOSE HOOVER MD, Ot F31.9 BIPOLAR DISORDER, UNSPECIFIED 10/22/2019 JOSE HOOVER MD, Ot F41.9 ANXIETY DISORDER, UNSPECIFIED 10/22/2019 JOSE HOOVER MD, Ot F43.20 ADJUSTMENT DISORDER, UNSPECIFIED 10/22/2019 JOSE HOOVER MD, Ot I1 0 ESSENTIAL (PRIMARY) HYPERTENSION 10/22/2019 JOSE HOOVER MD, Ot Z79.84 [employer] (CURRENT) USE OF ORAL HYPOGLYC 10/22/2019 JOSE HOOVER MD, Ot Z85.51 PERSONAL HISTORY OF MALIGNANT NEOPLASM O 10/22/2019 JOSE HOOVER MD, Ot Z85.528 PERSONAL HISTORY OF OTHER MALIGNANT NEOP 10/28/2019 JERI BATEMAN, MANASA Funes Ot R10.84 GENERALIZED ABDOMINAL PAIN 10/28/2019 MIKAYLA DE LOS SANTOS DO Ot Z01.8 18 ENCOUNTER FOR OTHER PREPROCEDURAL EXAMIN Procedures Code [place] [address] GLUCOSE 05/08/2013 21628 HEMO GLOBIN A1C 05/08/2013 G0008 ADMI N FEE (MEDICARE) INFLUENZA 05/14/2013 53060 CBC - CBC WITH DIFF - LC 05/15/2013 70907 COMP - COMPREHENSIVE PANEL - LC 05/15/2013 90264 LIPI D - LIPID PANEL - LC 05/15/2013 52916 TSH - TSH - LC 05/15/2013 51926 MALB - MICROALBUMIN - LC 05/15/2013 67780 GLUCOSE 08/11/2013 11335 HEMO GLOBIN A1C 08/11/2013 73916 CBC WITH DIFF 08/12/2013 75077 GLUCOSE 10/07/2013 4000F TOBA RIVET STICKER USE TXMNT COUNSELING 10/13/2013 44587 PULS E OXIMETRY 12/12/2013 A4614 PEAK FLOW 12/12/2013 36823 GLUCOSE 12/12/2013 58491 HEMO GLOBIN A1C 12/12/2013 Pulmonary Pulmonary Function Test 01/13/2014 A4614 PEAK FLOW 02/10/2014 20045 PULS E OXIMETRY 02/10/2014 35811 GLUCOSE 02/10/2014 Endocrino Endocrinology 02/13/2014 Pulmonary Pulmonology, Pulmonology 03/13/2014 57289 PULS E OXIMETRY 04/14/2014 A4614 PEAK FLOW [...] 7-25 CREATININE 0.90 mg/dL 0.50-1.05 eGFR NON-AFR. ANDORRAN 74 mL/min/1.73m2 > OR = 60 eGFR [...] Blood dohle body detection by light microscopy [facility] Blood microcytes detection by light microscopy [facility] NR Comprehensive metabolic panel - 11/06/18 18:25 Serum [...] culture - 11/06/18 18:55 Bacterial blood culture [facility] Influenza virus A and B antigen detectio n - 11/06/18 18:59 FLU RESULT NEGATIVE FOR INFLUENZA A AND B ANTIGENS BY IA [facility] Bacterial blood culture - 11/06/18 19:08 Bacterial blood culture [facility] Capillary blood glucose measurement by [...] culture - 01/04/19 19:30 Bacterial urine culture [id number] NRG COLONY COUNT 30,000 CFU/ML NRG Complete [...] culture - 01/04/19 20:35 Bacterial urine culture [id number] NRG COLONY COUNT . NRG FTX;REPORTABLE <10,000 [...] 7-25 CREATININE 1.23 mg/dL 0.50-1.05 eGFR NON-AFR. ANDORRAN 50 mL/min/1.73m2 > OR = 60 eGFR [...] via l NRG CONTACT: NRG COMMENT NRG Complete urinalysis with reflex to cultu re - 10/19/19 12:18 Urine color determination YELLOW NRG Urine clarity [...] leukocyte count by microscopy (number/high power field) RARE NRG Bacteria detection in urine sediment by light microsco py NEGATIVE NRG Squamous epithelial cells detection in u rine sediment by light microscopy 0-2 NRG Crystals detection in urine sediment by light microsco py NONE NRG Casts detection in urine sediment by light microscopy NONE NRG Mucus detection in urine sediment by light microscopy NONE NRG Complete urinalysis with reflex to culture NO NRG Urine drug screening test - 10/19/19 12: 18 Urine phencyclidine detection by screening method NEGATIVE NEGATIVE Urine benzodiazepines detection by screening method NEGATIVE NEGATIVE Urine cocaine detection NEGATIVE NEGATI VE Urine amphetamines detection by screening method P OSITIVE NEGATIVE Urine methamphetamine detection by screening method NEGATIVE NEGATIVE Urine cannabinoids detection by screening method P OSITIVE NEGATIVE Urine opiates detection by screening method NEGATI VE NEGATIVE Urine barbiturates detection NEGATIVE N EGATIVE Screening urine tricyclic antidepressants detection NEGATIVE NEGATIVE Urine methadone detection by screening method NEGA TIVE NEGATIVE Urine oxycodone detection NEGATIVE NEGA TIVE Urine propoxyphene detection NEGATIVE N EGATIVE Automated blood complete blood count (he mogram) panel - 11/20/19 15:42 Blood leukocytes automated count (number/volume) 10.6 10*3/uL 4.3-11.0 Blood erythrocytes automated count (number/volume) 4.08 10*6/uL 4.35-5.85 Venous blood hemoglobin measurement (mass/volume) 11.4 g/dL 11.5-16.0 Blood hematocrit (volume fraction) 36 % 35-52 Automated erythrocyte mean corpuscular volume 88 [ foz_us] 80-99 Automated erythrocyte mean corpuscular h emoglobin (mass per erythrocyte) 28 pg 25-34 Automated erythrocyte mean corpuscular h emoglobin concentration measurement (mass/volume) 32 g/dL 32-36 Automated erythrocyte distribution width ratio 16. 4 % 10.0- 14.5 Automated blood platelet count (count/volume) 260 10*3/uL 130-400 Automated blood platelet mean volume measurement 10.0 [foz_us] 7.4-10.4 Comprehensive metabolic panel - 11/20/19 15:42 Serum or plasma sodium measurement (moles/volume) 131 mmol/L 135-145 Serum or plasma potassium measurement (moles/volume) 4.3 mmol/L 3.6-5.0 Serum or plasma chloride measurement (moles/volume) 93 mmol/L 98-107 Carbon dioxide 21 mmol/L 21-32 Serum or plasma anion gap determination (moles/volume) 17 mmol/L 5-14 Serum or plasma urea nitrogen measurement (mass/volume ) 12 mg/dL 7-18 Serum or plasma creatinine measurement (mass/volume) 1.09 mg/dL 0.60-1.30 Serum or plasma urea nitrogen/creatinine mass ratio 11 NRG Serum or plasma creatinine measurement w ith calculation of estimated glomerular filtration rate 53 NRG Serum or plasma glucose measurement (mass/volume) 395 mg/dL 70-105 Serum or plasma calcium measurement (mass/volume) 9.8 mg/dL 8.5-10.1 Serum or plasma total bilirubin measurement (mass/volu me) 0.2 mg/dL 0.1-1.0 Serum or plasma alkaline phosphatase alessandra surement (enzymatic activity/volume) 135 U/L 40-136 Serum or plasma aspartate aminotransfera se measurement (enzymatic activity/volume) 14 U/L 5-34 Serum or plasma alanine aminotransferase measurement (enzymatic activity/volume) 21 U/L 0-55 Serum or plasma protein measurement (mass/volume) 7.4 g/dL 6.4-8.2 Serum or plasma albumin measurement (mass/volume) 4.1 g/dL 3.2-4.5 CALCIUM CORRECTED 9.7 mg/dL 8.5-10.1 Magnesium - 11/20/19 15:42 Magnesium 2.0 mg/dL 1.6-2.4 TROPONIN I FS - 11/20/19 15:42 TROPONIN I FS < 0.30 <0.30 PROBNP FS - 11/20/19 15:42 PROBNP FS 113.4 pg/mL <75.0 Encounters ACCT No. Visit Date/Time Discharge Status Pt. Type Provider Facility Loc./Unit Complaint [id number] 10/30/2018 17:22:00 Document Registration [id number] 10/30/2018 17:22:00 Document Registration [email or web address] 04/26/2019 03:58:14 ACT Document Registration [id number] 11/19/2019 14:16:01 ACT Unknown Halle Sahni MD [id number] 10/19/2019 11:52:00 12:40:00 DIS Emergency KIKO BATEMAN, JOSE Serrato [facility] ER FS PSYCH EVAL [id number] 07/06/2019 17:56:00 20:32:00 DIS Emergency BASS DO, DEBBIE L [facility] ER FS HIGH BLOOD SUGAR [id number] 06/27/2019 21:51:00 22:23:00 DIS Emergency ROVENSTINE DO, EDNA L [facility] ER FS SOB,N,V [id number] 06/21/2019 15:26:00 18:47:00 DIS Emergency MARYELLEN BATEMAN, MARK Witt [facility] ER FS BLOOD SUGAR 415; SOB [id number] 06/17/2019 23:44:00 00:22:00 DIS Emergency MAKSIM RICCI MD [facility] ER FS SORE THROAT [id number] 06/12/2019 20:58:00 00:00:00 DIS Emergency JAZIEL WONG DO [facility] ER FS PSYCH EVAL [id number] 06/02/2019 08:49:00 12:33:00 DIS Outpatient MIKAYLA DE LOS SANTOS DO [facility] ENDO HX POLYPS [id number] 05/06/2019 13:20:00 13:25:00 DIS Outpatient MIKAYLA DE LOS SANTOS DO [facility] PREOP COLONOSCOPY [id number] 04/14/2019 13:32:00 17:50:00 DIS Emergency LUCÍA FUENTES MD [facility] ER FS SOB; CHEST PAIN [id number] 03/24/2019 10:00:00 12:45:00 DIS Outpatient MIKAYLA DE LOS SANTOS DO [facility] ENDO SCREENING [id number] 03/22/2019 20:27:00 21:50:00 DIS Emergency DEBBIE BASS DO [facility] ER FS SOA [id number] 03/18/2019 05:38:00 23:59:59 CLS Outpatient MIKAYLA DE LOS SANTOS DO [facility] PREOP COLONOSCOPY [id number] 03/07/2019 21:51:00 22:35:00 DIS Emergency RABIA WILKS MD [facility] ER FS PANIC ATTACK [id number] 01/11/2019 15:06:00 17:55:00 DIS Emergency ANTONIO BASS DOVOR L [facility] ER FS PT STATES SHE NEEDS A M ENTAL HEALTH SCREENING [id number] 01/10/2019 19:58:00 21:53:00 DIS Emergency DIANE DELCID MD [facility] ER FS SEVERE RT SIDE ABD PAIN ;SOB [id number] 01/08/2019 17:11:00 20:40:00 DIS Emergency POLA WEBB DO [facility] ER FS CHEST PAIN, SOB [id number] 01/06/2019 21:51:00 01:32:00 DIS Emergency POLA WEBB DO [facility] ER FS MENTAL HEALTH EVAL [id number] 01/05/2019 19:25:00 20:17:00 DIS Emergency TARIK GEORGE DO [facility] ER FS RIGHT SIDE PAIN [id number] 01/04/2019 19:17:00 21:13:00 DIS Emergency JAZIEL WONG DO [facility] ER FS RIGHT SIDE PAIN [id number] 01/02/2019 04:59:00 05:55:00 DIS Emergency JAZIEL WONG DO [facility] ER FS RIGHT SIDE PAIN [id number] 12/21/2018 17:59:00 19:50:00 DIS Emergency DIANE DELCID MD [facility] ER FS SOB,VAGINAL PAIN [id number] 12/14/2018 14:21:00 16:45:00 DIS Emergency LUCÍA FUENTES MD [facility] ER FS ABD PAIN,VAGINAL PAIN F ROM CATHETER [id number] 12/12/2018 13:47:00 23:59:59 CLS Outpatient JERI BATEMAN, MANASA Funes [facility] RAD FS R10.84 GEN ABD PAIN [id number] 11/29/2018 08:34:00 16:55:00 DIS Emergency DIANE DELCID MD [facility] ER FS URINARY RETENTION [id number] 11/14/2018 21:43:00 23:23:00 DIS Emergency DANIEL HERNANDEZ MD [facility] ER FS BLOOD SUGAR ISSUES [id number] 11/06/2018 17:40:00 01:30:00 DIS Emergency JAME CULVER DO [facility] ER FS SOB,CHEST PAIN [id number] 10/30/2018 20:30:00 00:33:00 DIS Emergency DIANE DELCID MD [facility] ER FS SOB, HIGH BLOOD SUGAR, ABD SORE [id number] 10/16/2018 22:53:00 00:25:00 DIS Emergency BHAVIN BATEMAN, DIANE Franco [facility] ER FS CHEST PAINS [id number] 10/13/2018 17:02:00 019 20:45:00 DIS Emergency DANIEL HERNANDEZ MD [facility] ER FS CHEST PAIN,SOB [id number] 09/18/2018 20:56:00 019 07:30:00 DIS Emergency KAPIL BLANCA NOEL Osorio [facility] ER FS HIGH BLOOD SUGAR, SOB [id number] 09/12/2018 14:20:00 15:56:00 DIS Emergency MARY BATEMAN, DANIEL de dios [facility] ER FS FALL; RT HIP/MI WRIST INJ [id number] 11/20/2019 16:11:00 Document Registration [id number] 12/24/2018 10:40:00 9 23:59:59 DIS Outpatient LINDA SAHNI [facility] RAD [id number] 08/26/2018 07:22:56 9 23:59:59 DIS Outpatient DANAY SORIA V [facility] LAB [id number] 05/30/2018 08:41:17 8 23:59:59 DIS Outpatient LINDA SAHNI [facility] RAD [id number] 04/25/2018 12:24:37 8 23:59:59 CLS Preadmit LINDA SAHNI [facility] Surgery ops [id number] 04/02/2019 11:54:39 Document Registration [id number] 11/13/2018 14:34:59 Document Registration [id number] 08/06/2018 13:35:03 Document Registration [id number] 07/05/2018 09:35:35 ACT V AMADOU [facility] [place] MS [id number] 06/18/2018 06:13:13 Inpatient LINDA ASHNI [facility] MS ops [id number] 06/30/2019 16:00:00 07/04/2019 10:30 :00 DIS Inpatient [facility] [id number] 06/30/2019 17:27:54 Document Registration [id number] 11/06/2019 09:15:00 11/06/2019 23:59: 59 CLS Outpatient [facility] [id number] 08/04/2019 15:15:00 Document Registration [id number] 05/23/2019 07:00:00 Document Registration [id number] 01/30/2019 09:40:00 Document Registration [id number] 12/30/2018 16:30:00 Document Registration [id number] 12/30/2018 14:39:00 Document Registration [id number] 12/18/2018 12:00:00 Document Registration [id number] 10/07/2018 13:15:00 Document Registration [id number] 09/25/2018 09:45:00 Document Registration [id number] 04/14/2014 08:59:00 04/14/2014 11:05: 00 DIS Outpatient BRANDEE HAETHER WRIGHT [id number] 02/10/2014 09:57:00 02/10/2014 23:59: 59 CLS Outpatient BRANDEE CONCRETE SCULPTORALEXEN [id number] 02/10/2014 09:57:00 02/10/2014 23:59: 59 CLS Outpatient BRANDEE CONCRETE SCULPTORALEXEN [id number] 12/12/2013 10:38:00 12/12/2013 23:59: 59 CLS Outpatient BRANDEE CONCRETE SCULPTORALEXEN [id number] 10/07/2013 14:37:00 10/13/2013 20:05: 00 DIS Outpatient BRANDEE HEATHER WRIGHT [id number] 10/07/2013 14:37:00 10/07/2013 23:59: 59 CLS Outpatient BRANDEE HEATHER WRIGHT [id number] 08/11/2013 10:11:00 08/11/2013 13:49: 00 DIS Outpatient BRANDEE HEATHER WRIGHT [id number] 05/08/2013 09:56:00 05/08/2013 23:59:5 9 CLS Outpatient MARIANNA FAUST APRN [id number] 01/08/2013 08:25:00 01/08/2013 23:59:5 9 CLS Outpatient MARIANNA FAUST APRN [id number] 10/15/2014 15:34:45 10/15/2014 23: 59:00 DIS Out[place] [facility] [id number] 08/12/2014 12:31:00 08/12/2014 14: 34:00 DIS Emergency [facility] [id number] 06/21/2014 16:47:00 06/21/2014 17: 52:00 DIS Emergency [facility] [id number] 09/02/2014 00:00:00 Document Registration
== END 2019-11-20 17:05 | disposition home or self-care (01) ==
LOC: EDUNIT# 15:19 → ER FS 15:21
DX: J43.9 Emphysema, unspecified (principal); J45.909 Unspecified asthma, uncomplicated; I10 Essential (primary) hypertension; E78.00 Pure hypercholesterolemia, unspecified; E11.9 Type 2 diabetes mellitus without complications; F41.0 Panic disorder [episodic paroxysmal anxiety]; F31.9 Bipolar disorder, unspecified; G47.33 Obstructive sleep apnea (adult) (pediatric); Z77.22 Contact with and (suspected) exposure to environmental tobacco smoke (acute) (chronic); Z79.84 Long term (current) use of oral hypoglycemic drugs; Z85.528 Personal history of other malignant neoplasm of kidney; Z85.51 Personal history of malignant neoplasm of bladder; Z98.51 Tubal ligation status; Z90.710 Acquired absence of both cervix and uterus
CPT/HCPCS: 36415; 71046; 80053; 83735; 83880; 84484; 85027; 93005

== ENCOUNTER → 2019-12-01 | Outpatient (CLI) | payer MEDICARE, MEDICAID ==
[~2019-12-01] MED LIST changes: +BENZ-13 PO
--- NOTE | 2019-12-01 17:02 | Diagnostic Imaging Report ---
INDICATION: Fall and right knee pain. TIME OF EXAM: 03:07 p.m. FINDINGS: Three views of the right knee were obtained. Alignment is normal. Joint spaces are well maintained. Articular surfaces are smooth. No fracture or dislocation is identified. There is some fullness in the suprapatellar location suggestive of a small joint effusion. IMPRESSION: Joint effusion. No acute bony abnormality is detected. Dictated by: Dictated on workstation # [id number]
== END ==
LOC: RAD FS 15:01
PROVIDERS: ATTEND Nurse Practitioner Family
DX: M25.461 Effusion, right knee (principal); W19.XXXA Unspecified fall, initial encounter
CPT/HCPCS: 73562

== ENCOUNTER 2019-12-14 09:39 | Emergency (ER) | payer MEDICARE, MEDICAID ==
[~2019-12-14] VITALS: Ht 170 cm; Wt 103.9 kg
[2019-12-14 09:46] VITALS: BP 121/67
--- OUTSIDE RECORDS SUMMARY | 2019-12-14 09:46 | XMS REPORT | Clinical Summary ---
Author Author Admin, Jessica Cervantes Organization [facility] Address Unknown Phone Unavailable Allergies, Adverse Reactions, Alerts Allergy Name Reaction Description Start Date Severity Status Pr ovider No Known Allergies Nay Elder Conditions or Problems Problem Name Problem Code Onset Date Status Entry Date Provider Comment Standard Description Annotate Other microscopic hematuria 599.70 Resolved Hardeep Barker MD Hematuria, unspecified Hydronephrosis, right 591 Resolved Maximus Barker MD Hydronephrosis Hematuria 599.70 Resolved Hardeep Barker MD Hematuria, unspecified Hydronephrosis with ureteral stricture, not elsewhere classified 591 Resolved Hardeep Barker MD Hydronephrosis Ureteral cancer, 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 Halle Sahni MD Malignant neoplasm of ureter BMI 36-36.9 Refinement Halle Sahni MD Body Mass Index 36.0-36.9, adult BMI 38-38.9 Refinement Hardeep Barker MD Body Mass Index 36.0-36.9, adult BMI 35-35.9 Refinement Hardeep Barker MD Body Mass Index 36.0-36.9, adult BMI 36-36.9 Resolved Halle Sahni MD Body Mass Index 36.0- 36.9, adult Hernia, Ventral 553.20 Resolved Hardeep osorio MD Unspecified ventral hernia without mention of obstruction or gangrene Morbid obesity due to excess calories 278.00 Resolved Halle Sahni MD Obesity, unspecified Other specified complications of surgica l and medical care, not elsewhere classified, initial encounter 998.13 Resolved Hardeep Barker MD Seroma complicating a procedure Wound infection 958.3 Active Halle Roberson Posttraumatic wound infection not elsewhere classified Bladder cancer 188.9 Active Halle Sahni MD Malignant neoplasm of bladder, part unspecified Nontraumatic bladder rupture 596.6 Active Halle Sahni MD Rupture of bladder, nontraumatic BMI 36-36.9 Refinement Halle Sahni MD Body Mass Index 36.0-36.9, adult BMI 37-37.9 Active Halle Sahni MD Body Mass Index 36.0- 36.9, adult Obesity Class II (BMI 35-39.9) Active Halle Sahni MD Obesity, unspecified Other microscopic hematuria ICD-599.70 Inactive Hardeep Barker MD Hydronephrosis, right ICD-591 Inactive Rosemary Barker MD Hematuria ICD-599.70 Inactive Hardeep osorio MD Hydronephrosis with ureteral stricture, not elsewhere classi fied ICD-591 Inactive Hardeep Barker MD BMI 36-36.9 Inactive Nay Escamilla Hernia, Ventral 553.20 Inactive Hardeep Castillo MD Morbid obesity due to excess calories ICD-278.00 I nactive Nay Escamilla Other specified complications of surgica l and medical care, not elsewhere classified, initial encounter ICD-998.13 Inactive Hardeep Barker MD Medication List Medication Instructions Start Date Stop Date Generic Name ND Status Provider Patient Instruction MYRBETRIQ 25 MG ORAL TABLET EXTENDED RELEASE 24 HOUR 1 tab b y mouth daily MIRABEGRON 12182559952 Active Nay Escamilla Acti ve ULTRAM 50 MG ORAL TABLET 1 tablet twice daily T RAMADOL HCL 35421047850 Active Halle Sahni MD Active BACTRIM DS 800-160 MG ORAL TABLET 1 tab BID SULFAMETHOXAZOLE-TRIMETHOPRIM 75398199431 No Longer Active Hardeep Barker MD Active LEVEMIR FLEXTOUCH 100 UNIT/ML SUBCUTANEOUS SOLUTION PE N-INJECTOR 100 units twice daily INSULIN DETEMIR 46181630769 Active Hardeep osorio MD Active NOVOLOG PENFILL 100 UNIT/ML SUBCUTANEOUS SOLUTION CART RIDGE 50 units twice daily INSULIN ASPART 09701114596 Active Hardeep bowles MD Active GEODON 80 MG ORAL CAPSULE 2 cap at Bedtime ZIP RASIDONE HCL 97089714140 Active Hardeep Barker MD Active MECLIZINE HCL 12.5 MG ORAL TABLET ME CLIZINE HCL 65786192145 No Longer Active Hardeep Barker MD Active LEVAQUIN 500 MG ORAL TABLET 1 tab twice daily LEVOFLOXACIN 00578795400 No Longer Active J Vinayak Sahni MD Acti ve DIFLUCAN 150 MG ORAL TABLET FLUCONAZOL E 45364646144 No Longer Active Halle Sahni MD Active LIPITOR 10 MG ORAL TABLET 1 tab by mouth daily ATORVASTATIN CALCIUM 62107703406 Active Halle Sahni MD Active BYSTOLIC 5 MG ORAL TABLET 1 tab by mouth daily NEBIVOLOL HCL 27503911721 Active Halle Sahni MD Active TRADJENTA 5 MG ORAL TABLET 1 tab by mouth daily LINAGLIPTIN 96919093850 Active Halle Sahni MD Active LISINOPRIL 5 MG ORAL TABLET 1 po qd LISINOPRIL 797717 37062 Active Halle Sahni MD Active LEXAPRO 10 MG ORAL TABLET 1 tablet by mouth daily ESCITALOPRAM OXALATE 74292251571 Active Halle Sahni MD Active METFORMIN HCL 500 MG ORAL TABLET 1 tablet by mouth three times d aily METFORMIN HCL 48659680115 Active Halle Sahni MD A ctive DIFLUCAN 150 MG ORAL TABLET DIFLUCAN 150 MG ORAL TABLET 761321 FLUCONAZOLE Inactive LEVAQUIN 500 MG ORAL TABLET 1 tab twice daily LEVAQUIN 500 MG ORAL TABLET 147476 LEVOFLOXACIN Inactive MECLIZINE HCL 12.5 MG ORAL TABLET MECLIZINE HCL 12.5 MG ORAL TABLET 861156 MECLIZINE HCL Inactive BACTRIM DS 800-160 MG ORAL TABLET 1 tab BID BACTRIM DS 800-160 MG ORAL TABLET 385025 SULFAMETHOXAZOLE-TRIMETHOPRIM Inactiv e Advance Directives Directive Description Start Date PERMISSION TO SHARE Immunizations Vaccine Administration Date Value Standard Chris cription influenza immunization (Flu Vax) has been administered 04/25 Done according to patient influenza virus vaccine, unspecified for mulation Vital Signs Date Name Value Unit Range Description blood pressure, diastolic, repeated by physician 78 BP [place] blood pressure, diastolic 78 mm[Hg] BP [place] blood pressure, systolic, repeated by physician 126 BP sys blood pressure, systolic 126 mm[Hg] BP sys height E&M 67 [in_us] Bdy height temperature E&M 98.4 [degF] Body temp erature weight E&M 240 [lb_av] Weight Measure d blood pressure, diastolic, repeated by physician 74 BP [place] blood pressure, diastolic 74 mm[Hg] BP [place] blood pressure, systolic, repeated by physician 128 BP sys blood pressure, systolic 128 mm[Hg] BP sys height E&M 67 [in_us] Bdy height pulse rate 76 /min Heart rate temperature E&M 98.0 [degF] Body temp erature weight E&M 240 [lb_av] Weight Measure d blood pressure, diastolic, repeated by physician 74 BP [place] blood pressure, diastolic 74 mm[Hg] BP [place] blood pressure, systolic, repeated by physician 130 BP sys blood pressure, systolic 130 mm[Hg] BP sys height E&M 67 [in_us] Bdy height pulse rate 72 /min Heart rate temperature E&M 98.3 [degF] Body temp erature weight E&M 240 [lb_av] Weight Measure d blood pressure, diastolic, repeated by physician 72 BP [place] blood pressure, diastolic 72 mm[Hg] BP [place] blood pressure, systolic, repeated by physician 110 BP sys blood pressure, systolic 110 mm[Hg] BP sys height E&M 67 [in_us] Bdy height pulse rate 76 /min Heart rate temperature E&M 98.1 [degF] Body temp erature weight E&M 235 [lb_av] Weight Measure d blood pressure, diastolic, repeated by physician 74 BP [place] blood pressure, diastolic 74 mm[Hg] BP [place] blood pressure, systolic, repeated by physician 120 BP sys blood pressure, systolic 120 mm[Hg] BP sys height E&M 67 [in_us] Bdy height pulse rate 78 /min Heart rate temperature E&M 98.3 [degF] Body temp erature weight E&M 235 [lb_av] Weight Measure d Diagnostic Results Date Name Value Unit Range Description Office Visit: f/u flank pain - Chemistry RBC, urine, dipstick negative protein, total urine random negative mg/dL Office Visit: f/u flank pain - Urinalysi s pH, urine, semiquantitative 7 specific gravity, urine 1.010 urinalysis, routine Clean Catch ketones, urine, by test strip negative bilirubin, urine negative glucose, urine, semiquantitative negative urine color yellow appearance, urine clear leukocyte esterase, urine, by dipstick negative nitrite, urine, semiquantitative negative urobilinogen, urine, semiquantitative (dipstick) 0.2 protein, urine, semiquantitative (dipstick) negative Encounters Code Encounter Date Provider Facility CPT-88691 Level 3 Est. Patient 16:51:53 CDT Halle aviles MD [facility]-44028 Level 3 Est. Patient 13:58:04 DIRECTOR OF BUSINESS DEVELOPMENT Halle aviles MD [facility]-02479 Level 3 Est. Patient 21:18:54 CDT Halle aviles MD [facility]-73959 Level 3 Est. Patient 12:46:33 CDT Halle aviles MD [facility]-20562 Level 3 Est. Patient 12:27:57 CDT Halle aviles MD [facility]-79554 Level 3 Est. Patient 15:50:26 CDT Halle aviles MD [facility]-23780 Level 3 Est. Patient 11:10:51 DIRECTOR OF BUSINESS DEVELOPMENT Hardeep Barker MD [facility] CPT-53220 Level 4 New Patient 16:02:27 DIRECTOR OF BUSINESS DEVELOPMENT Hardeep Barker MD [facility] CPT-45989 Level 4 Est. Patient 13:31:38 DIRECTOR OF BUSINESS DEVELOPMENT Halle aviles MD [facility] CPT-81620 Level 3 Est. Patient 14:10:08 DIRECTOR OF BUSINESS DEVELOPMENT Halle aviles MD [facility] CPT-90456 Level 3 Est. Patient 10:01:09 CDT Halle aviles MD [facility] CPT-60338 Level 4 New Patient 16:33:13 CDT Halle vail MD [facility] Procedures Code Procedure Name Date Entry Date Standard Desc ription CPT-13492 Cystoscopy 16:51:53 CDT CPT-[id number] (4274F 2P) Patient Reason Influenza immu nization not administered 14:25:43 DIRECTOR OF BUSINESS DEVELOPMENT CPT-31071 Cystoscopy 13:58:04 DIRECTOR OF BUSINESS DEVELOPMENT CPT-30349 Cystoscopy 21:18:54 CDT CPT-19152 Cystoscopy 15:50:27 CDT CPT-47579 Postop F/U Visit 15:34:52 DIRECTOR OF BUSINESS DEVELOPMENT CPT-07930 I/D hematoma seroma fld gauri 11:10:51 DIRECTOR OF BUSINESS DEVELOPMENT 2 CPT-52453 Postop F/U Visit 15:20:53 DIRECTOR OF BUSINESS DEVELOPMENT CPT-69640 Postop F/U Visit 13:46:08 DIRECTOR OF BUSINESS DEVELOPMENT
--- OUTSIDE RECORDS SUMMARY | 2019-12-14 09:47 | XMS REPORT | Clinical Summary ---
Author Author Admin, Jessica Cervantes Organization [facility] Address Unknown Phone Unavailable Allergies, Adverse [...] Generic Name NDC Status Provider Patient Instruction ULTRAM 50 MG ORAL TABLET 1 tablet twice daily T RAMADOL HCL 72123473761 Active Halle Sahni MD Active BACTRIM DS 800-160 MG ORAL TABLET 1 tab BID SULFAMETHOXAZOLE-TRIMETHOPRIM 63657953691 No Longer Active Hardeep Barker MD Active LEVEMIR FLEXTOUCH 100 UNIT/ML SUBCUTANEOUS SOLUTION PE N-INJECTOR 100 units twice daily INSULIN DETEMIR 03568603167 Active Hardeep osorio MD Active NOVOLOG PENFILL 100 UNIT/ML SUBCUTANEOUS SOLUTION CART RIDGE 50 units twice daily INSULIN ASPART 89498883319 Active Hardeep bowles MD Active GEODON 80 MG ORAL CAPSULE 2 cap at Bedtime ZIP RASIDONE HCL 56939256816 Active Hardeep Barker MD Active MECLIZINE HCL 12.5 MG ORAL TABLET ME CLIZINE HCL 27400547010 No Longer Active Hardeep Barker MD Active LEVAQUIN 500 MG ORAL TABLET 1 tab twice daily LEVOFLOXACIN 39443646795 No Longer Active Halle Sahni MD Acti ve DIFLUCAN 150 MG ORAL TABLET FLUCONAZOL E 78044411750 No Longer Active Halle Sahni MD Active LIPITOR 10 MG ORAL TABLET 1 tab by mouth daily ATORVASTATIN CALCIUM 60173123882 Active Halle Sahni MD Active BYSTOLIC 5 MG ORAL TABLET 1 tab by mouth daily NEBIVOLOL HCL 68882862906 Active Halle Sahni MD Active TRADJENTA 5 MG ORAL TABLET 1 tab by mouth daily LINAGLIPTIN 34163641987 Active Halle Sahni MD Active LISINOPRIL 5 MG ORAL TABLET 1 po qd LISINOPRIL 805337 17484 Active Halle Sahni MD Active LEXAPRO 10 MG ORAL TABLET 1 tablet by mouth daily ESCITALOPRAM OXALATE 69330537394 Active Halle Sahni MD Active METFORMIN HCL 500 MG ORAL TABLET 1 tablet by mouth three times d aily METFORMIN HCL 80072900534 Active Halle Sahni MD A ctive DIFLUCAN 150 MG ORAL TABLET DIFLUCAN 150 MG ORAL TABLET 932776 FLUCONAZOLE Inactive LEVAQUIN 500 MG ORAL TABLET 1 tab twice daily LEVAQUIN 500 MG ORAL TABLET 499985 LEVOFLOXACIN Inactive MECLIZINE HCL 12.5 MG ORAL TABLET MECLIZINE HCL 12.5 MG ORAL TABLET 218171 MECLIZINE HCL Inactive BACTRIM DS 800-160 MG ORAL TABLET 1 tab BID BACTRIM DS 800-160 MG ORAL TABLET 406177 SULFAMETHOXAZOLE-TRIMETHOPRIM Inactiv e Advance Directives Directive Description [...] negative Encounters Code Encounter Date Provider Facility CPT-27329 Level 3 Est. Patient 16:51:53 CDT Halle aviles MD [facility] CPT-85058 Level 3 Est. Patient 13:58:04 MOLDER VACUUM Halle aviles MD [facility] CPT-51842 Level 3 Est. Patient 21:18:54 CDT Halle aviles MD [facility]-33723 Level 3 Est. Patient 12:46:33 CDT Halle aviles MD [facility]-35866 Level 3 Est. Patient 12:27:57 CDT Halle aviles MD [facility]-22756 Level 3 Est. Patient 15:50:26 CDT Halle aviles MD [facility]-24347 Level 3 Est. Patient 11:10:51 MOLDER VACUUM Hardeep Barker MD [facility] CPT-58166 Level 4 New Patient 16:02:27 MOLDER VACUUM Hardeep Barker MD [facility] CPT-36133 Level 4 Est. Patient 13:31:38 MOLDER VACUUM Halle aviles MD [facility] CPT-00990 Level 3 Est. Patient 14:10:08 MOLDER VACUUM Halle aviles MD [facility] CPT-99455 Level 3 Est. Patient 10:01:09 CDT Halle aviles MD [facility] CPT-82647 Level 4 New Patient 16:33:13 CDT Halle vail MD [facility] Procedures Code Procedure Name Date Entry Date Standard Desc ription CPT-97753 Cystoscopy 16:51:53 CDT [id number]-[id number] (4274F 2P) Patient Reason Influenza immu nization not administered 14:25:43 MOLDER VACUUM CPT-24840 Cystoscopy 13:58:04 MOLDER VACUUM CPT-01639 Cystoscopy 21:18:54 CDT CPT-32487 Cystoscopy 15:50:27 CDT CPT-72341 Postop F/U Visit 15:34:52 MOLDER VACUUM CPT-57896 I/D hematoma seroma fld gauri 11:10:51 MOLDER VACUUM 2 CPT-38379 Postop F/U Visit 15:20:53 MOLDER VACUUM CPT-35720 Postop F/U Visit 13:46:08 MOLDER VACUUM
--- OUTSIDE RECORDS SUMMARY | 2019-12-14 09:47 | XMS REPORT | Clinical Summary ---
Author Author Admin, Jessica Cervantes Organization [facility] Address Unknown Phone Unavailable Allergies, Adverse Reactions, [...] MD Obesity, unspecified Hydronephrosis, right ICD-591 Inactive Rosemary Barker MD Hematuria ICD-599.70 Inactive Hardeep osorio MD Hydronephrosis with ureteral stricture, not elsewhere classi fied ICD-591 Inactive Hardeep Barker MD BMI 36-36.9 Inactive Nay Escamilla Hernia, Ventral 553.20 Inactive Hardeep Castillo MD Other microscopic hematuria ICD-599.70 Inactive Hardeep [...] 1 tablet twice daily T RAMADOL HCL 08280756536 Active Halle Sahni MD Active BACTRIM DS 800-160 MG ORAL TABLET 1 tab BID SULFAMETHOXAZOLE-TRIMETHOPRIM 23310593456 No Longer Active Hardeep Barker MD Active LEVEMIR FLEXTOUCH 100 UNIT/ML SUBCUTANEOUS SOLUTION PE N-INJECTOR 100 units twice daily INSULIN DETEMIR 39457586466 Active Hardeep osorio MD Active NOVOLOG PENFILL 100 UNIT/ML SUBCUTANEOUS SOLUTION CART RIDGE 50 units twice daily INSULIN ASPART 20908203540 Active Hardeep bowles MD Active GEODON 80 MG ORAL CAPSULE 2 cap at Bedtime ZIP RASIDONE HCL 98319759904 Active Hardeep Barker MD Active MECLIZINE HCL 12.5 MG ORAL TABLET ME CLIZINE HCL 62322037967 No Longer Active Hardeep Barker MD Active LEVAQUIN 500 MG ORAL TABLET 1 tab twice daily LEVOFLOXACIN 16620964968 No Longer Active Halle Sahni MD Acti ve DIFLUCAN 150 MG ORAL TABLET FLUCONAZOL E 41240808334 No Longer Active Halle Sahni MD Active LIPITOR 10 MG ORAL TABLET 1 tab by mouth daily ATORVASTATIN CALCIUM 00436175438 Active Halle Sahni MD Active BYSTOLIC 5 MG ORAL TABLET 1 tab by mouth daily NEBIVOLOL HCL 78582670243 Active Halle Sahni MD Active TRADJENTA 5 MG ORAL TABLET 1 tab by mouth daily LINAGLIPTIN 58052350214 Active Halle Sahni MD Active LISINOPRIL 5 MG ORAL TABLET 1 po qd LISINOPRIL 268667 59699 Active Halle Sahni MD Active LEXAPRO 10 MG ORAL TABLET 1 tablet by mouth daily ESCITALOPRAM OXALATE 80013187377 Active Halle Sahni MD Active METFORMIN HCL 500 MG ORAL TABLET 1 tablet by mouth three times d aily METFORMIN HCL 18721338209 Active Halle Sahni MD A ctive DIFLUCAN 150 MG ORAL TABLET DIFLUCAN 150 MG ORAL TABLET 879502 FLUCONAZOLE Inactive LEVAQUIN 500 MG ORAL TABLET 1 tab twice daily LEVAQUIN 500 MG ORAL TABLET 280310 LEVOFLOXACIN Inactive MECLIZINE HCL 12.5 MG ORAL TABLET MECLIZINE HCL 12.5 MG ORAL TABLET 479624 MECLIZINE HCL Inactive BACTRIM DS 800-160 MG ORAL TABLET 1 tab BID BACTRIM DS 800-160 MG ORAL TABLET 959672 SULFAMETHOXAZOLE-TRIMETHOPRIM Inactiv e Advance Directives Directive Description [...] negative Encounters Code Encounter Date Provider Facility CPT-21752 Level 3 Est. Patient 16:51:53 CDT Halle aviles MD [facility] CPT-87814 Level 3 Est. Patient 13:58:04 PHARMACY GRAD INTERN Halle aviles MD [facility] CPT-40037 Level 3 Est. Patient 21:18:54 CDT Halle aviles MD [facility]-65376 Level 3 Est. Patient 12:46:33 CDT Halle aviles MD [facility]-76022 Level 3 Est. Patient 12:27:57 CDT Halle aviles MD [facility]-56663 Level 3 Est. Patient 15:50:26 CDT Halle aviles MD [facility]-84276 Level 3 Est. Patient 11:10:51 PHARMACY GRAD INTERN Hardeep Barker MD [facility] CPT-55853 Level 4 New Patient 16:02:27 PHARMACY GRAD INTERN Hardeep Barker MD [facility] CPT-46993 Level 4 Est. Patient 13:31:[address] PH[address] INTERN Halle aviles MD [facility] CPT-35362 Level 3 Est. Patient 14:10:[address] PH[address]Y [address]AD INTERN Halle aviles MD [facility] CPT-85964 Level 3 Est. Patient 10:01:09 CDT Halle aviles MD [facility] CPT-99345 Level 4 New Patient 16:33:13 CDT Halle vail MD [facility] Procedures Code Procedure Name Date Entry Date Standard Desc ription CPT-45588 Cystoscopy 16:51:53 CDT [id number]-[id number] (4274F 2P) Patient Reason Influenza immu nization not administered 14:25:43 PHARMACY GRAD INTERN CPT-30760 Cystoscopy 13:58:04 PHARMACY GRAD INTERN CPT-51662 Cystoscopy 21:18:54 CDT CPT-32122 Cystoscopy 15:50:27 CDT CPT-31018 Postop F/U Visit 15:34:52 PHARMACY GRAD INTERN CPT-55728 I/D hematoma seroma fld gauri 11:10:51 PHARMACY GRAD INTERN 2 CPT-19181 Postop F/U Visit 15:20:53 PHARMACY GRAD INTERN CPT-24609 Postop F/U Visit 13:46:08 PHARMACY GRAD INTERN
--- OUTSIDE RECORDS SUMMARY | 2019-12-14 09:47 | XMS REPORT | Clinical Summary ---
Author Author Admin, Jessica Cervantes Organization [facility] Address Unknown Phone Unavailable Allergies, [...] 1 tablet twice daily T RAMADOL HCL 20792834385 Active Halle Sahni MD Active BACTRIM DS 800-160 MG ORAL TABLET 1 tab BID SULFAMETHOXAZOLE-TRIMETHOPRIM 48387116086 No Longer Active Hardeep Barker MD Active LEVEMIR FLEXTOUCH 100 UNIT/ML SUBCUTANEOUS SOLUTION PE N-INJECTOR 100 units twice daily INSULIN DETEMIR 88844374223 Active Hardeep osorio MD Active NOVOLOG PENFILL 100 UNIT/ML SUBCUTANEOUS SOLUTION CART RIDGE 50 units twice daily INSULIN ASPART 80540882956 Active Hardeep bowles MD Active GEODON 80 MG ORAL CAPSULE 2 cap at Bedtime ZIP RASIDONE HCL 64678227597 Active Hardeep Barker MD Active MECLIZINE HCL 12.5 MG ORAL TABLET ME CLIZINE HCL 22352690776 No Longer Active Hardeep Barker MD Active LEVAQUIN 500 MG ORAL TABLET 1 tab twice daily LEVOFLOXACIN 38754757304 No Longer Active Halle Sahni MD Acti ve DIFLUCAN 150 MG ORAL TABLET FLUCONAZOL E 29897673504 No Longer Active Halle Sahni MD Active LIPITOR 10 MG ORAL TABLET 1 tab by mouth daily ATORVASTATIN CALCIUM 61147456776 Active Halle Sahni MD Active BYSTOLIC 5 MG ORAL TABLET 1 tab by mouth daily NEBIVOLOL HCL 94256605030 Active Halle Sahni MD Active TRADJENTA 5 MG ORAL TABLET 1 tab by mouth daily LINAGLIPTIN 72468857062 Active Halle Sahni MD Active LISINOPRIL 5 MG ORAL TABLET 1 po qd LISINOPRIL 865389 53813 Active Halle Sahni MD Active LEXAPRO 10 MG ORAL TABLET 1 tablet by mouth daily ESCITALOPRAM OXALATE 69853825092 Active Halle Sahni MD Active METFORMIN HCL 500 MG ORAL TABLET 1 tablet by mouth three times d aily METFORMIN HCL 51699403204 Active Halle Sahni MD A ctive DIFLUCAN 150 MG ORAL TABLET DIFLUCAN 150 MG ORAL TABLET 372550 FLUCONAZOLE Inactive LEVAQUIN 500 MG ORAL TABLET 1 tab twice daily LEVAQUIN 500 MG ORAL TABLET 929458 LEVOFLOXACIN Inactive MECLIZINE HCL 12.5 MG ORAL TABLET MECLIZINE HCL 12.5 MG ORAL TABLET 142944 MECLIZINE HCL Inactive BACTRIM DS 800-160 MG ORAL TABLET 1 tab BID BACTRIM DS 800-160 MG ORAL TABLET 883384 SULFAMETHOXAZOLE-TRIMETHOPRIM Inactiv e Advance Directives Directive Description [...] negative Encounters Code Encounter Date Provider Facility CPT-75984 Level 3 Est. Patient 16:51:53 CDT Halle aviles MD [facility] CPT-20186 Level 3 Est. Patient 13:58:04 MOTOR GRADER OPERATOR Halle aviles MD [facility] CPT-81590 Level 3 Est. Patient 21:18:54 CDT Halle aviles MD [facility]-42729 Level 3 Est. Patient 12:46:33 CDT Halle aviles MD [facility]-73930 Level 3 Est. Patient 12:27:57 CDT Halle aviles MD [facility]-69325 Level 3 Est. Patient 15:50:26 CDT Halle aviles MD [facility]-36642 Level 3 Est. Patient 11:10:51 MOTOR GRADER OPERATOR Hardeep Barker MD [facility] CPT-00634 Level 4 New Patient 16:02:27 MOTOR GRADER OPERATOR Hardeep Barker MD [facility] CPT-81621 Level 4 Est. Patient 13:31:38 MOTOR GRADER OPERATOR Halle aviles MD [facility] CPT-33515 Level 3 Est. Patient 14:10:08 MOTOR GRADER OPERATOR Halle aviles MD [facility] CPT-60842 Level 3 Est. Patient 10:01:09 CDT Halle aviles MD [facility] CPT-62734 Level 4 New Patient 16:33:13 CDT Halle vail MD [facility] Procedures Code Procedure Name Date Entry Date Standard Desc ription CPT-25645 Cystoscopy 16:51:53 CDT [id number]-[id number] (4274F 2P) Patient Reason Influenza immu nization not administered 14:25:43 MOTOR GRADER OPERATOR CPT-76591 Cystoscopy 13:58:04 MOTOR GRADER OPERATOR CPT-57157 Cystoscopy 21:18:54 CDT CPT-20963 Cystoscopy 15:50:27 CDT CPT-19543 Postop F/U Visit 15:34:52 MOTOR GRADER OPERATOR CPT-57790 I/D hematoma seroma fld gauri 11:10:51 MOTOR GRADER OPERATOR 2 CPT-02856 Postop F/U Visit 15:20:53 MOTOR GRADER OPERATOR CPT-33942 Postop F/U Visit 13:46:08 MOTOR GRADER OPERATOR
--- OUTSIDE RECORDS SUMMARY | 2019-12-14 09:53 | XMS REPORT | Continuity of Care Document ---
Demographics Preferred Language Unknown Marital Status Unknown [employer] Affiliation Unknown Race Unknown Ethnic Group Unknown Author Organization Unknown Address Unknown Phone Unavailable Allergies Active Description Code Type Severity Reaction Onset Reported/Identified Relationship to Patient Clinical Status Yes No Known Medication Allergies Drug N/A N/A Yes NO KNOWN DRUG ALLERGIES UNKNOWN UNKNOWN Yes No Known Drug Allergies [id number] Drug Allergy Unknown N/A 05/06/2019 Medications Medication [...] IRVIN APRN V15 .82 TOBACCOISM 07/05/2010 BRANDEE SLEEVE SEPARATOR, HEATHER 278 .01 OBESITY MORBID 07/05/2010 BRANDEE SLEEVE SEPARATOR, HEATHER 380 .10 Infective Otitis Externa, Unspecified 07/05/2010 BRANDEE SLEEVE SEPARATOR, HEATHER V15 .82 TOBACCOISM 07/05/2010 BRANDEE SLEEVE SEPARATOR, HEATHER 278 .01 OBESITY MORBID 07/05/2010 BRANDEE SLEEVE SEPARATOR, HEATHER 380 .10 Infective Otitis Externa, Unspecified 07/05/2010 BRANDEE SLEEVE SEPARATOR, HEATHER V15 .82 TOBACCOISM 07/05/2010 BRANDEE SLEEVE SEPARATOR, HEATHER 278 .01 OBESITY MORBID 07/05/2010 BRANDEE SLEEVE SEPARATOR, HEATHER 380 .10 Infective Otitis Externa, Unspecified 07/05/2010 BRANDEE SLEEVE SEPARATOR, HEATHER V15 .82 TOBACCOISM 07/05/2010 BRANDEE SLEEVE SEPARATOR, HEATHER 278 .01 OBESITY MORBID 07/05/2010 BRANDEE SLEEVE SEPARATOR, HEATHER 380 .10 Infective Otitis Externa, Unspecified 07/05/2010 BRANDEE SLEEVE SEPARATOR, HEATHER V15 .82 TOBACCOISM 07/05/2010 GOVIND SLEEVE SEPARATOR, MARIANNA 278.01 OBESITY MORBID 07/05/2010 GOVIND SLEEVE SEPARATOR, MARIANNA 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, Unspecified 07/05/2010 GOVIND SLEEVE SEPARATOR, MARIANNA V15.82 TOBACCOISM 07/05/2010 GOVIND SLEEVE SEPARATOR, MARIANNA 278.01 OBESITY MORBID 07/05/2010 GOVIND SLEEVE SEPARATOR, MARIANNA 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, Unspecified 07/05/2010 GOVIND SLEEVE SEPARATOR, MARIANNA V15.82 TOBACCOISM 07/07/2010 BRANDEE SLEEVE SEPARATOR, HEATHER 280 .9 Anemia Hypochromic / Microcytic 07/07/2010 BRANDEE SLEEVE SEPARATOR, HEATHER 796 .2 Prehypertension 07/07/2010 BRANDEE SLEEVE SEPARATOR, HEATHER V04 .81 Influenza Vaccine 07/07/2010 BRANDEE SLEEVE SEPARATOR, HEATHER V68 .89 Encounters For Other Specified Administrative Purpose 07/07/2010 BRANDEE SLEEVE SEPARATOR, HEATHER V72 .31 Routine Pelvic Exam 07/07/2010 BRANDEE SLEEVE SEPARATOR, HEATHER 280 .9 Anemia Hypochromic / Microcytic 07/07/2010 BRANDEE SLEEVE SEPARATOR, HEATHER 796 .2 Prehypertension 07/07/2010 [facility] SLEEVE SEPARATOR, HEATHER V04 .81 Influenza Vaccine 07/07/2010 BRANDEE SLEEVE SEPARATOR, HEATHER V68 .89 Encounters For Other Specified Administrative Purpose 07/07/2010 BRANDEE SLEEVE SEPARATOR, HEATHER V72 .31 Routine Pelvic Exam 07/07/2010 BRANDEE SLEEVE SEPARATOR, HEATHER 280 .9 Anemia Hypochromic / Microcytic 07/07/2010 BRANDEE SLEEVE SEPARATOR, HEATHER 796 .2 Prehypertension 07/07/2010 BRANDEE SLEEVE SEPARATOR, HEATHER V04 .81 Influenza Vaccine 07/07/2010 BRANDEE SLEEVE SEPARATOR, HEATHER V68 .89 Encounters For Other Specified Administrative Purpose 07/07/2010 BRANDEE SLEEVE SEPARATOR, HEATHER V72 .31 Routine Pelvic Exam 07/07/2010 BRANDEE SLEEVE SEPARATOR, HEATHER 280 .9 Anemia Hypochromic / Microcytic 07/07/2010 BRANDEE SLEEVE SEPARATOR, HEATHER 796 .2 Prehypertension 07/07/2010 [facility] SLEEVE SEPARATOR, HEATHER V04 .81 Influenza Vaccine 07/07/2010 BRANDEE SLEEVE SEPARATOR, HEATHER V68 .89 Encounters For Other Specified Administrative Purpose 07/07/2010 BRANDEE SLEEVE SEPARATOR, HEATHER V72 .31 Routine Pelvic Exam 07/07/2010 [facility] SLEEVE SEPARATOR, HEATHER 280 .9 Anemia Hypochromic / Microcytic 07/07/2010 BRANDEE SLEEVE SEPARATOR, HEATHER 796 .2 Prehypertension 07/07/2010 BRANDEE SLEEVE SEPARATOR, HEATHER V04 .81 Influenza Vaccine 07/07/2010 BRANDEE SLEEVE SEPARATOR, HEATHER V68 .89 Encounters For Other Specified Administrative Purpose 07/07/2010 BRANDEE SLEEVE SEPARATOR, HEATHER V72 .31 Routine Pelvic Exam 07/07/2010 BRANDEE SLEEVE SEPARATOR, HEATHER 280 .9 Anemia Hypochromic / Microcytic 07/07/2010 BRANDEE SLEEVE SEPARATOR, HEATHER 796 .2 Prehypertension 07/07/2010 BRANDEE SLEEVE SEPARATOR, HEATHER V04 .81 Influenza Vaccine 07/07/2010 BRANDEE SLEEVE SEPARATOR, HEATHER V68 .89 Encounters For Other Specified Administrative Purpose 07/07/2010 BRANDEE SLEEVE SEPARATOR, HEATHER V72 .31 Routine Pelvic Exam 07/07/2010 BRANDEE SLEEVE SEPARATOR, HEATHER 280 .9 Anemia Hypochromic / Microcytic 07/07/2010 BRANDEE SLEEVE SEPARATOR, HEATHER 796 .2 Prehypertension 07/07/2010 BRANDEE SLEEVE SEPARATOR, HEATHER V04 .81 Influenza Vaccine 07/07/2010 BRANDEE SLEEVE SEPARATOR, HEATHER V68 .89 Encounters For Other Specified Administrative Purpose 07/07/2010 BRANDEE SLEEVE SEPARATOR, HEATHER V72 .31 Routine Pelvic Exam 07/07/2010 GOVIND SLEEVE SEPARATOR MARIANNA 28 0.9 Anemia Hypochromic / Microcytic 07/07/2010 GOVIND SLEEVE SEPARATOR MARIANNA 79 6.2 Prehypertension 07/07/2010 GOVIND SLEEVE SEPARATOR MARIANNA V04.81 Influenza Vaccine 07/07/2010 GOVIND SLEEVE SEPARATOR MARIANNA V68.89 Encounters For Other Specified Administrative Purpose 07/07/2010 GOVIND SLEEVE SEPARATORENE V72.31 Routine Pelvic Exam 07/07/2010 GOVIND SLEEVE SEPARATORSOFYAMARIANNA 28 0.9 Anemia Hypochromic / Microcytic 07/07/2010 GOVIND SLEEVE SEPARATORENE 79 6.2 Prehypertension 07/07/2010 GOVIND SLEEVE SEPARATOR MARIANNA V04.81 Influenza Vaccine 07/07/2010 GOVIND SLEEVE SEPARATOR MARIANNA V68.89 Encounters For Other Specified Administrative Purpose 07/07/2010 GOVIND SLEEVE SEPARATOR MARIANNA V72.31 Routine Pelvic Exam 10/20/2010 [facility] SLEEVE SEPARATOR, HEATHER 112 .1 Candidiasis, Of Vulva And Vagina 10/20/2010 [facility] SLEEVE SEPARATOR, HEATHER 599 .0 Uti 10/20/2010 [facility] SLEEVE SEPARATOR, HEATHER 112 .1 Candidiasis, Of Vulva And Vagina 10/20/2010 [facility] SLEEVE SEPARATOR, HEATHER 599 .0 Uti 10/20/2010 [facility] SLEEVE SEPARATOR, HEATHER 112 .1 Candidiasis, Of Vulva And Vagina 10/20/2010 BRANDEE SLEEVE SEPARATOR, HEATHER 599 .0 Uti 10/20/2010 [facility] SLEEVE SEPARATOR, HEATHER 112 .1 Candidiasis, Of Vulva And Vagina 10/20/2010 [facility] SLEEVE SEPARATOR, HEATHER 599 .0 Uti 10/20/2010 [facility] SLEEVE SEPARATOR, HEATHER 112 .1 Candidiasis, Of Vulva And Vagina 10/20/2010 BRANDEE SLEEVE SEPARATOR, HEATHER 599 .0 Uti 10/20/2010 BRANDEE SLEEVE SEPARATOR, HEATHER 112 .1 Candidiasis, Of Vulva And Vagina 10/20/2010 BRANDEE SLEEVE SEPARATOR, HEATHER 599 .0 Uti 10/20/2010 BRANDEE SLEEVE SEPARATOR, HEATHER 112 .1 Candidiasis, Of Vulva And Vagina 10/20/2010 BRANDEE SLEEVE SEPARATOR, HEATHER 599 .0 Uti 10/20/2010 GOVIND SLEEVE SEPARATOR, MARIANNA 11 2.1 Candidiasis, Of Vulva And Vagina 10/20/2010 GOVIND SLEEVE SEPARATOR, MARIANNA 59 9.0 Uti 10/20/2010 GOVIND SLEEVE SEPARATOR, MARIANNA 11 2.1 Candidiasis, Of Vulva And Vagina 10/20/2010 GOVIND SLEEVE SEPARATOR, MARIANNA 59 9.0 Uti 10/24/2010 BRANDEE SLEEVE SEPARATOR, HEATHER 250 .00 DIABETES MELLITUS TYPE 2 10/24/2010 BRANDEE SLEEVE SEPARATOR, HEATHER 466 .0 Bronchitis, Acute 10/24/2010 [facility] SLEEVE SEPARATOR, HEATHER 496 PULMONARY OBSTRUCTIVE DISORDERS 10/24/2010 BRANDEE SLEEVE SEPARATOR, HEATHER 250 .00 DIABETES MELLITUS TYPE 2 10/24/2010 BRANDEE SLEEVE SEPARATOR, HEATHER 466 .0 Bronchitis, Acute 10/24/2010 BRANDEE SLEEVE SEPARATOR, HEATHER 496 PULMONARY OBSTRUCTIVE DISORDERS 10/24/2010 BRANDEE SLEEVE SEPARATOR, HEATHER 250 .00 DIABETES MELLITUS TYPE 2 10/24/2010 BRANDEE SLEEVE SEPARATOR, HEATHER 466 .0 Bronchitis, Acute 10/24/2010 BRANDEE SLEEVE SEPARATOR, HEATHER 496 PULMONARY OBSTRUCTIVE DISORDERS 10/24/2010 BRANDEE SLEEVE SEPARATOR, HEATHER 250 .00 DIABETES MELLITUS TYPE 2 10/24/2010 BRANDEE SLEEVE SEPARATOR, HEATHER 466 .0 Bronchitis, Acute 10/24/2010 BRANDEE SLEEVE SEPARATOR, HEATHER 496 PULMONARY OBSTRUCTIVE DISORDERS 10/24/2010 BRANDEE SLEEVE SEPARATOR, HEATHER 250 .00 DIABETES MELLITUS TYPE 2 10/24/2010 BRANDEE SLEEVE SEPARATOR, HEATHER 466 .0 Bronchitis, Acute 10/24/2010 BRANDEE SLEEVE SEPARATOR, HEATHER 496 PULMONARY OBSTRUCTIVE DISORDERS 10/24/2010 BRANDEE SLEEVE SEPARATOR, HEATHER 250 .00 DIABETES MELLITUS TYPE 2 10/24/2010 BRANDEE SLEEVE SEPARATOR, HEATHER 466 .0 Bronchitis, Acute 10/24/2010 BRANDEE SLEEVE SEPARATOR, HEATHER 496 PULMONARY OBSTRUCTIVE DISORDERS 10/24/2010 BRANDEE SLEEVE SEPARATOR, HEATHER 250 .00 DIABETES MELLITUS TYPE 2 10/24/2010 BRANDEE SLEEVE SEPARATOR, HEATHER 466 .0 Bronchitis, Acute 10/24/2010 BRANDEE SLEEVE SEPARATOR, HEATHER 496 PULMONARY OBSTRUCTIVE DISORDERS 10/24/2010 GOVIND SLEEVE SEPARATOR, MARIANNA 250.00 DIABETES MELLITUS TYPE 2 10/24/2010 GOVIND SLEEVE SEPARATOR, MARIANNA 46 6.0 Bronchitis, Acute 10/24/2010 GOVIND SLEEVE SEPARATOR, MARIANNA 49 6 PULMONARY OBSTRUCTIVE DISORDERS 10/24/2010 GOVIND SLEEVE SEPARATOR, MARIANNA 250.00 DIABETES MELLITUS TYPE 2 10/24/2010 GOVIND SLEEVE SEPARATOR, MARIANNA 46 6.0 Bronchitis, Acute 10/24/2010 GOVIND SLEEVE SEPARATOR, MARIANNA 49 6 PULMONARY OBSTRUCTIVE DISORDERS 05/12/2011 [facility] SLEEVE SEPARATOR, HEATHER 703 .0 Ingrowing Nail 05/12/2011 [facility] SLEEVE SEPARATOR, HEATHER 726 .91 EXOSTOSIS OF UNSPECIFIED SITE 05/12/2011 [facility] SLEEVE SEPARATOR, HEATHER 703 .0 Ingrowing Nail 05/12/2011 BRANDEE SLEEVE SEPARATOR, HEATHER 726 .91 EXOSTOSIS OF UNSPECIFIED SITE 05/12/2011 [facility] SLEEVE SEPARATOR, HEATHER 703 .0 Ingrowing Nail 05/12/2011 BRANDEE SLEEVE SEPARATOR, HEATHER 726 .91 EXOSTOSIS OF UNSPECIFIED SITE 05/12/2011 [facility] SLEEVE SEPARATOR, HEATHER 703 .0 Ingrowing Nail 05/12/2011 BRANDEE SLEEVE SEPARATOR, HEATHER 726 .91 EXOSTOSIS OF UNSPECIFIED SITE 05/12/2011 BRANDEE SLEEVE SEPARATOR, HEATHER 703 .0 Ingrowing Nail 05/12/2011 BRANDEE SLEEVE SEPARATOR, HEATHER 726 .91 EXOSTOSIS OF UNSPECIFIED SITE 05/12/2011 BRANDEE SLEEVE SEPARATOR, HEATHER 703 .0 Ingrowing Nail 05/12/2011 BRANDEE SLEEVE SEPARATOR, HEATHER 726 .91 EXOSTOSIS OF UNSPECIFIED SITE 05/12/2011 BRANDEE SLEEVE SEPARATOR, HEATHER 703 .0 Ingrowing Nail 05/12/2011 BRANDEE SLEEVE SEPARATOR, HEATHER 726 .91 EXOSTOSIS OF UNSPECIFIED SITE 05/12/2011 GOVIND SLEEVE SEPARATOR, MARIANNA 70 3.0 Ingrowing Nail 05/12/2011 GOVIND SLEEVE SEPARATOR, MARIANNA 726.91 EXOSTOSIS OF UNSPECIFIED SITE 05/12/2011 GOVIND SLEEVE SEPARATOR, MARIANNA 70 3.0 Ingrowing Nail 05/12/2011 GOVIND SLEEVE SEPARATOR, MARIANNA 726.91 EXOSTOSIS OF UNSPECIFIED SITE 06/02/2011 BRANDEE SLEEVE SEPARATOR, HEATHER 078 .12 Plantar Wart 06/02/2011 BRANDEE SLEEVE SEPARATOR, HEATHER 078 .12 Plantar Wart 06/02/2011 BRANDEE SLEEVE SEPARATOR, HEATHER 078 .12 Plantar Wart 06/02/2011 BRANDEE SLEEVE SEPARATOR, HEATHER 078 .12 Plantar Wart 06/02/2011 BRANDEE SLEEVE SEPARATOR, HEATHER 078 .12 Plantar Wart 06/02/2011 BRANDEE SLEEVE SEPARATOR, HEATHER 078 .12 Plantar Wart 06/02/2011 BRANDEE SLEEVE SEPARATOR, HEATHER 078 .12 Plantar Wart 06/02/2011 GOVIND SLEEVE SEPARATOR, MARIANNA 078.12 Plantar Wart 06/02/2011 GOVIND SLEEVE SEPARATOR, MARIANNA 078.12 Plantar Wart 07/05/2011 BRANDEE SLEEVE SEPARATOR, HEATHER 466 .0 ACUTE BRONCHITIS 07/05/2011 BRANDEE SLEEVE SEPARATOR, HEATHER 466 .0 ACUTE BRONCHITIS 07/05/2011 BRANDEE SLEEVE SEPARATOR, HEATHER 466 .0 ACUTE BRONCHITIS 07/05/2011 BRANDEE SLEEVE SEPARATOR, HEATHER 466 .0 ACUTE BRONCHITIS 07/05/2011 BRANDEE SLEEVE SEPARATOR, HEATHER 466 .0 ACUTE BRONCHITIS 07/05/2011 BRANDEE SLEEVE SEPARATOR, HEATHER 466 .0 ACUTE BRONCHITIS 07/05/2011 BRANDEE SLEEVE SEPARATOR, HEATHER 466 .0 ACUTE BRONCHITIS 07/05/2011 GOVIND SLEEVE SEPARATOR, MARIANNA 46 6.0 ACUTE BRONCHITIS 07/05/2011 GOVIND SLEEVE SEPARATOR, MARIANNA 46 6.0 ACUTE BRONCHITIS 11/20/2011 BRANDEE SLEEVE SEPARATOR, HEATHER 682 .9 CELLULITIS 11/20/2011 BRANDEE SLEEVE SEPARATOR, HEATHER 682 .9 CELLULITIS 11/20/2011 BRANDEE SLEEVE SEPARATOR, HEATHER 682 .9 CELLULITIS 11/20/2011 BRANDEE SLEEVE SEPARATOR, HEATHER 682 .9 CELLULITIS 11/20/2011 BRANDEE SLEEVE SEPARATOR, HEATHER 682 .9 CELLULITIS 11/20/2011 BRANDEE SLEEVE SEPARATOR, HEATHER 682 .9 CELLULITIS 11/20/2011 BRANDEE SLEEVE SEPARATOR, HEATHER 682 .9 CELLULITIS 11/20/2011 GOVIND SLEEVE SEPARATOR, MARIANNA 68 2.9 CELLULITIS 11/20/2011 GOVIND SLEEVE SEPARATOR, MARIANNA 68 2.9 CELLULITIS 12/22/2011 BRANDEE SLEEVE SEPARATOR, HEATHER 401 .1 ESSENTIAL HYPERTENSION BENIGN 12/22/2011 BRANDEE SLEEVE SEPARATOR, HEATHER 401 .1 ESSENTIAL HYPERTENSION BENIGN 12/22/2011 BRANDEE SLEEVE SEPARATOR, HEATHER 401 .1 ESSENTIAL HYPERTENSION BENIGN 12/22/2011 BRANDEE SLEEVE SEPARATOR, HEATHER 401 .1 ESSENTIAL HYPERTENSION BENIGN 12/22/2011 [facility] SLEEVE SEPARATOR, HEATHER 401 .1 ESSENTIAL HYPERTENSION BENIGN 12/22/2011 [facility] SLEEVE SEPARATOR, HEATHER 401 .1 ESSENTIAL HYPERTENSION BENIGN 12/22/2011 [facility] SLEEVE SEPARATOR, HEATHER 401 .1 ESSENTIAL HYPERTENSION BENIGN 12/22/2011 GOVIND SLEEVE SEPARATOR, MARIANNA 40 1.1 ESSENTIAL HYPERTENSION BENIGN 12/22/2011 GOVIND SLEEVE SEPARATOR, MARIANNA 40 1.1 ESSENTIAL HYPERTENSION BENIGN 04/09/2012 [facility] KYLE, HEATHER 272 .2 HYPERLIPIDEMIA 04/09/2012 [facility] SLEEVE SEPARATORHEATHER Sunshine V04 .81 Need For Prophylactic Vaccination And Inoculation Against Influenza 04/09/2012 [facility] HEATHER WRIGHT 272 .2 HYPERLIPIDEMIA 04/09/2012 [facility] HEATHER WRIGHT V04 .81 Need For Prophylactic Vaccination And Inoculation Against Influenza 04/09/2012 BRANEDE HEATHER WRIGHT 272 .2 HYPERLIPIDEMIA 04/09/2012 [facility] SLEEVE SEPARATOR, HEATHER V04 .81 Need For Prophylactic Vaccination And Inoculation Against Influenza 04/09/2012 BRANDEE HEATHER WRIGHT 272 .2 HYPERLIPIDEMIA 04/09/2012 [facility] SLEEVE SEPARATORHEATHER Sunshine V04 .81 Need For Prophylactic Vaccination And Inoculation Against Influenza 04/09/2012 BRANDEE HEATHER WRIGHT 272 .2 HYPERLIPIDEMIA 04/09/2012 [facility] HEATHER WRIGHT V04 .81 Need For Prophylactic Vaccination And Inoculation Against Influenza 04/09/2012 BRANDEE HEATHER WRIGHT 272 .2 HYPERLIPIDEMIA 04/09/2012 BRANDEE SLEEVE SEPARATOR, HEATHER V04 .81 Need For Prophylactic Vaccination And Inoculation Against Influenza 04/09/2012 BRANDEE SLEEVE SEPARATOR, HEATHER 272 .2 HYPERLIPIDEMIA 04/09/2012 BRANDEE SLEEVE SEPARATOR, HEATHER V04 .81 Need For Prophylactic Vaccination And Inoculation Against Influenza 04/09/2012 GOVIND SLEEVE SEPARATORMARIANNA Sunshine 27 2.2 HYPERLIPIDEMIA 04/09/2012 GOVIND SLEEVE SEPARATORMARIANNA Sunshine V04.81 Need For Prophylactic Vaccination And Inoculation Agai nst Influenza 04/09/2012 GOVIND SLEEVE SEPARATORMARIANNA Sunshine 27 2.2 HYPERLIPIDEMIA 04/09/2012 GOVIND SLEEVE SEPARATORMARIANNA V04.81 Need For Prophylactic Vaccination And Inoculation Agai nst Influenza 05/14/2012 BRANDEE SLEEVE SEPARATOR, HEATHER 682 .9 Cellulitis/abscess 05/14/2012 BRANDEE SLEEVE SEPARATOR, HEATHER 682 .9 Cellulitis/abscess 05/14/2012 BRANDEE SLEEVE SEPARATOR, HEATHER 682 .9 Cellulitis/abscess 05/14/2012 BRANDEE SLEEVE SEPARATOR, HEATHER 682 .9 Cellulitis/abscess 05/14/2012 BRANDEE SLEEVE SEPARATOR, HEATHER 682 .9 Cellulitis/abscess 05/14/2012 BRANDEE SLEEVE SEPARATOR, HEATHER 682 .9 Cellulitis/abscess 05/14/2012 BRANDEE SLEEVE SEPARATOR, HEATHER 682 .9 Cellulitis/abscess 05/14/2012 GOVIND SLEEVE SEPARATORMARIANNA Sunshine 68 2.9 Cellulitis/abscess 05/14/2012 MARIANNA FAUST APRN 68 2.9 Cellulitis/abscess 06/24/2012 BRANDEE SLEEVE SEPARATOR, HEATHER 112 .1 Candidiasis, Of Vulva And Vagina 06/24/2012 BRANDEE SLEEVE SEPARATOR, HEATHER 112 .1 Candidiasis, Of Vulva And Vagina 06/24/2012 BRANDEE SLEEVE SEPARATORHEATHER 112 .1 Candidiasis, Of Vulva And Vagina 06/24/2012 BRANDEE SLEEVE SEPARATOR, HEATHER 112 .1 Candidiasis, Of Vulva And Vagina 06/24/2012 BRANDEE SLEEVE SEPARATOR, HEATHER 112 .1 Candidiasis, Of Vulva And Vagina 06/24/2012 BRANDEE SLEEVE SEPARATORHEATHER 112 .1 Candidiasis, Of Vulva And Vagina 06/24/2012 BRANDEE SLEEVE SEPARATOR, HEATHER 112 .1 Candidiasis, Of Vulva And Vagina 06/24/2012 GOVIND SLEEVE SEPARATOR MARIANNA 11 2.1 Candidiasis, Of Vulva And Vagina 06/24/2012 GOVIND SLEEVE SEPARATOR, MARIANNA 11 2.1 Candidiasis, Of Vulva And Vagina 06/28/2012 BRANDEE SLEEVE SEPARATOR, HEATHER 110 .1 Onychomycosis 06/28/2012 BRANDEE SLEEVE SEPARATOR, HEATHER 703 .8 Other Specified Diseases Of Nail 06/28/2012 BRANDEE SLEEVE SEPARATOR, HEATHER 110 .1 Onychomycosis 06/28/2012 BRANDEE SLEEVE SEPARATOR, HEATHER 703 .8 Other Specified Diseases Of Nail 06/28/2012 BRANDEE SLEEVE SEPARATOR, HEATHER 110 .1 Onychomycosis 06/28/2012 BRANDEE SLEEVE SEPARATOR, HEATHER 703 .8 Other Specified Diseases Of Nail 06/28/2012 BRANDEE SLEEVE SEPARATOR, HEATHER 110 .1 Onychomycosis 06/28/2012 BRANDEE SLEEVE SEPARATOR, HEATHER 703 .8 Other Specified Diseases Of Nail 06/28/2012 BRANDEE SLEEVE SEPARATOR, HEATHER 110 .1 Onychomycosis 06/28/2012 BRANDEE SLEEVE SEPARATOR, HEATHER 703 .8 Other Specified Diseases Of Nail 06/28/2012 BRANDEE SLEEVE SEPARATOR, HEATHER 110 .1 Onychomycosis 06/28/2012 BRANDEE SLEEVE SEPARATOR, HEATHER 703 .8 Other Specified Diseases Of Nail 06/28/2012 BRANDEE SLEEVE SEPARATOR, HEATHER 110 .1 Onychomycosis 06/28/2012 BRANDEE SLEEVE SEPARATOR, HEATHER 703 .8 Other Specified Diseases Of Nail 06/28/2012 GOVIND SLEEVE SEPARATOR MARIANNA 11 0.1 Onychomycosis 06/28/2012 GOVIND SLEEVE SEPARATOR, MARIANNA 70 3.8 Other Specified Diseases Of Nail 06/28/2012 GOVIND SLEEVE SEPARATOR MARIANNA 11 0.1 Onychomycosis 06/28/2012 GOVIND SLEEVE SEPARATOR, MARIANNA 70 3.8 Other Specified Diseases Of Nail 08/21/2012 BRANDEE SLEEVE SEPARATOR, HEATHER 682 .9 Cellulitis/abscess 08/21/2012 BRANDEE SLEEVE SEPARATOR, HEATHER V72 .31 Gynecological Exam 08/21/2012 BRANDEE SLEEVE SEPARATOR, HEATHER 682 .9 Cellulitis/abscess 08/21/2012 BRANDEE SLEEVE SEPARATOR, HEATHER V72 .31 Gynecological Exam 08/21/2012 BRANDEE SLEEVE SEPARATOR, HEATHER 682 .9 Cellulitis/abscess 08/21/2012 BRANDEE SLEEVE SEPARATOR, HEATHER V72 .31 Gynecological Exam 08/21/2012 BRANDEE SLEEVE SEPARATOR, HEATHER 682 .9 Cellulitis/abscess 08/21/2012 BRANDEE SLEEVE SEPARATOR, HEATHER V72 .31 Gynecological Exam 08/21/2012 BRANDEE SLEEVE SEPARATOR, HEATHER 682 .9 Cellulitis/abscess 08/21/2012 BRANDEE SLEEVE SEPARATOR, HEATHER V72 .31 Gynecological Exam 08/21/2012 BRANDEE SLEEVE SEPARATOR, HEATHER 682 .9 Cellulitis/abscess 08/21/2012 BRANDEE SLEEVE SEPARATOR, HEATHER V72 .31 Gynecological Exam 08/21/2012 BRANDEE SLEEVE SEPARATOR, HEATHER 682 .9 Cellulitis/abscess 08/21/2012 BRANDEE SLEEVE SEPARATOR, HEATHER V72 .31 Gynecological Exam 08/21/2012 GOVIND SLEEVE SEPARATOR, MARIANNA 68 2.9 Cellulitis/abscess 08/21/2012 GOVIND SLEEVE SEPARATOR, MARIANNA V72.31 Gynecological Exam 08/21/2012 GOVIND SLEEVE SEPARATOR, MARIANNA 68 2.9 Cellulitis/abscess 08/21/2012 GOVIND SLEEVE SEPARATOR, MARIANNA V72.31 Gynecological Exam 10/08/2012 [facility] SLEEVE SEPARATOR, HEATHER 466 .0 Bronchitis, Acute 10/08/2012 BRANDEE SLEEVE SEPARATOR, HEATHER 466 .0 Bronchitis, Acute 10/08/2012 [facility] SLEEVE SEPARATOR, HEATHER 466 .0 Bronchitis, Acute 10/08/2012 BRANDEE SLEEVE SEPARATOR, HEATHER 466 .0 Bronchitis, Acute 10/08/2012 BRANDEE SLEEVE SEPARATOR, HEATHER 466 .0 Bronchitis, Acute 10/08/2012 BRANDEE SLEEVE SEPARATOR, HEATHER 466 .0 Bronchitis, Acute 10/08/2012 BRANDEE SLEEVE SEPARATOR, HEATHER 466 .0 Bronchitis, Acute 10/08/2012 GOVIND SLEEVE SEPARATOR, MARIANNA 46 6.0 Bronchitis, Acute 10/08/2012 GOVIND SLEEVE SEPARATOR, MARIANNA 46 6.0 Bronchitis, Acute 12/05/2012 [facility] SLEEVE SEPARATOR, HEATHER 599 .0 Uti 12/05/2012 BRANDEE SLEEVE SEPARATOR, HEATHER 599 .0 Uti 12/05/2012 BRANDEE SLEEVE SEPARATOR, HEATHER 599 .0 Uti 12/05/2012 BRANDEE SLEEVE SEPARATOR, HEATHER 599 .0 Uti 12/05/2012 BRANDEE SLEEVE SEPARATOR, HEATHER 599 .0 Uti 12/05/2012 BRANDEE SLEEVE SEPARATOR, HEATHER 599 .0 Uti 12/05/2012 BRANDEE SLEEVE SEPARATOR, HEATHER 599 .0 Uti 12/05/2012 GOVIND SLEEVE SEPARATOR, MARIANNA 59 9.0 Uti 12/05/2012 GOVIND SLEEVE SEPARATOR, MARIANNA 59 9.0 Uti 05/21/2013 BRANDEE SLEEVE SEPARATOR, HEATHER 285 .9 ANEMIA, UNSPECIFIED 05/21/2013 BRANDEE SLEEVE SEPARATOR, HEATHER 285 .9 ANEMIA, UNSPECIFIED 05/21/2013 BRANDEE SLEEVE SEPARATOR, HEATHER 285 .9 ANEMIA, UNSPECIFIED 05/21/2013 BRANDEE SLEEVE SEPARATOR, HEATHER 285 .9 ANEMIA, UNSPECIFIED 05/21/2013 BRANDEE SLEEVE SEPARATOR, HEATHER 285 .9 ANEMIA, UNSPECIFIED 05/21/2013 BRANDEE SLEEVE SEPARATOR, HEATHER 285 .9 ANEMIA, UNSPECIFIED 05/21/2013 BRANDEE SLEEVE SEPARATOR, HEATHER 285 .9 ANEMIA, UNSPECIFIED 05/21/2013 GOVIND SLEEVE SEPARATOR, MARIANNA 28 5.9 ANEMIA, UNSPECIFIED 08/07/2013 BRANDEE SLEEVE SEPARATOR, HEATHER 682 .5 CELLULITIS AND ABSCESS OF BUTTOCK 08/07/2013 BRANDEE SLEEVE SEPARATOR, HEATHER 682 .5 CELLULITIS AND ABSCESS OF BUTTOCK 08/07/2013 BRANDEE SLEEVE SEPARATOR, HEATHER 682 .5 CELLULITIS AND ABSCESS OF BUTTOCK 08/07/2013 BRANDEE SLEEVE SEPARATOR, HEATHER 682 .5 CELLULITIS AND ABSCESS OF BUTTOCK 08/07/2013 BRANDEE SLEEVE SEPARATOR, HEATHER 682 .5 CELLULITIS AND ABSCESS OF BUTTOCK 08/07/2013 BRANDEE SLEEVE SEPARATOR, HEATHER 682 .5 CELLULITIS AND ABSCESS OF BUTTOCK 08/07/2013 BRANDEE SLEEVE SEPARATOR, HEATHER 682 .5 CELLULITIS AND ABSCESS OF BUTTOCK 12/12/2013 BRANDEE SLEEVE SEPARATOR, HEATHER 250 .02 DIABETES MELLITUS WITHOUT MENTION [...] Sahni MD K4 3.9 Hernia, Ventral 06/28/2018 Halel Sahni MD Z68.36 BMI 36-36.9 07/03/2018 Halle [...] Z90.5 ACQUIRED ABSENCE OF KIDNEY 10/17/2018 DIANE DELICD MD, Ot Z90.7 10 ACQUIRED ABSENCE OF [...] F17.210 NICOTINE DEPENDENCE, CIGARETTES, UNCOMPL 11/08/2018 JAME UCLVER DO T Ot I1 0 ESSENTIAL (PRIMARY) [...] PERSONAL HISTORY OF OTHER MALIGNANT NEOP 11/14/2018 DAINEL HERNANDEZ MD, Ot Z87.01 PERSONAL HISTORY OF [...] Funes Ot R10.84 GENERALIZED ABDOMINAL PAIN 01/02/2019 [place] DOJAZIEL Ot B37.49 OTHER UROGENITAL CANDIDIASIS 01/02/2019 WONG DO, JAZIEL Ot E11.9 TYPE 2 DIABETES MELLITUS WITHOUT COMPLIC 01/02/2019 WONG DO, JAZIEL Ot I10 ESSENTIAL (PRIMARY) HYPERTENSION 01/02/2019 [place] , JAZIEL Ot J45.909 UNSPECIFIED ASTHMA, UNCOMPLICATED [...] JAZIEL Ot Z98.51 TUBAL LIGATION STATUS 01/04/2019 [place] DO, JAZIEL Ot E11.9 TYPE 2 DIABETES MELLITUS WITHOUT COMPLIC 01/04/2019 [place] DO, JAZIEL Ot I10 ESSENTIAL (PRIMARY) HYPERTENSION 01/04/2019 [place] DO, JAZIEL Ot J45.909 UNSPECIFIED ASTHMA, UNCOMPLICATED [...] OTHER FORMS OF DYSPNEA 03/22/2019 BASS DO, EDBBIE L Ot Z77.2 2 CNTCT W AND [...] [place] DO Ot Z79.8 99 OTHER [facility] (CURRENT) DRUG THERAPY 03/24/2019 MIKAYLA DE LOS [...] [place]ANT[place] DO Ot Z79.8 99 OTHER [facility] (CURRENT) DRUG THERAPY 03/27/2019 MIKAYLA DE LOS [...] 04/14/2019 LUCÍA FUENTES MD Ot Z79. 84 [facility] (CURRENT) USE OF ORAL HYPOGLYC 04/14/2019 LUCÍA [...] 04/16/2019 LUCÍA FUENTES MD, Ot Z79. 84 [facility] (CURRENT) USE OF ORAL HYPOGLYC 04/16/2019 LUCÍA FUENTES MD, Ot Z85.528 PERSONAL HISTORY OF OTHER MALIGNANT NEOP 04/16/2019 LUCÍA FUENTES MD, Ot Z87.440 PERSONAL HISTORY OF URINARY (TRACT) INFE 04/16/2019 LUCÍA FUENTES MD, Ot Z87.442 PERSONAL HISTORY OF URINARY CALCULI 04/16/2019 LUCÍA FUNETES MD, Ot Z90. 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 06/02/2019 MIKAYLA DE [place] SANTOS DO Ot D12.2 BENIGN NEOPLASM OF ASCENDING COLON 06/02/2019 MIKAYLA DE [place] SANTOS DO Ot D12.5 [...] MIKAYLA DE [place] SANTOS DO Ot Z79.1 [facility] (CURRENT) USE OF NON-STEROIDAL 06/02/2019 MIKAYLA DE [place] SANTOS DO Ot Z79.8 99 OTHER [facility] (CURRENT) DRUG THERAPY 06/02/2019 MIKAYLA DE LOS [...] DISEASE, U 06/05/2019 MIKAYLA DE [place] SANTOS DO, Ot K64.8 OTHER HEMORRHOIDS 06/05/2019 MIKAYLA DE LOS SANTOS DO, Ot Z12.1 1 ENCOUNTER FOR SCREENING FOR MALIGNANT NE 06/05/2019 MIKAYLA DE LOS SANTOS DO Ot Z68.3 6 BODY MASS INDEX (BMI) 36.0-36.9, ADULT 06/05/2019 MIKAYLA DE LOS SANTOS DO, Ot Z79.1 MCC (CURRENT) USE OF NON-STEROIDAL 06/05/2019 MIKAYLA DE LOS SANTOS DO Ot Z79.8 99 OTHER [facility] (CURRENT) DRUG THERAPY 06/05/2019 MIKAYLA DE LOS [...] UNCOMPLICATED 06/13/2019 JAZIEL WONG DO Ot Z79.84 [facility] (CURRENT) USE OF ORAL HYPOGLYC 06/13/2019 MARVIN [...] UNCOMPLICATED 06/17/2019 JAZIEL WONG DO Ot Z79.84 MCC (CURRENT) USE OF ORAL HYPOGLYC 06/17/2019 JAZIEL [...] SMO 06/18/2019 MAKSIM RICCI MD, Ot Z79.84 [facility] (CURRENT) USE OF ORAL HYPOGLYC 06/18/2019 MAKSIM [...] 06/21/2019 MARK BOJORQUEZ MD Ot Z79. 84 [facility] (CURRENT) USE OF ORAL HYPOGLYC 06/21/2019 MARK [...] 06/25/2019 MARK BOJORQUEZ MD Ot Z79. 84 [facility] (CURRENT) USE OF ORAL HYPOGLYC 06/25/2019 MARK [...] 06/27/2019 MARK BOJORQUEZ MD Ot Z79. 84 MCC (CURRENT) USE OF ORAL HYPOGLYC 06/27/2019 MARK [...] TOBACCO SMO 06/27/2019 ROVENSTINE DOEDNA Ot Z79.84 [facility] (CURRENT) USE OF ORAL HYPOGLYC 06/27/2019 ROVENSTINE [...] SMO 07/01/2019 ROVENSTINE EDNA BLANCA Ot Z79.84 [facility] (CURRENT) USE OF ORAL HYPOGLYC 07/01/2019 JAKEVENSTINE [...] ABSENCE OF OTHER ORGANS 07/01/2019 ROVENSTINE DO DENA Jacques Ot Z98.51 TUBAL LIGATION STATUS 07/01/2019 [...] 07/06/2019 BASS DO, DEBBIE L Ot Z79.4 MCC (CURRENT) USE OF INSULIN 07/06/2019 BASS DO, DEBBIE L Ot Z85.5 1 PERSONAL HISTORY OF MALIGNANT NEOPLASM O 07/06/2019 BASS DO, DEBIBE L Ot Z85.5 28 PERSONAL HISTORY OF [...] 07/08/2019 BASS DO, DEBBIE L Ot Z79.4 MCC (CURRENT) USE OF INSULIN 07/08/2019 BASS DO, [...] F31.9 BIPOLAR DISORDER, UNSPECIFIED 10/19/2019 JOSE HOOVER MD Ot F41.9 ANXIETY DISORDER, UNSPECIFIED 10/19/2019 JOSE HOOVER MD, Ot F43.20 ADJUSTMENT DISORDER, UNSPECIFIED 10/19/2019 JOSE HOOVER MD Ot I1 0 ESSENTIAL (PRIMARY) HYPERTENSION 10/19/2019 JOSE HOOVER MD, Ot Z79.84 [facility] (CURRENT) USE OF ORAL HYPOGLYC 10/19/2019 JOSE HOOVER MD, Ot Z85.51 PERSONAL HISTORY OF MALIGNANT NEOPLASM O 10/19/2019 JOSE HOOVER MD, Ot Z85.528 PERSONAL HISTORY OF OTHER MALIGNANT NEOP 10/22/2019 JOSE HOOVER MD, Ot E11.9 TYPE 2 DIABETES MELLITUS WITHOUT COMPLIC 10/22/2019 JOSE HOOVER MD, Ot E78.00 PURE HYPERCHOLESTEROLEMIA, UNSPECIFIED 10/22/2019 JOSE HOOVER MD Ot F17.210 NICOTINE DEPENDENCE, CIGARETTES, UNCOMPL 10/22/2019 JOSE HOOVER MD, Ot F31.9 BIPOLAR DISORDER, UNSPECIFIED 10/22/2019 JOSE HOOVER MD, Ot F41.9 ANXIETY DISORDER, UNSPECIFIED 10/22/2019 JOSE HOOVER MD, Ot F43.20 ADJUSTMENT DISORDER, UNSPECIFIED 10/22/2019 JOSE HOOVER MD, Ot I1 0 ESSENTIAL (PRIMARY) HYPERTENSION 10/22/2019 JOSE HOOVER MD Ot Z79.84 [facility] (CURRENT) USE OF ORAL HYPOGLYC 10/22/2019 JOSE HOOVER MD, Ot Z85.51 PERSONAL HISTORY OF MALIGNANT NEOPLASM O 10/22/2019 JOSE HOOVER MD, Ot Z85.528 PERSONAL HISTORY OF OTHER MALIGNANT NEOP 10/28/2019 JERI BATEMAN, MANASA Funes Ot R10.84 GENERALIZED ABDOMINAL PAIN 10/28/2019 MIKAYLA DE LOS SANTOS DO Ot Z01.8 18 ENCOUNTER FOR OTHER PREPROCEDURAL EXAMIN 11/20/2019 BASS DO, DEBBIE L Ot E11.9 TYPE 2 DIABETES MELLITUS WITHOUT COMPLIC 11/20/2019 BASS DO, DEBBIE L Ot E78.0 0 PURE HYPERCHOLESTEROLEMIA, UNSPECIFIED 11/20/2019 BASS DO, DEBBIE L Ot F31.9 BIPOLAR DISORDER, UNSPECIFIED 11/20/2019 BASS DO, DEBBIE L Ot F41.0 PANIC DISORDER [EPISODIC PAROXYSMAL ANXI 11/20/2019 BASS DO, DEBBIE L Ot G47.3 3 OBSTRUCTIVE SLEEP APNEA (ADULT) (PEDIATR 11/20/2019 BASS DO, DEBBIE L Ot I10 ESSENTIAL (PRIMARY) HYPERTENSION 11/20/2019 BASS DO, DEBBIE L Ot J43.9 EMPHYSEMA, UNSPECIFIED 11/20/2019 BASS DO, DEBBIE L Ot J45.9 09 UNSPECIFIED ASTHMA, UNCOMPLICATED 11/20/2019 BASS DO, DEBBIE L Ot R06.0 2 SHORTNESS OF BREATH 11/20/2019 BASS DO, DEBBIE L Ot Z77.2 2 CNTCT W AND EXPSR TO ENVIRON TOBACCO SMO 11/20/2019 BASS DO, DEBBIE L Ot Z79.8 4 MCC (CURRENT) USE OF ORAL HYPOGLYC 11/20/2019 BASS DO, DEBBIE L Ot Z85.5 1 PERSONAL HISTORY OF MALIGNANT NEOPLASM O 11/20/2019 BASS DO, DEBBIE L Ot Z85.5 28 PERSONAL HISTORY OF OTHER MALIGNANT NEOP 11/20/2019 BASS DO, DEBBIE L Ot Z90.7 10 ACQUIRED ABSENCE OF BOTH CERVIX AND UTER 11/20/2019 BASS DO, DEBBIE L Ot Z98.5 1 TUBAL LIGATION STATUS 11/24/2019 BASS DO, DEBBIE L Ot E11.9 TYPE 2 DIABETES MELLITUS WITHOUT COMPLIC 11/24/2019 BASS DO, DEBBIE L Ot E78.0 0 PURE HYPERCHOLESTEROLEMIA, UNSPECIFIED 11/24/2019 BASS DO, DEBBIE L Ot F31.9 BIPOLAR DISORDER, UNSPECIFIED 11/24/2019 BASS DO, DEBBIE L Ot F41.0 PANIC DISORDER [EPISODIC PAROXYSMAL ANXI 11/24/2019 BASS DO, DEBBIE L Ot G47.3 3 OBSTRUCTIVE SLEEP APNEA (ADULT) (PEDIATR 11/24/2019 BASS DO, DEBBIE L Ot I10 ESSENTIAL (PRIMARY) HYPERTENSION 11/24/2019 BASS DO, DEBBIE L Ot J43.9 EMPHYSEMA, UNSPECIFIED 11/24/2019 BASS DO, DBEBIE L Ot J45.9 09 UNSPECIFIED ASTHMA, UNCOMPLICATED 11/24/2019 BASS DO, DEBBIE L Ot R06.0 2 SHORTNESS OF BREATH 11/24/2019 BASS DO, DEBBIE L Ot Z77.2 2 CNTCT W AND EXPSR TO ENVIRON TOBACCO SMO 11/24/2019 BASS DO, DEBBIE L Ot Z79.8 4 MCC (CURRENT) USE OF ORAL HYPOGLYC 11/24/2019 BASS DO, DEBBIE L Ot Z85.5 1 PERSONAL HISTORY OF MALIGNANT NEOPLASM O 11/24/2019 BASS DO, DEBBIE L Ot Z85.5 28 PERSONAL HISTORY OF OTHER MALIGNANT NEOP 11/24/2019 BASS DO, DEBBIE L Ot Z90.7 10 ACQUIRED ABSENCE OF BOTH CERVIX AND UTER 11/24/2019 BASS DO, DEBBIE L Ot Z98.5 1 TUBAL LIGATION STATUS 12/03/2019 CHANDRAKANT NICE JEWEL BEARING BROACHER Ot M25.46 1 EFFUSION, RIGHT KNEE 12/03/2019 TEX, CHANDRAKANT JEWEL BEARING BROACHER Ot W19.XX XA UNSPECIFIED FALL, INITIAL ENCOUNTER 12/07/2019 CHANDRAKANT NICEP Ot M25.46 1 EFFUSION, RIGHT KNEE 12/07/2019 TEX, CHANDRAKANT JEWEL BEARING BROACHER Ot W19.XX XA UNSPECIFIED FALL, INITIAL ENCOUNTER Procedures Code Description [place] [address] GLUCOSE 05/08/2013 36304 HEMO GLOBIN A1C 05/08/2013 G0008 ADMI N FEE (MEDICARE) INFLUENZA 05/14/2013 94111 CBC - CBC WITH DIFF - LC 05/15/2013 23981 COMP - COMPREHENSIVE PANEL - LC 05/15/2013 41649 LIPI D - LIPID PANEL - LC 05/15/2013 80767 TSH - TSH - LC 05/15/2013 93916 MALB - MICROALBUMIN - LC 05/15/2013 59621 GLUCOSE 08/11/2013 35883 HEMO GLOBIN A1C 08/11/2013 33742 CBC WITH DIFF 08/12/2013 86825 GLUCOSE 10/07/2013 4000F TOBA PONY ROUGHER USE TXMNT COUNSELING 10/13/2013 23113 PULS E OXIMETRY 12/12/2013 A4614 PEAK FLOW 12/12/2013 07339 GLUCOSE 12/12/2013 35852 HEMO GLOBIN A1C 12/12/2013 Pulmonary Pulmonary Function Test 01/13/2014 A4614 PEAK FLOW 02/10/2014 56512 PULS E OXIMETRY 02/10/2014 90550 GLUCOSE 02/10/2014 Endocrino Endocrinology 02/13/2014 Pulmonary Pulmonology, Pulmonology 03/13/2014 11461 PULS E OXIMETRY 04/14/2014 A4614 PEAK FLOW [...] 7-25 CREATININE 0.90 mg/dL 0.50-1.05 eGFR NON-AFR. [place] 74 mL/min/1.73m2 > OR = 60 eGFR [...] anisocytosis detection by light microscopy [facility] Blood dohle body detection by light microscopy [facility] Blood microcytes detection by light microscopy [facility] Comprehensive metabolic panel - 11/06/18 [...] culture - 11/06/18 18:55 Bacterial blood culture [facility] Influenza virus A and B antigen detectio n - 11/06/18 18:59 FLU RESULT NEGATIVE FOR INFLUENZA A AND B ANTIGENS BY IA [facility] Bacterial blood culture - 11/06/18 19:08 Bacterial blood culture [facility] Capillary blood glucose measurement by g [...] urinalysis with reflex to cultu re - 05/17/19 10:10 Urine color determination AKBAR NRG Urine [...] culture - 01/04/19 19:30 Bacterial urine culture [id number] NRG COLONY COUNT 30,000 CFU/ML NRG Complete [...] culture - 01/04/19 20:35 Bacterial urine culture [id number] NRG COLONY COUNT . NRG FTX;REPORTABLE <10,000 [...] miu/l (units/volume) 2.74 u[iU]/mL 0.35-4.94 PDM - PANEL (PROFILE 1) - 01/30/19 09 :47 [...] 7-25 CREATININE 1.23 mg/dL 0.50-1.05 eGFR NON-AFR. [place] 50 mL/min/1.73m2 > OR = 60 eGFR [...] urinalysis with reflex to cultu re - 12/22/19 18:00 Urine color determination YELLOW NRG Urine [...] TIVE Urine propoxyphene detection NEGATIVE N EGATIVE VITAMIN D, 25-H - 11/06/19 09:55 VITAMIN D,25-OH,TOTAL,IA 11 ng/mL 30-10 0 A1C - 11/06/19 09:55 HEMOGLOBIN A1c 8.3 % of total Hgb <5.7 VITAMIN B12 - 11/06/19 09:58 VITAMIN B12 409 pg/mL 200-1100 COVID-19 ([facility]) - 11/17/19 16:29 Automated blood complete blood count (he mogram) [...] Status Pt. Type Provider Facility Loc./Unit Complaint [id number] 10/30/2018 17:22:00 Document Registration [id number] 10/30/2018 17:22:00 Document Registration [id number] 04/26/2019 03:58:14 ACT Document Registration [id number] 11/22/2019 11:50:01 ACT Unknown Halle Sahni MD [id number] 12/01/2019 15:01:00 23:59:59 CLS Outpatient CHANDRAKANT NICE [facility] RAD FS ACUTE PAIN OF RT KNEE [id number] 11/20/2019 15:21:00 17:05:00 DIS Emergency BASS DODALIAR L [facility] ER FS SOA [id number] 10/19/2019 11:52:00 12:40:00 DIS Emergency JOSE HOOVER MD [facility] ER FS PSYCH EVAL [id number] 07/06/2019 17:56:00 20:32:00 DIS Emergency BASS DALIA BLANCAR L [facility] ER FS HIGH BLOOD SUGAR [id number] 06/27/2019 21:51:00 22:23:00 DIS Emergency ROVENSTEDNA SINGH DO [facility] ER FS SOB,N,V [id number] 06/21/2019 15:26:00 18:47:00 DIS Emergency MARYELLEN BATEMAN, MARK Witt [facility] ER FS BLOOD SUGAR 415; SOB [id number] 06/17/2019 23:44:00 00:22:00 DIS Emergency MAKSIM RICCI MD [facility] ER FS SORE THROAT [id number] 06/12/2019 20:58:00 00:00:00 DIS Emergency JAZIEL WONG DO [facility] ER FS PSYCH EVAL [id number] 06/02/2019 08:49:00 12:33:00 DIS Outpatient MIKAYLA DE LOS SANTOS DO [facility] ENDO HX POLYPS [id number] 05/06/2019 13:20:00 13:25:00 DIS Outpatient MIKAYLA DE LOS SANTOS DO [facility] PREOP COLONOSCOPY [id number] 04/14/2019 13:32:00 17:50:00 DIS Emergency LUCÍA FUENTES MD [facility] ER FS SOB; CHEST PAIN [id number] 03/24/2019 10:00:00 12:45:00 DIS Outpatient MIKAYLA DE LOS SANTOS DO [facility] ENDO SCREENING [id number] 03/22/2019 20:27:00 21:50:00 DIS Emergency DEBBIE BASS DO [facility] ER FS SOA [id number] 03/18/2019 05:38:00 23:59:59 CLS Outpatient MIKAYLA DE LOS SANTOS DO [facility] PREOP COLONOSCOPY [id number] 03/07/2019 21:51:00 22:35:00 DIS Emergency RABIA WILKS MD [facility] ER FS PANIC ATTACK [id number] 01/11/2019 15:06:00 17:55:00 DIS Emergency DEBBIE BASS DO L [facility] ER FS PT STATES SHE NEEDS A M ENTAL HEALTH SCREENING [id number] 01/10/2019 19:58:00 21:53:00 DIS Emergency DIANE DELCID MD [facility] ER FS SEVERE RT SIDE ABD PAIN ;SOB [id number] 01/08/2019 17:11:00 20:40:00 DIS Emergency POLA WEBB DO [facility] ER FS CHEST PAIN, SOB [id number] 01/06/2019 21:51:00 01:32:00 DIS Emergency POLA WEBB DO [facility] ER FS MENTAL HEALTH EVAL [id number] 01/05/2019 19:25:00 20:17:00 DIS Emergency TARIK GEORGE DO [facility] ER FS RIGHT SIDE PAIN [id number] 01/04/2019 19:17:00 21:13:00 DIS Emergency JAZIEL WONG DO [facility] ER FS RIGHT SIDE PAIN [id number] 01/02/2019 04:59:00 05:55:00 DIS Emergency JAZIEL WONG DO [facility] ER FS RIGHT SIDE PAIN [id number] 12/21/2018 17:59:00 19:50:00 DIS Emergency BHAVIN BATEMAN, DIANE Franco [facility] ER FS SOB,VAGINAL PAIN [id number] 12/14/2018 14:21:00 16:45:00 DIS Emergency LUCÍA FUENTES MD [facility] ER FS ABD PAIN,VAGINAL PAIN F ROM CATHETER [id number] 12/12/2018 13:47:00 23:59:59 CLS Outpatient JERI BATEMAN, MANASA Funes [facility] RAD FS R10.84 GEN ABD PAIN [id number] 11/29/2018 08:34:00 16:55:00 DIS Emergency DIANE DELCID MD [facility] ER FS URINARY RETENTION [id number] 11/14/2018 21:43:00 23:23:00 DIS Emergency MARY BATEMAN, DANIEL de dios [facility] ER FS BLOOD SUGAR ISSUES [id number] 11/06/2018 17:40:00 01:30:00 DIS Emergency JAME CULVER DO [facility] ER FS SOB,CHEST PAIN [id number] 10/30/2018 20:30:00 00:33:00 DIS Emergency DIANE DELCID MD [facility] ER FS SOB, HIGH BLOOD SUGAR, ABD SORE [id number] 10/16/2018 22:53:00 00:25:00 DIS Emergency BHAVIN BATEMAN, DIANE Franco [facility] ER FS CHEST PAINS [id number] 10/13/2018 17:02:00 20:45:00 DIS Emergency MARY BATEMAN, DANIEL de dios [facility] ER FS CHEST PAIN,SOB [id number] 09/18/2018 20:56:00 07:30:00 DIS Emergency KAPIL BLANCA NOEL Osorio [facility] ER FS HIGH BLOOD SUGAR, SOB [id number] 09/12/2018 14:20:00 15:56:00 DIS Emergency MARY BATEMAN, DANIEL de dios [facility] ER FS FALL; RT HIP/MI WRIST INJ [id number] 12/24/2018 10:40:00 9 23:59:59 DIS Outpatient LINDA SAHNI [facility] CHRISTOPHER RAD [id number] 08/26/2018 07:22:56 9 23:59:59 DIS Outpatient DANAY SORIA V [facility]HER LAB [id number] 05/30/2018 08:41:17 8 23:59:59 DIS Outpatient LINDA SAHNI [facility] CHRISTOPHER RAD [id number] 04/25/2018 12:24:37 8 23:59:59 CLS Preadmit LINDA SAHNI [facility] CHRISTOPHER Surgery ops [id number] 04/02/2019 11:54:39 Document Registration [id number] 11/13/2018 14:34:59 Document Registration [id number] 08/06/2018 13:35:03 Document Registration [id number] 07/05/2018 09:35:35 ACT V AMADOU ROBERT [facility] CHRISTOPHER MS [id number] 06/18/2018 06:13:13 Inpatient LINDA SAHNI [facility] CHRISTOPHER MS ops [id number] 06/30/2019 16:00:00 07/04/2019 10:30 :00 DIS Inpatient Lianna Davis enter ICU [id number] 06/30/2019 17:27:54 Document Registration [id number] 12/07/2019 13:00:00 12/07/2019 23:59: 59 CLS Outpatient BRENDA DIEZ [facility] [id number] 11/17/2019 16:00:00 Document Registration [id number] 11/06/2019 09:15:00 Document Registration [id number] 08/04/2019 15:15:00 Document Registration [id number] 05/23/2019 07:00:00 Document Registration [id number] 01/30/2019 09:40:00 Document Registration [id number] 12/30/2018 16:30:00 Document Registration [id number] 12/30/2018 14:39:00 Document Registration [id number] 12/18/2018 12:00:00 Document Registration [id number] 10/07/2018 13:15:00 Document Registration [id number] 09/25/2018 09:45:00 Document Registration [id number] 04/14/2014 08:59:00 04/14/2014 11:05: 00 DIS Outpatient BRANDEE HEATHER WRIGHT [id number] 02/10/2014 09:57:00 02/10/2014 23:59: 59 CLS Outpatient BRANDEE KYLE HEATHER [id number] 02/10/2014 09:57:00 02/10/2014 23:59: 59 CLS Outpatient BRANDEE HEATHER WRIGHT [id number] 12/12/2013 10:38:00 12/12/2013 23:59: 59 CLS Outpatient BRANDEE KYLE HEATHER [id number] 10/07/2013 14:37:00 10/13/2013 20:05: 00 DIS Outpatient BRANDEE HEATHER WRIGHT [id number] 10/07/2013 14:37:00 10/07/2013 23:59: 59 CLS Outpatient BRANDEE HEATHER WRIGHT [id number] 08/11/2013 10:11:00 08/11/2013 13:49: 00 DIS Outpatient HEATHER IRVIN APRN [id number] 05/08/2013 09:56:00 05/08/2013 23:59:5 9 CLS Outpatient MARIANNA FAUST APRN [id number] 01/08/2013 08:25:00 01/08/2013 23:59:5 9 CLS Outpatient MARIANNA FAUST APRN [id number] 10/15/2014 15:34:45 10/15/2014 23: 59:00 DIS Outpatient SONY CAMPO [facility] [id number] 08/12/2014 12:31:00 08/12/2014 14: 34:00 DIS Emergency [facility] [id number] 06/21/2014 16:47:00 06/21/2014 17: 52:00 DIS Emergency [facility] [id number] 09/02/2014 00:00:00 Document Registration
[2019-12-14 10:17] LABS: BILIRUBIN,URINE NEGATIVE (NEGATIVE); CLARITY,URINE CLEAR; COLOR,URINE YELLOW; GLUCOSE, URINE (UA) 3+ (NEGATIVE); KETONES,URINE NEGATIVE (NEGATIVE); LEUKOCYTE ESTERASE ,URINE NEGATIVE (NEGATIVE); NITRITE,URINE NEGATIVE (NEGATIVE); PROTEIN,URINE NEGATIVE (NEGATIVE)
[2019-12-14 10:18] LABS: SQUAMOUS EPITHELIAL CELL,UR RARE /HPF
--- NOTE | 2019-12-14 10:27 | ED General ---
General Chief Complaint: Glucose Problems Stated Complaint: BS IS 510 Nursing Triage Note: States glucose reading prior to arrival was 510. States she feels fine, but it is not coming down. Has had 13.5 units of insulin through her pump today. Changed insulin sites this morning. Blood sugar on arrival is 417 Nursing Sepsis Screen: No Definite Risk Source of Information: Patient History of Present Illness Date Seen by Provider: December 14, 2019 Time Seen by Provider: 09:41 Initial Comments 54 yo Female presenting with complaints of elevated blood sugar. She states that she's been about some of her supplies and last few days. Today she woke up and her sugar was 377 so she changed her insulin and the site for her insulin pump. She put in for bolus of insulin on her pump but her sugar was 510 prior to coming into the emergency department. She was feeling fine but was concerned about the elevated glucose. She denies any fever or chills. She has no burning with urination. She states that her cough is not any worse than normal. Allergies and Home Medications Allergies Coded Allergies: No Known Drug Allergies (Unverified , 05/06/19) Home Medications Atorvastatin Calcium 10 Mg Tablet, 10 MG PO HS, (Reported) Benzonatate 100 Mg Capsule, 100 MG PO Q8H PRN for COUGH Prescribed by: DEBBIE BASS on 11/20/19 1636 Escitalopram Oxalate 10 Mg Tablet, 10 MG PO DAILY, (Reported) Ibuprofen 800 Mg Tablet, 800 MG PO Q8H PRN for PAIN-MILD, (Reported) Linagliptin 5 Mg Tablet, 5 MG PO DAILY, (Reported) Lisinopril 5 Mg Tablet, 5 MG PO DAILY, (Reported) Metformin HCl 750 Mg Tab.er.24h, 1,500 MG PO HS, (Reported) Nebivolol HCl 10 Mg Tab, 10 MG PO DAILY, (Reported) Olanzapine 10 Mg Tablet, 10 MG PO HS, (Reported) Tramadol HCl 50 Mg Tablet, 50 MG PO PRN, (Reported) Ziprasidone 80 Mg Cap, 160 MG PO HS, (Reported) Patient Home Medication List Home Medication List Reviewed: Yes Review of Systems Review of Systems Constitutional: No chills, No fever EENTM: no symptoms reported Respiratory: cough (chronic from COPD), short of breath (chronic and not worse than normal), wheezing (chronic from COPD and not worse than normal) Cardiovascular: no symptoms reported Gastrointestinal: no symptoms reported Genitourinary: No dysuria; frequency; No hematuria, No incontinence Musculoskeletal: no symptoms reported Skin: no symptoms reported Past Fhofaco-Zultys-Mckvln Hx Past Med/Social Hx: Reviewed Nursing Past Med/Soc Hx Patient Social History Alcohol Use: Denies Use Recreational Drug Use: Yes Drug of Choice: marijuana- used yesterday Smoking Status: Current Everyday Smoker Type Used: Cigarettes 2nd Hand Smoke Exposure: Yes Recent Foreign Travel: No Contact w/Someone Who Travel: No Recent Infectious Disease Expo: No Recent Hopitalizations: No Physical Abuse: No Sexual Abuse: No Mistreated: No Fear: No Seasonal Allergies Seasonal Allergies: No Past Medical History Surgeries: Yes Abdominal, Hysterectomy, Nephrectomy, Tonsillectomy, Tubal Ligation Respiratory: Yes Asthma, COPD, Emphysema Currently Using CPAP: No (Has CPAP for JUAN ANTONIO but not tolerating) Currently Using BIPAP: No Cardiac: Yes High Cholesterol, Hypertension Neurological: No 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 had recent axilla abscess) Recent Skin Changes Blood Disorders: Yes (HEP C) Adverse Reaction/Blood Tranf: No Physical Exam Vital Signs Vital Signs - First Documented 12/14/19 09:46 Temp 36.1 Pulse 80 Resp 24 B/P (MAP) 121/67 (85) Pulse Ox 95 Capillary Refill : Less Than 3 Seconds Height, Weight, BMI Height: 5'7.00" Weight: 224lbs. 0.0oz. 101.101756bk; 35.00 BMI Method:Actual General Appearance: No Apparent Distress, WD/WN, Obese HEENT: PERRL/EOMI, Pharynx Normal Neck: Full Range of Motion, Non Tender, Supple Respiratory: Chest Non Tender, No Accessory Muscle Use, No Respiratory Distress, Decreased Breath Sounds; No Rales; Rhonci; No Stridor; Wheezing Cardiovascular: Regular Rate, Rhythm, Normal Peripheral Pulses Extremity: Normal Capillary Refill, No Pedal Edema Neurologic/Psychiatric: Alert, Oriented x3, No Motor/Sensory Deficits, Normal Mood/Affect, radiator repairer II-XII Norm as Tested Skin: Normal Color, Warm/Dry Progress/Results/Core Measures Suspected Sepsis Recent Fever Within 48 Hours: No Infection Criteria Present: None New/Unexplained Altered Menta: No Sepsis Screen: No Definite Risk SIRS Temperature: Pulse: 80 Respiratory Rate: 24 Blood Pressure 121 /67 Mean: 85 Results/Orders Lab Results Laboratory Tests Test 12/14/19 09:48 12/14/19 09:55 Range/Units Glucometer 417 *H 70-110 MG/DL Urine Color YELLOW Urine Clarity CLEAR Urine pH 6.0 5-9 Urine Specific [place] <1.005 1.016-1.022 Urine Protein NEGATIVE NEGATIVE Urine Glucose (UA) 3+ H NEGATIVE Urine Ketones NEGATIVE NEGATIVE Urine Nitrite NEGATIVE NEGATIVE Urine Bilirubin NEGATIVE NEGATIVE Urine Urobilinogen 0.2 < = 1.0 MG/DL Urine Leukocyte Esterase NEGATIVE NEGATIVE Urine RBC (Auto) NEGATIVE NEGATIVE Urine RBC NONE /HPF Urine WBC NONE /HPF Urine Squamous Epithelial Cells RARE /HPF Urine Crystals NONE /LPF Urine Bacteria NONE /HPF Urine Casts NONE /LPF Urine Mucus NEGATIVE /LPF Urine Culture Indicated NO My Orders Orders - DIANE DELCID MD Accucheck Stat ONCE (12/14/19 09:55) Ua Culture If Indicated (12/14/19 09:55) Vital Signs/I&O 12/14/19 09:46 Temp 36.1 Pulse 80 Resp 24 B/P (MAP) 121/67 (85) Pulse Ox 95 Capillary Refill : Less Than 3 Seconds Blood Pressure Mean: 85 Point of Care Testing Finger Stick Blood Glucose: 417 Blood Glucose Action Taken: notified Dr delcid Progress Note : Progress Note Accu-Chek here was 417 and her insulin bolus was still infusing from her point. The urinalysis did not demonstrate any acute infection. She had no ketones. The rash as glucose showing up. Counseled patient on the results and advised to monitor her sugars at home. She may need another bolus of insulin but she refused IV for fluids and insulin here. She stated she would just drink extra water and use her insulin pump to try and do an additional bolus. Her basal rate of 1.6 units per hour may need to be adjusted but will leave this up to her pr imary provider. Departure Impression Primary Impression: Uncontrolled diabetes mellitus with hyperglycemia, with long-term current use of insulin Disposition: 01 HOME, SELF-CARE Condition: Stable Departure-Patient Inst. Decision time for Depature: 10:25 Referrals: [facility] (PCP) Primary Care Physician ABHILASH NICE APRN (Family) Primary Care Physician Patient Instructions: Hyperglycemia, Adult (DC), How to Prevent High Blood Sugar Emergencies in Diabetes Add. Discharge Instructions: Check with clinic as they may want you to adjust your Basal rate of glucose with the insulin pump to help bring down your sugar over all. Check your sugar every 2 hours for today while it is running high in case you need to still do another bolus of insulin. Make sure you are drinking enough water and watch your diet so that you do not eat too may carbohydrates or sugars today. All discharge instructions reviewed with patient and/or family. Voiced understanding. DIANE DELCID MD December 14, 2019 10:27
== END 2019-12-14 10:29 | disposition home or self-care (01) ==
LOC: EDUNIT# 09:39 → ER FS 09:40
DX: E11.65 Type 2 diabetes mellitus with hyperglycemia (principal); I10 Essential (primary) hypertension; E78.00 Pure hypercholesterolemia, unspecified; F41.9 Anxiety disorder, unspecified; F31.9 Bipolar disorder, unspecified; F17.210 Nicotine dependence, cigarettes, uncomplicated; Z79.4 Long term (current) use of insulin; Z85.528 Personal history of other malignant neoplasm of kidney; Z85.51 Personal history of malignant neoplasm of bladder
CPT/HCPCS: 81000; 82962

== ENCOUNTER → 2019-12-19 | Outpatient (CLI) | payer MEDICARE, MEDICAID ==
[~2019-12-19] MED LIST changes: +CATHETER FLUSH 10 ML SYR IV PRN; +HOLD METFORMIN - RECEIVED CONTRAST 20 ML VIAL IV SCH; +IOHEXOL 350 MG/ML 100 ML (OMNIPAQUE 350) VIAL IV ONE; +NS 100 ML (IVPB) BAG IV ONE
[2019-12-19 09:24] LABS: CALCIUM 9.1 MG/DL (8.5-10.1); CREATININE SERUM 1.02 MG/DL (0.60-1.30); POTASSIUM 4.5 MMOL/L (3.6-5.0)
--- NOTE | 2019-12-19 10:31 | Diagnostic Imaging Report ---
PROCEDURE: CT abdomen and pelvis with contrast. TECHNIQUE: Multiple contiguous axial images were obtained through the abdomen and pelvis after administration of intravenous contrast. Auto Exposure Controls were utilized during the CT exam to meet ALARA standards for radiation dose reduction. INDICATION: History of right-sided ureteral malignancy now with 2 days history of left flank pain. Exam compared with abdominal pelvic CT dated 03/10/2019. FINDINGS: The solitary left kidney is unobstructed, nonfocal and nonacute. No evidence for solid or cystic left renal mass. There is no hydroureteronephrosis. No perinephric or periureteric edema. The right kidney is surgically absent. The adrenal glands bilaterally are intact and normal. A previous right lower quadrant superficial abdominal wall fluid collection has resolved in the interim at that site of some mild chronic induration of the fat likely some mild scarring as the result of the prior collection. There is fatty infiltration of the liver more pronounced than on prior but no evidence for pancreatitis. No appreciable liver mass and no abnormal distention of the biliary ducts in this patient postcholecystectomy. The pancreas is negative. The spleen is negative. The aortoiliac and mesenteric vessels are patent and nonaneurysmal. There is no diverticulitis or other acute inflammatory process. No perienteric or pericolonic edema. No ascites, abscess, hematoma or acute fluid collection. No mesenteric or retroperitoneal lymphadenopathy and no suspicious lytic or sclerotic bony lesion. IMPRESSION: 1. Resolution of a previous abdominal wall fluid collection, the solitary unobstructed left kidney appeared normal as did the urinary bladder. No acute appearing abnormality or adverse development aside from progressive hepatic steatosis. 2. No findings suggestive of metastatic disease. Dictated by: Dictated on workstation # [id number]
== END ==
LOC: RAD FS 10:00
PROVIDERS: ATTEND Urology
DX: C66.1 Malignant neoplasm of right ureter (principal)
CPT/HCPCS: 36415; 74177; 80048

== ENCOUNTER 2020-01-23 08:56 | Emergency (ER) | payer MEDICARE, MEDICAID ==
[~2020-01-23] VITALS: Ht 170.2 cm; Wt 113.2 kg
[~2020-01-23 08:56] MED LIST changes: -CATHETER FLUSH 10 ML SYR IV PRN; -HOLD METFORMIN - RECEIVED CONTRAST 20 ML VIAL IV SCH; -IOHEXOL 350 MG/ML 100 ML (OMNIPAQUE 350) VIAL IV ONE; -NS 100 ML (IVPB) BAG IV ONE
[2020-01-23] MEDS ORDERED: ONDANSETRON 4 MG/2 ML (SDV) Z0FRAN ONE (09:10)
--- NOTE | 2020-01-23 09:11 | ED General ---
General Chief Complaint: Neurological Problems Stated Complaint: SEIZURE Source of Information: Patient History of Present Illness Date Seen by Provider: Jan 23, 2020 Time Seen by Provider: 09:06 Initial Comments 54-year-old female brought in by EMS. EMS was called out due to a reported seizure. Patient had a possible witnessed seizure for a partially 1 minute. Patient does not remember anything about this. She does report a prior seizure history in her remote past due to drug use. She denies any recent drug use. She denies any fevers chills. She was nauseated and vomited here at the ER upon arrival but no other systemic complaints. Allergies and Home Medications Allergies Coded Allergies: hydroxyzine (Verified Allergy, Unknown, 01/23/20) Home Medications Atorvastatin Calcium 10 Mg Tablet, 10 MG PO HS, (Reported) Benzonatate 100 Mg Capsule, 100 MG PO Q8H PRN for COUGH Prescribed by: DEBBIE BASS on 11/20/19 1636 Escitalopram Oxalate 10 Mg Tablet, 10 MG PO DAILY, (Reported) Ibuprofen 800 Mg Tablet, 800 MG PO Q8H PRN for PAIN-MILD, (Reported) Linagliptin 5 Mg Tablet, 5 MG PO DAILY, (Reported) Lisinopril 5 Mg Tablet, 5 MG PO DAILY, (Reported) Metformin HCl 750 Mg Tab.er.24h, 1,500 MG PO HS, (Reported) Nebivolol HCl 10 Mg Tab, 10 MG PO DAILY, (Reported) Olanzapine 10 Mg Tablet, 10 MG PO HS, (Reported) Tramadol HCl 50 Mg Tablet, 50 MG PO PRN, (Reported) Ziprasidone 80 Mg Cap, 160 MG PO HS, (Reported) Patient Home Medication List Home Medication List Reviewed: Yes Review of Systems Review of Systems Constitutional: No chills, No fever Respiratory: No cough, No short of breath Cardiovascular: No chest pain, No palpitations Gastrointestinal: No abdominal pain, No constipation, No diarrhea; nausea, vomiting Musculoskeletal: no symptoms reported Skin: no symptoms reported Psychiatric/Neurological: See HPI Past [id number]-Qvvrly-Skduib Hx Past Med/Social Hx: Reviewed Nursing Past Med/Soc Hx Patient Social History Drug of Choice: marijuana- used yesterday Type Used: Cigarettes 2nd Hand Smoke Exposure: Yes Recent Hopitalizations: No Seasonal Allergies Seasonal Allergies: No Past Medical History Surgeries: Yes Abdominal, Hysterectomy, Nephrectomy, Tonsillectomy, Tubal Ligation Respiratory: Yes Asthma, COPD, Emphysema Currently Using CPAP: No (Has CPAP for JUAN ANTONIO but not tolerating) Currently Using BIPAP: No Cardiac: Yes High Cholesterol, Hypertension 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 had recent axilla abscess) Recent Skin Changes Blood Disorders: Yes (HEP C) Adverse Reaction/Blood Tranf: No Physical Exam Vital Signs Vital Signs - First Documented 01/23/20 09:05 Temp 36.1 Pulse 71 Resp 16 B/P (MAP) 149/81 (103) Pulse Ox 97 O2 Delivery Nasal Cannula O2 Flow Rate 2.00 Capillary Refill : Height, Weight, BMI Height: 5'7.00" Weight: 224lbs. 0.0oz. 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 as Tested Skin: Normal Color, Warm/Dry Progress/Results/Core Measures Suspected Sepsis SIRS Temperature: Pulse: Respiratory Rate: Laboratory Tests 01/23/20 09:00: White Blood Count 6.1 Blood Pressure / Mean: Laboratory Tests 01/23/20 09:00: Creatinine 0.97, Platelet Count 114L, Total Bilirubin 0.2 Results/Orders Lab Results Laboratory Tests Test 01/23/20 09:00 01/23/20 09:45 Range/Units White Blood Count 6.1 4.3-11.0 10^3/uL Red Blood Count 4.01 L 4.35-5.85 10^6/uL Hemoglobin 11.2 L 11.5-16.0 G/DL Hematocrit 36 35-52 % Mean Corpuscular Volume 89 80-99 FL Mean Corpuscular Hemoglobin 28 25-34 PG Mean Corpuscular Hemoglobin Concent 32 32-36 G/DL Red Cell Distribution Width 17.4 H 10.0-14.5 % Platelet Count 114 L 130-400 10^3/uL Mean Platelet Volume 10.9 H 7.4-10.4 FL Neutrophils (%) (Auto) 49 42-75 % Lymphocytes (%) (Auto) 42 12-44 % Monocytes (%) (Auto) 6 0-12 % Eosinophils (%) (Auto) 3 0-10 % Basophils (%) (Auto) 1 0-10 % Neutrophils # (Auto) 3.0 1.8-7.8 X 10^3 Lymphocytes # (Auto) 2.5 1.0-4.0 X 10^3 Monocytes # (Auto) 0.3 0.0-1.0 X 10^3 Eosinophils # (Auto) 0.2 0.0-0.3 10^3/uL Basophils # (Auto) 0.1 0.0-0.1 10^3/uL Sodium Level 135 135-145 MMOL/L Potassium Level 4.2 3.6-5.0 MMOL/L Chloride Level 103 98-107 MMOL/L Carbon Dioxide Level 20 L 21-32 MMOL/L Anion Gap 12 5-14 MMOL/L Blood Urea Nitrogen 13 7-18 MG/DL Creatinine 0.97 0.60-1.30 MG/DL Estimat Glomerular Filtration Rate 60 BUN/Creatinine Ratio 13 Glucose Level 188 H 70-105 MG/DL Calcium Level 8.8 8.5-10.1 MG/DL Corrected Calcium 9.0 8.5-10.1 MG/DL Total Bilirubin 0.2 0.1-1.0 MG/DL Aspartate Amino Transf (AST/SGOT) 14 5-34 U/L Alanine Aminotransferase (ALT/SGPT) 17 0-55 U/L Alkaline Phosphatase 102 40-136 U/L Troponin I < 0.30 <0.30 NG/ML Total Protein 6.4 6.4-8.2 GM/DL Albumin 3.8 3.2-4.5 GM/DL Urine Color YELLOW Urine Clarity CLEAR Urine pH 5.5 5-9 Urine Specific Dumont 1.015 L 1.016-1.022 Urine Protein NEGATIVE NEGATIVE Urine Glucose (UA) NEGATIVE NEGATIVE Urine Ketones NEGATIVE NEGATIVE Urine Nitrite NEGATIVE NEGATIVE Urine Bilirubin NEGATIVE NEGATIVE Urine Urobilinogen 0.2 < = 1.0 MG/DL Urine Leukocyte Esterase NEGATIVE NEGATIVE Urine RBC (Auto) NEGATIVE NEGATIVE Urine RBC NONE /HPF Urine WBC NONE /HPF Urine Squamous Epithelial Cells 0-2 /HPF Urine Crystals NONE /LPF Urine Bacteria TRACE /HPF Urine Casts NONE /LPF Urine Mucus NEGATIVE /LPF Urine Culture Indicated NO Urine Opiates Screen NEGATIVE NEGATIVE Urine Oxycodone Screen NEGATIVE NEGATIVE Urine Methadone Screen NEGATIVE NEGATIVE Urine Propoxyphene Screen NEGATIVE NEGATIVE Urine Barbiturates Screen NEGATIVE NEGATIVE Ur Tricyclic Antidepressants Screen NEGATIVE NEGATIVE Urine Phencyclidine Screen NEGATIVE NEGATIVE Urine Amphetamines Screen NEGATIVE NEGATIVE Urine Methamphetamines Screen NEGATIVE NEGATIVE Urine Benzodiazepines Screen NEGATIVE NEGATIVE Urine Cocaine Screen NEGATIVE NEGATIVE Urine Cannabinoids Screen POSITIVE H NEGATIVE My Orders Orders - BASS,DEBBIE L DO Ondansetron Injection (Zofran Injectio (01/23/20 09:10) Ct Head Wo (01/23/20 09:12) Cbc With Automated Diff (01/23/20 09:12) Comprehensive Metabolic Panel (01/23/20 09:12) Drug Screen Stat (Urine) (01/23/20 09:12) Thyroid Stimulating Hormone (01/23/20 09:12) Ua Culture If Indicated (01/23/20 09:12) Crp Fs (01/23/20 09:12) Ondansetron Injection (Zofran Injectio (01/23/20 09:15) Troponin I Fs (01/23/20 10:06) Medications Given in ED Current Medications Medications Dose Ordered Sig/Yoselyn Route Start Time Stop Time Status Last Admin Dose Admin Ondansetron HCl 4 mg ONCE ONCE IVP 01/23/20 09:15 01/23/20 09:16 DC 01/23/20 09:18 4 MG Vital Signs/I&O 01/23/20 09:05 Temp 36.1 Pulse 71 Resp 16 B/P (MAP) 149/81 (103) Pulse Ox 97 O2 Delivery Nasal Cannula O2 Flow Rate 2.00 Capillary Refill : Progress Note : Time: 10:57 Progress Note Patient with no seizure activity while here in the ER, no further vomiting. I did discuss needed with her to follow-up with her primary care provider for further outpatient evaluation with a remote history of seizures. Patient is stable and discharged Diagnostic Imaging Diagonstic Imaging: CT Comments [facility] [place], [place] NAME: DOMINIQUE PINEDA [facility] REC#: [id number] PT STATUS: REG ER : 1965 PHYSICIAN: DEBBIE BASS DO ADMIT DATE: 01/23/20/ER FS Draft Date of Exam:01/23/20 CT HEAD WO PROCEDURE: CT head without contrast. TECHNIQUE: Multiple contiguous axial images were obtained through the brain without the use of intravenous contrast. Auto Exposure Controls were utilized during the CT exam to meet ALARA standards for radiation dose reduction. INDICATION: Seizure. No prior studies are available for comparison. FINDINGS: Ventricles and sulci are within normal limits. No sulcal effacement or midline shift is detected. No acute intra-axial or extra-axial hemorrhage is detected. Cisterns are patent. Visualized paranasal sinuses are clear. IMPRESSION: No acute intracranial process is detected. Reviewed: Reviewed Night [facility] Study Departure Impression Primary Impression: Observed seizure-like activity Disposition: HOME, SELF-CARE Condition: Stable Departure-Patient Inst. Referrals: [facility] (PCP) Primary Care Physician ABHILASH NICE APRN (Family) Primary Care Physician Patient Instructions: Seizures, Adult (DC) Add. Discharge Instructions: Follow-up with your primary care provider for further evaluation All discharge instructions reviewed with patient and/or family. Voiced understanding. DEBBIE BASS DO Jan 23, 2020 09:11
[2020-01-23] MEDS ORDERED: ONDANSETRON 4 MG/2 ML (SDV) Z0FRAN IVP ONE (09:15)
[2020-01-23 09:23] LABS: BASOPHILS % (AUTO) 1 % (0-10); EOSINOPHILS % (AUTO) 3 % (0-10); HEMATOCRIT 36 % (35-52); HEMOGLOBIN 11.2 G/DL (11.5-16.0); LYMPHOCYTES % (AUTO) 42 % (12-44); MEAN CORPUSCULAR HEMOGLOBIN 28 PG (25-34); MEAN CORPUSCULAR HGB CONC 32 G/DL (32-36); MEAN CORPUSCULAR VOLUME 89 FL (80-99); MEAN PLATELET VOLUME 10.9 FL (7.4-10.4); MONOCYTES % (AUTO) 6 % (0-12); NEUTROPHILS % (AUTO) 49 % (42-75); PLATELET COUNT 114 10^3/uL (130-400); RED CELL DISTRIBUTION WIDTH 17.4 % (10.0-14.5); WHITE BLOOD COUNT 6.1 10^3/uL (4.3-11.0)
[2020-01-23 09:24] LABS: BASOPHILS # (AUTO) 0.1 10^3/uL (0.0-0.1); EOSINOPHILS # (AUTO) 0.2 10^3/uL (0.0-0.3); LYMPHOCYTES # (AUTO) 2.5 X 10^3 (1.0-4.0); MONOCYTES # (AUTO) 0.3 X 10^3 (0.0-1.0)
[2020-01-23 09:35] LABS: CREATININE SERUM 0.97 MG/DL (0.60-1.30); POTASSIUM 4.2 MMOL/L (3.6-5.0)
[2020-01-23 09:36] LABS: ALBUMIN 3.8 GM/DL (3.2-4.5); BILIRUBIN,TOTAL 0.2 MG/DL (0.1-1.0); CALCIUM 8.8 MG/DL (8.5-10.1); TOTAL PROTEIN 6.4 GM/DL (6.4-8.2)
--- NOTE | 2020-01-23 09:42 | Diagnostic Imaging Report ---
PROCEDURE: CT head without contrast. TECHNIQUE: Multiple contiguous axial images were obtained through the brain without the use of intravenous contrast. Auto Exposure Controls were utilized during the CT exam to meet ALARA standards for radiation dose reduction. INDICATION: Seizure. No prior studies are available for comparison. FINDINGS: Ventricles and sulci are within normal limits. No sulcal effacement or midline shift is detected. No acute intra-axial or extra-axial hemorrhage is detected. Cisterns are patent. Visualized paranasal sinuses are clear. IMPRESSION: No acute intracranial process is detected. Dictated by: Dictated on workstation # [id number]
[2020-01-23 09:58] LABS: BILIRUBIN,URINE NEGATIVE (NEGATIVE); CLARITY,URINE CLEAR; COLOR,URINE YELLOW; GLUCOSE, URINE (UA) NEGATIVE (NEGATIVE); KETONES,URINE NEGATIVE (NEGATIVE); NITRITE,URINE NEGATIVE (NEGATIVE); PH,URINE 5.5 (5-9); PROTEIN,URINE NEGATIVE (NEGATIVE)
[2020-01-23 09:59] LABS: BACTERIA,URINE TRACE /HPF; LEUKOCYTE ESTERASE ,URINE NEGATIVE (NEGATIVE); SQUAMOUS EPITHELIAL CELL,UR 0-2 /HPF
[2020-01-23 10:04] LABS: AMPHETAMINE SCREEN, URINE NEGATIVE (NEGATIVE); BARBITURATE SCREEN URINE NEGATIVE (NEGATIVE); BENZODIAZEPINES SCREEN URINE NEGATIVE (NEGATIVE); CANNABINOID SCREEN, URINE POSITIVE (NEGATIVE); COCAINE SCREEN URINE NEGATIVE (NEGATIVE); METHADONE STAT NEGATIVE (NEGATIVE); METHAMPHETAMINE SCREEN URINE S NEGATIVE (NEGATIVE); OPIATE SCREEN URINE NEGATIVE (NEGATIVE); OXYCODONE STAT NEGATIVE (NEGATIVE); PROPOXYPHENE STAT NEGATIVE (NEGATIVE); TRICYCLIC ANTIDEPRESSANTS SCRE NEGATIVE (NEGATIVE)
[2020-01-23 10:59] VITALS: BP 115/69
--- OUTSIDE RECORDS SUMMARY | 2020-01-23 12:48 | XMS REPORT | Continuity of Care Document ---
Demographics Preferred Language Unknown Marital Status Unknown Congregation Affiliation Unknown Race Unknown Ethnic Group Unknown Author Organization Unknown Address Unknown Phone Unavailable Allergies Active Description Code Type Severity Reaction Onset Reported/Identified Relationship to Patient Clinical Status Yes No Known Medication Allergies Drug N/A N/A Yes NO KNOWN DRUG ALLERGIES UNKNOWN UNKNOWN Yes No Known Drug Allergies [id number] Drug Allergy Unknown N/A 05/06/2019 Medications Medication [...] IRVIN APRN V15 .82 TOBACCOISM 07/05/2010 [employer] RECEIVING CLERK, HEATHER 278 .01 OBESITY MORBID 07/05/2010 [employer] RECEIVING CLERK, HEATHER 380 .10 Infective Otitis Externa, Unspecified 07/05/2010 [employer] RECEIVING CLERK, HEATHER V15 .82 TOBACCOISM 07/05/2010 [facility] [employer] RECEIVING CLERK, HEATHER 278 .01 OBESITY MORBID 07/05/2010 [employer] RECEIVING CLERK, HEATHER 380 .10 Infective Otitis Externa, Unspecified 07/05/2010 [employer] RECEIVING CLERK, HEATHER V15 .82 TOBACCOISM 07/05/2010 [facility] [employer] RECEIVING CLERK, HEATHER 278 .01 OBESITY MORBID 07/05/2010 [facility] [employer] RECEIVING CLERK, HEATHER 380 .10 Infective Otitis Externa, Unspecified 07/05/2010 [facility] RECEIVING CLERK, HEATHER V15 .82 TOBACCOISM 07/05/2010 [facility] [employer] RECEIVING CLERK, HEATHER 278 .01 OBESITY MORBID 07/05/2010 [employer] [employer] RECEIVING CLERK, HEATHER 380 .10 Infective Otitis Externa, Unspecified 07/05/2010 [employer] RECEIVING CLERK, HEATHER V15 .82 TOBACCOISM 07/05/2010 GOVIND W[employer]HOU[employer] RECEIVING CLERK, MARIANNA 278.01 OBESITY MORBID 07/05/2010 G[employer] W[employer]HOU[employer] RECEIVING CLERK, MARIANNA 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, Unspecified 07/05/2010 GOVIND W[employer]HOUSE RECEIVING CLERK, MARIANNA V15.82 TOBACCOISM 07/05/2010 G[employer]IND W[employer]HOU[employer] RECEIVING CLERK, MARIANNA 278.01 OBESITY MORBID 07/05/2010 G[employer]IND W[employer]HOU[employer] RECEIVING CLERK, MARIANNA 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, Unspecified 07/05/2010 G[employer]IND W[employer]HOU[employer] RECEIVING CLERK, MARIANNA V15.82 TOBACCOISM 07/07/2010 [employer] [employer] RECEIVING CLERK, HEATHER 280 .9 Anemia Hypochromic / Microcytic 07/07/2010 [employer] RECEIVING CLERK, HEATHER 796 .2 Prehypertension 07/07/2010 [employer] RECEIVING CLERK, HEATHER V04 .81 Influenza Vaccine 07/07/2010 [employer] RECEIVING CLERK, HEATHER V68 .89 Encounters For Other Specified Administrative Purpose 07/07/2010 [employer] RECEIVING CLERK, HEATHER V72 .31 Routine Pelvic Exam 07/07/2010 [employer] RECEIVING CLERK, HEATHER 280 .9 Anemia Hypochromic / Microcytic 07/07/2010 [employer] [employer] RECEIVING CLERK, HEATHER 796 .2 Prehypertension 07/07/2010 [facility] WAREHOUSE RECEIVING CLERK, HEATHER V04 .81 Influenza Vaccine 07/07/2010 [employer] [employer] RECEIVING CLERK, HEATHER V68 .89 Encounters For Other Specified Administrative Purpose 07/07/2010 [employer] RECEIVING CLERK, HEATHER V72 .31 Routine Pelvic Exam 07/07/2010 [employer] [employer] RECEIVING CLERK, HEATHER 280 .9 Anemia Hypochromic / Microcytic 07/07/2010 [employer] RECEIVING CLERK, HEATHER 796 .2 Prehypertension 07/07/2010 [employer] RECEIVING CLERK, HEATHER V04 .81 Influenza Vaccine 07/07/2010 [employer] RECEIVING CLERK, HEATHER V68 .89 Encounters For Other Specified Administrative Purpose 07/07/2010 [employer] RECEIVING CLERK, HEATHER V72 .31 Routine Pelvic Exam 07/07/2010 [employer] RECEIVING CLERK, HEATHER 280 .9 Anemia Hypochromic / Microcytic 07/07/2010 [employer] RECEIVING CLERK, HEATHER 796 .2 Prehypertension 07/07/2010 [facility] WAREHOUSE RECEIVING CLERK, HEATHER V04 .81 Influenza Vaccine 07/07/2010 [employer] RECEIVING CLERK, HEATHER V68 .89 Encounters For Other Specified Administrative Purpose 07/07/2010 [employer] RECEIVING CLERK, HEATHER V72 .31 Routine Pelvic Exam 07/07/2010 [facility] WAREHOUSE RECEIVING CLERK, HEATHER 280 .9 Anemia Hypochromic / Microcytic 07/07/2010 [facility] [employer] RECEIVING CLERK, HEATHER 796 .2 Prehypertension 07/07/2010 [facility] [employer] RECEIVING CLERK, HEATHER V04 .81 Influenza Vaccine 07/07/2010 [employer] RECEIVING CLERK, HEATHER V68 .89 Encounters For Other Specified Administrative Purpose 07/07/2010 [employer] RECEIVING CLERK, HEATHER V72 .31 Routine Pelvic Exam 07/07/2010 [employer] [employer] RECEIVING CLERK, HEATHER 280 .9 Anemia Hypochromic / Microcytic 07/07/2010 [employer] RECEIVING CLERK, HEATHER 796 .2 Prehypertension 07/07/2010 [employer] RECEIVING CLERK, HEATHER V04 .81 Influenza Vaccine 07/07/2010 [employer] RECEIVING CLERK, HEATHER V68 .89 Encounters For Other Specified Administrative Purpose 07/07/2010 [employer] RECEIVING CLERK, HEATHER V72 .31 Routine Pelvic Exam 07/07/2010 [employer] RECEIVING CLERK, HEATHER 280 .9 Anemia Hypochromic / Microcytic 07/07/2010 [employer] RECEIVING CLERK, HEATHER 796 .2 Prehypertension 07/07/2010 [facility] [employer] RECEIVING CLERK, HEATHER V04 .81 Influenza Vaccine 07/07/2010 [employer] RECEIVING CLERK, HEATHER V68 .89 Encounters For Other Specified Administrative Purpose 07/07/2010 [employer] RECEIVING CLERK, HEATHER V72 .31 Routine Pelvic Exam 07/07/2010 G[employer]IND W[employer]HOU[employer] RECEIVING CLERK MARIANNA 28 0.9 Anemia Hypochromic / Microcytic 07/07/2010 [employer] RECEIVING CLERK MARIANNA 79 6.2 Prehypertension 07/07/2010 G[employer] W[employer]HOU[employer] RECEIVING CLERK MARIANNA V04.81 Influenza Vaccine 07/07/2010 [employer]IND W[employer] RECEIVING CLERK MARIANNA V68.89 Encounters For Other Specified Administrative Purpose 07/07/2010 GOVIND WAREHOUSE RECEIVING CLERKENE V72.31 Routine Pelvic Exam 07/07/2010 GOVIND WAREHOUSE RECEIVING CLERKSOFYAMARIANNA 28 0.9 Anemia Hypochromic / Microcytic 07/07/2010 GOVIND WAREHOUSE RECEIVING CLERKENE 79 6.2 Prehypertension 07/07/2010 [employer] W[employer] RECEIVING CLERK MARIANNA V04.81 Influenza Vaccine 07/07/2010 G[employer] W[employer]HOU[employer] RECEIVING CLERK MARIANNA V68.89 Encounters For Other Specified Administrative Purpose 07/07/2010 G[employer] W[employer]HOU[employer] RECEIVING CLERK MARIANNA V72.31 Routine Pelvic Exam 10/20/2010 [facility] WAREHOUSE RECEIVING CLERK, HEATHER 112 .1 Candidiasis, Of Vulva And Vagina 10/20/2010 [facility] WAREHOUSE RECEIVING CLERK, HEATHER 599 .0 Uti 10/20/2010 [facility] WAREHOUSE RECEIVING CLERK, HEATHER 112 .1 Candidiasis, Of Vulva And Vagina 10/20/2010 [facility] WAREHOUSE RECEIVING CLERK, HEATHER 599 .0 Uti 10/20/2010 [facility] WAREHOUSE RECEIVING CLERK, HEATHER 112 .1 Candidiasis, Of Vulva And Vagina 10/20/2010 [employer] RECEIVING CLERK, HEATHER 599 .0 Uti 10/20/2010 [facility] WAREHOUSE RECEIVING CLERK, HEATHER 112 .1 Candidiasis, Of Vulva And Vagina 10/20/2010 [facility] WAREHOUSE RECEIVING CLERK, HEATHER 599 .0 Uti 10/20/2010 [facility] WAREHOUSE RECEIVING CLERK, HEATHER 112 .1 Candidiasis, Of Vulva And Vagina 10/20/2010 [employer] RECEIVING CLERK, HEATHER 599 .0 Uti 10/20/2010 [employer] RECEIVING CLERK, HEATHER 112 .1 Candidiasis, Of Vulva And Vagina 10/20/2010 [employer] RECEIVING CLERK, HEATHER 599 .0 Uti 10/20/2010 [employer] RECEIVING CLERK, HEATHER 112 .1 Candidiasis, Of Vulva And Vagina 10/20/2010 [employer] RECEIVING CLERK, HEATHER 599 .0 Uti 10/20/2010 [employer] RECEIVING CLERK, MARIANNA 11 2.1 Candidiasis, Of Vulva And Vagina 10/20/2010 [employer]HOU[employer] RECEIVING CLERK, MARIANNA 59 9.0 Uti 10/20/2010 [employer] RECEIVING CLERK, MARIANNA 11 2.1 Candidiasis, Of Vulva And Vagina 10/20/2010 [employer] RECEIVING CLERK, MARIANNA 59 9.0 Uti 10/24/2010 [employer] RECEIVING CLERK, HEATHER 250 .00 DIABETES MELLITUS TYPE 2 10/24/2010 [employer] RECEIVING CLERK, HEATHER 466 .0 Bronchitis, Acute 10/24/2010 [facility] W[employer]HOUSE RECEIVING CLERK, HEATHER 496 PULMONARY OBSTRUCTIVE DISORDERS 10/24/2010 [employer] RECEIVING CLERK, HEATHER 250 .00 DIABETES MELLITUS TYPE 2 10/24/2010 [employer] RECEIVING CLERK, HEATHER 466 .0 Bronchitis, Acute 10/24/2010 [employer] RECEIVING CLERK, HEATHER 496 PULMONARY OBSTRUCTIVE DISORDERS 10/24/2010 [employer] RECEIVING CLERK, HEATHER 250 .00 DIABETES MELLITUS TYPE 2 10/24/2010 [employer] RECEIVING CLERK, HEATHER 466 .0 Bronchitis, Acute 10/24/2010 [employer] RECEIVING CLERK, HEATHER 496 PULMONARY OBSTRUCTIVE DISORDERS 10/24/2010 [employer] RECEIVING CLERK, HEATHER 250 .00 DIABETES MELLITUS TYPE 2 10/24/2010 [employer] RECEIVING CLERK, HEATHER 466 .0 Bronchitis, Acute 10/24/2010 [employer] RECEIVING CLERK, HEATHER 496 PULMONARY OBSTRUCTIVE DISORDERS 10/24/2010 [employer] RECEIVING CLERK, HEATHER 250 .00 DIABETES MELLITUS TYPE 2 10/24/2010 [employer] RECEIVING CLERK, HEATHER 466 .0 Bronchitis, Acute 10/24/2010 [employer] RECEIVING CLERK, HEATHER 496 PULMONARY OBSTRUCTIVE DISORDERS 10/24/2010 [employer] RECEIVING CLERK, HEATHER 250 .00 DIABETES MELLITUS TYPE 2 10/24/2010 [employer] RECEIVING CLERK, HEATHER 466 .0 Bronchitis, Acute 10/24/2010 [employer] RECEIVING CLERK, HEATHER 496 PULMONARY OBSTRUCTIVE DISORDERS 10/24/2010 [employer] RECEIVING CLERK, HEATHER 250 .00 DIABETES MELLITUS TYPE 2 10/24/2010 [employer] RECEIVING CLERK, HEATHER 466 .0 Bronchitis, Acute 10/24/2010 [employer] RECEIVING CLERK, HEATHER 496 PULMONARY OBSTRUCTIVE DISORDERS 10/24/2010 [employer] RECEIVING CLERK, MARIANNA 250.00 DIABETES MELLITUS TYPE 2 10/24/2010 [employer] RECEIVING CLERK, MARIANNA 46 6.0 Bronchitis, Acute 10/24/2010 [employer] RECEIVING CLERK, MARIANNA 49 6 PULMONARY OBSTRUCTIVE DISORDERS 10/24/2010 [employer] RECEIVING CLERK, MARIANNA 250.00 DIABETES MELLITUS TYPE 2 10/24/2010 [employer] RECEIVING CLERK, MARIANNA 46 6.0 Bronchitis, Acute 10/24/2010 [employer]HOU[employer] RECEIVING CLERK, MARIANNA 49 6 PULMONARY OBSTRUCTIVE DISORDERS 05/12/2011 [facility] WAREHOUSE RECEIVING CLERK, HEATHER 703 .0 Ingrowing Nail 05/12/2011 [facility] WAREHOUSE RECEIVING CLERK, HEATHER 726 .91 EXOSTOSIS OF UNSPECIFIED SITE 05/12/2011 [facility] WAREHOUSE RECEIVING CLERK, HEATHER 703 .0 Ingrowing Nail 05/12/2011 [facility] [employer] RECEIVING CLERK, HEATHER 726 .91 EXOSTOSIS OF UNSPECIFIED SITE 05/12/2011 [facility] WAREHOUSE RECEIVING CLERK, HEATHER 703 .0 Ingrowing Nail 05/12/2011 [employer] [employer] RECEIVING CLERK, HEATHER 726 .91 EXOSTOSIS OF UNSPECIFIED SITE 05/12/2011 [facility] WAREHOUSE RECEIVING CLERK, HEATHER 703 .0 Ingrowing Nail 05/12/2011 [employer] RECEIVING CLERK, HEATHER 726 .91 EXOSTOSIS OF UNSPECIFIED SITE 05/12/2011 [employer] RECEIVING CLERK, HEATHER 703 .0 Ingrowing Nail 05/12/2011 [employer] RECEIVING CLERK, HEATHER 726 .91 EXOSTOSIS OF UNSPECIFIED SITE 05/12/2011 [employer] RECEIVING CLERK, HEATHER 703 .0 Ingrowing Nail 05/12/2011 [employer] RECEIVING CLERK, HEATHER 726 .91 EXOSTOSIS OF UNSPECIFIED SITE 05/12/2011 [employer] RECEIVING CLERK, HEATHER 703 .0 Ingrowing Nail 05/12/2011 [employer] RECEIVING CLERK, HEATHER 726 .91 EXOSTOSIS OF UNSPECIFIED SITE 05/12/2011 [employer] RECEIVING CLERK, MARIANNA 70 3.0 Ingrowing Nail 05/12/2011 [employer] RECEIVING CLERK, MARIANNA 726.91 EXOSTOSIS OF UNSPECIFIED SITE 05/12/2011 [employer] RECEIVING CLERK, MARIANNA 70 3.0 Ingrowing Nail 05/12/2011 [employer] RECEIVING CLERK, MARIANNA 726.91 EXOSTOSIS OF UNSPECIFIED SITE 06/02/2011 [employer] RECEIVING CLERK, HEATHER 078 .12 Plantar Wart 06/02/2011 [employer] RECEIVING CLERK, HEATHER 078 .12 Plantar Wart 06/02/2011 [employer] RECEIVING CLERK, HEATHER 078 .12 Plantar Wart 06/02/2011 [employer] RECEIVING CLERK, HEATHER 078 .12 Plantar Wart 06/02/2011 [employer] RECEIVING CLERK, HEATHER 078 .12 Plantar Wart 06/02/2011 [employer] RECEIVING CLERK, HEATHER 078 .12 Plantar Wart 06/02/2011 [employer] RECEIVING CLERK, HEATHER 078 .12 Plantar Wart 06/02/2011 [employer] [employer] RECEIVING CLERK, MARIANNA 078.12 Plantar Wart 06/02/2011 [employer] RECEIVING CLERK, MARIANNA 078.12 Plantar Wart 07/05/2011 [employer] RECEIVING CLERK, HEATHER 466 .0 ACUTE BRONCHITIS 07/05/2011 [employer] RECEIVING CLERK, HEATHER 466 .0 ACUTE BRONCHITIS 07/05/2011 [employer] RECEIVING CLERK, HEATHER 466 .0 ACUTE BRONCHITIS 07/05/2011 [employer] RECEIVING CLERK, HEATHER 466 .0 ACUTE BRONCHITIS 07/05/2011 [employer] RECEIVING CLERK, HEATHER 466 .0 ACUTE BRONCHITIS 07/05/2011 [employer] RECEIVING CLERK, HEATHER 466 .0 ACUTE BRONCHITIS 07/05/2011 [employer] [employer] RECEIVING CLERK, HEATHER 466 .0 ACUTE BRONCHITIS 07/05/2011 [employer] [employer] RECEIVING CLERK, MARIANNA 46 6.0 ACUTE BRONCHITIS 07/05/2011 [employer] RECEIVING CLERK, MARIANNA 46 6.0 ACUTE BRONCHITIS 11/20/2011 [employer] [employer] RECEIVING CLERK, HEATHER 682 .9 CELLULITIS 11/20/2011 [employer] RECEIVING CLERK, HEATHER 682 .9 CELLULITIS 11/20/2011 [employer] RECEIVING CLERK, HEATHER 682 .9 CELLULITIS 11/20/2011 [employer] RECEIVING CLERK, HEATHER 682 .9 CELLULITIS 11/20/2011 [employer] RECEIVING CLERK, HEATHER 682 .9 CELLULITIS 11/20/2011 [employer] RECEIVING CLERK, HEATHER 682 .9 CELLULITIS 11/20/2011 [employer] RECEIVING CLERK, HEATHER 682 .9 CELLULITIS 11/20/2011 [employer] RECEIVING CLERK, MARIANNA 68 2.9 CELLULITIS 11/20/2011 [employer] RECEIVING CLERK, MARIANNA 68 2.9 CELLULITIS 12/22/2011 [employer] RECEIVING CLERK, HEATHER 401 .1 ESSENTIAL HYPERTENSION BENIGN 12/22/2011 [employer] RECEIVING CLERK, HEATHER 401 .1 ESSENTIAL HYPERTENSION BENIGN 12/22/2011 [employer] RECEIVING CLERK, HEATHER 401 .1 ESSENTIAL HYPERTENSION BENIGN 12/22/2011 [employer] RECEIVING CLERK, HEATHER 401 .1 ESSENTIAL HYPERTENSION BENIGN 12/22/2011 [facility] WAREHOUSE RECEIVING CLERK, HEATHER 401 .1 ESSENTIAL HYPERTENSION BENIGN 12/22/2011 [facility] WAREHOUSE RECEIVING CLERK, HEATHER 401 .1 ESSENTIAL HYPERTENSION BENIGN 12/22/2011 [facility] WAREHOUSE RECEIVING CLERK, HEATHER 401 .1 ESSENTIAL HYPERTENSION BENIGN 12/22/2011 [employer] RECEIVING CLERK, MARIANNA 40 1.1 ESSENTIAL HYPERTENSION BENIGN 12/22/2011 [employer] RECEIVING CLERK, MARIANNA 40 1.1 ESSENTIAL HYPERTENSION BENIGN 04/09/2012 [facility] KYLE, HEATHER 272 .2 HYPERLIPIDEMIA 04/09/2012 [facility] WAREHOUSE RECEIVING CLERKHEATHER Sunshine V04 .81 Need For Prophylactic Vaccination And Inoculation Against Influenza 04/09/2012 [facility] HEATHER WRIGHT 272 .2 HYPERLIPIDEMIA 04/09/2012 [facility] HEATHER WRIGHT V04 .81 Need For Prophylactic Vaccination And Inoculation Against Influenza 04/09/2012 BRAN[facility]E HEATHER WRIGHT 272 .2 HYPERLIPIDEMIA 04/09/2012 [facility] WAREHOUSE RECEIVING CLERK, HEATHER V04 .81 Need For Prophylactic Vaccination And Inoculation Against Influenza 04/09/2012 BR[facility]E HEATHER WRIGHT 272 .2 HYPERLIPIDEMIA 04/09/2012 [facility] WAREHOUSE RECEIVING CLERKHEATHER Sunshine V04 .81 Need For Prophylactic Vaccination And Inoculation Against Influenza 04/09/2012 BRANDEE HEATHER WRIGHT 272 .2 HYPERLIPIDEMIA 04/09/2012 [facility] HEATHER WRIGHT V04 .81 Need For Prophylactic Vaccination And Inoculation Against Influenza 04/09/2012 BRAN[facility]E HEATHER WRIGHT 272 .2 HYPERLIPIDEMIA 04/09/2012 [employer] RECEIVING CLERK, HEATHER V04 .81 Need For Prophylactic Vaccination And Inoculation Against Influenza 04/09/2012 [employer] RECEIVING CLERK, HEATHER 272 .2 HYPERLIPIDEMIA 04/09/2012 [employer] RECEIVING CLERK, HEATHER V04 .81 Need For Prophylactic Vaccination And Inoculation Against Influenza 04/09/2012 [employer]IND [employer] RECEIVING CLERKMARIANNA Sunshine 27 2.2 HYPERLIPIDEMIA 04/09/2012 G[employer]IND W[employer] RECEIVING CLERKMARIANNA Sunshine V04.81 Need For Prophylactic Vaccination And Inoculation Agai nst Influenza 04/09/2012 GOVIND W[employer]HOU[employer] RECEIVING CLERKMARIANNA Sunshine 27 2.2 HYPERLIPIDEMIA 04/09/2012 [employer] [employer] RECEIVING CLERKMARIANNA V04.81 Need For Prophylactic Vaccination And Inoculation Agai nst Influenza 05/14/2012 [employer] RECEIVING CLERK, HEATHER 682 .9 Cellulitis/abscess 05/14/2012 [employer] [employer] RECEIVING CLERK, HEATHER 682 .9 Cellulitis/abscess 05/14/2012 [facility] [employer] RECEIVING CLERK, HEATHER 682 .9 Cellulitis/abscess 05/14/2012 [employer] [employer] RECEIVING CLERK, HEATHER 682 .9 Cellulitis/abscess 05/14/2012 [employer] [employer] RECEIVING CLERK, HEATHER 682 .9 Cellulitis/abscess 05/14/2012 [employer] [employer] RECEIVING CLERK, HEATHER 682 .9 Cellulitis/abscess 05/14/2012 [employer] [employer] RECEIVING CLERK, HEATHER 682 .9 Cellulitis/abscess 05/14/2012 [employer] [employer] RECEIVING CLERKMARIANNA Sunshine 68 2.9 Cellulitis/abscess 05/14/2012 MARIANNA FAUST APRN 68 2.9 Cellulitis/abscess 06/24/2012 [employer] [employer] RECEIVING CLERK, HEATHER 112 .1 Candidiasis, Of Vulva And Vagina 06/24/2012 [employer] RECEIVING CLERK, HEATHER 112 .1 Candidiasis, Of Vulva And Vagina 06/24/2012 [employer] [employer] RECEIVING CLERKHEATHER 112 .1 Candidiasis, Of Vulva And Vagina 06/24/2012 [employer] RECEIVING CLERK, HEATHER 112 .1 Candidiasis, Of Vulva And Vagina 06/24/2012 [employer] RECEIVING CLERK, HEATHER 112 .1 Candidiasis, Of Vulva And Vagina 06/24/2012 [employer] [employer] RECEIVING CLERKHEATHER 112 .1 Candidiasis, Of Vulva And Vagina 06/24/2012 [employer] RECEIVING CLERK, HEATHER 112 .1 Candidiasis, Of Vulva And Vagina 06/24/2012 [employer] RECEIVING CLERK MARIANNA 11 2.1 Candidiasis, Of Vulva And Vagina 06/24/2012 G[employer]IND W[employer]HOUSE RECEIVING CLERK, MARIANNA 11 2.1 Candidiasis, Of Vulva And Vagina 06/28/2012 [employer] RECEIVING CLERK, HEATHER 110 .1 Onychomycosis 06/28/2012 [employer] RECEIVING CLERK, HEATHER 703 .8 Other Specified Diseases Of Nail 06/28/2012 [employer] RECEIVING CLERK, HEATHER 110 .1 Onychomycosis 06/28/2012 [employer] RECEIVING CLERK, HEATHER 703 .8 Other Specified Diseases Of Nail 06/28/2012 [employer] RECEIVING CLERK, HEATHER 110 .1 Onychomycosis 06/28/2012 [employer] RECEIVING CLERK, HEATHER 703 .8 Other Specified Diseases Of Nail 06/28/2012 [employer] RECEIVING CLERK, HEATHER 110 .1 Onychomycosis 06/28/2012 [employer] RECEIVING CLERK, HEATHER 703 .8 Other Specified Diseases Of Nail 06/28/2012 [employer] RECEIVING CLERK, HEATHER 110 .1 Onychomycosis 06/28/2012 [employer] RECEIVING CLERK, HEATHER 703 .8 Other Specified Diseases Of Nail 06/28/2012 [employer] RECEIVING CLERK, HEATHER 110 .1 Onychomycosis 06/28/2012 [employer] RECEIVING CLERK, HEATHER 703 .8 Other Specified Diseases Of Nail 06/28/2012 [employer] [employer] RECEIVING CLERK, HEATHER 110 .1 Onychomycosis 06/28/2012 [employer] RECEIVING CLERK, HEATHER 703 .8 Other Specified Diseases Of Nail 06/28/2012 [employer] W[employer] RECEIVING CLERK MARIANNA 11 0.1 Onychomycosis 06/28/2012 G[employer]IND W[employer]HOU[employer] RECEIVING CLERK, MARIANNA 70 3.8 Other Specified Diseases Of Nail 06/28/2012 [employer] W[employer]HOU[employer] RECEIVING CLERK MARIANNA 11 0.1 Onychomycosis 06/28/2012 G[employer]IND W[employer]HOU[employer] RECEIVING CLERK, MARIANNA 70 3.8 Other Specified Diseases Of Nail 08/21/2012 [employer] RECEIVING CLERK, HEATHER 682 .9 Cellulitis/abscess 08/21/2012 [employer] RECEIVING CLERK, HEATHER V72 .31 Gynecological Exam 08/21/2012 [employer] RECEIVING CLERK, HEATHER 682 .9 Cellulitis/abscess 08/21/2012 [employer] RECEIVING CLERK, HEATHER V72 .31 Gynecological Exam 08/21/2012 [employer] RECEIVING CLERK, HEATHER 682 .9 Cellulitis/abscess 08/21/2012 [employer] [employer] RECEIVING CLERK, HEATHER V72 .31 Gynecological Exam 08/21/2012 [employer] RECEIVING CLERK, HEATHER 682 .9 Cellulitis/abscess 08/21/2012 [employer] [employer] RECEIVING CLERK, HEATHER V72 .31 Gynecological Exam 08/21/2012 [employer] [employer] RECEIVING CLERK, HEATHER 682 .9 Cellulitis/abscess 08/21/2012 [employer] [employer] RECEIVING CLERK, HEATHER V72 .31 Gynecological Exam 08/21/2012 [employer]E [employer] RECEIVING CLERK, HEATHER 682 .9 Cellulitis/abscess 08/21/2012 [employer] [employer] RECEIVING CLERK, HEATHER V72 .31 Gynecological Exam 08/21/2012 [employer] [employer] RECEIVING CLERK, HEATHER 682 .9 Cellulitis/abscess 08/21/2012 [employer] [employer] RECEIVING CLERK, HEATHER V72 .31 Gynecological Exam 08/21/2012 [facility] [employer] RECEIVING CLERK, MARIANNA 68 2.9 Cellulitis/abscess 08/21/2012 [facility] [employer] RECEIVING CLERK, MARIANNA V72.31 Gynecological Exam 08/21/2012 [facility] [employer] RECEIVING CLERK, MARIANNA 68 2.9 Cellulitis/abscess 08/21/2012 [facility] [employer] RECEIVING CLERK, MARIANNA V72.31 Gynecological Exam 10/08/2012 [facility]ARE[facility]SE RECEIVING CLERK, HEATHER 466 .0 Bronchitis, Acute 10/08/2012 [facility] [employer] RECEIVING CLERK, HEATHER 466 .0 Bronchitis, Acute 10/08/2012 [facility] WAREHOUSE RECEIVING CLERK, HEATHER 466 .0 Bronchitis, Acute 10/08/2012 [facility] [employer] RECEIVING CLERK, HEATHER 466 .0 Bronchitis, Acute 10/08/2012 [facility] [employer] RECEIVING CLERK, HEATHER 466 .0 Bronchitis, Acute 10/08/2012 [facility] [employer] RECEIVING CLERK, HEATHER 466 .0 Bronchitis, Acute 10/08/2012 [facility] [employer] RECEIVING CLERK, HEATHER 466 .0 Bronchitis, Acute 10/08/2012 [facility] [employer] RECEIVING CLERK, MARIANNA 46 6.0 Bronchitis, Acute 10/08/2012 [facility] [employer] RECEIVING CLERK, MARIANNA 46 6.0 Bronchitis, Acute 12/05/2012 [facility] WAREHOUSE RECEIVING CLERK, HEATHER 599 .0 Uti 12/05/2012 [facility] [employer] RECEIVING CLERK, HEATHER 599 .0 Uti 12/05/2012 [facility] [employer] RECEIVING CLERK, HEATHER 599 .0 Uti 12/05/2012 [facility] [employer] RECEIVING CLERK, HEATHER 599 .0 Uti 12/05/2012 [facility] [employer] RECEIVING CLERK, HEATHER 599 .0 Uti 12/05/2012 [facility] [employer] RECEIVING CLERK, HEATHER 599 .0 Uti 12/05/2012 [facility] [employer] RECEIVING CLERK, HEATHER 599 .0 Uti 12/05/2012 [facility] [employer] RECEIVING CLERK, MARIANNA 59 9.0 Uti 12/05/2012 [facility] [employer] RECEIVING CLERK, MARIANNA 59 9.0 Uti 05/21/2013 [facility] [employer] RECEIVING CLERK, HEATHER 285 .9 ANEMIA, UNSPECIFIED 05/21/2013 [facility] [employer] RECEIVING CLERK, HEATHER 285 .9 ANEMIA, UNSPECIFIED 05/21/2013 [facility] [employer] RECEIVING CLERK, HEATHER 285 .9 ANEMIA, UNSPECIFIED 05/21/2013 [facility] [employer] RECEIVING CLERK, HEATHER 285 .9 ANEMIA, UNSPECIFIED 05/21/2013 [facility] [employer] RECEIVING CLERK, HEATHER 285 .9 ANEMIA, UNSPECIFIED 05/21/2013 [facility] [employer] RECEIVING CLERK, HEATHER 285 .9 ANEMIA, UNSPECIFIED 05/21/2013 [facility] [employer] RECEIVING CLERK, HEATHER 285 .9 ANEMIA, UNSPECIFIED 05/21/2013 [facility] [employer] RECEIVING CLERK, MARIANNA 28 5.9 ANEMIA, UNSPECIFIED 08/07/2013 [facility] [employer] RECEIVING CLERK, HEATHER 682 .5 CELLULITIS AND ABSCESS OF BUTTOCK 08/07/2013 [facility] [employer] RECEIVING CLERK, HEATHER 682 .5 CELLULITIS AND ABSCESS OF BUTTOCK 08/07/2013 [facility] [employer] RECEIVING CLERK, HEATHER 682 .5 CELLULITIS AND ABSCESS OF BUTTOCK 08/07/2013 [facility] [employer] RECEIVING CLERK, HEATHER 682 .5 CELLULITIS AND ABSCESS OF BUTTOCK 08/07/2013 [facility] [employer] RECEIVING CLERK, HEATHER 682 .5 CELLULITIS AND ABSCESS OF BUTTOCK 08/07/2013 [facility] [employer] RECEIVING CLERK, HEATHER 682 .5 CELLULITIS AND ABSCESS OF BUTTOCK 08/07/2013 [employer] RECEIVING CLERK, HEATHER 682 .5 CELLULITIS AND ABSCESS OF BUTTOCK 12/12/2013 [employer] RECEIVING CLERK, HEATHER 250 .02 DIABETES MELLITUS WITHOUT MENTION [...] Ot I10 ESSENTIAL (PRIMARY) HYPERTENSION 11/01/2018 DIANE DELICD MD, Ot J44.1 CHRONIC OBSTRUCTIVE PULMONARY DISEASE [...] 2 DIABETES MELLITUS WITHOUT COMPLIC 11/12/2018 JAME CLUVER DO T Ot F12.10 CANNABIS ABUSE, UNCOMPLICATED [...] GENERALIZED ABDOMINAL PAIN 01/02/2019 JERI BATEMAN, MANASA Funse Ot R10.84 GENERALIZED ABDOMINAL PAIN 01/02/2019 [place] DOJAZIEL Ot B37.49 OTHER UROGENITAL CANDIDIASIS 01/02/2019 WONG DO, JAZIEL Ot E11.9 TYPE 2 DIABETES MELLITUS WITHOUT COMPLIC 01/02/2019 WONG DO, JAZIEL Ot I10 ESSENTIAL (PRIMARY) HYPERTENSION 01/02/2019 [place] , JAZIEL Ot J45.909 UNSPECIFIED ASTHMA, UNCOMPLICATED [...] JAZIEL Ot Z98.51 TUBAL LIGATION STATUS 01/04/2019 [place] DO, JAZIEL Ot E11.9 TYPE 2 DIABETES MELLITUS WITHOUT COMPLIC 01/04/2019 [place] DO, JAZIEL Ot I10 ESSENTIAL (PRIMARY) HYPERTENSION 01/04/2019 [place] DO, JAZIEL Ot J45.909 UNSPECIFIED ASTHMA, UNCOMPLICATED [...] OF BOTH CERVIX AND UTER 01/06/2019 JAZIEL OWNG DO Ot Z98.51 TUBAL LIGATION STATUS 01/07/2019 [...] Z90 .5 ACQUIRED ABSENCE OF KIDNEY 01/08/2019 POAL WEBB DO Ot Z90.710 ACQUIRED ABSENCE OF [...] Z87.442 PERSONAL HISTORY OF URINARY CALCULI 01/10/2019 AJZIEL WONG DO Ot Z90.5 ACQUIRED ABSENCE OF [...] [place] DO Ot Z79.8 99 OTHER WELDING MACHINE OPERATOR THERMIT (CURRENT) DRUG THERAPY 03/24/2019 MIKAYLA DE LOS [...] [place] DO Ot Z79.8 99 OTHER LONG-TERM (CURRENT) DRUG THERAPY 03/27/2019 MIKAYLA DE LOS [...] 04/14/2019 LUCÍA FUENTES MD Ot Z79. 84 WELDING MACHINE OPERATOR THERMIT (CURRENT) USE OF ORAL HYPOGLYC 04/14/2019 LUCÍA [...] 04/16/2019 LUCÍA FUENTES MD, Ot Z79. 84 WELDING MACHINE OPERATOR THERMIT (CURRENT) USE OF ORAL HYPOGLYC 04/16/2019 LUCÍA [...] [place] DO Ot Z79.8 99 OTHER LONG-TERM (CURRENT) DRUG THERAPY 06/02/2019 MIKAYLA DE LOS [...] DO Ot K64.8 OTHER HEMORRHOIDS 06/02/2019 MIKAYLA DEL [place] S[place]OS DO Ot Z12.1 1 ENCOUNTER FOR SCREENING FOR MALIGNANT NE 06/02/2019 MIKAYLA DE LOS SANTOS DO Ot Z68.3 6 BODY MASS INDEX (BMI) 36.0-36.9, ADULT 06/02/2019 MIKAYLA DE LOS SANTOS DO Ot Z79.1 WELDING MACHINE OPERATOR THERMIT (CURRENT) USE OF NON-STEROIDAL 06/02/2019 MIKAYLA DE LOS SANTOS DO Ot Z79.8 99 OTHER LONG-TERM (CURRENT) DRUG THERAPY 06/02/2019 MIKAYLA DE LOS [...] MIKAYLA DE LOS SANTOS DO, Ot Z79.1 LONG-TERM (CURRENT) USE OF NON-STEROIDAL 06/05/2019 MIKAYLA DE LOS SANTOS DO Ot Z79.8 99 OTHER WELDING MACHINE OPERATOR THERMIT (CURRENT) DRUG THERAPY 06/05/2019 MIKAYLA DE LOS [...] UNCOMPLICATED 06/13/2019 JAZIEL WONG DO Ot Z79.84 WELDING MACHINE OPERATOR THERMIT (CURRENT) USE OF ORAL HYPOGLYC 06/13/2019 MARVIN [...] UNCOMPLICATED 06/17/2019 JAZIEL WONG DO Ot Z79.84 LONG-TERM (CURRENT) USE OF ORAL HYPOGLYC 06/17/2019 JAZIEL [...] SMO 06/18/2019 MAKSIM RICCI MD, Ot Z79.84 WELDING MACHINE OPERATOR THERMIT (CURRENT) USE OF ORAL HYPOGLYC 06/18/2019 MAKSIM RICCI MD Ot Z85.528 PERSONAL HISTORY OF OTHER MALIGNANT NEOP 06/18/2019 MASKIM RICCI MD Ot Z87.442 PERSONAL HISTORY OF [...] 06/21/2019 MARK BOJORQUEZ MD Ot Z79. 84 WELDING MACHINE OPERATOR THERMIT (CURRENT) USE OF ORAL HYPOGLYC 06/21/2019 MARK [...] 06/25/2019 MARK BOJORQUEZ MD Ot Z79. 84 WELDING MACHINE OPERATOR THERMIT (CURRENT) USE OF ORAL HYPOGLYC 06/25/2019 MARK BOJORQUEZ MD Ot Z85.528 PERSONAL HISTORY OF OTHER MALIGNANT NEOP 06/25/2019 MARK BOJORQUEZ MD Ot Z90. 5 ACQUIRED ABSENCE OF KIDNEY 06/25/2019 MRAK BOJORQUEZ MD Ot Z90.710 ACQUIRED ABSENCE OF [...] 06/27/2019 MARK BOJORQUEZ MD Ot Z79. 84 LONG-TERM (CURRENT) USE OF ORAL HYPOGLYC 06/27/2019 MARK [...] TOBACCO SMO 06/27/2019 ROVENSTINE DOEDNA Ot Z79.84 WELDING MACHINE OPERATOR THERMIT (CURRENT) USE OF ORAL HYPOGLYC 06/27/2019 ROVENSTINE [...] SMO 07/01/2019 ROVENSTINE EDNA BLANCA Ot Z79.84 WELDING MACHINE OPERATOR THERMIT (CURRENT) USE OF ORAL HYPOGLYC 07/01/2019 JAKEVENSTINE [...] 07/06/2019 BASS DO, DEBBIE L Ot Z79.4 LONG-TERM (CURRENT) USE OF INSULIN 07/06/2019 BASS DO, [...] 07/08/2019 BASS DO, DEBBIE L Ot Z79.4 LONG-TERM (CURRENT) USE OF INSULIN 07/08/2019 BASS DO, [...] HYPERTENSION 10/19/2019 JOSE HOOVER MD, Ot Z79.84 WELDING MACHINE OPERATOR THERMIT (CURRENT) USE OF ORAL HYPOGLYC 10/19/2019 JOSE [...] HYPERTENSION 10/22/2019 JOSE HOOVER MD Ot Z79.84 WELDING MACHINE OPERATOR THERMIT (CURRENT) USE OF ORAL HYPOGLYC 10/22/2019 JOSE [...] BASS DO, DEBBIE L Ot Z79.8 4 LONG-TERM (CURRENT) USE OF ORAL HYPOGLYC 11/20/2019 BASS [...] Ot J43.9 EMPHYSEMA, UNSPECIFIED 11/24/2019 BASS DO, DEBBIE L Ot J45.9 09 UNSPECIFIED ASTHMA, UNCOMPLICATED 11/24/2019 BASS DO, DEBBIE L Ot R06.0 2 SHORTNESS OF BREATH 11/24/2019 BASS DO, DEBBIE L Ot Z77.2 2 CNTCT W AND EXPSR TO ENVIRON TOBACCO SMO 11/24/2019 BASS DO, DEBBIE L Ot Z79.8 4 LONG-TERM (CURRENT) USE OF ORAL HYPOGLYC 11/24/2019 BASS DO, DEBBIE L Ot Z85.5 1 PERSONAL HISTORY OF MALIGNANT NEOPLASM O 11/24/2019 BASS DO, DEBBIE L Ot Z85.5 28 PERSONAL HISTORY OF OTHER MALIGNANT NEOP 11/24/2019 BASS DO, DEBBIE L Ot Z90.7 10 ACQUIRED ABSENCE OF BOTH CERVIX AND UTER 11/24/2019 BASS DO, DEBBIE L Ot Z98.5 1 TUBAL LIGATION STATUS 12/03/2019 TEX, CHANDRAKANT FURNITURE UPHOLSTERY MECHANIC Ot M25.46 1 EFFUSION, RIGHT KNEE 12/03/2019 TEX, CHANDRAKANT FURNITURE UPHOLSTERY MECHANIC Ot W19.XX XA UNSPECIFIED FALL, INITIAL ENCOUNTER 12/07/2019 TEX, CHANDRAKANT FURNITURE UPHOLSTERY MECHANIC Ot M25.46 1 EFFUSION, RIGHT KNEE 12/07/2019 TEX, CHANDRAKANT FURNITURE UPHOLSTERY MECHANIC Ot W19.XX XA UNSPECIFIED FALL, INITIAL ENCOUNTER 12/14/2019 DIANE DELCID MD Ot E11.6 5 TYPE 2 DIABETES MELLITUS WITH HYPERGLYCE 12/14/2019 DIANE DELCID MD, Ot E78.0 0 PURE HYPERCHOLESTEROLEMIA, UNSPECIFIED 12/14/2019 DIANE DELCID MD, Ot F17.2 10 NICOTINE DEPENDENCE, CIGARETTES, UNCOMPL 12/14/2019 DIANE DELCID MD, Ot F31.9 BIPOLAR DISORDER, UNSPECIFIED 12/14/2019 DIANE DELCID MD, Ot F41.9 ANXIETY DISORDER, UNSPECIFIED 12/14/2019 DIANE DELCID MD Ot I10 ESSENTIAL (PRIMARY) HYPERTENSION 12/14/2019 DIANE DELCID MD, Ot R73.9 HYPERGLYCEMIA, UNSPECIFIED 12/14/2019 DIANE DELCID MD, Ot Z79.4 WELDING MACHINE OPERATOR THERMIT (CURRENT) USE OF INSULIN 12/14/2019 DIANE DELCID MD, Ot Z85.5 1 PERSONAL HISTORY OF MALIGNANT NEOPLASM O 12/14/2019 DIANE DELCID MD, Ot Z85.5 28 PERSONAL HISTORY OF OTHER MALIGNANT NEOP 12/16/2019 DIANE DELCID MD, Ot E11.6 5 TYPE 2 DIABETES MELLITUS WITH HYPERGLYCE 12/16/2019 DIANE DELCID MD, Ot E78.0 0 PURE HYPERCHOLESTEROLEMIA, UNSPECIFIED 12/16/2019 DIANE DELCID MD, Ot F17.2 10 NICOTINE DEPENDENCE, CIGARETTES, UNCOMPL 12/16/2019 DIANE DELCID MD, Ot F31.9 BIPOLAR DISORDER, UNSPECIFIED 12/16/2019 DIANE DELCID MD, Ot F41.9 ANXIETY DISORDER, UNSPECIFIED 12/16/2019 DIANE DELCID MD, Ot I10 ESSENTIAL (PRIMARY) HYPERTENSION 12/16/2019 DIANE DELCID MD, Ot R73.9 HYPERGLYCEMIA, UNSPECIFIED 12/16/2019 DIANE DELCID MD, Ot Z79.4 LONG-TERM (CURRENT) USE OF INSULIN 12/16/2019 DIANE DELCID MD, Ot Z85.5 1 PERSONAL HISTORY OF MALIGNANT NEOPLASM O 12/16/2019 DIANE DELCID MD, Ot Z85.5 28 PERSONAL HISTORY OF OTHER MALIGNANT NEOP 12/18/2019 CHANDRAKANT NICE Ot M25.46 1 EFFUSION, RIGHT KNEE 12/18/2019 CHANDRAKANT NICE Ot W19.XX XA UNSPECIFIED FALL, INITIAL ENCOUNTER 12/30/2019 DANIEL SAHNI MD Ot C66 .1 MALIGNANT NEOPLASM OF RIGHT URETER 01/07/2020 DANIEL SAHNI MD Ot C66 .1 MALIGNANT NEOPLASM OF RIGHT URETER Procedures Code [place] [address] GLUCOSE 05/08/2013 96920 HEMO GLOBIN A1C 05/08/2013 G0008 ADMI N FEE (MEDICARE) INFLUENZA 05/14/2013 30600 CBC - CBC WITH DIFF - LC 05/15/2013 72553 COMP - COMPREHENSIVE PANEL - LC 05/15/2013 44753 LIPI D - LIPID PANEL - LC 05/15/2013 66041 TSH - TSH - LC 05/15/2013 11380 MALB - MICROALBUMIN - LC 05/15/2013 02774 GLUCOSE 08/11/2013 93932 HEMO GLOBIN A1C 08/11/2013 62595 CBC WITH DIFF 08/12/2013 29232 GLUCOSE 10/07/2013 4000F TOBA ASSEMBLY ASSOCIATE USE TXMNT COUNSELING 10/13/2013 70737 PULS E OXIMETRY 12/12/2013 A4614 PEAK FLOW 12/12/2013 69353 GLUCOSE 12/12/2013 26905 HEMO GLOBIN A1C 12/12/2013 Pulmonary Pulmonary Function Test 01/13/2014 A4614 PEAK FLOW 02/10/2014 23465 PULS E OXIMETRY 02/10/2014 26269 GLUCOSE 02/10/2014 Endocrino Endocrinology 02/13/2014 Pulmonary Pulmonology, Pulmonology 03/13/2014 79418 PULS E OXIMETRY 04/14/2014 A4614 PEAK FLOW [...] CHLORIDE 106 mmol/L 98-110 CO2 25 mmol/L 22- GFR ESTIMATED NOT AFR/AM 59 GFR ESTIMATED [...] 7-25 CREATININE 0.90 mg/dL 0.50-1.05 eGFR NON-AFR. BHUTANESE 74 mL/min/1.73m2 > OR = 60 eGFR [...] anisocytosis detection by light microscopy [facility] Blood dohle body detection by light microscopy [facility] Blood microcytes detection by light microscopy [facility] Comprehensive metabolic panel - 11/06/18 18:25 Serum [...] - 11/06/18 18:55 Bacterial blood culture NG [facility] Influenza virus A and B antigen detectio n - 11/06/18 18:59 FLU RESULT NEGATIVE FOR INFLUENZA A AND B ANTIGENS BY IA [facility] Bacterial blood culture - 11/06/18 19:08 [...] culture - 01/04/19 19:30 Bacterial urine culture [id number] NRG COLONY COUNT 30,000 CFU/ML NRG Complete [...] culture - 01/04/19 20:35 Bacterial urine culture [id number] NRG COLONY COUNT . NRG FTX;REPORTABLE <10,000 [...] TEXT ENTRY 2 CONTAMINATION WITH SKIN REGINALD NR FREE TEXT ENTRY 3 NO SUSCEPTIBILITY PERFORMED [facility] Complete blood count (CBC) with automate d [...] 7-25 CREATININE 1.23 mg/dL 0.50-1.05 eGFR NON-AFR. BHUTANESE 50 mL/min/1.73m2 > OR = 60 eGFR [...] 11/20/19 15:42 PROBNP FS 113.4 pg/mL <75.0 VITAMIN D, 25-H - 12/10/19 15:19 VITAMIN D,25-OH,TOTAL,IA 24 ng/mL 30-10 0 Capillary blood glucose measurement by g lucometer (mass/volume) - 12/14/19 09:48 Capillary blood glucose measurement by glucometer (mas s/volume) 417 mg/dL 70-110 Complete urinalysis with reflex to cultu re - 12/14/19 09:55 Urine color determination YELLOW NRG Urine clarity [...] urinalysis with reflex to culture NO NRG Whole blood basic metabolic panel - 12/02 09:00 Serum or plasma sodium measurement (moles/volume) 137 mmol/L 135-145 Serum or plasma potassium measurement (moles/volume) 4.5 mmol/L 3.6-5.0 Serum or plasma chloride measurement (moles/volume) 98 mmol/L 98-107 Carbon dioxide 26 mmol/L 21-32 Serum or plasma anion gap determination (moles/volume) 13 mmol/L 5-14 Serum or plasma urea nitrogen measurement (mass/volume ) 12 mg/dL 7-18 Serum or plasma creatinine measurement (mass/volume) 1.02 mg/dL 0.60-1.30 Serum or plasma urea nitrogen/creatinine mass ratio 12 NRG Serum or plasma creatinine measurement w ith calculation of estimated glomerular filtration rate 57 NRG Serum or plasma glucose measurement (mass/volume) 313 mg/dL 70-105 Serum or plasma calcium measurement (mass/volume) 9.1 mg/dL 8.5-10.1 Complete blood count (CBC) with automate d white blood cell (WBC) differential - 01/23/20 09:00 Blood leukocytes automated count (number/volume) 6.1 10*3/uL 4.3-11.0 Blood erythrocytes automated count (number/volume) 4.01 10*6/uL 4.35-5.85 Venous blood hemoglobin measurement (mass/volume) 11.2 g/dL 11.5-16.0 Blood hematocrit (volume fraction) 36 % 35-52 Automated erythrocyte mean corpuscular volume 89 [ foz_us] 80-99 Automated erythrocyte mean corpuscular h emoglobin (mass per erythrocyte) 28 pg 25-34 Automated erythrocyte mean corpuscular h emoglobin concentration measurement (mass/volume) 32 g/dL 32-36 Automated erythrocyte distribution width ratio 17. 4 % 10.0- 14.5 Automated blood platelet count (count/volume) 114 10*3/uL 130-400 Automated blood platelet mean volume measurement 10.9 [foz_us] 7.4-10.4 Automated blood neutrophils/100 leukocytes 49 % 42-75 Automated blood lymphocytes/100 leukocytes 42 % 12-44 Blood monocytes/100 leukocytes 6 % 0-12 Automated blood eosinophils/100 leukocytes 3 % 0-10 Automated blood basophils/100 leukocytes 1 % 0-10 Blood neutrophils automated count (number/volume) 3.0 10*3 1.8-7.8 Blood lymphocytes automated count (number/volume) 2.5 10*3 1.0-4.0 Blood monocytes automated count (number/volume) 0. 3 10*3 0.0-1.0 Automated eosinophil count 0.2 10*3/uL 0 .0-0.3 Automated blood basophil count (count/volume) 0.1 10*3/uL 0.0-0.1 Comprehensive metabolic panel - 01/23/20 09:00 Serum or plasma sodium measurement (moles/volume) 135 mmol/L 135-145 Serum or plasma potassium measurement (moles/volume) 4.2 mmol/L 3.6-5.0 Serum or plasma chloride measurement (moles/volume) 103 mmol/L 98-107 Carbon dioxide 20 mmol/L 21-32 Serum or plasma anion gap determination (moles/volume) 12 mmol/L 5-14 Serum or plasma urea nitrogen measurement (mass/volume ) 13 mg/dL 7-18 Serum or plasma creatinine measurement (mass/volume) 0.97 mg/dL 0.60-1.30 Serum or plasma urea nitrogen/creatinine mass ratio 13 NRG Serum or plasma creatinine measurement w ith calculation of estimated glomerular filtration rate 60 NRG Serum or plasma glucose measurement (mass/volume) 188 mg/dL 70-105 Serum or plasma calcium measurement (mass/volume) 8.8 mg/dL 8.5-10.1 Serum or plasma total bilirubin measurement (mass/volu me) 0.2 mg/dL 0.1-1.0 Serum or plasma alkaline phosphatase alessandra surement (enzymatic activity/volume) 102 U/L 40-136 Serum or plasma aspartate aminotransfera se measurement (enzymatic activity/volume) 14 U/L 5-34 Serum or plasma alanine aminotransferase measurement (enzymatic activity/volume) 17 U/L 0-55 Serum or plasma protein measurement (mass/volume) 6.4 g/dL 6.4-8.2 Serum or plasma albumin measurement (mass/volume) 3.8 g/dL 3.2-4.5 CALCIUM CORRECTED 9.0 mg/dL 8.5-10.1 TROPONIN I FS - 01/23/20 09:00 TROPONIN I FS < 0.30 <0.30 Complete urinalysis with reflex to cultu re - 01/23/20 09:45 Urine color determination YELLOW NRG Urine clarity determination CLEAR NR G Urine pH measurement by test strip 5.5 5-9 Specific gravity of urine by test strip 1.015 1.016-1.022 Urine protein assay by test strip, [...] urinalysis with reflex to culture NO NRG Encounters ACCT No. Visit Date/Time Discharge Status Pt. Type Provider Facility Loc./Unit Complaint [id number] 10/30/2018 17:22:00 Document Registration [id number] 10/30/2018 17:22:00 Document Registration [id number] 04/26/2019 03:58:14 ACT Document Registration [id number] 12/26/2019 13:48:00 ACT Unknown Halle Sahni MD [id number] 12/19/2019 10:00:00 23:59:59 CLS Outpatient DANIEL SAHNI MD [facility] RAD FS URETERAL CANCER RIGHT [id number] 12/14/2019 09:40:00 10:29:00 DIS Emergency DIANE DELCID MD [facility] ER FS BS IS 510 [id number] 12/01/2019 15:01:00 23:59:59 CLS Outpatient CHANDRAKANT NICE [facility] RAD FS ACUTE PAIN OF RT KNEE [id number] 11/20/2019 15:21:00 17:05:00 DIS Emergency DEBBIE BASS DO [facility] ER FS SOA [id number] 10/19/2019 11:52:00 12:40:00 DIS Emergency JOSE HOOVER MD [facility] ER FS PSYCH EVAL [id number] 07/06/2019 17:56:00 20:32:00 DIS Emergency BASS DEBBIE BLANCA [facility] ER FS HIGH BLOOD SUGAR [id number] 06/27/2019 21:51:00 22:23:00 DIS Emergency ROVENSTINE DOEDNA L [facility] ER FS SOB,N,V [id number] 06/21/2019 15:26:00 18:47:00 DIS Emergency MARYELLEN BATEMAN, MARK Witt [facility] ER FS BLOOD SUGAR 415; SOB [id number] 06/17/2019 23:44:00 00:22:00 DIS Emergency KEIRY BATEMAN, MAKSIM Hanna [facility] FS SORE THROAT [id number] 06/12/2019 20:58:00 00:00:00 DIS Emergency JAZIEL WONG DO [facility] ER FS PSYCH EVAL [id number] 06/02/2019 08:49:00 12:33:00 DIS Outpatient MIKAYLA DE LOS SANTOS DO [facility] ENDO HX POLYPS [id number] 05/06/2019 13:20:00 13:25:00 DIS Outpatient MIKAYLA DE LOS SANTOS DO [facility] PREOP COLONOSCOPY [id number] 04/14/2019 13:32:00 17:50:00 DIS Emergency GINA BATEMAN, LUCÍA Serrato [facility] ER FS SOB; CHEST PAIN [id number] 03/24/2019 10:00:00 12:45:00 DIS Outpatient MIKAYLA DE LOS SANTOS DO [facility] ENDO SCREENING [id number] 03/22/2019 20:27:00 21:50:00 DIS Emergency DEBBIE BASS DO [facility] ER FS SOA [id number] 03/18/2019 05:38:00 23:59:59 CLS Outpatient MIKAYLA DE LOS SANTOS DO [facility] PREOP COLONOSCOPY [id number] 03/07/2019 21:51:00 22:35:00 DIS Emergency LASHAUN BATEMAN, RABIA Neri [facility] ER FS PANIC ATTACK [id number] 01/11/2019 15:06:00 17:55:00 DIS Emergency KALI BLANCADEBBIE [facility] ER FS PT STATES SHE NEEDS A M ENTKS HEALTH SCREENING [id number] 01/10/2019 19:58:00 21:53:00 DIS Emergency DIANE DELCID MD [facility] ER FS SEVERE RT SIDE ABD PAIN ;SOB [id number] 01/08/2019 17:11:00 20:40:00 DIS Emergency POLA WEBB DO [facility] ER FS CHEST PAIN, SOB [id number] 01/06/2019 21:51:00 01:32:00 DIS Emergency POLA WEBB DO [facility] ER FS MENTAL HEALTH EVAL [id number] 01/05/2019 19:25:00 20:17:00 DIS Emergency TARIK GEORGE DO [facility] ER FS RIGHT SIDE PAIN [id number] 01/04/2019 19:17:00 21:13:00 DIS Emergency JAZIEL WONG DO [facility] ER FS RIGHT SIDE PAIN [id number] 01/02/2019 04:59:00 05:55:00 DIS Emergency JAZIEL WONG DO [facility] ER FS RIGHT SIDE PAIN [id number] 12/21/2018 17:59:00 19:50:00 DIS Emergency DIANE DELCID MD [facility] ER FS SOB,VAGINAL PAIN [id number] 12/14/2018 14:21:00 16:45:00 DIS Emergency LUCÍA FUENTES MD [facility] ER FS ABD PAIN,VAGINAL PAIN F ROM CATHETER [id number] 12/12/2018 13:47:00 23:59:59 CLS Outpatient JERI BATEMAN, MANASA Funes [facility] RAD FS R10.84 GEN ABD PAIN [id number] 11/29/2018 08:34:00 16:55:00 DIS Emergency DIANE DELCID MD [facility] ER FS URINARY RETENTION [id number] 11/14/2018 21:43:00 23:23:00 DIS Emergency MARY BATEMAN, DANIEL de dios [facility] ER FS BLOOD SUGAR ISSUES [id number] 11/06/2018 17:40:00 01:30:00 DIS Emergency JAME CULVER DO [facility] ER FS SOB,CHEST PAIN [id number] 10/30/2018 20:30:00 00:33:00 DIS Emergency DIANE DELCID MD [facility] ER FS SOB, HIGH BLOOD SUGAR, ABD SORE [id number] 10/16/2018 22:53:00 00:25:00 DIS Emergency DIANE DELCID MD [facility] ER FS CHEST PAINS [id number] 10/13/2018 17:02:00 20:45:00 DIS Emergency DANIEL HERNANDEZ MD [facility] ER FS CHEST PAIN,SOB [id number] 09/18/2018 20:56:00 07:30:00 DIS Emergency NOEL DICK DO [facility] ER FS HIGH BLOOD SUGAR, SOB [id number] 09/12/2018 14:20:00 15:56:00 DIS Emergency DANIEL HERNANDEZ MD [facility] ER FS FALL; RT HIP/MI WRIST INJ [id number] 01/23/2020 09:24:00 Document Registration [id number] 12/24/2018 10:40:00 9 23:59:59 DIS Outpatient LINDA SAHNI [facility]STOP[facility] RAD [id number] 08/26/2018 07:22:56 9 23:59:59 DIS Outpatient SORIA, DANAY [facility] LAB [id number] 05/30/2018 08:41:17 8 23:59:59 DIS Outpatient LINDA SAHNI [facility] RAD [id number] 04/25/2018 12:24:37 8 23:59:59 CLS Preadmit LINDA SAHNI [facility] CHRISTOPHER Surgery ops [id number] 04/02/2019 11:54:39 Document Registration [id number] 11/13/2018 14:34:59 Document Registration [id number] 08/06/2018 13:35:03 Document Registration [id number] 07/05/2018 09:35:35 ACT V AMADOU ROBERT [facility]STOPHER MS [id number] 06/18/2018 06:13:13 Inpatient LINDA SAHNI [facility]STOPHER MS ops [id number] 06/30/2019 16:00:00 07/04/2019 10:30 :00 DIS Inpatient Lianna Davis [facility] enter ICU [id number] 06/30/2019 17:27:54 Document Registration [id number] 12/07/2019 13:00:00 12/07/2019 23:59: 59 CLS Outpatient BRENDA DIEZ [facility] [id number] 12/10/2019 08:30:00 Document Registration [id number] 11/17/2019 16:00:00 Document Registration [id number] 11/06/2019 09:15:00 Document Registration [id number] 08/04/2019 15:15:00 Document Registration [id number] 05/23/2019 07:00:00 Document Registration [id number] 01/30/2019 09:40:00 Document Registration [id number] 12/30/2018 16:30:00 Document Registration [id number] 12/30/2018 14:39:00 Document Registration [id number] 12/18/2018 12:00:00 Document Registration [id number] 10/07/2018 13:15:00 Document Registration [id number] 09/25/2018 09:45:00 Document Registration [id number] 04/14/2014 08:59:00 04/14/2014 11:05: 00 DIS Outpatient HEATHER IRVIN APRN [id number] 02/10/2014 09:57:00 02/10/2014 23:59: 59 CLS Outpatient HEATHER IRVIN APRN [id number] 02/10/2014 09:57:00 02/10/2014 23:59: 59 CLS Outpatient HEATHER IRVIN APRN [id number] 12/12/2013 10:38:00 12/12/2013 23:59: 59 CLS Outpatient HEATHER IRVIN APRN [id number] 10/07/2013 14:37:00 10/13/2013 20:05: 00 DIS Outpatient HEATHER IRVIN APRN [id number] 10/07/2013 14:37:00 10/07/2013 23:59: 59 CLS Outpatient HEATHER IRVIN APRN [id number] 08/11/2013 10:11:00 08/11/2013 13:49: 00 DIS Outpatient HEATHER IRVIN APRN [id number] 05/08/2013 09:56:00 05/08/2013 23:59:5 9 CLS Outpatient GOVIND WRIGHTMARIANNA [id number] 01/08/2013 08:25:00 01/08/2013 23:59:5 9 CLS Outpatient GOVIND KYLEMARIANNA [id number] 10/15/2014 15:34:45 10/15/2014 23: 59:00 DIS Outpatient SONY CAMPO [facility] [id number] 08/12/2014 12:31:00 08/12/2014 14: 34:00 DIS Emergency [facility] FED [id number] 06/21/2014 16:47:00 06/21/2014 17: 52:00 DIS Emergency [facility] FED [id number] 09/02/2014 00:00:00 Document Registration
== END 2020-01-23 11:08 | disposition home or self-care (01) ==
LOC: EDUNIT# 08:56 → ER FS 08:57
DX: R29.818 Other symptoms and signs involving the nervous system (principal); I10 Essential (primary) hypertension; E78.00 Pure hypercholesterolemia, unspecified; E11.9 Type 2 diabetes mellitus without complications; F31.9 Bipolar disorder, unspecified; F41.9 Anxiety disorder, unspecified; Z79.84 Long term (current) use of oral hypoglycemic drugs; Z77.22 Contact with and (suspected) exposure to environmental tobacco smoke (acute) (chronic); Z85.528 Personal history of other malignant neoplasm of kidney; Z85.51 Personal history of malignant neoplasm of bladder; Z88.8 Allergy status to other drugs, medicaments and biological substances
CPT/HCPCS: 36415; 70450; 80053; 80306; 81000; 84443; 84484; 85025; 86141

== ENCOUNTER 2020-03-13 20:03 | Emergency (ER) | payer MEDICARE, MEDICAID ==
[~2020-03-13] VITALS: Ht 170.1 cm; Wt 103.9 kg
[2020-03-13 20:11] VITALS: BP 134/98
--- NOTE | 2020-03-13 20:25 | ED General ---
General Chief Complaint: Glucose Problems Stated Complaint: HYPERGLYCEMIA (GLUCOSE 408) Nursing Triage Note: Patient states that she has a history of diabetes. She checked her blood sugar at home and it was 408. Patient has an insulin pump. Nursing Sepsis Screen: No Definite Risk Exam Limitations: No Limitations History of Present Illness Date Seen by Provider: Mar 13, 2020 Time Seen by Provider: 22:05 Initial Comments Patient is a 54-year-old insulin-dependent diabetes who presents with concern for blood sugar 408 after dinner this evening and after administering insulin from her insulin pump. Patient states much. Been trending higher from 300 earlier today. Denies dizziness lightheadedness polyuria polydipsia fatigue, chills, nausea, vomiting, sweats abdominal pain or any symptoms at this time. Timing/Duration: 1-3 Hours Severity: Mild Modifying Factors: improves with Eating, improves with Medication Associated Systoms: Other (none) Allergies and Home Medications Allergies Coded Allergies: hydroxyzine (Verified Allergy, Unknown, 01/23/20) Home Medications Atorvastatin Calcium 10 Mg Tablet, 10 MG PO HS, (Reported) Benzonatate 100 Mg Capsule, 100 MG PO Q8H PRN for COUGH Prescribed by: DEBBIE BASS on 11/20/19 1636 Escitalopram Oxalate 10 Mg Tablet, 10 MG PO DAILY, (Reported) Ibuprofen 800 Mg Tablet, 800 MG PO Q8H PRN for PAIN-MILD, (Reported) Linagliptin 5 Mg Tablet, 5 MG PO DAILY, (Reported) Lisinopril 5 Mg Tablet, 5 MG PO DAILY, (Reported) Metformin HCl 750 Mg Tab.er.24h, 1,500 MG PO HS, (Reported) Nebivolol HCl 10 Mg Tab, 10 MG PO DAILY, (Reported) Olanzapine 10 Mg Tablet, 10 MG PO HS, (Reported) Tramadol HCl 50 Mg Tablet, 50 MG PO PRN, (Reported) Ziprasidone 80 Mg Cap, 160 MG PO HS, (Reported) Patient Home Medication List Home Medication List Reviewed: Yes Review of Systems Review of Systems Constitutional: no symptoms reported EENTM: no symptoms reported Respiratory: no symptoms reported Cardiovascular: no symptoms reported Gastrointestinal: no symptoms reported Genitourinary: no symptoms reported Musculoskeletal: no symptoms reported Skin: no symptoms reported Psychiatric/Neurological: No Symptoms Reported Hematologic/Lymphatic: No Symptoms Reported Immunological/Allergic: no symptoms reported Past Nbnmlju-Zxgouy-Aupnmu Hx Past Med/Social Hx: Reviewed Nursing Past Med/Soc Hx Patient Social History Drug of Choice: marijuana-states last use 1-2 months ago Type Used: Cigarettes 2nd Hand Smoke Exposure: Yes Recent Foreign Travel: No Contact w/Someone Who Travel: No Recent Infectious Disease Expo: No Recent Hopitalizations: No Seasonal Allergies Seasonal Allergies: No Past Medical History Surgeries: Yes Abdominal, Hysterectomy, Nephrectomy, Tonsillectomy, Tubal Ligation Respiratory: Yes Asthma, COPD, Emphysema Currently Using CPAP: No (Has CPAP for JUAN ANTONIO but not tolerating) Currently Using BIPAP: No Cardiac: Yes High Cholesterol, Hypertension 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 had recent axilla abscess) Recent Skin Changes Blood Disorders: Yes (HEP C) Adverse Reaction/Blood Tranf: No Physical Exam Vital Signs Capillary Refill : Less Than 3 Seconds Height, Weight, BMI Height: 5'7.00" Weight: 224lbs. 0.0oz. [id number]; 35.00 BMI Method:Actual General Appearance: No Apparent Distress, WD/WN, Anxious Eyes: Bilateral Eye Normal Inspection, Bilateral Eye PERRL, Bilateral Eye EOMI HEENT: PERRL/EOMI, Normal ENT Inspection Neck: Full Range of Motion, Normal Inspection Respiratory: Lungs Clear, Normal Breath Sounds, No Accessory Muscle Use Cardiovascular: Regular Rate, Rhythm Gastrointestinal: Non Tender, Soft Back: Normal Inspection Extremity: Normal Range of Motion, Non Tender Neurologic/Psychiatric: Alert, Oriented x3, No Motor/Sensory Deficits, Normal Mood/Affect Skin: Normal Color, Warm/Dry Focused Exam Sepsis Stage: Ruled Out Progress/Results/Core Measures Suspected Sepsis Recent Fever Within 48 Hours: No Infection Criteria Present: None New/Unexplained Altered Menta: No Sepsis Screen: No Definite Risk SIRS Temperature: Pulse: 102 Respiratory Rate: 18 Blood Pressure 134 /98 Mean: 110 Results/Orders Vital Signs/I&O Capillary Refill : Less Than 3 Seconds Blood Pressure Mean: 110 Departure Communication (Admissions) Patient resting comfortably and is asymptomatic. Blood sugar 179 in ED. Vital signs stable. Recommend watchful waiting and continuing current care plan. Follow up with PCP for further diabetic management. Impression Primary Impression: Hyperglycemia Disposition: HOME, SELF-CARE Condition: Stable Departure-Patient Inst. Decision time for Depature: 20:20 Referrals: [facility] (PCP) Primary Care Physician Add. Discharge Instructions: Please continue to follow diabetic diet and take insulin as scheduled. Follow up with your PCP for futher management of your diabetes. All discharge instructions reviewed with patient and/or family. Voiced understanding. JAZIEL WONG DO Mar 13, 2020 20:25
== END 2020-03-13 20:23 | disposition home or self-care (01) ==
LOC: EDUNIT# 20:03 → ER FS 20:04
DX: E11.65 Type 2 diabetes mellitus with hyperglycemia (principal); F41.9 Anxiety disorder, unspecified; E78.00 Pure hypercholesterolemia, unspecified; F31.9 Bipolar disorder, unspecified; I10 Essential (primary) hypertension; Z88.6 Allergy status to analgesic agent; Z85.51 Personal history of malignant neoplasm of bladder; Z85.528 Personal history of other malignant neoplasm of kidney; Z77.22 Contact with and (suspected) exposure to environmental tobacco smoke (acute) (chronic); Z79.84 Long term (current) use of oral hypoglycemic drugs
CPT/HCPCS: 82962

== ENCOUNTER → 2020-03-15 | Outpatient (CLI) | payer MEDICARE, MEDICAID ==
[2020-03-15 15:15] LABS: BASOPHILS # (AUTO) 0.1 10^3/uL (0.0-0.1); BASOPHILS % (AUTO) 1 % (0-10); EOSINOPHILS # (AUTO) 0.2 10^3/uL (0.0-0.3); EOSINOPHILS % (AUTO) 2 % (0-10); HEMATOCRIT 36 % (35-52); HEMOGLOBIN 11.6 G/DL (11.5-16.0); LYMPHOCYTES # (AUTO) 2.9 X 10^3 (1.0-4.0); LYMPHOCYTES % (AUTO) 35 % (12-44); MEAN CORPUSCULAR HEMOGLOBIN 29 PG (25-34); MEAN CORPUSCULAR HGB CONC 33 G/DL (32-36); MEAN CORPUSCULAR VOLUME 89 FL (80-99); MEAN PLATELET VOLUME 10.2 FL (7.4-10.4); MONOCYTES # (AUTO) 0.5 X 10^3 (0.0-1.0); MONOCYTES % (AUTO) 6 % (0-12); NEUTROPHILS # (AUTO) 4.6 X 10^3 (1.8-7.8); NEUTROPHILS % (AUTO) 56 % (42-75); PLATELET COUNT 200 10^3/uL (130-400); RED CELL DISTRIBUTION WIDTH 16.7 % (10.0-14.5); WHITE BLOOD COUNT 8.3 10^3/uL (4.3-11.0)
[2020-03-15 15:26] LABS: CARBON DIOXIDE 20 MMOL/L (21-32); CHLORIDE 103 MMOL/L (98-107); SODIUM 135 MMOL/L (135-145)
[2020-03-15 15:27] LABS: ALANINE AMINOTRANSFERASE 15 U/L (0-55); ALBUMIN 3.8 GM/DL (3.2-4.5); ALKALINE PHOSPHATASE 124 U/L (40-136); BILIRUBIN,TOTAL < 0.2 MG/DL (0.1-1.0); BUN/CREATININE RATIO 17; CALCIUM 8.8 MG/DL (8.5-10.1); CREATININE SERUM 1.18 MG/DL (0.60-1.30); GFR ESTIMATED 48; GLUCOSE 308 MG/DL (70-105); TOTAL PROTEIN 6.5 GM/DL (6.4-8.2)
[2020-03-16 14:54] LABS: ABSOLUTE RETIC # 49 10e9/L (24-90); RETICULOCYTE % 1.19 % (0.50-2.40)
== END ==
LOC: LAB FS 14:33
PROVIDERS: ATTEND Internal Medicine Hematology & Oncology
DX: C66.1 Malignant neoplasm of right ureter (principal)
CPT/HCPCS: 36415; 80053; 82607; 82728; 82746; 83540; 83615; 85007; 85025; 85045

== ENCOUNTER → 2020-03-16 | Outpatient (CLI) | payer MEDICARE, MEDICAID ==
[~2020-03-16] MED LIST changes: +CATHETER FLUSH 10 ML SYR IV PRN; +HOLD METFORMIN - RECEIVED CONTRAST 20 ML VIAL IV SCH; +IOHEXOL 350 MG/ML 100 ML (OMNIPAQUE 350) VIAL IV ONE; +NS 100 ML (IVPB) BAG IV ONE
--- NOTE | 2020-03-16 15:10 | Diagnostic Imaging Report ---
PROCEDURE: CT chest, abdomen, and pelvis with and without contrast. TECHNIQUE: Precontrast images were obtained of the chest, abdomen, and pelvis. Multiple contiguous axial images were obtained through the chest, abdomen, and pelvis after administration of intravenous contrast. Auto Exposure Controls were utilized during the CT exam to meet ALARA standards for radiation dose reduction. INDICATION: Malignant neoplasm of the right ureter. Comparison made with prior examination from 12/19/2019. FINDINGS: There is an unchanged subpleural nodule in the posterior aspect of the right upper lobe. There are no other discrete pulmonary nodules, masses, or infiltrates. The heart size is normal. There is no pathologically enlarged adenopathy in the chest. Eltpxz-a-Lkae catheter overlies the left chest and has its tip in the superior vena cava. The thoracic aorta is normal in caliber and without evidence of dissection. There are no filling defects within the pulmonary arteries to suggest pulmonary embolism. There is no pleural or pericardial fluid. There is no pneumothorax. There is mild thoracic spondylosis. There is some hepatomegaly and diffuse fatty infiltration of the liver. Gallbladder is surgically absent. Spleen is normal. Pancreas and adrenal glands are unremarkable. The left kidney is normal in appearance. There are postsurgical changes of a right nephrectomy. The aorta is normal in caliber. The bowel gas pattern is nonspecific. There is no free air. There is no ascites. There are no focal inflammatory changes. Appendix is normal. Bladder is normal. There is no pelvic mass or adenopathy. There are degenerative changes in the spine. IMPRESSION: Unchanged tiny subpleural nodule in the posterior aspect of the right upper lobe. Otherwise unremarkable CT chest. Hepatomegaly and fatty infiltration of the liver. Previous right nephrectomy Mild degenerative changes in the spine. No other acute abnormality in the chest, abdomen, or pelvis. Dictated by: Dictated on workstation # [id number]
== END ==
LOC: RAD FS 13:08
PROVIDERS: ATTEND Internal Medicine Hematology & Oncology
DX: C66.1 Malignant neoplasm of right ureter (principal); M47.819 Spondylosis without myelopathy or radiculopathy, site unspecified; K76.0 Fatty (change of) liver, not elsewhere classified; Z90.5 Acquired absence of kidney
CPT/HCPCS: 71270; 74178

== ENCOUNTER 2020-04-10 09:26 | Emergency (ER) | payer MEDICARE, MEDICAID ==
[~2020-04-10] VITALS: Ht 170.1 cm; Wt 103.0 kg
[~2020-04-10 09:26] MED LIST changes: -CATHETER FLUSH 10 ML SYR IV PRN; -HOLD METFORMIN - RECEIVED CONTRAST 20 ML VIAL IV SCH; -IOHEXOL 350 MG/ML 100 ML (OMNIPAQUE 350) VIAL IV ONE; -NS 100 ML (IVPB) BAG IV ONE
[2020-04-10 09:32] VITALS: BP 127/72
[2020-04-10] MEDS ORDERED: CYCL10TA9 PO (09:53)
[2020-04-10] MEDS ORDERED: IBUP-1780 PO (09:53)
--- NOTE | 2020-04-10 09:54 | ED Upper Extremity ---
General Chief Complaint: Upper Extremity Stated Complaint: RT HAND/SHOULDER PAIN; LT THUMB PAIN Source: patient History of Present Illness Date Seen by Provider: Apr 10, 2020 Time Seen by Provider: 19:45 Initial Comments 54-year-old female presents from the [facility] where she was seen this morning for numbness in her hands. Patient states she awoke this morning having tingling in her right hand fourth and fifth finger and in her left hand thumb only. Denies any weakness of any extremity, difficulty with speech or coordination. Denies chest pain, shortness of air, fever chills or recent ill ness. Denies history of CVA or heart disease. Also complains of muscle pain on the right side of her neck that she doesn't typ ically have. Denies sleeping in the new bed or with new pillow and denies any recent injury. Allergies and Home Medications Allergies Coded Allergies: hydroxyzine (Verified Allergy, Unknown, 01/23/20) Home Medications Atorvastatin Calcium 10 Mg Tablet, 10 MG PO HS, (Reported) Benzonatate 100 Mg Capsule, 100 MG PO Q8H PRN for COUGH Prescribed by: DEBBIE BASS on 11/20/19 1636 Cyclobenzaprine HCl 10 Mg Tablet, 10 MG PO Q8H PRN for SPASMS Prescribed by: EDNA KENT on 04/10/20 09 Escitalopram Oxalate 10 Mg Tablet, 10 MG PO DAILY, (Reported) Ibuprofen 800 Mg Tablet, 800 MG PO Q8H PRN for PAIN-MILD, (Reported) Ibuprofen 800 Mg Tablet, 800 MG PO Q8H PRN for PAIN Prescribed by: EDNA KENT on 04/10/20952 Linagliptin 5 Mg Tablet, 5 MG PO DAILY, (Reported) Lisinopril 5 Mg Tablet, 5 MG PO DAILY, (Reported) Metformin HCl 750 Mg Tab.er.24h, 1,500 MG PO HS, (Reported) Nebivolol HCl 10 Mg Tab, 10 MG PO DAILY, (Reported) Olanzapine 10 Mg Tablet, 10 MG PO HS, (Reported) Tramadol HCl 50 Mg Tablet, 50 MG PO PRN, (Reported) Ziprasidone 80 Mg Cap, 160 MG PO HS, (Reported) Patient Home Medication List Home Medication List Reviewed: Yes Review of Systems Constitutional: no symptoms reported; No dizziness, No fever, No malaise, No weakness EENTM: no symptoms reported Respiratory: No cough, No short of breath Cardiovascular: No chest pain, No edema, No palpitations Gastrointestinal: no symptoms reported Musculoskeletal: see HPI; No back pain, No joint pain; muscle pain, neck pain Skin: No change in color, No rash Psychiatric/Neurological: Denies Headache; Numbness, Paresthesia; Denies Pre- Existing Deficit, Denies Seizure; Tingling; Denies Tremors, Denies Weakness Past Evetxzq-Ocogtw-Djtzwk Hx Past Med/Social Hx: Reviewed Nursing Past Med/Soc Hx Patient Social History Alcohol Use: Denies Use Recreational Drug Use: Yes Drug of Choice: marijuana-states last use 1-2 months ago Smoking Status: Current Everyday Smoker Type Used: Cigarettes 2nd Hand Smoke Exposure: Yes Recent Hopitalizations: No Seasonal Allergies Seasonal Allergies: No Past Medical History Surgeries: Yes Abdominal, Hysterectomy, Nephrectomy, Tonsillectomy, Tubal Ligation Respiratory: Yes Asthma, COPD, Emphysema Currently Using CPAP: No (Has CPAP for JUAN ANTONIO but not tolerating) Currently Using BIPAP: No Cardiac: Yes High Cholesterol, Hypertension 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 had recent axilla abscess) Recent Skin Changes Blood Disorders: Yes (HEP C) Adverse Reaction/Blood Tranf: No Physical Exam Vital Signs Capillary Refill : Height, Weight, BMI Height: 5'7.00" Weight: 224lbs. 0.0oz. 101.655059ba; 35.00 BMI Method:Actual General Appearance: WD/WN, no apparent distress HEENT: PERRL/EOMI, normal ENT inspection Neck: full range of motion, supple, tender lateral (right cervical paraspinal ms and R upper medial trapezius ms w trigger point TTP affecting RUE) Cardiovascular: regular rate, rhythm, no edema, no gallop Respiratory: chest non-tender, lungs clear, normal breath sounds Shoulder: normal inspection, non-tender, no evidence of injury, normal ROM Elbow/Forearm: normal inspection, non-tender, no evidence of injury, normal ROM Wrist: Yes normal inspection, Yes non-tender, Yes no evidence of injury, Yes normal ROM Hand: normal inspection, non-tender, no evidence of injury, normal ROM Neurologic/Tendon: normal motor functions, normal tendon functions, other (minimal dysesthesia/ paresthesia- RUE- 4th and 5th fingers; LUE- thumb) 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 Decision time for Depature: 09:52 Referrals: [facility] (PCP) Primary Care Physician ABHILASH NICE APRN (Family) Primary Care Physician Patient Instructions: Paresthesia (DC), Muscle Spasms (DC) Add. Discharge Instructions: see your PCP in 1 wk if not improving, sooner if worse. Call 911 or go to the nearest ER for any associated weakness, progressive numbness or speech difficulty All discharge instructions reviewed with patient and/or family. Voiced understanding. Scripts Ibuprofen (Ibuprofen) 800 Mg Tablet 800 MG PO Q8H PRN for PAIN, #30 TAB 0 Refills Prov: EDNA KENT DO 04/10/20 Cyclobenzaprine HCl (Cyclobenzaprine HCl) 10 Mg Tablet 10 MG PO Q8H PRN for SPASMS, #20 TAB 0 Refills Prov: MANOHARSTINEEDNA DO 04/10/20 EDNA KENT DO Apr 10, 2020 09:54
== END 2020-04-10 09:55 | disposition home or self-care (01) ==
LOC: EDUNIT# 09:26 → ER FS 09:28
DX: R20.2 Paresthesia of skin (principal); M54.2 Cervicalgia; I10 Essential (primary) hypertension; E11.9 Type 2 diabetes mellitus without complications; E78.00 Pure hypercholesterolemia, unspecified; F41.9 Anxiety disorder, unspecified; F31.9 Bipolar disorder, unspecified; F17.210 Nicotine dependence, cigarettes, uncomplicated; Z88.8 Allergy status to other drugs, medicaments and biological substances; Z85.51 Personal history of malignant neoplasm of bladder; Z85.528 Personal history of other malignant neoplasm of kidney; Z79.84 Long term (current) use of oral hypoglycemic drugs
CPT/HCPCS: 99282

== ENCOUNTER → 2020-04-21 | Outpatient (CLI) | payer MEDICARE, MEDICAID ==
[~2020-04-21] MED LIST changes: +CYCL10TA9 PO
== END ==
LOC: WOUNDCARE 13:36
PROVIDERS: ATTEND Surgery
DX: L03.116 Cellulitis of left lower limb (principal); L97.122 Non-pressure chronic ulcer of left thigh with fat layer exposed
CPT/HCPCS: 99213

== ENCOUNTER 2020-05-19 08:11 | Emergency (ER) | payer MEDICARE, MEDICAID ==
[~2020-05-19] VITALS: Ht 170 cm; Wt 100.0 kg
--- NOTE | 2020-05-19 08:39 | ED Cough/URI ---
General Chief Complaint: Respiratory Problems Stated Complaint: SOB Nursing Triage Note: PT WENT TO URGENT CARE ON SUNDAY. SHE REPORTS EXACERBATION OF HER COPD. THEY STARTED HER ON A STEROID AND THE Z-DEVIN. SHE REPORTS IT HURTS TO TUTU IN A DEEP BREATH AND HER RIBS ARE SORE FROM COUGHING. NO FEVER AND NO OTHER SYMPTOMS SHE REPORTS. Sepsis Screen: No Definite Risk History of Present Illness Date Seen by Provider: May 19, 2020 Time Seen by Provider: 08:30 Initial Comments 54-year-old female with past medical history significant for COPD presents with a few day history of cough and shortness of air. Seen in urgent care 3 days ago and started on a Z-Devin as well as some steroids. States she is not getting any better and this morning she lost her voice. Denies any fever, body aches or chills. Denies use of home oxygen. She is using inhalers with some relief of symptoms. Denies any known exposure to COVID-19. Allergies and Home Medications Allergies Coded Allergies: hydroxyzine (Verified Allergy, Unknown, 01/23/20) Home Medications Atorvastatin Calcium 10 Mg Tablet, 10 MG PO HS, (Reported) Benzonatate 100 Mg Capsule, 100 MG PO Q8H PRN for COUGH Prescribed by: DEBBIE BASS on 11/20/19 1636 Cyclobenzaprine HCl 10 Mg Tablet, 10 MG PO Q8H PRN for SPASMS Prescribed by: EDNA KENT on 04/10/20 0953 Doxycycline Hyclate 100 Mg Tablet, 100 MG PO BID Prescribed by: EDNA KENT on 05/19/20 0917 Escitalopram Oxalate 10 Mg Tablet, 10 MG PO DAILY, (Reported) Ibuprofen 800 Mg Tablet, 800 MG PO Q8H PRN for PAIN-MILD, (Reported) Ibuprofen 800 Mg Tablet, 800 MG PO Q8H PRN for PAIN Prescribed by: EDNA KENT on 04/10/20 0953 Linagliptin 5 Mg Tablet, 5 MG PO DAILY, (Reported) Lisinopril 5 Mg Tablet, 5 MG PO DAILY, (Reported) Metformin HCl 750 Mg Tab.er.24h, 1,500 MG PO HS, (Reported) Nebivolol HCl 10 Mg Tab, 10 MG PO DAILY, (Reported) Olanzapine 10 Mg Tablet, 10 MG PO HS, (Reported) Prednisone 50 Mg Tab, 50 MG PO DAILY Prescribed by: EDNA KENT on 05/19/20 0904 Tramadol HCl 50 Mg Tablet, 50 MG PO PRN, (Reported) Ziprasidone 80 Mg Cap, 160 MG PO HS, (Reported) Patient Home Medication List Home Medication List Reviewed: Yes Review of Systems Review of Systems Constitutional: No dizziness, No fever, No malaise, No weakness EENTM: see HPI, hoarseness; No ear discharge, No ear pain, No blurred vision, No mouth pain, No mouth swelling, No epistaxis, No nose congestion, No throat pain, No throat swelling Respiratory: cough; No hemoptysis; short of breath, wheezing Cardiovascular: No chest pain, No edema, No palpitations, No syncope Gastrointestinal: No abdominal pain, No nausea, No vomiting Skin: No change in color, No rash Past Tbhdora-Vjsymg-Jgwjwn Hx Past Med/Social Hx: Reviewed Nursing Past Med/Soc Hx Patient Social History Alcohol Use: Denies Use Recreational Drug Use: Yes Drug of Choice: marijuana-states last use 1-2 months ago Smoking Status: Current Everyday Smoker Type Used: Cigarettes 2nd Hand Smoke Exposure: Yes Recent Foreign Travel: No Contact w/Someone Who Travel: No Recent Infectious Disease Expo: No Recent Hopitalizations: No Physical Abuse: No Sexual Abuse: No Mistreated: No Fear: No Seasonal Allergies Seasonal Allergies: No Past Medical History Surgeries: Yes Abdominal, Hysterectomy, Nephrectomy, Tonsillectomy, Tubal Ligation Respiratory: Yes Asthma, COPD, Emphysema Currently Using CPAP: No (Has CPAP for JUAN ANTONIO but not tolerating) Currently Using BIPAP: No Cardiac: Yes High Cholesterol, Hypertension 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 had recent axilla abscess) Recent Skin Changes Blood Disorders: Yes (HEP C) Adverse Reaction/Blood Tranf: No Physical Exam Vital Signs - First Documented 05/19/20 08:28 Temp 36.8 Pulse 84 Resp 18 B/P (MAP) 84/61 (69) Pulse Ox 92 O2 Delivery Room Air Capillary Refill : Less Than 3 Seconds Height: 5'7.00" Weight: 224lbs. 0.0oz. 101.201710zw; 34.00 BMI Method:Actual General Appearance: WD/WN, no apparent distress HEENT: PERRL/EOMI, normal ENT inspection Neck: non-tender, supple Respiratory: chest non-tender, no respiratory distress, no accessory muscle use, decreased breath sounds, wheezing Cardiovascular: regular rate, rhythm, no edema Gastrointestinal: non tender, soft Extremities: non-tender, no pedal edema Neurologic/Psychiatric: alert, normal mood/affect Skin: normal color, warm/dry; No rash Progress/Results/Core Measures Suspected Sepsis Recent Fever Within 48 Hours: No Infection Criteria Present: None New/Unexplained Altered Menta: No Sepsis Screen: No Definite Risk SIRS Temperature: Pulse: 84 Respiratory Rate: 18 Laboratory Tests 05/19/20 08:39: White Blood Count 11.6H Blood Pressure 84 /61 Mean: 69 Laboratory Tests 05/19/20 08:39: Creatinine 1.23, Platelet Count 206, Total Bilirubin 0.2 Results/Orders Lab Results Laboratory Tests Test 05/19/20 08:39 Range/Units White Blood Count 11.6 H 4.3-11.0 10^3/uL Red Blood Count 4.50 4.35-5.85 10^6/uL Hemoglobin 12.7 11.5-16.0 G/DL Hematocrit 39 35-52 % Mean Corpuscular Volume 88 80-99 FL Mean Corpuscular Hemoglobin 28 25-34 PG Mean Corpuscular Hemoglobin Concent 32 32-36 G/DL Red Cell Distribution Width 16.5 H 10.0-14.5 % Platelet Count 206 130-400 10^3/uL Mean Platelet Volume 10.6 H 7.4-10.4 FL Immature Granulocyte % (Auto) 1 % Neutrophils (%) (Auto) 69 42-75 % Lymphocytes (%) (Auto) 23 12-44 % Monocytes (%) (Auto) 6 0-12 % Eosinophils (%) (Auto) 1 0-10 % Basophils (%) (Auto) 1 0-10 % Neutrophils # (Auto) 8.0 H 1.8-7.8 X 10^3 Lymphocytes # (Auto) 2.7 1.0-4.0 X 10^3 Monocytes # (Auto) 0.6 0.0-1.0 X 10^3 Eosinophils # (Auto) 0.1 0.0-0.3 10^3/uL Basophils # (Auto) 0.1 0.0-0.1 10^3/uL Immature Granulocyte # (Auto) 0.1 0.0-0.1 10^3/uL Sodium Level 132 L 135-145 MMOL/L Potassium Level 4.3 3.6-5.0 MMOL/L Chloride Level 94 L 98-107 MMOL/L Carbon Dioxide Level 24 21-32 MMOL/L Anion Gap 14 5-14 MMOL/L Blood Urea Nitrogen 22 H 7-18 MG/DL Creatinine 1.23 0.60-1.30 MG/DL Estimat Glomerular Filtration Rate 46 BUN/Creatinine Ratio 18 Glucose Level 542 *H 70-105 MG/DL Calcium Level 9.6 8.5-10.1 MG/DL Corrected Calcium 9.4 8.5-10.1 MG/DL Total Bilirubin 0.2 0.1-1.0 MG/DL Aspartate Amino Transf (AST/SGOT) 25 5-34 U/L Alanine Aminotransferase (ALT/SGPT) 69 H 0-55 U/L Alkaline Phosphatase 146 H 40-136 U/L Total Protein 7.5 6.4-8.2 GM/DL Albumin 4.2 3.2-4.5 GM/DL My Orders Orders - ROVENSTINE,EDNA L DO Chest 1 View Ap/Pa Only (05/19/20 08:32) Cbc With Automated Diff (05/19/20 08:32) Comprehensive Metabolic Panel (05/19/20 08:32) Ed Iv/Invasive Line Start (05/19/20 08:32) Methylprednisolone Sod Succ (Solu-Medrol (05/19/20 08:45) Albuterol/Ipra Inhalation Soln (Duoneb I (05/19/20 08:45) Svn Small Volume Nebulizer (05/19/20 08:32) Ns Iv 1000 Ml (Sodium Chloride 0.9%) (05/19/20 09:15) Ns Iv 1000 Ml (Sodium Chloride 0.9%) (05/19/20 09:12) Insulin (Regular) Human (Novolin R (Per (05/19/20 09:30) Medications Given in ED Current Medications Medications Dose Ordered Sig/Yoselyn Route Start Time Stop Time Status Last Admin Dose Admin Albuterol/ Ipratropium 3 ml ONCE ONCE INH 05/19/20 08:45 05/19/20 08:46 DC 05/19/20 08:43 3 ML Insulin Human Regular 10 unit ONCE ONCE IV 05/19/20 09:30 05/19/20 09:31 DC 05/19/20 09:22 10 UNIT Methylprednisolone Sodium Succinate 125 mg ONCE ONCE IVP 05/19/20 08:45 05/19/20 08:46 DC 05/19/20 08:42 125 MG Vital Signs/I&O 05/19/20 08:28 Temp 36.8 Pulse 84 Resp 18 B/P (MAP) 84/61 (69) Pulse Ox 92 O2 Delivery Room Air Capillary Refill : Less Than 3 Seconds Blood Pressure Mean: 69 Diagnostic Imaging Diagonstic Imaging: Xray Plain Films/CT/US/NM/MRI: chest Comments IMPRESSION: No pneumothorax. Increased right basilar pulmonary opacity, likely some partial atelectasis; however, in the appropriate scenario, pneumonia could not be excluded. Dictated on workstation # [id number] Dict: 05/19/20900 Trans: 05/19/20903 [id number] Interpreted by: CYNDEE PASCAL Electronically signed by: Departure Impression Primary Impression: COPD with exacerbation Additional Impression: Hyperglycemia Disposition: 01 HOME, SELF-CARE Condition: Improved Departure-Patient Inst. Decision time for Depature: 09:04 Referrals: [facility]/ (PCP) Primary Care Physician ABHILASH NICE APRN (Family) Primary Care Physician Patient Instructions: Exacerbation of COPD (DC), Hyperglycemia, Adult (DC) Add. Discharge Instructions: Follow up with your PCP in 5 to 7 days for re-evaluation. Follow up to the ER sooner if worse. All discharge instructions reviewed with patient and/or family. Voiced understanding. Scripts Doxycycline Hyclate (Doxycycline Hyclate) 100 Mg Tablet 100 MG PO BID, #20 TAB 0 Refills Prov: EDNA KENT DO 05/19/20 Prednisone (Prednisone) 50 Mg Tab 50 MG PO DAILY, #10 TAB Prov: ROVENSTINE,EDNA L DO 05/19/20 EDNA KENT DO May 19, 2020 08:39
[2020-05-19] MEDS ORDERED: methylPREDNISolone 125 MG (Solu-MEDROL) VIAL IVP ONE (08:45)
[2020-05-19] MEDS ORDERED: RT-ALBUTEROL/IPRATROPIUM 3 ML (DUONEB) VIAL INH ONE (08:45)
[2020-05-19 08:49] LABS: BASOPHILS % (AUTO) 1 % (0-10); EOSINOPHILS % (AUTO) 1 % (0-10); HEMATOCRIT 39 % (35-52); HEMOGLOBIN 12.7 G/DL (11.5-16.0); MEAN CORPUSCULAR HEMOGLOBIN 28 PG (25-34); MEAN CORPUSCULAR HGB CONC 32 G/DL (32-36); MEAN CORPUSCULAR VOLUME 88 FL (80-99); MEAN PLATELET VOLUME 10.6 FL (7.4-10.4); MONOCYTES % (AUTO) 6 % (0-12); NEUTROPHILS % (AUTO) 69 % (42-75); PLATELET COUNT 206 10^3/uL (130-400); WHITE BLOOD COUNT 11.6 10^3/uL (4.3-11.0)
[2020-05-19 08:50] LABS: BASOPHILS # (AUTO) 0.1 10^3/uL (0.0-0.1); EOSINOPHILS # (AUTO) 0.1 10^3/uL (0.0-0.3); LYMPHOCYTES # (AUTO) 2.7 X 10^3 (1.0-4.0); LYMPHOCYTES % (AUTO) 23 % (12-44); MONOCYTES # (AUTO) 0.6 X 10^3 (0.0-1.0)
[2020-05-19] MEDS ORDERED: PRD50T PO (09:04)
--- NOTE | 2020-05-19 09:04 | Diagnostic Imaging Report ---
INDICATION: Respiratory distress. FINDINGS: The left subclavian catheter is at the mid SVC. There is no pneumothorax. There is some mild right basilar opacity having increased from the prior exam which may be atelectasis or early pneumonia in the appropriate scenario. No failure pattern. No effusion. IMPRESSION: No pneumothorax. Increased right basilar pulmonary opacity, likely some partial atelectasis; however, in the appropriate scenario, pneumonia could not be excluded. Dictated by: Dictated on workstation # [id number]
[2020-05-19 09:10] LABS: POTASSIUM 4.3 MMOL/L (3.6-5.0)
[2020-05-19 09:11] LABS: ALBUMIN 4.2 GM/DL (3.2-4.5); BILIRUBIN,TOTAL 0.2 MG/DL (0.1-1.0); CALCIUM 9.6 MG/DL (8.5-10.1); CREATININE SERUM 1.23 MG/DL (0.60-1.30); TOTAL PROTEIN 7.5 GM/DL (6.4-8.2)
[2020-05-19] MEDS ORDERED: NS IV 1000 ML 1,000 ML ONE (09:12)
[2020-05-19] MEDS ORDERED: NS IV 1000 ML 1,000 ML IV SCH (09:15)
[2020-05-19] MEDS ORDERED: DOXY100T2 PO (09:17)
[2020-05-19] MEDS ORDERED: inSUlin (REGULAR) HUMAN 1 UNIT/0.01 ML (CHARGE PER UNIT) IV ONE (09:30)
[2020-05-19 10:15] VITALS: BP 123/62
== END 2020-05-19 10:15 | disposition home or self-care (01) ==
LOC: EDUNIT# 08:11 → ER FS 08:13
DX: J44.1 Chronic obstructive pulmonary disease with (acute) exacerbation (principal); E11.65 Type 2 diabetes mellitus with hyperglycemia; F31.9 Bipolar disorder, unspecified; E78.00 Pure hypercholesterolemia, unspecified; I10 Essential (primary) hypertension; F41.9 Anxiety disorder, unspecified; F17.210 Nicotine dependence, cigarettes, uncomplicated; Z85.51 Personal history of malignant neoplasm of bladder; Z85.528 Personal history of other malignant neoplasm of kidney; Z79.52 Long term (current) use of systemic steroids; Z88.8 Allergy status to other drugs, medicaments and biological substances
CPT/HCPCS: 36415; 71045; 80053; 85025

== ENCOUNTER 2020-05-21 10:22 | Emergency (ER) | payer MEDICARE, MEDICAID ==
[~2020-05-21] VITALS: Ht 170.2 cm; Wt 101.6 kg
[~2020-05-21 10:22] MED LIST changes: +DOXY100T2 PO; +PRD50T PO
[2020-05-21 10:35] VITALS: BP 105/64
[2020-05-21] MEDS ORDERED: NS IV 1000 ML 1,000 ML IV STA ×2 (10:38→11:56)
--- NOTE | 2020-05-21 10:41 | ED General ---
General Chief Complaint: Glucose Problems Stated Complaint: HYPERGLYCEMIA Source of Information: Patient, RN/MD, RN Notes Reviewed History of Present Illness Date Seen by Provider: May 21, 2020 Time Seen by Provider: 10:35 Initial Comments This patient is a 35-year-old female presents to the emergency department complains of elevated blood glucose. Patient is a known diabetic and does wear an insulin pump. Patient was playing placed on oral steroids due to an upper respiratory infection. Patient had a negative COVID test today. Patient states with the steroids is been hard to control her sugar. Apparently at home her glucose is reading 572. Patient did bolus her self at 6 AM this morning of 20 units of insulin was still reading too high to read home. We'll do medical evaluation treatment is needed. Timing/Duration: 1-2 Days Severity: Mild, Moderate Associated Systoms: Cough Allergies and Home Medications Allergies Coded Allergies: hydroxyzine (Verified Allergy, Unknown, 01/23/20) Home Medications Atorvastatin Calcium 10 Mg Tablet, 10 MG PO HS, (Reported) Benzonatate 100 Mg Capsule, 100 MG PO Q8H PRN for COUGH Prescribed by: DEBBIE BASS on 11/20/19 1636 Cyclobenzaprine HCl 10 Mg Tablet, 10 MG PO Q8H PRN for SPASMS Prescribed by: EDNA KENT on 04/10/20 0953 Doxycycline Hyclate 100 Mg Tablet, 100 MG PO BID Prescribed by: EDNA KENT on 05/19/20 0917 Escitalopram Oxalate 10 Mg Tablet, 10 MG PO DAILY, (Reported) Ibuprofen 800 Mg Tablet, 800 MG PO Q8H PRN for PAIN-MILD, (Reported) Ibuprofen 800 Mg Tablet, 800 MG PO Q8H PRN for PAIN Prescribed by: EDNA KENT on 04/10/20 09 Linagliptin 5 Mg Tablet, 5 MG PO DAILY, (Reported) Lisinopril 5 Mg Tablet, 5 MG PO DAILY, (Reported) Metformin HCl 750 Mg Tab.er.24h, 1,500 MG PO HS, (Reported) Nebivolol HCl 10 Mg Tab, 10 MG PO DAILY, (Reported) Olanzapine 10 Mg Tablet, 10 MG PO HS, (Reported) Prednisone 50 Mg Tab, 50 MG PO DAILY Prescribed by: EDNA KENT on 05/19/20 0904 Tramadol HCl 50 Mg Tablet, 50 MG PO PRN, (Reported) Ziprasidone 80 Mg Cap, 160 MG PO HS, (Reported) Patient Home Medication List Home Medication List Reviewed: Yes Review of Systems Review of Systems Constitutional: No no symptoms reported; see HPI; No chills, No diaphoresis, No dizziness, No fever, No malaise, No weakness, No weight gain, No weight loss, No other EENTM: No see HPI, No no symptoms reported, No ear discharge, No hearing loss, No ear pain, No blurred vision, No double vision, No eye pain, No tearing, No vision loss, No dental problems, No hoarseness, No mouth pain, No mouth swelling, No epistaxis, No nose congestion, No nose pain, No throat pain, No throat swelling, No other Respiratory: No no symptoms reported; see HPI, cough; No dyspnea on exertion, No hemoptysis, No orthopnea, No phlegm, No short of breath, No stridor, No wheezing, No other Cardiovascular: No no symptoms reported, No see HPI, No chest pain, No edema, No Hx of Intervention, No palpitations, No syncope, No vascular heart diseas, No other Gastrointestinal: No RUQ, No LUQ, No RLQ, No LLQ, No no symptoms reported, No see HPI, No abdominal pain, No constipation, No diarrhea, No dysphagia, No hematemesis, No heartburn, No jaundice, No loss of appetite, No melena, No nausea, No vomiting, No other Genitourinary: No no symptoms reported, No see HPI, No decreased output, No discharge, No dysuria, No frequency, No hematuria, No hesitancy, No incontinence, No nocturia, No pain, No other Musculoskeletal: No no symptoms reported, No see HPI, No back pain, No gout, No joint pain, No joint swelling, No muscle pain, No muscle stiffness, No muscle cramps, No muscle twitching, No muscle weakness, No neck pain, No other Skin: No no symptoms reported, No see HPI, No change in color, No change in hair/nails, No dryness, No hx of skin cancer, No lesions, No lumps, No pruritus, No rash, No other All Other Systems Reviewed Negative Unless Noted: Yes Past Wufcwrr-Yavtbo-Rxsude Hx Patient Social History Drug of Choice: marijuana-states last use 1-2 months ago Type Used: Cigarettes 2nd Hand Smoke Exposure: Yes Recent Foreign Travel: No Contact w/Someone Who Travel: No Recent Hopitalizations: No Seasonal Allergies Seasonal Allergies: No Past Medical History Surgeries: Yes Abdominal, Hysterectomy, Nephrectomy, Tonsillectomy, Tubal Ligation Respiratory: Yes Asthma, COPD, Emphysema Currently Using CPAP: No (Has CPAP for JUAN ANTONIO but not tolerating) Currently Using BIPAP: No Cardiac: Yes High Cholesterol, Hypertension 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 had recent axilla abscess) Recent Skin Changes Blood Disorders: Yes (HEP C) Adverse Reaction/Blood Tranf: No Physical Exam Vital Signs Vital Signs - First Documented 05/21/20 10:35 Temp 36.0 Pulse 85 Resp 26 B/P (MAP) 105/64 (78) Pulse Ox 91 O2 Delivery Room Air Capillary Refill : Height, Weight, BMI Height: 5'7.00" Weight: 224lbs. 0.0oz. 101.277228yo; 34.00 BMI Method:Actual General Appearance: No Apparent Distress, WD/WN Respiratory: Chest Non Tender, Lungs Clear, Normal Breath Sounds, No Accessory Muscle Use, No Respiratory Distress Cardiovascular: Regular Rate, Rhythm, No Edema, No Gallop, No JVD, No Murmur, Normal Peripheral Pulses Gastrointestinal: Normal Bowel Sounds, No Organomegaly, No Pulsatile Mass, Non Tender, Soft Extremity: Normal Capillary Refill, Normal Inspection, Normal Range of Motion, Non Tender, No Calf Tenderness, No Pedal Edema Neurologic/Psychiatric: Alert, Oriented x3, No Motor/Sensory Deficits, Normal Mood/Affect Skin: Normal Color, Warm/Dry Progress/Results/Core Measures Suspected Sepsis SIRS Temperature: Pulse: Respiratory Rate: Laboratory Tests 05/21/20 10:40: White Blood Count 16.0H Blood Pressure / Mean: Laboratory Tests 05/21/20 10:40: Creatinine 1.26, Platelet Count 215, Total Bilirubin 0.2 Results/Orders Lab Results Laboratory Tests Test 05/21/20 10:30 05/21/20 10:40 05/21/20 12:15 05/21/20 13:00 Range/Units Urine Color YELLOW Urine Clarity CLEAR Urine pH 6.0 5-9 Urine Specific [place] 1.020 1.016-1.022 Urine Protein NEGATIVE NEGATIVE Urine Glucose (UA) NEGATIVE NEGATIVE Urine Ketones NEGATIVE NEGATIVE Urine Nitrite NEGATIVE NEGATIVE Urine Bilirubin NEGATIVE NEGATIVE Urine Urobilinogen 0.2 < = 1.0 MG/DL Urine Leukocyte Esterase NEGATIVE NEGATIVE Urine RBC (Auto) NEGATIVE NEGATIVE Urine RBC NONE /HPF Urine WBC NONE /HPF Urine Squamous Epithelial Cells 2-5 /HPF Urine Crystals NONE /LPF Urine Bacteria NONE /HPF Urine Casts NONE /LPF Urine Mucus NEGATIVE /LPF Urine Culture Indicated NO White Blood Count 16.0 H 4.3-11.0 10^3/uL Red Blood Count 4.08 L 4.35-5.85 10^6/uL Hemoglobin 11.6 11.5-16.0 G/DL Hematocrit 36 35-52 % Mean Corpuscular Volume 88 80-99 FL Mean Corpuscular Hemoglobin 28 25-34 PG Mean Corpuscular Hemoglobin Concent 32 32-36 G/DL Red Cell Distribution Width 16.5 H 10.0-14.5 % Platelet Count 215 130-400 10^3/uL Mean Platelet Volume 10.7 H 7.4-10.4 FL Immature Granulocyte % (Auto) 1 % Neutrophils (%) (Auto) 89 H 42-75 % Lymphocytes (%) (Auto) 7 L 12-44 % Monocytes (%) (Auto) 4 0-12 % Eosinophils (%) (Auto) 0 0-10 % Basophils (%) (Auto) 0 0-10 % Neutrophils # (Auto) 14.2 H 1.8-7.8 X 10^3 Lymphocytes # (Auto) 1.1 1.0-4.0 X 10^3 Monocytes # (Auto) 0.6 0.0-1.0 X 10^3 Eosinophils # (Auto) 0.0 0.0-0.3 10^3/uL Basophils # (Auto) 0.0 0.0-0.1 10^3/uL Immature Granulocyte # (Auto) 0.1 0.0-0.1 10^3/uL Neutrophils % (Manual) 85 % Lymphocytes % (Manual) 8 % Monocytes % (Manual) 2 % Eosinophils % (Manual) 0 % Basophils % (Manual) 0 % Band Neutrophils 5 % Blood Morphology Comment NORMAL Sodium Level 131 L 135-145 MMOL/L Potassium Level 4.3 3.6-5.0 MMOL/L Chloride Level 94 L 98-107 MMOL/L Carbon Dioxide Level 18 L 21-32 MMOL/L Anion Gap 19 H 5-14 MMOL/L Blood Urea Nitrogen 27 H 7-18 MG/DL Creatinine 1.26 0.60-1.30 MG/DL Estimat Glomerular Filtration Rate 44 BUN/Creatinine Ratio 21 Glucose Level 654 *H 70-105 MG/DL Calcium Level 8.9 8.5-10.1 MG/DL Corrected Calcium 9.2 8.5-10.1 MG/DL Total Bilirubin 0.2 0.1-1.0 MG/DL Aspartate Amino Transf (AST/SGOT) 27 5-34 U/L Alanine Aminotransferase (ALT/SGPT) 50 0-55 U/L Alkaline Phosphatase 127 40-136 U/L Total Protein 6.7 6.4-8.2 GM/DL Albumin 3.6 3.2-4.5 GM/DL Blood Gas Puncture Site LT RAD Blood Gas Patient Temperature 36.0 Arterial Blood pH 7.38 7.37-7.43 Arterial Blood Partial Pressure CO2 33 L 35-45 MMHG Arterial Blood Partial Pressure O2 73 L 79-93 MMHG Arterial Blood HCO3 20 L 23-27 MMOL/L Arterial Blood Total CO2 20.5 L 21.0-31.0 MMOL/L Arterial Blood Oxygen Saturation 94 94-100 % Arterial Blood Base Excess -4.8 L -2.5-2.5 MMOL/L Edgard Test POS Blood Gas Ventilator Setting NO Blood Gas Inspired Oxygen 2L Glucometer 519 *H 70-110 MG/DL My Orders Orders - JOSE HOOVER MD Ed Iv/Invasive Line Start (05/21/20 10:38) Cbc With Automated Diff (05/21/20 10:38) Comprehensive Metabolic Panel (05/21/20 10:38) Urinalysis (05/21/20 10:38) Chest 1 View Ap/Pa Only (05/21/20 10:38) Ns Iv 1000 Ml (Sodium Chloride 0.9%) (05/21/20 10:38) Manual Differential (05/21/20 10:40) Albuterol/Ipra Inhalation Soln (Duoneb I (05/21/20 11:15) Svn Small Volume Nebulizer (05/21/20 11:02) Ns Iv 1000 Ml (Sodium Chloride 0.9%) (05/21/20 11:56) Insulin (Regular) Human (Novolin R (Per (05/21/20 12:00) Arterial Blood Gas (05/21/20 11:56) Benzonatate Capsule (Tessalon Perles) (05/21/20 12:33) Ceftriaxone For Iv Use (Rocephin For I (05/21/20 12:45) Medications Given in ED Current Medications Medications Dose Ordered Sig/Yoselyn Route Start Time Stop Time Status Last Admin Dose Admin Albuterol/ Ipratropium 3 ml ONCE ONCE INH 05/21/20 11:15 05/21/20 11:16 DC 05/21/20 11:36 3 ML Ceftriaxone Sodium 1000 mg/ Sterile Water 10 ml @ 200 mls/hr ONCE ONCE IV 05/21/20 12:45 05/21/20 12:47 DC 05/21/20 13:01 200 MLS/HR Insulin Human Regular 12 unit ONCE ONCE IV 05/21/20 12:00 05/21/20 12:01 DC 05/21/20 12:11 12 UNIT Vital Signs/I&O 05/21/20 10:35 Temp 36.0 Pulse 85 Resp 26 B/P (MAP) 105/64 (78) Pulse Ox 91 O2 Delivery Room Air Capillary Refill : Progress Note : Time: 13:25 Progress Note Patient bowl of her bolus herself 20 units of insulin prior to arrival we also give the patient 12 units of insulin IV here along with 2 L of fluid. Glucose check still greater than 500. I did discuss at length with patient about needing a place on insulin drip and transferred to [place] for admission. Patient states understanding but declines wishes to sign out AGAINST MEDICAL ADVICE. I did discuss with length with the about the patient with her about her diabetes and that he needs to get under control. Patient states she states understanding and would like to go home and then have her family drive her to [place] for possible admission. I advised against this and she states understanding but still wishes to sign out AGAINST MEDICAL ADVICE. I did discuss at length with Dr. Gregorio/nurse practitioner that was on normal duty for an with Dr. Gregorio. At [facility]. They state understanding of are aware that the patient might show up in the emergency department. Patient signing out AGAINST MEDICAL ADVICE. Departure Impression Primary Impression: Left against medical advice Additional Impressions: Hyperglycemia Diabetes mellitus Disposition: AGAINST MEDICAL ADVICE Condition: Stable Departure-Patient Inst. Ref[place]: [facility] [place] [facility] [place] Primary Care Physician ABHILASH NICE APRN (Family) Primary Care Physician JOSE HOOVER MD May 21, 2020 10:41
[2020-05-21 11:00] LABS: BASOPHILS % (AUTO) 0 % (0-10); EOSINOPHILS % (AUTO) 0 % (0-10); HEMATOCRIT 36 % (35-52); HEMOGLOBIN 11.6 G/DL (11.5-16.0); LYMPHOCYTES # (AUTO) 1.1 X 10^3 (1.0-4.0); LYMPHOCYTES % (AUTO) 7 % (12-44); MEAN CORPUSCULAR HEMOGLOBIN 28 PG (25-34); MEAN CORPUSCULAR HGB CONC 32 G/DL (32-36); MEAN CORPUSCULAR VOLUME 88 FL (80-99); MEAN PLATELET VOLUME 10.7 FL (7.4-10.4); MONOCYTES # (AUTO) 0.6 X 10^3 (0.0-1.0); MONOCYTES % (AUTO) 4 % (0-12); NEUTROPHILS # (AUTO) 14.2 X 10^3 (1.8-7.8); NEUTROPHILS % (AUTO) 89 % (42-75); PLATELET COUNT 215 10^3/uL (130-400)
[2020-05-21 11:02] LABS: BILIRUBIN,URINE NEGATIVE (NEGATIVE); CLARITY,URINE CLEAR; COLOR,URINE YELLOW; KETONES,URINE NEGATIVE (NEGATIVE); LEUKOCYTE ESTERASE ,URINE NEGATIVE (NEGATIVE); NITRITE,URINE NEGATIVE (NEGATIVE); PROTEIN,URINE NEGATIVE (NEGATIVE)
--- NOTE | 2020-05-21 11:13 | Diagnostic Imaging Report ---
INDICATION: Shortness of breath. COMPARISON: 05/19/2020 FINDINGS: The left subclavian line at the SVC is in good position. Bilateral perihilar and basilar mixed interstitial and airspace opacities have nearly resolved favoring reduction in edema. No pleural fluid. The heart size is within normal limits. No overt vascular congestion. IMPRESSION: Clearing of the chest, likely resolving edema. No adverse development or pneumothorax Dictated by: Dictated on workstation # [id number]
[2020-05-21] MEDS ORDERED: RT-ALBUTEROL/IPRATROPIUM 3 ML (DUONEB) VIAL INH ONE (11:15)
[2020-05-21 11:17] LABS: CREATININE SERUM 1.26 MG/DL (0.60-1.30); POTASSIUM 4.3 MMOL/L (3.6-5.0)
[2020-05-21 11:18] LABS: ALBUMIN 3.6 GM/DL (3.2-4.5); BILIRUBIN,TOTAL 0.2 MG/DL (0.1-1.0); CALCIUM 8.9 MG/DL (8.5-10.1); TOTAL PROTEIN 6.7 GM/DL (6.4-8.2)
[2020-05-21] MEDS ORDERED: inSUlin (REGULAR) HUMAN 1 UNIT/0.01 ML (CHARGE PER UNIT) IV ONE (12:00)
[2020-05-21 12:11] LABS: BAND NEUTROPHILS 5 %; BASOPHILS % (MANUAL) 0 %; EOSINOPHILS % (MANUAL) 0 %; LYMPHOCYTES % (MANUAL) 8 %; MONOCYTES % (MANUAL) 2 %; NEUTROPHILS % (MANUAL) 85 %; RBC MORPH NORMAL
[2020-05-21 12:27] LABS: ABG BASE EXCESS -4.8 MMOL/L (-2.5-2.5); ABG OXYGEN SATURATION 94 % (94-100); ABG PCO2 33 MMHG (35-45); ABG PH 7.38 (7.37-7.43); ABG PO2 73 MMHG (79-93); ABG TCO2 20.5 MMOL/L (21.0-31.0)
[2020-05-21 12:28] LABS: ALLENS TEST POS; INSPIRED O2 2L; VENTILATOR NO
[2020-05-21] MEDS ORDERED: BENZONATATE 100 MG (TESSALON) CAPSULE PO STA (12:33)
[2020-05-21] MEDS ORDERED: cefTRIAXone FOR IV USE 1,000 MG in WATER (STERILE) FOR INJECTION 10 ML IV ONE (12:45)
[2020-05-22 07:27] LABS: GLUCOSE, URINE (UA) 3+ (NEGATIVE)
[2020-05-24] MEDS ORDERED: ESCI20TA45 PO (10:16)
[2020-05-24] MEDS ORDERED: GABA-486 PO (10:16)
[2020-05-24] MEDS ORDERED: MIRA25TA PO (10:16)
[2020-05-24] MEDS ORDERED: FLUT1BLS12 INH (10:23)
[2020-05-24] MEDS ORDERED: RT-ALBUINH IH (10:23)
[2020-05-24] MEDS ORDERED: CHOL20003 PO (10:23)
[2020-05-24] MEDS ORDERED: FERR-84 PO (10:23)
[2020-05-24] MEDS ORDERED: MONT10TA21 PO (10:24)
[2020-05-24] MEDS ORDERED: LORA10TA76 PO (10:25)
[2020-05-24] MEDS ORDERED: L.AC1CAP6 PO (11:08)
[2020-05-24] MEDS ORDERED: MICO130A6 TP (11:08)
[2020-05-24] MEDS ORDERED: GLUC1CAP37 PO (12:16)
[2020-05-24] MEDS ORDERED: INSU100V16 (12:16)
[2020-05-25] MEDS ORDERED: PRD10T PO (07:09)
[2020-05-25] MEDS ORDERED: IPR14IN IH (07:09)
== END 2020-05-21 13:20 | disposition left against medical advice (07) ==
LOC: EDUNIT# 10:22 → ER FS 10:23
DX: E11.65 Type 2 diabetes mellitus with hyperglycemia (principal); J44.9 Chronic obstructive pulmonary disease, unspecified; E78.00 Pure hypercholesterolemia, unspecified; I10 Essential (primary) hypertension; F41.9 Anxiety disorder, unspecified; F31.9 Bipolar disorder, unspecified; Z96.41 Presence of insulin pump (external) (internal); Z20.828 Contact with and (suspected) exposure to other viral communicable diseases; Z85.51 Personal history of malignant neoplasm of bladder; Z85.528 Personal history of other malignant neoplasm of kidney; Z77.22 Contact with and (suspected) exposure to environmental tobacco smoke (acute) (chronic); Z88.8 Allergy status to other drugs, medicaments and biological substances; Z79.52 Long term (current) use of systemic steroids
CPT/HCPCS: 36415; 71045; 80053; 81000; 82805; 82962; 85007; 85027

== ENCOUNTER 2020-05-21 14:39 | Inpatient (IN) | payer MEDICARE, MEDICAID ==
[~2020-05-21] VITALS: Ht 170.1 cm; Wt 91.3 kg
[2020-05-21 15:26] LABS: POTASSIUM 3.8 MMOL/L (3.6-5.0)
[2020-05-21 15:28] LABS: CALCIUM 8.7 MG/DL (8.5-10.1)
[2020-05-21 15:32] LABS: CREATININE SERUM 1.68 MG/DL (0.60-1.30)
--- NOTE | 2020-05-21 15:33 | ED General ---
General Chief Complaint: Glucose Problems Stated Complaint: INSULIN Source of Information: Patient Exam Limitations: No Limitations History of Present Illness Date Seen by Provider: May 21, 2020 Time Seen by Provider: 15:29 Initial Comments 55-year-old female with reports of high blood sugar. She was at [facility] emergency room earlier today diagnosed with hyperglycemia. Plan was to admit her here but patient insisted on driving herself so the IV was removed and she drove herself here. She is a known diabetic, uses an insulin pump. Blood sugar at home was up to 571. She smokes and has a history of COPD but does not require oxygen at home. She was started on prednisone 50 mg a day 2 days ago for COPD exacerbatio n. This subsequently elevated her blood sugars. She had a bit of nausea and vomiting. No fever. She had a negative rapid Covid test at [place] today. She is feeling better from a respiratory standpoint than she did 2 days ago. Timing/Duration: 2-3 Days Severity: Moderate Associated Systoms: Cough Allergies and Home Medications Allergies Coded Allergies: hydroxyzine (Verified Allergy, Unknown, 01/23/20) Home Medications Atorvastatin Calcium 10 Mg Tablet, 10 MG PO HS, (Reported) Benzonatate 100 Mg Capsule, 100 MG PO Q8H PRN for COUGH Prescribed by: DEBBIE BASS on 11/20/19 1636 Cyclobenzaprine HCl 10 Mg Tablet, 10 MG PO Q8H PRN for SPASMS Prescribed by: EDNA KENT on 04/10/20 0953 Doxycycline Hyclate 100 Mg Tablet, 100 MG PO BID Prescribed by: EDNA KENT on 05/19/20 0917 Escitalopram Oxalate 10 Mg Tablet, 10 MG PO DAILY, (Reported) Ibuprofen 800 Mg Tablet, 800 MG PO Q8H PRN for PAIN-MILD, (Reported) Ibuprofen 800 Mg Tablet, 800 MG PO Q8H PRN for PAIN Prescribed by: EDNA KENT on 04/10/20 0953 Linagliptin 5 Mg Tablet, 5 MG PO DAILY, (Reported) Lisinopril 5 Mg Tablet, 5 MG PO DAILY, (Reported) Metformin HCl 750 Mg Tab.er.24h, 1,500 MG PO HS, (Reported) Nebivolol HCl 10 Mg Tab, 10 MG PO DAILY, (Reported) Olanzapine 10 Mg Tablet, 10 MG PO HS, (Reported) Prednisone 50 Mg Tab, 50 MG PO DAILY Prescribed by: EDNA KENT on 05/19/20 0904 Tramadol HCl 50 Mg Tablet, 50 MG PO PRN, (Reported) Ziprasidone 80 Mg Cap, 160 MG PO HS, (Reported) Patient Home Medication List Home Medication List Reviewed: Yes Review of Systems Review of Systems Constitutional: see HPI EENTM: see HPI Respiratory: see HPI, cough Cardiovascular: no symptoms reported Genitourinary: no symptoms reported Musculoskeletal: no symptoms reported Skin: no symptoms reported Psychiatric/Neurological: No Symptoms Reported Hematologic/Lymphatic: No Symptoms Reported Past Xcorqts-Cpmdjh-Uvwzrg Hx Patient Social History Drug of Choice: marijuana-states last use 1-2 months ago Type Used: Cigarettes 2nd Hand Smoke Exposure: Yes Recent Foreign Travel: No Contact w/Someone Who Travel: No Recent Hopitalizations: No Seasonal Allergies Seasonal Allergies: No Past Medical History Surgeries: Yes Abdominal, Hysterectomy, Nephrectomy, Tonsillectomy, Tubal Ligation Respiratory: Yes Asthma, COPD, Emphysema Currently Using CPAP: No (Has CPAP for JUAN ANTONIO but not tolerating) Currently Using BIPAP: No Cardiac: Yes High Cholesterol, Hypertension 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 had recent axilla abscess) Recent Skin Changes Blood Disorders: Yes (HEP C) Adverse Reaction/Blood Tranf: No Physical Exam Vital Signs Vital Signs - First Documented 05/21/20 14:54 Temp 36.6 Pulse 90 Resp 28 B/P (MAP) 121/64 (83) Pulse Ox 84 O2 Delivery Room Air Capillary Refill : Height, Weight, BMI Height: 5'7.00" Weight: 224lbs. 0.0oz. 101.101668zk; 35.00 BMI Method:Actual General Appearance: No Apparent Distress, WD/WN, Other (On arrival she has an oxygen saturation in the mid 80% range that increases to the low 90% range with 4 L of supplemental oxygen. She does not require oxygen at home.) Eyes: Bilateral Eye Normal Inspection, Bilateral Eye PERRL, Bilateral Eye EOMI Neck: Full Range of Motion, Normal Inspection Respiratory: No Accessory Muscle Use, No Respiratory Distress Cardiovascular: Regular Rate, Rhythm Gastrointestinal: Normal Bowel Sounds, Non Tender, Soft Neurologic/Psychiatric: Alert, Oriented x3 Skin: Normal Color, Warm/Dry Progress/Results/Core Measures Suspected Sepsis SIRS Temperature: Pulse: Respiratory Rate: Blood Pressure / Mean: Laboratory Tests 05/21/20 15:00: Creatinine 1.68H Results/Orders Lab Results Laboratory Tests Test 05/21/20 15:00 05/21/20 16:33 Range/Units D-Dimer 0.64 H 0.00-0.49 UG/ML Sodium Level 131 L 135-145 MMOL/L Potassium Level 3.8 3.6-5.0 MMOL/L Chloride Level 98 98-107 MMOL/L Carbon Dioxide Level 18 L 21-32 MMOL/L Anion Gap 15 H 5-14 MMOL/L Blood Urea Nitrogen 24 H 7-18 MG/DL Creatinine 1.68 H 0.60-1.30 MG/DL Estimat Glomerular Filtration Rate 32 BUN/Creatinine Ratio 14 Glucose Level 673 *H 70-105 MG/DL Calcium Level 8.7 8.5-10.1 MG/DL B-Type Natriuretic Peptide 23.4 <100.0 PG/ML Beta-Hydroxybutyrate (Chem panel) 0.11 0.00-0.27 MMOL/L Glucometer 547 *H 70-110 MG/DL My Orders Orders - EDGAR NEGRETE APRN Basic Metabolic Panel (05/21/20 14:43) Ed Iv/Invasive Line Start (05/21/20 14:43) BNP (05/21/20 15:08) Ekg Tracing (05/21/20 15:08) Fibrin Degradation Products (05/21/20 15:08) Beta Hydroxybutyrate (05/21/20 15:35) Insulin Regular Drip (Myxredlin 100 Unit (05/21/20 15:45) Insulin (Regular) Human (Novolin R (Per (05/21/20 15:45) Potassium Cl 10meq/50ml Ivpb (Kcl 10 Meq (05/21/20 15:45) Influenza A And B Antigens (05/21/20 15:40) Us Venous Lower Ext Mi (05/21/20 15:53) Medications Given in ED Current Medications Medications Dose Ordered Sig/Yoselyn Route Start Time Stop Time Status Last Admin Dose Admin Insulin Human Regular 10 unit ONCE ONCE IV 05/21/20 15:45 05/21/20 15:46 DC 05/21/20 16:21 10 UNIT Vital Signs/I&O 05/21/20 14:54 Temp 36.6 Pulse 90 Resp 28 B/P (MAP) 121/64 (83) Pulse Ox 84 O2 Delivery Room Air Capillary Refill : Diagnostic Imaging Diagonstic Imaging: Xray Comments NAME: DOMINIQUE PINEDA MED REC#: [id number] PT STATUS: REG ER : 1965 PHYSICIAN: EDGAR NEGRETE APRN ADMIT DATE: 05/21/20/ER Signed Date of Exam:05/21/20 US VENOUS LOWER EXT MI PROCEDURE: US Venous Lower Ext Mi. TECHNIQUE: Multiple real-time grayscale images were obtained over the lower extremities in various projections, bilaterally. Additional duplex Doppler and color Doppler images were also obtained. INDICATION: Shortness of breath, elevated d-dimer The veins of the lower extremities have good color filling and compressibility. There is phasic flow and a normal response to augmentation. IMPRESSION: Negative venous Doppler of the lower extremities Dictated by: Dictated on workstation # [id number] Dict: 05/21/20 1633 Trans: 05/21/20 1634 TB [id number] Interpreted by: ELDER OCONNELL MD Electronically signed by: ELDER OCONNELL MD 05/21/20 1634 Departure Communication (Admissions) Time/Spoke to Admitting Phy: 16:[address] Harden, will continue her home fluticasone inhaler, put her on insulin/DKA protocol stop the oral steroids continue the insulin drip. 1535-I did call [facility] records and they confirmed that she did have a negative Covid swab today, this was the rapid swab. However the provider has not signed off on it yet so they are unable to fax me the results but she states it was negative. Impression Primary Impression: COPD with exacerbation Additional Impressions: Hypoxia Hyperglycemia Disposition: ADMITTED INPATIENT Condition: Stable Admissions Decision to Admit Reason: Admit from ER (General) Decision to Admit/Date: May 21, 2020 Time/Decision to Admit Time: 15:33 Departure-Patient Inst. Ref[facility]: [facility] [place] Primary Care Physician ABHILASH NICE APRN (Family) Primary Care Physician EDGAR NEGRETE APRN May 21, 2020 15:33
[2020-05-21] MEDS ORDERED: POTASSIUM CL 10MEQ/50ML IVPB 50 ML IV SCH (15:45)
[2020-05-21] MEDS ORDERED: inSUlin (REGULAR) HUMAN 1 UNIT/0.01 ML (CHARGE PER UNIT) IV ONE (15:45)
--- NOTE | 2020-05-21 16:36 | Diagnostic Imaging Report ---
PROCEDURE: US Venous Lower Ext Yony. TECHNIQUE: Multiple real-time grayscale images were obtained over the lower extremities in various projections, bilaterally. Additional duplex Doppler and color Doppler images were also obtained. INDICATION: Shortness of breath, elevated d-dimer The veins of the lower extremities have good color filling and compressibility. There is phasic flow and a normal response to augmentation. IMPRESSION: Negative venous Doppler of the lower extremities Dictated by: Dictated on workstation # [id number]
[2020-05-21] MEDS ORDERED: APAP 300 MG/CODEINE 30 MG (TYLENOL #3) TAB PO ONE (17:30)
--- NOTE | 2020-05-21 19:03 | NUR ---
unable to scan second bag of potassium. Both bags infused.
--- NOTE | 2020-05-21 19:05 | NUR ---
Report from Claudine Ayala RN.
[2020-05-21] MEDS ORDERED: NS IV 1000 ML 1,000 ML IV SCH (19:43)
[2020-05-21] MEDS ORDERED: CATHETER FLUSH 10 ML SYR IV PRN (19:45)
[2020-05-21] MEDS ORDERED: D5 1/2 NS 1000 ML IV SOLUTION 1,000 ML IV SCH (19:45)
[2020-05-21] MEDS ORDERED: ONDANSETRON 4 MG/2 ML (SDV) Z0FRAN IV PRN (19:45)
[2020-05-21 20:02] VITALS: BP 122/76
[2020-05-21] MEDS: POTASSIUM CL 10MEQ/50ML IVPB 50 ML IV SCH ×2 (20:34→21:55)
[2020-05-21] MEDS: 1/2 NS IV SOLUTION 1,000 ML IV SCH (20:35)
[2020-05-21] MEDS ORDERED: cefTRIAXone 1,000 MG IV (ROCEPHIN) VIAL ONE (20:57)
[2020-05-21] MEDS ORDERED: WATER (STERILE) FOR INJECTION 10 ML ONE (20:57)
[2020-05-21] MEDS: ENOXAPARIN 40 MG/0.4 ML (LOVENOX) SYR SC SCH (21:08)
[2020-05-21] MEDS: cefTRIAXone 1,000 MG/SWFI 10 ML IV PUSH IV SCH ×2 (21:09)
[2020-05-21 21:30] VITALS: BP 122/75
[2020-05-21 23:01] LABS: BASOPHILS % (AUTO) 0 % (0-10); EOSINOPHILS # (AUTO) 0.1 10^3/uL (0.0-0.3); EOSINOPHILS % (AUTO) 1 % (0-10); HEMATOCRIT 35 % (35-52); HEMOGLOBIN 11.1 g/dL (11.5-16.0); LYMPHOCYTES # (AUTO) 2.3 10^3/uL (1.0-4.0); LYMPHOCYTES % (AUTO) 16 % (12-44); MEAN CORPUSCULAR HEMOGLOBIN 29 pg (25-34); MEAN CORPUSCULAR HGB CONC 32 g/dL (32-36); MEAN CORPUSCULAR VOLUME 90 fL (80-99); MEAN PLATELET VOLUME 10.5 fL (9.0-12.2); MONOCYTES # (AUTO) 0.5 10^3/uL (0.0-1.0); MONOCYTES % (AUTO) 3 % (0-12); NEUTROPHILS # (AUTO) 11.1 10^3/uL (1.8-7.8); NEUTROPHILS % (AUTO) 79 % (42-75); PLATELET COUNT 184 10^3/uL (130-400); WHITE BLOOD COUNT 14.1 10^3/uL (4.3-11.0)
[2020-05-21 23:11] LABS: POTASSIUM 3.7 MMOL/L (3.6-5.0)
[2020-05-21 23:13] LABS: CALCIUM 8.4 MG/DL (8.5-10.1)
[2020-05-21 23:17] LABS: CREATININE SERUM 1.17 MG/DL (0.60-1.30)
[2020-05-22] VITALS (9 sets, daily range): BP systolic 98–132; BP diastolic 64–85
[2020-05-22] MEDS: ADVAIR HFA 115/21 MCG INHALER 8 GM IH SCH ×3 (00:09→18:54)
[2020-05-22] MEDS: RT-ALBUTEROL/IPRATROPIUM 3 ML (DUONEB) VIAL INH SCH ×6 (00:30→21:42)
[2020-05-22] MEDS: 1/2 NS IV SOLUTION 1,000 ML IV SCH (00:37)
--- NOTE | 2020-05-22 00:50 | NUR ---
NOTIFIED DR RANGEL OF PT LABS AND RESPIRATORY STATUS-PT BREATHING 30-WHEEZES AND CRACKLES UPON AUSCULTATION-O2 SATS 91% ON 4L O2 NC. NEW ORDERS RECEIVED
[2020-05-22] MEDS ORDERED: FUROSEMIDE 40 MG/4 ML INJ (LASIX) ONE (00:54)
[2020-05-22] MEDS ORDERED: FUROSEMIDE 40 MG/4 ML INJ (LASIX) IVP ONE (01:15)
[2020-05-22 01:43] LABS: BASOPHILS % (AUTO) 0 % (0-10); EOSINOPHILS # (AUTO) 0.1 10^3/uL (0.0-0.3); EOSINOPHILS % (AUTO) 1 % (0-10); HEMATOCRIT 38 % (35-52); LYMPHOCYTES # (AUTO) 2.5 10^3/uL (1.0-4.0); LYMPHOCYTES % (AUTO) 19 % (12-44); MEAN CORPUSCULAR HEMOGLOBIN 28 pg (25-34); MEAN CORPUSCULAR HGB CONC 32 g/dL (32-36); MEAN CORPUSCULAR VOLUME 89 fL (80-99); MEAN PLATELET VOLUME 10.7 fL (9.0-12.2); MONOCYTES # (AUTO) 0.5 10^3/uL (0.0-1.0); MONOCYTES % (AUTO) 4 % (0-12); NEUTROPHILS # (AUTO) 10.2 10^3/uL (1.8-7.8); NEUTROPHILS % (AUTO) 76 % (42-75); PLATELET COUNT 207 10^3/uL (130-400); WHITE BLOOD COUNT 13.4 10^3/uL (4.3-11.0)
[2020-05-22 01:47] LABS: ALBUMIN 3.5 GM/DL (3.2-4.5)
[2020-05-22 01:49] LABS: CALCIUM 8.7 MG/DL (8.5-10.1)
[2020-05-22 01:50] LABS: TOTAL PROTEIN 6.6 GM/DL (6.4-8.2)
[2020-05-22 01:52] LABS: BILIRUBIN,TOTAL 0.2 MG/DL (0.1-1.0)
[2020-05-22 01:54] LABS: CREATININE SERUM 1.15 MG/DL (0.60-1.30)
[2020-05-22] MEDS ORDERED: inSUlin ASPART (NovoLOG) 1 UNIT/0.01 ML (CHARGE PER UNIT) SC SCH ×2 (04:00→08:00)
--- NOTE | 2020-05-22 05:08 | Pulmonary Consultation ---
History of Present Illness History of Present Illness Date Seen by Provider: May 22, 2020 Time Seen by Provider: 05:03 Date of Admission Allergies and Home Medications Allergies Coded Allergies: hydroxyzine (Verified Allergy, Unknown, 01/23/20) Home Medications Atorvastatin Calcium 10 Mg Tablet, 10 MG PO HS, (Reported) Benzonatate 100 Mg Capsule, 100 MG PO Q8H PRN for COUGH Prescribed by: DEBBIE BASS on 11/20/19 1636 Cyclobenzaprine HCl 10 Mg Tablet, 10 MG PO Q8H PRN for SPASMS Prescribed by: EDNA KENT on 04/10/20 0953 Doxycycline Hyclate 100 Mg Tablet, 100 MG PO BID Prescribed by: EDNA KENT on 05/19/20 0917 Escitalopram Oxalate 10 Mg Tablet, 10 MG PO DAILY, (Reported) Ibuprofen 800 Mg Tablet, 800 MG PO Q8H PRN for PAIN-MILD, (Reported) Ibuprofen 800 Mg Tablet, 800 MG PO Q8H PRN for PAIN Prescribed by: EDNA KENT on 04/10/20 0953 Linagliptin 5 Mg Tablet, 5 MG PO DAILY, (Reported) Lisinopril 5 Mg Tablet, 5 MG PO DAILY, (Reported) Metformin HCl 750 Mg Tab.er.24h, 1,500 MG PO HS, (Reported) Nebivolol HCl 10 Mg Tab, 10 MG PO DAILY, (Reported) Olanzapine 10 Mg Tablet, 10 MG PO HS, (Reported) Prednisone 50 Mg Tab, 50 MG PO DAILY Prescribed by: EDNA KENT on 05/19/20 0904 Tramadol HCl 50 Mg Tablet, 50 MG PO PRN, (Reported) Ziprasidone 80 Mg Cap, 160 MG PO HS, (Reported) Past Xyepxbs-Plnzcv-Fsmwxf Hx Patient Social History Alcohol Use: Denies Use Recreational Drug Use: Yes Drug of Choice: marijuana-states last use 1-2 months ago Smoking Status: Current Everyday Smoker Type Used: Cigarettes 2nd Hand Smoke Exposure: Yes Recent Foreign Travel: No Contact w/Someone Who Travel: No Recent Infectious Disease Expo: No Recent Hopitalizations: No Immunizations Up To Date Date of Pneumonia Vaccine: Apr 15, 2020 Date of Influenza Vaccine: Mar 16, 2020 Seasonal Allergies Seasonal Allergies: No Past Medical History Surgeries: Yes Abdominal, Hysterectomy, Nephrectomy, Tonsillectomy, Tubal Ligation Respiratory: Yes Asthma, COPD, Emphysema Currently Using CPAP: No (Has CPAP for JUAN ANTONIO but not tolerating) Currently Using BIPAP: No Cardiac: Yes High Cholesterol, Hypertension Neurological: No ARMATURE TESTER History: Hysterectomy Genitourinary: Yes (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 had recent axilla abscess) Recent Skin Changes Blood Disorders: Yes (HEP C) Adverse Reaction/Blood Tranf: No Review of Systems Time Seen by Provider: 05:08 Sepsis Event Evaluation Height, Weight, BMI Height: 5'7.00" Weight: 224lbs. 0.0oz. 101.646686yu; 35.63 BMI Method:Actual Exam Exam Vital Signs Date Time Temp Pulse Resp B/P (MAP) Pulse Ox O2 Delivery O2 Flow Rate FiO2 05/22/20 03:51 85 05/22/20 03:41 37.0 83 24 116/75 (89) 94 Nasal Cannula 4.00 05/22/20 00:31 94 Nasal Cannula 3.00 05/22/20 00:28 36.7 79 24 124/79 (94) 91 Nasal Cannula 4.00 05/22/20 00:10 37.3 80 94 05/21/20 21:45 93 Nasal Cannula 4.00 05/21/20 21:30 36.3 80 25 122/75 (91) 93 Nasal Cannula 4.00 05/21/20 20:02 36.6 80 24 122/76 93 Nasal Cannula 4.00 05/21/20 19:20 83 16 132/82 95 Nasal Cannula 4.00 05/21/20 14:54 36.6 90 28 121/64 (83) 84 Room Air I & O 05/22/20 07:00 Intake Total 500 ml Output Total 3350 ml Balance -2850 ml Height & Weight Height: 5'7.00" Weight: 224lbs. 0.0oz. 101.250820bo; 35.63 BMI Method:Actual General Appearance: No Apparent Distress, WD/WN, Other (On arrival she has an oxygen saturation in the mid 80% range that increases to the low 90% range with 4 L of supplemental oxygen. She does not require oxygen at home.) Neck: Full Range of Motion, Normal Inspection Respiratory: No Accessory Muscle Use, No Respiratory Distress, Crackles, Decreased Breath Sounds, Wheezing Cardiovascular: Regular Rate, Rhythm Capillary Refill: Less Than 3 Seconds Neurologic/Psychiatric: Alert, Oriented x3 Skin: Normal Color, Warm/Dry Results Lab Laboratory Tests 05/21/20 15:00 05/21/20 22:55 05/22/20 01:24 Assessment/Plan Assessment/Plan Acute on Chronic Respiratory failure -Repeat ABG COPDAE with hypoxia -Advair -Q4 Duoneb -Negative recent COVID -Add Solumedrol -Negative Influenza -Check ABG and CXR. -Negative influenza DKA - secondary to recent steroids -Insulin gtt is now off LINDA TOLBERT DO May 22, 2020 05:08
[2020-05-22 05:53] LABS: ABG BASE EXCESS 1.1 MMOL/L (-2.5-2.5); ABG OXYGEN SATURATION 92 % (94-100); ABG PCO2 40 MMHG (35-45); ABG PH 7.42 (7.37-7.43); ABG PO2 67 MMHG (79-93); ABG TCO2 26.6 MMOL/L (21.0-31.0)
[2020-05-22 06:12] LABS: ALLENS TEST POSITIVE; INSPIRED O2 4; PATIENT TEMP 36; VENTILATOR NO
[2020-05-22] MEDS ORDERED: methylPREDNISolone 40 MG/ML (Solu-MEDROL) VIAL ONE (06:25)
[2020-05-22] MEDS: methylPREDNISolone 40 MG/ML (Solu-MEDROL) VIAL IV SCH ×3 (06:27→17:49)
[2020-05-22] MEDS ORDERED: RT-ALBUTEROL/IPRATROPIUM 3 ML (DUONEB) VIAL INH PRN (06:30)
[2020-05-22 08:41] LABS: POTASSIUM 4.3 MMOL/L (3.6-5.0)
[2020-05-22 08:42] LABS: CALCIUM 8.7 MG/DL (8.5-10.1)
[2020-05-22 08:46] LABS: CREATININE SERUM 1.13 MG/DL (0.60-1.30)
--- NOTE | 2020-05-22 08:50 | History & Physical-Hospitalist ---
History of Present Illness HPI/Chief Complaint 55-year-old female with reports of high blood sugar. She was at [facility] emergency room earlier today diagnosed with hyperglycemia. Plan was to admit her here but patient insisted on driving herself so the IV was removed and she drove herself here. She is a known diabetic, uses an insulin pump. Blood sugar at home was up to 571. She smokes and has a history of COPD but does not require oxygen at home. She was started on prednisone 50 mg a day 2 days ago for COPD exacerbation. This subsequently elevated her blood sugars. She had a bit of nausea and vomiting. No fever. She had a negative rapid Covid test at [place] today. She is feeling better from a respiratory standpoint than she did 2 days ago. Upon my arrival patient was sleeping soundly with no evidence respiratory distress. She did have audible wheezing noted. She reports feeling less short of breath with loose nonproductive cough. Influenza for a and B were negative and rapid Covid was negative reports her symptoms of shortness of breath began about 10 days ago. She has not been able to smoke nearly as much and it been trying to cut back with nicotine patches and gum down the cigarette or 2 per day. She denies night sweats chills fever with minimal nonpurulent sputum production. She denies dysuria but has been having increased urinary frequency and polydipsia after steroid administration. She has no past history of DKA. She has no insulin pump that she reports compliance with although she stated that her last A1c was in the low 11 range. Date Seen 05/22/20 Time Seen by a Provider: 07:30 Attending Physician Malena Rangel MD [facility] Referring Physician Date of Admission May 21, 2020 at 18:34 Home Medications & Allergies Home Medications Reviewed patient Home Medication Reconciliation performed by pharmacy medication reconciliations remanufacturing technician and/or nursing. Patients Allergies have been reviewed. Allergies Allergies Coded Allergies hydroxyzine (Verified Allergy, Unknown, 01/23/20) Past Jmsqbuy-Qhdagp-Bblorp Hx Past Med/Social Hx: Reviewed and Corrections made Patient Social History Alcohol Use: Denies Use Recreational Drug Use: Yes Drug of Choice: marijuana-states last use 1-2 months ago Smoking Status: Current Everyday Smoker Type Used: Cigarettes 2nd Hand Smoke Exposure: Yes Recent Foreign Travel: No Contact w/other who traveled: No Recent Hopitalizations: No Recent Infectious Disease Expo: No Immunizations Up To Date Date of Pneumonia Vaccine: Apr 15, 2020 Date of Influenza Vaccine: Mar 16, 2020 Seasonal Allergies Seasonal Allergies: No Past Medical History Surgeries: Abdominal, Hysterectomy, Nephrectomy, Tonsillectomy, Tubal Ligation Currently Using CPAP: No (Has CPAP for JUAN ANTONIO but not tolerating) Currently Using BIPAP: No Cardiac: High Cholesterol, Hypertension Hysterectomy Genitourinary: Kidney Infection, Kidney Stones Gastrointestinal: Hepatitis Endocrine: Diabetes, Insulin dep Cancer: Bladder, Kidney Did You Recieve Any Treatments: Yes What Type of Treatment Did You: Chemotherapy, Surgical Intervention Psychosocial: Sleep Difficulties, Anxiety, Bipolar, Depression Skin/Integumentary: Recent Skin Changes History of Blood Disorders: Yes (HEP C) Adverse Reaction to Blood Blevins: No Review of Systems Constitutional: see HPI Physical Exam Physical Exam Vital Signs Vital Signs - First Documented 05/21/20 05/21/20 14:54 19:20 Temp 36.6 Pulse 90 Resp 28 B/P (MAP) 121/64 (83) Pulse Ox 84 O2 Delivery Room Air O2 Flow Rate 4.00 Capillary Refill : Less Than 3 Seconds Height, Weight, BMI Height: 5'7.00" Weight: 224lbs. 0.0oz. 101.256877wo; 35.63 BMI Method:Actual General Appearance: No Apparent Distress, Obese Respiratory: No Accessory Muscle Use, No Respiratory Distress, Other (coarse inspiratory rales and expiratory wheezing throughout breath sounds equal bilateral) Cardiovascular: No Edema, Other (regular rate and rhythm heart tones difficult to hear over respiratory noises no murmurs appreciated) Gastrointestinal: Normal Bowel Sounds, No Organomegaly, No Pulsatile Mass, Non Tender, Soft Extremity: Normal Inspection, Normal Range of Motion, Non Tender, No Calf Tenderness, No Pedal Edema Results Results/Procedures Labs Laboratory Tests 05/21/20 15:00 05/21/20 22:55 05/22/20 01:24 05/22/20 08:18 Patient resulted labs reviewed. Assessment/Plan Admission Diagnosis Acute COPD exacerbation aggravated by ongoing smoking. Continue anti- inflammatory therapy and IV antibiotics for now in addition to bronchodilator therapy. Poorly controlled type II diabetes mellitus with hyperglycemia aggravated by steroids no evidence for DKA discussed the importance of adhering to a very low glycemic diet and will significantly increase insulin currently Levemir 30 units twice daily and 30 units NovoLog before meals with blood sugar monitoring. This is 3-4 times the patient's normal dose and still may not be enough while on steroids. Admission Status: Inpatient Order (span 2 midnights) Reason for Inpatient Admission: See admission diagnosis Critical Care Critically Ill Patient Clinical Quality Measures DVT/VTE Risk/Contraindication: Risk Factor Score Per Nursin RFS Level Per Nursing on Admit: 4+=Very High MALENA RANGEL MD May 22, 2020 08:50
[2020-05-22] MEDS ORDERED: ZIPRASIDONE 40 MG (GEODON) CAP PO ONE (09:00)
[2020-05-22] MEDS: inSUlin ASPART (NovoLOG) 1 UNIT/0.01 ML (CHARGE PER UNIT) SC SCH ×3 (09:07→17:49)
--- NOTE | 2020-05-22 10:17 | Diagnostic Imaging Report ---
INDICATION: Hyperglycemia, shortness of air. TECHNIQUE: Single view chest 5:45 AM. CORRELATION STUDY: 05/21/2020 FINDINGS: Left-sided Aluakw-N-Hpfo catheter tip over the SVC. Heart size and mediastinum are stable. Abnormal pulmonary opacities particularly at the lung bases, right greater than left, adversely changed. IMPRESSION: 1. Abnormal bilateral pulmonary opacities particularly at the lung bases, right greater than left. Does raise concern for pneumonia versus areas of edema. Follow-up imaging recommended. Dictated by: Dictated on workstation # [id number]
[2020-05-22] MEDS: ZIPRASIDONE 40 MG (GEODON) CAP PO SCH (17:49)
[2020-05-22] MEDS ORDERED: cefTRIAXone 1,000 MG IV (ROCEPHIN) VIAL ONE (19:42)
[2020-05-22] MEDS ORDERED: WATER (STERILE) FOR INJECTION 10 ML ONE (19:42)
[2020-05-22] MEDS ORDERED: polyethylene glycoL POWDER 17 GM (MIRALAX) PACK ONE (19:44)
[2020-05-22] MEDS: ENOXAPARIN 40 MG/0.4 ML (LOVENOX) SYR SC SCH (19:51)
[2020-05-22] MEDS: cefTRIAXone 1,000 MG/SWFI 10 ML IV PUSH IV SCH ×2 (19:52)
[2020-05-22] MEDS: polyethylene glycoL POWDER 17 GM (MIRALAX) PACK PO SCH (19:52)
[2020-05-23] MEDS: methylPREDNISolone 40 MG/ML (Solu-MEDROL) VIAL IV SCH ×3 (00:19→20:41)
[2020-05-23] MEDS: inSUlin ASPART (NovoLOG) 1 UNIT/0.01 ML (CHARGE PER UNIT) SC SCH ×3 (06:31→17:16)
[2020-05-23] MEDS: RT-ALBUTEROL/IPRATROPIUM 3 ML (DUONEB) VIAL INH SCH ×5 (07:17→21:34)
[2020-05-23 08:00] VITALS: BP 144/79
[2020-05-23] MEDS: polyethylene glycoL POWDER 17 GM (MIRALAX) PACK PO SCH ×2 (08:42→20:42)
[2020-05-23] MEDS: ZIPRASIDONE 40 MG (GEODON) CAP PO SCH ×2 (08:42→17:16)
[2020-05-23] MEDS: ADVAIR HFA 115/21 MCG INHALER 8 GM IH SCH ×2 (10:52→19:35)
--- NOTE | 2020-05-23 10:59 | Progress Note - Hospitalist ---
Subjective HPI/CC On Admission Date Seen by Provider: May 23, 2020 Time Seen by Provider: 07:30 55-year-old female with reports of high blood sugar. She was at [facility] emergency room earlier today diagnosed with hyperglycemia. Plan was to admit her here but patient insisted on driving herself so the IV was removed and she drove herself here. She is a known diabetic, uses an insulin pump. Blood sugar at home was up to 571. She smokes and has a history of COPD but does not require oxygen at home. She was started on prednisone 50 mg a day 2 days ago for COPD exacerbation. This subsequently elevated her blood sugars. She had a bit of nausea and vomiting. No fever. She had a negative rapid Covid test at [place] today. She is feeling better from a respiratory standpoint than she did 2 days ago. Upon my arrival patient was sleeping soundly with no evidence respiratory distress. She did have audible wheezing noted. She reports feeling less short of breath with loose nonproductive cough. Influenza for a and B were negative and rapid Covid was negative reports her symptoms of shortness of breath began about 10 days ago. She has not been able to smoke nearly as much and it been trying to cut back with nicotine patches and gum down the cigarette or 2 per day. She denies night sweats chills fever with minimal nonpurulent sputum production. She denies dysuria but has been having increased urinary frequency and polydipsia after steroid administration. She has no past history of DKA. She has no insulin pump that she reports compliance with although she stated that her last A1c was in the low 11 range. Subjective/Events-last exam Patient reports feeling better this morning with less shortness of breath cough decreasing clear sputum only reported. Less chest tightness and shortness of breath. Objective Exam Vital Signs Vital Signs Date Time Temp Pulse Resp B/P (MAP) Pulse Ox O2 Delivery O2 Flow Rate FiO2 05/23/20 10:52 92 Nasal Cannula 2.00 05/23/20 08:00 36.4 90 18 144/79 (100) Capillary Refill : Less Than 3 Seconds General Appearance: No Apparent Distress Respiratory: No Accessory Muscle Use, No Respiratory Distress, Other (Increased air movement coarse breath sounds and diffuse wheezing noted throughout no focal findings appreciated) Cardiovascular: Regular Rate, Rhythm, No Edema, No Gallop, No JVD, No Murmur, Normal Peripheral Pulses Results/Procedures Lab Patient resulted labs reviewed. Assessment/Plan Assessment and Plan Assess & Plan/Chief Complaint Acute COPD exacerbation aggravated by ongoing smoking. Continue anti- inflammatory therapy and IV antibiotics for now in addition to bronchodilator therapy. Poorly controlled type II diabetes mellitus with hyperglycemia aggravated by steroids no evidence for DKA discussed the importance of adhering to a very low glycemic diet and will significantly increase insulin currently Levemir 30 units twice daily and 30 units NovoLog before mealsWith improving blood sugars continue. With improved air movement will decrease IV Solu-Medrol to 40 mg twice daily. As steroids are tapered further will need to decrease insulin. Critical Care Critically Ill Patient Clinical Quality Measures DVT/VTE Risk/Contraindication: Risk Factor Score Per Nursin RFS Level Per Nursing on Admit: 4+=Very High MALENA RANGEL MD May 23, 2020 10:59
[2020-05-23 15:23] VITALS: BP 137/87
[2020-05-23] MEDS: guaiFENesin/DM (ROBITUSSIN DM) 10 ML UDC PO PRN ×2 (16:36→20:41)
[2020-05-23] MEDS ORDERED: WATER (STERILE) FOR INJECTION 10 ML ONE (20:19)
[2020-05-23] MEDS ORDERED: cefTRIAXone 1,000 MG IV (ROCEPHIN) VIAL ONE (20:19)
[2020-05-23] MEDS: cefTRIAXone 1,000 MG/SWFI 10 ML IV PUSH IV SCH ×2 (20:41)
[2020-05-23] MEDS: ENOXAPARIN 40 MG/0.4 ML (LOVENOX) SYR SC SCH (20:41)
[2020-05-23] MEDS ORDERED: MELATONIN 10 MG TABLET PO SCH (21:00)
[2020-05-24 00:27] VITALS: BP 122/78
[2020-05-24] MEDS: RT-ALBUTEROL/IPRATROPIUM 3 ML (DUONEB) VIAL INH SCH ×6 (02:26→22:15)
[2020-05-24 04:19] LABS: BASOPHILS % (AUTO) 0 % (0-10); EOSINOPHILS % (AUTO) 0 % (0-10); HEMATOCRIT 38 % (35-52); HEMOGLOBIN 11.8 g/dL (11.5-16.0); LYMPHOCYTES # (AUTO) 1.6 10^3/uL (1.0-4.0); LYMPHOCYTES % (AUTO) 13 % (12-44); MEAN CORPUSCULAR HEMOGLOBIN 28 pg (25-34); MEAN CORPUSCULAR HGB CONC 31 g/dL (32-36); MEAN CORPUSCULAR VOLUME 90 fL (80-99); MEAN PLATELET VOLUME 10.4 fL (9.0-12.2); MONOCYTES # (AUTO) 0.4 10^3/uL (0.0-1.0); MONOCYTES % (AUTO) 3 % (0-12); NEUTROPHILS # (AUTO) 10.5 10^3/uL (1.8-7.8); NEUTROPHILS % (AUTO) 83 % (42-75); PLATELET COUNT 215 10^3/uL (130-400); WHITE BLOOD COUNT 12.8 10^3/uL (4.3-11.0)
[2020-05-24 04:25] LABS: POTASSIUM 4.9 MMOL/L (3.6-5.0)
[2020-05-24 04:26] LABS: CALCIUM 8.7 MG/DL (8.5-10.1)
[2020-05-24 04:31] LABS: CREATININE SERUM 1.19 MG/DL (0.60-1.30)
[2020-05-24] MEDS: guaiFENesin/DM (ROBITUSSIN DM) 10 ML UDC PO PRN ×2 (05:23→10:23)
[2020-05-24] MEDS: inSUlin ASPART (NovoLOG) 1 UNIT/0.01 ML (CHARGE PER UNIT) SC SCH ×3 (06:52→17:30)
[2020-05-24] MEDS: ADVAIR HFA 115/21 MCG INHALER 8 GM IH SCH ×2 (07:50→22:16)
[2020-05-24 08:00] VITALS: BP 132/81
[2020-05-24] MEDS: ZIPRASIDONE 40 MG (GEODON) CAP PO SCH ×2 (08:57→17:28)
[2020-05-24] MEDS: polyethylene glycoL POWDER 17 GM (MIRALAX) PACK PO SCH ×2 (08:57→19:51)
[2020-05-24] MEDS: methylPREDNISolone 40 MG/ML (Solu-MEDROL) VIAL IV SCH (08:57)
[2020-05-24] MEDS ORDERED: ESCI20TA45 PO ×2 (10:16)
[2020-05-24] MEDS ORDERED: MIRA25TA PO ×2 (10:16)
[2020-05-24] MEDS ORDERED: GABA-486 PO ×2 (10:16)
[2020-05-24] MEDS ORDERED: CHOL20003 PO ×2 (10:23)
[2020-05-24] MEDS ORDERED: FERR-84 PO ×2 (10:23)
[2020-05-24] MEDS ORDERED: FLUT1BLS12 INH ×2 (10:23)
[2020-05-24] MEDS ORDERED: RT-ALBUINH IH ×2 (10:23)
[2020-05-24] MEDS ORDERED: MONT10TA21 PO ×2 (10:24)
[2020-05-24] MEDS ORDERED: LORA10TA76 PO ×2 (10:25)
[2020-05-24] MEDS ORDERED: MICO130A6 TP ×2 (11:08)
[2020-05-24] MEDS ORDERED: L.AC1CAP6 PO ×2 (11:08)
[2020-05-24] MEDS ORDERED: GLUC1CAP37 PO ×2 (12:16)
[2020-05-24] MEDS ORDERED: INSU100V16 ×2 (12:16)
--- NOTE | 2020-05-24 14:01 | Progress Note ---
Subjective Subjective/Events-last exam Afebrile, states she is feeling a lot better and hopeful to go home soon. She does not usually use supplemental oxygen at home. She thinks she needs to get her insulin pump restarted, she believes her basal rate is 1.6. Objective Exam Last Set of Vital Signs Vital Signs Date Time Temp Pulse Resp B/P (MAP) Pulse Ox O2 Delivery O2 Flow Rate FiO2 05/24/20 11:06 91 Nasal Cannula 1.00 05/24/20 08:00 36.4 94 18 132/81 (98) Capillary Refill : Less Than 3 Seconds I&O Intake and Output 05/24/20 00:00 Intake Total 2840 ml Output Total 3950 ml Balance -1110 ml Intake Oral 2830 ml IV Total 10 ml Output Urine Total 3950 ml # Voids 5 # Bowel Movements 4 General: Alert, No Acute Distress Lungs: Other (end expiratory wheeze at bases) Heart: Regular Rate, No Murmurs Neuro: Normal Speech Psych/Mental Status: Mood NL Results/Procedures Lab Laboratory Tests 05/23/20 15:14: Glucometer 252H 05/23/20 19:53: Glucometer 85 05/23/20 20:59: Glucometer 156H 05/24/20 03:54: White Blood Count 12.8H, Red Blood Count 4.19, Hemoglobin 11.8, Hematocrit 38, Mean Corpuscular Volume 90, Mean Corpuscular Hemoglobin 28, Mean Corpuscular Hemoglobin Concent 31L, Red Cell Distribution Width 16.2H, Platelet Count 215, Mean Platelet Volume 10.4, Immature Granulocyte % (Auto) 1, Neutrophils (%) (Auto) 83H, Lymphocytes (%) (Auto) 13, Monocytes (%) (Auto) 3, Eosinophils (%) (Auto) 0, Basophils (%) (Auto) 0, Neutrophils # (Auto) 10.5H, Lymphocytes # (Auto) 1.6, Monocytes # (Auto) 0.4, Eosinophils # (Auto) 0.0, Basophils # (Auto) 0.0, Immature Granulocyte # (Auto) 0.1, Sodium Level 134L, Potassium Level 4.9, Chloride Level 97L, Carbon Dioxide Level 24, Anion Gap 13, Blood Urea Nitrogen 18, Creatinine 1.19, Estimat Glomerular Filtration Rate 47, BUN/Creatinine Ratio 15, Glucose Level 305H, Calcium Level 8.7, Beta-Hydroxybutyrate (Chem panel) 0.32H 05/24/20 11:08: Glucometer 304H Microbiology 05/21/20 Influenza Types A,B Antigen (KARINA) - Final, Complete Assessment/Plan Assessment/Plan (1) Diabetes mellitus Status: Chronic Assessment & Plan: Remains uncontrolled, decreasing steroids further today, increase levemir and novolog. 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 (3) COPD with exacerbation Status: Acute Assessment & Plan: Change solumedrol to prednisone taper. Continue Duonebs, Advair and ceftriaxone. (4) DVT prophylaxis Status: Acute Assessment & Plan: Enoxaparin Clinical Quality Measures DVT/VTE Risk/Contraindication: Risk Factor Score Per Nursin RFS Level Per Nursing on Admit: 4+=Very High AILYN WEEKS MD May 24, 2020 14:01
--- NOTE | 2020-05-24 15:14 | NUR ---
RD ASSESSMENT PMHx: COPD; DM; hypercholesterolemia; HTN; hepatitis; CA(bladder,kidney) PT INTERACTION: Pt was awake and pleasant during nutrition assessment. Pt states current appetite is good. Note avg PO intake 77% x2d, per chart review. Pt states following a DM diet at home, and has no issues with chewing/swallowing food. Pt states no recent issues with nausea, vomiting, constipation, and diarrhea. Note last BM was 05/23, and pt currently on bowel regimen of miralax BID, per chart review. Pt states recent 17# wt loss x6mon. Note recent 4# wt loss x6mon, per chart review. Pt states current DM management is "not good here." When asked about DM management at home: "I'm a pump at home, and control is not the best." Note hx of non-compliance, per H&P. In H&P note, pt stated her last HbA1c was "around low 11s." Note unable to determine recent HbA1c per chart review. ABNORMAL NUTRITION-RELATED LAB VALUES LOW: Na 134; Cl 97 HIGH: glu 305; Est. kcal needs: 1895-2294 kcal | 15-18 kcal/kg Est. Pro needs: 83-103 g Pro | 0.8-1.0 g Pro/kg PES STATEMENT: Given current PO intake, no nutrition diagnosis at this time (NO-1.1) INTERVENTION: Continue with current diet order of CHO 45g/m 0snack diet. Discussed and provided diet education on DM management. Discussed CHO counting to pt and its relationship to DM management. Pt verbalized understanding of information provided, but it does not appear that they will apply information upon discharge. Will continue to follow and reassess as pt needs, intake, and status change. Lilo Galindo, MS RD LD
[2020-05-24 15:22] VITALS: BP 126/67
--- NOTE | 2020-05-24 15:27 | NUR ---
I SPOKE WITH THE PATIENT AND HER POLA, WENT THROUGH THE EXTERNAL MED HISTORY, CALLED [facility] IN [facility], SPOKE WITH [facility] AND HER DOCTOR'S OFFICE, AND I [facility]ED [facility] COMPLETE THIS MED REC. TRADJENTA 5MG LAST FILLED 10/13/19 #30/30DS SINGULAR 10MG LAST FILLED 11/13/19 #90/90DS -PATIENT STATES THAT SHE FORGETS TO TAKE HER MEDS SOMETIMES AND THAT'S WHY THEY HAVEN'T BEEN FILLED IN A WHILE. PATIENT STATES THAT SHE TAKES LISINOPRIL 5MG DAILY. I WAS UNABLE TO FIND ANY RECORD OF WHERE SHE GETS IT. THE ONLY THING I COULD FIND WAS THAT THE DOCTOR SENT THE PRESCRIPTION TO [facility] 11/03/19 BUT [facility] SAID THAT THEY HAVE NO RECORD OF HER USING [employer] MAIL ORDER TO GET THEIR MEDS. PATIENT STATES THAT THEY MIGHT USE [employer] MAIL ORDER BUT [facility] ALSO HAD NO RECORD OF HER GETTING LISINOPRIL THROUGH THEM. I ALSO CALLED THE TO SEE IF HE HAD A BOTTLE THAT I COULD GET SOME INFORMATION OFF OF BUT HE SAID HE COULDN'T FIND IT. PATIENT IS VERY SURE THAT SHE IS TAKING LISINOPRIL 5MG BUT SINCE I WAS UNABLE TO FIND ANY INFORMATION I LEFT IT OFF OF THE MED REC. OTC: MICONOZALE POWDER PROBIOTIC VITAMIN D3 IRON CHONDROITIN
[2020-05-24 15:42] VITALS: BP 126/67
[2020-05-24] MEDS ORDERED: cefTRIAXone 1,000 MG/SWFI 10 ML IV PUSH IV SCH ×2 (19:30)
[2020-05-24] MEDS ORDERED: MELATONIN 3 MG TABLET ONE (19:34)
[2020-05-24] MEDS ORDERED: WATER (STERILE) FOR INJECTION 10 ML ONE (19:45)
[2020-05-24] MEDS ORDERED: cefTRIAXone 1,000 MG IV (ROCEPHIN) VIAL ONE (19:45)
[2020-05-24] MEDS: ENOXAPARIN 40 MG/0.4 ML (LOVENOX) SYR SC SCH (19:51)
[2020-05-24] MEDS ORDERED: MELATONIN 3 MG TABLET PO SCH (21:00)
[2020-05-25] VITALS: BP 102/64
[2020-05-25 05:20] LABS: HEMOGLOBIN 11.9 g/dL (11.5-16.0); MEAN PLATELET VOLUME 10.3 fL (9.0-12.2); WHITE BLOOD COUNT 11.2 10^3/uL (4.3-11.0)
[2020-05-25 06:00] LABS: CALCIUM 8.9 MG/DL (8.5-10.1); CREATININE SERUM 1.07 MG/DL (0.60-1.30); POTASSIUM 3.8 MMOL/L (3.6-5.0)
[2020-05-25] MEDS: inSUlin ASPART (NovoLOG) 1 UNIT/0.01 ML (CHARGE PER UNIT) SC SCH ×2 (06:51→11:51)
[2020-05-25] MEDS ORDERED: predniSONE 10 MG TAB PO SCH (07:00)
[2020-05-25] MEDS ORDERED: PRD10T PO ×2 (07:09)
[2020-05-25] MEDS ORDERED: IPR14IN IH ×2 (07:09)
[2020-05-25] MEDS: RT-ALBUTEROL/IPRATROPIUM 3 ML (DUONEB) VIAL INH SCH ×2 (07:17→11:21)
[2020-05-25] MEDS: ADVAIR HFA 115/21 MCG INHALER 8 GM IH SCH (07:17)
[2020-05-25] MEDS: ZIPRASIDONE 40 MG (GEODON) CAP PO SCH (08:05)
[2020-05-25 08:07] VITALS: BP 120/78
[2020-05-25] MEDS: polyethylene glycoL POWDER 17 GM (MIRALAX) PACK PO SCH (08:08)
--- NOTE | 2020-05-25 10:15 | Discharge Summary ---
Discharge Summary Hospital Course Problems/Diagnosis: (1) Diabetes mellitus Status: Chronic Assessment & Plan: Remained uncontrolled with high dose steroids, improved when steroids tapered, resuming home insulin pump on d/c. 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 (3) COPD with exacerbation Status: Acute Assessment & Plan: Change solumedrol to prednisone taper. On duonebs, Advair inpatient, discharged with script to add Atrovent to home albuterol and ICS/LABA. Hospital Course Date of Admission: May 21, 2020 at 18:34 Admission Diagnosis : Family Physician/Provider: Sushila Zepeda Aprn Date of Discharge: 05/25/20 Discharge Diagnosis: See problem list Hospital Course: See problem list Labs and Pending Lab Test: Laboratory Tests 05/24/20 11:08: Glucometer 304H 05/24/20 15:24: Glucometer 313H 05/24/20 20:53: Glucometer 274H 05/25/20 05:04: White Blood Count 11.2H, Red Blood Count 4.22, Hemoglobin 11.9, Hematocrit 38, Mean Corpuscular Volume 89, Mean Corpuscular Hemoglobin 28, Mean Corpuscular Hemoglobin Concent 32, Red Cell Distribution Width 16.0H, Platelet Count 238, Mean Platelet Volume 10.3, Sodium Level 137, Potassium Level 3.8, Chloride Level 98, Carbon Dioxide Level 27, Anion Gap 12, Blood Urea Nitrogen 13, Creatinine 1.07, Estimat Glomerular Filtration Rate 54, BUN/Creatinine Ratio 12, Glucose Level 121H, Calcium Level 8.9 05/25/20 05:13: Glucometer 141H Microbiology 05/21/20 Influenza Types A,B Antigen (KARINA) - Final, Complete Home Meds Active Atrovent Hfa (Ipratropium [place]) 12.9 Gm Aers 2 Puff IH QID Prednisone 10 Mg Tab 0 PO UD Take 4 tabs (40mg) daily, decrease by 1 tab (10mg) daily. Reported Glucosamine & Chondroitin Cap (Glucosa Tan 2Kcl/Chondroitin Tan) 1 Each Capsule 1 Each PO DAILY Novolog (Insulin Aspart) 100 Unit/1 Ml Susp Units PER PUMP Miconazole Nitrate 130 Gm Aero.powd 1 Applic TP PRN APPLIE UNDER BELLY AND BREASTS Probiotic (L.acidoph & Paracasei,B.lactis) 1 Each Capsule 1 Each PO DAILY TAKE 3 HOURS AFTER TAKING IRON Claritin (Loratadine) 10 Mg Tablet 10 Mg PO DAILY Singulair (Montelukast Sodium) 10 Mg Tablet 10 Mg PO DAILY LAST FILLED 11/13/2019 Proair Hfa (Albuterol Sulfate) 1 Puff Puff 2 Puff IH Q4H PRN 1 PUFF = 90 MCG Fluticasone-Salmeterol 250-50 (Fluticasone Propion/Salmeterol) 1 Each Blst.w.dev 1 Puff INH DAILY Vitamin D3 (Cholecalciferol (Vitamin D3)) 50 Mcg Capsule 50 Mcg PO DAILY Iron (Ferrous Sulfate) 325 Mg Tablet 325 Mg PO DAILY Escitalopram Oxalate 20 Mg Tablet 20 Mg PO DAILY Gabapentin 100 Mg Capsule 100 Mg PO DAILY Myrbetriq (Mirabegron) 25 Mg Tab.er.24h 25 Mg PO DAILY Geodon (Ziprasidone) 80 Mg Cap 160 Mg PO HS TAKE 2 (80MG) TABLETS Ibuprofen 800 Mg Tablet 800 Mg PO Q8H PRN Olanzapine 10 Mg Tablet 10 Mg PO HS Tradjenta (Linagliptin) 5 Mg Tablet 5 Mg PO DAILY LAST FILLED 10/13/2019 Assessment/Pt DC Instructions Follow up with Joyce Zepeda on 05/31 at 1 pm. Discharge Diet: ADA Diet Activity as Tolerated: Yes Discharge Physical Examination Allergies: Coded Allergies: hydroxyzine (Verified Allergy, Unknown, 01/23/20) General Appearance: No Apparent Distress, WD/WN Respiratory: Lungs Clear, Normal Breath Sounds Cardiovascular: Regular Rate, Rhythm, No Murmur Skin: Normal Color, Warm/Dry Neurologic/Psychiatric: Alert, Normal Mood/Affect Clinical Quality Measures DVT/VTE Risk/Contraindication: Risk Factor Score Per Nursin RFS Level Per Nursing on Admit: 4+=Very High AILYN WEEKS MD May 25, 2020 10:12
--- NOTE | 2020-05-25 11:32 | NUR ---
PATIENT WAS ON ROOM AIR CHECKED OXYGEN SAT IT WAS 92% PATIENT WAS THEN WALKED SAT DROPPED TO 89% AND REMAINED THERE SAT RETURNED TO 90 % AT REST Addendum: 05/25/20 at 1132 by ALEX LANDEROS RT Amended: Links added.
--- NOTE | 2020-05-25 11:58 | NUR ---
CM/SS visited with patient for discharge planning. Plan: Patient will discharge to home today 05/25. No oxygen needs. DME: Patient uses [id number] for her equipment. She states she has a CPAP machine and a Nebulizer. The patient did not qualify for home o2 at this time. 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 No further needs.
--- NOTE | 2020-05-28 12:20 | Physician Query Clarification ---
PQ-Uncertain Diagnosis Admission/Discharge Admission Date: May 21, 2020 at 18:34 Discharge Date: May 25, 2020 at 12:54 Dr. Holland, The medical record reflects the following clinical scenario: History/Risk Factors: emphysema, diabetes with hyperglycemia d/t steroids, hypoxemia Clinical Findings: On arrivial o2 sats in the 80% range increasing to low 90's on 4L O2. Pt does not require oxygen at home, crackles, decreased breath sounds, wheezing, Edgard test - positive, PO2 67 Treatment: 4L O2, albuterol, IV Solu Medrol, IV Rocephin, Advair Question: Is acute on chronic respiratory failure a clinically valid diagnosis? acute on chronic respiratory failure was documented in Dr. Booth's consult with no further documentation in the medical record. Please document a response in Progress Note or Discharge Summary. 1. Yes, clinically valid, condition resolved. 2. No, condition ruled out. 3. Other, with explanation of clinical findings. 4. Undetermined, no explanation for clinical findings. PHYSICIAN RESPONSE Diagnosis clinically valid: Yes, Conditon resolved Please remember a lack of response to the above will prompt a phone page by CDI/Coding staff. In responding to this query, please exercise your independent professional judgment. The purpose of this communication is to more accurately reflect the complexity of your patients condition. The fact that a question is asked does not imply that any particular answer is desired or expected. Thank you for your timely response to this clarification. Requestors name: Trinh THIS PHYSICIAN QUERY FORM IS A PERMANENT PART OF THE MEDICAL RECORD TRINH EATON May 28, 2020 12:20 AILYN HOLLAND MD May 28, 2020 14:20
== END 2020-05-25 12:54 | disposition home or self-care (01) | DRG 637 ==
LOC: EDUNIT# 14:39 → ER 14:42 → UNDOADMIN 18:34 → ICU 18:34 → CSD 18:34 → 4TH 05-22 12:06
PROVIDERS: ADMIT Internal Medicine; ATTEND Family Medicine
DX: E11.65 Type 2 diabetes mellitus with hyperglycemia (principal); J96.21 Acute and chronic respiratory failure with hypoxia; J43.9 Emphysema, unspecified; T38.0X5A Adverse effect of glucocorticoids and synthetic analogues, initial encounter; Z79.4 Long term (current) use of insulin; F17.210 Nicotine dependence, cigarettes, uncomplicated; G47.33 Obstructive sleep apnea (adult) (pediatric); I10 Essential (primary) hypertension; E78.00 Pure hypercholesterolemia, unspecified; B19.20 Unspecified viral hepatitis C without hepatic coma; F41.9 Anxiety disorder, unspecified; F31.9 Bipolar disorder, unspecified; Z85.528 Personal history of other malignant neoplasm of kidney; Z90.710 Acquired absence of both cervix and uterus; Z90.5 Acquired absence of kidney; Z90.89 Acquired absence of other organs
CPT/HCPCS: 36415; 71045; 80048; 80053; 82010; 82805; 82962; 83036; 83880; 85025; 85027; 85379; 87804; 93005; 93970; 94640; 94761; 96361; 96365; 96366

== ENCOUNTER 2020-05-29 12:08 | Emergency (ER) | payer MEDICARE, MEDICAID ==
[~2020-05-29] VITALS: Ht 170.2 cm; Wt 105.4 kg
[~2020-05-29 12:08] MED LIST changes: +CHOL20003 PO; +ESCI20TA45 PO; +FERR-84 PO; +FLUT1BLS12 INH; +GABA-486 PO; +GLUC1CAP37 PO; +INSU100V16; +IPR14IN IH; +L.AC1CAP6 PO; +LORA10TA76 PO; +MICO130A6 TP; +MIRA25TA PO; +MONT10TA21 PO; +PRD10T PO; +RT-ALBUINH IH
--- NOTE | 2020-05-29 12:42 | Diagnostic Imaging Report ---
INDICATION: Continued shortness of breath. COMPARISON STUDY: Chest from seven days ago. FINDINGS: Frontal view of the chest demonstrates the infiltrates in the lung bases have cleared. Heart size and vascularity are normal. There are no pleural effusions. Port-A-Cath remains in place. IMPRESSION: The basilar infiltrates have cleared. No acute findings are present. Dictated by: Dictated on workstation # [id number]
--- NOTE | 2020-05-29 12:43 | ED Cough/URI ---
General Chief Complaint: Respiratory Problems Stated Complaint: SOB Nursing Triage Note: Patient reports she was discharged from [facility] in [place] on Sunday with diagnoses of hyperglycemia and COPD exacerbation. She reports her shortness of breath has worsened since her discharge to home. Sepsis Screen: No Definite Risk Source: patient Exam Limitations: no limitations History of Present Illness Date Seen by Provider: May 29, 2020 Time Seen by Provider: 12:10 Initial Comments 55-year-old female past medical history significant for COPD presents with complaint of shortness of air and a dry cough. Recently discharged from [facility] 4 days ago with COPD and hyperglycemia. Patient has been on a couple courses of steroids, but states she is not feeling any better. Denies fever or chills, denies chest pain or wheezing. Has been doing her breathing treatments 4 times a day with no relief. She is still smoking, but less. She denies abdominal pain, nausea vomiting or diarrhea. She has recently tested negative for COVID-19 Allergies and Home Medications Allergies Coded Allergies: hydroxyzine (Verified Allergy, Unknown, 01/23/20) Home Medications Albuterol Sulfate 1 Puff Puff, 2 PUFF IH Q4H PRN for SHORTNESS OF BREATH, (Reported) 1 PUFF = 90 MCG Cholecalciferol (Vitamin D3) 50 Mcg Capsule, 50 MCG PO DAILY, (Reported) Escitalopram Oxalate 20 Mg Tablet, 20 MG PO DAILY, (Reported) Ferrous Sulfate 325 Mg Tablet, 325 MG PO DAILY, (Reported) Fluticasone Propion/Salmeterol 1 Each Blst.w.dev, 1 PUFF INH DAILY, (Reported) Gabapentin 100 Mg Capsule, 100 MG PO DAILY, (Reported) Glucosa Tan 2Kcl/Chondroitin Tan 1 Each Capsule, 1 EACH PO DAILY, (Reported) Ibuprofen 800 Mg Tablet, 800 MG PO Q8H PRN for PAIN-MILD, (Reported) Insulin Aspart 100 Unit/1 Ml Susp, UNITS PER PUMP, (Reported) Ipratropium [place] 12.9 Gm Aers, 2 PUFF IH QID Prescribed by: AILYN WEEKS on 05/25/20 0709 L.acidoph & Paracasei,B.lactis 1 Each Capsule, 1 EACH PO DAILY, (Reported) TAKE 3 HOURS AFTER TAKING IRON Linagliptin 5 Mg Tablet, 5 MG PO DAILY, (Reported) LAST FILLED 10/13/2019 Loratadine 10 Mg Tablet, 10 MG PO DAILY, (Reported) Miconazole Nitrate 130 Gm Aero.powd, 1 APPLIC TP PRN, (Reported) APPLIE UNDER BELLY AND BREASTS Mirabegron 25 Mg Tab.er.24h, 25 MG PO DAILY, (Reported) Montelukast Sodium 10 Mg Tablet, 10 MG PO DAILY, (Reported) LAST FILLED 11/13/2019 Olanzapine 10 Mg Tablet, 10 MG PO HS, (Reported) Prednisone 10 Mg Tab, 0 PO UD Take 4 tabs (40mg) daily, decrease by 1 tab (10mg) daily. Prescribed by: AILYN WEEKS on 05/25/20 0709 Ziprasidone 80 Mg Cap, 160 MG PO HS, (Reported) TAKE 2 (80MG) TABLETS Patient Home Medication List Home Medication List Reviewed: Yes Review of Systems Review of Systems Constitutional: No dizziness, No fever, No malaise, No weakness EENTM: no symptoms reported Respiratory: see HPI, cough; No hemoptysis, No orthopnea, No phlegm; short of breath; No stridor, No wheezing Cardiovascular: No chest pain, No edema, No palpitations, No syncope Gastrointestinal: No abdominal pain, No constipation, No diarrhea, No nausea, No vomiting Musculoskeletal: No back pain, No joint pain Skin: No change in color, No rash Past Ztcocpn-Bjhpdm-Gbxqhm Hx Past Med/Social Hx: Reviewed Nursing Past Med/Soc Hx Patient Social History Alcohol Use: Denies Use Recreational Drug Use: Yes Drug of Choice: marijuana-states last use 1-2 months ago Smoking Status: Current Everyday Smoker Type Used: Cigarettes 2nd Hand Smoke Exposure: Yes Recent Foreign Travel: No Contact w/Someone Who Travel: No Recent Infectious Disease Expo: No Recent Hopitalizations: No Physical Abuse: No Sexual Abuse: No Mistreated: No Fear: No Immunizations Up To Date Date of Pneumonia Vaccine: Apr 15, 2020 Date of Influenza Vaccine: Mar 16, 2020 Seasonal Allergies Seasonal Allergies: No Past Medical History Surgeries: Yes Abdominal, Hysterectomy, Nephrectomy, Tonsillectomy, Tubal Ligation Respiratory: Yes Asthma, COPD, Emphysema Currently Using CPAP: No (Has CPAP for JUAN ANTONIO but not tolerating) Currently Using BIPAP: No Cardiac: Yes High Cholesterol, Hypertension 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 had recent axilla abscess) Recent Skin Changes Blood Disorders: Yes (HEP C) Adverse Reaction/Blood Tranf: No Physical Exam Vital Signs - First Documented 05/29/20 12:19 Temp 36.5 Pulse 103 Resp 21 B/P (MAP) 135/76 (95) Pulse Ox 93 O2 Delivery Room Air Capillary Refill : Less Than 3 Seconds Height: 5'7.00" Weight: 224lbs. 0.0oz. [id number]; 36.00 BMI Method:Actual General Appearance: WD/WN, no apparent distress HEENT: PERRL/EOMI, normal ENT inspection Neck: non-tender, supple Respiratory: no respiratory distress, no accessory muscle use, decreased breath sounds, rales, rhonchi; No wheezing Cardiovascular: regular rate, rhythm, no edema, no gallop, no JVD Gastrointestinal: non tender, soft; No distended, No guarding, No rebound, No tenderness Extremities: normal range of motion, non-tender, normal inspection, no pedal edema Neurologic/Psychiatric: no motor/sensory deficits, alert, normal mood/affect, oriented x 3 Skin: normal color, warm/dry Progress/Results/Core Measures Suspected Sepsis Recent Fever Within 48 Hours: No Infection Criteria Present: None New/Unexplained Altered Menta: No Sepsis Screen: No Definite Risk SIRS Temperature: Pulse: 103 Respiratory Rate: 21 Laboratory Tests 05/29/20 12:32: White Blood Count 9.8 Blood Pressure 135 /76 Mean: 95 Laboratory Tests 05/29/20 12:32: Creatinine 1.09, Platelet Count 279, Total Bilirubin 0.2 Results/Orders Lab Results Laboratory Tests Test 05/29/20 12:32 Range/Units White Blood Count 9.8 4.3-11.0 10^3/uL Red Blood Count 3.84 L 4.35-5.85 10^6/uL Hemoglobin 10.7 L 11.5-16.0 G/DL Hematocrit 34 L 35-52 % Mean Corpuscular Volume 90 80-99 FL Mean Corpuscular Hemoglobin 28 25-34 PG Mean Corpuscular Hemoglobin Concent 31 L 32-36 G/DL Red Cell Distribution Width 16.1 H 10.0-14.5 % Platelet Count 279 130-400 10^3/uL Mean Platelet Volume 10.4 7.4-10.4 FL Immature Granulocyte % (Auto) 1 % Neutrophils (%) (Auto) 79 H 42-75 % Lymphocytes (%) (Auto) 15 12-44 % Monocytes (%) (Auto) 4 0-12 % Eosinophils (%) (Auto) 1 0-10 % Basophils (%) (Auto) 0 0-10 % Neutrophils # (Auto) 7.7 1.8-7.8 X 10^3 Lymphocytes # (Auto) 1.5 1.0-4.0 X 10^3 Monocytes # (Auto) 0.3 0.0-1.0 X 10^3 Eosinophils # (Auto) 0.1 0.0-0.3 10^3/uL Basophils # (Auto) 0.0 0.0-0.1 10^3/uL Immature Granulocyte # (Auto) 0.1 0.0-0.1 10^3/uL Sodium Level 131 L 135-145 MMOL/L Potassium Level 4.7 3.6-5.0 MMOL/L Chloride Level 95 L 98-107 MMOL/L Carbon Dioxide Level 25 21-32 MMOL/L Anion Gap 11 5-14 MMOL/L Blood Urea Nitrogen 16 7-18 MG/DL Creatinine 1.09 0.60-1.30 MG/DL Estimat Glomerular Filtration Rate 53 BUN/Creatinine Ratio 15 Glucose Level 423 *H 70-105 MG/DL Calcium Level 9.0 8.5-10.1 MG/DL Corrected Calcium 9.8 8.5-10.1 MG/DL Total Bilirubin 0.2 0.1-1.0 MG/DL Aspartate Amino Transf (AST/SGOT) 16 5-34 U/L Alanine Aminotransferase (ALT/SGPT) 27 0-55 U/L Alkaline Phosphatase 115 40-136 U/L Total Protein 6.3 L 6.4-8.2 GM/DL Albumin 3.0 L 3.2-4.5 GM/DL My Orders Orders - EDNA KENT DO Ed Iv/Invasive Line Start (05/29/20 12:23) Cbc With Automated Diff (05/29/20 12:23) Comprehensive Metabolic Panel (05/29/20 12:23) Chest 1 View Ap/Pa Only (05/29/20 12:23) Methylprednisolone Sod Succ (Solu-Medrol (05/29/20 13:15) Ns Iv 1000 Ml (Sodium Chloride 0.9%) (05/29/20 13:30) Vital Signs/I&O 05/29/20 12:19 Temp 36.5 Pulse 103 Resp 21 B/P (MAP) 135/76 (95) Pulse Ox 93 O2 Delivery Room Air Capillary Refill : Less Than 3 Seconds Blood Pressure Mean: 95 Departure Impression Primary Impression: COPD with exacerbation Additional Impression: Hyperglycemia Disposition: 01 HOME, SELF-CARE Condition: Improved Departure-Patient Inst. Decision time for Depature: 13:27 Referrals: [facility] (PCP) Primary Care Physician ABHILASH NICE APRN (Family) Primary Care Physician Patient Instructions: Chronic Obstructive Pulmonary Disease (COPD) (DC) Add. Discharge Instructions: Call your PCP on Sunday to arrange for a follow up appointment in 5 to 7 days. You need further instruction on managing your blood sugar as well as further evaluation of your medications for COPD All discharge instructions reviewed with patient and/or family. Voiced understanding. Scripts Prednisone (Prednisone) 20 Mg Tab 40 MG PO DAILY, #10 TAB 0 Refills Prov: EDNA KENT DO 05/29/20 EDNA KENT DO May 29, 2020 12:43
[2020-05-29 12:46] LABS: BASOPHILS % (AUTO) 0 % (0-10); EOSINOPHILS # (AUTO) 0.1 10^3/uL (0.0-0.3); EOSINOPHILS % (AUTO) 1 % (0-10); HEMATOCRIT 34 % (35-52); HEMOGLOBIN 10.7 G/DL (11.5-16.0); LYMPHOCYTES # (AUTO) 1.5 X 10^3 (1.0-4.0); LYMPHOCYTES % (AUTO) 15 % (12-44); MEAN CORPUSCULAR HEMOGLOBIN 28 PG (25-34); MEAN CORPUSCULAR HGB CONC 31 G/DL (32-36); MEAN CORPUSCULAR VOLUME 90 FL (80-99); MEAN PLATELET VOLUME 10.4 FL (7.4-10.4); MONOCYTES # (AUTO) 0.3 X 10^3 (0.0-1.0); MONOCYTES % (AUTO) 4 % (0-12); NEUTROPHILS # (AUTO) 7.7 X 10^3 (1.8-7.8); NEUTROPHILS % (AUTO) 79 % (42-75); PLATELET COUNT 279 10^3/uL (130-400); WHITE BLOOD COUNT 9.8 10^3/uL (4.3-11.0)
[2020-05-29 13:00] LABS: POTASSIUM 4.7 MMOL/L (3.6-5.0)
[2020-05-29 13:01] LABS: CREATININE SERUM 1.09 MG/DL (0.60-1.30)
[2020-05-29 13:02] LABS: BILIRUBIN,TOTAL 0.2 MG/DL (0.1-1.0); TOTAL PROTEIN 6.3 GM/DL (6.4-8.2)
[2020-05-29] MEDS ORDERED: methylPREDNISolone 40 MG/ML (Solu-MEDROL) VIAL IV ONE (13:15)
[2020-05-29] MEDS ORDERED: NS IV 1000 ML 1,000 ML ONE (13:23)
[2020-05-29] MEDS ORDERED: PRD20T PO (13:29)
[2020-05-29] MEDS ORDERED: NS IV 1000 ML 1,000 ML IV SCH (13:30)
[2020-05-29 14:20] VITALS: BP 121/70
== END 2020-05-29 14:31 | disposition home or self-care (01) ==
LOC: EDUNIT# 12:08 → ER FS 12:09
DX: J44.1 Chronic obstructive pulmonary disease with (acute) exacerbation (principal); E11.65 Type 2 diabetes mellitus with hyperglycemia; F31.9 Bipolar disorder, unspecified; F41.9 Anxiety disorder, unspecified; F17.210 Nicotine dependence, cigarettes, uncomplicated; Z85.51 Personal history of malignant neoplasm of bladder; Z85.528 Personal history of other malignant neoplasm of kidney; Z88.8 Allergy status to other drugs, medicaments and biological substances; Z20.828 Contact with and (suspected) exposure to other viral communicable diseases; Z79.4 Long term (current) use of insulin; Z79.52 Long term (current) use of systemic steroids
CPT/HCPCS: 36415; 71045; 80053; 82962; 85025

== ENCOUNTER 2020-06-13 17:53 | Emergency (ER) | payer MEDICARE, MEDICAID ==
[~2020-06-13] VITALS: Ht 170.2 cm; Wt 103.4 kg
[~2020-06-13 17:53] MED LIST changes: +PRD20T PO
[2020-06-13] MEDS ORDERED: inSUlin (REGULAR) HUMAN 1 UNIT/0.01 ML (CHARGE PER UNIT) SC STA (18:09)
--- NOTE | 2020-06-13 18:14 | ED General ---
General Chief Complaint: Glucose Problems Stated Complaint: HIGH BS Nursing Triage Note: Patient reports she just completed a course of steroids for a COPD exacerbation and states her blood sugars are still in the 500s. Nursing Sepsis Screen: No Definite Risk Source of Information: Patient, EMS History of Present Illness Date Seen by Provider: Jun 13, 2020 Time Seen by Provider: 17:54 Initial Comments 55 -year-old female presenting with EMS having complaints of elevated blood sugars. She recently had been admitted to the hospital with a COPD exacerbation and had been on steroids. She was having difficulty controlling her sugars while she was in the hospital with the steroids. However even after discharge from the hospital she continues to have difficulty controlling her sugars. Tonight her sugars are elevated and she noticed that her vision was blurry. When she tried to check her sugar it was over 500. She had notified EMS and 911 and wanted transported to the hospital for evaluation. Here her sugar was 481. she states that they started her on a new form of insulin in the morning's as well as she continues to use NovoLog before meals. She has been off the steroids for about a week now but continues to have elevated sugars. She also continues to have increased appetite. Allergies and Home Medications Allergies Coded Allergies: hydroxyzine (Verified Allergy, Unknown, 01/23/20) Home Medications Albuterol Sulfate 1 Puff Puff, 2 PUFF IH Q4H PRN for SHORTNESS OF BREATH, (Reported) 1 PUFF = 90 MCG Cholecalciferol (Vitamin D3) 50 Mcg Capsule, 50 MCG PO DAILY, (Reported) Escitalopram Oxalate 20 Mg Tablet, 20 MG PO DAILY, (Reported) Ferrous Sulfate 325 Mg Tablet, 325 MG PO DAILY, (Reported) Fluticasone Propion/Salmeterol 1 Each Blst.w.dev, 1 PUFF INH DAILY, (Reported) Gabapentin 100 Mg Capsule, 100 MG PO DAILY, (Reported) Glucosa Tan 2Kcl/Chondroitin Tan 1 Each Capsule, 1 EACH PO DAILY, (Reported) Ibuprofen 800 Mg Tablet, 800 MG PO Q8H PRN for PAIN-MILD, (Reported) Insulin Aspart 100 Unit/1 Ml Susp, UNITS PER PUMP, (Reported) Ipratropium [place] 12.9 Gm Aers, 2 PUFF IH QID Prescribed by: AILYN WEEKS on 05/25/20 0709 L.acidoph & Paracasei,B.lactis 1 Each Capsule, 1 EACH PO DAILY, (Reported) TAKE 3 HOURS AFTER TAKING IRON Linagliptin 5 Mg Tablet, 5 MG PO DAILY, (Reported) LAST FILLED 10/13/2019 Loratadine 10 Mg Tablet, 10 MG PO DAILY, (Reported) Miconazole Nitrate 130 Gm Aero.powd, 1 APPLIC TP PRN, (Reported) APPLIE UNDER BELLY AND BREASTS Mirabegron 25 Mg Tab.er.24h, 25 MG PO DAILY, (Reported) Montelukast Sodium 10 Mg Tablet, 10 MG PO DAILY, (Reported) LAST FILLED 11/13/2019 Olanzapine 10 Mg Tablet, 10 MG PO HS, (Reported) Prednisone 10 Mg Tab, 0 PO UD Take 4 tabs (40mg) daily, decrease by 1 tab (10mg) daily. Prescribed by: AILYN WEEKS on 05/25/20 0709 Prednisone 20 Mg Tab, 40 MG PO DAILY Prescribed by: EDNA KENT on 05/29/20 1329 Ziprasidone 80 Mg Cap, 160 MG PO HS, (Reported) TAKE 2 (80MG) TABLETS Patient Home Medication List Home Medication List Reviewed: Yes Review of Systems Review of Systems Constitutional: No chills, No fever EENTM: no symptoms reported Respiratory: cough (chronic with her COPD) Cardiovascular: no symptoms reported Gastrointestinal: no symptoms reported Genitourinary: frequency Musculoskeletal: no symptoms reported Skin: no symptoms reported Psychiatric/Neurological: Numbness (increased symptoms of her neuropathy) Past Juolbcn-Uomsbz-Beglhr Hx Past Med/Social Hx: Reviewed Nursing Past Med/Soc Hx Patient Social History Drug of Choice: marijuana-states last use 1-2 months ago Type Used: Cigarettes 2nd Hand Smoke Exposure: Yes Recent Foreign Travel: No Contact w/Someone Who Travel: No Recent Infectious Disease Expo: No Recent Hopitalizations: No Immunizations Up To Date Date of Pneumonia Vaccine: Apr 15, 2020 Date of Influenza Vaccine: Mar 16, 2020 Seasonal Allergies Seasonal Allergies: No Past Medical History Surgeries: Yes Abdominal, Hysterectomy, Nephrectomy, Tonsillectomy, Tubal Ligation Respiratory: Yes Asthma, COPD, Emphysema Currently Using CPAP: No (Has CPAP for JUAN ANTONIO but not tolerating) Currently Using BIPAP: No Cardiac: Yes High Cholesterol, Hypertension 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 had recent axilla abscess) Recent Skin Changes Blood Disorders: Yes (HEP C) Adverse Reaction/Blood Tranf: No Physical Exam Vital Signs Vital Signs - First Documented 06/13/20 18:01 Temp 36.3 Pulse 99 Resp 16 B/P (MAP) 142/72 (95) Pulse Ox 93 O2 Delivery Room Air Capillary Refill : Less Than 3 Seconds Height, Weight, BMI Height: 5'7.00" Weight: 224lbs. 0.0oz. 101.356977ff; 35.00 BMI Method:Actual General Appearance: No Apparent Distress, Obese HEENT: Normal ENT Inspection, Pharynx Normal Neck: Non Tender, Supple Respiratory: Chest Non Tender, No Accessory Muscle Use, No Respiratory Distress, Decreased Breath Sounds Cardiovascular: Regular Rate, Rhythm, Normal Peripheral Pulses Gastrointestinal: Normal Bowel Sounds, No Pulsatile Mass, Non Tender, Soft Extremity: Normal Capillary Refill, No Pedal Edema Neurologic/Psychiatric: Alert, Oriented x3 Skin: Normal Color, Warm/Dry Focused Exam Lactate Level 06/13/20 18:44: Lactic Acid Level 1.60 Lactic Acid Level Progress/Results/Core Measures Suspected Sepsis Recent Fever Within 48 Hours: No Infection Criteria Present: None New/Unexplained Altered Menta: No Sepsis Screen: No Definite Risk SIRS Temperature: Pulse: 99 Respiratory Rate: 16 Laboratory Tests 06/13/20 18:12: White Blood Count 9.3 Blood Pressure 142 /72 Mean: 95 06/13/20 18:44: Lactic Acid Level 1.60 Laboratory Tests 06/13/20 18:12: Creatinine 1.11, Platelet Count 202, Total Bilirubin 0.2 Results/Orders Lab Results Laboratory Tests Test 06/13/20 18:12 06/13/20 18:44 06/13/20 19:14 Range/Units White Blood Count 9.3 4.3-11.0 10^3/uL Red Blood Count 3.87 L 4.35-5.85 10^6/uL Hemoglobin 10.8 L 11.5-16.0 G/DL Hematocrit 35 35-52 % Mean Corpuscular Volume 90 80-99 FL Mean Corpuscular Hemoglobin 28 25-34 PG Mean Corpuscular Hemoglobin Concent 31 L 32-36 G/DL Red Cell Distribution Width 16.9 H 10.0-14.5 % Platelet Count 202 130-400 10^3/uL Mean Platelet Volume 10.7 H 7.4-10.4 FL Immature Granulocyte % (Auto) 0 % Neutrophils (%) (Auto) 77 H 42-75 % Lymphocytes (%) (Auto) 19 12-44 % Monocytes (%) (Auto) 4 0-12 % Eosinophils (%) (Auto) 0 0-10 % Basophils (%) (Auto) 0 0-10 % Neutrophils # (Auto) 7.1 1.8-7.8 X 10^3 Lymphocytes # (Auto) 1.7 1.0-4.0 X 10^3 Monocytes # (Auto) 0.4 0.0-1.0 X 10^3 Eosinophils # (Auto) 0.0 0.0-0.3 10^3/uL Basophils # (Auto) 0.0 0.0-0.1 10^3/uL Immature Granulocyte # (Auto) 0.0 0.0-0.1 10^3/uL Urine Color YELLOW Urine Clarity CLEAR Urine pH 6.5 5-9 Urine Specific [place] 1.010 L 1.016-1.022 Urine Protein NEGATIVE NEGATIVE Urine Glucose (UA) 3+ H NEGATIVE Urine Ketones NEGATIVE NEGATIVE Urine Nitrite NEGATIVE NEGATIVE Urine Bilirubin NEGATIVE NEGATIVE Urine Urobilinogen 0.2 < = 1.0 MG/DL Urine Leukocyte Esterase NEGATIVE NEGATIVE Urine RBC (Auto) NEGATIVE NEGATIVE Urine RBC RARE /HPF Urine WBC RARE /HPF Urine Squamous Epithelial Cells 0-2 /HPF Urine Crystals NONE /LPF Urine Bacteria NEGATIVE /HPF Urine Casts NONE /LPF Urine Mucus NEGATIVE /LPF Urine Culture Indicated NO Sodium Level 134 L 135-145 MMOL/L Potassium Level 4.5 3.6-5.0 MMOL/L Chloride Level 99 98-107 MMOL/L Carbon Dioxide Level 23 21-32 MMOL/L Anion Gap 12 5-14 MMOL/L Blood Urea Nitrogen 17 7-18 MG/DL Creatinine 1.11 0.60-1.30 MG/DL Estimat Glomerular Filtration Rate 51 BUN/Creatinine Ratio 15 Glucose Level 481 *H 70-105 MG/DL Calcium Level 9.1 8.5-10.1 MG/DL Corrected Calcium 9.4 8.5-10.1 MG/DL Total Bilirubin 0.2 0.1-1.0 MG/DL Aspartate Amino Transf (AST/SGOT) 10 5-34 U/L Alanine Aminotransferase (ALT/SGPT) 25 0-55 U/L Alkaline Phosphatase 118 40-136 U/L Total Protein 6.5 6.4-8.2 GM/DL Albumin 3.6 3.2-4.5 GM/DL Lipase 59 8-78 U/L Lactic Acid Level 1.60 0.50-2.00 MMOL/L Glucometer 406 *H 70-110 MG/DL My Orders Orders - DIANE DELCID MD Comprehensive Metabolic Panel (06/13/20 18:09) Lipase (06/13/20 18:09) Ua Culture If Indicated (06/13/20 18:09) Ed Iv/Invasive Line Start (06/13/20 18:09) Cbc With Automated Diff (06/13/20 18:09) Lactic Acid Analyzer (06/13/20 18:09) Ns Iv 1000 Ml (Sodium Chloride 0.9%) (06/13/20 18:15) Insulin (Regular) Human (Novolin R (Per (06/13/20 18:09) Vital Signs/I&O 06/13/20 06/13/20 18:01 19:36 Temp 36.3 Pulse 99 67 Resp 16 17 B/P (MAP) 142/72 (95) 149/81 Pulse Ox 93 97 O2 Delivery Room Air Room Air 06/14/20 00:00 Intake Total 1000 ml Balance 1000 ml Capillary Refill : Less Than 3 Seconds Blood Pressure Mean: 95 Progress Note #1: Progress Note check basic labs and give IV fluids to try and help bring her sugar down. Give 10 units of regular insulin. This would be equivalent to 0.1 units per kilogram. If she does not have any ketones in her urine or abnormal lab other than elevated sugar and her sugar is responding to treatment then she should be stable to go home and may just need to adjust her check back with the clinic about her dosing of insulin. Progress Note #2: Progress Note labs appear stable and her glucose is coming down with treatment. She was not showing any ketones in her urine to indicate DKA. Advised to monitor her sugar and encouraged to check back with the clinic about dosing of her diabetes medications. She may need to check her sugar before eating and take the 25 units of NovoLog instead of the 20 that she had been using. She states that she had been given the weight is 20-25 units depending on how much she was eating however she may just need to use the higher dose based on her sugar other than basing the dose on how much she eats. Departure Impression Primary Impression: Diabetes mellitus with hyperglycemia, with long-term current use of insulin Qualified Codes: E13.65 - Other specified diabetes mellitus with hyperglycemia; Z79.4 - alf (current) use of insulin Disposition: HOME, SELF-CARE Condition: Improved Departure-Patient Inst. Decision time for Depature: 19:26 Referrals: [facility] (PCP) Primary Care Physician ABHILASH NICE APRN (Family) Primary Care Physician Patient Instructions: Hyperglycemia, Adult (DC), How to Prevent High Blood Sugar Emergencies in Diabetes Add. Discharge Instructions: Check back with clinic about your sugars and they may want to adjust your dose of insulins. Check your sugars before you eat to see if you are running high. If you are already high, over 300, then you would want to take the 25 units of Novolog to help bring your sugars down instead of the 20 units, regardless of what you are eating. All discharge instructions reviewed with patient and/or family. Voiced understanding. DIANE DELCID MD Jun 13, 2020 18:14
[2020-06-13] MEDS ORDERED: NS IV 1000 ML 1,000 ML IV SCH (18:15)
[2020-06-13 18:24] LABS: HEMATOCRIT 35 % (35-52); HEMOGLOBIN 10.8 G/DL (11.5-16.0); MEAN CORPUSCULAR HEMOGLOBIN 28 PG (25-34); WHITE BLOOD COUNT 9.3 10^3/uL (4.3-11.0)
[2020-06-13 18:25] LABS: BASOPHILS % (AUTO) 0 % (0-10); EOSINOPHILS % (AUTO) 0 % (0-10); LYMPHOCYTES # (AUTO) 1.7 X 10^3 (1.0-4.0); LYMPHOCYTES % (AUTO) 19 % (12-44); MEAN CORPUSCULAR HGB CONC 31 G/DL (32-36); MEAN CORPUSCULAR VOLUME 90 FL (80-99); MEAN PLATELET VOLUME 10.7 FL (7.4-10.4); MONOCYTES # (AUTO) 0.4 X 10^3 (0.0-1.0); MONOCYTES % (AUTO) 4 % (0-12); NEUTROPHILS # (AUTO) 7.1 X 10^3 (1.8-7.8); NEUTROPHILS % (AUTO) 77 % (42-75); PLATELET COUNT 202 10^3/uL (130-400)
[2020-06-13 18:31] LABS: BACTERIA,URINE NEGATIVE /HPF; BILIRUBIN,URINE NEGATIVE (NEGATIVE); CLARITY,URINE CLEAR; COLOR,URINE YELLOW; GLUCOSE, URINE (UA) 3+ (NEGATIVE); KETONES,URINE NEGATIVE (NEGATIVE); LEUKOCYTE ESTERASE ,URINE NEGATIVE (NEGATIVE); NITRITE,URINE NEGATIVE (NEGATIVE); PH,URINE 6.5 (5-9); PROTEIN,URINE NEGATIVE (NEGATIVE); RBC,URINE RARE /HPF; WBC,URINE RARE /HPF
[2020-06-13 18:32] LABS: SQUAMOUS EPITHELIAL CELL,UR 0-2 /HPF
[2020-06-13 18:45] LABS: ALBUMIN 3.6 GM/DL (3.2-4.5); BILIRUBIN,TOTAL 0.2 MG/DL (0.1-1.0); CALCIUM 9.1 MG/DL (8.5-10.1); CREATININE SERUM 1.11 MG/DL (0.60-1.30); POTASSIUM 4.5 MMOL/L (3.6-5.0); TOTAL PROTEIN 6.5 GM/DL (6.4-8.2)
[2020-06-13 19:36] VITALS: BP 149/81
== END 2020-06-13 19:35 | disposition home or self-care (01) ==
LOC: EDUNIT# 17:53 → ER FS 17:55
DX: E11.65 Type 2 diabetes mellitus with hyperglycemia (principal); J44.9 Chronic obstructive pulmonary disease, unspecified; F31.9 Bipolar disorder, unspecified; F41.9 Anxiety disorder, unspecified; E66.9 Obesity, unspecified; Z68.35 Body mass index [BMI] 35.0-35.9, adult; Z85.51 Personal history of malignant neoplasm of bladder; Z85.528 Personal history of other malignant neoplasm of kidney; Z77.22 Contact with and (suspected) exposure to environmental tobacco smoke (acute) (chronic); Z88.8 Allergy status to other drugs, medicaments and biological substances; Z79.4 Long term (current) use of insulin; Z79.52 Long term (current) use of systemic steroids
CPT/HCPCS: 36415; 80053; 81000; 82962; 83605; 83690; 85025

== ENCOUNTER → 2020-09-13 | Outpatient (CLI) | payer MEDICARE, MEDICAID ==
[~2020-09-13] MED LIST changes: +CATHETER FLUSH 10 ML SYR IV PRN; +ESCI-2; -ESCI10TA55; +ESCI20TA39 PO; -ESCI20TA45 PO; +HOLD METFORMIN - RECEIVED CONTRAST 20 ML VIAL IV SCH; +IOHEXOL 350 MG/ML 100 ML (OMNIPAQUE 350) VIAL IV ONE; -LISI-556 PO; +LISI-729 PO; +NS 100 ML (IVPB) BAG IV ONE; -OXYC-471 PO; +OXYC1TAB11 PO
[2020-09-13 10:04] LABS: HEMATOCRIT 38 % (35-52); HEMOGLOBIN 12.2 G/DL (11.5-16.0); MEAN CORPUSCULAR HEMOGLOBIN 28 PG (25-34); MEAN CORPUSCULAR HGB CONC 32 G/DL (32-36); MEAN CORPUSCULAR VOLUME 89 FL (80-99); WHITE BLOOD COUNT 9.3 10^3/uL (4.3-11.0)
[2020-09-13 10:05] LABS: BASOPHILS % (AUTO) 1 % (0-10); EOSINOPHILS % (AUTO) 2 % (0-10); LYMPHOCYTES % (AUTO) 28 % (12-44); MEAN PLATELET VOLUME 9.6 FL (7.4-10.4); MONOCYTES % (AUTO) 6 % (0-12); NEUTROPHILS # (AUTO) 5.9 X 10^3 (1.8-7.8); NEUTROPHILS % (AUTO) 64 % (42-75); PLATELET COUNT 225 10^3/uL (130-400)
[2020-09-13 10:07] LABS: LYMPHOCYTES # (AUTO) 2.6 X 10^3 (1.0-4.0)
[2020-09-13 10:08] LABS: BASOPHILS # (AUTO) 0.1 10^3/uL (0.0-0.1); EOSINOPHILS # (AUTO) 0.2 10^3/uL (0.0-0.3); MONOCYTES # (AUTO) 0.5 X 10^3 (0.0-1.0)
[2020-09-13 10:46] LABS: CREATININE SERUM 1.03 MG/DL (0.60-1.30); POTASSIUM 4.2 MMOL/L (3.6-5.0)
[2020-09-13 10:47] LABS: BILIRUBIN,TOTAL 0.2 MG/DL (0.1-1.0); CALCIUM 9.2 MG/DL (8.5-10.1); TOTAL PROTEIN 6.9 GM/DL (6.4-8.2)
--- NOTE | 2020-09-13 12:40 | Diagnostic Imaging Report ---
PROCEDURE: CT chest, abdomen, and pelvis with and without contrast. TECHNIQUE: Precontrast images were obtained of the chest, abdomen, and pelvis. Multiple contiguous axial images were obtained through the chest, abdomen, and pelvis after administration of intravenous contrast. Auto Exposure Controls were utilized during the CT exam to meet ALARA standards for radiation dose reduction. INDICATION: Malignant neoplasm of the right ureter. COMPARISON: CT chest, abdomen and pelvis of 03/16/2020. FINDINGS: CT CHEST: No endoluminal nodule within trachea. Mild centrilobular emphysema is unchanged. No pulmonary mass or nodule has developed. Peribronchial thickening with scattered small airways with mucus plugging in lung bases is compatible with chronic bronchitis. Right apical subpleural linear nodules unchanged and likely due to focus of atelectasis. No new pulmonary nodule, mass or consolidation. No mediastinal, hilar or juxtaphrenic lymphadenopathy. Heart is normal in size without pericardial effusion. No pleural effusion or pneumothorax. No concerning focal osseous lesions have developed. CT ABDOMEN AND PELVIS: No free intraperitoneal air or fluid. Unchanged hepatomegaly with diffuse hepatic steatosis. No focal hepatic lesion has developed. Cholecystectomy. No pathologic biliary duct dilatation. The spleen and pancreas are normal. No adrenal mass. Status post right nephrectomy without recurrent mass in the nephrectomy bed. Left kidney enhances normally without mass lesion or obstruction. Urinary bladder is normal in appearance. Stomach is partially filled with fluid. No dilated loops of bowel to indicate bowel obstruction. No pericolonic inflammatory change. No worrisome focal osseous lesions. IMPRESSION: 1. No change that would indicate local recurrence or metastatic disease. Dictated by: Dictated on workstation # [id number]
== END ==
LOC: RAD FS 09:36
PROVIDERS: ATTEND Internal Medicine Hematology & Oncology
DX: C66.1 Malignant neoplasm of right ureter (principal)
CPT/HCPCS: 36415; 71270; 74178; 80053; 82728; 83540; 83615; 85025

== ENCOUNTER 2020-12-08 16:47 | Emergency (ER) | payer MEDICARE, MEDICAID ==
[~2020-12-08] VITALS: Ht 170.2 cm; Wt 101.6 kg
[~2020-12-08 16:47] MED LIST changes: -CATHETER FLUSH 10 ML SYR IV PRN; -HOLD METFORMIN - RECEIVED CONTRAST 20 ML VIAL IV SCH; -IOHEXOL 350 MG/ML 100 ML (OMNIPAQUE 350) VIAL IV ONE; -NS 100 ML (IVPB) BAG IV ONE
[2020-12-08 16:48] VITALS: BP 133/66
[2020-12-08] MEDS ORDERED: RT-ALBUTEROL/IPRATROPIUM 3 ML (DUONEB) VIAL INH ONE (17:00)
--- NOTE | 2020-12-08 17:02 | ED Cough/URI ---
General Chief Complaint: Respiratory Problems Stated Complaint: SOB; CHEST CONGESTION Nursing Triage Note: Patient states she has had increased shortness of breath for 2 weeks, states she is planning on having a stress test and echo soon. Sepsis Screen: No Definite Risk History of Present Illness Date Seen by Provider: December 08, 2020 Time Seen by Provider: 06:50 Initial Comments 55-year-old female with past medical history significant for COPD presents with cough and shortness of air for the past 2 weeks. Using her inhalers and still smoking, but states she is cutting down to only 2 cartons per month now. Has not seen her doctor for the cough. Allergies and Home Medications Allergies Coded Allergies: hydroxyzine (Verified Allergy, Unknown, 01/23/20) Home Medications Albuterol Sulfate 1 Puff Puff, 2 PUFF IH Q4H PRN for SHORTNESS OF BREATH, (Reported) 1 PUFF = 90 MCG Cholecalciferol (Vitamin D3) 50 Mcg Capsule, 50 MCG PO DAILY, (Reported) Escitalopram Oxalate 20 Mg Tablet, 20 MG PO DAILY, (Reported) Ferrous Sulfate 325 Mg Tablet, 325 MG PO DAILY, (Reported) Fluticasone Propion/Salmeterol 1 Each Blst.w.dev, 1 PUFF INH DAILY, (Reported) Gabapentin 100 Mg Capsule, 100 MG PO DAILY, (Reported) Glucosa Tan 2Kcl/Chondroitin Tan 1 Each Capsule, 1 EACH PO DAILY, (Reported) Ibuprofen 800 Mg Tablet, 800 MG PO Q8H PRN for PAIN-MILD, (Reported) Insulin Aspart 100 Unit/1 Ml Susp, UNITS PER PUMP, (Reported) Ipratropium [place] 12.9 Gm Aers, 2 PUFF IH QID Prescribed by: AILYN WEEKS on 05/25/20 0709 Ipratropium/Albuterol Sulfate 3 Ml Ampul.neb, 3 ML IH Q6H PRN for SHORTNESS OF BREATH Prescribed by: EDNA KENT on 12/08/20 1703 L.acidoph & Paracasei,B.lactis 1 Each Capsule, 1 EACH PO DAILY, (Reported) TAKE 3 HOURS AFTER TAKING IRON Linagliptin 5 Mg Tablet, 5 MG PO DAILY, (Reported) LAST FILLED 10/13/2019 Loratadine 10 Mg Tablet, 10 MG PO DAILY, (Reported) Miconazole Nitrate 130 Gm Aero.powd, 1 APPLIC TP PRN, (Reported) APPLIE UNDER BELLY AND BREASTS Mirabegron 25 Mg Tab.er.24h, 25 MG PO DAILY, (Reported) Montelukast Sodium 10 Mg Tablet, 10 MG PO DAILY, (Reported) LAST FILLED 11/13/2019 Olanzapine 10 Mg Tablet, 10 MG PO HS, (Reported) Prednisone 10 Mg Tab, 0 PO UD Take 4 tabs (40mg) daily, decrease by 1 tab (10mg) daily. Prescribed by: AILYN WEEKS on 05/25/20 0709 Prednisone 20 Mg Tab, 40 MG PO DAILY Prescribed by: EDNA KENT on 05/29/20 1329 Prednisone 50 Mg Tab, 50 MG PO DAILY Prescribed by: EDNA KENT on 12/08/20 1703 Ziprasidone 80 Mg Cap, 160 MG PO HS, (Reported) TAKE 2 (80MG) TABLETS Patient Home Medication List Home Medication List Reviewed: Yes Review of Systems Review of Systems Constitutional: No fever; malaise; No weakness EENTM: no symptoms reported Respiratory: see HPI, cough, dyspnea on exertion; No hemoptysis, No phlegm; short of breath; No stridor; wheezing Cardiovascular: No chest pain, No edema, No palpitations, No syncope Gastrointestinal: No abdominal pain, No constipation, No diarrhea, No loss of appetite, No nausea, No vomiting Musculoskeletal: No back pain, No joint pain Skin: No change in color, No lesions, No rash Psychiatric/Neurological: Denies Headache, Denies Numbness, Denies Paresthesia Past Crvinra-Sxtnvh-Bngexh Hx Past Med/Social Hx: Reviewed Nursing Past Med/Soc Hx Patient Social History Drug of Choice: marijuana-states last use 1-2 months ago Type Used: Cigarettes 2nd Hand Smoke Exposure: Yes Recent Infectious Disease Expo: No Recent Hopitalizations: No Immunizations Up To Date Date of Pneumonia Vaccine: Apr 15, 2020 Date of Influenza Vaccine: Mar 16, 2020 Seasonal Allergies Seasonal Allergies: No Past Medical History Surgeries: Yes Abdominal, Hysterectomy, Nephrectomy, Tonsillectomy, Tubal Ligation Respiratory: Yes Asthma, COPD, Emphysema Currently Using CPAP: No (Has CPAP for JUAN ANTONIO but not tolerating) Currently Using BIPAP: No Cardiac: Yes High Cholesterol, Hypertension Neurological: No [employer]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 had recent axilla abscess) Recent Skin Changes Blood Disorders: Yes (HEP C) Adverse Reaction/Blood Tranf: No Physical Exam Vital Signs - First Documented 12/08/20 16:48 Temp 36.3 Pulse 98 Resp 22 B/P (MAP) 133/66 (88) Pulse Ox 98 O2 Delivery Room Air Capillary Refill : Less Than 3 Seconds Height: 5'7.00" Weight: 224lbs. 0.0oz. 101.851633ph; 35.00 BMI Method:Actual General Appearance: WD/WN, no apparent distress HEENT: PERRL/EOMI, normal ENT inspection Neck: non-tender, supple Respiratory: chest non-tender, no respiratory distress, no accessory muscle use, rhonchi, wheezing, expiration Cardiovascular: regular rate, rhythm, no edema, no JVD Gastrointestinal: non tender, soft Extremities: non-tender, normal inspection Neurologic/Psychiatric: alert, normal mood/affect, oriented x 3 Skin: normal color, warm/dry Progress/Results/Core Measures Suspected Sepsis Recent Fever Within 48 Hours: No Infection Criteria Present: None New/Unexplained Altered Menta: No Sepsis Screen: No Definite Risk SIRS Temperature: Pulse: 98 Respiratory Rate: 22 Blood Pressure 133 /66 Mean: 88 Results/Orders My Orders Orders - ROVENSTINECORTEZEDNA L DO Chest 1 View Ap/Pa Only (12/08/20 16:56) Albuterol/Ipra Inhalation Soln (Duoneb I (12/08/20 17:00) Svn Small Volume Nebulizer (12/08/20 16:56) Medications Given in ED Current Medications Medications Dose Ordered Sig/Yoselyn Route Start Time Stop Time Status Last Admin Dose Admin Albuterol/ Ipratropium 3 ml ONCE ONCE INH 12/08/20 17:00 12/08/20 17:01 DC 12/08/20 17:02 3 ML Vital Signs/I&O 12/08/20 16:48 Temp 36.3 Pulse 98 Resp 22 B/P (MAP) 133/66 (88) Pulse Ox 98 O2 Delivery Room Air Capillary Refill : Less Than 3 Seconds Blood Pressure Mean: 88 Progress Note : Progress Note feeling better after Duoneb, discussed CXR result, encouraged to stop smoking and to f/u closely w PCP this week, ER sooner if worse. Departure Impression Primary Impression: COPD with exacerbation Disposition: HOME, SELF-CARE Condition: Improved Departure-Patient Inst. Decision time for Depature: 17:10 Referrals: [facility] (PCP) Primary Care Physician ABHILASH NICE APRN (Family) Primary Care Physician Patient Instructions: COPD Exacerbation, Adult ED Add. Discharge Instructions: Follow up with your PCP in 2 days if not improving, ER sooner if worse All discharge instructions reviewed with patient and/or family. Voiced understanding. Scripts Ipratropium/Albuterol Sulfate (Iprat-Albut 0.5-3(2.5) mg/3 ml) 3 Ml Ampul.neb 3 ML IH Q6H PRN for SHORTNESS OF BREATH, #30 EACH Prov: EDNA KENT DO 12/08/20 Prednisone (Prednisone) 50 Mg Tab 50 MG PO DAILY, #7 TAB Prov: EDNA KENT DO 12/08/20 EDNA KENT DO December 08, 2020 17:02
[2020-12-08] MEDS ORDERED: PRD50T PO (17:03)
[2020-12-08] MEDS ORDERED: IPRA3AMP31 IH (17:03)
--- NOTE | 2020-12-08 17:07 | Diagnostic Imaging Report ---
INDICATION: Shortness of air, cough COMPARISON: 05/29/2020 TECHNIQUE: Single radiograph of the chest dated 12/08/2020 FINDINGS: Port-A-Cath is again identified with the port overlying the left chest. The cardiac silhouette is within normal limits in size. No significant pulmonary vascular congestion. The lungs are clear of focal pulmonary opacity. No pleural effusion. No pneumothorax. No acute osseous abnormality. IMPRESSION: No acute cardiopulmonary abnormality. Dictated by: Dictated on workstation # [id number]
== END 2020-12-08 17:14 | disposition home or self-care (01) ==
LOC: EDUNIT# 16:47 → ER FS 16:48
DX: J43.9 Emphysema, unspecified (principal); I10 Essential (primary) hypertension; E11.9 Type 2 diabetes mellitus without complications; F31.9 Bipolar disorder, unspecified; F41.0 Panic disorder [episodic paroxysmal anxiety]; F17.210 Nicotine dependence, cigarettes, uncomplicated; Z79.4 Long term (current) use of insulin; Z79.899 Other long term (current) drug therapy; Z79.52 Long term (current) use of systemic steroids; Z79.51 Long term (current) use of inhaled steroids
CPT/HCPCS: 71045

== ENCOUNTER 2020-12-17 13:34 | Emergency (ER) | payer MEDICARE, MEDICAID ==
[~2020-12-17 13:34] MED LIST changes: +IPRA3AMP31 IH
[2020-12-17 13:40] VITALS: BP 139/70
--- NOTE | 2020-12-17 13:55 | ED Upper Extremity ---
General Chief Complaint: Upper Extremity Stated Complaint: FALL; LT ARM/RT SHOULDER & HEAD INJ Nursing Triage Note: Fell about 1 hour ago. Hit left arm and right side and right shoulder. Hit head as well. No loc. Does not take blood thinners. Left arm pain and right shoulder is 7/10. Nursing Sepsis Screen: No Definite Risk Source: patient Exam Limitations: no limitations History of Present Illness Date Seen by Provider: Dec 17, 2020 Time Seen by Provider: 13:40 Initial Comments Patient is a 55-year-old female who presents with right shoulder blade pain, minor headache and left wrist pain after tripping 1 hour prior to ED arrival. Patient states she tripped on her purse. She denies loss of consciousness, posterior neck pain, and is not on anticoagulation therapy. Patient has light bruising to her the flexor surface of her distal forearm. She has full range of motion of left wrist shoulder and arm. She rates pain is mild to moderate. No other acute symptoms or complaints. She did not take any medications prior to ED arrival. Onset: just prior to arrival Severity: moderate Pain/Injury Location: left shoulder; right forearm Method of Injury: other Modifying Factors: Improves With Other Allergies and Home Medications Allergies Coded Allergies: hydroxyzine (Verified Allergy, Unknown, 01/23/20) Home Medications Albuterol Sulfate 1 Puff Puff, 2 PUFF IH Q4H PRN for SHORTNESS OF BREATH, (Reported) 1 PUFF = 90 MCG Cholecalciferol (Vitamin D3) 50 Mcg Capsule, 50 MCG PO DAILY, (Reported) Escitalopram Oxalate 20 Mg Tablet, 20 MG PO DAILY, (Reported) Ferrous Sulfate 325 Mg Tablet, 325 MG PO DAILY, (Reported) Fluticasone Propion/Salmeterol 1 Each Blst.w.dev, 1 PUFF INH DAILY, (Reported) Gabapentin 100 Mg Capsule, 100 MG PO DAILY, (Reported) Glucosa Tan 2Kcl/Chondroitin Tan 1 Each Capsule, 1 EACH PO DAILY, (Reported) Ibuprofen 800 Mg Tablet, 800 MG PO Q8H PRN for PAIN-MILD, (Reported) Insulin Aspart 100 Unit/1 Ml Susp, UNITS PER PUMP, (Reported) Ipratropium [place] 12.9 Gm Aers, 2 PUFF IH QID Prescribed by: AILYN WEEKS on 05/25/20 0709 Ipratropium/Albuterol Sulfate 3 Ml Ampul.neb, 3 ML IH Q6H PRN for SHORTNESS OF BREATH Prescribed by: EDNA KENT on 12/08/20 1703 Dudleyacidoph & OzielB.lactis 1 Each Capsule, 1 EACH PO DAILY, (Reported) TAKE 3 HOURS AFTER TAKING IRON Linagliptin 5 Mg Tablet, 5 MG PO DAILY, (Reported) LAST FILLED 10/13/2019 Loratadine 10 Mg Tablet, 10 MG PO DAILY, (Reported) Miconazole Nitrate 130 Gm Aero.powd, 1 APPLIC TP PRN, (Reported) APPLIE UNDER BELLY AND BREASTS Mirabegron 25 Mg Tab.er.24h, 25 MG PO DAILY, (Reported) Montelukast Sodium 10 Mg Tablet, 10 MG PO DAILY, (Reported) LAST FILLED 11/13/2019 Olanzapine 10 Mg Tablet, 10 MG PO HS, (Reported) Prednisone 10 Mg Tab, 0 PO UD Take 4 tabs (40mg) daily, decrease by 1 tab (10mg) daily. Prescribed by: AILYN WEEKS on 05/25/20 0709 Prednisone 20 Mg Tab, 40 MG PO DAILY Prescribed by: EDNA KENT on 05/29/20 1329 Prednisone 50 Mg Tab, 50 MG PO DAILY Prescribed by: EDNA KENT on 12/08/20 1703 Ziprasidone 80 Mg Cap, 160 MG PO HS, (Reported) TAKE 2 (80MG) TABLETS Patient Home Medication List Home Medication List Reviewed: Yes Review of Systems Constitutional: no symptoms reported EENTM: no symptoms reported Respiratory: no symptoms reported Cardiovascular: no symptoms reported Gastrointestinal: no symptoms reported Genitourinary: no symptoms reported Musculoskeletal: no symptoms reported Skin: no symptoms reported Psychiatric/Neurological: No Symptoms Reported Past Hmrzbxt-Laaoll-Tgcmgb Hx Past Med/Social Hx: Reviewed Nursing Past Med/Soc Hx Patient Social History Alcohol Use: Denies Use Drug of Choice: marijuana-states last use 1-2 months ago Smoking Status: Current Someday Smoker Type Used: Cigarettes 2nd Hand Smoke Exposure: Yes Recent Infectious Disease Expo: No Recent Hopitalizations: No Immunizations Up To Date Date of Pneumonia Vaccine: Apr 15, 2020 Date of Influenza Vaccine: Mar 16, 2020 Seasonal Allergies Seasonal Allergies: No Past Medical History Surgeries: Yes Abdominal, Hysterectomy, Nephrectomy, Tonsillectomy, Tubal Ligation Respiratory: Yes Asthma, COPD, Emphysema Currently Using CPAP: No (Has CPAP for JUAN ANTONIO but not tolerating) Currently Using BIPAP: No Cardiac: Yes High Cholesterol, Hypertension 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 had recent axilla abscess) Recent Skin Changes Blood Disorders: Yes (HEP C) Adverse Reaction/Blood Tranf: No Physical Exam Vital Signs Vital Signs - First Documented 12/17/20 13:40 Temp 36.1 Pulse 67 Resp 18 B/P (MAP) 139/70 (93) Pulse Ox 98 Capillary Refill : Less Than 3 Seconds Height, Weight, BMI Height: 5'7.00" Weight: 224lbs. 0.0oz. 101.966498ej; 35.00 BMI Method:Actual General Appearance: no apparent distress HEENT: PERRL/EOMI, normal ENT inspection, pharynx normal, other (Right scalp tenderness, no contusion or hematoma appreciated. 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 Patient denies feeling dazed, loss of consciousness or nausea vomiting. No midline neck tenderness. Patient with left forearm right shoulder contusion and scalp contusion with headache. Ice pack and Tylenol provided. Recommendations are for supportive care watchful waiting and PCP follow-up. Return precautions reviewed. Patient verbalizes understanding and agreement discharge instructions prior to departure. Impression Primary Impression: Scalp contusion Additional Impressions: Contusion of left forearm Sprain of right shoulder Disposition: HOME, SELF-CARE Condition: Stable Departure-Patient Inst. Decision time for Depature: 13:54 Referrals: ABHILASH NICE APRN (PCP) Primary Care Physician MANASA WILCOX MD (Family) Primary Care Physician Patient Instructions: Closed Head Injury, Shoulder Sprain (DC), Wrist Sprain ED Add. Discharge Instructions: Please apply ice to affected area. You may take Tylenol or ibuprofen for additional pain relief. Follow-up with your PCP if further concerns. Return to the ED if new or worsening symptoms. All discharge instructions reviewed with patient and/or family. Voiced understanding. JAZIEL WONG DO Dec 17, 2020 13:55
[2020-12-17] MEDS ORDERED: ACETAMINOPHEN 500 MG TAB (TYLENOL) PO ONE (14:00)
== END 2020-12-17 14:03 | disposition home or self-care (01) ==
LOC: EDUNIT# 13:34 → ER FS 13:36
DX: S43.401A Unspecified sprain of right shoulder joint, initial encounter (principal); S00.03XA Contusion of scalp, initial encounter; S50.12XA Contusion of left forearm, initial encounter; I10 Essential (primary) hypertension; E11.9 Type 2 diabetes mellitus without complications; J43.9 Emphysema, unspecified; G47.33 Obstructive sleep apnea (adult) (pediatric); F41.0 Panic disorder [episodic paroxysmal anxiety]; F31.9 Bipolar disorder, unspecified; F17.210 Nicotine dependence, cigarettes, uncomplicated; Z99.89 Dependence on other enabling machines and devices; Z79.899 Other long term (current) drug therapy; Z79.4 Long term (current) use of insulin; W01.198A Fall on same level from slipping, tripping and stumbling with subsequent striking against other object, initial encounter
CPT/HCPCS: 99283

== ENCOUNTER 2020-12-30 13:00 | Outpatient (RCR) | payer MEDICARE, MEDICAID ==
[~2020-12-30 13:00] MED LIST changes: -INSU100V16; +INSU100V16 SQ; -OLAN10TA19; -OLAN10TA19 PO; +OLAN10TA71; +OLAN10TA71 PO
[2021-02-08] MEDS ORDERED: TRM50T PO ×2 (09:08→11:27)
[2021-03-05] MEDS ORDERED: PROM25TA14 PO (14:07)
[2021-03-09] MEDS ORDERED: IPR14IN IH (09:12)
[2021-03-09] MEDS ORDERED: SIME180C65 PO (09:12)
[2021-03-09] MEDS ORDERED: ACET-2267 PO (09:12)
[2021-03-09] MEDS ORDERED: ROFL500T PO ×2 (09:12→09:33)
[2021-03-09] MEDS ORDERED: NFNEB10T PO ×2 (09:12→09:33)
[2021-03-09] MEDS ORDERED: BENZ100C18 PO (09:12)
[2021-03-09] MEDS ORDERED: TRM50T PO (09:12)
[2021-03-09] MEDS ORDERED: PROM25TA14 PO (09:12)
[2021-03-09] MEDS ORDERED: METF-865 PO ×2 (09:12→11:01)
[2021-03-09] MEDS ORDERED: INSU100I29 SQ (09:12)
[2021-03-09] MEDS ORDERED: NAPR-1033 PO (09:12)
[2021-03-09] MEDS ORDERED: COLE1TAB PO (09:12)
[2021-03-09] MEDS ORDERED: LISI-729 PO (09:12)
[2021-03-09] MEDS ORDERED: SEMA1PEN3 INJ (09:33)
[2021-03-09] MEDS ORDERED: INSU200I4 SQ (09:33)
[2021-03-16] MEDS ORDERED: TRAM50TA3 PO (10:58)
[2021-03-16] MEDS ORDERED: [UNRECOGNIZED DRUG - CODE] TP (10:58)
[2021-03-16] MEDS ORDERED: INSU100I14 SC (10:58)
[2021-03-16] MEDS ORDERED: METF-478 PO (10:58)
[2021-03-16] MEDS ORDERED: ZIPR80CA21 PO (10:58)
[2021-03-16] MEDS ORDERED: ACET-3075 PO (10:58)
== END 2021-03-30 | disposition home or self-care (01) ==
LOC: CARD 13:00
PROVIDERS: ATTEND Internal Medicine Cardiovascular Disease
DX: R07.9 Chest pain, unspecified (principal); I10 Essential (primary) hypertension; E78.5 Hyperlipidemia, unspecified; R06.02 Shortness of breath
CPT/HCPCS: 93225; 93226; 93306

== ENCOUNTER → 2020-12-30 | Outpatient (CLI) | payer MEDICARE, MEDICAID ==
--- NOTE | 2020-12-30 18:37 | Diagnostic Imaging Report ---
CLINICAL INDICATION: Patient with left hand numbness. No known injury. EXAM: MRI of the cervical spine performed without IV contrast. Sequences include sagittal T2, sagittal T1, sagittal T2 fat-sat, and axial T2. COMPARISON: None. FINDINGS: There is no acute cervical spine fracture. There is straightening of the cervical spine posture. There is no significant abnormal vertebral body signal. Limited visualization of posterior fossa is unremarkable. There is a roughly 4 mm amorphous area of intramedullary increased T2 signal involving the cervical cord seen at the C4-C5 disk space region. There is also deformity of the cord is region due to disk herniation. There is no significant paraspinal soft tissue abnormality. There are hypertrophic spurs involving the cervical spine. C1-C2: Unremarkable. C2-C3: There is moderate right facet arthropathy and mild left facet arthropathy. There is ligamentum flavum buckling. There is mild central canal narrowing. There is no significant neuroforaminal narrowing. C3-C4: There is moderate bilateral facet arthropathy. There is a small broad posterior disk herniation. There is moderate central canal stenosis, severe left neuroforaminal narrowing and moderate right neuroforaminal narrowing. C4-C5: There is a diffuse disk bulge and moderate loss of disk space height. There are bilateral uncinate spurs. There is a superimposed broad small to moderate disk herniation/extrusion. There is severe central canal stenosis with significant deformity of the cervical cord. There is motion artifact limiting evaluation. There is moderate to severe bilateral neuroforaminal narrowing. C5-C6: There is a diffuse disk bulge and moderate loss of disk space height with bilateral uncinate spurs. There is mild bilateral facet arthropathy. There is severe left neuroforaminal narrowing and mild right neuroforaminal narrowing. There is severe central canal stenosis. C6-C7: There is a subtle posterior disk bulge. There is mild bilateral facet arthropathy. There is no significant neuroforaminal narrowing. There is mild central canal stenosis. C7-T1: There is no significant central spinal canal or neural foramen narrowing. IMPRESSION: 1: There is severe multilevel cervical spine degenerative disk disease which is worse at the C3-C4, C4-C5 and C5-C6 levels. This is described in detail above. 2: There is a C4-C5 diffuse disk bulge with superimposed posterior disk herniation and bilateral facet arthropathy. There is associated severe central canal stenosis and moderate to severe bilateral neuroforaminal narrowing. 3: There is abnormal intramedullary increased T2 signal involving the cervical cord at the C4-C5 level which may be related to cord contusion and/or myelomalacia. 4: The remainder of the cervical spine degenerative disease as described above. Dictated by: Dictated on workstation # [id number]
== END ==
LOC: RAD 12:22
PROVIDERS: ATTEND Nurse Practitioner Family
DX: M47.812 Spondylosis without myelopathy or radiculopathy, cervical region (principal); M50.220 Other cervical disc displacement, mid-cervical region, unspecified level; M50.221 Other cervical disc displacement at C4-C5 level; M50.222 Other cervical disc displacement at C5-C6 level; M50.223 Other cervical disc displacement at C6-C7 level; M48.02 Spinal stenosis, cervical region; M24.28 Disorder of ligament, vertebrae
CPT/HCPCS: 72141

== ENCOUNTER 2021-02-08 08:50 | Emergency (ER) | payer MEDICARE, MEDICAID ==
[~2021-02-08] VITALS: Ht 170 cm; Wt 99.0 kg
[~2021-02-08 08:50] MED LIST changes: +INSU100V16; -INSU100V16 SQ
[2021-02-08 08:55] VITALS: BP 100/40
[2021-02-08] MEDS ORDERED: TRM50T PO ×2 (09:08→11:27)
--- NOTE | 2021-02-08 09:09 | ED General ---
General Chief Complaint: Hip/Pelvic Problems Stated Complaint: LT HIP PAIN History of Present Illness Date Seen by Provider: Feb 08, 2021 Time Seen by Provider: 09:04 Initial Comments Patient presenting to emergency department for evaluation of multiple complaints including neck back and left hip pain. She denies any new trauma or overuse and says she woke up with the pain worse this morning. She says all these areas of pain are chronic that have been going on for years and she is seeing specialist and has been told she has bulging disks in multiple areas of her neck and back and she has had radicular symptoms before in the past and this feels the same but she has run out of her tramadol as she left it at a friend's house and the friend cannot mail it to her. She says she is due to get a refill within the next 2 days but is wanting help to get relief of the pain in the interim. She was able to ambulate with normal gait unassisted and denies any unilateral weakness numbness tingling saddle anesthesia bowel or bladder incontinence. She is in no acute distress with normal vital signs. Allergies and Home Medications Allergies Coded Allergies: hydroxyzine (Verified Allergy, Unknown, 01/23/20) Home Medications Albuterol Sulfate 1 Puff Puff, 2 PUFF IH Q4H PRN for SHORTNESS OF BREATH, (Repo rted) 1 PUFF = 90 MCG Cholecalciferol (Vitamin D3) 50 Mcg Capsule, 50 MCG PO DAILY, (Reported) Escitalopram Oxalate 20 Mg Tablet, 20 MG PO DAILY, (Reported) Ferrous Sulfate 325 Mg Tablet, 325 MG PO DAILY, (Reported) Fluticasone Propion/Salmeterol 1 Each Blst.w.dev, 1 PUFF INH DAILY, (Reported) Gabapentin 100 Mg Capsule, 100 MG PO DAILY, (Reported) Glucosa Tan 2Kcl/Chondroitin Tan 1 Each Capsule, 1 EACH PO DAILY, (Reported) Ibuprofen 800 Mg Tablet, 800 MG PO Q8H PRN for PAIN-MILD, (Reported) Insulin Aspart 100 Unit/1 Ml Susp, UNITS PER PUMP, (Reported) Ipratropium [place] 12.9 Gm Aers, 2 PUFF IH QID Prescribed by: AILYN WEEKS on 05/25/20 0709 Ipratropium/Albuterol Sulfate 3 Ml Ampul.neb, 3 ML IH Q6H PRN for SHORTNESS OF BREATH Prescribed by: EDNA KENT on 12/08/20 1703 LDerickacidoph & Paracasei,B.lactis 1 Each Capsule, 1 EACH PO DAILY, (Reported) TAKE 3 HOURS AFTER TAKING IRON Linagliptin 5 Mg Tablet, 5 MG PO DAILY, (Reported) LAST FILLED 10/13/2019 Loratadine 10 Mg Tablet, 10 MG PO DAILY, (Reported) Miconazole Nitrate 130 Gm Aero.powd, 1 APPLIC TP PRN, (Reported) APPLIE UNDER BELLY AND BREASTS Mirabegron 25 Mg Tab.er.24h, 25 MG PO DAILY, (Reported) Montelukast Sodium 10 Mg Tablet, 10 MG PO DAILY, (Reported) LAST FILLED 11/13/2019 Olanzapine 10 Mg Tablet, 10 MG PO HS, (Reported) Prednisone 10 Mg Tab, 0 PO UD Take 4 tabs (40mg) daily, decrease by 1 tab (10mg) daily. Prescribed by: AILYN WEEKS on 05/25/20 0709 Prednisone 20 Mg Tab, 40 MG PO DAILY Prescribed by: EDNA KENT on 05/29/20 1329 Prednisone 50 Mg Tab, 50 MG PO DAILY Prescribed by: EDNA KENT on 12/08/20 1703 Ziprasidone 80 Mg Cap, 160 MG PO HS, (Reported) TAKE 2 (80MG) TABLETS Patient Home Medication List Home Medication List Reviewed: Yes Review of Systems Review of Systems Constitutional: no symptoms reported EENTM: no symptoms reported Respiratory: no symptoms reported Cardiovascular: no symptoms reported Gastrointestinal: no symptoms reported Musculoskeletal: back pain, joint pain, neck pain Skin: no symptoms reported Psychiatric/Neurological: No Symptoms Reported All Other Systems Reviewed Negative Unless Noted: Yes Past Ghvpdzl-Wkscwl-Bufwxn Hx Patient Social History Tobacco Use?: Yes Tobacco type used: Cigarettes Smoking Status: Current Everyday Smoker Use of E-Cig and/or Vaping dev: No Substance use?: Yes Substance type: Marijuana Substance frequency: Daily Alcohol Use?: No Pt feels they are or have been: No Seasonal Allergies Seasonal Allergies: No Past Medical History Surgeries: Yes Abdominal, Hysterectomy, Nephrectomy, Tonsillectomy, Tubal Ligation Respiratory: Yes Asthma, COPD, Emphysema Currently Using CPAP: No (Has CPAP for JUAN ANTONIO but not tolerating) Currently Using BIPAP: No Cardiac: Yes High Cholesterol, Hypertension 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 had recent axilla abscess) Recent Skin Changes Blood Disorders: Yes (HEP C) Adverse Reaction/Blood Tranf: No Physical Exam Vital Signs Capillary Refill : Height, Weight, BMI Height: 5'7.00" Weight: 224lbs. 0.0oz. 101.614296aw; 35.00 BMI Method:Actual General Appearance: No Apparent Distress, WD/WN Neck: Non Tender, Supple Respiratory: No Respiratory Distress Cardiovascular: Regular Rate, Rhythm Back: Normal Inspection, Other (No midline cervical thoracic or lumbar tenderness palpation however she has right cervical paraspinal tenderness to palpation and left lumbar paraspinal tenderness to palpation. She had intact range of motion's of all joints including the left hip actively and passively with no pain to palpation.) Extremity: Normal Capillary Refill Neurologic/Psychiatric: Alert, Oriented x3 Skin: Warm/Dry Progress/Results/Core Measures Suspected Sepsis SIRS Temperature: Pulse: Respiratory Rate: Blood Pressure / Mean: Results/Orders Vital Signs/I&O Capillary Refill : Progress Note : Progress Note Patient has a normal exam with normal gait and no motor or sensory deficits on exam. She is here for pain control so we will give her dose of tramadol here and refill her tramadol for the next 2 days in anticipation of her getting her refill. Patient told to follow-up primary care provider later this week and come back to the ED sooner with any new worsening pain neurologic changes or o ther general concerns. Departure Impression Primary Impression: Left hip pain Additional Impression: Left lumbar radiculopathy Disposition: 01 HOME, SELF-CARE Condition: Stable Departure-Patient Inst. Referrals: SACHIN MARQUEZ APRN (PCP) Primary Care Physician [facility] (Family) Primary Care Physician Patient Instructions: Radiculopathy Scripts Tramadol HCl (Tramadol HCl) 50 Mg Tablet 50 MG PO Q6H PRN for PAIN for 3 Days, #12 TAB 0 Refills Prov: POLA WEBB DO 02/08/21 POLA WEBB DO Feb 08, 2021 09:08
== END 2021-02-08 09:15 | disposition home or self-care (01) ==
LOC: EDUNIT# 08:50 → ER FS 08:52
DX: M54.16 Radiculopathy, lumbar region (principal); J44.9 Chronic obstructive pulmonary disease, unspecified; I10 Essential (primary) hypertension; E11.9 Type 2 diabetes mellitus without complications; F41.9 Anxiety disorder, unspecified; F31.9 Bipolar disorder, unspecified; F17.210 Nicotine dependence, cigarettes, uncomplicated; Z79.52 Long term (current) use of systemic steroids; Z79.4 Long term (current) use of insulin; Z79.899 Other long term (current) drug therapy
CPT/HCPCS: 99283

== ENCOUNTER → 2021-02-23 | Outpatient (CLI) | payer MEDICARE, MEDICAID ==
[~2021-02-23] MED LIST changes: +CATHETER FLUSH 10 ML SYR IV PRN; +REGADENOSON 0.4 MG/5 ML SYR (LEXISCAN) IV ONE
[2021-02-23 09:05] VITALS: BP 124/79
[2021-02-23 09:21] VITALS: BP 147/64
--- NOTE | 2021-02-23 12:26 | Cardiology Stress Test Report ---
Stress Test Report Date of Procedure/Referring: Date of Procedure: Feb 23, 2021 PCP Gloria Borden MD Admitting Physician Center/[facility] Indications: CP Baseline Heart Rate: 91 Baseline Blood Pressure: Blood Pressure Systolic: 147 Blood Pressure Diastolic: 64 Baseline Vitals Vital Signs Date Time Temp Pulse Resp B/P (MAP) Pulse Ox O2 Delivery O2 Flow Rate FiO2 02/23/21 09:05 70 17 124/79 (94) 97 Room Air Baseline EKG: Baseline EKG: NSR Summary After explaining the procedure to the patient, she signed a consent and then brought to the stress nuclear laboratory. Patient received 0.4 mg Lexiscan for stress test, ECG, heart rate and blood pressure were monitored continuously. Resting and stress dose of radio tracer were injected, imaging was acquired and reviewed in short axis, horizontal long axis and vertical long axis views. TID: 1.13 SSS: 5 SDS: 5 EF: 59 1. Patient tolerated Lexiscan well 2. Breast attenuation with reversible ischemia involving the whole anterior wall 3. Normal left ventricular size, EF 59% GLORIA BORDEN MD Feb 23, 2021 12:26
== END ==
LOC: CARD 07:30
PROVIDERS: ATTEND Internal Medicine Cardiovascular Disease
DX: I10 Essential (primary) hypertension (principal); E78.5 Hyperlipidemia, unspecified; R07.9 Chest pain, unspecified; R06.02 Shortness of breath
CPT/HCPCS: 78452; 93017; A9502

== ENCOUNTER 2021-03-05 12:26 | Emergency (ER) | payer MEDICARE, MEDICAID ==
[~2021-03-05] VITALS: Ht 170.2 cm; Wt 97.5 kg
[~2021-03-05 12:26] MED LIST changes: -CATHETER FLUSH 10 ML SYR IV PRN; -INSU100V16; +INSU100V16 SQ; -REGADENOSON 0.4 MG/5 ML SYR (LEXISCAN) IV ONE
[2021-03-05] MEDS ORDERED: morphine INJ 10 MG/ML 1ML (SYR OR VIAL) IVP STA (12:37)
[2021-03-05] MEDS ORDERED: RT-ALBUTEROL/IPRATROPIUM 3 ML (DUONEB) VIAL INH STA (12:37)
--- NOTE | 2021-03-05 12:41 | ED Chest Pain ---
General Chief Complaint: Chest Pain Stated Complaint: CHEST PAIN Source: patient, old records History of Present Illness Date Seen by Provider: Mar 05, 2021 Time Seen by Provider: 12:26 Initial Comments 55-year-old female presenting with complaints of chest pain in the upper part of her chest and left side. She states that she has been having pain for several days. She has been getting short of breath with it as well. She does continue to smoke but is trying to quit. She is scheduled to have a heart cath done with Dr. Borden on Sunday. Since her symptoms were getting worse she decided to come be seen today. She has had some nausea but no vomiting. She has not noticed anything specifically what makes it worse. 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: No Associated Symptoms: No abdominal pain, No back pain, No diaphoresis, No dizziness, No edema, No fatigue, No fever/chills, No headache, No heartburn; nausea/vomiting (nausea but no vomiting); No rash; shortness of breath (chronic) Allergies and Home Medications Allergies Coded Allergies: hydroxyzine (Verified Allergy, Unknown, 01/23/20) Home Medications Albuterol Sulfate 1 Puff Puff, 2 PUFF IH Q4H PRN for SHORTNESS OF BREATH, (Reported) 1 PUFF = 90 MCG Cholecalciferol (Vitamin D3) 50 Mcg Capsule, 50 MCG PO DAILY, (Reported) Escitalopram Oxalate 20 Mg Tablet, 20 MG PO DAILY, (Reported) Ferrous Sulfate 325 Mg Tablet, 325 MG PO DAILY, (Reported) Fluticasone Propion/Salmeterol 1 Each Blst.w.dev, 1 PUFF INH DAILY, (Reported) Gabapentin 100 Mg Capsule, 100 MG PO DAILY, (Reported) Glucosa Tan 2Kcl/Chondroitin Tan 1 Each Capsule, 1 EACH PO DAILY, (Reported) Ibuprofen 800 Mg Tablet, 800 MG PO Q8H PRN for PAIN-MILD, (Reported) Insulin Aspart 100 Unit/1 Ml Susp, UNITS PER PUMP, (Reported) Ipratropium [place] 12.9 Gm Aers, 2 PUFF IH QID Prescribed by: AILYN WEEKS on 05/25/20 0709 Ipratropium/Albuterol Sulfate 3 Ml Ampul.neb, 3 ML IH Q6H PRN for SHORTNESS OF BREATH Prescribed by: EDNA KENT on 12/08/20 1703 LDerickacidoph & Paracasei,B.lactis 1 Each Capsule, 1 EACH PO DAILY, (Reported) TAKE 3 HOURS AFTER TAKING IRON Linagliptin 5 Mg Tablet, 5 MG PO DAILY, (Reported) LAST FILLED 10/13/2019 Loratadine 10 Mg Tablet, 10 MG PO DAILY, (Reported) Miconazole Nitrate 130 Gm Aero.powd, 1 APPLIC TP PRN, (Reported) APPLIE UNDER BELLY AND BREASTS Mirabegron 25 Mg Tab.er.24h, 25 MG PO DAILY, (Reported) Montelukast Sodium 10 Mg Tablet, 10 MG PO DAILY, (Reported) LAST FILLED 11/13/2019 Olanzapine 10 Mg Tablet, 10 MG PO HS, (Reported) Prednisone 10 Mg Tab, 0 PO UD Take 4 tabs (40mg) daily, decrease by 1 tab (10mg) daily. Prescribed by: AILYN WEEKS on 05/25/20 0709 Prednisone 20 Mg Tab, 40 MG PO DAILY Prescribed by: EDNA KENT on 05/29/20 1329 Prednisone 50 Mg Tab, 50 MG PO DAILY Prescribed by: EDNA KENT on 12/08/20 1703 Promethazine HCl 25 Mg Tablet, 12.5 MG PO Q6H PRN for NAUSEA/VOMITING Prescribed by: DIANE DELCID on 03/05/21 1407 Tramadol HCl 50 Mg Tablet, 50 MG PO Q6H PRN for PAIN Prescribed by: POLA WEBB on 02/08/21 0908 Tramadol HCl 50 Mg Tablet, 50 MG PO Q6H PRN for PAIN Prescribed by: POLA WEBB on 02/08/21 1127 Ziprasidone 80 Mg Cap, 160 MG PO HS, (Reported) TAKE 2 (80MG) TABLETS Patient Home Medication List Home Medication List Reviewed: Yes Review of Systems Review of Systems Constitutional: malaise EENTM: No Symptoms Reported Respiratory: SOA With Exertion Cardiovascular: See HPI Gastrointestinal: Nausea; Denies Vomiting Genitourinary: Denies Burning, Denies Frequency Musculoskeletal: no symptoms reported Skin: no symptoms reported Psychiatric/Neurological: Anxiety Past Mijoymn-Iwoqxf-Qwwent Hx Patient Social History Tobacco Use?: Yes Tobacco type used: Cigarettes Smoking Status: Current Everyday Smoker Substance use?: Yes Substance type: Marijuana Seasonal Allergies Seasonal Allergies: No Past Medical History Surgeries: Yes Abdominal, Hysterectomy, Nephrectomy, Tonsillectomy, Tubal Ligation Respiratory: Yes Asthma, COPD, Emphysema Currently Using CPAP: No (Has CPAP for JUAN ANTONIO but not tolerating) Currently Using BIPAP: No Cardiac: Yes High Cholesterol, Hypertension 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 had recent axilla abscess) Recent Skin Changes Blood Disorders: Yes (HEP C) Adverse Reaction/Blood Tranf: No Physical Exam Vital Signs Vital Signs - First Documented 03/05/21 12:26 Temp 35.9 Pulse 85 Resp 18 B/P (MAP) 141/84 (103) Pulse Ox 98 O2 Delivery Room Air Capillary Refill : Less Than 3 Seconds Height, Weight, BMI Height: 5'7.00" Weight: 224lbs. 0.0oz. 101.625314ss; 34.00 BMI Method:Actual General Appearance: Anxious, Obese Neck: Full Range of Motion, Normal Inspection, Non Tender, Supple Respiratory: Chest Non Tender, No Accessory Muscle Use, No Respiratory Distress, Decreased Breath Sounds, Rhonci, Wheezing Cardiovascular: Regular Rate, Rhythm, Normal Peripheral Pulses Gastrointestinal: Normal Bowel Sounds, No Pulsatile Mass, Non Tender, Soft Rectal: Deferred Extremity: Normal Capillary Refill, Normal Inspection, No Pedal Edema Neurologic/Psychiatric: Alert, Oriented x3, No Motor/Sensory Deficits Skin: Normal Color, Warm/Dry Progress/Results/Core Measures Results/Orders Lab Results Laboratory Tests Test 03/05/21 12:26 Range/Units White Blood Count 8.6 4.3-11.0 10^3/uL Red Blood Count 4.47 3.80-5.11 10^6/uL Hemoglobin 12.7 11.5-16.0 g/dL Hematocrit 41 35-52 % Mean Corpuscular Volume 91 80-99 fL Mean Corpuscular Hemoglobin 28 25-34 pg Mean Corpuscular Hemoglobin Concent 31 L 32-36 g/dL Red Cell Distribution Width 15.4 H 10.0-14.5 % Platelet Count 234 130-400 10^3/uL Mean Platelet Volume 9.7 9.0-12.2 fL Immature Granulocyte % (Auto) 0 % Neutrophils (%) (Auto) 53 42-75 % Lymphocytes (%) (Auto) 37 12-44 % Monocytes (%) (Auto) 7 0-12 % Eosinophils (%) (Auto) 2 0-10 % Basophils (%) (Auto) 1 0-10 % Neutrophils # (Auto) 4.6 1.8-7.8 X 10^3 Lymphocytes # (Auto) 3.2 1.0-4.0 X 10^3 Monocytes # (Auto) 0.6 0.0-1.0 X 10^3 Eosinophils # (Auto) 0.2 0.0-0.3 10^3/uL Basophils # (Auto) 0.1 0.0-0.1 10^3/uL Immature Granulocyte # (Auto) 0.0 0.0-0.1 10^3/uL Prothrombin Time 13.2 12.2-14.7 SEC INR Comment 1.0 0.8-1.4 Activated Partial Thromboplast Time 34 24-35 SEC D-Dimer 0.50 H 0.00-0.49 UG/ML Sodium Level 138 135-145 MMOL/L Potassium Level 4.0 3.6-5.0 MMOL/L Chloride Level 104 98-107 MMOL/L Carbon Dioxide Level 22 21-32 MMOL/L Anion Gap 12 5-14 MMOL/L Blood Urea Nitrogen 8 7-18 MG/DL Creatinine 1.08 0.60-1.30 MG/DL Estimat Glomerular Filtration Rate 53 BUN/Creatinine Ratio 7 Glucose Level 146 H 70-105 MG/DL Calcium Level 9.3 8.5-10.1 MG/DL Corrected Calcium 9.1 8.5-10.1 MG/DL Magnesium Level 2.0 1.6-2.4 MG/DL Total Bilirubin 0.2 0.1-1.0 MG/DL Aspartate Amino Transf (AST/SGOT) 25 5-34 U/L Alanine Aminotransferase (ALT/SGPT) 29 0-55 U/L Alkaline Phosphatase 90 40-136 U/L Troponin I < 0.30 <0.30 NG/ML Pro-B-Type Natriuretic Peptide 67.5 <75.0 PG/ML Total Protein 7.0 6.4-8.2 GM/DL Albumin 4.3 3.2-4.5 GM/DL Lipase 604 H 8-78 U/L My Orders Orders - DIANE DELCID MD Cbc With Automated Diff (03/05/21 12:36) Magnesium (03/05/21 12:36) Chest 1 View Ap/Pa Only (03/05/21 12:36) Ekg Tracing (03/05/21 12:36) Comprehensive Metabolic Panel (03/05/21 12:36) Protime With Inr (03/05/21 12:36) Partial Thromboplastin Time (03/05/21 12:36) Monitor-Rhythm Ecg Trace Only (03/05/21 12:36) Aspirin Chewable Tablet (Baby Aspirin Ch (03/05/21 12:45) Ed Iv/Invasive Line Start (03/05/21 12:36) Lipase (03/05/21 12:36) Troponin I Fs (03/05/21 12:36) Probnp Fs (03/05/21 12:36) Fibrin Degradation Products (03/05/21 12:36) Albuterol/Ipra Inhalation Soln (Duoneb I (03/05/21 12:37) Morphine Injection (Morphine Injection (03/05/21 12:37) Svn Small Volume Nebulizer (03/05/21 12:37) Medications Given in ED Current Medications Medications Dose Ordered Sig/Yoselyn Route Start Time Stop Time Status Last Admin Dose Admin Aspirin 324 mg ONCE ONCE PO 03/05/21 12:45 03/05/21 12:46 DC 03/05/21 13:14 324 MG Vital Signs/I&O 03/05/21 12:26 Temp 35.9 Pulse 85 Resp 18 B/P (MAP) 141/84 (103) Pulse Ox 98 O2 Delivery Room Air Progress Progress Note #1: Progress Note Obtain electrocardiogram as well as chest x-ray and cardiac enzymes. Since her symptoms are going on for several days and if she was having heart attack or damage she should show an elevation of her troponin. Try a dose of aspirin as well as morphine to see if it helps with her symptoms. Try breathing treatments and she also has wheezing and rhonchi. Progress Note #2: Progress Note Electrocardiogram does not show any acute ischemic changes. Her chest x-ray is clear of any acute infiltrate or effusion. CBC and chemistry are stable with negative troponin. However she does have an elevated lipase of 604. Reference range for our lab goes up to 78. Pancreatitis certainly could be part of her issues to cause her pressure in chest since no acute myocardial infarction evident on ECG or with testing of Troponin. Progress Note #3: Progress Note On recheck of patient she is feeling better and anxious to go home. she states she is tolerating eating and has some phenergan from Urgent care but could use more to ensure she controls nausea. counseled on need for admit if she has uncontrolled n/v and liquid diet is not controlling her symptoms. Keep appt on Sunday for heart cath. Use breathing treatment at home to help with soa as well. Initial ECG Impression Date: Mar 05, 2021 Initial ECG Impression Time: 12:30 Initial ECG Rate: 77 Initial ECG Rhythm: Normal Sinus Initial ECG Comparisson: Unchanged Comment Normal sinus rhythm with a heart rate of 77 bpm. IA interval [address] elevation. QT interval 422 ms with a QTc interval 478 ms. Appears similar to prior tracings in the system Diagnostic Imaging Diagonstic Imaging: Xray Plain Films/CT/US/NM/MRI: chest Comments NAME: DOMINIQUE PINEDA [facility] REC#: [id number] PT STATUS: REG ER : 1965 PHYSICIAN: DIANE DELCID MD ADMIT DATE: 03/05/21/ER FS Draft Date of Exam:03/05/21 CHEST 1 VIEW AP/PA ONLY Portable erect AP chest at 12:33. Indication: Chest pain and shortness of breath. The heart size is within normal limits and stable when compared to 12/08/2020. The lungs remain clear. There still no sign of failure, pneumonia or pleural effusion. The mediastinum is not widened. The osseous structures are intact. The left-sided Port-A-Cath seen previously is again evident and no different. Impression: There is no evidence for active disease. Dictated on workstation # [id number] Dict: 03/05/21 1254 Trans: 03/05/21 1256 [facility] [id number] Interpreted by: STEPHANIE FRAUSTO MD Electronically signed by: Reviewed: Reviewed by Me Departure Impression Primary Impression: Chest pain Qualified Codes: R07.9 - Chest pain, unspecified Additional Impressions: Short of breath on exertion Elevated lipase Disposition: HOME, SELF-CARE Condition: Improved Departure-Patient Inst. Decision time for Depature: 14:07 Referrals: SACHIN MARQUEZ APRN (PCP) Primary Care Physician [facility] (Family) Primary Care Physician Patient Instructions: Chest Pain, Adult ED, Full Liquid Diet, Lipase Blood Test, Pancreatitis (DC) Add. Discharge Instructions: Try following a liquid diet and avoid greasy/fatty foods. use the nausea medicine to help keep your stomach settled. If you have uncontrolled vomiting and can not keep anything down, have pain in your upper abdomen, worsening chest pain then you could be re-evaluated to see if there is any change. Keep your appointment with Dr. Borden for Heart Catheterization this Sunday. Use breathing treatment at home if you have more shortness of breath. All discharge instructions reviewed with patient and/or family. Voiced understanding. Scripts Promethazine HCl (Promethazine Tablet) 25 Mg Tablet 12.5 MG PO Q6H PRN for NAUSEA/VOMITING for 6 Days, #12 TAB 0 Refills Prov: DIANE DELCID MD 03/05/21 DIANE DELCID MD Mar 05, 2021 12:41
[2021-03-05 12:42] LABS: BASOPHILS # (AUTO) 0.1 10^3/uL (0.0-0.1); BASOPHILS % (AUTO) 1 % (0-10); EOSINOPHILS # (AUTO) 0.2 10^3/uL (0.0-0.3); EOSINOPHILS % (AUTO) 2 % (0-10); HEMATOCRIT 41 % (35-52); HEMOGLOBIN 12.7 g/dL (11.5-16.0); LYMPHOCYTES # (AUTO) 3.2 X 10^3 (1.0-4.0); LYMPHOCYTES % (AUTO) 37 % (12-44); MEAN CORPUSCULAR HEMOGLOBIN 28 pg (25-34); MEAN CORPUSCULAR HGB CONC 31 g/dL (32-36); MEAN CORPUSCULAR VOLUME 91 fL (80-99); MEAN PLATELET VOLUME 9.7 fL (9.0-12.2); MONOCYTES # (AUTO) 0.6 X 10^3 (0.0-1.0); MONOCYTES % (AUTO) 7 % (0-12); NEUTROPHILS # (AUTO) 4.6 X 10^3 (1.8-7.8); NEUTROPHILS % (AUTO) 53 % (42-75); PLATELET COUNT 234 10^3/uL (130-400); WHITE BLOOD COUNT 8.6 10^3/uL (4.3-11.0)
[2021-03-05] MEDS ORDERED: ASPIRIN 81 MG CHEW (CHILDREN'S ASA) PO ONE (12:45)
--- OUTSIDE RECORDS SUMMARY | 2021-03-05 12:53 | XMS REPORT | Clinical Summary ---
Author Author Admin, Jessica Cervantes Organization [facility] Address Unknown Phone Unavailable Allergies, Adverse [...] Body Mass Index 36.0-36.9, adult BMI 37-37.9 Refinement Halle Sahni MD Body Mass Index 36.0-36.9, adult BMI 36-36.9 Refinement Halle Sahni MD Body Mass Index 36.0-36.9, adult BMI 35-35.9 Active Halle Sahni MD Body Mass Index 36.0- 36.9, adult Obesity Class II (BMI 35-39.9) Active Halle Sahni MD Obesity, unspecified Nicotine dependence, cigarettes, with other nicotine-induced disorders 292.89 Active Halle Sahni MD Other sp ecified drug-induced mental disorders Overactive Bladder Active Halle bowles MD Hypertonicity of bladder Other microscopic hematuria ICD-599.70 Inactive Hardeep Barker MD Hydronephrosis, right ICD-591 Inactive Rosemary Barker MD Hematuria ICD-599.70 Inactive Hardeep osorio MD Hydronephrosis with ureteral stricture, not elsewhere classi fied ICD-591 Inactive Hardeep Barker MD BMI 36-36.9 Inactive Nay Elder Hernia, 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.20 Inactive Hardeep Castillo MD Morbid obesity due to excess calories ICD-278.00 I nactive Nay Escamilla Other specified complications of surgica l and medical care, not elsewhere classified, initial encounter ICD-998.13 Inactive Hardeep Barker MD Medication List Medication Instructions Start Date Stop Date Generic Name NDC Status Provider Patient Instruction TOVIAZ 4 MG ORAL TABLET EXTENDED RELEASE 24 HOUR 1 tablet daily FESOTERODINE FUMARATE 33082350603 No Longer Active Halle aviles MD Active MYRBETRIQ 25 MG ORAL TABLET EXTENDED RELEASE 24 HOUR 1 tab b y mouth daily MIRABEGRON 02917997111 Active Nay Andi Acti ve ULTRAM 50 MG ORAL TABLET 1 tablet twice daily T RAMADOL HCL 50458667372 Active Halle Sahni MD Active BACTRIM DS 800-160 MG ORAL TABLET 1 tab BID SULFAMETHOXAZOLE-TRIMETHOPRIM 78429397767 No Longer Active Hardeep Barker MD Active LEVEMIR FLEXTOUCH 100 UNIT/ML SUBCUTANEOUS SOLUTION PE N-INJECTOR 100 units twice daily INSULIN DETEMIR 01800340415 Active Hardeep osorio MD Active NOVOLOG PENFILL 100 UNIT/ML SUBCUTANEOUS SOLUTION CART RIDGE 50 units twice daily INSULIN ASPART 83940610274 Active Hardeep bowles MD Active GEODON 80 MG ORAL CAPSULE 2 cap at Bedtime ZIP RASIDONE HCL 40914316750 Active Hardeep Barker MD Active MECLIZINE HCL 12.5 MG ORAL TABLET ME CLIZINE HCL 84306909210 No Longer Active Hardeep Barker MD Active LEVAQUIN 500 MG ORAL TABLET 1 tab twice daily LEVOFLOXACIN 67219842514 No Longer Active Halle Sahni MD Acti ve DIFLUCAN 150 MG ORAL TABLET FLUCONAZOL E 82162133545 No Longer Active Halle Sahni MD Active LIPITOR 10 MG ORAL TABLET 1 tab by mouth daily ATORVASTATIN CALCIUM 72180817780 Active Halle Sahni MD Active BYSTOLIC 5 MG ORAL TABLET 1 tab by mouth daily NEBIVOLOL HCL 89157913342 Active Halle Sahni MD Active TRADJENTA 5 MG ORAL TABLET 1 tab by mouth daily LINAGLIPTIN 63245353696 Active Halle Sahni MD Active LISINOPRIL 5 MG ORAL TABLET 1 po qd LISINOPRIL 263178 14634 Active Halle Sahni MD Active LEXAPRO 10 MG ORAL TABLET 1 tablet by mouth daily ESCITALOPRAM OXALATE 33024633878 Active Halle Sahni MD Active METFORMIN HCL 500 MG ORAL TABLET 1 tablet by mouth three times d aily METFORMIN HCL 37147734341 Active Halle Sahni MD A ctive DIFLUCAN 150 MG ORAL TABLET DIFLUCAN 150 MG ORAL TABLET 947838 FLUCONAZOLE Inactive LEVAQUIN 500 MG ORAL TABLET 1 tab twice daily LEVAQUIN 500 MG ORAL TABLET 550785 LEVOFLOXACIN Inactive MECLIZINE HCL 12.5 MG ORAL TABLET MECLIZINE HCL 12.5 MG ORAL TABLET 452828 MECLIZINE HCL Inactive BACTRIM DS 800-160 MG ORAL TABLET 1 tab BID BACTRIM DS 800-160 MG ORAL TABLET 235549 SULFAMETHOXAZOLE-TRIMETHOPRIM Inactiv e TOVIAZ 4 MG ORAL TABLET EXTENDED RELEASE 24 HOUR 1 tablet daily TOVIAZ 4 MG ORAL TABLET EXTENDED RELEASE 24 HOUR FESOTERODINE FUMARATE Inactive Advance Directives Directive Description Start Date PERMISSION TO SHARE Immunizations Vaccine Administration Date Value Standard Chris cription influenza immunization (Flu Vax) has been administered 09/22 Done according to patient influenza virus vaccine, unspecified for mulation influenza immunization (Flu Vax) has been administered 04/25 Done according to patient influenza virus vaccine, unspecified for mulation Vital Signs Date Name Value Unit Range Description blood pressure, diastolic, repeated by physician 71 BP [place] blood pressure, diastolic 71 mm[Hg] BP [place] blood pressure, systolic, repeated by physician 123 BP sys blood pressure, systolic 123 mm[Hg] BP sys height E&M 67 [in_us] Bdy height pulse rate 74 /min Heart rate temperature E&M 98.5 [degF] Body temp erature weight E&M 215 [lb_av] Weight Measure d blood pressure, diastolic, repeated by physician 74 BP [place] blood pressure, diastolic 74 mm[Hg] BP [place] blood pressure, systolic, repeated by physician 122 BP sys blood pressure, systolic 122 mm[Hg] BP sys height E&M 67 [in_us] Bdy height pulse rate 72 /min Heart rate temperature E&M 98.2 [degF] Body temp erature weight E&M 228 [lb_av] Weight Measure d blood pressure, diastolic, repeated by physician 70 BP [place] blood pressure, diastolic 70 mm[Hg] BP [place] blood pressure, systolic, repeated by physician 120 BP sys blood pressure, systolic 120 mm[Hg] BP sys height E&M 67 [in_us] Bdy height pulse rate 70 /min Heart rate temperature E&M 98.3 [degF] Body temp erature weight E&M 230 [lb_av] Weight Measure d Diagnostic Results Date Name Value Unit Range Description Office Visit: Bladder pressure and incon tinence - Chemistry RBC, urine, dipstick negative protein, total urine random negative mg/dL Office Visit: Bladder pressure and incon tinence - Urinalysis urinalysis, routine Clean Catch ketones, urine, by test strip negative bilirubin, urine negative glucose, urine, semiquantitative negative pH, urine, semiquantitative 7 specific gravity, urine 1.010 urine color yellow appearance, urine clear leukocyte esterase, urine, by dipstick negative nitrite, urine, semiquantitative negative urobilinogen, urine, semiquantitative (dipstick) negative protein, urine, semiquantitative (dipstick) negative Encounters Code Encounter Date Provider Facility [facility]-[id number] Level 3 Est. Patient 12:28:09 CDT Halle aviles MD [facility]-95022 Level 3 Est. Patient 10:39:37 EQUIP MAINT ENG Halle aviles MD [facility]-01405 Level 3 Est. Patient 12:52:10 EQUIP MAINT ENG Halle aviles MD [facility]-55805 Level 3 Est. Patient 16:18:50 CDT Halle aviles MD [facility]-35948 Level 3 Est. Patient 16:51:53 CDT Halle aviles MD [facility]-99697 Level 3 Est. Patient 13:58:04 EQUIP MAINT ENG Halle aviles MD [facility]-15187 Level 3 Est. Patient 21:18:54 CDT Halle aviles MD [facility]-36029 Level 3 Est. Patient 12:46:33 CDT Halle aviles MD [facility]-67776 Level 3 Est. Patient 12:27:57 CDT Halle aviles MD [facility]-10634 Level 3 Est. Patient 15:50:26 CDT Halle aviles MD [facility]-26390 Level 3 Est. Patient 11:10:51 EQUIP MAINT ENG Hardeep Barker MD [facility]-69425 Level 4 New Patient 16:02:27 EQUIP MAINT ENG Hardeep Barker MD [facility] CPT-67019 Level 4 Est. Patient 13:31:38 EQUIP MAINT ENG Halle aviles MD [facility] CPT-68708 Level 3 Est. Patient 14:10:08 EQUIP MAINT ENG Halle aviles MD [facility] [place] CPT-91097 Level 3 Est. Patient 10:01:09 CDT Halle aviles MD [facility] CPT-15220 Level 4 New Patient 16:33:13 CDT Halle vail MD [facility] Procedures Code Procedure Name Date Entry Date Standard Desc ription CPT-20186 Bladder Washing 08:11:02 CDT CPT-39114 Cystoscopy 12:28:09 CDT CPT-18196 Cystoscopy 10:39:37 EQUIP MAINT ENG CPT-[id number] (4274F) Influenza immunization administe red or previously received 10:39:37 EQUIP MAINT ENG CPT-66941 Cystoscopy 12:52:10 EQUIP MAINT ENG CPT-56123 Cystoscopy 16:18:50 CDT CPT-68609 Cystoscopy 16:51:53 CDT [id number]-[id number] (4274F 2P) Patient Reason Influenza immu nization not administered 14:25:43 EQUIP MAINT ENG CPT-29735 Cystoscopy 13:58:04 EQUIP MAINT ENG CPT-75565 Cystoscopy 21:18:54 CDT CPT-02852 Cystoscopy 15:50:27 CDT CPT-23960 Postop F/U Visit 15:34:52 EQUIP MAINT ENG CPT-35795 I/D hematoma seroma fld gauri 11:10:51 EQUIP MAINT ENG 2 CPT-97420 Postop F/U Visit 15:20:53 EQUIP MAINT ENG CPT-56019 Postop F/U Visit 13:46:08 EQUIP MAINT ENG
--- OUTSIDE RECORDS SUMMARY | 2021-03-05 12:53 | XMS REPORT | Clinical Summary ---
Author Author Admin, Jessica Cervantes Organization [facility] Address Unknown Phone Unavailable Allergies, Adverse [...] of bladder Other microscopic hematuria ICD-599.70 Inactive Hardepe Barker MD Hydronephrosis, right ICD-591 Inactive Rosemary Barker MD Hematuria ICD-599.70 Inactive Hardeep osorio MD Hydronephrosis with ureteral stricture, not elsewhere classi fied ICD-591 Inactive Hardeep Barker MD Hernia, Ventral 553.20 Inactive Hardeep Castillo MD BMI 36-36.9 Inactive Nay Escamilla Morbid obesity due to excess calories ICD-278.00 I nactive Nay Escamilla Other specified complications of surgica l and medical care, not elsewhere classified, initial encounter ICD-998.13 Inactive Hardeep Barker MD Medication List Medication Instructions Start Date Stop Date Generic Name NDC Status Provider Patient Instruction TOVIAZ 4 MG ORAL TABLET EXTENDED RELEASE 24 HOUR 1 tablet daily FESOTERODINE FUMARATE 11848533101 No Longer Active Halle aviles MD Active MYRBETRIQ 25 MG ORAL TABLET EXTENDED RELEASE 24 HOUR 1 tab b y mouth daily MIRABEGRON 65319737245 Active Nay Escamilla Acti ve ULTRAM 50 MG ORAL TABLET 1 tablet twice daily T RAMADOL HCL 55634094586 Active Halle Sahni MD Active BACTRIM DS 800-160 MG ORAL TABLET 1 tab BID SULFAMETHOXAZOLE-TRIMETHOPRIM 25140528143 No Longer Active Hardeep Barker MD Active LEVEMIR FLEXTOUCH 100 UNIT/ML SUBCUTANEOUS SOLUTION PE N-INJECTOR 100 units twice daily INSULIN DETEMIR 43485573968 Active Hardeep osorio MD Active NOVOLOG PENFILL 100 UNIT/ML SUBCUTANEOUS SOLUTION CART RIDGE 50 units twice daily INSULIN ASPART 71744211979 Active aHrdeep bowles MD Active GEODON 80 MG ORAL CAPSULE 2 cap at Bedtime ZIP RASIDONE HCL 89330401526 Active Hardeep Barker MD Active MECLIZINE HCL 12.5 MG ORAL TABLET ME CLIZINE HCL 04377564808 No Longer Active Hardeep Barker MD Active LEVAQUIN 500 MG ORAL TABLET 1 tab twice daily LEVOFLOXACIN 00111485008 No Longer Active Halle Sahni MD Acti ve DIFLUCAN 150 MG ORAL TABLET FLUCONAZOL E 03912285250 No Longer Active Halle Sahni MD Active LIPITOR 10 MG ORAL TABLET 1 tab by mouth daily ATORVASTATIN CALCIUM 93074700936 Active Halle Sahni MD Active BYSTOLIC 5 MG ORAL TABLET 1 tab by mouth daily NEBIVOLOL HCL 73651355854 Active Halle Sahni MD Active TRADJENTA 5 MG ORAL TABLET 1 tab by mouth daily LINAGLIPTIN 05588816515 Active Halle Sahni MD Active LISINOPRIL 5 MG ORAL TABLET 1 po qd LISINOPRIL 154556 94412 Active Halle Sahni MD Active LEXAPRO 10 MG ORAL TABLET 1 tablet by mouth daily ESCITALOPRAM OXALATE 46442864471 Active Halle Sahni MD Active METFORMIN HCL 500 MG ORAL TABLET 1 tablet by mouth three times d aily METFORMIN HCL 25847538019 Active Halle Sahni MD A ctive DIFLUCAN 150 MG ORAL TABLET DIFLUCAN 150 MG ORAL TABLET 340850 FLUCONAZOLE Inactive LEVAQUIN 500 MG ORAL TABLET 1 tab twice daily LEVAQUIN 500 MG ORAL TABLET 166386 LEVOFLOXACIN Inactive MECLIZINE HCL 12.5 MG ORAL TABLET MECLIZINE HCL 12.5 MG ORAL TABLET 706794 MECLIZINE HCL Inactive BACTRIM DS 800-160 MG ORAL TABLET 1 tab BID BACTRIM DS 800-160 MG ORAL TABLET 091214 SULFAMETHOXAZOLE-TRIMETHOPRIM Inactiv e TOVIAZ 4 MG ORAL [...] negative Encounters Code Encounter Date Provider Facility [facility]-68567 Level 3 Est. Patient 12:28:09 CDT Halle aviles MD [facility]-66660 Level 3 Est. Patient 10:39:37 DEPUTY [employer] DIRECTOR Halle aviles MD [facility]03340 Level 3 Est. Patient 12:52:10 [employer]Y [employer] DIRECTOR Halle aviles MD [facility]-36151 Level 3 Est. Patient 16:18:50 CDT Halle aviles MD [facility]-21149 Level 3 Est. Patient 16:51:53 CDT Halle aviles MD [facility]-01902 Level 3 Est. Patient 13:58:04 [employer]Y [employer] DIRECTOR Halle aviles MD [facility]-64862 Level 3 Est. Patient 21:18:54 CDT Halle aviles MD [facility]-35285 Level 3 Est. Patient 12:46:33 CDT Halle aviles MD [facility]-34297 Level 3 Est. Patient 12:27:57 CDT Halle aviles MD [facility]92273 Level 3 Est. Patient 15:50:26 CDT Halle aviles MD [facility]35853 Level 3 Est. Patient 11:10:51 [employer]Y [employer] DIRECTOR Hardeep Barker MD [facility]-31422 Level 4 New Patient 16:02:27 [employer]Y [employer] DIRECTOR Hardeep Barker MD [facility] CPT-47325 Level 4 Est. Patient 13:31:38 [employer]Y [employer] DIRECTOR Halle aviles MD [facility] CPT-57436 Level 3 Est. Patient 14:10:08 [employer]Y [employer] DIRECTOR Halle aviles MD [facility] [place] CPT-65996 Level 3 Est. Patient 10:01:09 CDT Halle aviles MD [facility] CPT-91508 Level 4 New Patient 16:33:13 CDT Halle vail MD [facility] Procedures Code Procedure Name Date Entry Date Standard Desc ription CPT-33921 Bladder Washing 08:11:02 CDT CPT-56266 Cystoscopy 12:28:09 CDT CPT-30598 Cystoscopy 10:39:37 [employer] DIRECTOR CPT-[id number] (4274F) Influenza immunization administe red or previously received 10:39:37 [employer]Y [employer] DIRECTOR CPT-63548 Cystoscopy 12:52:10 [employer]Y [employer] DIRECTOR CPT-89139 Cystoscopy 16:18:50 CDT CPT-64456 Cystoscopy 16:51:53 CDT CPT-[id number] (4274F 2P) Patient Reason Influenza immu nization not administered 14:25:43 DE[employer]Y [employer] DIRECTOR CPT-28463 Cystoscopy 13:58:04 [employer]Y [employer] DIRECTOR CPT-88947 Cystoscopy 21:18:54 CDT CPT-02309 Cystoscopy 15:50:27 CDT CPT-95212 Postop F/U Visit 15:34:52 [employer]Y [employer] DIRECTOR CPT-61430 I/D hematoma seroma fld gauri 11:10:51 DE[employer]Y [employer] DIRECTOR 2 CPT-09915 Postop F/U Visit 15:20:53 [employer]Y [employer] DIRECTOR CPT-35288 Postop F/U Visit 13:46:08 DEPUTY [employer] DIRECTOR
--- NOTE | 2021-03-05 12:56 | Diagnostic Imaging Report ---
Portable erect AP chest at 12:33. Indication: Chest pain and shortness of breath. The heart size is within normal limits and stable when compared to 12/08/2020. The lungs remain clear. There still no sign of failure, pneumonia or pleural effusion. The mediastinum is not widened. The osseous structures are intact. The left-sided Port-A-Cath seen previously is again evident and no different. Impression: There is no evidence for active disease. Dictated by: Dictated on workstation # [id number]
[2021-03-05 13:02] LABS: ALBUMIN 4.3 GM/DL (3.2-4.5); BILIRUBIN,TOTAL 0.2 MG/DL (0.1-1.0); CALCIUM 9.3 MG/DL (8.5-10.1); CREATININE SERUM 1.08 MG/DL (0.60-1.30)
[2021-03-05 13:04] LABS: PROTHROMBIN TIME PATIENT 13.2 SEC (12.2-14.7)
[2021-03-05 13:08] LABS: FIBRIN DEGRADATION PRODUCTS 0.5 UG/ML (0.00-0.49)
[2021-03-05] MEDS ORDERED: PROM25TA14 PO (14:07)
[2021-03-05 14:12] VITALS: BP 120/80
== END 2021-03-05 14:12 | disposition home or self-care (01) ==
LOC: EDUNIT# 12:26 → ER FS 12:27
DX: R07.9 Chest pain, unspecified (principal); R06.09 Other forms of dyspnea; R74.8 Abnormal levels of other serum enzymes; J44.9 Chronic obstructive pulmonary disease, unspecified; I10 Essential (primary) hypertension; E11.9 Type 2 diabetes mellitus without complications; F31.9 Bipolar disorder, unspecified; F41.9 Anxiety disorder, unspecified; F17.210 Nicotine dependence, cigarettes, uncomplicated; Z79.899 Other long term (current) drug therapy; Z79.4 Long term (current) use of insulin; Z79.52 Long term (current) use of systemic steroids
CPT/HCPCS: 36415; 71045; 80053; 83690; 83735; 83880; 84484; 85025; 85379; 85610; 85730; 93005; 93041

== ENCOUNTER 2021-03-09 10:00 | Day surgery (SDC) | payer MEDICARE, MEDICAID ==
[2021-03-09] VITALS (9 sets, daily range): BP systolic 119–170; BP diastolic 68–91
[~2021-03-09] VITALS: Ht 170.2 cm; Wt 100.2 kg
--- OUTSIDE RECORDS SUMMARY | 2021-03-09 07:39 | XMS REPORT | Clinical Summary ---
Author Author [facility] Organization [facility] Address Unknown Phone Unavailable Care Team Providers Care Hearing And Speech Assistant Name Role Phone Julieth Saez MAINTENANCE TECH PCP Source Comments [facility] (Labor and Delivery) documents do not appear [facility] the [facility] Allergies No Known Active Allergies Medications * Please verify current medications with patient. End Date Status Medication Sig Dispensed Refills Start Date Active metFORMIN (GLUCOPHAGE) 1,000 mg once 0 500 mg tablet a day with dinner. Active nebivolol (BYSTOLIC) 5 mg 5 mg once a 0 tablet day. Active sitaGLIPtin (JANUVIA) 25 100 mg once a 0 mg tablet day. Active lisinopril (PRINIVIL) 10 10 mg once a 0 mg tablet day. NOT SURE OF DOSE Active [place]-3 Fatty 0 Acids-Vitamin E (FISH OIL) 1,000 mg cap Active calcium-cholecalciferol 0 D3, 500 mg-200 units / tab, (OSCAL 500 + D) 500 mg(1,250mg) -200 unit tablet Active ferrous sulfate (FEROSOL) 0 325 mg (65 mg iron) tablet Active ziprasidone (GEODON) 80 Take 80 mg by 0 mg capsule mouth once a day before dinner. Active OLANZapine (ZYPREXA) 10 10 mg at 0 mg tablet bedtime. Active fluticasone-salmeterol Take 1 puff 0 230-21 mcg/actuation by inhalation (ADVAIR HFA) 230-21 two times a mcg/actuation inhaler day. Active insulin aspart (NOVOLOG) Inject just 0 100 unit/mL inpn under the skin. 5 units before meals plus sliding scale. Active HYDROcodone-acetaminophen Take 1 tablet 20 tablet 0 , 5-325 mg/tab, (NORCO) by mouth 4 5-325 mg per tablet every four hours, as needed for Moderate Pain. Active trimethoprim-sulfamethoxa Take 1 tablet 20 tablet 0 zole, 160-800 mg / tab, by mouth two 5 (BACTRIM DS) 800-160 mg times a day. tablet Active cephalexin (KEFLEX) 500 Take 1 20 capsule 0 mg capsule capsule by 5 mouth every 12 hours. Active Problems Not on file Social History Date Tobacco Use Types Packs/Day Years Used Current Every Day Smoker Cigarettes 0.5 Smokeless Tobacco: Never Used Comments Alcohol Use Standard Drinks/Week No 0 (1 standard drink = 0.6 o z pure alcohol) Sex Assigned at Date Recorded Not on file Last Filed Vital Signs Reading Time Taken Comments Vital Sign 135/80 08/12/2014 12:37 PM [facility]ER Blood Pressure 94 08/12/2014 12:37 PM PET WALKER Pulse 36.7 C (98.1 F) 08/12/2014 12:37 PM PET WALKER Temperature 18 08/12/2014 12:37 PM PET WALKER Respiratory Rate 97% 08/12/2014 12:37 PM PET WALKER Oxygen Saturation - - Inhaled Oxygen Concentration 114.3 kg (252 lb) 08/12/2014 12:37 PM PET WALKER Weight 170.2 cm (5' 7") 08/12/2014 12:37 PM PET WALKER Height 39.47 08/12/2014 12:37 PM MST Body Mass Index Plan of Treatment Health Maintenance Due Date Last Done Comments CT Colonography 1967 Colon cancer: DNA-based 1967 stool test (Cologuard) HPV/Cotest 1967 Sigmoidoscopy 1967 gFOBT or FIT 1967 COVID-19 Vaccine (1) 1979 Colonoscopy 2017 Colorectal Cancer 2017 Screening Mammogram 2017 11/01/2012 Cervical Cancer Screening 09/02/2017 Pap Smear 09/02/2017 09/02/2014 Influenza Vaccine (#1) 2021 HPV Vaccine Aged Out No longer eligible based on patient's age to complete this topic Pneumococcal Vaccine: Aged Out No longer eligib le based on patient's age to Pediatrics (0 to 5 Years) complete this topic and At-Risk Patients (6 to 64 Years) Results Not on filefrom Last 3 Months Insurance Type Payer Benefit Subscriber ID Effective Phone Address Plan / Dates Group Medicare MEDICARE ZZMEDICARE [id number] 2008-P [place] PART resent A&B Medicaid [place] [facility] [id number] Effective MEDICAID for all dates
--- OUTSIDE RECORDS SUMMARY | 2021-03-09 07:39 | XMS REPORT | Clinical Summary ---
Author Author [facility] Organization [facility] Address Unknown Phone Unavailable Care Team Providers Care Signals Intelligence Analysis Manager Name Role Phone Julieth Saez APRN PP Allergies Not on File Medications Not on file Active Problems Not on file Social History Date Tobacco Use Types Packs/Day Years Used Current Every Day Smoker 0.5 Smokeless Tobacco: Never Used Comments Alcohol Use Standard Drinks/Week No 0 (1 standard drink = 0.6 o z pure alcohol) Sex Assigned at Date Recorded Not on file Plan of Treatment Not on file Results Not on filefrom Last 3 Months Care Teams Start Date End Date Signals Intelligence Analysis Manager Relationship Specialty 10/11/18 Julieth Saez APRN PCP - General [address] [facility] [place] [address]
--- OUTSIDE RECORDS SUMMARY | 2021-03-09 07:39 | XMS REPORT | Clinical Summary ---
Author Author [facility] Address Unknown Phone Unavailable Care Team Providers Care [employer]omass Power Plant Superintendent Name Role Phone Bonnie Jaime SHIPPING/RECEIVING CLERK Unavailable Brendon Benton MD Unavailable Kleber Kemp MD Unavailable Judie Rocha SHIPPING/RECEIVING CLERK Unavailable [phone] Julieth Saez SHIPPING/RECEIVING CLERK PCP Allergies No known active allergies Medications End Date Status Medication Sig Dispensed Refills Start Date Active Wgloi-7-[id number] Ethyl Esters Take 2 g by 0 (LOVAZA PO) mouth morning and 7 hours later. Active Ziprasidone HCl (GEODON Take 80 mg by 0 PO) mouth nightly. Active OLANZapine (ZYPREXA PO) Take 10 mg by 0 mouth daily. Active ferrous sulfate Take 1 tablet 100 tablet 3 02/25/20 1 (ARNULFO-IN-KAYA) 325 (65 FE) (325 mg 4 MG tabletIndications: total) by Type II or unspecified mouth daily. type diabetes mellitus without mention of complication, not stated as uncontrolled (HCC) Active insulin detemir (LEVEMIR Inject 35 3 mL 6 0 FLEXPEN) 100 UNIT/ML Units into 4 injection the skin 2 (two) times daily. Active nicotine (NICODERM CQ) 14 Place 1 patch 28 patch 0 MG/24HRIndications: onto the skin 4 Nicotine Dependence daily. Indications: Nicotine Addiction Active Calcium Carbonate-Vitamin Take by 0 D 600-200 MG-UNIT TABS mouth. Active insulin aspart (NOVOLOG Inject 5 45 mL 1 FLEXPEN) 100 UNIT/ML pen units plus 4 injection sliding scale with each meal (Max daily 45units)DX:25 0.00 Active linagliptin (TRADJENTA) 5 Take 1 tablet 90 tablet 2 MG tablet (5 mg total) 5 by mouth daily. Active lisinopril Take 1 tablet 90 tablet 1 (PRINIVIL,ZESTRIL) 5 MG (5 mg total) 5 tabletIndications: by mouth Unspecified essential daily. hypertension Active nebivolol (BYSTOLIC) 5 MG Take 1 tablet 90 tablet 1 tabletIndications: (5 mg total) 5 Unspecified essential by mouth hypertension daily. Active albuterol (VENTOLIN HFA, Inhale 2 0 PROAIR HFA) 108 (90 BASE) puffs into MCG/ACT inhaler the lungs every 6 (six) hours as needed for Wheezing or Shortness of Breath. Active metFORMIN (GLUCOPHAGE-XR) Take 1 tablet 60 tablet 0 500 MG 24 hr (500 mg 5 tabletIndications: Type total) by II or unspecified type mouth 2 (two) diabetes mellitus without times daily mention of complication, before meals. not stated as uncontrolled (HCC) Active ADVAIR DISKUS 250-50 INHALE ONE 60 each 6 02/18 MCG/DOSE DOSE BY MOUTH 8 inhalerIndications: TWICE DAILY. Chronic obstructive pulmonary disease, unspecified COPD type (HCC) Active Problems Problem Noted Date COPD (chronic obstructive pulmonary disease) 015 Hypertension 05/27/2014 Hepatitis C 05/27/2014 Drug use 05/27/2014 Hypercholesterolemia 05/27/2014 Iron (Fe) deficiency anemia 05/27/2014 Asthma 05/27/2014 Type 2 diabetes mellitus 05/27/2014 Arrhythmia 05/27/2014 JUAN ANTONIO (obstructive sleep apnea) 04/22/2014 Sleep disturbances 04/19/2014 Immunizations Name Administration Dates Next Due Influenza IIV4 MDV 05/27/2014 (Multi-dose vial) Family History Medical History Relation Name Comments Diabetes type II Father Heart attack Father Kidney cancer Mother Relation Name Status Comments Father Mother Social History Date Tobacco Use Types Packs/Day Years Used Current Every Day Smoker Cigarettes 0.03 Comments Alcohol Use Standard Drinks/Week No 0 (1 standard drink = 0.6 o z pure alcohol) Control Partners Comments Sexually Active Never Sex Assigned at Date Recorded Not on file Last Filed Vital Signs Reading Time Taken Comments Vital Sign 120/72 09/15/2014 11:15 AM BRAND SALES CONSULTANT Blood Pressure 104 09/15/2014 11:15 AM BRAND SALES CONSULTANT Pulse 36.4 C (97.5 F) 09/15/2014 11:15 AM BRAND SALES CONSULTANT Temperature 16 09/15/2014 11:15 AM BRAND SALES CONSULTANT Respiratory Rate 99% 09/15/2014 11:15 AM BRAND SALES CONSULTANT Oxygen Saturation - - Inhaled Oxygen Concentration 117 kg (258 lb) 09/15/2014 11:15 AM BRAND SALES CONSULTANT Weight 170.2 cm (5' 7") 09/15/2014 11:15 AM BRAND SALES CONSULTANT Height 40.41 09/15/2014 11:15 AM BRAND SALES CONSULTANT Body Mass Index Plan of Treatment Health Maintenance Due Date Last Done Comments COVID-19 Vaccine (1) 1979 Annual Wellness Visit 1985 Hepatitis C Screening 1985 DTaP,Tdap,and Td Vaccines 1986 (1 - Tdap) MMR Vaccines-Adult 1986 Cervical Cancer Screening 1988 Breast Cancer 2017 Screening-Mammogram Colon Cancer Screening 2017 Zoster Vaccine (1 of 2) 2017 Influenza Vaccine (#1) 2021 05/27/2014 Pneumo-Vaccine: 65+Yrs (1 2032 of 1 - PPSV23) HIB Vaccines Aged Out No longer eligible based on patient's age to complete this topic IPV Vaccines Aged Out No longer eligible based on patient's age to complete this topic Meningococcal Vaccine Aged Out No longer eligib le based on patient's age to complete this topic Pneumo-Vaccine: Peds (0-5 Aged Out No longer el igible based on patient's age to Yrs) & At-Risk Patients complete this topic (6-64 Yrs) Rotavirus Vaccines Aged Out No longer eligible based on patient's age to complete this topic Results Not on filefrom Last 3 Months Insurance Type Payer Benefit Subscriber ID Effective Phone Address Plan / Dates Group Medicare MEDICARE MEDICARE [id number] 2008-P [address] [place] [address] [facility] 19 [id number] 2012 [address] Present [address] [place] [address] Advance Directives For more information, please contact: [phone] Patient Senior Clinical Study Manager Explanation Type Date Recorded Advance Directives and Living Will Power of Laundry Supervisor Date Inactivated Comments Code Status Date Activated 04/23/2014 11:18 AM Full Code 04/22/2014 7:15 PM 04/22/2014 7:15 PM Full Code 04/22/2014 4:39 PM 04/20/2014 11:17 AM Full Code 04/19/2014 6:58 PM Care Teams Start Date End Date Biomass Power Plant Superintendent Relationship Specialty 09/03/14 Julieth Saez, SHIPPING/RECEIVING CLERK PCP - General 12/23/13 Bonnie Jaime, SHIPPING/RECEIVING CLERK Pulmonology [facility] [address] [place] [address] [email or web address] 02/24/14 Brendon Benton MD Endocrinolog y 03/11/14 Kleber Kemp MD Pulmonology [facility] [address] [place] [address] 03/27/14 Judie Rocha, Endocrinolog SHIPPING/RECEIVING CLERK y [address] [place] [address]
--- OUTSIDE RECORDS SUMMARY | 2021-03-09 07:40 | XMS REPORT | Clinical Summary ---
Author Author [facility] Organization [facility] Address Unknown Phone Unavailable Care Team Providers Care Area Coordinator Name Role Phone Landen Li MD PCP Source Comments Some departments are not documenting in the electronic medical record. If you d o not see the information that you expected, contact Release of Information in [facility] [employer] Information Management department at [phone] for further assistan ce in locating additional records.[facility] Allergies No Known Active Allergies Medications End Date Status Medication Sig Dispensed Refills Start Date Active albuterol (PROAIR HFA) 90 Inhale 2 0 mcg/actuation inhaler puffs by mouth into the lungs every 6 hours as needed for Wheezing or Shortness of Breath. Shake well before use. Active atorvastatin (LIPITOR) 10 Take 10 mg by 0 mg tablet mouth daily. Active escitalopram oxalate Take 10 mg by 0 (LEXAPRO) 10 mg tablet mouth daily. Active fluticasone/salmeterol Inhale 1 puff 0 (ADVAIR DISKUS) 250/50 by mouth into mcg inhalation disk the lungs daily. Active insulin aspart (NOVOLOG Inject 40 0 FLEXPEN) 100 unit/mL Units under injection PEN the skin three times daily with meals. Active NEEDLES, INSULIN Use as 0 DISPOSABLE (INSULIN directed. NEEDLES (DISPOSABLE) MIS) Active latanoprost (XALATAN) Apply 1 drop 0 0.005 % ophthalmic to both eyes solution at bedtime daily. Active linagliptin 5 mg tab Take 5 mg by 0 mouth daily. Active lisinopril (PRINIVIL; Take 5 mg by 0 ZESTRIL) 5 mg tablet mouth daily. Active metFORMIN-XR(+) Take 1,000 mg 0 (GLUCOPHAGE XR) 500 mg by mouth extended release tablet daily with dinner. Active OLANZapine (ZYPREXA) 10 Take 10 mg by 0 mg tablet mouth at bedtime daily. Active ziprasidone (GEODON) 80 Take 160 mg 0 mg capsule by mouth at bedtime daily. Active nebivolol (BYSTOLIC) 10 Take 10 mg by 0 mg tablet mouth daily. Active Miconazole Nitrate 2 % Apply 0 aerp topically to affected area every other day as needed. Active senna/docusate Take 1 tablet 0 (SENOKOT-S) 8.6/50 mg by mouth tablet daily as needed. Active naproxen sodium(+) Take 2 0 (ALEVE) 220 mg tablet tablets by mouth daily. Take with food. Active ondansetron (ZOFRAN) 8 mg Take 8 mg by 0 tablet mouth every 8 hours as needed for Nausea or Vomiting. Active insulin detemir(+) Inject fifty 0 (LEVEMIR FLEXTOUCH U-100 Units under 9 INSULN) 100 unit/mL (3 the skin mL) injection pen twice daily. NOTE: This is lower than your previous home dose of 100 units bid. Titrate up every 1-2 days based on fast blood sugars Active polyethylene glycol 3350 Take one 12 each 1 0 (MIRALAX) 17 g packet packet by 9 mouth daily. Active amoxicillin/K clavulanate Take one 21 tablet 0 (AUGMENTIN) 875/125 mg tablet by 9 tablet mouth every 12 hours. Take with food. Active Problems Problem Noted Date Septic shock 11/30/2018 HTN (hypertension) 11/30/2018 Acute urinary retention 11/30/2018 Hepatitis C 11/30/2018 Type 2 diabetes mellitus 11/30/2018 Anxiety 11/30/2018 FABY (acute kidney injury) 11/29/2018 Abdominal wall fluid collections 09/22/2018 Abdominal wall abscess 09/19/2018 Surgical History Surgery Date Site/Laterality Comments TONSILLECTOMY 07/16/1970 - 07/15/1971 KIDNEY STONE SURGERY HYSTERECTOMY 10/14/2016 - 11/12/2016 SECTION x 3 LAP CHOLECYSTECTOMY Medical History Medical History Date Comments Cirrhosis of liver (HCC) Chronic hepatitis C (HCC) unknown GT, VL, briefly o n IFN-based therapy Insulin dependent type 2 diabetes mellitus, uncontrolled (HCC) Homelessness Depression Obesity (BMI 35.0-39.9 without comorbidity) Abdominal abscess 10/2016 following hysterect mode; fistula to pannus Polysubstance abuse (HCC) 1853-3539 COPD (chronic obstructive pulmonary disease) (HCC) Hyperlipidemia Family History Medical History Relation Name Comments Cancer Father bladder Heart Disease Father Kidney Disease Mother Cancer-Breast Sister Relation Name Status Comments Father Mother Sister Social History Date Tobacco Use Types Packs/Day Years Used Current Every Day Smoker Cigarettes 0.5 36 Smokeless Tobacco: Never Used Tobacco Cessation: Ready to Quit: Yes; C ounseling Given: Yes Comments Alcohol Use Standard Drinks/Week quit 2009 No 0 (1 standard drink = 0.6 o z pure alcohol) Sex Assigned at Date Recorded Not on file Last Filed Vital Signs Reading Time Taken Comments Vital Sign 127/72 12/03/2018 7:33 AM CDT Blood Pressure 74 12/03/2018 7:33 AM CDT Pulse 36.4 C (97.6 F) 12/03/2018 7:33 AM CDT Temperature 18 06/25/2017 3:10 PM 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 Respiratory Rate 98% 12/03/2018 7:33 AM CDT Oxygen Saturation - - Inhaled Oxygen Concentration 107.9 kg (237 lb 14 oz) 12/03/2018 6:16 AM CDT Weight 170.2 cm (5' 7") 11/29/2018 6:00 PM CDT Height 37.26 11/29/2018 6:00 PM CDT Body Mass Index Plan of Treatment Health Maintenance Due Date Last Done Comments HIV SCREENING 1982 DTAP/TDAP VACCINES (1 - 1985 Tdap) PHYSICAL (COMPREHENSIVE) 1985 EXAM CERVICAL CANCER SCREENING 1988 BREAST CANCER SCREENING 2007 COLORECTAL CANCER 2017 SCREENING SHINGLES RECOMBINANT 2017 VACCINE (1 of 2) INFLUENZA VACCINE 04/15/2021 07/07/2010, 04/22/2009, 10/03/2006 HEPATITIS C SCREENING Completed 06/25/2017 Results Not on filefrom Last 3 Months Insurance Type Payer Benefit Subscriber ID Effective Phone Address Plan / Dates Group A[employer] MEDICAID AETNA [id number] 2019-P [facility] [place] Advance Directives Patient 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 needed 11/29/2018 6:35 PM Full Code 11/29/2018 6:35 PM Provider has discussed Code Status No, more discussi on w/Patient or Family? needed 09/22/2018 12:38 PM Full Code 09/19/2018 10:31 AM Provider has discussed Code Status Yes w/Patient or Family?
[2021-03-09 08:03] LABS: HEMATOCRIT 42 % (35-52); HEMOGLOBIN 13.2 g/dL (11.5-16.0); MEAN CORPUSCULAR HEMOGLOBIN 29 pg (25-34); MEAN CORPUSCULAR HGB CONC 31 g/dL (32-36); MEAN CORPUSCULAR VOLUME 92 fL (80-99); MEAN PLATELET VOLUME 9.9 fL (9.0-12.2); PLATELET COUNT 209 10^3/uL (130-400); WHITE BLOOD COUNT 7.3 10^3/uL (4.3-11.0)
[2021-03-09 08:22] LABS: PROTHROMBIN TIME PATIENT 13.4 SEC (12.2-14.7)
--- NOTE | 2021-03-09 08:23 | Diagnostic Imaging Report ---
INDICATION: Preop cardiac catheterization, coronary artery disease. Frontal chest obtained at 0754 a.m. and compared to 03/05/21. Heart and mediastinal silhouette are normal in appearance. The lungs are clear. There is no pneumothorax or pleural fluid. Port-A-Cath is unchanged with tip overlying the upper SVC. IMPRESSION: No acute process in the chest. Dictated by: Dictated on workstation # [id number]
[2021-03-09 08:25] LABS: ALBUMIN 4.1 GM/DL (3.2-4.5); BILIRUBIN,TOTAL 0.2 MG/DL (0.1-1.0); CALCIUM 9.4 MG/DL (8.5-10.1); CREATININE SERUM 1.23 MG/DL (0.60-1.30); POTASSIUM 4.2 MMOL/L (3.6-5.0); TOTAL PROTEIN 7.3 GM/DL (6.4-8.2)
[~2021-03-09 10:00] MED LIST changes: +ACET-2267 PO; +BENZ100C18 PO; +COLE1TAB PO; +HEParin (CATH LAB) 2,000 ML IV ONE; +INSU100I29 SQ; +INSU200I4 SQ; +LIDOCAINE 1% INJ 20 ML 20 ML VIAL ONE; +METF-865 PO; +NAPR-1033 PO; +NS IV 1000 ML 1,000 ML IV SCH; +NS IV 1000 ML 1,000 ML ONE; +PROM25TA14 PO; +ROFL500T PO; +SEMA1PEN3 INJ; +SIME180C65 PO
[2021-03-09] MEDS ORDERED: fentaNYL INJ 100 MCG/2 ML AMP ONE (10:12)
[2021-03-09] MEDS ORDERED: MIDAZOLAM 5 MG/5 ML (VERSED) VIAL ONE (10:12)
--- NOTE | 2021-03-09 10:26 | Conscious Sedation/ASA ---
Conscious Sedation Pre-Proced Time 10:26 ASA Score 3 For ASA 3 and 4: Consider anesthesia and medical clearance. Also, for patients with a history of failed moderate sedation consider anesthesia. Airway Lungs Heart ASA score ASA 1: a normal healthy patient ASA 2: a patient with a mild systemic disease (mid diabetes, controlled hypertension, obesity x ASA 3: a patient with a severe systemic disease that limits activity (angina, COPD, prior Myocardial infarction) ASA 4: a patient with an incapacitating disease that is a constant threat to life (CHF, renal failure) ASA 5: a moribund patient not expected to survive 24 hrs. (ruptured aneurysm) ASA 6: a declared brain- patient whose organs are being harvested. For emergent operations, add the letter E after the classification Mallampati Classification Grade 3 Sedation Plan Analgesia, Amnesia, Plan communicated to team members, Discussed options with patient/fam, Discussed risks with patient/fam The patient is an appropriate candidate to undergo the planned procedure, sedation, and anesthesia. The patient immediately re-assessed prior to indication. GLORIA ALEXANDER MD Mar 09, 2021 10:26
[2021-03-09] MEDS ORDERED: VERAPAMIL 5 MG/2 ML (CALAN) VIAL IV ONE (10:30)
[2021-03-09] MEDS ORDERED: NITRO DRIP 25000 MCG/D5W 250 ML IV ONE (10:30)
[2021-03-09] MEDS ORDERED: HEParin 1000 UNIT/ML (10ML VIAL) FOR BOLUS ONE (10:30)
[2021-03-09] MEDS ORDERED: NS IV 1000 ML 1,000 ML IV SCH (11:00)
[2021-03-09] MEDS ORDERED: METF-865 PO (11:01)
--- NOTE | 2021-03-09 11:03 | Discharge Inst-Post CATH ---
Discharge Inst-CATH/EP Problems Reviewed?: Yes Post Cardiac Cath/EP D/C Inst Follow Up/Plan Hold Metformin for [address] Borden in 2 to 4 weeks <b>CARDIAC CATH/EP PROCEDURE DISCHARGE INSTRUCTIONS</b> ACTIVITY * Go Home directly and rest. * Limit activity of the leg (or wrist if it was used) for 7 days including aerobics, swimming, jogging, bicycling, etc. * Restrict stair-climbing for 7 days if possible, if not, climb up with your non-cath leg, then bring together on the same step. * Avoid lifting, pushing, pulling or excessive movement of the affected extremity for 7 days. * Customary sexual activity may be resumed after 2 days-use caution not to use a position that strains or causes pain to the affected extremity. * No driving for 24 hours. * NO SMOKING. * Avoid straining for bowel movements for 7 days. * Gentle walking on level ground is allowed. * Returning to work will depend on the type of procedure and the results. Your doctor will discuss this with you. CALL YOUR DOCTOR FOR ANY OF THE FOLLOWING: *If bleeding from the puncture site occurs- Apply gentle pressure to site with clean cloth and call your doctor or EMS. * If a knot or lump forms under the skin, increases in size, or causes pain. * If bruising appears to be worsening or moving further down your leg instead of disappearing. * Temperature above 101 F. CARE OF YOUR GROIN INCISION; * Bruising or purple discoloration of the skin near the puncture site is common. * You may shower only, no bathtub bathing for 5 days. Be careful to avoid slipping as your leg may feel stiff. * If a closure device was used on your femoral artery, please see the attached guide regarding care of the device and your leg. * Leave dressing on FOR 24 hours. CARE OF YOUR WRIST INCISION; * Bruising or purple discoloration of the skin near the puncture site is common. * You may shower. * DO NOT submerge wrist. * Leave dressing on FOR 24 hours. GLORIA BORDEN MD Mar 09, 2021 11:03
--- NOTE | 2021-03-09 11:06 | Cardiac Cath Report ---
Cardiac Cath Report Physician (s)/Artificial Marble Worker (s) Physician GLORIA ALEXANDER MD Pre-Procedure Diagnosis Pre-Procedure Diagnosis: Coronary artery disease Post-Procedure Note Procedure Start Date: Mar 09, 2021 Name of Procedure: Left heart catheterization Findings/Procedure Note PROCEDURE NOTE: 55-year-old lady with history of hypertension, hyperlipidemia and diabetes mellitus, had an abnormal stress test, scheduled for cardiac catheterization possible PTCA. After explaining the procedure to the patient, all pros and cons were explained, all questions were answered. The patient signed the consent and then she was placed on the cardiac catheterization laboratory. Groin was prepped SL fashion local anesthesia was used. Sheath placed in the right radial artery, [place] catheter was advanced to the left ventricular cavity, no left ventriculogram was done, pressure was measured, pullback LV to aorta was done, intubated the right and left coronary system and angiogram was done. At the end of the procedure the sheath was removed. Vascular band deployed FINDINGS: Hemodynamics LV 91/11, end-diastolic pressure of 11 Aorta 89/70 mean of 63 ANATOMY: Left Main is free of obstructive disease Left Anterior Descending has mild disease nonobstructive disease, slightly tortuous artery Left Circumflex is dominant with mild disease nonobstructive disease Right Coronary Artery is nondominant with mild disease nonobstructive disease LV Gram was not done, pressure was measured CONCLUSION: 1. Slightly tortuous LAD system with mild coronary artery disease nonobstructive disease 2. Normal left ventricular end-diastolic pressure DISCUSSION AND RECOMMENDATION: Medical therapy is recommended no intervention is needed. Anesthesia Type: Conscious Sedation Estimated blood loss (mL): 5 ml Contrast Amount: 13 ml Total Radiation Dose: 358 mGy Post-Procedure Diagnosis Post-operative diagnosis: Coronary artery disease Hypertension Hyperlipidemia Diabetes mellitus GLORIA ALEXANDER MD Mar 09, 2021 11:06
== END 2021-03-09 14:20 | disposition home or self-care (01) ==
LOC: CATH 10:00 → SDC 11:20 → CATH 14:20
PROVIDERS: ATTEND Internal Medicine Cardiovascular Disease
DX: I25.10 Atherosclerotic heart disease of native coronary artery without angina pectoris (principal); I10 Essential (primary) hypertension; E78.5 Hyperlipidemia, unspecified; E11.9 Type 2 diabetes mellitus without complications; J44.9 Chronic obstructive pulmonary disease, unspecified; F17.210 Nicotine dependence, cigarettes, uncomplicated; F41.9 Anxiety disorder, unspecified; F32.9 Major depressive disorder, single episode, unspecified; F20.9 Schizophrenia, unspecified; Z79.899 Other long term (current) drug therapy; Z79.84 Long term (current) use of oral hypoglycemic drugs; Z79.891 Long term (current) use of opiate analgesic
CPT/HCPCS: 71045; 80053; 80061; 85027; 85610; 85730; 87081; 93458; C1894; 36415

== ENCOUNTER 2021-03-14 15:19 | Emergency (ER) | payer MEDICARE, MEDICAID ==
[~2021-03-14] VITALS: Ht 170.1 cm; Wt 94.4 kg
[~2021-03-14 15:19] MED LIST changes: -HEParin (CATH LAB) 2,000 ML IV ONE; -LIDOCAINE 1% INJ 20 ML 20 ML VIAL ONE; -NS IV 1000 ML 1,000 ML IV SCH; -NS IV 1000 ML 1,000 ML ONE
[2021-03-14 15:25] VITALS: BP 93/64
--- NOTE | 2021-03-14 15:39 | ED Upper Extremity ---
General Chief Complaint: Upper Extremity Stated Complaint: SOB;SHOULDER PAIN History of Present Illness Date Seen by Provider: Mar 14, 2021 Time Seen by Provider: 15:36 Initial Comments 52-year-old female presents with right shoulder pain. States onset 3 months ago and has been daily since then with constant numbness without weakness or incoordination. States that she saw a "spine doctor" who told her she had curvature and pinched nerves in her back. 2 weeks ago she had a heart cath by Dr. Borden in [place] and was normal. She denies chest pain, shortness of air, cough or abdominal pain. She denies nausea or diaphoresis. Allergies and Home Medications Allergies Coded Allergies: No Known Drug Allergies (Unverified , 03/09/21) Home Medications Acetaminophen 500 Mg Tablet, 1,000 MG PO Q6H PRN for PAIN-MILD (1-4), (Reported) Albuterol Sulfate 1 Puff Puff, 2 PUFF IH Q4H PRN for SHORTNESS OF BREATH, (Reported) Benzonatate 100 Mg Capsule, 100 MG PO PRN PRN for COUGHING, (Reported) Colestipol HCl 1 Gm Tablet, 1 GM PO DAILY, (Reported) Escitalopram Oxalate 20 Mg Tablet, 40 MG PO DAILY, (Reported) TAKES 2 (20MG) TABLETS Fluticasone Propion/Salmeterol 1 Each Blst.w.dev, 1 PUFF INH DAILY, (Reported) Gabapentin 100 Mg Capsule, 100 MG PO HS, (Reported) Ibuprofen 800 Mg Tablet, 800 MG PO Q8H PRN for PAIN-MILD (1-4), (Reported) Insulin Aspart 100 Unit/1 Ml Susp, 25 UNITS SQ TIDWM, (Reported) Insulin Degludec 200 Unit/1 Ml Insuln.pen, 126 UNITS SQ DAILY, (Reported) Ipratropium [place] 12.9 Gm Aers, 2 PUFF IH QID PRN for SHORTNESS OF BREATH, (Reported) Lisinopril 5 Mg Tablet, 5 MG PO DAILY, (Reported) Loratadine 10 Mg Tablet, 10 MG PO DAILY, (Reported) Metformin HCl 500 Mg Tab.er.24h, 1,000 MG PO HS Hold Metformin for 48 hours Prescribed by: GLORIA BORDEN on 03/09/21 1101 Mirabegron 25 Mg Tab.er.24h, 25 MG PO DAILY, (Reported) Montelukast Sodium 10 Mg Tablet, 10 MG PO DAILY, (Reported) Naproxen Sodium 220 Mg Tablet, 220-440 MG PO BID PRN for PAIN-MILD (1-4), (Reported) Nebivolol HCl 10 Mg Tab, 10 MG PO DAILY, (Reported) LAST FILLED 01/03/20 #90 90 DAY SUPPLY Olanzapine 10 Mg Tablet, 10 MG PO HS, (Reported) Promethazine HCl 25 Mg Tablet, 12.5 MG PO Q6H PRN for NAUSEA/VOMITING, (Reported) TAKES (25MG) TABLET Roflumilast 500 Mcg Tablet, 500 MCG PO DAILY, (Reported) Semaglutide 1 Mg/0.75 Ml Pen.injctr, 1 MG INJ SUNDAY, (Reported) Simethicone 180 Mg Capsule, 180 MG PO DAILY PRN for STOMACH UPSET, (Reported) Tramadol HCl 50 Mg Tablet, 50-100 MG PO BID PRN for PAIN-MODERATE (5-7), (Reported) Ziprasidone 80 Mg Cap, 160 MG PO HS, (Reported) TAKE 2 (80MG) TABLETS Patient Home Medication List Home Medication List Reviewed: Yes Review of Systems Constitutional: No fever, No malaise, No weakness EENTM: no symptoms reported Respiratory: No cough, No short of breath Cardiovascular: No chest pain, No edema, No palpitations Gastrointestinal: No abdominal pain, No loss of appetite, No nausea, No vomiting Musculoskeletal: see HPI; No back pain; joint pain (R shoulder); No joint swelling; muscle pain; No muscle weakness; neck pain Psychiatric/Neurological: Numbness; Denies Weakness Past Tiicirw-Lcgfsz-Uujlfn Hx Patient Social History Tobacco Use?: Yes Seasonal Allergies Seasonal Allergies: No Past Medical History Surgeries: Yes Bladder Surgery, Gallbladder, Hysterectomy, Tonsillectomy Respiratory: Yes Asthma, COPD Currently Using CPAP: No Currently Using BIPAP: No Cardiac: Yes High Cholesterol, Hypertension 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 had recent axilla abscess) Recent Skin Changes Blood Disorders: Yes (HEP C) Adverse Reaction/Blood Tranf: No Physical Exam Vital Signs Vital Signs - First Documented 03/14/21 15:25 Temp 36.7 Pulse 124 Resp 20 B/P (MAP) 93/64 (74) O2 Delivery Room Air Capillary Refill : Height, Weight, BMI Height: 5'7.00" Weight: 224lbs. 0.0oz. 101.356602jo; 34.58 BMI Method:Actual General Appearance: WD/WN, no apparent distress HEENT: PERRL/EOMI, normal ENT inspection Neck: non-tender, supple Cardiovascular: regular rate, rhythm, no edema, no JVD Respiratory: chest non-tender, lungs clear, normal breath sounds, no respiratory distress, no accessory muscle use Gastrointestinal: normal bowel sounds, non tender, soft, no organomegaly Back: normal inspection, no CVA tenderness Shoulder: normal inspection, non-tender, no evidence of injury, normal ROM; No asymmetry, No bone tenderness, No deformity, No ecchymosis, No limited ROM, No pain; soft tissue tenderness; No swelling Elbow/Forearm: normal inspection, non-tender, no evidence of injury, normal ROM Wrist: Yes normal inspection, Yes non-tender, Yes no evidence of injury, Yes normal ROM Hand: normal inspection, non-tender, no evidence of injury, normal ROM Neurologic/Tendon: normal sensation, normal motor functions, normal tendon functions Neurologic/Psychiatric: no motor/sensory deficits, alert, normal mood/affect, oriented x 3 Skin: normal color, warm/dry Progress/Results/Core Measures Results/Orders Lab Results Laboratory Tests Test 03/14/21 15:45 03/14/21 15:47 Range/Units White Blood Count 11.7 H 4.3-11.0 10^3/uL Red Blood Count 5.14 H 3.80-5.11 10^6/uL Hemoglobin 15.0 11.5-16.0 g/dL Hematocrit 47 35-52 % Mean Corpuscular Volume 91 80-99 fL Mean Corpuscular Hemoglobin 29 25-34 pg Mean Corpuscular Hemoglobin Concent 32 32-36 g/dL Red Cell Distribution Width 16.1 H 10.0-14.5 % Platelet Count 290 130-400 10^3/uL Mean Platelet Volume 10.7 9.0-12.2 fL Neutrophils (%) (Auto) 64 42-75 % Lymphocytes (%) (Auto) 27 12-44 % Monocytes (%) (Auto) 8 0-12 % Eosinophils (%) (Auto) 1 0-10 % Basophils (%) (Auto) 0 0-10 % Neutrophils # (Auto) 7.4 1.8-7.8 X 10^3 Lymphocytes # (Auto) 3.2 1.0-4.0 X 10^3 Monocytes # (Auto) 0.9 0.0-1.0 X 10^3 Eosinophils # (Auto) 0.1 0.0-0.3 10^3/uL Basophils # (Auto) 0.1 0.0-0.1 10^3/uL Sodium Level 137 135-145 MMOL/L Potassium Level 4.4 3.6-5.0 MMOL/L Chloride Level 101 98-107 MMOL/L Carbon Dioxide Level 21 21-32 MMOL/L Anion Gap 15 H 5-14 MMOL/L Blood Urea Nitrogen 12 7-18 MG/DL Creatinine 1.36 H 0.60-1.30 MG/DL Estimat Glomerular Filtration Rate 41 BUN/Creatinine Ratio 9 Glucose Level 200 H 70-105 MG/DL Calcium Level 10.1 8.5-10.1 MG/DL Corrected Calcium 8.5-10.1 MG/DL Total Bilirubin 0.3 0.1-1.0 MG/DL Aspartate Amino Transf (AST/SGOT) 64 H 5-34 U/L Alanine Aminotransferase (ALT/SGPT) 45 0-55 U/L Alkaline Phosphatase 94 40-136 U/L Troponin I < 0.30 <0.30 NG/ML Total Protein 7.8 6.4-8.2 GM/DL Albumin 4.6 H 3.2-4.5 GM/DL Urine Color YELLOW Urine Clarity CLEAR Urine pH 6.5 5-9 Urine Specific [place] 1.010 L 1.016-1.022 Urine Protein NEGATIVE NEGATIVE Urine Glucose (UA) NEGATIVE NEGATIVE Urine Ketones NEGATIVE NEGATIVE Urine Nitrite POSITIVE H NEGATIVE Urine Bilirubin NEGATIVE NEGATIVE Urine Urobilinogen 0.2 < = 1.0 MG/DL Urine Leukocyte Esterase TRACE H NEGATIVE Urine RBC (Auto) NEGATIVE NEGATIVE Urine RBC NONE /HPF Urine WBC 5-10 H /HPF Urine Squamous Epithelial Cells 2-5 /HPF Urine Crystals NONE /LPF Urine Bacteria MODERATE H /HPF Urine Casts PRESENT /LPF Urine Hyaline Casts 0-2 H /LPF Urine Mucus NEGATIVE /LPF Urine Culture Indicated YES Urine Opiates Screen NEGATIVE NEGATIVE Urine Oxycodone Screen NEGATIVE NEGATIVE Urine Methadone Screen NEGATIVE NEGATIVE Urine Propoxyphene Screen NEGATIVE NEGATIVE Urine Barbiturates Screen NEGATIVE NEGATIVE Ur Tricyclic Antidepressants Screen NEGATIVE NEGATIVE Urine Phencyclidine Screen NEGATIVE NEGATIVE Urine Amphetamines Screen NEGATIVE NEGATIVE Urine Methamphetamines Screen NEGATIVE NEGATIVE Urine Benzodiazepines Screen NEGATIVE NEGATIVE Urine Cocaine Screen NEGATIVE NEGATIVE Urine Cannabinoids Screen POSITIVE H NEGATIVE My Orders Orders - EDNA KENT DO Troponin I Fs (03/14/21 15:34) Cbc With Automated Diff (03/14/21 15:34) Comprehensive Metabolic Panel (03/14/21 15:34) Ekg Tracing (03/14/21 15:34) Chest 1 View Ap/Pa Only (03/14/21 15:34) Drug Screen Stat (Urine) (03/14/21 15:43) Urinalysis (03/14/21 15:43) Urine Culture (03/14/21 15:47) Vital Signs/I&O 03/14/21 15:25 Temp 36.7 Pulse 124 Resp 20 B/P (MAP) 93/64 (74) O2 Delivery Room Air Departure Impression Primary Impression: Dehydration Additional Impression: Chronic right shoulder pain Disposition: 01 HOME, SELF-CARE Condition: Stable Departure-Patient Inst. Decision time for Depature: 16:21 Referrals: SACHIN MARQUEZ APRN (PCP) Primary Care Physician [facility] (Family) Primary Care Physician Patient Instructions: Dehydration, Adult ED, Shoulder Pain (DC) Add. Discharge Instructions: Follow up with your PCP in 2 to 3 days if not feeling better, sooner if worse. All discharge instructions reviewed with patient and/or family. Voiced understanding. EDNA KENT DO Mar 14, 2021 15:39
--- OUTSIDE RECORDS SUMMARY | 2021-03-14 15:50 | XMS REPORT | Clinical Summary ---
Author Author Admin, Jessica Cervantes Organization [facility] Address Unknown Phone Unavailable Allergies, Adverse [...] 24 HOUR 1 tablet daily FESOTERODINE FUMARATE 54480599427 No Longer Active Halle aviles MD Active MYRBETRIQ 25 MG ORAL TABLET EXTENDED RELEASE 24 HOUR 1 tab b y mouth daily MIRABEGRON 98943809452 Active Nay Andi Acti ve ULTRAM 50 MG ORAL TABLET 1 tablet twice daily T RAMADOL HCL 75191443100 Active Halle Sahni MD Active BACTRIM DS 800-160 MG ORAL TABLET 1 tab BID SULFAMETHOXAZOLE-TRIMETHOPRIM 75934106437 No Longer Active Hardeep Barker MD Active LEVEMIR FLEXTOUCH 100 UNIT/ML SUBCUTANEOUS SOLUTION PE N-INJECTOR 100 units twice daily INSULIN DETEMIR 94579439370 Active Hardeep osorio MD Active NOVOLOG PENFILL 100 UNIT/ML SUBCUTANEOUS SOLUTION CART RIDGE 50 units twice daily INSULIN ASPART 38491542647 Active Hardeep bowles MD Active GEODON 80 MG ORAL CAPSULE 2 cap at Bedtime ZIP RASIDONE HCL 29190984418 Active Hardeep Barker MD Active MECLIZINE HCL 12.5 MG ORAL TABLET ME CLIZINE HCL 54262974666 No Longer Active Hardeep Barker MD Active LEVAQUIN 500 MG ORAL TABLET 1 tab twice daily LEVOFLOXACIN 30062652960 No Longer Active Halle Sahni MD Acti ve DIFLUCAN 150 MG ORAL TABLET FLUCONAZOL E 95087381755 No Longer Active Halle Sahni MD Active LIPITOR 10 MG ORAL TABLET 1 tab by mouth daily ATORVASTATIN CALCIUM 48876969741 Active Halle Sahni MD Active BYSTOLIC 5 MG ORAL TABLET 1 tab by mouth daily NEBIVOLOL HCL 51943429922 Active Halle Sahni MD Active TRADJENTA 5 MG ORAL TABLET 1 tab by mouth daily LINAGLIPTIN 37009956748 Active Halle Sahni MD Active LISINOPRIL 5 MG ORAL TABLET 1 po qd LISINOPRIL 371849 04318 Active Halle Sahni MD Active LEXAPRO 10 MG ORAL TABLET 1 tablet by mouth daily ESCITALOPRAM OXALATE 52717819751 Active Halle Sahni MD Active METFORMIN HCL 500 MG ORAL TABLET 1 tablet by mouth three times d aily METFORMIN HCL 38949141963 Active Halle Sahni MD A ctive DIFLUCAN 150 MG ORAL TABLET DIFLUCAN 150 MG ORAL TABLET 518875 FLUCONAZOLE Inactive LEVAQUIN 500 MG ORAL TABLET 1 tab twice daily LEVAQUIN 500 MG ORAL TABLET 130436 LEVOFLOXACIN Inactive MECLIZINE HCL 12.5 MG ORAL TABLET MECLIZINE HCL 12.5 MG ORAL TABLET 677148 MECLIZINE HCL Inactive BACTRIM DS 800-160 MG ORAL TABLET 1 tab BID BACTRIM DS 800-160 MG ORAL TABLET 204374 SULFAMETHOXAZOLE-TRIMETHOPRIM Inactiv e TOVIAZ 4 MG ORAL [...] negative Encounters Code Encounter Date Provider Facility [facility]-[id number] Level 3 Est. Patient 12:28:09 CDT Halle aviles MD [facility]-97024 Level 3 Est. Patient 10:39:37 LEAD [employer] TENDER Halle aviles MD [facility]-44377 Level 3 Est. Patient 12:52:10 [employer] Halle aviles MD [facility]-37085 Level 3 Est. Patient 16:18:50 CDT Halle aviles MD [facility]-33358 Level 3 Est. Patient 16:51:53 CDT Halle aviles MD [facility]-19763 Level 3 Est. Patient 13:58:04 [employer] Halle aviles MD [facility]-03400 Level 3 Est. Patient 21:18:54 CDT Halle aviles MD [facility]-19994 Level 3 Est. Patient 12:46:33 CDT Halle aviles MD [facility]-20438 Level 3 Est. Patient 12:27:57 CDT Halle aviles MD [facility]-64976 Level 3 Est. Patient 15:50:26 CDT Halle aviles MD [facility]-07347 Level 3 Est. Patient 11:10:51 [employer] Hardeep Barker MD [facility]-03112 Level 4 New Patient 16:02:27 [employer] Hardeep Barker MD [facility] CPT-02609 Level 4 Est. Patient 13:31:38 [employer] Halle aviles MD [facility] CPT-35314 Level 3 Est. Patient 14:10:08 LE[employer]ER Halle aviles MD [facility] CPT-87245 Level 3 Est. Patient 10:01:09 CDT Halle aviles MD [facility] CPT-71757 Level 4 New Patient 16:33:13 CDT Halle vail MD [facility] Procedures Code Procedure Name Date Entry Date Standard Desc ription CPT-98185 Bladder Washing 08:11:02 CDT CPT-33432 Cystoscopy 12:28:09 CDT CPT-66376 Cystoscopy 10:39:37 [employer]END[employer] CPT-[id number] (4274F) Influenza immunization administe red or previously received 10:39:37 [employer] CPT-78866 Cystoscopy 12:52:10 [employer] CPT-95459 Cystoscopy 16:18:50 CDT CPT-51807 Cystoscopy 16:51:53 CDT [id number]-[id number] (4274F 2P) Patient Reason Influenza immu nization not administered 14:25:43 [employer] CPT-33439 Cystoscopy 13:58:04 [employer] CPT-84489 Cystoscopy 21:18:54 CDT CPT-52279 Cystoscopy 15:50:27 CDT CPT-68214 Postop F/U Visit 15:34:52 [employer] CPT-23611 I/D hematoma seroma fld gauri 11:10:51 LEAD [employer] TENDER 2 CPT-88325 Postop F/U Visit 15:20:53 LE[employer] CPT-76773 Postop F/U Visit 13:46:08 [employer]AD [employer]
--- OUTSIDE RECORDS SUMMARY | 2021-03-14 15:50 | XMS REPORT | Clinical Summary ---
Author Author Admin, Jessica Cervantes Organization [facility] Address Unknown Phone Unavailable Allergies, Adverse Reactions, [...] ecified drug-induced mental disorders Overactive Bladder Active Hlale bowles MD Hypertonicity of bladder Other microscopic hematuria ICD-599.70 Inactive Hardeep Barker MD Hydronephrosis, right ICD-591 Inactive Rosemary Barker MD Hematuria ICD-599.70 Inactive Hardeep osorio MD Hydronephrosis with ureteral stricture, not elsewhere classi fied ICD-591 Inactive Hardeep Barker MD BMI 36-36.9 Inactive Nay Elder Hernia, Ventral 553.20 Inactive Hardeep Castillo MD Morbid obesity due to excess calories ICD-278.00 I nactive Nay Andi Other specified complications of surgica l and medical care, not elsewhere classified, initial encounter ICD-998.13 Inactive Hardeep Barker MD Medication List Medication Instructions Start Date Stop Date Generic Name NDC Status Provider Patient Instruction TOVIAZ 4 MG ORAL TABLET EXTENDED RELEASE 24 HOUR 1 tablet daily FESOTERODINE FUMARATE 65599797814 No Longer Active Halle aviles MD Active MYRBETRIQ 25 MG ORAL TABLET EXTENDED RELEASE 24 HOUR 1 tab b y mouth daily MIRABEGRON 94622268016 Active Nay Andi Acti ve ULTRAM 50 MG ORAL TABLET 1 tablet twice daily T RAMADOL HCL 42463278812 Active Halle Sahni MD Active BACTRIM DS 800-160 MG ORAL TABLET 1 tab BID SULFAMETHOXAZOLE-TRIMETHOPRIM 53292650754 No Longer Active Hardeep Barker MD Active LEVEMIR FLEXTOUCH 100 UNIT/ML SUBCUTANEOUS SOLUTION PE N-INJECTOR 100 units twice daily INSULIN DETEMIR 64677081493 Active Hardeep osorio MD Active NOVOLOG PENFILL 100 UNIT/ML SUBCUTANEOUS SOLUTION CART RIDGE 50 units twice daily INSULIN ASPART 79396260245 Active Hardeep bowles MD Active GEODON 80 MG ORAL CAPSULE 2 cap at Bedtime ZIP RASIDONE HCL 01838801473 Active Hardeep Barker MD Active MECLIZINE HCL 12.5 MG ORAL TABLET ME CLIZINE HCL 15781370490 No Longer Active Hardeep Barker MD Active LEVAQUIN 500 MG ORAL TABLET 1 tab twice daily LEVOFLOXACIN 00562125336 No Longer Active Halle Sahni MD Acti ve DIFLUCAN 150 MG ORAL TABLET FLUCONAZOL E 80707880813 No Longer Active Halle Sahni MD Active LIPITOR 10 MG ORAL TABLET 1 tab by mouth daily ATORVASTATIN CALCIUM 46288987256 Active Halle Sahni MD Active BYSTOLIC 5 MG ORAL TABLET 1 tab by mouth daily NEBIVOLOL HCL 35586518971 Active Halle Sahni MD Active TRADJENTA 5 MG ORAL TABLET 1 tab by mouth daily LINAGLIPTIN 57832387148 Active Halle Sahni MD Active LISINOPRIL 5 MG ORAL TABLET 1 po qd LISINOPRIL 896290 49505 Active Halle Sahni MD Active LEXAPRO 10 MG ORAL TABLET 1 tablet by mouth daily ESCITALOPRAM OXALATE 37711390729 Active Halle Sahni MD Active METFORMIN HCL 500 MG ORAL TABLET 1 tablet by mouth three times d aily METFORMIN HCL 72904831335 Active Halle Sahni MD A ctive DIFLUCAN 150 MG ORAL TABLET DIFLUCAN 150 MG ORAL TABLET 055596 FLUCONAZOLE Inactive LEVAQUIN 500 MG ORAL TABLET 1 tab twice daily LEVAQUIN 500 MG ORAL TABLET 424088 LEVOFLOXACIN Inactive MECLIZINE HCL 12.5 MG ORAL TABLET MECLIZINE HCL 12.5 MG ORAL TABLET 245520 MECLIZINE HCL Inactive BACTRIM DS 800-160 MG ORAL TABLET 1 tab BID BACTRIM DS 800-160 MG ORAL TABLET 131613 SULFAMETHOXAZOLE-TRIMETHOPRIM Inactiv e TOVIAZ 4 MG ORAL [...] negative Encounters Code Encounter Date Provider Facility [facility]-78846 Level 3 Est. Patient 12:28:09 CDT Halle aviles MD [facility]-95625 Level 3 Est. Patient 10:39:37 [employer]APRO[employer] ATTENDANT Halle aviles MD [facility]75977 Level 3 Est. Patient 12:52:10 TAPROOM ATTENDANT Halle aviles MD [facility]-20601 Level 3 Est. Patient 16:18:50 CDT Halle aviles MD [facility]-12845 Level 3 Est. Patient 16:51:53 CDT Halle aviles MD [facility]-65537 Level 3 Est. Patient 13:58:04 TAPROOM ATTENDANT Halle aviles MD [facility]-59942 Level 3 Est. Patient 21:18:54 CDT Halle aviles MD [facility]-61010 Level 3 Est. Patient 12:46:33 CDT Halle aviles MD [facility]-49440 Level 3 Est. Patient 12:27:57 CDT Halle aviles MD [facility]57931 Level 3 Est. Patient 15:50:26 CDT Halle aviles MD [facility]18141 Level 3 Est. Patient 11:10:51 TAPROOM ATTENDANT Hardeep Barker MD [facility]-68275 Level 4 New Patient 16:02:27 TAPROOM ATTENDANT Hardeep Barker MD [facility] CPT-93404 Level 4 Est. Patient 13:31:38 TAPROOM ATTENDANT Halle aviles MD [facility] CPT-70869 Level 3 Est. Patient 14:10:08 TAPROOM ATTENDANT Halle aviles MD [facility] CPT-95093 Level 3 Est. Patient 10:01:09 CDT Halle aviles MD [facility] CPT-44866 Level 4 New Patient 16:33:13 CDT Halle vail MD [facility] Procedures Code Procedure Name Date Entry Date Standard Desc ription CPT-68454 Bladder Washing 08:11:02 CDT CPT-25382 Cystoscopy 12:28:09 CDT CPT-47713 Cystoscopy 10:39:37 TAPROOM ATTENDANT CPT-[id number] (4274F) Influenza immunization administe red or previously received 10:39:37 TAPROOM ATTENDANT CPT-37896 Cystoscopy 12:52:10 TAPROOM ATTENDANT CPT-69606 Cystoscopy 16:18:50 CDT CPT-92379 Cystoscopy 16:51:53 CDT CPT-[id number] (4274F 2P) Patient Reason Influenza immu nization not administered 14:25:43 TAPROOM ATTENDANT CPT-60009 Cystoscopy 13:58:04 TAPROOM ATTENDANT CPT-94998 Cystoscopy 21:18:54 CDT CPT-40113 Cystoscopy 15:50:27 CDT CPT-74493 Postop F/U Visit 15:34:52 [employer]APROOM ATTENDANT CPT-91262 I/D hematoma seroma fld gauri 11:10:51 TAPROOM ATTENDANT 2 CPT-26316 Postop F/U Visit 15:20:53 TAPROOM ATTENDANT CPT-51390 Postop F/U Visit 13:46:08 TAPROOM ATTENDANT
[2021-03-14 15:51] LABS: HEMATOCRIT 47 % (35-52); MEAN CORPUSCULAR HEMOGLOBIN 29 pg (25-34); MEAN CORPUSCULAR HGB CONC 32 g/dL (32-36); MEAN CORPUSCULAR VOLUME 91 fL (80-99); MEAN PLATELET VOLUME 10.7 fL (9.0-12.2); PLATELET COUNT 290 10^3/uL (130-400); WHITE BLOOD COUNT 11.7 10^3/uL (4.3-11.0)
[2021-03-14 15:52] LABS: BASOPHILS # (AUTO) 0.1 10^3/uL (0.0-0.1); BASOPHILS % (AUTO) 0 % (0-10); EOSINOPHILS # (AUTO) 0.1 10^3/uL (0.0-0.3); EOSINOPHILS % (AUTO) 1 % (0-10); LYMPHOCYTES # (AUTO) 3.2 X 10^3 (1.0-4.0); LYMPHOCYTES % (AUTO) 27 % (12-44); MONOCYTES # (AUTO) 0.9 X 10^3 (0.0-1.0); MONOCYTES % (AUTO) 8 % (0-12); NEUTROPHILS # (AUTO) 7.4 X 10^3 (1.8-7.8); NEUTROPHILS % (AUTO) 64 % (42-75)
[2021-03-14 16:05] LABS: BACTERIA,URINE MODERATE /HPF; BILIRUBIN,URINE NEGATIVE (NEGATIVE); CLARITY,URINE CLEAR; COLOR,URINE YELLOW; GLUCOSE, URINE (UA) NEGATIVE (NEGATIVE); HYALINE CASTS, URINE 0-2 /LPF; KETONES,URINE NEGATIVE (NEGATIVE); LEUKOCYTE ESTERASE ,URINE TRACE (NEGATIVE); NITRITE,URINE POSITIVE (NEGATIVE); PH,URINE 6.5 (5-9); PROTEIN,URINE NEGATIVE (NEGATIVE)
[2021-03-14 16:06] LABS: AMPHETAMINE SCREEN, URINE NEGATIVE (NEGATIVE); BARBITURATE SCREEN URINE NEGATIVE (NEGATIVE); BENZODIAZEPINES SCREEN URINE NEGATIVE (NEGATIVE); CANNABINOID SCREEN, URINE POSITIVE (NEGATIVE); COCAINE SCREEN URINE NEGATIVE (NEGATIVE); METHADONE STAT NEGATIVE (NEGATIVE); METHAMPHETAMINE SCREEN URINE S NEGATIVE (NEGATIVE); OPIATE SCREEN URINE NEGATIVE (NEGATIVE); OXYCODONE STAT NEGATIVE (NEGATIVE); PROPOXYPHENE STAT NEGATIVE (NEGATIVE); TRICYCLIC ANTIDEPRESSANTS SCRE NEGATIVE (NEGATIVE)
[2021-03-14 16:13] LABS: ALANINE AMINOTRANSFERASE 45 U/L (0-55); ALBUMIN 4.6 GM/DL (3.2-4.5); ALKALINE PHOSPHATASE 94 U/L (40-136); BILIRUBIN,TOTAL 0.3 MG/DL (0.1-1.0); BUN/CREATININE RATIO 9; CALCIUM 10.1 MG/DL (8.5-10.1); CARBON DIOXIDE 21 MMOL/L (21-32); CHLORIDE 101 MMOL/L (98-107); CREATININE SERUM 1.36 MG/DL (0.60-1.30); GFR ESTIMATED 41; GLUCOSE 200 MG/DL (70-105); POTASSIUM 4.4 MMOL/L (3.6-5.0); SODIUM 137 MMOL/L (135-145); TOTAL PROTEIN 7.8 GM/DL (6.4-8.2)
--- NOTE | 2021-03-14 16:31 | Diagnostic Imaging Report ---
INDICATION: Right shoulder pain, recent cardiac catheterization. Frontal chest obtained at 4:17 p.m. and compared to 03/09/2021. FINDINGS: Heart and mediastinal silhouette are normal in appearance. The lungs appear clear. There is no pneumothorax or pleural fluid. Port-A-Cath is unchanged. IMPRESSION: No acute process in the chest. Dictated by: Dictated on workstation # [id number]
== END 2021-03-14 16:26 | disposition home or self-care (01) ==
LOC: EDUNIT# 15:19 → ER FS 15:20
DX: G89.29 Other chronic pain (principal); M25.511 Pain in right shoulder; E86.0 Dehydration; I10 Essential (primary) hypertension; E11.9 Type 2 diabetes mellitus without complications; J44.9 Chronic obstructive pulmonary disease, unspecified; F41.0 Panic disorder [episodic paroxysmal anxiety]; F31.9 Bipolar disorder, unspecified; G47.9 Sleep disorder, unspecified; Z79.51 Long term (current) use of inhaled steroids; Z79.4 Long term (current) use of insulin; Z79.899 Other long term (current) drug therapy
CPT/HCPCS: 36415; 71045; 80053; 80306; 81000; 84484; 85025; 87088; 93005

== ENCOUNTER 2021-03-15 20:45 | Observation (INO) | payer MEDICARE, MEDICAID ==
[~2021-03-15] VITALS: Ht 170.2 cm; Wt 97.0 kg
[2021-03-15] MEDS ORDERED: NS IV 1000 ML 1,000 ML IV STA ×2 (20:54→22:08)
--- NOTE | 2021-03-15 21:02 | ED General ---
General Stated Complaint: DIZZINESS Source of Information: Patient History of Present Illness Date Seen by Provider: Mar 15, 2021 Time Seen by Provider: 20:45 Initial Comments 55-year-old female presenting with complaints of dizziness and fall x2 at home. She states that this evening she became dizzy and was having increased dizziness when she goes to stand up. She had fallen twice at home because of the dizziness. She states that she was having no new shortness of breath, chest pain, fever, chills, abdominal pain, change in vision, loss of consciousness or hitting her head. After her second fall she activated EMS to be evaluated. She was seen yesterday, March 14, for head and neck pain. She denies any new numbness or weakness in arms or legs. She had an irritated area in her bladder that Dr. Sahni is watching and she does have frequency but denies any pain with urination. No nausea, vomiting or diarrhea. Her blood pressure was low when EMS arrived and it was 85 systolic. On arrival to ED she is 112-115 systolic and pt denies any dizziness. Timing/Duration: 1-3 Hours Severity: Moderate Associated Systoms: No Chest Pain; Cough (chronic and no worse than usual); No Diaphoresis, No Fever/Chills; Headaches (yesterday); No Loss of Appetite, No Malaise, No Nausea/Vomiting, No Rash; Seizure (history of seizures but does not think she had one tonight), Shortness of Air (chronic and no worse than usual) Allergies and Home Medications Allergies Coded Allergies: No Known Drug Allergies (Unverified , 03/09/21) Home Medications Acetaminophen 500 Mg Tablet, 1,000 MG PO Q6H PRN for PAIN-MILD (1-4), (Reported) Albuterol Sulfate 1 Puff Puff, 2 PUFF IH Q4H PRN for SHORTNESS OF BREATH, (Reported) Benzonatate 100 Mg Capsule, 100 MG PO PRN PRN for COUGHING, (Reported) Colestipol HCl 1 Gm Tablet, 1 GM PO DAILY, (Reported) Escitalopram Oxalate 20 Mg Tablet, 40 MG PO DAILY, (Reported) TAKES 2 (20MG) TABLETS Fluticasone Propion/Salmeterol 1 Each Blst.w.dev, 1 PUFF INH DAILY, (Reported) Gabapentin 100 Mg Capsule, 100 MG PO HS, (Reported) Ibuprofen 800 Mg Tablet, 800 MG PO Q8H PRN for PAIN-MILD (1-4), (Reported) Insulin Aspart 100 Unit/1 Ml Susp, 25 UNITS SQ TIDWM, (Reported) Insulin Degludec 200 Unit/1 Ml Insuln.pen, 126 UNITS SQ DAILY, (Reported) Ipratropium [place] 12.9 Gm Aers, 2 PUFF IH QID PRN for SHORTNESS OF BREATH, (Reported) Lisinopril 5 Mg Tablet, 5 MG PO DAILY, (Reported) Loratadine 10 Mg Tablet, 10 MG PO DAILY, (Reported) Metformin HCl 500 Mg Tab.er.24h, 1,000 MG PO HS Hold Metformin for 48 hours Prescribed by: GLORIA ALEXANDER on 03/09/21 1101 Mirabegron 25 Mg Tab.er.24h, 25 MG PO DAILY, (Reported) Montelukast Sodium 10 Mg Tablet, 10 MG PO DAILY, (Reported) Naproxen Sodium 220 Mg Tablet, 220-440 MG PO BID PRN for PAIN-MILD (1-4), (Reported) Nebivolol HCl 10 Mg Tab, 10 MG PO DAILY, (Reported) LAST FILLED 01/03/20 #90 90 DAY SUPPLY Olanzapine 10 Mg Tablet, 10 MG PO HS, (Reported) Promethazine HCl 25 Mg Tablet, 12.5 MG PO Q6H PRN for NAUSEA/VOMITING, (Reported) TAKES (25MG) TABLET Roflumilast 500 Mcg Tablet, 500 MCG PO DAILY, (Reported) Semaglutide 1 Mg/0.75 Ml Pen.injctr, 1 MG INJ SUNDAY, (Reported) Simethicone 180 Mg Capsule, 180 MG PO DAILY PRN for STOMACH UPSET, (Reported) Tramadol HCl 50 Mg Tablet, 50-100 MG PO BID PRN for PAIN-MODERATE (5-7), ( Reported) Ziprasidone 80 Mg Cap, 160 MG PO HS, (Reported) TAKE 2 (80MG) TABLETS Patient Home Medication List Home Medication List Reviewed: Yes Review of Systems Review of Systems Constitutional: No chills; dizziness; No fever EENTM: no symptoms reported Respiratory: see HPI Cardiovascular: see HPI Gastrointestinal: see HPI Genitourinary: see HPI Musculoskeletal: no symptoms reported Skin: no symptoms reported Psychiatric/Neurological: See HPI Past Nhvkupo-Lajadf-Otfkiq Hx Immunizations Up To Date Second COVID19 Vaccination Flako: January 2021 Seasonal Allergies Seasonal Allergies: No Past Medical History Surgery/Hospitalization HX: DDD with R arm radiculopathy/"future back surgery", negative heart cath 03/09/21 Surgeries: Yes Bladder Surgery, Gallbladder, Hysterectomy, Tonsillectomy Respiratory: Yes Asthma, COPD Currently Using CPAP: No Currently Using BIPAP: No Cardiac: Yes High Cholesterol, Hypertension 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 had recent axilla abscess) Recent Skin Changes Blood Disorders: Yes (HEP C) Adverse Reaction/Blood Tranf: No Physical Exam Vital Signs Vital Signs - First Documented 03/15/21 20:46 Temp 37.1 Pulse 93 Resp 18 B/P (MAP) 115/88 (97) Pulse Ox 95 O2 Delivery Room Air Capillary Refill : Height, Weight, BMI Height: 5'7.00" Weight: 224lbs. 0.0oz. 101.686710kh; 32.00 BMI Method:Actual General Appearance: No Apparent Distress, Obese, Other (disheveled and wearing dirty clothes) HEENT: No Moist Mucous Membranes (dry mucous membranes) Respiratory: Chest Non Tender, Lungs Clear, Normal Breath Sounds, No Accessory Muscle Use, No Respiratory Distress Cardiovascular: Regular Rate, Rhythm, Normal Peripheral Pulses Gastrointestinal: No Pulsatile Mass, Non Tender, Soft Rectal: Deferred Extremity: Normal Capillary Refill, Normal Inspection, No Pedal Edema Neurologic/Psychiatric: Alert, Oriented x3, manager intensive care II-XII Norm as Tested Skin: Normal Color, Warm/Dry Focused Exam Lactate Level 03/15/21 22:17: Lactic Acid Level 1.35 Lactic Acid Level Laboratory Tests Test 03/15/21 22:17 Lactic Acid Level 1.35 MMOL/L (0.50-2.00) Progress/Results/Core Measures Suspected Sepsis SIRS Temperature: Pulse: Respiratory Rate: Laboratory Tests 03/15/21 20:58: White Blood Count 10.8 Blood Pressure / Mean: 03/15/21 22:17: Lactic Acid Level 1.35 Laboratory Tests 03/15/21 20:58: Creatinine 1.98H, Platelet Count 239, Total Bilirubin 0.2 Results/Orders Lab Results Laboratory Tests Test 03/15/21 20:58 03/15/21 21:45 03/15/21 22:17 Range/Units White Blood Count 10.8 4.3-11.0 10^3/uL Red Blood Count 4.49 3.80-5.11 10^6/uL Hemoglobin 12.9 11.5-16.0 g/dL Hematocrit 40 35-52 % Mean Corpuscular Volume 89 80-99 fL Mean Corpuscular Hemoglobin 29 25-34 pg Mean Corpuscular Hemoglobin Concent 32 32-36 g/dL Red Cell Distribution Width 15.5 H 10.0-14.5 % Platelet Count 239 130-400 10^3/uL Mean Platelet Volume 10.2 9.0-12.2 fL Immature Granulocyte % (Auto) 0 % Neutrophils (%) (Auto) 57 42-75 % Lymphocytes (%) (Auto) 35 12-44 % Monocytes (%) (Auto) 7 0-12 % Eosinophils (%) (Auto) 1 0-10 % Basophils (%) (Auto) 1 0-10 % Neutrophils # (Auto) 6.2 1.8-7.8 X 10^3 Lymphocytes # (Auto) 3.8 1.0-4.0 X 10^3 Monocytes # (Auto) 0.7 0.0-1.0 X 10^3 Eosinophils # (Auto) 0.1 0.0-0.3 10^3/uL Basophils # (Auto) 0.1 0.0-0.1 10^3/uL Immature Granulocyte # (Auto) 0.0 0.0-0.1 10^3/uL Neutrophils % (Manual) 51 % Lymphocytes % (Manual) 31 % Monocytes % (Manual) 7 % Eosinophils % (Manual) 1 % Atypical Lymphocytes 10 % Smudge Cells SLIGHT Polychromasia SLIGHT Macrocytosis SLIGHT Sodium Level 134 L 135-145 MMOL/L Potassium Level 4.1 3.6-5.0 MMOL/L Chloride Level 99 98-107 MMOL/L Carbon Dioxide Level 20 L 21-32 MMOL/L Anion Gap 15 H 5-14 MMOL/L Blood Urea Nitrogen 21 H 7-18 MG/DL Creatinine 1.98 H 0.60-1.30 MG/DL Estimat Glomerular Filtration Rate 26 BUN/Creatinine Ratio 11 Glucose Level 139 H 70-105 MG/DL Calcium Level 9.6 8.5-10.1 MG/DL Corrected Calcium 9.5 8.5-10.1 MG/DL Total Bilirubin 0.2 0.1-1.0 MG/DL Aspartate Amino Transf (AST/SGOT) 33 5-34 U/L Alanine Aminotransferase (ALT/SGPT) 33 0-55 U/L Alkaline Phosphatase 83 40-136 U/L Total Protein 7.0 6.4-8.2 GM/DL Albumin 4.1 3.2-4.5 GM/DL Lipase 43 8-78 U/L Urine Color YELLOW Urine Clarity CLEAR Urine pH 5.5 5-9 Urine Specific [place] 1.010 L 1.016-1.022 Urine Protein NEGATIVE NEGATIVE Urine Glucose (UA) NEGATIVE NEGATIVE Urine Ketones TRACE H NEGATIVE Urine Nitrite NEGATIVE NEGATIVE Urine Bilirubin NEGATIVE NEGATIVE Urine Urobilinogen 0.2 < = 1.0 MG/DL Urine Leukocyte Esterase 2+ H NEGATIVE Urine RBC (Auto) NEGATIVE NEGATIVE Urine RBC 0-2 /HPF Urine WBC 10-25 H /HPF Urine Squamous Epithelial Cells 2-5 /HPF Urine Crystals NONE /LPF Urine Bacteria MODERATE H /HPF Urine Casts PRESENT /LPF Urine Hyaline Casts 25-50 H /LPF Urine Mucus NEGATIVE /LPF Urine Culture Indicated YES Lactic Acid Level 1.35 0.50-2.00 MMOL/L My Orders Orders - DIANE DELCID MD Comprehensive Metabolic Panel (03/15/21 20:54) Lipase (03/15/21 20:54) Ua Culture If Indicated (03/15/21 20:54) Ed Iv/Invasive Line Start (03/15/21 20:54) Cbc With Automated Diff (03/15/21 20:54) Ekg Tracing (03/15/21 20:54) Ct Head Wo (03/15/21 20:54) Ns Iv 1000 Ml (Sodium Chloride 0.9%) (03/15/21 20:54) Manual Differential (03/15/21 20:58) Urine Culture (03/15/21 21:45) Ns Iv 1000 Ml (Sodium Chloride 0.9%) (03/15/21 22:08) Blood Culture (03/15/21 22:08) Lactic Acid Analyzer (03/15/21 22:08) Ceftriaxone (Rocephin) (03/15/21 22:24) Vital Signs/I&O 03/15/21 03/15/21 20:46 22:46 Temp 37.1 Pulse 93 68 Resp 18 18 B/P (MAP) 115/88 (97) 118/78 (91) Pulse Ox 95 98 O2 Delivery Room Air Room Air 03/16/21 00:00 Intake Total 1000 ml Balance 1000 ml Capillary Refill : Progress Note #1: Progress Note check labs, urine, ECG, CT head. Give IVF 1 L NS bolus. Differential diagnosis includes UTI, Dehydration, Sinusitis, stroke, inner ear infection, vertigo, hypotension Progress Note #2: Progress Note CT head shows left maxillary sinusitis but no acute intracranial process. CBC with stable WBC at 10.8. fluids infusing and pt stable Progress Note #3: Progress Note Chemistry shows elevated BUN to 21 and Cr to 1.98. this is up from her baseline of around 1 from 2 weeks ago. Since she had heart cath last week she has had increasing Cr with 1.36 yesterday when seen for headache and today with 1.98. UA after a Liter of fluids she was finally able to provide a sample and was showing LE with bacteria and WBC for a UTI. Culture was reflexed. Will add on blood cultures and lactic acid and contact Dr. Dickens about observation stay for fluids and recheck in am. Give Rocephin for UTI and si nusitis so this will be more gentle on her kidneys. 2221 d/w Dr. Dickens and she accepted for observation stay with telemetry bed. Give IVF overnight at 100 ml/hr Progress Note #4: Progress Note Lactic acid not elevated. Blood pressure stable with fluids infusing as she got 2 Liters of NS bolus. Proceed with admit to [facility] ECG Initial ECG Impression Date: Mar 15, 2021 Initial ECG Impression Time: 20:51 Initial ECG Rate: 89 Initial ECG Rhythm: Normal Sinus Initial ECG Comparisson: Unchanged Comment Normal sinus rhythm with a heart rate 89 bpm. DE interval [address] elevation. Borderline prolonged QT interval of 403 ms and QTc interval of 491 ms appears similar to prior tracings in the system. Diagnostic Imaging Diagonstic Imaging: CT Plain Films/CT/US/NM/MRI: head Comments NAME: DOMINIQUE PINEDA [facility] REC#: [id number] PT STATUS: REG ER : 1965 PHYSICIAN: DIANE DELCID MD ADMIT DATE: 03/15/21/ER FS Draft Date of Exam:03/15/21 CT HEAD WO PROCEDURE: CT head without contrast. TECHNIQUE: Multiple contiguous axial images were obtained through the brain without the use of intravenous contrast. Auto Exposure Controls were utilized during the CT exam to meet ALARA standards for radiation dose reduction. DATE: March 15, 2021. COMPARISON: CT head January 23, 2020. INDICATION: 55-year-old female, dizziness and near syncope. FINDINGS: The ventricles and cerebral spinal fluid spaces are of normal size and configuration for the patient's age. There is no mass effect or midline shift. There is no acute intracranial hemorrhage. There is no abnormal extra-axial fluid collection. There is mucosal thickening of the left maxillary sinus. There are bubbly areas of lucency in the left maxillary sinus. IMPRESSION: 1. No identified acute intracranial abnormality. 2. Left maxillary sinus opacification which may potentially reflect acute sinusitis. Recommend correlation. Dictated on workstation # [id number] Dict: 03/15/212113 Trans: 03/15/212117 [facility] [id number] Interpreted by: PURA BAILON MD Electronically signed by: Reviewed: Reviewed by Me Departure Communication (Admissions) Time/Spoke to Admitting Phy: 22:22 d/w Dr. Dickens and will admit for hydration overnight and recheck labs. Rocephin for UTI and sinusitis. Impression Primary Impression: Acute kidney failure Qualified Codes: N17.9 - Acute kidney failure, unspecified Additional Impressions: Dizziness Dehydration Vasovagal near syncope Left maxillary sinusitis Cystitis without hematuria Disposition: 30 STILL A PATIENT Condition: Stable Admissions Decision to Admit Reason: Admit from ER (General) Decision to Admit/Date: Mar 15, 2021 Time/Decision to Admit Time: 22:22 Departure-Patient Inst. Referrals: SACHIN MARQUEZ APRN (PCP) Primary Care Physician [facility] (Family) Primary Care Physician DIANE DELCID MD Mar 15, 2021 21:02
[2021-03-15 21:06] LABS: HEMOGLOBIN 12.9 g/dL (11.5-16.0); MEAN CORPUSCULAR HEMOGLOBIN 29 pg (25-34); WHITE BLOOD COUNT 10.8 10^3/uL (4.3-11.0)
[2021-03-15 21:07] LABS: BASOPHILS # (AUTO) 0.1 10^3/uL (0.0-0.1); BASOPHILS % (AUTO) 1 % (0-10); EOSINOPHILS # (AUTO) 0.1 10^3/uL (0.0-0.3); EOSINOPHILS % (AUTO) 1 % (0-10); HEMATOCRIT 40 % (35-52); LYMPHOCYTES # (AUTO) 3.8 X 10^3 (1.0-4.0); LYMPHOCYTES % (AUTO) 35 % (12-44); MEAN CORPUSCULAR HGB CONC 32 g/dL (32-36); MEAN CORPUSCULAR VOLUME 89 fL (80-99); MEAN PLATELET VOLUME 10.2 fL (9.0-12.2); MONOCYTES # (AUTO) 0.7 X 10^3 (0.0-1.0); MONOCYTES % (AUTO) 7 % (0-12); NEUTROPHILS # (AUTO) 6.2 X 10^3 (1.8-7.8); NEUTROPHILS % (AUTO) 57 % (42-75); PLATELET COUNT 239 10^3/uL (130-400)
--- NOTE | 2021-03-15 21:19 | Diagnostic Imaging Report ---
PROCEDURE: CT head without contrast. TECHNIQUE: Multiple contiguous axial images were obtained through the brain without the use of intravenous contrast. Auto Exposure Controls were utilized during the CT exam to meet ALARA standards for radiation dose reduction. DATE: March 15, 2021. COMPARISON: CT head January 23, 2020. INDICATION: 55-year-old female, dizziness and near syncope. FINDINGS: The ventricles and cerebral spinal fluid spaces are of normal size and configuration for the patient's age. There is no mass effect or midline shift. There is no acute intracranial hemorrhage. There is no abnormal extra-axial fluid collection. There is mucosal thickening of the left maxillary sinus. There are bubbly areas of lucency in the left maxillary sinus. IMPRESSION: 1. No identified acute intracranial abnormality. 2. Left maxillary sinus opacification which may potentially reflect acute sinusitis. Recommend correlation. Dictated by: Dictated on workstation # [id number]
[2021-03-15 21:26] LABS: NEUTROPHILS % (MANUAL) 51 %
[2021-03-15 21:27] LABS: ATYPICAL LYMPHOCYTES 10 %; EOSINOPHILS % (MANUAL) 1 %; LYMPHOCYTES % (MANUAL) 31 %; MONOCYTES % (MANUAL) 7 %; POLYCHROMASIA SLIGHT; SMUDGE CELLS SLIGHT
[2021-03-15 21:28] LABS: ALBUMIN 4.1 GM/DL (3.2-4.5); BILIRUBIN,TOTAL 0.2 MG/DL (0.1-1.0); CALCIUM 9.6 MG/DL (8.5-10.1); CREATININE SERUM 1.98 MG/DL (0.60-1.30); POTASSIUM 4.1 MMOL/L (3.6-5.0)
[2021-03-15 21:54] LABS: COLOR,URINE YELLOW
[2021-03-15 21:55] LABS: BACTERIA,URINE MODERATE /HPF; BILIRUBIN,URINE NEGATIVE (NEGATIVE); CLARITY,URINE CLEAR; GLUCOSE, URINE (UA) NEGATIVE (NEGATIVE); HYALINE CASTS, URINE 25-50 /LPF; KETONES,URINE TRACE (NEGATIVE); LEUKOCYTE ESTERASE ,URINE 2+ (NEGATIVE); NITRITE,URINE NEGATIVE (NEGATIVE); PH,URINE 5.5 (5-9); PROTEIN,URINE NEGATIVE (NEGATIVE); RBC,URINE 0-2 /HPF
[2021-03-15] MEDS ORDERED: cefTRIAXone 1,000 MG in WATER (STERILE) FOR INJECTION 10 ML IV STA (22:24)
[2021-03-16] VITALS (9 sets, daily range): BP systolic 75–165; BP diastolic 45–76
[2021-03-16] MEDS: NS IV 1000 ML 1,000 ML IV SCH ×2 (00:42→10:05)
[2021-03-16] MEDS ORDERED: RT-ALBUTEROL SULF 2.5 MG/3 ML PRE-MIX VIAL INH PRN (01:30)
[2021-03-16 05:30] LABS: BASOPHILS # (AUTO) 0.1 10^3/uL (0.0-0.1); BASOPHILS % (AUTO) 1 % (0-10); EOSINOPHILS # (AUTO) 0.2 10^3/uL (0.0-0.3); EOSINOPHILS % (AUTO) 3 % (0-10); HEMATOCRIT 37 % (35-52); HEMOGLOBIN 11.4 g/dL (11.5-16.0); LYMPHOCYTES # (AUTO) 2.6 10^3/uL (1.0-4.0); LYMPHOCYTES % (AUTO) 40 % (12-44); MEAN CORPUSCULAR HEMOGLOBIN 29 pg (25-34); MEAN CORPUSCULAR HGB CONC 31 g/dL (32-36); MEAN CORPUSCULAR VOLUME 94 fL (80-99); MEAN PLATELET VOLUME 10.4 fL (9.0-12.2); MONOCYTES # (AUTO) 0.5 10^3/uL (0.0-1.0); MONOCYTES % (AUTO) 7 % (0-12); NEUTROPHILS # (AUTO) 3.1 10^3/uL (1.8-7.8); NEUTROPHILS % (AUTO) 48 % (42-75); PLATELET COUNT 168 10^3/uL (130-400); WHITE BLOOD COUNT 6.4 10^3/uL (4.3-11.0)
[2021-03-16 05:44] LABS: POTASSIUM 3.9 MMOL/L (3.6-5.0)
[2021-03-16 05:50] LABS: CREATININE SERUM 1.4 MG/DL (0.60-1.30)
--- NOTE | 2021-03-16 09:58 | History & Physical ---
DEMOND HILL 03/16/21 0958: HPI History of Present Illness: 55y/o F with Hx of HLD, HTN, DM, hep C, COPD, and bladder/kidney CA admitted due to acute dizziness and fall x2 starting yesterday. Denies head injury/LOC. S tates that she felt both dizzy/room spinning and lightheaded during these episodes which were brief and resolved with rest. Worsened upon standing up. Did not change with head movement/head position. Reports associated N/V and SOB. Also reports dysuria as well as decreased appetite and 40lbs weight loss in the past 2mo. No fever, numbness/tingling, hematuria, hematochezia, melena, hematemesis, or coffee-ground emesis. Last colonoscopy was done 4-5mo ago. States that they removed a few polyps at that time. States that she recently had a heart cath done on 03/09 which was nml, but she has felt increasingly tired since then. Source: patient Date seen by provider: Mar 16, 2021 Time Seen by Provider: 09:00 Attending Physician Sony Dickens MD PCP Lupe Chapman Aprn Consult Date of Admission Mar 16, 2021 at 00:05 Home Medications Home Medications Reviewed patient Home Medication Reconciliation performed by pharmacy medication reconciliations emergency vehicle technician and/or nursing. Patients Allergies have been reviewed. Allergies Coded Allergies: No Known Drug Allergies (Unverified , 03/09/21) [id number]-Pbxyio Hx Patient Social History Marrital Status: Drug of Choice: marijuana-states last use 1-2 months ago Smoking Status: Current Everyday Smoker (cutting down, 2-3cigs/day) 2nd Hand Smoke Exposure: Yes Recent Hopitalizations: No Alcohol Use?: Yes (rare) Substance type: Marijuana (1-2x/mo) Tobacco type used: Cigarettes Have you traveled recently?: No Immunizations Up To Date Date of Pneumonia Vaccine: Apr 15, 2020 Date of Influenza Vaccine: Mar 16, 2020 Past Medical History Surgery/Hospitalization HX: DDD with R arm radiculopathy/"future back surgery", negative heart cath 03/09/21 Surgeries: Yes Bladder Surgery, Gallbladder, Hysterectomy, Tonsillectomy Respiratory: Yes Asthma, COPD Currently Using CPAP: No Currently Using BIPAP: No Cardiac: Yes High Cholesterol, Hypertension Neurological: No [employer] History: Hysterectomy Genitourinary: Yes (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 had recent axilla abscess) Recent Skin Changes Blood Disorders: Yes (HEP C) Adverse Reaction/Blood Tranf: No Family Medical History Significant Family History: Heart Disease (dad), Cancer (mom-kidney; maternal grandpa-skin), CVA (maternal grandma), Other Conditions/Hx (grandma-[place]) Review of Systems ([facility]) Constitutional: diaphoresis (yesterday), dizziness (lightheadedness); No fever; weight loss EENTM: No eye pain, No vision loss Respiratory: short of breath, wheezing (chronic) Gastrointestinal: No abdominal pain; nausea, vomiting Genitourinary: dysuria Musculoskeletal: back pain (chronic), neck pain (chronic) Skin: No change in color, No dryness Psychiatric/Neurological: Denies Headache, Denies Numbness, Denies Tingling Reviewed Test Results Reviewed Test Results Lab WBC trending down to 6.4 Hgb 11.4 Electrolytes nml Cr 1.4 Physical Exam-([facility]) Physical Exam Vital Signs VS - Last 72 Hours, by Label 03/15/21 03/15/21 03/16/21 03/16/21 20:46 22:46 00:08 00:09 Temp 37.1 36.2 Pulse 93 68 69 Resp 18 18 22 B/P (MAP) 115/88 (97) 118/78 (91) 119/75 (90) Pulse Ox 95 98 97 97 O2 Delivery Room Air Room Air Room Air Room Air 03/16/21 03/16/21 03/16/21 03/16/21 01:21 04:09 08:00 08:00 Temp 36.2 35.6 36.0 Pulse 69 67 59 Resp 20 16 B/P (MAP) 91/55 (67) 141/69 (93) Pulse Ox 97 91 94 94 O2 Delivery Room Air Room Air Room Air FiO2 21 03/16/21 11:14 Temp 36.0 Pulse 63 Resp 18 B/P (MAP) 158/76 (103) Pulse Ox 96 O2 Delivery Room Air Capillary Refill : Less Than 3 Seconds General Appearance: WD/WN, no apparent distress HEENT: PERRL/EOMI, other (no nystagmus) Neck: full range of motion, supple Respiratory: chest non-tender, no respiratory distress, crackles, wheezing (diffuse) Cardiovascular: regular rate, rhythm Gastrointestinal: non tender, soft Extremities: normal range of motion, normal capillary refill Neurologic/Psychiatric: no motor/sensory deficits, alert, normal mood/affect, oriented x 3 Skin: normal color, warm/dry Assessment/Plan Assessment/Plan Admission Dx Dehydration FABY Dizziness UTI Sinusitis (1) Orthostatic hypotension Status: Acute Assessment & Plan: May be secondary to dehydration given recent decreased PO intake Continue IVF and transition to PO fluid intake PT consulted (2) Acute kidney failure Status: Acute Assessment & Plan: Continue IVF Cr improved 1.9 -> 1.4 Qualifiers: Qualified Codes: N17.9 - Acute kidney failure, unspecified (3) Cystitis without hematuria Status: Acute Assessment & Plan: Ceftriaxone ordered (4) Left maxillary sinusitis Status: Acute Assessment & Plan: Ceftriaxone ordered SONY DICKENS MD 03/16/21 2206: HPI History of Present Illness: Source: patient Exam Limitations: no limitations Home Medications Allergies Coded Allergies: No Known Drug Allergies (Unverified , 03/09/21) [id number] Hx Past Medical History IDDM HTN h/o Bladder Ca Mood disorder Review of Systems ([facility]) Constitutional: dizziness (lightheadedness); No fever; weakness, weight loss EENTM: no symptoms reported; No mouth pain, No nose congestion Respiratory: No cough; dyspnea on exertion, short of breath Cardiovascular: no symptoms reported; No chest pain, No edema, No palpitations Gastrointestinal: no symptoms reported; No abdominal pain; loss of appetite, nausea, vomiting Genitourinary: dysuria, frequency; No hematuria : No Musculoskeletal: back pain (chronic), neck pain (chronic) Skin: no symptoms reported Psychiatric/Neurological: Numbness, Weakness Reviewed Test Results Reviewed Test Results Lab Laboratory Tests Test 03/15/21 22:17 03/16/21 05:15 Range/Units Lactic Acid Level 1.35 0.50-2.00 MMOL/L White Blood Count 6.4 4.3-11.0 10^3/uL Red Blood Count 3.95 3.80-5.11 10^6/uL Hemoglobin 11.4 L 11.5-16.0 g/dL Hematocrit 37 35-52 % Mean Corpuscular Volume 94 80-99 fL Mean Corpuscular Hemoglobin 29 25-34 pg Mean Corpuscular Hemoglobin Concent 31 L 32-36 g/dL Red Cell Distribution Width 15.3 H 10.0-14.5 % Platelet Count 168 130-400 10^3/uL Mean Platelet Volume 10.4 9.0-12.2 fL Immature Granulocyte % (Auto) 0 % Neutrophils (%) (Auto) 48 42-75 % Lymphocytes (%) (Auto) 40 12-44 % Monocytes (%) (Auto) 7 0-12 % Eosinophils (%) (Auto) 3 0-10 % Basophils (%) (Auto) 1 0-10 % Neutrophils # (Auto) 3.1 1.8-7.8 10^3/uL Lymphocytes # (Auto) 2.6 1.0-4.0 10^3/uL Monocytes # (Auto) 0.5 0.0-1.0 10^3/uL Eosinophils # (Auto) 0.2 0.0-0.3 10^3/uL Basophils # (Auto) 0.1 0.0-0.1 10^3/uL Immature Granulocyte # (Auto) 0.0 0.0-0.1 10^3/uL Sodium Level 138 135-145 MMOL/L Potassium Level 3.9 3.6-5.0 MMOL/L Chloride Level 109 H 98-107 MMOL/L Carbon Dioxide Level 20 L 21-32 MMOL/L Anion Gap 9 5-14 MMOL/L Blood Urea Nitrogen 15 7-18 MG/DL Creatinine 1.40 H 0.60-1.30 MG/DL Estimat Glomerular Filtration Rate 39 BUN/Creatinine Ratio 11 Glucose Level 158 H 70-105 MG/DL Calcium Level 9.0 8.5-10.1 MG/DL Physical Exam-([facility]) Physical Exam General Appearance: WD/WN, no apparent distress HEENT: PERRL/EOMI Neck: non-tender, full range of motion, supple Respiratory: chest non-tender, no respiratory distress, no accessory muscle use, wheezing (diffuse) Cardiovascular: normal peripheral pulses, regular rate, rhythm, no edema, no murmur Gastrointestinal: normal bowel sounds, non tender, soft; No guarding, No rebound, No tenderness Extremities: normal range of motion, no pedal edema, no calf tenderness, normal capillary refill Neurologic/Psychiatric: traffic 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-XII nml as tested, no motor/sensory deficits, alert, normal mood/affect, oriented x 3 Skin: normal color, warm/dry Lymphatic: no adenopathy Assessment/Plan Assessment/Plan Admission Status: Observation (1) Cystitis without hematuria Status: Acute Assessment & Plan: - Rocephin, urine culture pending (2) Acute kidney failure Status: Acute Assessment & Plan: - Gentle hydration, stop NSAIDs Qualifiers: Qualified Codes: N17.9 - Acute kidney failure, unspecified (3) Orthostatic hypotension Status: Acute Assessment & Plan: - Improved with IVFs, encourage PO hydration (4) Left maxillary sinusitis Status: Acute (5) Insulin dependent diabetes mellitus Status: Chronic Assessment & Plan: - SSI, Accuchecks (6) Fall Status: Acute Assessment & Plan: - Normal CT, likely 2/2 hypotension Qualifiers: Qualified Codes: W19.XXXA - Unspecified fall, initial encounter (7) Mood disorder Status: Chronic Assessment & Plan: - Restart home meds (8) DVT prophylaxis Status: Acute Assessment & Plan: - Lovenox Supervisory-Addendum Brief Verification & Attestation Participated in pt care: history, physical Personally performed: exam, history Care discussed with: Medical Student Procedures: n/a Verification and Attestation of Medical Student E/M Service A medical student performed and documented this service in my presence. I reviewed and verified all information documented by the medical student and made modifications to such information, when appropriate. I personally performed the physical exam and medical decision making. Sony Dickens, Mar 16, 2021,22:06 DEMOND HILL Mar 16, 2021 09:58 SONY DICKENS MD Mar 16, 2021 22:06
[2021-03-16] MEDS ORDERED: INSU100I14 SC (10:58)
[2021-03-16] MEDS ORDERED: [UNRECOGNIZED DRUG - CODE] TP (10:58)
[2021-03-16] MEDS ORDERED: ZIPR80CA21 PO (10:58)
[2021-03-16] MEDS ORDERED: TRAM50TA3 PO (10:58)
[2021-03-16] MEDS ORDERED: METF-478 PO (10:58)
[2021-03-16] MEDS ORDERED: ACET-3075 PO (10:58)
[2021-03-16] MEDS ORDERED: cefTRIAXone 1,000 MG/SWFI 10 ML IV PUSH IV SCH ×2 (21:00)
[2021-03-16] MEDS ORDERED: ENOXAPARIN 40 MG/0.4 ML (LOVENOX) SYR SQ SCH (23:00)
[2021-03-17 04:34] VITALS: BP 137/85
[2021-03-17 04:57] LABS: BASOPHILS # (AUTO) 0.1 10^3/uL (0.0-0.1); BASOPHILS % (AUTO) 1 % (0-10); EOSINOPHILS # (AUTO) 0.2 10^3/uL (0.0-0.3); EOSINOPHILS % (AUTO) 3 % (0-10); HEMATOCRIT 36 % (35-52); HEMOGLOBIN 11.1 g/dL (11.5-16.0); LYMPHOCYTES # (AUTO) 1.9 10^3/uL (1.0-4.0); LYMPHOCYTES % (AUTO) 41 % (12-44); MEAN CORPUSCULAR HEMOGLOBIN 29 pg (25-34); MEAN CORPUSCULAR HGB CONC 31 g/dL (32-36); MEAN CORPUSCULAR VOLUME 93 fL (80-99); MEAN PLATELET VOLUME 10.4 fL (9.0-12.2); MONOCYTES # (AUTO) 0.4 10^3/uL (0.0-1.0); MONOCYTES % (AUTO) 8 % (0-12); NEUTROPHILS # (AUTO) 2.2 10^3/uL (1.8-7.8); NEUTROPHILS % (AUTO) 47 % (42-75); PLATELET COUNT 163 10^3/uL (130-400); WHITE BLOOD COUNT 4.7 10^3/uL (4.3-11.0)
[2021-03-17 05:28] LABS: ALBUMIN 3.4 GM/DL (3.2-4.5); BILIRUBIN,TOTAL 0.2 MG/DL (0.1-1.0); CALCIUM 8.8 MG/DL (8.5-10.1); CREATININE SERUM 0.97 MG/DL (0.60-1.30); POTASSIUM 3.9 MMOL/L (3.6-5.0); TOTAL PROTEIN 5.9 GM/DL (6.4-8.2)
[2021-03-17] MEDS: inSUlin ASPART (NovoLOG) 1 UNIT/0.01 ML (CHARGE PER UNIT) SC SCH ×2 (05:29→11:40)
[2021-03-17 07:32] VITALS: BP 153/80
[2021-03-17] MEDS ORDERED: MONTELUKAST 10 MG (SINGULAIR) TAB PO SCH (09:00)
--- NOTE | 2021-03-17 09:47 | Progress Note ---
Subjective Subjective/Events-last exam ISMAELEO. Pt feeling well. States she has been able to walk to the bathroom independently since yesterday evening. No N/V, dizziness/lightheadedness, RUSSELL, SOB, or new complaints. States that she was taken here by ambulance, so will need transportation arranged to get back home once she is d/c'd. Review of Systems General: No Chills; Appetite (decreased) HEENT: No Head Aches, No Sinus Congestion Pulmonary: No Cough Cardiovascular: No: Chest Pain Gastrointestinal: No: Nausea, Vomiting, Abdominal Pain Musculoskeletal: neck pain (chronic), back pain (chronic) Neurological: No: Numbness, Confusion Focused Exam Lactate Level 03/15/21 22:17: Lactic Acid Level 1.35 Objective Exam Last Set of Vital Signs Vital Signs Date Time Temp Pulse Resp B/P (MAP) Pulse Ox O2 Delivery O2 Flow Rate FiO2 03/17/21 08:00 Room Air 03/17/21 07:32 37.6 73 20 153/80 (104) 98 03/16/21 01:21 21 Capillary Refill : Less Than 3 Seconds I&O Intake and Output 03/17/21 00:00 Intake Total 2832 ml Output Total 5375 ml Balance -2543 ml Intake Oral 2832 ml Output Urine Total 5375 ml Daily Weight Change No General: Alert, Oriented X3, Cooperative HEENT: Atraumatic, PERRLA, EOMI, Other (no nystagmus) Neck: Supple, No JVD Lungs: Clear to Auscultation, Normal Air Movement Heart: Regular Rate, Normal S1, Normal S2 Abdomen: Soft, No Tenderness Extremities: No Clubbing, No Edema Skin: No Rashes, No Breakdown Neuro: Normal Speech, Sensation Intact Psych/Mental Status: Mental Status NL, Mood NL Results/Procedures Lab Laboratory Tests 03/17/21 04:25: White Blood Count 4.7, Red Blood Count 3.81, Hemoglobin 11.1L, Hematocrit 36, Mean Corpuscular Volume 93, Mean Corpuscular Hemoglobin 29, Mean Corpuscular Hemoglobin Concent 31L, Red Cell Distribution Width 15.2H, Platelet Count 163, Mean Platelet Volume 10.4, Immature Granulocyte % (Auto) 0, Neutrophils (%) (Auto) 47, Lymphocytes (%) (Auto) 41, Monocytes (%) (Auto) 8, Eosinophils (%) (Auto) 3, Basophils (%) (Auto) 1, Neutrophils # (Auto) 2.2, Lymphocytes # (Auto) 1.9, Monocytes # (Auto) 0.4, Eosinophils # (Auto) 0.2, Basophils # (Auto) 0.1, Immature Granulocyte # (Auto) 0.0, Sodium Level 138, Potassium Level 3.9, Chloride Level 112H, Carbon Dioxide Level 17L, Anion Gap 9, Blood Urea Nitrogen 11, Creatinine 0.97, Estimat Glomerular Filtration Rate 60, BUN/Creatinine Ratio 11, Glucose Level 156H, Calcium Level 8.8, Corrected Calcium 9.3, Total Bilirubin 0.2, Aspartate Amino Transf (AST/SGOT) 22, Alanine Aminotransferase (ALT/SGPT) 30, Alkaline Phosphatase 66, Total Protein 5.9L, Albumin 3.4 Microbiology 03/15/21 Blood Culture - Preliminary, Resulted No growth Assessment/Plan Assessment/Plan (1) Cystitis without hematuria Status: Acute Assessment & Plan: - Rocephin, urine culture pending (2) Acute kidney failure Status: Acute Assessment & Plan: - Gentle hydration, stop NSAIDs Qualifiers: Qualified Codes: N17.9 - Acute kidney failure, unspecified (3) Orthostatic hypotension Status: Acute Assessment & Plan: - Improved with IVFs, encourage PO hydration (4) Left maxillary sinusitis Status: Acute (5) Insulin dependent diabetes mellitus Status: Chronic Assessment & Plan: - SSI, Accuchecks (6) Fall Status: Acute Assessment & Plan: - Normal CT, likely 2/2 hypotension Qualifiers: Qualified Codes: W19.XXXA - Unspecified fall, initial encounter (7) Mood disorder Status: Chronic Assessment & Plan: - Restart home meds (8) DVT prophylaxis Status: Acute Assessment & Plan: - Lovenox DEMOND HILL Mar 17, 2021 09:47
[2021-03-17 11:22] VITALS: BP 129/86
--- NOTE | 2021-03-17 11:42 | Discharge Summary ---
Diagnosis/Chief Complaint Date of Admission Mar 16, 2021 at 00:05 Date of Discharge Discharge Diagnosis Problems/Diagnosis: (1) Cystitis without hematuria Assessment & Plan: - Rocephin, urine culture pending Status: Acute (2) Acute kidney failure Assessment & Plan: - Gentle hydration, stop NSAIDs Qualifiers: Qualified Codes: N17.9 - Acute kidney failure, unspecified Status: Acute (3) Orthostatic hypotension Assessment & Plan: - Improved with IVFs, encourage PO hydration Status: Acute (4) Left maxillary sinusitis Status: Acute (5) Insulin dependent diabetes mellitus Assessment & Plan: - SSI, Accuchecks Status: Chronic (6) Fall Assessment & Plan: - Normal CT, likely 2/2 hypotension Qualifiers: Qualified Codes: W19.XXXA - Unspecified fall, initial encounter Status: Acute (7) Mood disorder Assessment & Plan: - Restart home meds Status: Chronic (8) DVT prophylaxis Assessment & Plan: - Lovenox Status: Acute Chief Complaint/HPI Chief Complaint/HPI Discharge Summary-Simple/Stand Consultations Discharge Physical Examination Allergies: Coded Allergies: No Known Drug Allergies (Unverified , 03/09/21) Vitals & I&Os Vital Sign - Last 12Hours Date Time Temp Pulse Resp B/P (MAP) Pulse Ox O2 Delivery O2 Flow Rate FiO2 03/17/21 11:22 36.4 69 18 129/86 (100) 97 Room Air 03/16/21 01:21 21 Intake and Output 03/17/21 00:00 Intake Total 2622 ml Output Total 3875 ml Balance -1253 ml Hospital Course See final discharge diagnosis. Discharge Instructions to patient/family Please see electronic discharge instructions given to patient. Discharge Medications Reviewed and agree with Discharge Medication list on patient's Discharge Instruction sheet SONY OWENS MD Mar 17, 2021 11:42
--- NOTE | 2021-03-17 11:44 | Discharge Summary ---
Discharge [facility] Reconcile Patient Problems Problems Reviewed?: Yes Discharge Medications New, Converted or Re-Newed RX: Transmitted to Pharmacy Continued Medications: Acetaminophen (Tylenol Extra Strength) 500 Mg Tablet 1000 MG PO Q6H PRN for PAIN-MILD (1-4), TAB Acetaminophen/Diphenhydramine (Tylenol Pm Ex-Strength Caplet) 1 Each Tablet 1-2 EACH PO HS PRN for SLEEP, TAB Albuterol Sulfate (Proair Hfa) 1 Puff Puff 2 PUFF IH Q4H PRN for SHORTNESS OF BREATH, PUFF Benzonatate (Tessalon Perles) 100 Mg Capsule 100 MG PO TID PRN for COUGH, CAP Colestipol HCl (Colestipol HCl) 1 Gm Tablet 1 GM PO DAILY, TAB SPACE OUT FROM OTHER MEDS BY 2 HOURS Escitalopram Oxalate (Escitalopram Oxalate) 20 Mg Tablet 40 MG PO DAILY, TAB TAKES 2 (20MG) TABLETS Fluticasone Propion/Salmeterol (Fluticasone-Salmeterol 250-50) 1 Each Blst.w.dev 1 PUFF INH DAILY, INHALER Gabapentin (Gabapentin) 100 Mg Capsule 100 MG PO HS, CAP Insulin Aspart (Novolog Flexpen) 300 Units/3 Ml Solution 25 UNITS SC WM, UNITS Insulin Degludec (Tresiba Flextouch U-200) 200 Unit/1 Ml Insuln.pen 126 UNITS SQ DAILY, UNITS Ipratropium [place] (Atrovent Hfa) 12.9 Gm Aers 2 PUFF IH DAILY PRN for SHORTNESS OF BREATH, EA Loratadine (Claritin) 10 Mg Tablet 10 MG PO DAILY, TAB Menthol (Activice) 118 Ml [place] 1 APPLIC TP UD PRN for PAIN-BREAKTHROUGH, EA APPLIES TO NECK AND RIGHT HAND Metformin HCl (Metformin HCl ER) 500 Mg Tab.er.24 1000 MG PO 1800, TAB Mirabegron (Myrbetriq) 25 Mg Tab.er.24h 25 MG PO DAILY, TAB LAST FILLED 11-04-2020 #90/90 DAY SUPPLY Montelukast Sodium (Singulair) 10 Mg Tablet 10 MG PO DAILY, TAB Nebivolol HCl (Bystolic) 10 Mg Tab 10 MG PO DAILY, TAB LAST FILLED 01/03/20 #90 90 DAY SUPPLY Olanzapine (Olanzapine) 10 Mg Tablet 10 MG PO HS, TAB Promethazine HCl (Promethazine Tablet) 25 Mg Tablet 12.5 MG PO Q6H PRN for NAUSEA/VOMITING, TAB TAKES (25MG) TABLET Roflumilast (Daliresp) 500 Mcg Tablet 500 MCG PO DAILY, TAB Semaglutide (Ozempic) 1 Mg/0.75 Ml Pen.injctr 1 MG INJ SUNDAY, MG Simethicone (Simethicone) 180 Mg Capsule 180 MG PO UD PRN for STOMACH UPSET, CAP Tramadol HCl (Tramadol HCl) 50 Mg Tablet 50 MG PO Q6H PRN for PAIN-MODERATE (5-7), TAB Ziprasidone HCl (Ziprasidone HCl) 80 Mg Capsule 160 MG PO HS, CAP TAKES 2 (80MG) CAPS Discontinued Medications: Lisinopril (Lisinopril) 5 Mg Tablet 5 MG PO DAILY, TAB Patient Instructions Goal/Follow Up Appt: F/u with PCP 1-2 weeks Activity & Diet Discharge Diet: ADA Diet Activity as Tolerated: Yes SONY OWENS MD Mar 17, 2021 11:44
[2021-03-17 15:30] VITALS: BP 129/86
[2021-03-17] MEDS ORDERED: ZIPRASIDONE 40 MG (GEODON) CAP PO SCH (21:00)
[2021-03-17] MEDS ORDERED: OLANZapine 5 MG (ZyPREXA) TAB PO SCH (21:00)
[2021-03-17] MEDS ORDERED: GABAPENTIN 100 MG (NEURONTIN) CAP PO SCH (21:00)
== END 2021-03-17 15:20 | disposition home or self-care (01) ==
LOC: EDUNIT# 20:45 → ER FS 20:47 → 4TH 03-16 00:05
PROVIDERS: ADMIT Family Medicine; ATTEND Family Medicine
DX: N30.90 Cystitis, unspecified without hematuria (principal); N17.9 Acute kidney failure, unspecified; I95.1 Orthostatic hypotension; J32.0 Chronic maxillary sinusitis; E11.9 Type 2 diabetes mellitus without complications; W19.XXXA Unspecified fall, initial encounter; F39 Unspecified mood [affective] disorder; R42 Dizziness and giddiness; E86.0 Dehydration; I10 Essential (primary) hypertension; J44.9 Chronic obstructive pulmonary disease, unspecified; E78.00 Pure hypercholesterolemia, unspecified; G47.9 Sleep disorder, unspecified; F41.9 Anxiety disorder, unspecified; F31.9 Bipolar disorder, unspecified; F17.210 Nicotine dependence, cigarettes, uncomplicated; Z79.4 Long term (current) use of insulin; Z79.899 Other long term (current) drug therapy; Z79.891 Long term (current) use of opiate analgesic; Z90.710 Acquired absence of both cervix and uterus; Z85.51 Personal history of malignant neoplasm of bladder; Z85.528 Personal history of other malignant neoplasm of kidney; B19.20 Unspecified viral hepatitis C without hepatic coma
CPT/HCPCS: 36415; 70450; 80048; 80053; 81000; 82947; 83605; 83690; 85007; 85025; 85027; 87040; 87088; 93005

== ENCOUNTER → 2021-03-23 | Outpatient (CLI) | payer MEDICARE, MEDICAID ==
[~2021-03-23] MED LIST changes: +ACET-3075 PO; +CATHETER FLUSH 10 ML SYR IV PRN; +HOLD METFORMIN - RECEIVED CONTRAST 20 ML VIAL IV SCH; +INSU100I14 SC; +IOHEXOL 350 MG/ML 100 ML (OMNIPAQUE 350) VIAL IV ONE; +NS 100 ML (IVPB) BAG IV ONE; +TRAM50TA3 PO; +ZIPR80CA21 PO; +[UNRECOGNIZED DRUG - CODE] TP
--- NOTE | 2021-03-23 11:04 | Diagnostic Imaging Report ---
EXAMINATION: CHEST (PA AND LATERAL). CLINICAL INDICATION: 55-year-old female, shortness of breath. COMPARISON: November 20, 2019. FINDINGS: There is a left-sided port catheter with the tip overlying the upper SVC. The heart size and mediastinal contours are unchanged. There is no identified pneumothorax. There is no pleural effusion. There is no identified interval focal airspace consolidation. IMPRESSION: No identified acute cardiopulmonary abnormality. Dictated by: Dictated on workstation # [id number]
[2021-03-23 11:32] LABS: POTASSIUM 4.3 MMOL/L (3.6-5.0)
[2021-03-23 11:33] LABS: BILIRUBIN,TOTAL 0.2 MG/DL (0.1-1.0); CALCIUM 8.9 MG/DL (8.5-10.1); CREATININE SERUM 0.92 MG/DL (0.60-1.30); TOTAL PROTEIN 6.9 GM/DL (6.4-8.2)
[2021-03-23 11:34] LABS: BASOPHILS % (AUTO) 1 % (0-10); EOSINOPHILS % (AUTO) 2 % (0-10); HEMATOCRIT 35 % (35-52); HEMOGLOBIN 11.1 g/dL (11.5-16.0); LYMPHOCYTES # (AUTO) 2.1 X 10^3 (1.0-4.0); LYMPHOCYTES % (AUTO) 39 % (12-44); MEAN CORPUSCULAR HEMOGLOBIN 29 pg (25-34); MEAN CORPUSCULAR HGB CONC 32 g/dL (32-36); MEAN CORPUSCULAR VOLUME 90 fL (80-99); MEAN PLATELET VOLUME 9.9 fL (9.0-12.2); MONOCYTES % (AUTO) 6 % (0-12); NEUTROPHILS # (AUTO) 2.9 X 10^3 (1.8-7.8); NEUTROPHILS % (AUTO) 53 % (42-75); PLATELET COUNT 194 10^3/uL (130-400); WHITE BLOOD COUNT 5.5 10^3/uL (4.3-11.0)
[2021-03-23 11:35] LABS: BASOPHILS # (AUTO) 0.1 10^3/uL (0.0-0.1); EOSINOPHILS # (AUTO) 0.1 10^3/uL (0.0-0.3); MONOCYTES # (AUTO) 0.3 X 10^3 (0.0-1.0)
--- NOTE | 2021-03-23 12:36 | Diagnostic Imaging Report ---
PROCEDURE: CT abdomen and pelvis with contrast. TECHNIQUE: Multiple contiguous axial images were obtained through the abdomen and pelvis after administration of intravenous contrast. Auto Exposure Controls were utilized during the CT exam to meet ALARA standards for radiation dose reduction. All CT scans use one or more of the following dose optimizing techniques: automated exposure control, MA and/or KvP adjustment based on patient size and exam type or iterative reconstruction. INDICATION: Abdominal pain, enlarged pancreas. COMPARISON: Comparison is made with prior CT from 09/13/2020. FINDINGS: The lung bases are clear. The liver again is enlarged measuring 25 cm and shows diffuse low density, consistent with hepatic steatosis. No discrete liver mass is detected. Gallbladder is surgically absent. There is no biliary ductal dilatation. The pancreas and spleen are unremarkable. No adrenal mass is detected. Left kidney is unremarkable. Right kidney is surgically absent. No focal recurrence is identified. Aorta is nonaneurysmal. There is no central retroperitoneal or mesenteric lymphadenopathy. The small and large bowel loops are normal in caliber. No definite pelvic lymphadenopathy is seen. The bladder is unremarkable. The bony structures are nonacute. IMPRESSION: 1. Stable hepatomegaly and hepatic steatosis. 2. Status post right nephrectomy. No recurrent mass or abdominal or pelvic lymphadenopathy is detected. Dictated by: Dictated on workstation # [id number]
== END ==
LOC: RAD FS 09:57
PROVIDERS: ATTEND Internal Medicine Hematology & Oncology
DX: C66.1 Malignant neoplasm of right ureter (principal); K76.0 Fatty (change of) liver, not elsewhere classified; K86.89 Other specified diseases of pancreas; R16.0 Hepatomegaly, not elsewhere classified; R06.02 Shortness of breath; Z90.5 Acquired absence of kidney
CPT/HCPCS: 36415; 71046; 74177; 80053; 82728; 83540; 83550; 83615; 85025

== ENCOUNTER 2021-03-29 18:51 | Emergency (ER) | payer MEDICARE, MEDICAID ==
[~2021-03-29] VITALS: Ht 170 cm; Wt 100.2 kg
[~2021-03-29 18:51] MED LIST changes: -CATHETER FLUSH 10 ML SYR IV PRN; -HOLD METFORMIN - RECEIVED CONTRAST 20 ML VIAL IV SCH; -IOHEXOL 350 MG/ML 100 ML (OMNIPAQUE 350) VIAL IV ONE; -NS 100 ML (IVPB) BAG IV ONE
[2021-03-29] MEDS ORDERED: RT-ALBUTEROL/IPRATROPIUM 3 ML (DUONEB) VIAL INH STA (19:04)
[2021-03-29] MEDS ORDERED: NS IV 1000 ML 1,000 ML IV STA (19:04)
--- NOTE | 2021-03-29 19:20 | ED General ---
General Chief Complaint: Respiratory Problems Stated Complaint: CP,SOA Source of Information: Patient, Old Records History of Present Illness Date Seen by Provider: Mar 29, 2021 Time Seen by Provider: 18:56 Initial Comments 55 yo female presents with complaints of not feeling right. She gets light headed with standing up. She is short of breath and winded easily. She is trying to quit smoking so she is coughing more. She is out of her medicine for nebulizer. She became more anxious as the day went on and this evening called in for advice and when her symptoms persisted she came to the ED. She Has no fever, chills, nausea, vomiting, diarrhea, purulent sputum. She had a Heart Cath Mar 09 that was clear with only mild plaque build up in Tortuous LAD. She had CXR that was clear last week and CT abd/pelvis that did not show anything acute. Timing/Duration: 1-3 Hours Severity: Moderate Associated Systoms: Chest Pain, Cough; No Diaphoresis, No Fever/Chills, No Headaches, No Loss of Appetite; Malaise; No Nausea/Vomiting, No Rash, No Seizure; Shortness of Air; No Syncope; Weakness Allergies and Home Medications Allergies Coded Allergies: No Known Drug Allergies (Unverified , 03/09/21) Patient Home Medication List Home Medication List Reviewed: Yes Acetaminophen (Tylenol Extra Strength) 500 Mg Tablet, 1,000 MG PO Q6H PRN for PAIN-MILD (1-4), (Reported) Entered as Reported by: GOLDIE SMITH on 03/09/21 0912 Acetaminophen/Diphenhydramine (Tylenol Pm Ex-Strength Caplet) 1 Each Tablet, 1-2 EACH PO HS PRN for SLEEP, (Reported) Entered as Reported by: KENNY XIAO on 03/16/21 1058 Albuterol Sulfate (Proair Hfa) 1 Puff Puff, 2 PUFF IH Q4H PRN for SHORTNESS OF BREATH, (Reported) Entered as Reported by: GOLDIE SMITH on 05/24/20 1023 Benzonatate (Tessalon Perles) 100 Mg Capsule, 100 MG PO TID PRN for COUGH, (Reported) Entered as Reported by: GOLDIE SMITH on 03/09/21 0912 Colestipol HCl (Colestipol HCl) 1 Gm Tablet, 1 GM PO DAILY, (Reported) Entered as Reported by: GOLDIE SMITH on 03/09/21 0912 Escitalopram Oxalate (Escitalopram Oxalate) 20 Mg Tablet, 40 MG PO DAILY, (Reported) Entered as Reported by: GOLDIE SMITH on 05/24/20 1016 Fluticasone Propion/Salmeterol (Fluticasone-Salmeterol 250-50) 1 Each Blst.w.dev, 1 PUFF INH DAILY, (Reported) Entered as Reported by: GOLDIE SMITH on 05/24/20 1023 Gabapentin (Gabapentin) 100 Mg Capsule, 100 MG PO HS, (Reported) Entered as Reported by: GOLDIE SMITH on 05/24/20 1016 Insulin Aspart (Novolog Flexpen) 300 Units/3 Ml Solution, 25 UNITS SC WM, (Reported) Entered as Reported by: KENNY XIAO on 03/16/21 1058 Insulin Degludec (Tresiba Flextouch U-200) 200 Unit/1 Ml Insuln.pen, 126 UNITS SQ DAILY, (Reported) Entered as Reported by: GOLDIE SMITH on 03/09/21 0933 Ipratropium [place] (Atrovent Hfa) 12.9 Gm Aers, 2 PUFF IH DAILY PRN for SHORTNESS OF BREATH, (Reported) Entered as Reported by: GOLDIE SMITH on 03/09/21 0912 Loratadine (Claritin) 10 Mg Tablet, 10 MG PO DAILY, (Reported) Entered as Reported by: GOLDIE SMITH on 05/24/20 1025 Menthol (Activice) 118 Ml [place], 1 APPLIC TP UD PRN for PAIN-BREAKTHROUGH, (Reported) Entered as Reported by: KENNY XIAO on 03/16/21 1058 Metformin HCl (Metformin HCl ER) 500 Mg Tab.er.24, 1,000 MG PO 1800, (Reported) Entered as Reported by: KENNY XIAO on 03/16/21 1058 Mirabegron (Myrbetriq) 25 Mg Tab.er.24h, 25 MG PO DAILY, (Reported) Entered as Reported by: GOLDIE SMITH on 05/24/20 1016 Montelukast Sodium (Singulair) 10 Mg Tablet, 10 MG PO DAILY, (Reported) Entered as Reported by: GOLDIE SMITH on 05/24/20 1024 Nebivolol HCl (Bystolic) 10 Mg Tab, 10 MG PO DAILY, (Reported) Entered as Reported by: GOLDIE SMITH on 03/09/21 09 Olanzapine (Olanzapine) 10 Mg Tablet, 10 MG PO HS, (Reported) Entered as Reported by: JOSHUA BUITRAGO on 03/24/19 1158 Promethazine HCl (Promethazine Tablet) 25 Mg Tablet, 12.5 MG PO Q6H PRN for NAUSEA/VOMITING, (Reported) Entered as Reported by: GOLDIE SMITH on 03/09/21 0912 Roflumilast (Daliresp) 500 Mcg Tablet, 500 MCG PO DAILY, (Reported) Entered as Reported by: GOLDEI SMITH on 03/09/21 09 Semaglutide (Ozempic) 1 Mg/0.75 Ml Pen.injctr, 1 MG INJ SUNDAY, (Reported) Entered as Reported by: GOLDIE SMITH on 03/09/21 09 Simethicone (Simethicone) 180 Mg Capsule, 180 MG PO UD PRN for STOMACH UPSET, (Reported) Entered as Reported by: GOLDIE SMITH on 03/09/21 09 Tramadol HCl (Tramadol HCl) 50 Mg Tablet, 50 MG PO Q6H PRN for PAIN-MODERATE (5- 7), (Reported) Entered as Reported by: KENNY XIAO on 03/16/21 105 Ziprasidone HCl (Ziprasidone HCl) 80 Mg Capsule, 160 MG PO HS, (Reported) Entered as Reported by: KENNY XIAO on 03/16/21 105 Review of Systems Review of Systems Constitutional: see HPI EENTM: no symptoms reported Respiratory: see HPI Cardiovascular: see HPI Gastrointestinal: No nausea, No vomiting Genitourinary: frequency (chronic issue and frequently has some blood. Follows with Dr. Sahni with Urology) Musculoskeletal: no symptoms reported Skin: No rash Psychiatric/Neurological: Anxiety Past Owtapyl-Lpedid-Ktxvtz Hx Immunizations Up To Date First/Initial COVID19 Vaccinat: January 2021 Second COVID19 Vaccination [place]: January 2021 Seasonal Allergies Seasonal Allergies: No Past Medical History Surgery/Hospitalization HX: DDD with R arm radiculopathy/"future back surgery", negative heart cath 03/09/21 Surgeries: Yes Bladder Surgery, Gallbladder, Hysterectomy, Tonsillectomy Respiratory: Yes Asthma, COPD Currently Using CPAP: No Currently Using BIPAP: No Cardiac: Yes High Cholesterol, Hypertension 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 had recent axilla abscess) Recent Skin Changes Blood Disorders: Yes (HEP C) Adverse Reaction/Blood Tranf: No Family Medical History Heart Disease, Cancer, CVA, Other Conditions/Hx Physical Exam Vital Signs Vital Signs - First Documented 03/29/21 03/29/21 18:55 19:37 Temp 36.5 Pulse 103 Resp 16 B/P (MAP) 123/77 (92) Pulse Ox 96 O2 Delivery Room Air O2 Flow Rate 8.00 Capillary Refill : Height, Weight, BMI Height: 5'7.00" Weight: 224lbs. 0.0oz. 101.553531tv; 33.48 BMI Method:Actual General Appearance: Anxious, Obese Respiratory: Chest Non Tender; No No Accessory Muscle Use, No No Respiratory D istress; Decreased Breath Sounds, Rhonci; No Stridor; Wheezing Cardiovascular: Regular Rate, Rhythm, Normal Peripheral Pulses Gastrointestinal: Normal Bowel Sounds, No Pulsatile Mass, Non Tender, Soft Rectal: Deferred Extremity: Normal Capillary Refill, Normal Inspection, No Pedal Edema Neurologic/Psychiatric: Alert, Oriented x3 Skin: Normal Color, Warm/Dry Progress/Results/Core Measures Suspected Sepsis SIRS Temperature: Pulse: Respiratory Rate: Laboratory Tests 03/29/21 19:02: White Blood Count 8.6 Blood Pressure / Mean: Laboratory Tests 03/29/21 19:02: Creatinine 1.25, INR Comment 1.0, Platelet Count 254, Total Bilirubin 0.2 Results/Orders Lab Results Laboratory Tests Test 03/29/21 19:02 Range/Units White Blood Count 8.6 4.3-11.0 10^3/uL Red Blood Count 4.39 3.80-5.11 10^6/uL Hemoglobin 12.7 11.5-16.0 g/dL Hematocrit 40 35-52 % Mean Corpuscular Volume 90 80-99 fL Mean Corpuscular Hemoglobin 29 25-34 pg Mean Corpuscular Hemoglobin Concent 32 32-36 g/dL Red Cell Distribution Width 15.5 H 10.0-14.5 % Platelet Count 254 130-400 10^3/uL Mean Platelet Volume 10.4 9.0-12.2 fL Immature Granulocyte % (Auto) 0 % Neutrophils (%) (Auto) 51 42-75 % Lymphocytes (%) (Auto) 40 12-44 % Monocytes (%) (Auto) 8 0-12 % Eosinophils (%) (Auto) 1 0-10 % Basophils (%) (Auto) 1 0-10 % Neutrophils # (Auto) 4.4 1.8-7.8 X 10^3 Lymphocytes # (Auto) 3.4 1.0-4.0 X 10^3 Monocytes # (Auto) 0.7 0.0-1.0 X 10^3 Eosinophils # (Auto) 0.0 0.0-0.3 10^3/uL Basophils # (Auto) 0.1 0.0-0.1 10^3/uL Immature Granulocyte # (Auto) 0.0 0.0-0.1 10^3/uL Neutrophils % (Manual) 54 % Lymphocytes % (Manual) 21 % Monocytes % (Manual) 7 % Eosinophils % (Manual) 0 % Basophils % (Manual) 2 % Band Neutrophils 1 % Atypical Lymphocytes 15 % Blood Morphology Comment NORMAL Prothrombin Time 13.4 12.2-14.7 SEC INR Comment 1.0 0.8-1.4 Activated Partial Thromboplast Time 27 24-35 SEC Sodium Level 138 135-145 MMOL/L Potassium Level 4.0 3.6-5.0 MMOL/L Chloride Level 100 98-107 MMOL/L Carbon Dioxide Level 24 21-32 MMOL/L Anion Gap 14 5-14 MMOL/L Blood Urea Nitrogen 13 7-18 MG/DL Creatinine 1.25 0.60-1.30 MG/DL Estimat Glomerular Filtration Rate 45 BUN/Creatinine Ratio 10 Glucose Level 196 H 70-105 MG/DL Calcium Level 9.6 8.5-10.1 MG/DL Corrected Calcium 9.3 8.5-10.1 MG/DL Magnesium Level 2.0 1.6-2.4 MG/DL Total Bilirubin 0.2 0.1-1.0 MG/DL Aspartate Amino Transf (AST/SGOT) 39 H 5-34 U/L Alanine Aminotransferase (ALT/SGPT) 35 0-55 U/L Alkaline Phosphatase 104 40-136 U/L Troponin I < 0.30 <0.30 NG/ML Pro-B-Type Natriuretic Peptide 30.2 <75.0 PG/ML Total Protein 7.6 6.4-8.2 GM/DL Albumin 4.4 3.2-4.5 GM/DL Lipase 33 8-78 U/L My Orders Orders - DIANE DELCID MD Cbc With Automated Diff (03/29/21 18:59) Magnesium (03/29/21 18:59) Ekg Tracing (03/29/21 18:59) Comprehensive Metabolic Panel (03/29/21 18:59) Protime With Inr (03/29/21 18:59) Partial Thromboplastin Time (03/29/21 18:59) O2 (03/29/21 18:59) Monitor-Rhythm Ecg Trace Only (03/29/21 18:59) Ed Iv/Invasive Line Start (03/29/21 18:59) Lipase (03/29/21 18:59) Troponin I Fs (03/29/21 18:59) Probnp Fs (03/29/21 18:59) Albuterol/Ipra Inhalation Soln (Duoneb I (03/29/21 19:04) Ns Iv 1000 Ml (Sodium Chloride 0.9%) (03/29/21 19:04) Svn Small Volume Nebulizer (03/29/21 19:04) Manual Differential (03/29/21 19:02) Vital Signs/I&O 03/29/21 03/29/21 18:55 19:37 Temp 36.5 Pulse 103 Resp 16 B/P (MAP) 123/77 (92) Pulse Ox 96 96 O2 Delivery Room Air T Piece O2 Flow Rate 8.00 Capillary Refill : Progress Note #1: Progress Note check labs and ECG. Give NS 1 Liter for her tachycardia and feeling light headed with changing positions. Duoneb treatment for wheezing and shortness of breath. Progress Note #2: Progress Note labs are stable without acute significant abnormality. She has Cr 1.25 which is similar to her baseline, especially when she is not getting hydration in hospital. Negative Troponin and no acute change in CBC. improved with fluid and neb treatment. Discharge to home to push fluids and check with clinic about her symptoms. Seem to be chronic from COPD and dehydration. CXR was not done today since she just had one 03/23 and her O2 sat on room air was 97-98% on my examination of her. Pt comfortable with d/c home and anxious to go. She states she has appt with Dr. Borden and KYLE Marquez this week. ECG Initial ECG Impression Date: Mar 29, 2021 Initial ECG Impression Time: 18:56 Initial ECG Rate: 98 Initial ECG Rhythm: Normal Sinus Initial ECG Comparisson: Unchanged Comment Normal sinus rhythm with rate of [address] interval of 184 ms. Borderline left axis deviation. QT interval of 374 ms and QTc interval of [address] elevation. Appears similar to prior tracings. Departure Impression Primary Impression: Shortness of breath Additional Impressions: Chest tightness Light-headed feeling Disposition: 01 HOME, SELF-CARE Condition: Stable Departure-Patient Inst. Decision time for Depature: 19:48 Referrals: SACHIN MARQUEZ APRN (PCP) Primary Care Physician [facility]/ (Family) Primary Care Physician Patient Instructions: Shortness of Breath, Adult ED, Dizziness, Adult ED, Dizziness, Nonvertigo, (DC) Add. Discharge Instructions: Make sure you are drinking plenty of water and staying well hydrated Move slowly when you go to change positions and hold onto something when you first change positions. Wait 5-10 seconds to let your body adjust to changing position before you start moving. Check back with clinic about recurrent dizziness with standing and with your chest tightness/pain. The chest tightness/pain and shortness of breath seem to be related to your COPD and you need to make sure you follow with clinic and use breathing treatments and inhalers to help with this. All discharge instructions reviewed with patient and/or family. Voiced understanding. DIANE DELCID MD Mar 29, 2021 19:20
[2021-03-29 19:31] LABS: BASOPHILS % (AUTO) 1 % (0-10); EOSINOPHILS % (AUTO) 1 % (0-10); HEMATOCRIT 40 % (35-52); HEMOGLOBIN 12.7 g/dL (11.5-16.0); LYMPHOCYTES % (AUTO) 40 % (12-44); MEAN CORPUSCULAR HEMOGLOBIN 29 pg (25-34); MEAN CORPUSCULAR HGB CONC 32 g/dL (32-36); MEAN CORPUSCULAR VOLUME 90 fL (80-99); MEAN PLATELET VOLUME 10.4 fL (9.0-12.2); MONOCYTES % (AUTO) 8 % (0-12); NEUTROPHILS % (AUTO) 51 % (42-75); PLATELET COUNT 254 10^3/uL (130-400); WHITE BLOOD COUNT 8.6 10^3/uL (4.3-11.0)
[2021-03-29 19:32] LABS: BAND NEUTROPHILS 1 %; BASOPHILS # (AUTO) 0.1 10^3/uL (0.0-0.1); LYMPHOCYTES # (AUTO) 3.4 X 10^3 (1.0-4.0); LYMPHOCYTES % (MANUAL) 21 %; MONOCYTES # (AUTO) 0.7 X 10^3 (0.0-1.0); NEUTROPHILS # (AUTO) 4.4 X 10^3 (1.8-7.8); NEUTROPHILS % (MANUAL) 54 %
[2021-03-29 19:33] LABS: ATYPICAL LYMPHOCYTES 15 %; BASOPHILS % (MANUAL) 2 %; EOSINOPHILS % (MANUAL) 0 %; MONOCYTES % (MANUAL) 7 %; PROTHROMBIN TIME PATIENT 13.4 SEC (12.2-14.7); RBC MORPH NORMAL
[2021-03-29 19:34] LABS: ALBUMIN 4.4 GM/DL (3.2-4.5); BILIRUBIN,TOTAL 0.2 MG/DL (0.1-1.0); CALCIUM 9.6 MG/DL (8.5-10.1); CREATININE SERUM 1.25 MG/DL (0.60-1.30); TOTAL PROTEIN 7.6 GM/DL (6.4-8.2)
[2021-03-29 20:03] VITALS: BP 123/77
== END 2021-03-29 20:01 | disposition home or self-care (01) ==
LOC: EDUNIT# 18:51 → ER FS 18:52
DX: R06.02 Shortness of breath (principal); R07.89 Other chest pain; J44.9 Chronic obstructive pulmonary disease, unspecified; I10 Essential (primary) hypertension; E78.00 Pure hypercholesterolemia, unspecified; E66.9 Obesity, unspecified; F41.9 Anxiety disorder, unspecified; F31.9 Bipolar disorder, unspecified; E11.9 Type 2 diabetes mellitus without complications; Z68.33 Body mass index [BMI] 33.0-33.9, adult; Z79.899 Other long term (current) drug therapy; Z79.4 Long term (current) use of insulin
CPT/HCPCS: 36415; 80053; 83690; 83735; 83880; 84484; 85007; 85027; 85610; 85730; 93005; 93041; 94640

== ENCOUNTER → 2021-04-04 | Outpatient (CLI) | payer MEDICARE, MEDICAID ==
[2021-04-04 15:08] LABS: FREE T4 (FREE THYROXINE) 0.94 NG/DL (0.70-1.48)
== END ==
LOC: LAB FS 07:41
PROVIDERS: ATTEND Internal Medicine Cardiovascular Disease
DX: R00.2 Palpitations (principal); R07.9 Chest pain, unspecified
CPT/HCPCS: 36415; 84439; 84443; 84481

== ENCOUNTER → 2021-04-29 | Outpatient (CLI) | payer MEDICARE, MEDICAID | LOC: LAB FS 10:10 | PROVIDERS: ATTEND Orthopaedic Surgery Orthopaedic Trauma | DX: Z01.812 Encounter for preprocedural laboratory examination (principal); U07.1 COVID-19 | CPT/HCPCS: 87635 ==

== ENCOUNTER 2021-05-05 08:55 | Outpatient (CLI) | payer MEDICARE ==
[~2021-05-05] VITALS: Ht 170 cm; Wt 100.2 kg
[2021-05-05 09:10] VITALS: BP 109/56
[2021-05-05] MEDS ORDERED: EPINEPHrine INJECTION 1 MG/ML AMP IM PRN (09:15)
[2021-05-05] MEDS ORDERED: CASIRIVIMAB/IMDEVIMAB 1,200 MG in NS (IVPB) 250 ML IV ONE (09:15)
[2021-05-05] MEDS ORDERED: ONDANSETRON 4 MG/2 ML (SDV) Z0FRAN IV PRN (09:15)
[2021-05-05] MEDS ORDERED: ACETAMINOPHEN 500 MG TAB (TYLENOL) PO PRN (09:15)
[2021-05-05 10:50] VITALS: BP 125/64
== END 2021-05-05 10:50 | disposition home or self-care (01) ==
LOC: INFUSION 08:55
PROVIDERS: ATTEND Family Medicine
DX: U07.1 COVID-19 (principal)

== ENCOUNTER → 2021-05-23 | Outpatient (CLI) | payer MEDICAID, MEDICARE ==
[~2021-05-23] MED LIST changes: +RT-ALBUTEROL SULF 2.5 MG/3 ML PRE-MIX VIAL INH ONE
== END ==
LOC: RT 10:34
PROVIDERS: ATTEND Nurse Practitioner Family
DX: J44.9 Chronic obstructive pulmonary disease, unspecified (principal)
CPT/HCPCS: 94060; 94726; 94729

== ENCOUNTER → 2021-06-03 | Outpatient (CLI) | payer MEDICARE, MEDICAID ==
[~2021-06-03] MED LIST changes: -RT-ALBUTEROL SULF 2.5 MG/3 ML PRE-MIX VIAL INH ONE
== END ==
LOC: LAB FS 10:31
PROVIDERS: ATTEND Orthopaedic Surgery Orthopaedic Trauma
DX: Z01.812 Encounter for preprocedural laboratory examination (principal); Z20.822 Contact with and (suspected) exposure to COVID-19
CPT/HCPCS: 87635

== ENCOUNTER 2021-06-20 11:56 | Emergency (ER) | payer MEDICARE, MEDICAID ==
[~2021-06-20] VITALS: Ht 170 cm; Wt 75.0 kg
[~2021-06-20 11:56] MED LIST changes: +CYCL10TA25 PO; -CYCL10TA9 PO; -LISI-729 PO; +LISI5TAB20 PO
--- OUTSIDE RECORDS SUMMARY | 2021-06-20 12:02 | XMS REPORT | Clinical Summary ---
Author Author [facility] Address Unknown Phone Unavailable Care Team Providers Care Coke Drawer Name Role Phone Bonnie Jaime CUSHION INSTALLER Unavailable Brendon Benton MD Unavailable Kleber Kemp MD Unavailable Judie Rocha CUSHION INSTALLER Unavailable [phone] Julieth Saez CUSHION INSTALLER PCP Allergies No known active allergies Medications End Date Status Medication Sig Dispensed Refills Start Date Active Prgjp-1-bfid Ethyl Esters Take 2 g by 0 [...] Comments Vital Sign 120/72 09/15/2014 11:15 AM T RAIL TURNER Blood Pressure 104 09/15/2014 11:15 AM T RAIL TURNER Pulse 36.4 C (97.5 F) 09/15/2014 11:15 AM T RAIL TURNER Temperature 16 09/15/2014 11:15 AM T RAIL TURNER Respiratory Rate 99% 09/15/2014 11:15 AM T RAIL TURNER Oxygen Saturation - - Inhaled Oxygen Concentration 117 kg (258 lb) 09/15/2014 11:15 AM T RAIL TURNER Weight 170.2 cm (5' 7") 09/15/2014 11:15 AM T RAIL TURNER Height 40.41 09/15/2014 11:15 AM T RAIL TURNER Body Mass Index Plan of Treatment Health [...] Plan / Dates Group Medicare MEDICARE MEDICARE [id number] 2008-P [address] [place] [address] [facility] [address] [id number] 2012 [address] Present [address] [place] [address] Advance Directives For more information, please contact: [phone] 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 Explanation Type Date Recorded Advance Directives and Living Will Power of Carroting Machine Operator Date Inactivated Comments Code Status Date Activated 04/23/2014 11:18 AM Full Code 04/22/2014 7:15 PM 04/22/2014 7:15 PM Full Code 04/22/2014 4:39 PM 04/20/2014 11:17 AM Full Code 04/19/2014 6:58 PM Care Teams Start Date End Date Coke Drawer Relationship Specialty 09/03/14 Julieth Saez, CUSHION INSTALLER PCP - General 12/23/13 Bonnie Jaime, CUSHION INSTALLER Pulmonology [address] [facility] ([facility]) [address] [place] [address] [email or web address] 02/24/14 Brendon Benton MD Endocrinolog y 03/11/14 Kleber Kemp MD Pulmonology [address] [facility] ([facility]) [address] [place] [address] 03/27/14 Judie Rocha, Endocrinolog CUSHION INSTALLER y [address] [place] [address]
--- NOTE | 2021-06-20 12:06 | ED General ---
General Chief Complaint: Glucose Problems Stated Complaint: ELEV GLUCOSE History of Present Illness Date Seen by Provider: Jun 20, 2021 Time Seen by Provider: 12:06 Initial Comments Patient presenting to emergency department for evaluation of 2 primary complaints. She says for the past 2 days she has had cough congestion and feeling slightly more tired and decided to check her blood sugar today since she was not feeling well and it was over 500. She said this scared her very much and she wanted to come to the emergency department to be evaluated. I asked her why her blood sugars are so elevated and she said she was unsure but then she was asked if she has been compliant with her Tresiba NovoLog and Ozempic and she says she has not done any of her diabetes medications except for her Metformin over the past 2 months. I asked her why she has not taken her diabetes medications and she says she has felt well and she did not see the need for her to be on blood sugar medications. Patient says the cough is nonproductive and she has had no measured fevers. She says she can get an achy sensation throughout her entire body when she coughs but no nausea vomiting fevers chills diarrhea constipation dysuria hematuria or rash. She is in no acute distress but is slightly tachycardic at 105 bpm. Allergies and Home Medications Allergies Coded Allergies: diphenhydramine (Unverified Allergy, Unknown, 05/05/21) Patient Home Medication List Home Medication List Reviewed: Yes Acetaminophen (Tylenol Extra Strength) 500 Mg Tablet, 1,000 MG PO Q6H PRN for PAIN-MILD (1-4), (Reported) Entered as Reported by: GOLDIE SMITH on 03/09/21 0912 Acetaminophen/Diphenhydramine (Tylenol Pm Ex-Strength Caplet) 1 Each Tablet, 1-2 EACH PO HS PRN for SLEEP, (Reported) Entered as Reported by: KENNY XIAO on 03/16/21 1058 Albuterol Sulfate (Proair Hfa) 1 Puff Puff, 2 PUFF IH Q4H PRN for SHORTNESS OF BREATH, (Reported) Entered as Reported by: GOLDIE SMITH on 05/24/20 1023 Benzonatate (Tessalon Perles) 100 Mg Capsule, 100 MG PO TID PRN for COUGH, (Reported) Entered as Reported by: GOLDIE SMITH on 03/09/21 0912 Colestipol HCl (Colestipol HCl) 1 Gm Tablet, 1 GM PO DAILY, (Reported) Entered as Reported by: GOLDIE SMITH on 03/09/21 09 Escitalopram Oxalate (Escitalopram Oxalate) 20 Mg Tablet, 40 MG PO DAILY, (Reported) Entered as Reported by: GOLDIE SMITH on 05/24/20 1016 Fluticasone Propion/Salmeterol (Fluticasone-Salmeterol 250-50) 1 Each Blst.w.dev, 1 PUFF INH DAILY, (Reported) Entered as Reported by: GOLDIE SMITH on 05/24/20 1023 Gabapentin (Gabapentin) 100 Mg Capsule, 100 MG PO HS, (Reported) Entered as Reported by: GOLDIE SMITH on 05/24/20 1016 Insulin Aspart (Novolog Flexpen) 300 Units/3 Ml Solution, 25 UNITS SC WM, (Reported) Entered as Reported by: KENNY XIAO on 03/16/21 1058 Insulin Degludec (Tresiba Flextouch U-200) 200 Unit/1 Ml Insuln.pen, 126 UNITS SQ DAILY, (Reported) Entered as Reported by: GOLDIE SMITH on 03/09/21 0933 Ipratropium [place] (Atrovent Hfa) 12.9 Gm Aers, 2 PUFF IH DAILY PRN for SHORTNESS OF BREATH, (Reported) Entered as Reported by: GOLDIE SMITH on 03/09/21 0912 Loratadine (Claritin) 10 Mg Tablet, 10 MG PO DAILY, (Reported) Entered as Reported by: GOLDIE SMITH on 05/24/20 1025 Menthol (Activice) 118 Ml [place], 1 APPLIC TP UD PRN for PAIN-BREAKTHROUGH, (Reported) Entered as Reported by: KENNY XIAO on 03/16/21 1058 Metformin HCl (Metformin HCl ER) 500 Mg Tab.er.24, 1,000 MG PO 1800, (Reported) Entered as Reported by: KENNY XIAO on 03/16/21 1058 Mirabegron (Myrbetriq) 25 Mg Tab.er.24h, 25 MG PO DAILY, (Reported) Entered as Reported by: GOLDIE SMITH on 05/24/20 1016 Montelukast Sodium (Singulair) 10 Mg Tablet, 10 MG PO DAILY, (Reported) Entered as Reported by: GOLDIE SMITH on 05/24/20 1024 Nebivolol HCl (Bystolic) 10 Mg Tab, 10 MG PO DAILY, (Reported) Entered as Reported by: GOLDIE SMITH on 03/09/21 09 Olanzapine (Olanzapine) 10 Mg Tablet, 10 MG PO HS, (Reported) Entered as Reported by: JOSHUA BUITRAGO on 03/24/19 1158 Promethazine HCl (Promethazine Tablet) 25 Mg Tablet, 12.5 MG PO Q6H PRN for N AUSEA/VOMITING, (Reported) Entered as Reported by: GOLDIE SMITH on 03/09/21 09 Roflumilast (Daliresp) 500 Mcg Tablet, 500 MCG PO DAILY, (Reported) Entered as Reported by: GOLDIE SMITH on 03/09/21911 Semaglutide (Ozempic) 1 Mg/0.75 Ml Pen.injctr, 1 MG INJ SUNDAY, (Reported) Entered as Reported by: GOLDIE SMITH on 03/09/21 09 Simethicone (Simethicone) 180 Mg Capsule, 180 MG PO UD PRN for STOMACH UPSET, (Reported) Entered as Reported by: GOLDIE SMTIH on 03/09/21911 Tramadol HCl (Tramadol HCl) 50 Mg Tablet, 50 MG PO Q6H PRN for PAIN-MODERATE (5- 7), (Reported) Entered as Reported by: KENNY XIAO on 03/16/21 105 Ziprasidone HCl (Ziprasidone HCl) 80 Mg Capsule, 160 MG PO HS, (Reported) Entered as Reported by: KENNY XIAO on 03/16/21 105 Review of Systems Review of Systems Constitutional: no symptoms reported EENTM: nose congestion Respiratory: cough Cardiovascular: no symptoms reported Gastrointestinal: no symptoms reported Genitourinary: no symptoms reported Musculoskeletal: no symptoms reported Skin: no symptoms reported Psychiatric/Neurological: No Symptoms Reported All Other Systems Reviewed Negative Unless Noted: Yes Past Tkiymus-Rkvhkh-Mkxwol Hx Immunizations Up To Date First/Initial COVID19 Vaccinat: OCTOBER 2020 Second COVID19 Vaccination [place]: January 2021 Third COVID19 Vaccination Date: January 2021 Seasonal Allergies Seasonal Allergies: No Past Medical History Surgery/Hospitalization HX: DDD with R arm radiculopathy/"future back surgery", negative heart cath 03/09/21 Surgeries: Yes Bladder Surgery, Gallbladder, Hysterectomy, Tonsillectomy Respiratory: Yes Asthma, COPD Currently Using CPAP: No Currently Using BIPAP: No Cardiac: Yes High Cholesterol, Hypertension 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 had recent axilla abscess) Recent Skin Changes Blood Disorders: Yes (HEP C) Adverse Reaction/Blood Tranf: No Family Medical History Heart Disease, Cancer, CVA, Other Conditions/Hx Physical Exam Vital Signs Capillary Refill : Height, Weight, BMI Height: 5'7.00" Weight: 224lbs. 0.0oz. 101.127261ep; 34.00 BMI Method:Actual General Appearance: No Apparent Distress, WD/WN HEENT: PERRL/EOMI Neck: Supple Respiratory: Lungs Clear, No Respiratory Distress Cardiovascular: Tachycardia Gastrointestinal: Non Tender, Soft Back: Normal Inspection Extremity: Normal Capillary Refill Neurologic/Psychiatric: Alert, Oriented x3 Skin: Warm/Dry Progress/Results/Core Measures Suspected Sepsis SIRS Temperature: Pulse: Respiratory Rate: Laboratory Tests 06/20/21 12:05: White Blood Count 11.0 Blood Pressure / Mean: Laboratory Tests 06/20/21 12:05: Creatinine 1.01, Platelet Count 220, Total Bilirubin 0.4 Results/Orders Lab Results Laboratory Tests Test 06/20/21 12:00 06/20/21 12:05 06/20/21 12:20 Range/Units Glucometer 510 *H 70-110 MG/DL White Blood Count 11.0 4.3-11.0 10^3/uL Red Blood Count 3.93 3.80-5.11 10^6/uL Hemoglobin 11.4 L 11.5-16.0 g/dL Hematocrit 35 35-52 % Mean Corpuscular Volume 90 80-99 fL Mean Corpuscular Hemoglobin 29 25-34 pg Mean Corpuscular Hemoglobin Concent 32 32-36 g/dL Red Cell Distribution Width 14.4 10.0-14.5 % Platelet Count 220 130-400 10^3/uL Mean Platelet Volume 10.7 9.0-12.2 fL Neutrophils (%) (Auto) 74 42-75 % Lymphocytes (%) (Auto) 19 12-44 % Monocytes (%) (Auto) 5 0-12 % Eosinophils (%) (Auto) 2 0-10 % Basophils (%) (Auto) 1 0-10 % Neutrophils # (Auto) 8.2 H 1.8-7.8 X 10^3 Lymphocytes # (Auto) 2.0 1.0-4.0 X 10^3 Monocytes # (Auto) 0.5 0.0-1.0 X 10^3 Eosinophils # (Auto) 0.2 0.0-0.3 10^3/uL Basophils # (Auto) 0.1 0.0-0.1 10^3/uL Sodium Level 132 L 135-145 MMOL/L Potassium Level 3.3 L 3.6-5.0 MMOL/L Chloride Level 95 L 98-107 MMOL/L Carbon Dioxide Level 23 21-32 MMOL/L Anion Gap 14 5-14 MMOL/L Blood Urea Nitrogen 8 7-18 MG/DL Creatinine 1.01 0.60-1.30 MG/DL Estimat Glomerular Filtration Rate 57 BUN/Creatinine Ratio 8 Glucose Level 459 *H 70-105 MG/DL Calcium Level 9.4 8.5-10.1 MG/DL Corrected Calcium 9.4 8.5-10.1 MG/DL Total Bilirubin 0.4 0.1-1.0 MG/DL Aspartate Amino Transf (AST/SGOT) 33 5-34 U/L Alanine Aminotransferase (ALT/SGPT) 52 0-55 U/L Alkaline Phosphatase 146 H 40-136 U/L Total Protein 7.6 6.4-8.2 GM/DL Albumin 4.0 3.2-4.5 GM/DL Urine Color YELLOW Urine Clarity CLEAR Urine pH 6.0 5-9 Urine Specific [place] <=1.005 1.016-1.022 Urine Protein NEGATIVE NEGATIVE Urine Glucose (UA) 3+ H NEGATIVE Urine Ketones NEGATIVE NEGATIVE Urine Nitrite NEGATIVE NEGATIVE Urine Bilirubin NEGATIVE NEGATIVE Urine Urobilinogen 0.2 < = 1.0 MG/DL Urine Leukocyte Esterase NEGATIVE NEGATIVE Urine RBC (Auto) TRACE-I H NEGATIVE Urine RBC RARE /HPF Urine WBC 0-2 /HPF Urine Squamous Epithelial Cells 2-5 /HPF Urine Crystals NONE /LPF Urine Bacteria NEGATIVE /HPF Urine Casts NONE /LPF Urine Mucus NEGATIVE /LPF Urine Yeast FEW H /HPF Urine Culture Indicated NO My Orders Orders - POLA WEBB DO Iv/Invasive Line Insertion .IV start (06/20/21 12:06) Cbc With Automated Diff (06/20/21 12:06) Comprehensive Metabolic Panel (06/20/21 12:06) Ua Culture If Indicated (06/20/21 12:06) Chest 1 View Ap/Pa Only (06/20/21 12:06) Ns Iv 1000 Ml (Sodium Chloride 0.9%) (06/20/21 12:15) Insulin (Regular) Human (Novolin R (Per (06/20/21 12:15) Potassium Chloride (Tablet) (K Dur Table (06/20/21 13:00) Piperacillin Sodium/Tazobactam (Zosyn Vi (06/20/21 13:00) Glucose (06/20/21 12:59) Medications Given in ED Current Medications Medications Dose Ordered Sig/Yoselyn Route Start Time Stop Time Status Last Admin Dose Admin Insulin Human Regular 20 unit ONCE ONCE IV 06/20/21 12:15 06/20/21 12:16 DC 06/20/21 12:27 20 UNIT Vital Signs/I&O Capillary Refill : Progress Note : Progress Note Patient has upper respiratory complaints I will check a chest x-ray in addition to basic labs for hyperglycemia treat her with IV fluids oral fluids and IV insulin. Patient does have findings of a left lower lobe infiltrate on her x-ray so she will be treated with antibiotics for pneumonia. Patient has been fully vaccinated against the Covid virus. Patient has a normal oxygen saturation and her heart rate improved to 88 after administration of IV fluids and IV insulin. Given patient appears well with normal vital signs and is expressing desire to be treated as an outpatient I will discharge her in stable condition. I educated her on why is important to take her medications as prescribed especially her diabetes medications as she can suffer life-threatening consequences for not being compliant with her medications. I will prescribe her Augmentin for an antibiotic told to drink plenty of fluids and take in potassium as well. I told to follow with her primary care provider within 2 days for recheck and come back to emergency department sooner with worsening pain sh ortness of breath or other general concerns. Patient aware and agreeable with plan and verbalized understanding of the above instructions. Departure Impression Primary Impression: Hyperglycemia Additional Impressions: CAP (community acquired pneumonia) Qualified Codes: J18.9 - Pneumonia, unspecified organism Hypokalemia Disposition: HOME, SELF-CARE Condition: Stable Departure-Patient Inst. Referrals: SACHIN MARQUEZ APRN (PCP) Primary Care Physician [facility] (Family) Primary Care Physician Patient Instructions: High Blood Sugar, Adult ED, Community-Acquired Pneumonia in Adults Add. Discharge Instructions: Take all your medications as prescribed, especially your diabetes medications. Follow with your PCP in 2 days. Come back to the ED sooner with worsening pain, soa, or other general concerns. Thank you! All discharge instructions reviewed with patient and/or family. Voiced under standing. Scripts Amoxicillin/Potassium Clav (Augmentin 875-125 Tablet) 1 Each Tablet 1 EACH PO BID, #14 TAB 0 Refills Prov: POLA WEBB DO 06/20/21 POLA WEBB DO Jun 20, 2021 12:06
[2021-06-20] MEDS ORDERED: NS IV 1000 ML 1,000 ML IV SCH (12:15)
[2021-06-20] MEDS ORDERED: inSUlin (REGULAR) HUMAN 1 UNIT/0.01 ML (CHARGE PER UNIT) IV ONE (12:15)
[2021-06-20 12:29] LABS: BILIRUBIN,URINE NEGATIVE (NEGATIVE); CLARITY,URINE CLEAR; COLOR,URINE YELLOW; GLUCOSE, URINE (UA) 3+ (NEGATIVE); KETONES,URINE NEGATIVE (NEGATIVE); LEUKOCYTE ESTERASE ,URINE NEGATIVE (NEGATIVE); NITRITE,URINE NEGATIVE (NEGATIVE); PROTEIN,URINE NEGATIVE (NEGATIVE)
--- NOTE | 2021-06-20 12:29 | Diagnostic Imaging Report ---
INDICATION: Cough for two days. TIME OF EXAM: 12:16 p.m. COMPARISON: Correlation is made with prior chest of 03/14/2021. FINDINGS: Left chest wall port has tip overlying the SVC. Heart size is normal. There is some patchy-appearing infiltrate in the left infrahilar and left basilar region suggestive of pneumonia. Right lung is clear. There is no effusion or pneumothorax. Postop changes in the lower cervical spine are noted. IMPRESSION: Patchy infiltrates in the left base suggestive of pneumonia. Dictated by: Dictated on workstation # [id number]
[2021-06-20 12:30] LABS: HEMATOCRIT 35 % (35-52); HEMOGLOBIN 11.4 g/dL (11.5-16.0); MEAN CORPUSCULAR HEMOGLOBIN 29 pg (25-34); MEAN CORPUSCULAR VOLUME 90 fL (80-99)
[2021-06-20 12:31] LABS: BASOPHILS # (AUTO) 0.1 10^3/uL (0.0-0.1); BASOPHILS % (AUTO) 1 % (0-10); EOSINOPHILS # (AUTO) 0.2 10^3/uL (0.0-0.3); EOSINOPHILS % (AUTO) 2 % (0-10); LYMPHOCYTES % (AUTO) 19 % (12-44); MEAN CORPUSCULAR HGB CONC 32 g/dL (32-36); MEAN PLATELET VOLUME 10.7 fL (9.0-12.2); MONOCYTES # (AUTO) 0.5 X 10^3 (0.0-1.0); MONOCYTES % (AUTO) 5 % (0-12); NEUTROPHILS # (AUTO) 8.2 X 10^3 (1.8-7.8); NEUTROPHILS % (AUTO) 74 % (42-75); PLATELET COUNT 220 10^3/uL (130-400)
[2021-06-20 12:36] LABS: BACTERIA,URINE NEGATIVE /HPF; RBC,URINE RARE /HPF; WBC,URINE 0-2 /HPF
[2021-06-20 12:37] LABS: YEAST,URINE FEW /HPF
[2021-06-20 12:44] LABS: BILIRUBIN,TOTAL 0.4 MG/DL (0.1-1.0); CALCIUM 9.4 MG/DL (8.5-10.1); CREATININE SERUM 1.01 MG/DL (0.60-1.30); POTASSIUM 3.3 MMOL/L (3.6-5.0)
[2021-06-20 12:45] LABS: TOTAL PROTEIN 7.6 GM/DL (6.4-8.2)
[2021-06-20] MEDS ORDERED: KCL 20 MEQ TAB (K-DUR) PO ONE (13:00)
[2021-06-20] MEDS ORDERED: PIPERACILLIN SODIUM/TAZOBACTAM 4.5 GM in NS (IVPB) 100 ML IV ONE (13:00)
[2021-06-20] MEDS ORDERED: AMOX-358 PO (13:03)
[2021-06-20] MEDS ORDERED: FLUC150T PO (13:30)
[2021-06-20 14:27] VITALS: BP 128/82
== END 2021-06-20 14:15 | disposition home or self-care (01) ==
LOC: ER FS 11:57
DX: E11.65 Type 2 diabetes mellitus with hyperglycemia (principal); J18.9 Pneumonia, unspecified organism; E87.6 Hypokalemia; R00.0 Tachycardia, unspecified; J44.9 Chronic obstructive pulmonary disease, unspecified; I10 Essential (primary) hypertension; E78.00 Pure hypercholesterolemia, unspecified; F41.9 Anxiety disorder, unspecified; F31.9 Bipolar disorder, unspecified; Z79.4 Long term (current) use of insulin; Z79.899 Other long term (current) drug therapy
CPT/HCPCS: 36415; 71045; 80053; 81000; 82947; 85025

== ENCOUNTER 2021-06-21 20:35 | Emergency (ER) | payer MEDICARE, MEDICAID ==
[~2021-06-21 20:35] MED LIST changes: +FLUC150T PO
[2021-06-21 21:00] VITALS: BP 116/79
--- NOTE | 2021-06-21 21:02 | ED Respiratory ---
General Chief Complaint: Respiratory Problems Stated Complaint: SOB Nursing Triage Note: Pt brought in by ems with complaints of shortness of breath. Pt was diagnosed with pneumonia yesterday and was prescribed Augmentin. Pt was given a duoneb en route to the ED Source: patient, EMS Exam Limitations: no limitations History of Present Illness Date Seen by Provider: Jun 21, 2021 Time Seen by Provider: 20:56 Initial Comments Patient is a 56-year-old smoker with history of COPD who was diagnosed in the emergency department yesterday for pneumonia. She reports continued shortness of breath dizziness upon standing. Patient prescribed amoxicillin. She has had 2 doses thus far. She contacted EMS today was noted to have decreased breath sounds. A breathing treatment was given. Patient's initial oxygen saturation was greater than 90%, she remained throughout transport. She denies fever chills, nausea vomiting sweats. No leg pain or swelling. No other acute symptoms or complaints Allergies and Home Medications Allergies Coded Allergies: diphenhydramine (Unverified Allergy, Unknown, 05/05/21) Patient Home Medication List Home Medication List Reviewed: Yes Acetaminophen (Tylenol Extra Strength) 500 Mg Tablet, 1,000 MG PO Q6H PRN for PAIN-MILD (1-4), (Reported) Entered as Reported by: GOLDIE SMITH on 03/09/21 0912 Acetaminophen/Diphenhydramine (Tylenol Pm Ex-Strength Caplet) 1 Each Tablet, 1-2 EACH PO HS PRN for SLEEP, (Reported) Entered as Reported by: KENNY XIAO on 03/16/21 1058 Albuterol Sulfate (Proair Hfa) 1 Puff Puff, 2 PUFF IH Q4H PRN for SHORTNESS OF BREATH, (Reported) Entered as Reported by: GOLDIE SMITH on 05/24/20 1023 Amoxicillin/Potassium Clav (Augmentin 875-125 Tablet) 1 Each Tablet, 1 EACH PO BID Prescribed by: POLA WEBB on 06/20/21 1303 Benzonatate (Tessalon Perles) 100 Mg Capsule, 100 MG PO TID PRN for COUGH, (Reported) Entered as Reported by: GOLDIE SMITH on 03/09/21 0912 Colestipol HCl (Colestipol HCl) 1 Gm Tablet, 1 GM PO DAILY, (Reported) Entered as Reported by: GOLDIE SMITH on 03/09/21 0912 Escitalopram Oxalate (Escitalopram Oxalate) 20 Mg Tablet, 40 MG PO DAILY, (Reported) Entered as Reported by: GOLDIE SMITH on 05/24/20 1016 Fluconazole (Diflucan) 150 Mg Tablet, 150 MG PO ONCE PRN for one today and one in 7 days Prescribed by: POLA WEBB on 06/20/21 1330 Fluticasone Propion/Salmeterol (Fluticasone-Salmeterol 250-50) 1 Each Blst.w.dev, 1 PUFF INH DAILY, (Reported) Entered as Reported by: GOLDIE SMITH on 05/24/20 1023 Gabapentin (Gabapentin) 100 Mg Capsule, 100 MG PO HS, (Reported) Entered as Reported by: GOLDIE SMITH on 05/24/20 1016 Insulin Aspart (Novolog Flexpen) 300 Units/3 Ml Solution, 25 UNITS SC WM, (Reported) Entered as Reported by: KENNY XIAO on 03/16/21 1058 Insulin Degludec (Tresiba Flextouch U-200) 200 Unit/1 Ml Insuln.pen, 126 UNITS SQ DAILY, (Reported) Entered as Reported by: GOLDIE SMITH on 03/09/21 0933 Ipratropium [place] (Atrovent Hfa) 12.9 Gm Aers, 2 PUFF IH DAILY PRN for SHORTNESS OF BREATH, (Reported) Entered as Reported by: GOLDIE SMITH on 03/09/21 0912 Loratadine (Claritin) 10 Mg Tablet, 10 MG PO DAILY, (Reported) Entered as Reported by: GOLDIE SMITH on 05/24/20 1025 Menthol (Activice) 118 Ml [place], 1 APPLIC TP UD PRN for PAIN-BREAKTHROUGH, (Reported) Entered as Reported by: KENNY XIAO on 03/16/21 1058 Metformin HCl (Metformin HCl ER) 500 Mg Tab.er.24, 1,000 MG PO 1800, (Reported) Entered as Reported by: KENNY XIAO on 03/16/21 1058 Mirabegron (Myrbetriq) 25 Mg Tab.er.24h, 25 MG PO DAILY, (Reported) Entered as Reported by: GOLDIE SMITH on 05/24/20 1016 Montelukast Sodium (Singulair) 10 Mg Tablet, 10 MG PO DAILY, (Reported) Entered as Reported by: GOLDIE SMITH on 05/24/20 1024 Nebivolol HCl (Bystolic) 10 Mg Tab, 10 MG PO DAILY, (Reported) Entered as Reported by: GOLDIE SMITH on 03/09/21 09 Olanzapine (Olanzapine) 10 Mg Tablet, 10 MG PO HS, (Reported) Entered as Reported by: JOSHUA BUITRAGO on 03/24/19 1158 Promethazine HCl (Promethazine Tablet) 25 Mg Tablet, 12.5 MG PO Q6H PRN for NAUSEA/VOMITING, (Reported) Entered as Reported by: GOLDIE SMITH on 03/09/21 09 Roflumilast (Daliresp) 500 Mcg Tablet, 500 MCG PO DAILY, (Reported) Entered as Reported by: GOLDIE SMITH on 03/09/21 09 Semaglutide (Ozempic) 1 Mg/0.75 Ml Pen.injctr, 1 MG INJ SUNDAY, (Reported) Entered as Reported by: GOLDIE SMITH on 03/09/21 09 Simethicone (Simethicone) 180 Mg Capsule, 180 MG PO UD PRN for STOMACH UPSET, (Reported) Entered as Reported by: GOLDIE SMITH on 03/09/21 09 Tramadol HCl (Tramadol HCl) 50 Mg Tablet, 50 MG PO Q6H PRN for PAIN-MODERATE (5- 7), (Reported) Entered as Reported by: KENNY XIAO on 03/16/21 1058 Ziprasidone HCl (Ziprasidone HCl) 80 Mg Capsule, 160 MG PO HS, (Reported) Entered as Reported by: KENNY XIAO on 03/16/21 1058 Review of Systems Review of Systems Constitutional: see HPI EENTM: see HPI Respiratory: see HPI Cardiovascular: see HPI Gastrointestinal: see HPI Genitourinary: see HPI Musculoskeletal: see HPI Skin: see HPI Psychiatric/Neurological: See HPI Hematologic/Lymphatic: See HPI Immunological/Allergic: see HPI All Other Systems Reviewed Negative Unless Noted: Yes Past Ckupqzr-Tjxgfd-Pverrr Hx Patient Social History Tobacco Use?: Yes Tobacco type used: Cigarettes Smoking Status: Current Everyday Smoker Use of E-Cig and/or Vaping dev: No Substance use?: Yes Substance type: Marijuana Alcohol Use?: No Immunizations Up To Date First/Initial COVID19 Vaccinat: OCTOBER 2020 Second COVID19 Vaccination [place]: January 2021 Third COVID19 Vaccination Date: January 2021 Seasonal Allergies Seasonal Allergies: No Past Medical History Surgery/Hospitalization HX: DDD with R arm radiculopathy/"future back surgery", negative heart cath 03/09/21 Surgeries: Yes Bladder Surgery, Gallbladder, Hysterectomy, Tonsillectomy Respiratory: Yes Asthma, COPD Currently Using CPAP: No Currently Using BIPAP: No Cardiac: Yes High Cholesterol, Hypertension 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 had recent axilla abscess) Recent Skin Changes Blood Disorders: Yes (HEP C) Adverse Reaction/Blood Tranf: No Family Medical History Heart Disease, Cancer, CVA, Other Conditions/Hx Physical Exam Vital Signs - First Documented 06/21/21 20:40 Temp 36.8 Pulse 96 Resp 20 B/P (MAP) 116/79 (91) Pulse Ox 94 O2 Delivery Room Air Capillary Refill : Less Than 3 Seconds Height: 5'7.00" Weight: 224lbs. 0.0oz. 101.144485rm; 25.00 BMI Method:Actual General Appearance: WD/WN, no apparent distress Eyes: Bilateral Eye Normal Inspection, Bilateral Eye PERRL, Bilateral Eye EOMI HEENT: PERRL/EOMI, normal ENT inspection Neck: other (Patient with collar on board) Respiratory: decreased breath sounds, rhonchi Cardiovascular: regular rate, rhythm Gastrointestinal: non tender, soft Neurologic/Psychiatric: alert, oriented x 3 Focused Exam Sepsis Stage: Ruled Out Progress/Results/Core Measures Suspected Sepsis SIRS Temperature: Pulse: 96 Respiratory Rate: 20 Blood Pressure 116 /79 Mean: 91 Results/Orders Vital Signs/I&O 12/7/21 12/7/21 20:40 21:00 Temp 36.8 36.8 Pulse 96 96 Resp 20 20 B/P (MAP) 116/79 (91) 116/79 Pulse Ox 94 94 O2 Delivery Room Air Room Air Capillary Refill : Less Than 3 Seconds Blood Pressure Mean: 91 Departure Communication (Admissions) Exam consistent with pneumonia without respiratory compromise. Recommend therapeutic and supportive care with PCP follow-up. Return precautions reviewed. Impression Primary Impression: CAP (community acquired pneumonia) Disposition: HOME, SELF-CARE Condition: Stable Departure-Patient Inst. Decision time for Depature: 21:03 Referrals: SACHIN MARQUEZ APRN (PCP) Primary Care Physician [facility] (Family) Primary Care Physician Patient Instructions: Pneumonia in Adults Add. Discharge Instructions: Please discontinue smoking and continue current antibiotics and albuterol inhaler use. Follow-up with your PCP in 3 to 5 days. All discharge instructions reviewed with patient and/or family. Voiced understanding. JAZIEL WONG DO Jun 21, 2021 21:01
== END 2021-06-21 21:08 | disposition home or self-care (01) ==
LOC: EDUNIT# 20:35 → ER FS 20:41
DX: J18.9 Pneumonia, unspecified organism (principal); J44.9 Chronic obstructive pulmonary disease, unspecified; I10 Essential (primary) hypertension; E78.00 Pure hypercholesterolemia, unspecified; E11.9 Type 2 diabetes mellitus without complications; F41.9 Anxiety disorder, unspecified; F31.9 Bipolar disorder, unspecified; F17.210 Nicotine dependence, cigarettes, uncomplicated; Z79.4 Long term (current) use of insulin; Z79.899 Other long term (current) drug therapy
CPT/HCPCS: 99283

== ENCOUNTER 2021-06-25 11:37 | Emergency (ER) | payer MEDICARE, MEDICAID ==
[2021-06-25] MEDS ORDERED: NS IV 500 ML 500 ML IV STA (11:49)
[2021-06-25] MEDS ORDERED: inSUlin (REGULAR) HUMAN 1 UNIT/0.01 ML (CHARGE PER UNIT) IV STA (11:49)
--- NOTE | 2021-06-25 11:52 | ED General ---
General Chief Complaint: Glucose Problems Stated Complaint: ELEV GLUCOSE Source of Information: Patient, Old Records History of Present Illness Date Seen by Provider: Jun 25, 2021 Time Seen by Provider: 11:42 Initial Comments 56-year-old female presenting with concern for elevated blood sugar. She was recently seen in the emergency department on the sixth for elevated sugar and shortness of breath. At that time she was diagnosed with pneumonia. She was started on antibiotics and given extra insulin and fluids. She had been doing better and has been on her antibiotics. She states that she has been trying to be more strict with her diabetic regiment and called for a refill on her Ozempic today. Because of her sugar being elevated today she was concerned it may be something more going on. She was unaware that having an infection alone could cause her to have elevated blood sugars. She had no symptoms of elevated blood sugar other than chronic dry mouth. She denies nausea, vomiting, abdominal pain, pain with urination. Associated Systoms: Cough; No Diaphoresis, No Fever/Chills, No Headaches, No Loss of Appetite, No Malaise, No Nausea/Vomiting, No Seizure; Shortness of Air (chronic); No Syncope, No Weakness Allergies and Home Medications Allergies Coded Allergies: diphenhydramine (Unverified Allergy, Unknown, 05/05/21) Patient Home Medication List Home Medication List Reviewed: Yes Acetaminophen (Tylenol Extra Strength) 500 Mg Tablet, 1,000 MG PO Q6H PRN for PAIN-MILD (1-4), (Reported) Entered as Reported by: GOLDIE SMITH on 03/09/21 0912 Acetaminophen/Diphenhydramine (Tylenol Pm Ex-Strength Caplet) 1 Each Tablet, 1-2 EACH PO HS PRN for SLEEP, (Reported) Entered as Reported by: KENNY XIAO on 03/16/21 1058 Albuterol Sulfate (Proair Hfa) 1 Puff Puff, 2 PUFF IH Q4H PRN for SHORTNESS OF BREATH, (Reported) Entered as Reported by: GOLDIE SMITH on 05/24/20 1023 Amoxicillin/Potassium Clav (Augmentin 875-125 Tablet) 1 Each Tablet, 1 EACH PO BID Prescribed by: POLA WEBB on 06/20/21 1303 Benzonatate (Tessalon Perles) 100 Mg Capsule, 100 MG PO TID PRN for COUGH, (Reported) Entered as Reported by: GOLDIE SMITH on 03/09/21 0912 Colestipol HCl (Colestipol HCl) 1 Gm Tablet, 1 GM PO DAILY, (Reported) Entered as Reported by: GOLDIE SMITH on 03/09/21 09 Escitalopram Oxalate (Escitalopram Oxalate) 20 Mg Tablet, 40 MG PO DAILY, (Reported) Entered as Reported by: GOLDIE SMITH on 05/24/20 1016 Fluconazole (Diflucan) 150 Mg Tablet, 150 MG PO ONCE PRN for one today and one in 7 days Prescribed by: POLA WEBB on 06/20/21 1330 Fluticasone Propion/Salmeterol (Fluticasone-Salmeterol 250-50) 1 Each Blst.w.dev, 1 PUFF INH DAILY, (Reported) Entered as Reported by: GOLDIE SMITH on 05/24/20 1023 Gabapentin (Gabapentin) 100 Mg Capsule, 100 MG PO HS, (Reported) Entered as Reported by: GOLDIE SMITH on 05/24/20 1016 Insulin Aspart (Novolog Flexpen) 300 Units/3 Ml Solution, 25 UNITS SC WM, (Reported) Entered as Reported by: KENNY XIAO on 03/16/21 1058 Insulin Degludec (Tresiba Flextouch U-200) 200 Unit/1 Ml Insuln.pen, 126 UNITS SQ DAILY, (Reported) Entered as Reported by: GOLDIE SMITH on 03/09/21 0933 Ipratropium [place] (Atrovent Hfa) 12.9 Gm Aers, 2 PUFF IH DAILY PRN for SHORTNESS OF BREATH, (Reported) Entered as Reported by: GOLDIE SMITH on 03/09/21 09 Loratadine (Claritin) 10 Mg Tablet, 10 MG PO DAILY, (Reported) Entered as Reported by: GOLDIE SMITH on 05/24/20 1025 Menthol (Activice) 118 Ml [place], 1 APPLIC TP UD PRN for PAIN-BREAKTHROUGH, (Reported) Entered as Reported by: KENNY XIAO on 03/16/21 1058 Metformin HCl (Metformin HCl ER) 500 Mg Tab.er.24, 1,000 MG PO 1800, (Reported) Entered as Reported by: KENNY XIAO on 03/16/21 1058 Mirabegron (Myrbetriq) 25 Mg Tab.er.24h, 25 MG PO DAILY, (Reported) Entered as Reported by: GOLDIE SMITH on 05/24/20 1016 Montelukast Sodium (Singulair) 10 Mg Tablet, 10 MG PO DAILY, (Reported) Entered as Reported by: GOLDIE SMITH on 05/24/20 1024 Nebivolol HCl (Bystolic) 10 Mg Tab, 10 MG PO DAILY, (Reported) Entered as Reported by: GOLDIE SMITH on 03/09/21 0933 Olanzapine (Olanzapine) 10 Mg Tablet, 10 MG PO HS, (Reported) Entered as Reported by: JOSHUA BUITRAGO on 03/24/19 1158 Promethazine HCl (Promethazine Tablet) 25 Mg Tablet, 12.5 MG PO Q6H PRN for NAUSEA/VOMITING, (Reported) Entered as Reported by: GOLDIE SMITH on 03/09/21 09 Roflumilast (Daliresp) 500 Mcg Tablet, 500 MCG PO DAILY, (Reported) Entered as Reported by: GOLDIE SMITH on 03/09/21 0912 Semaglutide (Ozempic) 1 Mg/0.75 Ml Pen.injctr, 1 MG INJ SUNDAY, (Reported) Entered as Reported by: GOLDIE SMITH on 03/09/21 09 Simethicone (Simethicone) 180 Mg Capsule, 180 MG PO UD PRN for STOMACH UPSET, (Reported) Entered as Reported by: GOLDIE SMITH on 03/09/21 09 Tramadol HCl (Tramadol HCl) 50 Mg Tablet, 50 MG PO Q6H PRN for PAIN-MODERATE (5-7), (Reported) Entered as Reported by: KENNY XIAO on 03/16/21 1058 Ziprasidone HCl (Ziprasidone HCl) 80 Mg Capsule, 160 MG PO HS, (Reported) Entered as Reported by: KENNY XIAO on 03/16/21 105 Review of Systems Review of Systems Constitutional: No chills, No fever EENTM: no symptoms reported Respiratory: see HPI Cardiovascular: no symptoms reported Gastrointestinal: see HPI Genitourinary: No dysuria Musculoskeletal: no symptoms reported Skin: no symptoms reported Psychiatric/Neurological: Anxiety Past Nkypnvb-Nwnevx-Mtdghe Hx Immunizations Up To Date First/Initial COVID19 Vaccinat: OCTOBER 2020 Second COVID19 Vaccination [place]: January 2021 Third COVID19 Vaccination Date: January 2021 Seasonal Allergies Seasonal Allergies: No Past Medical History Surgery/Hospitalization HX: DDD with R arm radiculopathy/"future back surgery", negative heart cath 03/09/21 Surgeries: Yes Bladder Surgery, Gallbladder, Hysterectomy, Tonsillectomy Respiratory: Yes Asthma, COPD Currently Using CPAP: No Currently Using BIPAP: No Cardiac: Yes High Cholesterol, Hypertension 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 had recent axilla abscess) Recent Skin Changes Blood Disorders: Yes (HEP C) Adverse Reaction/Blood Tranf: No Family Medical History Heart Disease, Cancer, CVA, Other Conditions/Hx Physical Exam Vital Signs Vital Signs - First Documented 06/25/21 11:40 Temp 36.3 Pulse 103 Resp 18 B/P (MAP) 116/71 (86) Pulse Ox 97 O2 Delivery Room Air Capillary Refill : Height, Weight, BMI Height: 5'7.00" Weight: 224lbs. 0.0oz. 101.924973to; 25.00 BMI Method:Actual General Appearance: No Apparent Distress, Anxious, Obese HEENT: PERRL/EOMI, Pharynx Normal Neck: Full Range of Motion, Normal Inspection, Non Tender, Supple Respiratory: Chest Non Tender, No Accessory Muscle Use, No Respiratory Distress, Rhonci; No Stridor Cardiovascular: Regular Rate, Rhythm, Normal Peripheral Pulses Gastrointestinal: Normal Bowel Sounds, No Pulsatile Mass, Non Tender, Soft Extremity: Normal Capillary Refill, Normal Inspection, No Pedal Edema Neurologic/Psychiatric: Alert, Oriented x3, network relations consultant II-XII Norm as Tested Skin: Normal Color, Warm/Dry Progress/Results/Core Measures Suspected Sepsis SIRS Temperature: Pulse: Respiratory Rate: Laboratory Tests 06/25/21 11:48: White Blood Count 7.8 Blood Pressure / Mean: Laboratory Tests 06/25/21 11:48: Creatinine 1.04, Platelet Count 273, Total Bilirubin 0.2 Results/Orders Lab Results Laboratory Tests Test 06/25/21 11:47 06/25/21 11:48 06/25/21 12:47 Range/Units Glucometer 425 *H 290 H 70-110 MG/DL White Blood Count 7.8 4.3-11.0 10^3/uL Red Blood Count 3.97 3.80-5.11 10^6/uL Hemoglobin 11.6 11.5-16.0 g/dL Hematocrit 36 35-52 % Mean Corpuscular Volume 90 80-99 fL Mean Corpuscular Hemoglobin 29 25-34 pg Mean Corpuscular Hemoglobin Concent 32 32-36 g/dL Red Cell Distribution Width 14.5 10.0-14.5 % Platelet Count 273 130-400 10^3/uL Mean Platelet Volume 11.1 9.0-12.2 fL Immature Granulocyte % (Auto) 0 % Neutrophils (%) (Auto) 62 42-75 % Lymphocytes (%) (Auto) 27 12-44 % Monocytes (%) (Auto) 6 0-12 % Eosinophils (%) (Auto) 3 0-10 % Basophils (%) (Auto) 1 0-10 % Neutrophils # (Auto) 4.9 1.8-7.8 X 10^3 Lymphocytes # (Auto) 2.1 1.0-4.0 X 10^3 Monocytes # (Auto) 0.5 0.0-1.0 X 10^3 Eosinophils # (Auto) 0.3 0.0-0.3 10^3/uL Basophils # (Auto) 0.1 0.0-0.1 10^3/uL Immature Granulocyte # (Auto) 0.0 0.0-0.1 10^3/uL Sodium Level 132 L 135-145 MMOL/L Potassium Level 3.4 L 3.6-5.0 MMOL/L Chloride Level 93 L 98-107 MMOL/L Carbon Dioxide Level 24 21-32 MMOL/L Anion Gap 15 H 5-14 MMOL/L Blood Urea Nitrogen 11 7-18 MG/DL Creatinine 1.04 0.60-1.30 MG/DL Estimat Glomerular Filtration Rate 55 BUN/Creatinine Ratio 11 Glucose Level 445 *H 70-105 MG/DL Calcium Level 9.2 8.5-10.1 MG/DL Corrected Calcium 9.3 8.5-10.1 MG/DL Magnesium Level 1.8 1.6-2.4 MG/DL Total Bilirubin 0.2 0.1-1.0 MG/DL Aspartate Amino Transf (AST/SGOT) 104 H 5-34 U/L Alanine Aminotransferase (ALT/SGPT) 90 H 0-55 U/L Alkaline Phosphatase 155 H 40-136 U/L C-Reactive Protein 7.48 H <0.50 MG/DL Total Protein 7.8 6.4-8.2 GM/DL Albumin 3.9 3.2-4.5 GM/DL My Orders Orders - DIAEN DELCID MD Accucheck Stat ONCE (06/25/21 11:43) Cbc With Automated Diff (06/25/21 11:49) Comprehensive Metabolic Panel (06/25/21 11:49) Chest 1 View Ap/Pa Only (06/25/21 11:49) Magnesium (06/25/21 11:49) Ed Iv/Invasive Line Start (06/25/21 11:49) Crp Fs (06/25/21 11:49) Ns Iv 500 Ml (Sodium Chloride 0.9%) (06/25/21 11:49) Insulin (Regular) Human (Novolin R (Per (06/25/21 11:49) Vital Signs/I&O 06/25/21 06/25/21 11:40 13:04 Temp 36.3 36.3 Pulse 103 95 Resp 18 18 B/P (MAP) 116/71 (86) 121/56 Pulse Ox 97 100 O2 Delivery Room Air Room Air Capillary Refill : Point of Care Testing Finger Stick Blood Glucose: 425 Blood Glucose Action Taken: Physician Notified Progress Note #1: Progress Note Initial Accu-Chek was 425. Check basic labs and repeat her chest x-ray. Give 500 mL of normal saline and 10 units of regular insulin. Progress Note #2: Progress Note Chest x-ray appears improved from last image. Blood work appears stable or improved from last visit. On recheck her glucose is down to 290. Will discharge to home and have her start the Ozempic again today. Counseled to monitor her diabetic diet. Diagnostic Imaging Diagonstic Imaging: Xray Plain Films/CT/US/NM/MRI: chest Comments [facility]. [place], [place] NAME: DOMINIQUE PINEDA [facility] REC#: [id number] PT STATUS: REG ER : 1965 PHYSICIAN: DIANE DELCID MD ADMIT DATE: 06/25/21/ER FS Signed Date of Exam:06/25/21 CHEST 1 VIEW AP/PA ONLY CHEST 1 VIEW AP/PA ONLY Indication: Cough and shortness of breath Comparison: 06/20/2021 Findings: No focal airspace disease in the visualized lungs. Please note that the posterior lower lobes are poorly evaluated by portable radiography. No pleural effusion or pneumothorax. Normal cardiomediastinal silhouette. Stable left subclavian Port-A-Cath. Impression: 1. No acute cardiopulmonary process by portable radiography. Dictated by: Dictated on workstation # [id number] Dict: 06/25/21 1234 Trans: 06/25/21 1238 CV [id number] Interpreted by: YISSEL CURRAN MD Electronically signed by: YISSEL CURRAN MD 06/25/21 1238 Reviewed: Reviewed by Me Departure Impression Primary Impression: Diabetes mellitus with hyperglycemia, with long-term current use of insulin Qualified Codes: E08.65 - Diabetes mellitus due to underlying condition with hyperglycemia; Z79.4 - continuous churn buttermaker (current) use of insulin Additional Impression: Pneumonia of left lower lobe due to infectious organism Disposition: 01 HOME, SELF-CARE Condition: Stable Departure-Patient Inst. Decision time for Depature: 13:00 Referrals: SACHIN MARQUEZ APRN (PCP) Primary Care Physician [facility] (Family) Primary Care Physician Patient Instructions: Diabetes and Diet, High Blood Sugar, Adult ED, Pneumonia, Adult ED Add. Discharge Instructions: Restart your Ozempic today. Continue on your regular medicines. Follow a strict diabetic diet to help limit your sugars running high. While fighting an infection your sugars will run high from the stress of your body fighting infection. Check back with clinic for continued concerns. All discharge instructions reviewed with patient and/or family. Voiced un derstanding. DIANE DELCID MD Jun 25, 2021 11:52
[2021-06-25 11:54] LABS: HEMATOCRIT 36 % (35-52); HEMOGLOBIN 11.6 g/dL (11.5-16.0); LYMPHOCYTES % (AUTO) 27 % (12-44); MEAN CORPUSCULAR HEMOGLOBIN 29 pg (25-34); MEAN CORPUSCULAR HGB CONC 32 g/dL (32-36); MEAN CORPUSCULAR VOLUME 90 fL (80-99); MEAN PLATELET VOLUME 11.1 fL (9.0-12.2); MONOCYTES % (AUTO) 6 % (0-12); NEUTROPHILS % (AUTO) 62 % (42-75); PLATELET COUNT 273 10^3/uL (130-400); WHITE BLOOD COUNT 7.8 10^3/uL (4.3-11.0)
[2021-06-25 11:55] LABS: BASOPHILS # (AUTO) 0.1 10^3/uL (0.0-0.1); BASOPHILS % (AUTO) 1 % (0-10); EOSINOPHILS # (AUTO) 0.3 10^3/uL (0.0-0.3); EOSINOPHILS % (AUTO) 3 % (0-10); LYMPHOCYTES # (AUTO) 2.1 X 10^3 (1.0-4.0); MONOCYTES # (AUTO) 0.5 X 10^3 (0.0-1.0); NEUTROPHILS # (AUTO) 4.9 X 10^3 (1.8-7.8)
[2021-06-25 12:17] LABS: POTASSIUM 3.4 MMOL/L (3.6-5.0)
[2021-06-25 12:18] LABS: BILIRUBIN,TOTAL 0.2 MG/DL (0.1-1.0); CALCIUM 9.2 MG/DL (8.5-10.1); CREATININE SERUM 1.04 MG/DL (0.60-1.30); MAGNESIUM 1.8 MG/DL (1.6-2.4)
[2021-06-25 12:19] LABS: ALBUMIN 3.9 GM/DL (3.2-4.5); TOTAL PROTEIN 7.8 GM/DL (6.4-8.2)
--- NOTE | 2021-06-25 12:39 | Diagnostic Imaging Report ---
CHEST 1 VIEW AP/PA ONLY Indication: Cough and shortness of breath Comparison: 06/20/2021 Findings: No focal airspace disease in the visualized lungs. Please note that the posterior lower lobes are poorly evaluated by portable radiography. No pleural effusion or pneumothorax. Normal cardiomediastinal silhouette. Stable left subclavian Port-A-Cath. Impression: 1. No acute cardiopulmonary process by portable radiography. Dictated by: Dictated on workstation # [id number]
[2021-06-25 13:04] VITALS: BP 121/56
== END 2021-06-25 13:05 | disposition home or self-care (01) ==
LOC: EDUNIT# 11:37 → ER FS 11:38
DX: E11.65 Type 2 diabetes mellitus with hyperglycemia (principal); J18.1 Lobar pneumonia, unspecified organism; E66.9 Obesity, unspecified; I10 Essential (primary) hypertension; J44.9 Chronic obstructive pulmonary disease, unspecified; E78.00 Pure hypercholesterolemia, unspecified; F31.9 Bipolar disorder, unspecified; F41.9 Anxiety disorder, unspecified; Z68.25 Body mass index [BMI] 25.0-25.9, adult; Z79.4 Long term (current) use of insulin; Z79.899 Other long term (current) drug therapy
CPT/HCPCS: 36415; 71045; 80053; 82947; 83735; 85025; 86141; 96374

== ENCOUNTER 2021-06-29 09:33 | Emergency (ER) | payer MEDICARE, MEDICAID ==
[2021-06-29] MEDS ORDERED: KETOROLAC 30 MG/ML VIAL IM STA (09:56)
[2021-06-29] MEDS ORDERED: ORPHENADRINE 60 MG/2 ML (NORFLEX) AMP (ED ONLY) IM STA (09:56)
--- NOTE | 2021-06-29 10:11 | ED General ---
General Chief Complaint: Back Problems Stated Complaint: LT LWR BACK PAIN Source of Information: Patient, Old Records History of Present Illness Date Seen by Provider: Jun 29, 2021 Time Seen by Provider: 09:41 Initial Comments 42-year-old female presenting with complaints of left flank pain that started last night and was worse this morning. She denies any blood in her urine but states it was a little more painful this morning. Denies any trauma or injury to her side. She is getting over a recent urine infection as well as pneumonia. She has been coughing more than usual. She has not taken anything for pain this morning. She states that she came directly to the emergency department when she woke up to have pain. She denies any fever or chills. The pain does not radiate into her legs. She has had no trouble controlling her bowel or bladder. She has had no fever or chills. Timing/Duration: 1 Day Severity: Moderate Modifying Factors: worse with Movement Associated Systoms: No Chest Pain; Cough; No Diaphoresis, No Fever/Chills, No Headaches, No Loss of Appetite, No Malaise, No Nausea/Vomiting, No Rash, No Seizure, No Shortness of Air, No Syncope, No Weakness Allergies and Home Medications Allergies Coded Allergies: diphenhydramine (Unverified Allergy, Unknown, 05/05/21) Patient Home Medication List Home Medication List Reviewed: Yes Acetaminophen (Tylenol Extra Strength) 500 Mg Tablet, 1,000 MG PO Q6H PRN for PAIN-MILD (1-4), (Reported) Entered as Reported by: GOLDIE SMITH on 03/09/21 0912 Acetaminophen/Diphenhydramine (Tylenol Pm Ex-Strength [place]) 1 Each Tablet, 1-2 EACH PO HS PRN for SLEEP, (Reported) Entered as Reported by: KENNY XIAO on 03/16/21 1058 Albuterol Sulfate (Proair Hfa) 1 Puff Puff, 2 PUFF IH Q4H PRN for SHORTNESS OF BREATH, (Reported) Entered as Reported by: GOLDIE SMITH on 05/24/20 1023 Amoxicillin/Potassium Clav (Augmentin 875-125 Tablet) 1 Each Tablet, 1 EACH PO BID Prescribed by: POLA WEBB on 06/20/21 1303 Benzonatate (Tessalon Perles) 100 Mg Capsule, 100 MG PO TID PRN for COUGH, (Reported) Entered as Reported by: GOLDIE SMITH on 03/09/21 0912 Colestipol HCl (Colestipol HCl) 1 Gm Tablet, 1 GM PO DAILY, (Reported) Entered as Reported by: GOLDIE SMITH on 03/09/21 0912 Escitalopram Oxalate (Escitalopram Oxalate) 20 Mg Tablet, 40 MG PO DAILY, (Reported) Entered as Reported by: GOLDIE SMITH on 05/24/20 1016 Fluconazole (Diflucan) 150 Mg Tablet, 150 MG PO ONCE PRN for one today and one in 7 days Prescribed by: POLA WEBB on 06/20/21 1330 Fluconazole (Fluconazole) 200 Mg Tablet, 200 MG PO DAILY Prescribed by: DIANE DELCID on 06/29/21 1144 Fluticasone Propion/Salmeterol (Fluticasone-Salmeterol 250-50) 1 Each Blst.w.dev, 1 PUFF INH DAILY, (Reported) Entered as Reported by: GOLDIE SMITH on 05/24/20 1023 Gabapentin (Gabapentin) 100 Mg Capsule, 100 MG PO HS, (Reported) Entered as Reported by: GOLDIE SMITH on 05/24/20 1016 Insulin Aspart (Novolog Flexpen) 300 Units/3 Ml Solution, 25 UNITS SC WM, (Reported) Entered as Reported by: KENNY XIAO on 03/16/21 1058 Insulin Degludec (Tresiba Flextouch U-200) 200 Unit/1 Ml Insuln.pen, 126 UNITS SQ DAILY, (Reported) Entered as Reported by: GOLDIE SMITH on 03/09/21 0933 Ipratropium [place] (Atrovent Hfa) 12.9 Gm Aers, 2 PUFF IH DAILY PRN for SHORTNESS OF BREATH, (Reported) Entered as Reported by: GOLDIE SMITH on 03/09/21 0912 Loratadine (Claritin) 10 Mg Tablet, 10 MG PO DAILY, (Reported) Entered as Reported by: GOLDIE SMITH on 05/24/20 1025 Menthol (Activice) 118 Ml [place], 1 APPLIC TP UD PRN for PAIN-BREAKTHROUGH, (Reported) Entered as Reported by: KENNY XIAO on 03/16/21 1058 Metformin HCl (Metformin HCl ER) 500 Mg Tab.er.24, 1,000 MG PO 1800, (Reported) Entered as Reported by: KENNY XIAO on 03/16/21 1058 Mirabegron (Myrbetriq) 25 Mg Tab.er.24h, 25 MG PO DAILY, (Reported) Entered as Reported by: GOLDIE SMITH on 05/24/20 1016 Montelukast Sodium (Singulair) 10 Mg Tablet, 10 MG PO DAILY, (Reported) Entered as Reported by: GOLDIE SMITH on 05/24/20 1024 Nebivolol HCl (Bystolic) 10 Mg Tab, 10 MG PO DAILY, (Reported) Entered as Reported by: GOLDIE SMITH on 03/09/21 0933 Olanzapine (Olanzapine) 10 Mg Tablet, 10 MG PO HS, (Reported) Entered as Reported by: JOSHUA BUITRAGO on 03/24/19 1158 Promethazine HCl (Promethazine Tablet) 25 Mg Tablet, 12.5 MG PO Q6H PRN for NAUSEA/VOMITING, (Reported) Entered as Reported by: GOLDIE SMITH on 03/09/21 09 Roflumilast (Daliresp) 500 Mcg Tablet, 500 MCG PO DAILY, (Reported) Entered as Reported by: GOLDIE SMITH on 03/09/21 09 Semaglutide (Ozempic) 1 Mg/0.75 Ml Pen.injctr, 1 MG INJ SUNDAY, (Reported) Entered as Reported by: GOLDIE SMITH on 03/09/21 09 Simethicone (Simethicone) 180 Mg Capsule, 180 MG PO UD PRN for STOMACH UPSET, (Reported) Entered as Reported by: GOLDIE SMITH on 03/09/21 09 Tramadol HCl (Tramadol HCl) 50 Mg Tablet, 50 MG PO Q6H PRN for PAIN-MODERATE (5- 7), (Reported) Entered as Reported by: KENNY XIAO on 03/16/21 105 Ziprasidone HCl (Ziprasidone HCl) 80 Mg Capsule, 160 MG PO HS, (Reported) Entered as Reported by: KENNY XIAO on 03/16/21 105 Review of Systems Review of Systems Constitutional: No chills, No fever EENTM: no symptoms reported Respiratory: see HPI Cardiovascular: no symptoms reported Gastrointestinal: see HPI Genitourinary: see HPI, dysuria Musculoskeletal: see HPI (left flank pain) Skin: no symptoms reported; No change in color Psychiatric/Neurological: Anxiety Past Dqldsga-Bynmza-Hdqjhy Hx Patient Social History Tobacco Use?: No Smoking Status: Former Smoker Use of E-Cig and/or Vaping dev: No Substance use?: No Alcohol Use?: No Pt feels they are or have been: No Immunizations Up To Date First/Initial COVID19 Vaccinat: OCTOBER 2020 Second COVID19 Vaccination [place]: OCTOBER 2020 Third COVID19 Vaccination Date: January 2021 Seasonal Allergies Seasonal Allergies: No Past Medical History Surgery/Hospitalization HX: DDD with R arm radiculopathy/"future back surgery", negative heart cath 03/09/21; Pneumonia Surgeries: Yes Bladder Surgery, Gallbladder, Hysterectomy, Tonsillectomy Respiratory: Yes Asthma, COPD Currently Using CPAP: No Currently Using BIPAP: No Cardiac: Yes High Cholesterol, Hypertension Neurological: No [employer] History: Hysterectomy Genitourinary: Yes (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 had recent axilla abscess) Recent Skin Changes Blood Disorders: Yes (HEP C) Adverse Reaction/Blood Tranf: No Family Medical History Heart Disease, Cancer, CVA, Other Conditions/Hx Physical Exam Vital Signs Vital Signs - First Documented 06/29/21 10:09 Temp 35.9 Pulse 97 Resp 18 B/P (MAP) 113/74 (87) Pulse Ox 99 O2 Delivery Room Air Capillary Refill : Height, Weight, BMI Height: 5'7.00" Weight: 224lbs. 0.0oz. [id number]; 25.00 BMI Method:Actual General Appearance: No Apparent Distress, WD/WN, Obese HEENT: PERRL/EOMI, Pharynx Normal Neck: Full Range of Motion, Normal Inspection, Non Tender, Supple Gastrointestinal: Normal Bowel Sounds, No Pulsatile Mass, Soft; No Distended, No Guarding, No Rebound; Tenderness (left flank tender to palpation lateral aspect. No crepitus, discoloration, increased warmth) Rectal: Deferred Back: No CVA Tenderness, No Vertebral Tenderness Neurologic/Psychiatric: Alert, Oriented x3 Skin: Normal Color, Warm/Dry Progress/Results/Core Measures Suspected Sepsis SIRS Temperature: Pulse: Respiratory Rate: Blood Pressure / Mean: Results/Orders Lab Results Laboratory Tests Test 06/29/21 09:43 Range/Units Urine Color YELLOW Urine Clarity CLEAR Urine pH 6.5 5-9 Urine Specific [place] 1.010 L 1.016-1.022 Urine Protein NEGATIVE NEGATIVE Urine Glucose (UA) NEGATIVE NEGATIVE Urine Ketones NEGATIVE NEGATIVE Urine Nitrite NEGATIVE NEGATIVE Urine Bilirubin NEGATIVE NEGATIVE Urine Urobilinogen 0.2 < = 1.0 MG/DL Urine Leukocyte Esterase NEGATIVE NEGATIVE Urine RBC (Auto) NEGATIVE NEGATIVE Urine RBC NONE /HPF Urine WBC NONE /HPF Urine Squamous Epithelial Cells 5-10 /HPF Urine Crystals NONE /LPF Urine Bacteria NEGATIVE /HPF Urine Casts NONE /LPF Urine Mucus NEGATIVE /LPF Urine Yeast MODERATE H /HPF Urine Culture Indicated NO My Orders Orders - DIANE DELCID MD Ua Culture If Indicated (06/29/21 09:56) Ct Abdomen/Pelvis Wo (06/29/21 09:56) Ketorolac Injection (Toradol Injection) (06/29/21 09:56) Orphenadrine Inj (Ed Only) (Norflex Inje (06/29/21 09:56) Vital Signs/I&O 06/29/21 06/29/21 10:09 11:45 Temp 35.9 35.9 Pulse 97 89 Resp 18 18 B/P (MAP) 113/74 (87) 113/74 Pulse Ox 99 99 O2 Delivery Room Air Room Air Capillary Refill : Progress Note #1: Progress Note With no focal injury will obtain urinalysis to evaluate for hematuria or signs of infection. CT scan without contrast to look for kidney stone versus diverticulitis versus colitis versus abdominal mass Try a dose of Toradol and Norflex to help from a pain standpoint and possible muscle spasm standpoint since she has been coughing with recent pneumonia and chronic COPD Progress Note #2: Time: 10:41 Progress Note Urinalysis showed some yeast but no definite sign of infection. Specific gravity was good at 1.010. Awaiting results of the CT imaging Progress Note #3: Time: 11:37 Progress Note Patient was resting comfortably in room when I went to review results with her. She reports pain is improved with treatment. Reviewed with Patient CT scan did not show any acute abnormality on the left flank. The urine did show yeast so will treat for yeast UTI and infection since she has been on recent antibiotics. Encouraged to use muscle relaxer that she has at home, cyclobenzaprine. Alternate ice and heat to the left flank as well. For continued concerns follow-up through the clinic. She does have some patchy infiltrate in base of lung but no fever or increase in shortness of breath. She feels like she is recovering from pneumonia so this may still be residual from recent infection. She has no pain in the area of right base of lung Diagnostic Imaging Diagonstic Imaging: CT Plain Films/CT/US/NM/MRI: abdomen, pelvis Comments [facility]. [place], [place] NAME: DOMINIQUE PINEDA [facility] REC#: [id number] PT STATUS: REG ER : 1965 PHYSICIAN: DIANE DELCID MD ADMIT DATE: 06/29/21/ER FS Draft Date of Exam:06/29/21 CT ABDOMEN/PELVIS WO PROCEDURE: CT abdomen and pelvis without contrast. TECHNIQUE: Multiple contiguous axial images were obtained through the abdomen and pelvis without the use of intravenous contrast. Auto Exposure Controls were utilized during the CT exam to meet ALARA standards for radiation dose reduction. INDICATION: Right-sided flank pain and dysuria. COMPARISON: 03/23/2021. FINDINGS: Imaging through the lung bases does show some minimal patchy groundglass infiltrate in the right lower lobe. The liver again demonstrates diffuse low density, consistent with hepatic steatosis. No discrete liver mass is identified. The gallbladder is surgically absent. There is no biliary ductal dilatation. The pancreas and spleen are unremarkable. No adrenal mass is detected. The right kidney is surgically absent. No recurrent mass is identified. The left kidney is unremarkable. There is no hydronephrosis. The aorta is nonaneurysmal. No central retroperitoneal or mesenteric lymphadenopathy is detected. The bowel loops are of normal caliber. There is no obstruction. No free fluid or fluid collection is seen. The bladder is unremarkable. No pelvic lymphadenopathy is identified. Evaluation of the bony structures shows no osteolytic or blastic lesion. Pars defects bilaterally at the L5-S1 level are noted without evidence of significant spondylolisthesis. IMPRESSION: 1. Hepatic steatosis. 2. Status post right nephrectomy without recurrent mass or evidence of metastatic disease. 3. Patchy groundglass right lower lobe pulmonary infiltrates. Dictated on workstation # [id number] Dict: 06/29/21 1045 Trans: 06/29/21 1052 [id number] Interpreted by: BANDAR COSTA MD Electronically signed by: Reviewed: Reviewed by Me Departure Impression Primary Impression: Acute left flank pain Additional Impression: Yeast cystitis Disposition: HOME, SELF-CARE Condition: Stable Departure-Patient Inst. Decision time for Depature: 11:39 Referrals: SACHIN MARQUEZ APRN (PCP) Primary Care Physician [facility] (Family) Primary Care Physician Patient Instructions: Flank Pain ED, Yeast Infection (DC) Add. Discharge Instructions: Stay well-hydrated drink plenty of fluids. Take the medication to help treat for yeast infection. Continue to use your muscle relaxer, cyclobenzaprine or Flexeril, at home this will help with the flank pain. You may alternate ice and heat to your stomach as well to help help with her muscle pain and inflammation Follow-up through the clinic for continued concerns All discharge instructions reviewed with patient and/or family. Voiced understanding. Scripts Fluconazole (Fluconazole) 200 Mg Tablet 200 MG PO DAILY for Yeast Cystitis for 14 Days, #14 TAB 0 Refills Prov: DIANE DELCID MD 06/29/21 DIANE DELCID MD Jun 29, 2021 10:11
[2021-06-29 10:18] LABS: BILIRUBIN,URINE NEGATIVE (NEGATIVE); CLARITY,URINE CLEAR; COLOR,URINE YELLOW; GLUCOSE, URINE (UA) NEGATIVE (NEGATIVE); KETONES,URINE NEGATIVE (NEGATIVE); LEUKOCYTE ESTERASE ,URINE NEGATIVE (NEGATIVE); NITRITE,URINE NEGATIVE (NEGATIVE); PH,URINE 6.5 (5-9); PROTEIN,URINE NEGATIVE (NEGATIVE)
[2021-06-29 10:33] LABS: BACTERIA,URINE NEGATIVE /HPF
[2021-06-29 10:34] LABS: YEAST,URINE MODERATE /HPF
--- NOTE | 2021-06-29 10:52 | Diagnostic Imaging Report ---
PROCEDURE: CT abdomen and pelvis without contrast. TECHNIQUE: Multiple contiguous axial images were obtained through the abdomen and pelvis without the use of intravenous contrast. Auto Exposure Controls were utilized during the CT exam to meet ALARA standards for radiation dose reduction. INDICATION: Right-sided flank pain and dysuria. COMPARISON: 03/23/2021. FINDINGS: Imaging through the lung bases does show some minimal patchy groundglass infiltrate in the right lower lobe. The liver again demonstrates diffuse low density, consistent with hepatic steatosis. No discrete liver mass is identified. The gallbladder is surgically absent. There is no biliary ductal dilatation. The pancreas and spleen are unremarkable. No adrenal mass is detected. The right kidney is surgically absent. No recurrent mass is identified. The left kidney is unremarkable. There is no hydronephrosis. The aorta is nonaneurysmal. No central retroperitoneal or mesenteric lymphadenopathy is detected. The bowel loops are of normal caliber. There is no obstruction. No free fluid or fluid collection is seen. The bladder is unremarkable. No pelvic lymphadenopathy is identified. Evaluation of the bony structures shows no osteolytic or blastic lesion. Pars defects bilaterally at the L5-S1 level are noted without evidence of significant spondylolisthesis. IMPRESSION: 1. Hepatic steatosis. 2. Status post right nephrectomy without recurrent mass or evidence of metastatic disease. 3. Patchy groundglass right lower lobe pulmonary infiltrates. Dictated by: Dictated on workstation # [id number]
[2021-06-29] MEDS ORDERED: FLUC200T5 PO (11:44)
[2021-06-29 11:45] VITALS: BP 113/74
== END 2021-06-29 11:46 | disposition home or self-care (01) ==
LOC: EDUNIT# 09:33 → ER FS 09:34
DX: B37.41 Candidal cystitis and urethritis (principal); I10 Essential (primary) hypertension; E11.9 Type 2 diabetes mellitus without complications; E78.00 Pure hypercholesterolemia, unspecified; F41.0 Panic disorder [episodic paroxysmal anxiety]; F31.9 Bipolar disorder, unspecified; J44.9 Chronic obstructive pulmonary disease, unspecified; Z87.891 Personal history of nicotine dependence; Z87.01 Personal history of pneumonia (recurrent); Z87.442 Personal history of urinary calculi; Z85.51 Personal history of malignant neoplasm of bladder; Z85.528 Personal history of other malignant neoplasm of kidney; Z90.710 Acquired absence of both cervix and uterus; Z90.5 Acquired absence of kidney; Z79.4 Long term (current) use of insulin; Z79.51 Long term (current) use of inhaled steroids; Z79.84 Long term (current) use of oral hypoglycemic drugs; Z79.899 Other long term (current) drug therapy
CPT/HCPCS: 74176; 81000

== ENCOUNTER → 2021-09-13 | Outpatient (CLI) | payer MEDICARE, MEDICAID ==
[~2021-09-13] MED LIST changes: +CATHETER FLUSH 10 ML SYR IV PRN; +FLUC200T9 PO; +HOLD METFORMIN - RECEIVED CONTRAST 20 ML VIAL IV SCH; +IOHEXOL 350 MG/ML 100 ML (OMNIPAQUE 350) VIAL IV ONE; +NS 100 ML (IVPB) BAG IV ONE
[2021-09-13 10:16] LABS: ABSOLUTE RETIC # 77 10e9/uL (24-90); BASOPHILS # (AUTO) 0.1 10^3/uL (0.0-0.1); BASOPHILS % (AUTO) 1 % (0-10); EOSINOPHILS # (AUTO) 0.2 10^3/uL (0.0-0.3); EOSINOPHILS % (AUTO) 2 % (0-10); HEMATOCRIT 36 % (35-52); HEMOGLOBIN 11.4 g/dL (11.5-16.0); LYMPHOCYTES # (AUTO) 2.7 10^3/uL (1.0-4.0); LYMPHOCYTES % (AUTO) 32 % (12-44); MEAN CORPUSCULAR HEMOGLOBIN 27 pg (25-34); MEAN CORPUSCULAR HGB CONC 32 g/dL (32-36); MEAN CORPUSCULAR VOLUME 87 fL (80-99); MEAN PLATELET VOLUME 9.9 fL (9.0-12.2); MONOCYTES # (AUTO) 0.4 10^3/uL (0.0-1.0); MONOCYTES % (AUTO) 5 % (0-12); NEUTROPHILS # (AUTO) 4.9 10^3/uL (1.8-7.8); NEUTROPHILS % (AUTO) 59 % (42-75); PLATELET COUNT 272 10^3/uL (130-400); RETICULOCYTE % 1.84 % (0.50-2.40); WHITE BLOOD COUNT 8.2 10^3/uL (4.3-11.0)
[2021-09-13 10:43] LABS: CREATININE SERUM 1.07 MG/DL (0.60-1.30); POTASSIUM 4.2 MMOL/L (3.6-5.0)
[2021-09-13 10:44] LABS: ALBUMIN 3.8 GM/DL (3.2-4.5); BILIRUBIN,TOTAL 0.2 MG/DL (0.1-1.0); CALCIUM 9.1 MG/DL (8.5-10.1); TOTAL PROTEIN 7.1 GM/DL (6.4-8.2)
--- NOTE | 2021-09-13 11:58 | Diagnostic Imaging Report ---
PROCEDURE: CT chest, abdomen, and pelvis with contrast. TECHNIQUE: Multiple contiguous axial images were obtained through the chest, abdomen, and pelvis after the administration of intravenous contrast. Auto Exposure Controls were utilized during the CT exam to meet ALARA standards for radiation dose reduction. INDICATION: C66.1, follow-up renal cancer. COMPARISON: June 29, 2021, and September 13, 2020. FINDINGS: Left-sided Port-A-Cath is in place. No significant adenopathy within the chest. No aneurysmal dilatation of the thoracic aorta. The heart is within normal limits in size. No significant pericardial effusion. No pleural effusion. The trachea is patent. No pneumothorax. Scattered peribronchial thickening and scattered regions of mucus impaction are again identified. 0.7 cm pleural-based nodular density associated with the posterior aspect of the right upper lobe is again identified and unchanged since September 2020. No new suspicious pulmonary nodule or mass. Postsurgical changes within the partially visualized cervical spine. These postsurgical changes are new from the prior examination. The vertebral bodies associated with postsurgical changes within the lower cervical spine demonstrate significant sclerosis throughout. Diffusely decreased density of the liver, consistent with fatty infiltration of the liver. No focal hepatic mass. The spleen is unremarkable. The adrenal glands are unremarkable. The pancreas is unremarkable. Right nephrectomy without abnormal soft tissue mass within the right renal fossa. The left kidney and left ureter are unremarkable. Mild vascular calcifications within the abdominal aorta and its branch vessels without aneurysmal dilatation of the abdominal aorta. The urinary bladder is unremarkable. The uterus is not visualized, likely surgically absent. No abnormal adnexal mass lesion. The appendix is unremarkable. No bowel obstruction or pneumatosis. No significant adenopathy, free air, or free fluid within the abdomen or pelvis. Small fluid collection is seen overlying the right hip with associated adjacent inflammatory stranding within the subcutaneous tissues. Bilateral pars interarticularis defects of L5 with very minimal anterolisthesis of L5 on S1. Scattered osseous degenerative changes, including L3/L4. No acute fracture or destructive osseous process. IMPRESSION: Postsurgical changes of a right nephrectomy without abnormal soft tissue mass within the right renal fossa. Interval postsurgical changes within the lower cervical spine, only partially visualized. Developing sclerosis is noted within these vertebral bodies, which may simply be postsurgical in nature. Osteoblastic osseous metastatic disease is felt less likely. Fatty infiltration of the liver. Focal fluid collection overlying the right hip laterally with associated adjacent subcutaneous fat stranding. Findings may relate to small hematoma and contusion. Findings consistent with chronic bronchitis without suspicious pulmonary nodule. Dictated by: Dictated on workstation # [id number]
== END ==
LOC: LAB FS 09:48
PROVIDERS: ATTEND Internal Medicine Hematology & Oncology
DX: C66.1 Malignant neoplasm of right ureter (principal); K76.0 Fatty (change of) liver, not elsewhere classified; Z90.5 Acquired absence of kidney; Z98.890 Other specified postprocedural states
CPT/HCPCS: 36415; 71260; 74177; 80053; 82607; 82728; 82746; 83540; 83550; 83615; 84443; 85025; 85045; Q9967

== ENCOUNTER 2021-09-23 13:49 | Emergency (ER) | payer MEDICARE, MEDICAID ==
[~2021-09-23] VITALS: Ht 170.2 cm; Wt 91.6 kg
[~2021-09-23 13:49] MED LIST changes: -CATHETER FLUSH 10 ML SYR IV PRN; -HOLD METFORMIN - RECEIVED CONTRAST 20 ML VIAL IV SCH; -IOHEXOL 350 MG/ML 100 ML (OMNIPAQUE 350) VIAL IV ONE; -NS 100 ML (IVPB) BAG IV ONE
--- NOTE | 2021-09-23 13:59 | ED General ---
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 Patient admits to doing marijuana since yesterday. She is a smoker but is cutting down and is down to 2 to 5 cigarettes a day. Patient remembers passing out and does not remember anything since then except that she woke up in the ambulance. Patient's was present at the time, and thinks she might have had a seizure. Patient does not have any history of seizures. Denies fever, neck pain, neck stiffness, headache, abdominal pain, nausea and vomiting, diarrhea, chest pain, shortness of breath. Allergies and Home Medications Allergies Coded Allergies: diphenhydramine (Unverified Allergy, Unknown, 05/05/21) Patient Home Medication List Home Medication List Reviewed: Yes Acetaminophen (Tylenol Extra Strength) 500 Mg Tablet, 1,000 MG PO Q6H PRN for PAIN-MILD (1-4), (Reported) Entered as Reported by: GOLDIE SMITH on 03/09/21 0912 Acetaminophen/Diphenhydramine (Tylenol Pm Ex-Strength Caplet) 1 Each Tablet, 1-2 EACH PO HS PRN for SLEEP, (Reported) Entered as Reported by: KENNY XIAO on 03/16/21 1058 Albuterol Sulfate (Proair Hfa) 1 Puff Puff, 2 PUFF IH Q4H PRN for SHORTNESS OF BREATH, (Reported) Entered as Reported by: GOLDIE SMITH on 05/24/20 1023 Amoxicillin/Potassium Clav (Augmentin 875-125 Tablet) 1 Each Tablet, 1 EACH PO BID Prescribed by: POLA WEBB on 06/20/21 1303 Benzonatate (Tessalon Perles) 100 Mg Capsule, 100 MG PO TID PRN for COUGH, (Reported) Entered as Reported by: GOLDIE SMITH on 03/09/21 0912 Colestipol HCl (Colestipol HCl) 1 Gm Tablet, 1 GM PO DAILY, (Reported) Entered as Reported by: GOLDIE SMITH on 03/09/21 0912 Escitalopram Oxalate (Escitalopram Oxalate) 20 Mg Tablet, 40 MG PO DAILY, (Rep orted) Entered as Reported by: GOLDIE SMITH on 05/24/20 1016 Fluconazole (Diflucan) 150 Mg Tablet, 150 MG PO ONCE PRN for one today and one in 7 days Prescribed by: POLA WEBB on 06/20/21 1330 Fluconazole (Fluconazole) 200 Mg Tablet, 200 MG PO DAILY Prescribed by: DIANE DELCID on 06/29/21 1144 Fluticasone Propion/Salmeterol (Fluticasone-Salmeterol 250-50) 1 Each Blst.w.dev, 1 PUFF INH DAILY, (Reported) Entered as Reported by: GOLDIE SMITH on 05/24/20 1023 Gabapentin (Gabapentin) 100 Mg Capsule, 100 MG PO HS, (Reported) Entered as Reported by: GOLDIE SMITH on 05/24/20 1016 Insulin Aspart (Novolog Flexpen) 300 Units/3 Ml Solution, 25 UNITS SC WM, (Reported) Entered as Reported by: KENNY XIAO on 03/16/21 1058 Insulin Degludec (Tresiba Flextouch U-200) 200 Unit/1 Ml Insuln.pen, 126 UNITS SQ DAILY, (Reported) Entered as Reported by: GOLDEI SMITH on 03/09/21 0933 Ipratropium [place] (Atrovent Hfa) 12.9 Gm Aers, 2 PUFF IH DAILY PRN for SHORTNESS OF BREATH, (Reported) Entered as Reported by: GOLDIE SMITH on 03/09/21 0912 Loratadine (Claritin) 10 Mg Tablet, 10 MG PO DAILY, (Reported) Entered as Reported by: GOLDIE SMITH on 05/24/20 1025 Menthol (Activice) 118 Ml [place], 1 APPLIC TP UD PRN for PAIN-BREAKTHROUGH, (Reported) Entered as Reported by: KENNY XIAO on 03/16/21 1058 Metformin HCl (Metformin HCl ER) 500 Mg Tab.er.24, 1,000 MG PO 1800, (Reported) Entered as Reported by: KENNY XIAO on 03/16/21 1058 Mirabegron (Myrbetriq) 25 Mg Tab.er.24h, 25 MG PO DAILY, (Reported) Entered as Reported by: GOLDIE SMITH on 05/24/20 1016 Montelukast Sodium (Singulair) 10 Mg Tablet, 10 MG PO DAILY, (Reported) Entered as Reported by: GOLDIE SMITH on 05/24/20 1024 Nebivolol HCl (Bystolic) 10 Mg Tab, 10 MG PO DAILY, (Reported) Entered as Reported by: GOLDIE SMITH on 03/09/21 0933 Olanzapine (Olanzapine) 10 Mg Tablet, 10 MG PO HS, (Reported) Entered as Reported by: JOSHUA BUITRAGO on 03/24/19 1158 Promethazine HCl (Promethazine Tablet) 25 Mg Tablet, 12.5 MG PO Q6H PRN for NAUSEA/VOMITING, (Reported) Entered as Reported by: GOLDIE SMITH on 03/09/21 0912 Roflumilast (Daliresp) 500 Mcg Tablet, 500 MCG PO DAILY, (Reported) Entered as Reported by: GOLDIE SMITH on 03/09/21 09 Semaglutide (Ozempic) 1 Mg/0.75 Ml Pen.injctr, 1 MG INJ SUNDAY, (Reported) Entered as Reported by: GOLDIE SMITH on 03/09/21 09 Simethicone (Simethicone) 180 Mg Capsule, 180 MG PO UD PRN for STOMACH UPSET, (Reported) Entered as Reported by: GOLDIE SMITH on 03/09/21 09 Tramadol HCl (Tramadol HCl) 50 Mg Tablet, 50 MG PO Q6H PRN for PAIN-MODERATE (5- 7), (Reported) Entered as Reported by: KENNY XIAO on 03/16/21 1058 Ziprasidone HCl (Ziprasidone HCl) 80 Mg Capsule, 160 MG PO HS, (Reported) Entered as Reported by: KENNY XIAO on 03/16/21 105 Review of Systems Review of Systems Constitutional: no symptoms reported EENTM: no symptoms reported Respiratory: short of breath Cardiovascular: no symptoms reported Gastrointestinal: no symptoms reported Genitourinary: no symptoms reported Musculoskeletal: no symptoms reported Skin: no symptoms reported Psychiatric/Neurological: No Symptoms Reported Past Vqveler-Gmyxco-Ldmart Hx Immunizations Up To Date First/Initial COVID19 Vaccinat: OCTOBER 2020 Second COVID19 Vaccination [place]: OCTOBER 2020 Third COVID19 Vaccination Date: January 2021 Seasonal Allergies Seasonal Allergies: No Past Medical History Surgery/Hospitalization HX: DDD with R arm radiculopathy/"future back surgery", negative heart cath 03/09/21; Pneumonia Surgeries: Yes Bladder Surgery, Gallbladder, Hysterectomy, Tonsillectomy Respiratory: Yes Asthma, COPD Currently Using CPAP: No Currently Using BIPAP: No Cardiac: Yes High Cholesterol, Hypertension Neurological: No [employer] History: Hysterectomy Genitourinary: Yes (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 had recent axilla abscess) Recent Skin Changes Blood Disorders: Yes (HEP C) Adverse Reaction/Blood Tranf: No Family Medical History Heart Disease, Cancer, CVA, Other Conditions/Hx Physical Exam Vital Signs Vital Signs - First Documented 09/23/21 13:49 Temp 36.9 Pulse 107 Resp 13 B/P (MAP) 132/79 (96) Pulse Ox 92 O2 Delivery Room Air Capillary Refill : Height, Weight, BMI Height: 5'7.00" Weight: 224lbs. 0.0oz. [id number]; 25.00 BMI Method:Actual General Appearance: No Apparent Distress, WD/WN HEENT: PERRL/EOMI, TMs Normal Neck: Other (pt had neck surgery in Mar 2021, scar seen) Respiratory: Chest Non Tender, Lungs Clear, Normal Breath Sounds, No Respiratory Distress Cardiovascular: Regular Rate, Rhythm, No Edema, Normal Peripheral Pulses Gastrointestinal: Normal Bowel Sounds, Non Tender, Soft Extremity: Non Tender Neurologic/Psychiatric: Alert, Oriented x3, No Motor/Sensory Deficits, Normal Mood/Affect, alliance director II-XII Norm as Tested Skin: Normal Color Lymphatic: No Adenopathy Progress/Results/Core Measures Suspected Sepsis SIRS Temperature: Pulse: Respiratory Rate: Laboratory Tests 09/23/21 13:53: White Blood Count 8.3 Blood Pressure / Mean: Laboratory Tests 09/23/21 13:53: Creatinine 0.88, Platelet Count 231, Total Bilirubin 0.2 Results/Orders Lab Results Laboratory Tests Test 09/23/21 13:53 09/23/21 15:14 Range/Units White Blood Count 8.3 4.3-11.0 10^3/uL Red Blood Count 4.12 3.80-5.11 10^6/uL Hemoglobin 11.1 L 11.5-16.0 g/dL Hematocrit 35 35-52 % Mean Corpuscular Volume 86 80-99 fL Mean Corpuscular Hemoglobin 27 25-34 pg Mean Corpuscular Hemoglobin Concent 31 L 32-36 g/dL Red Cell Distribution Width 17.2 H 10.0-14.5 % Platelet Count 231 130-400 10^3/uL Mean Platelet Volume 10.5 9.0-12.2 fL Immature Granulocyte % (Auto) 0 % Neutrophils (%) (Auto) 50 42-75 % Lymphocytes (%) (Auto) 40 12-44 % Monocytes (%) (Auto) 7 0-12 % Eosinophils (%) (Auto) 2 0-10 % Basophils (%) (Auto) 1 0-10 % Neutrophils # (Auto) 4.1 1.8-7.8 10^3/uL Lymphocytes # (Auto) 3.3 1.0-4.0 10^3/uL Monocytes # (Auto) 0.6 0.0-1.0 10^3/uL Eosinophils # (Auto) 0.2 0.0-0.3 10^3/uL Basophils # (Auto) 0.1 0.0-0.1 10^3/uL Immature Granulocyte # (Auto) 0.0 0.0-0.1 10^3/uL Sodium Level 133 L 135-145 MMOL/L Potassium Level 3.9 3.6-5.0 MMOL/L Chloride Level 100 98-107 MMOL/L Carbon Dioxide Level 22 21-32 MMOL/L Anion Gap 11 5-14 MMOL/L Blood Urea Nitrogen 8 7-18 MG/DL Creatinine 0.88 0.60-1.30 MG/DL Estimat Glomerular Filtration Rate 78 BUN/Creatinine Ratio 9 Glucose Level 191 H 70-105 MG/DL Calcium Level 9.1 8.5-10.1 MG/DL Corrected Calcium 9.2 8.5-10.1 MG/DL Total Bilirubin 0.2 0.1-1.0 MG/DL Aspartate Amino Transf (AST/SGOT) 25 5-34 U/L Alanine Aminotransferase (ALT/SGPT) 33 0-55 U/L Alkaline Phosphatase 125 40-136 U/L Troponin I < 0.30 <0.30 NG/ML Total Protein 7.0 6.4-8.2 GM/DL Albumin 3.9 3.2-4.5 GM/DL Urine Color YELLOW Urine Clarity CLEAR Urine pH 6.0 5-9 Urine Specific [place] 1.020 1.016-1.022 Urine Protein NEGATIVE NEGATIVE Urine Glucose (UA) NEGATIVE NEGATIVE Urine Ketones NEGATIVE NEGATIVE Urine Nitrite NEGATIVE NEGATIVE Urine Bilirubin NEGATIVE NEGATIVE Urine Urobilinogen 0.2 < = 1.0 MG/DL Urine Leukocyte Esterase NEGATIVE NEGATIVE Urine RBC (Auto) NEGATIVE NEGATIVE Urine RBC NONE /HPF Urine WBC NONE /HPF Urine Squamous Epithelial Cells 10-25 H /HPF Urine Crystals NONE /LPF Urine Bacteria FEW H /HPF Urine Casts NONE /LPF Urine Mucus SMALL H /LPF Urine Yeast FEW H /HPF Urine Culture Indicated NO Urine Opiates Screen NEGATIVE NEGATIVE Urine Oxycodone Screen NEGATIVE NEGATIVE Urine Methadone Screen NEGATIVE NEGATIVE Urine Propoxyphene Screen NEGATIVE NEGATIVE Urine Barbiturates Screen NEGATIVE NEGATIVE Ur Tricyclic Antidepressants Screen NEGATIVE NEGATIVE Urine Phencyclidine Screen NEGATIVE NEGATIVE Urine Amphetamines Screen NEGATIVE NEGATIVE Urine Methamphetamines Screen NEGATIVE NEGATIVE Urine Benzodiazepines Screen NEGATIVE NEGATIVE Urine Cocaine Screen NEGATIVE NEGATIVE Urine Cannabinoids Screen POSITIVE H NEGATIVE My Orders Orders - MIAN DILLARD MD Cbc With Automated Diff (09/23/21 14:07) Comprehensive Metabolic Panel (09/23/21 14:07) Drug Screen Stat (Urine) (09/23/21 14:07) Ua Culture If Indicated (09/23/21 14:07) Troponin I Fs (09/23/21 14:07) Chest 1 View Ap/Pa Only (09/23/21 14:07) Ct Head Wo (09/23/21 14:07) Valproic Acid (09/23/21 14:10) Albuterol/Ipra Inhalation Soln (Duoneb I (09/23/21 15:30) Svn Small Volume Nebulizer (09/23/21 15:21) Medications Given in ED Current Medications Medications Dose Ordered Sig/Yoselyn Route Start Time Stop Time Status Last Admin Dose Admin Albuterol/ Ipratropium 3 ml ONCE ONCE INH 09/23/21 15:30 09/23/21 15:31 DC 09/23/21 15:31 3 ML Vital Signs/I&O 09/23/21 13:49 Temp 36.9 Pulse 107 Resp 13 B/P (MAP) 132/79 (96) Pulse Ox 92 O2 Delivery Room Air Capillary Refill : Progress Note : Progress Note 1. SYNCOPE: - CT HEAD: unremarkable - EKG: unremarkable - CXR: possible infiltrates vs atelectasis, prescription for azithromycin for 3 days. - Labs: unremarkable - Troponin normal - UA negative - UDS positive fro marijuana the patient was seen in the ED, and treated appropriately to presentation at a specific point in time. Patient is informed that there is a possibility that disease and illness can evolve and change in acuity rapidly or slowly after patient is discharged from the ER. Precautionary advice given to the patient for immediate return to ER if symptoms worsen or do not resolve, and to seek emergency care sooner rather than later. Pt also advised on the importance of PCP follow up and compliance with management and follow up plan. Pt verbally expressed understanding. - F/u with PCP, Psychiatry, and Neurology - Diagnostic Imaging Diagonstic Imaging: Xray, CT Plain Films/CT/US/NM/MRI: chest, head Comments NAME: DOMINIQUE PINEDA [facility] REC#: [id number] PT STATUS: REG ER : 1965 PHYSICIAN: MIAN DILLARD MD ADMIT DATE: 09/23/21/ER FS Draft Date of Exam:09/23/21 CT HEAD WO PROCEDURE: CT head without contrast. TECHNIQUE: Multiple contiguous axial images were obtained through the brain without the use of intravenous contrast. Auto Exposure Controls were utilized during the CT exam to meet ALARA standards for radiation dose reduction. INDICATION: Seizure. COMPARISON: Comparison is made with head CT from 03/15/2021. FINDINGS: Ventricles and sulci are within normal limits. No sulcal effacement or midline shift is identified. No acute intra-axial or extra-axial hemorrhage is detected. Cisterns are patent. Visualized paranasal sinuses demonstrate near-complete opacification of the left maxillary sinus. IMPRESSION: 1. No acute intracranial process detected. 2. Left maxillary sinusitis. Dictated on workstation # [id number] Dict: 09/23/21 1440 Trans: 09/23/21 1444 [id number] Interpreted by: BANDAR COSTA MD Electronically signed by: [place] NAME: DOMINIQUE PINEDA [facility] REC#: [id number] PT STATUS: REG ER : 1965 PHYSICIAN: MIAN DILLARD MD ADMIT DATE: 09/23/21/ER FS Draft Date of Exam:09/23/21 CHEST 1 VIEW AP/PA ONLY CLINICAL INDICATION: First time possible seizure. EXAM: Portable chest x-ray, upright view. COMPARISON: Chest x-ray dated 06/25/2021. FINDINGS: Imufln-i-Txue is again seen overlying the left chest. Lungs/pleura: There is interval development of minimal-sized airspace opacities in both lung bases, which may represent atelectasis and/or infiltrate. This is superimposed upon increased lung markings. There is no pneumothorax. There is no pleural effusion. Mediastinum: Unremarkable. Pulmonary vasculature: Unremarkable. Heart: Unremarkable. Bones/extrathoracic soft tissue: Unremarkable. IMPRESSION: There is interval development of subtle airspace opacities involving both lung bases, which may represent atelectasis and/or infiltrate. Dictated on workstation # [id number] Dict: 09/23/21 1451 Trans: 09/23/21 1500 [id number] Interpreted by: BRIANA BRITO MD Electronically signed by: Departure Impression Primary Impression: Syncope Qualified Codes: R55 - Syncope and collapse Additional Impression: CAP (community acquired pneumonia) Qualified Codes: J18.9 - Pneumonia, unspecified organism Disposition: 01 HOME, SELF-CARE Condition: Stable Departure-Patient Inst. Referrals: SACHIN MARQUEZ APRN (PCP) Primary Care Physician [facility] (Family) Primary Care Physician Patient Instructions: Syncope (Fainting) (DC) Add. Discharge Instructions: F/u with PCP and Neurology and Psychiatry -The patient was seen in the ED, and treated appropriately to presentation at a specific point in time. Patient is informed that there is a possibility that disease and illness can evolve and change in acuity rapidly or slowly after patient is discharged from the ER. Precautionary advice given to the patient for immediate return to ER if symptoms worsen or do not resolve, and to seek emergency care sooner rather than later. Pt also advised on the importance of PCP follow up and compliance with management and follow up plan. Pt verbally expressed understanding. All discharge instructions reviewed with patient and/or family. Voiced understanding. Scripts Azithromycin (Azithromycin) 500 Mg Tablet 500 MG PO DAILY for 3 Days, #3 TAB Prov: MIAN DILLARD MD 09/23/21 MIAN DILLARD MD Sep 23, 2021 13:59
[2021-09-23 14:20] LABS: BASOPHILS # (AUTO) 0.1 10^3/uL (0.0-0.1); BASOPHILS % (AUTO) 1 % (0-10); EOSINOPHILS # (AUTO) 0.2 10^3/uL (0.0-0.3); EOSINOPHILS % (AUTO) 2 % (0-10); HEMATOCRIT 35 % (35-52); HEMOGLOBIN 11.1 g/dL (11.5-16.0); LYMPHOCYTES # (AUTO) 3.3 10^3/uL (1.0-4.0); LYMPHOCYTES % (AUTO) 40 % (12-44); MEAN CORPUSCULAR HEMOGLOBIN 27 pg (25-34); MEAN CORPUSCULAR HGB CONC 31 g/dL (32-36); MEAN CORPUSCULAR VOLUME 86 fL (80-99); MEAN PLATELET VOLUME 10.5 fL (9.0-12.2); MONOCYTES # (AUTO) 0.6 10^3/uL (0.0-1.0); MONOCYTES % (AUTO) 7 % (0-12); NEUTROPHILS # (AUTO) 4.1 10^3/uL (1.8-7.8); NEUTROPHILS % (AUTO) 50 % (42-75); PLATELET COUNT 231 10^3/uL (130-400); WHITE BLOOD COUNT 8.3 10^3/uL (4.3-11.0)
[2021-09-23 14:39] LABS: ALKALINE PHOSPHATASE 125 U/L (40-136); BILIRUBIN,TOTAL 0.2 MG/DL (0.1-1.0); BUN/CREATININE RATIO 9; CALCIUM 9.1 MG/DL (8.5-10.1); CARBON DIOXIDE 22 MMOL/L (21-32); CHLORIDE 100 MMOL/L (98-107); CREATININE SERUM 0.88 MG/DL (0.60-1.30); GFR ESTIMATED 78; GLUCOSE 191 MG/DL (70-105); POTASSIUM 3.9 MMOL/L (3.6-5.0); SODIUM 133 MMOL/L (135-145)
[2021-09-23 14:40] LABS: ALANINE AMINOTRANSFERASE 33 U/L (0-55); ALBUMIN 3.9 GM/DL (3.2-4.5)
--- NOTE | 2021-09-23 14:44 | Diagnostic Imaging Report ---
PROCEDURE: CT head without contrast. TECHNIQUE: Multiple contiguous axial images were obtained through the brain without the use of intravenous contrast. Auto Exposure Controls were utilized during the CT exam to meet ALARA standards for radiation dose reduction. INDICATION: Seizure. COMPARISON: Comparison is made with head CT from 03/15/2021. FINDINGS: Ventricles and sulci are within normal limits. No sulcal effacement or midline shift is identified. No acute intra-axial or extra-axial hemorrhage is detected. Cisterns are patent. Visualized paranasal sinuses demonstrate near-complete opacification of the left maxillary sinus. IMPRESSION: 1. No acute intracranial process detected. 2. Left maxillary sinusitis. Dictated by: Dictated on workstation # [id number]
--- NOTE | 2021-09-23 15:00 | Diagnostic Imaging Report ---
CLINICAL INDICATION: First time possible seizure. EXAM: Portable chest x-ray, upright view. COMPARISON: Chest x-ray dated 06/25/2021. FINDINGS: Pxedxh-e-Dqkh is again seen overlying the left chest. Lungs/pleura: There is interval development of minimal-sized airspace opacities in both lung bases, which may represent atelectasis and/or infiltrate. This is superimposed upon increased lung markings. There is no pneumothorax. There is no pleural effusion. Mediastinum: Unremarkable. Pulmonary vasculature: Unremarkable. Heart: Unremarkable. Bones/extrathoracic soft tissue: Unremarkable. IMPRESSION: There is interval development of subtle airspace opacities involving both lung bases, which may represent atelectasis and/or infiltrate. Dictated by: Dictated on workstation # [id number]
[2021-09-23 15:20] LABS: BILIRUBIN,URINE NEGATIVE (NEGATIVE); CLARITY,URINE CLEAR; COLOR,URINE YELLOW; GLUCOSE, URINE (UA) NEGATIVE (NEGATIVE); KETONES,URINE NEGATIVE (NEGATIVE); LEUKOCYTE ESTERASE ,URINE NEGATIVE (NEGATIVE); NITRITE,URINE NEGATIVE (NEGATIVE); PROTEIN,URINE NEGATIVE (NEGATIVE)
[2021-09-23 15:25] LABS: BACTERIA,URINE FEW /HPF; YEAST,URINE FEW /HPF
[2021-09-23] MEDS ORDERED: RT-ALBUTEROL/IPRATROPIUM 3 ML (DUONEB) VIAL INH ONE (15:30)
[2021-09-23 15:31] LABS: AMPHETAMINE SCREEN, URINE NEGATIVE (NEGATIVE); BARBITURATE SCREEN URINE NEGATIVE (NEGATIVE); BENZODIAZEPINES SCREEN URINE NEGATIVE (NEGATIVE); CANNABINOID SCREEN, URINE POSITIVE (NEGATIVE); COCAINE SCREEN URINE NEGATIVE (NEGATIVE); METHADONE STAT NEGATIVE (NEGATIVE); METHAMPHETAMINE SCREEN URINE S NEGATIVE (NEGATIVE); OPIATE SCREEN URINE NEGATIVE (NEGATIVE); OXYCODONE STAT NEGATIVE (NEGATIVE); PROPOXYPHENE STAT NEGATIVE (NEGATIVE); TRICYCLIC ANTIDEPRESSANTS SCRE NEGATIVE (NEGATIVE)
[2021-09-23] MEDS ORDERED: AZIT500T9 PO (16:04)
[2021-09-23 16:10] VITALS: BP 105/61
[2021-09-23 23:53] LABS: VALPROIC ACID < 2.0 UG/ML (50.0-100.0)
== END 2021-09-23 16:10 | disposition home or self-care (01) ==
LOC: EDUNIT# 13:49 → ER FS 13:51
DX: R55 Syncope and collapse (principal); J18.9 Pneumonia, unspecified organism; F12.10 Cannabis abuse, uncomplicated; F17.210 Nicotine dependence, cigarettes, uncomplicated
CPT/HCPCS: 36415; 70450; 71045; 80053; 80164; 80306; 81000; 84484; 85025

== ENCOUNTER 2021-11-26 17:05 | Emergency (ER) | payer MEDICARE, MEDICAID ==
[~2021-11-26] VITALS: Ht 170.2 cm; Wt 109.0 kg
[~2021-11-26 17:05] MED LIST changes: +AZIT500T9 PO
[2021-11-26 17:08] VITALS: BP 153/78
--- NOTE | 2021-11-26 17:36 | ED Fall/Injury ---
General Chief Complaint: Trauma-Non Activation Stated Complaint: FALL Nursing Triage Note: Patient reports she tripped over a curb and fell, landing on her right side. She reports pain in her right head, shoulder, back, hip, and leg. Source: patient Exam Limitations: no limitations History of Present Illness Date Seen by Provider: November 26, 2021 Time Seen by Provider: 17:09 Initial Comments 56-year-old female with past medical history of diabetes, COPD, hypertension, prior ovarian cancer coming in via EMS after she slipped on a curb landing on her sacrum and then hitting her head. She did not pass out. She has been ambulatory. She has some pain in her sacrum that is mild, constant, throbbing, worse with movement, better with rest. She had a headache, but she says it is gone now. She is otherwise denying any other acute complaints. She does endorse a small scrape to her right elbow, tetanus up-to-date. Allergies and Home Medications Allergies Coded Allergies: diphenhydramine (Unverified Allergy, Unknown, 05/05/21) Patient Home Medication List Home Medication List Reviewed: Yes Acetaminophen (Tylenol Extra Strength) 500 Mg Tablet, 1,000 MG PO Q6H PRN for PAIN-MILD (1-4), (Reported) Entered as Reported by: GOLDIE SMITH on 03/09/21 0912 Acetaminophen/Diphenhydramine (Tylenol Pm Ex-Strength Caplet) 1 Each Tablet, 1-2 EACH PO HS PRN for SLEEP, (Reported) Entered as Reported by: KENNY XIAO on 03/16/21 1058 Albuterol Sulfate (Proair Hfa) 1 Puff Puff, 2 PUFF IH Q4H PRN for SHORTNESS OF BREATH, (Reported) Entered as Reported by: GOLDIE SMITH on 05/24/20 1023 Amoxicillin/Potassium Clav (Augmentin 875-125 Tablet) 1 Each Tablet, 1 EACH PO BID Prescribed by: POLA WEBB on 06/20/21 1303 Azithromycin (Azithromycin) 500 Mg Tablet, 500 MG PO DAILY Prescribed by: MIAN DILLARD MD on 09/23/21 1604 Benzonatate (Tessalon Perles) 100 Mg Capsule, 100 MG PO TID PRN for COUGH, (Reported) Entered as Reported by: GOLDIE SMITH on 03/09/21 0912 Colestipol HCl (Colestipol HCl) 1 Gm Tablet, 1 GM PO DAILY, (Reported) Entered as Reported by: GOLDIE SMITH on 03/09/21 09 Escitalopram Oxalate (Escitalopram Oxalate) 20 Mg Tablet, 40 MG PO DAILY, (Reported) Entered as Reported by: GOLDIE SMITH on 05/24/20 1016 Fluconazole (Diflucan) 150 Mg Tablet, 150 MG PO ONCE PRN for one today and one in 7 days Prescribed by: POLA WEBB on 06/20/21 1330 Fluconazole (Fluconazole) 200 Mg Tablet, 200 MG PO DAILY Prescribed by: DIANE DELCID on 06/29/21 1144 Fluticasone Propion/Salmeterol (Fluticasone-Salmeterol 250-50) 1 Each Blst.w.dev, 1 PUFF INH DAILY, (Reported) Entered as Reported by: GOLDIE SMITH on 05/24/20 1023 Gabapentin (Gabapentin) 100 Mg Capsule, 100 MG PO HS, (Reported) Entered as Reported by: GOLDIE SMITH on 05/24/20 1016 Insulin Aspart (Novolog Flexpen) 300 Units/3 Ml Solution, 25 UNITS SC WM, (Reported) Entered as Reported by: KENNY XIAO on 03/16/21 1058 Insulin Degludec (Tresiba Flextouch U-200) 200 Unit/1 Ml Insuln.pen, 126 UNITS SQ DAILY, (Reported) Entered as Reported by: GOLDIE SMITH on 03/09/21 0933 Ipratropium Sharples (Atrovent Hfa) 12.9 Gm Aers, 2 PUFF IH DAILY PRN for SHORTNESS OF BREATH, (Reported) Entered as Reported by: GOLDIE SMITH on 03/09/21 0912 Loratadine (Claritin) 10 Mg Tablet, 10 MG PO DAILY, (Reported) Entered as Reported by: GOLDIE SMITH on 05/24/20 1025 Menthol (Activice) 118 Ml [place], 1 APPLIC TP UD PRN for PAIN-BREAKTHROUGH, (Reported) Entered as Reported by: KENNY XIAO on 03/16/21 1058 Metformin HCl (Metformin HCl ER) 500 Mg Tab.er.24, 1,000 MG PO 1800, (Reported) Entered as Reported by: KENNY XIAO on 03/16/21 1058 Mirabegron (Myrbetriq) 25 Mg Tab.er.24h, 25 MG PO DAILY, (Reported) Entered as Reported by: GOLDIE SMITH on 05/24/20 1016 Montelukast Sodium (Singulair) 10 Mg Tablet, 10 MG PO DAILY, (Reported) Entered as Reported by: GOLDIE SMITH on 05/24/20 1024 Nebivolol HCl (Bystolic) 10 Mg Tab, 10 MG PO DAILY, (Reported) Entered as Reported by: GOLDIE SMITH on 03/09/21 0933 Olanzapine (Olanzapine) 10 Mg Tablet, 10 MG PO HS, (Reported) Entered as Reported by: JOSHUA BUITRAGO on 03/24/19 1158 Promethazine HCl (Promethazine Tablet) 25 Mg Tablet, 12.5 MG PO Q6H PRN for NAUSEA/VOMITING, (Reported) Entered as Reported by: GOLDIE SMITH on 03/09/21 09 Roflumilast (Daliresp) 500 Mcg Tablet, 500 MCG PO DAILY, (Reported) Entered as Reported by: GOLDIE SMITH on 03/09/21 0912 Semaglutide (Ozempic) 1 Mg/0.75 Ml Pen.injctr, 1 MG INJ SUNDAY, (Reported) Entered as Reported by: GOLDIE SMITH on 03/09/21 09 Simethicone (Simethicone) 180 Mg Capsule, 180 MG PO UD PRN for STOMACH UPSET, (Reported) Entered as Reported by: GOLDIE SMITH on 03/09/21911 Tramadol HCl (Tramadol HCl) 50 Mg Tablet, 50 MG PO Q6H PRN for PAIN-MODERATE (5- 7), (Reported) Entered as Reported by: KENNY XIAO on 03/16/21 105 Ziprasidone HCl (Ziprasidone HCl) 80 Mg Capsule, 160 MG PO HS, (Reported) Entered as Reported by: KENNY XIAO on 03/16/21 105 Review of Systems Review of Systems Constitutional: No fever Eyes: Denies Blurred Vision Ears, Nose, Mouth, Throat: no symptoms reported Respiratory: no symptoms reported Cardiovascular: no symptoms reported Gastrointestinal: no symptoms reported Genitourinary: no symptoms reported Musculoskeletal: back pain Skin: no symptoms reported Psychiatric/Neurological: No Symptoms Reported All Other Systems Reviewed Negative Unless Noted: Yes Past Fvlywlt-Elxalu-Xlyurm Hx Patient Social History Tobacco Use?: No Substance use?: No Alcohol Use?: No Pt feels they are or have been: No Immunizations Up To Date First/Initial COVID19 Vaccinat: OCTOBER 2020 Second COVID19 Vaccination [place]: OCTOBER 2020 Third COVID19 Vaccination Date: January 2021 Seasonal Allergies Seasonal Allergies: No Past Medical History Surgery/Hospitalization HX: DM, COPD Surgeries: Yes Bladder Surgery, Gallbladder, Hysterectomy, Tonsillectomy Respiratory: Yes Asthma, COPD Currently Using CPAP: No Currently Using BIPAP: No Cardiac: Yes High Cholesterol, Hypertension Neurological: No [employer] History: Hysterectomy Genitourinary: Yes (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 had recent axilla abscess) Recent Skin Changes Blood Disorders: Yes (HEP C) Adverse Reaction/Blood Tranf: No Family Medical History Heart Disease, Cancer, CVA, Other Conditions/Hx Physical Exam Vital Signs Vital Signs - First Documented 11/26/21 17:08 Temp 36.8 Pulse 87 Resp 20 B/P (MAP) 153/78 (103) Pulse Ox 95 O2 Delivery Room Air Capillary Refill : Less Than 3 Seconds Height, Weight, BMI Height: 5'7.00" Weight: 224lbs. 0.0oz. 101.594742ks; 37.00 BMI Method:Actual General Appearance: WD/WN, no apparent distress HEENT: PERRL/EOMI, normal ENT inspection, pharynx normal Neck: non-tender, full range of motion, supple, normal inspection Cardiovascular: regular rate, rhythm, no edema, no murmur Respiratory: chest non-tender, lungs clear, normal breath sounds, no respiratory distress, no accessory muscle use Gastrointestinal: normal bowel sounds, non tender, soft; No distended, No guarding, No rebound Back: normal inspection, no CVA tenderness, no vertebral tenderness, other (Sacral tenderness around her coccyx) Extremities: normal range of motion, non-tender, normal inspection, no pedal edema, no calf tenderness, normal capillary refill Neurologic/Psychiatric: no motor/sensory deficits, alert, normal mood/affect, oriented x 3 Skin: normal color, warm/dry Lymphatic: no adenopathy Marta Coma Score Best Eye Response: (4) Open Spontaneously Best Verbal Response: (5) Oriented Best Motor Response: (6) Obeys Commands Progress/Results/Core Measures Results/Orders My Orders Orders - LEIDY YIP MD Ct Head Wo (11/26/21 17:33) Sacrum & Coccyx (11/26/21 17:33) Acetaminophen Tablet (Tylenol Tablet) (11/26/21 17:45) Medications Given in ED Current Medications Medications Dose Ordered Sig/Yoselyn Route Start Time Stop Time Status Last Admin Dose Admin Acetaminophen 1,000 mg ONCE ONCE PO 11/26/21 17:45 11/26/21 17:46 DC 11/26/21 17:48 1,000 MG Vital Signs/I&O 11/26/21 17:08 Temp 36.8 Pulse 87 Resp 20 B/P (MAP) 153/78 (103) Pulse Ox 95 O2 Delivery Room Air Blood Pressure Mean: 103 Progress Progress Note : Progress Note 56-year-old female with above history coming in after mechanical fall landing on her bottom and then hitting her head. ABCs were intact, GCS 15, vital stable on presentation. Physical exam with some mild coccyx tenderness. X-ray of sacrum and coccyx negative. CT head normal. She is ambulating and tolerating p.o. I believe she is stable for discharge with outpatient follow-up. She was sent home with strict return precautions. Diagnostic Imaging Diagonstic Imaging: Xray (coccyx and sacrum), CT (head) Comments NAME: DOMINIQUE PINEDA [facility] REC#: [id number] PT STATUS: REG ER : 1965 PHYSICIAN: LEIDY YIP MD ADMIT DATE: 11/26/21/ER FS Draft Date of Exam:11/26/21 CT HEAD WO PROCEDURE: CT head without contrast. TECHNIQUE: Multiple contiguous axial images were obtained through the brain without the use of intravenous contrast. Auto Exposure Controls were utilized during the CT exam to meet ALARA standards for radiation dose reduction. INDICATION: 56-year-old female, status post fall, hit head, pain. CORRELATION: 09/23/2021 FINDINGS: There is no midline shift or mass effect. The ventricles and sulci are unremarkable. No evidence for acute intracranial hemorrhage, abnormal extra-axial fluid collections or cerebral edema is present. The basilar cisterns are unremarkable. The bony calvarium is intact. Incomplete closure posterior C1 arch, likely developmental variant. Scattered mucosal thickening particularly at the left maxillary sinus along with polyp/cyst right maxillary sinus. IMPRESSION: Negative for acute traumatic abnormality of the head. Likely chronic left maxillary sinusitis. Dictated on workstation # [id number] Dict: 11/26/211818 Trans: 11/26/211820 DO [id number] Interpreted by: LUIS FELIX DO Electronically signed by: NAME: DOMINIQUE PINEDA [facility] REC#: [id number] PT STATUS: REG ER : 1965 PHYSICIAN: LEIDY YIP MD ADMIT DATE: 11/26/21/ER FS Draft Date of Exam:11/26/21 SACRUM & COCCYX EXAMINATION: Radiographs of the sacrum and coccyx, 4 views. COMPARISON: CT chest, abdomen and pelvis September 13, 2021. HISTORY: 56-year-old female, fall, sacral and coccygeal pain. FINDINGS: There is grade 1 anterolisthesis of L5 on S1 measuring 6 mm. There is severe disc height loss at L3-L4 with adjacent endplate degenerative changes. There are additional endplate degenerative related changes of the lumbar spine. The sacroiliac joints and pubic symphysis are normally aligned. There is no identified acute fracture. IMPRESSION: 1. No radiographically apparent sacral fracture. If there is persistent high clinical concern, further evaluation with CT imaging would be recommended. 2. Multilevel degenerative changes of the lumbar spine most notably present at L3-L4. Dictated on workstation # [id number] Dict: 11/26/211818 Trans: 11/26/211822 PJE [id number] Interpreted by: PURA BAILON MD Electronically signed by: Departure Impression Primary Impression: Fall Qualified Codes: W19.XXXA - Unspecified fall, initial encounter Additional Impression: Tailbone injury Qualified Codes: S39.92XA - Unspecified injury of lower back, initial encounter Disposition: HOME, SELF-CARE Condition: Stable Departure-Patient Inst. Decision time for Depature: 18:28 Referrals: SACHIN MARQUEZ APRN (PCP) Primary Care Physician [facility] (Family) Primary Care Physician Patient Instructions: Preventing Falls ED, Minor Head Injury (DC) Add. Discharge Instructions: Fortunately nothing is broken, you just have deep bruises. Take ibuprofen and/or Tylenol as needed for pain. You can also use ice. Follow-up with your regular doctor if things are not improving. LEIDY YIP MD November 26, 2021 17:36
[2021-11-26] MEDS ORDERED: ACETAMINOPHEN 500 MG TAB (TYLENOL) PO ONE (17:45)
--- NOTE | 2021-11-26 18:22 | Diagnostic Imaging Report ---
PROCEDURE: CT head without contrast. TECHNIQUE: Multiple contiguous axial images were obtained through the brain without the use of intravenous contrast. Auto Exposure Controls were utilized during the CT exam to meet ALARA standards for radiation dose reduction. INDICATION: 56-year-old female, status post fall, hit head, pain. CORRELATION: 09/23/2021 FINDINGS: There is no midline shift or mass effect. The ventricles and sulci are unremarkable. No evidence for acute intracranial hemorrhage, abnormal extra-axial fluid collections or cerebral edema is present. The basilar cisterns are unremarkable. The bony calvarium is intact. Incomplete closure posterior C1 arch, likely developmental variant. Scattered mucosal thickening particularly at the left maxillary sinus along with polyp/cyst right maxillary sinus. IMPRESSION: Negative for acute traumatic abnormality of the head. Likely chronic left maxillary sinusitis. Dictated by: Dictated on workstation # [id number]
--- NOTE | 2021-11-26 18:24 | Diagnostic Imaging Report ---
EXAMINATION: Radiographs of the sacrum and coccyx, 4 views. COMPARISON: CT chest, abdomen and pelvis September 13, 2021. HISTORY: 56-year-old female, fall, sacral and coccygeal pain. FINDINGS: There is grade 1 anterolisthesis of L5 on S1 measuring 6 mm. There is severe disc height loss at L3-L4 with adjacent endplate degenerative changes. There are additional endplate degenerative related changes of the lumbar spine. The sacroiliac joints and pubic symphysis are normally aligned. There is no identified acute fracture. IMPRESSION: 1. No radiographically apparent sacral fracture. If there is persistent high clinical concern, further evaluation with CT imaging would be recommended. 2. Multilevel degenerative changes of the lumbar spine most notably present at L3-L4. Dictated by: Dictated on workstation # [id number]
== END 2021-11-26 18:51 | disposition home or self-care (01) ==
LOC: ER FS 17:06 → EDUNIT# 17:18 → ER FS 18:51
DX: S39.92XA Unspecified injury of lower back, initial encounter (principal); E11.9 Type 2 diabetes mellitus without complications; Z79.4 Long term (current) use of insulin; W01.0XXA Fall on same level from slipping, tripping and stumbling without subsequent striking against object, initial encounter; Y92.480 Sidewalk as the place of occurrence of the external cause
CPT/HCPCS: 70450; 72220; 99283

== ENCOUNTER 2021-12-26 09:30 | Emergency (ER) | payer MEDICARE, MEDICAID ==
[~2021-12-26] VITALS: Ht 170 cm; Wt 100.0 kg
[2021-12-26 09:34] VITALS: BP 132/75
--- NOTE | 2021-12-26 09:42 | ED Upper Extremity ---
General Chief Complaint: Upper Extremity Stated Complaint: LT SHOULDER PAIN; PAIN AT PORT SITE History of Present Illness Date Seen by Provider: Dec 26, 2021 Time Seen by Provider: 09:41 Initial Comments 56-year-old female with PMH of renal cancer/diabetes, is here with complaints of pain to the left chest wall in the area of her port. Port has been in place for the past 3 years and not used in that time.. Patient started having pain in the port area which radiates up to her collarbone. Denies fever, nausea and vomiting, chest pain, shortness of breath, palpitations, neck pain or headache. Allergies and Home Medications Allergies Coded Allergies: diphenhydramine (Unverified Allergy, Unknown, 05/05/21) Patient Home Medication List Home Medication List Reviewed: Yes Acetaminophen (Tylenol Extra Strength) 500 Mg Tablet, 1,000 MG PO Q6H PRN for PAIN-MILD (1-4), (Reported) Entered as Reported by: GOLDIE SMITH on 03/09/21 0912 Acetaminophen/Diphenhydramine (Tylenol Pm Ex-Strength [place]) 1 Each Tablet, 1-2 EACH PO HS PRN for SLEEP, (Reported) Entered as Reported by: KENNY XIAO on 03/16/21 1058 Albuterol Sulfate (Proair Hfa) 1 Puff Puff, 2 PUFF IH Q4H PRN for SHORTNESS OF BREATH, (Reported) Entered as Reported by: GOLDIE SMITH on 05/24/20 1023 Amoxicillin/Potassium Clav (Augmentin 875-125 Tablet) 1 Each Tablet, 1 EACH PO BID Prescribed by: POLA WEBB on 06/20/21 1303 Azithromycin (Azithromycin) 500 Mg Tablet, 500 MG PO DAILY Prescribed by: MIAN DILLARD MD on 09/23/21 1604 Benzonatate (Tessalon Perles) 100 Mg Capsule, 100 MG PO TID PRN for COUGH, (Reported) Entered as Reported by: GOLDIE SMITH on 03/09/21 0912 Colestipol HCl (Colestipol HCl) 1 Gm Tablet, 1 GM PO DAILY, (Reported) Entered as Reported by: GOLDIE SMITH on 03/09/21 0912 Escitalopram Oxalate (Escitalopram Oxalate) 20 Mg Tablet, 40 MG PO DAILY, (Reported) Entered as Reported by: GOLDIE SMITH on 05/24/20 1016 Fluconazole (Diflucan) 150 Mg Tablet, 150 MG PO ONCE PRN for one today and one in 7 days Prescribed by: POLA WEBB on 06/20/21 1330 Fluconazole (Fluconazole) 200 Mg Tablet, 200 MG PO DAILY Prescribed by: DIANE DELCID on 06/29/21 1144 Fluticasone Propion/Salmeterol (Fluticasone-Salmeterol 250-50) 1 Each Blst.w.dev, 1 PUFF INH DAILY, (Reported) Entered as Reported by: GOLDIE SMITH on 05/24/20 1023 Gabapentin (Gabapentin) 100 Mg Capsule, 100 MG PO HS, (Reported) Entered as Reported by: GOLDIE SMITH on 05/24/20 1016 Insulin Aspart (Novolog Flexpen) 300 Units/3 Ml Solution, 25 UNITS SC WM, (Reported) Entered as Reported by: KENNY XIAO on 03/16/21 1058 Insulin Degludec (Tresiba Flextouch U-200) 200 Unit/1 Ml Insuln.pen, 126 UNITS SQ DAILY, (Reported) Entered as Reported by: GOLDIE SMITH on 03/09/21 0933 Ipratropium [place] (Atrovent Hfa) 12.9 Gm Aers, 2 PUFF IH DAILY PRN for SHORTNESS OF BREATH, (Reported) Entered as Reported by: GOLDIE SMITH on 03/09/21 0912 Loratadine (Claritin) 10 Mg Tablet, 10 MG PO DAILY, (Reported) Entered as Reported by: GOLDIE SMITH on 05/24/20 1025 Menthol (Activice) 118 Ml [place], 1 APPLIC TP UD PRN for PAIN-BREAKTHROUGH, (Reported) Entered as Reported by: KENNY XIAO on 03/16/21 1058 Metformin HCl (Metformin HCl ER) 500 Mg Tab.er.24, 1,000 MG PO 1800, (Reported) Entered as Reported by: KENNY XIAO on 03/16/21 1058 Mirabegron (Myrbetriq) 25 Mg Tab.er.24h, 25 MG PO DAILY, (Reported) Entered as Reported by: GOLDIE SMITH on 05/24/20 1016 Montelukast Sodium (Singulair) 10 Mg Tablet, 10 MG PO DAILY, (Reported) Entered as Reported by: GOLDIE SMITH on 05/24/20 1024 Nebivolol HCl (Bystolic) 10 Mg Tab, 10 MG PO DAILY, (Reported) Entered as Reported by: GOLDIE SMITH on 03/09/21 09 Olanzapine (Olanzapine) 10 Mg Tablet, 10 MG PO HS, (Reported) Entered as Reported by: JOSHUA BUITRAGO on 03/24/19 1158 Promethazine HCl (Promethazine Tablet) 25 Mg Tablet, 12.5 MG PO Q6H PRN for NAUSEA/VOMITING, (Reported) Entered as Reported by: GOLDIE SMITH on 03/09/21 09 Roflumilast (Daliresp) 500 Mcg Tablet, 500 MCG PO DAILY, (Reported) Entered as Reported by: GOLDIE SMITH on 03/09/21 09 Semaglutide (Ozempic) 1 Mg/0.75 Ml Pen.injctr, 1 MG INJ SUNDAY, (Reported) Entered as Reported by: GOLDIE SMITH on 03/09/21 09 Simethicone (Simethicone) 180 Mg Capsule, 180 MG PO UD PRN for STOMACH UPSET, (Reported) Entered as Reported by: GOLDIE SMITH on 03/09/21 09 Tramadol HCl (Tramadol HCl) 50 Mg Tablet, 50 MG PO Q6H PRN for PAIN-MODERATE (5- 7), (Reported) Entered as Reported by: KENNY XIAO on 03/16/21 105 Ziprasidone HCl (Ziprasidone HCl) 80 Mg Capsule, 160 MG PO HS, (Reported) Entered as Reported by: KENNY XIAO on 03/16/21 1058 Review of Systems Constitutional: no symptoms reported EENTM: no symptoms reported Respiratory: no symptoms reported Cardiovascular: other (port site pain onleft chest wall) Gastrointestinal: no symptoms reported Genitourinary: no symptoms reported Musculoskeletal: no symptoms reported Skin: no symptoms reported Psychiatric/Neurological: No Symptoms Reported Past Rmvsxtf-Vabtza-Sqopsg Hx Immunizations Up To Date First/Initial COVID19 Vaccinat: OCTOBER 2020 Second COVID19 Vaccination [place]: OCTOBER 2020 Third COVID19 Vaccination Date: January 2021 Seasonal Allergies Seasonal Allergies: No Past Medical History Surgery/Hospitalization HX: DM, COPD Surgeries: Yes Bladder Surgery, Gallbladder, Hysterectomy, Tonsillectomy Respiratory: Yes Asthma, COPD Currently Using CPAP: No Currently Using BIPAP: No Cardiac: Yes High Cholesterol, Hypertension Neurological: No [facility]WD[facility] D[facility]ER History: Hysterectomy Genitourinary: Yes (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 had recent axilla abscess) Recent Skin Changes Blood Disorders: Yes (HEP C) Adverse Reaction/Blood Tranf: No Family Medical History Heart Disease, Cancer, CVA, Other Conditions/Hx Physical Exam Vital Signs Vital Signs - First Documented 12/26/21 09:34 Temp 36.7 Pulse 106 Resp 16 B/P (MAP) 132/75 (94) Pulse Ox 94 O2 Delivery Room Air Capillary Refill : Height, Weight, BMI Height: 5'7.00" Weight: 224lbs. 0.0oz. 101.395266ac; 37.00 BMI Method:Actual General Appearance: WD/WN, no apparent distress HEENT: PERRL/EOMI Neck: non-tender, full range of motion, supple, normal inspection Cardiovascular: normal peripheral pulses, regular rate, rhythm, no edema Respiratory: lungs clear, normal breath sounds, no respiratory distress, other (left side chest wall has tenderness on palpation at the port site. No localized erythema or swelling seen at port site) Gastrointestinal: non tender, soft Back: normal inspection, no vertebral tenderness Shoulder: normal inspection, non-tender, no evidence of injury, normal ROM Neurologic/Psychiatric: no motor/sensory deficits, alert, normal mood/affect, oriented x 3 Skin: normal color Lymphatic: no adenopathy Progress/Results/Core Measures Results/Orders Lab Results Laboratory Tests Test 12/26/21 10:00 12/26/21 10:30 Range/Units White Blood Count 8.4 4.3-11.0 10^3/uL Red Blood Count 4.28 3.80-5.11 10^6/uL Hemoglobin 11.9 11.5-16.0 g/dL Hematocrit 36 35-52 % Mean Corpuscular Volume 84 80-99 fL Mean Corpuscular Hemoglobin 28 25-34 pg Mean Corpuscular Hemoglobin Concent 33 32-36 g/dL Red Cell Distribution Width 15.5 H 10.0-14.5 % Platelet Count 181 130-400 10^3/uL Mean Platelet Volume 10.3 9.0-12.2 fL Immature Granulocyte % (Auto) 0 % Neutrophils (%) (Auto) 73 42-75 % Lymphocytes (%) (Auto) 21 12-44 % Monocytes (%) (Auto) 5 0-12 % Eosinophils (%) (Auto) 0 0-10 % Basophils (%) (Auto) 1 0-10 % Neutrophils # (Auto) 6.1 1.8-7.8 10^3/uL Lymphocytes # (Auto) 1.8 1.0-4.0 10^3/uL Monocytes # (Auto) 0.4 0.0-1.0 10^3/uL Eosinophils # (Auto) 0.0 0.0-0.3 10^3/uL Basophils # (Auto) 0.0 0.0-0.1 10^3/uL Immature Granulocyte # (Auto) 0.0 0.0-0.1 10^3/uL Prothrombin Time 13.8 12.2-14.7 SEC INR Comment 1.0 0.8-1.4 Activated Partial Thromboplast Time 26 24-35 SEC D-Dimer 0.39 0.00-0.49 UG/ML Sodium Level 137 135-145 MMOL/L Potassium Level 3.6 3.6-5.0 MMOL/L Chloride Level 104 98-107 MMOL/L Carbon Dioxide Level 21 21-32 MMOL/L Anion Gap 12 5-14 MMOL/L Blood Urea Nitrogen 13 7-18 MG/DL Creatinine 0.88 0.60-1.30 MG/DL Estimat Glomerular Filtration Rate 78 BUN/Creatinine Ratio 15 Glucose Level 268 H 70-105 MG/DL Calcium Level 9.7 8.5-10.1 MG/DL Corrected Calcium 9.6 8.5-10.1 MG/DL Total Bilirubin 0.2 0.1-1.0 MG/DL Aspartate Amino Transf (AST/SGOT) 20 5-34 U/L Alanine Aminotransferase (ALT/SGPT) 24 0-55 U/L Alkaline Phosphatase 126 40-136 U/L Troponin I < 0.30 <0.30 NG/ML Total Protein 7.0 6.4-8.2 GM/DL Albumin 4.1 3.2-4.5 GM/DL Urine Color DARK YELLOW Urine Clarity SL CLOUDY Urine pH 6.0 5-9 Urine Specific [place] >=1.030 1.016-1.022 Urine Protein TRACE H NEGATIVE Urine Glucose (UA) NEGATIVE NEGATIVE Urine Ketones TRACE H NEGATIVE Urine Nitrite NEGATIVE NEGATIVE Urine Bilirubin 1+ H NEGATIVE Urine Urobilinogen 0.2 < = 1.0 MG/DL Urine Leukocyte Esterase NEGATIVE NEGATIVE Urine RBC (Auto) NEGATIVE NEGATIVE Urine RBC 0-2 /HPF Urine WBC 2-5 /HPF Urine Squamous Epithelial Cells 10-25 H /HPF Urine Crystals PRESENT H /LPF Urine Calcium Oxalate Crystals FEW H /LPF Urine Bacteria MODERATE H /HPF Urine Casts NONE /LPF Urine Mucus LARGE H /LPF Urine Yeast FEW H /HPF Urine Culture Indicated NO Urine Opiates Screen NEGATIVE NEGATIVE Urine Oxycodone Screen POSITIVE H NEGATIVE Urine Methadone Screen NEGATIVE NEGATIVE Urine Propoxyphene Screen NEGATIVE NEGATIVE Urine Barbiturates Screen NEGATIVE NEGATIVE Ur Tricyclic Antidepressants Screen NEGATIVE NEGATIVE Urine Phencyclidine Screen NEGATIVE NEGATIVE Urine Amphetamines Screen NEGATIVE NEGATIVE Urine Methamphetamines Screen NEGATIVE NEGATIVE Urine Benzodiazepines Screen NEGATIVE NEGATIVE Urine Cocaine Screen NEGATIVE NEGATIVE Urine Cannabinoids Screen POSITIVE H NEGATIVE My Orders Orders - MIAN DILLARD MD Cbc With Automated Diff (12/26/21 09:46) Comprehensive Metabolic Panel (12/26/21 09:46) Fibrin Degradation Products (12/26/21 09:46) Drug Screen Stat (Urine) (12/26/21 09:46) Protime With Inr (12/26/21 09:46) Partial Thromboplastin Time (12/26/21 09:46) Ua Culture If Indicated (12/26/21 09:46) Troponin I Fs (12/26/21 09:46) Chest 1 View Ap/Pa Only (12/26/21 09:47) Ketorolac Injection (Toradol Injection) (12/26/21 10:00) Medications Given in ED Current Medications Medications Dose Ordered Sig/Yoselyn Route Start Time Stop Time Status Last Admin Dose Admin Ketorolac Tromethamine 30 mg ONCE ONCE IM 12/26/21 10:00 12/26/21 10:01 DC 12/26/21 09:58 30 MG Vital Signs/I&O 12/26/21 09:34 Temp 36.7 Pulse 106 Resp 16 B/P (MAP) 132/75 (94) Pulse Ox 94 O2 Delivery Room Air Progress Progress Note : Progress Note 1. PORT SITE exam: No infection - CXR: normal - Labs normal, including WBC count - UA/ UDS positive for marijuana and opioids - Toradol 30mg im - Follow up with PCP -The patient was seen in the ED, and treated appropriately to presentation at a specific point in time. Patient is informed that there is a possibility that disease and illness can evolve and change in acuity rapidly or slowly after patient is discharged from the ER. Precautionary advice given to the patient for immediate return to ER if symptoms worsen or do not resolve, and to seek emergency care sooner rather than later. Pt also advised on the importance of PCP follow up and compliance with management and follow up plan with PCP and/or specialist, as this is part of the management plan. Pt verbally expressed understanding. Diagnostic Imaging Diagonstic Imaging: Xray Plain Films/CT/US/NM/MRI: chest Comments [facility] [place] [place], [place] NAME: DOMINIQUE PINEDA [facility] REC#: [id number] PT STATUS: REG ER : 1965 PHYSICIAN: MIAN DILLARD MD ADMIT DATE: 12/26/21/ER FS Draft Date of Exam:12/26/21 CHEST 1 VIEW AP/PA ONLY INDICATION: Port infection. TECHNIQUE/COMPARISON: A frontal chest was obtained at 9:51 AM and compared to 09/23/2021. FINDINGS: The heart and mediastinal silhouette are normal in appearance. The lungs are clear. There is no pneumothorax or pleural fluid. The Port-A-Cath is unchanged with the tip overlying the mid SVC. IMPRESSION: No acute process in the chest. Dictated on workstation # [id number] Dict: 12/26/21 0955 Trans: 12/26/21 0959 [id number] Interpreted by: KATRINA RAMIREZ MD Electronically signed by: Departure Impression Primary Impression: Normal exam Disposition: HOME, SELF-CARE Condition: Stable Departure-Patient Inst. Referrals: SACHIN MARQUEZ APRN (PCP) Primary Care Physician [facility] (Family) Primary Care Physician Add. Discharge Instructions: Follow up with PCP in the next 3 to 7 days, no signs of infection, and normal WBC All discharge instructions reviewed with patient and/or family. Voiced understanding. MIAN DILLARD MD Dec 26, 2021 09:42
[2021-12-26] MEDS ORDERED: KETOROLAC 30 MG/ML VIAL IM ONE (10:00)
--- NOTE | 2021-12-26 10:00 | Diagnostic Imaging Report ---
INDICATION: Port infection. TECHNIQUE/COMPARISON: A frontal chest was obtained at 9:51 AM and compared to 09/23/2021. FINDINGS: The heart and mediastinal silhouette are normal in appearance. The lungs are clear. There is no pneumothorax or pleural fluid. The Port-A-Cath is unchanged with the tip overlying the mid SVC. IMPRESSION: No acute process in the chest. Dictated by: Dictated on workstation # [id number]
[2021-12-26 10:26] LABS: BASOPHILS % (AUTO) 1 % (0-10); EOSINOPHILS % (AUTO) 0 % (0-10); HEMATOCRIT 36 % (35-52); HEMOGLOBIN 11.9 g/dL (11.5-16.0); LYMPHOCYTES # (AUTO) 1.8 10^3/uL (1.0-4.0); LYMPHOCYTES % (AUTO) 21 % (12-44); MEAN CORPUSCULAR HEMOGLOBIN 28 pg (25-34); MEAN CORPUSCULAR HGB CONC 33 g/dL (32-36); MEAN CORPUSCULAR VOLUME 84 fL (80-99); MEAN PLATELET VOLUME 10.3 fL (9.0-12.2); MONOCYTES # (AUTO) 0.4 10^3/uL (0.0-1.0); MONOCYTES % (AUTO) 5 % (0-12); NEUTROPHILS # (AUTO) 6.1 10^3/uL (1.8-7.8); NEUTROPHILS % (AUTO) 73 % (42-75); PLATELET COUNT 181 10^3/uL (130-400); WHITE BLOOD COUNT 8.4 10^3/uL (4.3-11.0)
[2021-12-26 10:40] LABS: CLARITY,URINE SL CLOUDY; GLUCOSE, URINE (UA) NEGATIVE (NEGATIVE); KETONES,URINE TRACE (NEGATIVE); LEUKOCYTE ESTERASE ,URINE NEGATIVE (NEGATIVE); NITRITE,URINE NEGATIVE (NEGATIVE); PROTEIN,URINE TRACE (NEGATIVE)
[2021-12-26 10:42] LABS: ALANINE AMINOTRANSFERASE 24 U/L (0-55); ALKALINE PHOSPHATASE 126 U/L (40-136); BILIRUBIN,TOTAL 0.2 MG/DL (0.1-1.0); BUN/CREATININE RATIO 15; CALCIUM 9.7 MG/DL (8.5-10.1); CARBON DIOXIDE 21 MMOL/L (21-32); CHLORIDE 104 MMOL/L (98-107); CREATININE SERUM 0.88 MG/DL (0.60-1.30); GFR ESTIMATED 78; GLUCOSE 268 MG/DL (70-105); POTASSIUM 3.6 MMOL/L (3.6-5.0); SODIUM 137 MMOL/L (135-145)
[2021-12-26 10:43] LABS: ALBUMIN 4.1 GM/DL (3.2-4.5)
[2021-12-26 10:44] LABS: FIBRIN DEGRADATION PRODUCTS 0.39 UG/ML (0.00-0.49); PROTHROMBIN TIME PATIENT 13.8 SEC (12.2-14.7)
[2021-12-26 10:56] LABS: AMPHETAMINE SCREEN, URINE NEGATIVE (NEGATIVE); BARBITURATE SCREEN URINE NEGATIVE (NEGATIVE); BENZODIAZEPINES SCREEN URINE NEGATIVE (NEGATIVE); CANNABINOID SCREEN, URINE POSITIVE (NEGATIVE); COCAINE SCREEN URINE NEGATIVE (NEGATIVE); METHADONE STAT NEGATIVE (NEGATIVE); OPIATE SCREEN URINE NEGATIVE (NEGATIVE); OXYCODONE STAT POSITIVE (NEGATIVE); PROPOXYPHENE STAT NEGATIVE (NEGATIVE); TRICYCLIC ANTIDEPRESSANTS SCRE NEGATIVE (NEGATIVE)
[2021-12-26 10:57] LABS: BACTERIA,URINE MODERATE /HPF; BILIRUBIN,URINE 1+ (NEGATIVE); COLOR,URINE DARK YELLOW; RBC,URINE 0-2 /HPF
[2021-12-26 10:58] LABS: CALCIUM OXALATE CRYSTALS,UR FEW /LPF; YEAST,URINE FEW /HPF
[2021-12-27] MEDS ORDERED: CYCL10TA25 PO (18:12)
== END 2021-12-26 11:46 | disposition home or self-care (01) ==
LOC: EDUNIT# 09:30 → ER FS 09:32
DX: G89.18 Other acute postprocedural pain (principal); R07.89 Other chest pain; E11.9 Type 2 diabetes mellitus without complications; Z79.4 Long term (current) use of insulin
CPT/HCPCS: 36415; 71045; 80053; 80306; 81000; 84484; 85025; 85379; 85610; 85730

== ENCOUNTER 2021-12-27 17:40 | Emergency (ER) | payer MEDICARE, MEDICAID ==
--- NOTE | 2021-12-27 17:53 | ED General ---
General Chief Complaint: Back Problems Stated Complaint: NECK/BACK PAIN Source of Information: Patient, Old Records History of Present Illness Date Seen by Provider: Dec 27, 2021 Time Seen by Provider: 17:51 Initial Comments 56-year-old female presenting with complaints of continued pain to her port site on the left upper chest wall. She was seen yesterday for the same complaint and had blood work as well as x-rays done. She states that the Toradol shot yesterday it helped her very stressed however she is out of tramadol for 10 more days. She has an appointment to see her primary care provider on since she has a pain contract with her. She was concerned because she was still having severe pain to the left upper chest wall and it was starting to cause her to have left shoulder pain. She denies having fever, chills, wheezing, cough, nausea, vomiting Severity: Moderate Modifying Factors: worse with Movement Associated Systoms: No Cough, No Diaphoresis, No Fever/Chills, No Headaches, No Loss of Appetite, No Malaise, No Nausea/Vomiting, No Seizure, No Shortness of Air, No Syncope, No Weakness Allergies and Home Medications Allergies Coded Allergies: diphenhydramine (Unverified Allergy, Unknown, 05/05/21) Patient Home Medication List Home Medication List Reviewed: Yes Acetaminophen (Tylenol Extra Strength) 500 Mg Tablet, 1,000 MG PO Q6H PRN for PAIN-MILD (1-4), (Reported) Entered as Reported by: GOLDIE SMITH on 03/09/21 0912 Acetaminophen/Diphenhydramine (Tylenol Pm Ex-Strength Caplet) 1 Each Tablet, 1-2 EACH PO HS PRN for SLEEP, (Reported) Entered as Reported by: KENNY XIAO on 03/16/21 1058 Albuterol Sulfate (Proair Hfa) 1 Puff Puff, 2 PUFF IH Q4H PRN for SHORTNESS OF BREATH, (Reported) Entered as Reported by: GOLDIE SMITH on 05/24/20 1023 Amoxicillin/Potassium Clav (Augmentin 875-125 Tablet) 1 Each Tablet, 1 EACH PO BID Prescribed by: POLA WEBB on 06/20/21 1303 Azithromycin (Azithromycin) 500 Mg Tablet, 500 MG PO DAILY Prescribed by: MIAN DILLARD MD on 09/23/21 1604 Benzonatate (Tessalon Perles) 100 Mg Capsule, 100 MG PO TID PRN for COUGH, (Reported) Entered as Reported by: GOLDIE SMITH on 03/09/21 0912 Colestipol HCl (Colestipol HCl) 1 Gm Tablet, 1 GM PO DAILY, (Reported) Entered as Reported by: GOLDIE SMITH on 03/09/21 0912 Cyclobenzaprine HCl (Cyclobenzaprine HCl) 10 Mg Tablet, 10 MG PO Q8H PRN for muscle spasm/chest wall pain Prescribed by: DIANE DELCID on 12/27/21 1812 Escitalopram Oxalate (Escitalopram Oxalate) 20 Mg Tablet, 40 MG PO DAILY, (Reported) Entered as Reported by: GOLDIE SMITH on 05/24/20 1016 Fluconazole (Diflucan) 150 Mg Tablet, 150 MG PO ONCE PRN for one today and one in 7 days Prescribed by: POLA WEBB on 06/20/21 1330 Fluconazole (Fluconazole) 200 Mg Tablet, 200 MG PO DAILY Prescribed by: DIANE DELCID on 06/29/21 1144 Fluticasone Propion/Salmeterol (Fluticasone-Salmeterol 250-50) 1 Each Blst.w.dev, 1 PUFF INH DAILY, (Reported) Entered as Reported by: GOLDIE SMITH on 05/24/20 1023 Gabapentin (Gabapentin) 100 Mg Capsule, 100 MG PO HS, (Reported) Entered as Reported by: GOLDIE SMITH on 05/24/20 1016 Insulin Aspart (Novolog Flexpen) 300 Units/3 Ml Solution, 25 UNITS SC WM, (Reported) Entered as Reported by: KENNY XIAO on 03/16/21 1058 Insulin Degludec (Tresiba Flextouch U-200) 200 Unit/1 Ml Insuln.pen, 126 UNITS SQ DAILY, (Reported) Entered as Reported by: GOLDIE SMITH on 03/09/21 0933 Ipratropium [place] (Atrovent Hfa) 12.9 Gm Aers, 2 PUFF IH DAILY PRN for SHORTNESS OF BREATH, (Reported) Entered as Reported by: GOLDIE SMITH on 03/09/21 0912 Loratadine (Claritin) 10 Mg Tablet, 10 MG PO DAILY, (Reported) Entered as Reported by: GOLDIE SMITH on 05/24/20 1025 Menthol (Activice) 118 Ml [place], 1 APPLIC TP UD PRN for PAIN-BREAKTHROUGH, (Reported) Entered as Reported by: KENNY XIAO on 03/16/21 1058 Metformin HCl (Metformin HCl ER) 500 Mg Tab.er.24, 1,000 MG PO 1800, (Reported) Entered as Reported by: KENNY XIAO on 03/16/21 1058 Mirabegron (Myrbetriq) 25 Mg Tab.er.24h, 25 MG PO DAILY, (Reported) Entered as Reported by: GOLDIE SMITH on 05/24/20 1016 Montelukast Sodium (Singulair) 10 Mg Tablet, 10 MG PO DAILY, (Reported) Entered as Reported by: GOLDIE SMITH on 05/24/20 1024 Nebivolol HCl (Bystolic) 10 Mg Tab, 10 MG PO DAILY, (Reported) Entered as Reported by: GOLDIE SMITH on 03/09/21 0933 Olanzapine (Olanzapine) 10 Mg Tablet, 10 MG PO HS, (Reported) Entered as Reported by: JOSHUA BUITRAGO on 03/24/19 1158 Promethazine HCl (Promethazine Tablet) 25 Mg Tablet, 12.5 MG PO Q6H PRN for NAUS EA/VOMITING, (Reported) Entered as Reported by: GOLDIE SMITH on 03/09/21 0912 Roflumilast (Daliresp) 500 Mcg Tablet, 500 MCG PO DAILY, (Reported) Entered as Reported by: GOLDIE SMITH on 03/09/21 0912 Semaglutide (Ozempic) 1 Mg/0.75 Ml Pen.injctr, 1 MG INJ SUNDAY, (Reported) Entered as Reported by: GOLDIE SMITH on 03/09/21 09 Simethicone (Simethicone) 180 Mg Capsule, 180 MG PO UD PRN for STOMACH UPSET, (Reported) Entered as Reported by: GOLDIE SMITH on 03/09/21 0912 Tramadol HCl (Tramadol HCl) 50 Mg Tablet, 50 MG PO Q6H PRN for PAIN-MODERATE (5- 7), (Reported) Entered as Reported by: KENNY XIAO on 03/16/21 1058 Ziprasidone HCl (Ziprasidone HCl) 80 Mg Capsule, 160 MG PO HS, (Reported) Entered as Reported by: KENNY XIAO on 03/16/21 1058 Review of Systems Review of Systems Constitutional: No chills, No fever EENTM: no symptoms reported Respiratory: no symptoms reported Cardiovascular: see HPI Gastrointestinal: no symptoms reported Genitourinary: no symptoms reported Musculoskeletal: no symptoms reported Skin: no symptoms reported Psychiatric/Neurological: No Symptoms Reported Past Jwjoftp-Fzjqdi-Ajmyfg Hx Patient Social History Tobacco Use?: No Use of E-Cig and/or Vaping dev: No Substance use?: No Immunizations Up To Date First/Initial COVID19 Vaccinat: OCTOBER 2020 Second COVID19 Vaccination [place]: OCTOBER 2020 Third COVID19 Vaccination Date: January 2021 Seasonal Allergies Seasonal Allergies: No Past Medical History Surgery/Hospitalization HX: DM, COPD Surgeries: Yes Bladder Surgery, Gallbladder, Hysterectomy, Tonsillectomy Respiratory: Yes Asthma, COPD Currently Using CPAP: No Currently Using BIPAP: No Cardiac: Yes High Cholesterol, Hypertension 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 had recent axilla abscess) Recent Skin Changes Blood Disorders: Yes (HEP C) Adverse Reaction/Blood Tranf: No Family Medical History Heart Disease, Cancer, CVA, Other Conditions/Hx Physical Exam Vital Signs Vital Signs - First Documented 12/27/21 17:45 Temp 36.6 Pulse 89 Resp 18 B/P (MAP) 131/73 (92) Pulse Ox 98 O2 Delivery Room Air Capillary Refill : Height, Weight, BMI Height: 5'7.00" Weight: 224lbs. 0.0oz. 101.976762gu; 34.00 BMI Method:Actual General Appearance: Anxious, Mild Distress HEENT: PERRL/EOMI, Pharynx Normal Neck: Full Range of Motion, Normal Inspection, Non Tender, Supple Respiratory: No Chest Non Tender (Tender to palpation on the left upper chest wall around her port site. There is no redness, erythema, warmth, induration, fluctuance.); Lungs Clear, Normal Breath Sounds, No Accessory Muscle Use, No Respiratory Distress Cardiovascular: Regular Rate, Rhythm, Normal Peripheral Pulses Gastrointestinal: No Pulsatile Mass, Non Tender, Soft Extremity: Normal Capillary Refill, Normal Inspection, No Pedal Edema Neurologic/Psychiatric: Alert, Oriented x3, placement interviewer II-XII Norm as Tested Skin: Normal Color, Warm/Dry Progress/Results/Core Measures Suspected Sepsis SIRS Temperature: Pulse: Respiratory Rate: Blood Pressure / Mean: Results/Orders My Orders Orders - DIANE DELCID MD Ketorolac Injection (Toradol Injection) (12/27/21 18:07) Dexamethasone Injection (Decadron Inje (12/27/21 18:07) Methylprednisolone Acetate Inj (Depo-Med (12/27/21 18:07) Vital Signs/I&O 12/27/21 12/27/21 17:45 18:19 Temp 36.6 36.6 Pulse 89 89 Resp 18 18 B/P (MAP) 131/73 (92) 131/73 Pulse Ox 98 98 O2 Delivery Room Air Room Air Capillary Refill : Progress Note : Progress Note Reviewed testing from yesterday's ER visit and discussed with patient. Advised that the only other testing I would have would be to do a CT scan to take a look at the tissue and see if there is evidence of anything wrong or problem with the Port-A-Cath. Patient declined having CT scan or imaging done as she stated that she had a ride waiting on her and her boyfriend was home recently from the hospital. She was agreeable with getting a dose of Toradol since it had helped yesterday. We will also do a short course of steroids knowing that it will affect her sugar so patient will be more cognizant of what she eats and drinks. Advised to take muscle relaxer in addition to the ibuprofen to try and help with her chest wall pain and shoulder pain. If still having problems then she may need to see the surgeon had placed the Port-A-Cath or somebody more specifically about the Port-A-Cath itself Departure Impression Primary Impression: Left-sided chest wall pain Additional Impression: Port-A-Cath in place Disposition: HOME, SELF-CARE Condition: Stable Departure-Patient Inst. Decision time for Depature: 18:09 Referrals: SACHIN MARQUEZ APRN (PCP) Primary Care Physician [facility] (Family) Primary Care Physician Patient Instructions: Chest Pain, Adult ED Add. Discharge Instructions: Drink more water and stay well hydrated Try taking the muscle relaxer along with the Ibuprofen to see if that helps your pain until you can get something different with Nurse Practitioner Adela or refill of Tramadol. You may need to see the surgeon that placed the Port-A-Cath initially to see if they need to remove it All discharge instructions reviewed with patient and/or family. Voiced understanding. Scripts Cyclobenzaprine HCl (Cyclobenzaprine HCl) 10 Mg Tablet 10 MG PO Q8H PRN for muscle spasm/chest wall pain for 10 Days, #30 TAB 0 Refills Prov: DIANE DELCID MD 12/27/21 Images Female/Male 1 - Moderate, Swelling, Tenderness (Tenderness with some mild swelling around the Port-A-Cath site in the left upper chest wall. There is no induration, fluctuance, increased warmth, redness, drainage) DIANE DELCID MD Dec 27, 2021 17:53
[2021-12-27] MEDS ORDERED: KETOROLAC 60 MG/2 ML VIAL IM STA (18:07)
[2021-12-27] MEDS ORDERED: methylPREDNISolone 40 MG/ML (DEPO MEDROL) VIAL IM STA (18:07)
[2021-12-27] MEDS ORDERED: CYCL10TA25 PO (18:12)
[2021-12-27 18:19] VITALS: BP 131/73
== END 2021-12-27 18:20 | disposition home or self-care (01) ==
LOC: EDUNIT# 17:40 → ER FS 17:41
DX: R07.89 Other chest pain (principal); E11.9 Type 2 diabetes mellitus without complications; Z95.9 Presence of cardiac and vascular implant and graft, unspecified; Z79.4 Long term (current) use of insulin
CPT/HCPCS: 99284

== ENCOUNTER → 2022-01-05 | Outpatient (CLI) | payer MEDICARE, MEDICAID ==
[~2022-01-05] MED LIST changes: +CATHETER FLUSH 10 ML SYR IV PRN; +HOLD METFORMIN - RECEIVED CONTRAST 20 ML VIAL IV SCH; +IOHEXOL 350 MG/ML 100 ML (OMNIPAQUE 350) VIAL IV ONE; +NS 100 ML (IVPB) BAG IV ONE
--- NOTE | 2022-01-05 12:48 | Diagnostic Imaging Report ---
PROCEDURE: CT angiography of the chest with contrast. TECHNIQUE: Multiple contiguous axial images were obtained through the chest after uneventful bolus administration of intravenous contrast. 3D reconstructed CTA MIP acquisitions were also performed. Auto Exposure Controls were utilized during the CT exam to meet ALARA standards for radiation dose reduction. INDICATION: Left-sided chest wall pain for two weeks. COMPARISON: Correlation is made with prior CT chest from 09/13/2021. FINDINGS: A left chest wall port has the tip in the SVC. The thoracic aorta is normal in caliber. No dissection is identified. Pulmonary arterial system is without evidence of thromboembolism. No filling defects are seen within central, lobar or segmental branches. No pericardial or pleural fluid is identified. No pulmonary infiltrates, nodules or masses are seen. Upper abdomen is unremarkable. The bony structures are nonacute. IMPRESSION: Unremarkable CT angiogram of the chest. There is no evidence of pulmonary embolism or acute aortic disease. Dictated by: Dictated on workstation # [id number]
== END ==
LOC: RAD FS 10:16
PROVIDERS: ATTEND Nurse Practitioner Family
DX: R22.2 Localized swelling, mass and lump, trunk (principal); R07.89 Other chest pain; Z95.828 Presence of other vascular implants and grafts
CPT/HCPCS: 71275

== ENCOUNTER → 2022-01-25 | Outpatient (CLI) | payer MEDICARE, MEDICAID ==
[~2022-01-25] MED LIST changes: -CATHETER FLUSH 10 ML SYR IV PRN; -HOLD METFORMIN - RECEIVED CONTRAST 20 ML VIAL IV SCH; -IOHEXOL 350 MG/ML 100 ML (OMNIPAQUE 350) VIAL IV ONE; -NS 100 ML (IVPB) BAG IV ONE
--- NOTE | 2022-01-25 17:08 | Diagnostic Imaging Report ---
INDICATION: Left shoulder pain. FINDINGS: Two views of the left shoulder show no fracture, dislocation or other acute abnormality. There are mild degenerative changes of the acromioclavicular joint with small spurs forming superiorly. IMPRESSION: Mild degenerative changes of the left acromioclavicular joint. No acute abnormality is seen. Dictated by: Dictated on workstation # [id number]
== END ==
LOC: RAD FS 16:12
PROVIDERS: ATTEND Nurse Practitioner Family
DX: M19.011 Primary osteoarthritis, right shoulder (principal)
CPT/HCPCS: 73030

== ENCOUNTER 2022-01-28 10:44 | Emergency (ER) | payer MEDICARE, MEDICAID ==
[~2022-01-28] VITALS: Ht 170.2 cm; Wt 92.5 kg
--- NOTE | 2022-01-28 11:08 | ED General ---
General Chief Complaint: General Problems/Pain Stated Complaint: SOB; NECK/LT ARM PAIN Source of Information: Patient Exam Limitations: No Limitations History of Present Illness Date Seen by Provider: Jan 28, 2022 Time Seen by Provider: 10:47 Initial Comments 56yoF with PMH of diabetes, COPD, hypertension, prior ovarian cancer that has been seen in this ER numerous times in the past month for left shoulder pain coming in for left shoulder pain. She says it has been going on for over a month. Go down to elbow and to upper back. She was told she has some joint issues. Laying down feels better, worse with movement, Increased her gabapentin to 300mg TID which helps some. Her pain is severe, sharp, constant. She says she is out of Tramadol. Per [facility], the patient had 28 days written and prescribed 3 weeks ago (224 pills). The patient says the pills were lost, and when she found them about half were missing and were either taken or fell out. Allergies and Home Medications Allergies Coded Allergies: diphenhydramine (Unverified Allergy, Unknown, 05/05/21) Patient Home Medication List Home Medication List Reviewed: Yes Acetaminophen (Tylenol Extra Strength) 500 Mg Tablet, 1,000 MG PO Q6H PRN for PAIN-MILD (1-4), (Reported) Entered as Reported by: GOLDIE SMITH on 03/09/21 0912 Acetaminophen/Diphenhydramine (Tylenol Pm Ex-Strength Caplet) 1 Each Tablet, 1-2 EACH PO HS PRN for SLEEP, (Reported) Entered as Reported by: KENNY XIAO on 03/16/21 1058 Albuterol Sulfate (Proair Hfa) 1 Puff Puff, 2 PUFF IH Q4H PRN for SHORTNESS OF BREATH, (Reported) Entered as Reported by: GOLDIE SMITH on 05/24/20 1023 Amoxicillin/Potassium Clav (Augmentin 875-125 Tablet) 1 Each Tablet, 1 EACH PO BID Prescribed by: POLA WEBB on 06/20/21 1303 Azithromycin (Azithromycin) 500 Mg Tablet, 500 MG PO DAILY Prescribed by: MIAN DILLARD MD on 09/23/21 1604 Benzonatate (Tessalon Perles) 100 Mg Capsule, 100 MG PO TID PRN for COUGH, (Reported) Entered as Reported by: GOLDIE SMITH on 03/09/21 0912 Colestipol HCl (Colestipol HCl) 1 Gm Tablet, 1 GM PO DAILY, (Reported) Entered as Reported by: GOLDIE SMITH on 03/09/21 0912 Cyclobenzaprine HCl (Cyclobenzaprine HCl) 10 Mg Tablet, 10 MG PO Q8H PRN for muscle spasm/chest wall pain Prescribed by: DIANE DELCID on 12/27/21 1812 Escitalopram Oxalate (Escitalopram Oxalate) 20 Mg Tablet, 40 MG PO DAILY, (Reported) Entered as Reported by: GOLDIE SMITH on 05/24/20 1016 Fluconazole (Diflucan) 150 Mg Tablet, 150 MG PO ONCE PRN for one today and one in 7 days Prescribed by: POLA WEBB on 06/20/21 1330 Fluconazole (Fluconazole) 200 Mg Tablet, 200 MG PO DAILY Prescribed by: DIANE DELCID on 06/29/21 1144 Fluticasone Propion/Salmeterol (Fluticasone-Salmeterol 250-50) 1 Each Blst.w.dev, 1 PUFF INH DAILY, (Reported) Entered as Reported by: GOLDIE SMITH on 05/24/20 1023 Gabapentin (Gabapentin) 100 Mg Capsule, 100 MG PO HS, (Reported) Entered as Reported by: GOLDIE SMITH on 05/24/20 1016 Insulin Aspart (Novolog Flexpen) 300 Units/3 Ml Solution, 25 UNITS SC WM, (Reported) Entered as Reported by: KENNY XIAO on 03/16/21 1058 Insulin Degludec (Tresiba Flextouch U-200) 200 Unit/1 Ml Insuln.pen, 126 UNITS SQ DAILY, (Reported) Entered as Reported by: GOLDIE SMITH on 03/09/21 0933 Ipratropium [place] (Atrovent Hfa) 12.9 Gm Aers, 2 PUFF IH DAILY PRN for SHORTNESS OF BREATH, (Reported) Entered as Reported by: GOLDIE SMITH on 03/09/21 0912 Loratadine (Claritin) 10 Mg Tablet, 10 MG PO DAILY, (Reported) Entered as Reported by: GOLDIE SMITH on 05/24/20 1025 Menthol (Activice) 118 Ml [place], 1 APPLIC TP UD PRN for PAIN-BREAKTHROUGH, (Reported) Entered as Reported by: KENNY XIAO on 03/16/21 105 Metformin HCl (Metformin HCl ER) 500 Mg Tab.er.24, 1,000 MG PO 1800, (Reported) Entered as Reported by: KENNY XIAO on 03/16/21 105 Mirabegron (Myrbetriq) 25 Mg Tab.er.24h, 25 MG PO DAILY, (Reported) Entered as Reported by: GOLDIE SMITH on 05/24/20 1016 Montelukast Sodium (Singulair) 10 Mg Tablet, 10 MG PO DAILY, (Reported) Entered as Reported by: GOLDIE SMITH on 05/24/20 1024 Nebivolol HCl (Bystolic) 10 Mg Tab, 10 MG PO DAILY, (Reported) Entered as Reported by: GOLDIE SMITH on 03/09/21 09 Olanzapine (Olanzapine) 10 Mg Tablet, 10 MG PO HS, (Reported) Entered as Reported by: JOSHUA BUITRAGO on 03/24/19 1158 Promethazine HCl (Promethazine Tablet) 25 Mg Tablet, 12.5 MG PO Q6H PRN for NAUSEA/VOMITING, (Reported) Entered as Reported by: GOLDIE SMITH on 03/09/21 09 Roflumilast (Daliresp) 500 Mcg Tablet, 500 MCG PO DAILY, (Reported) Entered as Reported by: GOLDIE SMITH on 03/09/21 09 Semaglutide (Ozempic) 1 Mg/0.75 Ml Pen.injctr, 1 MG INJ SUNDAY, (Reported) Entered as Reported by: GOLDIE SMITH on 03/09/21932 Simethicone (Simethicone) 180 Mg Capsule, 180 MG PO UD PRN for STOMACH UPSET, (Reported) Entered as Reported by: GOLDIE SMITH on 03/09/21 09 Tramadol HCl (Tramadol HCl) 50 Mg Tablet, 50 MG PO Q6H PRN for PAIN-MODERATE (5- 7), (Reported) Entered as Reported by: KENNY XIAO on 03/16/21 105 Ziprasidone HCl (Ziprasidone HCl) 80 Mg Capsule, 160 MG PO HS, (Reported) Entered as Reported by: KENNY XIAO on 03/16/21 105 Review of Systems Review of Systems Constitutional: No fever EENTM: No blurred vision Respiratory: No cough Cardiovascular: No chest pain Gastrointestinal: No abdominal pain Genitourinary: no symptoms reported Musculoskeletal: joint pain Skin: no symptoms reported Psychiatric/Neurological: No Symptoms Reported Hematologic/Lymphatic: No Symptoms Reported Immunological/Allergic: no symptoms reported All Other Systems Reviewed Negative Unless Noted: Yes Past Rzrzhzp-Cynpay-Gswcms Hx Patient Social History Tobacco Use?: Yes Tobacco type used: Cigarettes Smoking Status: Heavy Tobacco Smoker Smokeless Tobacco Frequency: Never a User Use of E-Cig and/or Vaping dev: No Use of E-Cig and/or Vaping [place]: Never a User Substance use?: Yes Substance type: Marijuana Substance frequency: Couple times a week Alcohol Use?: Yes Alcohol Frequency: Once in a while Pt feels they are or have been: No Immunizations Up To Date First/Initial COVID19 Vaccinat: OCTOBER 2020 Second COVID19 Vaccination [place]: OCTOBER 2020 Third COVID19 Vaccination Date: OCTOBER 2020 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: [employer] Seasonal Allergies Seasonal Allergies: No Past Medical History Surgery/Hospitalization HX: DM, COPD Surgeries: Yes Bladder Surgery, Gallbladder, Hysterectomy, Tonsillectomy Respiratory: Yes Asthma, COPD Currently Using CPAP: No Currently Using BIPAP: No Cardiac: Yes High Cholesterol, Hypertension 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 had recent axilla abscess) Recent Skin Changes Blood Disorders: Yes (HEP C) Adverse Reaction/Blood Tranf: No Family Medical History Heart Disease, Cancer, CVA, Other Conditions/Hx Physical Exam Vital Signs Vital Signs - First Documented 01/28/22 10:47 Temp 36.4 Pulse 109 Resp 18 B/P (MAP) 166/85 (112) O2 Delivery Room Air Capillary Refill : Height, Weight, BMI Height: 5'7.00" Weight: 224lbs. 0.0oz. 101.480738kj; 34.00 BMI Method:Actual General Appearance: No Apparent Distress, WD/WN Eyes: Bilateral Eye Normal Inspection HEENT: PERRL/EOMI, Normal ENT Inspection, Pharynx Normal Neck: Full Range of Motion, Normal Inspection, Non Tender, Supple Respiratory: Chest Non Tender, Lungs Clear, Normal Breath Sounds, No Accessory Muscle Use, No Respiratory Distress Cardiovascular: Regular Rate, Rhythm, No Edema, Normal Peripheral Pulses Gastrointestinal: Normal Bowel Sounds, Non Tender, Soft; No Distended, No Guarding Back: Normal Inspection, No CVA Tenderness, No Vertebral Tenderness Extremity: Normal Capillary Refill, Normal Inspection, Normal Range of Motion, Non Tender, No Calf Tenderness, No Pedal Edema, Other (pain with ROM of left shoulder) Neurologic/Psychiatric: Alert, No Motor/Sensory Deficits, Normal Mood/Affect Skin: Normal Color, Warm/Dry Lymphatic: No Adenopathy Progress/Results/Core Measures Suspected Sepsis SIRS Temperature: Pulse: Respiratory Rate: Blood Pressure / Mean: Results/Orders Vital Signs/I&O 01/28/22 10:47 Temp 36.4 Pulse 109 Resp 18 B/P (MAP) 166/85 (112) O2 Delivery Room Air Capillary Refill : Progress Note : Progress Note 56-year-old female coming in due to what seems like musculoskeletal left shoulder pain. ABCs were intact and vitals were stable on presentation. Physical exam reassuring other than some minor painful range of motion with the left shoulder which fits her pain. She says that she has lost some of the tramadol, I discussed with the patient that I am unable to refill her tramadol prescription, and she needs to follow-up with her regular doctor. I offered a muscle relaxer to get her through the next couple of days. She has follow-up with orthopedics, Maicol Infante in 3 days. I recommended she ask for physical therapy referral. I reviewed the patient's work-ups over the past month, she had a normal CTA chest which was negative for PE, left shoulder x-ray with only mild degenerative changes, and really unremarkable work-up otherwise. I believe she is stable for discharge with outpatient follow-up. She was sent home with strict return precautions Departure Impression Primary Impression: Left shoulder pain Qualified Codes: M25.512 - Pain in left shoulder Disposition: HOME, SELF-CARE Condition: Stable Departure-Patient Inst. Decision time for Depature: 11:25 Referrals: SACHIN MARQUEZ APRN (PCP) Primary Care Physician [facility] (Family) Primary Care Physician Patient Instructions: Shoulder Pain ED Add. Discharge Instructions: I recommend following up with Maicol Infante to get a referral for physical therapy. Do some gentle stretching and movements at home. Otherwise take Tylenol and/or ibuprofen with your gabapentin until you can get Mulu Echevarria to write for more pain medicine if she deems that necessary Scripts Cyclobenzaprine HCl (Cyclobenzaprine HCl) 10 Mg Tablet 10 MG PO Q8H PRN for SPASMS for 5 Days, #15 TAB Prov: LEIDY YIP MD 01/28/22 Work/School Note: Work Release Form Date Seen in the Emergency Department: Jan 28, 2022 Return to Work: Jan 29, 2022 Restrictions: No Restrictions LEIDY YIP MD Jan 28, 2022 11:08
[2022-01-28] MEDS ORDERED: CYCL10TA25 PO (11:22)
[2022-01-28] MEDS ORDERED: CYCLOBENZAPRINE 10 MG (FLEXERIL) TAB PO STA (11:23)
[2022-01-28 11:28] VITALS: BP 142/83
== END 2022-01-28 11:28 | disposition home or self-care (01) ==
LOC: EDUNIT# 10:44 → ER FS 10:45
DX: M25.512 Pain in left shoulder (principal); E11.9 Type 2 diabetes mellitus without complications; F17.210 Nicotine dependence, cigarettes, uncomplicated; Z96.41 Presence of insulin pump (external) (internal); Z79.4 Long term (current) use of insulin
CPT/HCPCS: 99283

== ENCOUNTER 2022-03-06 17:52 | Emergency (ER) | payer MEDICARE, MEDICAID ==
[~2022-03-06] VITALS: Ht 170.1 cm; Wt 91.0 kg
[2022-03-06] MEDS ORDERED: TETANUS,DIPTH,PERTUSS P/F (BOOSTRIX) 0.5 ML VIAL IM ONE (18:00)
--- NOTE | 2022-03-06 18:02 | ED Fall/Injury ---
General Chief Complaint: General Problems/Pain Stated Complaint: FALL,L WRIST PAIN,CHEEK LAC Source: patient Exam Limitations: no limitations History of Present Illness Date Seen by Provider: Mar 06, 2022 Time Seen by Provider: 17:53 Initial Comments 56-year-old female coming in after she tripped this morning around 7 AM hitting her left cheek on the nightstand. Did not really hit her head or pass out. Remembers all events. Denies any neck or back pain. Has been ambulatory since the event. Has not had any headache, nausea, vomiting, weakness, numbness, or any other concerns. She did land on her left wrist as well which is having constant throbbing pain that is worse with movement and better with rest. Un sure of her last tetanus vaccine. She is otherwise denying any other acute complaints. Allergies and Home Medications Allergies Coded Allergies: diphenhydramine (Unverified Allergy, Unknown, 05/05/21) Patient Home Medication List Home Medication List Reviewed: Yes Acetaminophen (Tylenol Extra Strength) 500 Mg Tablet, 1,000 MG PO Q6H PRN for PAIN-MILD (1-4), (Reported) Entered as Reported by: GOLDIE SMITH on 03/09/21 0912 Acetaminophen/Diphenhydramine (Tylenol Pm Ex-Strength Caplet) 1 Each Tablet, 1-2 EACH PO HS PRN for SLEEP, (Reported) Entered as Reported by: KENNY XIAO on 03/16/21 1058 Albuterol Sulfate (Proair Hfa) 1 Puff Puff, 2 PUFF IH Q4H PRN for SHORTNESS OF BREATH, (Reported) Entered as Reported by: GOLDIE SMITH on 05/24/20 1023 Amoxicillin/Potassium Clav (Augmentin 875-125 Tablet) 1 Each Tablet, 1 EACH PO BID Prescribed by: POLA WEBB on 06/20/21 1303 Azithromycin (Azithromycin) 500 Mg Tablet, 500 MG PO DAILY Prescribed by: MIAN DILLARD MD on 09/23/21 1604 Benzonatate (Tessalon Perles) 100 Mg Capsule, 100 MG PO TID PRN for COUGH, (Reported) Entered as Reported by: GOLDIE SMITH on 03/09/21 0912 Colestipol HCl (Colestipol HCl) 1 Gm Tablet, 1 GM PO DAILY, (Reported) Entered as Reported by: GOLDIE SMITH on 03/09/21 0912 Cyclobenzaprine HCl (Cyclobenzaprine HCl) 10 Mg Tablet, 10 MG PO Q8H PRN for muscle spasm/chest wall pain Prescribed by: DIANE DELCID on 12/27/21 1812 Cyclobenzaprine HCl (Cyclobenzaprine HCl) 10 Mg Tablet, 10 MG PO Q8H PRN for SPASMS Prescribed by: LEIDY YIP on 01/28/22 1122 Escitalopram Oxalate (Escitalopram Oxalate) 20 Mg Tablet, 40 MG PO DAILY, (Reported) Entered as Reported by: GOLDIE SMITH on 05/24/20 1016 Fluconazole (Diflucan) 150 Mg Tablet, 150 MG PO ONCE PRN for one today and one in 7 days Prescribed by: POLA WEBB on 06/20/21 1330 Fluconazole (Fluconazole) 200 Mg Tablet, 200 MG PO DAILY Prescribed by: DIANE DELCID on 06/29/21 1144 Fluticasone Propion/Salmeterol (Fluticasone-Salmeterol 250-50) 1 Each Blst.w.dev, 1 PUFF INH DAILY, (Reported) Entered as Reported by: GOLDIE SMITH on 05/24/20 1023 Gabapentin (Gabapentin) 100 Mg Capsule, 100 MG PO HS, (Reported) Entered as Reported by: GOLDIE SMITH on 05/24/20 1016 Insulin Aspart (Novolog Flexpen) 300 Units/3 Ml Solution, 25 UNITS SC WM, (Reported) Entered as Reported by: KENNY XIAO on 03/16/21 1058 Insulin Degludec (Tresiba Flextouch U-200) 200 Unit/1 Ml Insuln.pen, 126 UNITS SQ DAILY, (Reported) Entered as Reported by: GOLDIE SMITH on 03/09/21 0933 Ipratropium [place] (Atrovent Hfa) 12.9 Gm Aers, 2 PUFF IH DAILY PRN for SHORTNESS OF BREATH, (Reported) Entered as Reported by: GOLDIE SMITH on 03/09/21 0912 Loratadine (Claritin) 10 Mg Tablet, 10 MG PO DAILY, (Reported) Entered as Reported by: GOLDIE SMITH on 05/24/20 1025 Menthol (Activice) 118 Ml [place], 1 APPLIC TP UD PRN for PAIN-BREAKTHROUGH, (Reported) Entered as Reported by: KENNY XIAO on 03/16/21 1058 Metformin HCl (Metformin HCl ER) 500 Mg Tab.er.24, 1,000 MG PO 1800, (Reported) Entered as Reported by: KENNY XIAO on 03/16/21 1058 Mirabegron (Myrbetriq) 25 Mg Tab.er.24h, 25 MG PO DAILY, (Reported) Entered as Reported by: GOLDIE SMITH on 05/24/20 1016 Montelukast Sodium (Singulair) 10 Mg Tablet, 10 MG PO DAILY, (Reported) Entered as Reported by: GOLDIE SMITH on 05/24/20 1024 Nebivolol HCl (Bystolic) 10 Mg Tab, 10 MG PO DAILY, (Reported) Entered as Reported by: GOLDIE SMITH on 03/09/21 09 Olanzapine (Olanzapine) 10 Mg Tablet, 10 MG PO HS, (Reported) Entered as Reported by: JOSHUA BUITRAGO on 03/24/19 1158 Promethazine HCl (Promethazine Tablet) 25 Mg Tablet, 12.5 MG PO Q6H PRN for NAUSEA/VOMITING, (Reported) Entered as Reported by: GOLDIE SMITH on 03/09/21 09 Roflumilast (Daliresp) 500 Mcg Tablet, 500 MCG PO DAILY, (Reported) Entered as Reported by: GOLDIE SMITH on 03/09/21 09 Semaglutide (Ozempic) 1 Mg/0.75 Ml Pen.injctr, 1 MG INJ SUNDAY, (Reported) Entered as Reported by: GOLDIE SMITH on 03/09/21 09 Simethicone (Simethicone) 180 Mg Capsule, 180 MG PO UD PRN for STOMACH UPSET, (Reported) Entered as Reported by: GOLDIE SMITH on 03/09/21 09 Tramadol HCl (Tramadol HCl) 50 Mg Tablet, 50 MG PO Q6H PRN for PAIN-MODERATE (5- 7), (Reported) Entered as Reported by: KENNY XIAO on 03/16/21 1058 Ziprasidone HCl (Ziprasidone HCl) 80 Mg Capsule, 160 MG PO HS, (Reported) Entered as Reported by: KENNY XIAO on 03/16/21 1058 Review of Systems Review of Systems Constitutional: No fever Eyes: Denies Blurred Vision Ears, Nose, Mouth, Throat: no symptoms reported Respiratory: no symptoms reported Cardiovascular: no symptoms reported Gastrointestinal: no symptoms reported Genitourinary: no symptoms reported Musculoskeletal: see HPI Skin: see HPI Psychiatric/Neurological: No Symptoms Reported All Other Systems Reviewed Negative Unless Noted: Yes Past Ysjcima-Anptxi-Ikiduh Hx Patient Social History Tobacco Use?: Yes Immunizations Up To Date First/Initial COVID19 Vaccinat: OCTOBER 2020 Second COVID19 Vaccination [place]: OCTOBER 2020 Third COVID19 Vaccination Date: OCTOBER 2020 Seasonal Allergies Seasonal Allergies: No Past Medical History Surgery/Hospitalization HX: DM, COPD; hx of bladder cancer Surgeries: Yes Bladder Surgery, Gallbladder, Hysterectomy, Tonsillectomy Respiratory: Yes Asthma, COPD Currently Using CPAP: No Currently Using BIPAP: No Cardiac: Yes High Cholesterol, Hypertension 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 had recent axilla abscess) Recent Skin Changes Blood Disorders: Yes (HEP C) Adverse Reaction/Blood Tranf: No Family Medical History Heart Disease, Cancer, CVA, Other Conditions/Hx Physical Exam Vital Signs Vital Signs - First Documented 03/06/22 18:07 Temp 36.7 Pulse 92 Resp 14 B/P (MAP) 111/78 (89) Pulse Ox 98 O2 Delivery Room Air Capillary Refill : Height, Weight, BMI Height: 5'7.00" Weight: 224lbs. 0.0oz. 101.143602jy; 31.00 BMI Method:Actual General Appearance: WD/WN, no apparent distress HEENT: PERRL/EOMI, normal ENT inspection, pharynx normal Neck: non-tender, full range of motion, supple, normal inspection Cardiovascular: regular rate, rhythm, no edema, no murmur Respiratory: chest non-tender, lungs clear, normal breath sounds, no respiratory distress, no accessory muscle use Gastrointestinal: normal bowel sounds, non tender, soft; No distended, No guarding, No rebound Back: normal inspection, no CVA tenderness, no vertebral tenderness Extremities: normal range of motion, no pedal edema, no calf tenderness, normal capillary refill, other (Left wrist tenderness with bruising mostly along the ulnar side, normal neurovascular exam) Neurologic/Psychiatric: no motor/sensory deficits, alert, normal mood/affect Skin: normal color, warm/dry, other (0.5 cm laceration that superficial to the left cheek along the zygomatic arch) Lymphatic: no adenopathy [place] Coma Score Best Eye Response: (4) Open Spontaneously Best Verbal Response: (5) Oriented Best Motor Response: (6) Obeys Commands Procedures/Interventions Wound Location: Face Other Wound Location left cheek Wound Length (cm): 0.5 Wound's Depth, Shape: superficial Wound Explored: clean Irrigated w/ Saline (ccs): 100 Other Closure Supply: Wound Adhesive Progress Patient tolerated well with no complications Progress/Results/Core Measures Results/Orders My Orders Orders - LEIDY YIP MD Dipht,Pertuss(Acell),Tet Adult (Boostrix (03/06/22 18:00) Wrist 3 View Left (03/06/22 17:58) Tramadol Tablet (Ultram Tablet) (03/06/22 18:15) Medications Given in ED Current Medications Medications Dose Ordered Sig/Yoselyn Route Start Time Stop Time Status Last Admin Dose Admin Diphtheria/ Tetanus/Acell Pertussis 0.5 ml ONCE ONCE IM 03/06/22 18:00 03/06/22 18:01 DC 03/06/22 18:18 0.5 ML Tramadol HCl 50 mg ONCE ONCE PO 03/06/22 18:15 03/06/22 18:16 DC 03/06/22 18:16 50 MG Vital Signs/I&O 03/06/22 18:07 Temp 36.7 Pulse 92 Resp 14 B/P (MAP) 111/78 (89) Pulse Ox 98 O2 Delivery Room Air Progress Progress Note : Progress Note Coming in almost 12 hours after a fall. ABCs were intact, GCS 15, vital stable on presentation. Physical exam with a very small superficial laceration to left cheek which was cleaned and then glued. Band-Aid placed over afterwards. 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 I compared it to an x-ray from a couple years ago which is unchanged. No acute fracture or dislocation. She was given tramadol for pain. Tetanus updated today. I believe she is stable for discharge with outpatient follow-up. She was sent home with strict return precautions Diagnostic Imaging Diagonstic Imaging: Xray (left wrist) Comments [facility] [place], [place] NAME: DOMINIQUE PINEDA [facility] REC#: [id number] PT STATUS: REG ER : 1965 PHYSICIAN: LEIDY YIP MD ADMIT DATE: 03/06/22/ER FS Draft Date of Exam:03/06/22 WRIST 3 VIEW LEFT EXAMINATION: Left wrist, three or more views. HISTORY: Wrist injury. COMPARISON: None available. FINDINGS: There is an old ununited fracture of the ulnar styloid process. No acute fracture is seen in the wrist. No dislocation. Joint spaces are normal. IMPRESSION: 1. No acute fracture in the left wrist. Dictated on workstation # [id number] Dict: 03/06/221812 Trans: 03/06/221814 [id number] Interpreted by: DANIEL MORAN MD Electronically signed by: Departure Impression Primary Impression: Cheek laceration Qualified Codes: S01.412A - Laceration without foreign body of left cheek and temporomandibular area, initial encounter Additional Impressions: Wrist pain, left Fall Qualified Codes: W19.XXXA - Unspecified fall, initial encounter Disposition: 01 HOME, SELF-CARE Condition: Stable Departure-Patient Inst. Decision time for Depature: 18:25 Referrals: SACHIN MARQUEZ APRN (PCP) Primary Care Physician [facility] (Family) Primary Care Physician [facility] Patient Instructions: Common Wrist Injuries ED, Laceration Repair With Glue ED Add. Discharge Instructions: Try not to let the cut on your cheek get wet for the next couple days. Try to keep it covered with a Band-Aid for at least 3 days. After that the glue will fall off on its own. Take Tylenol as needed for pain and he can also ice the area. You can wear the wear splint for comfort and for pain control. Follow-up with Maicol Infante if things or not improving in the next 2 weeks Work/School Note: Work Release Form Date Seen in the Emergency Department: Mar 06, 2022 Return to Work: Mar 08, 2022 Restrictions: No Restrictions LEIDY YIP MD Mar 06, 2022 18:02
--- NOTE | 2022-03-06 18:16 | Diagnostic Imaging Report ---
EXAMINATION: Left wrist, three or more views. HISTORY: Wrist injury. COMPARISON: None available. FINDINGS: There is an old ununited fracture of the ulnar styloid process. No acute fracture is seen in the wrist. No dislocation. Joint spaces are normal. IMPRESSION: 1. No acute fracture in the left wrist. Dictated by: Dictated on workstation # [email or web address]
[2022-03-06 18:25] VITALS: BP 111/78
== END 2022-03-06 18:25 | disposition home or self-care (01) ==
LOC: EDUNIT# 17:52 → ER FS 17:53
DX: S01.412A Laceration without foreign body of left cheek and temporomandibular area, initial encounter (principal); M25.532 Pain in left wrist; Z23 Encounter for immunization; W01.0XXA Fall on same level from slipping, tripping and stumbling without subsequent striking against object, initial encounter; W22.03XA Walked into furniture, initial encounter
CPT/HCPCS: 73110; 90715

== ENCOUNTER 2022-03-19 07:37 | Emergency (ER) | payer MEDICARE, MEDICAID ==
[~2022-03-19] VITALS: Ht 170.2 cm; Wt 86.7 kg
[~2022-03-19 07:37] MED LIST changes: +LEVO750T PO; -LEVO750T39 PO
[2022-03-19 08:00] VITALS: BP 127/97
[2022-03-19] MEDS ORDERED: ACETAMINOPHEN 500 MG TAB (TYLENOL) PO ONE (08:30)
--- NOTE | 2022-03-19 08:37 | ED General ---
General Chief Complaint: Suicidal Ideation Risk Stated Complaint: PSYCH EVAL Nursing Triage Note: Patient reports she and her significant other used cocaine over the weekend and spent all of their money. She reports her significant other left her and that she is depressed and having suicidal thoughts. She states her children don't want her either, so she has "nothing to live for." She denies any specific plan or action to hurt herself. She states she called 911 and a policeman brought her to the ER today. Source of Information: Caregiver Exam Limitations: No Limitations History of Present Illness Date Seen by Provider: Mar 19, 2022 Time Seen by Provider: 07:45 Initial Comments Patient is a 56-year-old female with history of anxiety depression, polysubstance abuse who presents with increased anxiety and tearfulness complaints of not wanting to live after binging on crack cocaine for the past 2 days and spending all her money. She states her left her when he found out which she did. She states her family members do not have anything to do with her. She denies specific plan to harm herself or others. She is currently out of money and does not have means of purchasing more cocaine or alcohol. No complaints of chest pain palpitation shortness of breath. Patient complains of chronic abdominal pain secondary to hiatal hernia. Timing/Duration: 4-6 Hours Severity: Mild Modifying Factors: improves with Other Associated Systoms: Other Allergies and Home Medications Allergies Coded Allergies: diphenhydramine (Unverified Allergy, Unknown, 05/05/21) Patient Home Medication List Home Medication List Reviewed: Yes Acetaminophen (Tylenol Extra Strength) 500 Mg Tablet, 1,000 MG PO Q6H PRN for PAIN-MILD (1-4), (Reported) Entered as Reported by: GOLDIE SMITH on 03/09/21 0912 Acetaminophen/Diphenhydramine (Tylenol Pm Ex-Strength Caplet) 1 Each Tablet, 1-2 EACH PO HS PRN for SLEEP, (Reported) Entered as Reported by: KENNY XIAO on 03/16/21 1058 Albuterol Sulfate (Proair Hfa) 1 Puff Puff, 2 PUFF IH Q4H PRN for SHORTNESS OF BREATH, (Reported) Entered as Reported by: GOLDIE SMITH on 05/24/20 1023 Amoxicillin/Potassium Clav (Augmentin 875-125 Tablet) 1 Each Tablet, 1 EACH PO BID Prescribed by: POLA WEBB on 06/20/21 1303 Azithromycin (Azithromycin) 500 Mg Tablet, 500 MG PO DAILY Prescribed by: MIAN DILLARD MD on 09/23/21 1604 Benzonatate (Tessalon Perles) 100 Mg Capsule, 100 MG PO TID PRN for COUGH, (Reported) Entered as Reported by: GOLDIE SMITH on 03/09/21 0912 Colestipol HCl (Colestipol HCl) 1 Gm Tablet, 1 GM PO DAILY, (Reported) Entered as Reported by: GOLDIE SMITH on 03/09/21 0912 Cyclobenzaprine HCl (Cyclobenzaprine HCl) 10 Mg Tablet, 10 MG PO Q8H PRN for muscle spasm/chest wall pain Prescribed by: DIANE DELCID on 12/27/21 1812 Cyclobenzaprine HCl (Cyclobenzaprine HCl) 10 Mg Tablet, 10 MG PO Q8H PRN for SPASMS Prescribed by: LEIDY YIP on 01/28/22 1122 Escitalopram Oxalate (Escitalopram Oxalate) 20 Mg Tablet, 40 MG PO DAILY, (Reported) Entered as Reported by: GOLDIE SMITH on 05/24/20 1016 Fluconazole (Diflucan) 150 Mg Tablet, 150 MG PO ONCE PRN for one today and one in 7 days Prescribed by: POLA WEBB on 06/20/21 1330 Fluconazole (Fluconazole) 200 Mg Tablet, 200 MG PO DAILY Prescribed by: DIANE DELCID on 06/29/21 1144 Fluticasone Propion/Salmeterol (Fluticasone-Salmeterol 250-50) 1 Each Blst.w.dev, 1 PUFF INH DAILY, (Reported) Entered as Reported by: GOLDIE SMITH on 05/24/20 1023 Gabapentin (Gabapentin) 100 Mg Capsule, 100 MG PO HS, (Reported) Entered as Reported by: GOLDIE SMITH on 05/24/20 1016 Insulin Aspart (Novolog Flexpen) 300 Units/3 Ml Solution, 25 UNITS SC WM, (Reported) Entered as Reported by: KENNY XIAO on 03/16/21 1058 Insulin Degludec (Tresiba Flextouch U-200) 200 Unit/1 Ml Insuln.pen, 126 UNITS SQ DAILY, (Reported) Entered as Reported by: GOLDIE SMITH on 03/09/21 09 Ipratropium [place] (Atrovent Hfa) 12.9 Gm Aers, 2 PUFF IH DAILY PRN for SHORTNESS OF BREATH, (Reported) Entered as Reported by: GOLDIE SMITH on 03/09/21 09 Loratadine (Claritin) 10 Mg Tablet, 10 MG PO DAILY, (Reported) Entered as Reported by: GOLDIE SMITH on 05/24/20 1025 Menthol (Activice) 118 Ml [place], 1 APPLIC TP UD PRN for PAIN-BREAKTHROUGH, (Reported) Entered as Reported by: KENNY XIAO on 03/16/21 1058 Metformin HCl (Metformin HCl ER) 500 Mg Tab.er.24, 1,000 MG PO 1800, (Reported) Entered as Reported by: KENNY XIAO on 03/16/21 1058 Mirabegron (Myrbetriq) 25 Mg Tab.er.24h, 25 MG PO DAILY, (Reported) Entered as Reported by: GOLDIE SMITH on 05/24/20 1016 Montelukast Sodium (Singulair) 10 Mg Tablet, 10 MG PO DAILY, (Reported) Entered as Reported by: GOLDIE SMITH on 05/24/20 1024 Nebivolol HCl (Bystolic) 10 Mg Tab, 10 MG PO DAILY, (Reported) Entered as Reported by: GOLDIE SMITH on 03/09/21 09 Olanzapine (Olanzapine) 10 Mg Tablet, 10 MG PO HS, (Reported) Entered as Reported by: JOSHUA BUITRAGO on 03/24/19 1158 Promethazine HCl (Promethazine Tablet) 25 Mg Tablet, 12.5 MG PO Q6H PRN for NAUSEA/VOMITING, (Reported) Entered as Reported by: GOLDIE SMITH on 03/09/21 09 Roflumilast (Daliresp) 500 Mcg Tablet, 500 MCG PO DAILY, (Reported) Entered as Reported by: OGLDIE SMITH on 03/09/21 09 Semaglutide (Ozempic) 1 Mg/0.75 Ml Pen.injctr, 1 MG INJ SUNDAY, (Reported) Entered as Reported by: GOLDIE SMITH on 03/09/21932 Simethicone (Simethicone) 180 Mg Capsule, 180 MG PO UD PRN for STOMACH UPSET, (Reported) Entered as Reported by: GOLDIE SMITH on 03/09/21 0912 Tramadol HCl (Tramadol HCl) 50 Mg Tablet, 50 MG PO Q6H PRN for PAIN-MODERATE (5- 7), (Reported) Entered as Reported by: KENNY XIAO on 03/16/21 1058 Ziprasidone HCl (Ziprasidone HCl) 80 Mg Capsule, 160 MG PO HS, (Reported) Entered as Reported by: KENNY XIAO on 03/16/21 1058 Review of Systems Review of Systems Constitutional: see HPI EENTM: see HPI Respiratory: see HPI Cardiovascular: see HPI Gastrointestinal: see HPI Genitourinary: see HPI Musculoskeletal: see HPI Skin: see HPI Psychiatric/Neurological: See HPI Hematologic/Lymphatic: See HPI Immunological/Allergic: see HPI All Other Systems Reviewed Negative Unless Noted: No Past Qqytthw-Lxdtmk-Caawuz Hx Patient Social History Tobacco Use?: Yes Substance use?: Yes Substance type: Other Additional substance use comme: cocaine Alcohol Use?: No Pt feels they are or have been: No Immunizations Up To Date First/Initial COVID19 Vaccinat: OCTOBER 2020 Second COVID19 Vaccination [place]: OCTOBER 2020 Third COVID19 Vaccination Date: OCTOBER 2020 Seasonal Allergies Seasonal Allergies: No Past Medical History Surgery/Hospitalization HX: DM, COPD; hx of bladder cancer Surgeries: Yes Bladder Surgery, Gallbladder, Hysterectomy, Tonsillectomy Respiratory: Yes Asthma, COPD Currently Using CPAP: No Currently Using BIPAP: No Cardiac: Yes High Cholesterol, Hypertension 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 had recent axilla abscess) Recent Skin Changes Blood Disorders: Yes (HEP C) Adverse Reaction/Blood Tranf: No Family Medical History Heart Disease, Cancer, CVA, Other Conditions/Hx Physical Exam Vital Signs Capillary Refill : Less Than 3 Seconds Height, Weight, BMI Height: 5'7.00" Weight: 224lbs. 0.0oz. 101.327039qy; 29.00 BMI Method:Actual General Appearance: No Apparent Distress, Anxious (Tearful) Eyes: Bilateral Eye Normal Inspection, Bilateral Eye PERRL, Bilateral Eye EOMI HEENT: PERRL/EOMI Neck: Full Range of Motion, Normal Inspection Respiratory: Chest Non Tender Cardiovascular: Regular Rate, Rhythm Gastrointestinal: Non Tender, Soft Neurologic/Psychiatric: Alert, Oriented x3, No Motor/Sensory Deficits Focused Exam Sepsis Stage: Ruled Out Progress/Results/Core Measures Suspected Sepsis SIRS Temperature: Pulse: 110 Respiratory Rate: 16 Blood Pressure 127 /97 Mean: 107 Results/Orders My Orders Orders - JAZIEL WONG DO Acetaminophen Tablet (Tylenol Tablet) (03/19/22 08:30) Vital Signs/I&O Capillary Refill : Less Than 3 Seconds Blood Pressure Mean: 107 Departure Communication (Admissions) Patient does not express any specific plan or intent to kill himself or harm her self, rather she is emotionally despondent, feeling hopeless based upon her current situation. She feels more calm after talking to her current situation. She does currently have a family caseworker and attendant care provider and agrees to contact her family caseworker on Sunday for office follow-up. Impression Primary Impression: Substance abuse Additional Impression: Mood disorder Disposition: HOME, SELF-CARE Condition: Improved Departure-Patient Inst. Decision time for Depature: 08:39 Referrals: SACHIN MARQUEZ APRN (PCP) Primary Care Physician [facility] (Family) Primary Care Physician Patient Instructions: OUTPT MENTAL HE[facility] SERVICES Add. Discharge Instructions: Please avoid using all chemically controlled substances as this will increase your anxiety, depression and harmful thoughts. Avoid emotionally triggering events and behaviors and follow up with your family caseworker on Sunday. All discharge instructions reviewed with patient and/or family. Voiced understanding. JAZIEL WONG DO Mar 19, 2022 08:37
== END 2022-03-19 09:05 | disposition home or self-care (01) ==
LOC: EDUNIT# 07:37 → ER FS 07:39
DX: F31.9 Bipolar disorder, unspecified (principal); F19.10 Other psychoactive substance abuse, uncomplicated

== ENCOUNTER 2022-03-21 15:46 | Emergency (ER) | payer MEDICARE, MEDICAID ==
[2022-03-21 16:12] LABS: BASOPHILS # (AUTO) 0.1 10^3/uL (0.0-0.1); BASOPHILS % (AUTO) 1 % (0-10); EOSINOPHILS # (AUTO) 0.3 10^3/uL (0.0-0.3); EOSINOPHILS % (AUTO) 3 % (0-10); HEMATOCRIT 37 % (35-52); HEMOGLOBIN 12.1 g/dL (11.5-16.0); LYMPHOCYTES # (AUTO) 2.7 10^3/uL (1.0-4.0); LYMPHOCYTES % (AUTO) 32 % (12-44); MEAN CORPUSCULAR HEMOGLOBIN 28 pg (25-34); MEAN CORPUSCULAR HGB CONC 32 g/dL (32-36); MEAN CORPUSCULAR VOLUME 86 fL (80-99); MEAN PLATELET VOLUME 10.3 fL (9.0-12.2); MONOCYTES # (AUTO) 0.4 10^3/uL (0.0-1.0); MONOCYTES % (AUTO) 5 % (0-12); NEUTROPHILS % (AUTO) 59 % (42-75); PLATELET COUNT 269 10^3/uL (130-400); WHITE BLOOD COUNT 8.4 10^3/uL (4.3-11.0)
--- NOTE | 2022-03-21 16:12 | ED General ---
General Stated Complaint: SUCIDIAL IDEATION History of Present Illness Date Seen by Provider: Mar 21, 2022 Time Seen by Provider: 15:54 Initial Comments 56-year-old female with PMH of drug addiction/HTN/DM/Seizure Disorder/depression, is here with complaints of suicidal ideation. Patient's left her on Sunday which was 3 days ago, and took all her money, and told the police she was taking cocaine, the patient has been depressed and wants to kill herself by consuming all of her medications. Patient has not overdosed on any of her medications yet, but she feels like she wants to, and end her life. Patient states that she has never tried to commit suicide although she has had many thoughts about doing it in the past years off-and-on. Denies any somatic symptoms. Patient is teary and appears agitated. Allergies and Home Medications Allergies Coded Allergies: diphenhydramine (Unverified Allergy, Unknown, 05/05/21) Patient Home Medication List Home Medication List Reviewed: Yes Acetaminophen (Tylenol Extra Strength) 500 Mg Tablet, 1,000 MG PO Q6H PRN for PAIN-MILD (1-4), (Reported) Entered as Reported by: GOLDIE SMITH on 03/09/21 0912 Acetaminophen/Diphenhydramine (Tylenol Pm Ex-Strength Caplet) 1 Each Tablet, 1-2 EACH PO HS PRN for SLEEP, (Reported) Entered as Reported by: KENNY XIAO on 03/16/21 1058 Albuterol Sulfate (Proair Hfa) 1 Puff Puff, 2 PUFF IH Q4H PRN for SHORTNESS OF BREATH, (Reported) Entered as Reported by: GOLDIE SMITH on 05/24/20 1023 Amoxicillin/Potassium Clav (Augmentin 875-125 Tablet) 1 Each Tablet, 1 EACH PO BID Prescribed by: POLA WEBB on 06/20/21 1303 Azithromycin (Azithromycin) 500 Mg Tablet, 500 MG PO DAILY Prescribed by: MIAN DILLARD MD on 09/23/21 1604 Benzonatate (Tessalon Perles) 100 Mg Capsule, 100 MG PO TID PRN for COUGH, (Reported) Entered as Reported by: GOLDIE SMITH on 03/09/21 0912 Colestipol HCl (Colestipol HCl) 1 Gm Tablet, 1 GM PO DAILY, (Reported) Entered as Reported by: GOLDIE SMITH on 03/09/21 0912 Cyclobenzaprine HCl (Cyclobenzaprine HCl) 10 Mg Tablet, 10 MG PO Q8H PRN for muscle spasm/chest wall pain Prescribed by: DIANE DELCID on 12/27/21 1812 Cyclobenzaprine HCl (Cyclobenzaprine HCl) 10 Mg Tablet, 10 MG PO Q8H PRN for SPASMS Prescribed by: LEIDY YIP on 01/28/22 1122 Escitalopram Oxalate (Escitalopram Oxalate) 20 Mg Tablet, 40 MG PO DAILY, (Reported) Entered as Reported by: GOLDIE SMITH on 05/24/20 1016 Fluconazole (Diflucan) 150 Mg Tablet, 150 MG PO ONCE PRN for one today and one in 7 days Prescribed by: POLA WEBB on 06/20/21 1330 Fluconazole (Fluconazole) 200 Mg Tablet, 200 MG PO DAILY Prescribed by: DIANE DELCID on 06/29/21 1144 Fluticasone Propion/Salmeterol (Fluticasone-Salmeterol 250-50) 1 Each Blst.w.dev, 1 PUFF INH DAILY, (Reported) Entered as Reported by: GOLDIE SMITH on 05/24/20 1023 Gabapentin (Gabapentin) 100 Mg Capsule, 100 MG PO HS, (Reported) Entered as Reported by: GOLDIE SMITH on 05/24/20 1016 Insulin Aspart (Novolog Flexpen) 300 Units/3 Ml Solution, 25 UNITS SC WM, (Reported) Entered as Reported by: KENNY XIAO on 03/16/21 1058 Insulin Degludec (Tresiba Flextouch U-200) 200 Unit/1 Ml Insuln.pen, 126 UNITS SQ DAILY, (Reported) Entered as Reported by: GOLDIE SMITH on 03/09/21 0933 Ipratropium [place] (Atrovent Hfa) 12.9 Gm Aers, 2 PUFF IH DAILY PRN for SHORTNESS OF BREATH, (Reported) Entered as Reported by: GOLDIE SMITH on 03/09/21 0912 Loratadine (Claritin) 10 Mg Tablet, 10 MG PO DAILY, (Reported) Entered as Reported by: GOLDIE SMITH on 05/24/20 1025 Menthol (Activice) 118 Ml [place], 1 APPLIC TP UD PRN for PAIN-BREAKTHROUGH, (Reported) Entered as Reported by: KENNY XIAO on 03/16/21 1058 Metformin HCl (Metformin HCl ER) 500 Mg Tab.er.24, 1,000 MG PO 1800, (Reported) Entered as Reported by: KENNY XIAO on 03/16/21 1058 Mirabegron (Myrbetriq) 25 Mg Tab.er.24h, 25 MG PO DAILY, (Reported) Entered as Reported by: GOLDIE SMITH on 05/24/20 1016 Montelukast Sodium (Singulair) 10 Mg Tablet, 10 MG PO DAILY, (Reported) Entered as Reported by: GOLDIE SMITH on 05/24/20 1024 Nebivolol HCl (Bystolic) 10 Mg Tab, 10 MG PO DAILY, (Reported) Entered as Reported by: GOLDIE SMITH on 03/09/21 0933 Olanzapine (Olanzapine) 10 Mg Tablet, 10 MG PO HS, (Reported) Entered as Reported by: JOSHUA BUITRAGO on 03/24/19 1158 Promethazine HCl (Promethazine Tablet) 25 Mg Tablet, 12.5 MG PO Q6H PRN for NAUSEA/VOMITING, (Reported) Entered as Reported by: GOLDIE SMITH on 03/09/21 0912 Roflumilast (Daliresp) 500 Mcg Tablet, 500 MCG PO DAILY, (Reported) Entered as Reported by: GOLDIE SMITH on 03/09/21 0912 Semaglutide (Ozempic) 1 Mg/0.75 Ml Pen.injctr, 1 MG INJ SUNDAY, (Reported) Entered as Reported by: GOLDIE SMITH on 03/09/21 09 Simethicone (Simethicone) 180 Mg Capsule, 180 MG PO UD PRN for STOMACH UPSET, (Reported) Entered as Reported by: GOLDIE SMITH on 03/09/21 09 Tramadol HCl (Tramadol HCl) 50 Mg Tablet, 50 MG PO Q6H PRN for PAIN-MODERATE (5- 7), (Reported) Entered as Reported by: KENNY XIAO on 03/16/21 1058 Ziprasidone HCl (Ziprasidone HCl) 80 Mg Capsule, 160 MG PO HS, (Reported) Entered as Reported by: KENNY XIAO on 03/16/21 1058 Review of Systems Review of Systems Constitutional: no symptoms reported EENTM: no symptoms reported Respiratory: no symptoms reported Cardiovascular: no symptoms reported Gastrointestinal: no symptoms reported Genitourinary: no symptoms reported Musculoskeletal: no symptoms reported Skin: no symptoms reported Psychiatric/Neurological: Anxiety, Depressed, Emotional Problems Hematologic/Lymphatic: No Symptoms Reported Immunological/Allergic: no symptoms reported Past Vmiriww-Xvuzho-[place] Hx Immunizations Up To Date First/Initial COVID19 Vaccinat: OCTOBER 2020 Second COVID19 Vaccination [place]: OCTOBER 2020 Third COVID19 Vaccination Date: OCTOBER 2020 Seasonal Allergies Seasonal Allergies: No Past Medical History Surgery/Hospitalization HX: DM, COPD; hx of bladder cancer Surgeries: Yes Bladder Surgery, Gallbladder, Hysterectomy, Tonsillectomy Respiratory: Yes Asthma, COPD Currently Using CPAP: No Currently Using BIPAP: No Cardiac: Yes High Cholesterol, Hypertension 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 had recent axilla abscess) Recent Skin Changes Blood Disorders: Yes (HEP C) Adverse Reaction/Blood Tranf: No Family Medical History Heart Disease, Cancer, CVA, Other Conditions/Hx Physical Exam Vital Signs Vital Signs - First Documented 03/21/22 16:24 Temp 36.1 Pulse 106 Resp 20 B/P (MAP) 143/94 (110) Pulse Ox 96 O2 Delivery Room Air Capillary Refill : Height, Weight, BMI Height: 5'7.00" Weight: 224lbs. 0.0oz. [id number]; 29.00 BMI Method:Actual General Appearance: Anxious, Mild Distress HEENT: PERRL/EOMI Neck: Full Range of Motion Respiratory: Lungs Clear, Normal Breath Sounds Cardiovascular: Regular Rate, Rhythm Gastrointestinal: Normal Bowel Sounds, Non Tender, Soft Back: No CVA Tenderness Extremity: Normal Range of Motion Neurologic/Psychiatric: Alert, Oriented x3, No Motor/Sensory Deficits, Depressed Affect, Other (teary, suicidal ideations with a plan) Skin: Normal Color Lymphatic: No Adenopathy Progress/Results/Core Measures Suspected Sepsis SIRS Temperature: Pulse: Respiratory Rate: Laboratory Tests 03/21/22 16:04: White Blood Count 8.4 Blood Pressure / Mean: Laboratory Tests 03/21/22 16:04: Creatinine 0.86, Platelet Count 269, Total Bilirubin 0.2 Results/Orders Lab Results Laboratory Tests Test 03/21/22 16:04 03/21/22 16:05 03/21/22 16:14 Range/Units White Blood Count 8.4 4.3-11.0 10^3/uL Red Blood Count 4.36 3.80-5.11 10^6/uL Hemoglobin 12.1 11.5-16.0 g/dL Hematocrit 37 35-52 % Mean Corpuscular Volume 86 80-99 fL Mean Corpuscular Hemoglobin 28 25-34 pg Mean Corpuscular Hemoglobin Concent 32 32-36 g/dL Red Cell Distribution Width 14.8 H 10.0-14.5 % Platelet Count 269 130-400 10^3/uL Mean Platelet Volume 10.3 9.0-12.2 fL Immature Granulocyte % (Auto) 0 % Neutrophils (%) (Auto) 59 42-75 % Lymphocytes (%) (Auto) 32 12-44 % Monocytes (%) (Auto) 5 0-12 % Eosinophils (%) (Auto) 3 0-10 % Basophils (%) (Auto) 1 0-10 % Neutrophils # (Auto) 5.0 1.8-7.8 10^3/uL Lymphocytes # (Auto) 2.7 1.0-4.0 10^3/uL Monocytes # (Auto) 0.4 0.0-1.0 10^3/uL Eosinophils # (Auto) 0.3 0.0-0.3 10^3/uL Basophils # (Auto) 0.1 0.0-0.1 10^3/uL Immature Granulocyte # (Auto) 0.0 0.0-0.1 10^3/uL Sodium Level 140 135-145 MMOL/L Potassium Level 3.7 3.6-5.0 MMOL/L Chloride Level 103 98-107 MMOL/L Carbon Dioxide Level 23 21-32 MMOL/L Anion Gap 14 5-14 MMOL/L Blood Urea Nitrogen 6 L 7-18 MG/DL Creatinine 0.86 0.60-1.30 MG/DL Estimat Glomerular Filtration Rate 80 BUN/Creatinine Ratio 7 Glucose Level 176 H 70-105 MG/DL Calcium Level 9.1 8.5-10.1 MG/DL Corrected Calcium 9.2 8.5-10.1 MG/DL Total Bilirubin 0.2 0.1-1.0 MG/DL Aspartate Amino Transf (AST/SGOT) 14 5-34 U/L Alanine Aminotransferase (ALT/SGPT) 13 0-55 U/L Alkaline Phosphatase 108 40-136 U/L Total Protein 6.9 6.4-8.2 GM/DL Albumin 3.9 3.2-4.5 GM/DL Serum Alcohol < 10 <10 MG/DL SARS-CoV-2 RNA (RT-PCR) Not Detected Not Detecte Urine Color YELLOW Urine Clarity CLEAR Urine pH 6.5 5-9 Urine Specific [place] 1.010 L 1.016-1.022 Urine Protein NEGATIVE NEGATIVE Urine Glucose (UA) NEGATIVE NEGATIVE Urine Ketones NEGATIVE NEGATIVE Urine Nitrite NEGATIVE NEGATIVE Urine Bilirubin NEGATIVE NEGATIVE Urine Urobilinogen 0.2 < = 1.0 MG/DL Urine Leukocyte Esterase NEGATIVE NEGATIVE Urine RBC (Auto) NEGATIVE NEGATIVE Urine RBC NONE /HPF Urine WBC RARE /HPF Urine Squamous Epithelial Cells 0-2 /HPF Urine Crystals NONE /LPF Urine Bacteria NEGATIVE /HPF Urine Casts NONE /LPF Urine Mucus NEGATIVE /LPF Urine Culture Indicated NO Urine Opiates Screen NEGATIVE NEGATIVE Urine Oxycodone Screen NEGATIVE NEGATIVE Urine Methadone Screen NEGATIVE NEGATIVE Urine Propoxyphene Screen NEGATIVE NEGATIVE Urine Barbiturates Screen NEGATIVE NEGATIVE Ur Tricyclic Antidepressants Screen NEGATIVE NEGATIVE Urine Phencyclidine Screen NEGATIVE NEGATIVE Urine Amphetamines Screen NEGATIVE NEGATIVE Urine Methamphetamines Screen NEGATIVE NEGATIVE Urine Benzodiazepines Screen NEGATIVE NEGATIVE Urine Cocaine Screen POSITIVE H NEGATIVE Urine Cannabinoids Screen POSITIVE H NEGATIVE My Orders Orders - MIAN DILLARD MD Alcohol (03/21/22 15:52) Cbc With Automated Diff (03/21/22 15:52) Comprehensive Metabolic Panel (03/21/22 15:52) Drug Screen Stat (Urine) (03/21/22 15:52) Ua Culture If Indicated (03/21/22 15:52) Covid 19 Inhouse Test (03/21/22 15:52) Acetaminophen Tablet/Caplet (Tylenol T (03/21/22 19:15) Medications Given in ED Current Medications Medications Dose Ordered Sig/Yoselyn Route Start Time Stop Time Status Last Admin Dose Admin Acetaminophen 650 mg ONCE ONCE PO 03/21/22 19:15 03/21/22 19:16 DC 03/21/22 19:17 650 MG Vital Signs/I&O 03/21/22 03/21/22 16:24 19:17 Temp 36.1 36.1 Pulse 106 Resp 20 B/P (MAP) 143/94 (110) Pulse Ox 96 O2 Delivery Room Air Capillary Refill : Progress Note : Progress Note SUICIDAL IDEATION: - Labs unremarkable - UA: normal - Pt medically cleared for Psych screening MARIJUANA & COCAINE POSITIVE: - UDS is positive for marijuana and cocaine. - Pt states her last cocaine use was last Sunday Departure Impression Primary Impression: Suicidal ideation Disposition: 65 XFER TO PSYCH HOSP/UNIT Condition: Stable Transfer Transfer Reason: Exceeds level of care Time Spoke to Accepting Phy: 21:22 Transfer Progress Notes Accepting physician: Dr. Retana, to [facility] Method of Transfer: Departure-Patient Inst. Referrals: SACHIN MARQUEZ APRN (PCP) Primary Care Physician [facility] (Family) Primary Care Physician MIAN DILLARD MD Mar 21, 2022 16:12
[2022-03-21 16:46] LABS: AMPHETAMINE SCREEN, URINE NEGATIVE (NEGATIVE); BARBITURATE SCREEN URINE NEGATIVE (NEGATIVE); BENZODIAZEPINES SCREEN URINE NEGATIVE (NEGATIVE); CANNABINOID SCREEN, URINE POSITIVE (NEGATIVE); COCAINE SCREEN URINE POSITIVE (NEGATIVE); METHADONE STAT NEGATIVE (NEGATIVE); OPIATE SCREEN URINE NEGATIVE (NEGATIVE); OXYCODONE STAT NEGATIVE (NEGATIVE); PROPOXYPHENE STAT NEGATIVE (NEGATIVE); TRICYCLIC ANTIDEPRESSANTS SCRE NEGATIVE (NEGATIVE)
[2022-03-21 16:49] LABS: BILIRUBIN,URINE NEGATIVE (NEGATIVE); CLARITY,URINE CLEAR; COLOR,URINE YELLOW; GLUCOSE, URINE (UA) NEGATIVE (NEGATIVE); KETONES,URINE NEGATIVE (NEGATIVE); LEUKOCYTE ESTERASE ,URINE NEGATIVE (NEGATIVE); NITRITE,URINE NEGATIVE (NEGATIVE); PH,URINE 6.5 (5-9); PROTEIN,URINE NEGATIVE (NEGATIVE)
[2022-03-21 16:55] LABS: BILIRUBIN,TOTAL 0.2 MG/DL (0.1-1.0); BUN/CREATININE RATIO 7; CALCIUM 9.1 MG/DL (8.5-10.1); CARBON DIOXIDE 23 MMOL/L (21-32); CHLORIDE 103 MMOL/L (98-107); CREATININE SERUM 0.86 MG/DL (0.60-1.30); GFR ESTIMATED 80; GLUCOSE 176 MG/DL (70-105); POTASSIUM 3.7 MMOL/L (3.6-5.0); SODIUM 140 MMOL/L (135-145)
[2022-03-21 16:56] LABS: ALANINE AMINOTRANSFERASE 13 U/L (0-55); ALBUMIN 3.9 GM/DL (3.2-4.5); ALKALINE PHOSPHATASE 108 U/L (40-136); TOTAL PROTEIN 6.9 GM/DL (6.4-8.2)
[2022-03-21 17:15] LABS: BACTERIA,URINE NEGATIVE /HPF; SQUAMOUS EPITHELIAL CELL,UR 0-2 /HPF; WBC,URINE RARE /HPF
[2022-03-21] MEDS ORDERED: ACETAMINOPHEN 325 MG TABLET PO ONE (19:15)
[2022-03-21 23:30] VITALS: BP 134/97
== END 2022-03-21 23:30 ==
LOC: EDUNIT# 15:46 → ER FS 15:47
DX: R45.851 Suicidal ideations (principal); E11.9 Type 2 diabetes mellitus without complications; Z96.41 Presence of insulin pump (external) (internal); Z20.822 Contact with and (suspected) exposure to COVID-19; Z28.310 Unvaccinated for COVID-19; Z79.4 Long term (current) use of insulin
CPT/HCPCS: 36415; 80053; 80306; 81000; 85025; 87636; 99283; G0480; 80320

== ENCOUNTER 2022-04-02 16:05 | Emergency (ER) | payer MEDICARE, MEDICAID ==
[~2022-04-02] VITALS: Ht 170.2 cm; Wt 95.3 kg
[2022-04-02 16:14] VITALS: BP 117/81
[2022-04-02 16:20] LABS: BILIRUBIN,URINE NEGATIVE (NEGATIVE); CLARITY,URINE CLEAR; COLOR,URINE YELLOW; GLUCOSE, URINE (UA) NEGATIVE (NEGATIVE); KETONES,URINE NEGATIVE (NEGATIVE); LEUKOCYTE ESTERASE ,URINE NEGATIVE (NEGATIVE); NITRITE,URINE NEGATIVE (NEGATIVE); PH,URINE 6.5 (5-9); PROTEIN,URINE NEGATIVE (NEGATIVE)
[2022-04-02 16:23] LABS: BACTERIA,URINE TRACE /HPF
[2022-04-02 16:31] LABS: AMPHETAMINE SCREEN, URINE NEGATIVE (NEGATIVE); BARBITURATE SCREEN URINE NEGATIVE (NEGATIVE); BENZODIAZEPINES SCREEN URINE NEGATIVE (NEGATIVE); CANNABINOID SCREEN, URINE POSITIVE (NEGATIVE); COCAINE SCREEN URINE NEGATIVE (NEGATIVE); METHADONE STAT NEGATIVE (NEGATIVE); OPIATE SCREEN URINE NEGATIVE (NEGATIVE); OXYCODONE STAT NEGATIVE (NEGATIVE); PROPOXYPHENE STAT NEGATIVE (NEGATIVE); TRICYCLIC ANTIDEPRESSANTS SCRE POSITIVE (NEGATIVE)
[2022-04-02] MEDS ORDERED: ALPRAZolam 0.25 MG (XANAX) TAB PO STA (17:13)
[2022-04-02] MEDS ORDERED: ALPR0.254 PO (17:16)
--- NOTE | 2022-04-02 17:17 | ED General ---
General Chief Complaint: Psych/Social Disorder Stated Complaint: PSYCH EVAL Nursing Triage Note: Patient reports she has been crying for 3 days and can't stop crying. She states she wasn't able to pay her phone bill so she couldn't call the crisis line at [facility]. She also wants medication so she can stop crying. Patient states she is not suicidal or homicidal. Source of Information: Patient History of Present Illness Date Seen by Provider: Apr 02, 2022 Time Seen by Provider: 16:07 Initial Comments 56-year-old female presenting by law enforcement asking for phone access to call the crisis line at [facility]. She states that she is not suicidal or homicidal. She has only emergency 911 service on her phone on and had the police bring her to the emergency department. She wanted to use the phone to call the crisis line for help because she had been crying and anxious for the last 3 days. She had recently relapsed and used methamphetamines. When she did this her significant other left her and will not answer the phone. They also took her cat away as she was not at home to care for it. She is living in an empty apartment and states that she cries and is anxious. She would like some medicine to help with her anxiety Timing/Duration: 2-3 Days Severity: Moderate Modifying Factors: improves with Other (being home alone) Associated Systoms: No Chest Pain, No Cough, No Diaphoresis, No Fever/Chills, No Headaches, No Loss of Appetite, No Malaise, No Nausea/Vomiting, No Rash, No Seizure, No Shortness of Air, No Syncope, No Weakness Allergies and Home Medications Allergies Coded Allergies: diphenhydramine (Unverified Allergy, Unknown, 05/05/21) Patient Home Medication List Home Medication List Reviewed: Yes ALPRAZolam (ALPRAZolam) 0.25 Mg Tablet, 0.25 MG PO Q8H PRN for ANXIETY Prescribed by: DIANE DELCID on 04/02/22 1717 Acetaminophen (Tylenol Extra Strength) 500 Mg Tablet, 1,000 MG PO Q6H PRN for PAIN-MILD (1-4), (Reported) Entered as Reported by: GOLDIE SMITH on 03/09/21 0912 Acetaminophen/Diphenhydramine (Tylenol Pm Ex-Strength Caplet) 1 Each Tablet, 1-2 EACH PO HS PRN for SLEEP, (Reported) Entered as Reported by: KENNY XIAO on 03/16/21 1058 Albuterol Sulfate (Proair Hfa) 1 Puff Puff, 2 PUFF IH Q4H PRN for SHORTNESS OF BREATH, (Reported) Entered as Reported by: GOLDIE SMITH on 05/24/20 1023 Amoxicillin/Potassium Clav (Augmentin 875-125 Tablet) 1 Each Tablet, 1 EACH PO BID Prescribed by: POLA WEBB on 06/20/21 1303 Azithromycin (Azithromycin) 500 Mg Tablet, 500 MG PO DAILY Prescribed by: MIAN DILLARD MD on 09/23/21 1604 Benzonatate (Tessalon Perles) 100 Mg Capsule, 100 MG PO TID PRN for COUGH, (Reported) Entered as Reported by: GOLDIE SMITH on 03/09/21 0912 Colestipol HCl (Colestipol HCl) 1 Gm Tablet, 1 GM PO DAILY, (Reported) Entered as Reported by: GOLDIE SMITH on 03/09/21 0912 Cyclobenzaprine HCl (Cyclobenzaprine HCl) 10 Mg Tablet, 10 MG PO Q8H PRN for muscle spasm/chest wall pain Prescribed by: DIANE DELCID on 12/27/21 1812 Cyclobenzaprine HCl (Cyclobenzaprine HCl) 10 Mg Tablet, 10 MG PO Q8H PRN for SPASMS Prescribed by: LEIDY YIP on 01/28/22 1122 Escitalopram Oxalate (Escitalopram Oxalate) 20 Mg Tablet, 40 MG PO DAILY, (Re ported) Entered as Reported by: GOLDIE SMITH on 05/24/20 1016 Fluconazole (Diflucan) 150 Mg Tablet, 150 MG PO ONCE PRN for one today and one in 7 days Prescribed by: POLA WEBB on 06/20/21 1330 Fluconazole (Fluconazole) 200 Mg Tablet, 200 MG PO DAILY Prescribed by: DIANE DELCID on 06/29/21 1144 Fluticasone Propion/Salmeterol (Fluticasone-Salmeterol 250-50) 1 Each Blst.w.dev, 1 PUFF INH DAILY, (Reported) Entered as Reported by: GOLDIE SMITH on 05/24/20 1023 Gabapentin (Gabapentin) 100 Mg Capsule, 100 MG PO HS, (Reported) Entered as Reported by: GOLDIE SMITH on 05/24/20 1016 Insulin Aspart (Novolog Flexpen) 300 Units/3 Ml Solution, 25 UNITS SC WM, (Reported) Entered as Reported by: KENNY XIAO on 03/16/21 1058 Insulin Degludec (Tresiba Flextouch U-200) 200 Unit/1 Ml Insuln.pen, 126 UNITS SQ DAILY, (Reported) Entered as Reported by: GOLDIE SMITH on 03/09/21 0933 Ipratropium [place] (Atrovent Hfa) 12.9 Gm Aers, 2 PUFF IH DAILY PRN for SHORTNESS OF BREATH, (Reported) Entered as Reported by: GOLDIE SMITH on 03/09/21 09 Loratadine (Claritin) 10 Mg Tablet, 10 MG PO DAILY, (Reported) Entered as Reported by: GOLDIE SMITH on 05/24/20 1025 Menthol (Activice) 118 Ml [place], 1 APPLIC TP UD PRN for PAIN-BREAKTHROUGH, (Reported) Entered as Reported by: KENNY XIAO on 03/16/21 1058 Metformin HCl (Metformin HCl ER) 500 Mg Tab.er.24, 1,000 MG PO 1800, (Reported) Entered as Reported by: KENNY XIAO on 03/16/21 1058 Mirabegron (Myrbetriq) 25 Mg Tab.er.24h, 25 MG PO DAILY, (Reported) Entered as Reported by: GOLDIE SMITH on 05/24/20 1016 Montelukast Sodium (Singulair) 10 Mg Tablet, 10 MG PO DAILY, (Reported) Entered as Reported by: GOLDIE SMITH on 05/24/20 1024 Nebivolol HCl (Bystolic) 10 Mg Tab, 10 MG PO DAILY, (Reported) Entered as Reported by: GOLDIE SMITH on 03/09/21 0933 Olanzapine (Olanzapine) 10 Mg Tablet, 10 MG PO HS, (Reported) Entered as Reported by: JOSHUA BUITRAGO on 03/24/19 1158 Promethazine HCl (Promethazine Tablet) 25 Mg Tablet, 12.5 MG PO Q6H PRN for NAUSEA/VOMITING, (Reported) Entered as Reported by: GOLDIE SMITH on 03/09/21911 Roflumilast (Daliresp) 500 Mcg Tablet, 500 MCG PO DAILY, (Reported) Entered as Reported by: GOLDIE SMITH on 03/09/21911 Semaglutide (Ozempic) 1 Mg/0.75 Ml Pen.injctr, 1 MG INJ SUNDAY, (Reported) Entered as Reported by: GOLDIE SMITH on 03/09/21932 Simethicone (Simethicone) 180 Mg Capsule, 180 MG PO UD PRN for STOMACH UPSET, (Reported) Entered as Reported by: GOLDIE SMITH on 03/09/21911 Tramadol HCl (Tramadol HCl) 50 Mg Tablet, 50 MG PO Q6H PRN for PAIN-MODERATE (5- 7), (Reported) Entered as Reported by: KENNY XIAO on 03/16/21 105 Ziprasidone HCl (Ziprasidone HCl) 80 Mg Capsule, 160 MG PO HS, (Reported) Entered as Reported by: KENNY XIAO on 03/16/21 105 Review of Systems Review of Systems Constitutional: No chills, No fever EENTM: no symptoms reported Respiratory: no symptoms reported Cardiovascular: no symptoms reported Gastrointestinal: no symptoms reported Genitourinary: no symptoms reported Musculoskeletal: no symptoms reported Skin: no symptoms reported Psychiatric/Neurological: Anxiety Past Brcbjlm-Gftfkt-Cyadkp Hx Patient Social History Tobacco Use?: Yes Substance use?: Yes Substance type: Marijuana, Other Additional substance use comme: cocaine Alcohol Use?: Yes Pt feels they are or have been: No Immunizations Up To Date First/Initial COVID19 Vaccinat: OCTOBER 2020 Second COVID19 Vaccination [place]: OCTOBER 2020 Third COVID19 Vaccination Date: OCTOBER 2020 Seasonal Allergies Seasonal Allergies: No Past Medical History Surgery/Hospitalization HX: DM, COPD; hx of bladder cancer Surgeries: Yes Bladder Surgery, Gallbladder, Hysterectomy, Tonsillectomy Respiratory: Yes Asthma, COPD Currently Using CPAP: No Currently Using BIPAP: No Cardiac: Yes High Cholesterol, Hypertension 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 had recent axilla abscess) Recent Skin Changes Blood Disorders: Yes (HEP C) Adverse Reaction/Blood Tranf: No Family Medical History Heart Disease, Cancer, CVA, Other Conditions/Hx Physical Exam Vital Signs Vital Signs - First Documented 04/02/22 16:14 Temp 35.4 Pulse 112 Resp 18 B/P (MAP) 117/81 (93) Pulse Ox 97 O2 Delivery Room Air Capillary Refill : Less Than 3 Seconds Height, Weight, BMI Height: 5'7.00" Weight: 224lbs. 0.0oz. 101.599342mf; 32.00 BMI Method:Actual General Appearance: No Apparent Distress, Obese HEENT: PERRL/EOMI, Pharynx Normal Neurologic/Psychiatric: Alert, Oriented x3, Other (flat affect) Skin: Normal Color, Warm/Dry Progress/Results/Core Measures Suspected Sepsis SIRS Temperature: Pulse: 112 Respiratory Rate: 18 Blood Pressure 117 /81 Mean: 93 Results/Orders Lab Results Laboratory Tests Test 04/02/22 16:15 Range/Units Urine Color YELLOW Urine Clarity CLEAR Urine pH 6.5 5-9 Urine Specific [place] 1.015 L 1.016-1.022 Urine Protein NEGATIVE NEGATIVE Urine Glucose (UA) NEGATIVE NEGATIVE Urine Ketones NEGATIVE NEGATIVE Urine Nitrite NEGATIVE NEGATIVE Urine Bilirubin NEGATIVE NEGATIVE Urine Urobilinogen 0.2 < = 1.0 MG/DL Urine Leukocyte Esterase NEGATIVE NEGATIVE Urine RBC (Auto) NEGATIVE NEGATIVE Urine RBC NONE /HPF Urine WBC NONE /HPF Urine Squamous Epithelial Cells 10-25 H /HPF Urine Crystals NONE /LPF Urine Bacteria TRACE /HPF Urine Casts NONE /LPF Urine Mucus NEGATIVE /LPF Urine Culture Indicated NO Urine Opiates Screen NEGATIVE NEGATIVE Urine Oxycodone Screen NEGATIVE NEGATIVE Urine Methadone Screen NEGATIVE NEGATIVE Urine Propoxyphene Screen NEGATIVE NEGATIVE Urine Barbiturates Screen NEGATIVE NEGATIVE Ur Tricyclic Antidepressants Screen POSITIVE H NEGATIVE Urine Phencyclidine Screen NEGATIVE NEGATIVE Urine Amphetamines Screen NEGATIVE NEGATIVE Urine Methamphetamines Screen NEGATIVE NEGATIVE Urine Benzodiazepines Screen NEGATIVE NEGATIVE Urine Cocaine Screen NEGATIVE NEGATIVE Urine Cannabinoids Screen POSITIVE H NEGATIVE My Orders Orders - DIANE DELCID MD Ua Culture If Indicated (04/02/22 16:08) Drug Screen Stat (Urine) (04/02/22 16:08) Ekg Tracing (04/02/22 16:08) Bh Status Checks/Observation O Q15M (04/02/22 16:08) Alprazolam Tablet (Xanax Tablet) (04/02/22 17:13) Vital Signs/I&O 04/02/22 16:14 Temp 35.4 Pulse 112 Resp 18 B/P (MAP) 117/81 (93) Pulse Ox 97 O2 Delivery Room Air Capillary Refill : Less Than 3 Seconds Blood Pressure Mean: 93 Progress Note : Progress Note Initially placed orders for mental health screening to medically clear patient however since she was not suicidal, not homicidal and did not want mental health screening the orders were ultimately canceled other than a UA and UDS. UA was clear of infection or blood. UDS was positive for tricyclics that she is prescribed and THC. She was provided with a portable phone to be able to call the mental health crisis line and speak with them. She has an appointment at 9 AM for intensive outpatient therapy. We will try Xanax 0.25 mg and send a prescription for 1 pill every 8 hours as needed for anxiety. Prescribed 6 pills or not for 2 days if taken on a scheduled basis. Counseled to check with her regular provider tomorrow or mental health about how they would like to manage her anxiety and depression Departure Impression Primary Impression: Anxiety Additional Impressions: Adjustment reaction with anxiety and depression History of substance abuse Disposition: 01 HOME, SELF-CARE Condition: Stable Departure-Patient Inst. Decision time for Depature: 17:15 Referrals: SACHIN MARQUEZ APRN (PCP) Primary Care Physician [facility] (Family) Primary Care Physician Patient Instructions: Substance Use Disorder ED, Depression, Adult ED, Anxiety, Adult ED, Tips to Help You [place] in Uncertain Times Add. Discharge Instructions: Follow up with your regular provider and mental health tomorrow, SundayApril 03 to see how they want to continue to manage your anxiety and depression All discharge instructions reviewed with patient and/or family. Voiced understanding. Scripts ALPRAZolam (ALPRAZolam) 0.25 Mg Tablet 0.25 MG PO Q8H PRN for ANXIETY for 2 Days, #6 TAB 0 Refills Prov: ENYART,DIANE E MD 04/02/22 DIANE DELCID MD Apr 02, 2022 17:17
== END 2022-04-02 17:35 | disposition home or self-care (01) ==
LOC: EDUNIT# 16:05 → ER FS 16:06
DX: F43.23 Adjustment disorder with mixed anxiety and depressed mood (principal); E66.9 Obesity, unspecified; E11.9 Type 2 diabetes mellitus without complications; Z86.59 Personal history of other mental and behavioral disorders; Z72.0 Tobacco use; Z96.41 Presence of insulin pump (external) (internal); Z68.32 Body mass index [BMI] 32.0-32.9, adult; Z79.4 Long term (current) use of insulin
CPT/HCPCS: 80306; 81000; 99283

== ENCOUNTER 2022-05-04 15:49 | Emergency (ER) | payer MEDICARE, MEDICAID ==
[~2022-05-04] VITALS: Ht 170.2 cm; Wt 90.3 kg
[~2022-05-04 15:49] MED LIST changes: +ALPR0.254 PO
[2022-05-04] MEDS ORDERED: RT-ALBUTEROL/IPRATROPIUM 3 ML (DUONEB) VIAL INH STA (16:30)
[2022-05-04] MEDS ORDERED: KETOROLAC 60 MG/2 ML VIAL IM STA (16:30)
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
[2022-05-04 16:35] LABS: BASOPHILS # (AUTO) 0.1 10^3/uL (0.0-0.1); BASOPHILS % (AUTO) 1 % (0-10); EOSINOPHILS # (AUTO) 0.1 10^3/uL (0.0-0.3); EOSINOPHILS % (AUTO) 2 % (0-10); HEMATOCRIT 35 % (35-52); HEMOGLOBIN 11.2 g/dL (11.5-16.0); LYMPHOCYTES # (AUTO) 2.2 10^3/uL (1.0-4.0); LYMPHOCYTES % (AUTO) 34 % (12-44); MEAN CORPUSCULAR HEMOGLOBIN 28 pg (25-34); MEAN CORPUSCULAR HGB CONC 32 g/dL (32-36); MEAN CORPUSCULAR VOLUME 87 fL (80-99); MEAN PLATELET VOLUME 10.5 fL (9.0-12.2); MONOCYTES # (AUTO) 0.5 10^3/uL (0.0-1.0); MONOCYTES % (AUTO) 8 % (0-12); NEUTROPHILS # (AUTO) 3.5 10^3/uL (1.8-7.8); NEUTROPHILS % (AUTO) 55 % (42-75); PLATELET COUNT 207 10^3/uL (130-400); WHITE BLOOD COUNT 6.3 10^3/uL (4.3-11.0)
[2022-05-04 16:36] LABS: BILIRUBIN,URINE NEGATIVE (NEGATIVE); CLARITY,URINE CLEAR; COLOR,URINE YELLOW; GLUCOSE, URINE (UA) NEGATIVE (NEGATIVE); KETONES,URINE NEGATIVE (NEGATIVE); LEUKOCYTE ESTERASE ,URINE TRACE (NEGATIVE); NITRITE,URINE NEGATIVE (NEGATIVE); PH,URINE 6.5 (5-9); PROTEIN,URINE NEGATIVE (NEGATIVE)
[2022-05-04 16:45] LABS: BACTERIA,URINE TRACE /HPF; YEAST,URINE FEW BUDDING /HPF
[2022-05-04 16:46] LABS: AMPHETAMINE SCREEN, URINE NEGATIVE (NEGATIVE); BARBITURATE SCREEN URINE NEGATIVE (NEGATIVE); BENZODIAZEPINES SCREEN URINE NEGATIVE (NEGATIVE); CANNABINOID SCREEN, URINE NEGATIVE (NEGATIVE); COCAINE SCREEN URINE NEGATIVE (NEGATIVE); METHADONE STAT NEGATIVE (NEGATIVE); OPIATE SCREEN URINE NEGATIVE (NEGATIVE); OXYCODONE STAT NEGATIVE (NEGATIVE); PROPOXYPHENE STAT NEGATIVE (NEGATIVE); TRICYCLIC ANTIDEPRESSANTS SCRE NEGATIVE (NEGATIVE)
[2022-05-04 16:47] LABS: ALANINE AMINOTRANSFERASE 10 U/L (0-55); ALBUMIN 3.8 GM/DL (3.2-4.5); ALKALINE PHOSPHATASE 128 U/L (40-136); BILIRUBIN,TOTAL 0.2 MG/DL (0.1-1.0); BUN/CREATININE RATIO 10; CALCIUM 9.5 MG/DL (8.5-10.1); CARBON DIOXIDE 25 MMOL/L (21-32); CHLORIDE 98 MMOL/L (98-107); CREATININE SERUM 0.81 MG/DL (0.60-1.30); GFR ESTIMATED 86; GLUCOSE 266 MG/DL (70-105); SODIUM 136 MMOL/L (135-145); TOTAL PROTEIN 6.6 GM/DL (6.4-8.2)
[2022-05-04 16:48] LABS: ACETAMINOPHEN < 10 UG/ML (10-30); SALICYLATE < 0.3 MG/DL (5.0-20.0)
[2022-05-04 18:22] VITALS: BP 144/76
== END 2022-05-04 18:22 | disposition home or self-care (01) ==
LOC: EDUNIT# 15:49 → ER FS 15:51
DX: F43.22 Adjustment disorder with anxiety (principal); F32.A Depression, unspecified; E11.9 Type 2 diabetes mellitus without complications; F17.290 Nicotine dependence, other tobacco product, uncomplicated; Z79.4 Long term (current) use of insulin
CPT/HCPCS: 36415; 80053; 80306; 81000; 85025; 99283; G0480 ×3; 80320; 80329